=== PATIENT | male | born 1945 | race Caucasian/White ===

== ENCOUNTER 2017-01-15 20:36 | Inpatient (IN) | payer MEDICARE ==
[~2017-01-15] VITALS: Ht 177.8 cm; Wt 126.8 kg
--- NOTE | 2017-01-15 21:11 | PHYS DOC ---
Past Medical History Past Medical History: CAD, Diabetes-Type II, High Cholesterol, Heart Disease Additional Past Medical Histor: Crohns; sleep apnea Past Surgical History: Angioplasty, Appendectomy, Cholecystectomy Additional Past Surgical Histo: bowel resection Smoking: Chew Adult General Chief Complaint Chief Complaint: SYNCOPE HPI HPI Patient is a 71 year old male who presents with syncopal episode. He was at home sitting in his chair when he got up. He felt dizzy, sat back down again and then Got up and "passed out" per his . He fell completely forward. When EMS arrived his oxygen was 79-80% on room air; GCS 3 but pulse present. Rhythm strip was unremarkable. BP 124/70 and Dstick 116. They bagged him initially and then he responded. He has amnesia of the event. Earlier today he felt fine. He is under treatment for "pneumonia" and was started on Levaquin 01/08/17. He was seen today in follow up and the Levaquin was renewed for another 7 days. He is on an aspirin; no anticoagulants. He denies any chest pain prior, no SOA, no abdominal or back pain or headache. Since the syncopal event with fall he now has back pain. Mid to lower back. No injury to arms or legs. No recent travel. He has Crohns which he states has been well controlled. No blood in stool or urine. His PCP is Dr Artis. Review of Systems Review of Systems Constitutional: Denies fever or chills Eyes: Denies change in visual acuity, redness, or eye pain HENT: Denies nasal congestion or sore throat Respiratory: POS cough (under treatment) but no increase in shortness of breath Cardiovascular: No chest pain GI: Denies abdominal pain, nausea, vomiting, bloody stools; chronic diarrhea with no change from baseline (secondary to Crohns') : Denies dysuria or hematuria Musculoskeletal: Denies back pain or joint pain Integument: Denies rash or skin lesions Neurologic: Denies headache, focal weakness or sensory changes; POS syncope Current Medications Current Medications Current Medications Medications (Trade) Dose Ordered Sig/Jose Start Time Stop Time Status Last Admin Dose Admin Fentanyl Citrate (Fentanyl 2ml Vial) 50 mcg 1X ONCE 01/15/17 22:00 01/15/17 22:01 DC 01/15/17 21:52 50 MCG Heparin Sodium (Porcine) (Heparin Sodium) 1,750 unit PRN Q6HRS PRN 01/15/17 23:15 Heparin Sodium/ Dextrose 500 ml @ 0 mls/hr CONT PRN 01/15/17 23:15 Info (Anti-Coagulation Monitoring By Pharmacy) 1 each PRN DAILY PRN 01/15/17 23:30 Piperacillin Sod/ Tazobactam Sod 3.375 gm/Dextrose 50 ml @ 100 mls/hr 1X ONCE 01/15/17 23:30 01/15/17 23:59 Sodium Chloride 1,000 ml @ 150 mls/hr 1X ONCE 01/15/17 22:00 01/16/17 04:39 01/15/17 22:31 150 MLS/HR Warfarin Sodium (Coumadin Per Pharmacy) 1 each PRN DAILY PRN 01/15/17 23:15 Allergies Allergies Allergies Coded Allergies Type Severity Reaction Last Updated Verified azathioprine Allergy Intermediate n/v 01/15/17 Yes furosemide Allergy Intermediate "i dont know" 01/15/17 Yes infliximab Allergy Intermediate rash 01/15/17 Yes Physical Exam Physical Exam Constitutional: Well developed, well nourished, no acute distress, non-toxic appearance. HENT: Normocephalic, faint abrasion to left forehead, bilateral external ears normal, oropharynx moist, no oral exudates, nose normal. Hard of hearing. Eyes: PERRLA, EOMI, conjunctiva normal, no discharge. Neck: Normal range of motion, no tenderness, supple, no stridor. Cardiovascular:Heart rate regular rhythm, no murmur Lungs & Thorax: Bilateral breath sounds clear to auscultation Abdomen: Bowel sounds normal, soft, no tenderness, no masses, no pulsatile masses. Skin: Warm, dry, no erythema, no rash. Back: POS tenderness to lower thoracic and lumbar area, no CVA tenderness. Extremities: No tenderness, no cyanosis, no clubbing, ROM intact, no edema. Neurologic: Alert and oriented X 3, normal motor function, normal sensory function, no focal deficits noted. Current Patient Data Vital Signs Vital Signs Date Time Temp Pulse Resp B/P (MAP) Pulse Ox O2 Delivery O2 Flow Rate FiO2 01/15/17 21:52 16 95 Room Air 01/15/17 20:38 97.7 55 112/57 (75) 2.0 97.7 Lab Values Laboratory Tests Test 01/15/17 20:40 01/15/17 21:50 White Blood Count 13.7 x10^3/uL (4.0-11.0) H Red Blood Count 3.32 x10^6/uL (4.30-5.70) L Hemoglobin 10.7 g/dL (13.0-17.5) L Hematocrit 33.6 % (39.0-53.0) L Mean Corpuscular Volume 101 fL (79-100) H Mean Corpuscular Hemoglobin 32 pg (25-35) Mean Corpuscular Hemoglobin Concent 32 g/dL (31-37) Red Cell Distribution Width 15.7 % (11.5-14.5) H Platelet Count 237 x10^3/uL (140-400) Neutrophils (%) (Auto) 69 % (31-73) Lymphocytes (%) (Auto) 16 % (24-48) L Monocytes (%) (Auto) 11 % (0-9) H Eosinophils (%) (Auto) 3 % (0-3) Basophils (%) (Auto) 1 % (0-3) Neutrophils # (Auto) 9.4 x10^3uL (1.8-7.7) H Lymphocytes # (Auto) 2.2 x10^3/uL (1.0-4.8) Monocytes # (Auto) 1.5 x10^3/uL (0.0-1.1) H Eosinophils # (Auto) 0.4 x10^3/uL (0.0-0.7) Basophils # (Auto) 0.1 x10^3/uL (0.0-0.2) Prothrombin Time 14.9 SEC (11.7-14.0) H Prothrombin Time INR 1.2 (0.8-1.1) H D-Dimer (Lorena) 8.64 ug/mlFEU (0.00-0.50) H Sodium Level 139 mmol/L (136-145) Potassium Level 3.9 mmol/L (3.5-5.1) Chloride Level 103 mmol/L (98-107) Carbon Dioxide Level 20 mmol/L (21-32) L Anion Gap 16 (6-14) H Blood Urea Nitrogen 23 mg/dL (8-26) Creatinine 2.4 mg/dL (0.7-1.3) H Estimated GFR (Cockcroft-Gault) 26.8 BUN/Creatinine Ratio 10 (6-20) Glucose Level 109 mg/dL (70-99) H Calcium Level 8.5 mg/dL (8.5-10.1) Magnesium Level 1.5 mg/dL (1.8-2.4) L Total Bilirubin 0.5 mg/dL (0.2-1.0) Aspartate Amino Transferase (AST) 26 U/L (15-37) Alanine Aminotransferase (ALT) 33 U/L (16-63) Alkaline Phosphatase 81 U/L (46-116) Creatine Kinase 145 U/L (39-308) Creatine Kinase MB (Mass) 2.8 ng/mL (0.0-3.6) Creatine Kinase MB Relative Index 1.9 % (0-4) Troponin I Quantitative < 0.017 ng/mL (0.000-0.055) KJ-Ikv-D-Type Natriuretic Peptide 4474 pg/mL (0-124) H Total Protein 7.1 g/dL (6.4-8.2) Albumin 3.1 g/dL (3.4-5.0) L Albumin/Globulin Ratio 0.8 (1.0-1.7) L Lipase 60 U/L (73-393) L Ethyl Alcohol Level 134 mg/dL (0-10) H Lactic Acid Level 7.0 mmol/L (0.4-2.0) *H Laboratory Tests 01/15/17 20:40 Laboratory Tests 01/15/17 20:40 EKG EKG EKG interpreted by myself at 1 PM shows irregular rhythm, no definitive p waves noted, nonspecific ST changes. No ST elevation. no prior EKG to compare to. Radiology/Procedures Radiology/Procedures CXR interpreted by myself at 2135 PM with enlarged cardiac silhouette, elevated right hemidiaphragm, atelectasis bibasilar. Increased markings Right upper lobe and nodule noted (large) left lower lobe. NO prior CXR available here. [facility] [address] [place] [address] IMAGING REPORT Signed PATIENT: JESSE MCGEE ACCOUNT: [id number] : 1945 LOCATION: ER AGE: 71 SEX: M EXAM STATUS: REG ER ORD. PHYSICIAN: GURMEET BRODY MD REASON: syncope w fall PROCEDURE: CT HEAD AND CERVICAL SPINE WO CT HEAD AND CERVICAL SPINE WO, CT THORACIC SPINE WO CONTRAST, CT LUMBAR SPINE WO CONTRAST Clinical indications: SYNCOPE, FALL, history of HTN, neck pain and back pain. NONCONTRAST HEAD CT Technique: Noncontrast axial cross sectional scanning of the head was performed. PQRS compliance Statement One or more of the following individualized dose reduction techniques were utilized for these studies: 1. Automated exposure control 2. Adjustment of the mA and/or kV according to patient size 3. Use of iterative reconstruction technique Findings: No acute intracranial hemorrhage or midline shift or mass-effect or hydrocephalus or extra-axial fluid collection is seen. No focal hypodense area or sulci effacement is seen to indicate an acute infarct or edema radiographically. No skull fracture or pneumocephalus is seen. No opacification of the mastoid sinuses or the paranasal sinuses is seen. The maxillary sinuses are not completely seen in this study. Impression: No acute intracranial abnormality is seen. CERVICAL SPINE CT WITHOUT CONTRAST TECHNIQUE: Noncontrast helical CT scanning of the cervical spine was performed. Multiplanar 2-D reconstructions were generated. FINDINGS: No acute fracture or discitis or osteolytic process or anterolisthesis is seen. There are osteosclerotic lesions involving C4 and C5 and T1. Osseous metastatic disease is a possibility. IMPRESSION: No acute fracture. Osteosclerotic lesions which may represent osteosclerotic metastatic disease. Prostate cancer is a possibility. THORACIC SPINE CT WITHOUT CONTRAST TECHNIQUE: Noncontrast helical CT scanning of the thoracic spine was performed. Multiplanar 2-D reconstructions were generated. FINDINGS: There is a mild wedge compression fracture of T9. There is mild compression deformity of the superior endplate of T11 and T12. Hemangioma of T8 is seen. Degenerative cystic changes are evident. No osteolytic process or discitis is seen. IMPRESSION: Mild compression deformities of T9 and T11 and T12 of indeterminate age. LUMBAR SPINE CT WITHOUT CONTRAST TECHNIQUE: Noncontrast helical CT scanning of the lumbar spine was performed. Multiplanar 2-D reconstructions were generated. FINDINGS: There is diffuse osteolytic infiltrative process of the L3 vertebrae including the vertebral body and pedicles and the lamina on both sides. There is soft tissue extension extending into the spinal canal with severe narrowing of the spinal canal. This is consistent with osseous metastatic disease. No vertical compression deformity is seen here however. Multiple radiolucencies of the lumbar spine are seen. This could be due to osteolytic metastatic disease or diffuse osteoporosis. IMPRESSION: Diffuse infiltrative process of the L3 vertebrae consistent with osteolytic metastatic disease. There is circumferential involvement of the spinal canal at this level with severe spinal canal stenosis from tumor infiltration of the spinal canal. No loss of vertical height of this vertebral body is seen however. Multiple radiolucencies of the lumbar spine are seen which could be due to smaller osteolytic metastatic lesions or generalized osteoporosis. Electronically signed by: Bill Gutierrez MD (01/15/2017 10:45 PM) [facility] [id number] DICTATED and SIGNED BY: BILL GUTIERREZ MD DATE: 01/15/172229 CC: GURMEET BRODY MD; JINNY ARTIS MD ~ Course & Med Decision Making Course & Med Decision Making Met patient upon arrival by EMS to room 4. Discussed the initial findings by EMS. Patient presently is alert in no respiratory distress. Considerations for differential include cardiac event,pulmonary etiology including pulmonary emboli , neurologic event including subarachnoid hemorrhage and intracerebral bleed. His back pain appears to occurred after the syncope and fall. He's had prior compression fractures and will CT to make sure he has not cause further damage or injury. He has no neurologic findings at this time however. Fentanyl IV for back pain. At 5 PM: WBC elevated; Lactic acid and blood cultures added. NS at 150 cc/hr pending cardiac status evaluation. At [address]; pending results. D dimer is very elevated; due to elevated Cr will require VQ imaging in am. Will lovenox pending CT clearance on head and spine. At 2300 PM: CT results back. Metastatic disease of L3; UNKNOWN PRIMARY. Will admit for further work up and evaluation. CT head without contrast negative. Updated patient and family. Spoke w Dr Velasquez; prefers heparinization as CR is elevated. VQ in am. PSA added as etiology may be prostate. Lung primary highly likely due to smoking history. At 2315 PM: Lab called with Lactic acid 7.0. Blood cultures pending. He has been getting IV fluids. Zosyn IV added as he has been on Levaquin for one week outpatient. Lactic acidosis may be multifactorial. He also drinks ethanol and level elevated here which can cause a lactic acidosis. I have spoken with the patient and/or caregivers. I have explained the patient' s condition, diagnosis and treatment plan based on the information available to me at this time. I have answered the patient's and/or caregiver's questions and addressed any concerns. The patient and/or caregivers have as good an understanding of the patient's diagnosis, condition and treatment plan as can be expected at this point. The patient has been stabilized within the capability of the emergency department. The patient will be transported for further care and management or will be moved to an observation or inpatient service. I have communicated with the staff or medical practitioner taking over this patient's care. I have assessed this patient clinically and believe that their condition requires admission to the hospital. After consulting the admitting physician about this case, they have asked that I admit this patient to their service as an inpatient based on the clinical presentation and my impression. PERC Criteria Assessment: Age > 50: YES HR > 100: No 02 < 95%: YES (initially) H/o DVT/PE: No Recent trauma/surgery: No Hemoptysis No Exogenous Estrogen: No Unilateral Leg swelling: No Pretest probability > 15%: YES PERC rule not satisfied RAFA score for NSTEMI: Age 65: No=0; Yes=1 3 CAD risk factors: Family history of CAD, hypertension, hypercholesterolemia, diabetes, family history of CAD, or current smoker: No=0; Yes=1 Known CAD (stenosis 50%: No=0; Yes=1 ASA use in past 7 days: No=0; Yes=1 Severe angina ( 2 episodes in 24 hrs): No=0; Yes=[address] changes 0.5m: No=0; Yes=1 Positive cardiac marker: No=0; Yes=1 Score: 4 I spent approximately 30 minutes working and engaged directly in the patient care providing critical care evaluation this includes but not limited to time spent engaged in work directly related to the individual patients care. I spent time at the bedside, reviewing test results, discussing the case with staff, documenting the medical record and time spent with EMS discussing specific treatment issues when the patient presented and during his evaluation. This includes any discussion and updates with family members and/or patient. Roro Disclaimer Dragon Disclaimer This electronic medical record was generated, in whole or in part, using a voice recognition dictation system. Departure Departure Impression: Primary Impression: Syncope Additional Impressions: Hypoxia Elevated d-dimer Lactic acidosis Osteolytic lesion due to metastasis with unknown primary site Elevated serum creatinine Disposition: ADMITTED INPATIENT Admitting Physician: Meghan Velasquez Condition: GUARDED Referrals: JINNY ARTIS MD (PCP) Problem Qualifiers Primary Impression: Syncope Syncope type: unspecified Qualified Codes: R55 - Syncope and collapse GURMEET BRODY MD Jan 15, 2017 21:11
[2017-01-15] MEDS ORDERED: ATOR40TA59 PO (21:19)
[2017-01-15] MEDS ORDERED: METF-620 PO (21:19)
[2017-01-15] MEDS ORDERED: METO-247 PO (21:19)
[2017-01-15] MEDS ORDERED: GABA600T2 PO (21:20)
[2017-01-15] MEDS ORDERED: CLON0.1T PO (21:20)
[2017-01-15] MEDS ORDERED: FOLI1TAB16 PO (21:20)
[2017-01-15] MEDS ORDERED: CHOL4POW2 PO (21:21)
[2017-01-15] MEDS ORDERED: OMEP40CA5 PO (21:22)
[2017-01-15] MEDS ORDERED: ADAL40PE SQ (21:22)
[2017-01-15] MEDS ORDERED: B12/1TAB3 PO (21:22)
[2017-01-15] MEDS ORDERED: ASPI325T8 PO (21:24)
[2017-01-15] MEDS ORDERED: CHOL10003 PO (21:24)
[2017-01-15] MEDS ORDERED: HYDR1TAB14 PO (21:24)
[2017-01-15] MEDS ORDERED: LOPE2CAP88 PO (21:25)
[2017-01-15 21:27] LABS: BASO # 0.1 x10^3/uL (0.0-0.2); BASO % 1 % (0-3); EOS % 3 % (0-3); HEMATOCRIT 33.6 % (39.0-53.0); HEMOGLOBIN 10.7 g/dL (13.0-17.5); LYMPH # 2.2 x10^3/uL (1.0-4.8); LYMPH % 16 % (24-48); MEAN CORPUSCULAR HEMOGLOBIN 32 pg (25-35); MEAN CORPUSCULAR HGB CONC 32 g/dL (31-37); MEAN CORPUSCULAR VOLUME 101 fL (79-100); MONO % 11 % (0-9); NEUT % 69 % (31-73); PLATELET COUNT 237 x10^3/uL (140-400); RED BLOOD COUNT 3.32 x10^6/uL (4.30-5.70); RED CELL DISTRIBUTION WIDTH 15.7 % (11.5-14.5); WHITE BLOOD COUNT 13.7 x10^3/uL (4.0-11.0)
[2017-01-15 21:39] LABS: INR 1.2 (0.8-1.1); PROTHROMBIN TIME PATIENT 14.9 SEC (11.7-14.0)
[2017-01-15 21:43] LABS: CALCIUM 8.5 mg/dL (8.5-10.1); CREATININE 2.4 mg/dL (0.7-1.3); GFR 26.8; POTASSIUM 3.9 mmol/L (3.5-5.1)
[2017-01-15 21:48] LABS: ALBUMIN 3.1 g/dL (3.4-5.0); ALBUMIN/GLOBULIN RATIO 0.8 (1.0-1.7); MAGNESIUM 1.5 mg/dL (1.8-2.4); TOTAL BILIRUBIN 0.5 mg/dL (0.2-1.0); TOTAL PROTEIN 7.1 g/dL (6.4-8.2)
[2017-01-15 21:59] LABS: CKMB MASS 2.8 ng/mL (0.0-3.6)
[2017-01-15] MEDS ORDERED: fentaNYL PF VIAL 100 MCG/2 ML VIAL IV ONE (22:00)
[2017-01-15] MEDS ORDERED: IV NORMAL SALINE 1000ML BAG 1,000 ML IV ONE ×2 (22:00→23:45)
--- NOTE | 2017-01-15 22:49 | RAD ---
CT HEAD AND CERVICAL SPINE WO, CT THORACIC SPINE WO CONTRAST, CT LUMBAR SPINE WO CONTRAST Clinical indications: SYNCOPE, FALL, history of HTN, neck pain and back pain. NONCONTRAST HEAD CT Technique: Noncontrast axial cross sectional scanning of the head was performed. PQRS compliance Statement One or more of the following individualized dose reduction techniques were utilized for these studies: 1. Automated exposure control 2. Adjustment of the mA and/or kV according to patient size 3. Use of iterative reconstruction technique Findings: No acute intracranial hemorrhage or midline shift or mass-effect or hydrocephalus or extra-axial fluid collection is seen. No focal hypodense area or sulci effacement is seen to indicate an acute infarct or edema radiographically. No skull fracture or pneumocephalus is seen. No opacification of the mastoid sinuses or the paranasal sinuses is seen. The maxillary sinuses are not completely seen in this study. Impression: No acute intracranial abnormality is seen. CERVICAL SPINE CT WITHOUT CONTRAST TECHNIQUE: Noncontrast helical CT scanning of the cervical spine was performed. Multiplanar 2-D reconstructions were generated. FINDINGS: No acute fracture or discitis or osteolytic process or anterolisthesis is seen. There are osteosclerotic lesions involving C4 and C5 and T1. Osseous metastatic disease is a possibility. IMPRESSION: No acute fracture. Osteosclerotic lesions which may represent osteosclerotic metastatic disease. Prostate cancer is a possibility. THORACIC SPINE CT WITHOUT CONTRAST TECHNIQUE: Noncontrast helical CT scanning of the thoracic spine was performed. Multiplanar 2-D reconstructions were generated. FINDINGS: There is a mild wedge compression fracture of T9. There is mild compression deformity of the superior endplate of T11 and T12. Hemangioma of T8 is seen. Degenerative cystic changes are evident. No osteolytic process or discitis is seen. IMPRESSION: Mild compression deformities of T9 and T11 and T12 of indeterminate age. LUMBAR SPINE CT WITHOUT CONTRAST TECHNIQUE: Noncontrast helical CT scanning of the lumbar spine was performed. Multiplanar 2-D reconstructions were generated. FINDINGS: There is diffuse osteolytic infiltrative process of the L3 vertebrae including the vertebral body and pedicles and the lamina on both sides. There is soft tissue extension extending into the spinal canal with severe narrowing of the spinal canal. This is consistent with osseous metastatic disease. No vertical compression deformity is seen here however. Multiple radiolucencies of the lumbar spine are seen. This could be due to osteolytic metastatic disease or diffuse osteoporosis. IMPRESSION: Diffuse infiltrative process of the L3 vertebrae consistent with osteolytic metastatic disease. There is circumferential involvement of the spinal canal at this level with severe spinal canal stenosis from tumor infiltration of the spinal canal. No loss of vertical height of this vertebral body is seen however. Multiple radiolucencies of the lumbar spine are seen which could be due to smaller osteolytic metastatic lesions or generalized osteoporosis. Electronically signed by: Keegan Gutierrez MD (01/15/2017 10:45 PM) [facility]
[2017-01-15] MEDS ORDERED: fentaNYL PF VIAL 100 MCG/2 ML VIAL IV PRN (23:15)
[2017-01-15] MEDS ORDERED: HEPARIN for IV BOLUS 10,000 UNIT/10 ML VIAL. IV PRN ×2 (23:15)
[2017-01-15] MEDS ORDERED: PIP/TAZO PER PHARMACY MC PRN (23:15)
[2017-01-15] MEDS ORDERED: ONDANSETRON PF 4 MG/2 ML VIAL. IV PRN (23:15)
[2017-01-15] MEDS ORDERED: HEPARIN for IV BOLUS 10,000 UNIT/10 ML VIAL. IV ONE (23:30)
[2017-01-15] MEDS ORDERED: PIPERACILLIN/TAZOBACTAM 3.375 GM in IV DEXTROSE 5% 50 ML IV ONE (23:30)
[2017-01-15] MEDS ORDERED: ALBUTEROL SULFATE 2.5 MG/3 ML NEBU. NEB PRN (23:30)
[2017-01-16] MEDS ORDERED: MORPHINE SULFATE 2 MG/ML DISP.SYRIN. IV ONE
[2017-01-16] MEDS: HEPARIN 25,000UTS/500ML PREMIX 500 ML IV PRN ×3 (00:05→16:26)
[2017-01-16 01:05] VITALS: BP 151/68
[2017-01-16] MEDS ORDERED: PIP/TAZO PER PHARMACY MC PRN (02:45)
[2017-01-16 03:00] VITALS: BP 141/65
[2017-01-16] MEDS: ANTI-COAG MONITOR BY PHARMACY. MC PRN ×2 (03:30→10:17)
[2017-01-16] MEDS: fentaNYL PF VIAL 100 MCG/2 ML VIAL IV PRN ×6 (03:31→13:56)
[2017-01-16] MEDS: PIPERACILLIN/TAZO IV Push 2.25 GM VIAL. IVP SCH ×4 (05:17→23:09)
[2017-01-16 06:26] LABS: INR 1.3 (0.8-1.1); PROTHROMBIN TIME PATIENT 15.6 SEC (11.7-14.0)
[2017-01-16 07:00] VITALS: BP 126/60
--- NOTE | 2017-01-16 07:34 | EKG ---
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
--- NOTE | 2017-01-16 07:39 | RAD ---
Indication syncopal episode. Dizziness. Protocol study. Hypertension. A single view of the chest was obtained. No prior imaging of the chest is available. There is mild cardiomegaly. There is no gross congestive heart failure. A focal infiltrate is not seen. Significant pleural fluid is not present and there is no pneumothorax. Visualized bony structures appear grossly intact. IMPRESSION: Mild cardiomegaly. No acute or focal process seen in the chest
[2017-01-16] MEDS ORDERED: ANTI-COAG MONITOR BY PHARMACY. MC PRN (09:45)
[2017-01-16 10:44] VITALS: BP 139/63
--- NOTE | 2017-01-16 11:26 | PDOC2 ---
ADRIANNA RICE ABRASIVE SAWYER 01/16/17 1126: CARDIAC CONSULT DATE OF CONSULT Date of Consult DATE: 01/16/17 TIME: 11:05 REASON FOR CONSULT Reason for Consult: CHF REFERRING PHYSICIAN Referring Physician: Ron SOURCE Source: Chart review, Patient HISTORY OF PRESENT ILLNESS HISTORY OF PRESENT ILLNESS This is a 71 yo male admitted for complains of passing out and fall. Reports that his BG yesterday morning was 112, he took his metformin, had breakfast, took 2 shots of scotch as he does it everyday and took it at around 11AM, did not lunch, he fell asleep, did not have dinner and was about to watch the [employer] game, stood up and got dizzy and fell. He also did not drink much that day and he took his BP meds as well. Denies any seizure symptoms, and the only thing he remembered was dizziness. No incontinence, significant confusion, palpitations, nausea, vomiting or CP. He did feel SOA and per EMS he was noted with hypoxia. His back currently hurts and was noted with vertebral compression fractures. He is significant for CAD and follow with [facility] cardiology. Denies any prior VTE, past syncopal spells. He was recently started on antibiotics for suspicion of pneumonia about a week ago. Presently he remains wheezy with nonproductive cough and no fever or chills. He has ALESIA and uses CPAP but denies tobacco/COPD but exposed [facility] to second hand smoke via his . He also has hx of AFIB but this was noted after his exploratory laparotomy few years back and was noted with no recurrence hence no OAC/NOAC placed. PAST MEDICAL HISTORY Cardiovascular: CAD, HTN, Hyperlipidemia Pulmonary: Other (ALESIA) CENTRAL NERVOUS SYSTEM: Other (No pertinent history) GI: Inflam bowel disease (chrons) Heme/Onc: Other (chronic immunosuppression (Humira)) Psych: No pertinent hx Musculoskeletal: Osteoarthritis Rheumatologic: No pertinent hx Infectious disease: No pertinent hx ENT: No pertinent hx Renal/: Benign prostatic enlarg. (?) Endocrine: Diabetes (2) Dermatology: No pertinent hx PAST SURGICAL HISTORY Past Surgical History: Appendectomy, Cholecystectomy, Colon Resection, Other ( small bowel resection from past exploratory laparotomy) FAMILY HISTORY Family History: Coronary Artery Disease (mother and father) SOCIAL HISTORY Smoke: No ALCOHOL: heavy Drugs: None Lives: with Family () CURRENT MEDICATIONS CURRENT MEDICATIONS Current Medications Medications (Trade) Dose Ordered Sig/Jose Route PRN Reason Start Time Stop Time Status Last Admin Dose Admin Fentanyl Citrate (Fentanyl 2ml Vial) 50 mcg 1X ONCE IV 01/15/17 22:00 01/15/17 22:01 DC 01/15/17 21:52 Sodium Chloride 1,000 ml @ 150 mls/hr 1X ONCE IV 01/15/17 22:00 01/16/17 04:39 DC 01/15/17 22:31 Piperacillin Sod/ Tazobactam Sod 3.375 gm/Dextrose 50 ml @ 100 mls/hr 1X ONCE IV 01/15/17 23:30 01/15/17 23:59 DC 01/15/17 23:22 Heparin Sodium (Porcine) (Heparin Sodium) 9,450 unit 1X ONCE IV 01/15/17 23:30 01/15/17 23:31 DC 01/15/17 23:30 Heparin Sodium/ Dextrose 500 ml @ 0 mls/hr CONT PRN IV SEE I/O RECORD 01/15/17 23:15 01/16/17 08:17 Warfarin Sodium (Coumadin Per Pharmacy) 1 each PRN DAILY PRN MC PER PROTOCOL 01/15/17 23:15 01/16/17 10:20 Info (Anti-Coagulation Monitoring By Pharmacy) 1 each PRN DAILY PRN MC SEE COMMENTS 01/15/17 23:30 01/16/17 10:17 Fentanyl Citrate (Fentanyl 2ml Vial) 50 mcg PRN Q2HR PRN IV SEVERE PAIN 01/15/17 23:15 01/16/17 02:47 DC 01/16/17 01:33 Sodium Chloride 1,000 ml @ 150 mls/hr 1X ONCE IV 01/15/17 23:45 01/16/17 06:24 DC 01/16/17 01:34 Morphine Sulfate 2 mg 1X ONCE IV 01/16/17 00:00 01/16/17 00:01 DC 01/15/17 23:47 Fentanyl Citrate (Fentanyl 2ml Vial) 75 mcg PRN Q2HR PRN IV SEVERE PAIN 01/16/17 02:45 01/16/17 10:06 Piperacillin Sod/ Tazobactam Sod (Zosyn) 2.25 gm Q6HRS IVP 01/16/17 06:00 01/16/17 05:17 ALLERGIES ALLERGIES: Coded Allergies: azathioprine (Verified Allergy, Intermediate, n/v, 01/15/17) furosemide (Verified Allergy, Intermediate, "i dont know" , 01/15/17) infliximab (Verified Allergy, Intermediate, rash, 01/15/17) ROS Review of System 14 point ROS evaluated with pertinent positives noted per HPI PHYSICAL EXAM General: Alert, Oriented X3, Cooperative, mild distress HEENT: Atraumatic, Mucous membr. moist/pink Lungs: Other (diffuse wheeze) Heart: Other (AFIB) Abdomen: Soft, No tenderness, Other (obese) Extremities: No cyanosis, Other (1+ bilateral LE pitting edema) Skin: No breakdown, No significant lesion Neuro: Normal speech, Sensation intact Psych/Mental Status: Mental status NL, Mood NL MUSCULOSKELETAL: Osteoarthritic changes both hands VITALS VITALS Vital Signs Date Time Temp Pulse Resp B/P (MAP) Pulse Ox O2 Delivery O2 Flow Rate FiO2 01/16/17 10:44 98.3 62 18 139/63 (88) 96 Nasal Cannula 2.0 98.3 LABS Lab: Laboratory Tests Test 01/15/17 20:40 01/15/17 21:50 01/16/17 00:54 01/16/17 05:30 White Blood Count 13.7 x10^3/uL (4.0-11.0) Red Blood Count 3.32 x10^6/uL (4.30-5.70) Hemoglobin 10.7 g/dL (13.0-17.5) Hematocrit 33.6 % (39.0-53.0) Mean Corpuscular Volume 101 fL (79-100) Mean Corpuscular Hemoglobin 32 pg (25-35) Mean Corpuscular Hemoglobin Concent 32 g/dL (31-37) Red Cell Distribution Width 15.7 % (11.5-14.5) Platelet Count 237 x10^3/uL (140-400) Neutrophils (%) (Auto) 69 % (31-73) Lymphocytes (%) (Auto) 16 % (24-48) Monocytes (%) (Auto) 11 % (0-9) Eosinophils (%) (Auto) 3 % (0-3) Basophils (%) (Auto) 1 % (0-3) Neutrophils # (Auto) 9.4 x10^3uL (1.8-7.7) Lymphocytes # (Auto) 2.2 x10^3/uL (1.0-4.8) Monocytes # (Auto) 1.5 x10^3/uL (0.0-1.1) Eosinophils # (Auto) 0.4 x10^3/uL (0.0-0.7) Basophils # (Auto) 0.1 x10^3/uL (0.0-0.2) Prothrombin Time 14.9 SEC (11.7-14.0) 15.6 SEC (11.7-14.0) Prothromb Time International Ratio 1.2 (0.8-1.1) 1.3 (0.8-1.1) D-Dimer (Lorena) 8.64 ug/mlFEU (0.00-0.50) Sodium Level 139 mmol/L (136-145) Potassium Level 3.9 mmol/L (3.5-5.1) Chloride Level 103 mmol/L (98-107) Carbon Dioxide Level 20 mmol/L (21-32) Anion Gap 16 (6-14) Blood Urea Nitrogen 23 mg/dL (8-26) Creatinine 2.4 mg/dL (0.7-1.3) Estimated GFR (Cockcroft-Gault) 26.8 BUN/Creatinine Ratio 10 (6-20) Glucose Level 109 mg/dL (70-99) Calcium Level 8.5 mg/dL (8.5-10.1) Magnesium Level 1.5 mg/dL (1.8-2.4) Total Bilirubin 0.5 mg/dL (0.2-1.0) Aspartate Amino Transf (AST/SGOT) 26 U/L (15-37) Alanine Aminotransferase (ALT/SGPT) 33 U/L (16-63) Alkaline Phosphatase 81 U/L (46-116) Creatine Kinase 145 U/L (39-308) Creatine Kinase MB (Mass) 2.8 ng/mL (0.0-3.6) Creatine Kinase MB Relative Index 1.9 % (0-4) Troponin I Quantitative < 0.017 ng/mL (0.000-0.055) 0.042 ng/mL (0.000-0.055) CY-Ifk-N-Type Natriuretic Peptide 4474 pg/mL (0-124) Total Protein 7.1 g/dL (6.4-8.2) Albumin 3.1 g/dL (3.4-5.0) Albumin/Globulin Ratio 0.8 (1.0-1.7) Lipase 60 U/L (73-393) Ethyl Alcohol Level 134 mg/dL (0-10) Lactic Acid Level 7.0 mmol/L (0.4-2.0) 6.3 mmol/L (0.4-2.0) Heparin Anti-Xa Act, Unfractionated 1.10 IU/mL (0.30-0.70) Prostate Specific Antigen 2.36 ng/mL (0.00-4.00) ASSESSMENT/PLAN ASSESSMENT/PLAN 1. Syncope with traumatic fall: multifactorial as noted below 2. Possible PE: high probability per criteria 3. Acute respiratory failure: Aspiration? per PCP 4. Possible hypoglycemic reaction with dehydration 5. PAFIB: presently AFIB rate controlled. No home OAC/NOAC. 6. Acute diastolic CHF: mainly due to pulmonary issue. No vascular congestion. Diffuse wheeze. 7. Lactic acidosis: with use of metformin and ETOH and ANDREINA 8. Alcoholism: 2 shots of scotch daily 9. Chronic immunosuppression: on Humira for Chron's 10. ANDREINA: Cr 2.5 11. CAD: total x7 stents with last PCI 2002. Last MPI 2 yrs ago. 12. Possible CA with mets: suspicious with spine imaging with multiple vertebral compression fractures. NEW 13. ALESIA: CPAP compliant no COPD 14. Suspected recently with pneumonia: treated with levaquin. Per ID 15. HTN: controlled 16. HLP 17. DM2 18. Possible COPD via [facility] second hand smoking. Defer to PCP Recommendations 1. TTE today. Replace Mg. ID and Renal consult pending 2. Obtain cardiac records. Venous doppler 3. Albuterol x1. No vascular congestion, Maintain IV hydration, replace Mg 4. DC metformin. Hold ACEi. Heparin ongoing, V/Q scan this afternoon. 5. Continue with secondary prevention, supportive care. Critical care time 50 minutes Problems: JUNE RODRIGUES MD 01/17/17 1442: CARDIAC CONSULT ALLERGIES ALLERGIES: Coded Allergies: azathioprine (Verified Allergy, Intermediate, n/v, 01/15/17) furosemide (Verified Allergy, Intermediate, "i dont know" , 01/15/17) infliximab (Verified Allergy, Intermediate, rash, 01/15/17) ASSESSMENT/PLAN ASSESSMENT/PLAN Patient seen and examined 01/16/17 (late entry). Agree with MANAGER STERILE PROCESSING's assessment and plan. Atrial fibrillation rate controlled. Check 2-D echocardiogram to assess LV systolic function. CAD status clinically stable. Acute respiratory failure probably secondary to aspiration. No definite clinical evidence for congestive heart failure. Continue current workup to rule out PE. Plan for event monitor as an outpatient. Thank you for your consultation. Problems: ADRIANNA RICE APRN Jan 16, 2017 11:26 JUNE RODRIGUES MD Jan 17, 2017 14:42
[2017-01-16] MEDS ORDERED: MAGNESIUM SULFATE 2GM 50 ML IV ONE (11:30)
[2017-01-16] MEDS ORDERED: IOHEXOL 240 MG/ML 50ML VIAL. PO ONE (12:00)
[2017-01-16] MEDS ORDERED: CONTRAST GIVEN MC PRN (12:00)
[2017-01-16] MEDS ORDERED: MAGNESIUM SULFATE 2GM 50 ML IV PRN (13:15)
--- NOTE | 2017-01-16 13:32 | PDOC2 ---
CONSULT Date of Consult Date of Consult DATE: 01/16/17 TIME: 13:06 Reason for Consult Reason for Consult: ANDREINA Referring Physician Referring Physician: Dr woodruff Identification/Chief Complaint Chief Complaint Fall at home; weakness Problems: Source Source: Chart review, Patient History of Present Illness Reason for Visit: as dictated Current Problem List Problem List Problems Medical Problems: (1) Elevated d-dimer Status: Acute (2) Elevated serum creatinine Status: Acute (3) Hypoxia Status: Acute (4) Lactic acidosis Status: Acute (5) Osteolytic lesion due to metastasis with unknown primary site Status: Acute (6) Syncope Status: Acute Current Medications Current Medications Current Medications Fentanyl Citrate (Fentanyl 2ml Vial) 50 mcg 1X ONCE IV Last administered on 21:52; Start 01/15/17 at 22:00; Stop 01/15/17 at 22:01; Status DC Sodium Chloride 1,000 ml @ 150 mls/hr 1X ONCE IV Last administered on 22:31; Start 01/15/17 at 22:00; Stop 01/16/17 at 04:39; Status DC Piperacillin Sod/ Tazobactam Sod 3.375 gm/Dextrose 50 ml @ 100 mls/hr 1X ONCE IV Last administered on 01/15/17 23:22; Start 01/15/17 at 23:30; Stop 01/15 at 23:59; Status DC Heparin Sodium (Porcine) (Heparin Sodium) 9,450 unit 1X ONCE IV Last administered on 01/15/17 23:30; Start 01/15/17 at 23:30; Stop 01/15/17 at 23 :31; Status DC Heparin Sodium/ Dextrose 500 ml @ 0 mls/hr CONT PRN IV SEE I/O RECORD Last administered on 01/16/17 08:17; Start 01/15/17 at 23:15 Heparin Sodium (Porcine) (Heparin Sodium) 3,550 unit PRN Q6HRS PRN IV FOR UFH LEVEL LESS THAN 0.2; Start 01/15/17 at 23:15 Heparin Sodium (Porcine) (Heparin Sodium) 1,750 unit PRN Q6HRS PRN IV FOR UFH LEVEL 0.2 - 0.29; Start 01/15/17 at 23:15 Warfarin Sodium (Coumadin Per Pharmacy) 1 each PRN DAILY PRN MC PER PROTOCOL Last administered on 01/16/17 10:20; Start 01/15/17 at 23:15 Info (Anti-Coagulation Monitoring By Pharmacy) 1 each PRN DAILY PRN MC SEE COMMENTS Last administered on 01/16/17 10:17; Start 01/15/17 at 23:30 Ondansetron HCl (Zofran) 4 mg PRN Q8HRS PRN IV NAUSEA/VOMITING; Start at 23:15; Stop 01/16/17 at 23:14 Fentanyl Citrate (Fentanyl 2ml Vial) 50 mcg PRN Q2HR PRN IV SEVERE PAIN Last administered on 01/16/17 01:33; Start 01/15/17 at 23:15; Stop 01/16/17 at 02 :47; Status DC Piperacillin Sod/ Tazobactam Sod (Zosyn Per Pharmacy) 1 each PRN DAILY PRN MC SEE COMMENTS; Start 01/15/17 at 23:15; Stop 01/16/17 at 02:54; Status DC Sodium Chloride 1,000 ml @ 150 mls/hr 1X ONCE IV Last administered on 01:34; Start 01/15/17 at 23:45; Stop 01/16/17 at 06:24; Status DC Albuterol Sulfate (Ventolin Neb Soln) 2.5 mg PRN Q3HRS PRN NEB WHEEZING Last administered on 01/16/17 11:24; Start 01/15/17 at 23:30 Morphine Sulfate 2 mg 1X ONCE IV Last administered on 01/15/17 23:47; Start 01/16/17 at 00:00; Stop 01/16/17 at 00:01; Status DC Fentanyl Citrate (Fentanyl 2ml Vial) 75 mcg PRN Q2HR PRN IV SEVERE PAIN Last administered on 01/16/17 12:12; Start 01/16/17 at 02:45 Piperacillin Sod/ Tazobactam Sod (Zosyn Per Pharmacy) 1 each PRN DAILY PRN MC SEE COMMENTS; Start 01/16/17 at 02:45 Piperacillin Sod/ Tazobactam Sod (Zosyn) 2.25 gm Q6HRS IVP Last administered on 01/16/17 12:46; Start 01/16/17 at 06:00 Info (Anti-Coagulation Monitoring By Pharmacy) 1 each PRN DAILY PRN MC SEE COMMENTS; Start 01/16/17 at 09:45; Status Cancel Warfarin Sodium (Coumadin) 5 mg 1X WARF ONCE PO ; Start 01/16/17 at 16:00; Stop 01/16/17 at 16:01 Lactobacillus Rhamnosus (Culturelle) 1 cap BID PO ; Start 01/16/17 at 21:00 Magnesium Sulfate/ Dextrose 50 ml @ 25 mls/hr 1X ONCE IV Last administered on 01/16/17 12:45; Start 01/16/17 at 11:30; Stop 01/16/17 at 13:29 Linezolid 300 ml @ 300 mls/hr Q12HR IV Last administered on 01/16/17t 12:46; Start 01/16/17 at 12:00 Iohexol (Omnipaque 240 Mg/ml) 30 ml 1X ONCE PO ; Start 01/16/17 at 12:00; Stop 01/16/17 at 12:01; Status DC Info (Do NOT chart on this entry -- for MONITORING) 1 each PRN DAILY PRN MC SEE COMMENTS; Start 01/16/17 at 12:00; Stop 01/18/17 at 11:59 Active Scripts Active Reported Imodium A-D (Loperamide HCl) 2 Mg Capsule 2 Mg PO Aspirin 325 Mg Tablet 1 Tab PO DAILY Vitamin D3 (Cholecalciferol (Vitamin D3)) 1,000 Unit Tablet 2,000 Unit PO Vicodin Es 7.5-300 Mg Tablet (Hydrocodone Bit/Acetaminophen) 1 Each Tablet 1 Each PO Q6H PRN Humira (Adalimumab) 40 Mg/0.8 Ml Pen.ij.kit 1 Syr SQ Q2WKS Folbic Rf Tablet (B12/Levomefolate Calcium/B-6) 1 Each Tablet 1 Each PO Omeprazole 40 Mg Capsule. 1 Cap PO DAILY Cholestyramine Packet (Cholestyramine (With Sugar)) 4 Gm Powd.pack 4 Gm PO Gabapentin 600 Mg Tablet 600 Mg PO TID Folic Acid 1 Mg Tablet 1 Tab PO DAILY Clonidine Hcl 0.1 Mg Tablet 0.1 Mg PO BID Metformin Hcl 1,000 Mg Tablet 1,000 Mg PO BIDWMEALS Atorvastatin Calcium 40 Mg Tablet 1 Tab PO DAILY Metoprolol Succinate ( Xl ) (Metoprolol Succinate) 100 Mg Tab.er.24h 100 Mg PO BID Allergies Allergies: Coded Allergies: azathioprine (Verified Allergy, Intermediate, n/v, 01/15/17) furosemide (Verified Allergy, Intermediate, "i dont know" , 01/15/17) infliximab (Verified Allergy, Intermediate, rash, 01/15/17) ROS Review of System GEN: no Fevers no Chills EYES: no new Visual Complaints ENT: no EN Drainage no Hearing deficiets CVS: no Orthopnea no CP RESP: no SOB no GORE GI: no Nausea no Vomiting : no Dysuria no Urgency HEME: no easy bruising no Palp Ly Nodes NEURO + Focal Weakness (lower ext) no Sz PSYCH: no Suicidal Ideation ? Depression(after he was told about possible cancer) SKIN: no new Rashes ENDO: no Polyuria or Polydipsia no Hot/Cold Intolerance MU SK: ch Arthraigia (worse now in back) no Myalgia Physical Exam Physical Exam General Appearance: Awake Alert Oriented x 3 In no Distress Eyes: VIsion Unchanged Conjunctiva Normal EN: No EN Drainage Mucous Memb. moist Neck: no JVD no JVP Supple no Thyromegaly thick neck, double chin CVS: S1 S2 + Murmur No Gallop No Rub no Edema Resp: no Rales no Rhonchi no Acc. Muscle use GI: BAS +ve NO Bruit Non Tender Non Distended - obese : no CVA tenderness; no Suprapubic Tenderness SKIN: no Rashes Breast Exam deferred Mu.Sk: Limited ROM aniyah in lower ext (mostly due to pain) no Muscle Atrophy TTP in TL spine area Heme: Unable to palpate Obvious LAD no palp Splenomegaly NEURO: Good Strength and Tone Cranial Nerves II - XII grossly intact Psych: ? soemwaht Depressed no Active hallucination Vital Signs Vital Signs Date Time Temp Pulse Resp B/P (MAP) Pulse Ox O2 Delivery O2 Flow Rate FiO2 01/16/17 12:46 96 Nasal Cannula 2.0 01/16/17 10:44 98.3 62 18 139/63 (88) 98.3 Assessment & Plan ANDREINA - await Abd CT for further eval to R/o hydronephrosis - Metastatic dz is suspected. check LDH for TLS. Ct IVF for now. Current FLuid and E-lyte status does not necessitate emergent need for Dialysis. Will re-evaluate for Dialysis in am . hold off of IVC if possible Sev lactic Acidosis - reval levels, IVF as needed Ch. Anemia: Pt claims its due to Crohns. Check [place] - colonoscopy not due for another year ? SIRS/ Sepsis +/- Shock (^ed lactate) - unclear source - no fevers - on ABx - reval lactate Sev Back Pain - Pain mx discussed with son and Dr Perez Mild Met Acidosis - IVF with Bicarb HTN: Current BP meds reviewed. See orders for changes. Discussed Plan of Care and prognosis etc. at length with family (son) and Dr Perez Labs Labs Laboratory Tests Test 01/15/17 20:40 01/15/17 21:50 01/16/17 00:54 01/16/17 05:30 White Blood Count 13.7 x10^3/uL (4.0-11.0) Red Blood Count 3.32 x10^6/uL (4.30-5.70) Hemoglobin 10.7 g/dL (13.0-17.5) Hematocrit 33.6 % (39.0-53.0) Mean Corpuscular Volume 101 fL (79-100) Mean Corpuscular Hemoglobin 32 pg (25-35) Mean Corpuscular Hemoglobin Concent 32 g/dL (31-37) Red Cell Distribution Width 15.7 % (11.5-14.5) Platelet Count 237 x10^3/uL (140-400) Neutrophils (%) (Auto) 69 % (31-73) Lymphocytes (%) (Auto) 16 % (24-48) Monocytes (%) (Auto) 11 % (0-9) Eosinophils (%) (Auto) 3 % (0-3) Basophils (%) (Auto) 1 % (0-3) Neutrophils # (Auto) 9.4 x10^3uL (1.8-7.7) Lymphocytes # (Auto) 2.2 x10^3/uL (1.0-4.8) Monocytes # (Auto) 1.5 x10^3/uL (0.0-1.1) Eosinophils # (Auto) 0.4 x10^3/uL (0.0-0.7) Basophils # (Auto) 0.1 x10^3/uL (0.0-0.2) Prothrombin Time 14.9 SEC (11.7-14.0) 15.6 SEC (11.7-14.0) Prothromb Time International Ratio 1.2 (0.8-1.1) 1.3 (0.8-1.1) D-Dimer (Lorena) 8.64 ug/mlFEU (0.00-0.50) Sodium Level 139 mmol/L (136-145) Potassium Level 3.9 mmol/L (3.5-5.1) Chloride Level 103 mmol/L (98-107) Carbon Dioxide Level 20 mmol/L (21-32) Anion Gap 16 (6-14) Blood Urea Nitrogen 23 mg/dL (8-26) Creatinine 2.4 mg/dL (0.7-1.3) Estimated GFR (Cockcroft-Gault) 26.8 BUN/Creatinine Ratio 10 (6-20) Glucose Level 109 mg/dL (70-99) Calcium Level 8.5 mg/dL (8.5-10.1) Magnesium Level 1.5 mg/dL (1.8-2.4) Total Bilirubin 0.5 mg/dL (0.2-1.0) Aspartate Amino Transf (AST/SGOT) 26 U/L (15-37) Alanine Aminotransferase (ALT/SGPT) 33 U/L (16-63) Alkaline Phosphatase 81 U/L (46-116) Creatine Kinase 145 U/L (39-308) Creatine Kinase MB (Mass) 2.8 ng/mL (0.0-3.6) Creatine Kinase MB Relative Index 1.9 % (0-4) Troponin I Quantitative < 0.017 ng/mL (0.000-0.055) 0.042 ng/mL (0.000-0.055) NL-Byb-B-Type Natriuretic Peptide 4474 pg/mL (0-124) Total Protein 7.1 g/dL (6.4-8.2) Albumin 3.1 g/dL (3.4-5.0) Albumin/Globulin Ratio 0.8 (1.0-1.7) Lipase 60 U/L (73-393) Ethyl Alcohol Level 134 mg/dL (0-10) Lactic Acid Level 7.0 mmol/L (0.4-2.0) 6.3 mmol/L (0.4-2.0) Heparin Anti-Xa Act, Unfractionated 1.10 IU/mL (0.30-0.70) Prostate Specific Antigen 2.36 ng/mL (0.00-4.00) Test 01/16/17 10:55 Troponin I Quantitative 0.033 ng/mL (0.000-0.055) Laboratory Tests Test 01/15/17 20:40 01/15/17 21:50 01/16/17 00:54 01/16/17 05:30 White Blood Count 13.7 x10^3/uL (4.0-11.0) Red Blood Count 3.32 x10^6/uL (4.30-5.70) Hemoglobin 10.7 g/dL (13.0-17.5) Hematocrit 33.6 % (39.0-53.0) Mean Corpuscular Volume 101 fL (79-100) Mean Corpuscular Hemoglobin 32 pg (25-35) Mean Corpuscular Hemoglobin Concent 32 g/dL (31-37) Red Cell Distribution Width 15.7 % (11.5-14.5) Platelet Count 237 x10^3/uL (140-400) Neutrophils (%) (Auto) 69 % (31-73) Lymphocytes (%) (Auto) 16 % (24-48) Monocytes (%) (Auto) 11 % (0-9) Eosinophils (%) (Auto) 3 % (0-3) Basophils (%) (Auto) 1 % (0-3) Neutrophils # (Auto) 9.4 x10^3uL (1.8-7.7) Lymphocytes # (Auto) 2.2 x10^3/uL (1.0-4.8) Monocytes # (Auto) 1.5 x10^3/uL (0.0-1.1) Eosinophils # (Auto) 0.4 x10^3/uL (0.0-0.7) Basophils # (Auto) 0.1 x10^3/uL (0.0-0.2) Prothrombin Time 14.9 SEC (11.7-14.0) 15.6 SEC (11.7-14.0) Prothromb Time International Ratio 1.2 (0.8-1.1) 1.3 (0.8-1.1) D-Dimer (Lorena) 8.64 ug/mlFEU (0.00-0.50) Sodium Level 139 mmol/L (136-145) Potassium Level 3.9 mmol/L (3.5-5.1) Chloride Level 103 mmol/L (98-107) Carbon Dioxide Level 20 mmol/L (21-32) Anion Gap 16 (6-14) Blood Urea Nitrogen 23 mg/dL (8-26) Creatinine 2.4 mg/dL (0.7-1.3) Estimated GFR (Cockcroft-Gault) 26.8 BUN/Creatinine Ratio 10 (6-20) Glucose Level 109 mg/dL (70-99) Calcium Level 8.5 mg/dL (8.5-10.1) Magnesium Level 1.5 mg/dL (1.8-2.4) Total Bilirubin 0.5 mg/dL (0.2-1.0) Aspartate Amino Transf (AST/SGOT) 26 U/L (15-37) Alanine Aminotransferase (ALT/SGPT) 33 U/L (16-63) Alkaline Phosphatase 81 U/L (46-116) Creatine Kinase 145 U/L (39-308) Creatine Kinase MB (Mass) 2.8 ng/mL (0.0-3.6) Creatine Kinase MB Relative Index 1.9 % (0-4) Troponin I Quantitative < 0.017 ng/mL (0.000-0.055) 0.042 ng/mL (0.000-0.055) VN-Hzl-A-Type Natriuretic Peptide 4474 pg/mL (0-124) Total Protein 7.1 g/dL (6.4-8.2) Albumin 3.1 g/dL (3.4-5.0) Albumin/Globulin Ratio 0.8 (1.0-1.7) Lipase 60 U/L (73-393) Ethyl Alcohol Level 134 mg/dL (0-10) Lactic Acid Level 7.0 mmol/L (0.4-2.0) 6.3 mmol/L (0.4-2.0) Heparin Anti-Xa Act, Unfractionated 1.10 IU/mL (0.30-0.70) Prostate Specific Antigen 2.36 ng/mL (0.00-4.00) Test 01/16/17 10:55 Troponin I Quantitative 0.033 ng/mL (0.000-0.055) Images Images FINDINGS: There is diffuse osteolytic infiltrative process of the L3 vertebrae including the vertebral body and pedicles and the lamina on both sides. There is soft tissue extension extending into the spinal canal with severe narrowing of the spinal canal. This is consistent with osseous metastatic disease. No vertical compression deformity is seen here however. Multiple radiolucencies of the lumbar spine are seen. This could be due to osteolytic metastatic disease or diffuse osteoporosis. IMPRESSION: Diffuse infiltrative process of the L3 vertebrae consistent with osteolytic metastatic disease. There is circumferential involvement of the spinal canal at this level with severe spinal canal stenosis from tumor infiltration of the spinal canal. No loss of vertical height of this vertebral body is seen however. SERVANDO HARTMANN MD Jan 16, 2017 13:32
--- NOTE | 2017-01-16 13:44 | RAD ---
APPROVED REPORT Bilateral Lower Extremity Venous Study for DVT Patient Location: IN-PATIENT Indications Risk Factors Bed Rest Doppler Evaluation (Right) CFV (R): Spontaneous POP (R):Spontaneous Doppler Evaluation (Left) CFV (L):Spontaneous POP (L):Spontaneous Findings Carr scale images of the right and left common femoral vein, profunda heidi, SFA and popliteal vessels reveal compressibility. No thrombus is identified on grayscale and color doppler. Below knee veins not well visualized but demonstrate spontaenous flow. Critical Notification Critical Value: No <Conclusion> negative for DVT in the bilateral lower extremities.
--- NOTE | 2017-01-16 13:45 | RAD ---
Indication wheezing. A single view of the chest was obtained and is compared to a study one day earlier. There is mild cardiomegaly. There has not been a significant change in the appearance of the chest compared to the previous exam. A acute parenchymal process is not seen. The main pulmonary artery appears slightly prominent similar to the previous exam. Pulmonary hypertension not excluded. If hilar or mediastinal pathology is suspect CT could be performed. IMPRESSION: No acute finding in the chest. No significant change when compared to yesterday's exam
[2017-01-16 14:19] LABS: CHOLESTEROL/HDL RATIO 1.9
[2017-01-16 14:19] LABS: BASO % 0 % (0-3); EOS % 0 % (0-3); HEMOGLOBIN 8.7 g/dL (13.0-17.5); LYMPH # 0.7 x10^3/uL (1.0-4.8); LYMPH % 11 % (24-48); MEAN CORPUSCULAR HEMOGLOBIN 32 pg (25-35); MEAN CORPUSCULAR HGB CONC 32 g/dL (31-37); MEAN CORPUSCULAR VOLUME 99 fL (79-100); MONO % 13 % (0-9); NEUT % 76 % (31-73); PLATELET COUNT 162 x10^3/uL (140-400); RED BLOOD COUNT 2.73 x10^6/uL (4.30-5.70); RED CELL DISTRIBUTION WIDTH 15.3 % (11.5-14.5); WHITE BLOOD COUNT 6.6 x10^3/uL (4.0-11.0)
[2017-01-16 14:35] LABS: URIC ACID 5.6 mg/dL (3.5-7.2)
[2017-01-16 14:58] LABS: BACTERIA,URINE 0 /HPF (0-FEW); BILIRUBIN,URINE NEGATIVE (NEG); GLUCOSE,URINE NEGATIVE (NEG); NITRITE,URINE NEGATIVE (NEG); PH,URINE 5.5; PROTEIN,URINE NEGATIVE (NEG-TRACE); RBC,URINE 0 /HPF (0-2); SQUAMOUS EPITHELIAL CELL,UR MOD /LPF; UROBILINOGEN,URINE 0.2 mg/dL (0.2 mg/dL); WBC,URINE 0 /HPF (0-4)
--- NOTE | 2017-01-16 15:06 | RAD ---
Indication shortness of air. The mass. Non-IV contrast images through the chest, abdomen and pelvis were obtained. Some oral contrast is on board but there is only opacification of the most distal small bowel and the right and proximal transverse colon. Note is made of CT examinations of the head, cervical, thoracic and lumbar spine 01/15/2017. The examination of the lumbar spine demonstrated lytic pathology at L3. CT chest: Findings. There are occasional sclerotic foci seen at the cervical thoracic junction. These findings are compatible with those referenced on the recent CT. There are fractures of several mid left ribs which appear recent or acute. There is extensive coronary artery calcification. The thoracic aorta is unremarkable. Definite pathologic hilar or mediastinal adenopathy is not seen. A few mediastinal lymph nodes are noted which are likely incidental. There is some minimal volume loss at the lung bases likely reflecting atelectasis. There is a trace amount of pleural fluid bilaterally. CT abdomen and pelvis: Findings. Known pathology at L3 is reproduced. The liver and spleen appear unremarkable. Clips are noted in the gallbladder fossa. There is mild peripancreatic adenopathy. The largest node in this area measures approximately 2.6 cm. The clinical significance or etiology is not certain. No discrete pancreatic mass is seen. The adrenal glands appear normal. There is a well-defined mass adjacent to the left kidney measuring approximately 4.5 cm in greatest dimension. It is not definitely attached to the kidney but could represent an exophytic cyst. Mesenteric cyst is not excluded. The etiology ultimately is not clear. Ultrasound likely would be useful for additional evaluation and characterization. There is some stranding in the lower abdominal mesentery which may reflect old disease. A definite acute finding or worrisome mass in the pelvis is not seen. IMPRESSION: Known bony pathology in the cervical and lumbar spine, referenced on examination 01/15/2017 is reproduced. In addition there are several left rib fractures which appear recent or acute. Moderate peripancreatic adenopathy. The clinical significance or etiology is not certain. Stranding and irregularity involving the mesentery probably reflecting old disease. 4.5 cm low-density mass adjacent to the left kidney. The etiology is not clear. Ultrasound likely would be useful for additional evaluation and characterization PQRS Compliance Statement: One or more of the following individualized dose reduction techniques were utilized for this examination: 1. Automated exposure control 2. Adjustment of the mA and/or kV according to patient size 3. Use of iterative reconstruction technique
[2017-01-16 15:15] LABS: GFR 35.1
[2017-01-16 15:21] LABS: TOTAL BILIRUBIN 1.4 mg/dL (0.2-1.0)
[2017-01-16 15:39] LABS: CREATININE 1.9 mg/dL (0.7-1.3); POTASSIUM 4.2 mmol/L (3.5-5.1)
[2017-01-16 15:47] LABS: ALBUMIN 2.8 g/dL (3.4-5.0); ALBUMIN/GLOBULIN RATIO 0.7 (1.0-1.7); TOTAL PROTEIN 6.6 g/dL (6.4-8.2)
--- NOTE | 2017-01-16 15:55 | RAD ---
Indication elevated d-dimer. Shortness of breath Ventilation perfusion lung scan was performed. In order to evaluate ventilation 20 mCi of xenon was administered. In order to evaluate perfusion 6 mCi of technetium labeled MAA was administered. Note is made of a plain film of the chest earlier in the day. There is some minimal air trapping at the lung bases. No significant profusion anomaly is seen. A definite V/Q mismatch is not seen and the study is considered low probability for pulmonary embolus. IMPRESSION: Low probability VQ scan for pulmonary embolus
[2017-01-16] MEDS ORDERED: WARFARIN 5 MG TABLET. PO ONE (16:00)
[2017-01-16] MEDS: IV NORMAL SALINE 1000ML BAG 1,000 ML IV SCH (16:20)
--- NOTE | 2017-01-16 16:29 | CONS ---
DATE OF CONSULTATION: 01/16/2017 DATE OF SERVICE: 01/16/2017 REQUESTING PHYSICIAN: Dr. Velasquez. REASON FOR CONSULTATION: Lactic acidosis, and shortness of breath. HISTORY OF PRESENT ILLNESS: This is a 71-year-old gentleman with multiple medical problems who had recently had a diagnosis of pneumonia with 2 visits to the primary care and antibiotics. Evidently, he had a couple of drinks and did not eat, took his medication and he passed out. Hence, he was brought in. The patient's oxygen saturation was into 79%-80% on room air, blood pressure normal, glucose 116. The patient was found to have leukocytosis. The patient was also found to have a compression fracture as well as infiltrative process in the L3 vertebral body consistent with osteolytic metastatic disease. A compression fracture was at T9, T11, T12 level, which appears to be old. The patient has been admitted. The patient had lactic acidosis up to 7. The patient is short of breath. He is not comfortable with the back pain. He is receiving Zosyn and a consult has been requested. The patient denies any nausea, vomiting, diarrhea. Denies any fever, denies any chills. The patient is on Humira for his Crohn disease. PAST MEDICAL HISTORY: Positive for Crohn disease on Humira, coronary artery disease, diabetes, hyperlipidemia, obesity, sleep apnea, has had angioplasty, appendicectomy, cholecystectomy and bowel resection. SOCIAL HISTORY: Negative for smoking. Does drink 2 large drinks a day he says. ALLERGIES: ALLERGIC TO AZATHIOPRINE, FUROSEMIDE, INFLIXIMAB. REVIEW OF SYSTEMS: As per HPI. All systems are negative. CURRENT MEDICATIONS: Reviewed. PHYSICAL EXAMINATION: GENERAL: Alert and oriented gentleman in mild respiratory distress. VITAL SIGNS: Temperature normal, rest of the vital signs stable. HEENT: NAD. NECK: Supple, no JVP. No lymphadenopathy. LUNGS: Clear. CARDIOVASCULAR: S1, S2 regular. ABDOMEN: Benign. EXTREMITIES: No edema, cyanosis. SKIN: Unremarkable. The patient is uncomfortable. NEUROLOGIC: Intact. LABORATORY DATA: White count is 13,000, BUN and creatinine 23 and 2.4. His lactic acid recent one is 6.3. Alcohol level was 134. CT of the spine reviewed, also had chest x-ray unremarkable. IMPRESSION: 1. Lactic acidosis. The patient could have been septic or could have been secondary to tumor burden and having a liver problem with alcohol use. 2. Recent pneumonia, which was treated with antibiotics. 3. Renal insufficiency. 4. 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 We will continue Zosyn, add Zyvox. We will check cultures, need to have a CT chest, abdomen and pelvis, which I will get, supportive care and we will continue to follow. Thank you very much Dr. Velasquez for giving me the opportunity to participate in this patient's care. DMITRY HARTMANN MD DR: JACY/meagan JOB#: [id number] / [id number]
[2017-01-16] MEDS ORDERED: DEXAMETHASONE SOD PHOS 4 MG/ML VIAL IV ONE (16:45)
[2017-01-16] MEDS ORDERED: DEXTROSE 50% 25 GM / 50ML DISP.SYRIN. IV PRN (16:45)
[2017-01-16] MEDS ORDERED: LOPERAMIDE 2 MG CAPSULE PO PRN (16:45)
[2017-01-16] MEDS: MORPHINE SULFATE 2 MG/ML DISP.SYRIN. IV PRN ×2 (16:51→20:58)
[2017-01-16] MEDS: INSULIN ASPART 300 UNITS/3 ML INSULN.PEN SQ SCH (17:00)
[2017-01-16] MEDS: oxyCODONE/APAP 10/325 1 TAB TABLET PO PRN ×2 (18:12→23:00)
[2017-01-16 18:50] LABS: % SAT IRON 46 % (15-34); IRON,SERUM 103 ug/dL (65-175)
[2017-01-16 19:30] VITALS: BP 148/68
[2017-01-16] MEDS: LACTOBACILLUS RHAMNOSUS GG 1 CAPSULE. PO SCH (20:58)
[2017-01-16] MEDS: GABAPENTIN 300 MG CAPSULE. PO SCH (20:58)
[2017-01-16] MEDS: METOPROLOL SUCC 24HR ER 50 MG TAB.ER.24H. PO SCH (20:59)
[2017-01-16] MEDS: cloNIDine HCL 0.1 MG TABLET PO SCH (20:59)
[2017-01-16] MEDS ORDERED: METOPROLOL SUCC 24HR ER 100 MG TAB.ER.24H. PO SCH (21:00)
[2017-01-16] MEDS: ATORVASTATIN CALCIUM 40 MG TABLET. PO SCH (21:06)
[2017-01-16] MEDS: HEPARIN PF for SUB-Q USE 5,000 UNIT/0.5 ML VIAL. SQ SCH (21:10)
[2017-01-16] MEDS: diazePAM 5 MG TABLET PO PRN (22:59)
[2017-01-16 23:00] VITALS: BP 158/65
[2017-01-16] MEDS: DEXAMETHASONE SOD PHOS 4 MG/ML VIAL IV SCH (23:08)
[2017-01-17] VITALS (24 sets, daily range): BP systolic 100–163; BP diastolic 53–87
[2017-01-17] MEDS: IV NORMAL SALINE 1000ML BAG 1,000 ML IV SCH ×3 (02:24→23:26)
--- NOTE | 2017-01-17 03:07 | CONS ---
DATE OF CONSULTATION: 01/16/2017 REFERRING PHYSICIAN: Meghan Velasquez MD DIAGNOSIS: Expansile lytic lesion of L3, likely due to underlying malignancy associated with back pain. Patient is now scheduled for L3 biopsy on 01/17/2017. We were asked to see him regarding the role of palliative radiation therapy in his care. HISTORY OF PRESENT ILLNESS: On 01/15/2017, the patient was home with his , stood up, got dizzy and passed out, loss of consciousness. EMT was called and he was noted to be hypoxic. He gained consciousness, at which time he noted increased back pain from his chronic baseline with no change in his extremity strengths. He had chronic lower extremity numbness from peripheral neuropathy, which was unchanged. He had a recent course of antibiotics for suspicious findings for pneumonia. Currently, he is alert, cooperative. He has no headache, nausea or vomiting, no confusion at this time. No significant cough or shortness of breath or chest pain. PAST MEDICAL HISTORY: Remarkable for Crohn's disease, atrial fibrillation, traumatic fall in 2002 resulting in compression fractures, coronary artery disease, status post stent placement in the past. He has had no prior NH or stroke. He has diabetes mellitus, small bowel resection in the past for Crohn's disease, peripheral neuropathy from diabetes, hyperlipidemia, and hypertension. ALLERGIES: AZATHIOPRINE, FUROSEMIDE, INFLIXIMAB. MEDICATIONS: See hospital chart. SOCIAL HISTORY: for 50 years, 2 sons, 1 living here and 1 in [place], [place]. No cigarette use in the past, heavy alcohol use in the past. 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 No significant hobbies. PHYSICAL EXAMINATION: GENERAL: Revealed a pleasant, cooperative gentleman in no acute distress. HEENT EXAMINATION: Unremarkable. LYMPH NODES: He had no palpable cervical or supraclavicular adenopathy. LUNGS: Clear. HEART: Regular at this time. ABDOMINAL EXAMINATION: Revealed obesity without hepatomegaly, mass or tenderness. EXTREMITIES: Revealed no clubbing, cyanosis or edema. NEUROLOGIC: He moves his lower extremities spontaneously. He had cleared decreased sensation in the distal lower extremities to light touch and pinprick. DIAGNOSTIC STUDIES: CT scan of the chest, abdomen and pelvis was reviewed. There was left rib fractures likely from recent fall, sclerotic foci in the inferior cervical and upper thoracic spine region. No evidence for infiltrate or pneumonia. Abdomen revealed a 2.4 cm lymph node immediately posterior to the head of the pancreas with no other adenopathy. There was an exophytic cyst in the left kidney with bilateral renal atrophy. Spinal CT scan revealed sclerotic foci at C4, C5, T1, canal wall preserved, expansile osteolytic mass at L3. No compression fracture of L3. Spinal canal was essentially obliterated at that level by circumferential extension of soft tissue. Findings worrisome for malignancy at L3. CBC from 01/16/2017, hemoglobin 8.7, white count 6600, platelet count 162,000. Chemistry panel was within normal limits. Creatinine on admission was 2.4 with rehydration improved to 1.9, calcium 8.0. PSA 2.36 ASSESSMENT AND PLAN: In summary, my impression is that of L3 osteolytic mass with soft tissue extension, worrisome for malignancy at that level. He has also sclerotic small lesions at C4, C5 and T1, possibly from the same underlying etiology. He has anemia worsened from rehydration of uncertain significance at this time. He currently is neurologically intact with his baseline level of diabetic neuropathy. Steroid treatment has been initiated which is appropriate. At this time given the findings thus far, his presentation is most consistent with possible multiple myeloma or lymphoma. I recommend diagnostic biopsy of L3 to ascertain its etiology. Dr. Servin will also reevaluate his anemia. His peripancreatic lymph node may be from underlying Crohn's disease and may be unrelated. A baseline bone scan would be of value for full skeletal assessment. In the event malignancy is confirmed at L3 and may be need neurosurgical evaluation as well. As a baseline, we would likely recommend palliative radiation at that site to stabilize L3 and preserve neurologic function. I discussed this in detail with the son. I discussed this in general with the patient as well. I anticipate L3 biopsy to occur on 01/17/2017 and we will continue to follow the patient with you. Thank you for allowing us to participate in his evaluation. CHERRY CINTRON MD DR: BRET/meagan JOB#: [id number] / [id number] PINEDA Chavira MD
--- NOTE | 2017-01-17 04:45 | CONS ---
DATE OF CONSULTATION: 01/16/2017 CONSULTATION REQUESTED BY: Dr. Meghan Velasquez. REASON FOR CONSULTATION: L3 vertebral bone lesion concerning for malignancy. HISTORY OF PRESENT ILLNESS: The patient is a 71-year-old gentleman who had an episode of passing out and he fell. He was brought into the Emergency Room and admitted to [facility] on 01/15/2017. He did not have any seizures. No incontinence. No confusion or headaches. He did feel short of breath and he was noted to have hypoxia per EMS. He reports having had back pain which was getting worse and he does have history of vertebral compression fracture. He also has been on antibiotics recently for pneumonia. He denies any significant loss of weight or loss of appetite. No fevers, chills or night sweats. No hematemesis, melena, hematochezia, no hemoptysis or hematuria. No nose bleeds or gum bleeding. He underwent further workup with a lumbar spine CT on 01/15/2017 which revealed diffuse infiltrative process in the L3 vertebrae consistent with osteolytic metastatic disease. There is circumferential involvement of the spinal canal at this level and severe spinal stenosis from T1 infiltration of the spinal canal. Multiple radiolucencies of the lumbar spine are also seen, which could be from metastatic lesions or osteoporosis. Compression deformities of T9, T11, T12 were also noted. Osteosclerotic lesions were also noted in the cervical spine CT. He underwent CT scan of the chest, abdomen and pelvis on 01/16/2017 that revealed pathology in the spine as described above. There was moderate peripancreatic lymphadenopathy and the significance is uncertain. Stranding and irregularity was noted involving the mesentery probably reflecting old disease. A 4.5 cm left kidney density is noted which is of unclear etiology, an ultrasound was recommended. He also had a PSA performed on 01/16/2017 and it was normal at 2.36. I was asked to see the patient for concern of malignancy. PAST MEDICAL HISTORY: Coronary artery disease, hypertension, hyperlipidemia, obstructive sleep apnea, inflammatory bowel disease/Crohn's disease, osteoarthritis, benign prostatic enlargement, and diabetes mellitus. PAST SURGICAL HISTORY: Appendectomy, cholecystectomy, colon resection, small bowel resection from exploratory laparotomy. FAMILY HISTORY: Positive for coronary artery disease. SOCIAL HISTORY: He has a history of alcohol use. He does not smoke cigarettes. REVIEW OF SYSTEMS: A 12-point review of system was performed. Pertinent positives are mentioned in the history of present illness. Rest of the system review is negative. PHYSICAL EXAMINATION: GENERAL APPEARANCE: The patient is a 71-year-old gentleman who is well built and nourished, and in no acute cardiorespiratory distress. VITAL SIGNS: Blood pressure 139/63, temperature 98.3. HEENT: Head is atraumatic, normocephalic. Eyes: No icterus. NECK: Supple. CHEST: Bilaterally symmetrical. HEART: S1, S2 normal. ABDOMEN: Soft, nontender. CENTRAL NERVOUS SYSTEM: No focal deficits. LYMPHATICS: No lymphadenopathy. SKIN: No rashes. PSYCHOLOGIC: Mood and affect are appropriate. MUSCULOSKELETAL: No joint effusions. LABORATORY DATA: WBC 6.6, hemoglobin 8.7, platelet count 162, reticulocyte count is 0.7, sodium 139, potassium 3.9, creatinine 2.4, total bilirubin 0.5, calcium 8.5, AST 26, ALT 33, alkaline phosphatase 81, PSA 2.36. IMPRESSION AND PLAN: 1. Osteolytic bone lesions. This is clinically concerning for metastatic focus. He also has multiple other lesions in the spine. I discussed in detail with the patient and family. Since the CT chest, abdomen and pelvis did not reveal a clear primary focus I would pursue with a biopsy of the L3 vertebral lesion. This would be essential for to make a diagnosis. I reviewed the risks and benefits and he understands and agrees to proceed with it. I also discussed with Dr. Billingsley and the patient has already been started on Decadron 4 mg q. 6 hours. I will also consult Radiation Oncology because of encroachment upon the spinal canal. He does not have any symptoms of spinal cord compression. 2. Left renal lesion, plan ultrasound of the kidney. 3. Bone lesions, plan for a bone scan. 4. Anemia. This is likely secondary to malignancy. I will continue to monitor. I discussed with registered nurse. I discussed that Dr. Billingsley. I discussed with the patient's son and his nephew. PINEDA FIELDS MD DR: ADAIR/meagan JOB#: [id number] / [id number] JENNY
--- NOTE | 2017-01-17 05:17 | CONS ---
DATE OF CONSULTATION: PRIMARY PHYSICIAN: Dr. Perez HISTORY OF PRESENT ILLNESS: The patient is a 71-year-old gentleman who was recently treated for possible pneumonia. He is known to have long-standing Crohn's and anemia. He is also known to be a type 2 diabetic. He claims he had a recent weight loss and then has been gaining weight of late. He apparently was at home sitting in his chair. When he got up, he felt dizzy, set back down and apparently passed out. He does not recollect what happened when he stood up. He has not had orthostasis that he is aware of. Per the ER, he was noted to have fallen forward. He was noted to be hemodynamically stable with adequate fingersticks. His creatinine here is noted to be 2.4 at presentation. He is not aware of known renal insufficiency. Denies excessive NSAID use per se. We are asked to see him for his elevated creatinine. He did get a CT scan of his back and spine and findings were reviewed. PAST MEDICAL AND SURGICAL HISTORY: Cataract extractions; coronary artery disease, status post stenting x 7; known heart murmur; chronic low back pain; neck pain; numerous spine surgeries in the past; Crohn disease; hiatal hernia; previous bowel surgery; cholecystectomy; long-standing diabetes; previous alcoholism; depression; previous history of tobaccoism; exogenous obesity; hyperlipidemia. FAMILY HISTORY: Positive for heart disease and skin cancer. SOCIAL HISTORY: , lives with his . Also, includes occasional alcohol use and cigarette smoking a few years ago. For rest of details, see electronic records. SERVANDO HARTMANN MD DR: RENETTA/meagan JOB#: [id number] / [id number]
[2017-01-17] MEDS: DEXAMETHASONE SOD PHOS 4 MG/ML VIAL IV SCH ×4 (05:29→23:44)
[2017-01-17] MEDS: MORPHINE SULFATE 2 MG/ML DISP.SYRIN. IV PRN ×2 (05:29→20:17)
[2017-01-17] MEDS: PIPERACILLIN/TAZO IV Push 2.25 GM VIAL. IVP SCH ×2 (05:30→12:01)
[2017-01-17] MEDS: HEPARIN PF for SUB-Q USE 5,000 UNIT/0.5 ML VIAL. SQ SCH ×3 (05:30→23:25)
[2017-01-17 06:12] LABS: HEMATOCRIT 23.9 % (39.0-53.0); HEMOGLOBIN 7.8 g/dL (13.0-17.5); RED BLOOD COUNT 2.42 x10^6/uL (4.30-5.70); RED CELL DISTRIBUTION WIDTH 15.2 % (11.5-14.5); WHITE BLOOD COUNT 5.7 x10^3/uL (4.0-11.0)
[2017-01-17 06:34] LABS: ALBUMIN 2.9 g/dL (3.4-5.0); CALCIUM 8.1 mg/dL (8.5-10.1); CREATININE 1.5 mg/dL (0.7-1.3); GFR 46.1; PHOSPHORUS 3.5 mg/dL (2.6-4.7); POTASSIUM 4.7 mmol/L (3.5-5.1)
--- NOTE | 2017-01-17 07:27 | HP ---
ADMIT DATE: 01/16/2017 CHIEF COMPLAINT: Syncope. HISTORY OF PRESENT ILLNESS: The patient is a 71-year-old gentleman with past medical history of CAD, diabetes as well as Crohn's, who presented after a syncopal episode at home. He relates that he was sitting in a chair, got up, felt dizzy and fell back into his chair. When he tried to get up again, he "passed out." He apparently fell forward. By the time EMS arrived, his pulse ox was noted to be about 80 with GCS 3. Pulses and rhythm strip unremarkable with good blood pressure and blood sugars. He was brought into the Emergency Room and further evaluated. He was found with elevated D-dimer and therefore admitted for suspicion of PE. PAST MEDICAL HISTORY: CAD, hypertension, hyperlipidemia, diabetes mellitus, BPH, history of multiple compression fractures in the 80s after a fall. PAST SURGICAL HISTORY: He is status post colon resection for Crohn's, appendectomy and cholecystectomy. FAMILY HISTORY: Positive for CAD in both parents. SOCIAL HISTORY: Lives with his . Never smoked. Continues to drink alcohol fairly heavily. ALLERGIES: AZATHIOPRINE, FUROSEMIDE, INFLIXIMAB. HOME MEDICATIONS: MAR reconciled with home medications. REVIEW OF SYSTEMS: His main complaint is severe lower back pain, which is responding to the fentanyl; however, medication does not last longer than 45 minutes for him. He requests a different pain med. Denies any other issues in rest of organ system review. PHYSICAL EXAMINATION: VITAL SIGNS: From today show a blood pressure of 139/63, heart rate of 62, respiratory rate at 18. He is afebrile. GENERAL: This is a morbidly obese 71-year-old gentleman, alert and oriented, in mild distress secondary to back pain. HEENT: Shows no scleral icterus. NECK: Supple, without any lymphadenopathy. LUNGS: Clear anteriorly. HEART: Regular rate and rhythm. ABDOMEN: Has very active bowel sounds, soft, nontender. EXTREMITIES: Show no edema. LABORATORY DATA: CBC with a WBC of 6.6, hemoglobin 8.7, MCV of 99, platelets of 162. Chemistries with a BUN and creatinine of 23 and 1.9, which is improved from his creatinine at admit of 2.4. Electrolytes with a sodium of 133, decreased from 139 at admission. Other electrolytes within normal limits. Total bilirubin 1.4. Initial lactic acid 6.3, repeat 2.5. IMAGING: V/Q scan shows low probability for PE. A spine screen with back pain shows a diffuse infiltrative process at the L3 vertebra consistent with osteolytic metastatic disease. Circumferential involvement of the spinal canal at this level with severe spinal canal stenosis from tumor infiltration of the spinal cord. No loss of vertical height on this vertebral body is seen; however, multiple radiolucencies in the lumbar spine are seen, which could be due to smaller osteolytic metastatic lesions with generalized osteoporosis. Thoracic spine shows mild compression deformities at T9, T11 and T12 of indeterminate age. Cervical spine without acute fracture, osteosclerotic lesions, possibly metastatic disease. A CT of the chest, abdomen and pelvis without contrast shows bony abnormality known from spine screen as well as several left rib fractures, which appear recent or acute. There is moderate peripancreatic adenopathy, stranding and irregularity involving the mesentery, probably reflecting old disease (Crohn's) is a 4.5 cm low density mass adjacent to the left kidney, etiology is unclear. Chest findings are otherwise unremarkable. ASSESSMENT AND PLAN: The patient is a 71-year-old gentleman presenting after a syncopal event and with abnormal findings on his CT spine. 1. Syncope is of unknown etiology. Although D-dimer was suspicious, no evidence of PE can be found on V/Q scan. We will therefore stop the IV heparin. Place him on subcutaneous heparin for prophylaxis. Cardiology has been consulted. Echocardiogram is pending. We will await further workup. 2. Abnormal findings, especially in his lumbar spine. There is mention of a fairly large replacing lytic lesion at L3. Highly suspicious for malignancy. Hence, consult to Oncology for further evaluation. CT of the chest, abdomen and pelvis unfortunately was performed without any contrast and is therefore less than informative. Abnormalities there such as mesenteric lymphadenopathy, may be attributable to Crohn's. Await Heme/Onc consult. In the meantime, we will treat him with IV morphine and Percocet and fentanyl is suboptimal for him. We will also get him started on Decadron IV for now. The patient's other chronic issues including diabetes will be addressed with continuation of home medication, say for metformin in the acute setting. We will replace with insulin sliding scale. Blood pressure medications will be continued. He does have chronic renal insufficiency, although baseline is not known at this time. We will monitor closely with IV fluids and other medications. NELL FERNÁNDEZ MD DR: CAMRYN/nts JOB#: [id number] / [id number] JINNY Henderson MD MTDD
[2017-01-17] MEDS: INSULIN ASPART 300 UNITS/3 ML INSULN.PEN SQ SCH ×3 (08:00→17:37)
--- NOTE | 2017-01-17 08:13 | PDOC ---
Infectious Disease Note Subjective Subjective pt feeling ok, going for spine biopsy today ROS ROS GEN: Denies fevers, chills, sweats HEENT: Denies blurred vision, sore throat CV: Denies chest pain RESP: Denies shortness of air, cough GI: Denies n/v/d NEURO: Denies confusion, dizziness MSK: Denies weakness, joint pain/swelling Vital Sign Vital Signs Vital Signs Date Time Temp Pulse Resp B/P (MAP) Pulse Ox O2 Delivery O2 Flow Rate FiO2 01/17/17 05:59 16 100 Nasal Cannula 2.0 01/17/17 03:05 98.8 67 108/71 (83) 98.8 Physical Exam PHYSICAL EXAM GENERAL: NAD, Alert HEENT: PERRL, OC/OP NECK: Supple, no JVD, no LN LUNGS: Clear HEART: S1S2, no gallop, no murmur ABD: Soft, NT, no organomegaly, no rebound EXT: No edema, no cyanosis CHILD CARE AIDE: Alert, oriented x 3, no focal neurologic deficit SKIN: No rash IV: ok Labs Lab Laboratory Tests Test 01/16/17 10:55 01/16/17 13:50 01/16/17 14:00 01/16/17 17:38 Troponin I Quantitative 0.033 ng/mL (0.000-0.055) White Blood Count 6.6 x10^3/uL (4.0-11.0) Red Blood Count 2.73 x10^6/uL (4.30-5.70) Hemoglobin 8.7 g/dL (13.0-17.5) Hematocrit 27.0 % (39.0-53.0) Mean Corpuscular Volume 99 fL (79-100) Mean Corpuscular Hemoglobin 32 pg (25-35) Mean Corpuscular Hemoglobin Concent 32 g/dL (31-37) Red Cell Distribution Width 15.3 % (11.5-14.5) Platelet Count 162 x10^3/uL (140-400) Neutrophils (%) (Auto) 76 % (31-73) Lymphocytes (%) (Auto) 11 % (24-48) Monocytes (%) (Auto) 13 % (0-9) Eosinophils (%) (Auto) 0 % (0-3) Basophils (%) (Auto) 0 % (0-3) Neutrophils # (Auto) 5.0 x10^3uL (1.8-7.7) Lymphocytes # (Auto) 0.7 x10^3/uL (1.0-4.8) Monocytes # (Auto) 0.8 x10^3/uL (0.0-1.1) Eosinophils # (Auto) 0.0 x10^3/uL (0.0-0.7) Basophils # (Auto) 0.0 x10^3/uL (0.0-0.2) Reticulocyte Count (auto) 0.7 % (0.5-2.5) Heparin Anti-Xa Act, Unfractionated 0.45 IU/mL (0.30-0.70) Sodium Level 133 mmol/L (136-145) Potassium Level 4.2 mmol/L (3.5-5.1) Chloride Level 101 mmol/L (98-107) Carbon Dioxide Level 23 mmol/L (21-32) Anion Gap 9 (6-14) Blood Urea Nitrogen 23 mg/dL (8-26) Creatinine 1.9 mg/dL (0.7-1.3) Estimated GFR (Cockcroft-Gault) 35.1 BUN/Creatinine Ratio 12 (6-20) Glucose Level 156 mg/dL (70-99) Lactic Acid Level 2.5 mmol/L (0.4-2.0) Uric Acid 5.6 mg/dL (3.5-7.2) Calcium Level 8.0 mg/dL (8.5-10.1) Iron Level 103 ug/dL (65-175) Total Iron Binding Capacity 222 ug/dL (250-450) Iron Saturation 46 % (15-34) Ferritin 166 ng/mL (26-388) Total Bilirubin 1.4 mg/dL (0.2-1.0) Aspartate Amino Transf (AST/SGOT) 39 U/L (15-37) Alanine Aminotransferase (ALT/SGPT) 35 U/L (16-63) Alkaline Phosphatase 76 U/L (46-116) Lactate Dehydrogenase 168 U/L (85-227) Creatine Kinase 422 U/L (39-308) Total Protein 6.6 g/dL (6.4-8.2) Albumin 2.8 g/dL (3.4-5.0) Albumin/Globulin Ratio 0.7 (1.0-1.7) Urine Collection Type Unknown Urine Color Yellow Urine Clarity Clear Urine pH 5.5 Urine Specific [place] >=1.030 Urine Protein Negative mg/dL (NEG-TRACE) Urine Glucose (UA) Negative mg/dL (NEG) Urine Ketones (Stick) Negative mg/dL (NEG) Urine Blood Negative (NEG) Urine Nitrite Negative (NEG) Urine Bilirubin Negative (NEG) Urine Urobilinogen Dipstick 0.2 mg/dL (0.2 mg/dL) Urine Leukocyte Esterase Negative (NEG) Urine RBC 0 /HPF (0-2) Urine WBC 0 /HPF (0-4) Urine Squamous Epithelial Cells Mod /LPF Urine Amorphous Sediment Present /HPF Urine Bacteria 0 /HPF (0-FEW) Urine Mucus Mod /LPF Glucose (Fingerstick) 134 mg/dL (70-99) Test 01/16/17 20:49 01/17/17 06:00 01/17/17 07:10 Glucose (Fingerstick) 139 mg/dL (70-99) 166 mg/dL (70-99) White Blood Count 5.7 x10^3/uL (4.0-11.0) Red Blood Count 2.42 x10^6/uL (4.30-5.70) Hemoglobin 7.8 g/dL (13.0-17.5) Hematocrit 23.9 % (39.0-53.0) Mean Corpuscular Volume 99 fL (79-100) Mean Corpuscular Hemoglobin 32 pg (25-35) Mean Corpuscular Hemoglobin Concent 33 g/dL (31-37) Red Cell Distribution Width 15.2 % (11.5-14.5) Platelet Count 120 x10^3/uL (140-400) Sodium Level 136 mmol/L (136-145) Potassium Level 4.7 mmol/L (3.5-5.1) Chloride Level 102 mmol/L (98-107) Carbon Dioxide Level 26 mmol/L (21-32) Anion Gap 8 (6-14) Blood Urea Nitrogen 20 mg/dL (8-26) Creatinine 1.5 mg/dL (0.7-1.3) Estimated GFR (Cockcroft-Gault) 46.1 Glucose Level 177 mg/dL (70-99) Lactic Acid Level 1.8 mmol/L (0.4-2.0) Calcium Level 8.1 mg/dL (8.5-10.1) Phosphorus Level 3.5 mg/dL (2.6-4.7) Magnesium Level 1.8 mg/dL (1.8-2.4) Albumin 2.9 g/dL (3.4-5.0) Micro BC neg Objective Assessment Lactic acidosis Recent pneumonia Renal insufficiency Lumbar spine ? mets SOB Plan Plan of Care d/c zosyn , zyvox ct chest, abd and pelvis noted culture neg so far DMITRY HARTMANN MD Jan 17, 2017 08:13
[2017-01-17] MEDS: PANTOPRAZOLE 40 MG TABLET.DR. PO SCH (08:54)
[2017-01-17] MEDS: GABAPENTIN 300 MG CAPSULE. PO SCH ×3 (08:54→20:06)
[2017-01-17] MEDS: LACTOBACILLUS RHAMNOSUS GG 1 CAPSULE. PO SCH ×2 (08:54→20:05)
[2017-01-17] MEDS: cloNIDine HCL 0.1 MG TABLET PO SCH ×2 (08:54→20:06)
[2017-01-17] MEDS: diazePAM 5 MG TABLET PO PRN ×2 (08:55→20:05)
[2017-01-17] MEDS: oxyCODONE/APAP 10/325 1 TAB TABLET PO PRN ×4 (08:55→23:22)
--- NOTE | 2017-01-17 09:39 | RAD ---
Renal ultrasound, 01/16/2017: History: Acute and chronic renal failure The right kidney measures 9.1 cm in length while the left kidney measures 9.3 cm. There is a 4.7 cm exophytic cyst arising from the lateral aspect of the left kidney. There is bilateral renal cortical scarring. The renal parenchymal echogenicity is otherwise within normal limits. There is no evidence of hydronephrosis. Limited views of the urinary bladder demonstrate echogenic debris within the urine. The bladder is otherwise unremarkable. IMPRESSION: 1. Small left renal cyst. 2. Bilateral renal cortical scarring. 3. No evidence of renal obstruction. 4. Echogenic debris within the urinary bladder.
[2017-01-17] MEDS ORDERED: MIDAZOLAM HCL/PF 2 MG/2 ML VIAL. ONE (10:08)
[2017-01-17] MEDS ORDERED: fentaNYL PF VIAL 100 MCG/2 ML VIAL ONE (10:08)
[2017-01-17] MEDS ORDERED: LIDOCAINE 1% / SOD BICARB 8.4% 20 ML VIAL. IJ ONE ×2 (10:14→10:15)
[2017-01-17] MEDS ORDERED: fentaNYL PF VIAL 100 MCG/2 ML VIAL IV ONE (10:15)
[2017-01-17] MEDS ORDERED: MIDAZOLAM HCL/PF 2 MG/2 ML VIAL. IV ONE (10:15)
--- NOTE | 2017-01-17 11:32 | PDOC ---
SUBJECTIVE ROS ANDREINA Doing a little better overall - Pain is better controlled overall CVS: no Orthopnea, no CP RESP: no SOB, no GORE GI: no Nausea, no Vomiting : no Dysuria, no Urgency OBJECTIVE Vital Signs Vital Signs Date Time Temp Pulse Resp B/P (MAP) Pulse Ox O2 Delivery O2 Flow Rate FiO2 01/17/17 11:10 68 20 100/53 (69) 97 Nasal Cannula 3.0 01/17/17 07:00 97.6 97.6 I & 0 Intake and Output 01/18/17 07:00 Output Total 350 ml Balance -350 ml Output Urine Total 350 ml PHYSICAL EXAM Physical Exam General Appearance: Awake Alert Oriented x 3 In no Distress Eyes: VIsion Unchanged Conjunctiva Normal EN: No EN Drainage Mucous Memb. moist Neck: no JVD no JVP Supple no Thyromegaly thick neck, double chin CVS: S1 S2 + Murmur No Gallop No Rub no Edema Resp: no Rales no Rhonchi no Acc. Muscle use GI: BAS +ve NO Bruit Non Tender Non Distended - obese : no CVA tenderness; no Suprapubic Tenderness Assessment & Plan ANDREINA - Creat is littl better ? CKD given Cortical Thinning as noted on US - This may be his baseline Sev lactic Acidosis - reval levels as much better; resolved with IVF as ordered - watch off of Same. Suspect due to tissue Hypoperfusion after "Passing out" episode Ch. Anemia: Pt claims its due to Crohns. [place] is OK - colonoscopy not due for another year - defer hereafter to Dr Servin Sev Back Pain - better with current Pain mx regimen Mild Met Acidosis - better after IVF and resolution of Lactic Acidemia HTN: Current BP meds reviewed. See orders for changes. Discussed Plan of Care and prognosis etc. at length with pt at bedside COMMENT/RELEVANT DATA Meds Current Medications Medications (Trade) Dose Ordered Sig/Jose Start Time Stop Time Status Last Admin Dose Admin Albuterol Sulfate (Ventolin Neb Soln) 2.5 mg PRN Q3HRS PRN 01/15/17 23:30 01/16/17 11:24 2.5 MG Aspirin (Charmaine Aspirin) 325 mg [id number] 01/17/17 08:00 Atorvastatin Calcium (Lipitor) 40 mg QHS 01/16/17 21:00 01/16/17 21:06 40 MG Clonidine HCl (Catapres) 0.1 mg BID 01/16/17 21:00 01/17/17 08:54 0.1 MG Dexamethasone Sodium Phosphate (Decadron) 4 mg Q6HRS 01/17/17 00:00 01/17/17 05:29 4 MG Dextrose (Dextrose 50%-Water Syringe) 12.5 gm PRN Q15MIN PRN 01/16/17 16:45 Diazepam (Valium) 5 mg PRN Q6HRS PRN 01/16/17 18:45 01/17/17 08:55 5 MG Fentanyl Citrate (Fentanyl 2ml Vial) 100 mcg 1X ONCE 01/17/17 10:15 01/17/17 10:16 DC 01/17/17 10:52 100 MCG Folic Acid (Folic Acid) 1 mg DAILY 01/17/17 09:00 Gabapentin (Neurontin) 600 mg TID 01/16/17 21:00 01/17/17 08:54 600 MG Heparin Sodium (Porcine) (Heparin Sodium) 1,750 unit PRN Q6HRS PRN 01/15/17 23:15 01/16/17 16:41 DC Heparin Sodium (Porcine) (Heparin Sq) 5,000 unit Q8HRS 01/16/17 22:00 01/16/17 21:10 5,000 UNIT Heparin Sodium/ Dextrose 500 ml @ 0 mls/hr CONT PRN 01/15/17 23:15 01/16/17 16:41 DC 01/16/17 16:26 30.4 MLS/HR Info (Anti-Coagulation Monitoring By Pharmacy) 1 each PRN DAILY PRN 01/16/17 09:45 Cancel Info (Do NOT chart on this entry -- for MONITORING) 1 each PRN DAILY PRN 01/16/17 12:00 01/18/17 11:59 Insulin Aspart (NovoLOG) 0-9 UNITS TIDWMEALS 01/16/17 17:00 Iohexol (Omnipaque 240 Mg/ml) 30 ml 1X ONCE 01/16/17 12:00 01/16/17 12:01 DC Lactobacillus Rhamnosus (Culturelle) 1 cap BID 01/16/17 21:00 01/17/17 08:54 1 CAP Lidocaine/Sodium Bicarbonate (Buffered Lidocaine 1%) 20 ml STK-MED ONCE 01/17/17 10:14 01/17/17 10:15 DC Linezolid 300 ml @ 300 mls/hr Q12HR 01/16/17 12:00 01/17/17 08:14 DC 01/16/17 20:58 300 MLS/HR Loperamide HCl (Imodium) 2 mg Q2H PRN 01/16/17 16:45 Magnesium Sulfate/ Dextrose 50 ml @ 25 mls/hr PRN DAILY PRN 01/16/17 13:15 Metoprolol Succinate (Toprol Xl) 100 mg BID 01/16/17 21:00 UNV Midazolam HCl (Versed) 2 mg 1X ONCE 01/17/17 10:15 01/17/17 10:16 DC 01/17/17 10:52 1 MG Morphine Sulfate 2 mg PRN Q2HR PRN 01/16/17 16:45 01/17/17 05:29 2 MG Ondansetron HCl (Zofran) 4 mg PRN Q8HRS PRN 01/15/17 23:15 01/16/17 23:14 DC Oxycodone/ Acetaminophen (Percocet 10) 1 tab PRN Q4HRS PRN 01/16/17 16:45 01/17/17 08:55 1 TAB Pantoprazole Sodium (Protonix) 40 mg DAILYAC 01/17/17 07:30 01/17/17 08:54 40 MG Piperacillin Sod/ Tazobactam Sod (Zosyn Per Pharmacy) 1 each PRN DAILY PRN 01/16/17 02:45 Piperacillin Sod/ Tazobactam Sod (Zosyn) 2.25 gm Q6HRS 01/16/17 06:00 01/17/17 05:30 2.25 GM Piperacillin Sod/ Tazobactam Sod 3.375 gm/Dextrose 50 ml @ 100 mls/hr 1X ONCE 01/15/17 23:30 01/15/17 23:59 DC 01/15/17 23:22 100 MLS/HR Sodium Chloride 1,000 ml @ 100 mls/hr Q10H 01/16/17 13:45 01/17/17 02:24 100 MLS/HR Vitamin D (Vitamin D3) 2,000 unit DAILY 01/17/17 09:00 Warfarin Sodium (Coumadin Per Pharmacy) 1 each PRN DAILY PRN 01/15/17 23:15 01/16/17 16:39 DC 01/16/17 10:20 1 EACH Warfarin Sodium (Coumadin) 5 mg 1X WARF ONCE 01/16/17 16:00 01/16/17 16:39 DC Lab Laboratory Tests Test 01/16/17 13:50 01/16/17 14:00 01/16/17 17:38 01/16/17 20:49 White Blood Count 6.6 x10^3/uL (4.0-11.0) Red Blood Count 2.73 x10^6/uL (4.30-5.70) Hemoglobin 8.7 g/dL (13.0-17.5) Hematocrit 27.0 % (39.0-53.0) Mean Corpuscular Volume 99 fL (79-100) Mean Corpuscular Hemoglobin 32 pg (25-35) Mean Corpuscular Hemoglobin Concent 32 g/dL (31-37) Red Cell Distribution Width 15.3 % (11.5-14.5) Platelet Count 162 x10^3/uL (140-400) Neutrophils (%) (Auto) 76 % (31-73) Lymphocytes (%) (Auto) 11 % (24-48) Monocytes (%) (Auto) 13 % (0-9) Eosinophils (%) (Auto) 0 % (0-3) Basophils (%) (Auto) 0 % (0-3) Neutrophils # (Auto) 5.0 x10^3uL (1.8-7.7) Lymphocytes # (Auto) 0.7 x10^3/uL (1.0-4.8) Monocytes # (Auto) 0.8 x10^3/uL (0.0-1.1) Eosinophils # (Auto) 0.0 x10^3/uL (0.0-0.7) Basophils # (Auto) 0.0 x10^3/uL (0.0-0.2) Reticulocyte Count (auto) 0.7 % (0.5-2.5) Heparin Anti-Xa Act, Unfractionated 0.45 IU/mL (0.30-0.70) Sodium Level 133 mmol/L (136-145) Potassium Level 4.2 mmol/L (3.5-5.1) Chloride Level 101 mmol/L (98-107) Carbon Dioxide Level 23 mmol/L (21-32) Anion Gap 9 (6-14) Blood Urea Nitrogen 23 mg/dL (8-26) Creatinine 1.9 mg/dL (0.7-1.3) Estimated GFR (Cockcroft-Gault) 35.1 BUN/Creatinine Ratio 12 (6-20) Glucose Level 156 mg/dL (70-99) Lactic Acid Level 2.5 mmol/L (0.4-2.0) Uric Acid 5.6 mg/dL (3.5-7.2) Calcium Level 8.0 mg/dL (8.5-10.1) Iron Level 103 ug/dL (65-175) Total Iron Binding Capacity 222 ug/dL (250-450) Iron Saturation 46 % (15-34) Ferritin 166 ng/mL (26-388) Total Bilirubin 1.4 mg/dL (0.2-1.0) Aspartate Amino Transf (AST/SGOT) 39 U/L (15-37) Alanine Aminotransferase (ALT/SGPT) 35 U/L (16-63) Alkaline Phosphatase 76 U/L (46-116) Lactate Dehydrogenase 168 U/L (85-227) Creatine Kinase 422 U/L (39-308) Total Protein 6.6 g/dL (6.4-8.2) Albumin 2.8 g/dL (3.4-5.0) Albumin/Globulin Ratio 0.7 (1.0-1.7) Urine Collection Type Unknown Urine Color Yellow Urine Clarity Clear Urine pH 5.5 Urine Specific [place] >=1.030 Urine Protein Negative mg/dL (NEG-TRACE) Urine Glucose (UA) Negative mg/dL (NEG) Urine Ketones (Stick) Negative mg/dL (NEG) Urine Blood Negative (NEG) Urine Nitrite Negative (NEG) Urine Bilirubin Negative (NEG) Urine Urobilinogen Dipstick 0.2 mg/dL (0.2 mg/dL) Urine Leukocyte Esterase Negative (NEG) Urine RBC 0 /HPF (0-2) Urine WBC 0 /HPF (0-4) Urine Squamous Epithelial Cells Mod /LPF Urine Amorphous Sediment Present /HPF Urine Bacteria 0 /HPF (0-FEW) Urine Mucus Mod /LPF Glucose (Fingerstick) 134 mg/dL (70-99) 139 mg/dL (70-99) Test 01/17/17 06:00 01/17/17 07:10 White Blood Count 5.7 x10^3/uL (4.0-11.0) Red Blood Count 2.42 x10^6/uL (4.30-5.70) Hemoglobin 7.8 g/dL (13.0-17.5) Hematocrit 23.9 % (39.0-53.0) Mean Corpuscular Volume 99 fL (79-100) Mean Corpuscular Hemoglobin 32 pg (25-35) Mean Corpuscular Hemoglobin Concent 33 g/dL (31-37) Red Cell Distribution Width 15.2 % (11.5-14.5) Platelet Count 120 x10^3/uL (140-400) Sodium Level 136 mmol/L (136-145) Potassium Level 4.7 mmol/L (3.5-5.1) Chloride Level 102 mmol/L (98-107) Carbon Dioxide Level 26 mmol/L (21-32) Anion Gap 8 (6-14) Blood Urea Nitrogen 20 mg/dL (8-26) Creatinine 1.5 mg/dL (0.7-1.3) Estimated GFR (Cockcroft-Gault) 46.1 Glucose Level 177 mg/dL (70-99) Lactic Acid Level 1.8 mmol/L (0.4-2.0) Calcium Level 8.1 mg/dL (8.5-10.1) Phosphorus Level 3.5 mg/dL (2.6-4.7) Magnesium Level 1.8 mg/dL (1.8-2.4) Albumin 2.9 g/dL (3.4-5.0) Glucose (Fingerstick) 166 mg/dL (70-99) Other The right kidney measures 9.1 cm in length while the left kidney measures 9.3 cm. There is a 4.7 cm exophytic cyst arising from the lateral aspect of the left kidney. There is bilateral renal cortical scarring. The renal parenchymal echogenicity is otherwise within normal limits. There is no evidence of hydronephrosis. Limited views of the urinary bladder demonstrate echogenic debris within the urine. The bladder is otherwise unremarkable. IMPRESSION: 1. Small left renal cyst. 2. Bilateral renal cortical scarring. 3. No evidence of renal obstruction. 4. Echogenic debris within the urinary bladder. CT scan IMPRESSION: Known bony pathology in the cervical and lumbar spine, referenced on examination 01/15/2017 is reproduced. In addition there are several left rib fractures which appear recent or acute. Moderate peripancreatic adenopathy. The clinical significance or etiology is not certain. Stranding and irregularity involving the mesentery probably reflecting old disease. 4.5 cm low-density mass adjacent to the left kidney. The etiology is not clear. Ultrasound likely would be useful for additional evaluation and characterization SERVANDO HARTMANN MD Jan 17, 2017 11:32
[2017-01-17] MEDS: ASPIRIN 325 MG TABLET PO SCH (12:01)
[2017-01-17] MEDS: METOPROLOL SUCC 24HR ER 50 MG TAB.ER.24H. PO SCH ×2 (12:01→20:06)
[2017-01-17] MEDS: CHOLECALCIFEROL (VITAMIN D3) 1,000 UNIT TABLET PO SCH (12:01)
[2017-01-17] MEDS: FOLIC ACID 1 MG TABLET. PO SCH (12:02)
--- NOTE | 2017-01-17 12:45 | CARD ---
APPROVED REPORT EXAM: Two-dimensional and M-mode echocardiogram with Doppler and color Doppler. Other Information Quality : Good INDICATION Atrial Fibrillation Syncope 2D DIMENSIONS Left Atrium(2D)5.2 (1.6-4.0cm)IVSd1.4 (0.7-1.1cm) Aortic Root(2D)3.1 (2.0-3.7cm)LVDd4.1 (3.9-5.9cm) LVOT Diameter2.1 (1.8-2.4cm)PWd1.3 (0.7-1.1cm) LVDs2.8 (2.5-4.0cm)FS (%) 30.5 % SV42.9 mlLVEF(%)58.5 (>50%) Aortic Valve AoV Peak Latrell.296.4cm/sAoV VTI61.4cm AO Peak GR.35.1mmHgLVOT Peak Latrell.118.1cm/s AO Mean GR.18mmHgAVA (VMAX)1.33cm2 PAO (VTI)1.40cm2 Mitral Valve MV E Qmmfrzix367.9cm/sMV DECEL [id number] MV A Velocity0.2cm/sE/A Xckjf144.5 Tricuspid Valve TR P. [id number]/sRAP [id number] TR Peak Gr.[id number] LEFT VENTRICLE The left ventricle is normal size. There is mild to moderate concentric left ventricular hypertrophy. Left ventricle systolic function is normal. The Ejection Fraction is 50-55%. Septal motion suggestiv e of conduction defect and possible prior CABG, otherwise, there is normal LV segmental wall motion. Tissue Doppler imaging reveals moderate left ventricular diastolic dysfunction. No left ventricle thr ombus noted on this study. RIGHT VENTRICLE The right ventricle is normal size. The right ventricular systolic function is normal. ATRIA The left atrium is moderately dilated. The right atrium is moderately dilated. The interatrial septum is intact with no evidence for an atrial septal defect or patent foramen ovale as noted on 2-D or Do ppler imaging. AORTIC VALVE The aortic valve is mild to moderately calcified. Doppler and Color Flow revealed no significant aort ic regurgitation. There is mild to moderate valvular aortic stenosis maximum pressure gradient of 35 mmHg and mean pressure gradient of 18 mmHg. AV VTI index suggestive of moderate aortic stenosis. PAO not able to be calculated due to suboptimal LVOT measurement. MITRAL VALVE The mitral valve is calcified but opens well. There is no evidence of mitral valve prolapse. There is no mitral valve stenosis. Doppler and Color Flow revealed no mitral valve regurgitation noted. TRICUSPID VALVE The tricuspid valve leaflets are thickened or calcified, but open well. Doppler and Color Flow reveal ed mild tricuspid regurgitation. The PA pressure was estimated at 34 mmHg. There is no tricuspid valv e stenosis. PULMONIC VALVE Doppler and Color Flow revealed no pulmonic valvular regurgitation. There is no pulmonic valvular juan nosis. GREAT VESSELS The aortic root is normal in size. The ascending aorta is normal in size. The IVC is normal in size a nd collapses >50% with inspiration. PERICARDIAL EFFUSION There is no pleural effusion. There is no evidence of significant pericardial effusion. Critical Notification Critical Value: No <Conclusion> There is mild to moderate concentric left ventricular hypertrophy. Left ventricle systolic function is normal. The Ejection Fraction is 50-55%. Septal motion suggestive of conduction defect and possible prior CABG, otherwise, there is normal LV segmental wall motion. The left atrium is moderately dilated. There is mild to moderate valvular aortic stenosis maximum pressure gradient of 35 mmHg and mean pres sure gradient of 18 mmHg. AV VTI index suggestive of moderate aortic stenosis. PAO not able to be ernie culated due to suboptimal LVOT measurement. Doppler and Color Flow revealed mild tricuspid regurgitation. The PA pressure was estimated at 34 mmH g.
--- NOTE | 2017-01-17 13:04 | PDOC ---
PROGRESS NOTES Subjective Subjective HPI - Osteolytic bone lesions. ROS - back pain better Objective Objective Vital Signs Date Time Temp Pulse Resp B/P (MAP) Pulse Ox O2 Delivery O2 Flow Rate FiO2 01/17/17 12:01 71 115/56 01/17/17 11:10 20 97 Nasal Cannula 3.0 01/17/17 07:00 97.6 97.6 Intake and Output 01/18/17 06:59 Intake Total 150 ml Output Total 350 ml Balance -200 ml Intake Oral 150 ml Output Urine Total 350 ml Physical Exam Heart: Normal S1, Normal S2 General: Alert, Oriented X3 Lungs: Clear to auscultation Neuro: Normal speech Psych/Mental Status: Mental status NL Assessment Assessment Problems Medical Problems: (1) Elevated d-dimer Status: Acute (2) Elevated serum creatinine Status: Acute (3) Hypoxia Status: Acute (4) Lactic acidosis Status: Acute (5) 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 Osteolytic bone lesions. This is clinically concerning for metastatic focus. He also has multiple other lesions in the spine. I discussed in detail with the patient and family. Since the CT chest, abdomen and pelvis did not reveal a clear primary focus I would pursue with a biopsy of the L3 vertebral lesion - done 01/17/17. PSA normal. The patient has already been started on Decadron 4 mg q. 6 hours. I will also consult Radiation Oncology because of encroachment upon the spinal canal. 2. Left renal lesion, u/s ultrasound of the kidney does not reveal malignancy. 3. Bone lesions, plan for a bone scan. 4. Anemia. This is likely secondary to malignancy. I will continue to monitor. Comment Review of Relevant I have reviewed the following items bernadine (where applicable) has been applied. Labs Laboratory Tests Test 01/15/17 20:40 01/15/17 21:50 01/16/17 00:54 01/16/17 05:30 White Blood Count 13.7 x10^3/uL (4.0-11.0) Red Blood Count 3.32 x10^6/uL (4.30-5.70) Hemoglobin 10.7 g/dL (13.0-17.5) Hematocrit 33.6 % (39.0-53.0) Mean Corpuscular Volume 101 fL (79-100) Mean Corpuscular Hemoglobin 32 pg (25-35) Mean Corpuscular Hemoglobin Concent 32 g/dL (31-37) Red Cell Distribution Width 15.7 % (11.5-14.5) Platelet Count 237 x10^3/uL (140-400) Neutrophils (%) (Auto) 69 % (31-73) Lymphocytes (%) (Auto) 16 % (24-48) Monocytes (%) (Auto) 11 % (0-9) Eosinophils (%) (Auto) 3 % (0-3) Basophils (%) (Auto) 1 % (0-3) Neutrophils # (Auto) 9.4 x10^3uL (1.8-7.7) Lymphocytes # (Auto) 2.2 x10^3/uL (1.0-4.8) Monocytes # (Auto) 1.5 x10^3/uL (0.0-1.1) Eosinophils # (Auto) 0.4 x10^3/uL (0.0-0.7) Basophils # (Auto) 0.1 x10^3/uL (0.0-0.2) Prothrombin Time 14.9 SEC (11.7-14.0) 15.6 SEC (11.7-14.0) Prothromb Time International Ratio 1.2 (0.8-1.1) 1.3 (0.8-1.1) D-Dimer ([place]) 8.64 ug/mlFEU (0.00-0.50) Sodium Level 139 mmol/L (136-145) Potassium Level 3.9 mmol/L (3.5-5.1) Chloride Level 103 mmol/L (98-107) Carbon Dioxide Level 20 mmol/L (21-32) Anion Gap 16 (6-14) Blood Urea Nitrogen 23 mg/dL (8-26) Creatinine 2.4 mg/dL (0.7-1.3) Estimated GFR (Cockcroft-Gault) 26.8 BUN/Creatinine Ratio 10 (6-20) Glucose Level 109 mg/dL (70-99) Calcium Level 8.5 mg/dL (8.5-10.1) Magnesium Level 1.5 mg/dL (1.8-2.4) Total Bilirubin 0.5 mg/dL (0.2-1.0) Aspartate Amino Transf (AST/SGOT) 26 U/L (15-37) Alanine Aminotransferase (ALT/SGPT) 33 U/L (16-63) Alkaline Phosphatase 81 U/L (46-116) Creatine Kinase 145 U/L (39-308) Creatine Kinase MB (Mass) 2.8 ng/mL (0.0-3.6) Creatine Kinase MB Relative Index 1.9 % (0-4) Troponin I Quantitative < 0.017 ng/mL (0.000-0.055) 0.042 ng/mL (0.000-0.055) RX-Tow-R-Type Natriuretic Peptide 4474 pg/mL (0-124) Total Protein 7.1 g/dL (6.4-8.2) Albumin 3.1 g/dL (3.4-5.0) Albumin/Globulin Ratio 0.8 (1.0-1.7) Lipase 60 U/L (73-393) Ethyl Alcohol Level 134 mg/dL (0-10) Lactic Acid Level 7.0 mmol/L (0.4-2.0) 6.3 mmol/L (0.4-2.0) Heparin Anti-Xa Act, Unfractionated 1.10 IU/mL (0.30-0.70) Triglycerides Level 56 mg/dL (0-150) Cholesterol Level 126 mg/dL (0-200) LDL Cholesterol, Calculated 50 mg/dL (0-100) VLDL Cholesterol, Calculated 11 mg/dL (0-40) Non-HDL Cholesterol Calculated 61 mg/dL (0-129) HDL Cholesterol 65 mg/dL (40-60) Cholesterol/HDL Ratio 1.9 Prostate Specific Antigen 2.36 ng/mL (0.00-4.00) Test 01/16/17 10:55 01/16/17 13:50 01/16/17 14:00 01/16/17 17:38 Troponin I Quantitative 0.033 ng/mL (0.000-0.055) White Blood Count 6.6 x10^3/uL (4.0-11.0) Red Blood Count 2.73 x10^6/uL (4.30-5.70) Hemoglobin 8.7 g/dL (13.0-17.5) Hematocrit 27.0 % (39.0-53.0) Mean Corpuscular Volume 99 fL (79-100) Mean Corpuscular Hemoglobin 32 pg (25-35) Mean Corpuscular Hemoglobin Concent 32 g/dL (31-37) Red Cell Distribution Width 15.3 % (11.5-14.5) Platelet Count 162 x10^3/uL (140-400) Neutrophils (%) (Auto) 76 % (31-73) Lymphocytes (%) (Auto) 11 % (24-48) Monocytes (%) (Auto) 13 % (0-9) Eosinophils (%) (Auto) 0 % (0-3) Basophils (%) (Auto) 0 % (0-3) Neutrophils # (Auto) 5.0 x10^3uL (1.8-7.7) Lymphocytes # (Auto) 0.7 x10^3/uL (1.0-4.8) Monocytes # (Auto) 0.8 x10^3/uL (0.0-1.1) Eosinophils # (Auto) 0.0 x10^3/uL (0.0-0.7) Basophils # (Auto) 0.0 x10^3/uL (0.0-0.2) Reticulocyte Count (auto) 0.7 % (0.5-2.5) Heparin Anti-Xa Act, Unfractionated 0.45 IU/mL (0.30-0.70) Sodium Level 133 mmol/L (136-145) Potassium Level 4.2 mmol/L (3.5-5.1) Chloride Level 101 mmol/L (98-107) Carbon Dioxide Level 23 mmol/L (21-32) Anion Gap 9 (6-14) Blood Urea Nitrogen 23 mg/dL (8-26) Creatinine 1.9 mg/dL (0.7-1.3) Estimated GFR (Cockcroft-Gault) 35.1 BUN/Creatinine Ratio 12 (6-20) Glucose Level 156 mg/dL (70-99) Lactic Acid Level 2.5 mmol/L (0.4-2.0) Uric Acid 5.6 mg/dL (3.5-7.2) Calcium Level 8.0 mg/dL (8.5-10.1) Iron Level 103 ug/dL (65-175) Total Iron Binding Capacity 222 ug/dL (250-450) Iron Saturation 46 % (15-34) Ferritin 166 ng/mL (26-388) Total Bilirubin 1.4 mg/dL (0.2-1.0) Aspartate Amino Transf (AST/SGOT) 39 U/L (15-37) Alanine Aminotransferase (ALT/SGPT) 35 U/L (16-63) Alkaline Phosphatase 76 U/L (46-116) Lactate Dehydrogenase 168 U/L (85-227) Creatine Kinase 422 U/L (39-308) Total Protein 6.6 g/dL (6.4-8.2) Albumin 2.8 g/dL (3.4-5.0) Albumin/Globulin Ratio 0.7 (1.0-1.7) Urine Collection Type Unknown Urine Color Yellow Urine Clarity Clear Urine pH 5.5 Urine Specific [place] >=1.030 Urine Protein Negative mg/dL (NEG-TRACE) Urine Glucose (UA) Negative mg/dL (NEG) Urine Ketones (Stick) Negative mg/dL (NEG) Urine Blood Negative (NEG) Urine Nitrite Negative (NEG) Urine Bilirubin Negative (NEG) Urine Urobilinogen Dipstick 0.2 mg/dL (0.2 mg/dL) Urine Leukocyte Esterase Negative (NEG) Urine RBC 0 /HPF (0-2) Urine WBC 0 /HPF (0-4) Urine Squamous Epithelial Cells Mod /LPF Urine Amorphous Sediment Present /HPF Urine Bacteria 0 /HPF (0-FEW) Urine Mucus Mod /LPF Glucose (Fingerstick) 134 mg/dL (70-99) Test 01/16/17 20:49 01/17/17 06:00 01/17/17 07:10 01/17/17 11:41 Glucose (Fingerstick) 139 mg/dL (70-99) 166 mg/dL (70-99) 164 mg/dL (70-99) White Blood Count 5.7 x10^3/uL (4.0-11.0) Red Blood Count 2.42 x10^6/uL (4.30-5.70) Hemoglobin 7.8 g/dL (13.0-17.5) Hematocrit 23.9 % (39.0-53.0) Mean Corpuscular Volume 99 fL (79-100) Mean Corpuscular Hemoglobin 32 pg (25-35) Mean Corpuscular Hemoglobin Concent 33 g/dL (31-37) Red Cell Distribution Width 15.2 % (11.5-14.5) Platelet Count 120 x10^3/uL (140-400) Sodium Level 136 mmol/L (136-145) Potassium Level 4.7 mmol/L (3.5-5.1) Chloride Level 102 mmol/L (98-107) Carbon Dioxide Level 26 mmol/L (21-32) Anion Gap 8 (6-14) Blood Urea Nitrogen 20 mg/dL (8-26) Creatinine 1.5 mg/dL (0.7-1.3) Estimated GFR (Cockcroft-Gault) 46.1 Glucose Level 177 mg/dL (70-99) Lactic Acid Level 1.8 mmol/L (0.4-2.0) Calcium Level 8.1 mg/dL (8.5-10.1) Phosphorus Level 3.5 mg/dL (2.6-4.7) Magnesium Level 1.8 mg/dL (1.8-2.4) Albumin 2.9 g/dL (3.4-5.0) Laboratory Tests Test 01/16/17 13:50 01/16/17 14:00 01/16/17 17:38 01/16/17 20:49 White Blood Count 6.6 x10^3/uL (4.0-11.0) Red Blood Count 2.73 x10^6/uL (4.30-5.70) Hemoglobin 8.7 g/dL (13.0-17.5) Hematocrit 27.0 % (39.0-53.0) Mean Corpuscular Volume 99 fL (79-100) Mean Corpuscular Hemoglobin 32 pg (25-35) Mean Corpuscular Hemoglobin Concent 32 g/dL (31-37) Red Cell Distribution Width 15.3 % (11.5-14.5) Platelet Count 162 x10^3/uL (140-400) Neutrophils (%) (Auto) 76 % (31-73) Lymphocytes (%) (Auto) 11 % (24-48) Monocytes (%) (Auto) 13 % (0-9) Eosinophils (%) (Auto) 0 % (0-3) Basophils (%) (Auto) 0 % (0-3) Neutrophils # (Auto) 5.0 x10^3uL (1.8-7.7) Lymphocytes # (Auto) 0.7 x10^3/uL (1.0-4.8) Monocytes # (Auto) 0.8 x10^3/uL (0.0-1.1) Eosinophils # (Auto) 0.0 x10^3/uL (0.0-0.7) Basophils # (Auto) 0.0 x10^3/uL (0.0-0.2) Reticulocyte Count (auto) 0.7 % (0.5-2.5) Heparin Anti-Xa Act, Unfractionated 0.45 IU/mL (0.30-0.70) Sodium Level 133 mmol/L (136-145) Potassium Level 4.2 mmol/L (3.5-5.1) Chloride Level 101 mmol/L (98-107) Carbon Dioxide Level 23 mmol/L (21-32) Anion Gap 9 (6-14) Blood Urea Nitrogen 23 mg/dL (8-26) Creatinine 1.9 mg/dL (0.7-1.3) Estimated GFR (Cockcroft-Gault) 35.1 BUN/Creatinine Ratio 12 (6-20) Glucose Level 156 mg/dL (70-99) Lactic Acid Level 2.5 mmol/L (0.4-2.0) Uric Acid 5.6 mg/dL (3.5-7.2) Calcium Level 8.0 mg/dL (8.5-10.1) Iron Level 103 ug/dL (65-175) Total Iron Binding Capacity 222 ug/dL (250-450) Iron Saturation 46 % (15-34) Ferritin 166 ng/mL (26-388) Total Bilirubin 1.4 mg/dL (0.2-1.0) Aspartate Amino Transf (AST/SGOT) 39 U/L (15-37) Alanine Aminotransferase (ALT/SGPT) 35 U/L (16-63) Alkaline Phosphatase 76 U/L (46-116) Lactate Dehydrogenase 168 U/L (85-227) Creatine Kinase 422 U/L (39-308) Total Protein 6.6 g/dL (6.4-8.2) Albumin 2.8 g/dL (3.4-5.0) Albumin/Globulin Ratio 0.7 (1.0-1.7) Urine Collection Type Unknown Urine Color Yellow Urine Clarity Clear Urine pH 5.5 Urine Specific [place] >=1.030 Urine Protein Negative mg/dL (NEG-TRACE) Urine Glucose (UA) Negative mg/dL (NEG) Urine Ketones (Stick) Negative mg/dL (NEG) Urine Blood Negative (NEG) Urine Nitrite Negative (NEG) Urine Bilirubin Negative (NEG) Urine Urobilinogen Dipstick 0.2 mg/dL (0.2 mg/dL) Urine Leukocyte Esterase Negative (NEG) Urine RBC 0 /HPF (0-2) Urine WBC 0 /HPF (0-4) Urine Squamous Epithelial Cells Mod /LPF Urine Amorphous Sediment Present /HPF Urine Bacteria 0 /HPF (0-FEW) Urine Mucus Mod /LPF Glucose (Fingerstick) 134 mg/dL (70-99) 139 mg/dL (70-99) Test 01/17/17 06:00 01/17/17 07:10 01/17/17 11:41 White Blood Count 5.7 x10^3/uL (4.0-11.0) Red Blood Count 2.42 x10^6/uL (4.30-5.70) Hemoglobin 7.8 g/dL (13.0-17.5) Hematocrit 23.9 % (39.0-53.0) Mean Corpuscular Volume 99 fL (79-100) Mean Corpuscular Hemoglobin 32 pg (25-35) Mean Corpuscular Hemoglobin Concent 33 g/dL (31-37) Red Cell Distribution Width 15.2 % (11.5-14.5) Platelet Count 120 x10^3/uL (140-400) Sodium Level 136 mmol/L (136-145) Potassium Level 4.7 mmol/L (3.5-5.1) Chloride Level 102 mmol/L (98-107) Carbon Dioxide Level 26 mmol/L (21-32) Anion Gap 8 (6-14) Blood Urea Nitrogen 20 mg/dL (8-26) Creatinine 1.5 mg/dL (0.7-1.3) Estimated GFR (Cockcroft-Gault) 46.1 Glucose Level 177 mg/dL (70-99) Lactic Acid Level 1.8 mmol/L (0.4-2.0) Calcium Level 8.1 mg/dL (8.5-10.1) Phosphorus Level 3.5 mg/dL (2.6-4.7) Magnesium Level 1.8 mg/dL (1.8-2.4) Albumin 2.9 g/dL (3.4-5.0) Glucose (Fingerstick) 166 mg/dL (70-99) 164 mg/dL (70-99) Microbiology 01/15/17 Blood Culture - Preliminary, Resulted NO GROWTH AFTER 1 DAY Medications Current Medications Fentanyl Citrate (Fentanyl 2ml Vial) 50 mcg 1X ONCE IV Last administered on 21:52; Start 01/15/17 at 22:00; Stop 01/15/17 at 22:01; Status DC Sodium Chloride 1,000 ml @ 150 mls/hr 1X ONCE IV Last administered on 22:31; Start 01/15/17 at 22:00; Stop 01/16/17 at 04:39; Status DC Piperacillin Sod/ Tazobactam Sod 3.375 gm/Dextrose 50 ml @ 100 mls/hr 1X ONCE IV Last administered on 01/15/17 23:22; Start 01/15/17 at 23:30; Stop 01/15 at 23:59; Status DC Heparin Sodium (Porcine) (Heparin Sodium) 9,450 unit 1X ONCE IV Last administered on 01/15/17 23:30; Start 01/15/17 at 23:30; Stop 01/16/17 at 16 :41; Status DC Heparin Sodium/ Dextrose 500 ml @ 0 mls/hr CONT PRN IV SEE I/O RECORD Last administered on 01/16/17 16:26; Start 01/15/17 at 23:15; Stop 01/16/17 at 16 :41; Status DC Heparin Sodium (Porcine) (Heparin Sodium) 3,550 unit PRN Q6HRS PRN IV FOR UFH LEVEL LESS THAN 0.2; Start 01/15/17 at 23:15; Stop 01/16/17 at 16:41; Status DC Heparin Sodium (Porcine) (Heparin Sodium) 1,750 unit PRN Q6HRS PRN IV FOR UFH LEVEL 0.2 - 0.29; Start 01/15/17 at 23:15; Stop 01/16/17 at 16:41; Status DC Warfarin Sodium (Coumadin Per Pharmacy) 1 each PRN DAILY PRN MC PER PROTOCOL Last administered on 01/16/17 10:20; Start 01/15/17 at 23:15; Stop 01/16/17 at 16:39; Status DC Info (Anti-Coagulation Monitoring By Pharmacy) 1 each PRN DAILY PRN MC SEE COMMENTS Last administered on 01/16/17 10:17; Start 01/15/17 at 23:30 Ondansetron HCl (Zofran) 4 mg PRN Q8HRS PRN IV NAUSEA/VOMITING; Start at 23:15; Stop 01/16/17 at 23:14; Status DC Fentanyl Citrate (Fentanyl 2ml Vial) 50 mcg PRN Q2HR PRN IV SEVERE PAIN Last administered on 01/16/17 01:33; Start 01/15/17 at 23:15; Stop 01/16/17 at 02 :47; Status DC Piperacillin Sod/ Tazobactam Sod (Zosyn Per Pharmacy) 1 each PRN DAILY PRN MC SEE COMMENTS; Start 01/15/17 at 23:15; Stop 01/16/17 at 02:54; Status DC Sodium Chloride 1,000 ml @ 150 mls/hr 1X ONCE IV Last administered on 01:34; Start 01/15/17 at 23:45; Stop 01/16/17 at 06:24; Status DC Albuterol Sulfate (Ventolin Neb Soln) 2.5 mg PRN Q3HRS PRN NEB WHEEZING Last administered on 01/16/17 11:24; Start 01/15/17 at 23:30 Morphine Sulfate 2 mg 1X ONCE IV Last administered on 01/15/17 23:47; Start 01/16/17 at 00:00; Stop 01/16/17 at 00:01; Status DC Fentanyl Citrate (Fentanyl 2ml Vial) 75 mcg PRN Q2HR PRN IV SEVERE PAIN Last administered on 01/16/17 13:56; Start 01/16/17 at 02:45; Stop 01/16/17 at 16 :41; Status DC Piperacillin Sod/ Tazobactam Sod (Zosyn Per Pharmacy) 1 each PRN DAILY PRN MC SEE COMMENTS; Start 01/16/17 at 02:45 Piperacillin Sod/ Tazobactam Sod (Zosyn) 2.25 gm Q6HRS IVP Last administered on 01/17/17 12:01; Start 01/16/17 at 06:00 Info (Anti-Coagulation Monitoring By Pharmacy) 1 each PRN DAILY PRN MC SEE COMMENTS; Start 01/16/17 at 09:45; Status Cancel Warfarin Sodium (Coumadin) 5 mg 1X WARF ONCE PO ; Start 01/16/17 at 16:00; Stop 01/16/17 at 16:39; Status DC Lactobacillus Rhamnosus (Culturelle) 1 cap BID PO Last administered on 08:54; Start 01/16/17 at 21:00 Magnesium Sulfate/ Dextrose 50 ml @ 25 mls/hr 1X ONCE IV Last administered on 01/16/17 12:45; Start 01/16/17 at 11:30; Stop 01/16/17 at 13:29; Status DC Linezolid 300 ml @ 300 mls/hr Q12HR IV Last administered on 01/16/17 20:58; Start 01/16/17 at 12:00; Stop 01/17/17 at 08:14; Status DC Iohexol (Omnipaque 240 Mg/ml) 30 ml 1X ONCE PO ; Start 01/16/17 at 12:00; Stop 01/16/17 at 12:01; Status DC Info (Do NOT chart on this entry -- for MONITORING) 1 each PRN DAILY PRN MC SEE COMMENTS; Start 01/16/17 at 12:00; Stop 01/18/17 at 11:59 Magnesium Sulfate/ Dextrose 50 ml @ 25 mls/hr PRN DAILY PRN IV for Mag < 1.7 on am labs; Start 01/16/17 at 13:15 Metoprolol Succinate (Toprol Xl) 50 mg BID PO Last administered on 01/17/17 12 :01; Start 01/16/17 at 21:00 Sodium Chloride 1,000 ml @ 100 mls/hr Q10H IV Last administered on 01/17/17 02:24; Start 01/16/17 at 13:45 Aspirin (Charmaine Aspirin) 325 mg DAILYWBKFT PO Last administered on 01/17/17 12: 01; Start 01/17/17 at 08:00 Atorvastatin Calcium (Lipitor) 40 mg QHS PO Last administered on 01/16/17 21: 06; Start 01/16/17 at 21:00 Vitamin D (Vitamin D3) 2,000 unit DAILY PO Last administered on 01/17/17 12:01 ; Start 01/17/17 at 09:00 Clonidine HCl (Catapres) 0.1 mg BID PO Last administered on 01/17/17 08:54; Start 01/16/17 at 21:00 Folic Acid (Folic Acid) 1 mg DAILY PO Last administered on 01/17/17 12:02; Start 01/17/17 at 09:00 Loperamide HCl (Imodium) 2 mg Q2H PRN PO diarrhea; Start 01/16/17 at 16:45 Metoprolol Succinate (Toprol Xl) 100 mg BID PO ; Start 01/16/17 at 21:00; Status UNV Gabapentin (Neurontin) 600 mg TID PO Last administered on 01/17/17 08:54; Start 01/16/17 at 21:00 Pantoprazole Sodium (Protonix) 40 mg DAILYAC PO Last administered on 01/17/17 08:54; Start 01/17/17 at 07:30 Insulin Aspart (NovoLOG) 0-9 UNITS TIDWMEALS SQ Last administered on 01/17/17 12:18; Start 01/16/17 at 17:00 Dextrose (Dextrose 50%-Water Syringe) 12.5 gm PRN Q15MIN PRN IV SEE COMMENTS; Start 01/16/17 at 16:45 Dexamethasone Sodium Phosphate (Decadron) 10 mg 1X ONCE IV Last administered on 01/16/17 17:05; Start 01/16/17 at 16:45; Stop 01/16/17 at 16:46; Status DC Dexamethasone Sodium Phosphate (Decadron) 4 mg Q6HRS IV Last administered on 12:02; Start 01/17/17 at 00:00 Morphine Sulfate 2 mg PRN Q2HR PRN IV PAIN Last administered on 01/17/17 05:29 ; Start 01/16/17 at 16:45 Oxycodone/ Acetaminophen (Percocet 10/325) 1 tab PRN Q4HRS PRN PO pain Last administered on 01/17/17 08:55; Start 01/16/17 at 16:45 Heparin Sodium (Porcine) (Heparin Sq) 5,000 unit Q8HRS SQ Last administered on 01/16/17 21:10; Start 01/16/17 at 22:00 Diazepam (Valium) 5 mg PRN Q6HRS PRN IV SEIZURES; Start 01/16/17 at 18:30; Status Cancel Diazepam (Valium) 5 mg PRN Q6HRS PRN PO TREMORS Last administered on 01/17/17 08:55; Start 01/16/17 at 18:45 Fentanyl Citrate (Fentanyl 2ml Vial) 100 mcg STK-MED ONCE .ROUTE ; Start at 10:08; Stop 01/17/17 at 10:09; Status DC Midazolam HCl (Versed) 2 mg STK-MED ONCE .ROUTE ; Start 01/17/17 at 10:08; Stop 01/17/17 at 10:09; Status DC Lidocaine/Sodium Bicarbonate (Buffered Lidocaine 1%) 20 ml 1X ONCE IJ Last administered on 01/17/17 10:51; Start 01/17/17 at 10:15; Stop 01/17/17 at 10:16 ; Status DC Midazolam HCl (Versed) 2 mg 1X ONCE IV Last administered on 01/17/17 10:52; Start 01/17/17 at 10:15; Stop 01/17/17 at 10:16; Status DC Fentanyl Citrate (Fentanyl 2ml Vial) 100 mcg 1X ONCE IV Last administered on 01/17/17 10:52; Start 01/17/17 at 10:15; Stop 01/17/17 at 10:16; Status DC Lidocaine/Sodium Bicarbonate (Buffered Lidocaine 1%) 20 ml STK-MED ONCE IJ ; Start 01/17/17 at 10:14; Stop 01/17/17 at 10:15; Status DC Active Scripts Active Reported Imodium A-D (Loperamide HCl) 2 Mg Capsule 2 Mg PO Aspirin 325 Mg Tablet 1 Tab PO DAILY Vitamin D3 (Cholecalciferol (Vitamin D3)) 1,000 Unit Tablet 2,000 Unit PO Vicodin Es 7.5-300 Mg Tablet (Hydrocodone Bit/Acetaminophen) 1 Each Tablet 1 Each PO Q6H PRN Humira (Adalimumab) 40 Mg/0.8 Ml Pen.ij.kit 1 Syr SQ Q2WKS Folbic Rf Tablet (B12/Levomefolate Calcium/B-6) 1 Each Tablet 1 Each PO Omeprazole 40 Mg Capsule.dr 1 Cap PO DAILY Cholestyramine Packet (Cholestyramine (With Sugar)) 4 Gm Powd.pack 4 Gm PO Gabapentin 600 Mg Tablet 600 Mg PO TID Folic Acid 1 Mg Tablet 1 Tab PO DAILY Clonidine Hcl 0.1 Mg Tablet 0.1 Mg PO BID Metformin Hcl 1,000 Mg Tablet 1,000 Mg PO BIDWMEALS Atorvastatin Calcium 40 Mg Tablet 1 Tab PO DAILY Metoprolol Succinate ( Xl ) (Metoprolol Succinate) 100 Mg Tab.er.24h 100 Mg PO BID Vitals/I & O Vital Sign - Last 24 Hours 01/16/17 01/16/17 01/16/17 01/16/17 13:56 16:51 18:12 19:30 Pulse Ox 99 99 99 O2 Delivery Nasal Cannula Nasal Cannula Nasal Cannula Nasal Cannula O2 Flow Rate 2.0 2.0 2.0 3.0 01/16/17 01/16/17 01/16/17 01/16/17 19:30 20:58 20:59 20:59 Temp 98.4 98.4 Pulse 58 68 68 Resp 18 18 B/P (MAP) 148/68 (94) 148/68 148/68 Pulse Ox 98 95 O2 Delivery Nasal Cannula Nasal Cannula O2 Flow Rate 3.0 01/16/17 01/16/17 01/17/17 01/17/17 23:00 23:00 00:20 03:05 Temp 97.7 98.8 97.7 98.8 Pulse 83 67 Resp 18 18 18 19 B/P (MAP) 158/65 (96) 108/71 (83) Pulse Ox 96 97 98 98 O2 Delivery Nasal Cannula Nasal Cannula Nasal Cannula O2 Flow Rate 3.0 3.0 2.0 01/17/17 01/17/17 01/17/17 01/17/17 05:29 05:59 07:00 08:00 Temp 97.6 97.6 Pulse 66 Resp 18 16 18 B/P (MAP) 157/68 (97) Pulse Ox 95 100 99 O2 Delivery Nasal Cannula Nasal Cannula Nasal Cannula Nasal Cannula O2 Flow Rate 2.0 2.0 2.0 01/17/17 01/17/17 01/17/17 01/17/17 08:54 08:55 10:00 10:22 Pulse 75 62 Resp 28 B/P (MAP) 157/68 Pulse Ox 100 O2 Delivery Nasal Cannula Nasal Cannula Nasal Cannula O2 Flow Rate 2.0 2.0 2.0 01/17/17 01/17/17 01/17/17 01/17/17 10:27 10:32 10:37 10:42 Pulse 86 75 87 74 Resp 16 16 12 15 Pulse Ox 100 99 95 94 O2 Delivery Nasal Cannula Nasal Cannula Nasal Cannula Nasal Cannula O2 Flow Rate 2.0 2.0 2.0 2.0 01/17/17 01/17/17 01/17/17 01/17/17 10:47 10:50 10:52 10:53 Pulse 73 73 76 Resp 15 15 16 16 Pulse Ox 95 95 95 95 O2 Delivery Nasal Cannula Nasal Cannula Nasal Cannula Nasal Cannula O2 Flow Rate 2.0 2.0 2.0 2.0 01/17/17 01/17/17 11:10 12:01 Pulse 68 71 Resp 20 B/P (MAP) 100/53 (69) 115/56 Pulse Ox 97 O2 Delivery Nasal Cannula O2 Flow Rate 3.0 Intake and Output 01/17/17 01/17/17 01/18/17 14:59 22:59 06:59 Intake Total 150 ml Output Total 350 ml Balance -200 ml PINEDA FIELDS MD Jan 17, 2017 13:04
--- NOTE | 2017-01-17 13:28 | RAD ---
CT-guided biopsy of lytic/destructive mass within the L3 vertebrae 01/17/2017 Discussion: The risks and benefits of the procedure discussed the patient and his . Informed consent was obtained. A timeout procedure was performed. The patient was placed in the prone position on the CT scanner. A timeout procedure was performed. CT imaging redemonstrates a lytic lesion involving the majority of the L3 vertebra. Lesion extends through the left-sided pedicle and posterior elements. A left-sided transpedicular approach was chosen. The posterior back was prepped and draped using maximum sterile barrier technique. 1% lidocaine was administered for local anesthesia. A 17-gauge guiding needle was advanced to the periphery of the lesion. Multiple 18-gauge core biopsy samples were obtained. The needle was removed and manual pressure held. Repeat imaging was performed demonstrating no immediate complications. The patient tolerated the procedure well. The procedure was performed under conscious sedation including continuous cardiopulmonary monitoring via dedicated sedation nurse. Sedation time: 30 minutes. Impression: CT-guided biopsy of lytic lesion involving the L3 vertebra.
--- NOTE | 2017-01-17 14:11 | PDOC ---
PROGRESS NOTES Chief Complaint Chief Complaint Syncope and collapse ASSESSMENT AND PLAN: 1. Syncope: ruled out for ACS; cardiology following, echo pending. suspect due to dehydration/vasovagal rxn 2. Back pain: partly trauma, partly new-found mass at L3. treat symptomatically. titrate oxy to comfort with activity 3. L3 spinal mass: highly suspicious for malignancy. no soft tissue lesions seen on non-con CT, but mult other bone lesions, both lytic and sclerotic. bone scan pending. Bx done this AM, labs pending. may need PET on O/P basis. Dr Servin following 4. Renal mass vs complex cyst: renal US pending 5. ANDREINA on CKD: creat improved to ?baseline; now stable ~1.5. monitor 7. DM2: hold metformin for now. in ISS with good control. 8. 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 iron/ferritin WNL, B12 pending 9. Dyspnea: V/Q scan low probability for PE. does have ALESIA (using CPAP), also suspected hypoventilation syndrome, no COPD dx. 10. PAF: currently in NSR. will need OAC when bx complete 11. CAD: hx mult stents; no acute issues. cont 2ary prevention meds 12. Crohn's: in immunosuppressive meds (Humira q2 weeks) 13. Alcoholism: daily clyde and scotch. no apparent W/D sx History of Present Illness History of Present Illness remains upbeat with the new suspected dx. pain keeps him from moving much. no other c/o Vitals Vitals Vital Signs Date Time Temp Pulse Resp B/P (MAP) Pulse Ox O2 Delivery O2 Flow Rate FiO2 01/17/17 12:01 71 115/56 01/17/17 11:10 20 97 Nasal Cannula 3.0 01/17/17 07:00 97.6 97.6 Physical Exam General: Alert, Oriented X3, Cooperative, No acute distress Heart: Normal S1, Normal S2 Abdomen: Normal bowel sounds, Soft, No tenderness, Other (obese) Extremities: No clubbing, Other (1+ bilateral LE pitting edema) Skin: No breakdown, No significant lesion Labs LABS Laboratory Tests Test 01/16/17 13:50 01/16/17 14:00 01/16/17 17:38 01/16/17 20:49 White Blood Count 6.6 x10^3/uL (4.0-11.0) Red Blood Count 2.73 x10^6/uL (4.30-5.70) Hemoglobin 8.7 g/dL (13.0-17.5) Hematocrit 27.0 % (39.0-53.0) Mean Corpuscular Volume 99 fL (79-100) Mean Corpuscular Hemoglobin 32 pg (25-35) Mean Corpuscular Hemoglobin Concent 32 g/dL (31-37) Red Cell Distribution Width 15.3 % (11.5-14.5) Platelet Count 162 x10^3/uL (140-400) Neutrophils (%) (Auto) 76 % (31-73) Lymphocytes (%) (Auto) 11 % (24-48) Monocytes (%) (Auto) 13 % (0-9) Eosinophils (%) (Auto) 0 % (0-3) Basophils (%) (Auto) 0 % (0-3) Neutrophils # (Auto) 5.0 x10^3uL (1.8-7.7) Lymphocytes # (Auto) 0.7 x10^3/uL (1.0-4.8) Monocytes # (Auto) 0.8 x10^3/uL (0.0-1.1) Eosinophils # (Auto) 0.0 x10^3/uL (0.0-0.7) Basophils # (Auto) 0.0 x10^3/uL (0.0-0.2) Reticulocyte Count (auto) 0.7 % (0.5-2.5) Heparin Anti-Xa Act, Unfractionated 0.45 IU/mL (0.30-0.70) Sodium Level 133 mmol/L (136-145) Potassium Level 4.2 mmol/L (3.5-5.1) Chloride Level 101 mmol/L (98-107) Carbon Dioxide Level 23 mmol/L (21-32) Anion Gap 9 (6-14) Blood Urea Nitrogen 23 mg/dL (8-26) Creatinine 1.9 mg/dL (0.7-1.3) Estimated GFR (Cockcroft-Gault) 35.1 BUN/Creatinine Ratio 12 (6-20) Glucose Level 156 mg/dL (70-99) Lactic Acid Level 2.5 mmol/L (0.4-2.0) Uric Acid 5.6 mg/dL (3.5-7.2) Calcium Level 8.0 mg/dL (8.5-10.1) Iron Level 103 ug/dL (65-175) Total Iron Binding Capacity 222 ug/dL (250-450) Iron Saturation 46 % (15-34) Ferritin 166 ng/mL (26-388) Total Bilirubin 1.4 mg/dL (0.2-1.0) Aspartate Amino Transf (AST/SGOT) 39 U/L (15-37) Alanine Aminotransferase (ALT/SGPT) 35 U/L (16-63) Alkaline Phosphatase 76 U/L (46-116) Lactate Dehydrogenase 168 U/L (85-227) Creatine Kinase 422 U/L (39-308) Total Protein 6.6 g/dL (6.4-8.2) Albumin 2.8 g/dL (3.4-5.0) Albumin/Globulin Ratio 0.7 (1.0-1.7) Urine Collection Type Unknown Urine Color Yellow Urine Clarity Clear Urine pH 5.5 Urine Specific [place] >=1.030 Urine Protein Negative mg/dL (NEG-TRACE) Urine Glucose (UA) Negative mg/dL (NEG) Urine Ketones (Stick) Negative mg/dL (NEG) Urine Blood Negative (NEG) Urine Nitrite Negative (NEG) Urine Bilirubin Negative (NEG) Urine Urobilinogen Dipstick 0.2 mg/dL (0.2 mg/dL) Urine Leukocyte Esterase Negative (NEG) Urine RBC 0 /HPF (0-2) Urine WBC 0 /HPF (0-4) Urine Squamous Epithelial Cells Mod /LPF Urine Amorphous Sediment Present /HPF Urine Bacteria 0 /HPF (0-FEW) Urine Mucus Mod /LPF Glucose (Fingerstick) 134 mg/dL (70-99) 139 mg/dL (70-99) Test 01/17/17 06:00 01/17/17 07:10 01/17/17 11:41 White Blood Count 5.7 x10^3/uL (4.0-11.0) Red Blood Count 2.42 x10^6/uL (4.30-5.70) Hemoglobin 7.8 g/dL (13.0-17.5) Hematocrit 23.9 % (39.0-53.0) Mean Corpuscular Volume 99 fL (79-100) Mean Corpuscular Hemoglobin 32 pg (25-35) Mean Corpuscular Hemoglobin Concent 33 g/dL (31-37) Red Cell Distribution Width 15.2 % (11.5-14.5) Platelet Count 120 x10^3/uL (140-400) Sodium Level 136 mmol/L (136-145) Potassium Level 4.7 mmol/L (3.5-5.1) Chloride Level 102 mmol/L (98-107) Carbon Dioxide Level 26 mmol/L (21-32) Anion Gap 8 (6-14) Blood Urea Nitrogen 20 mg/dL (8-26) Creatinine 1.5 mg/dL (0.7-1.3) Estimated GFR (Cockcroft-Gault) 46.1 Glucose Level 177 mg/dL (70-99) Lactic Acid Level 1.8 mmol/L (0.4-2.0) Calcium Level 8.1 mg/dL (8.5-10.1) Phosphorus Level 3.5 mg/dL (2.6-4.7) Magnesium Level 1.8 mg/dL (1.8-2.4) Albumin 2.9 g/dL (3.4-5.0) Glucose (Fingerstick) 166 mg/dL (70-99) 164 mg/dL (70-99) NELL FERNÁNDEZ MD Jan 17, 2017 14:10
[2017-01-17 14:39] LABS: VITAMIN-B12 479 pg/mL (247-911)
[2017-01-17 15:14] LABS: FOLATE > 24.00 ng/ml (3.2-20.0)
--- NOTE | 2017-01-17 16:44 | PDOC ---
CARDIO Progress Notes Date and Time Date of Service 01/17/2017 Time of Evaluation 1630 Subjective Subjective: No Chest Pain, No shortness of breath, No Palpitations, Other ( feels better today, appetite fair) Vitals Vitals Vital Signs Date Time Temp Pulse Resp B/P (MAP) Pulse Ox O2 Delivery O2 Flow Rate FiO2 01/17/17 15:02 98.2 63 19 136/69 (91) 98 Nasal Cannula 3.0 98.2 Weight Weight [ ] Input and Output Intake and Output Intake and Output 01/18/17 07:00 Intake Total 150 ml Output Total 350 ml Balance -200 ml Intake Oral 150 ml Output Urine Total 350 ml Laboratory Labs Laboratory Tests Test 01/16/17 17:38 01/16/17 20:49 01/17/17 06:00 01/17/17 07:10 Glucose (Fingerstick) 134 mg/dL (70-99) 139 mg/dL (70-99) 166 mg/dL (70-99) White Blood Count 5.7 x10^3/uL (4.0-11.0) Red Blood Count 2.42 x10^6/uL (4.30-5.70) Hemoglobin 7.8 g/dL (13.0-17.5) Hematocrit 23.9 % (39.0-53.0) Mean Corpuscular Volume 99 fL (79-100) Mean Corpuscular Hemoglobin 32 pg (25-35) Mean Corpuscular Hemoglobin Concent 33 g/dL (31-37) Red Cell Distribution Width 15.2 % (11.5-14.5) Platelet Count 120 x10^3/uL (140-400) Sodium Level 136 mmol/L (136-145) Potassium Level 4.7 mmol/L (3.5-5.1) Chloride Level 102 mmol/L (98-107) Carbon Dioxide Level 26 mmol/L (21-32) Anion Gap 8 (6-14) Blood Urea Nitrogen 20 mg/dL (8-26) Creatinine 1.5 mg/dL (0.7-1.3) Estimated GFR (Cockcroft-Gault) 46.1 Glucose Level 177 mg/dL (70-99) Lactic Acid Level 1.8 mmol/L (0.4-2.0) Calcium Level 8.1 mg/dL (8.5-10.1) Phosphorus Level 3.5 mg/dL (2.6-4.7) Magnesium Level 1.8 mg/dL (1.8-2.4) Albumin 2.9 g/dL (3.4-5.0) Vitamin B12 Level 479 pg/mL (247-911) Serum Folate > 24.00 ng/ml (3.2-20.0) Test 01/17/17 11:41 Glucose (Fingerstick) 164 mg/dL (70-99) Microbiology Micro Microbiology 01/15/17 Blood Culture - Preliminary, Resulted NO GROWTH AFTER 1 DAY Physical Exam HEENT: Neck Supple W Full Motion Chest: Symmetric LUNGS: Other (faint wheeze) Heart: S1S2, irregularly irregular (AFIB rate controlled) Abdomen: Soft N/T (truncal obesity) Extremities: No Calf Tenderness, Other (trace LE edema) Neurology: alert, oriented, follow commands Assessment Assessment 1. Syncope with traumatic fall: multifactorial including hypoxia with recent pneumonia with possible aspiration, ETOH dehydration and possible hypoglycemia. NO VTE 2. PAFIB: remains on AFIB rate controlled. No home OAC/NOAC. 3. Chronic diastolic CHF: acute mainly due to pulmonary issue and now compensated. EF 55% with normal LV systolic function 4. Lactic acidosis: with noted ANDREINA, metformin, ETOH use. much better. ID following 5. Alcoholism: 2 shots of scotch daily 6. Chronic immunosuppression: on Humira for Chron's 7. Anemia: Hgb 7.8 8. CAD: total x7 stents with last PCI 2002. Last MPI 2 yrs ago. 9. Possible CA with mets: suspicious with spine imaging with multiple vertebral compression fractures. Hemonc following 10. ALESIA: CPAP compliant with possible COPD from second hand smoking 11. HTN: controlled 12. HLP 13. DM2 Recommendations 1. Await hemonc workup 2. ASA for stroke prevention. Not a candidate at this time for NOAC due to significant drop in Hgb. When its clear with others and no other invasvie procedure then would recommend Eliquis 3. Continue with secondary prevention, supportive care. Continue toprol. 4. Limited records with [facility] in 2004 with diffuse disease and patent stents to OM. ADRIANNA RICE CRAB BACKER Jan 17, 2017 16:44
[2017-01-17] MEDS: PIPERACILLIN/TAZO IV Push 3.375 GM VIAL. IVP SCH ×2 (17:26→23:45)
--- NOTE | 2017-01-17 17:35 | PDOC ---
Provider Note Provider Note 71 yo man with lytic mass in L3 with low back pain. Doing well following CT guided biopsy of L3. Low back pain unchanged. Peripheral neuropathy also unchanged. Felling better overall. Tolerating steroid treatment well thus far. Impression: Lytic mass with soft tissue extension involving L3. Lytic lesions seen in C and T spine. All suggestive thus far for myeloma or lymphoma. Await bx result and bone scan. discussed with son and patient. CHERRY CINTRON MD Jan 17, 2017 17:35
[2017-01-17] MEDS: ATORVASTATIN CALCIUM 40 MG TABLET. PO SCH (20:06)
[2017-01-18] VITALS (7 sets, daily range): BP systolic 116–190; BP diastolic 52–84
[2017-01-18] MEDS: MORPHINE SULFATE 2 MG/ML DISP.SYRIN. IV PRN ×3 (01:27→19:30)
[2017-01-18 05:35] LABS: ALBUMIN 2.8 g/dL (3.4-5.0); CALCIUM 7.9 mg/dL (8.5-10.1); CREATININE 1.5 mg/dL (0.7-1.3); GFR 46.1; PHOSPHORUS 2.7 mg/dL (2.6-4.7); POTASSIUM 4.5 mmol/L (3.5-5.1)
[2017-01-18] MEDS: IV NORMAL SALINE 1000ML BAG 1,000 ML IV SCH (05:45)
[2017-01-18] MEDS: DEXAMETHASONE SOD PHOS 4 MG/ML VIAL IV SCH ×3 (05:58→20:17)
[2017-01-18] MEDS: oxyCODONE/APAP 10/325 1 TAB TABLET PO PRN ×2 (05:58→20:16)
[2017-01-18] MEDS: PIPERACILLIN/TAZO IV Push 3.375 GM VIAL. IVP SCH (06:00)
[2017-01-18] MEDS: HEPARIN PF for SUB-Q USE 5,000 UNIT/0.5 ML VIAL. SQ SCH ×3 (06:00→20:24)
[2017-01-18] MEDS: INSULIN ASPART 300 UNITS/3 ML INSULN.PEN SQ SCH ×3 (08:00→16:39)
[2017-01-18] MEDS: FOLIC ACID 1 MG TABLET. PO SCH (08:44)
[2017-01-18] MEDS: LACTOBACILLUS RHAMNOSUS GG 1 CAPSULE. PO SCH ×2 (08:44→20:16)
[2017-01-18] MEDS: GABAPENTIN 300 MG CAPSULE. PO SCH ×3 (08:45→20:17)
[2017-01-18] MEDS: CHOLECALCIFEROL (VITAMIN D3) 1,000 UNIT TABLET PO SCH (08:45)
[2017-01-18] MEDS: METOPROLOL SUCC 24HR ER 50 MG TAB.ER.24H. PO SCH ×2 (08:46→20:17)
[2017-01-18] MEDS: ASPIRIN 325 MG TABLET PO SCH (08:46)
[2017-01-18] MEDS: cloNIDine HCL 0.1 MG TABLET PO SCH ×2 (08:46→20:16)
[2017-01-18] MEDS: PANTOPRAZOLE 40 MG TABLET.DR. PO SCH (08:46)
--- NOTE | 2017-01-18 09:06 | PDOC ---
Infectious Disease Note Subjective Subjective pt feeling ok, significant back pain ROS ROS GEN: Denies fevers, chills, sweats HEENT: Denies blurred vision, sore throat CV: Denies chest pain RESP: Denies shortness of air, cough GI: Denies n/v/d NEURO: Denies confusion, dizziness MSK: Denies weakness, joint pain/swelling Vital Sign Vital Signs Vital Signs Date Time Temp Pulse Resp B/P (MAP) Pulse Ox O2 Delivery O2 Flow Rate FiO2 01/18/17 08:46 70 145/67 01/18/17 08:03 Nasal Cannula 2.0 01/18/17 07:00 98.3 19 93 98.3 Physical Exam PHYSICAL EXAM GENERAL: NAD, Alert HEENT: PERRL, OC/OP NECK: Supple, no JVD, no LN LUNGS: Clear HEART: S1S2, no gallop, no murmur ABD: Soft, NT, no organomegaly, no rebound EXT: No edema, no cyanosis [employer]: Alert, oriented x 3, no focal neurologic deficit SKIN: No rash IV: ok Labs Lab Laboratory Tests Test 01/17/17 11:41 01/17/17 16:45 01/17/17 20:43 01/18/17 04:40 Glucose (Fingerstick) 164 mg/dL (70-99) 155 mg/dL (70-99) 165 mg/dL (70-99) Sodium Level 138 mmol/L (136-145) Potassium Level 4.5 mmol/L (3.5-5.1) Chloride Level 104 mmol/L (98-107) Carbon Dioxide Level 25 mmol/L (21-32) Anion Gap 9 (6-14) Blood Urea Nitrogen 25 mg/dL (8-26) Creatinine 1.5 mg/dL (0.7-1.3) Estimated GFR (Cockcroft-Gault) 46.1 Glucose Level 153 mg/dL (70-99) Calcium Level 7.9 mg/dL (8.5-10.1) Phosphorus Level 2.7 mg/dL (2.6-4.7) Magnesium Level 1.9 mg/dL (1.8-2.4) Albumin 2.8 g/dL (3.4-5.0) Test 01/18/17 08:29 Glucose (Fingerstick) 147 mg/dL (70-99) Micro BC neg Objective Assessment Lactic acidosis Recent pneumonia Renal insufficiency Lumbar spine ? mets SOB Plan Plan of Care off antibiotics, will s/o, call if questions culture neg so far DMITRY HARTMANN MD Jan 18, 2017 09:05
--- NOTE | 2017-01-18 11:43 | PDOC ---
SUBJECTIVE ROS F/up CKD Doing OK OBJECTIVE Vital Signs Vital Signs Date Time Temp Pulse Resp B/P (MAP) Pulse Ox O2 Delivery O2 Flow Rate FiO2 01/18/17 11:20 100 Nasal Cannula 2.0 01/18/17 10:18 98.5 81 22 146/71 (96) 98.5 PHYSICAL EXAM Physical Exam General Appearance: Obese Awake: Alert Oriented x 2-3 Neck: No JVD or JVP Chest: CTA Elia Heart: S1 S2 Abdomen - Soft NTND Extremities - No Edema DIAGNOSIS/ASSESSMENT Assessment & Plan Assessment & Plan CKD III - given Cortical Thinning as noted on US - This may be his baseline - watch trend off of IVF Problems: COMMENT/RELEVANT DATA Meds Current Medications Medications (Trade) Dose Ordered Sig/Jose Start Time Stop Time Status Last Admin Dose Admin Albuterol Sulfate (Ventolin Neb Soln) 2.5 mg PRN Q3HRS PRN 01/15/17 23:30 01/16/17 11:24 2.5 MG Aspirin (Charmaine Aspirin) 325 mg [id number] 01/17/17 08:00 01/18/17 08:46 325 MG Atorvastatin Calcium (Lipitor) 40 mg QHS 01/16/17 21:00 01/17/17 20:06 40 MG Clonidine HCl (Catapres) 0.1 mg BID 01/16/17 21:00 01/18/17 08:46 0.1 MG Dexamethasone Sodium Phosphate (Decadron) 4 mg Q6HRS 01/17/17 00:00 01/18/17 05:58 4 MG Dextrose (Dextrose 50%-Water Syringe) 12.5 gm PRN Q15MIN PRN 01/16/17 16:45 Diazepam (Valium) 5 mg PRN Q6HRS PRN 01/16/17 18:45 01/17/17 20:05 5 MG Fentanyl Citrate (Fentanyl 2ml Vial) 100 mcg 1X ONCE 01/17/17 10:15 01/17/17 10:16 DC 01/17/17 10:52 100 MCG Folic Acid (Folic Acid) 1 mg DAILY 01/17/17 09:00 01/18/17 08:44 1 MG Gabapentin (Neurontin) 600 mg TID 01/16/17 21:00 01/18/17 08:45 600 MG Heparin Sodium (Porcine) (Heparin Sodium) 1,750 unit PRN Q6HRS PRN 01/15/17 23:15 01/16/17 16:41 DC Heparin Sodium (Porcine) (Heparin Sq) 5,000 unit Q8HRS 01/16/17 22:00 01/18/17 06:00 5,000 UNIT Heparin Sodium/ Dextrose 500 ml @ 0 mls/hr CONT PRN 01/15/17 23:15 01/16/17 16:41 DC 01/16/17 16:26 30.4 MLS/HR Info (Anti-Coagulation Monitoring By Pharmacy) 1 each PRN DAILY PRN 01/16/17 09:45 Cancel Info (Do NOT chart on this entry -- for MONITORING) 1 each PRN DAILY PRN 01/16/17 12:00 01/18/17 11:59 Insulin Aspart (NovoLOG) 0-9 UNITS TIDWMEALS 01/16/17 17:00 01/17/17 17:37 4 UNITS Iohexol (Omnipaque 240 Mg/ml) 30 ml 1X ONCE 01/16/17 12:00 01/16/17 12:01 DC Lactobacillus Rhamnosus (Culturelle) 1 cap BID 01/16/17 21:00 01/18/17 08:44 1 CAP Lidocaine/Sodium Bicarbonate (Buffered Lidocaine 1%) 20 ml STK-MED ONCE 01/17/17 10:14 01/17/17 10:15 DC Linezolid 300 ml @ 300 mls/hr Q12HR 01/16/17 12:00 01/17/17 08:14 DC 01/16/17 20:58 300 MLS/HR Loperamide HCl (Imodium) 2 mg Q2H PRN 01/16/17 16:45 Magnesium Sulfate/ Dextrose 50 ml @ 25 mls/hr PRN DAILY PRN 01/16/17 13:15 Metoprolol Succinate (Toprol Xl) 100 mg BID 01/16/17 21:00 UNV Midazolam HCl (Versed) 2 mg 1X ONCE 01/17/17 10:15 01/17/17 10:16 DC 01/17/17 10:52 1 MG Morphine Sulfate 2 mg PRN Q2HR PRN 01/16/17 16:45 01/18/17 10:51 2 MG Ondansetron HCl (Zofran) 4 mg PRN Q8HRS PRN 01/15/17 23:15 01/16/17 23:14 DC Oxycodone/ Acetaminophen (Percocet ) 1 tab PRN Q4HRS PRN 01/16/17 16:45 01/18/17 05:58 1 TAB Pantoprazole Sodium (Protonix) 40 mg DAILYAC 01/17/17 07:30 01/18/17 08:46 40 MG Piperacillin Sod/ Tazobactam Sod (Zosyn Per Pharmacy) 1 each PRN DAILY PRN 01/16/17 02:45 01/17/17 16:01 DC Piperacillin Sod/ Tazobactam Sod (Zosyn) 3.375 gm Q6HRS 01/17/17 18:00 01/18/17 10:42 DC 01/18/17 06:00 3.375 GM Piperacillin Sod/ Tazobactam Sod 3.375 gm/Dextrose 50 ml @ 100 mls/hr 1X ONCE 01/15/17 23:30 01/15/17 23:59 DC 01/15/17 23:22 100 MLS/HR Sodium Chloride 1,000 ml @ 100 mls/hr Q10H 01/16/17 13:45 01/18/17 05:45 100 MLS/HR Vitamin D (Vitamin D3) 2,000 unit DAILY 01/17/17 09:00 01/18/17 08:45 2,000 UNIT Warfarin Sodium (Coumadin Per Pharmacy) 1 each PRN DAILY PRN 01/15/17 23:15 01/16/17 16:39 DC 01/16/17 10:20 1 EACH Warfarin Sodium (Coumadin) 5 mg 1X WARF ONCE 01/16/17 16:00 01/16/17 16:39 DC Lab Laboratory Tests Test 01/17/17 16:45 01/17/17 20:43 01/18/17 04:40 01/18/17 08:29 Glucose (Fingerstick) 155 mg/dL (70-99) 165 mg/dL (70-99) 147 mg/dL (70-99) Sodium Level 138 mmol/L (136-145) Potassium Level 4.5 mmol/L (3.5-5.1) Chloride Level 104 mmol/L (98-107) Carbon Dioxide Level 25 mmol/L (21-32) Anion Gap 9 (6-14) Blood Urea Nitrogen 25 mg/dL (8-26) Creatinine 1.5 mg/dL (0.7-1.3) Estimated GFR (Cockcroft-Gault) 46.1 Glucose Level 153 mg/dL (70-99) Calcium Level 7.9 mg/dL (8.5-10.1) Phosphorus Level 2.7 mg/dL (2.6-4.7) Magnesium Level 1.9 mg/dL (1.8-2.4) Albumin 2.8 g/dL (3.4-5.0) Test 01/18/17 11:14 Glucose (Fingerstick) 152 mg/dL (70-99) SERVANDO HARTMANN MD Jan 18, 2017 11:43
--- NOTE | 2017-01-18 13:23 | RAD ---
Whole body bone scan Indications: Osteolytic lesions on CT. Left-sided rib pain after fall 3 days ago. Low back pain. Comparison: No previous bone scan available. CT study of the chest and abdomen and pelvis dated January 16, 2017. CT study of the cervical and thoracic and lumbar spine dated January 15, 2017. Technique: After IV infusion of 24.9 mCi of technetium 99m MDP, delayed anterior and posterior planar images of the whole body were performed. Findings: There is a photopenic area involving the L3 through body which corresponds to the CT abnormality of the diffuse infiltrative lesion. Otherwise no increased or tracer uptake is seen here. There is a focus of increased radiotracer uptake involving the anterior left rib cage in the region of the seventh rib. However, additional lateral fractures of the left fourth and fifth and seventh ribs ribs were evident on the chest CT. The lack of radiotracer uptake in these acute appearing fractures may be secondary to a marrow infiltrative process therefore. No uptake is seen involving the cervical spine to correspond to the osseous sclerotic lesions seen on the cervical spine CT dated January 15, 2017. Renal uptake is present bilaterally. IMPRESSION: There is a photopenic area involving L3 corresponding to the infiltrative lesion seen on CT. No significant radiotracer uptake is seen here otherwise. This finding may be seen with multiple myeloma since multiple myeloma including diffuse multiple myeloma may not be hot on a bone scan. MRI imaging of the spine may be beneficial to evaluate for marrow infiltrative process at other levels. In addition, there is no significant uptake involving the left fourth and fifth rib fracture seen previously. These fractures appear acute on the chest CT. Therefore, this could be secondary to a marrow infiltrative process involving these ribs. No significant uptake is seen involving the cervical spine to correspond to the osseous sclerotic lesions seen on CT. Therefore, this could represent bone islands rather than osseous metastatic disease but correlation with a PSA is still recommended.
--- NOTE | 2017-01-18 13:25 | PATHOLOGY ---
PATHOLOGY REPORT * * * * * * * * FINAL DIAGNOSIS: L3 bone biopsy: - Recent hemorrhage. See comment. (JPM:pit; 01/18/2017) COMMENT: Sections of the L3 bone biopsy reveal cores of red blood cells, fibrin and inflammatory cells consistent with recent hemorrhage. There are no bony spicules. There are focal admixed hematopoietic elements. There is no evidence of malignancy. The results are discussed with Dr. Norris on 01/18/17. (JPM:pit; 01/18/2017) REPORT ELECTRONICALLY SIGNED BY: Jesse Gonzalez M.D. DATE/TIME: 01/18/2017 13:25 * * * * * * * * GROSS PATHOLOGY: Received in formalin labeled "Jesse Lee, L3 bone BX," are 5 distinct needle cores of hanye soft tissue ranging from 0.1 to 0.8 cm in length, which are submitted entirely in cassette A1 through A3. (TSD; 01/17/2017) INITIAL CPT CODE(S): A; 46163, 76883 Professional services performed by [facility] [place] [address] Technical services performed by [facility] at [address] [place] [address] [address], [place] [address]. SPECIMEN(S) RECEIVED: A.L3 bone biopsy CLINICAL HISTORY: L3 lytic lesion, possible mets with unknown primary PATIENT: JESSE LEE /AGE: 9 1945 (Age: 71) PATIENT #: [id number] ALT CASE #: SPECIMEN COLLECTION DATE: 01/17/2017 SPECIMEN RECEIVED DATE: 01/17/2017 [facility] - [address] [place] [address] - PHONE: [phone] * * * END OF REPORT * * *
--- NOTE | 2017-01-18 13:38 | PDOC ---
PROGRESS NOTES Subjective Subjective HPI- Osteolytic bone lesions ROS - has back pain Objective Objective Vital Signs Date Time Temp Pulse Resp B/P (MAP) Pulse Ox O2 Delivery O2 Flow Rate FiO2 01/18/17 11:20 100 Nasal Cannula 2.0 01/18/17 10:18 98.5 81 22 146/71 (96) 98.5 Physical Exam Heart: Normal S1, Normal S2 General: Alert, Oriented X3 Lungs: Clear to auscultation Neuro: Normal speech Psych/Mental Status: Mental status NL Assessment Assessment Problems Medical Problems: (1) Elevated d-dimer Status: Acute (2) Elevated serum creatinine Status: Acute (3) Hypoxia Status: Acute (4) Lactic acidosis Status: Acute (5) 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 Osteolytic bone lesions. This is clinically concerning for metastatic focus. He also has multiple other lesions in the spine. I discussed in detail with the patient and family. Since the CT chest, abdomen and pelvis did not reveal a clear primary focus I would pursue with a biopsy of the L3 vertebral lesion - done 01/17/17. PSA normal. The patient has already been started on Decadron 4 mg q. 6 hours. Appreciate consult Radiation Oncology. Bone scan does not reveal uptake and hence multiple myeloma is suspected. Plan skeletal survey and BM bx. 2. Left renal lesion, u/s ultrasound of the kidney does not reveal malignancy. 3. Bone lesions. 4. Anemia. This is likely secondary to malignancy. I will continue to monitor. Comment Review of Relevant I have reviewed the following items bernadine (where applicable) has been applied. Labs Laboratory Tests Test 01/16/17 13:50 01/16/17 14:00 01/16/17 17:38 01/16/17 20:49 White Blood Count 6.6 x10^3/uL (4.0-11.0) Red Blood Count 2.73 x10^6/uL (4.30-5.70) Hemoglobin 8.7 g/dL (13.0-17.5) Hematocrit 27.0 % (39.0-53.0) Mean Corpuscular Volume 99 fL (79-100) Mean Corpuscular Hemoglobin 32 pg (25-35) Mean Corpuscular Hemoglobin Concent 32 g/dL (31-37) Red Cell Distribution Width 15.3 % (11.5-14.5) Platelet Count 162 x10^3/uL (140-400) Neutrophils (%) (Auto) 76 % (31-73) Lymphocytes (%) (Auto) 11 % (24-48) Monocytes (%) (Auto) 13 % (0-9) Eosinophils (%) (Auto) 0 % (0-3) Basophils (%) (Auto) 0 % (0-3) Neutrophils # (Auto) 5.0 x10^3uL (1.8-7.7) Lymphocytes # (Auto) 0.7 x10^3/uL (1.0-4.8) Monocytes # (Auto) 0.8 x10^3/uL (0.0-1.1) Eosinophils # (Auto) 0.0 x10^3/uL (0.0-0.7) Basophils # (Auto) 0.0 x10^3/uL (0.0-0.2) Reticulocyte Count (auto) 0.7 % (0.5-2.5) Heparin Anti-Xa Act, Unfractionated 0.45 IU/mL (0.30-0.70) Sodium Level 133 mmol/L (136-145) Potassium Level 4.2 mmol/L (3.5-5.1) Chloride Level 101 mmol/L (98-107) Carbon Dioxide Level 23 mmol/L (21-32) Anion Gap 9 (6-14) Blood Urea Nitrogen 23 mg/dL (8-26) Creatinine 1.9 mg/dL (0.7-1.3) Estimated GFR (Cockcroft-Gault) 35.1 BUN/Creatinine Ratio 12 (6-20) Glucose Level 156 mg/dL (70-99) Lactic Acid Level 2.5 mmol/L (0.4-2.0) Uric Acid 5.6 mg/dL (3.5-7.2) Calcium Level 8.0 mg/dL (8.5-10.1) Iron Level 103 ug/dL (65-175) Total Iron Binding Capacity 222 ug/dL (250-450) Iron Saturation 46 % (15-34) Ferritin 166 ng/mL (26-388) Total Bilirubin 1.4 mg/dL (0.2-1.0) Aspartate Amino Transf (AST/SGOT) 39 U/L (15-37) Alanine Aminotransferase (ALT/SGPT) 35 U/L (16-63) Alkaline Phosphatase 76 U/L (46-116) Lactate Dehydrogenase 168 U/L (85-227) Creatine Kinase 422 U/L (39-308) Total Protein 6.6 g/dL (6.4-8.2) Albumin 2.8 g/dL (3.4-5.0) Albumin/Globulin Ratio 0.7 (1.0-1.7) Urine Collection Type Unknown Urine Color Yellow Urine Clarity Clear Urine pH 5.5 Urine Specific [place] >=1.030 Urine Protein Negative mg/dL (NEG-TRACE) Urine Glucose (UA) Negative mg/dL (NEG) Urine Ketones (Stick) Negative mg/dL (NEG) Urine Blood Negative (NEG) Urine Nitrite Negative (NEG) Urine Bilirubin Negative (NEG) Urine Urobilinogen Dipstick 0.2 mg/dL (0.2 mg/dL) Urine Leukocyte Esterase Negative (NEG) Urine RBC 0 /HPF (0-2) Urine WBC 0 /HPF (0-4) Urine Squamous Epithelial Cells Mod /LPF Urine Amorphous Sediment Present /HPF Urine Bacteria 0 /HPF (0-FEW) Urine Mucus Mod /LPF Urine Random Sodium 63 mmol/L (Not Estab.) Glucose (Fingerstick) 134 mg/dL (70-99) 139 mg/dL (70-99) Test 01/17/17 06:00 01/17/17 07:10 01/17/17 11:41 01/17/17 16:45 White Blood Count 5.7 x10^3/uL (4.0-11.0) Red Blood Count 2.42 x10^6/uL (4.30-5.70) Hemoglobin 7.8 g/dL (13.0-17.5) Hematocrit 23.9 % (39.0-53.0) Mean Corpuscular Volume 99 fL (79-100) Mean Corpuscular Hemoglobin 32 pg (25-35) Mean Corpuscular Hemoglobin Concent 33 g/dL (31-37) Red Cell Distribution Width 15.2 % (11.5-14.5) Platelet Count 120 x10^3/uL (140-400) Sodium Level 136 mmol/L (136-145) Potassium Level 4.7 mmol/L (3.5-5.1) Chloride Level 102 mmol/L (98-107) Carbon Dioxide Level 26 mmol/L (21-32) Anion Gap 8 (6-14) Blood Urea Nitrogen 20 mg/dL (8-26) Creatinine 1.5 mg/dL (0.7-1.3) Estimated GFR (Cockcroft-Gault) 46.1 Glucose Level 177 mg/dL (70-99) Lactic Acid Level 1.8 mmol/L (0.4-2.0) Calcium Level 8.1 mg/dL (8.5-10.1) Phosphorus Level 3.5 mg/dL (2.6-4.7) Magnesium Level 1.8 mg/dL (1.8-2.4) Albumin 2.9 g/dL (3.4-5.0) Vitamin B12 Level 479 pg/mL (247-911) Serum Folate > 24.00 ng/ml (3.2-20.0) Glucose (Fingerstick) 166 mg/dL (70-99) 164 mg/dL (70-99) 155 mg/dL (70-99) Test 01/17/17 20:43 01/18/17 04:40 01/18/17 08:29 01/18/17 11:14 Glucose (Fingerstick) 165 mg/dL (70-99) 147 mg/dL (70-99) 152 mg/dL (70-99) Sodium Level 138 mmol/L (136-145) Potassium Level 4.5 mmol/L (3.5-5.1) Chloride Level 104 mmol/L (98-107) Carbon Dioxide Level 25 mmol/L (21-32) Anion Gap 9 (6-14) Blood Urea Nitrogen 25 mg/dL (8-26) Creatinine 1.5 mg/dL (0.7-1.3) Estimated GFR (Cockcroft-Gault) 46.1 Glucose Level 153 mg/dL (70-99) Calcium Level 7.9 mg/dL (8.5-10.1) Phosphorus Level 2.7 mg/dL (2.6-4.7) Magnesium Level 1.9 mg/dL (1.8-2.4) Albumin 2.8 g/dL (3.4-5.0) Laboratory Tests Test 01/17/17 16:45 01/17/17 20:43 01/18/17 04:40 01/18/17 08:29 Glucose (Fingerstick) 155 mg/dL (70-99) 165 mg/dL (70-99) 147 mg/dL (70-99) Sodium Level 138 mmol/L (136-145) Potassium Level 4.5 mmol/L (3.5-5.1) Chloride Level 104 mmol/L (98-107) Carbon Dioxide Level 25 mmol/L (21-32) Anion Gap 9 (6-14) Blood Urea Nitrogen 25 mg/dL (8-26) Creatinine 1.5 mg/dL (0.7-1.3) Estimated GFR (Cockcroft-Gault) 46.1 Glucose Level 153 mg/dL (70-99) Calcium Level 7.9 mg/dL (8.5-10.1) Phosphorus Level 2.7 mg/dL (2.6-4.7) Magnesium Level 1.9 mg/dL (1.8-2.4) Albumin 2.8 g/dL (3.4-5.0) Test 01/18/17 11:14 Glucose (Fingerstick) 152 mg/dL (70-99) Microbiology 01/15/17 Blood Culture - Preliminary, Resulted NO GROWTH AFTER 2 DAYS Medications Current Medications Fentanyl Citrate (Fentanyl 2ml Vial) 50 mcg 1X ONCE IV Last administered on 21:52; Start 01/15/17 at 22:00; Stop 01/15/17 at 22:01; Status DC Sodium Chloride 1,000 ml @ 150 mls/hr 1X ONCE IV Last administered on 22:31; Start 01/15/17 at 22:00; Stop 01/16/17 at 04:39; Status DC Piperacillin Sod/ Tazobactam Sod 3.375 gm/Dextrose 50 ml @ 100 mls/hr 1X ONCE IV Last administered on 01/15/17 23:22; Start 01/15/17 at 23:30; Stop 01/15 at 23:59; Status DC Heparin Sodium (Porcine) (Heparin Sodium) 9,450 unit 1X ONCE IV Last administered on 01/15/17 23:30; Start 01/15/17 at 23:30; Stop 01/16/17 at 16 :41; Status DC Heparin Sodium/ Dextrose 500 ml @ 0 mls/hr CONT PRN IV SEE I/O RECORD Last administered on 01/16/17 16:26; Start 01/15/17 at 23:15; Stop 01/16/17 at 16 :41; Status DC Heparin Sodium (Porcine) (Heparin Sodium) 3,550 unit PRN Q6HRS PRN IV FOR UFH LEVEL LESS THAN 0.2; Start 01/15/17 at 23:15; Stop 01/16/17 at 16:41; Status DC Heparin Sodium (Porcine) (Heparin Sodium) 1,750 unit PRN Q6HRS PRN IV FOR UFH LEVEL 0.2 - 0.29; Start 01/15/17 at 23:15; Stop 01/16/17 at 16:41; Status DC Warfarin Sodium (Coumadin Per Pharmacy) 1 each PRN DAILY PRN MC PER PROTOCOL Last administered on 01/16/17 10:20; Start 01/15/17 at 23:15; Stop 01/16/17 at 16:39; Status DC Info (Anti-Coagulation Monitoring By Pharmacy) 1 each PRN DAILY PRN MC SEE COMMENTS Last administered on 01/16/17 10:17; Start 01/15/17 at 23:30 Ondansetron HCl (Zofran) 4 mg PRN Q8HRS PRN IV NAUSEA/VOMITING; Start at 23:15; Stop 01/16/17 at 23:14; Status DC Fentanyl Citrate (Fentanyl 2ml Vial) 50 mcg PRN Q2HR PRN IV SEVERE PAIN Last administered on 01/16/17 01:33; Start 01/15/17 at 23:15; Stop 01/16/17 at 02 :47; Status DC Piperacillin Sod/ Tazobactam Sod (Zosyn Per Pharmacy) 1 each PRN DAILY PRN MC SEE COMMENTS; Start 01/15/17 at 23:15; Stop 01/16/17 at 02:54; Status DC Sodium Chloride 1,000 ml @ 150 mls/hr 1X ONCE IV Last administered on 01:34; Start 01/15/17 at 23:45; Stop 01/16/17 at 06:24; Status DC Albuterol Sulfate (Ventolin Neb Soln) 2.5 mg PRN Q3HRS PRN NEB WHEEZING Last administered on 01/16/17 11:24; Start 01/15/17 at 23:30 Morphine Sulfate 2 mg 1X ONCE IV Last administered on 01/15/17 23:47; Start 01/16/17 at 00:00; Stop 01/16/17 at 00:01; Status DC Fentanyl Citrate (Fentanyl 2ml Vial) 75 mcg PRN Q2HR PRN IV SEVERE PAIN Last administered on 01/16/17 13:56; Start 01/16/17 at 02:45; Stop 01/16/17 at 16 :41; Status DC Piperacillin Sod/ Tazobactam Sod (Zosyn Per Pharmacy) 1 each PRN DAILY PRN MC SEE COMMENTS; Start 01/16/17 at 02:45; Stop 01/17/17 at 16:01; Status DC Piperacillin Sod/ Tazobactam Sod (Zosyn) 2.25 gm Q6HRS IVP Last administered on 01/17/17 12:01; Start 01/16/17 at 06:00; Stop 01/17/17 at 16:01; Status DC Info (Anti-Coagulation Monitoring By Pharmacy) 1 each PRN DAILY PRN MC SEE COMMENTS; Start 01/16/17 at 09:45; Status Cancel Warfarin Sodium (Coumadin) 5 mg 1X WARF ONCE PO ; Start 01/16/17 at 16:00; Stop 01/16/17 at 16:39; Status DC Lactobacillus Rhamnosus (Culturelle) 1 cap BID PO Last administered on 08:44; Start 01/16/17 at 21:00 Magnesium Sulfate/ Dextrose 50 ml @ 25 mls/hr 1X ONCE IV Last administered on 01/16/17 12:45; Start 01/16/17 at 11:30; Stop 01/16/17 at 13:29; Status DC Linezolid 300 ml @ 300 mls/hr Q12HR IV Last administered on 01/16/17 20:58; Start 01/16/17 at 12:00; Stop 01/17/17 at 08:14; Status DC Iohexol (Omnipaque 240 Mg/ml) 30 ml 1X ONCE PO ; Start 01/16/17 at 12:00; Stop 01/16/17 at 12:01; Status DC Info (Do NOT chart on this entry -- for MONITORING) 1 each PRN DAILY PRN MC SEE COMMENTS; Start 01/16/17 at 12:00; Stop 01/18/17 at 11:59; Status DC Magnesium Sulfate/ Dextrose 50 ml @ 25 mls/hr PRN DAILY PRN IV for Mag < 1.7 on am labs; Start 01/16/17 at 13:15 Metoprolol Succinate (Toprol Xl) 50 mg BID PO Last administered on 01/17/17 20 :06; Start 01/16/17 at 21:00 Sodium Chloride 1,000 ml @ 100 mls/hr Q10H IV Last administered on 01/18/17 05:45; Start 01/16/17 at 13:45; Stop 01/18/17 at 11:44; Status DC Aspirin (PaySimple Aspirin) 325 mg DAILYWBKFT PO Last administered on 01/18/17 08: 46; Start 01/17/17 at 08:00 Atorvastatin Calcium (Lipitor) 40 mg QHS PO Last administered on 01/17/17 20: 06; Start 01/16/17 at 21:00 Vitamin D (Vitamin D3) 2,000 unit DAILY PO Last administered on 01/18/17 08:45 ; Start 01/17/17 at 09:00 Clonidine HCl (Catapres) 0.1 mg BID PO Last administered on 01/18/17 08:46; Start 01/16/17 at 21:00 Folic Acid (Folic Acid) 1 mg DAILY PO Last administered on 01/18/17 08:44; Start 01/17/17 at 09:00 Loperamide HCl (Imodium) 2 mg Q2H PRN PO diarrhea; Start 01/16/17 at 16:45 Metoprolol Succinate (Toprol Xl) 100 mg BID PO ; Start 01/16/17 at 21:00; Status UNV Gabapentin (Neurontin) 600 mg TID PO Last administered on 01/18/17 08:45; Start 01/16/17 at 21:00 Pantoprazole Sodium (Protonix) 40 mg DAILYAC PO Last administered on 01/18/17 08:46; Start 01/17/17 at 07:30 Insulin Aspart (NovoLOG) 0-9 UNITS TIDWMEALS SQ Last administered on 01/17/17 17:37; Start 01/16/17 at 17:00 Dextrose (Dextrose 50%-Water Syringe) 12.5 gm PRN Q15MIN PRN IV SEE COMMENTS; Start 01/16/17 at 16:45 Dexamethasone Sodium Phosphate (Decadron) 10 mg 1X ONCE IV Last administered on 01/16/17 17:05; Start 01/16/17 at 16:45; Stop 01/16/17 at 16:46; Status DC Dexamethasone Sodium Phosphate (Decadron) 4 mg Q6HRS IV Last administered on 05:58; Start 01/17/17 at 00:00 Morphine Sulfate 2 mg PRN Q2HR PRN IV PAIN Last administered on 01/18/17 10:51 ; Start 01/16/17 at 16:45 Oxycodone/ Acetaminophen (Percocet 10/325) 1 tab PRN Q4HRS PRN PO pain Last administered on 01/18/17 05:58; Start 01/16/17 at 16:45 Heparin Sodium (Porcine) (Heparin Sq) 5,000 unit Q8HRS SQ Last administered on 01/18/17 06:00; Start 01/16/17 at 22:00 Diazepam (Valium) 5 mg PRN Q6HRS PRN IV SEIZURES; Start 01/16/17 at 18:30; Status Cancel Diazepam (Valium) 5 mg PRN Q6HRS PRN PO TREMORS Last administered on 01/17/17 20:05; Start 01/16/17 at 18:45 Fentanyl Citrate (Fentanyl 2ml Vial) 100 mcg STK-MED ONCE .ROUTE ; Start at 10:08; Stop 01/17/17 at 10:09; Status DC Midazolam HCl (Versed) 2 mg STK-MED ONCE .ROUTE ; Start 01/17/17 at 10:08; Stop 01/17/17 at 10:09; Status DC Lidocaine/Sodium Bicarbonate (Buffered Lidocaine 1%) 20 ml 1X ONCE IJ Last administered on 01/17/17 10:51; Start 01/17/17 at 10:15; Stop 01/17/17 at 10:16 ; Status DC Midazolam HCl (Versed) 2 mg 1X ONCE IV Last administered on 01/17/17 10:52; Start 01/17/17 at 10:15; Stop 01/17/17 at 10:16; Status DC Fentanyl Citrate (Fentanyl 2ml Vial) 100 mcg 1X ONCE IV Last administered on 01/17/17 10:52; Start 01/17/17 at 10:15; Stop 01/17/17 at 10:16; Status DC Lidocaine/Sodium Bicarbonate (Buffered Lidocaine 1%) 20 ml STK-MED ONCE IJ ; Start 01/17/17 at 10:14; Stop 01/17/17 at 10:15; Status DC Piperacillin Sod/ Tazobactam Sod (Zosyn) 3.375 gm Q6HRS IVP Last administered on 01/18/17 06:00; Start 01/17/17 at 18:00; Stop 01/18/17 at 10:42; Status DC Active Scripts Active Reported Imodium A-D (Loperamide HCl) 2 Mg Capsule 2 Mg PO Aspirin 325 Mg Tablet 1 Tab PO DAILY Vitamin D3 (Cholecalciferol (Vitamin D3)) 1,000 Unit Tablet 2,000 Unit PO Vicodin Es 7.5-300 Mg Tablet (Hydrocodone Bit/Acetaminophen) 1 Each Tablet 1 Each PO Q6H PRN Humira (Adalimumab) 40 Mg/0.8 Ml Pen.ij.kit 1 Syr SQ Q2WKS Folbic Rf Tablet (B12/Levomefolate Calcium/B-6) 1 Each Tablet 1 Each PO Omeprazole 40 Mg Capsule.dr 1 Cap PO DAILY Cholestyramine Packet (Cholestyramine (With Sugar)) 4 Gm Powd.pack 4 Gm PO Gabapentin 600 Mg Tablet 600 Mg PO TID Folic Acid 1 Mg Tablet 1 Tab PO DAILY Clonidine Hcl 0.1 Mg Tablet 0.1 Mg PO BID Metformin Hcl 1,000 Mg Tablet 1,000 Mg PO BIDWMEALS Atorvastatin Calcium 40 Mg Tablet 1 Tab PO DAILY Metoprolol Succinate ( Xl ) (Metoprolol Succinate) 100 Mg Tab.er.24h 100 Mg PO BID Vitals/I & O Vital Sign - Last 24 Hours 01/17/17 01/17/17 01/17/17 01/17/17 14:15 14:35 15:02 15:15 Temp 98.2 98.2 Pulse 62 63 98 Resp 19 B/P (MAP) 136/69 (91) 136/69 (91) 153/66 (95) Pulse Ox 98 98 98 97 O2 Delivery Nasal Cannula Nasal Cannula Nasal Cannula Nasal Cannula O2 Flow Rate 2.0 2.0 3.0 2.0 01/17/17 01/17/17 01/17/17 01/17/17 15:30 16:15 19:00 19:20 Temp 98.5 98.5 Pulse 70 72 Resp 18 B/P (MAP) 120/65 (83) 159/74 (102) Pulse Ox 98 98 97 O2 Delivery Nasal Cannula Nasal Cannula Nasal Cannula O2 Flow Rate 2.0 3.0 2.0 01/17/17 01/17/17 01/17/17 01/17/17 20:06 20:06 20:06 20:17 Pulse 72 72 Resp 22 22 B/P (MAP) 159/74 159/74 O2 Delivery Nasal Cannula Nasal Cannula O2 Flow Rate 2.0 2.0 01/17/17 01/17/17 01/18/17 01/18/17 23:00 23:22 00:22 01:27 Temp 98.0 98.0 Pulse 68 Resp 19 20 20 20 B/P (MAP) 130/64 (86) Pulse Ox 94 97 O2 Delivery Nasal Cannula Nasal Cannula Nasal Cannula O2 Flow Rate 3.0 2.0 2.0 01/18/17 01/18/17 01/18/17 01/18/17 01:57 03:00 05:58 07:00 Temp 98.2 98.3 98.2 98.3 Pulse 64 61 Resp 20 18 20 19 B/P (MAP) 116/52 (73) 145/67 (93) Pulse Ox 99 93 O2 Delivery Nasal Cannula Nasal Cannula Nasal Cannula O2 Flow Rate 3.0 2.0 3.0 01/18/17 01/18/17 01/18/17 01/18/17 08:00 08:03 08:46 10:18 Temp 98.5 98.5 Pulse 70 81 Resp 22 B/P (MAP) 145/67 146/71 (96) Pulse Ox 100 O2 Delivery Nasal Cannula Nasal Cannula Nasal Cannula O2 Flow Rate 2.0 2.0 2.0 01/18/17 01/18/17 10:51 11:20 Pulse Ox 100 100 O2 Delivery Nasal Cannula Nasal Cannula O2 Flow Rate 2.0 2.0 PINEDA FIELDS MD Jan 18, 2017 13:38
--- NOTE | 2017-01-18 14:37 | PDOC ---
PROGRESS NOTES Chief Complaint Chief Complaint Syncope and collapse ASSESSMENT AND PLAN: 1. Syncope: ruled out for ACS; cardiology following, echo essential normal, PAp 34. suspect due to dehydration/vasovagal rxn 2. Back pain: partly trauma, partly new-found mass at L3. treat symptomatically. titrate oxy to comfort with activity 3. L3 spinal mass: highly suspicious for malignancy. no soft tissue lesions seen on non-con CT, but mult other bone lesions, both lytic and sclerotic. bone scan "cold" at L3 as well as at acute rib fx - ?pathologic. VIR bx on nondiagnostic (blood). D/W Dr.s Norris and Darius: needs rpt bx, but on review of CT, area appears unstable. neuro-surg. consult requested. labs for MM pending 4. Renal mass vs complex cyst: renal US with cyst, small 5. ANDREINA on CKD: creat improved to ?baseline; now stable ~1.5. monitor 7. DM2: hold metformin for now. in ISS with good control. 8. 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 iron/ferritin, B12/folate WNL 9. Dyspnea: V/Q scan low probability for PE. does have ALESIA (using CPAP), also suspected hypoventilation syndrome, no COPD dx. 10. PAF: currently in NSR. will need OAC when bx complete 11. CAD: hx mult stents; no acute issues. cont 2ary prevention meds 12. Crohn's: in immunosuppressive meds (Humira q2 weeks) 13. Alcoholism: daily beer and scotch. no apparent W/D sx History of Present Illness History of Present Illness pain with movement, incl for radiographic studies Vitals Vitals Vital Signs Date Time Temp Pulse Resp B/P (MAP) Pulse Ox O2 Delivery O2 Flow Rate FiO2 01/18/17 11:20 100 Nasal Cannula 2.0 01/18/17 10:18 98.5 81 22 146/71 (96) 98.5 Physical Exam General: Alert, Oriented X3 Heart: Normal S1, Normal S2 Abdomen: Normal bowel sounds, Soft, No tenderness Extremities: No clubbing, No edema Skin: No rashes Labs LABS Laboratory Tests Test 01/17/17 16:45 01/17/17 20:43 01/18/17 04:40 01/18/17 08:29 Glucose (Fingerstick) 155 mg/dL (70-99) 165 mg/dL (70-99) 147 mg/dL (70-99) Sodium Level 138 mmol/L (136-145) Potassium Level 4.5 mmol/L (3.5-5.1) Chloride Level 104 mmol/L (98-107) Carbon Dioxide Level 25 mmol/L (21-32) Anion Gap 9 (6-14) Blood Urea Nitrogen 25 mg/dL (8-26) Creatinine 1.5 mg/dL (0.7-1.3) Estimated GFR (Cockcroft-Gault) 46.1 Glucose Level 153 mg/dL (70-99) Calcium Level 7.9 mg/dL (8.5-10.1) Phosphorus Level 2.7 mg/dL (2.6-4.7) Magnesium Level 1.9 mg/dL (1.8-2.4) Albumin 2.8 g/dL (3.4-5.0) Test 01/18/17 11:14 Glucose (Fingerstick) 152 mg/dL (70-99) NELL FERNÁNDEZ MD Jan 18, 2017 14:37
--- NOTE | 2017-01-18 15:10 | RAD ---
Metastatic skeletal survey, 01/18/2017: History: Lytic bone lesion Multiple views of the bony skeleton were obtained and the following findings delineated: 1. An AP view of the chest reveals bony demineralization. No destructive rib lesion is seen. There is deformity of the left fifth rib laterally compatible with an old healed fracture. A coronary artery stent is evident. 2. AP view of the pelvis reveals no destructive bone lesion. 3. AP and lateral views of the spine reveal generalized bony demineralization. There are moderate scattered spurs. There is bony bridging at multiple levels. There is a sclerotic focus involving the right side of the C4 vertebrae as noted on the previous CT study. The lower cervical spine is less clearly visualized due to the high position of the patient's shoulders. The lower thoracic spine was also suboptimally visualized. There is a horizontal fracture of the L3 vertebral body with distraction of the fracture fragments, better demonstrated on the previous CT images. 4. AP views of both femurs and lower legs reveal no destructive bony lesion. 5. AP views of both humeri and forearms show no destructive bony lesion. There are mild degenerative changes at the right elbow. 6. A lateral view of the skull demonstrates patchy bony demineralization. No discrete destructive lesion is delineated. IMPRESSION: 1. Generalized bony demineralization. 2. Multilevel degenerative change in the spine. 3. Sclerotic foci in the cervical spine. These are likely benign in view of the lack of abnormal uptake on the current bone scan. 4. Distracted Chance type fracture of the L3 vertebral body, better demonstrated on previous CT images.
[2017-01-18] MEDS: ATORVASTATIN CALCIUM 40 MG TABLET. PO SCH (20:16)
[2017-01-19] VITALS (9 sets, daily range): BP systolic 118–176; BP diastolic 57–82
[2017-01-19] MEDS: oxyCODONE/APAP 10/325 1 TAB TABLET PO PRN ×3 (03:56→15:57)
[2017-01-19 05:44] LABS: BASO % 0 % (0-3); EOS % 0 % (0-3); LYMPH # 0.2 x10^3/uL (1.0-4.8); MEAN CORPUSCULAR HEMOGLOBIN 33 pg (25-35); MEAN CORPUSCULAR HGB CONC 33 g/dL (31-37); MEAN CORPUSCULAR VOLUME 100 fL (79-100); PLATELET COUNT 111 x10^3/uL (140-400); RED BLOOD COUNT 2.07 x10^6/uL (4.30-5.70); RED CELL DISTRIBUTION WIDTH 15.6 % (11.5-14.5); WHITE BLOOD COUNT 6.5 x10^3/uL (4.0-11.0)
[2017-01-19 05:48] LABS: HEMATOCRIT 20.8 % (39.0-53.0); HEMOGLOBIN 6.9 g/dL (13.0-17.5)
[2017-01-19 06:00] LABS: ALBUMIN 2.8 g/dL (3.4-5.0); CALCIUM 7.7 mg/dL (8.5-10.1); CREATININE 1.5 mg/dL (0.7-1.3); GFR 46.1; PHOSPHORUS 2.9 mg/dL (2.6-4.7); POTASSIUM 4.3 mmol/L (3.5-5.1)
[2017-01-19] MEDS: HEPARIN PF for SUB-Q USE 5,000 UNIT/0.5 ML VIAL. SQ SCH ×3 (06:21→21:06)
[2017-01-19] MEDS: INSULIN ASPART 300 UNITS/3 ML INSULN.PEN SQ SCH ×3 (08:00→17:00)
[2017-01-19] MEDS: ASPIRIN 325 MG TABLET PO SCH (08:35)
[2017-01-19] MEDS: cloNIDine HCL 0.1 MG TABLET PO SCH (08:35)
[2017-01-19] MEDS: PANTOPRAZOLE 40 MG TABLET.DR. PO SCH (08:35)
[2017-01-19] MEDS: LACTOBACILLUS RHAMNOSUS GG 1 CAPSULE. PO SCH ×2 (08:36→20:59)
[2017-01-19] MEDS: CHOLECALCIFEROL (VITAMIN D3) 1,000 UNIT TABLET PO SCH (08:36)
[2017-01-19] MEDS: GABAPENTIN 300 MG CAPSULE. PO SCH ×3 (08:36→20:58)
[2017-01-19] MEDS: METOPROLOL SUCC 24HR ER 50 MG TAB.ER.24H. PO SCH ×2 (08:36→21:00)
[2017-01-19] MEDS: FOLIC ACID 1 MG TABLET. PO SCH (08:36)
[2017-01-19] MEDS: DEXAMETHASONE SOD PHOS 4 MG/ML VIAL IV SCH ×2 (08:43→20:59)
--- NOTE | 2017-01-19 08:48 | PDOC ---
PROGRESS NOTES Subjective Subjective HPI -Osteolytic bone lesions. This is clinically concerning for metastatic focus. He also has multiple other lesions in the spine ROS - has back pain Objective Objective Vital Signs Date Time Temp Pulse Resp B/P (MAP) Pulse Ox O2 Delivery O2 Flow Rate FiO2 01/19/17 08:00 Nasal Cannula 2.0 01/19/17 07:38 98.6 70 20 176/82 (113) 97 98.6 Physical Exam Heart: Normal S1, Normal S2 General: Alert, Oriented X3, No acute distress Lungs: Clear to auscultation Neuro: Normal speech Psych/Mental Status: Mental status NL Assessment Assessment Problems Medical Problems: (1) Elevated d-dimer Status: Acute (2) Elevated serum creatinine Status: Acute (3) Hypoxia Status: Acute (4) Lactic acidosis Status: Acute (5) 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 Osteolytic bone lesions. This is clinically concerning for metastatic focus. He also has multiple other lesions in the spine. I discussed in detail with the patient and family. Since the CT chest, abdomen and pelvis did not reveal a clear primary focus I would pursue with a biopsy of the L3 vertebral lesion - done 01/17/17, non-diagnostic. I d/w IR, he feels that this may just be an acute fracture. MRI and neurosurg consult recommended. PSA normal. The patient has already been started on Decadron 4 mg q. 6 hours. Appreciate consult Radiation Oncology. Bone scan does not reveal uptake and hence multiple myeloma is suspected. Plan skeletal survey and BM bx. 2. Left renal lesion, u/s ultrasound of the kidney does not reveal malignancy. 3. Bone lesions. 4. Anemia. This is likely secondary to malignancy. I will continue to monitor. Comment Review of Relevant I have reviewed the following items bernadine (where applicable) has been applied. Labs Laboratory Tests Test 01/17/17 11:41 01/17/17 16:45 01/17/17 20:43 01/18/17 04:40 Glucose (Fingerstick) 164 mg/dL (70-99) 155 mg/dL (70-99) 165 mg/dL (70-99) Sodium Level 138 mmol/L (136-145) Potassium Level 4.5 mmol/L (3.5-5.1) Chloride Level 104 mmol/L (98-107) Carbon Dioxide Level 25 mmol/L (21-32) Anion Gap 9 (6-14) Blood Urea Nitrogen 25 mg/dL (8-26) Creatinine 1.5 mg/dL (0.7-1.3) Estimated GFR (Cockcroft-Gault) 46.1 Glucose Level 153 mg/dL (70-99) Calcium Level 7.9 mg/dL (8.5-10.1) Phosphorus Level 2.7 mg/dL (2.6-4.7) Magnesium Level 1.9 mg/dL (1.8-2.4) Albumin 2.8 g/dL (3.4-5.0) Test 01/18/17 08:29 01/18/17 11:14 01/18/17 16:27 01/18/17 21:13 Glucose (Fingerstick) 147 mg/dL (70-99) 152 mg/dL (70-99) 135 mg/dL (70-99) 130 mg/dL (70-99) Test 01/19/17 05:13 White Blood Count 6.5 x10^3/uL (4.0-11.0) Red Blood Count 2.07 x10^6/uL (4.30-5.70) Hemoglobin 6.9 g/dL (13.0-17.5) Hematocrit 20.8 % (39.0-53.0) Mean Corpuscular Volume 100 fL (79-100) Mean Corpuscular Hemoglobin 33 pg (25-35) Mean Corpuscular Hemoglobin Concent 33 g/dL (31-37) Red Cell Distribution Width 15.6 % (11.5-14.5) Platelet Count 111 x10^3/uL (140-400) Neutrophils (%) (Auto) 27 % (31-73) Lymphocytes (%) (Auto) 2 % (24-48) Monocytes (%) (Auto) 71 % (0-9) Eosinophils (%) (Auto) 0 % (0-3) Basophils (%) (Auto) 0 % (0-3) Neutrophils # (Auto) 1.8 x10^3uL (1.8-7.7) Lymphocytes # (Auto) 0.2 x10^3/uL (1.0-4.8) Monocytes # (Auto) 4.6 x10^3/uL (0.0-1.1) Eosinophils # (Auto) 0.0 x10^3/uL (0.0-0.7) Basophils # (Auto) 0.0 x10^3/uL (0.0-0.2) Sodium Level 139 mmol/L (136-145) Potassium Level 4.3 mmol/L (3.5-5.1) Chloride Level 106 mmol/L (98-107) Carbon Dioxide Level 26 mmol/L (21-32) Anion Gap 7 (6-14) Blood Urea Nitrogen 29 mg/dL (8-26) Creatinine 1.5 mg/dL (0.7-1.3) Estimated GFR (Cockcroft-Gault) 46.1 Glucose Level 137 mg/dL (70-99) Calcium Level 7.7 mg/dL (8.5-10.1) Phosphorus Level 2.9 mg/dL (2.6-4.7) Magnesium Level 2.1 mg/dL (1.8-2.4) Albumin 2.8 g/dL (3.4-5.0) Laboratory Tests Test 01/18/17 11:14 01/18/17 16:27 01/18/17 21:13 01/19/17 05:13 Glucose (Fingerstick) 152 mg/dL (70-99) 135 mg/dL (70-99) 130 mg/dL (70-99) White Blood Count 6.5 x10^3/uL (4.0-11.0) Red Blood Count 2.07 x10^6/uL (4.30-5.70) Hemoglobin 6.9 g/dL (13.0-17.5) Hematocrit 20.8 % (39.0-53.0) Mean Corpuscular Volume 100 fL (79-100) Mean Corpuscular Hemoglobin 33 pg (25-35) Mean Corpuscular Hemoglobin Concent 33 g/dL (31-37) Red Cell Distribution Width 15.6 % (11.5-14.5) Platelet Count 111 x10^3/uL (140-400) Neutrophils (%) (Auto) 27 % (31-73) Lymphocytes (%) (Auto) 2 % (24-48) Monocytes (%) (Auto) 71 % (0-9) Eosinophils (%) (Auto) 0 % (0-3) Basophils (%) (Auto) 0 % (0-3) Neutrophils # (Auto) 1.8 x10^3uL (1.8-7.7) Lymphocytes # (Auto) 0.2 x10^3/uL (1.0-4.8) Monocytes # (Auto) 4.6 x10^3/uL (0.0-1.1) Eosinophils # (Auto) 0.0 x10^3/uL (0.0-0.7) Basophils # (Auto) 0.0 x10^3/uL (0.0-0.2) Sodium Level 139 mmol/L (136-145) Potassium Level 4.3 mmol/L (3.5-5.1) Chloride Level 106 mmol/L (98-107) Carbon Dioxide Level 26 mmol/L (21-32) Anion Gap 7 (6-14) Blood Urea Nitrogen 29 mg/dL (8-26) Creatinine 1.5 mg/dL (0.7-1.3) Estimated GFR (Cockcroft-Gault) 46.1 Glucose Level 137 mg/dL (70-99) Calcium Level 7.7 mg/dL (8.5-10.1) Phosphorus Level 2.9 mg/dL (2.6-4.7) Magnesium Level 2.1 mg/dL (1.8-2.4) Albumin 2.8 g/dL (3.4-5.0) Microbiology 01/15/17 Blood Culture - Preliminary, Resulted NO GROWTH AFTER 3 DAYS Medications Current Medications Fentanyl Citrate (Fentanyl 2ml Vial) 50 mcg 1X ONCE IV Last administered on 21:52; Start 01/15/17 at 22:00; Stop 01/15/17 at 22:01; Status DC Sodium Chloride 1,000 ml @ 150 mls/hr 1X ONCE IV Last administered on 22:31; Start 01/15/17 at 22:00; Stop 01/16/17 at 04:39; Status DC Piperacillin Sod/ Tazobactam Sod 3.375 gm/Dextrose 50 ml @ 100 mls/hr 1X ONCE IV Last administered on 01/15/17 23:22; Start 01/15/17 at 23:30; Stop 01/15 at 23:59; Status DC Heparin Sodium (Porcine) (Heparin Sodium) 9,450 unit 1X ONCE IV Last administered on 01/15/17 23:30; Start 01/15/17 at 23:30; Stop 01/16/17 at 16 :41; Status DC Heparin Sodium/ Dextrose 500 ml @ 0 mls/hr CONT PRN IV SEE I/O RECORD Last administered on 01/16/17 16:26; Start 01/15/17 at 23:15; Stop 01/16/17 at 16 :41; Status DC Heparin Sodium (Porcine) (Heparin Sodium) 3,550 unit PRN Q6HRS PRN IV FOR UFH LEVEL LESS THAN 0.2; Start 01/15/17 at 23:15; Stop 01/16/17 at 16:41; Status DC Heparin Sodium (Porcine) (Heparin Sodium) 1,750 unit PRN Q6HRS PRN IV FOR UFH LEVEL 0.2 - 0.29; Start 01/15/17 at 23:15; Stop 01/16/17 at 16:41; Status DC Warfarin Sodium (Coumadin Per Pharmacy) 1 each PRN DAILY PRN MC PER PROTOCOL Last administered on 01/16/17 10:20; Start 01/15/17 at 23:15; Stop 01/16/17 at 16:39; Status DC Info (Anti-Coagulation Monitoring By Pharmacy) 1 each PRN DAILY PRN MC SEE COMMENTS Last administered on 01/16/17 10:17; Start 01/15/17 at 23:30; Stop 01/18/17 at 14:31; Status DC Ondansetron HCl (Zofran) 4 mg PRN Q8HRS PRN IV NAUSEA/VOMITING; Start at 23:15; Stop 01/16/17 at 23:14; Status DC Fentanyl Citrate (Fentanyl 2ml Vial) 50 mcg PRN Q2HR PRN IV SEVERE PAIN Last administered on 01/16/17 01:33; Start 01/15/17 at 23:15; Stop 01/16/17 at 02 :47; Status DC Piperacillin Sod/ Tazobactam Sod (Zosyn Per Pharmacy) 1 each PRN DAILY PRN MC SEE COMMENTS; Start 01/15/17 at 23:15; Stop 01/16/17 at 02:54; Status DC Sodium Chloride 1,000 ml @ 150 mls/hr 1X ONCE IV Last administered on 01:34; Start 01/15/17 at 23:45; Stop 01/16/17 at 06:24; Status DC Albuterol Sulfate (Ventolin Neb Soln) 2.5 mg PRN Q3HRS PRN NEB WHEEZING Last administered on 01/16/17 11:24; Start 01/15/17 at 23:30 Morphine Sulfate 2 mg 1X ONCE IV Last administered on 01/15/17 23:47; Start 01/16/17 at 00:00; Stop 01/16/17 at 00:01; Status DC Fentanyl Citrate (Fentanyl 2ml Vial) 75 mcg PRN Q2HR PRN IV SEVERE PAIN Last administered on 01/16/17 13:56; Start 01/16/17 at 02:45; Stop 01/16/17 at 16 :41; Status DC Piperacillin Sod/ Tazobactam Sod (Zosyn Per Pharmacy) 1 each PRN DAILY PRN MC SEE COMMENTS; Start 01/16/17 at 02:45; Stop 01/17/17 at 16:01; Status DC Piperacillin Sod/ Tazobactam Sod (Zosyn) 2.25 gm Q6HRS IVP Last administered on 01/17/17 12:01; Start 01/16/17 at 06:00; Stop 01/17/17 at 16:01; Status DC Info (Anti-Coagulation Monitoring By Pharmacy) 1 each PRN DAILY PRN MC SEE COMMENTS; Start 01/16/17 at 09:45; Status Cancel Warfarin Sodium (Coumadin) 5 mg 1X WARF ONCE PO ; Start 01/16/17 at 16:00; Stop 01/16/17 at 16:39; Status DC Lactobacillus Rhamnosus (Culturelle) 1 cap BID PO Last administered on 20:16; Start 01/16/17 at 21:00 Magnesium Sulfate/ Dextrose 50 ml @ 25 mls/hr 1X ONCE IV Last administered on 01/16/17 12:45; Start 01/16/17 at 11:30; Stop 01/16/17 at 13:29; Status DC Linezolid 300 ml @ 300 mls/hr Q12HR IV Last administered on 01/16/17 20:58; Start 01/16/17 at 12:00; Stop 01/17/17 at 08:14; Status DC Iohexol (Omnipaque 240 Mg/ml) 30 ml 1X ONCE PO ; Start 01/16/17 at 12:00; Stop 01/16/17 at 12:01; Status DC Info (Do NOT chart on this entry -- for MONITORING) 1 each PRN DAILY PRN MC SEE COMMENTS; Start 01/16/17 at 12:00; Stop 01/18/17 at 11:59; Status DC Magnesium Sulfate/ Dextrose 50 ml @ 25 mls/hr PRN DAILY PRN IV for Mag < 1.7 on am labs; Start 01/16/17 at 13:15 Metoprolol Succinate (Toprol Xl) 50 mg BID PO Last administered on 01/18/17 20 :17; Start 01/16/17 at 21:00 Sodium Chloride 1,000 ml @ 100 mls/hr Q10H IV Last administered on 01/18/17 05:45; Start 01/16/17 at 13:45; Stop 01/18/17 at 11:44; Status DC Aspirin (Charmaine Aspirin) 325 mg DAILYWBKFT PO Last administered on 01/18/17 08: 46; Start 01/17/17 at 08:00 Atorvastatin Calcium (Lipitor) 40 mg QHS PO Last administered on 01/18/17 20: 16; Start 01/16/17 at 21:00 Vitamin D (Vitamin D3) 2,000 unit DAILY PO Last administered on 01/18/17 08:45 ; Start 01/17/17 at 09:00 Clonidine HCl (Catapres) 0.1 mg BID PO Last administered on 01/18/17 20:16; Start 01/16/17 at 21:00 Folic Acid (Folic Acid) 1 mg DAILY PO Last administered on 01/18/17 08:44; Start 01/17/17 at 09:00 Loperamide HCl (Imodium) 2 mg Q2H PRN PO diarrhea; Start 01/16/17 at 16:45 Metoprolol Succinate (Toprol Xl) 100 mg BID PO ; Start 01/16/17 at 21:00; Status UNV Gabapentin (Neurontin) 600 mg TID PO Last administered on 01/18/17 20:17; Start 01/16/17 at 21:00 Pantoprazole Sodium (Protonix) 40 mg DAILYAC PO Last administered on 01/18/17 08:46; Start 01/17/17 at 07:30 Insulin Aspart (NovoLOG) 0-9 UNITS TIDWMEALS SQ Last administered on 01/17/17 17:37; Start 01/16/17 at 17:00 Dextrose (Dextrose 50%-Water Syringe) 12.5 gm PRN Q15MIN PRN IV SEE COMMENTS; Start 01/16/17 at 16:45 Dexamethasone Sodium Phosphate (Decadron) 10 mg 1X ONCE IV Last administered on 01/16/17 17:05; Start 01/16/17 at 16:45; Stop 01/16/17 at 16:46; Status DC Dexamethasone Sodium Phosphate (Decadron) 4 mg Q6HRS IV Last administered on 05:58; Start 01/17/17 at 00:00; Stop 01/18/17 at 15:31; Status DC Morphine Sulfate 2 mg PRN Q2HR PRN IV PAIN Last administered on 01/18/17 19:30 ; Start 01/16/17 at 16:45 Oxycodone/ Acetaminophen (Percocet 10/325) 1 tab PRN Q4HRS PRN PO pain Last administered on 01/19/17 03:56; Start 01/16/17 at 16:45 Heparin Sodium (Porcine) (Heparin Sq) 5,000 unit Q8HRS SQ Last administered on 01/19/17 06:21; Start 01/16/17 at 22:00 Diazepam (Valium) 5 mg PRN Q6HRS PRN IV SEIZURES; Start 01/16/17 at 18:30; Status Cancel Diazepam (Valium) 5 mg PRN Q6HRS PRN PO TREMORS Last administered on 01/17/17 20:05; Start 01/16/17 at 18:45 Fentanyl Citrate (Fentanyl 2ml Vial) 100 mcg STK-MED ONCE .ROUTE ; Start at 10:08; Stop 01/17/17 at 10:09; Status DC Midazolam HCl (Versed) 2 mg STK-MED ONCE .ROUTE ; Start 01/17/17 at 10:08; Stop 01/17/17 at 10:09; Status DC Lidocaine/Sodium Bicarbonate (Buffered Lidocaine 1%) 20 ml 1X ONCE IJ Last administered on 01/17/17 10:51; Start 01/17/17 at 10:15; Stop 01/17/17 at 10:16 ; Status DC Midazolam HCl (Versed) 2 mg 1X ONCE IV Last administered on 01/17/17 10:52; Start 01/17/17 at 10:15; Stop 01/17/17 at 10:16; Status DC Fentanyl Citrate (Fentanyl 2ml Vial) 100 mcg 1X ONCE IV Last administered on 01/17/17 10:52; Start 01/17/17 at 10:15; Stop 01/17/17 at 10:16; Status DC Lidocaine/Sodium Bicarbonate (Buffered Lidocaine 1%) 20 ml STK-MED ONCE IJ ; Start 01/17/17 at 10:14; Stop 01/17/17 at 10:15; Status DC Piperacillin Sod/ Tazobactam Sod (Zosyn) 3.375 gm Q6HRS IVP Last administered on 01/18/17 06:00; Start 01/17/17 at 18:00; Stop 01/18/17 at 10:42; Status DC Dexamethasone Sodium Phosphate (Decadron) 4 mg Q12HR IV Last administered on 20:17; Start 01/18/17 at 21:00 Active Scripts Active Reported Imodium A-D (Loperamide HCl) 2 Mg Capsule 2 Mg PO Aspirin 325 Mg Tablet 1 Tab PO DAILY Vitamin D3 (Cholecalciferol (Vitamin D3)) 1,000 Unit Tablet 2,000 Unit PO Vicodin Es 7.5-300 Mg Tablet (Hydrocodone Bit/Acetaminophen) 1 Each Tablet 1 Each PO Q6H PRN Humira (Adalimumab) 40 Mg/0.8 Ml Pen.ij.kit 1 Syr SQ Q2WKS Folbic Rf Tablet (B12/Levomefolate Calcium/B-6) 1 Each Tablet 1 Each PO Omeprazole 40 Mg Capsule.dr 1 Cap PO DAILY Cholestyramine Packet (Cholestyramine (With Sugar)) 4 Gm Powd.pack 4 Gm PO Gabapentin 600 Mg Tablet 600 Mg PO TID Folic Acid 1 Mg Tablet 1 Tab PO DAILY Clonidine Hcl 0.1 Mg Tablet 0.1 Mg PO BID Metformin Hcl 1,000 Mg Tablet 1,000 Mg PO BIDWMEALS Atorvastatin Calcium 40 Mg Tablet 1 Tab PO DAILY Metoprolol Succinate ( Xl ) (Metoprolol Succinate) 100 Mg Tab.er.24h 100 Mg PO BID Vitals/I & O Vital Sign - Last 24 Hours 01/18/17 01/18/17 01/18/17 01/18/17 08:46 10:18 10:51 11:20 Temp 98.5 98.5 Pulse 70 81 Resp 22 B/P (MAP) 145/67 146/71 (96) Pulse Ox 100 100 100 O2 Delivery Nasal Cannula Nasal Cannula O2 Flow Rate 2.0 2.0 2.0 01/18/17 01/18/17 01/18/17 01/18/17 14:58 15:45 19:17 19:30 Temp 97.9 98.0 97.9 98.0 Pulse 69 68 78 Resp 23 22 22 B/P (MAP) 190/84 (119) 166/80 (108) 157/74 (101) Pulse Ox 100 99 100 O2 Delivery Nasal Cannula Nasal Cannula Nasal Cannula Nasal Cannula O2 Flow Rate 2.0 2.0 2.0 01/18/17 01/18/17 01/18/17 01/18/17 19:45 20:15 20:16 20:16 Pulse 78 B/P (MAP) 157/74 O2 Delivery Nasal Cannula Nasal Cannula Room Air O2 Flow Rate 2.0 01/18/17 01/18/17 01/19/17 01/19/17 20:17 23:00 03:02 03:56 Temp 98.1 98.1 Pulse 78 63 66 Resp 18 18 B/P (MAP) 157/74 161/73 (102) 165/77 (106) Pulse Ox 100 97 O2 Delivery Nasal Cannula Nasal Cannula Nasal Cannula O2 Flow Rate 2.0 2.0 01/19/17 01/19/17 07:38 08:00 Temp 98.6 98.6 Pulse 70 Resp 20 B/P (MAP) 176/82 (113) Pulse Ox 97 O2 Delivery Nasal Cannula Nasal Cannula O2 Flow Rate 2.0 2.0 PINEDA FIELDS MD Jan 19, 2017 08:48
--- NOTE | 2017-01-19 09:52 | PDOC ---
CARDIO Progress Notes Date and Time Date of Service 01/19/2017 Time of Evaluation 0920 Subjective Subjective: No Chest Pain, No shortness of breath, No Palpitations Vitals Vitals Vital Signs Date Time Temp Pulse Resp B/P (MAP) Pulse Ox O2 Delivery O2 Flow Rate FiO2 01/19/17 08:43 Nasal Cannula 2.0 01/19/17 08:36 70 176/82 01/19/17 07:38 98.6 20 97 98.6 Weight Weight [ ] Laboratory Labs Laboratory Tests Test 01/18/17 11:14 01/18/17 16:27 01/18/17 21:13 01/19/17 05:13 Glucose (Fingerstick) 152 mg/dL (70-99) 135 mg/dL (70-99) 130 mg/dL (70-99) White Blood Count 6.5 x10^3/uL (4.0-11.0) Red Blood Count 2.07 x10^6/uL (4.30-5.70) Hemoglobin 6.9 g/dL (13.0-17.5) Hematocrit 20.8 % (39.0-53.0) Mean Corpuscular Volume 100 fL (79-100) Mean Corpuscular Hemoglobin 33 pg (25-35) Mean Corpuscular Hemoglobin Concent 33 g/dL (31-37) Red Cell Distribution Width 15.6 % (11.5-14.5) Platelet Count 111 x10^3/uL (140-400) Neutrophils (%) (Auto) 27 % (31-73) Lymphocytes (%) (Auto) 2 % (24-48) Monocytes (%) (Auto) 71 % (0-9) Eosinophils (%) (Auto) 0 % (0-3) Basophils (%) (Auto) 0 % (0-3) Neutrophils # (Auto) 1.8 x10^3uL (1.8-7.7) Lymphocytes # (Auto) 0.2 x10^3/uL (1.0-4.8) Monocytes # (Auto) 4.6 x10^3/uL (0.0-1.1) Eosinophils # (Auto) 0.0 x10^3/uL (0.0-0.7) Basophils # (Auto) 0.0 x10^3/uL (0.0-0.2) Sodium Level 139 mmol/L (136-145) Potassium Level 4.3 mmol/L (3.5-5.1) Chloride Level 106 mmol/L (98-107) Carbon Dioxide Level 26 mmol/L (21-32) Anion Gap 7 (6-14) Blood Urea Nitrogen 29 mg/dL (8-26) Creatinine 1.5 mg/dL (0.7-1.3) Estimated GFR (Cockcroft-Gault) 46.1 Glucose Level 137 mg/dL (70-99) Calcium Level 7.7 mg/dL (8.5-10.1) Phosphorus Level 2.9 mg/dL (2.6-4.7) Magnesium Level 2.1 mg/dL (1.8-2.4) Albumin 2.8 g/dL (3.4-5.0) Test 01/19/17 07:42 Glucose (Fingerstick) 132 mg/dL (70-99) Microbiology Micro Microbiology 01/15/17 Blood Culture - Preliminary, Resulted NO GROWTH AFTER 3 DAYS Physical Exam HEENT: Neck Supple W Full Motion Chest: Symmetric LUNGS: Other (diminished) Heart: S1S2, irregularly irregular (AFIB rate controlled) Abdomen: Soft N/T (truncal obesity) Extremities: No Calf Tenderness, Other (trace LE edema) Neurology: alert, oriented, follow commands Assessment Assessment 1. Syncope with traumatic fall: multifactorial including hypoxia with recent pneumonia with possible aspiration, ETOH dehydration and possible hypoglycemia. NO VTE 2. PAFIB: rate controlled with episodes of bradycardia in the 40s mainly vagal when asleep. 3. Chronic diastolic CHF: compensated 4. Lactic acidosis: with noted ANDREINA, metformin, ETOH use. Now resolved 5. Alcoholism: 2 shots of scotch daily 6. Chronic immunosuppression: on Humira for Chron's 7. Anemia: Hgb 6.9 8. CAD: total x7 stents with last PCI 2002. Last MPI 2 yrs ago. 9. Possible Metastatic CA: suspicious with spine imaging with multiple vertebral compression fractures. Hemonc and neurosurgery following 10. ALESIA: CPAP compliant with possible COPD from second hand smoking 11. HTN: periods of lability 12. HLP 13. DM2 Recommendations 1. Await hemonc workup 2. Continue on ASA for stroke prevention. Not a candidate at this time for NOAC due to significant drop in Hgb. When its clear with others and no other invasvie procedure then would recommend Eliquis 3. Continue with secondary prevention, supportive care. Continue toprol. DC clonidine and start on norvasc. 4. Blood transfusion pending per PCP ADRIANNA RICE [employer] Jan 19, 2017 09:52
[2017-01-19] MEDS: amLODIPine BESYLATE 10 MG TABLET PO SCH (10:00)
[2017-01-19] MEDS: oxyCODONE ER 15 MG TAB.ER.12H PO SCH ×2 (11:45→21:00)
[2017-01-19] MEDS: SENNOSIDES/DOCUSATE 8.6/50MG TABLET. PO SCH (12:00)
--- NOTE | 2017-01-19 12:03 | PDOC ---
PROGRESS NOTES Chief Complaint Chief Complaint Syncope and collapse ASSESSMENT AND PLAN: 1. L3 spinal mass: highly suspicious for malignancy. no soft tissue lesions seen on non-con CT, but mult other bone lesions, both lytic and sclerotic. bone scan "cold" at L3 as well as at acute rib fx - ?pathologic. VIR bx on nondiagnostic (blood). D/W Dr.s Norris and Darius: needs rpt bx, but on review of CT, area appears unstable. neuro-surg. consult requested. labs for MM pending 2. Back pain: partly trauma, partly new-found mass at L3. treat symptomatically. on IV decadron bid. start oxyER in addition to oxy IR. 3. Syncope: ruled out for ACS; cardiology following, echo essential normal, PAp 34. suspect due to dehydration/vasovagal rxn 4. Renal mass vs complex cyst: renal US with cyst, small 5. ANDREINA on CKD: creat improved to ?baseline; now stable ~1.5. monitor 7. DM2: hold metformin for now. in ISS with good control. 8. 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 iron/ferritin, B12/folate WNL. transfuse for Hgb <7 9. Dyspnea: V/Q scan low probability for PE. does have ALESIA (using CPAP, will bring his machine), also suspected hypoventilation syndrome, no COPD dx. 10. PAF: currently in NSR. will need OAC when bx complete 11. CAD: hx mult stents; no acute issues. cont 2ary prevention meds 12. Crohn's: in immunosuppressive meds (Humira q2 weeks) 13. Alcoholism: daily beer and scotch. no apparent W/D sx History of Present Illness History of Present Illness pain with movement, incl for radiographic studies Vitals Vitals Vital Signs Date Time Temp Pulse Resp B/P (MAP) Pulse Ox O2 Delivery O2 Flow Rate FiO2 01/19/17 11:17 97.4 62 21 146/60 (88) 96 Nasal Cannula 2.0 97.4 Physical Exam General: Alert, Oriented X3, No acute distress Heart: Normal S1, Normal S2 Abdomen: Normal bowel sounds, Soft, No tenderness Extremities: No clubbing, No edema Skin: No rashes Labs LABS Laboratory Tests Test 01/18/17 16:27 01/18/17 21:13 01/19/17 05:13 01/19/17 07:42 Glucose (Fingerstick) 135 mg/dL (70-99) 130 mg/dL (70-99) 132 mg/dL (70-99) White Blood Count 6.5 x10^3/uL (4.0-11.0) Red Blood Count 2.07 x10^6/uL (4.30-5.70) Hemoglobin 6.9 g/dL (13.0-17.5) Hematocrit 20.8 % (39.0-53.0) Mean Corpuscular Volume 100 fL (79-100) Mean Corpuscular Hemoglobin 33 pg (25-35) Mean Corpuscular Hemoglobin Concent 33 g/dL (31-37) Red Cell Distribution Width 15.6 % (11.5-14.5) Platelet Count 111 x10^3/uL (140-400) Neutrophils (%) (Auto) 27 % (31-73) Lymphocytes (%) (Auto) 2 % (24-48) Monocytes (%) (Auto) 71 % (0-9) Eosinophils (%) (Auto) 0 % (0-3) Basophils (%) (Auto) 0 % (0-3) Neutrophils # (Auto) 1.8 x10^3uL (1.8-7.7) Lymphocytes # (Auto) 0.2 x10^3/uL (1.0-4.8) Monocytes # (Auto) 4.6 x10^3/uL (0.0-1.1) Eosinophils # (Auto) 0.0 x10^3/uL (0.0-0.7) Basophils # (Auto) 0.0 x10^3/uL (0.0-0.2) Sodium Level 139 mmol/L (136-145) Potassium Level 4.3 mmol/L (3.5-5.1) Chloride Level 106 mmol/L (98-107) Carbon Dioxide Level 26 mmol/L (21-32) Anion Gap 7 (6-14) Blood Urea Nitrogen 29 mg/dL (8-26) Creatinine 1.5 mg/dL (0.7-1.3) Estimated GFR (Cockcroft-Gault) 46.1 Glucose Level 137 mg/dL (70-99) Calcium Level 7.7 mg/dL (8.5-10.1) Phosphorus Level 2.9 mg/dL (2.6-4.7) Magnesium Level 2.1 mg/dL (1.8-2.4) Albumin 2.8 g/dL (3.4-5.0) NELL FERNÁNDEZ MD Jan 19, 2017 12:03
[2017-01-19 12:49] LABS: LYMPH % 8 % (24-48); MONO % 8 % (0-9); NEUT % 84 % (31-73)
--- NOTE | 2017-01-19 12:52 | PDOC ---
SUBJECTIVE ROS CKD III DOing OK overall OBJECTIVE Vital Signs Vital Signs Date Time Temp Pulse Resp B/P (MAP) Pulse Ox O2 Delivery O2 Flow Rate FiO2 01/19/17 11: 97.4 62 21 146/60 (88) 96 Nasal Cannula 2.0 97.4 PHYSICAL EXAM Physical Exam General Appearance: Obese Awake: Alert Oriented x 2-3 Neck: No JVD or JVP Chest: CTA Elia Heart: S1 S2 Abdomen - Soft NTND Extremities - No Edema DIAGNOSIS/ASSESSMENT Assessment & Plan CKD III - given Cortical Thinning as noted on US - This may be his baseline - watch trend off of IVF COMMENT/RELEVANT DATA Meds Current Medications Medications (Trade) Dose Ordered Sig/Jose Start Time Stop Time Status Last Admin Dose Admin Albuterol Sulfate (Ventolin Neb Soln) 2.5 mg PRN Q3HRS PRN 01/15/17 23:30 01/16/17 11:24 2.5 MG Amlodipine Besylate (Norvasc) 10 mg DAILY 01/19/17 10:00 Aspirin (Charmaine Aspirin) 325 mg DAILYWBKFT 01/17/17 08:00 01/19/17 09:49 DC 01/19/17 08:35 325 MG Aspirin (Ecotrin) 81 mg DAILYWBKFT 01/20/17 08:00 Atorvastatin Calcium (Lipitor) 40 mg QHS 01/16/17 21:00 01/18/17 20:16 40 MG Clonidine HCl (Catapres) 0.1 mg BID 01/16/17 21:00 01/19/17 09:52 DC 01/19/17 08:35 0.1 MG Dexamethasone Sodium Phosphate (Decadron) 4 mg Q12HR 01/18/17 21:00 01/19/17 08:43 4 MG Dextrose (Dextrose 50%-Water Syringe) 12.5 gm PRN Q15MIN PRN 01/16/17 16:45 Diazepam (Valium) 5 mg PRN Q6HRS PRN 01/16/17 18:45 01/17/17 20:05 5 MG Fentanyl Citrate (Fentanyl 2ml Vial) 100 mcg 1X ONCE 01/17/17 10:15 01/17/17 10:16 DC 01/17/17 10:52 100 MCG Folic Acid (Folic Acid) 1 mg DAILY 01/17/17 09:00 01/19/17 08:36 1 MG Gabapentin (Neurontin) 600 mg TID 01/16/17 21:00 01/19/17 08:36 600 MG Heparin Sodium (Porcine) (Heparin Sodium) 1,750 unit PRN Q6HRS PRN 01/15/17 23:15 01/16/17 16:41 DC Heparin Sodium (Porcine) (Heparin Sq) 5,000 unit Q8HRS 01/16/17 22:00 01/19/17 06:21 5,000 UNIT Heparin Sodium/ Dextrose 500 ml @ 0 mls/hr CONT PRN 01/15/17 23:15 01/16/17 16:41 DC 01/16/17 16:26 30.4 MLS/HR Info (Anti-Coagulation Monitoring By Pharmacy) 1 each PRN DAILY PRN 01/16/17 09:45 Cancel Info (Do NOT chart on this entry -- for MONITORING) 1 each PRN DAILY PRN 01/16/17 12:00 01/18/17 11:59 DC Insulin Aspart (NovoLOG) 0-9 UNITS TIDWMEALS 01/16/17 17:00 01/17/17 17:37 4 UNITS Iohexol (Omnipaque 240 Mg/ml) 30 ml 1X ONCE 01/16/17 12:00 01/16/17 12:01 DC Lactobacillus Rhamnosus (Culturelle) 1 cap BID 01/16/17 21:00 01/19/17 08:36 1 CAP Lidocaine/Sodium Bicarbonate (Buffered Lidocaine 1%) 20 ml STK-MED ONCE 01/17/17 10:14 01/17/17 10:15 DC Linezolid 300 ml @ 300 mls/hr Q12HR 01/16/17 12:00 01/17/17 08:14 DC 01/16/17 20:58 300 MLS/HR Loperamide HCl (Imodium) 2 mg Q2H PRN 01/16/17 16:45 Magnesium Sulfate/ Dextrose 50 ml @ 25 mls/hr PRN DAILY PRN 01/16/17 13:15 Metoprolol Succinate (Toprol Xl) 100 mg BID 01/16/17 21:00 UNV Midazolam HCl (Versed) 2 mg 1X ONCE 01/17/17 10:15 01/17/17 10:16 DC 01/17/17 10:52 1 MG Morphine Sulfate 2 mg PRN Q2HR PRN 01/16/17 16:45 01/18/17 19:30 2 MG Ondansetron HCl (Zofran) 4 mg PRN Q8HRS PRN 01/15/17 23:15 01/16/17 23:14 DC Oxycodone HCl (OxyCONTIN) 30 mg Q12HR 01/19/17 11:45 Oxycodone/ Acetaminophen (Percocet 10/325) 1 tab PRN Q4HRS PRN 01/16/17 16:45 01/19/17 08:43 1 TAB Pantoprazole Sodium (Protonix) 40 mg DAILYAC 01/17/17 07:30 01/19/17 08:35 40 MG Piperacillin Sod/ Tazobactam Sod (Zosyn Per Pharmacy) 1 each PRN DAILY PRN 01/16/17 02:45 01/17/17 16:01 DC Piperacillin Sod/ Tazobactam Sod (Zosyn) 3.375 gm Q6HRS 01/17/17 18:00 01/18/17 10:42 DC 01/18/17 06:00 3.375 GM Piperacillin Sod/ Tazobactam Sod 3.375 gm/Dextrose 50 ml @ 100 mls/hr 1X ONCE 01/15/17 23:30 01/15/17 23:59 DC 01/15/17 23:22 100 MLS/HR Senna/Docusate Sodium (Senna Plus) 2 tab DAILY 01/19/17 12:00 Sodium Chloride 1,000 ml @ 100 mls/hr Q10H 01/16/17 13:45 01/18/17 11:44 DC 01/18/17 05:45 100 MLS/HR Vitamin D (Vitamin D3) 2,000 unit DAILY 01/17/17 09:00 01/19/17 08:36 2,000 UNIT Warfarin Sodium (Coumadin Per Pharmacy) 1 each PRN DAILY PRN 01/15/17 23:15 01/16/17 16:39 DC 01/16/17 10:20 1 EACH Warfarin Sodium (Coumadin) 5 mg 1X WARF ONCE 01/16/17 16:00 01/16/17 16:39 DC Lab Laboratory Tests Test 01/18/17 16:27 01/18/17 21:13 01/19/17 05:13 01/19/17 07:42 Glucose (Fingerstick) 135 mg/dL (70-99) 130 mg/dL (70-99) 132 mg/dL (70-99) White Blood Count 6.5 x10^3/uL (4.0-11.0) Red Blood Count 2.07 x10^6/uL (4.30-5.70) Hemoglobin 6.9 g/dL (13.0-17.5) Hematocrit 20.8 % (39.0-53.0) Mean Corpuscular Volume 100 fL (79-100) Mean Corpuscular Hemoglobin 33 pg (25-35) Mean Corpuscular Hemoglobin Concent 33 g/dL (31-37) Red Cell Distribution Width 15.6 % (11.5-14.5) Platelet Count 111 x10^3/uL (140-400) Neutrophils (%) (Auto) 84 % (31-73) Lymphocytes (%) (Auto) 8 % (24-48) Monocytes (%) (Auto) 8 % (0-9) Eosinophils (%) (Auto) 0 % (0-3) Basophils (%) (Auto) 0 % (0-3) Neutrophils # (Auto) 1.8 x10^3uL (1.8-7.7) Lymphocytes # (Auto) 0.2 x10^3/uL (1.0-4.8) Monocytes # (Auto) 4.6 x10^3/uL (0.0-1.1) Eosinophils # (Auto) 0.0 x10^3/uL (0.0-0.7) Basophils # (Auto) 0.0 x10^3/uL (0.0-0.2) Sodium Level 139 mmol/L (136-145) Potassium Level 4.3 mmol/L (3.5-5.1) Chloride Level 106 mmol/L (98-107) Carbon Dioxide Level 26 mmol/L (21-32) Anion Gap 7 (6-14) Blood Urea Nitrogen 29 mg/dL (8-26) Creatinine 1.5 mg/dL (0.7-1.3) Estimated GFR (Cockcroft-Gault) 46.1 Glucose Level 137 mg/dL (70-99) Calcium Level 7.7 mg/dL (8.5-10.1) Phosphorus Level 2.9 mg/dL (2.6-4.7) Magnesium Level 2.1 mg/dL (1.8-2.4) Albumin 2.8 g/dL (3.4-5.0) Test 01/19/17 11:21 Glucose (Fingerstick) 120 mg/dL (70-99) SERVANDO HARTMANN MD Jan 19, 2017 12:52
--- NOTE | 2017-01-19 13:52 | RAD ---
Portable chest, 01/19/2017: History: Check PICC placement Comparison is made to yesterday's exam. A right PICC has been inserted extending into the superior vena cava. The heart is at the upper limits of normal in size. Widening of the superior mediastinum is due to abundant mediastinal fat accentuated by the AP positioning. The pulmonary vascularity is normal. No pulmonary infiltrates are seen. There is no evidence of pleural fluid. IMPRESSION: 1. Interval insertion of a right PICC in satisfactory position. 2. No acute cardiopulmonary abnormality is detected.
--- NOTE | 2017-01-19 14:04 | PDOC ---
PROGRESS NOTES Subjective Subjective patient seen and examined L3 infiltrative mass with apparent fracture, appears unstable normal strength in BLE need lumbar MRI D/W family and Dr. 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 Labs Laboratory Tests Test 01/17/17 16:45 01/17/17 20:43 01/18/17 04:40 01/18/17 08:29 Glucose (Fingerstick) 155 mg/dL (70-99) 165 mg/dL (70-99) 147 mg/dL (70-99) Sodium Level 138 mmol/L (136-145) Potassium Level 4.5 mmol/L (3.5-5.1) Chloride Level 104 mmol/L (98-107) Carbon Dioxide Level 25 mmol/L (21-32) Anion Gap 9 (6-14) Blood Urea Nitrogen 25 mg/dL (8-26) Creatinine 1.5 mg/dL (0.7-1.3) Estimated GFR (Cockcroft-Gault) 46.1 Glucose Level 153 mg/dL (70-99) Calcium Level 7.9 mg/dL (8.5-10.1) Phosphorus Level 2.7 mg/dL (2.6-4.7) Magnesium Level 1.9 mg/dL (1.8-2.4) Albumin 2.8 g/dL (3.4-5.0) Test 01/18/17 11:14 01/18/17 16:27 01/18/17 21:13 01/19/17 05:13 Glucose (Fingerstick) 152 mg/dL (70-99) 135 mg/dL (70-99) 130 mg/dL (70-99) White Blood Count 6.5 x10^3/uL (4.0-11.0) Red Blood Count 2.07 x10^6/uL (4.30-5.70) Hemoglobin 6.9 g/dL (13.0-17.5) Hematocrit 20.8 % (39.0-53.0) Mean Corpuscular Volume 100 fL (79-100) Mean Corpuscular Hemoglobin 33 pg (25-35) Mean Corpuscular Hemoglobin Concent 33 g/dL (31-37) Red Cell Distribution Width 15.6 % (11.5-14.5) Platelet Count 111 x10^3/uL (140-400) Neutrophils (%) (Auto) 84 % (31-73) Lymphocytes (%) (Auto) 8 % (24-48) Monocytes (%) (Auto) 8 % (0-9) Eosinophils (%) (Auto) 0 % (0-3) Basophils (%) (Auto) 0 % (0-3) Neutrophils # (Auto) 1.8 x10^3uL (1.8-7.7) Lymphocytes # (Auto) 0.2 x10^3/uL (1.0-4.8) Monocytes # (Auto) 4.6 x10^3/uL (0.0-1.1) Eosinophils # (Auto) 0.0 x10^3/uL (0.0-0.7) Basophils # (Auto) 0.0 x10^3/uL (0.0-0.2) Sodium Level 139 mmol/L (136-145) Potassium Level 4.3 mmol/L (3.5-5.1) Chloride Level 106 mmol/L (98-107) Carbon Dioxide Level 26 mmol/L (21-32) Anion Gap 7 (6-14) Blood Urea Nitrogen 29 mg/dL (8-26) Creatinine 1.5 mg/dL (0.7-1.3) Estimated GFR (Cockcroft-Gault) 46.1 Glucose Level 137 mg/dL (70-99) Calcium Level 7.7 mg/dL (8.5-10.1) Phosphorus Level 2.9 mg/dL (2.6-4.7) Magnesium Level 2.1 mg/dL (1.8-2.4) Albumin 2.8 g/dL (3.4-5.0) Test 01/19/17 07:42 01/19/17 11:21 Glucose (Fingerstick) 132 mg/dL (70-99) 120 mg/dL (70-99) Laboratory Tests Test 01/18/17 16:27 01/18/17 21:13 01/19/17 05:13 01/19/17 07:42 Glucose (Fingerstick) 135 mg/dL (70-99) 130 mg/dL (70-99) 132 mg/dL (70-99) White Blood Count 6.5 x10^3/uL (4.0-11.0) Red Blood Count 2.07 x10^6/uL (4.30-5.70) Hemoglobin 6.9 g/dL (13.0-17.5) Hematocrit 20.8 % (39.0-53.0) Mean Corpuscular Volume 100 fL (79-100) Mean Corpuscular Hemoglobin 33 pg (25-35) Mean Corpuscular Hemoglobin Concent 33 g/dL (31-37) Red Cell Distribution Width 15.6 % (11.5-14.5) Platelet Count 111 x10^3/uL (140-400) Neutrophils (%) (Auto) 84 % (31-73) Lymphocytes (%) (Auto) 8 % (24-48) Monocytes (%) (Auto) 8 % (0-9) Eosinophils (%) (Auto) 0 % (0-3) Basophils (%) (Auto) 0 % (0-3) Neutrophils # (Auto) 1.8 x10^3uL (1.8-7.7) Lymphocytes # (Auto) 0.2 x10^3/uL (1.0-4.8) Monocytes # (Auto) 4.6 x10^3/uL (0.0-1.1) Eosinophils # (Auto) 0.0 x10^3/uL (0.0-0.7) Basophils # (Auto) 0.0 x10^3/uL (0.0-0.2) Sodium Level 139 mmol/L (136-145) Potassium Level 4.3 mmol/L (3.5-5.1) Chloride Level 106 mmol/L (98-107) Carbon Dioxide Level 26 mmol/L (21-32) Anion Gap 7 (6-14) Blood Urea Nitrogen 29 mg/dL (8-26) Creatinine 1.5 mg/dL (0.7-1.3) Estimated GFR (Cockcroft-Gault) 46.1 Glucose Level 137 mg/dL (70-99) Calcium Level 7.7 mg/dL (8.5-10.1) Phosphorus Level 2.9 mg/dL (2.6-4.7) Magnesium Level 2.1 mg/dL (1.8-2.4) Albumin 2.8 g/dL (3.4-5.0) Test 01/19/17 11:21 Glucose (Fingerstick) 120 mg/dL (70-99) Microbiology 01/15/17 Blood Culture - Preliminary, Resulted NO GROWTH AFTER 3 DAYS Medications Current Medications Fentanyl Citrate (Fentanyl 2ml Vial) 50 mcg 1X ONCE IV Last administered on 21:52; Start 01/15/17 at 22:00; Stop 01/15/17 at 22:01; Status DC Sodium Chloride 1,000 ml @ 150 mls/hr 1X ONCE IV Last administered on 22:31; Start 01/15/17 at 22:00; Stop 01/16/17 at 04:39; Status DC Piperacillin Sod/ Tazobactam Sod 3.375 gm/Dextrose 50 ml @ 100 mls/hr 1X ONCE IV Last administered on 01/15/17 23:22; Start 01/15/17 at 23:30; Stop 01/15 at 23:59; Status DC Heparin Sodium (Porcine) (Heparin Sodium) 9,450 unit 1X ONCE IV Last administered on 01/15/17 23:30; Start 01/15/17 at 23:30; Stop 01/16/17 at 16 :41; Status DC Heparin Sodium/ Dextrose 500 ml @ 0 mls/hr CONT PRN IV SEE I/O RECORD Last administered on 01/16/17 16:26; Start 01/15/17 at 23:15; Stop 01/16/17 at 16 :41; Status DC Heparin Sodium (Porcine) (Heparin Sodium) 3,550 unit PRN Q6HRS PRN IV FOR UFH LEVEL LESS THAN 0.2; Start 01/15/17 at 23:15; Stop 01/16/17 at 16:41; Status DC Heparin Sodium (Porcine) (Heparin Sodium) 1,750 unit PRN Q6HRS PRN IV FOR UFH LEVEL 0.2 - 0.29; Start 01/15/17 at 23:15; Stop 01/16/17 at 16:41; Status DC Warfarin Sodium (Coumadin Per Pharmacy) 1 each PRN DAILY PRN MC PER PROTOCOL Last administered on 01/16/17 10:20; Start 01/15/17 at 23:15; Stop 01/16/17 at 16:39; Status DC Info (Anti-Coagulation Monitoring By Pharmacy) 1 each PRN DAILY PRN MC SEE COMMENTS Last administered on 01/16/17 10:17; Start 01/15/17 at 23:30; Stop 01/18/17 at 14:31; Status DC Ondansetron HCl (Zofran) 4 mg PRN Q8HRS PRN IV NAUSEA/VOMITING; Start at 23:15; Stop 01/16/17 at 23:14; Status DC Fentanyl Citrate (Fentanyl 2ml Vial) 50 mcg PRN Q2HR PRN IV SEVERE PAIN Last administered on 01/16/17 01:33; Start 01/15/17 at 23:15; Stop 01/16/17 at 02 :47; Status DC Piperacillin Sod/ Tazobactam Sod (Zosyn Per Pharmacy) 1 each PRN DAILY PRN MC SEE COMMENTS; Start 01/15/17 at 23:15; Stop 01/16/17 at 02:54; Status DC Sodium Chloride 1,000 ml @ 150 mls/hr 1X ONCE IV Last administered on 01:34; Start 01/15/17 at 23:45; Stop 01/16/17 at 06:24; Status DC Albuterol Sulfate (Ventolin Neb Soln) 2.5 mg PRN Q3HRS PRN NEB WHEEZING Last administered on 01/16/17 11:24; Start 01/15/17 at 23:30 Morphine Sulfate 2 mg 1X ONCE IV Last administered on 01/15/17 23:47; Start 01/16/17 at 00:00; Stop 01/16/17 at 00:01; Status DC Fentanyl Citrate (Fentanyl 2ml Vial) 75 mcg PRN Q2HR PRN IV SEVERE PAIN Last administered on 01/16/17 13:56; Start 01/16/17 at 02:45; Stop 01/16/17 at 16 :41; Status DC Piperacillin Sod/ Tazobactam Sod (Zosyn Per Pharmacy) 1 each PRN DAILY PRN MC SEE COMMENTS; Start 01/16/17 at 02:45; Stop 01/17/17 at 16:01; Status DC Piperacillin Sod/ Tazobactam Sod (Zosyn) 2.25 gm Q6HRS IVP Last administered on 01/17/17 12:01; Start 01/16/17 at 06:00; Stop 01/17/17 at 16:01; Status DC Info (Anti-Coagulation Monitoring By Pharmacy) 1 each PRN DAILY PRN MC SEE COMMENTS; Start 01/16/17 at 09:45; Status Cancel Warfarin Sodium (Coumadin) 5 mg 1X WARF ONCE PO ; Start 01/16/17 at 16:00; Stop 01/16/17 at 16:39; Status DC Lactobacillus Rhamnosus (Culturelle) 1 cap BID PO Last administered on 08:36; Start 01/16/17 at 21:00 Magnesium Sulfate/ Dextrose 50 ml @ 25 mls/hr 1X ONCE IV Last administered on 01/16/17 12:45; Start 01/16/17 at 11:30; Stop 01/16/17 at 13:29; Status DC Linezolid 300 ml @ 300 mls/hr Q12HR IV Last administered on 01/16/17 20:58; Start 01/16/17 at 12:00; Stop 01/17/17 at 08:14; Status DC Iohexol (Omnipaque 240 Mg/ml) 30 ml 1X ONCE PO ; Start 01/16/17 at 12:00; Stop 01/16/17 at 12:01; Status DC Info (Do NOT chart on this entry -- for MONITORING) 1 each PRN DAILY PRN MC SEE COMMENTS; Start 01/16/17 at 12:00; Stop 01/18/17 at 11:59; Status DC Magnesium Sulfate/ Dextrose 50 ml @ 25 mls/hr PRN DAILY PRN IV for Mag < 1.7 on am labs; Start 01/16/17 at 13:15 Metoprolol Succinate (Toprol Xl) 50 mg BID PO Last administered on 01/19/17 08 :36; Start 01/16/17 at 21:00 Sodium Chloride 1,000 ml @ 100 mls/hr Q10H IV Last administered on 01/18/17 05:45; Start 01/16/17 at 13:45; Stop 01/18/17 at 11:44; Status DC Aspirin (Charmaine Aspirin) 325 mg DAILYWBKFT PO Last administered on 01/19/17 08: 35; Start 01/17/17 at 08:00; Stop 01/19/17 at 09:49; Status DC Atorvastatin Calcium (Lipitor) 40 mg QHS PO Last administered on 01/18/17 20: 16; Start 01/16/17 at 21:00 Vitamin D (Vitamin D3) 2,000 unit DAILY PO Last administered on 01/19/17 08:36 ; Start 01/17/17 at 09:00 Clonidine HCl (Catapres) 0.1 mg BID PO Last administered on 01/19/17 08:35; Start 01/16/17 at 21:00; Stop 01/19/17 at 09:52; Status DC Folic Acid (Folic Acid) 1 mg DAILY PO Last administered on 01/19/17 08:36; Start 01/17/17 at 09:00 Loperamide HCl (Imodium) 2 mg Q2H PRN PO diarrhea; Start 01/16/17 at 16:45 Metoprolol Succinate (Toprol Xl) 100 mg BID PO ; Start 01/16/17 at 21:00; Status UNV Gabapentin (Neurontin) 600 mg TID PO Last administered on 01/19/17 08:36; Start 01/16/17 at 21:00 Pantoprazole Sodium (Protonix) 40 mg DAILYAC PO Last administered on 01/19/17 08:35; Start 01/17/17 at 07:30 Insulin Aspart (NovoLOG) 0-9 UNITS TIDWMEALS SQ Last administered on 01/17/17 17:37; Start 01/16/17 at 17:00 Dextrose (Dextrose 50%-Water Syringe) 12.5 gm PRN Q15MIN PRN IV SEE COMMENTS; Start 01/16/17 at 16:45 Dexamethasone Sodium Phosphate (Decadron) 10 mg 1X ONCE IV Last administered on 01/16/17 17:05; Start 01/16/17 at 16:45; Stop 01/16/17 at 16:46; Status DC Dexamethasone Sodium Phosphate (Decadron) 4 mg Q6HRS IV Last administered on 05:58; Start 01/17/17 at 00:00; Stop 01/18/17 at 15:31; Status DC Morphine Sulfate 2 mg PRN Q2HR PRN IV PAIN Last administered on 01/18/17 19:30 ; Start 01/16/17 at 16:45 Oxycodone/ Acetaminophen (Percocet 10/325) 1 tab PRN Q4HRS PRN PO pain Last administered on 01/19/17 08:43; Start 01/16/17 at 16:45 Heparin Sodium (Porcine) (Heparin Sq) 5,000 unit Q8HRS SQ Last administered on 01/19/17 06:21; Start 01/16/17 at 22:00 Diazepam (Valium) 5 mg PRN Q6HRS PRN IV SEIZURES; Start 01/16/17 at 18:30; Status Cancel Diazepam (Valium) 5 mg PRN Q6HRS PRN PO TREMORS Last administered on 01/17/17 20:05; Start 01/16/17 at 18:45 Fentanyl Citrate (Fentanyl 2ml Vial) 100 mcg STK-MED ONCE .ROUTE ; Start at 10:08; Stop 01/17/17 at 10:09; Status DC Midazolam HCl (Versed) 2 mg STK-MED ONCE .ROUTE ; Start 01/17/17 at 10:08; Stop 01/17/17 at 10:09; Status DC Lidocaine/Sodium Bicarbonate (Buffered Lidocaine 1%) 20 ml 1X ONCE IJ Last administered on 01/17/17 10:51; Start 01/17/17 at 10:15; Stop 01/17/17 at 10:16 ; Status DC Midazolam HCl (Versed) 2 mg 1X ONCE IV Last administered on 01/17/17 10:52; Start 01/17/17 at 10:15; Stop 01/17/17 at 10:16; Status DC Fentanyl Citrate (Fentanyl 2ml Vial) 100 mcg 1X ONCE IV Last administered on 01/17/17 10:52; Start 01/17/17 at 10:15; Stop 01/17/17 at 10:16; Status DC Lidocaine/Sodium Bicarbonate (Buffered Lidocaine 1%) 20 ml STK-MED ONCE IJ ; Start 01/17/17 at 10:14; Stop 01/17/17 at 10:15; Status DC Piperacillin Sod/ Tazobactam Sod (Zosyn) 3.375 gm Q6HRS IVP Last administered on 01/18/17 06:00; Start 01/17/17 at 18:00; Stop 01/18/17 at 10:42; Status DC Dexamethasone Sodium Phosphate (Decadron) 4 mg Q12HR IV Last administered on 08:43; Start 01/18/17 at 21:00 Aspirin (Ecotrin) 81 mg DAILYWBKFT PO ; Start 01/20/17 at 08:00 Amlodipine Besylate (Norvasc) 10 mg DAILY PO ; Start 01/19/17 at 10:00 Oxycodone HCl (OxyCONTIN) 30 mg Q12HR PO ; Start 01/19/17 at 11:45 Senna/Docusate Sodium (Senna Plus) 2 tab DAILY PO ; Start 01/19/17 at 12:00 Active Scripts Active Reported Imodium A-D (Loperamide HCl) 2 Mg Capsule 2 Mg PO Aspirin 325 Mg Tablet 1 Tab PO DAILY Vitamin D3 (Cholecalciferol (Vitamin D3)) 1,000 Unit Tablet 2,000 Unit PO Vicodin Es 7.5-300 Mg Tablet (Hydrocodone Bit/Acetaminophen) 1 Each Tablet 1 Each PO Q6H PRN Humira (Adalimumab) 40 Mg/0.8 Ml Pen.ij.kit 1 Syr SQ Q2WKS Folbic Rf Tablet (B12/Levomefolate Calcium/B-6) 1 Each Tablet 1 Each PO Omeprazole 40 Mg Capsule.dr 1 Cap PO DAILY Cholestyramine Packet (Cholestyramine (With Sugar)) 4 Gm Powd.pack 4 Gm PO Gabapentin 600 Mg Tablet 600 Mg PO TID Folic Acid 1 Mg Tablet 1 Tab PO DAILY Clonidine Hcl 0.1 Mg Tablet 0.1 Mg PO BID Metformin Hcl 1,000 Mg Tablet 1,000 Mg PO BIDWMEALS Atorvastatin Calcium 40 Mg Tablet 1 Tab PO DAILY Metoprolol Succinate ( Xl ) (Metoprolol Succinate) 100 Mg Tab.er.24h 100 Mg PO BID Vitals/I & O Vital Sign - Last 24 Hours 11/2/17 01/18/17 01/18/17 01/18/17 14:58 15:45 19:17 19:30 Temp 97.9 98.0 97.9 98.0 Pulse 69 68 78 Resp 23 22 22 B/P (MAP) 190/84 (119) 166/80 (108) 157/74 (101) Pulse Ox 100 99 100 O2 Delivery Nasal Cannula Nasal Cannula Nasal Cannula Nasal Cannula O2 Flow Rate 2.0 2.0 2.0 01/18/17 01/18/17 01/18/17 01/18/17 19:45 20:15 20:16 20:16 Pulse 78 B/P (MAP) 157/74 O2 Delivery Nasal Cannula Nasal Cannula Room Air O2 Flow Rate 2.0 01/18/17 01/18/17 01/19/17 01/19/17 20:17 23:00 03:02 03:56 Temp 98.1 98.1 Pulse 78 63 66 Resp 18 18 B/P (MAP) 157/74 161/73 (102) 165/77 (106) Pulse Ox 100 97 O2 Delivery Nasal Cannula Nasal Cannula Nasal Cannula O2 Flow Rate 2.0 2.0 01/19/17 01/19/17 01/19/17 01/19/17 07:38 08:00 08:35 08:36 Temp 98.6 98.6 Pulse 70 70 70 Resp 20 B/P (MAP) 176/82 (113) 176/82 176/82 Pulse Ox 97 O2 Delivery Nasal Cannula Nasal Cannula O2 Flow Rate 2.0 2.0 01/19/17 01/19/17 01/19/17 08:43 10:27 11:17 Temp 97.4 97.4 Pulse 62 Resp 21 B/P (MAP) 146/60 (88) Pulse Ox 96 O2 Delivery Nasal Cannula Nasal Cannula Nasal Cannula O2 Flow Rate 2.0 2.0 2.0 Intake and Output 01/19/17 01/19/17 01/20/17 15:00 23:00 07:00 Intake Total 240 ml Balance 240 ml NADINE ARCE MD Jan 19, 2017 14:04
--- NOTE | 2017-01-19 14:06 | PDOC ---
Provider Note Provider Note 71 yo man with back pain and destructive lesion at L3 concerning for metastatic disease. Pain minimal at bed rest, much worse when sitting or standing. No neuro changes. noted. CT guided bx of L3 revealed on hemorrhage no cells of any kind seen. Bone scan osteopenia at L3 otherwise negative. Met bone survey demineralization, benign sclerotic changes in spine, Chance fracture at L3 SPEP in progress. Impression: Probable benign fracture after fall when hypoglycemic. No evidence for malignancy thus far. Await SPEP outcome. Repeat MRI L spine requested by NS. Await NS evaluation and recommendations after repeat L spine MRI Discussed with patient. CHERRY CINTRON MD Jan 19, 2017 14:06
[2017-01-19 14:27] LABS: KAPPA LAMBDA RATIO 1.17 (0.26-1.65)
[2017-01-19] MEDS ORDERED: GADOBUTROL 10 MMOL/10 ML VIAL IV ONE (15:45)
--- NOTE | 2017-01-19 16:43 | RAD ---
EXAMINATION: Magnetic resonance imaging (MRI) of the lumbar spine without and with contrast 01/19/2017 HISTORY: Chronic, but worsening low back pain. Bilateral leg weakness. Bone lesion. TECHNIQUE: Multiplanar multi-weighted MRI of the lumbar spine was performed without and with intravenous contrast using the standard lumbar spine protocol. Contrast information: 9 mL Gadolinium based contrast COMPARISON: CT lumbar spine January 15, 2017 FINDINGS: There is straightening of the normal lumbar lordosis. There is autofusion of T11-T12, L1-L2, and L3-L5. There is a superior endplate compression deformity involving T11 with approximately 25 percent loss of height which appears chronic. There is approximately 10-15 percent loss of height involving T12. There is low signal intensity replacing the L3 vertebral body without suspicious enhancement. Central heterogeneity is compatible with blood products from hematoma. There is an epidural hematoma extending along the ventral epidural space from L4 to L1. There is a posterior epidural hematoma centered at L4. There is severe spinal canal stenosis at the L3-L4 level secondary to posterior and anterior epidural hematoma. There is separation of the superior and inferior vertebral body of L3 with extension of fracture through the posterior elements. There is disruption of the posterior longitudinal ligament, ligamentum flavum and interspinous ligaments at L2-L3. Interspinous ligamentous edema and supraspinous ligament edema is present. There is destruction of the anterior longitudinal ligament. There is epidural lipomatosis at L2-L3, L3-L4 and L4-L5 exacerbating degrees of spinal stenosis there is severe spinal canal stenosis from L2-L3 to L4-L5 with clumping of the nerve roots. Distal spinal cord terminates at L1-L2. Distal spinal cord signal intensity is normal on all sequences. No suspicious osseous lesions are identified. No suspicious enhancement is present. IMPRESSION: There is autofusion of L1-L2 and L3-L5 with a distracted fracture extending through the anterior, middle and posterior columns of the L3 vertebrae as well as the posterior elements at the L3 vertebral level compatible with a Chance fracture. There is disruption of the anterior and posterior longitudinal ligaments as well as the posterior ligamentous complex. There is an epidural hematoma resulting in severe spinal canal stenosis and likely cauda equina syndrome. Critical results were discussed with Shaneka, the patient's nurse at 4:30 PM on 01/19/2017. Electronically signed by: Rosaline Finley MD (01/19/2017 4:40 PM) [facility]
[2017-01-19] MEDS: MORPHINE SULFATE 2 MG/ML DISP.SYRIN. IV PRN (19:55)
[2017-01-19] MEDS: diazePAM 5 MG TABLET PO PRN (20:58)
[2017-01-19] MEDS: ATORVASTATIN CALCIUM 40 MG TABLET. PO SCH (20:59)
[2017-01-20] MEDS: MORPHINE SULFATE 2 MG/ML DISP.SYRIN. IV PRN ×2 (00:47→07:31)
[2017-01-20] MEDS: oxyCODONE/APAP 10/325 1 TAB TABLET PO PRN ×4 (00:47→17:41)
[2017-01-20 03:20] VITALS: BP 140/70
[2017-01-20] MEDS: HEPARIN PF for SUB-Q USE 5,000 UNIT/0.5 ML VIAL. SQ SCH ×3 (05:27→21:19)
[2017-01-20 06:44] LABS: ALBUMIN 2.9 g/dL (3.4-5.0); CALCIUM 7.9 mg/dL (8.5-10.1); CREATININE 1.4 mg/dL (0.7-1.3); PHOSPHORUS 2.9 mg/dL (2.6-4.7); POTASSIUM 4.2 mmol/L (3.5-5.1)
[2017-01-20 07:13] LABS: BASO % 0 % (0-3); EOS % 0 % (0-3); HEMATOCRIT 23.5 % (39.0-53.0); LYMPH # 0.6 x10^3/uL (1.0-4.8); LYMPH % 9 % (24-48); MEAN CORPUSCULAR HEMOGLOBIN 33 pg (25-35); MEAN CORPUSCULAR HGB CONC 34 g/dL (31-37); MEAN CORPUSCULAR VOLUME 97 fL (79-100); MONO % 9 % (0-9); NEUT % 82 % (31-73); PLATELET COUNT 125 x10^3/uL (140-400); RED BLOOD COUNT 2.42 x10^6/uL (4.30-5.70); RED CELL DISTRIBUTION WIDTH 18.8 % (11.5-14.5); WHITE BLOOD COUNT 7.1 x10^3/uL (4.0-11.0)
[2017-01-20 07:15] VITALS: BP 152/65
[2017-01-20] MEDS: GABAPENTIN 300 MG CAPSULE. PO SCH ×3 (07:32→21:07)
[2017-01-20] MEDS: diazePAM 5 MG TABLET PO PRN (07:32)
[2017-01-20] MEDS: DEXAMETHASONE SOD PHOS 4 MG/ML VIAL IV SCH ×2 (07:32→21:14)
[2017-01-20] MEDS: oxyCODONE ER 15 MG TAB.ER.12H PO SCH ×2 (07:38→21:11)
[2017-01-20] MEDS: ASPIRIN ENTERIC COATED 81 MG TABLET.DR. PO SCH (08:42)
[2017-01-20] MEDS: PANTOPRAZOLE 40 MG TABLET.DR. PO SCH (08:42)
[2017-01-20] MEDS: amLODIPine BESYLATE 10 MG TABLET PO SCH (08:42)
[2017-01-20] MEDS: CHOLECALCIFEROL (VITAMIN D3) 1,000 UNIT TABLET PO SCH (08:42)
[2017-01-20] MEDS: LACTOBACILLUS RHAMNOSUS GG 1 CAPSULE. PO SCH ×2 (08:43→21:07)
[2017-01-20] MEDS: SENNOSIDES/DOCUSATE 8.6/50MG TABLET. PO SCH (08:43)
[2017-01-20] MEDS: FOLIC ACID 1 MG TABLET. PO SCH (08:43)
[2017-01-20] MEDS: METOPROLOL SUCC 24HR ER 50 MG TAB.ER.24H. PO SCH ×2 (08:43→21:00)
[2017-01-20] MEDS: INSULIN ASPART 300 UNITS/3 ML INSULN.PEN SQ SCH ×3 (08:50→17:00)
[2017-01-20 10:40] VITALS: BP 155/74
--- NOTE | 2017-01-20 11:08 | PDOC ---
Renal-Progress Notes Subjective Notes Notes NONE History of Present Illness Hx of present illness NO CHANGE Vitals Vitals Vital Signs Date Time Temp Pulse Resp B/P (MAP) Pulse Ox O2 Delivery O2 Flow Rate FiO2 01/20/17 10:40 97.8 86 22 155/74 (101) 94 Nasal Cannula 2.0 97.8 Weight Weight [ ] Labs Labs Laboratory Tests Test 01/19/17 11:21 01/19/17 16:24 01/19/17 20:24 01/20/17 06:15 Glucose (Fingerstick) 120 mg/dL (70-99) 124 mg/dL (70-99) 126 mg/dL (70-99) White Blood Count 7.1 x10^3/uL (4.0-11.0) Red Blood Count 2.42 x10^6/uL (4.30-5.70) Hemoglobin 8.0 g/dL (13.0-17.5) Hematocrit 23.5 % (39.0-53.0) Mean Corpuscular Volume 97 fL (79-100) Mean Corpuscular Hemoglobin 33 pg (25-35) Mean Corpuscular Hemoglobin Concent 34 g/dL (31-37) Red Cell Distribution Width 18.8 % (11.5-14.5) Platelet Count 125 x10^3/uL (140-400) Neutrophils (%) (Auto) 82 % (31-73) Lymphocytes (%) (Auto) 9 % (24-48) Monocytes (%) (Auto) 9 % (0-9) Eosinophils (%) (Auto) 0 % (0-3) Basophils (%) (Auto) 0 % (0-3) Neutrophils # (Auto) 5.8 x10^3uL (1.8-7.7) Lymphocytes # (Auto) 0.6 x10^3/uL (1.0-4.8) Monocytes # (Auto) 0.6 x10^3/uL (0.0-1.1) Eosinophils # (Auto) 0.0 x10^3/uL (0.0-0.7) Basophils # (Auto) 0.0 x10^3/uL (0.0-0.2) Sodium Level 140 mmol/L (136-145) Potassium Level 4.2 mmol/L (3.5-5.1) Chloride Level 106 mmol/L (98-107) Carbon Dioxide Level 28 mmol/L (21-32) Anion Gap 6 (6-14) Blood Urea Nitrogen 31 mg/dL (8-26) Creatinine 1.4 mg/dL (0.7-1.3) Estimated GFR (Cockcroft-Gault) 50.0 Glucose Level 138 mg/dL (70-99) Calcium Level 7.9 mg/dL (8.5-10.1) Phosphorus Level 2.9 mg/dL (2.6-4.7) Magnesium Level 2.2 mg/dL (1.8-2.4) Albumin 2.9 g/dL (3.4-5.0) Test 01/20/17 07:20 Glucose (Fingerstick) 255 mg/dL (70-99) Micro Micro Microbiology 01/15/17 Blood Culture - Preliminary, Resulted NO GROWTH AFTER 4 DAYS Review of Systems Constitutional: yes: weakness, alert Ears/Nose/Throat: Yes: no symptom reported Eyes: Yes: no symptom reported Pulmonary: Yes no symptom reported Cardiovascular: Yes no symptom reported Gastrointestional: Yes: no symptom reported Skin: Yes no symptom reported Psychiatric/Neurological: Yes: no symptom reported Endocrine: Yes: no symptom reported Hematologic/Lymphatic: Yes: no symptom reported Physical Exam General Appearance: no apparent distress Skin: warm Respiratory: bilateral CTA Heart: S1S2, RRR Abdomen: soft Neurology: alert, oriented, follow commands Musculoskeletal: Osteoarthritis Assessment Assessment IMP ANDREINA-IMPROVED CR 2.4 TO 1.4 DEHYDRATION ANEMIA HX CROHN'S LUMBAR LESION PLAN IVF'S LABS IN AM MET WORK UP ROME FERNANDEZ MD Jan 20, 2017 11:08
[2017-01-20] MEDS: IV NORMAL SALINE 1000ML BAG 1,000 ML IV SCH (12:30)
[2017-01-20 15:05] VITALS: BP 140/67
--- NOTE | 2017-01-20 16:46 | PDOC ---
PROGRESS NOTES Chief Complaint Chief Complaint Syncope and collapse 1. L3 spinal mass: highly suspicious for malignancy. 2. Back pain: partly trauma, partly new-found mass at L3. treat symptomatically. 3. Syncope: ruled out for ACS; cardiology following, echo essential normal, 4. Renal mass vs complex cyst: renal US with cyst, small 5. ANDREINA on CKD: creat improved 7. DM2: hold metformin for now. in ISS with good control. 8. 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 iron/ferritin, B12/folate WNL. 9. Dyspnea: V/Q scan low probability for PE. does have ALESIA (using CPAP, will bring his machine), also suspected hypoventilation syndrome, no COPD dx. 10. PAF: currently in NSR. will need OAC when bx complete 11. CAD: hx mult stents; no acute issues. cont 2ary prevention meds 12. Crohn's: in immunosuppressive meds (Humira q2 weeks) 13. Alcoholism: daily beer and scotch. no apparent W/D sx History of Present Illness History of Present Illness pain with movement, incl for radiographic studies Vitals Vitals Vital Signs Date Time Temp Pulse Resp B/P (MAP) Pulse Ox O2 Delivery O2 Flow Rate FiO2 01/20/17 15:05 97.4 53 18 140/67 (91) 100 Nasal Cannula 2.0 97.4 Physical Exam General: Alert, Oriented X3, No acute distress Heart: Normal S1, Normal S2 Abdomen: Normal bowel sounds, Soft, No tenderness Extremities: No clubbing, No edema Skin: No rashes Labs LABS Laboratory Tests Test 01/19/17 20:24 01/20/17 06:15 01/20/17 07:20 01/20/17 11:35 Glucose (Fingerstick) 126 mg/dL (70-99) 255 mg/dL (70-99) 121 mg/dL (70-99) White Blood Count 7.1 x10^3/uL (4.0-11.0) Red Blood Count 2.42 x10^6/uL (4.30-5.70) Hemoglobin 8.0 g/dL (13.0-17.5) Hematocrit 23.5 % (39.0-53.0) Mean Corpuscular Volume 97 fL (79-100) Mean Corpuscular Hemoglobin 33 pg (25-35) Mean Corpuscular Hemoglobin Concent 34 g/dL (31-37) Red Cell Distribution Width 18.8 % (11.5-14.5) Platelet Count 125 x10^3/uL (140-400) Neutrophils (%) (Auto) 82 % (31-73) Lymphocytes (%) (Auto) 9 % (24-48) Monocytes (%) (Auto) 9 % (0-9) Eosinophils (%) (Auto) 0 % (0-3) Basophils (%) (Auto) 0 % (0-3) Neutrophils # (Auto) 5.8 x10^3uL (1.8-7.7) Lymphocytes # (Auto) 0.6 x10^3/uL (1.0-4.8) Monocytes # (Auto) 0.6 x10^3/uL (0.0-1.1) Eosinophils # (Auto) 0.0 x10^3/uL (0.0-0.7) Basophils # (Auto) 0.0 x10^3/uL (0.0-0.2) Sodium Level 140 mmol/L (136-145) Potassium Level 4.2 mmol/L (3.5-5.1) Chloride Level 106 mmol/L (98-107) Carbon Dioxide Level 28 mmol/L (21-32) Anion Gap 6 (6-14) Blood Urea Nitrogen 31 mg/dL (8-26) Creatinine 1.4 mg/dL (0.7-1.3) Estimated GFR (Cockcroft-Gault) 50.0 Glucose Level 138 mg/dL (70-99) Calcium Level 7.9 mg/dL (8.5-10.1) Phosphorus Level 2.9 mg/dL (2.6-4.7) Magnesium Level 2.2 mg/dL (1.8-2.4) Albumin 2.9 g/dL (3.4-5.0) Assessment and Plan Assessmemt and Plan Problems Medical Problems: (1) Elevated d-dimer Status: Acute (2) Elevated serum creatinine Status: Acute (3) Hypoxia Status: Acute (4) Lactic acidosis Status: Acute (5) 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 Labs Laboratory Tests Test 01/18/17 21:13 01/19/17 05:13 01/19/17 07:42 01/19/17 11:21 Glucose (Fingerstick) 130 mg/dL (70-99) 132 mg/dL (70-99) 120 mg/dL (70-99) White Blood Count 6.5 x10^3/uL (4.0-11.0) Red Blood Count 2.07 x10^6/uL (4.30-5.70) Hemoglobin 6.9 g/dL (13.0-17.5) Hematocrit 20.8 % (39.0-53.0) Mean Corpuscular Volume 100 fL (79-100) Mean Corpuscular Hemoglobin 33 pg (25-35) Mean Corpuscular Hemoglobin Concent 33 g/dL (31-37) Red Cell Distribution Width 15.6 % (11.5-14.5) Platelet Count 111 x10^3/uL (140-400) Neutrophils (%) (Auto) 84 % (31-73) Lymphocytes (%) (Auto) 8 % (24-48) Monocytes (%) (Auto) 8 % (0-9) Eosinophils (%) (Auto) 0 % (0-3) Basophils (%) (Auto) 0 % (0-3) Neutrophils # (Auto) 1.8 x10^3uL (1.8-7.7) Lymphocytes # (Auto) 0.2 x10^3/uL (1.0-4.8) Monocytes # (Auto) 4.6 x10^3/uL (0.0-1.1) Eosinophils # (Auto) 0.0 x10^3/uL (0.0-0.7) Basophils # (Auto) 0.0 x10^3/uL (0.0-0.2) Sodium Level 139 mmol/L (136-145) Potassium Level 4.3 mmol/L (3.5-5.1) Chloride Level 106 mmol/L (98-107) Carbon Dioxide Level 26 mmol/L (21-32) Anion Gap 7 (6-14) Blood Urea Nitrogen 29 mg/dL (8-26) Creatinine 1.5 mg/dL (0.7-1.3) Estimated GFR (Cockcroft-Gault) 46.1 Glucose Level 137 mg/dL (70-99) Calcium Level 7.7 mg/dL (8.5-10.1) Phosphorus Level 2.9 mg/dL (2.6-4.7) Magnesium Level 2.1 mg/dL (1.8-2.4) Albumin 2.8 g/dL (3.4-5.0) Test 01/19/17 16:24 01/19/17 20:24 01/20/17 06:15 01/20/17 07:20 Glucose (Fingerstick) 124 mg/dL (70-99) 126 mg/dL (70-99) 255 mg/dL (70-99) White Blood Count 7.1 x10^3/uL (4.0-11.0) Red Blood Count 2.42 x10^6/uL (4.30-5.70) Hemoglobin 8.0 g/dL (13.0-17.5) Hematocrit 23.5 % (39.0-53.0) Mean Corpuscular Volume 97 fL (79-100) Mean Corpuscular Hemoglobin 33 pg (25-35) Mean Corpuscular Hemoglobin Concent 34 g/dL (31-37) Red Cell Distribution Width 18.8 % (11.5-14.5) Platelet Count 125 x10^3/uL (140-400) Neutrophils (%) (Auto) 82 % (31-73) Lymphocytes (%) (Auto) 9 % (24-48) Monocytes (%) (Auto) 9 % (0-9) Eosinophils (%) (Auto) 0 % (0-3) Basophils (%) (Auto) 0 % (0-3) Neutrophils # (Auto) 5.8 x10^3uL (1.8-7.7) Lymphocytes # (Auto) 0.6 x10^3/uL (1.0-4.8) Monocytes # (Auto) 0.6 x10^3/uL (0.0-1.1) Eosinophils # (Auto) 0.0 x10^3/uL (0.0-0.7) Basophils # (Auto) 0.0 x10^3/uL (0.0-0.2) Sodium Level 140 mmol/L (136-145) Potassium Level 4.2 mmol/L (3.5-5.1) Chloride Level 106 mmol/L (98-107) Carbon Dioxide Level 28 mmol/L (21-32) Anion Gap 6 (6-14) Blood Urea Nitrogen 31 mg/dL (8-26) Creatinine 1.4 mg/dL (0.7-1.3) Estimated GFR (Cockcroft-Gault) 50.0 Glucose Level 138 mg/dL (70-99) Calcium Level 7.9 mg/dL (8.5-10.1) Phosphorus Level 2.9 mg/dL (2.6-4.7) Magnesium Level 2.2 mg/dL (1.8-2.4) Albumin 2.9 g/dL (3.4-5.0) Test 01/20/17 11:35 Glucose (Fingerstick) 121 mg/dL (70-99) Laboratory Tests Test 01/19/17 20:24 01/20/17 06:15 01/20/17 07:20 01/20/17 11:35 Glucose (Fingerstick) 126 mg/dL (70-99) 255 mg/dL (70-99) 121 mg/dL (70-99) White Blood Count 7.1 x10^3/uL (4.0-11.0) Red Blood Count 2.42 x10^6/uL (4.30-5.70) Hemoglobin 8.0 g/dL (13.0-17.5) Hematocrit 23.5 % (39.0-53.0) Mean Corpuscular Volume 97 fL (79-100) Mean Corpuscular Hemoglobin 33 pg (25-35) Mean Corpuscular Hemoglobin Concent 34 g/dL (31-37) Red Cell Distribution Width 18.8 % (11.5-14.5) Platelet Count 125 x10^3/uL (140-400) Neutrophils (%) (Auto) 82 % (31-73) Lymphocytes (%) (Auto) 9 % (24-48) Monocytes (%) (Auto) 9 % (0-9) Eosinophils (%) (Auto) 0 % (0-3) Basophils (%) (Auto) 0 % (0-3) Neutrophils # (Auto) 5.8 x10^3uL (1.8-7.7) Lymphocytes # (Auto) 0.6 x10^3/uL (1.0-4.8) Monocytes # (Auto) 0.6 x10^3/uL (0.0-1.1) Eosinophils # (Auto) 0.0 x10^3/uL (0.0-0.7) Basophils # (Auto) 0.0 x10^3/uL (0.0-0.2) Sodium Level 140 mmol/L (136-145) Potassium Level 4.2 mmol/L (3.5-5.1) Chloride Level 106 mmol/L (98-107) Carbon Dioxide Level 28 mmol/L (21-32) Anion Gap 6 (6-14) Blood Urea Nitrogen 31 mg/dL (8-26) Creatinine 1.4 mg/dL (0.7-1.3) Estimated GFR (Cockcroft-Gault) 50.0 Glucose Level 138 mg/dL (70-99) Calcium Level 7.9 mg/dL (8.5-10.1) Phosphorus Level 2.9 mg/dL (2.6-4.7) Magnesium Level 2.2 mg/dL (1.8-2.4) Albumin 2.9 g/dL (3.4-5.0) Microbiology 01/15/17 Blood Culture - Preliminary, Resulted NO GROWTH AFTER 4 DAYS Medications Current Medications Fentanyl Citrate (Fentanyl 2ml Vial) 50 mcg 1X ONCE IV Last administered on 21:52; Start 01/15/17 at 22:00; Stop 01/15/17 at 22:01; Status DC Sodium Chloride 1,000 ml @ 150 mls/hr 1X ONCE IV Last administered on 22:31; Start 01/15/17 at 22:00; Stop 01/16/17 at 04:39; Status DC Piperacillin Sod/ Tazobactam Sod 3.375 gm/Dextrose 50 ml @ 100 mls/hr 1X ONCE IV Last administered on 01/15/17 23:22; Start 01/15/17 at 23:30; Stop 01/15 at 23:59; Status DC Heparin Sodium (Porcine) (Heparin Sodium) 9,450 unit 1X ONCE IV Last administered on 01/15/17 23:30; Start 01/15/17 at 23:30; Stop 01/16/17 at 16 :41; Status DC Heparin Sodium/ Dextrose 500 ml @ 0 mls/hr CONT PRN IV SEE I/O RECORD Last administered on 01/16/17 16:26; Start 01/15/17 at 23:15; Stop 01/16/17 at 16 :41; Status DC Heparin Sodium (Porcine) (Heparin Sodium) 3,550 unit PRN Q6HRS PRN IV FOR UFH LEVEL LESS THAN 0.2; Start 01/15/17 at 23:15; Stop 01/16/17 at 16:41; Status DC Heparin Sodium (Porcine) (Heparin Sodium) 1,750 unit PRN Q6HRS PRN IV FOR UFH LEVEL 0.2 - 0.29; Start 01/15/17 at 23:15; Stop 01/16/17 at 16:41; Status DC Warfarin Sodium (Coumadin Per Pharmacy) 1 each PRN DAILY PRN MC PER PROTOCOL Last administered on 01/16/17 10:20; Start 01/15/17 at 23:15; Stop 01/16/17 at 16:39; Status DC Info (Anti-Coagulation Monitoring By Pharmacy) 1 each PRN DAILY PRN MC SEE COMMENTS Last administered on 01/16/17 10:17; Start 01/15/17 at 23:30; Stop 01/18/17 at 14:31; Status DC Ondansetron HCl (Zofran) 4 mg PRN Q8HRS PRN IV NAUSEA/VOMITING; Start at 23:15; Stop 01/16/17 at 23:14; Status DC Fentanyl Citrate (Fentanyl 2ml Vial) 50 mcg PRN Q2HR PRN IV SEVERE PAIN Last administered on 01/16/17 01:33; Start 01/15/17 at 23:15; Stop 01/16/17 at 02 :47; Status DC Piperacillin Sod/ Tazobactam Sod (Zosyn Per Pharmacy) 1 each PRN DAILY PRN MC SEE COMMENTS; Start 01/15/17 at 23:15; Stop 01/16/17 at 02:54; Status DC Sodium Chloride 1,000 ml @ 150 mls/hr 1X ONCE IV Last administered on 01:34; Start 01/15/17 at 23:45; Stop 01/16/17 at 06:24; Status DC Albuterol Sulfate (Ventolin Neb Soln) 2.5 mg PRN Q3HRS PRN NEB WHEEZING Last administered on 01/16/17 11:24; Start 01/15/17 at 23:30 Morphine Sulfate 2 mg 1X ONCE IV Last administered on 01/15/17 23:47; Start 01/16/17 at 00:00; Stop 01/16/17 at 00:01; Status DC Fentanyl Citrate (Fentanyl 2ml Vial) 75 mcg PRN Q2HR PRN IV SEVERE PAIN Last administered on 01/16/17 13:56; Start 01/16/17 at 02:45; Stop 01/16/17 at 16 :41; Status DC Piperacillin Sod/ Tazobactam Sod (Zosyn Per Pharmacy) 1 each PRN DAILY PRN MC SEE COMMENTS; Start 01/16/17 at 02:45; Stop 01/17/17 at 16:01; Status DC Piperacillin Sod/ Tazobactam Sod (Zosyn) 2.25 gm Q6HRS IVP Last administered on 01/17/17 12:01; Start 01/16/17 at 06:00; Stop 01/17/17 at 16:01; Status DC Info (Anti-Coagulation Monitoring By Pharmacy) 1 each PRN DAILY PRN MC SEE COMMENTS; Start 01/16/17 at 09:45; Status Cancel Warfarin Sodium (Coumadin) 5 mg 1X WARF ONCE PO ; Start 01/16/17 at 16:00; Stop 01/16/17 at 16:39; Status DC Lactobacillus Rhamnosus (Culturelle) 1 cap BID PO Last administered on 08:43; Start 01/16/17 at 21:00 Magnesium Sulfate/ Dextrose 50 ml @ 25 mls/hr 1X ONCE IV Last administered on 01/16/17 12:45; Start 01/16/17 at 11:30; Stop 01/16/17 at 13:29; Status DC Linezolid 300 ml @ 300 mls/hr Q12HR IV Last administered on 01/16/17 20:58; Start 01/16/17 at 12:00; Stop 01/17/17 at 08:14; Status DC Iohexol (Omnipaque 240 Mg/ml) 30 ml 1X ONCE PO ; Start 01/16/17 at 12:00; Stop 01/16/17 at 12:01; Status DC Info (Do NOT chart on this entry -- for MONITORING) 1 each PRN DAILY PRN MC SEE COMMENTS; Start 01/16/17 at 12:00; Stop 01/18/17 at 11:59; Status DC Magnesium Sulfate/ Dextrose 50 ml @ 25 mls/hr PRN DAILY PRN IV for Mag < 1.7 on am labs; Start 01/16/17 at 13:15 Metoprolol Succinate (Toprol Xl) 50 mg BID PO Last administered on 01/20/17 08 :43; Start 01/16/17 at 21:00 Sodium Chloride 1,000 ml @ 100 mls/hr Q10H IV Last administered on 01/18/17 05:45; Start 01/16/17 at 13:45; Stop 01/18/17 at 11:44; Status DC Aspirin (Charmaine Aspirin) 325 mg DAILYWBKFT PO Last administered on 01/19/17 08: 35; Start 01/17/17 at 08:00; Stop 01/19/17 at 09:49; Status DC Atorvastatin Calcium (Lipitor) 40 mg QHS PO Last administered on 01/19/17 20: 59; Start 01/16/17 at 21:00 Vitamin D (Vitamin D3) 2,000 unit DAILY PO Last administered on 01/20/17 08:42 ; Start 01/17/17 at 09:00 Clonidine HCl (Catapres) 0.1 mg BID PO Last administered on 01/19/17 08:35; Start 01/16/17 at 21:00; Stop 01/19/17 at 09:52; Status DC Folic Acid (Folic Acid) 1 mg DAILY PO Last administered on 01/20/17 08:43; Start 01/17/17 at 09:00 Loperamide HCl (Imodium) 2 mg Q2H PRN PO diarrhea; Start 01/16/17 at 16:45 Metoprolol Succinate (Toprol Xl) 100 mg BID PO ; Start 01/16/17 at 21:00; Status UNV Gabapentin (Neurontin) 600 mg TID PO Last administered on 01/20/17 13:47; Start 01/16/17 at 21:00 Pantoprazole Sodium (Protonix) 40 mg DAILYAC PO Last administered on 01/20/17 08:42; Start 01/17/17 at 07:30 Insulin Aspart (NovoLOG) 0-9 UNITS TIDWMEALS SQ Last administered on 01/20/17 08:50; Start 01/16/17 at 17:00 Dextrose (Dextrose 50%-Water Syringe) 12.5 gm PRN Q15MIN PRN IV SEE COMMENTS; Start 01/16/17 at 16:45 Dexamethasone Sodium Phosphate (Decadron) 10 mg 1X ONCE IV Last administered on 01/16/17 17:05; Start 01/16/17 at 16:45; Stop 01/16/17 at 16:46; Status DC Dexamethasone Sodium Phosphate (Decadron) 4 mg Q6HRS IV Last administered on 05:58; Start 01/17/17 at 00:00; Stop 01/18/17 at 15:31; Status DC Morphine Sulfate 2 mg PRN Q2HR PRN IV PAIN Last administered on 01/20/17 07:31 ; Start 01/16/17 at 16:45 Oxycodone/ Acetaminophen (Percocet 10/325) 1 tab PRN Q4HRS PRN PO pain Last administered on 01/20/17 13:52; Start 01/16/17 at 16:45 Heparin Sodium (Porcine) (Heparin Sq) 5,000 unit Q8HRS SQ Last administered on 01/20/17 13:52; Start 01/16/17 at 22:00 Diazepam (Valium) 5 mg PRN Q6HRS PRN IV SEIZURES; Start 01/16/17 at 18:30; Status Cancel Diazepam (Valium) 5 mg PRN Q6HRS PRN PO TREMORS Last administered on 01/20/17 07:32; Start 01/16/17 at 18:45 Fentanyl Citrate (Fentanyl 2ml Vial) 100 mcg STK-MED ONCE .ROUTE ; Start at 10:08; Stop 01/17/17 at 10:09; Status DC Midazolam HCl (Versed) 2 mg STK-MED ONCE .ROUTE ; Start 01/17/17 at 10:08; Stop 01/17/17 at 10:09; Status DC Lidocaine/Sodium Bicarbonate (Buffered Lidocaine 1%) 20 ml 1X ONCE IJ Last administered on 01/17/17 10:51; Start 01/17/17 at 10:15; Stop 01/17/17 at 10:16 ; Status DC Midazolam HCl (Versed) 2 mg 1X ONCE IV Last administered on 01/17/17 10:52; Start 01/17/17 at 10:15; Stop 01/17/17 at 10:16; Status DC Fentanyl Citrate (Fentanyl 2ml Vial) 100 mcg 1X ONCE IV Last administered on 01/17/17 10:52; Start 01/17/17 at 10:15; Stop 01/17/17 at 10:16; Status DC Lidocaine/Sodium Bicarbonate (Buffered Lidocaine 1%) 20 ml STK-MED ONCE IJ ; Start 01/17/17 at 10:14; Stop 01/17/17 at 10:15; Status DC Piperacillin Sod/ Tazobactam Sod (Zosyn) 3.375 gm Q6HRS IVP Last administered on 01/18/17 06:00; Start 01/17/17 at 18:00; Stop 01/18/17 at 10:42; Status DC Dexamethasone Sodium Phosphate (Decadron) 4 mg Q12HR IV Last administered on 07:32; Start 01/18/17 at 21:00 Aspirin (Ecotrin) 81 mg DAILYWBKFT PO Last administered on 01/20/17 08:42; Start 01/20/17 at 08:00 Amlodipine Besylate (Norvasc) 10 mg DAILY PO Last administered on 01/20/17 08: 42; Start 01/19/17 at 10:00 Oxycodone HCl (OxyCONTIN) 30 mg Q12HR PO Last administered on 01/20/17 07:38; Start 01/19/17 at 11:45 Senna/Docusate Sodium (Senna Plus) 2 tab DAILY PO Last administered on 08:43; Start 01/19/17 at 12:00 Gadobutrol (Gadavist) 10 mmol 1X ONCE IV ; Start 01/19/17 at 15:45; Stop at 15:46; Status DC Sodium Chloride 1,000 ml @ 75 mls/hr [id number] IV Last administered on 12:30; Start 01/20/17 at 11:15 Polyethylene Glycol (miraLAX PACKET) 17 gm DAILY PO ; Start 01/20/17 at 15:00 Active Scripts Active Reported Imodium A-D (Loperamide HCl) 2 Mg Capsule 2 Mg PO Aspirin 325 Mg Tablet 1 Tab PO DAILY Vitamin D3 (Cholecalciferol (Vitamin D3)) 1,000 Unit Tablet 2,000 Unit PO Vicodin Es 7.5-300 Mg Tablet (Hydrocodone Bit/Acetaminophen) 1 Each Tablet 1 Each PO Q6H PRN Humira (Adalimumab) 40 Mg/0.8 Ml Pen.ij.kit 1 Syr SQ Q2WKS Folbic Rf Tablet (B12/Levomefolate Calcium/B-6) 1 Each Tablet 1 Each PO Omeprazole 40 Mg Capsule.dr 1 Cap PO DAILY Cholestyramine Packet (Cholestyramine (With Sugar)) 4 Gm Powd.pack 4 Gm PO Gabapentin 600 Mg Tablet 600 Mg PO TID Folic Acid 1 Mg Tablet 1 Tab PO DAILY Clonidine Hcl 0.1 Mg Tablet 0.1 Mg PO BID Metformin Hcl 1,000 Mg Tablet 1,000 Mg PO BIDWMEALS Atorvastatin Calcium 40 Mg Tablet 1 Tab PO DAILY Metoprolol Succinate ( Xl ) (Metoprolol Succinate) 100 Mg Tab.er.24h 100 Mg PO BID Vitals/I & O Vital Sign - Last 24 Hours 01/19/17 01/19/17 01/19/17 01/19/17 17:00 17:00 18:15 19:20 Temp 97.8 98.0 97.8 98.0 Pulse 75 93 Resp 18 18 B/P (MAP) 135/61 167/65 Pulse Ox 98 O2 Delivery Nasal Cannula O2 Flow Rate 2.0 2.0 01/19/17 01/19/17 01/19/17 01/19/17 19:36 19:55 20:25 21:00 Temp 98.1 98.1 Pulse 70 70 Resp 16 20 B/P (MAP) 118/57 (77) 118/54 Pulse Ox 98 O2 Delivery Nasal Cannula Nasal Cannula O2 Flow Rate 2.0 2.0 2.0 01/19/17 01/19/17 01/20/17 01/20/17 21:00 22:37 00:47 00:47 Temp 98.1 98.1 Pulse 57 Resp 20 16 20 20 B/P (MAP) 130/67 (88) Pulse Ox 97 O2 Delivery Nasal Cannula BiPAP/CPAP BiPAP/CPAP BiPAP/CPAP O2 Flow Rate 2.0 2.0 01/20/17 01/20/17 01/20/17/4/17 01:00 01:17 01:47 03:20 Temp 98.1 98.1 Pulse 72 Resp 20 20 20 16 B/P (MAP) 140/70 (93) Pulse Ox 94 O2 Delivery BiPAP/CPAP BiPAP/CPAP BiPAP/CPAP Nasal Cannula O2 Flow Rate 2.0 01/20/17 01/20/17 01/20/17 01/20/17 06:09 07:15 07:31 07:38 Temp 97.8 97.8 Pulse 68 Resp 20 20 22 B/P (MAP) 152/65 (94) Pulse Ox 92 94 94 O2 Delivery Room Air Nasal Cannula Nasal Cannula Nasal Cannula O2 Flow Rate 2.0 2.0 01/20/17 01/20/17 01/20/17 01/20/17 08:00 08:42 08:43 09:02 Pulse 70 60 Pulse Ox 98 O2 Delivery Nasal Cannula Nasal Cannula O2 Flow Rate 2.0 2.0 01/20/17 01/20/17 10:40 15:05 Temp 97.8 97.4 97.8 97.4 Pulse 86 53 Resp 22 18 B/P (MAP) 155/74 (101) 140/67 (91) Pulse Ox 94 100 O2 Delivery Nasal Cannula Nasal Cannula O2 Flow Rate 2.0 2.0 Intake and Output 01/20/17 01/20/17 01/21/17 15:00 23:00 07:00 Output Total 200 ml Balance -200 ml JOY ANDERSON MD Jan 20, 2017 16:46
[2017-01-20] MEDS: POLYETHYLENE GLYCOL 3350 17 GM PACKET. PO SCH (17:32)
[2017-01-20 19:20] VITALS: BP 118/58
--- NOTE | 2017-01-20 20:25 | PDOC ---
PROGRESS NOTES Subjective Subjective seen at 1345 back pain able to void Objective Objective Vital Signs Date Time Temp Pulse Resp B/P (MAP) Pulse Ox O2 Delivery O2 Flow Rate FiO2 01/20/17 19:20 98.1 60 16 118/58 (78) 97 Room Air 2.0 98.1 Intake and Output 01/21/17 07:00 Intake Total 850 ml Output Total 800 ml Balance 50 ml Intake Oral 850 ml Output Urine Total 800 ml Physical Exam General: Oriented X3, Cooperative Neuro: Other (strength 5/5 in BLE) Assessment Assessment Problems Medical Problems: (1) Elevated d-dimer Status: Acute (2) Elevated serum creatinine Status: Acute (3) Hypoxia Status: Acute (4) Lactic acidosis Status: Acute (5) 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 Labs Laboratory Tests Test 01/18/17 21:13 01/19/17 05:13 01/19/17 07:42 01/19/17 11:21 Glucose (Fingerstick) 130 mg/dL (70-99) 132 mg/dL (70-99) 120 mg/dL (70-99) White Blood Count 6.5 x10^3/uL (4.0-11.0) Red Blood Count 2.07 x10^6/uL (4.30-5.70) Hemoglobin 6.9 g/dL (13.0-17.5) Hematocrit 20.8 % (39.0-53.0) Mean Corpuscular Volume 100 fL (79-100) Mean Corpuscular Hemoglobin 33 pg (25-35) Mean Corpuscular Hemoglobin Concent 33 g/dL (31-37) Red Cell Distribution Width 15.6 % (11.5-14.5) Platelet Count 111 x10^3/uL (140-400) Neutrophils (%) (Auto) 84 % (31-73) Lymphocytes (%) (Auto) 8 % (24-48) Monocytes (%) (Auto) 8 % (0-9) Eosinophils (%) (Auto) 0 % (0-3) Basophils (%) (Auto) 0 % (0-3) Neutrophils # (Auto) 1.8 x10^3uL (1.8-7.7) Lymphocytes # (Auto) 0.2 x10^3/uL (1.0-4.8) Monocytes # (Auto) 4.6 x10^3/uL (0.0-1.1) Eosinophils # (Auto) 0.0 x10^3/uL (0.0-0.7) Basophils # (Auto) 0.0 x10^3/uL (0.0-0.2) Sodium Level 139 mmol/L (136-145) Potassium Level 4.3 mmol/L (3.5-5.1) Chloride Level 106 mmol/L (98-107) Carbon Dioxide Level 26 mmol/L (21-32) Anion Gap 7 (6-14) Blood Urea Nitrogen 29 mg/dL (8-26) Creatinine 1.5 mg/dL (0.7-1.3) Estimated GFR (Cockcroft-Gault) 46.1 Glucose Level 137 mg/dL (70-99) Calcium Level 7.7 mg/dL (8.5-10.1) Phosphorus Level 2.9 mg/dL (2.6-4.7) Magnesium Level 2.1 mg/dL (1.8-2.4) Albumin 2.8 g/dL (3.4-5.0) Test 01/19/17 16:24 01/19/17 20:24 01/20/17 06:15 01/20/17 07:20 Glucose (Fingerstick) 124 mg/dL (70-99) 126 mg/dL (70-99) 255 mg/dL (70-99) White Blood Count 7.1 x10^3/uL (4.0-11.0) Red Blood Count 2.42 x10^6/uL (4.30-5.70) Hemoglobin 8.0 g/dL (13.0-17.5) Hematocrit 23.5 % (39.0-53.0) Mean Corpuscular Volume 97 fL (79-100) Mean Corpuscular Hemoglobin 33 pg (25-35) Mean Corpuscular Hemoglobin Concent 34 g/dL (31-37) Red Cell Distribution Width 18.8 % (11.5-14.5) Platelet Count 125 x10^3/uL (140-400) Neutrophils (%) (Auto) 82 % (31-73) Lymphocytes (%) (Auto) 9 % (24-48) Monocytes (%) (Auto) 9 % (0-9) Eosinophils (%) (Auto) 0 % (0-3) Basophils (%) (Auto) 0 % (0-3) Neutrophils # (Auto) 5.8 x10^3uL (1.8-7.7) Lymphocytes # (Auto) 0.6 x10^3/uL (1.0-4.8) Monocytes # (Auto) 0.6 x10^3/uL (0.0-1.1) Eosinophils # (Auto) 0.0 x10^3/uL (0.0-0.7) Basophils # (Auto) 0.0 x10^3/uL (0.0-0.2) Sodium Level 140 mmol/L (136-145) Potassium Level 4.2 mmol/L (3.5-5.1) Chloride Level 106 mmol/L (98-107) Carbon Dioxide Level 28 mmol/L (21-32) Anion Gap 6 (6-14) Blood Urea Nitrogen 31 mg/dL (8-26) Creatinine 1.4 mg/dL (0.7-1.3) Estimated GFR (Cockcroft-Gault) 50.0 Glucose Level 138 mg/dL (70-99) Calcium Level 7.9 mg/dL (8.5-10.1) Phosphorus Level 2.9 mg/dL (2.6-4.7) Magnesium Level 2.2 mg/dL (1.8-2.4) Albumin 2.9 g/dL (3.4-5.0) Test 01/20/17 11:35 01/20/17 16:40 Glucose (Fingerstick) 121 mg/dL (70-99) 125 mg/dL (70-99) Laboratory Tests Test 01/19/17 20:24 01/20/17 06:15 01/20/17 07:20 01/20/17 11:35 Glucose (Fingerstick) 126 mg/dL (70-99) 255 mg/dL (70-99) 121 mg/dL (70-99) White Blood Count 7.1 x10^3/uL (4.0-11.0) Red Blood Count 2.42 x10^6/uL (4.30-5.70) Hemoglobin 8.0 g/dL (13.0-17.5) Hematocrit 23.5 % (39.0-53.0) Mean Corpuscular Volume 97 fL (79-100) Mean Corpuscular Hemoglobin 33 pg (25-35) Mean Corpuscular Hemoglobin Concent 34 g/dL (31-37) Red Cell Distribution Width 18.8 % (11.5-14.5) Platelet Count 125 x10^3/uL (140-400) Neutrophils (%) (Auto) 82 % (31-73) Lymphocytes (%) (Auto) 9 % (24-48) Monocytes (%) (Auto) 9 % (0-9) Eosinophils (%) (Auto) 0 % (0-3) Basophils (%) (Auto) 0 % (0-3) Neutrophils # (Auto) 5.8 x10^3uL (1.8-7.7) Lymphocytes # (Auto) 0.6 x10^3/uL (1.0-4.8) Monocytes # (Auto) 0.6 x10^3/uL (0.0-1.1) Eosinophils # (Auto) 0.0 x10^3/uL (0.0-0.7) Basophils # (Auto) 0.0 x10^3/uL (0.0-0.2) Sodium Level 140 mmol/L (136-145) Potassium Level 4.2 mmol/L (3.5-5.1) Chloride Level 106 mmol/L (98-107) Carbon Dioxide Level 28 mmol/L (21-32) Anion Gap 6 (6-14) Blood Urea Nitrogen 31 mg/dL (8-26) Creatinine 1.4 mg/dL (0.7-1.3) Estimated GFR (Cockcroft-Gault) 50.0 Glucose Level 138 mg/dL (70-99) Calcium Level 7.9 mg/dL (8.5-10.1) Phosphorus Level 2.9 mg/dL (2.6-4.7) Magnesium Level 2.2 mg/dL (1.8-2.4) Albumin 2.9 g/dL (3.4-5.0) Test 01/20/17 16:40 Glucose (Fingerstick) 125 mg/dL (70-99) Microbiology 01/15/17 Blood Culture - Preliminary, Resulted NO GROWTH AFTER 4 DAYS Medications Current Medications Fentanyl Citrate (Fentanyl 2ml Vial) 50 mcg 1X ONCE IV Last administered on 21:52; Start 01/15/17 at 22:00; Stop 01/15/17 at 22:01; Status DC Sodium Chloride 1,000 ml @ 150 mls/hr 1X ONCE IV Last administered on 22:31; Start 01/15/17 at 22:00; Stop 01/16/17 at 04:39; Status DC Piperacillin Sod/ Tazobactam Sod 3.375 gm/Dextrose 50 ml @ 100 mls/hr 1X ONCE IV Last administered on 01/15/17 23:22; Start 01/15/17 at 23:30; Stop 01/15 at 23:59; Status DC Heparin Sodium (Porcine) (Heparin Sodium) 9,450 unit 1X ONCE IV Last administered on 01/15/17 23:30; Start 01/15/17 at 23:30; Stop 01/16/17 at 16 :41; Status DC Heparin Sodium/ Dextrose 500 ml @ 0 mls/hr CONT PRN IV SEE I/O RECORD Last administered on 01/16/17 16:26; Start 01/15/17 at 23:15; Stop 01/16/17 at 16 :41; Status DC Heparin Sodium (Porcine) (Heparin Sodium) 3,550 unit PRN Q6HRS PRN IV FOR UFH LEVEL LESS THAN 0.2; Start 01/15/17 at 23:15; Stop 01/16/17 at 16:41; Status DC Heparin Sodium (Porcine) (Heparin Sodium) 1,750 unit PRN Q6HRS PRN IV FOR UFH LEVEL 0.2 - 0.29; Start 01/15/17 at 23:15; Stop 01/16/17 at 16:41; Status DC Warfarin Sodium (Coumadin Per Pharmacy) 1 each PRN DAILY PRN MC PER PROTOCOL Last administered on 01/16/17 10:20; Start 01/15/17 at 23:15; Stop 01/16/17 at 16:39; Status DC Info (Anti-Coagulation Monitoring By Pharmacy) 1 each PRN DAILY PRN MC SEE COMMENTS Last administered on 01/16/17 10:17; Start 01/15/17 at 23:30; Stop 01/18/17 at 14:31; Status DC Ondansetron HCl (Zofran) 4 mg PRN Q8HRS PRN IV NAUSEA/VOMITING; Start at 23:15; Stop 01/16/17 at 23:14; Status DC Fentanyl Citrate (Fentanyl 2ml Vial) 50 mcg PRN Q2HR PRN IV SEVERE PAIN Last administered on 01/16/17 01:33; Start 01/15/17 at 23:15; Stop 01/16/17 at 02 :47; Status DC Piperacillin Sod/ Tazobactam Sod (Zosyn Per Pharmacy) 1 each PRN DAILY PRN MC SEE COMMENTS; Start 01/15/17 at 23:15; Stop 01/16/17 at 02:54; Status DC Sodium Chloride 1,000 ml @ 150 mls/hr 1X ONCE IV Last administered on 01:34; Start 01/15/17 at 23:45; Stop 01/16/17 at 06:24; Status DC Albuterol Sulfate (Ventolin Neb Soln) 2.5 mg PRN Q3HRS PRN NEB WHEEZING Last administered on 01/16/17 11:24; Start 01/15/17 at 23:30 Morphine Sulfate 2 mg 1X ONCE IV Last administered on 01/15/17 23:47; Start 01/16/17 at 00:00; Stop 01/16/17 at 00:01; Status DC Fentanyl Citrate (Fentanyl 2ml Vial) 75 mcg PRN Q2HR PRN IV SEVERE PAIN Last administered on 01/16/17 13:56; Start 01/16/17 at 02:45; Stop 01/16/17 at 16 :41; Status DC Piperacillin Sod/ Tazobactam Sod (Zosyn Per Pharmacy) 1 each PRN DAILY PRN MC SEE COMMENTS; Start 01/16/17 at 02:45; Stop 01/17/17 at 16:01; Status DC Piperacillin Sod/ Tazobactam Sod (Zosyn) 2.25 gm Q6HRS IVP Last administered on 01/17/17 12:01; Start 01/16/17 at 06:00; Stop 01/17/17 at 16:01; Status DC Info (Anti-Coagulation Monitoring By Pharmacy) 1 each PRN DAILY PRN MC SEE COMMENTS; Start 01/16/17 at 09:45; Status Cancel Warfarin Sodium (Coumadin) 5 mg 1X WARF ONCE PO ; Start 01/16/17 at 16:00; Stop 01/16/17 at 16:39; Status DC Lactobacillus Rhamnosus (Culturelle) 1 cap BID PO Last administered on 08:43; Start 01/16/17 at 21:00 Magnesium Sulfate/ Dextrose 50 ml @ 25 mls/hr 1X ONCE IV Last administered on 01/16/17 12:45; Start 01/16/17 at 11:30; Stop 01/16/17 at 13:29; Status DC Linezolid 300 ml @ 300 mls/hr Q12HR IV Last administered on 01/16/17 20:58; Start 01/16/17 at 12:00; Stop 01/17/17 at 08:14; Status DC Iohexol (Omnipaque 240 Mg/ml) 30 ml 1X ONCE PO ; Start 01/16/17 at 12:00; Stop 01/16/17 at 12:01; Status DC Info (Do NOT chart on this entry -- for MONITORING) 1 each PRN DAILY PRN MC SEE COMMENTS; Start 01/16/17 at 12:00; Stop 01/18/17 at 11:59; Status DC Magnesium Sulfate/ Dextrose 50 ml @ 25 mls/hr PRN DAILY PRN IV for Mag < 1.7 on am labs; Start 01/16/17 at 13:15 Metoprolol Succinate (Toprol Xl) 50 mg BID PO Last administered on 01/20/17 08 :43; Start 01/16/17 at 21:00 Sodium Chloride 1,000 ml @ 100 mls/hr Q10H IV Last administered on 01/18/17 05:45; Start 01/16/17 at 13:45; Stop 01/18/17 at 11:44; Status DC Aspirin (Charmaine Aspirin) 325 mg DAILYWBKFT PO Last administered on 01/19/17 08: 35; Start 01/17/17 at 08:00; Stop 01/19/17 at 09:49; Status DC Atorvastatin Calcium (Lipitor) 40 mg QHS PO Last administered on 01/19/17 20: 59; Start 01/16/17 at 21:00 Vitamin D (Vitamin D3) 2,000 unit DAILY PO Last administered on 01/20/17 08:42 ; Start 01/17/17 at 09:00 Clonidine HCl (Catapres) 0.1 mg BID PO Last administered on 01/19/17 08:35; Start 01/16/17 at 21:00; Stop 01/19/17 at 09:52; Status DC Folic Acid (Folic Acid) 1 mg DAILY PO Last administered on 01/20/17 08:43; Start 01/17/17 at 09:00 Loperamide HCl (Imodium) 2 mg Q2H PRN PO diarrhea; Start 01/16/17 at 16:45 Metoprolol Succinate (Toprol Xl) 100 mg BID PO ; Start 01/16/17 at 21:00; Status UNV Gabapentin (Neurontin) 600 mg TID PO Last administered on 01/20/17 13:47; Start 01/16/17 at 21:00 Pantoprazole Sodium (Protonix) 40 mg DAILYAC PO Last administered on 01/20/17 08:42; Start 01/17/17 at 07:30 Insulin Aspart (NovoLOG) 0-9 UNITS TIDWMEALS SQ Last administered on 01/20/17 08:50; Start 01/16/17 at 17:00 Dextrose (Dextrose 50%-Water Syringe) 12.5 gm PRN Q15MIN PRN IV SEE COMMENTS; Start 01/16/17 at 16:45 Dexamethasone Sodium Phosphate (Decadron) 10 mg 1X ONCE IV Last administered on 01/16/17 17:05; Start 01/16/17 at 16:45; Stop 01/16/17 at 16:46; Status DC Dexamethasone Sodium Phosphate (Decadron) 4 mg Q6HRS IV Last administered on 05:58; Start 01/17/17 at 00:00; Stop 01/18/17 at 15:31; Status DC Morphine Sulfate 2 mg PRN Q2HR PRN IV PAIN Last administered on 01/20/17 07:31 ; Start 01/16/17 at 16:45 Oxycodone/ Acetaminophen (Percocet 10/325) 1 tab PRN Q4HRS PRN PO pain Last administered on 01/20/17 17:41; Start 01/16/17 at 16:45 Heparin Sodium (Porcine) (Heparin Sq) 5,000 unit Q8HRS SQ Last administered on 01/20/17 13:52; Start 01/16/17 at 22:00 Diazepam (Valium) 5 mg PRN Q6HRS PRN IV SEIZURES; Start 01/16/17 at 18:30; Status Cancel Diazepam (Valium) 5 mg PRN Q6HRS PRN PO TREMORS Last administered on 01/20/17 07:32; Start 01/16/17 at 18:45 Fentanyl Citrate (Fentanyl 2ml Vial) 100 mcg STK-MED ONCE .ROUTE ; Start at 10:08; Stop 01/17/17 at 10:09; Status DC Midazolam HCl (Versed) 2 mg STK-MED ONCE .ROUTE ; Start 01/17/17 at 10:08; Stop 01/17/17 at 10:09; Status DC Lidocaine/Sodium Bicarbonate (Buffered Lidocaine 1%) 20 ml 1X ONCE IJ Last administered on 01/17/17 10:51; Start 01/17/17 at 10:15; Stop 01/17/17 at 10:16 ; Status DC Midazolam HCl (Versed) 2 mg 1X ONCE IV Last administered on 01/17/17 10:52; Start 01/17/17 at 10:15; Stop 01/17/17 at 10:16; Status DC Fentanyl Citrate (Fentanyl 2ml Vial) 100 mcg 1X ONCE IV Last administered on 01/17/17 10:52; Start 01/17/17 at 10:15; Stop 01/17/17 at 10:16; Status DC Lidocaine/Sodium Bicarbonate (Buffered Lidocaine 1%) 20 ml STK-MED ONCE IJ ; Start 01/17/17 at 10:14; Stop 01/17/17 at 10:15; Status DC Piperacillin Sod/ Tazobactam Sod (Zosyn) 3.375 gm Q6HRS IVP Last administered on 01/18/17 06:00; Start 01/17/17 at 18:00; Stop 01/18/17 at 10:42; Status DC Dexamethasone Sodium Phosphate (Decadron) 4 mg Q12HR IV Last administered on 07:32; Start 01/18/17 at 21:00 Aspirin (Ecotrin) 81 mg DAILYWBKFT PO Last administered on 01/20/17 08:42; Start 01/20/17 at 08:00 Amlodipine Besylate (Norvasc) 10 mg DAILY PO Last administered on 01/20/17 08: 42; Start 01/19/17 at 10:00 Oxycodone HCl (OxyCONTIN) 30 mg Q12HR PO Last administered on 01/20/17 07:38; Start 01/19/17 at 11:45 Senna/Docusate Sodium (Senna Plus) 2 tab DAILY PO Last administered on 08:43; Start 01/19/17 at 12:00 Gadobutrol (Gadavist) 10 mmol 1X ONCE IV ; Start 01/19/17 at 15:45; Stop at 15:46; Status DC Sodium Chloride 1,000 ml @ 75 mls/hr [id number] IV Last administered on 12:30; Start 01/20/17 at 11:15 Polyethylene Glycol (miraLAX PACKET) 17 gm DAILY PO Last administered on 17:32; Start 01/20/17 at 15:00 Active Scripts Active Reported Imodium A-D (Loperamide HCl) 2 Mg Capsule 2 Mg PO Aspirin 325 Mg Tablet 1 Tab PO DAILY Vitamin D3 (Cholecalciferol (Vitamin D3)) 1,000 Unit Tablet 2,000 Unit PO Vicodin Es 7.5-300 Mg Tablet (Hydrocodone Bit/Acetaminophen) 1 Each Tablet 1 Each PO Q6H PRN Humira (Adalimumab) 40 Mg/0.8 Ml Pen.ij.kit 1 Syr SQ Q2WKS Folbic Rf Tablet (B12/Levomefolate Calcium/B-6) 1 Each Tablet 1 Each PO Omeprazole 40 Mg Capsule.dr 1 Cap PO DAILY Cholestyramine Packet (Cholestyramine (With Sugar)) 4 Gm Powd.pack 4 Gm PO Gabapentin 600 Mg Tablet 600 Mg PO TID Folic Acid 1 Mg Tablet 1 Tab PO DAILY Clonidine Hcl 0.1 Mg Tablet 0.1 Mg PO BID Metformin Hcl 1,000 Mg Tablet 1,000 Mg PO BIDWMEALS Atorvastatin Calcium 40 Mg Tablet 1 Tab PO DAILY Metoprolol Succinate ( Xl ) (Metoprolol Succinate) 100 Mg Tab.er.24h 100 Mg PO BID Vitals/I & O Vital Sign - Last 24 Hours 01/19/17 01/19/17 01/19/17 01/19/17 20:25 21:00 21:00 22:37 Temp 98.1 98.1 Pulse 70 57 Resp 20 16 B/P (MAP) 118/54 130/67 (88) Pulse Ox 97 O2 Delivery Nasal Cannula BiPAP/CPAP O2 Flow Rate 2.0 2.0 2.0 01/20/17 01/20/17 01/20/17 01/20/17 00:47 00:47 01:00 01:17 Resp 20 20 20 20 O2 Delivery BiPAP/CPAP BiPAP/CPAP BiPAP/CPAP BiPAP/CPAP 01/20/17 01/20/17 01/20/17 01/20/17 01:47 03:20 06:09 07:15 Temp 98.1 97.8 98.1 97.8 Pulse 72 68 Resp 20 16 20 20 B/P (MAP) 140/70 (93) 152/65 (94) Pulse Ox 94 92 O2 Delivery BiPAP/CPAP Nasal Cannula Room Air Nasal Cannula O2 Flow Rate 2.0 2.0 01/20/17 01/20/17 01/20/17 01/20/17 07:31 07:38 08:00 08:42 Pulse 70 Resp 22 Pulse Ox 94 94 O2 Delivery Nasal Cannula Nasal Cannula Nasal Cannula O2 Flow Rate 2.0 2.0 01/20/17 01/20/17 01/20/17 01/20/17 08:43 09:02 10:40 15:05 Temp 97.8 97.4 97.8 97.4 Pulse 60 86 53 Resp 22 18 B/P (MAP) 155/74 (101) 140/67 (91) Pulse Ox 98 94 100 O2 Delivery Nasal Cannula Nasal Cannula Nasal Cannula O2 Flow Rate 2.0 2.0 2.0 01/20/17 19:20 Temp 98.1 98.1 Pulse 60 Resp 16 B/P (MAP) 118/58 (78) Pulse Ox 97 O2 Delivery Room Air O2 Flow Rate 2.0 Intake and Output 01/20/17 01/20/17 01/21/17 15:00 23:00 07:00 Intake Total 850 ml Output Total 200 ml 600 ml Balance -200 ml 250 ml NADINE ARCE MD Jan 20, 2017 20:25
[2017-01-20] MEDS: ATORVASTATIN CALCIUM 40 MG TABLET. PO SCH (21:07)
[2017-01-20 23:00] VITALS: BP 122/54
[2017-01-21 02:12] VITALS: BP 142/62
[2017-01-21] MEDS: IV NORMAL SALINE 1000ML BAG 1,000 ML IV SCH ×2 (02:12→13:55)
[2017-01-21] MEDS: oxyCODONE/APAP 10/325 1 TAB TABLET PO PRN ×3 (02:13→15:08)
[2017-01-21] MEDS: diazePAM 5 MG TABLET PO PRN (02:13)
[2017-01-21] MEDS: HEPARIN PF for SUB-Q USE 5,000 UNIT/0.5 ML VIAL. SQ SCH ×3 (06:26→21:01)
[2017-01-21 06:55] LABS: BASO % 0 % (0-3); EOS % 0 % (0-3); HEMATOCRIT 23.5 % (39.0-53.0); HEMOGLOBIN 7.9 g/dL (13.0-17.5); LYMPH # 0.8 x10^3/uL (1.0-4.8); LYMPH % 9 % (24-48); MEAN CORPUSCULAR HEMOGLOBIN 33 pg (25-35); MEAN CORPUSCULAR HGB CONC 33 g/dL (31-37); MEAN CORPUSCULAR VOLUME 97 fL (79-100); MONO % 12 % (0-9); NEUT % 79 % (31-73); PLATELET COUNT 126 x10^3/uL (140-400); RED BLOOD COUNT 2.42 x10^6/uL (4.30-5.70); WHITE BLOOD COUNT 8.3 x10^3/uL (4.0-11.0)
[2017-01-21 07:07] LABS: ALBUMIN 2.8 g/dL (3.4-5.0); CALCIUM 8.4 mg/dL (8.5-10.1); CREATININE 1.4 mg/dL (0.7-1.3); PHOSPHORUS 3.3 mg/dL (2.6-4.7); POTASSIUM 4.3 mmol/L (3.5-5.1)
[2017-01-21 07:40] VITALS: BP 147/59
[2017-01-21] MEDS: INSULIN ASPART 300 UNITS/3 ML INSULN.PEN SQ SCH ×3 (08:00→17:00)
[2017-01-21] MEDS: PANTOPRAZOLE 40 MG TABLET.DR. PO SCH (08:05)
[2017-01-21] MEDS: GABAPENTIN 300 MG CAPSULE. PO SCH ×3 (08:05→20:49)
[2017-01-21] MEDS: oxyCODONE ER 15 MG TAB.ER.12H PO SCH ×2 (08:05→20:50)
[2017-01-21] MEDS: LACTOBACILLUS RHAMNOSUS GG 1 CAPSULE. PO SCH ×2 (08:06→20:49)
[2017-01-21] MEDS: amLODIPine BESYLATE 10 MG TABLET PO SCH (08:06)
[2017-01-21] MEDS: POLYETHYLENE GLYCOL 3350 17 GM PACKET. PO SCH (08:06)
[2017-01-21] MEDS: CHOLECALCIFEROL (VITAMIN D3) 1,000 UNIT TABLET PO SCH (08:06)
[2017-01-21] MEDS: SENNOSIDES/DOCUSATE 8.6/50MG TABLET. PO SCH (08:06)
[2017-01-21] MEDS: FOLIC ACID 1 MG TABLET. PO SCH (08:07)
[2017-01-21] MEDS: ASPIRIN ENTERIC COATED 81 MG TABLET.DR. PO SCH (08:07)
[2017-01-21] MEDS: DEXAMETHASONE SOD PHOS 4 MG/ML VIAL IV SCH ×2 (08:07→20:50)
[2017-01-21] MEDS: METOPROLOL SUCC 24HR ER 50 MG TAB.ER.24H. PO SCH ×2 (08:11→09:00)
--- NOTE | 2017-01-21 08:48 | PDOC ---
CARDIOLOGY PROGRESS NOTE SUBJECTIVE: No new events. Denies any chest pain. Baseline stable dyspnea. Limited by back pain. OBJECTIVE: Vital SIgns: Vital Signs Date Time Temp Pulse Resp B/P (MAP) Pulse Ox O2 Delivery O2 Flow Rate FiO2 01/21/17 08:11 65 01/21/17 07:40 98.1 20 147/59 (88) 100 Nasal Cannula 2.0 98.1 Objective: Mild dyspnea. Decreased breath sounds lung bases Irr irr heart rhythm no murmur no le edema. CURRENT MEDICATIONS: Current Medications Medications (Trade) Dose Ordered Sig/Jose Start Time Stop Time Status Last Admin Dose Admin Albuterol Sulfate (Ventolin Neb Soln) 2.5 mg PRN Q3HRS PRN 01/15/17 23:30 01/16/17 11:24 2.5 MG Amlodipine Besylate (Norvasc) 10 mg DAILY 01/19/17 10:00 01/21/17 08:06 10 MG Aspirin (Charmaine Aspirin) 325 mg DAILYWBKFT 01/17/17 08:00 01/19/17 09:49 DC 01/19/17 08:35 325 MG Aspirin (Ecotrin) 81 mg DAILYWBKFT 01/20/17 08:00 01/21/17 08:07 81 MG Atorvastatin Calcium (Lipitor) 40 mg QHS 01/16/17 21:00 01/20/17 21:07 40 MG Clonidine HCl (Catapres) 0.1 mg BID 01/16/17 21:00 01/19/17 09:52 DC 01/19/17 08:35 0.1 MG Dexamethasone Sodium Phosphate (Decadron) 4 mg Q12HR 01/18/17 21:00 01/21/17 08:07 4 MG Dextrose (Dextrose 50%-Water Syringe) 12.5 gm PRN Q15MIN PRN 01/16/17 16:45 Diazepam (Valium) 5 mg PRN Q6HRS PRN 01/16/17 18:45 01/21/17 02:13 5 MG Fentanyl Citrate (Fentanyl 2ml Vial) 100 mcg 1X ONCE 01/17/17 10:15 01/17/17 10:16 DC 01/17/17 10:52 100 MCG Folic Acid (Folic Acid) 1 mg DAILY 01/17/17 09:00 01/21/17 08:07 1 MG Gabapentin (Neurontin) 600 mg TID 01/16/17 21:00 01/21/17 08:05 600 MG Gadobutrol (Gadavist) 10 mmol 1X ONCE 01/19/17 15:45 01/19/17 15:46 DC Heparin Sodium (Porcine) (Heparin Sodium) 1,750 unit PRN Q6HRS PRN 01/15/17 23:15 01/16/17 16:41 DC Heparin Sodium (Porcine) (Heparin Sq) 5,000 unit Q8HRS 01/16/17 22:00 01/21/17 06:26 5,000 UNIT Heparin Sodium/ Dextrose 500 ml @ 0 mls/hr CONT PRN 01/15/17 23:15 01/16/17 16:41 DC 01/16/17 16:26 30.4 MLS/HR Info (Anti-Coagulation Monitoring By Pharmacy) 1 each PRN DAILY PRN 01/16/17 09:45 Cancel Info (Do NOT chart on this entry -- for MONITORING) 1 each PRN DAILY PRN 01/16/17 12:00 01/18/17 11:59 DC Insulin Aspart (NovoLOG) 0-9 UNITS TIDWMEALS 01/16/17 17:00 01/20/17 08:50 7 UNITS Iohexol (Omnipaque 240 Mg/ml) 30 ml 1X ONCE 01/16/17 12:00 01/16/17 12:01 DC Lactobacillus Rhamnosus (Culturelle) 1 cap BID 01/16/17 21:00 01/21/17 08:06 1 CAP Lidocaine/Sodium Bicarbonate (Buffered Lidocaine 1%) 20 ml STK-MED ONCE 01/17/17 10:14 01/17/17 10:15 DC Linezolid 300 ml @ 300 mls/hr Q12HR 01/16/17 12:00 01/17/17 08:14 DC 01/16/17 20:58 300 MLS/HR Loperamide HCl (Imodium) 2 mg Q2H PRN 01/16/17 16:45 Magnesium Sulfate/ Dextrose 50 ml @ 25 mls/hr PRN DAILY PRN 01/16/17 13:15 Metoprolol Succinate (Toprol Xl) 100 mg BID 01/16/17 21:00 UNV Midazolam HCl (Versed) 2 mg 1X ONCE 01/17/17 10:15 01/17/17 10:16 DC 01/17/17 10:52 1 MG Morphine Sulfate 2 mg PRN Q2HR PRN 01/16/17 16:45 01/20/17 07:31 2 MG Ondansetron HCl (Zofran) 4 mg PRN Q8HRS PRN 01/15/17 23:15 01/16/17 23:14 DC Oxycodone HCl (OxyCONTIN) 30 mg Q12HR 01/19/17 11:45 01/21/17 08:05 30 MG Oxycodone/ Acetaminophen (Percocet 10) 1 tab PRN Q4HRS PRN 01/16/17 16:45 01/21/17 06:37 1 TAB Pantoprazole Sodium (Protonix) 40 mg DAILYAC 01/17/17 07:30 01/21/17 08:05 40 MG Piperacillin Sod/ Tazobactam Sod (Zosyn Per Pharmacy) 1 each PRN DAILY PRN 01/16/17 02:45 01/17/17 16:01 DC Piperacillin Sod/ Tazobactam Sod (Zosyn) 3.375 gm Q6HRS 01/17/17 18:00 01/18/17 10:42 DC 01/18/17 06:00 3.375 GM Piperacillin Sod/ Tazobactam Sod 3.375 gm/Dextrose 50 ml @ 100 mls/hr 1X ONCE 01/15/17 23:30 01/15/17 23:59 DC 01/15/17 23:22 100 MLS/HR Polyethylene Glycol (miraLAX PACKET) 17 gm DAILY 01/20/17 15:00 01/21/17 08:06 17 GM Senna/Docusate Sodium (Senna Plus) 2 tab DAILY 01/19/17 12:00 01/21/17 08:06 2 TAB Sodium Chloride 1,000 ml @ 75 mls/hr [id number] 01/20/17 11:15 01/21/17 02:12 75 MLS/HR Vitamin D (Vitamin D3) 2,000 unit DAILY 01/17/17 09:00 01/21/17 08:06 2,000 UNIT Warfarin Sodium (Coumadin Per Pharmacy) 1 each PRN DAILY PRN 01/15/17 23:15 01/16/17 16:39 DC 01/16/17 10:20 1 EACH Warfarin Sodium (Coumadin) 5 mg 1X WARF ONCE 01/16/17 16:00 01/16/17 16:39 DC ASSESSMENT: 1. New onset atrial fibrillation 2. CAD - no angina 3. HTN 4. Acute on chronic diastolic HF - Compensated at this time 5. ANDRENIA - improving. 6. Anemia - improved 7. Dyslipidemia 8. Obesity 9. ALESIA 10. Presumed COPD - home O2 dependent. Problems: PLAN: 1. Decrease Toprol to 50mg Xl daily 2. Stop IVF as Cr improved and patient appears mildly dyspneic 3. Would be deemed moderate risk for surgical intervention from CV perspective. 4. Echo with normal LVEF. 5. Depending on rhythm after surgery, can consider fdc anticoagulation when cleared by neurosurgery, otherwise, f/u on an outpt basis to note afib burden. Supportive care. Will follow along. CARLINE EARL MD Jan 21, 2017 08:48
[2017-01-21 10:45] VITALS: BP 143/74
--- NOTE | 2017-01-21 11:52 | PDOC ---
Renal-Progress Notes Subjective Notes Notes NONE History of Present Illness Hx of present illness STABLE Vitals Vitals Vital Signs Date Time Temp Pulse Resp B/P (MAP) Pulse Ox O2 Delivery O2 Flow Rate FiO2 01/21/17 10:45 98.0 66 20 143/74 (97) 98 Nasal Cannula 2.0 98.0 Weight Weight [ ] Labs Labs Laboratory Tests Test 01/20/17 16:40 01/20/17 20:48 01/21/17 06:15 01/21/17 07:42 Glucose (Fingerstick) 125 mg/dL (70-99) 112 mg/dL (70-99) 115 mg/dL (70-99) White Blood Count 8.3 x10^3/uL (4.0-11.0) Red Blood Count 2.42 x10^6/uL (4.30-5.70) Hemoglobin 7.9 g/dL (13.0-17.5) Hematocrit 23.5 % (39.0-53.0) Mean Corpuscular Volume 97 fL (79-100) Mean Corpuscular Hemoglobin 33 pg (25-35) Mean Corpuscular Hemoglobin Concent 33 g/dL (31-37) Red Cell Distribution Width 18.0 % (11.5-14.5) Platelet Count 126 x10^3/uL (140-400) Neutrophils (%) (Auto) 79 % (31-73) Lymphocytes (%) (Auto) 9 % (24-48) Monocytes (%) (Auto) 12 % (0-9) Eosinophils (%) (Auto) 0 % (0-3) Basophils (%) (Auto) 0 % (0-3) Neutrophils # (Auto) 6.5 x10^3uL (1.8-7.7) Lymphocytes # (Auto) 0.8 x10^3/uL (1.0-4.8) Monocytes # (Auto) 1.0 x10^3/uL (0.0-1.1) Eosinophils # (Auto) 0.0 x10^3/uL (0.0-0.7) Basophils # (Auto) 0.0 x10^3/uL (0.0-0.2) Sodium Level 140 mmol/L (136-145) Potassium Level 4.3 mmol/L (3.5-5.1) Chloride Level 105 mmol/L (98-107) Carbon Dioxide Level 26 mmol/L (21-32) Anion Gap 9 (6-14) Blood Urea Nitrogen 29 mg/dL (8-26) Creatinine 1.4 mg/dL (0.7-1.3) Estimated GFR (Cockcroft-Gault) 50.0 Glucose Level 126 mg/dL (70-99) Calcium Level 8.4 mg/dL (8.5-10.1) Phosphorus Level 3.3 mg/dL (2.6-4.7) Magnesium Level 1.9 mg/dL (1.8-2.4) Albumin 2.8 g/dL (3.4-5.0) Test 01/21/17 11:31 Glucose (Fingerstick) 122 mg/dL (70-99) Micro Micro Microbiology 01/15/17 Blood Culture - Final, Complete NO GROWTH AFTER 5 DAYS Review of Systems Constitutional: yes: weakness, alert Ears/Nose/Throat: Yes: no symptom reported Eyes: Yes: no symptom reported Pulmonary: Yes no symptom reported Cardiovascular: Yes no symptom reported Gastrointestional: Yes: no symptom reported Skin: Yes no symptom reported Psychiatric/Neurological: Yes: no symptom reported Endocrine: Yes: no symptom reported Hematologic/Lymphatic: Yes: no symptom reported Physical Exam General Appearance: no apparent distress Skin: warm Respiratory: bilateral CTA Heart: S1S2, RRR Abdomen: soft Neurology: alert, oriented, follow commands Musculoskeletal: Osteoarthritis Assessment Assessment IMP ANDREINA-IMPROVED CR 2.4 TO 1.4 DEHYDRATION ANEMIA HX CROHN'S LUMBAR LESION PLAN STOP IVF'S OR TOMORROW LABS IN AM MET WORK UP ROME FERNANDEZ MD Jan 21, 2017 11:52
--- NOTE | 2017-01-21 14:46 | PDOC ---
PROGRESS NOTES Chief Complaint Chief Complaint Syncope and collapse 1. L3 spinal mass: highly suspicious for malignancy. 2. Back pain: partly trauma, partly new-found mass at L3. treat symptomatically. 3. Syncope: ruled out for ACS; cardiology following, echo essential normal, 4. Renal mass vs complex cyst: renal US with cyst, small 5. ANDREINA on CKD: creat improved 7. DM2: hold metformin for now. in ISS with good control. 8. 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 iron/ferritin, B12/folate WNL. 9. Dyspnea: V/Q scan low probability for PE. does have ALESIA (using CPAP, will bring his machine), also suspected hypoventilation syndrome, no COPD dx. 10. PAF: currently in NSR. will need OAC when bx complete 11. CAD: hx mult stents; no acute issues. cont 2ary prevention meds 12. Crohn's: in immunosuppressive meds (Humira q2 weeks) 13. Alcoholism: daily beer and scotch. no apparent W/D sx History of Present Illness History of Present Illness pain with movement, incl for radiographic studies Vitals Vitals Vital Signs Date Time Temp Pulse Resp B/P (MAP) Pulse Ox O2 Delivery O2 Flow Rate FiO2 01/21/17 10:45 98.0 66 20 143/74 (97) 98 Nasal Cannula 2.0 98.0 Physical Exam General: Oriented X3, Cooperative Heart: Normal S1, Normal S2 Lungs: Clear Abdomen: Normal bowel sounds, Soft, No tenderness Extremities: No clubbing, No edema Skin: No rashes Labs LABS Laboratory Tests Test 01/20/17 16:40 01/20/17 20:48 01/21/17 06:15 01/21/17 07:42 Glucose (Fingerstick) 125 mg/dL (70-99) 112 mg/dL (70-99) 115 mg/dL (70-99) White Blood Count 8.3 x10^3/uL (4.0-11.0) Red Blood Count 2.42 x10^6/uL (4.30-5.70) Hemoglobin 7.9 g/dL (13.0-17.5) Hematocrit 23.5 % (39.0-53.0) Mean Corpuscular Volume 97 fL (79-100) Mean Corpuscular Hemoglobin 33 pg (25-35) Mean Corpuscular Hemoglobin Concent 33 g/dL (31-37) Red Cell Distribution Width 18.0 % (11.5-14.5) Platelet Count 126 x10^3/uL (140-400) Neutrophils (%) (Auto) 79 % (31-73) Lymphocytes (%) (Auto) 9 % (24-48) Monocytes (%) (Auto) 12 % (0-9) Eosinophils (%) (Auto) 0 % (0-3) Basophils (%) (Auto) 0 % (0-3) Neutrophils # (Auto) 6.5 x10^3uL (1.8-7.7) Lymphocytes # (Auto) 0.8 x10^3/uL (1.0-4.8) Monocytes # (Auto) 1.0 x10^3/uL (0.0-1.1) Eosinophils # (Auto) 0.0 x10^3/uL (0.0-0.7) Basophils # (Auto) 0.0 x10^3/uL (0.0-0.2) Sodium Level 140 mmol/L (136-145) Potassium Level 4.3 mmol/L (3.5-5.1) Chloride Level 105 mmol/L (98-107) Carbon Dioxide Level 26 mmol/L (21-32) Anion Gap 9 (6-14) Blood Urea Nitrogen 29 mg/dL (8-26) Creatinine 1.4 mg/dL (0.7-1.3) Estimated GFR (Cockcroft-Gault) 50.0 Glucose Level 126 mg/dL (70-99) Calcium Level 8.4 mg/dL (8.5-10.1) Phosphorus Level 3.3 mg/dL (2.6-4.7) Magnesium Level 1.9 mg/dL (1.8-2.4) Albumin 2.8 g/dL (3.4-5.0) Test 01/21/17 11:31 Glucose (Fingerstick) 122 mg/dL (70-99) Review of Systems Review of Systems no n,v,d Assessment and Plan Assessmemt and Plan Problems Medical Problems: (1) Elevated d-dimer Status: Acute (2) Elevated serum creatinine Status: Acute (3) Hypoxia Status: Acute (4) Lactic acidosis Status: Acute (5) 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 Labs Laboratory Tests Test 01/19/17 16:24 01/19/17 20:24 01/20/17 06:15 01/20/17 07:20 Glucose (Fingerstick) 124 mg/dL (70-99) 126 mg/dL (70-99) 255 mg/dL (70-99) White Blood Count 7.1 x10^3/uL (4.0-11.0) Red Blood Count 2.42 x10^6/uL (4.30-5.70) Hemoglobin 8.0 g/dL (13.0-17.5) Hematocrit 23.5 % (39.0-53.0) Mean Corpuscular Volume 97 fL (79-100) Mean Corpuscular Hemoglobin 33 pg (25-35) Mean Corpuscular Hemoglobin Concent 34 g/dL (31-37) Red Cell Distribution Width 18.8 % (11.5-14.5) Platelet Count 125 x10^3/uL (140-400) Neutrophils (%) (Auto) 82 % (31-73) Lymphocytes (%) (Auto) 9 % (24-48) Monocytes (%) (Auto) 9 % (0-9) Eosinophils (%) (Auto) 0 % (0-3) Basophils (%) (Auto) 0 % (0-3) Neutrophils # (Auto) 5.8 x10^3uL (1.8-7.7) Lymphocytes # (Auto) 0.6 x10^3/uL (1.0-4.8) Monocytes # (Auto) 0.6 x10^3/uL (0.0-1.1) Eosinophils # (Auto) 0.0 x10^3/uL (0.0-0.7) Basophils # (Auto) 0.0 x10^3/uL (0.0-0.2) Sodium Level 140 mmol/L (136-145) Potassium Level 4.2 mmol/L (3.5-5.1) Chloride Level 106 mmol/L (98-107) Carbon Dioxide Level 28 mmol/L (21-32) Anion Gap 6 (6-14) Blood Urea Nitrogen 31 mg/dL (8-26) Creatinine 1.4 mg/dL (0.7-1.3) Estimated GFR (Cockcroft-Gault) 50.0 Glucose Level 138 mg/dL (70-99) Calcium Level 7.9 mg/dL (8.5-10.1) Phosphorus Level 2.9 mg/dL (2.6-4.7) Magnesium Level 2.2 mg/dL (1.8-2.4) Albumin 2.9 g/dL (3.4-5.0) Test 01/20/17 11:35 01/20/17 16:40 01/20/17 20:48 01/21/17 06:15 Glucose (Fingerstick) 121 mg/dL (70-99) 125 mg/dL (70-99) 112 mg/dL (70-99) White Blood Count 8.3 x10^3/uL (4.0-11.0) Red Blood Count 2.42 x10^6/uL (4.30-5.70) Hemoglobin 7.9 g/dL (13.0-17.5) Hematocrit 23.5 % (39.0-53.0) Mean Corpuscular Volume 97 fL (79-100) Mean Corpuscular Hemoglobin 33 pg (25-35) Mean Corpuscular Hemoglobin Concent 33 g/dL (31-37) Red Cell Distribution Width 18.0 % (11.5-14.5) Platelet Count 126 x10^3/uL (140-400) Neutrophils (%) (Auto) 79 % (31-73) Lymphocytes (%) (Auto) 9 % (24-48) Monocytes (%) (Auto) 12 % (0-9) Eosinophils (%) (Auto) 0 % (0-3) Basophils (%) (Auto) 0 % (0-3) Neutrophils # (Auto) 6.5 x10^3uL (1.8-7.7) Lymphocytes # (Auto) 0.8 x10^3/uL (1.0-4.8) Monocytes # (Auto) 1.0 x10^3/uL (0.0-1.1) Eosinophils # (Auto) 0.0 x10^3/uL (0.0-0.7) Basophils # (Auto) 0.0 x10^3/uL (0.0-0.2) Sodium Level 140 mmol/L (136-145) Potassium Level 4.3 mmol/L (3.5-5.1) Chloride Level 105 mmol/L (98-107) Carbon Dioxide Level 26 mmol/L (21-32) Anion Gap 9 (6-14) Blood Urea Nitrogen 29 mg/dL (8-26) Creatinine 1.4 mg/dL (0.7-1.3) Estimated GFR (Cockcroft-Gault) 50.0 Glucose Level 126 mg/dL (70-99) Calcium Level 8.4 mg/dL (8.5-10.1) Phosphorus Level 3.3 mg/dL (2.6-4.7) Magnesium Level 1.9 mg/dL (1.8-2.4) Albumin 2.8 g/dL (3.4-5.0) Test 01/21/17 07:42 01/21/17 11:31 Glucose (Fingerstick) 115 mg/dL (70-99) 122 mg/dL (70-99) Laboratory Tests Test 01/20/17 16:40 01/20/17 20:48 01/21/17 06:15 01/21/17 07:42 Glucose (Fingerstick) 125 mg/dL (70-99) 112 mg/dL (70-99) 115 mg/dL (70-99) White Blood Count 8.3 x10^3/uL (4.0-11.0) Red Blood Count 2.42 x10^6/uL (4.30-5.70) Hemoglobin 7.9 g/dL (13.0-17.5) Hematocrit 23.5 % (39.0-53.0) Mean Corpuscular Volume 97 fL (79-100) Mean Corpuscular Hemoglobin 33 pg (25-35) Mean Corpuscular Hemoglobin Concent 33 g/dL (31-37) Red Cell Distribution Width 18.0 % (11.5-14.5) Platelet Count 126 x10^3/uL (140-400) Neutrophils (%) (Auto) 79 % (31-73) Lymphocytes (%) (Auto) 9 % (24-48) Monocytes (%) (Auto) 12 % (0-9) Eosinophils (%) (Auto) 0 % (0-3) Basophils (%) (Auto) 0 % (0-3) Neutrophils # (Auto) 6.5 x10^3uL (1.8-7.7) Lymphocytes # (Auto) 0.8 x10^3/uL (1.0-4.8) Monocytes # (Auto) 1.0 x10^3/uL (0.0-1.1) Eosinophils # (Auto) 0.0 x10^3/uL (0.0-0.7) Basophils # (Auto) 0.0 x10^3/uL (0.0-0.2) Sodium Level 140 mmol/L (136-145) Potassium Level 4.3 mmol/L (3.5-5.1) Chloride Level 105 mmol/L (98-107) Carbon Dioxide Level 26 mmol/L (21-32) Anion Gap 9 (6-14) Blood Urea Nitrogen 29 mg/dL (8-26) Creatinine 1.4 mg/dL (0.7-1.3) Estimated GFR (Cockcroft-Gault) 50.0 Glucose Level 126 mg/dL (70-99) Calcium Level 8.4 mg/dL (8.5-10.1) Phosphorus Level 3.3 mg/dL (2.6-4.7) Magnesium Level 1.9 mg/dL (1.8-2.4) Albumin 2.8 g/dL (3.4-5.0) Test 01/21/17 11:31 Glucose (Fingerstick) 122 mg/dL (70-99) Microbiology 01/15/17 Blood Culture - Final, Complete NO GROWTH AFTER 5 DAYS Medications Current Medications Fentanyl Citrate (Fentanyl 2ml Vial) 50 mcg 1X ONCE IV Last administered on 21:52; Start 01/15/17 at 22:00; Stop 01/15/17 at 22:01; Status DC Sodium Chloride 1,000 ml @ 150 mls/hr 1X ONCE IV Last administered on 22:31; Start 01/15/17 at 22:00; Stop 01/16/17 at 04:39; Status DC Piperacillin Sod/ Tazobactam Sod 3.375 gm/Dextrose 50 ml @ 100 mls/hr 1X ONCE IV Last administered on 01/15/17 23:22; Start 01/15/17 at 23:30; Stop 01/15 at 23:59; Status DC Heparin Sodium (Porcine) (Heparin Sodium) 9,450 unit 1X ONCE IV Last administered on 01/15/17 23:30; Start 01/15/17 at 23:30; Stop 01/16/17 at 16 :41; Status DC Heparin Sodium/ Dextrose 500 ml @ 0 mls/hr CONT PRN IV SEE I/O RECORD Last administered on 01/16/17 16:26; Start 01/15/17 at 23:15; Stop 01/16/17 at 16 :41; Status DC Heparin Sodium (Porcine) (Heparin Sodium) 3,550 unit PRN Q6HRS PRN IV FOR UFH LEVEL LESS THAN 0.2; Start 01/15/17 at 23:15; Stop 01/16/17 at 16:41; Status DC Heparin Sodium (Porcine) (Heparin Sodium) 1,750 unit PRN Q6HRS PRN IV FOR UFH LEVEL 0.2 - 0.29; Start 01/15/17 at 23:15; Stop 01/16/17 at 16:41; Status DC Warfarin Sodium (Coumadin Per Pharmacy) 1 each PRN DAILY PRN MC PER PROTOCOL Last administered on 01/16/17 10:20; Start 01/15/17 at 23:15; Stop 01/16/17 at 16:39; Status DC Info (Anti-Coagulation Monitoring By Pharmacy) 1 each PRN DAILY PRN MC SEE COMMENTS Last administered on 01/16/17 10:17; Start 01/15/17 at 23:30; Stop 01/18/17 at 14:31; Status DC Ondansetron HCl (Zofran) 4 mg PRN Q8HRS PRN IV NAUSEA/VOMITING; Start at 23:15; Stop 01/16/17 at 23:14; Status DC Fentanyl Citrate (Fentanyl 2ml Vial) 50 mcg PRN Q2HR PRN IV SEVERE PAIN Last administered on 01/16/17 01:33; Start 01/15/17 at 23:15; Stop 01/16/17 at 02 :47; Status DC Piperacillin Sod/ Tazobactam Sod (Zosyn Per Pharmacy) 1 each PRN DAILY PRN MC SEE COMMENTS; Start 01/15/17 at 23:15; Stop 01/16/17 at 02:54; Status DC Sodium Chloride 1,000 ml @ 150 mls/hr 1X ONCE IV Last administered on 01:34; Start 01/15/17 at 23:45; Stop 01/16/17 at 06:24; Status DC Albuterol Sulfate (Ventolin Neb Soln) 2.5 mg PRN Q3HRS PRN NEB WHEEZING Last administered on 01/16/17 11:24; Start 01/15/17 at 23:30 Morphine Sulfate 2 mg 1X ONCE IV Last administered on 01/15/17 23:47; Start 01/16/17 at 00:00; Stop 01/16/17 at 00:01; Status DC Fentanyl Citrate (Fentanyl 2ml Vial) 75 mcg PRN Q2HR PRN IV SEVERE PAIN Last administered on 01/16/17 13:56; Start 01/16/17 at 02:45; Stop 01/16/17 at 16 :41; Status DC Piperacillin Sod/ Tazobactam Sod (Zosyn Per Pharmacy) 1 each PRN DAILY PRN MC SEE COMMENTS; Start 01/16/17 at 02:45; Stop 01/17/17 at 16:01; Status DC Piperacillin Sod/ Tazobactam Sod (Zosyn) 2.25 gm Q6HRS IVP Last administered on 01/17/17 12:01; Start 01/16/17 at 06:00; Stop 01/17/17 at 16:01; Status DC Info (Anti-Coagulation Monitoring By Pharmacy) 1 each PRN DAILY PRN MC SEE COMMENTS; Start 01/16/17 at 09:45; Status Cancel Warfarin Sodium (Coumadin) 5 mg 1X WARF ONCE PO ; Start 01/16/17 at 16:00; Stop 01/16/17 at 16:39; Status DC Lactobacillus Rhamnosus (Culturelle) 1 cap BID PO Last administered on 08:06; Start 01/16/17 at 21:00 Magnesium Sulfate/ Dextrose 50 ml @ 25 mls/hr 1X ONCE IV Last administered on 01/16/17 12:45; Start 01/16/17 at 11:30; Stop 01/16/17 at 13:29; Status DC Linezolid 300 ml @ 300 mls/hr Q12HR IV Last administered on 01/16/17 20:58; Start 01/16/17 at 12:00; Stop 01/17/17 at 08:14; Status DC Iohexol (Omnipaque 240 Mg/ml) 30 ml 1X ONCE PO ; Start 01/16/17 at 12:00; Stop 01/16/17 at 12:01; Status DC Info (Do NOT chart on this entry -- for MONITORING) 1 each PRN DAILY PRN MC SEE COMMENTS; Start 01/16/17 at 12:00; Stop 01/18/17 at 11:59; Status DC Magnesium Sulfate/ Dextrose 50 ml @ 25 mls/hr PRN DAILY PRN IV for Mag < 1.7 on am labs; Start 01/16/17 at 13:15 Metoprolol Succinate (Toprol Xl) 50 mg BID PO Last administered on 01/21/17 08 :11; Start 01/16/17 at 21:00; Stop 01/21/17 at 08:33; Status DC Sodium Chloride 1,000 ml @ 100 mls/hr Q10H IV Last administered on 01/18/17 05:45; Start 01/16/17 at 13:45; Stop 01/18/17 at 11:44; Status DC Aspirin (Charmaine Aspirin) 325 mg DAILYWBKFT PO Last administered on 01/19/17 08: 35; Start 01/17/17 at 08:00; Stop 01/19/17 at 09:49; Status DC Atorvastatin Calcium (Lipitor) 40 mg QHS PO Last administered on 01/20/17 21: 07; Start 01/16/17 at 21:00 Vitamin D (Vitamin D3) 2,000 unit DAILY PO Last administered on 01/21/17 08:06 ; Start 01/17/17 at 09:00 Clonidine HCl (Catapres) 0.1 mg BID PO Last administered on 01/19/17 08:35; Start 01/16/17 at 21:00; Stop 01/19/17 at 09:52; Status DC Folic Acid (Folic Acid) 1 mg DAILY PO Last administered on 01/21/17 08:07; Start 01/17/17 at 09:00 Loperamide HCl (Imodium) 2 mg Q2H PRN PO diarrhea; Start 01/16/17 at 16:45 Metoprolol Succinate (Toprol Xl) 100 mg BID PO ; Start 01/16/17 at 21:00; Status UNV Gabapentin (Neurontin) 600 mg TID PO Last administered on 01/21/17 08:05; Start 01/16/17 at 21:00 Pantoprazole Sodium (Protonix) 40 mg DAILYAC PO Last administered on 01/21/17 08:05; Start 01/17/17 at 07:30 Insulin Aspart (NovoLOG) 0-9 UNITS TIDWMEALS SQ Last administered on 01/20/17 08:50; Start 01/16/17 at 17:00 Dextrose (Dextrose 50%-Water Syringe) 12.5 gm PRN Q15MIN PRN IV SEE COMMENTS; Start 01/16/17 at 16:45 Dexamethasone Sodium Phosphate (Decadron) 10 mg 1X ONCE IV Last administered on 01/16/17 17:05; Start 01/16/17 at 16:45; Stop 01/16/17 at 16:46; Status DC Dexamethasone Sodium Phosphate (Decadron) 4 mg Q6HRS IV Last administered on 05:58; Start 01/17/17 at 00:00; Stop 01/18/17 at 15:31; Status DC Morphine Sulfate 2 mg PRN Q2HR PRN IV PAIN Last administered on 01/20/17 07:31 ; Start 01/16/17 at 16:45 Oxycodone/ Acetaminophen (Percocet 10/325) 1 tab PRN Q4HRS PRN PO pain Last administered on 01/21/17 06:37; Start 01/16/17 at 16:45 Heparin Sodium (Porcine) (Heparin Sq) 5,000 unit Q8HRS SQ Last administered on 01/21/17 06:26; Start 01/16/17 at 22:00 Diazepam (Valium) 5 mg PRN Q6HRS PRN IV SEIZURES; Start 01/16/17 at 18:30; Status Cancel Diazepam (Valium) 5 mg PRN Q6HRS PRN PO TREMORS Last administered on 01/21/17 02:13; Start 01/16/17 at 18:45 Fentanyl Citrate (Fentanyl 2ml Vial) 100 mcg STK-MED ONCE .ROUTE ; Start at 10:08; Stop 01/17/17 at 10:09; Status DC Midazolam HCl (Versed) 2 mg STK-MED ONCE .ROUTE ; Start 01/17/17 at 10:08; Stop 01/17/17 at 10:09; Status DC Lidocaine/Sodium Bicarbonate (Buffered Lidocaine 1%) 20 ml 1X ONCE IJ Last administered on 01/17/17 10:51; Start 01/17/17 at 10:15; Stop 01/17/17 at 10:16 ; Status DC Midazolam HCl (Versed) 2 mg 1X ONCE IV Last administered on 01/17/17 10:52; Start 01/17/17 at 10:15; Stop 01/17/17 at 10:16; Status DC Fentanyl Citrate (Fentanyl 2ml Vial) 100 mcg 1X ONCE IV Last administered on 01/17/17 10:52; Start 01/17/17 at 10:15; Stop 01/17/17 at 10:16; Status DC Lidocaine/Sodium Bicarbonate (Buffered Lidocaine 1%) 20 ml STK-MED ONCE IJ ; Start 01/17/17 at 10:14; Stop 01/17/17 at 10:15; Status DC Piperacillin Sod/ Tazobactam Sod (Zosyn) 3.375 gm Q6HRS IVP Last administered on 01/18/17 06:00; Start 01/17/17 at 18:00; Stop 01/18/17 at 10:42; Status DC Dexamethasone Sodium Phosphate (Decadron) 4 mg Q12HR IV Last administered on 08:07; Start 01/18/17 at 21:00 Aspirin (Ecotrin) 81 mg DAILYWBKFT PO Last administered on 01/21/17 08:07; Start 01/20/17 at 08:00 Amlodipine Besylate (Norvasc) 10 mg DAILY PO Last administered on 01/21/17 08: 06; Start 01/19/17 at 10:00 Oxycodone HCl (OxyCONTIN) 30 mg Q12HR PO Last administered on 01/21/17 08:05; Start 01/19/17 at 11:45 Senna/Docusate Sodium (Senna Plus) 2 tab DAILY PO Last administered on 08:06; Start 01/19/17 at 12:00 Gadobutrol (Gadavist) 10 mmol 1X ONCE IV ; Start 01/19/17 at 15:45; Stop at 15:46; Status DC Sodium Chloride 1,000 ml @ 75 mls/hr [id number] IV Last administered on 02:12; Start 01/20/17 at 11:15 Polyethylene Glycol (miraLAX PACKET) 17 gm DAILY PO Last administered on 08:06; Start 01/20/17 at 15:00 Metoprolol Succinate (Toprol Xl) 50 mg DAILY PO ; Start 01/21/17 at 09:00 Active Scripts Active Reported Imodium A-D (Loperamide HCl) 2 Mg Capsule 2 Mg PO Aspirin 325 Mg Tablet 1 Tab PO DAILY Vitamin D3 (Cholecalciferol (Vitamin D3)) 1,000 Unit Tablet 2,000 Unit PO Vicodin Es 7.5-300 Mg Tablet (Hydrocodone Bit/Acetaminophen) 1 Each Tablet 1 Each PO Q6H PRN Humira (Adalimumab) 40 Mg/0.8 Ml Pen.ij.kit 1 Syr SQ Q2WKS Folbic Rf Tablet (B12/Levomefolate Calcium/B-6) 1 Each Tablet 1 Each PO Omeprazole 40 Mg Capsule.dr 1 Cap PO DAILY Cholestyramine Packet (Cholestyramine (With Sugar)) 4 Gm Powd.pack 4 Gm PO Gabapentin 600 Mg Tablet 600 Mg PO TID Folic Acid 1 Mg Tablet 1 Tab PO DAILY Clonidine Hcl 0.1 Mg Tablet 0.1 Mg PO BID Metformin Hcl 1,000 Mg Tablet 1,000 Mg PO BIDWMEALS Atorvastatin Calcium 40 Mg Tablet 1 Tab PO DAILY Metoprolol Succinate ( Xl ) (Metoprolol Succinate) 100 Mg Tab.er.24h 100 Mg PO BID Vitals/I & O Vital Sign - Last 24 Hours 01/20/17 01/20/17 01/20/17 01/20/17 15:05 19:20 20:20 21:00 Temp 97.4 98.1 97.4 98.1 Pulse 53 60 46 Resp 18 16 B/P (MAP) 140/67 (91) 118/58 (78) 118/58 Pulse Ox 100 97 O2 Delivery Nasal Cannula Room Air Nasal Cannula O2 Flow Rate 2.0 2.0 2.0 01/20/17 01/20/17 01/21/17 01/21/17 21:11 23:00 01:11 02:12 Temp 98.2 98.0 98.2 98.0 Pulse 65 76 Resp 18 18 16 18 B/P (MAP) 122/54 (76) 142/62 (88) Pulse Ox 97 97 97 97 O2 Delivery Nasal Cannula Nasal Cannula Nasal Cannula Nasal Cannula O2 Flow Rate 2.0 2.0 2.0 2.0 01/21/17 01/21/17 01/21/17 01/21/17 02:13 03:13 06:37 07:30 Resp 20 18 18 Pulse Ox 97 97 97 O2 Delivery Nasal Cannula Nasal Cannula Nasal Cannula Nasal Cannula O2 Flow Rate 2.0 2.0 2.0 2.0 01/21/17 01/21/17 01/21/17 01/21/17 07:40 08:06 08:11 10:45 Temp 98.1 98.0 98.1 98.0 Pulse 75 65 65 66 Resp 20 20 B/P (MAP) 147/59 (88) 143/74 (97) Pulse Ox 100 98 O2 Delivery Nasal Cannula Nasal Cannula O2 Flow Rate 2.0 2.0 JOY ANDERSON MD Jan 21, 2017 14:46
[2017-01-21 14:48] VITALS: BP 171/74
[2017-01-21 19:25] VITALS: BP 126/75
[2017-01-21] MEDS: ATORVASTATIN CALCIUM 40 MG TABLET. PO SCH (20:49)
[2017-01-21 23:33] VITALS: BP 157/75
[2017-01-22 03:42] VITALS: BP 162/75
[2017-01-22] MEDS: oxyCODONE/APAP 10/325 1 TAB TABLET PO PRN ×2 (03:58→15:47)
[2017-01-22] MEDS: diazePAM 5 MG TABLET PO PRN (03:59)
[2017-01-22 05:03] LABS: BASO % 0 % (0-3); EOS % 0 % (0-3); HEMATOCRIT 24.6 % (39.0-53.0); HEMOGLOBIN 8.1 g/dL (13.0-17.5); LYMPH # 0.7 x10^3/uL (1.0-4.8); LYMPH % 8 % (24-48); MEAN CORPUSCULAR HEMOGLOBIN 33 pg (25-35); MEAN CORPUSCULAR HGB CONC 33 g/dL (31-37); MEAN CORPUSCULAR VOLUME 98 fL (79-100); MONO % 12 % (0-9); NEUT % 80 % (31-73); PLATELET COUNT 133 x10^3/uL (140-400); RED CELL DISTRIBUTION WIDTH 18.3 % (11.5-14.5); WHITE BLOOD COUNT 8.4 x10^3/uL (4.0-11.0)
[2017-01-22 05:07] LABS: ALBUMIN 2.8 g/dL (3.4-5.0); CALCIUM 8.8 mg/dL (8.5-10.1); CREATININE 1.3 mg/dL (0.7-1.3); GFR 54.4; PHOSPHORUS 3.6 mg/dL (2.6-4.7); POTASSIUM 4.3 mmol/L (3.5-5.1)
[2017-01-22] MEDS: HEPARIN PF for SUB-Q USE 5,000 UNIT/0.5 ML VIAL. SQ SCH ×3 (06:18→21:00)
[2017-01-22 07:40] VITALS: BP 153/67
[2017-01-22] MEDS: INSULIN ASPART 300 UNITS/3 ML INSULN.PEN SQ SCH ×3 (08:00→17:00)
[2017-01-22] MEDS: PANTOPRAZOLE 40 MG TABLET.DR. PO SCH (09:15)
[2017-01-22] MEDS: FOLIC ACID 1 MG TABLET. PO SCH (09:16)
[2017-01-22] MEDS: LACTOBACILLUS RHAMNOSUS GG 1 CAPSULE. PO SCH ×2 (09:16→20:59)
[2017-01-22] MEDS: GABAPENTIN 300 MG CAPSULE. PO SCH ×3 (09:16→20:59)
[2017-01-22] MEDS: SENNOSIDES/DOCUSATE 8.6/50MG TABLET. PO SCH (09:16)
[2017-01-22] MEDS: CHOLECALCIFEROL (VITAMIN D3) 1,000 UNIT TABLET PO SCH (09:16)
[2017-01-22] MEDS: ASPIRIN ENTERIC COATED 81 MG TABLET.DR. PO SCH (09:16)
[2017-01-22] MEDS: oxyCODONE ER 15 MG TAB.ER.12H PO SCH ×2 (09:16→21:02)
[2017-01-22] MEDS: METOPROLOL SUCC 24HR ER 50 MG TAB.ER.24H. PO SCH (09:21)
[2017-01-22 10:15] VITALS: BP 143/65
[2017-01-22] MEDS: DEXAMETHASONE SOD PHOS 4 MG/ML VIAL IV SCH ×2 (10:21→20:59)
[2017-01-22] MEDS: amLODIPine BESYLATE 10 MG TABLET PO SCH (10:21)
[2017-01-22] MEDS: POLYETHYLENE GLYCOL 3350 17 GM PACKET. PO SCH (10:21)
[2017-01-22] MEDS: MORPHINE SULFATE 2 MG/ML DISP.SYRIN. IV PRN (10:30)
--- NOTE | 2017-01-22 12:06 | PDOC ---
SUBJECTIVE ROS ANDREINA To OR soon OBJECTIVE Vital Signs Vital Signs Date Time Temp Pulse Resp B/P (MAP) Pulse Ox O2 Delivery O2 Flow Rate FiO2 01/22/17 10:30 18 95 Room Air 01/22/17 10:21 81 143/65 01/22/17 10:15 98.0 98.0 01/22/17 09:16 2.0 PHYSICAL EXAM Physical Exam General Appearance: Awake: Alert Oriented x 2-3 Neck: No JVD or JVP Chest: CTA Elia Heart: S1 S2 Abdomen - Soft NTND Extremities - No Edema DIAGNOSIS/ASSESSMENT Assessment & Plan ANDREINA - Resolved ? CKD III - cannot be ruled out. Will be avail prn Problems: COMMENT/RELEVANT DATA Meds Current Medications Medications (Trade) Dose Ordered Sig/Jose Start Time Stop Time Status Last Admin Dose Admin Albuterol Sulfate (Ventolin Neb Soln) 2.5 mg PRN Q3HRS PRN 01/15/17 23:30 01/16/17 11:24 2.5 MG Amlodipine Besylate (Norvasc) 10 mg DAILY 01/19/17 10:00 01/22/17 10:21 10 MG Aspirin (Charmaine Aspirin) 325 mg DAILYWBKFT 01/17/17 08:00 01/19/17 09:49 DC 01/19/17 08:35 325 MG Aspirin (Ecotrin) 81 mg DAILYWBKFT 01/20/17 08:00 01/22/17 09:16 81 MG Atorvastatin Calcium (Lipitor) 40 mg QHS 01/16/17 21:00 01/21/17 20:49 40 MG Clonidine HCl (Catapres) 0.1 mg BID 01/16/17 21:00 01/19/17 09:52 DC 01/19/17 08:35 0.1 MG Dexamethasone Sodium Phosphate (Decadron) 4 mg Q12HR 01/18/17 21:00 01/22/17 10:21 4 MG Dextrose (Dextrose 50%-Water Syringe) 12.5 gm PRN Q15MIN PRN 01/16/17 16:45 Diazepam (Valium) 5 mg PRN Q6HRS PRN 01/16/17 18:45 01/22/17 03:59 5 MG Fentanyl Citrate (Fentanyl 2ml Vial) 100 mcg 1X ONCE 01/17/17 10:15 01/17/17 10:16 DC 01/17/17 10:52 100 MCG Folic Acid (Folic Acid) 1 mg DAILY 01/17/17 09:00 01/22/17 09:16 1 MG Gabapentin (Neurontin) 600 mg TID 01/16/17 21:00 01/22/17 09:16 600 MG Gadobutrol (Gadavist) 10 mmol 1X ONCE 01/19/17 15:45 01/19/17 15:46 DC Heparin Sodium (Porcine) (Heparin Sodium) 1,750 unit PRN Q6HRS PRN 01/15/17 23:15 01/16/17 16:41 DC Heparin Sodium (Porcine) (Heparin Sq) 5,000 unit Q8HRS 01/16/17 22:00 01/22/17 06:18 5,000 UNIT Heparin Sodium/ Dextrose 500 ml @ 0 mls/hr CONT PRN 01/15/17 23:15 01/16/17 16:41 DC 01/16/17 16:26 30.4 MLS/HR Info (Anti-Coagulation Monitoring By Pharmacy) 1 each PRN DAILY PRN 01/16/17 09:45 Cancel Info (Do NOT chart on this entry -- for MONITORING) 1 each PRN DAILY PRN 01/16/17 12:00 01/18/17 11:59 DC Insulin Aspart (NovoLOG) 0-9 UNITS TIDWMEALS 01/16/17 17:00 01/20/17 08:50 7 UNITS Iohexol (Omnipaque 240 Mg/ml) 30 ml 1X ONCE 01/16/17 12:00 01/16/17 12:01 DC Lactobacillus Rhamnosus (Culturelle) 1 cap BID 01/16/17 21:00 01/22/17 09:16 1 CAP Lidocaine/Sodium Bicarbonate (Buffered Lidocaine 1%) 20 ml STK-MED ONCE 01/17/17 10:14 01/17/17 10:15 DC Linezolid 300 ml @ 300 mls/hr Q12HR 01/16/17 12:00 01/17/17 08:14 DC 01/16/17 20:58 300 MLS/HR Loperamide HCl (Imodium) 2 mg Q2H PRN 01/16/17 16:45 Magnesium Sulfate/ Dextrose 50 ml @ 25 mls/hr PRN DAILY PRN 01/16/17 13:15 Metoprolol Succinate (Toprol Xl) 50 mg DAILY 01/21/17 09:00 01/22/17 09:21 50 MG Midazolam HCl (Versed) 2 mg 1X ONCE 01/17/17 10:15 01/17/17 10:16 DC 01/17/17 10:52 1 MG Morphine Sulfate 2 mg PRN Q2HR PRN 01/16/17 16:45 01/22/17 10:30 2 MG Ondansetron HCl (Zofran) 4 mg PRN Q8HRS PRN 01/15/17 23:15 01/16/17 23:14 DC Oxycodone HCl (OxyCONTIN) 30 mg Q12HR 01/19/17 11:45 01/22/17 09:16 30 MG Oxycodone/ Acetaminophen (Percocet 10) 1 tab PRN Q4HRS PRN 01/16/17 16:45 01/22/17 03:58 1 TAB Pantoprazole Sodium (Protonix) 40 mg DAILYAC 01/17/17 07:30 01/22/17 09:15 40 MG Piperacillin Sod/ Tazobactam Sod (Zosyn Per Pharmacy) 1 each PRN DAILY PRN 01/16/17 02:45 01/17/17 16:01 DC Piperacillin Sod/ Tazobactam Sod (Zosyn) 3.375 gm Q6HRS 01/17/17 18:00 01/18/17 10:42 DC 01/18/17 06:00 3.375 GM Piperacillin Sod/ Tazobactam Sod 3.375 gm/Dextrose 50 ml @ 100 mls/hr 1X ONCE 01/15/17 23:30 01/15/17 23:59 DC 01/15/17 23:22 100 MLS/HR Polyethylene Glycol (miraLAX PACKET) 17 gm DAILY 01/20/17 15:00 01/22/17 10:21 17 GM Senna/Docusate Sodium (Senna Plus) 2 tab DAILY 01/19/17 12:00 01/22/17 09:16 2 TAB Sodium Chloride 1,000 ml @ 75 mls/hr [id number] 01/20/17 11:15 01/21/17 18:06 DC 01/21/17 02:12 75 MLS/HR Vitamin D (Vitamin D3) 2,000 unit DAILY 01/17/17 09:00 01/22/17 09:16 2,000 UNIT Warfarin Sodium (Coumadin Per Pharmacy) 1 each PRN DAILY PRN 01/15/17 23:15 01/16/17 16:39 DC 01/16/17 10:20 1 EACH Warfarin Sodium (Coumadin) 5 mg 1X WARF ONCE 01/16/17 16:00 01/16/17 16:39 DC Lab Laboratory Tests Test 01/21/17 17:15 01/21/17 20:34 01/22/17 04:35 01/22/17 07:41 Glucose (Fingerstick) 128 mg/dL (70-99) 142 mg/dL (70-99) 126 mg/dL (70-99) White Blood Count 8.4 x10^3/uL (4.0-11.0) Red Blood Count 2.50 x10^6/uL (4.30-5.70) Hemoglobin 8.1 g/dL (13.0-17.5) Hematocrit 24.6 % (39.0-53.0) Mean Corpuscular Volume 98 fL (79-100) Mean Corpuscular Hemoglobin 33 pg (25-35) Mean Corpuscular Hemoglobin Concent 33 g/dL (31-37) Red Cell Distribution Width 18.3 % (11.5-14.5) Platelet Count 133 x10^3/uL (140-400) Neutrophils (%) (Auto) 80 % (31-73) Lymphocytes (%) (Auto) 8 % (24-48) Monocytes (%) (Auto) 12 % (0-9) Eosinophils (%) (Auto) 0 % (0-3) Basophils (%) (Auto) 0 % (0-3) Neutrophils # (Auto) 6.7 x10^3uL (1.8-7.7) Lymphocytes # (Auto) 0.7 x10^3/uL (1.0-4.8) Monocytes # (Auto) 1.0 x10^3/uL (0.0-1.1) Eosinophils # (Auto) 0.0 x10^3/uL (0.0-0.7) Basophils # (Auto) 0.0 x10^3/uL (0.0-0.2) Sodium Level 139 mmol/L (136-145) Potassium Level 4.3 mmol/L (3.5-5.1) Chloride Level 104 mmol/L (98-107) Carbon Dioxide Level 28 mmol/L (21-32) Anion Gap 7 (6-14) Blood Urea Nitrogen 28 mg/dL (8-26) Creatinine 1.3 mg/dL (0.7-1.3) Estimated GFR (Cockcroft-Gault) 54.4 Glucose Level 140 mg/dL (70-99) Calcium Level 8.8 mg/dL (8.5-10.1) Phosphorus Level 3.6 mg/dL (2.6-4.7) Albumin 2.8 g/dL (3.4-5.0) Test 01/22/17 11:49 Glucose (Fingerstick) 119 mg/dL (70-99) SERVANDO HARTMANN MD Jan 22, 2017 12:06
--- NOTE | 2017-01-22 13:20 | PDOC ---
PROGRESS NOTES Chief Complaint Chief Complaint L3 spinal mass: highly suspicious for malignancy. Back pain Syncope Renal mass vs complex cyst ANDREINA on CKD DM2 Anemia Dyspnea PAF CAD: hx mult stents Crohn's Alcoholism History of Present Illness History of Present Illness This is a pleasant 71 yr old gentleman who was admitted to the hospital with a cc of syncope, hypoxia and elevated D-dimer. Today he was examined at bedside. He is alert, oriented and no in a cute distress. Family member was present in the room. Pt. complains of constipation and states the magnesium citrate did not help. If the constipation does not improve, will consult GI. The pt. is currently being followed by Nepho re: renal insufficiency, ID re: positive lactic acid, Cardio re: CHF, Heme and Onc re: spinal cancer, Radiation Onc re: Spinal cancer, Neurosurg re:L3 malignant lesion. Pt. will have surgery with instrumental fusion tomorrow. For now, continue to monitor. Vitals Vitals Vital Signs Date Time Temp Pulse Resp B/P (MAP) Pulse Ox O2 Delivery O2 Flow Rate FiO2 01/22/17 11:00 24 95 Room Air 01/22/17 10:21 81 143/65 01/22/17 10:15 98.0 98.0 01/22/17 09:16 2.0 Physical Exam General: Alert, Oriented X3, Cooperative, No acute distress Heart: Normal S1, Normal S2 Lungs: Clear Abdomen: Normal bowel sounds, Soft, No tenderness Extremities: No clubbing, No edema Skin: No rashes Labs LABS Laboratory Tests Test 01/21/17 17:15 01/21/17 20:34 01/22/17 04:35 01/22/17 07:41 Glucose (Fingerstick) 128 mg/dL (70-99) 142 mg/dL (70-99) 126 mg/dL (70-99) White Blood Count 8.4 x10^3/uL (4.0-11.0) Red Blood Count 2.50 x10^6/uL (4.30-5.70) Hemoglobin 8.1 g/dL (13.0-17.5) Hematocrit 24.6 % (39.0-53.0) Mean Corpuscular Volume 98 fL (79-100) Mean Corpuscular Hemoglobin 33 pg (25-35) Mean Corpuscular Hemoglobin Concent 33 g/dL (31-37) Red Cell Distribution Width 18.3 % (11.5-14.5) Platelet Count 133 x10^3/uL (140-400) Neutrophils (%) (Auto) 80 % (31-73) Lymphocytes (%) (Auto) 8 % (24-48) Monocytes (%) (Auto) 12 % (0-9) Eosinophils (%) (Auto) 0 % (0-3) Basophils (%) (Auto) 0 % (0-3) Neutrophils # (Auto) 6.7 x10^3uL (1.8-7.7) Lymphocytes # (Auto) 0.7 x10^3/uL (1.0-4.8) Monocytes # (Auto) 1.0 x10^3/uL (0.0-1.1) Eosinophils # (Auto) 0.0 x10^3/uL (0.0-0.7) Basophils # (Auto) 0.0 x10^3/uL (0.0-0.2) Sodium Level 139 mmol/L (136-145) Potassium Level 4.3 mmol/L (3.5-5.1) Chloride Level 104 mmol/L (98-107) Carbon Dioxide Level 28 mmol/L (21-32) Anion Gap 7 (6-14) Blood Urea Nitrogen 28 mg/dL (8-26) Creatinine 1.3 mg/dL (0.7-1.3) Estimated GFR (Cockcroft-Gault) 54.4 Glucose Level 140 mg/dL (70-99) Calcium Level 8.8 mg/dL (8.5-10.1) Phosphorus Level 3.6 mg/dL (2.6-4.7) Albumin 2.8 g/dL (3.4-5.0) Test 01/22/17 11:49 Glucose (Fingerstick) 119 mg/dL (70-99) Review of Systems Review of Systems fatigue and weakness Assessment and Plan Assessmemt and Plan Problems Medical Problems: (1) Elevated d-dimer Status: Acute (2) Elevated serum creatinine Status: Acute (3) Hypoxia Status: Acute (4) Lactic acidosis Status: Acute (5) 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 Back pain Syncope Renal mass vs complex cyst ANDREINA on CKD DM2 Anemia Dyspnea PAF CAD: hx mult stents Crohn's Alcoholism Plan: Surgery tomorrow Continue current medications PT/OT Recheck labs Monitor Hgb Appreciate specialists input Problems: Comment Review of Relevant I have reviewed the following items bernadine (where applicable) has been applied. Labs Laboratory Tests Test 01/20/17 16:40 01/20/17 20:48 01/21/17 06:15 01/21/17 07:42 Glucose (Fingerstick) 125 mg/dL (70-99) 112 mg/dL (70-99) 115 mg/dL (70-99) White Blood Count 8.3 x10^3/uL (4.0-11.0) Red Blood Count 2.42 x10^6/uL (4.30-5.70) Hemoglobin 7.9 g/dL (13.0-17.5) Hematocrit 23.5 % (39.0-53.0) Mean Corpuscular Volume 97 fL (79-100) Mean Corpuscular Hemoglobin 33 pg (25-35) Mean Corpuscular Hemoglobin Concent 33 g/dL (31-37) Red Cell Distribution Width 18.0 % (11.5-14.5) Platelet Count 126 x10^3/uL (140-400) Neutrophils (%) (Auto) 79 % (31-73) Lymphocytes (%) (Auto) 9 % (24-48) Monocytes (%) (Auto) 12 % (0-9) Eosinophils (%) (Auto) 0 % (0-3) Basophils (%) (Auto) 0 % (0-3) Neutrophils # (Auto) 6.5 x10^3uL (1.8-7.7) Lymphocytes # (Auto) 0.8 x10^3/uL (1.0-4.8) Monocytes # (Auto) 1.0 x10^3/uL (0.0-1.1) Eosinophils # (Auto) 0.0 x10^3/uL (0.0-0.7) Basophils # (Auto) 0.0 x10^3/uL (0.0-0.2) Sodium Level 140 mmol/L (136-145) Potassium Level 4.3 mmol/L (3.5-5.1) Chloride Level 105 mmol/L (98-107) Carbon Dioxide Level 26 mmol/L (21-32) Anion Gap 9 (6-14) Blood Urea Nitrogen 29 mg/dL (8-26) Creatinine 1.4 mg/dL (0.7-1.3) Estimated GFR (Cockcroft-Gault) 50.0 Glucose Level 126 mg/dL (70-99) Calcium Level 8.4 mg/dL (8.5-10.1) Phosphorus Level 3.3 mg/dL (2.6-4.7) Magnesium Level 1.9 mg/dL (1.8-2.4) Albumin 2.8 g/dL (3.4-5.0) Test 01/21/17 11:31 01/21/17 17:15 01/21/17 20:34 01/22/17 04:35 Glucose (Fingerstick) 122 mg/dL (70-99) 128 mg/dL (70-99) 142 mg/dL (70-99) White Blood Count 8.4 x10^3/uL (4.0-11.0) Red Blood Count 2.50 x10^6/uL (4.30-5.70) Hemoglobin 8.1 g/dL (13.0-17.5) Hematocrit 24.6 % (39.0-53.0) Mean Corpuscular Volume 98 fL (79-100) Mean Corpuscular Hemoglobin 33 pg (25-35) Mean Corpuscular Hemoglobin Concent 33 g/dL (31-37) Red Cell Distribution Width 18.3 % (11.5-14.5) Platelet Count 133 x10^3/uL (140-400) Neutrophils (%) (Auto) 80 % (31-73) Lymphocytes (%) (Auto) 8 % (24-48) Monocytes (%) (Auto) 12 % (0-9) Eosinophils (%) (Auto) 0 % (0-3) Basophils (%) (Auto) 0 % (0-3) Neutrophils # (Auto) 6.7 x10^3uL (1.8-7.7) Lymphocytes # (Auto) 0.7 x10^3/uL (1.0-4.8) Monocytes # (Auto) 1.0 x10^3/uL (0.0-1.1) Eosinophils # (Auto) 0.0 x10^3/uL (0.0-0.7) Basophils # (Auto) 0.0 x10^3/uL (0.0-0.2) Sodium Level 139 mmol/L (136-145) Potassium Level 4.3 mmol/L (3.5-5.1) Chloride Level 104 mmol/L (98-107) Carbon Dioxide Level 28 mmol/L (21-32) Anion Gap 7 (6-14) Blood Urea Nitrogen 28 mg/dL (8-26) Creatinine 1.3 mg/dL (0.7-1.3) Estimated GFR (Cockcroft-Gault) 54.4 Glucose Level 140 mg/dL (70-99) Calcium Level 8.8 mg/dL (8.5-10.1) Phosphorus Level 3.6 mg/dL (2.6-4.7) Albumin 2.8 g/dL (3.4-5.0) Test 01/22/17 07:41 01/22/17 11:49 Glucose (Fingerstick) 126 mg/dL (70-99) 119 mg/dL (70-99) Laboratory Tests Test 01/21/17 17:15 01/21/17 20:34 01/22/17 04:35 01/22/17 07:41 Glucose (Fingerstick) 128 mg/dL (70-99) 142 mg/dL (70-99) 126 mg/dL (70-99) White Blood Count 8.4 x10^3/uL (4.0-11.0) Red Blood Count 2.50 x10^6/uL (4.30-5.70) Hemoglobin 8.1 g/dL (13.0-17.5) Hematocrit 24.6 % (39.0-53.0) Mean Corpuscular Volume 98 fL (79-100) Mean Corpuscular Hemoglobin 33 pg (25-35) Mean Corpuscular Hemoglobin Concent 33 g/dL (31-37) Red Cell Distribution Width 18.3 % (11.5-14.5) Platelet Count 133 x10^3/uL (140-400) Neutrophils (%) (Auto) 80 % (31-73) Lymphocytes (%) (Auto) 8 % (24-48) Monocytes (%) (Auto) 12 % (0-9) Eosinophils (%) (Auto) 0 % (0-3) Basophils (%) (Auto) 0 % (0-3) Neutrophils # (Auto) 6.7 x10^3uL (1.8-7.7) Lymphocytes # (Auto) 0.7 x10^3/uL (1.0-4.8) Monocytes # (Auto) 1.0 x10^3/uL (0.0-1.1) Eosinophils # (Auto) 0.0 x10^3/uL (0.0-0.7) Basophils # (Auto) 0.0 x10^3/uL (0.0-0.2) Sodium Level 139 mmol/L (136-145) Potassium Level 4.3 mmol/L (3.5-5.1) Chloride Level 104 mmol/L (98-107) Carbon Dioxide Level 28 mmol/L (21-32) Anion Gap 7 (6-14) Blood Urea Nitrogen 28 mg/dL (8-26) Creatinine 1.3 mg/dL (0.7-1.3) Estimated GFR (Cockcroft-Gault) 54.4 Glucose Level 140 mg/dL (70-99) Calcium Level 8.8 mg/dL (8.5-10.1) Phosphorus Level 3.6 mg/dL (2.6-4.7) Albumin 2.8 g/dL (3.4-5.0) Test 01/22/17 11:49 Glucose (Fingerstick) 119 mg/dL (70-99) Microbiology 01/15/17 Blood Culture - Final, Complete NO GROWTH AFTER 5 DAYS Medications Current Medications Fentanyl Citrate (Fentanyl 2ml Vial) 50 mcg 1X ONCE IV Last administered on 21:52; Start 01/15/17 at 22:00; Stop 01/15/17 at 22:01; Status DC Sodium Chloride 1,000 ml @ 150 mls/hr 1X ONCE IV Last administered on 22:31; Start 01/15/17 at 22:00; Stop 01/16/17 at 04:39; Status DC Piperacillin Sod/ Tazobactam Sod 3.375 gm/Dextrose 50 ml @ 100 mls/hr 1X ONCE IV Last administered on 01/15/17 23:22; Start 01/15/17 at 23:30; Stop 01/15 at 23:59; Status DC Heparin Sodium (Porcine) (Heparin Sodium) 9,450 unit 1X ONCE IV Last administered on 01/15/17 23:30; Start 01/15/17 at 23:30; Stop 01/16/17 at 16 :41; Status DC Heparin Sodium/ Dextrose 500 ml @ 0 mls/hr CONT PRN IV SEE I/O RECORD Last administered on 01/16/17 16:26; Start 01/15/17 at 23:15; Stop 01/16/17 at 16 :41; Status DC Heparin Sodium (Porcine) (Heparin Sodium) 3,550 unit PRN Q6HRS PRN IV FOR UFH LEVEL LESS THAN 0.2; Start 01/15/17 at 23:15; Stop 01/16/17 at 16:41; Status DC Heparin Sodium (Porcine) (Heparin Sodium) 1,750 unit PRN Q6HRS PRN IV FOR UFH LEVEL 0.2 - 0.29; Start 01/15/17 at 23:15; Stop 01/16/17 at 16:41; Status DC Warfarin Sodium (Coumadin Per Pharmacy) 1 each PRN DAILY PRN MC PER PROTOCOL Last administered on 01/16/17 10:20; Start 01/15/17 at 23:15; Stop 01/16/17 at 16:39; Status DC Info (Anti-Coagulation Monitoring By Pharmacy) 1 each PRN DAILY PRN MC SEE COMMENTS Last administered on 01/16/17 10:17; Start 01/15/17 at 23:30; Stop 01/18/17 at 14:31; Status DC Ondansetron HCl (Zofran) 4 mg PRN Q8HRS PRN IV NAUSEA/VOMITING; Start at 23:15; Stop 01/16/17 at 23:14; Status DC Fentanyl Citrate (Fentanyl 2ml Vial) 50 mcg PRN Q2HR PRN IV SEVERE PAIN Last administered on 01/16/17 01:33; Start 01/15/17 at 23:15; Stop 01/16/17 at 02 :47; Status DC Piperacillin Sod/ Tazobactam Sod (Zosyn Per Pharmacy) 1 each PRN DAILY PRN MC SEE COMMENTS; Start 01/15/17 at 23:15; Stop 01/16/17 at 02:54; Status DC Sodium Chloride 1,000 ml @ 150 mls/hr 1X ONCE IV Last administered on 01:34; Start 01/15/17 at 23:45; Stop 01/16/17 at 06:24; Status DC Albuterol Sulfate (Ventolin Neb Soln) 2.5 mg PRN Q3HRS PRN NEB WHEEZING Last administered on 01/16/17 11:24; Start 01/15/17 at 23:30 Morphine Sulfate 2 mg 1X ONCE IV Last administered on 01/15/17 23:47; Start 01/16/17 at 00:00; Stop 01/16/17 at 00:01; Status DC Fentanyl Citrate (Fentanyl 2ml Vial) 75 mcg PRN Q2HR PRN IV SEVERE PAIN Last administered on 01/16/17 13:56; Start 01/16/17 at 02:45; Stop 01/16/17 at 16 :41; Status DC Piperacillin Sod/ Tazobactam Sod (Zosyn Per Pharmacy) 1 each PRN DAILY PRN MC SEE COMMENTS; Start 01/16/17 at 02:45; Stop 01/17/17 at 16:01; Status DC Piperacillin Sod/ Tazobactam Sod (Zosyn) 2.25 gm Q6HRS IVP Last administered on 01/17/17 12:01; Start 01/16/17 at 06:00; Stop 01/17/17 at 16:01; Status DC Info (Anti-Coagulation Monitoring By Pharmacy) 1 each PRN DAILY PRN MC SEE COMMENTS; Start 01/16/17 at 09:45; Status Cancel Warfarin Sodium (Coumadin) 5 mg 1X WARF ONCE PO ; Start 01/16/17 at 16:00; Stop 01/16/17 at 16:39; Status DC Lactobacillus Rhamnosus (Culturelle) 1 cap BID PO Last administered on 09:16; Start 01/16/17 at 21:00 Magnesium Sulfate/ Dextrose 50 ml @ 25 mls/hr 1X ONCE IV Last administered on 01/16/17 12:45; Start 01/16/17 at 11:30; Stop 01/16/17 at 13:29; Status DC Linezolid 300 ml @ 300 mls/hr Q12HR IV Last administered on 01/16/17 20:58; Start 01/16/17 at 12:00; Stop 01/17/17 at 08:14; Status DC Iohexol (Omnipaque 240 Mg/ml) 30 ml 1X ONCE PO ; Start 01/16/17 at 12:00; Stop 01/16/17 at 12:01; Status DC Info (Do NOT chart on this entry -- for MONITORING) 1 each PRN DAILY PRN MC SEE COMMENTS; Start 01/16/17 at 12:00; Stop 01/18/17 at 11:59; Status DC Magnesium Sulfate/ Dextrose 50 ml @ 25 mls/hr PRN DAILY PRN IV for Mag < 1.7 on am labs; Start 01/16/17 at 13:15 Metoprolol Succinate (Toprol Xl) 50 mg BID PO Last administered on 01/21/17 08 :11; Start 01/16/17 at 21:00; Stop 01/21/17 at 08:33; Status DC Sodium Chloride 1,000 ml @ 100 mls/hr Q10H IV Last administered on 01/18/17 05:45; Start 01/16/17 at 13:45; Stop 01/18/17 at 11:44; Status DC Aspirin (Charmaine Aspirin) 325 mg DAILYWBKFT PO Last administered on 01/19/17 08: 35; Start 01/17/17 at 08:00; Stop 01/19/17 at 09:49; Status DC Atorvastatin Calcium (Lipitor) 40 mg QHS PO Last administered on 01/21/17 20: 49; Start 01/16/17 at 21:00 Vitamin D (Vitamin D3) 2,000 unit DAILY PO Last administered on 01/22/17 09:16 ; Start 01/17/17 at 09:00 Clonidine HCl (Catapres) 0.1 mg BID PO Last administered on 01/19/17 08:35; Start 01/16/17 at 21:00; Stop 01/19/17 at 09:52; Status DC Folic Acid (Folic Acid) 1 mg DAILY PO Last administered on 01/22/17 09:16; Start 01/17/17 at 09:00 Loperamide HCl (Imodium) 2 mg Q2H PRN PO diarrhea; Start 01/16/17 at 16:45 Metoprolol Succinate (Toprol Xl) 100 mg BID PO ; Start 01/16/17 at 21:00; Status UNV Gabapentin (Neurontin) 600 mg TID PO Last administered on 01/22/17 09:16; Start 01/16/17 at 21:00 Pantoprazole Sodium (Protonix) 40 mg DAILYAC PO Last administered on 01/22/17 09:15; Start 01/17/17 at 07:30 Insulin Aspart (NovoLOG) 0-9 UNITS TIDWMEALS SQ Last administered on 01/20/17 08:50; Start 01/16/17 at 17:00 Dextrose (Dextrose 50%-Water Syringe) 12.5 gm PRN Q15MIN PRN IV SEE COMMENTS; Start 01/16/17 at 16:45 Dexamethasone Sodium Phosphate (Decadron) 10 mg 1X ONCE IV Last administered on 01/16/17 17:05; Start 01/16/17 at 16:45; Stop 01/16/17 at 16:46; Status DC Dexamethasone Sodium Phosphate (Decadron) 4 mg Q6HRS IV Last administered on 05:58; Start 01/17/17 at 00:00; Stop 01/18/17 at 15:31; Status DC Morphine Sulfate 2 mg PRN Q2HR PRN IV PAIN Last administered on 01/22/17 10:30 ; Start 01/16/17 at 16:45 Oxycodone/ Acetaminophen (Percocet 10/325) 1 tab PRN Q4HRS PRN PO pain Last administered on 01/22/17 03:58; Start 01/16/17 at 16:45 Heparin Sodium (Porcine) (Heparin Sq) 5,000 unit Q8HRS SQ Last administered on 01/22/17 06:18; Start 01/16/17 at 22:00 Diazepam (Valium) 5 mg PRN Q6HRS PRN IV SEIZURES; Start 01/16/17 at 18:30; Status Cancel Diazepam (Valium) 5 mg PRN Q6HRS PRN PO TREMORS Last administered on 01/22/17 03:59; Start 01/16/17 at 18:45 Fentanyl Citrate (Fentanyl 2ml Vial) 100 mcg STK-MED ONCE .ROUTE ; Start at 10:08; Stop 01/17/17 at 10:09; Status DC Midazolam HCl (Versed) 2 mg STK-MED ONCE .ROUTE ; Start 01/17/17 at 10:08; Stop 01/17/17 at 10:09; Status DC Lidocaine/Sodium Bicarbonate (Buffered Lidocaine 1%) 20 ml 1X ONCE IJ Last administered on 01/17/17 10:51; Start 01/17/17 at 10:15; Stop 01/17/17 at 10:16 ; Status DC Midazolam HCl (Versed) 2 mg 1X ONCE IV Last administered on 01/17/17 10:52; Start 01/17/17 at 10:15; Stop 01/17/17 at 10:16; Status DC Fentanyl Citrate (Fentanyl 2ml Vial) 100 mcg 1X ONCE IV Last administered on 01/17/17 10:52; Start 01/17/17 at 10:15; Stop 01/17/17 at 10:16; Status DC Lidocaine/Sodium Bicarbonate (Buffered Lidocaine 1%) 20 ml STK-MED ONCE IJ ; Start 01/17/17 at 10:14; Stop 01/17/17 at 10:15; Status DC Piperacillin Sod/ Tazobactam Sod (Zosyn) 3.375 gm Q6HRS IVP Last administered on 01/18/17 06:00; Start 01/17/17 at 18:00; Stop 01/18/17 at 10:42; Status DC Dexamethasone Sodium Phosphate (Decadron) 4 mg Q12HR IV Last administered on 10:21; Start 01/18/17 at 21:00 Aspirin (Ecotrin) 81 mg DAILYWBKFT PO Last administered on 01/22/17 09:16; Start 01/20/17 at 08:00 Amlodipine Besylate (Norvasc) 10 mg DAILY PO Last administered on 01/22/17 10: 21; Start 01/19/17 at 10:00 Oxycodone HCl (OxyCONTIN) 30 mg Q12HR PO Last administered on 01/22/17 09:16; Start 01/19/17 at 11:45 Senna/Docusate Sodium (Senna Plus) 2 tab DAILY PO Last administered on 09:16; Start 01/19/17 at 12:00 Gadobutrol (Gadavist) 10 mmol 1X ONCE IV ; Start 01/19/17 at 15:45; Stop at 15:46; Status DC Sodium Chloride 1,000 ml @ 75 mls/hr [id number] IV Last administered on 02:12; Start 01/20/17 at 11:15; Stop 01/21/17 at 18:06; Status DC Polyethylene Glycol (miraLAX PACKET) 17 gm DAILY PO Last administered on 10:21; Start 01/20/17 at 15:00 Metoprolol Succinate (Toprol Xl) 50 mg DAILY PO Last administered on 01/22/17 09:21; Start 01/21/17 at 09:00 Active Scripts Active Reported Imodium A-D (Loperamide HCl) 2 Mg Capsule 2 Mg PO Aspirin 325 Mg Tablet 1 Tab PO DAILY Vitamin D3 (Cholecalciferol (Vitamin D3)) 1,000 Unit Tablet 2,000 Unit PO Vicodin Es 7.5-300 Mg Tablet (Hydrocodone Bit/Acetaminophen) 1 Each Tablet 1 Each PO Q6H PRN Humira (Adalimumab) 40 Mg/0.8 Ml Pen.ij.kit 1 Syr SQ Q2WKS Folbic Rf Tablet (B12/Levomefolate Calcium/B-6) 1 Each Tablet 1 Each PO Omeprazole 40 Mg Capsule.dr 1 Cap PO DAILY Cholestyramine Packet (Cholestyramine (With Sugar)) 4 Gm Powd.pack 4 Gm PO Gabapentin 600 Mg Tablet 600 Mg PO TID Folic Acid 1 Mg Tablet 1 Tab PO DAILY Clonidine Hcl 0.1 Mg Tablet 0.1 Mg PO BID Metformin Hcl 1,000 Mg Tablet 1,000 Mg PO BIDWMEALS Atorvastatin Calcium 40 Mg Tablet 1 Tab PO DAILY Metoprolol Succinate ( Xl ) (Metoprolol Succinate) 100 Mg Tab.er.24h 100 Mg PO BID Vitals/I & O Vital Sign - Last 24 Hours 01/21/17 01/21/17 01/21/17 01/21/17 14:48 19:25 20:15 20:50 Temp 98.2 98.5 98.2 98.5 Pulse 74 65 Resp 20 14 18 B/P (MAP) 171/74 (106) 126/75 (92) Pulse Ox 98 98 98 O2 Delivery Nasal Cannula Nasal Cannula Nasal Cannula Nasal Cannula O2 Flow Rate 2.0 2.0 2.0 2.0 01/21/17 01/22/17 01/22/17/6/17 23:33 00:50 03:42 03:58 Temp 98.3 97.7 98.3 97.7 Pulse 64 71 Resp 16 18 16 20 B/P (MAP) 157/75 (102) 162/75 (104) Pulse Ox 97 97 95 95 O2 Delivery BiPAP/CPAP BiPAP/CPAP Room Air Nasal Cannula O2 Flow Rate 2.0 2.0 2.0 01/22/17 01/22/17 01/22/17 01/22/17 05:00 07:40 09:16 09:21 Temp 97.6 97.6 Pulse 72 72 Resp 18 18 22 B/P (MAP) 153/67 (95) 153/67 Pulse Ox 95 96 96 O2 Delivery Nasal Cannula Room Air Nasal Cannula O2 Flow Rate 2.0 2.0 01/22/17 01/22/17 01/22/17 01/22/17 10:15 10:21 10:30 11:00 Temp 98.0 98.0 Pulse 81 81 Resp 21 18 24 B/P (MAP) 143/65 (91) 143/65 Pulse Ox 95 95 95 O2 Delivery Room Air Room Air Room Air JESSICA RAMIREZ III DO Jan 22, 2017 13:20
[2017-01-22 14:16] VITALS: BP 108/59
--- NOTE | 2017-01-22 14:48 | PDOC ---
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 Labs Laboratory Tests Test 01/20/17 16:40 01/20/17 20:48 01/21/17 06:15 01/21/17 07:42 Glucose (Fingerstick) 125 mg/dL (70-99) 112 mg/dL (70-99) 115 mg/dL (70-99) White Blood Count 8.3 x10^3/uL (4.0-11.0) Red Blood Count 2.42 x10^6/uL (4.30-5.70) Hemoglobin 7.9 g/dL (13.0-17.5) Hematocrit 23.5 % (39.0-53.0) Mean Corpuscular Volume 97 fL (79-100) Mean Corpuscular Hemoglobin 33 pg (25-35) Mean Corpuscular Hemoglobin Concent 33 g/dL (31-37) Red Cell Distribution Width 18.0 % (11.5-14.5) Platelet Count 126 x10^3/uL (140-400) Neutrophils (%) (Auto) 79 % (31-73) Lymphocytes (%) (Auto) 9 % (24-48) Monocytes (%) (Auto) 12 % (0-9) Eosinophils (%) (Auto) 0 % (0-3) Basophils (%) (Auto) 0 % (0-3) Neutrophils # (Auto) 6.5 x10^3uL (1.8-7.7) Lymphocytes # (Auto) 0.8 x10^3/uL (1.0-4.8) Monocytes # (Auto) 1.0 x10^3/uL (0.0-1.1) Eosinophils # (Auto) 0.0 x10^3/uL (0.0-0.7) Basophils # (Auto) 0.0 x10^3/uL (0.0-0.2) Sodium Level 140 mmol/L (136-145) Potassium Level 4.3 mmol/L (3.5-5.1) Chloride Level 105 mmol/L (98-107) Carbon Dioxide Level 26 mmol/L (21-32) Anion Gap 9 (6-14) Blood Urea Nitrogen 29 mg/dL (8-26) Creatinine 1.4 mg/dL (0.7-1.3) Estimated GFR (Cockcroft-Gault) 50.0 Glucose Level 126 mg/dL (70-99) Calcium Level 8.4 mg/dL (8.5-10.1) Phosphorus Level 3.3 mg/dL (2.6-4.7) Magnesium Level 1.9 mg/dL (1.8-2.4) Albumin 2.8 g/dL (3.4-5.0) Test 01/21/17 11:31 01/21/17 17:15 01/21/17 20:34 01/22/17 04:35 Glucose (Fingerstick) 122 mg/dL (70-99) 128 mg/dL (70-99) 142 mg/dL (70-99) White Blood Count 8.4 x10^3/uL (4.0-11.0) Red Blood Count 2.50 x10^6/uL (4.30-5.70) Hemoglobin 8.1 g/dL (13.0-17.5) Hematocrit 24.6 % (39.0-53.0) Mean Corpuscular Volume 98 fL (79-100) Mean Corpuscular Hemoglobin 33 pg (25-35) Mean Corpuscular Hemoglobin Concent 33 g/dL (31-37) Red Cell Distribution Width 18.3 % (11.5-14.5) Platelet Count 133 x10^3/uL (140-400) Neutrophils (%) (Auto) 80 % (31-73) Lymphocytes (%) (Auto) 8 % (24-48) Monocytes (%) (Auto) 12 % (0-9) Eosinophils (%) (Auto) 0 % (0-3) Basophils (%) (Auto) 0 % (0-3) Neutrophils # (Auto) 6.7 x10^3uL (1.8-7.7) Lymphocytes # (Auto) 0.7 x10^3/uL (1.0-4.8) Monocytes # (Auto) 1.0 x10^3/uL (0.0-1.1) Eosinophils # (Auto) 0.0 x10^3/uL (0.0-0.7) Basophils # (Auto) 0.0 x10^3/uL (0.0-0.2) Sodium Level 139 mmol/L (136-145) Potassium Level 4.3 mmol/L (3.5-5.1) Chloride Level 104 mmol/L (98-107) Carbon Dioxide Level 28 mmol/L (21-32) Anion Gap 7 (6-14) Blood Urea Nitrogen 28 mg/dL (8-26) Creatinine 1.3 mg/dL (0.7-1.3) Estimated GFR (Cockcroft-Gault) 54.4 Glucose Level 140 mg/dL (70-99) Calcium Level 8.8 mg/dL (8.5-10.1) Phosphorus Level 3.6 mg/dL (2.6-4.7) Albumin 2.8 g/dL (3.4-5.0) Test 01/22/17 07:41 01/22/17 11:49 Glucose (Fingerstick) 126 mg/dL (70-99) 119 mg/dL (70-99) Laboratory Tests Test 01/21/17 17:15 01/21/17 20:34 01/22/17 04:35 01/22/17 07:41 Glucose (Fingerstick) 128 mg/dL (70-99) 142 mg/dL (70-99) 126 mg/dL (70-99) White Blood Count 8.4 x10^3/uL (4.0-11.0) Red Blood Count 2.50 x10^6/uL (4.30-5.70) Hemoglobin 8.1 g/dL (13.0-17.5) Hematocrit 24.6 % (39.0-53.0) Mean Corpuscular Volume 98 fL (79-100) Mean Corpuscular Hemoglobin 33 pg (25-35) Mean Corpuscular Hemoglobin Concent 33 g/dL (31-37) Red Cell Distribution Width 18.3 % (11.5-14.5) Platelet Count 133 x10^3/uL (140-400) Neutrophils (%) (Auto) 80 % (31-73) Lymphocytes (%) (Auto) 8 % (24-48) Monocytes (%) (Auto) 12 % (0-9) Eosinophils (%) (Auto) 0 % (0-3) Basophils (%) (Auto) 0 % (0-3) Neutrophils # (Auto) 6.7 x10^3uL (1.8-7.7) Lymphocytes # (Auto) 0.7 x10^3/uL (1.0-4.8) Monocytes # (Auto) 1.0 x10^3/uL (0.0-1.1) Eosinophils # (Auto) 0.0 x10^3/uL (0.0-0.7) Basophils # (Auto) 0.0 x10^3/uL (0.0-0.2) Sodium Level 139 mmol/L (136-145) Potassium Level 4.3 mmol/L (3.5-5.1) Chloride Level 104 mmol/L (98-107) Carbon Dioxide Level 28 mmol/L (21-32) Anion Gap 7 (6-14) Blood Urea Nitrogen 28 mg/dL (8-26) Creatinine 1.3 mg/dL (0.7-1.3) Estimated GFR (Cockcroft-Gault) 54.4 Glucose Level 140 mg/dL (70-99) Calcium Level 8.8 mg/dL (8.5-10.1) Phosphorus Level 3.6 mg/dL (2.6-4.7) Albumin 2.8 g/dL (3.4-5.0) Test 01/22/17 11:49 Glucose (Fingerstick) 119 mg/dL (70-99) Microbiology 01/15/17 Blood Culture - Final, Complete NO GROWTH AFTER 5 DAYS Medications Current Medications Fentanyl Citrate (Fentanyl 2ml Vial) 50 mcg 1X ONCE IV Last administered on 21:52; Start 01/15/17 at 22:00; Stop 01/15/17 at 22:01; Status DC Sodium Chloride 1,000 ml @ 150 mls/hr 1X ONCE IV Last administered on 22:31; Start 01/15/17 at 22:00; Stop 01/16/17 at 04:39; Status DC Piperacillin Sod/ Tazobactam Sod 3.375 gm/Dextrose 50 ml @ 100 mls/hr 1X ONCE IV Last administered on 01/15/17 23:22; Start 01/15/17 at 23:30; Stop 01/15 at 23:59; Status DC Heparin Sodium (Porcine) (Heparin Sodium) 9,450 unit 1X ONCE IV Last administered on 01/15/17 23:30; Start 01/15/17 at 23:30; Stop 01/16/17 at 16 :41; Status DC Heparin Sodium/ Dextrose 500 ml @ 0 mls/hr CONT PRN IV SEE I/O RECORD Last administered on 01/16/17 16:26; Start 01/15/17 at 23:15; Stop 01/16/17 at 16 :41; Status DC Heparin Sodium (Porcine) (Heparin Sodium) 3,550 unit PRN Q6HRS PRN IV FOR UFH LEVEL LESS THAN 0.2; Start 01/15/17 at 23:15; Stop 01/16/17 at 16:41; Status DC Heparin Sodium (Porcine) (Heparin Sodium) 1,750 unit PRN Q6HRS PRN IV FOR UFH LEVEL 0.2 - 0.29; Start 01/15/17 at 23:15; Stop 01/16/17 at 16:41; Status DC Warfarin Sodium (Coumadin Per Pharmacy) 1 each PRN DAILY PRN MC PER PROTOCOL Last administered on 01/16/17 10:20; Start 01/15/17 at 23:15; Stop 01/16/17 at 16:39; Status DC Info (Anti-Coagulation Monitoring By Pharmacy) 1 each PRN DAILY PRN MC SEE COMMENTS Last administered on 01/16/17 10:17; Start 01/15/17 at 23:30; Stop 01/18/17 at 14:31; Status DC Ondansetron HCl (Zofran) 4 mg PRN Q8HRS PRN IV NAUSEA/VOMITING; Start at 23:15; Stop 01/16/17 at 23:14; Status DC Fentanyl Citrate (Fentanyl 2ml Vial) 50 mcg PRN Q2HR PRN IV SEVERE PAIN Last administered on 01/16/17 01:33; Start 01/15/17 at 23:15; Stop 01/16/17 at 02 :47; Status DC Piperacillin Sod/ Tazobactam Sod (Zosyn Per Pharmacy) 1 each PRN DAILY PRN MC SEE COMMENTS; Start 01/15/17 at 23:15; Stop 01/16/17 at 02:54; Status DC Sodium Chloride 1,000 ml @ 150 mls/hr 1X ONCE IV Last administered on 01:34; Start 01/15/17 at 23:45; Stop 01/16/17 at 06:24; Status DC Albuterol Sulfate (Ventolin Neb Soln) 2.5 mg PRN Q3HRS PRN NEB WHEEZING Last administered on 01/16/17 11:24; Start 01/15/17 at 23:30 Morphine Sulfate 2 mg 1X ONCE IV Last administered on 01/15/17 23:47; Start 01/16/17 at 00:00; Stop 01/16/17 at 00:01; Status DC Fentanyl Citrate (Fentanyl 2ml Vial) 75 mcg PRN Q2HR PRN IV SEVERE PAIN Last administered on 01/16/17 13:56; Start 01/16/17 at 02:45; Stop 01/16/17 at 16 :41; Status DC Piperacillin Sod/ Tazobactam Sod (Zosyn Per Pharmacy) 1 each PRN DAILY PRN MC SEE COMMENTS; Start 01/16/17 at 02:45; Stop 01/17/17 at 16:01; Status DC Piperacillin Sod/ Tazobactam Sod (Zosyn) 2.25 gm Q6HRS IVP Last administered on 01/17/17 12:01; Start 01/16/17 at 06:00; Stop 01/17/17 at 16:01; Status DC Info (Anti-Coagulation Monitoring By Pharmacy) 1 each PRN DAILY PRN MC SEE COMMENTS; Start 01/16/17 at 09:45; Status Cancel Warfarin Sodium (Coumadin) 5 mg 1X WARF ONCE PO ; Start 01/16/17 at 16:00; Stop 01/16/17 at 16:39; Status DC Lactobacillus Rhamnosus (Culturelle) 1 cap BID PO Last administered on 09:16; Start 01/16/17 at 21:00 Magnesium Sulfate/ Dextrose 50 ml @ 25 mls/hr 1X ONCE IV Last administered on 01/16/17 12:45; Start 01/16/17 at 11:30; Stop 01/16/17 at 13:29; Status DC Linezolid 300 ml @ 300 mls/hr Q12HR IV Last administered on 01/16/17 20:58; Start 01/16/17 at 12:00; Stop 01/17/17 at 08:14; Status DC Iohexol (Omnipaque 240 Mg/ml) 30 ml 1X ONCE PO ; Start 01/16/17 at 12:00; Stop 01/16/17 at 12:01; Status DC Info (Do NOT chart on this entry -- for MONITORING) 1 each PRN DAILY PRN MC SEE COMMENTS; Start 01/16/17 at 12:00; Stop 01/18/17 at 11:59; Status DC Magnesium Sulfate/ Dextrose 50 ml @ 25 mls/hr PRN DAILY PRN IV for Mag < 1.7 on am labs; Start 01/16/17 at 13:15 Metoprolol Succinate (Toprol Xl) 50 mg BID PO Last administered on 01/21/17 08 :11; Start 01/16/17 at 21:00; Stop 01/21/17 at 08:33; Status DC Sodium Chloride 1,000 ml @ 100 mls/hr Q10H IV Last administered on 01/18/17 05:45; Start 01/16/17 at 13:45; Stop 01/18/17 at 11:44; Status DC Aspirin (Charmaine Aspirin) 325 mg DAILYWBKFT PO Last administered on 01/19/17 08: 35; Start 01/17/17 at 08:00; Stop 01/19/17 at 09:49; Status DC Atorvastatin Calcium (Lipitor) 40 mg QHS PO Last administered on 01/21/17 20: 49; Start 01/16/17 at 21:00 Vitamin D (Vitamin D3) 2,000 unit DAILY PO Last administered on 01/22/17 09:16 ; Start 01/17/17 at 09:00 Clonidine HCl (Catapres) 0.1 mg BID PO Last administered on 01/19/17 08:35; Start 01/16/17 at 21:00; Stop 01/19/17 at 09:52; Status DC Folic Acid (Folic Acid) 1 mg DAILY PO Last administered on 01/22/17 09:16; Start 01/17/17 at 09:00 Loperamide HCl (Imodium) 2 mg Q2H PRN PO diarrhea; Start 01/16/17 at 16:45 Metoprolol Succinate (Toprol Xl) 100 mg BID PO ; Start 01/16/17 at 21:00; Status UNV Gabapentin (Neurontin) 600 mg TID PO Last administered on 01/22/17 09:16; Start 01/16/17 at 21:00 Pantoprazole Sodium (Protonix) 40 mg DAILYAC PO Last administered on 01/22/17 09:15; Start 01/17/17 at 07:30 Insulin Aspart (NovoLOG) 0-9 UNITS TIDWMEALS SQ Last administered on 01/20/17 08:50; Start 01/16/17 at 17:00 Dextrose (Dextrose 50%-Water Syringe) 12.5 gm PRN Q15MIN PRN IV SEE COMMENTS; Start 01/16/17 at 16:45 Dexamethasone Sodium Phosphate (Decadron) 10 mg 1X ONCE IV Last administered on 01/16/17 17:05; Start 01/16/17 at 16:45; Stop 01/16/17 at 16:46; Status DC Dexamethasone Sodium Phosphate (Decadron) 4 mg Q6HRS IV Last administered on 05:58; Start 01/17/17 at 00:00; Stop 01/18/17 at 15:31; Status DC Morphine Sulfate 2 mg PRN Q2HR PRN IV PAIN Last administered on 01/22/17 10:30 ; Start 01/16/17 at 16:45 Oxycodone/ Acetaminophen (Percocet 10/325) 1 tab PRN Q4HRS PRN PO pain Last administered on 01/22/17 03:58; Start 01/16/17 at 16:45 Heparin Sodium (Porcine) (Heparin Sq) 5,000 unit Q8HRS SQ Last administered on 01/22/17 06:18; Start 01/16/17 at 22:00 Diazepam (Valium) 5 mg PRN Q6HRS PRN IV SEIZURES; Start 01/16/17 at 18:30; Status Cancel Diazepam (Valium) 5 mg PRN Q6HRS PRN PO TREMORS Last administered on 01/22/17 03:59; Start 01/16/17 at 18:45 Fentanyl Citrate (Fentanyl 2ml Vial) 100 mcg STK-MED ONCE .ROUTE ; Start at 10:08; Stop 01/17/17 at 10:09; Status DC Midazolam HCl (Versed) 2 mg STK-MED ONCE .ROUTE ; Start 01/17/17 at 10:08; Stop 01/17/17 at 10:09; Status DC Lidocaine/Sodium Bicarbonate (Buffered Lidocaine 1%) 20 ml 1X ONCE IJ Last administered on 01/17/17 10:51; Start 01/17/17 at 10:15; Stop 01/17/17 at 10:16 ; Status DC Midazolam HCl (Versed) 2 mg 1X ONCE IV Last administered on 01/17/17 10:52; Start 01/17/17 at 10:15; Stop 01/17/17 at 10:16; Status DC Fentanyl Citrate (Fentanyl 2ml Vial) 100 mcg 1X ONCE IV Last administered on 01/17/17 10:52; Start 01/17/17 at 10:15; Stop 01/17/17 at 10:16; Status DC Lidocaine/Sodium Bicarbonate (Buffered Lidocaine 1%) 20 ml STK-MED ONCE IJ ; Start 01/17/17 at 10:14; Stop 01/17/17 at 10:15; Status DC Piperacillin Sod/ Tazobactam Sod (Zosyn) 3.375 gm Q6HRS IVP Last administered on 01/18/17 06:00; Start 01/17/17 at 18:00; Stop 01/18/17 at 10:42; Status DC Dexamethasone Sodium Phosphate (Decadron) 4 mg Q12HR IV Last administered on 10:21; Start 01/18/17 at 21:00 Aspirin (Ecotrin) 81 mg DAILYWBKFT PO Last administered on 01/22/17 09:16; Start 01/20/17 at 08:00 Amlodipine Besylate (Norvasc) 10 mg DAILY PO Last administered on 01/22/17 10: 21; Start 01/19/17 at 10:00 Oxycodone HCl (OxyCONTIN) 30 mg Q12HR PO Last administered on 01/22/17 09:16; Start 01/19/17 at 11:45 Senna/Docusate Sodium (Senna Plus) 2 tab DAILY PO Last administered on 09:16; Start 01/19/17 at 12:00 Gadobutrol (Gadavist) 10 mmol 1X ONCE IV ; Start 01/19/17 at 15:45; Stop at 15:46; Status DC Sodium Chloride 1,000 ml @ 75 mls/hr [id number] IV Last administered on 02:12; Start 01/20/17 at 11:15; Stop 01/21/17 at 18:06; Status DC Polyethylene Glycol (miraLAX PACKET) 17 gm DAILY PO Last administered on 10:21; Start 01/20/17 at 15:00 Metoprolol Succinate (Toprol Xl) 50 mg DAILY PO Last administered on 01/22/17 09:21; Start 01/21/17 at 09:00 Active Scripts Active Reported Imodium A-D (Loperamide HCl) 2 Mg Capsule 2 Mg PO Aspirin 325 Mg Tablet 1 Tab PO DAILY Vitamin D3 (Cholecalciferol (Vitamin D3)) 1,000 Unit Tablet 2,000 Unit PO Vicodin Es 7.5-300 Mg Tablet (Hydrocodone Bit/Acetaminophen) 1 Each Tablet 1 Each PO Q6H PRN Humira (Adalimumab) 40 Mg/0.8 Ml Pen.ij.kit 1 Syr SQ Q2WKS Folbic Rf Tablet (B12/Levomefolate Calcium/B-6) 1 Each Tablet 1 Each PO Omeprazole 40 Mg Capsule.dr 1 Cap PO DAILY Cholestyramine Packet (Cholestyramine (With Sugar)) 4 Gm Powd.pack 4 Gm PO Gabapentin 600 Mg Tablet 600 Mg PO TID Folic Acid 1 Mg Tablet 1 Tab PO DAILY Clonidine Hcl 0.1 Mg Tablet 0.1 Mg PO BID Metformin Hcl 1,000 Mg Tablet 1,000 Mg PO BIDWMEALS Atorvastatin Calcium 40 Mg Tablet 1 Tab PO DAILY Metoprolol Succinate ( Xl ) (Metoprolol Succinate) 100 Mg Tab.er.24h 100 Mg PO BID Vitals/I & O Vital Sign - Last 24 Hours 01/21/17 01/21/17 01/21/17 01/21/17 14:48 19:25 20:15 20:50 Temp 98.2 98.5 98.2 98.5 Pulse 74 65 Resp 20 14 18 B/P (MAP) 171/74 (106) 126/75 (92) Pulse Ox 98 98 98 O2 Delivery Nasal Cannula Nasal Cannula Nasal Cannula Nasal Cannula O2 Flow Rate 2.0 2.0 2.0 2.0 01/21/17 01/22/17 01/22/17 01/22/17 23:33 03:42 03:58 05:00 Temp 98.3 97.7 98.3 97.7 Pulse 64 71 Resp 16 16 20 18 B/P (MAP) 157/75 (102) 162/75 (104) Pulse Ox 97 95 95 95 O2 Delivery BiPAP/CPAP Room Air Nasal Cannula Nasal Cannula O2 Flow Rate 2.0 2.0 2.0 01/22/17 01/22/17 01/22/17 01/22/17 07:40 08:00 09:16 09:21 Temp 97.6 97.6 Pulse 72 72 Resp 18 22 B/P (MAP) 153/67 (95) 153/67 Pulse Ox 96 96 O2 Delivery Room Air Nasal Cannula Nasal Cannula O2 Flow Rate 2.0 2.0 01/22/17 01/22/17 01/22/17 01/22/17 10:15 10:21 10:30 11:00 Temp 98.0 98.0 Pulse 81 81 Resp 21 18 24 B/P (MAP) 143/65 (91) 143/65 Pulse Ox 95 95 95 O2 Delivery Room Air Room Air Room Air 01/22/17 01/22/17 13:16 14:16 Temp 98.3 98.3 Pulse 68 Resp 17 20 B/P (MAP) 108/59 (75) Pulse Ox 95 99 O2 Delivery Nasal Cannula Room Air O2 Flow Rate 3.0 SOULEYMANE PAULSON APRN Jan 22, 2017 14:48
--- NOTE | 2017-01-22 16:49 | PDOC ---
PROGRESS NOTES Subjective Subjective HPI - Osteolytic bone lesions ROS - has back pain Objective Objective Vital Signs Date Time Temp Pulse Resp B/P (MAP) Pulse Ox O2 Delivery O2 Flow Rate FiO2 01/22/17 15:47 18 96 Room Air 01/22/17 14:16 98.3 68 108/59 (75) 98.3 01/22/17 13:16 3.0 Physical Exam Heart: Normal S1, Normal S2 General: Alert, Oriented X3 Lungs: Clear to auscultation Neuro: Normal speech Psych/Mental Status: Mental status NL Assessment Assessment Problems Medical Problems: (1) Elevated d-dimer Status: Acute (2) Elevated serum creatinine Status: Acute (3) Hypoxia Status: Acute (4) Lactic acidosis Status: Acute (5) 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 Osteolytic bone lesions. This is clinically concerning for metastatic focus. He also has multiple other lesions in the spine. Since the CT chest, abdomen and pelvis did not reveal a clear primary focus, he had biopsy of the L3 vertebral lesion - done 01/17/17, non-diagnostic. I d/w IR, he feels that this may just be an acute fracture. MRI reviewed. Surgery planned 01/23/17. PSA normal. The patient has already been started on Decadron 4 mg q. 6 hours. Appreciate consult Radiation Oncology. Bone scan does not reveal uptake and hence multiple myeloma is suspected. Plan skeletal survey and BM bx. 2. Left renal lesion, u/s ultrasound of the kidney does not reveal malignancy. 3. Bone lesions. 4. Anemia. This is likely secondary to malignancy. I will continue to monitor. Comment Review of Relevant I have reviewed the following items bernadine (where applicable) has been applied. Labs Laboratory Tests Test 01/20/17 20:48 01/21/17 06:15 01/21/17 07:42 01/21/17 11:31 Glucose (Fingerstick) 112 mg/dL (70-99) 115 mg/dL (70-99) 122 mg/dL (70-99) White Blood Count 8.3 x10^3/uL (4.0-11.0) Red Blood Count 2.42 x10^6/uL (4.30-5.70) Hemoglobin 7.9 g/dL (13.0-17.5) Hematocrit 23.5 % (39.0-53.0) Mean Corpuscular Volume 97 fL (79-100) Mean Corpuscular Hemoglobin 33 pg (25-35) Mean Corpuscular Hemoglobin Concent 33 g/dL (31-37) Red Cell Distribution Width 18.0 % (11.5-14.5) Platelet Count 126 x10^3/uL (140-400) Neutrophils (%) (Auto) 79 % (31-73) Lymphocytes (%) (Auto) 9 % (24-48) Monocytes (%) (Auto) 12 % (0-9) Eosinophils (%) (Auto) 0 % (0-3) Basophils (%) (Auto) 0 % (0-3) Neutrophils # (Auto) 6.5 x10^3uL (1.8-7.7) Lymphocytes # (Auto) 0.8 x10^3/uL (1.0-4.8) Monocytes # (Auto) 1.0 x10^3/uL (0.0-1.1) Eosinophils # (Auto) 0.0 x10^3/uL (0.0-0.7) Basophils # (Auto) 0.0 x10^3/uL (0.0-0.2) Sodium Level 140 mmol/L (136-145) Potassium Level 4.3 mmol/L (3.5-5.1) Chloride Level 105 mmol/L (98-107) Carbon Dioxide Level 26 mmol/L (21-32) Anion Gap 9 (6-14) Blood Urea Nitrogen 29 mg/dL (8-26) Creatinine 1.4 mg/dL (0.7-1.3) Estimated GFR (Cockcroft-Gault) 50.0 Glucose Level 126 mg/dL (70-99) Calcium Level 8.4 mg/dL (8.5-10.1) Phosphorus Level 3.3 mg/dL (2.6-4.7) Magnesium Level 1.9 mg/dL (1.8-2.4) Albumin 2.8 g/dL (3.4-5.0) Test 01/21/17 17:15 01/21/17 20:34 01/22/17 04:35 01/22/17 07:41 Glucose (Fingerstick) 128 mg/dL (70-99) 142 mg/dL (70-99) 126 mg/dL (70-99) White Blood Count 8.4 x10^3/uL (4.0-11.0) Red Blood Count 2.50 x10^6/uL (4.30-5.70) Hemoglobin 8.1 g/dL (13.0-17.5) Hematocrit 24.6 % (39.0-53.0) Mean Corpuscular Volume 98 fL (79-100) Mean Corpuscular Hemoglobin 33 pg (25-35) Mean Corpuscular Hemoglobin Concent 33 g/dL (31-37) Red Cell Distribution Width 18.3 % (11.5-14.5) Platelet Count 133 x10^3/uL (140-400) Neutrophils (%) (Auto) 80 % (31-73) Lymphocytes (%) (Auto) 8 % (24-48) Monocytes (%) (Auto) 12 % (0-9) Eosinophils (%) (Auto) 0 % (0-3) Basophils (%) (Auto) 0 % (0-3) Neutrophils # (Auto) 6.7 x10^3uL (1.8-7.7) Lymphocytes # (Auto) 0.7 x10^3/uL (1.0-4.8) Monocytes # (Auto) 1.0 x10^3/uL (0.0-1.1) Eosinophils # (Auto) 0.0 x10^3/uL (0.0-0.7) Basophils # (Auto) 0.0 x10^3/uL (0.0-0.2) Sodium Level 139 mmol/L (136-145) Potassium Level 4.3 mmol/L (3.5-5.1) Chloride Level 104 mmol/L (98-107) Carbon Dioxide Level 28 mmol/L (21-32) Anion Gap 7 (6-14) Blood Urea Nitrogen 28 mg/dL (8-26) Creatinine 1.3 mg/dL (0.7-1.3) Estimated GFR (Cockcroft-Gault) 54.4 Glucose Level 140 mg/dL (70-99) Calcium Level 8.8 mg/dL (8.5-10.1) Phosphorus Level 3.6 mg/dL (2.6-4.7) Albumin 2.8 g/dL (3.4-5.0) Test 01/22/17 11:49 Glucose (Fingerstick) 119 mg/dL (70-99) Laboratory Tests Test 01/21/17 17:15 01/21/17 20:34 01/22/17 04:35 01/22/17 07:41 Glucose (Fingerstick) 128 mg/dL (70-99) 142 mg/dL (70-99) 126 mg/dL (70-99) White Blood Count 8.4 x10^3/uL (4.0-11.0) Red Blood Count 2.50 x10^6/uL (4.30-5.70) Hemoglobin 8.1 g/dL (13.0-17.5) Hematocrit 24.6 % (39.0-53.0) Mean Corpuscular Volume 98 fL (79-100) Mean Corpuscular Hemoglobin 33 pg (25-35) Mean Corpuscular Hemoglobin Concent 33 g/dL (31-37) Red Cell Distribution Width 18.3 % (11.5-14.5) Platelet Count 133 x10^3/uL (140-400) Neutrophils (%) (Auto) 80 % (31-73) Lymphocytes (%) (Auto) 8 % (24-48) Monocytes (%) (Auto) 12 % (0-9) Eosinophils (%) (Auto) 0 % (0-3) Basophils (%) (Auto) 0 % (0-3) Neutrophils # (Auto) 6.7 x10^3uL (1.8-7.7) Lymphocytes # (Auto) 0.7 x10^3/uL (1.0-4.8) Monocytes # (Auto) 1.0 x10^3/uL (0.0-1.1) Eosinophils # (Auto) 0.0 x10^3/uL (0.0-0.7) Basophils # (Auto) 0.0 x10^3/uL (0.0-0.2) Sodium Level 139 mmol/L (136-145) Potassium Level 4.3 mmol/L (3.5-5.1) Chloride Level 104 mmol/L (98-107) Carbon Dioxide Level 28 mmol/L (21-32) Anion Gap 7 (6-14) Blood Urea Nitrogen 28 mg/dL (8-26) Creatinine 1.3 mg/dL (0.7-1.3) Estimated GFR (Cockcroft-Gault) 54.4 Glucose Level 140 mg/dL (70-99) Calcium Level 8.8 mg/dL (8.5-10.1) Phosphorus Level 3.6 mg/dL (2.6-4.7) Albumin 2.8 g/dL (3.4-5.0) Test 01/22/17 11:49 Glucose (Fingerstick) 119 mg/dL (70-99) Microbiology 01/15/17 Blood Culture - Final, Complete NO GROWTH AFTER 5 DAYS Medications Current Medications Fentanyl Citrate (Fentanyl 2ml Vial) 50 mcg 1X ONCE IV Last administered on 21:52; Start 01/15/17 at 22:00; Stop 01/15/17 at 22:01; Status DC Sodium Chloride 1,000 ml @ 150 mls/hr 1X ONCE IV Last administered on 22:31; Start 01/15/17 at 22:00; Stop 01/16/17 at 04:39; Status DC Piperacillin Sod/ Tazobactam Sod 3.375 gm/Dextrose 50 ml @ 100 mls/hr 1X ONCE IV Last administered on 01/15/17 23:22; Start 01/15/17 at 23:30; Stop 01/15 at 23:59; Status DC Heparin Sodium (Porcine) (Heparin Sodium) 9,450 unit 1X ONCE IV Last administered on 01/15/17 23:30; Start 01/15/17 at 23:30; Stop 01/16/17 at 16 :41; Status DC Heparin Sodium/ Dextrose 500 ml @ 0 mls/hr CONT PRN IV SEE I/O RECORD Last administered on 01/16/17 16:26; Start 01/15/17 at 23:15; Stop 01/16/17 at 16 :41; Status DC Heparin Sodium (Porcine) (Heparin Sodium) 3,550 unit PRN Q6HRS PRN IV FOR UFH LEVEL LESS THAN 0.2; Start 01/15/17 at 23:15; Stop 01/16/17 at 16:41; Status DC Heparin Sodium (Porcine) (Heparin Sodium) 1,750 unit PRN Q6HRS PRN IV FOR UFH LEVEL 0.2 - 0.29; Start 01/15/17 at 23:15; Stop 01/16/17 at 16:41; Status DC Warfarin Sodium (Coumadin Per Pharmacy) 1 each PRN DAILY PRN MC PER PROTOCOL Last administered on 01/16/17 10:20; Start 01/15/17 at 23:15; Stop 01/16/17 at 16:39; Status DC Info (Anti-Coagulation Monitoring By Pharmacy) 1 each PRN DAILY PRN MC SEE COMMENTS Last administered on 01/16/17 10:17; Start 01/15/17 at 23:30; Stop 01/18/17 at 14:31; Status DC Ondansetron HCl (Zofran) 4 mg PRN Q8HRS PRN IV NAUSEA/VOMITING; Start at 23:15; Stop 01/16/17 at 23:14; Status DC Fentanyl Citrate (Fentanyl 2ml Vial) 50 mcg PRN Q2HR PRN IV SEVERE PAIN Last administered on 01/16/17 01:33; Start 01/15/17 at 23:15; Stop 01/16/17 at 02 :47; Status DC Piperacillin Sod/ Tazobactam Sod (Zosyn Per Pharmacy) 1 each PRN DAILY PRN MC SEE COMMENTS; Start 01/15/17 at 23:15; Stop 01/16/17 at 02:54; Status DC Sodium Chloride 1,000 ml @ 150 mls/hr 1X ONCE IV Last administered on 01:34; Start 01/15/17 at 23:45; Stop 01/16/17 at 06:24; Status DC Albuterol Sulfate (Ventolin Neb Soln) 2.5 mg PRN Q3HRS PRN NEB WHEEZING Last administered on 01/16/17 11:24; Start 01/15/17 at 23:30 Morphine Sulfate 2 mg 1X ONCE IV Last administered on 01/15/17 23:47; Start 01/16/17 at 00:00; Stop 01/16/17 at 00:01; Status DC Fentanyl Citrate (Fentanyl 2ml Vial) 75 mcg PRN Q2HR PRN IV SEVERE PAIN Last administered on 01/16/17 13:56; Start 01/16/17 at 02:45; Stop 01/16/17 at 16 :41; Status DC Piperacillin Sod/ Tazobactam Sod (Zosyn Per Pharmacy) 1 each PRN DAILY PRN MC SEE COMMENTS; Start 01/16/17 at 02:45; Stop 01/17/17 at 16:01; Status DC Piperacillin Sod/ Tazobactam Sod (Zosyn) 2.25 gm Q6HRS IVP Last administered on 01/17/17 12:01; Start 01/16/17 at 06:00; Stop 01/17/17 at 16:01; Status DC Info (Anti-Coagulation Monitoring By Pharmacy) 1 each PRN DAILY PRN MC SEE COMMENTS; Start 01/16/17 at 09:45; Status Cancel Warfarin Sodium (Coumadin) 5 mg 1X WARF ONCE PO ; Start 01/16/17 at 16:00; Stop 01/16/17 at 16:39; Status DC Lactobacillus Rhamnosus (Culturelle) 1 cap BID PO Last administered on 09:16; Start 01/16/17 at 21:00 Magnesium Sulfate/ Dextrose 50 ml @ 25 mls/hr 1X ONCE IV Last administered on 01/16/17 12:45; Start 01/16/17 at 11:30; Stop 01/16/17 at 13:29; Status DC Linezolid 300 ml @ 300 mls/hr Q12HR IV Last administered on 01/16/17 20:58; Start 01/16/17 at 12:00; Stop 01/17/17 at 08:14; Status DC Iohexol (Omnipaque 240 Mg/ml) 30 ml 1X ONCE PO ; Start 01/16/17 at 12:00; Stop 01/16/17 at 12:01; Status DC Info (Do NOT chart on this entry -- for MONITORING) 1 each PRN DAILY PRN MC SEE COMMENTS; Start 01/16/17 at 12:00; Stop 01/18/17 at 11:59; Status DC Magnesium Sulfate/ Dextrose 50 ml @ 25 mls/hr PRN DAILY PRN IV for Mag < 1.7 on am labs; Start 01/16/17 at 13:15 Metoprolol Succinate (Toprol Xl) 50 mg BID PO Last administered on 01/21/17 08 :11; Start 01/16/17 at 21:00; Stop 01/21/17 at 08:33; Status DC Sodium Chloride 1,000 ml @ 100 mls/hr Q10H IV Last administered on 01/18/17 05:45; Start 01/16/17 at 13:45; Stop 01/18/17 at 11:44; Status DC Aspirin (Charmaine Aspirin) 325 mg DAILYWBKFT PO Last administered on 01/19/17 08: 35; Start 01/17/17 at 08:00; Stop 01/19/17 at 09:49; Status DC Atorvastatin Calcium (Lipitor) 40 mg QHS PO Last administered on 01/21/17 20: 49; Start 01/16/17 at 21:00 Vitamin D (Vitamin D3) 2,000 unit DAILY PO Last administered on 01/22/17 09:16 ; Start 01/17/17 at 09:00 Clonidine HCl (Catapres) 0.1 mg BID PO Last administered on 01/19/17 08:35; Start 01/16/17 at 21:00; Stop 01/19/17 at 09:52; Status DC Folic Acid (Folic Acid) 1 mg DAILY PO Last administered on 01/22/17 09:16; Start 01/17/17 at 09:00 Loperamide HCl (Imodium) 2 mg Q2H PRN PO diarrhea; Start 01/16/17 at 16:45 Metoprolol Succinate (Toprol Xl) 100 mg BID PO ; Start 01/16/17 at 21:00; Status UNV Gabapentin (Neurontin) 600 mg TID PO Last administered on 01/22/17 15:47; Start 01/16/17 at 21:00 Pantoprazole Sodium (Protonix) 40 mg DAILYAC PO Last administered on 01/22/17 09:15; Start 01/17/17 at 07:30 Insulin Aspart (NovoLOG) 0-9 UNITS TIDWMEALS SQ Last administered on 01/20/17 08:50; Start 01/16/17 at 17:00 Dextrose (Dextrose 50%-Water Syringe) 12.5 gm PRN Q15MIN PRN IV SEE COMMENTS; Start 01/16/17 at 16:45 Dexamethasone Sodium Phosphate (Decadron) 10 mg 1X ONCE IV Last administered on 01/16/17 17:05; Start 01/16/17 at 16:45; Stop 01/16/17 at 16:46; Status DC Dexamethasone Sodium Phosphate (Decadron) 4 mg Q6HRS IV Last administered on 05:58; Start 01/17/17 at 00:00; Stop 01/18/17 at 15:31; Status DC Morphine Sulfate 2 mg PRN Q2HR PRN IV PAIN Last administered on 01/22/17 10:30 ; Start 01/16/17 at 16:45 Oxycodone/ Acetaminophen (Percocet 10/325) 1 tab PRN Q4HRS PRN PO pain Last administered on 01/22/17 15:47; Start 01/16/17 at 16:45 Heparin Sodium (Porcine) (Heparin Sq) 5,000 unit Q8HRS SQ Last administered on 01/22/17 15:51; Start 01/16/17 at 22:00 Diazepam (Valium) 5 mg PRN Q6HRS PRN IV SEIZURES; Start 01/16/17 at 18:30; Status Cancel Diazepam (Valium) 5 mg PRN Q6HRS PRN PO TREMORS Last administered on 01/22/17 03:59; Start 01/16/17 at 18:45 Fentanyl Citrate (Fentanyl 2ml Vial) 100 mcg STK-MED ONCE .ROUTE ; Start at 10:08; Stop 01/17/17 at 10:09; Status DC Midazolam HCl (Versed) 2 mg STK-MED ONCE .ROUTE ; Start 01/17/17 at 10:08; Stop 01/17/17 at 10:09; Status DC Lidocaine/Sodium Bicarbonate (Buffered Lidocaine 1%) 20 ml 1X ONCE IJ Last administered on 01/17/17 10:51; Start 01/17/17 at 10:15; Stop 01/17/17 at 10:16 ; Status DC Midazolam HCl (Versed) 2 mg 1X ONCE IV Last administered on 01/17/17 10:52; Start 01/17/17 at 10:15; Stop 01/17/17 at 10:16; Status DC Fentanyl Citrate (Fentanyl 2ml Vial) 100 mcg 1X ONCE IV Last administered on 01/17/17 10:52; Start 01/17/17 at 10:15; Stop 01/17/17 at 10:16; Status DC Lidocaine/Sodium Bicarbonate (Buffered Lidocaine 1%) 20 ml STK-MED ONCE IJ ; Start 01/17/17 at 10:14; Stop 01/17/17 at 10:15; Status DC Piperacillin Sod/ Tazobactam Sod (Zosyn) 3.375 gm Q6HRS IVP Last administered on 01/18/17 06:00; Start 01/17/17 at 18:00; Stop 01/18/17 at 10:42; Status DC Dexamethasone Sodium Phosphate (Decadron) 4 mg Q12HR IV Last administered on 10:21; Start 01/18/17 at 21:00 Aspirin (Ecotrin) 81 mg DAILYWBKFT PO Last administered on 01/22/17 09:16; Start 01/20/17 at 08:00 Amlodipine Besylate (Norvasc) 10 mg DAILY PO Last administered on 01/22/17 10: 21; Start 01/19/17 at 10:00 Oxycodone HCl (OxyCONTIN) 30 mg Q12HR PO Last administered on 01/22/17 09:16; Start 01/19/17 at 11:45 Senna/Docusate Sodium (Senna Plus) 2 tab DAILY PO Last administered on 09:16; Start 01/19/17 at 12:00 Gadobutrol (Gadavist) 10 mmol 1X ONCE IV ; Start 01/19/17 at 15:45; Stop at 15:46; Status DC Sodium Chloride 1,000 ml @ 75 mls/hr [id number] IV Last administered on 02:12; Start 01/20/17 at 11:15; Stop 01/21/17 at 18:06; Status DC Polyethylene Glycol (miraLAX PACKET) 17 gm DAILY PO Last administered on 10:21; Start 01/20/17 at 15:00 Metoprolol Succinate (Toprol Xl) 50 mg DAILY PO Last administered on 01/22/17 09:21; Start 01/21/17 at 09:00 Active Scripts Active Reported Imodium A-D (Loperamide HCl) 2 Mg Capsule 2 Mg PO Aspirin 325 Mg Tablet 1 Tab PO DAILY Vitamin D3 (Cholecalciferol (Vitamin D3)) 1,000 Unit Tablet 2,000 Unit PO Vicodin Es 7.5-300 Mg Tablet (Hydrocodone Bit/Acetaminophen) 1 Each Tablet 1 Each PO Q6H PRN Humira (Adalimumab) 40 Mg/0.8 Ml Pen.ij.kit 1 Syr SQ Q2WKS Folbic Rf Tablet (B12/Levomefolate Calcium/B-6) 1 Each Tablet 1 Each PO Omeprazole 40 Mg Capsule. 1 Cap PO DAILY Cholestyramine Packet (Cholestyramine (With Sugar)) 4 Gm Powd.pack 4 Gm PO Gabapentin 600 Mg Tablet 600 Mg PO TID Folic Acid 1 Mg Tablet 1 Tab PO DAILY Clonidine Hcl 0.1 Mg Tablet 0.1 Mg PO BID Metformin Hcl 1,000 Mg Tablet 1,000 Mg PO BIDWMEALS Atorvastatin Calcium 40 Mg Tablet 1 Tab PO DAILY Metoprolol Succinate ( Xl ) (Metoprolol Succinate) 100 Mg Tab.er.24h 100 Mg PO BID Vitals/I & O Vital Sign - Last 24 Hours 01/21/17 01/21/17 01/21/17 01/21/17 19:25 20:15 20:50 23:33 Temp 98.5 98.3 98.5 98.3 Pulse 65 64 Resp 14 18 16 B/P (MAP) 126/75 (92) 157/75 (102) Pulse Ox 98 98 97 O2 Delivery Nasal Cannula Nasal Cannula Nasal Cannula BiPAP/CPAP O2 Flow Rate 2.0 2.0 2.0 2.0 01/22/17 01/22/17 01/22/17 01/22/17 03:42 03:58 05:00 07:40 Temp 97.7 97.6 97.7 97.6 Pulse 71 72 Resp 16 20 18 18 B/P (MAP) 162/75 (104) 153/67 (95) Pulse Ox 95 95 95 96 O2 Delivery Room Air Nasal Cannula Nasal Cannula Room Air O2 Flow Rate 2.0 2.0 01/22/17 01/22/17 01/22/17 01/22/17 08:00 09:16 09:21 10:15 Temp 98.0 98.0 Pulse 72 81 Resp 22 21 B/P (MAP) 153/67 143/65 (91) Pulse Ox 96 95 O2 Delivery Nasal Cannula Nasal Cannula Room Air O2 Flow Rate 2.0 2.0 01/22/17 01/22/17 01/22/17 01/22/17 10:21 10:30 11:00 13:16 Pulse 81 Resp 18 24 17 B/P (MAP) 143/65 Pulse Ox 95 95 95 O2 Delivery Room Air Room Air Nasal Cannula O2 Flow Rate 3.0 01/22/17 01/22/17 14:16 15:47 Temp 98.3 98.3 Pulse 68 Resp 20 18 B/P (MAP) 108/59 (75) Pulse Ox 99 96 O2 Delivery Room Air Room Air PINEDA FIELDS MD Jan 22, 2017 16:49
[2017-01-22 19:05] VITALS: BP 137/62
[2017-01-22] MEDS: ATORVASTATIN CALCIUM 40 MG TABLET. PO SCH (20:59)
[2017-01-22 23:05] VITALS: BP 122/57
[2017-01-23] MEDS: oxyCODONE/APAP 10/325 1 TAB TABLET PO PRN ×3 (00:59→16:28)
[2017-01-23] MEDS: MORPHINE SULFATE 2 MG/ML DISP.SYRIN. IV PRN ×2 (01:02→13:49)
[2017-01-23 03:05] VITALS: BP 108/55
[2017-01-23] MEDS: HEPARIN PF for SUB-Q USE 5,000 UNIT/0.5 ML VIAL. SQ SCH (06:00)
[2017-01-23 06:10] LABS: BASO % 0 % (0-3); EOS % 0 % (0-3); HEMATOCRIT 24.8 % (39.0-53.0); HEMOGLOBIN 8.3 g/dL (13.0-17.5); LYMPH # 0.6 x10^3/uL (1.0-4.8); LYMPH % 7 % (24-48); MEAN CORPUSCULAR HEMOGLOBIN 32 pg (25-35); MEAN CORPUSCULAR HGB CONC 33 g/dL (31-37); MEAN CORPUSCULAR VOLUME 97 fL (79-100); MONO % 12 % (0-9); NEUT % 81 % (31-73); PLATELET COUNT 154 x10^3/uL (140-400); RED BLOOD COUNT 2.56 x10^6/uL (4.30-5.70); RED CELL DISTRIBUTION WIDTH 18.3 % (11.5-14.5); WHITE BLOOD COUNT 9.4 x10^3/uL (4.0-11.0)
[2017-01-23 06:37] LABS: ALBUMIN 2.6 g/dL (3.4-5.0); CALCIUM 8.8 mg/dL (8.5-10.1); CREATININE 1.3 mg/dL (0.7-1.3); GFR 54.4; PHOSPHORUS 4.7 mg/dL (2.6-4.7); POTASSIUM 4.3 mmol/L (3.5-5.1)
[2017-01-23 07:29] VITALS: BP 179/79
[2017-01-23] MEDS: INSULIN ASPART 300 UNITS/3 ML INSULN.PEN SQ SCH ×3 (08:00→17:00)
[2017-01-23] MEDS: FOLIC ACID 1 MG TABLET. PO SCH (08:53)
[2017-01-23] MEDS: SENNOSIDES/DOCUSATE 8.6/50MG TABLET. PO SCH (08:53)
[2017-01-23] MEDS: GABAPENTIN 300 MG CAPSULE. PO SCH ×3 (08:53→21:06)
[2017-01-23] MEDS: CHOLECALCIFEROL (VITAMIN D3) 1,000 UNIT TABLET PO SCH (08:53)
[2017-01-23] MEDS: oxyCODONE ER 15 MG TAB.ER.12H PO SCH ×2 (08:54→21:06)
[2017-01-23] MEDS: ASPIRIN ENTERIC COATED 81 MG TABLET.DR. PO SCH (08:54)
[2017-01-23] MEDS: LACTOBACILLUS RHAMNOSUS GG 1 CAPSULE. PO SCH ×2 (08:54→21:06)
[2017-01-23] MEDS: PANTOPRAZOLE 40 MG TABLET.DR. PO SCH (08:55)
[2017-01-23] MEDS: amLODIPine BESYLATE 10 MG TABLET PO SCH (08:57)
[2017-01-23] MEDS: METOPROLOL SUCC 24HR ER 50 MG TAB.ER.24H. PO SCH (08:58)
[2017-01-23] MEDS: DEXAMETHASONE SOD PHOS 4 MG/ML VIAL IV SCH ×2 (08:58→21:06)
[2017-01-23] MEDS: POLYETHYLENE GLYCOL 3350 17 GM PACKET. PO SCH (09:00)
[2017-01-23 10:51] VITALS: BP 159/72
[2017-01-23 11:29] LABS: ALPHA 1 0.3 g/dL (0.0-0.4); ALPHA 2 0.7 g/dL (0.4-1.0); BETA 0.7 g/dL (0.7-1.3); M-SPIKE Not Observed g/dL (Not Observed); PROTEIN TOTAL 5.9 g/dL (6.0-8.5)
--- NOTE | 2017-01-23 11:41 | PDOC ---
PROGRESS NOTES Subjective Subjective HPI - Bone lesions. He also has multiple other lesions in the spine. 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 Bone lesions. He also has multiple other lesions in the spine. Benign vs mets. Bone scan does not reveal uptake and hence multiple myeloma is suspected. Myeloma labs pending. Bone survey 01/18/17: Sclerotic foci in the cervical spine. These are likely benign in view of the lack of abnormal uptake on the current bone scan. Distracted Chance type fracture of the L3 vertebral body, better demonstrated on previous CT images. Since the CT chest, abdomen and pelvis did not reveal a clear primary focus, he had biopsy of the L3 vertebral lesion - done 01/17/17, non-diagnostic. I d/w IR, he feels that this may just be an acute fracture. MRI reviewed. There is autofusion of L1-L2 and L3-L5 with a distracted fracture extending through the anterior, middle and posterior columns of the L3 vertebrae as well as the posterior elements at the L3 vertebral level compatible with a Chance fracture. There is disruption of the anterior and posterior longitudinal ligaments as well as the posterior ligamentous complex. There is an epidural hematoma resulting in severe spinal canal stenosis and likely cauda equina syndrome. Surgery planned 01/24/17. PSA normal. 2. Left renal lesion, u/s ultrasound of the kidney does not reveal malignancy. 3. Anemia. This is likely secondary to malignancy. I will continue to monitor. Comment Review of Relevant I have reviewed the following items bernadine (where applicable) has been applied. Labs Laboratory Tests Test 01/21/17 17:15 01/21/17 20:34 01/22/17 04:35 01/22/17 07:41 Glucose (Fingerstick) 128 mg/dL (70-99) 142 mg/dL (70-99) 126 mg/dL (70-99) White Blood Count 8.4 x10^3/uL (4.0-11.0) Red Blood Count 2.50 x10^6/uL (4.30-5.70) Hemoglobin 8.1 g/dL (13.0-17.5) Hematocrit 24.6 % (39.0-53.0) Mean Corpuscular Volume 98 fL (79-100) Mean Corpuscular Hemoglobin 33 pg (25-35) Mean Corpuscular Hemoglobin Concent 33 g/dL (31-37) Red Cell Distribution Width 18.3 % (11.5-14.5) Platelet Count 133 x10^3/uL (140-400) Neutrophils (%) (Auto) 80 % (31-73) Lymphocytes (%) (Auto) 8 % (24-48) Monocytes (%) (Auto) 12 % (0-9) Eosinophils (%) (Auto) 0 % (0-3) Basophils (%) (Auto) 0 % (0-3) Neutrophils # (Auto) 6.7 x10^3uL (1.8-7.7) Lymphocytes # (Auto) 0.7 x10^3/uL (1.0-4.8) Monocytes # (Auto) 1.0 x10^3/uL (0.0-1.1) Eosinophils # (Auto) 0.0 x10^3/uL (0.0-0.7) Basophils # (Auto) 0.0 x10^3/uL (0.0-0.2) Sodium Level 139 mmol/L (136-145) Potassium Level 4.3 mmol/L (3.5-5.1) Chloride Level 104 mmol/L (98-107) Carbon Dioxide Level 28 mmol/L (21-32) Anion Gap 7 (6-14) Blood Urea Nitrogen 28 mg/dL (8-26) Creatinine 1.3 mg/dL (0.7-1.3) Estimated GFR (Cockcroft-Gault) 54.4 Glucose Level 140 mg/dL (70-99) Calcium Level 8.8 mg/dL (8.5-10.1) Phosphorus Level 3.6 mg/dL (2.6-4.7) Albumin 2.8 g/dL (3.4-5.0) Test 01/22/17 11:49 01/22/17 16:43 01/22/17 20:54 01/23/17 05:50 Glucose (Fingerstick) 119 mg/dL (70-99) 167 mg/dL (70-99) 118 mg/dL (70-99) White Blood Count 9.4 x10^3/uL (4.0-11.0) Red Blood Count 2.56 x10^6/uL (4.30-5.70) Hemoglobin 8.3 g/dL (13.0-17.5) Hematocrit 24.8 % (39.0-53.0) Mean Corpuscular Volume 97 fL (79-100) Mean Corpuscular Hemoglobin 32 pg (25-35) Mean Corpuscular Hemoglobin Concent 33 g/dL (31-37) Red Cell Distribution Width 18.3 % (11.5-14.5) Platelet Count 154 x10^3/uL (140-400) Neutrophils (%) (Auto) 81 % (31-73) Lymphocytes (%) (Auto) 7 % (24-48) Monocytes (%) (Auto) 12 % (0-9) Eosinophils (%) (Auto) 0 % (0-3) Basophils (%) (Auto) 0 % (0-3) Neutrophils # (Auto) 7.6 x10^3uL (1.8-7.7) Lymphocytes # (Auto) 0.6 x10^3/uL (1.0-4.8) Monocytes # (Auto) 1.1 x10^3/uL (0.0-1.1) Eosinophils # (Auto) 0.0 x10^3/uL (0.0-0.7) Basophils # (Auto) 0.0 x10^3/uL (0.0-0.2) Sodium Level 139 mmol/L (136-145) Potassium Level 4.3 mmol/L (3.5-5.1) Chloride Level 103 mmol/L (98-107) Carbon Dioxide Level 29 mmol/L (21-32) Anion Gap 7 (6-14) Blood Urea Nitrogen 31 mg/dL (8-26) Creatinine 1.3 mg/dL (0.7-1.3) Estimated GFR (Cockcroft-Gault) 54.4 Glucose Level 144 mg/dL (70-99) Calcium Level 8.8 mg/dL (8.5-10.1) Phosphorus Level 4.7 mg/dL (2.6-4.7) Albumin 2.6 g/dL (3.4-5.0) Test 01/23/17 07:42 Glucose (Fingerstick) 129 mg/dL (70-99) Laboratory Tests Test 01/22/17 11:49 01/22/17 16:43 01/22/17 20:54 01/23/17 05:50 Glucose (Fingerstick) 119 mg/dL (70-99) 167 mg/dL (70-99) 118 mg/dL (70-99) White Blood Count 9.4 x10^3/uL (4.0-11.0) Red Blood Count 2.56 x10^6/uL (4.30-5.70) Hemoglobin 8.3 g/dL (13.0-17.5) Hematocrit 24.8 % (39.0-53.0) Mean Corpuscular Volume 97 fL (79-100) Mean Corpuscular Hemoglobin 32 pg (25-35) Mean Corpuscular Hemoglobin Concent 33 g/dL (31-37) Red Cell Distribution Width 18.3 % (11.5-14.5) Platelet Count 154 x10^3/uL (140-400) Neutrophils (%) (Auto) 81 % (31-73) Lymphocytes (%) (Auto) 7 % (24-48) Monocytes (%) (Auto) 12 % (0-9) Eosinophils (%) (Auto) 0 % (0-3) Basophils (%) (Auto) 0 % (0-3) Neutrophils # (Auto) 7.6 x10^3uL (1.8-7.7) Lymphocytes # (Auto) 0.6 x10^3/uL (1.0-4.8) Monocytes # (Auto) 1.1 x10^3/uL (0.0-1.1) Eosinophils # (Auto) 0.0 x10^3/uL (0.0-0.7) Basophils # (Auto) 0.0 x10^3/uL (0.0-0.2) Sodium Level 139 mmol/L (136-145) Potassium Level 4.3 mmol/L (3.5-5.1) Chloride Level 103 mmol/L (98-107) Carbon Dioxide Level 29 mmol/L (21-32) Anion Gap 7 (6-14) Blood Urea Nitrogen 31 mg/dL (8-26) Creatinine 1.3 mg/dL (0.7-1.3) Estimated GFR (Cockcroft-Gault) 54.4 Glucose Level 144 mg/dL (70-99) Calcium Level 8.8 mg/dL (8.5-10.1) Phosphorus Level 4.7 mg/dL (2.6-4.7) Albumin 2.6 g/dL (3.4-5.0) Test 01/23/17 07:42 Glucose (Fingerstick) 129 mg/dL (70-99) Microbiology 01/15/17 Blood Culture - Final, Complete NO GROWTH AFTER 5 DAYS Medications Current Medications Fentanyl Citrate (Fentanyl 2ml Vial) 50 mcg 1X ONCE IV Last administered on 21:52; Start 01/15/17 at 22:00; Stop 01/15/17 at 22:01; Status DC Sodium Chloride 1,000 ml @ 150 mls/hr 1X ONCE IV Last administered on 22:31; Start 01/15/17 at 22:00; Stop 01/16/17 at 04:39; Status DC Piperacillin Sod/ Tazobactam Sod 3.375 gm/Dextrose 50 ml @ 100 mls/hr 1X ONCE IV Last administered on 01/15/17 23:22; Start 01/15/17 at 23:30; Stop 01/15 at 23:59; Status DC Heparin Sodium (Porcine) (Heparin Sodium) 9,450 unit 1X ONCE IV Last administered on 01/15/17 23:30; Start 01/15/17 at 23:30; Stop 01/16/17 at 16 :41; Status DC Heparin Sodium/ Dextrose 500 ml @ 0 mls/hr CONT PRN IV SEE I/O RECORD Last administered on 01/16/17 16:26; Start 01/15/17 at 23:15; Stop 01/16/17 at 16 :41; Status DC Heparin Sodium (Porcine) (Heparin Sodium) 3,550 unit PRN Q6HRS PRN IV FOR UFH LEVEL LESS THAN 0.2; Start 01/15/17 at 23:15; Stop 01/16/17 at 16:41; Status DC Heparin Sodium (Porcine) (Heparin Sodium) 1,750 unit PRN Q6HRS PRN IV FOR UFH LEVEL 0.2 - 0.29; Start 01/15/17 at 23:15; Stop 01/16/17 at 16:41; Status DC Warfarin Sodium (Coumadin Per Pharmacy) 1 each PRN DAILY PRN MC PER PROTOCOL Last administered on 01/16/17 10:20; Start 01/15/17 at 23:15; Stop 01/16/17 at 16:39; Status DC Info (Anti-Coagulation Monitoring By Pharmacy) 1 each PRN DAILY PRN MC SEE COMMENTS Last administered on 01/16/17 10:17; Start 01/15/17 at 23:30; Stop 01/18/17 at 14:31; Status DC Ondansetron HCl (Zofran) 4 mg PRN Q8HRS PRN IV NAUSEA/VOMITING; Start at 23:15; Stop 01/16/17 at 23:14; Status DC Fentanyl Citrate (Fentanyl 2ml Vial) 50 mcg PRN Q2HR PRN IV SEVERE PAIN Last administered on 01/16/17 01:33; Start 01/15/17 at 23:15; Stop 01/16/17 at 02 :47; Status DC Piperacillin Sod/ Tazobactam Sod (Zosyn Per Pharmacy) 1 each PRN DAILY PRN MC SEE COMMENTS; Start 01/15/17 at 23:15; Stop 01/16/17 at 02:54; Status DC Sodium Chloride 1,000 ml @ 150 mls/hr 1X ONCE IV Last administered on 01:34; Start 01/15/17 at 23:45; Stop 01/16/17 at 06:24; Status DC Albuterol Sulfate (Ventolin Neb Soln) 2.5 mg PRN Q3HRS PRN NEB WHEEZING Last administered on 01/16/17 11:24; Start 01/15/17 at 23:30 Morphine Sulfate 2 mg 1X ONCE IV Last administered on 01/15/17 23:47; Start 01/16/17 at 00:00; Stop 01/16/17 at 00:01; Status DC Fentanyl Citrate (Fentanyl 2ml Vial) 75 mcg PRN Q2HR PRN IV SEVERE PAIN Last administered on 01/16/17 13:56; Start 01/16/17 at 02:45; Stop 01/16/17 at 16 :41; Status DC Piperacillin Sod/ Tazobactam Sod (Zosyn Per Pharmacy) 1 each PRN DAILY PRN MC SEE COMMENTS; Start 01/16/17 at 02:45; Stop 01/17/17 at 16:01; Status DC Piperacillin Sod/ Tazobactam Sod (Zosyn) 2.25 gm Q6HRS IVP Last administered on 01/17/17 12:01; Start 01/16/17 at 06:00; Stop 01/17/17 at 16:01; Status DC Info (Anti-Coagulation Monitoring By Pharmacy) 1 each PRN DAILY PRN MC SEE COMMENTS; Start 01/16/17 at 09:45; Status Cancel Warfarin Sodium (Coumadin) 5 mg 1X WARF ONCE PO ; Start 01/16/17 at 16:00; Stop 01/16/17 at 16:39; Status DC Lactobacillus Rhamnosus (Culturelle) 1 cap BID PO Last administered on 08:54; Start 01/16/17 at 21:00 Magnesium Sulfate/ Dextrose 50 ml @ 25 mls/hr 1X ONCE IV Last administered on 01/16/17 12:45; Start 01/16/17 at 11:30; Stop 01/16/17 at 13:29; Status DC Linezolid 300 ml @ 300 mls/hr Q12HR IV Last administered on 01/16/17 20:58; Start 01/16/17 at 12:00; Stop 01/17/17 at 08:14; Status DC Iohexol (Omnipaque 240 Mg/ml) 30 ml 1X ONCE PO ; Start 01/16/17 at 12:00; Stop 01/16/17 at 12:01; Status DC Info (Do NOT chart on this entry -- for MONITORING) 1 each PRN DAILY PRN MC SEE COMMENTS; Start 01/16/17 at 12:00; Stop 01/18/17 at 11:59; Status DC Magnesium Sulfate/ Dextrose 50 ml @ 25 mls/hr PRN DAILY PRN IV for Mag < 1.7 on am labs; Start 01/16/17 at 13:15 Metoprolol Succinate (Toprol Xl) 50 mg BID PO Last administered on 01/21/17 08 :11; Start 01/16/17 at 21:00; Stop 01/21/17 at 08:33; Status DC Sodium Chloride 1,000 ml @ 100 mls/hr Q10H IV Last administered on 01/18/17 05:45; Start 01/16/17 at 13:45; Stop 01/18/17 at 11:44; Status DC Aspirin (Charmaine Aspirin) 325 mg DAILYWBKFT PO Last administered on 01/19/17 08: 35; Start 01/17/17 at 08:00; Stop 01/19/17 at 09:49; Status DC Atorvastatin Calcium (Lipitor) 40 mg QHS PO Last administered on 01/22/17 20: 59; Start 01/16/17 at 21:00 Vitamin D (Vitamin D3) 2,000 unit DAILY PO Last administered on 01/23/17 08:53 ; Start 01/17/17 at 09:00 Clonidine HCl (Catapres) 0.1 mg BID PO Last administered on 01/19/17 08:35; Start 01/16/17 at 21:00; Stop 01/19/17 at 09:52; Status DC Folic Acid (Folic Acid) 1 mg DAILY PO Last administered on 01/23/17 08:53; Start 01/17/17 at 09:00 Loperamide HCl (Imodium) 2 mg Q2H PRN PO diarrhea; Start 01/16/17 at 16:45 Metoprolol Succinate (Toprol Xl) 100 mg BID PO ; Start 01/16/17 at 21:00; Status UNV Gabapentin (Neurontin) 600 mg TID PO Last administered on 01/23/17 08:53; Start 01/16/17 at 21:00 Pantoprazole Sodium (Protonix) 40 mg DAILYAC PO Last administered on 01/23/17 08:55; Start 01/17/17 at 07:30 Insulin Aspart (NovoLOG) 0-9 UNITS TIDWMEALS SQ Last administered on 01/22/17 17:00; Start 01/16/17 at 17:00 Dextrose (Dextrose 50%-Water Syringe) 12.5 gm PRN Q15MIN PRN IV SEE COMMENTS; Start 01/16/17 at 16:45 Dexamethasone Sodium Phosphate (Decadron) 10 mg 1X ONCE IV Last administered on 01/16/17 17:05; Start 01/16/17 at 16:45; Stop 01/16/17 at 16:46; Status DC Dexamethasone Sodium Phosphate (Decadron) 4 mg Q6HRS IV Last administered on 05:58; Start 01/17/17 at 00:00; Stop 01/18/17 at 15:31; Status DC Morphine Sulfate 2 mg PRN Q2HR PRN IV PAIN Last administered on 01/23/17 01:02 ; Start 01/16/17 at 16:45 Oxycodone/ Acetaminophen (Percocet 10/325) 1 tab PRN Q4HRS PRN PO pain Last administered on 01/23/17 06:01; Start 01/16/17 at 16:45 Heparin Sodium (Porcine) (Heparin Sq) 5,000 unit Q8HRS SQ Last administered on 01/23/17 06:00; Start 01/16/17 at 22:00 Diazepam (Valium) 5 mg PRN Q6HRS PRN IV SEIZURES; Start 01/16/17 at 18:30; Status Cancel Diazepam (Valium) 5 mg PRN Q6HRS PRN PO TREMORS Last administered on 01/22/17 03:59; Start 01/16/17 at 18:45 Fentanyl Citrate (Fentanyl 2ml Vial) 100 mcg STK-MED ONCE .ROUTE ; Start at 10:08; Stop 01/17/17 at 10:09; Status DC Midazolam HCl (Versed) 2 mg STK-MED ONCE .ROUTE ; Start 01/17/17 at 10:08; Stop 01/17/17 at 10:09; Status DC Lidocaine/Sodium Bicarbonate (Buffered Lidocaine 1%) 20 ml 1X ONCE IJ Last administered on 01/17/17 10:51; Start 01/17/17 at 10:15; Stop 01/17/17 at 10:16 ; Status DC Midazolam HCl (Versed) 2 mg 1X ONCE IV Last administered on 01/17/17 10:52; Start 01/17/17 at 10:15; Stop 01/17/17 at 10:16; Status DC Fentanyl Citrate (Fentanyl 2ml Vial) 100 mcg 1X ONCE IV Last administered on 01/17/17 10:52; Start 01/17/17 at 10:15; Stop 01/17/17 at 10:16; Status DC Lidocaine/Sodium Bicarbonate (Buffered Lidocaine 1%) 20 ml STK-MED ONCE IJ ; Start 01/17/17 at 10:14; Stop 01/17/17 at 10:15; Status DC Piperacillin Sod/ Tazobactam Sod (Zosyn) 3.375 gm Q6HRS IVP Last administered on 01/18/17 06:00; Start 01/17/17 at 18:00; Stop 01/18/17 at 10:42; Status DC Dexamethasone Sodium Phosphate (Decadron) 4 mg Q12HR IV Last administered on 08:58; Start 01/18/17 at 21:00 Aspirin (Ecotrin) 81 mg DAILYWBKFT PO Last administered on 01/23/17 08:54; Start 01/20/17 at 08:00 Amlodipine Besylate (Norvasc) 10 mg DAILY PO Last administered on 01/23/17 08: 57; Start 01/19/17 at 10:00 Oxycodone HCl (OxyCONTIN) 30 mg Q12HR PO Last administered on 01/23/17 08:54; Start 01/19/17 at 11:45 Senna/Docusate Sodium (Senna Plus) 2 tab DAILY PO Last administered on 08:53; Start 01/19/17 at 12:00 Gadobutrol (Gadavist) 10 mmol 1X ONCE IV ; Start 01/19/17 at 15:45; Stop at 15:46; Status DC Sodium Chloride 1,000 ml @ 75 mls/hr [id number] IV Last administered on 02:12; Start 01/20/17 at 11:15; Stop 01/21/17 at 18:06; Status DC Polyethylene Glycol (miraLAX PACKET) 17 gm DAILY PO Last administered on 10:21; Start 01/20/17 at 15:00 Metoprolol Succinate (Toprol Xl) 50 mg DAILY PO Last administered on 11/7/17at 08:58; Start 01/21/17 at 09:00 Bacitracin 88433 unit/Sodium Chloride 1,000 ml @ 1,000 mls/hr 1X PERIOP ONCE IRR ; Start 01/24/17 at 06:00; Stop 01/24/17 at 06:59 Ondansetron HCl (Zofran) 4 mg PRN Q6HRS PRN IV NAUSEA/VOMITING; Start 01/24/17 at 07:00; Stop 01/25/17 at 06:59 Fentanyl Citrate (Fentanyl 2ml Vial) 25 mcg PRN Q5MIN PRN IV MILD PAIN; Start 01/24/17 at 07:00; Stop 01/25/17 at 06:59 Fentanyl Citrate (Fentanyl 2ml Vial) 50 mcg PRN Q5MIN PRN IV MODERATE PAIN; Start 01/24/17 at 07:00; Stop 01/25/17 at 06:59 Morphine Sulfate 1 mg PRN Q10MIN PRN IV SEVERE PAIN; Start 01/24/17 at 07:00; Stop 01/25/17 at 06:59 Ringer's Solution 1,000 ml @ 30 mls/hr Q24H IV ; Start 01/24/17 at 07:00; Stop 01/24/17 at 18:59 Lidocaine HCl (Xylocaine-Mpf 1% Vial) 2 ml PRN 1X PRN ID IV START; Start at 07:00; Stop 01/25/17 at 06:59 Hydromorphone HCl (Dilaudid) 0.5 mg PRN Q10MIN PRN IV SEV PAIN, Second choice; Start 01/24/17 at 07:00; Stop 01/25/17 at 06:59 Prochlorperazine Edisylate (Compazine) 5 mg PACU PRN PRN IV NAUSEA, MRX1; Start 01/24/17 at 07:00; Stop 01/25/17 at 06:59 Active Scripts Active Reported Imodium A-D (Loperamide HCl) 2 Mg Capsule 2 Mg PO Aspirin 325 Mg Tablet 1 Tab PO DAILY Vitamin D3 (Cholecalciferol (Vitamin D3)) 1,000 Unit Tablet 2,000 Unit PO Vicodin Es 7.5-300 Mg Tablet (Hydrocodone Bit/Acetaminophen) 1 Each Tablet 1 Each PO Q6H PRN Humira (Adalimumab) 40 Mg/0.8 Ml Pen.ij.kit 1 Syr SQ Q2WKS Folbic Rf Tablet (B12/Levomefolate Calcium/B-6) 1 Each Tablet 1 Each PO Omeprazole 40 Mg Capsule.dr 1 Cap PO DAILY Cholestyramine Packet (Cholestyramine (With Sugar)) 4 Gm Powd.pack 4 Gm PO Gabapentin 600 Mg Tablet 600 Mg PO TID Folic Acid 1 Mg Tablet 1 Tab PO DAILY Clonidine Hcl 0.1 Mg Tablet 0.1 Mg PO BID Metformin Hcl 1,000 Mg Tablet 1,000 Mg PO BIDWMEALS Atorvastatin Calcium 40 Mg Tablet 1 Tab PO DAILY Metoprolol Succinate ( Xl ) (Metoprolol Succinate) 100 Mg Tab.er.24h 100 Mg PO BID Vitals/I & O Vital Sign - Last 24 Hours 01/22/17 01/22/17 01/22/17 01/22/17 13:16 14:16 15:47 16:47 Temp 98.3 98.3 Pulse 68 Resp 17 20 18 18 B/P (MAP) 108/59 (75) Pulse Ox 99 96 O2 Delivery Room Air Room Air 01/22/17 01/22/17 01/22/17 01/22/17 19:05 20:00 21:02 23:05 Temp 97.3 97.9 97.3 97.9 Pulse 68 60 Resp 18 17 B/P (MAP) 137/62 (87) 122/57 (78) Pulse Ox 96 96 99 O2 Delivery Nasal Cannula Room Air Room Air BiPAP/CPAP O2 Flow Rate 2.0 2.0 01/23/17 01/23/17 01/23/17 01/23/17 00:59 01:02 01:02 01:32 Pulse Ox 99 99 99 99 O2 Delivery BiPAP/CPAP Nasal Cannula Nasal Cannula Room Air O2 Flow Rate 2.0 2.0 2.0 01/23/17 01/23/17 01/23/17 01/23/17 03:05 06:01 07:01 07:29 Temp 98.2 98.0 98.2 98.0 Pulse 58 75 Resp 16 21 B/P (MAP) 108/55 (72) 179/79 (112) Pulse Ox 97 97 97 99 O2 Delivery Nasal Cannula Nasal Cannula Room Air Nasal Cannula O2 Flow Rate 2.0 2.0 2.0 2.0 01/23/17 01/23/17 01/23/177/17 08:54 08:57 08:58 10:51 Temp 97.6 97.6 Pulse 61 67 69 Resp 22 B/P (MAP) 162/71 162/71 159/72 (101) Pulse Ox 99 O2 Delivery Room Air Nasal Cannula O2 Flow Rate 2.0 2.0 PINEDA FIELDS MD Jan 23, 2017 11:41
--- NOTE | 2017-01-23 12:02 | PDOC ---
PROGRESS NOTES Chief Complaint Chief Complaint L3 spinal mass: highly suspicious for malignancy. Back pain Syncope Renal mass vs complex cyst ANDREINA on CKD DM2 Anemia Dyspnea PAF CAD: hx mult stents Crohn's Alcoholism Azotemia History of Present Illness History of Present Illness This is a pleasant 71 yr old gentleman who was admitted to the hospital with a cc of syncope, hypoxia and elevated D-dimer. Today he was examined at bedside. He is alert, oriented and no in a cute distress. Pt has a nasal cannula in place. Slight hematuria, probably due to de la paz trauma. Family member was present in the room. Today's labs show azotemia- nephrology is following. The pt. is currently being followed by Nepho re: renal insufficiency, ID re: positive lactic acid, Cardio re: CHF, Heme and Onc re: spinal cancer, Radiation Onc re: Spinal cancer, Neurosurg re:L3 malignant lesion. Pt. will have surgery with instrumental fusion tomorrow in am, per family. For now, continue to monitor. Vitals Vitals Vital Signs Date Time Temp Pulse Resp B/P (MAP) Pulse Ox O2 Delivery O2 Flow Rate FiO2 01/23/17 10:51 97.6 69 22 159/72 (101) 99 Nasal Cannula 2.0 97.6 Physical Exam General: Alert, Oriented X3 Heart: Normal S1, Normal S2 Lungs: Clear Abdomen: Normal bowel sounds, Soft, No tenderness Extremities: No clubbing, No edema Skin: No rashes Labs LABS Laboratory Tests Test 01/22/17 16:43 01/22/17 20:54 01/23/17 05:50 01/23/17 07:42 Glucose (Fingerstick) 167 mg/dL (70-99) 118 mg/dL (70-99) 129 mg/dL (70-99) White Blood Count 9.4 x10^3/uL (4.0-11.0) Red Blood Count 2.56 x10^6/uL (4.30-5.70) Hemoglobin 8.3 g/dL (13.0-17.5) Hematocrit 24.8 % (39.0-53.0) Mean Corpuscular Volume 97 fL (79-100) Mean Corpuscular Hemoglobin 32 pg (25-35) Mean Corpuscular Hemoglobin Concent 33 g/dL (31-37) Red Cell Distribution Width 18.3 % (11.5-14.5) Platelet Count 154 x10^3/uL (140-400) Neutrophils (%) (Auto) 81 % (31-73) Lymphocytes (%) (Auto) 7 % (24-48) Monocytes (%) (Auto) 12 % (0-9) Eosinophils (%) (Auto) 0 % (0-3) Basophils (%) (Auto) 0 % (0-3) Neutrophils # (Auto) 7.6 x10^3uL (1.8-7.7) Lymphocytes # (Auto) 0.6 x10^3/uL (1.0-4.8) Monocytes # (Auto) 1.1 x10^3/uL (0.0-1.1) Eosinophils # (Auto) 0.0 x10^3/uL (0.0-0.7) Basophils # (Auto) 0.0 x10^3/uL (0.0-0.2) Sodium Level 139 mmol/L (136-145) Potassium Level 4.3 mmol/L (3.5-5.1) Chloride Level 103 mmol/L (98-107) Carbon Dioxide Level 29 mmol/L (21-32) Anion Gap 7 (6-14) Blood Urea Nitrogen 31 mg/dL (8-26) Creatinine 1.3 mg/dL (0.7-1.3) Estimated GFR (Cockcroft-Gault) 54.4 Glucose Level 144 mg/dL (70-99) Calcium Level 8.8 mg/dL (8.5-10.1) Phosphorus Level 4.7 mg/dL (2.6-4.7) Albumin 2.6 g/dL (3.4-5.0) Review of Systems Review of Systems fatigue and weakness Assessment and Plan Assessmemt and Plan Problems Medical Problems: (1) Elevated d-dimer Status: Acute (2) Elevated serum creatinine Status: Acute (3) Hypoxia Status: Acute (4) Lactic acidosis Status: Acute (5) 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 Back pain Syncope Renal mass vs complex cyst ANDREINA on CKD DM2 Anemia Dyspnea PAF CAD: hx mult stents Crohn's Alcoholism Azotemia Plan: Awaiting surgery tomorrow PT/OT Recheck labs Continue meds Awaiting specialists input Problems: Comment Review of Relevant I have reviewed the following items bernadine (where applicable) has been applied. Labs Laboratory Tests Test 01/21/17 17:15 01/21/17 20:34 01/22/17 04:35 01/22/17 07:41 Glucose (Fingerstick) 128 mg/dL (70-99) 142 mg/dL (70-99) 126 mg/dL (70-99) White Blood Count 8.4 x10^3/uL (4.0-11.0) Red Blood Count 2.50 x10^6/uL (4.30-5.70) Hemoglobin 8.1 g/dL (13.0-17.5) Hematocrit 24.6 % (39.0-53.0) Mean Corpuscular Volume 98 fL (79-100) Mean Corpuscular Hemoglobin 33 pg (25-35) Mean Corpuscular Hemoglobin Concent 33 g/dL (31-37) Red Cell Distribution Width 18.3 % (11.5-14.5) Platelet Count 133 x10^3/uL (140-400) Neutrophils (%) (Auto) 80 % (31-73) Lymphocytes (%) (Auto) 8 % (24-48) Monocytes (%) (Auto) 12 % (0-9) Eosinophils (%) (Auto) 0 % (0-3) Basophils (%) (Auto) 0 % (0-3) Neutrophils # (Auto) 6.7 x10^3uL (1.8-7.7) Lymphocytes # (Auto) 0.7 x10^3/uL (1.0-4.8) Monocytes # (Auto) 1.0 x10^3/uL (0.0-1.1) Eosinophils # (Auto) 0.0 x10^3/uL (0.0-0.7) Basophils # (Auto) 0.0 x10^3/uL (0.0-0.2) Sodium Level 139 mmol/L (136-145) Potassium Level 4.3 mmol/L (3.5-5.1) Chloride Level 104 mmol/L (98-107) Carbon Dioxide Level 28 mmol/L (21-32) Anion Gap 7 (6-14) Blood Urea Nitrogen 28 mg/dL (8-26) Creatinine 1.3 mg/dL (0.7-1.3) Estimated GFR (Cockcroft-Gault) 54.4 Glucose Level 140 mg/dL (70-99) Calcium Level 8.8 mg/dL (8.5-10.1) Phosphorus Level 3.6 mg/dL (2.6-4.7) Albumin 2.8 g/dL (3.4-5.0) Test 01/22/17 11:49 01/22/17 16:43 01/22/17 20:54 01/23/17 05:50 Glucose (Fingerstick) 119 mg/dL (70-99) 167 mg/dL (70-99) 118 mg/dL (70-99) White Blood Count 9.4 x10^3/uL (4.0-11.0) Red Blood Count 2.56 x10^6/uL (4.30-5.70) Hemoglobin 8.3 g/dL (13.0-17.5) Hematocrit 24.8 % (39.0-53.0) Mean Corpuscular Volume 97 fL (79-100) Mean Corpuscular Hemoglobin 32 pg (25-35) Mean Corpuscular Hemoglobin Concent 33 g/dL (31-37) Red Cell Distribution Width 18.3 % (11.5-14.5) Platelet Count 154 x10^3/uL (140-400) Neutrophils (%) (Auto) 81 % (31-73) Lymphocytes (%) (Auto) 7 % (24-48) Monocytes (%) (Auto) 12 % (0-9) Eosinophils (%) (Auto) 0 % (0-3) Basophils (%) (Auto) 0 % (0-3) Neutrophils # (Auto) 7.6 x10^3uL (1.8-7.7) Lymphocytes # (Auto) 0.6 x10^3/uL (1.0-4.8) Monocytes # (Auto) 1.1 x10^3/uL (0.0-1.1) Eosinophils # (Auto) 0.0 x10^3/uL (0.0-0.7) Basophils # (Auto) 0.0 x10^3/uL (0.0-0.2) Sodium Level 139 mmol/L (136-145) Potassium Level 4.3 mmol/L (3.5-5.1) Chloride Level 103 mmol/L (98-107) Carbon Dioxide Level 29 mmol/L (21-32) Anion Gap 7 (6-14) Blood Urea Nitrogen 31 mg/dL (8-26) Creatinine 1.3 mg/dL (0.7-1.3) Estimated GFR (Cockcroft-Gault) 54.4 Glucose Level 144 mg/dL (70-99) Calcium Level 8.8 mg/dL (8.5-10.1) Phosphorus Level 4.7 mg/dL (2.6-4.7) Albumin 2.6 g/dL (3.4-5.0) Test 01/23/17 07:42 Glucose (Fingerstick) 129 mg/dL (70-99) Laboratory Tests Test 01/22/17 16:43 01/22/17 20:54 01/23/17 05:50 01/23/17 07:42 Glucose (Fingerstick) 167 mg/dL (70-99) 118 mg/dL (70-99) 129 mg/dL (70-99) White Blood Count 9.4 x10^3/uL (4.0-11.0) Red Blood Count 2.56 x10^6/uL (4.30-5.70) Hemoglobin 8.3 g/dL (13.0-17.5) Hematocrit 24.8 % (39.0-53.0) Mean Corpuscular Volume 97 fL (79-100) Mean Corpuscular Hemoglobin 32 pg (25-35) Mean Corpuscular Hemoglobin Concent 33 g/dL (31-37) Red Cell Distribution Width 18.3 % (11.5-14.5) Platelet Count 154 x10^3/uL (140-400) Neutrophils (%) (Auto) 81 % (31-73) Lymphocytes (%) (Auto) 7 % (24-48) Monocytes (%) (Auto) 12 % (0-9) Eosinophils (%) (Auto) 0 % (0-3) Basophils (%) (Auto) 0 % (0-3) Neutrophils # (Auto) 7.6 x10^3uL (1.8-7.7) Lymphocytes # (Auto) 0.6 x10^3/uL (1.0-4.8) Monocytes # (Auto) 1.1 x10^3/uL (0.0-1.1) Eosinophils # (Auto) 0.0 x10^3/uL (0.0-0.7) Basophils # (Auto) 0.0 x10^3/uL (0.0-0.2) Sodium Level 139 mmol/L (136-145) Potassium Level 4.3 mmol/L (3.5-5.1) Chloride Level 103 mmol/L (98-107) Carbon Dioxide Level 29 mmol/L (21-32) Anion Gap 7 (6-14) Blood Urea Nitrogen 31 mg/dL (8-26) Creatinine 1.3 mg/dL (0.7-1.3) Estimated GFR (Cockcroft-Gault) 54.4 Glucose Level 144 mg/dL (70-99) Calcium Level 8.8 mg/dL (8.5-10.1) Phosphorus Level 4.7 mg/dL (2.6-4.7) Albumin 2.6 g/dL (3.4-5.0) Microbiology 01/15/17 Blood Culture - Final, Complete NO GROWTH AFTER 5 DAYS Medications Current Medications Fentanyl Citrate (Fentanyl 2ml Vial) 50 mcg 1X ONCE IV Last administered on 21:52; Start 01/15/17 at 22:00; Stop 01/15/17 at 22:01; Status DC Sodium Chloride 1,000 ml @ 150 mls/hr 1X ONCE IV Last administered on 22:31; Start 01/15/17 at 22:00; Stop 01/16/17 at 04:39; Status DC Piperacillin Sod/ Tazobactam Sod 3.375 gm/Dextrose 50 ml @ 100 mls/hr 1X ONCE IV Last administered on 01/15/17 23:22; Start 01/15/17 at 23:30; Stop 01/15 at 23:59; Status DC Heparin Sodium (Porcine) (Heparin Sodium) 9,450 unit 1X ONCE IV Last administered on 01/15/17 23:30; Start 01/15/17 at 23:30; Stop 01/16/17 at 16 :41; Status DC Heparin Sodium/ Dextrose 500 ml @ 0 mls/hr CONT PRN IV SEE I/O RECORD Last administered on 01/16/17 16:26; Start 01/15/17 at 23:15; Stop 01/16/17 at 16 :41; Status DC Heparin Sodium (Porcine) (Heparin Sodium) 3,550 unit PRN Q6HRS PRN IV FOR UFH LEVEL LESS THAN 0.2; Start 01/15/17 at 23:15; Stop 01/16/17 at 16:41; Status DC Heparin Sodium (Porcine) (Heparin Sodium) 1,750 unit PRN Q6HRS PRN IV FOR UFH LEVEL 0.2 - 0.29; Start 01/15/17 at 23:15; Stop 01/16/17 at 16:41; Status DC Warfarin Sodium (Coumadin Per Pharmacy) 1 each PRN DAILY PRN MC PER PROTOCOL Last administered on 01/16/17 10:20; Start 01/15/17 at 23:15; Stop 01/16/17 at 16:39; Status DC Info (Anti-Coagulation Monitoring By Pharmacy) 1 each PRN DAILY PRN MC SEE COMMENTS Last administered on 01/16/17 10:17; Start 01/15/17 at 23:30; Stop 01/18/17 at 14:31; Status DC Ondansetron HCl (Zofran) 4 mg PRN Q8HRS PRN IV NAUSEA/VOMITING; Start at 23:15; Stop 01/16/17 at 23:14; Status DC Fentanyl Citrate (Fentanyl 2ml Vial) 50 mcg PRN Q2HR PRN IV SEVERE PAIN Last administered on 01/16/17 01:33; Start 01/15/17 at 23:15; Stop 01/16/17 at 02 :47; Status DC Piperacillin Sod/ Tazobactam Sod (Zosyn Per Pharmacy) 1 each PRN DAILY PRN MC SEE COMMENTS; Start 01/15/17 at 23:15; Stop 01/16/17 at 02:54; Status DC Sodium Chloride 1,000 ml @ 150 mls/hr 1X ONCE IV Last administered on 01:34; Start 01/15/17 at 23:45; Stop 01/16/17 at 06:24; Status DC Albuterol Sulfate (Ventolin Neb Soln) 2.5 mg PRN Q3HRS PRN NEB WHEEZING Last administered on 01/16/17 11:24; Start 01/15/17 at 23:30 Morphine Sulfate 2 mg 1X ONCE IV Last administered on 01/15/17 23:47; Start 01/16/17 at 00:00; Stop 01/16/17 at 00:01; Status DC Fentanyl Citrate (Fentanyl 2ml Vial) 75 mcg PRN Q2HR PRN IV SEVERE PAIN Last administered on 01/16/17 13:56; Start 01/16/17 at 02:45; Stop 01/16/17 at 16 :41; Status DC Piperacillin Sod/ Tazobactam Sod (Zosyn Per Pharmacy) 1 each PRN DAILY PRN MC SEE COMMENTS; Start 01/16/17 at 02:45; Stop 01/17/17 at 16:01; Status DC Piperacillin Sod/ Tazobactam Sod (Zosyn) 2.25 gm Q6HRS IVP Last administered on 01/17/17 12:01; Start 01/16/17 at 06:00; Stop 01/17/17 at 16:01; Status DC Info (Anti-Coagulation Monitoring By Pharmacy) 1 each PRN DAILY PRN MC SEE COMMENTS; Start 01/16/17 at 09:45; Status Cancel Warfarin Sodium (Coumadin) 5 mg 1X WARF ONCE PO ; Start 01/16/17 at 16:00; Stop 01/16/17 at 16:39; Status DC Lactobacillus Rhamnosus (Culturelle) 1 cap BID PO Last administered on 08:54; Start 01/16/17 at 21:00 Magnesium Sulfate/ Dextrose 50 ml @ 25 mls/hr 1X ONCE IV Last administered on 01/16/17 12:45; Start 01/16/17 at 11:30; Stop 01/16/17 at 13:29; Status DC Linezolid 300 ml @ 300 mls/hr Q12HR IV Last administered on 01/16/17 20:58; Start 01/16/17 at 12:00; Stop 01/17/17 at 08:14; Status DC Iohexol (Omnipaque 240 Mg/ml) 30 ml 1X ONCE PO ; Start 01/16/17 at 12:00; Stop 01/16/17 at 12:01; Status DC Info (Do NOT chart on this entry -- for MONITORING) 1 each PRN DAILY PRN MC SEE COMMENTS; Start 01/16/17 at 12:00; Stop 01/18/17 at 11:59; Status DC Magnesium Sulfate/ Dextrose 50 ml @ 25 mls/hr PRN DAILY PRN IV for Mag < 1.7 on am labs; Start 01/16/17 at 13:15 Metoprolol Succinate (Toprol Xl) 50 mg BID PO Last administered on 01/21/17 08 :11; Start 01/16/17 at 21:00; Stop 01/21/17 at 08:33; Status DC Sodium Chloride 1,000 ml @ 100 mls/hr Q10H IV Last administered on 01/18/17 05:45; Start 01/16/17 at 13:45; Stop 01/18/17 at 11:44; Status DC Aspirin (Charmaine Aspirin) 325 mg DAILYWBKFT PO Last administered on 01/19/17 08: 35; Start 01/17/17 at 08:00; Stop 01/19/17 at 09:49; Status DC Atorvastatin Calcium (Lipitor) 40 mg QHS PO Last administered on 01/22/17 20: 59; Start 01/16/17 at 21:00 Vitamin D (Vitamin D3) 2,000 unit DAILY PO Last administered on 01/23/17 08:53 ; Start 01/17/17 at 09:00 Clonidine HCl (Catapres) 0.1 mg BID PO Last administered on 01/19/17 08:35; Start 01/16/17 at 21:00; Stop 01/19/17 at 09:52; Status DC Folic Acid (Folic Acid) 1 mg DAILY PO Last administered on 01/23/17 08:53; Start 01/17/17 at 09:00 Loperamide HCl (Imodium) 2 mg Q2H PRN PO diarrhea; Start 01/16/17 at 16:45 Metoprolol Succinate (Toprol Xl) 100 mg BID PO ; Start 01/16/17 at 21:00; Status UNV Gabapentin (Neurontin) 600 mg TID PO Last administered on 01/23/17 08:53; Start 01/16/17 at 21:00 Pantoprazole Sodium (Protonix) 40 mg DAILYAC PO Last administered on 01/23/17 08:55; Start 01/17/17 at 07:30 Insulin Aspart (NovoLOG) 0-9 UNITS TIDWMEALS SQ Last administered on 01/22/17 17:00; Start 01/16/17 at 17:00 Dextrose (Dextrose 50%-Water Syringe) 12.5 gm PRN Q15MIN PRN IV SEE COMMENTS; Start 01/16/17 at 16:45 Dexamethasone Sodium Phosphate (Decadron) 10 mg 1X ONCE IV Last administered on 01/16/17 17:05; Start 01/16/17 at 16:45; Stop 01/16/17 at 16:46; Status DC Dexamethasone Sodium Phosphate (Decadron) 4 mg Q6HRS IV Last administered on 05:58; Start 01/17/17 at 00:00; Stop 01/18/17 at 15:31; Status DC Morphine Sulfate 2 mg PRN Q2HR PRN IV PAIN Last administered on 01/23/17 01:02 ; Start 01/16/17 at 16:45 Oxycodone/ Acetaminophen (Percocet 10/325) 1 tab PRN Q4HRS PRN PO pain Last administered on 01/23/17 06:01; Start 01/16/17 at 16:45 Heparin Sodium (Porcine) (Heparin Sq) 5,000 unit Q8HRS SQ Last administered on 01/23/17 06:00; Start 01/16/17 at 22:00 Diazepam (Valium) 5 mg PRN Q6HRS PRN IV SEIZURES; Start 01/16/17 at 18:30; Status Cancel Diazepam (Valium) 5 mg PRN Q6HRS PRN PO TREMORS Last administered on 01/22/17 03:59; Start 01/16/17 at 18:45 Fentanyl Citrate (Fentanyl 2ml Vial) 100 mcg STK-MED ONCE .ROUTE ; Start at 10:08; Stop 01/17/17 at 10:09; Status DC Midazolam HCl (Versed) 2 mg STK-MED ONCE .ROUTE ; Start 01/17/17 at 10:08; Stop 01/17/17 at 10:09; Status DC Lidocaine/Sodium Bicarbonate (Buffered Lidocaine 1%) 20 ml 1X ONCE IJ Last administered on 01/17/17 10:51; Start 01/17/17 at 10:15; Stop 01/17/17 at 10:16 ; Status DC Midazolam HCl (Versed) 2 mg 1X ONCE IV Last administered on 01/17/17 10:52; Start 01/17/17 at 10:15; Stop 01/17/17 at 10:16; Status DC Fentanyl Citrate (Fentanyl 2ml Vial) 100 mcg 1X ONCE IV Last administered on 01/17/17 10:52; Start 01/17/17 at 10:15; Stop 01/17/17 at 10:16; Status DC Lidocaine/Sodium Bicarbonate (Buffered Lidocaine 1%) 20 ml STK-MED ONCE IJ ; Start 01/17/17 at 10:14; Stop 01/17/17 at 10:15; Status DC Piperacillin Sod/ Tazobactam Sod (Zosyn) 3.375 gm Q6HRS IVP Last administered on 01/18/17 06:00; Start 01/17/17 at 18:00; Stop 01/18/17 at 10:42; Status DC Dexamethasone Sodium Phosphate (Decadron) 4 mg Q12HR IV Last administered on 08:58; Start 01/18/17 at 21:00 Aspirin (Ecotrin) 81 mg DAILYWBKFT PO Last administered on 01/23/17 08:54; Start 01/20/17 at 08:00 Amlodipine Besylate (Norvasc) 10 mg DAILY PO Last administered on 01/23/17 08: 57; Start 01/19/17 at 10:00 Oxycodone HCl (OxyCONTIN) 30 mg Q12HR PO Last administered on 01/23/17 08:54; Start 01/19/17 at 11:45 Senna/Docusate Sodium (Senna Plus) 2 tab DAILY PO Last administered on 08:53; Start 01/19/17 at 12:00 Gadobutrol (Gadavist) 10 mmol 1X ONCE IV ; Start 01/19/17 at 15:45; Stop at 15:46; Status DC Sodium Chloride 1,000 ml @ 75 mls/hr [id number] IV Last administered on 02:12; Start 01/20/17 at 11:15; Stop 01/21/17 at 18:06; Status DC Polyethylene Glycol (miraLAX PACKET) 17 gm DAILY PO Last administered on 11/6/ 17at 10:21; Start 01/20/17 at 15:00 Metoprolol Succinate (Toprol Xl) 50 mg DAILY PO Last administered on 01/23/17t 08:58; Start 01/21/17 at 09:00 Bacitracin 74863 unit/Sodium Chloride 1,000 ml @ 1,000 mls/hr 1X PERIOP ONCE IRR ; Start 01/24/17 at 06:00; Stop 01/24/17 at 06:59 Ondansetron HCl (Zofran) 4 mg PRN Q6HRS PRN IV NAUSEA/VOMITING; Start 01/24/17 at 07:00; Stop 01/25/17 at 06:59 Fentanyl Citrate (Fentanyl 2ml Vial) 25 mcg PRN Q5MIN PRN IV MILD PAIN; Start 01/24/17 at 07:00; Stop 01/25/17 at 06:59 Fentanyl Citrate (Fentanyl 2ml Vial) 50 mcg PRN Q5MIN PRN IV MODERATE PAIN; Start 01/24/17 at 07:00; Stop 01/25/17 at 06:59 Morphine Sulfate 1 mg PRN Q10MIN PRN IV SEVERE PAIN; Start 01/24/17 at 07:00; Stop 01/25/17 at 06:59 Ringer's Solution 1,000 ml @ 30 mls/hr Q24H IV ; Start 01/24/17 at 07:00; Stop 01/24/17 at 18:59 Lidocaine HCl (Xylocaine-Mpf 1% Vial) 2 ml PRN 1X PRN ID IV START; Start at 07:00; Stop 01/25/17 at 06:59 Hydromorphone HCl (Dilaudid) 0.5 mg PRN Q10MIN PRN IV SEV PAIN, Second choice; Start 01/24/17 at 07:00; Stop 01/25/17 at 06:59 Prochlorperazine Edisylate (Compazine) 5 mg PACU PRN PRN IV NAUSEA, MRX1; Start 01/24/17 at 07:00; Stop 01/25/17 at 06:59 Active Scripts Active Reported Imodium A-D (Loperamide HCl) 2 Mg Capsule 2 Mg PO Aspirin 325 Mg Tablet 1 Tab PO DAILY Vitamin D3 (Cholecalciferol (Vitamin D3)) 1,000 Unit Tablet 2,000 Unit PO Vicodin Es 7.5-300 Mg Tablet (Hydrocodone Bit/Acetaminophen) 1 Each Tablet 1 Each PO Q6H PRN Humira (Adalimumab) 40 Mg/0.8 Ml Pen.ij.kit 1 Syr SQ Q2WKS Folbic Rf Tablet (B12/Levomefolate Calcium/B-6) 1 Each Tablet 1 Each PO Omeprazole 40 Mg Capsule. 1 Cap PO DAILY Cholestyramine Packet (Cholestyramine (With Sugar)) 4 Gm Powd.pack 4 Gm PO Gabapentin 600 Mg Tablet 600 Mg PO TID Folic Acid 1 Mg Tablet 1 Tab PO DAILY Clonidine Hcl 0.1 Mg Tablet 0.1 Mg PO BID Metformin Hcl 1,000 Mg Tablet 1,000 Mg PO BIDWMEALS Atorvastatin Calcium 40 Mg Tablet 1 Tab PO DAILY Metoprolol Succinate ( Xl ) (Metoprolol Succinate) 100 Mg Tab.er.24h 100 Mg PO BID Vitals/I & O Vital Sign - Last 24 Hours 01/22/17 01/22/17 01/22/17 01/22/17 13:16 14:16 15:47 16:47 Temp 98.3 98.3 Pulse 68 Resp 17 20 18 18 B/P (MAP) 108/59 (75) Pulse Ox 99 96 O2 Delivery Room Air Room Air 01/22/17 01/22/17 01/22/17 01/22/17 19:05 20:00 21:02 23:05 Temp 97.3 97.9 97.3 97.9 Pulse 68 60 Resp 18 17 B/P (MAP) 137/62 (87) 122/57 (78) Pulse Ox 96 96 99 O2 Delivery Nasal Cannula Room Air Room Air BiPAP/CPAP O2 Flow Rate 2.0 2.0 01/23/17 01/23/17 01/23/17 01/23/17 00:59 01:02 01:02 01:32 Pulse Ox 99 99 99 99 O2 Delivery BiPAP/CPAP Nasal Cannula Nasal Cannula Room Air O2 Flow Rate 2.0 2.0 2.0 01/23/17 01/23/17 01/23/17 01/23/17 03:05 06:01 07:01 07:29 Temp 98.2 98.0 98.2 98.0 Pulse 58 75 Resp 16 21 B/P (MAP) 108/55 (72) 179/79 (112) Pulse Ox 97 97 97 99 O2 Delivery Nasal Cannula Nasal Cannula Room Air Nasal Cannula O2 Flow Rate 2.0 2.0 2.0 2.0 01/23/17 01/23/17 01/23/17 01/23/17 08:54 08:57 08:58 10:51 Temp 97.6 97.6 Pulse 61 67 69 Resp 22 B/P (MAP) 162/71 162/71 159/72 (101) Pulse Ox 99 O2 Delivery Room Air Nasal Cannula O2 Flow Rate 2.0 2.0 JESSICA RAMIREZ III DO Jan 23, 2017 12:02
[2017-01-23 12:16] LABS: IMMUNOGLOBULIN A 188 mg/dL (61-437); IMMUNOGLOBULIN G 857 mg/dL (700-1600); IMMUNOGLOBULIN M 247 mg/dL (15-143)
[2017-01-23] MEDS: diazePAM 5 MG TABLET PO PRN (13:49)
--- NOTE | 2017-01-23 14:29 | PDOC ---
Provider Note Provider Note 73 yo man with fall at home likely due to hypoglycemic or hypotensive event. Traumatic fx at L3 initially felt to be osteolytic path fx with soft tissue extension on initial CT imaging worrisome for malignancy. CT guided bx hemorrhage only no evidence for malignancy. F/U MRI also consistent Chance fracture with hemorrhage. Now scheduled for NS operative evaluation with instrumented stabilization tomorrow 01/24/2017. Pain persists and worse with any movement. Some sensation of legs going to sleep. PE LE movement preserved but any significant strength assessment increases back pain. Sensation diminished to light touch. Impression: Likely benign L3 Chance fracture of L3. No evidence for malignancy as yet. Await pathology from surgery tomorrow and SPEP which is still in process. Discussed with patient and . CHERRY CINTRON MD Jan 23, 2017 14:29
[2017-01-23 14:51] VITALS: BP 142/67
[2017-01-23 19:05] VITALS: BP 154/67
[2017-01-23] MEDS: ATORVASTATIN CALCIUM 40 MG TABLET. PO SCH (21:06)
[2017-01-23 23:05] VITALS: BP 154/70
[2017-01-24] VITALS (10 sets, daily range): BP systolic 117–155; BP diastolic 61–72
[2017-01-24] MEDS: oxyCODONE/APAP 10/325 1 TAB TABLET PO PRN ×2 (00:05→20:10)
[2017-01-24] MEDS ORDERED: BACITRACIN 50,000 UNIT in IV NORMAL SALINE 1000ML BAG 1,000 ML IRR ONE (06:00)
[2017-01-24] MEDS: MORPHINE SULFATE 2 MG/ML DISP.SYRIN. IV PRN ×2 (06:10→19:52)
[2017-01-24 06:57] LABS: BASO % 0 % (0-3); EOS % 0 % (0-3); HEMATOCRIT 26.3 % (39.0-53.0); HEMOGLOBIN 8.7 g/dL (13.0-17.5); LYMPH # 0.6 x10^3/uL (1.0-4.8); LYMPH % 7 % (24-48); MEAN CORPUSCULAR HEMOGLOBIN 32 pg (25-35); MEAN CORPUSCULAR HGB CONC 33 g/dL (31-37); MEAN CORPUSCULAR VOLUME 98 fL (79-100); MONO % 12 % (0-9); NEUT % 81 % (31-73); PLATELET COUNT 168 x10^3/uL (140-400); RED BLOOD COUNT 2.68 x10^6/uL (4.30-5.70); RED CELL DISTRIBUTION WIDTH 18.3 % (11.5-14.5); WHITE BLOOD COUNT 8.8 x10^3/uL (4.0-11.0)
[2017-01-24] MEDS ORDERED: fentaNYL PF VIAL 100 MCG/2 ML VIAL IV PRN (07:00)
[2017-01-24] MEDS ORDERED: HYDROmorphone 2 MG/ML VIAL IV PRN (07:00)
[2017-01-24] MEDS ORDERED: ONDANSETRON PF 4 MG/2 ML VIAL. IV PRN (07:00)
[2017-01-24] MEDS ORDERED: IV RINGERS,LACTATED 1000ML 1,000 ML IV SCH (07:00)
[2017-01-24] MEDS ORDERED: PROCHLORPERAZINE 10 MG/2 ML VIAL. IV PRN (07:00)
[2017-01-24] MEDS ORDERED: LIDOCAINE 1% PF 2 ML VIAL. ID PRN (07:00)
[2017-01-24] MEDS ORDERED: MORPHINE SULFATE 2 MG/ML DISP.SYRIN. IV PRN (07:00)
[2017-01-24] MEDS ORDERED: GELATIN SPONGE SIZE 100. ONE (07:30)
[2017-01-24] MEDS: PANTOPRAZOLE 40 MG TABLET.DR. PO SCH (07:30)
[2017-01-24] MEDS ORDERED: THROMBIN TOPICAL 20,000 UNIT SPRAY.SYRN KIT TP ONE (07:31)
[2017-01-24] MEDS ORDERED: BUPIVAC MPF-EPI 0.5%-1:200000 30 ML VIAL. ONE (07:31)
[2017-01-24] MEDS ORDERED: KETOROLAC 60 MG/2 ML INJ FOR OR. ONE (07:31)
[2017-01-24 07:33] LABS: CALCIUM 8.6 mg/dL (8.5-10.1); CREATININE 1.3 mg/dL (0.7-1.3); GFR 54.4; POTASSIUM 4.4 mmol/L (3.5-5.1)
[2017-01-24] MEDS: INSULIN ASPART 300 UNITS/3 ML INSULN.PEN SQ SCH ×3 (08:00→17:00)
[2017-01-24] MEDS: ASPIRIN ENTERIC COATED 81 MG TABLET.DR. PO SCH (08:00)
[2017-01-24] MEDS: SENNOSIDES/DOCUSATE 8.6/50MG TABLET. PO SCH (09:00)
[2017-01-24] MEDS: LACTOBACILLUS RHAMNOSUS GG 1 CAPSULE. PO SCH ×2 (09:00→21:22)
[2017-01-24] MEDS: POLYETHYLENE GLYCOL 3350 17 GM PACKET. PO SCH (09:00)
[2017-01-24] MEDS: FOLIC ACID 1 MG TABLET. PO SCH (09:00)
[2017-01-24] MEDS: CHOLECALCIFEROL (VITAMIN D3) 1,000 UNIT TABLET PO SCH (09:00)
[2017-01-24] MEDS: amLODIPine BESYLATE 10 MG TABLET PO SCH (09:35)
[2017-01-24] MEDS: GABAPENTIN 300 MG CAPSULE. PO SCH ×3 (09:35→21:22)
[2017-01-24] MEDS: oxyCODONE ER 15 MG TAB.ER.12H PO SCH ×3 (09:35→21:23)
[2017-01-24] MEDS: METOPROLOL SUCC 24HR ER 50 MG TAB.ER.24H. PO SCH (09:35)
[2017-01-24] MEDS: DEXAMETHASONE SOD PHOS 4 MG/ML VIAL IV SCH ×2 (09:42→21:22)
[2017-01-24] MEDS ORDERED: ROCURONIUM 50 MG/5 ML VIAL. ONE (11:05)
[2017-01-24] MEDS ORDERED: REMIFENTANIL 2 MG VIAL. IV ONE ×3 (11:05→17:10)
[2017-01-24] MEDS ORDERED: fentaNYL PF VIAL 250 MCG/5 ML VIAL ONE (11:05)
[2017-01-24] MEDS ORDERED: MIDAZOLAM HCL/PF 2 MG/2 ML VIAL. ONE (11:05)
[2017-01-24] MEDS ORDERED: MINERAL OIL/PETROLATUM,WHITE OPHTH OINT 3.5GM TUBE. ONE (11:09)
[2017-01-24] MEDS ORDERED: PROPOFOL 50 ML IV ONE ×5 (11:09→17:30)
[2017-01-24] MEDS ORDERED: PROPOFOL 0 ML IV ONE (11:10)
[2017-01-24] MEDS ORDERED: ONDANSETRON PF 4 MG/2 ML VIAL. ONE (11:10)
[2017-01-24] MEDS ORDERED: DESFLURANE > 120 MINUTES IH ONE (11:10)
[2017-01-24] MEDS ORDERED: LIDOCAINE 2% PF Vial for OR 5 ML VIAL. ONE (11:10)
[2017-01-24] MEDS ORDERED: DEXAMETHASONE SOD PHOS 20 MG/5 ML VIAL. ONE (11:10)
[2017-01-24] MEDS ORDERED: 0.9 % SODIUM CHLORIDE 50 ML VIAL. IJ ONE (11:11)
--- NOTE | 2017-01-24 11:28 | RAD ---
CT study of the lumbar spine without contrast Clinical indications: Low back pain. Lytic lesion versus fracture of L3. Follow-up study. Comparison: CT study lumbar spine dated December 19, 2016 and lumbar spine MRI study dated January 19, 2017. Technique: Noncontrast helical CT scanning of the lumbar spine was performed. Multiplanar 2-D reconstructions were generated. PQRS Compliance Statement: One or more of the following individualized dose reduction techniques were utilized for this examination: 1. Automated exposure control 2. Adjustment of the mA and/or kV according to patient size 3. Use of iterative reconstruction technique Findings: Based on the lumbar spine MRI study, the finding at L3 is consistent with a Chance fracture extending extending through the vertebral body and pedicles and pars interarticularis on both sides and the anterior portion of the spinous process. The alignment is unchanged. There is about 4-5 mm of anterior displacement of the superior fracture segment relative to the inferior fracture segment of the vertebral body. The compression fractures of T11 and T12 and L2 are unchanged and appear old based on the lumbar spine MRI study. Generalized osteopenia is seen. No marrow infiltrative process is seen within the lumbar spine or lower thoracic spine on the MRI study. Autofusion is seen at multiple levels. No new fracture is seen. Again seen is circumferential narrowing of the lumbar spinal canal at the L3 level which is secondary to epidural hematoma based on the lumbar spine MRI study. IMPRESSION: Chance fracture of L3 vertebrae with 4 to 5 mm of anterior displacement of the superior fracture segment relative to the inferior fracture segment of the vertebral body. Circumferential narrowing of the lumbar spinal canal at L3 level is again seen and is unchanged and secondary to epidural hematoma based on the MRI study.
[2017-01-24] MEDS ORDERED: PHENYLEPHRINE in 0.9% NACL PF 1 MG/10 ML DISP.SYRIN. IV ONE ×2 (12:02→16:54)
[2017-01-24] MEDS ORDERED: NEOSTIGMINE METHYLSULFATE 5 MG/5 ML SYRINGE. ONE (12:28)
[2017-01-24] MEDS ORDERED: GLYCOPYRROLATE 1 MG/5 ML VIAL. ONE (12:28)
--- NOTE | 2017-01-24 13:26 | PDOC ---
PROGRESS NOTES Chief Complaint Chief Complaint L3 spinal mass: highly suspicious for malignancy or L3 Chance fracture?. Back pain Syncope Renal mass vs complex cyst ANDREINA on CKD DM2 Anemia Dyspnea PAF CAD: hx mult stents Crohn's Alcoholism Azotemia History of Present Illness History of Present Illness This is a pleasant 71 yr old gentleman who was admitted to the hospital with a cc of syncope, hypoxia and elevated D-dimer. Today he was examined at bedside right before his surgery. He is alert, oriented and not in a cute distress. Family members were present in the room. Pt was cleared for surgery. The pt. is currently being followed by Nepho re: renal insufficiency, ID re: positive lactic acid, Cardio re: CHF, Heme and Onc re: spinal cancer, Radiation Onc re: Spinal cancer, Neurosurg re: L3 malignant lesion. For now, continue to monitor. Vitals Vitals Vital Signs Date Time Temp Pulse Resp B/P (MAP) Pulse Ox O2 Delivery O2 Flow Rate FiO2 01/24/17 11:22 97.8 64 20 164/68 96 Nasal Cannula 97.8 01/24/17 07:00 2.0 Physical Exam General: Alert, Oriented X3 Heart: Normal S1, Normal S2 Lungs: Clear Abdomen: Normal bowel sounds, Soft, No tenderness Extremities: No clubbing, No edema Skin: No rashes Labs LABS Laboratory Tests Test 01/23/17 17:02 01/23/17 21:00 01/24/17 06:00 01/24/17 07:20 Glucose (Fingerstick) 125 mg/dL (70-99) 122 mg/dL (70-99) 134 mg/dL (70-99) White Blood Count 8.8 x10^3/uL (4.0-11.0) Red Blood Count 2.68 x10^6/uL (4.30-5.70) Hemoglobin 8.7 g/dL (13.0-17.5) Hematocrit 26.3 % (39.0-53.0) Mean Corpuscular Volume 98 fL (79-100) Mean Corpuscular Hemoglobin 32 pg (25-35) Mean Corpuscular Hemoglobin Concent 33 g/dL (31-37) Red Cell Distribution Width 18.3 % (11.5-14.5) Platelet Count 168 x10^3/uL (140-400) Neutrophils (%) (Auto) 81 % (31-73) Lymphocytes (%) (Auto) 7 % (24-48) Monocytes (%) (Auto) 12 % (0-9) Eosinophils (%) (Auto) 0 % (0-3) Basophils (%) (Auto) 0 % (0-3) Neutrophils # (Auto) 7.1 x10^3uL (1.8-7.7) Lymphocytes # (Auto) 0.6 x10^3/uL (1.0-4.8) Monocytes # (Auto) 1.1 x10^3/uL (0.0-1.1) Eosinophils # (Auto) 0.0 x10^3/uL (0.0-0.7) Basophils # (Auto) 0.0 x10^3/uL (0.0-0.2) Sodium Level 137 mmol/L (136-145) Potassium Level 4.4 mmol/L (3.5-5.1) Chloride Level 100 mmol/L (98-107) Carbon Dioxide Level 30 mmol/L (21-32) Anion Gap 7 (6-14) Blood Urea Nitrogen 32 mg/dL (8-26) Creatinine 1.3 mg/dL (0.7-1.3) Estimated GFR (Cockcroft-Gault) 54.4 Glucose Level 133 mg/dL (70-99) Calcium Level 8.6 mg/dL (8.5-10.1) Review of Systems Review of Systems fatigue and weakness Assessment and Plan Assessmemt and Plan Problems Medical Problems: (1) Elevated d-dimer Status: Acute (2) Elevated serum creatinine Status: Acute (3) Hypoxia Status: Acute (4) Lactic acidosis Status: Acute (5) 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 Back pain Syncope Renal mass vs complex cyst ANDREINA on CKD DM2 Anemia Dyspnea PAF CAD: hx mult stents Crohn's Alcoholism Azotemia Plan: Pt. on his way to surgery Recheck labs PT/OT Wound care Continue current medication Problems: Comment Review of Relevant I have reviewed the following items bernadine (where applicable) has been applied. Labs Laboratory Tests Test 01/22/17 16:43 01/22/17 20:54 01/23/17 05:50 01/23/17 07:42 Glucose (Fingerstick) 167 mg/dL (70-99) 118 mg/dL (70-99) 129 mg/dL (70-99) White Blood Count 9.4 x10^3/uL (4.0-11.0) Red Blood Count 2.56 x10^6/uL (4.30-5.70) Hemoglobin 8.3 g/dL (13.0-17.5) Hematocrit 24.8 % (39.0-53.0) Mean Corpuscular Volume 97 fL (79-100) Mean Corpuscular Hemoglobin 32 pg (25-35) Mean Corpuscular Hemoglobin Concent 33 g/dL (31-37) Red Cell Distribution Width 18.3 % (11.5-14.5) Platelet Count 154 x10^3/uL (140-400) Neutrophils (%) (Auto) 81 % (31-73) Lymphocytes (%) (Auto) 7 % (24-48) Monocytes (%) (Auto) 12 % (0-9) Eosinophils (%) (Auto) 0 % (0-3) Basophils (%) (Auto) 0 % (0-3) Neutrophils # (Auto) 7.6 x10^3uL (1.8-7.7) Lymphocytes # (Auto) 0.6 x10^3/uL (1.0-4.8) Monocytes # (Auto) 1.1 x10^3/uL (0.0-1.1) Eosinophils # (Auto) 0.0 x10^3/uL (0.0-0.7) Basophils # (Auto) 0.0 x10^3/uL (0.0-0.2) Sodium Level 139 mmol/L (136-145) Potassium Level 4.3 mmol/L (3.5-5.1) Chloride Level 103 mmol/L (98-107) Carbon Dioxide Level 29 mmol/L (21-32) Anion Gap 7 (6-14) Blood Urea Nitrogen 31 mg/dL (8-26) Creatinine 1.3 mg/dL (0.7-1.3) Estimated GFR (Cockcroft-Gault) 54.4 Glucose Level 144 mg/dL (70-99) Calcium Level 8.8 mg/dL (8.5-10.1) Phosphorus Level 4.7 mg/dL (2.6-4.7) Albumin 2.6 g/dL (3.4-5.0) Test 01/23/17 11:51 01/23/17 17:02 01/23/17 21:00 01/24/17 06:00 Glucose (Fingerstick) 134 mg/dL (70-99) 125 mg/dL (70-99) 122 mg/dL (70-99) White Blood Count 8.8 x10^3/uL (4.0-11.0) Red Blood Count 2.68 x10^6/uL (4.30-5.70) Hemoglobin 8.7 g/dL (13.0-17.5) Hematocrit 26.3 % (39.0-53.0) Mean Corpuscular Volume 98 fL (79-100) Mean Corpuscular Hemoglobin 32 pg (25-35) Mean Corpuscular Hemoglobin Concent 33 g/dL (31-37) Red Cell Distribution Width 18.3 % (11.5-14.5) Platelet Count 168 x10^3/uL (140-400) Neutrophils (%) (Auto) 81 % (31-73) Lymphocytes (%) (Auto) 7 % (24-48) Monocytes (%) (Auto) 12 % (0-9) Eosinophils (%) (Auto) 0 % (0-3) Basophils (%) (Auto) 0 % (0-3) Neutrophils # (Auto) 7.1 x10^3uL (1.8-7.7) Lymphocytes # (Auto) 0.6 x10^3/uL (1.0-4.8) Monocytes # (Auto) 1.1 x10^3/uL (0.0-1.1) Eosinophils # (Auto) 0.0 x10^3/uL (0.0-0.7) Basophils # (Auto) 0.0 x10^3/uL (0.0-0.2) Sodium Level 137 mmol/L (136-145) Potassium Level 4.4 mmol/L (3.5-5.1) Chloride Level 100 mmol/L (98-107) Carbon Dioxide Level 30 mmol/L (21-32) Anion Gap 7 (6-14) Blood Urea Nitrogen 32 mg/dL (8-26) Creatinine 1.3 mg/dL (0.7-1.3) Estimated GFR (Cockcroft-Gault) 54.4 Glucose Level 133 mg/dL (70-99) Calcium Level 8.6 mg/dL (8.5-10.1) Test 01/24/17 07:20 Glucose (Fingerstick) 134 mg/dL (70-99) Laboratory Tests Test 01/23/17 17:02 01/23/17 21:00 01/24/17 06:00 01/24/17 07:20 Glucose (Fingerstick) 125 mg/dL (70-99) 122 mg/dL (70-99) 134 mg/dL (70-99) White Blood Count 8.8 x10^3/uL (4.0-11.0) Red Blood Count 2.68 x10^6/uL (4.30-5.70) Hemoglobin 8.7 g/dL (13.0-17.5) Hematocrit 26.3 % (39.0-53.0) Mean Corpuscular Volume 98 fL (79-100) Mean Corpuscular Hemoglobin 32 pg (25-35) Mean Corpuscular Hemoglobin Concent 33 g/dL (31-37) Red Cell Distribution Width 18.3 % (11.5-14.5) Platelet Count 168 x10^3/uL (140-400) Neutrophils (%) (Auto) 81 % (31-73) Lymphocytes (%) (Auto) 7 % (24-48) Monocytes (%) (Auto) 12 % (0-9) Eosinophils (%) (Auto) 0 % (0-3) Basophils (%) (Auto) 0 % (0-3) Neutrophils # (Auto) 7.1 x10^3uL (1.8-7.7) Lymphocytes # (Auto) 0.6 x10^3/uL (1.0-4.8) Monocytes # (Auto) 1.1 x10^3/uL (0.0-1.1) Eosinophils # (Auto) 0.0 x10^3/uL (0.0-0.7) Basophils # (Auto) 0.0 x10^3/uL (0.0-0.2) Sodium Level 137 mmol/L (136-145) Potassium Level 4.4 mmol/L (3.5-5.1) Chloride Level 100 mmol/L (98-107) Carbon Dioxide Level 30 mmol/L (21-32) Anion Gap 7 (6-14) Blood Urea Nitrogen 32 mg/dL (8-26) Creatinine 1.3 mg/dL (0.7-1.3) Estimated GFR (Cockcroft-Gault) 54.4 Glucose Level 133 mg/dL (70-99) Calcium Level 8.6 mg/dL (8.5-10.1) Microbiology 01/15/17 Blood Culture - Final, Complete NO GROWTH AFTER 5 DAYS Medications Current Medications Fentanyl Citrate (Fentanyl 2ml Vial) 50 mcg 1X ONCE IV Last administered on 21:52; Start 01/15/17 at 22:00; Stop 01/15/17 at 22:01; Status DC Sodium Chloride 1,000 ml @ 150 mls/hr 1X ONCE IV Last administered on 22:31; Start 01/15/17 at 22:00; Stop 01/16/17 at 04:39; Status DC Piperacillin Sod/ Tazobactam Sod 3.375 gm/Dextrose 50 ml @ 100 mls/hr 1X ONCE IV Last administered on 01/15/17 23:22; Start 01/15/17 at 23:30; Stop 01/15 at 23:59; Status DC Heparin Sodium (Porcine) (Heparin Sodium) 9,450 unit 1X ONCE IV Last administered on 01/15/17 23:30; Start 01/15/17 at 23:30; Stop 01/16/17 at 16 :41; Status DC Heparin Sodium/ Dextrose 500 ml @ 0 mls/hr CONT PRN IV SEE I/O RECORD Last administered on 01/16/17 16:26; Start 01/15/17 at 23:15; Stop 01/16/17 at 16 :41; Status DC Heparin Sodium (Porcine) (Heparin Sodium) 3,550 unit PRN Q6HRS PRN IV FOR UFH LEVEL LESS THAN 0.2; Start 01/15/17 at 23:15; Stop 01/16/17 at 16:41; Status DC Heparin Sodium (Porcine) (Heparin Sodium) 1,750 unit PRN Q6HRS PRN IV FOR UFH LEVEL 0.2 - 0.29; Start 01/15/17 at 23:15; Stop 01/16/17 at 16:41; Status DC Warfarin Sodium (Coumadin Per Pharmacy) 1 each PRN DAILY PRN MC PER PROTOCOL Last administered on 01/16/17 10:20; Start 01/15/17 at 23:15; Stop 01/16/17 at 16:39; Status DC Info (Anti-Coagulation Monitoring By Pharmacy) 1 each PRN DAILY PRN MC SEE COMMENTS Last administered on 01/16/17 10:17; Start 01/15/17 at 23:30; Stop 01/18/17 at 14:31; Status DC Ondansetron HCl (Zofran) 4 mg PRN Q8HRS PRN IV NAUSEA/VOMITING; Start at 23:15; Stop 01/16/17 at 23:14; Status DC Fentanyl Citrate (Fentanyl 2ml Vial) 50 mcg PRN Q2HR PRN IV SEVERE PAIN Last administered on 01/16/17 01:33; Start 01/15/17 at 23:15; Stop 01/16/17 at 02 :47; Status DC Piperacillin Sod/ Tazobactam Sod (Zosyn Per Pharmacy) 1 each PRN DAILY PRN MC SEE COMMENTS; Start 01/15/17 at 23:15; Stop 01/16/17 at 02:54; Status DC Sodium Chloride 1,000 ml @ 150 mls/hr 1X ONCE IV Last administered on 01:34; Start 01/15/17 at 23:45; Stop 01/16/17 at 06:24; Status DC Albuterol Sulfate (Ventolin Neb Soln) 2.5 mg PRN Q3HRS PRN NEB WHEEZING Last administered on 01/16/17 11:24; Start 01/15/17 at 23:30 Morphine Sulfate 2 mg 1X ONCE IV Last administered on 01/15/17 23:47; Start 01/16/17 at 00:00; Stop 01/16/17 at 00:01; Status DC Fentanyl Citrate (Fentanyl 2ml Vial) 75 mcg PRN Q2HR PRN IV SEVERE PAIN Last administered on 01/16/17 13:56; Start 01/16/17 at 02:45; Stop 01/16/17 at 16 :41; Status DC Piperacillin Sod/ Tazobactam Sod (Zosyn Per Pharmacy) 1 each PRN DAILY PRN MC SEE COMMENTS; Start 01/16/17 at 02:45; Stop 01/17/17 at 16:01; Status DC Piperacillin Sod/ Tazobactam Sod (Zosyn) 2.25 gm Q6HRS IVP Last administered on 01/17/17 12:01; Start 01/16/17 at 06:00; Stop 01/17/17 at 16:01; Status DC Info (Anti-Coagulation Monitoring By Pharmacy) 1 each PRN DAILY PRN MC SEE COMMENTS; Start 01/16/17 at 09:45; Status Cancel Warfarin Sodium (Coumadin) 5 mg 1X WARF ONCE PO ; Start 01/16/17 at 16:00; Stop 01/16/17 at 16:39; Status DC Lactobacillus Rhamnosus (Culturelle) 1 cap BID PO Last administered on 21:06; Start 01/16/17 at 21:00 Magnesium Sulfate/ Dextrose 50 ml @ 25 mls/hr 1X ONCE IV Last administered on 01/16/17 12:45; Start 01/16/17 at 11:30; Stop 01/16/17 at 13:29; Status DC Linezolid 300 ml @ 300 mls/hr Q12HR IV Last administered on 01/16/17 20:58; Start 01/16/17 at 12:00; Stop 01/17/17 at 08:14; Status DC Iohexol (Omnipaque 240 Mg/ml) 30 ml 1X ONCE PO ; Start 01/16/17 at 12:00; Stop 01/16/17 at 12:01; Status DC Info (Do NOT chart on this entry -- for MONITORING) 1 each PRN DAILY PRN MC SEE COMMENTS; Start 01/16/17 at 12:00; Stop 01/18/17 at 11:59; Status DC Magnesium Sulfate/ Dextrose 50 ml @ 25 mls/hr PRN DAILY PRN IV for Mag < 1.7 on am labs; Start 01/16/17 at 13:15 Metoprolol Succinate (Toprol Xl) 50 mg BID PO Last administered on 01/21/17 08 :11; Start 01/16/17 at 21:00; Stop 01/21/17 at 08:33; Status DC Sodium Chloride 1,000 ml @ 100 mls/hr Q10H IV Last administered on 01/18/17 05:45; Start 01/16/17 at 13:45; Stop 01/18/17 at 11:44; Status DC Aspirin (Charmaine Aspirin) 325 mg DAILYWBKFT PO Last administered on 01/19/17 08: 35; Start 01/17/17 at 08:00; Stop 01/19/17 at 09:49; Status DC Atorvastatin Calcium (Lipitor) 40 mg QHS PO Last administered on 01/23/17 21: 06; Start 01/16/17 at 21:00 Vitamin D (Vitamin D3) 2,000 unit DAILY PO Last administered on 01/23/17 08:53 ; Start 01/17/17 at 09:00 Clonidine HCl (Catapres) 0.1 mg BID PO Last administered on 01/19/17 08:35; Start 01/16/17 at 21:00; Stop 01/19/17 at 09:52; Status DC Folic Acid (Folic Acid) 1 mg DAILY PO Last administered on 01/23/17 08:53; Start 01/17/17 at 09:00 Loperamide HCl (Imodium) 2 mg Q2H PRN PO diarrhea; Start 01/16/17 at 16:45 Metoprolol Succinate (Toprol Xl) 100 mg BID PO ; Start 01/16/17 at 21:00; Status UNV Gabapentin (Neurontin) 600 mg TID PO Last administered on 01/24/17 09:35; Start 01/16/17 at 21:00 Pantoprazole Sodium (Protonix) 40 mg DAILYAC PO Last administered on 01/23/17 08:55; Start 01/17/17 at 07:30 Insulin Aspart (NovoLOG) 0-9 UNITS TIDWMEALS SQ Last administered on 01/22/17 17:00; Start 01/16/17 at 17:00 Dextrose (Dextrose 50%-Water Syringe) 12.5 gm PRN Q15MIN PRN IV SEE COMMENTS; Start 01/16/17 at 16:45 Dexamethasone Sodium Phosphate (Decadron) 10 mg 1X ONCE IV Last administered on 01/16/17 17:05; Start 01/16/17 at 16:45; Stop 01/16/17 at 16:46; Status DC Dexamethasone Sodium Phosphate (Decadron) 4 mg Q6HRS IV Last administered on 05:58; Start 01/17/17 at 00:00; Stop 01/18/17 at 15:31; Status DC Morphine Sulfate 2 mg PRN Q2HR PRN IV PAIN Last administered on 01/24/17 06:10 ; Start 01/16/17 at 16:45 Oxycodone/ Acetaminophen (Percocet 10/325) 1 tab PRN Q4HRS PRN PO pain Last administered on 01/24/17 00:05; Start 01/16/17 at 16:45 Heparin Sodium (Porcine) (Heparin Sq) 5,000 unit Q8HRS SQ Last administered on 01/23/17 06:00; Start 01/16/17 at 22:00; Stop 01/23/17 at 13:16; Status DC Diazepam (Valium) 5 mg PRN Q6HRS PRN IV SEIZURES; Start 01/16/17 at 18:30; Status Cancel Diazepam (Valium) 5 mg PRN Q6HRS PRN PO TREMORS Last administered on 01/23/17 13:49; Start 01/16/17 at 18:45 Fentanyl Citrate (Fentanyl 2ml Vial) 100 mcg STK-MED ONCE .ROUTE ; Start at 10:08; Stop 01/17/17 at 10:09; Status DC Midazolam HCl (Versed) 2 mg STK-MED ONCE .ROUTE ; Start 01/17/17 at 10:08; Stop 01/17/17 at 10:09; Status DC Lidocaine/Sodium Bicarbonate (Buffered Lidocaine 1%) 20 ml 1X ONCE IJ Last administered on 01/17/17 10:51; Start 01/17/17 at 10:15; Stop 01/17/17 at 10:16 ; Status DC Midazolam HCl (Versed) 2 mg 1X ONCE IV Last administered on 01/17/17 10:52; Start 01/17/17 at 10:15; Stop 01/17/17 at 10:16; Status DC Fentanyl Citrate (Fentanyl 2ml Vial) 100 mcg 1X ONCE IV Last administered on 01/17/17 10:52; Start 01/17/17 at 10:15; Stop 01/17/17 at 10:16; Status DC Lidocaine/Sodium Bicarbonate (Buffered Lidocaine 1%) 20 ml STK-MED ONCE IJ ; Start 01/17/17 at 10:14; Stop 01/17/17 at 10:15; Status DC Piperacillin Sod/ Tazobactam Sod (Zosyn) 3.375 gm Q6HRS IVP Last administered on 01/18/17 06:00; Start 01/17/17 at 18:00; Stop 01/18/17 at 10:42; Status DC Dexamethasone Sodium Phosphate (Decadron) 4 mg Q12HR IV Last administered on 09:42; Start 01/18/17 at 21:00 Aspirin (Ecotrin) 81 mg DAILYWBKFT PO Last administered on 01/23/17 08:54; Start 01/20/17 at 08:00 Amlodipine Besylate (Norvasc) 10 mg DAILY PO Last administered on 01/24/17 09: 35; Start 01/19/17 at 10:00 Oxycodone HCl (OxyCONTIN) 30 mg Q12HR PO Last administered on 01/24/17 09:35; Start 01/19/17 at 11:45 Senna/Docusate Sodium (Senna Plus) 2 tab DAILY PO Last administered on 08:53; Start 01/19/17 at 12:00 Gadobutrol (Gadavist) 10 mmol 1X ONCE IV ; Start 01/19/17 at 15:45; Stop at 15:46; Status DC Sodium Chloride 1,000 ml @ 75 mls/hr [id number] IV Last administered on 02:12; Start 01/20/17 at 11:15; Stop 01/21/17 at 18:06; Status DC Polyethylene Glycol (miraLAX PACKET) 17 gm DAILY PO Last administered on 10:21; Start 01/20/17 at 15:00 Metoprolol Succinate (Toprol Xl) 50 mg DAILY PO Last administered on 01/24/17 09:35; Start 01/21/17 at 09:00 Bacitracin 93602 unit/Sodium Chloride 1,000 ml @ 1,000 mls/hr 1X PERIOP ONCE IRR ; Start 01/24/17 at 06:00; Stop 01/24/17 at 06:59; Status DC Ondansetron HCl (Zofran) 4 mg PRN Q6HRS PRN IV NAUSEA/VOMITING; Start 01/24/17 at 07:00; Stop 01/25/17 at 06:59 Fentanyl Citrate (Fentanyl 2ml Vial) 25 mcg PRN Q5MIN PRN IV MILD PAIN; Start 01/24/17 at 07:00; Stop 01/25/17 at 06:59 Fentanyl Citrate (Fentanyl 2ml Vial) 50 mcg PRN Q5MIN PRN IV MODERATE PAIN; Start 01/24/17 at 07:00; Stop 01/25/17 at 06:59 Morphine Sulfate 1 mg PRN Q10MIN PRN IV SEVERE PAIN; Start 01/24/17 at 07:00; Stop 01/25/17 at 06:59 Ringer's Solution 1,000 ml @ 30 mls/hr Q24H IV Last administered on 01/24/17t 11:40; Start 01/24/17 at 07:00; Stop 01/24/17 at 18:59 Lidocaine HCl (Xylocaine-Mpf 1% Vial) 2 ml PRN 1X PRN ID IV START; Start at 07:00; Stop 01/25/17 at 06:59 Hydromorphone HCl (Dilaudid) 0.5 mg PRN Q10MIN PRN IV SEV PAIN, Second choice; Start 01/24/17 at 07:00; Stop 01/25/17 at 06:59 Prochlorperazine Edisylate (Compazine) 5 mg PACU PRN PRN IV NAUSEA, MRX1; Start 01/24/17 at 07:00; Stop 01/25/17 at 06:59 Cefazolin Sodium/ Dextrose 50 ml @ 100 mls/hr 1X PREOP PRN IV PRE-OP Last administered on 01/24/17t 12:25; Start 01/23/17 at 13:15; Stop 01/24/17 at 18:00 Gelatin (Gelfoam Size 100) 1 each STK-MED ONCE .ROUTE ; Start 01/24/17 at 07:30 ; Stop 01/24/17 at 07:31; Status DC Bupivacaine HCl/ Epinephrine Bitart (Sensorcain-Mpf Epi 0.5%-1:[id number]) 30 ml STK -MED ONCE .ROUTE ; Start 01/24/17 at 07:31; Stop 01/24/17 at 07:32; Status DC Ketorolac Tromethamine (Toradol For Or Only) 60 mg STK-MED ONCE .ROUTE ; Start 01/24/17 at 07:31; Stop 01/24/17 at 07:32; Status DC Thrombin 20,000 unit STK-MED ONCE TP ; Start 01/24/17 at 07:31; Stop 01/24/17 at 07:32; Status DC Midazolam HCl (Versed) 2 mg STK-MED ONCE .ROUTE ; Start 01/24/17 at 11:05; Stop 01/24/17 at 11:06; Status DC Fentanyl Citrate (Fentanyl 5ml Vial) 250 mcg STK-MED ONCE .ROUTE ; Start at 11:05; Stop 01/24/17 at 11:06; Status DC Rocuronium [place] (Zemuron) 50 mg STK-MED ONCE .ROUTE ; Start 01/24/17 at 11:05 ; Stop 01/24/17 at 11:06; Status DC Remifentanil HCl (Ultiva) 2 mg STK-MED ONCE IV ; Start 01/24/17 at 11:05; Stop 01/24/17 at 11:06; Status DC Propofol 50 ml @ As Directed STK-MED ONCE IV ; Start 01/24/17 at 11:09; Stop at 11:10; Status DC Multi-Ingred Cream/Lotion/Oil/ Oint (Artificial Tears Eye Oint) 7 jose a STK-MED ONCE .ROUTE ; Start 01/24/17 at 11:09; Stop 01/24/17 at 11:10; Status DC Propofol 20 ml @ As Directed STK-MED ONCE IV ; Start 01/24/17 at 11:10; Stop at 11:11; Status DC Lidocaine HCl (Lidocaine Pf 2% Vial) 5 ml STK-MED ONCE .ROUTE ; Start 01/24/17 at 11:10; Stop 01/24/17 at 11:11; Status DC Dexamethasone Sodium Phosphate (Decadron) 20 mg STK-MED ONCE .ROUTE ; Start 01/24/17 at 11:10; Stop 01/24/17 at 11:11; Status DC Ondansetron HCl (Zofran) 4 mg STK-MED ONCE .ROUTE ; Start 01/24/17 at 11:10; Stop 01/24/17 at 11:11; Status DC Desflurane (Suprane) 90 ml STK-MED ONCE IH ; Start 01/24/17 at 11:10; Stop 01/24 at 11:11; Status DC Sodium Chloride (Sodium Chloride) 50 ml STK-MED ONCE IJ ; Start 01/24/17 at 11: 11; Stop 01/24/17 at 11:12; Status DC Phenylephrine HCl 1 mg STK-MED ONCE IV ; Start 01/24/17 at 12:02; Stop 01/24/17 at 12:03; Status DC Glycopyrrolate (Robinul) 1 mg STK-MED ONCE .ROUTE ; Start 01/24/17 at 12:28; Stop 01/24/17 at 12:29; Status DC Neostigmine Methylsulfate 5 mg STK-MED ONCE .ROUTE ; Start 01/24/17 at 12:28; Stop 01/24/17 at 12:29; Status DC Active Scripts Active Reported Imodium A-D (Loperamide HCl) 2 Mg Capsule 2 Mg PO Aspirin 325 Mg Tablet 1 Tab PO DAILY Vitamin D3 (Cholecalciferol (Vitamin D3)) 1,000 Unit Tablet 2,000 Unit PO Vicodin Es 7.5-300 Mg Tablet (Hydrocodone Bit/Acetaminophen) 1 Each Tablet 1 Each PO Q6H PRN Humira (Adalimumab) 40 Mg/0.8 Ml Pen.ij.kit 1 Syr SQ Q2WKS Folbic Rf Tablet (B12/Levomefolate Calcium/B-6) 1 Each Tablet 1 Each PO Omeprazole 40 Mg Capsule.dr 1 Cap PO DAILY Cholestyramine Packet (Cholestyramine (With Sugar)) 4 Gm Powd.pack 4 Gm PO Gabapentin 600 Mg Tablet 600 Mg PO TID Folic Acid 1 Mg Tablet 1 Tab PO DAILY Clonidine Hcl 0.1 Mg Tablet 0.1 Mg PO BID Metformin Hcl 1,000 Mg Tablet 1,000 Mg PO BIDWMEALS Atorvastatin Calcium 40 Mg Tablet 1 Tab PO DAILY Metoprolol Succinate ( Xl ) (Metoprolol Succinate) 100 Mg Tab.er.24h 100 Mg PO BID Vitals/I & O Vital Sign - Last 24 Hours 01/23/17 01/23/17 01/23/17 01/23/17 13:49 14:51 16:28 19:05 Temp 98.2 98.4 98.2 98.4 Pulse 71 54 Resp 21 18 B/P (MAP) 142/67 (92) 154/67 (96) Pulse Ox 99 99 O2 Delivery Nasal Cannula Nasal Cannula Room Air Nasal Cannula O2 Flow Rate 2.0 2.0 2.0 2.0 01/23/17 01/23/17 01/23/17 01/24/17 20:00 21:06 23:05 00:05 Temp 98.1 98.1 Pulse 72 Resp 19 B/P (MAP) 154/70 (98) Pulse Ox 99 96 99 O2 Delivery Nasal Cannula Nasal Cannula Nasal Cannula BiPAP/CPAP O2 Flow Rate 2.0 2.0 2.0 01/24/17 01/24/17 01/24/17 01/24/17 01:06 01:06 03:05 06:10 Temp 98.4 98.4 Pulse 61 Resp 18 B/P (MAP) 155/68 (97) Pulse Ox 99 99 100 O2 Delivery Nasal Cannula Nasal Cannula Nasal Cannula Nasal Cannula O2 Flow Rate 2.0 2.0 2.0 2.0 01/24/17 01/24/17 01/24/17 01/24/17 06:30 07:00 08:10 09:35 Temp 97.8 97.8 Pulse 64 73 Resp 18 B/P (MAP) 140/65 (90) 140/65 Pulse Ox 99 O2 Delivery Nasal Cannula Nasal Cannula Room Air O2 Flow Rate 2.0 2.0 01/24/17 01/24/17 01/24/17 09:35 09:35 11:22 Temp 97.8 97.8 Pulse 73 64 Resp 20 B/P (MAP) 140/65 164/68 Pulse Ox 96 O2 Delivery Room Air Nasal Cannula JESSICA RAMIREZ III DO Jan 24, 2017 13:26
[2017-01-24] MEDS ORDERED: ALBUMIN HUMAN 5% 500 ML IV ONE (14:07)
[2017-01-24] MEDS ORDERED: PROPOFOL 20 ML IV ONE ×2 (14:57→15:09)
[2017-01-24 16:46] LABS: HEMATOCRIT 25.3 % (39.0-53.0); HEMOGLOBIN 8.5 g/dL (13.0-17.5)
[2017-01-24 16:50] LABS: WHITE BLOOD COUNT 6.3 x10^3/uL (4.0-11.0)
[2017-01-24 16:55] LABS: INR 1.3 (0.8-1.1); PROTHROMBIN TIME PATIENT 15.3 SEC (11.7-14.0)
[2017-01-24] MEDS ORDERED: HYDROmorphone 2 MG/ML VIAL ONE (18:07)
[2017-01-24] MEDS ORDERED: fentaNYL PF VIAL 100 MCG/2 ML VIAL ONE (18:07)
[2017-01-24] MEDS: fentaNYL PF VIAL 100 MCG/2 ML VIAL IV PRN ×2 (18:51→19:01)
[2017-01-24 19:38] LABS: HEMATOCRIT 26.6 % (39.0-53.0); HEMOGLOBIN 8.9 g/dL (13.0-17.5); RED BLOOD COUNT 2.86 x10^6/uL (4.30-5.70); RED CELL DISTRIBUTION WIDTH 17.2 % (11.5-14.5); WHITE BLOOD COUNT 14.7 x10^3/uL (4.0-11.0)
[2017-01-24 20:07] LABS: INR 1.3 (0.8-1.1)
[2017-01-24] MEDS: ATORVASTATIN CALCIUM 40 MG TABLET. PO SCH (21:22)
[2017-01-24] MEDS: diazePAM 5 MG TABLET PO PRN (21:22)
[2017-01-24] MEDS: MORPHINE SULFATE 4 MG/ML DISP.SYRIN. IV PRN (22:54)
[2017-01-25] VITALS (23 sets, daily range): BP systolic 96–153; BP diastolic 55–86
[2017-01-25] MEDS: MORPHINE SULFATE 4 MG/ML DISP.SYRIN. IV PRN ×2 (01:25→03:38)
[2017-01-25] MEDS: oxyCODONE/APAP 10/325 1 TAB TABLET PO PRN ×2 (03:39→14:54)
[2017-01-25 05:53] LABS: BASO # 0.1 x10^3/uL (0.0-0.2); BASO % 0 % (0-3); EOS % 0 % (0-3); HEMATOCRIT 23.4 % (39.0-53.0); HEMOGLOBIN 7.9 g/dL (13.0-17.5); LYMPH # 0.7 x10^3/uL (1.0-4.8); LYMPH % 4 % (24-48); MEAN CORPUSCULAR HEMOGLOBIN 31 pg (25-35); MEAN CORPUSCULAR HGB CONC 34 g/dL (31-37); MEAN CORPUSCULAR VOLUME 92 fL (79-100); MONO % 16 % (0-9); NEUT % 79 % (31-73); PLATELET COUNT 156 x10^3/uL (140-400); RED BLOOD COUNT 2.53 x10^6/uL (4.30-5.70); RED CELL DISTRIBUTION WIDTH 17.6 % (11.5-14.5); WHITE BLOOD COUNT 16.3 x10^3/uL (4.0-11.0)
[2017-01-25 06:22] LABS: CALCIUM 7.9 mg/dL (8.5-10.1); CREATININE 1.4 mg/dL (0.7-1.3); POTASSIUM 4.4 mmol/L (3.5-5.1)
[2017-01-25] MEDS: ASPIRIN ENTERIC COATED 81 MG TABLET.DR. PO SCH (08:12)
[2017-01-25] MEDS: PANTOPRAZOLE 40 MG TABLET.DR. PO SCH (08:12)
[2017-01-25] MEDS: LACTOBACILLUS RHAMNOSUS GG 1 CAPSULE. PO SCH ×2 (08:12→20:52)
[2017-01-25] MEDS: SENNOSIDES/DOCUSATE 8.6/50MG TABLET. PO SCH (08:13)
[2017-01-25] MEDS: oxyCODONE ER 15 MG TAB.ER.12H PO SCH ×2 (08:13→20:53)
[2017-01-25] MEDS: CHOLECALCIFEROL (VITAMIN D3) 1,000 UNIT TABLET PO SCH (08:13)
[2017-01-25] MEDS: FOLIC ACID 1 MG TABLET. PO SCH (08:14)
[2017-01-25] MEDS: POLYETHYLENE GLYCOL 3350 17 GM PACKET. PO SCH (08:14)
[2017-01-25] MEDS: GABAPENTIN 300 MG CAPSULE. PO SCH ×3 (08:14→20:52)
[2017-01-25] MEDS: INSULIN ASPART 300 UNITS/3 ML INSULN.PEN SQ SCH ×3 (08:20→17:05)
[2017-01-25] MEDS: amLODIPine BESYLATE 10 MG TABLET PO SCH (09:00)
--- NOTE | 2017-01-25 09:39 | PDOC ---
PROGRESS NOTES Subjective Subjective pod #1 in bed back pain/ incisional pain Objective Objective Vital Signs Date Time Temp Pulse Resp B/P (MAP) Pulse Ox O2 Delivery O2 Flow Rate FiO2 01/25/17 08:32 97.7 89 14 119/61 (80) 98 Nasal Cannula 2.0 97.7 Physical Exam General: Alert, Cooperative MUSCULOSKELETAL: Other (SUN) Neuro: Normal speech, Other (strength 5/5 in BLE) Skin: Other (Dressing dry, flat and intact, drain in place) Assessment Assessment Problems Medical Problems: (1) Elevated d-dimer Status: Acute (2) Elevated serum creatinine Status: Acute (3) Hypoxia Status: Acute (4) Lactic acidosis Status: Acute (5) 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 Labs Laboratory Tests Test 01/23/17 11:51 01/23/17 17:02 01/23/17 21:00 01/24/17 06:00 Glucose (Fingerstick) 134 mg/dL (70-99) 125 mg/dL (70-99) 122 mg/dL (70-99) White Blood Count 8.8 x10^3/uL (4.0-11.0) Red Blood Count 2.68 x10^6/uL (4.30-5.70) Hemoglobin 8.7 g/dL (13.0-17.5) Hematocrit 26.3 % (39.0-53.0) Mean Corpuscular Volume 98 fL (79-100) Mean Corpuscular Hemoglobin 32 pg (25-35) Mean Corpuscular Hemoglobin Concent 33 g/dL (31-37) Red Cell Distribution Width 18.3 % (11.5-14.5) Platelet Count 168 x10^3/uL (140-400) Neutrophils (%) (Auto) 81 % (31-73) Lymphocytes (%) (Auto) 7 % (24-48) Monocytes (%) (Auto) 12 % (0-9) Eosinophils (%) (Auto) 0 % (0-3) Basophils (%) (Auto) 0 % (0-3) Neutrophils # (Auto) 7.1 x10^3uL (1.8-7.7) Lymphocytes # (Auto) 0.6 x10^3/uL (1.0-4.8) Monocytes # (Auto) 1.1 x10^3/uL (0.0-1.1) Eosinophils # (Auto) 0.0 x10^3/uL (0.0-0.7) Basophils # (Auto) 0.0 x10^3/uL (0.0-0.2) Sodium Level 137 mmol/L (136-145) Potassium Level 4.4 mmol/L (3.5-5.1) Chloride Level 100 mmol/L (98-107) Carbon Dioxide Level 30 mmol/L (21-32) Anion Gap 7 (6-14) Blood Urea Nitrogen 32 mg/dL (8-26) Creatinine 1.3 mg/dL (0.7-1.3) Estimated GFR (Cockcroft-Gault) 54.4 Glucose Level 133 mg/dL (70-99) Calcium Level 8.6 mg/dL (8.5-10.1) Test 01/24/17 07:20 01/24/17 16:35 01/24/17 19:30 01/24/17 22:50 Glucose (Fingerstick) 134 mg/dL (70-99) 140 mg/dL (70-99) White Blood Count 6.3 x10^3/uL (4.0-11.0) 14.7 x10^3/uL (4.0-11.0) Hemoglobin 8.5 g/dL (13.0-17.5) 8.9 g/dL (13.0-17.5) Hematocrit 25.3 % (39.0-53.0) 26.6 % (39.0-53.0) Platelet Count 146 x10^3/uL (140-400) 177 x10^3/uL (140-400) Prothrombin Time 15.3 SEC (11.7-14.0) 15.0 SEC (11.7-14.0) Prothromb Time International Ratio 1.3 (0.8-1.1) 1.3 (0.8-1.1) Activated Partial Thromboplast Time 35 SEC (24-38) 33 SEC (24-38) Fibrinogen 281 mg/dL (200-440) Red Blood Count 2.86 x10^6/uL (4.30-5.70) Mean Corpuscular Volume 93 fL (79-100) Mean Corpuscular Hemoglobin 31 pg (25-35) Mean Corpuscular Hemoglobin Concent 34 g/dL (31-37) Red Cell Distribution Width 17.2 % (11.5-14.5) Test 01/25/17 05:40 01/25/17 08:20 White Blood Count 16.3 x10^3/uL (4.0-11.0) Red Blood Count 2.53 x10^6/uL (4.30-5.70) Hemoglobin 7.9 g/dL (13.0-17.5) Hematocrit 23.4 % (39.0-53.0) Mean Corpuscular Volume 92 fL (79-100) Mean Corpuscular Hemoglobin 31 pg (25-35) Mean Corpuscular Hemoglobin Concent 34 g/dL (31-37) Red Cell Distribution Width 17.6 % (11.5-14.5) Platelet Count 156 x10^3/uL (140-400) Neutrophils (%) (Auto) 79 % (31-73) Lymphocytes (%) (Auto) 4 % (24-48) Monocytes (%) (Auto) 16 % (0-9) Eosinophils (%) (Auto) 0 % (0-3) Basophils (%) (Auto) 0 % (0-3) Neutrophils # (Auto) 12.9 x10^3uL (1.8-7.7) Lymphocytes # (Auto) 0.7 x10^3/uL (1.0-4.8) Monocytes # (Auto) 2.6 x10^3/uL (0.0-1.1) Eosinophils # (Auto) 0.0 x10^3/uL (0.0-0.7) Basophils # (Auto) 0.1 x10^3/uL (0.0-0.2) Sodium Level 139 mmol/L (136-145) Potassium Level 4.4 mmol/L (3.5-5.1) Chloride Level 103 mmol/L (98-107) Carbon Dioxide Level 27 mmol/L (21-32) Anion Gap 9 (6-14) Blood Urea Nitrogen 38 mg/dL (8-26) Creatinine 1.4 mg/dL (0.7-1.3) Estimated GFR (Cockcroft-Gault) 50.0 Glucose Level 150 mg/dL (70-99) Calcium Level 7.9 mg/dL (8.5-10.1) Glucose (Fingerstick) 130 mg/dL (70-99) Laboratory Tests Test 01/24/17 16:35 01/24/17 19:30 01/24/17 22:50 01/25/17 05:40 White Blood Count 6.3 x10^3/uL (4.0-11.0) 14.7 x10^3/uL (4.0-11.0) 16.3 x10^3/uL (4.0-11.0) Hemoglobin 8.5 g/dL (13.0-17.5) 8.9 g/dL (13.0-17.5) 7.9 g/dL (13.0-17.5) Hematocrit 25.3 % (39.0-53.0) 26.6 % (39.0-53.0) 23.4 % (39.0-53.0) Platelet Count 146 x10^3/uL (140-400) 177 x10^3/uL (140-400) 156 x10^3/uL (140-400) Prothrombin Time 15.3 SEC (11.7-14.0) 15.0 SEC (11.7-14.0) Prothromb Time International Ratio 1.3 (0.8-1.1) 1.3 (0.8-1.1) Activated Partial Thromboplast Time 35 SEC (24-38) 33 SEC (24-38) Fibrinogen 281 mg/dL (200-440) Red Blood Count 2.86 x10^6/uL (4.30-5.70) 2.53 x10^6/uL (4.30-5.70) Mean Corpuscular Volume 93 fL (79-100) 92 fL (79-100) Mean Corpuscular Hemoglobin 31 pg (25-35) 31 pg (25-35) Mean Corpuscular Hemoglobin Concent 34 g/dL (31-37) 34 g/dL (31-37) Red Cell Distribution Width 17.2 % (11.5-14.5) 17.6 % (11.5-14.5) Glucose (Fingerstick) 140 mg/dL (70-99) Neutrophils (%) (Auto) 79 % (31-73) Lymphocytes (%) (Auto) 4 % (24-48) Monocytes (%) (Auto) 16 % (0-9) Eosinophils (%) (Auto) 0 % (0-3) Basophils (%) (Auto) 0 % (0-3) Neutrophils # (Auto) 12.9 x10^3uL (1.8-7.7) Lymphocytes # (Auto) 0.7 x10^3/uL (1.0-4.8) Monocytes # (Auto) 2.6 x10^3/uL (0.0-1.1) Eosinophils # (Auto) 0.0 x10^3/uL (0.0-0.7) Basophils # (Auto) 0.1 x10^3/uL (0.0-0.2) Sodium Level 139 mmol/L (136-145) Potassium Level 4.4 mmol/L (3.5-5.1) Chloride Level 103 mmol/L (98-107) Carbon Dioxide Level 27 mmol/L (21-32) Anion Gap 9 (6-14) Blood Urea Nitrogen 38 mg/dL (8-26) Creatinine 1.4 mg/dL (0.7-1.3) Estimated GFR (Cockcroft-Gault) 50.0 Glucose Level 150 mg/dL (70-99) Calcium Level 7.9 mg/dL (8.5-10.1) Test 01/25/17 08:20 Glucose (Fingerstick) 130 mg/dL (70-99) Microbiology 01/15/17 Blood Culture - Final, Complete NO GROWTH AFTER 5 DAYS Medications Current Medications Fentanyl Citrate (Fentanyl 2ml Vial) 50 mcg 1X ONCE IV Last administered on 21:52; Start 01/15/17 at 22:00; Stop 01/15/17 at 22:01; Status DC Sodium Chloride 1,000 ml @ 150 mls/hr 1X ONCE IV Last administered on 22:31; Start 01/15/17 at 22:00; Stop 01/16/17 at 04:39; Status DC Piperacillin Sod/ Tazobactam Sod 3.375 gm/Dextrose 50 ml @ 100 mls/hr 1X ONCE IV Last administered on 01/15/17 23:22; Start 01/15/17 at 23:30; Stop 01/15 at 23:59; Status DC Heparin Sodium (Porcine) (Heparin Sodium) 9,450 unit 1X ONCE IV Last administered on 01/15/17 23:30; Start 01/15/17 at 23:30; Stop 01/16/17 at 16 :41; Status DC Heparin Sodium/ Dextrose 500 ml @ 0 mls/hr CONT PRN IV SEE I/O RECORD Last administered on 01/16/17 16:26; Start 01/15/17 at 23:15; Stop 01/16/17 at 16 :41; Status DC Heparin Sodium (Porcine) (Heparin Sodium) 3,550 unit PRN Q6HRS PRN IV FOR UFH LEVEL LESS THAN 0.2; Start 01/15/17 at 23:15; Stop 01/16/17 at 16:41; Status DC Heparin Sodium (Porcine) (Heparin Sodium) 1,750 unit PRN Q6HRS PRN IV FOR UFH LEVEL 0.2 - 0.29; Start 01/15/17 at 23:15; Stop 01/16/17 at 16:41; Status DC Warfarin Sodium (Coumadin Per Pharmacy) 1 each PRN DAILY PRN MC PER PROTOCOL Last administered on 01/16/17 10:20; Start 01/15/17 at 23:15; Stop 01/16/17 at 16:39; Status DC Info (Anti-Coagulation Monitoring By Pharmacy) 1 each PRN DAILY PRN MC SEE COMMENTS Last administered on 01/16/17 10:17; Start 01/15/17 at 23:30; Stop 01/18/17 at 14:31; Status DC Ondansetron HCl (Zofran) 4 mg PRN Q8HRS PRN IV NAUSEA/VOMITING; Start at 23:15; Stop 01/16/17 at 23:14; Status DC Fentanyl Citrate (Fentanyl 2ml Vial) 50 mcg PRN Q2HR PRN IV SEVERE PAIN Last administered on 01/16/17 01:33; Start 01/15/17 at 23:15; Stop 01/16/17 at 02 :47; Status DC Piperacillin Sod/ Tazobactam Sod (Zosyn Per Pharmacy) 1 each PRN DAILY PRN MC SEE COMMENTS; Start 01/15/17 at 23:15; Stop 01/16/17 at 02:54; Status DC Sodium Chloride 1,000 ml @ 150 mls/hr 1X ONCE IV Last administered on 01:34; Start 01/15/17 at 23:45; Stop 01/16/17 at 06:24; Status DC Albuterol Sulfate (Ventolin Neb Soln) 2.5 mg PRN Q3HRS PRN NEB WHEEZING Last administered on 01/16/17 11:24; Start 01/15/17 at 23:30 Morphine Sulfate 2 mg 1X ONCE IV Last administered on 01/15/17 23:47; Start 01/16/17 at 00:00; Stop 01/16/17 at 00:01; Status DC Fentanyl Citrate (Fentanyl 2ml Vial) 75 mcg PRN Q2HR PRN IV SEVERE PAIN Last administered on 01/16/17 13:56; Start 01/16/17 at 02:45; Stop 01/16/17 at 16 :41; Status DC Piperacillin Sod/ Tazobactam Sod (Zosyn Per Pharmacy) 1 each PRN DAILY PRN MC SEE COMMENTS; Start 01/16/17 at 02:45; Stop 01/17/17 at 16:01; Status DC Piperacillin Sod/ Tazobactam Sod (Zosyn) 2.25 gm Q6HRS IVP Last administered on 01/17/17 12:01; Start 01/16/17 at 06:00; Stop 01/17/17 at 16:01; Status DC Info (Anti-Coagulation Monitoring By Pharmacy) 1 each PRN DAILY PRN MC SEE COMMENTS; Start 01/16/17 at 09:45; Status Cancel Warfarin Sodium (Coumadin) 5 mg 1X WARF ONCE PO ; Start 01/16/17 at 16:00; Stop 01/16/17 at 16:39; Status DC Lactobacillus Rhamnosus (Culturelle) 1 cap BID PO Last administered on 08:12; Start 01/16/17 at 21:00 Magnesium Sulfate/ Dextrose 50 ml @ 25 mls/hr 1X ONCE IV Last administered on 01/16/17 12:45; Start 01/16/17 at 11:30; Stop 01/16/17 at 13:29; Status DC Linezolid 300 ml @ 300 mls/hr Q12HR IV Last administered on 01/16/17 20:58; Start 01/16/17 at 12:00; Stop 01/17/17 at 08:14; Status DC Iohexol (Omnipaque 240 Mg/ml) 30 ml 1X ONCE PO ; Start 01/16/17 at 12:00; Stop 01/16/17 at 12:01; Status DC Info (Do NOT chart on this entry -- for MONITORING) 1 each PRN DAILY PRN MC SEE COMMENTS; Start 01/16/17 at 12:00; Stop 01/18/17 at 11:59; Status DC Magnesium Sulfate/ Dextrose 50 ml @ 25 mls/hr PRN DAILY PRN IV for Mag < 1.7 on am labs; Start 01/16/17 at 13:15 Metoprolol Succinate (Toprol Xl) 50 mg BID PO Last administered on 01/21/17 08 :11; Start 01/16/17 at 21:00; Stop 01/21/17 at 08:33; Status DC Sodium Chloride 1,000 ml @ 100 mls/hr Q10H IV Last administered on 01/18/17 05:45; Start 01/16/17 at 13:45; Stop 01/18/17 at 11:44; Status DC Aspirin (Charmaine Aspirin) 325 mg DAILYWBKFT PO Last administered on 01/19/17 08: 35; Start 01/17/17 at 08:00; Stop 01/19/17 at 09:49; Status DC Atorvastatin Calcium (Lipitor) 40 mg QHS PO Last administered on 01/24/17 21: 22; Start 01/16/17 at 21:00 Vitamin D (Vitamin D3) 2,000 unit DAILY PO Last administered on 01/25/17 08:13 ; Start 01/17/17 at 09:00 Clonidine HCl (Catapres) 0.1 mg BID PO Last administered on 01/19/17 08:35; Start 01/16/17 at 21:00; Stop 01/19/17 at 09:52; Status DC Folic Acid (Folic Acid) 1 mg DAILY PO Last administered on 01/25/17 08:14; Start 01/17/17 at 09:00 Loperamide HCl (Imodium) 2 mg Q2H PRN PO diarrhea; Start 01/16/17 at 16:45 Metoprolol Succinate (Toprol Xl) 100 mg BID PO ; Start 01/16/17 at 21:00; Status UNV Gabapentin (Neurontin) 600 mg TID PO Last administered on 01/25/17 08:14; Start 01/16/17 at 21:00 Pantoprazole Sodium (Protonix) 40 mg DAILYAC PO Last administered on 01/25/17 08:12; Start 01/17/17 at 07:30 Insulin Aspart (NovoLOG) 0-9 UNITS TIDWMEALS SQ Last administered on 01/22/17 17:00; Start 01/16/17 at 17:00 Dextrose (Dextrose 50%-Water Syringe) 12.5 gm PRN Q15MIN PRN IV SEE COMMENTS; Start 01/16/17 at 16:45 Dexamethasone Sodium Phosphate (Decadron) 10 mg 1X ONCE IV Last administered on 01/16/17 17:05; Start 01/16/17 at 16:45; Stop 01/16/17 at 16:46; Status DC Dexamethasone Sodium Phosphate (Decadron) 4 mg Q6HRS IV Last administered on 05:58; Start 01/17/17 at 00:00; Stop 01/18/17 at 15:31; Status DC Morphine Sulfate 2 mg PRN Q2HR PRN IV PAIN Last administered on 01/24/17 19:52 ; Start 01/16/17 at 16:45; Stop 01/24/17 at 22:39; Status DC Oxycodone/ Acetaminophen (Percocet 10/325) 1 tab PRN Q4HRS PRN PO pain Last administered on 01/25/17 03:39; Start 01/16/17 at 16:45 Heparin Sodium (Porcine) (Heparin Sq) 5,000 unit Q8HRS SQ Last administered on 01/23/17 06:00; Start 01/16/17 at 22:00; Stop 01/23/17 at 13:16; Status DC Diazepam (Valium) 5 mg PRN Q6HRS PRN IV SEIZURES; Start 01/16/17 at 18:30; Status Cancel Diazepam (Valium) 5 mg PRN Q6HRS PRN PO TREMORS Last administered on 01/24/17 21:22; Start 01/16/17 at 18:45 Fentanyl Citrate (Fentanyl 2ml Vial) 100 mcg STK-MED ONCE .ROUTE ; Start at 10:08; Stop 01/17/17 at 10:09; Status DC Midazolam HCl (Versed) 2 mg STK-MED ONCE .ROUTE ; Start 01/17/17 at 10:08; Stop 01/17/17 at 10:09; Status DC Lidocaine/Sodium Bicarbonate (Buffered Lidocaine 1%) 20 ml 1X ONCE IJ Last administered on 01/17/17 10:51; Start 01/17/17 at 10:15; Stop 01/17/17 at 10:16 ; Status DC Midazolam HCl (Versed) 2 mg 1X ONCE IV Last administered on 01/17/17 10:52; Start 01/17/17 at 10:15; Stop 01/17/17 at 10:16; Status DC Fentanyl Citrate (Fentanyl 2ml Vial) 100 mcg 1X ONCE IV Last administered on 01/17/17 10:52; Start 01/17/17 at 10:15; Stop 01/17/17 at 10:16; Status DC Lidocaine/Sodium Bicarbonate (Buffered Lidocaine 1%) 20 ml STK-MED ONCE IJ ; Start 01/17/17 at 10:14; Stop 01/17/17 at 10:15; Status DC Piperacillin Sod/ Tazobactam Sod (Zosyn) 3.375 gm Q6HRS IVP Last administered on 01/18/17 06:00; Start 01/17/17 at 18:00; Stop 01/18/17 at 10:42; Status DC Dexamethasone Sodium Phosphate (Decadron) 4 mg Q12HR IV Last administered on 21:22; Start 01/18/17 at 21:00 Aspirin (Ecotrin) 81 mg DAILYWBKFT PO Last administered on 01/25/17 08:12; Start 01/20/17 at 08:00 Amlodipine Besylate (Norvasc) 10 mg DAILY PO Last administered on 01/24/17 09: 35; Start 01/19/17 at 10:00 Oxycodone HCl (OxyCONTIN) 30 mg Q12HR PO Last administered on 01/25/17 08:13; Start 01/19/17 at 11:45 Senna/Docusate Sodium (Senna Plus) 2 tab DAILY PO Last administered on 08:13; Start 01/19/17 at 12:00 Gadobutrol (Gadavist) 10 mmol 1X ONCE IV ; Start 01/19/17 at 15:45; Stop at 15:46; Status DC Sodium Chloride 1,000 ml @ 75 mls/hr [id number] IV Last administered on 02:12; Start 01/20/17 at 11:15; Stop 01/21/17 at 18:06; Status DC Polyethylene Glycol (miraLAX PACKET) 17 gm DAILY PO Last administered on 08:14; Start 01/20/17 at 15:00 Metoprolol Succinate (Toprol Xl) 50 mg DAILY PO Last administered on 01/24/17 09:35; Start 01/21/17 at 09:00 Bacitracin 66226 unit/Sodium Chloride 1,000 ml @ 1,000 mls/hr 1X PERIOP ONCE IRR Last administered on 01/24/17 12:59; Start 01/24/17 at 06:00; Stop at 06:59; Status DC Ondansetron HCl (Zofran) 4 mg PRN Q6HRS PRN IV NAUSEA/VOMITING; Start 01/24/17 at 07:00; Stop 01/25/17 at 06:59; Status DC Fentanyl Citrate (Fentanyl 2ml Vial) 25 mcg PRN Q5MIN PRN IV MILD PAIN; Start 01/24/17 at 07:00; Stop 01/24/17 at 22:48; Status DC Fentanyl Citrate (Fentanyl 2ml Vial) 50 mcg PRN Q5MIN PRN IV MODERATE PAIN Last administered on 01/24/17 19:01; Start 01/24/17 at 07:00; Stop 01/24/17 at 22:48; Status DC Morphine Sulfate 1 mg PRN Q10MIN PRN IV SEVERE PAIN; Start 01/24/17 at 07:00; Stop 01/24/17 at 22:48; Status DC Ringer's Solution 1,000 ml @ 30 mls/hr Q24H IV Last administered on 01/24/17 11:40; Start 01/24/17 at 07:00; Stop 01/24/17 at 18:59; Status DC Lidocaine HCl (Xylocaine-Mpf 1% Vial) 2 ml PRN 1X PRN ID IV START; Start at 07:00; Stop 01/25/17 at 06:59; Status DC Hydromorphone HCl (Dilaudid) 0.5 mg PRN Q10MIN PRN IV SEV PAIN, Second choice; Start 01/24/17 at 07:00; Stop 01/24/17 at 22:48; Status DC Prochlorperazine Edisylate (Compazine) 5 mg PACU PRN PRN IV NAUSEA, MRX1; Start 01/24/17 at 07:00; Stop 01/24/17 at 22:48; Status DC Cefazolin Sodium/ Dextrose 50 ml @ 100 mls/hr 1X PREOP PRN IV PRE-OP Last administered on 01/24/17 12:25; Start 01/23/17 at 13:15; Stop 01/24/17 at 18:00 ; Status DC Gelatin (Gelfoam Size 100) 1 each STK-MED ONCE .ROUTE Last administered on 12:59; Start 01/24/17 at 07:30; Stop 01/24/17 at 07:31; Status DC Bupivacaine HCl/ Epinephrine Bitart (Sensorcain-Mpf Epi 0.5%-1:[id number]) 30 ml STK -MED ONCE .ROUTE Last administered on 01/24/17 12:59; Start 01/24/17 at 07:31 ; Stop 01/24/17 at 07:32; Status DC Ketorolac Tromethamine (Toradol For Or Only) 60 mg STK-MED ONCE .ROUTE Last administered on 01/24/17 12:59; Start 01/24/17 at 07:31; Stop 01/24/17 at 07:32 ; Status DC Thrombin 20,000 unit STK-MED ONCE TP Last administered on 01/24/17 12:59; Start 01/24/17 at 07:31; Stop 01/24/17 at 07:32; Status DC Midazolam HCl (Versed) 2 mg STK-MED ONCE .ROUTE ; Start 01/24/17 at 11:05; Stop 01/24/17 at 11:06; Status DC Fentanyl Citrate (Fentanyl 5ml Vial) 250 mcg STK-MED ONCE .ROUTE ; Start at 11:05; Stop 01/24/17 at 11:06; Status DC Rocuronium [place] (Zemuron) 50 mg STK-MED ONCE .ROUTE ; Start 01/24/17 at 11:05 ; Stop 01/24/17 at 11:06; Status DC Remifentanil HCl (Ultiva) 2 mg STK-MED ONCE IV ; Start 01/24/17 at 11:05; Stop 01/24/17 at 11:06; Status DC Propofol 50 ml @ As Directed STK-MED ONCE IV ; Start 01/24/17 at 11:09; Stop at 11:10; Status DC Multi-Ingred Cream/Lotion/Oil/ Oint (Artificial Tears Eye Oint) 7 jose a STK-MED ONCE .ROUTE ; Start 01/24/17 at 11:09; Stop 01/24/17 at 11:10; Status DC Propofol 0 ml @ As Directed STK-MED ONCE IV ; Start 01/24/17 at 11:10; Stop 01/24/17 at 11:11; Status DC Lidocaine HCl (Lidocaine Pf 2% Vial) 5 ml STK-MED ONCE .ROUTE ; Start 01/24/17 at 11:10; Stop 01/24/17 at 11:11; Status DC Dexamethasone Sodium Phosphate (Decadron) 20 mg STK-MED ONCE .ROUTE ; Start 01/24/17 at 11:10; Stop 01/24/17 at 11:11; Status DC Ondansetron HCl (Zofran) 4 mg STK-MED ONCE .ROUTE ; Start 01/24/17 at 11:10; Stop 01/24/17 at 11:11; Status DC Desflurane (Suprane) 90 ml STK-MED ONCE IH ; Start 01/24/17 at 11:10; Stop 01/24 at 11:11; Status DC Sodium Chloride (Sodium Chloride) 50 ml STK-MED ONCE IJ ; Start 01/24/17 at 11: 11; Stop 01/24/17 at 11:12; Status DC Phenylephrine HCl 1 mg STK-MED ONCE IV ; Start 01/24/17 at 12:02; Stop 01/24/17 at 12:03; Status DC Glycopyrrolate (Robinul) 1 mg STK-MED ONCE .ROUTE ; Start 01/24/17 at 12:28; Stop 01/24/17 at 12:29; Status DC Neostigmine Methylsulfate 5 mg STK-MED ONCE .ROUTE ; Start 01/24/17 at 12:28; Stop 01/24/17 at 12:29; Status DC Ephedrine Sulfate (Akovaz) 50 mg STK-MED ONCE .ROUTE ; Start 01/24/17 at 14:05; Stop 01/24/17 at 14:06; Status DC Albumin Human 500 ml @ As Directed STK-MED ONCE IV ; Start 01/24/17 at 14:07; Stop 01/24/17 at 14:08; Status DC Remifentanil HCl (Ultiva) 2 mg STK-MED ONCE IV ; Start 01/24/17 at 14:55; Stop 01/24/17 at 14:56; Status DC Propofol 50 ml @ As Directed STK-MED ONCE IV ; Start 01/24/17 at 14:57; Stop at 14:58; Status DC Propofol 20 ml @ As Directed STK-MED ONCE IV ; Start 01/24/17 at 14:57; Stop at 14:58; Status DC Propofol 20 ml @ As Directed STK-MED ONCE IV ; Start 01/24/17 at 15:09; Stop at 15:10; Status DC Propofol 50 ml @ As Directed STK-MED ONCE IV ; Start 01/24/17 at 15:50; Stop at 15:51; Status DC Cefazolin Sodium/ Dextrose 50 ml @ As Directed STK-MED ONCE IV ; Start 01/24/17 at 16:20; Stop 01/24/17 at 16:21; Status DC Phenylephrine HCl 1 mg STK-MED ONCE IV ; Start 01/24/17 at 16:54; Stop 01/24/17 at 16:55; Status DC Propofol 50 ml @ As Directed STK-MED ONCE IV ; Start 01/24/17 at 17:10; Stop at 17:11; Status DC Remifentanil HCl (Ultiva) 2 mg STK-MED ONCE IV ; Start 01/24/17 at 17:10; Stop 01/24/17 at 17:11; Status DC Propofol 50 ml @ As Directed STK-MED ONCE IV ; Start 01/24/17 at 17:30; Stop at 17:31; Status DC Hydromorphone HCl (Dilaudid) 2 mg STK-MED ONCE .ROUTE ; Start 01/24/17 at 18:07 ; Stop 01/24/17 at 18:08; Status DC Fentanyl Citrate (Fentanyl 2ml Vial) 100 mcg STK-MED ONCE .ROUTE ; Start at 18:07; Stop 01/24/17 at 18:08; Status DC Morphine Sulfate 2 mg PRN Q2HR PRN IV SEVERE PAIN Last administered on t 03:38; Start 01/24/17 at 22:45 Active Scripts Active Reported Imodium A-D (Loperamide HCl) 2 Mg Capsule 2 Mg PO Aspirin 325 Mg Tablet 1 Tab PO DAILY Vitamin D3 (Cholecalciferol (Vitamin D3)) 1,000 Unit Tablet 2,000 Unit PO Vicodin Es 7.5-300 Mg Tablet (Hydrocodone Bit/Acetaminophen) 1 Each Tablet 1 Each PO Q6H PRN Humira (Adalimumab) 40 Mg/0.8 Ml Pen.ij.kit 1 Syr SQ Q2WKS Folbic Rf Tablet (B12/Levomefolate Calcium/B-6) 1 Each Tablet 1 Each PO Omeprazole 40 Mg Capsule.dr 1 Cap PO DAILY Cholestyramine Packet (Cholestyramine (With Sugar)) 4 Gm Powd.pack 4 Gm PO Gabapentin 600 Mg Tablet 600 Mg PO TID Folic Acid 1 Mg Tablet 1 Tab PO DAILY Clonidine Hcl 0.1 Mg Tablet 0.1 Mg PO BID Metformin Hcl 1,000 Mg Tablet 1,000 Mg PO BIDWMEALS Atorvastatin Calcium 40 Mg Tablet 1 Tab PO DAILY Metoprolol Succinate ( Xl ) (Metoprolol Succinate) 100 Mg Tab.er.24h 100 Mg PO BID Vitals/I & O Vital Sign - Last 24 Hours 01/24/17 01/24/17 01/24/17 01/24/17 11:22 18:39 18:45 18:51 Temp 97.8 97.7 97.7 97.8 97.7 97.7 Pulse 64 66 72 Resp 20 18 16 B/P (MAP) 164/68 136/66 136/66 (89) Pulse Ox 96 100 100 100 O2 Delivery Nasal Cannula Simple Mask Simple Mask Simple Mask O2 Flow Rate 10 10.0 10.0 01/24/17 01/24/17 01/24/17 01/24/17 18:54 19:00 19:01 19:09 Temp 98.8 98.8 Pulse 73 68 68 Resp 18 15 18 16 B/P (MAP) 124/69 124/69 (87) 148/61 Pulse Ox 100 100 100 100 O2 Delivery Simple Mask Simple Mask Simple Mask Room Air O2 Flow Rate 10 10.0 10.0 01/24/17 01/24/17 01/24/17 01/24/17 19:15 19:21 19:30 19:30 Pulse 70 78 Resp 16 15 16 B/P (MAP) 148/61 (90) 153/68 (96) Pulse Ox 94 94 94 O2 Delivery Room Air Room Air Mask Room Air O2 Flow Rate 10.0 01/24/17 01/24/17 01/24/17 01/24/17 19:52 20:00 20:10 20:22 Pulse 85 Resp 20 21 20 18 B/P (MAP) 117/65 (82) Pulse Ox 99 96 98 97 O2 Delivery Room Air Room Air Room Air Room Air 01/24/17 01/24/17 01/24/17 01/24/17 21:00 21:23 22:00 22:54 Pulse 101 93 Resp 14 15 16 16 B/P (MAP) 140/68 (92) 138/64 (88) Pulse Ox 95 96 94 96 O2 Delivery BiPAP/CPAP BiPAP/CPAP BiPAP/CPAP BiPAP/CPAP 01/24/17 01/25/17 01/25/17 01/25/17 23:00 00:00 00:00 00:00 Temp 98.5 98.5 Pulse 88 86 Resp 10 16 B/P (MAP) 139/72 (94) 150/71 (97) Pulse Ox 93 99 O2 Delivery Room Air Room Air Room Air 01/25/17 01/25/17 01/25/17 01/25/17 01:00 01:23 01:25 02:00 Pulse 77 72 Resp 11 16 16 9 B/P (MAP) 138/57 (84) 109/60 (76) Pulse Ox 99 100 100 100 O2 Delivery Nasal Cannula Nasal Cannula Nasal Cannula Nasal Cannula O2 Flow Rate 2.0 2.0 2.0 2.0 01/25/17 01/25/17 01/25/17 01/25/17 03:00 03:38 03:39 04:00 Temp 98.6 98.6 Pulse 74 71 Resp 8 27 27 8 B/P (MAP) 97/55 (69) 110/57 (74) Pulse Ox 100 100 100 100 O2 Delivery Nasal Cannula Nasal Cannula Nasal Cannula Nasal Cannula O2 Flow Rate 2.0 2.0 2.0 2.0 01/25/17 01/25/17 01/25/17 01/25/17 04:00 04:08 04:39 05:00 Pulse 93 Resp 16 16 30 B/P (MAP) 105/59 (74) Pulse Ox 100 96 100 O2 Delivery Nasal Cannula Nasal Cannula Nasal Cannula Nasal Cannula O2 Flow Rate 2.0 2.0 2.0 2.0 01/25/17 01/25/17 01/25/17 01/25/17 06:00 07:00 08:00 08:13 Temp 98.6 98.6 98.6 98.6 Pulse 81 81 81 Resp 8 B/P (MAP) 99/67 (78) 107/55 (72) 107/55 (72) Pulse Ox 98 99 99 98 O2 Delivery Nasal Cannula Nasal Cannula Nasal Cannula Nasal Cannula O2 Flow Rate 2.0 3.0 2.0 2.0 01/25/17 08:32 Temp 97.7 97.7 Pulse 89 Resp 14 B/P (MAP) 119/61 (80) Pulse Ox 98 O2 Delivery Nasal Cannula O2 Flow Rate 2.0 NADINE ARCE MD Jan 25, 2017 09:39
--- NOTE | 2017-01-25 10:36 | PDOC ---
PROGRESS NOTES Subjective Subjective c/c - f/u of bone lesions ROS - confused Objective Objective Vital Signs Date Time Temp Pulse Resp B/P (MAP) Pulse Ox O2 Delivery O2 Flow Rate FiO2 01/25/17 09:55 97.9 92 16 113/64 (80) 99 1.0 97.9 01/25/17 08:32 Nasal Cannula Intake and Output 01/26/17 07:00 Intake Total 240 ml Output Total 150 ml Balance 90 ml Intake Oral 240 ml Output Urine Total 150 ml Physical Exam General: No acute distress Neck: No JVD Assessment Assessment Problems Medical Problems: (1) Elevated d-dimer Status: Acute (2) Elevated serum creatinine Status: Acute (3) Hypoxia Status: Acute (4) Lactic acidosis Status: Acute (5) 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 Bone lesions. He also has multiple other lesions in the spine. Thought to be benign. Bone scan does not reveal uptake and hence multiple myeloma is suspected. Myeloma labs normal. Bone survey 01/18/17: Sclerotic foci in the cervical spine. These are likely benign in view of the lack of abnormal uptake on the current bone scan. Distracted Chance type fracture of the L3 vertebral body, better demonstrated on previous CT images. Since the CT chest, abdomen and pelvis did not reveal a clear primary focus, he had biopsy of the L3 vertebral lesion - done 01/17/17, non-diagnostic. I d/w IR, he feels that this may just be an acute fracture. MRI reviewed. There is autofusion of L1-L2 and L3-L5 with a distracted fracture extending through the anterior, middle and posterior columns of the L3 vertebrae as well as the posterior elements at the L3 vertebral level compatible with a Chance fracture. There is disruption of the anterior and posterior longitudinal ligaments as well as the posterior ligamentous complex. There is an epidural hematoma resulting in severe spinal canal stenosis and likely cauda equina syndrome. s/p Surgery 01/24/17. Hematoma noted. PSA normal. 2. Left renal lesion, u/s ultrasound of the kidney does not reveal malignancy. 3. Anemia. This is likely secondary to malignancy. I will continue to monitor. Comment Review of Relevant I have reviewed the following items bernadine (where applicable) has been applied. Labs Laboratory Tests Test 01/23/17 11:51 01/23/17 17:02 01/23/17 21:00 01/24/17 06:00 Glucose (Fingerstick) 134 mg/dL (70-99) 125 mg/dL (70-99) 122 mg/dL (70-99) White Blood Count 8.8 x10^3/uL (4.0-11.0) Red Blood Count 2.68 x10^6/uL (4.30-5.70) Hemoglobin 8.7 g/dL (13.0-17.5) Hematocrit 26.3 % (39.0-53.0) Mean Corpuscular Volume 98 fL (79-100) Mean Corpuscular Hemoglobin 32 pg (25-35) Mean Corpuscular Hemoglobin Concent 33 g/dL (31-37) Red Cell Distribution Width 18.3 % (11.5-14.5) Platelet Count 168 x10^3/uL (140-400) Neutrophils (%) (Auto) 81 % (31-73) Lymphocytes (%) (Auto) 7 % (24-48) Monocytes (%) (Auto) 12 % (0-9) Eosinophils (%) (Auto) 0 % (0-3) Basophils (%) (Auto) 0 % (0-3) Neutrophils # (Auto) 7.1 x10^3uL (1.8-7.7) Lymphocytes # (Auto) 0.6 x10^3/uL (1.0-4.8) Monocytes # (Auto) 1.1 x10^3/uL (0.0-1.1) Eosinophils # (Auto) 0.0 x10^3/uL (0.0-0.7) Basophils # (Auto) 0.0 x10^3/uL (0.0-0.2) Sodium Level 137 mmol/L (136-145) Potassium Level 4.4 mmol/L (3.5-5.1) Chloride Level 100 mmol/L (98-107) Carbon Dioxide Level 30 mmol/L (21-32) Anion Gap 7 (6-14) Blood Urea Nitrogen 32 mg/dL (8-26) Creatinine 1.3 mg/dL (0.7-1.3) Estimated GFR (Cockcroft-Gault) 54.4 Glucose Level 133 mg/dL (70-99) Calcium Level 8.6 mg/dL (8.5-10.1) Test 01/24/17 07:20 01/24/17 16:35 01/24/17 19:30 01/24/17 22:50 Glucose (Fingerstick) 134 mg/dL (70-99) 140 mg/dL (70-99) White Blood Count 6.3 x10^3/uL (4.0-11.0) 14.7 x10^3/uL (4.0-11.0) Hemoglobin 8.5 g/dL (13.0-17.5) 8.9 g/dL (13.0-17.5) Hematocrit 25.3 % (39.0-53.0) 26.6 % (39.0-53.0) Platelet Count 146 x10^3/uL (140-400) 177 x10^3/uL (140-400) Prothrombin Time 15.3 SEC (11.7-14.0) 15.0 SEC (11.7-14.0) Prothromb Time International Ratio 1.3 (0.8-1.1) 1.3 (0.8-1.1) Activated Partial Thromboplast Time 35 SEC (24-38) 33 SEC (24-38) Fibrinogen 281 mg/dL (200-440) Red Blood Count 2.86 x10^6/uL (4.30-5.70) Mean Corpuscular Volume 93 fL (79-100) Mean Corpuscular Hemoglobin 31 pg (25-35) Mean Corpuscular Hemoglobin Concent 34 g/dL (31-37) Red Cell Distribution Width 17.2 % (11.5-14.5) Test 01/25/17 05:40 01/25/17 08:20 White Blood Count 16.3 x10^3/uL (4.0-11.0) Red Blood Count 2.53 x10^6/uL (4.30-5.70) Hemoglobin 7.9 g/dL (13.0-17.5) Hematocrit 23.4 % (39.0-53.0) Mean Corpuscular Volume 92 fL (79-100) Mean Corpuscular Hemoglobin 31 pg (25-35) Mean Corpuscular Hemoglobin Concent 34 g/dL (31-37) Red Cell Distribution Width 17.6 % (11.5-14.5) Platelet Count 156 x10^3/uL (140-400) Neutrophils (%) (Auto) 79 % (31-73) Lymphocytes (%) (Auto) 4 % (24-48) Monocytes (%) (Auto) 16 % (0-9) Eosinophils (%) (Auto) 0 % (0-3) Basophils (%) (Auto) 0 % (0-3) Neutrophils # (Auto) 12.9 x10^3uL (1.8-7.7) Lymphocytes # (Auto) 0.7 x10^3/uL (1.0-4.8) Monocytes # (Auto) 2.6 x10^3/uL (0.0-1.1) Eosinophils # (Auto) 0.0 x10^3/uL (0.0-0.7) Basophils # (Auto) 0.1 x10^3/uL (0.0-0.2) Sodium Level 139 mmol/L (136-145) Potassium Level 4.4 mmol/L (3.5-5.1) Chloride Level 103 mmol/L (98-107) Carbon Dioxide Level 27 mmol/L (21-32) Anion Gap 9 (6-14) Blood Urea Nitrogen 38 mg/dL (8-26) Creatinine 1.4 mg/dL (0.7-1.3) Estimated GFR (Cockcroft-Gault) 50.0 Glucose Level 150 mg/dL (70-99) Calcium Level 7.9 mg/dL (8.5-10.1) Glucose (Fingerstick) 130 mg/dL (70-99) Laboratory Tests Test 01/24/17 16:35 01/24/17 19:30 01/24/17 22:50 01/25/17 05:40 White Blood Count 6.3 x10^3/uL (4.0-11.0) 14.7 x10^3/uL (4.0-11.0) 16.3 x10^3/uL (4.0-11.0) Hemoglobin 8.5 g/dL (13.0-17.5) 8.9 g/dL (13.0-17.5) 7.9 g/dL (13.0-17.5) Hematocrit 25.3 % (39.0-53.0) 26.6 % (39.0-53.0) 23.4 % (39.0-53.0) Platelet Count 146 x10^3/uL (140-400) 177 x10^3/uL (140-400) 156 x10^3/uL (140-400) Prothrombin Time 15.3 SEC (11.7-14.0) 15.0 SEC (11.7-14.0) Prothromb Time International Ratio 1.3 (0.8-1.1) 1.3 (0.8-1.1) Activated Partial Thromboplast Time 35 SEC (24-38) 33 SEC (24-38) Fibrinogen 281 mg/dL (200-440) Red Blood Count 2.86 x10^6/uL (4.30-5.70) 2.53 x10^6/uL (4.30-5.70) Mean Corpuscular Volume 93 fL (79-100) 92 fL (79-100) Mean Corpuscular Hemoglobin 31 pg (25-35) 31 pg (25-35) Mean Corpuscular Hemoglobin Concent 34 g/dL (31-37) 34 g/dL (31-37) Red Cell Distribution Width 17.2 % (11.5-14.5) 17.6 % (11.5-14.5) Glucose (Fingerstick) 140 mg/dL (70-99) Neutrophils (%) (Auto) 79 % (31-73) Lymphocytes (%) (Auto) 4 % (24-48) Monocytes (%) (Auto) 16 % (0-9) Eosinophils (%) (Auto) 0 % (0-3) Basophils (%) (Auto) 0 % (0-3) Neutrophils # (Auto) 12.9 x10^3uL (1.8-7.7) Lymphocytes # (Auto) 0.7 x10^3/uL (1.0-4.8) Monocytes # (Auto) 2.6 x10^3/uL (0.0-1.1) Eosinophils # (Auto) 0.0 x10^3/uL (0.0-0.7) Basophils # (Auto) 0.1 x10^3/uL (0.0-0.2) Sodium Level 139 mmol/L (136-145) Potassium Level 4.4 mmol/L (3.5-5.1) Chloride Level 103 mmol/L (98-107) Carbon Dioxide Level 27 mmol/L (21-32) Anion Gap 9 (6-14) Blood Urea Nitrogen 38 mg/dL (8-26) Creatinine 1.4 mg/dL (0.7-1.3) Estimated GFR (Cockcroft-Gault) 50.0 Glucose Level 150 mg/dL (70-99) Calcium Level 7.9 mg/dL (8.5-10.1) Test 01/25/17 08:20 Glucose (Fingerstick) 130 mg/dL (70-99) Microbiology 01/15/17 Blood Culture - Final, Complete NO GROWTH AFTER 5 DAYS Medications Current Medications Fentanyl Citrate (Fentanyl 2ml Vial) 50 mcg 1X ONCE IV Last administered on 21:52; Start 01/15/17 at 22:00; Stop 01/15/17 at 22:01; Status DC Sodium Chloride 1,000 ml @ 150 mls/hr 1X ONCE IV Last administered on 22:31; Start 01/15/17 at 22:00; Stop 01/16/17 at 04:39; Status DC Piperacillin Sod/ Tazobactam Sod 3.375 gm/Dextrose 50 ml @ 100 mls/hr 1X ONCE IV Last administered on 01/15/17 23:22; Start 01/15/17 at 23:30; Stop 01/15 at 23:59; Status DC Heparin Sodium (Porcine) (Heparin Sodium) 9,450 unit 1X ONCE IV Last administered on 01/15/17 23:30; Start 01/15/17 at 23:30; Stop 01/16/17 at 16 :41; Status DC Heparin Sodium/ Dextrose 500 ml @ 0 mls/hr CONT PRN IV SEE I/O RECORD Last administered on 01/16/17 16:26; Start 01/15/17 at 23:15; Stop 01/16/17 at 16 :41; Status DC Heparin Sodium (Porcine) (Heparin Sodium) 3,550 unit PRN Q6HRS PRN IV FOR UFH LEVEL LESS THAN 0.2; Start 01/15/17 at 23:15; Stop 01/16/17 at 16:41; Status DC Heparin Sodium (Porcine) (Heparin Sodium) 1,750 unit PRN Q6HRS PRN IV FOR UFH LEVEL 0.2 - 0.29; Start 01/15/17 at 23:15; Stop 01/16/17 at 16:41; Status DC Warfarin Sodium (Coumadin Per Pharmacy) 1 each PRN DAILY PRN MC PER PROTOCOL Last administered on 01/16/17 10:20; Start 01/15/17 at 23:15; Stop 01/16/17 at 16:39; Status DC Info (Anti-Coagulation Monitoring By Pharmacy) 1 each PRN DAILY PRN MC SEE COMMENTS Last administered on 01/16/17 10:17; Start 01/15/17 at 23:30; Stop 01/18/17 at 14:31; Status DC Ondansetron HCl (Zofran) 4 mg PRN Q8HRS PRN IV NAUSEA/VOMITING; Start at 23:15; Stop 01/16/17 at 23:14; Status DC Fentanyl Citrate (Fentanyl 2ml Vial) 50 mcg PRN Q2HR PRN IV SEVERE PAIN Last administered on 01/16/17 01:33; Start 01/15/17 at 23:15; Stop 01/16/17 at 02 :47; Status DC Piperacillin Sod/ Tazobactam Sod (Zosyn Per Pharmacy) 1 each PRN DAILY PRN MC SEE COMMENTS; Start 01/15/17 at 23:15; Stop 01/16/17 at 02:54; Status DC Sodium Chloride 1,000 ml @ 150 mls/hr 1X ONCE IV Last administered on 01:34; Start 01/15/17 at 23:45; Stop 01/16/17 at 06:24; Status DC Albuterol Sulfate (Ventolin Neb Soln) 2.5 mg PRN Q3HRS PRN NEB WHEEZING Last administered on 01/16/17 11:24; Start 01/15/17 at 23:30 Morphine Sulfate 2 mg 1X ONCE IV Last administered on 01/15/17 23:47; Start 01/16/17 at 00:00; Stop 01/16/17 at 00:01; Status DC Fentanyl Citrate (Fentanyl 2ml Vial) 75 mcg PRN Q2HR PRN IV SEVERE PAIN Last administered on 01/16/17 13:56; Start 01/16/17 at 02:45; Stop 01/16/17 at 16 :41; Status DC Piperacillin Sod/ Tazobactam Sod (Zosyn Per Pharmacy) 1 each PRN DAILY PRN MC SEE COMMENTS; Start 01/16/17 at 02:45; Stop 01/17/17 at 16:01; Status DC Piperacillin Sod/ Tazobactam Sod (Zosyn) 2.25 gm Q6HRS IVP Last administered on 01/17/17 12:01; Start 01/16/17 at 06:00; Stop 01/17/17 at 16:01; Status DC Info (Anti-Coagulation Monitoring By Pharmacy) 1 each PRN DAILY PRN MC SEE COMMENTS; Start 01/16/17 at 09:45; Status Cancel Warfarin Sodium (Coumadin) 5 mg 1X WARF ONCE PO ; Start 01/16/17 at 16:00; Stop 01/16/17 at 16:39; Status DC Lactobacillus Rhamnosus (Culturelle) 1 cap BID PO Last administered on 08:12; Start 01/16/17 at 21:00 Magnesium Sulfate/ Dextrose 50 ml @ 25 mls/hr 1X ONCE IV Last administered on 01/16/17 12:45; Start 01/16/17 at 11:30; Stop 01/16/17 at 13:29; Status DC Linezolid 300 ml @ 300 mls/hr Q12HR IV Last administered on 01/16/17 20:58; Start 01/16/17 at 12:00; Stop 01/17/17 at 08:14; Status DC Iohexol (Omnipaque 240 Mg/ml) 30 ml 1X ONCE PO ; Start 01/16/17 at 12:00; Stop 01/16/17 at 12:01; Status DC Info (Do NOT chart on this entry -- for MONITORING) 1 each PRN DAILY PRN MC SEE COMMENTS; Start 01/16/17 at 12:00; Stop 01/18/17 at 11:59; Status DC Magnesium Sulfate/ Dextrose 50 ml @ 25 mls/hr PRN DAILY PRN IV for Mag < 1.7 on am labs; Start 01/16/17 at 13:15 Metoprolol Succinate (Toprol Xl) 50 mg BID PO Last administered on 01/21/17 08 :11; Start 01/16/17 at 21:00; Stop 01/21/17 at 08:33; Status DC Sodium Chloride 1,000 ml @ 100 mls/hr Q10H IV Last administered on 01/18/17 05:45; Start 01/16/17 at 13:45; Stop 01/18/17 at 11:44; Status DC Aspirin (Charmaine Aspirin) 325 mg DAILYWBKFT PO Last administered on 01/19/17 08: 35; Start 01/17/17 at 08:00; Stop 01/19/17 at 09:49; Status DC Atorvastatin Calcium (Lipitor) 40 mg QHS PO Last administered on 01/24/17 21: 22; Start 01/16/17 at 21:00 Vitamin D (Vitamin D3) 2,000 unit DAILY PO Last administered on 01/25/17 08:13 ; Start 01/17/17 at 09:00 Clonidine HCl (Catapres) 0.1 mg BID PO Last administered on 01/19/17 08:35; Start 01/16/17 at 21:00; Stop 01/19/17 at 09:52; Status DC Folic Acid (Folic Acid) 1 mg DAILY PO Last administered on 01/25/17 08:14; Start 01/17/17 at 09:00 Loperamide HCl (Imodium) 2 mg Q2H PRN PO diarrhea; Start 01/16/17 at 16:45 Metoprolol Succinate (Toprol Xl) 100 mg BID PO ; Start 01/16/17 at 21:00; Status UNV Gabapentin (Neurontin) 600 mg TID PO Last administered on 01/25/17 08:14; Start 01/16/17 at 21:00 Pantoprazole Sodium (Protonix) 40 mg DAILYAC PO Last administered on 01/25/17 08:12; Start 01/17/17 at 07:30 Insulin Aspart (NovoLOG) 0-9 UNITS TIDWMEALS SQ Last administered on 01/22/17 17:00; Start 01/16/17 at 17:00 Dextrose (Dextrose 50%-Water Syringe) 12.5 gm PRN Q15MIN PRN IV SEE COMMENTS; Start 01/16/17 at 16:45 Dexamethasone Sodium Phosphate (Decadron) 10 mg 1X ONCE IV Last administered on 01/16/17 17:05; Start 01/16/17 at 16:45; Stop 01/16/17 at 16:46; Status DC Dexamethasone Sodium Phosphate (Decadron) 4 mg Q6HRS IV Last administered on 05:58; Start 01/17/17 at 00:00; Stop 01/18/17 at 15:31; Status DC Morphine Sulfate 2 mg PRN Q2HR PRN IV PAIN Last administered on 01/24/17 19:52 ; Start 01/16/17 at 16:45; Stop 01/24/17 at 22:39; Status DC Oxycodone/ Acetaminophen (Percocet 10/325) 1 tab PRN Q4HRS PRN PO pain Last administered on 01/25/17 03:39; Start 01/16/17 at 16:45 Heparin Sodium (Porcine) (Heparin Sq) 5,000 unit Q8HRS SQ Last administered on 01/23/17 06:00; Start 01/16/17 at 22:00; Stop 01/23/17 at 13:16; Status DC Diazepam (Valium) 5 mg PRN Q6HRS PRN IV SEIZURES; Start 01/16/17 at 18:30; Status Cancel Diazepam (Valium) 5 mg PRN Q6HRS PRN PO TREMORS Last administered on 01/24/17 21:22; Start 01/16/17 at 18:45 Fentanyl Citrate (Fentanyl 2ml Vial) 100 mcg STK-MED ONCE .ROUTE ; Start at 10:08; Stop 01/17/17 at 10:09; Status DC Midazolam HCl (Versed) 2 mg STK-MED ONCE .ROUTE ; Start 01/17/17 at 10:08; Stop 01/17/17 at 10:09; Status DC Lidocaine/Sodium Bicarbonate (Buffered Lidocaine 1%) 20 ml 1X ONCE IJ Last administered on 01/17/17 10:51; Start 01/17/17 at 10:15; Stop 01/17/17 at 10:16 ; Status DC Midazolam HCl (Versed) 2 mg 1X ONCE IV Last administered on 01/17/17 10:52; Start 01/17/17 at 10:15; Stop 01/17/17 at 10:16; Status DC Fentanyl Citrate (Fentanyl 2ml Vial) 100 mcg 1X ONCE IV Last administered on 01/17/17 10:52; Start 01/17/17 at 10:15; Stop 01/17/17 at 10:16; Status DC Lidocaine/Sodium Bicarbonate (Buffered Lidocaine 1%) 20 ml STK-MED ONCE IJ ; Start 01/17/17 at 10:14; Stop 01/17/17 at 10:15; Status DC Piperacillin Sod/ Tazobactam Sod (Zosyn) 3.375 gm Q6HRS IVP Last administered on 01/18/17 06:00; Start 01/17/17 at 18:00; Stop 01/18/17 at 10:42; Status DC Dexamethasone Sodium Phosphate (Decadron) 4 mg Q12HR IV Last administered on 21:22; Start 01/18/17 at 21:00 Aspirin (Ecotrin) 81 mg DAILYWBKFT PO Last administered on 01/25/17 08:12; Start 01/20/17 at 08:00 Amlodipine Besylate (Norvasc) 10 mg DAILY PO Last administered on 01/24/17 09: 35; Start 01/19/17 at 10:00 Oxycodone HCl (OxyCONTIN) 30 mg Q12HR PO Last administered on 01/25/17 08:13; Start 01/19/17 at 11:45 Senna/Docusate Sodium (Senna Plus) 2 tab DAILY PO Last administered on 08:13; Start 01/19/17 at 12:00 Gadobutrol (Gadavist) 10 mmol 1X ONCE IV ; Start 01/19/17 at 15:45; Stop at 15:46; Status DC Sodium Chloride 1,000 ml @ 75 mls/hr [id number] IV Last administered on 02:12; Start 01/20/17 at 11:15; Stop 01/21/17 at 18:06; Status DC Polyethylene Glycol (miraLAX PACKET) 17 gm DAILY PO Last administered on 08:14; Start 01/20/17 at 15:00 Metoprolol Succinate (Toprol Xl) 50 mg DAILY PO Last administered on 01/24/17 09:35; Start 01/21/17 at 09:00 Bacitracin 73366 unit/Sodium Chloride 1,000 ml @ 1,000 mls/hr 1X PERIOP ONCE IRR Last administered on 01/24/17 12:59; Start 01/24/17 at 06:00; Stop at 06:59; Status DC Ondansetron HCl (Zofran) 4 mg PRN Q6HRS PRN IV NAUSEA/VOMITING; Start 01/24/17 at 07:00; Stop 01/25/17 at 06:59; Status DC Fentanyl Citrate (Fentanyl 2ml Vial) 25 mcg PRN Q5MIN PRN IV MILD PAIN; Start 01/24/17 at 07:00; Stop 01/24/17 at 22:48; Status DC Fentanyl Citrate (Fentanyl 2ml Vial) 50 mcg PRN Q5MIN PRN IV MODERATE PAIN Last administered on 01/24/17 19:01; Start 01/24/17 at 07:00; Stop 01/24/17 at 22:48; Status DC Morphine Sulfate 1 mg PRN Q10MIN PRN IV SEVERE PAIN; Start 01/24/17 at 07:00; Stop 01/24/17 at 22:48; Status DC Ringer's Solution 1,000 ml @ 30 mls/hr Q24H IV Last administered on 01/24/17 11:40; Start 01/24/17 at 07:00; Stop 01/24/17 at 18:59; Status DC Lidocaine HCl (Xylocaine-Mpf 1% Vial) 2 ml PRN 1X PRN ID IV START; Start at 07:00; Stop 01/25/17 at 06:59; Status DC Hydromorphone HCl (Dilaudid) 0.5 mg PRN Q10MIN PRN IV SEV PAIN, Second choice; Start 01/24/17 at 07:00; Stop 01/24/17 at 22:48; Status DC Prochlorperazine Edisylate (Compazine) 5 mg PACU PRN PRN IV NAUSEA, MRX1; Start 01/24/17 at 07:00; Stop 01/24/17 at 22:48; Status DC Cefazolin Sodium/ Dextrose 50 ml @ 100 mls/hr 1X PREOP PRN IV PRE-OP Last administered on 01/24/17 12:25; Start 01/23/17 at 13:15; Stop 01/24/17 at 18:00 ; Status DC Gelatin (Gelfoam Size 100) 1 each STK-MED ONCE .ROUTE Last administered on 12:59; Start 01/24/17 at 07:30; Stop 01/24/17 at 07:31; Status DC Bupivacaine HCl/ Epinephrine Bitart (Sensorcain-Mpf Epi 0.5%-1:[id number]) 30 ml STK -MED ONCE .ROUTE Last administered on 01/24/17 12:59; Start 01/24/17 at 07:31 ; Stop 01/24/17 at 07:32; Status DC Ketorolac Tromethamine (Toradol For Or Only) 60 mg STK-MED ONCE .ROUTE Last administered on 01/24/17 12:59; Start 01/24/17 at 07:31; Stop 01/24/17 at 07:32 ; Status DC Thrombin 20,000 unit STK-MED ONCE TP Last administered on 01/24/17 12:59; Start 01/24/17 at 07:31; Stop 01/24/17 at 07:32; Status DC Midazolam HCl (Versed) 2 mg STK-MED ONCE .ROUTE ; Start 01/24/17 at 11:05; Stop 01/24/17 at 11:06; Status DC Fentanyl Citrate (Fentanyl 5ml Vial) 250 mcg STK-MED ONCE .ROUTE ; Start at 11:05; Stop 01/24/17 at 11:06; Status DC Rocuronium Creola (Zemuron) 50 mg STK-MED ONCE .ROUTE ; Start 01/24/17 at 11:05 ; Stop 01/24/17 at 11:06; Status DC Remifentanil HCl (Ultiva) 2 mg STK-MED ONCE IV ; Start 01/24/17 at 11:05; Stop 01/24/17 at 11:06; Status DC Propofol 50 ml @ As Directed STK-MED ONCE IV ; Start 01/24/17 at 11:09; Stop at 11:10; Status DC Multi-Ingred Cream/Lotion/Oil/ Oint (Artificial Tears Eye Oint) 7 jose a STK-MED ONCE .ROUTE ; Start 01/24/17 at 11:09; Stop 01/24/17 at 11:10; Status DC Propofol 0 ml @ As Directed STK-MED ONCE IV ; Start 01/24/17 at 11:10; Stop 01/24/17 at 11:11; Status DC Lidocaine HCl (Lidocaine Pf 2% Vial) 5 ml STK-MED ONCE .ROUTE ; Start 01/24/17 at 11:10; Stop 01/24/17 at 11:11; Status DC Dexamethasone Sodium Phosphate (Decadron) 20 mg STK-MED ONCE .ROUTE ; Start 01/24/17 at 11:10; Stop 01/24/17 at 11:11; Status DC Ondansetron HCl (Zofran) 4 mg STK-MED ONCE .ROUTE ; Start 01/24/17 at 11:10; Stop 01/24/17 at 11:11; Status DC Desflurane (Suprane) 90 ml STK-MED ONCE IH ; Start 01/24/17 at 11:10; Stop 01/24 at 11:11; Status DC Sodium Chloride (Sodium Chloride) 50 ml STK-MED ONCE IJ ; Start 01/24/17 at 11: 11; Stop 01/24/17 at 11:12; Status DC Phenylephrine HCl 1 mg STK-MED ONCE IV ; Start 01/24/17 at 12:02; Stop 01/24/17 at 12:03; Status DC Glycopyrrolate (Robinul) 1 mg STK-MED ONCE .ROUTE ; Start 01/24/17 at 12:28; Stop 01/24/17 at 12:29; Status DC Neostigmine Methylsulfate 5 mg STK-MED ONCE .ROUTE ; Start 01/24/17 at 12:28; Stop 01/24/17 at 12:29; Status DC Ephedrine Sulfate (Akovaz) 50 mg STK-MED ONCE .ROUTE ; Start 01/24/17 at 14:05; Stop 01/24/17 at 14:06; Status DC Albumin Human 500 ml @ As Directed STK-MED ONCE IV ; Start 01/24/17 at 14:07; Stop 01/24/17 at 14:08; Status DC Remifentanil HCl (Ultiva) 2 mg STK-MED ONCE IV ; Start 01/24/17 at 14:55; Stop 01/24/17 at 14:56; Status DC Propofol 50 ml @ As Directed STK-MED ONCE IV ; Start 01/24/17 at 14:57; Stop at 14:58; Status DC Propofol 20 ml @ As Directed STK-MED ONCE IV ; Start 01/24/17 at 14:57; Stop at 14:58; Status DC Propofol 20 ml @ As Directed STK-MED ONCE IV ; Start 01/24/17 at 15:09; Stop at 15:10; Status DC Propofol 50 ml @ As Directed STK-MED ONCE IV ; Start 01/24/17 at 15:50; Stop at 15:51; Status DC Cefazolin Sodium/ Dextrose 50 ml @ As Directed STK-MED ONCE IV ; Start 01/24/17 at 16:20; Stop 01/24/17 at 16:21; Status DC Phenylephrine HCl 1 mg STK-MED ONCE IV ; Start 01/24/17 at 16:54; Stop 01/24/17 at 16:55; Status DC Propofol 50 ml @ As Directed STK-MED ONCE IV ; Start 01/24/17 at 17:10; Stop at 17:11; Status DC Remifentanil HCl (Ultiva) 2 mg STK-MED ONCE IV ; Start 01/24/17 at 17:10; Stop 01/24/17 at 17:11; Status DC Propofol 50 ml @ As Directed STK-MED ONCE IV ; Start 01/24/17 at 17:30; Stop at 17:31; Status DC Hydromorphone HCl (Dilaudid) 2 mg STK-MED ONCE .ROUTE ; Start 01/24/17 at 18:07 ; Stop 01/24/17 at 18:08; Status DC Fentanyl Citrate (Fentanyl 2ml Vial) 100 mcg STK-MED ONCE .ROUTE ; Start at 18:07; Stop 01/24/17 at 18:08; Status DC Morphine Sulfate 2 mg PRN Q2HR PRN IV SEVERE PAIN Last administered on t 03:38; Start 01/24/17 at 22:45 Active Scripts Active Reported Imodium A-D (Loperamide HCl) 2 Mg Capsule 2 Mg PO Aspirin 325 Mg Tablet 1 Tab PO DAILY Vitamin D3 (Cholecalciferol (Vitamin D3)) 1,000 Unit Tablet 2,000 Unit PO Vicodin Es 7.5-300 Mg Tablet (Hydrocodone Bit/Acetaminophen) 1 Each Tablet 1 Each PO Q6H PRN Humira (Adalimumab) 40 Mg/0.8 Ml Pen.ij.kit 1 Syr SQ Q2WKS Folbic Rf Tablet (B12/Levomefolate Calcium/B-6) 1 Each Tablet 1 Each PO Omeprazole 40 Mg Capsule.dr 1 Cap PO DAILY Cholestyramine Packet (Cholestyramine (With Sugar)) 4 Gm Powd.pack 4 Gm PO Gabapentin 600 Mg Tablet 600 Mg PO TID Folic Acid 1 Mg Tablet 1 Tab PO DAILY Clonidine Hcl 0.1 Mg Tablet 0.1 Mg PO BID Metformin Hcl 1,000 Mg Tablet 1,000 Mg PO BIDWMEALS Atorvastatin Calcium 40 Mg Tablet 1 Tab PO DAILY Metoprolol Succinate ( Xl ) (Metoprolol Succinate) 100 Mg Tab.er.24h 100 Mg PO BID Vitals/I & O Vital Sign - Last 24 Hours 01/24/17 01/24/17 01/24/17 01/24/17 11:22 18:39 18:45 18:51 Temp 97.8 97.7 97.7 97.8 97.7 97.7 Pulse 64 66 72 Resp 20 18 16 B/P (MAP) 164/68 136/66 136/66 (89) Pulse Ox 96 100 100 100 O2 Delivery Nasal Cannula Simple Mask Simple Mask Simple Mask O2 Flow Rate 10 10.0 10.0 01/24/17 01/24/17 01/24/17 01/24/17 18:54 19:00 19:01 19:09 Temp 98.8 98.8 Pulse 73 68 68 Resp 18 15 18 16 B/P (MAP) 124/69 124/69 (87) 148/61 Pulse Ox 100 100 100 100 O2 Delivery Simple Mask Simple Mask Simple Mask Room Air O2 Flow Rate 10 10.0 10.0 01/24/17 01/24/17 01/24/17 01/24/17 19:15 19:21 19:30 19:30 Pulse 70 78 Resp 16 15 16 B/P (MAP) 148/61 (90) 153/68 (96) Pulse Ox 94 94 94 O2 Delivery Room Air Room Air Mask Room Air O2 Flow Rate 10.0 01/24/17 01/24/17 01/24/17 01/24/17 19:52 20:00 20:10 20:22 Pulse 85 Resp 20 21 20 18 B/P (MAP) 117/65 (82) Pulse Ox 99 96 98 97 O2 Delivery Room Air Room Air Room Air Room Air 01/24/17 01/24/17 01/24/17 01/24/17 21:00 21:23 22:00 22:54 Pulse 101 93 Resp 14 15 16 16 B/P (MAP) 140/68 (92) 138/64 (88) Pulse Ox 95 96 94 96 O2 Delivery BiPAP/CPAP BiPAP/CPAP BiPAP/CPAP BiPAP/CPAP 01/24/17 01/25/17 01/25/17 01/25/17 23:00 00:00 00:00 00:00 Temp 98.5 98.5 Pulse 88 86 Resp 10 16 B/P (MAP) 139/72 (94) 150/71 (97) Pulse Ox 93 99 O2 Delivery Room Air Room Air Room Air 01/25/17 01/25/17 01/25/17 01/25/17 01:00 01:23 01:25 02:00 Pulse 77 72 Resp 11 16 16 9 B/P (MAP) 138/57 (84) 109/60 (76) Pulse Ox 99 100 100 100 O2 Delivery Nasal Cannula Nasal Cannula Nasal Cannula Nasal Cannula O2 Flow Rate 2.0 2.0 2.0 2.0 01/25/17 01/25/17 01/25/17 01/25/17 03:00 03:38 03:39 04:00 Temp 98.6 98.6 Pulse 74 71 Resp 8 27 27 8 B/P (MAP) 97/55 (69) 110/57 (74) Pulse Ox 100 100 100 100 O2 Delivery Nasal Cannula Nasal Cannula Nasal Cannula Nasal Cannula O2 Flow Rate 2.0 2.0 2.0 2.0 01/25/17 01/25/17 01/25/17 01/25/17 04:00 04:08 04:39 05:00 Pulse 93 Resp 16 16 30 B/P (MAP) 105/59 (74) Pulse Ox 100 96 100 O2 Delivery Nasal Cannula Nasal Cannula Nasal Cannula Nasal Cannula O2 Flow Rate 2.0 2.0 2.0 2.0 01/25/17 01/25/17 01/25/17 01/25/17 06:00 07:00 08:00 08:00 Temp 98.6 98.6 98.6 98.6 Pulse 81 81 81 Resp 8 B/P (MAP) 99/67 (78) 107/55 (72) 107/55 (72) Pulse Ox 98 99 99 O2 Delivery Nasal Cannula Nasal Cannula Nasal Cannula Nasal Cannula O2 Flow Rate 2.0 3.0 1.0 2.0 01/25/17 01/25/17 01/25/17 08:13 08:32 09:55 Temp 97.7 97.9 97.7 97.9 Pulse 89 92 Resp 14 16 B/P (MAP) 119/61 (80) 113/64 (80) Pulse Ox 98 98 99 O2 Delivery Nasal Cannula Nasal Cannula O2 Flow Rate 2.0 2.0 1.0 Intake and Output 01/25/17 01/25/17 01/26/17 15:00 23:00 07:00 Intake Total 240 ml Output Total 150 ml Balance 90 ml PINEDA FIELDS MD Jan 25, 2017 10:36
[2017-01-25] MEDS: DEXAMETHASONE SOD PHOS 4 MG/ML VIAL IV SCH ×2 (12:16→20:52)
--- NOTE | 2017-01-25 12:29 | PDOC ---
PROGRESS NOTES Chief Complaint Chief Complaint L3 spinal mass: highly suspicious for malignancy or L3 Chance fracture?. Back pain Syncope Renal mass vs complex cyst ANDREINA on CKD DM2 Anemia Dyspnea PAF CAD: hx mult stents Crohn's Alcoholism Azotemia History of Present Illness History of Present Illness Pt seen at bedside in ICU with family present. He is AOCx3 although a little groggy secondary to pain medication administration. He is s/p L1-L5 vertebral fusion and hematoma evacuation, which he underwent yesterday. Initial worry for malignant lesion of vertebra appears to be negative based on intraoperative findings. Pt has no c/o ongoing pain during our conversation. Per hillary RN, pt pulled his picc line out this morning. Pt is being followed by Nepho re: renal insufficiency, ID re: positive lactic acid, Cardio re: CHF, Heme and Onc re: spinal cancer, Radiation Onc re: Spinal cancer, Neurosurg re: L3 malignant lesion. For now, continue to monitor in ICU. Vitals Vitals Vital Signs Date Time Temp Pulse Resp B/P (MAP) Pulse Ox O2 Delivery O2 Flow Rate FiO2 01/25/17 12:16 98 Room Air 1.0 01/25/17 12:04 98.9 77 20 121/70 (87) 98.9 Physical Exam General: Alert, Oriented X3, Cooperative, No acute distress Heart: Normal S1, Normal S2 Lungs: Clear Abdomen: Normal bowel sounds, Soft, No tenderness Extremities: No clubbing, No edema Skin: Other (Dressing dry, flat and intact, drain in place) Labs LABS Laboratory Tests Test 01/24/17 16:35 01/24/17 19:30 01/24/17 22:50 01/25/17 05:40 White Blood Count 6.3 x10^3/uL (4.0-11.0) 14.7 x10^3/uL (4.0-11.0) 16.3 x10^3/uL (4.0-11.0) Hemoglobin 8.5 g/dL (13.0-17.5) 8.9 g/dL (13.0-17.5) 7.9 g/dL (13.0-17.5) Hematocrit 25.3 % (39.0-53.0) 26.6 % (39.0-53.0) 23.4 % (39.0-53.0) Platelet Count 146 x10^3/uL (140-400) 177 x10^3/uL (140-400) 156 x10^3/uL (140-400) Prothrombin Time 15.3 SEC (11.7-14.0) 15.0 SEC (11.7-14.0) Prothromb Time International Ratio 1.3 (0.8-1.1) 1.3 (0.8-1.1) Activated Partial Thromboplast Time 35 SEC (24-38) 33 SEC (24-38) Fibrinogen 281 mg/dL (200-440) Red Blood Count 2.86 x10^6/uL (4.30-5.70) 2.53 x10^6/uL (4.30-5.70) Mean Corpuscular Volume 93 fL (79-100) 92 fL (79-100) Mean Corpuscular Hemoglobin 31 pg (25-35) 31 pg (25-35) Mean Corpuscular Hemoglobin Concent 34 g/dL (31-37) 34 g/dL (31-37) Red Cell Distribution Width 17.2 % (11.5-14.5) 17.6 % (11.5-14.5) Glucose (Fingerstick) 140 mg/dL (70-99) Neutrophils (%) (Auto) 79 % (31-73) Lymphocytes (%) (Auto) 4 % (24-48) Monocytes (%) (Auto) 16 % (0-9) Eosinophils (%) (Auto) 0 % (0-3) Basophils (%) (Auto) 0 % (0-3) Neutrophils # (Auto) 12.9 x10^3uL (1.8-7.7) Lymphocytes # (Auto) 0.7 x10^3/uL (1.0-4.8) Monocytes # (Auto) 2.6 x10^3/uL (0.0-1.1) Eosinophils # (Auto) 0.0 x10^3/uL (0.0-0.7) Basophils # (Auto) 0.1 x10^3/uL (0.0-0.2) Sodium Level 139 mmol/L (136-145) Potassium Level 4.4 mmol/L (3.5-5.1) Chloride Level 103 mmol/L (98-107) Carbon Dioxide Level 27 mmol/L (21-32) Anion Gap 9 (6-14) Blood Urea Nitrogen 38 mg/dL (8-26) Creatinine 1.4 mg/dL (0.7-1.3) Estimated GFR (Cockcroft-Gault) 50.0 Glucose Level 150 mg/dL (70-99) Calcium Level 7.9 mg/dL (8.5-10.1) Test 01/25/17 08:20 01/25/17 11:44 Glucose (Fingerstick) 130 mg/dL (70-99) 120 mg/dL (70-99) Review of Systems Review of Systems AOCx3, in NAD. Lungs clear b/l. HEart RRR no M. 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 Back pain Syncope Renal mass vs complex cyst ANDREINA on CKD DM2 Anemia Dyspnea PAF CAD: hx mult stents Crohn's Alcoholism Azotemia PLAN: Continue ICU monitoring Continue pain mgmt Continue subspecialists consults Recheck labs PT/OT Problems: Comment Review of Relevant I have reviewed the following items bernadine (where applicable) has been applied. Labs Laboratory Tests Test 01/23/17 17:02 01/23/17 21:00 01/24/17 06:00 01/24/17 07:20 Glucose (Fingerstick) 125 mg/dL (70-99) 122 mg/dL (70-99) 134 mg/dL (70-99) White Blood Count 8.8 x10^3/uL (4.0-11.0) Red Blood Count 2.68 x10^6/uL (4.30-5.70) Hemoglobin 8.7 g/dL (13.0-17.5) Hematocrit 26.3 % (39.0-53.0) Mean Corpuscular Volume 98 fL (79-100) Mean Corpuscular Hemoglobin 32 pg (25-35) Mean Corpuscular Hemoglobin Concent 33 g/dL (31-37) Red Cell Distribution Width 18.3 % (11.5-14.5) Platelet Count 168 x10^3/uL (140-400) Neutrophils (%) (Auto) 81 % (31-73) Lymphocytes (%) (Auto) 7 % (24-48) Monocytes (%) (Auto) 12 % (0-9) Eosinophils (%) (Auto) 0 % (0-3) Basophils (%) (Auto) 0 % (0-3) Neutrophils # (Auto) 7.1 x10^3uL (1.8-7.7) Lymphocytes # (Auto) 0.6 x10^3/uL (1.0-4.8) Monocytes # (Auto) 1.1 x10^3/uL (0.0-1.1) Eosinophils # (Auto) 0.0 x10^3/uL (0.0-0.7) Basophils # (Auto) 0.0 x10^3/uL (0.0-0.2) Sodium Level 137 mmol/L (136-145) Potassium Level 4.4 mmol/L (3.5-5.1) Chloride Level 100 mmol/L (98-107) Carbon Dioxide Level 30 mmol/L (21-32) Anion Gap 7 (6-14) Blood Urea Nitrogen 32 mg/dL (8-26) Creatinine 1.3 mg/dL (0.7-1.3) Estimated GFR (Cockcroft-Gault) 54.4 Glucose Level 133 mg/dL (70-99) Calcium Level 8.6 mg/dL (8.5-10.1) Test 01/24/17 16:35 01/24/17 19:30 01/24/17 22:50 01/25/17 05:40 White Blood Count 6.3 x10^3/uL (4.0-11.0) 14.7 x10^3/uL (4.0-11.0) 16.3 x10^3/uL (4.0-11.0) Hemoglobin 8.5 g/dL (13.0-17.5) 8.9 g/dL (13.0-17.5) 7.9 g/dL (13.0-17.5) Hematocrit 25.3 % (39.0-53.0) 26.6 % (39.0-53.0) 23.4 % (39.0-53.0) Platelet Count 146 x10^3/uL (140-400) 177 x10^3/uL (140-400) 156 x10^3/uL (140-400) Prothrombin Time 15.3 SEC (11.7-14.0) 15.0 SEC (11.7-14.0) Prothromb Time International Ratio 1.3 (0.8-1.1) 1.3 (0.8-1.1) Activated Partial Thromboplast Time 35 SEC (24-38) 33 SEC (24-38) Fibrinogen 281 mg/dL (200-440) Red Blood Count 2.86 x10^6/uL (4.30-5.70) 2.53 x10^6/uL (4.30-5.70) Mean Corpuscular Volume 93 fL (79-100) 92 fL (79-100) Mean Corpuscular Hemoglobin 31 pg (25-35) 31 pg (25-35) Mean Corpuscular Hemoglobin Concent 34 g/dL (31-37) 34 g/dL (31-37) Red Cell Distribution Width 17.2 % (11.5-14.5) 17.6 % (11.5-14.5) Glucose (Fingerstick) 140 mg/dL (70-99) Neutrophils (%) (Auto) 79 % (31-73) Lymphocytes (%) (Auto) 4 % (24-48) Monocytes (%) (Auto) 16 % (0-9) Eosinophils (%) (Auto) 0 % (0-3) Basophils (%) (Auto) 0 % (0-3) Neutrophils # (Auto) 12.9 x10^3uL (1.8-7.7) Lymphocytes # (Auto) 0.7 x10^3/uL (1.0-4.8) Monocytes # (Auto) 2.6 x10^3/uL (0.0-1.1) Eosinophils # (Auto) 0.0 x10^3/uL (0.0-0.7) Basophils # (Auto) 0.1 x10^3/uL (0.0-0.2) Sodium Level 139 mmol/L (136-145) Potassium Level 4.4 mmol/L (3.5-5.1) Chloride Level 103 mmol/L (98-107) Carbon Dioxide Level 27 mmol/L (21-32) Anion Gap 9 (6-14) Blood Urea Nitrogen 38 mg/dL (8-26) Creatinine 1.4 mg/dL (0.7-1.3) Estimated GFR (Cockcroft-Gault) 50.0 Glucose Level 150 mg/dL (70-99) Calcium Level 7.9 mg/dL (8.5-10.1) Test 01/25/17 08:20 01/25/17 11:44 Glucose (Fingerstick) 130 mg/dL (70-99) 120 mg/dL (70-99) Laboratory Tests Test 01/24/17 16:35 01/24/17 19:30 01/24/17 22:50 01/25/17 05:40 White Blood Count 6.3 x10^3/uL (4.0-11.0) 14.7 x10^3/uL (4.0-11.0) 16.3 x10^3/uL (4.0-11.0) Hemoglobin 8.5 g/dL (13.0-17.5) 8.9 g/dL (13.0-17.5) 7.9 g/dL (13.0-17.5) Hematocrit 25.3 % (39.0-53.0) 26.6 % (39.0-53.0) 23.4 % (39.0-53.0) Platelet Count 146 x10^3/uL (140-400) 177 x10^3/uL (140-400) 156 x10^3/uL (140-400) Prothrombin Time 15.3 SEC (11.7-14.0) 15.0 SEC (11.7-14.0) Prothromb Time International Ratio 1.3 (0.8-1.1) 1.3 (0.8-1.1) Activated Partial Thromboplast Time 35 SEC (24-38) 33 SEC (24-38) Fibrinogen 281 mg/dL (200-440) Red Blood Count 2.86 x10^6/uL (4.30-5.70) 2.53 x10^6/uL (4.30-5.70) Mean Corpuscular Volume 93 fL (79-100) 92 fL (79-100) Mean Corpuscular Hemoglobin 31 pg (25-35) 31 pg (25-35) Mean Corpuscular Hemoglobin Concent 34 g/dL (31-37) 34 g/dL (31-37) Red Cell Distribution Width 17.2 % (11.5-14.5) 17.6 % (11.5-14.5) Glucose (Fingerstick) 140 mg/dL (70-99) Neutrophils (%) (Auto) 79 % (31-73) Lymphocytes (%) (Auto) 4 % (24-48) Monocytes (%) (Auto) 16 % (0-9) Eosinophils (%) (Auto) 0 % (0-3) Basophils (%) (Auto) 0 % (0-3) Neutrophils # (Auto) 12.9 x10^3uL (1.8-7.7) Lymphocytes # (Auto) 0.7 x10^3/uL (1.0-4.8) Monocytes # (Auto) 2.6 x10^3/uL (0.0-1.1) Eosinophils # (Auto) 0.0 x10^3/uL (0.0-0.7) Basophils # (Auto) 0.1 x10^3/uL (0.0-0.2) Sodium Level 139 mmol/L (136-145) Potassium Level 4.4 mmol/L (3.5-5.1) Chloride Level 103 mmol/L (98-107) Carbon Dioxide Level 27 mmol/L (21-32) Anion Gap 9 (6-14) Blood Urea Nitrogen 38 mg/dL (8-26) Creatinine 1.4 mg/dL (0.7-1.3) Estimated GFR (Cockcroft-Gault) 50.0 Glucose Level 150 mg/dL (70-99) Calcium Level 7.9 mg/dL (8.5-10.1) Test 01/25/17 08:20 01/25/17 11:44 Glucose (Fingerstick) 130 mg/dL (70-99) 120 mg/dL (70-99) Microbiology 01/15/17 Blood Culture - Final, Complete NO GROWTH AFTER 5 DAYS Medications Current Medications Fentanyl Citrate (Fentanyl 2ml Vial) 50 mcg 1X ONCE IV Last administered on t 21:52; Start 01/15/17 at 22:00; Stop 01/15/17 at 22:01; Status DC Sodium Chloride 1,000 ml @ 150 mls/hr 1X ONCE IV Last administered on 22:31; Start 01/15/17 at 22:00; Stop 01/16/17 at 04:39; Status DC Piperacillin Sod/ Tazobactam Sod 3.375 gm/Dextrose 50 ml @ 100 mls/hr 1X ONCE IV Last administered on 01/15/17 23:22; Start 01/15/17 at 23:30; Stop 01/15 at 23:59; Status DC Heparin Sodium (Porcine) (Heparin Sodium) 9,450 unit 1X ONCE IV Last administered on 01/15/17 23:30; Start 01/15/17 at 23:30; Stop 01/16/17 at 16 :41; Status DC Heparin Sodium/ Dextrose 500 ml @ 0 mls/hr CONT PRN IV SEE I/O RECORD Last administered on 01/16/17 16:26; Start 01/15/17 at 23:15; Stop 01/16/17 at 16 :41; Status DC Heparin Sodium (Porcine) (Heparin Sodium) 3,550 unit PRN Q6HRS PRN IV FOR UFH LEVEL LESS THAN 0.2; Start 01/15/17 at 23:15; Stop 01/16/17 at 16:41; Status DC Heparin Sodium (Porcine) (Heparin Sodium) 1,750 unit PRN Q6HRS PRN IV FOR UFH LEVEL 0.2 - 0.29; Start 01/15/17 at 23:15; Stop 01/16/17 at 16:41; Status DC Warfarin Sodium (Coumadin Per Pharmacy) 1 each PRN DAILY PRN MC PER PROTOCOL Last administered on 01/16/17 10:20; Start 01/15/17 at 23:15; Stop 01/16/17 at 16:39; Status DC Info (Anti-Coagulation Monitoring By Pharmacy) 1 each PRN DAILY PRN MC SEE COMMENTS Last administered on 01/16/17 10:17; Start 01/15/17 at 23:30; Stop 01/18/17 at 14:31; Status DC Ondansetron HCl (Zofran) 4 mg PRN Q8HRS PRN IV NAUSEA/VOMITING; Start at 23:15; Stop 01/16/17 at 23:14; Status DC Fentanyl Citrate (Fentanyl 2ml Vial) 50 mcg PRN Q2HR PRN IV SEVERE PAIN Last administered on 01/16/17 01:33; Start 01/15/17 at 23:15; Stop 01/16/17 at 02 :47; Status DC Piperacillin Sod/ Tazobactam Sod (Zosyn Per Pharmacy) 1 each PRN DAILY PRN MC SEE COMMENTS; Start 01/15/17 at 23:15; Stop 01/16/17 at 02:54; Status DC Sodium Chloride 1,000 ml @ 150 mls/hr 1X ONCE IV Last administered on 01:34; Start 01/15/17 at 23:45; Stop 01/16/17 at 06:24; Status DC Albuterol Sulfate (Ventolin Neb Soln) 2.5 mg PRN Q3HRS PRN NEB WHEEZING Last administered on 01/16/17 11:24; Start 01/15/17 at 23:30 Morphine Sulfate 2 mg 1X ONCE IV Last administered on 01/15/17 23:47; Start 01/16/17 at 00:00; Stop 01/16/17 at 00:01; Status DC Fentanyl Citrate (Fentanyl 2ml Vial) 75 mcg PRN Q2HR PRN IV SEVERE PAIN Last administered on 01/16/17 13:56; Start 01/16/17 at 02:45; Stop 01/16/17 at 16 :41; Status DC Piperacillin Sod/ Tazobactam Sod (Zosyn Per Pharmacy) 1 each PRN DAILY PRN MC SEE COMMENTS; Start 01/16/17 at 02:45; Stop 01/17/17 at 16:01; Status DC Piperacillin Sod/ Tazobactam Sod (Zosyn) 2.25 gm Q6HRS IVP Last administered on 01/17/17 12:01; Start 01/16/17 at 06:00; Stop 01/17/17 at 16:01; Status DC Info (Anti-Coagulation Monitoring By Pharmacy) 1 each PRN DAILY PRN MC SEE COMMENTS; Start 01/16/17 at 09:45; Status Cancel Warfarin Sodium (Coumadin) 5 mg 1X WARF ONCE PO ; Start 01/16/17 at 16:00; Stop 01/16/17 at 16:39; Status DC Lactobacillus Rhamnosus (Culturelle) 1 cap BID PO Last administered on 08:12; Start 01/16/17 at 21:00 Magnesium Sulfate/ Dextrose 50 ml @ 25 mls/hr 1X ONCE IV Last administered on 01/16/17 12:45; Start 01/16/17 at 11:30; Stop 01/16/17 at 13:29; Status DC Linezolid 300 ml @ 300 mls/hr Q12HR IV Last administered on 01/16/17 20:58; Start 01/16/17 at 12:00; Stop 01/17/17 at 08:14; Status DC Iohexol (Omnipaque 240 Mg/ml) 30 ml 1X ONCE PO ; Start 01/16/17 at 12:00; Stop 01/16/17 at 12:01; Status DC Info (Do NOT chart on this entry -- for MONITORING) 1 each PRN DAILY PRN MC SEE COMMENTS; Start 01/16/17 at 12:00; Stop 01/18/17 at 11:59; Status DC Magnesium Sulfate/ Dextrose 50 ml @ 25 mls/hr PRN DAILY PRN IV for Mag < 1.7 on am labs; Start 01/16/17 at 13:15 Metoprolol Succinate (Toprol Xl) 50 mg BID PO Last administered on 01/21/17 08 :11; Start 01/16/17 at 21:00; Stop 01/21/17 at 08:33; Status DC Sodium Chloride 1,000 ml @ 100 mls/hr Q10H IV Last administered on 01/18/17 05:45; Start 01/16/17 at 13:45; Stop 01/18/17 at 11:44; Status DC Aspirin (Charmaine Aspirin) 325 mg DAILYWBKFT PO Last administered on 01/19/17 08: 35; Start 01/17/17 at 08:00; Stop 01/19/17 at 09:49; Status DC Atorvastatin Calcium (Lipitor) 40 mg QHS PO Last administered on 01/24/17 21: 22; Start 01/16/17 at 21:00 Vitamin D (Vitamin D3) 2,000 unit DAILY PO Last administered on 01/25/17 08:13 ; Start 01/17/17 at 09:00 Clonidine HCl (Catapres) 0.1 mg BID PO Last administered on 01/19/17 08:35; Start 01/16/17 at 21:00; Stop 01/19/17 at 09:52; Status DC Folic Acid (Folic Acid) 1 mg DAILY PO Last administered on 01/25/17 08:14; Start 01/17/17 at 09:00 Loperamide HCl (Imodium) 2 mg Q2H PRN PO diarrhea; Start 01/16/17 at 16:45 Metoprolol Succinate (Toprol Xl) 100 mg BID PO ; Start 01/16/17 at 21:00; Status UNV Gabapentin (Neurontin) 600 mg TID PO Last administered on 01/25/17 08:14; Start 01/16/17 at 21:00 Pantoprazole Sodium (Protonix) 40 mg DAILYAC PO Last administered on 01/25/17 08:12; Start 01/17/17 at 07:30 Insulin Aspart (NovoLOG) 0-9 UNITS TIDWMEALS SQ Last administered on 01/22/17 17:00; Start 01/16/17 at 17:00 Dextrose (Dextrose 50%-Water Syringe) 12.5 gm PRN Q15MIN PRN IV SEE COMMENTS; Start 01/16/17 at 16:45 Dexamethasone Sodium Phosphate (Decadron) 10 mg 1X ONCE IV Last administered on 01/16/17 17:05; Start 01/16/17 at 16:45; Stop 01/16/17 at 16:46; Status DC Dexamethasone Sodium Phosphate (Decadron) 4 mg Q6HRS IV Last administered on 05:58; Start 01/17/17 at 00:00; Stop 01/18/17 at 15:31; Status DC Morphine Sulfate 2 mg PRN Q2HR PRN IV PAIN Last administered on 01/24/17 19:52 ; Start 01/16/17 at 16:45; Stop 01/24/17 at 22:39; Status DC Oxycodone/ Acetaminophen (Percocet 10/325) 1 tab PRN Q4HRS PRN PO pain Last administered on 01/25/17 03:39; Start 01/16/17 at 16:45 Heparin Sodium (Porcine) (Heparin Sq) 5,000 unit Q8HRS SQ Last administered on 01/23/17 06:00; Start 01/16/17 at 22:00; Stop 01/23/17 at 13:16; Status DC Diazepam (Valium) 5 mg PRN Q6HRS PRN IV SEIZURES; Start 01/16/17 at 18:30; Status Cancel Diazepam (Valium) 5 mg PRN Q6HRS PRN PO TREMORS Last administered on 01/24/17 21:22; Start 01/16/17 at 18:45 Fentanyl Citrate (Fentanyl 2ml Vial) 100 mcg STK-MED ONCE .ROUTE ; Start at 10:08; Stop 01/17/17 at 10:09; Status DC Midazolam HCl (Versed) 2 mg STK-MED ONCE .ROUTE ; Start 01/17/17 at 10:08; Stop 01/17/17 at 10:09; Status DC Lidocaine/Sodium Bicarbonate (Buffered Lidocaine 1%) 20 ml 1X ONCE IJ Last administered on 01/17/17 10:51; Start 01/17/17 at 10:15; Stop 01/17/17 at 10:16 ; Status DC Midazolam HCl (Versed) 2 mg 1X ONCE IV Last administered on 01/17/17 10:52; Start 01/17/17 at 10:15; Stop 01/17/17 at 10:16; Status DC Fentanyl Citrate (Fentanyl 2ml Vial) 100 mcg 1X ONCE IV Last administered on 01/17/17 10:52; Start 01/17/17 at 10:15; Stop 01/17/17 at 10:16; Status DC Lidocaine/Sodium Bicarbonate (Buffered Lidocaine 1%) 20 ml STK-MED ONCE IJ ; Start 01/17/17 at 10:14; Stop 01/17/17 at 10:15; Status DC Piperacillin Sod/ Tazobactam Sod (Zosyn) 3.375 gm Q6HRS IVP Last administered on 01/18/17 06:00; Start 01/17/17 at 18:00; Stop 01/18/17 at 10:42; Status DC Dexamethasone Sodium Phosphate (Decadron) 4 mg Q12HR IV Last administered on 12:16; Start 01/18/17 at 21:00 Aspirin (Ecotrin) 81 mg DAILYWBKFT PO Last administered on 01/25/17 08:12; Start 01/20/17 at 08:00 Amlodipine Besylate (Norvasc) 10 mg DAILY PO Last administered on 01/24/17 09: 35; Start 01/19/17 at 10:00 Oxycodone HCl (OxyCONTIN) 30 mg Q12HR PO Last administered on 01/25/17 08:13; Start 01/19/17 at 11:45 Senna/Docusate Sodium (Senna Plus) 2 tab DAILY PO Last administered on 08:13; Start 01/19/17 at 12:00 Gadobutrol (Gadavist) 10 mmol 1X ONCE IV ; Start 01/19/17 at 15:45; Stop at 15:46; Status DC Sodium Chloride 1,000 ml @ 75 mls/hr [id number] IV Last administered on 02:12; Start 01/20/17 at 11:15; Stop 01/21/17 at 18:06; Status DC Polyethylene Glycol (miraLAX PACKET) 17 gm DAILY PO Last administered on 08:14; Start 01/20/17 at 15:00 Metoprolol Succinate (Toprol Xl) 50 mg DAILY PO Last administered on 01/24/17 09:35; Start 01/21/17 at 09:00 Bacitracin 50889 unit/Sodium Chloride 1,000 ml @ 1,000 mls/hr 1X PERIOP ONCE IRR Last administered on 01/24/17 12:59; Start 01/24/17 at 06:00; Stop at 06:59; Status DC Ondansetron HCl (Zofran) 4 mg PRN Q6HRS PRN IV NAUSEA/VOMITING; Start 01/24/17 at 07:00; Stop 01/25/17 at 06:59; Status DC Fentanyl Citrate (Fentanyl 2ml Vial) 25 mcg PRN Q5MIN PRN IV MILD PAIN; Start 01/24/17 at 07:00; Stop 01/24/17 at 22:48; Status DC Fentanyl Citrate (Fentanyl 2ml Vial) 50 mcg PRN Q5MIN PRN IV MODERATE PAIN Last administered on 01/24/17 19:01; Start 01/24/17 at 07:00; Stop 01/24/17 at 22:48; Status DC Morphine Sulfate 1 mg PRN Q10MIN PRN IV SEVERE PAIN; Start 01/24/17 at 07:00; Stop 01/24/17 at 22:48; Status DC Ringer's Solution 1,000 ml @ 30 mls/hr Q24H IV Last administered on 01/24/17 11:40; Start 01/24/17 at 07:00; Stop 01/24/17 at 18:59; Status DC Lidocaine HCl (Xylocaine-Mpf 1% Vial) 2 ml PRN 1X PRN ID IV START; Start at 07:00; Stop 01/25/17 at 06:59; Status DC Hydromorphone HCl (Dilaudid) 0.5 mg PRN Q10MIN PRN IV SEV PAIN, Second choice; Start 01/24/17 at 07:00; Stop 01/24/17 at 22:48; Status DC Prochlorperazine Edisylate (Compazine) 5 mg PACU PRN PRN IV NAUSEA, MRX1; Start 01/24/17 at 07:00; Stop 01/24/17 at 22:48; Status DC Cefazolin Sodium/ Dextrose 50 ml @ 100 mls/hr 1X PREOP PRN IV PRE-OP Last administered on 01/24/17 12:25; Start 01/23/17 at 13:15; Stop 01/24/17 at 18:00 ; Status DC Gelatin (Gelfoam Size 100) 1 each STK-MED ONCE .ROUTE Last administered on 12:59; Start 01/24/17 at 07:30; Stop 01/24/17 at 07:31; Status DC Bupivacaine HCl/ Epinephrine Bitart (Sensorcain-Mpf Epi 0.5%-[id number]) 30 ml STK -MED ONCE .ROUTE Last administered on 01/24/17 12:59; Start 01/24/17 at 07:31 ; Stop 01/24/17 at 07:32; Status DC Ketorolac Tromethamine (Toradol For Or Only) 60 mg STK-MED ONCE .ROUTE Last administered on 01/24/17 12:59; Start 01/24/17 at 07:31; Stop 01/24/17 at 07:32 ; Status DC Thrombin 20,000 unit STK-MED ONCE TP Last administered on 01/24/17t 12:59; Start 01/24/17 at 07:31; Stop 01/24/17 at 07:32; Status DC Midazolam HCl (Versed) 2 mg STK-MED ONCE .ROUTE ; Start 01/24/17 at 11:05; Stop 01/24/17 at 11:06; Status DC Fentanyl Citrate (Fentanyl 5ml Vial) 250 mcg STK-MED ONCE .ROUTE ; Start at 11:05; Stop 01/24/17 at 11:06; Status DC Rocuronium Jackson (Zemuron) 50 mg STK-MED ONCE .ROUTE ; Start 01/24/17 at 11:05 ; Stop 01/24/17 at 11:06; Status DC Remifentanil HCl (Ultiva) 2 mg STK-MED ONCE IV ; Start 01/24/17 at 11:05; Stop 01/24/17 at 11:06; Status DC Propofol 50 ml @ As Directed STK-MED ONCE IV ; Start 01/24/17 at 11:09; Stop at 11:10; Status DC Multi-Ingred Cream/Lotion/Oil/ Oint (Artificial Tears Eye Oint) 7 jose a STK-MED ONCE .ROUTE ; Start 01/24/17 at 11:09; Stop 01/24/17 at 11:10; Status DC Propofol 0 ml @ As Directed STK-MED ONCE IV ; Start 01/24/17 at 11:10; Stop 01/24/17 at 11:11; Status DC Lidocaine HCl (Lidocaine Pf 2% Vial) 5 ml STK-MED ONCE .ROUTE ; Start 01/24/17 at 11:10; Stop 01/24/17 at 11:11; Status DC Dexamethasone Sodium Phosphate (Decadron) 20 mg STK-MED ONCE .ROUTE ; Start 01/24/17 at 11:10; Stop 01/24/17 at 11:11; Status DC Ondansetron HCl (Zofran) 4 mg STK-MED ONCE .ROUTE ; Start 01/24/17 at 11:10; Stop 01/24/17 at 11:11; Status DC Desflurane (Suprane) 90 ml STK-MED ONCE IH ; Start 01/24/17 at 11:10; Stop 01/24 at 11:11; Status DC Sodium Chloride (Sodium Chloride) 50 ml STK-MED ONCE IJ ; Start 01/24/17 at 11: 11; Stop 01/24/17 at 11:12; Status DC Phenylephrine HCl 1 mg STK-MED ONCE IV ; Start 01/24/17 at 12:02; Stop 01/24/17 at 12:03; Status DC Glycopyrrolate (Robinul) 1 mg STK-MED ONCE .ROUTE ; Start 01/24/17 at 12:28; Stop 01/24/17 at 12:29; Status DC Neostigmine Methylsulfate 5 mg STK-MED ONCE .ROUTE ; Start 01/24/17 at 12:28; Stop 01/24/17 at 12:29; Status DC Ephedrine Sulfate (Akovaz) 50 mg STK-MED ONCE .ROUTE ; Start 01/24/17 at 14:05; Stop 01/24/17 at 14:06; Status DC Albumin Human 500 ml @ As Directed STK-MED ONCE IV ; Start 01/24/17 at 14:07; Stop 01/24/17 at 14:08; Status DC Remifentanil HCl (Ultiva) 2 mg STK-MED ONCE IV ; Start 01/24/17 at 14:55; Stop 01/24/17 at 14:56; Status DC Propofol 50 ml @ As Directed STK-MED ONCE IV ; Start 01/24/17 at 14:57; Stop at 14:58; Status DC Propofol 20 ml @ As Directed STK-MED ONCE IV ; Start 01/24/17 at 14:57; Stop at 14:58; Status DC Propofol 20 ml @ As Directed STK-MED ONCE IV ; Start 01/24/17 at 15:09; Stop at 15:10; Status DC Propofol 50 ml @ As Directed STK-MED ONCE IV ; Start 01/24/17 at 15:50; Stop at 15:51; Status DC Cefazolin Sodium/ Dextrose 50 ml @ As Directed STK-MED ONCE IV ; Start 01/24/17 at 16:20; Stop 01/24/17 at 16:21; Status DC Phenylephrine HCl 1 mg STK-MED ONCE IV ; Start 01/24/17 at 16:54; Stop 01/24/17 at 16:55; Status DC Propofol 50 ml @ As Directed STK-MED ONCE IV ; Start 01/24/17 at 17:10; Stop at 17:11; Status DC Remifentanil HCl (Ultiva) 2 mg STK-MED ONCE IV ; Start 01/24/17 at 17:10; Stop 01/24/17 at 17:11; Status DC Propofol 50 ml @ As Directed STK-MED ONCE IV ; Start 01/24/17 at 17:30; Stop at 17:31; Status DC Hydromorphone HCl (Dilaudid) 2 mg STK-MED ONCE .ROUTE ; Start 01/24/17 at 18:07 ; Stop 01/24/17 at 18:08; Status DC Fentanyl Citrate (Fentanyl 2ml Vial) 100 mcg STK-MED ONCE .ROUTE ; Start at 18:07; Stop 01/24/17 at 18:08; Status DC Morphine Sulfate 2 mg PRN Q2HR PRN IV SEVERE PAIN Last administered on t 03:38; Start 01/24/17 at 22:45 Active Scripts Active Reported Imodium A-D (Loperamide HCl) 2 Mg Capsule 2 Mg PO Aspirin 325 Mg Tablet 1 Tab PO DAILY Vitamin D3 (Cholecalciferol (Vitamin D3)) 1,000 Unit Tablet 2,000 Unit PO Vicodin Es 7.5-300 Mg Tablet (Hydrocodone Bit/Acetaminophen) 1 Each Tablet 1 Each PO Q6H PRN Humira (Adalimumab) 40 Mg/0.8 Ml Pen.ij.kit 1 Syr SQ Q2WKS Folbic Rf Tablet (B12/Levomefolate Calcium/B-6) 1 Each Tablet 1 Each PO Omeprazole 40 Mg Capsule. 1 Cap PO DAILY Cholestyramine Packet (Cholestyramine (With Sugar)) 4 Gm Powd.pack 4 Gm PO Gabapentin 600 Mg Tablet 600 Mg PO TID Folic Acid 1 Mg Tablet 1 Tab PO DAILY Clonidine Hcl 0.1 Mg Tablet 0.1 Mg PO BID Metformin Hcl 1,000 Mg Tablet 1,000 Mg PO BIDWMEALS Atorvastatin Calcium 40 Mg Tablet 1 Tab PO DAILY Metoprolol Succinate ( Xl ) (Metoprolol Succinate) 100 Mg Tab.er.24h 100 Mg PO BID Vitals/I & O Vital Sign - Last 24 Hours 01/24/17 01/24/17 01/24/17 01/24/17 18:39 18:45 18:51 18:54 Temp 97.7 97.7 97.7 97.7 Pulse 66 72 73 Resp 18 16 18 B/P (MAP) 136/66 136/66 (89) 124/69 Pulse Ox 100 100 100 100 O2 Delivery Simple Mask Simple Mask Simple Mask Simple Mask O2 Flow Rate 10 10.0 10.0 10 01/24/17 01/24/17 01/24/17 01/24/17 19:00 19:01 19:09 19:15 Temp 98.8 98.8 Pulse 68 68 70 Resp 15 18 16 16 B/P (MAP) 124/69 (87) 148/61 148/61 (90) Pulse Ox 100 100 100 94 O2 Delivery Simple Mask Simple Mask Room Air Room Air O2 Flow Rate 10.0 10.0 01/24/17 01/24/17 01/24/17 01/24/17 19:21 19:30 19:30 19:52 Pulse 78 Resp 15 16 20 B/P (MAP) 153/68 (96) Pulse Ox 94 94 99 O2 Delivery Room Air Mask Room Air Room Air O2 Flow Rate 10.0 01/24/17 01/24/17 01/24/17 01/24/17 20:00 20:10 20:22 21:00 Pulse 85 101 Resp 21 20 18 14 B/P (MAP) 117/65 (82) 140/68 (92) Pulse Ox 96 98 97 95 O2 Delivery Room Air Room Air Room Air BiPAP/CPAP 01/24/17 01/24/17 01/24/17 01/24/17 21:23 22:00 22:54 23:00 Pulse 93 88 Resp 15 16 16 10 B/P (MAP) 138/64 (88) 139/72 (94) Pulse Ox 96 94 96 93 O2 Delivery BiPAP/CPAP BiPAP/CPAP BiPAP/CPAP Room Air 01/25/17 01/25/17 01/25/17 01/25/17 00:00 00:00 00:00 01:00 Temp 98.5 98.5 Pulse 86 77 Resp 16 11 B/P (MAP) 150/71 (97) 138/57 (84) Pulse Ox 99 99 O2 Delivery Room Air Room Air Nasal Cannula O2 Flow Rate 2.0 01/25/17 01/25/17 01/25/17 01/25/17 01:23 01:25 02:00 03:00 Pulse 72 74 Resp 16 16 9 8 B/P (MAP) 109/60 (76) 97/55 (69) Pulse Ox 100 100 100 O2 Delivery Nasal Cannula Nasal Cannula Nasal Cannula O2 Flow Rate 2.0 2.0 2.0 01/25/17 01/25/17 01/25/17 01/25/17 03:38 03:39 04:00 04:00 Temp 98.6 98.6 Pulse 71 Resp 27 27 8 B/P (MAP) 110/57 (74) Pulse Ox 100 100 100 O2 Delivery Nasal Cannula Nasal Cannula Nasal Cannula Nasal Cannula O2 Flow Rate 2.0 2.0 2.0 2.0 01/25/17 01/25/17 01/25/17 01/25/17 04:08 04:39 05:00 06:00 Pulse 93 81 Resp 16 16 30 8 B/P (MAP) 105/59 (74) 99/67 (78) Pulse Ox 100 96 100 98 O2 Delivery Nasal Cannula Nasal Cannula Nasal Cannula Nasal Cannula O2 Flow Rate 2.0 2.0 2.0 2.0 01/25/17 01/25/17 01/25/17 01/25/17 07:00 08:00 08:00 08:13 Temp 98.6 98.6 98.6 98.6 Pulse 81 81 B/P (MAP) 107/55 (72) 107/55 (72) Pulse Ox 99 99 98 O2 Delivery Nasal Cannula Nasal Cannula Nasal Cannula Nasal Cannula O2 Flow Rate 3.0 1.0 2.0 2.0 01/25/17 01/25/17 01/25/17 01/25/17 08:32 09:55 11:10 12:04 Temp 97.7 97.9 97.7 98.9 97.7 97.9 97.7 98.9 Pulse 89 92 76 77 Resp 14 16 20 20 B/P (MAP) 119/61 (80) 113/64 (80) 96/64 (75) 121/70 (87) Pulse Ox 98 99 100 98 O2 Delivery Nasal Cannula Nasal Cannula Room Air O2 Flow Rate 2.0 1.0 1.0 11/9/17 11/9/17 12:04 12:16 Pulse Ox 98 O2 Delivery Room Air Room Air O2 Flow Rate 1.0 Intake and Output 01/25/17 01/25/17 01/26/17 15:00 23:00 07:00 Intake Total 480 ml Output Total 250 ml Balance 230 ml JESSICA RAMIREZ III DO Jan 25, 2017 12:29
[2017-01-25] MEDS: METOPROLOL SUCC 24HR ER 50 MG TAB.ER.24H. PO SCH (12:32)
[2017-01-25] MEDS ORDERED: IV NORMAL SALINE 1000ML BAG 1,000 ML IV ONE (12:45)
--- NOTE | 2017-01-25 12:45 | PDOC ---
CARDIO Progress Notes Date and Time Date of Service 01/25/2017 Time of Evaluation 1230 Subjective Subjective: No Chest Pain, No shortness of breath, No Palpitations, Other ( back pain controlled) Vitals Vitals Vital Signs Date Time Temp Pulse Resp B/P (MAP) Pulse Ox O2 Delivery O2 Flow Rate FiO2 01/25/17 12:32 77 121/70 01/25/17 12:16 98 Room Air 1.0 01/25/17 12:04 98.9 20 98.9 Weight Weight [ ] Input and Output Intake and Output Intake and Output 01/26/17 07:00 Intake Total 480 ml Output Total 250 ml Balance 230 ml Intake Oral 480 ml Output Urine Total 250 ml Laboratory Labs Laboratory Tests Test 01/24/17 16:35 01/24/17 19:30 01/24/17 22:50 01/25/17 05:40 White Blood Count 6.3 x10^3/uL (4.0-11.0) 14.7 x10^3/uL (4.0-11.0) 16.3 x10^3/uL (4.0-11.0) Hemoglobin 8.5 g/dL (13.0-17.5) 8.9 g/dL (13.0-17.5) 7.9 g/dL (13.0-17.5) Hematocrit 25.3 % (39.0-53.0) 26.6 % (39.0-53.0) 23.4 % (39.0-53.0) Platelet Count 146 x10^3/uL (140-400) 177 x10^3/uL (140-400) 156 x10^3/uL (140-400) Prothrombin Time 15.3 SEC (11.7-14.0) 15.0 SEC (11.7-14.0) Prothromb Time International Ratio 1.3 (0.8-1.1) 1.3 (0.8-1.1) Activated Partial Thromboplast Time 35 SEC (24-38) 33 SEC (24-38) Fibrinogen 281 mg/dL (200-440) Red Blood Count 2.86 x10^6/uL (4.30-5.70) 2.53 x10^6/uL (4.30-5.70) Mean Corpuscular Volume 93 fL (79-100) 92 fL (79-100) Mean Corpuscular Hemoglobin 31 pg (25-35) 31 pg (25-35) Mean Corpuscular Hemoglobin Concent 34 g/dL (31-37) 34 g/dL (31-37) Red Cell Distribution Width 17.2 % (11.5-14.5) 17.6 % (11.5-14.5) Glucose (Fingerstick) 140 mg/dL (70-99) Neutrophils (%) (Auto) 79 % (31-73) Lymphocytes (%) (Auto) 4 % (24-48) Monocytes (%) (Auto) 16 % (0-9) Eosinophils (%) (Auto) 0 % (0-3) Basophils (%) (Auto) 0 % (0-3) Neutrophils # (Auto) 12.9 x10^3uL (1.8-7.7) Lymphocytes # (Auto) 0.7 x10^3/uL (1.0-4.8) Monocytes # (Auto) 2.6 x10^3/uL (0.0-1.1) Eosinophils # (Auto) 0.0 x10^3/uL (0.0-0.7) Basophils # (Auto) 0.1 x10^3/uL (0.0-0.2) Sodium Level 139 mmol/L (136-145) Potassium Level 4.4 mmol/L (3.5-5.1) Chloride Level 103 mmol/L (98-107) Carbon Dioxide Level 27 mmol/L (21-32) Anion Gap 9 (6-14) Blood Urea Nitrogen 38 mg/dL (8-26) Creatinine 1.4 mg/dL (0.7-1.3) Estimated GFR (Cockcroft-Gault) 50.0 Glucose Level 150 mg/dL (70-99) Calcium Level 7.9 mg/dL (8.5-10.1) Test 01/25/17 08:20 01/25/17 11:44 Glucose (Fingerstick) 130 mg/dL (70-99) 120 mg/dL (70-99) Microbiology Micro Microbiology 01/15/17 Blood Culture - Final, Complete NO GROWTH AFTER 5 DAYS Review of Systems Constitutional: yes: weakness, alert Ears/Nose/Throat: Yes: no symptom reported Eyes: Yes: no symptom reported Pulmonary: Yes no symptom reported Cardiovascular: Yes no symptom reported Gastrointestional: Yes: no symptom reported Skin: Yes no symptom reported Psychiatric/Neurological: Yes: no symptom reported Endocrine: Yes: no symptom reported Hematologic/Lymphatic: Yes: no symptom reported Physical Exam HEENT: Neck Supple W Full Motion Chest: Symmetric LUNGS: Clear to Auscultation Heart: S1S2, irregularly irregular (AFIB rate controlled) Abdomen: Soft N/T (truncal obesity) Extremities: No Calf Tenderness, Other (trace LE edema) Neurology: alert, oriented, follow commands Other Exams JIL with serosanguinous drain to lubar region Assessment Assessment 1. Recent syncope with traumatic fall: associated ETOH, hypoxia. 2. PAFIB: remains rate controlled 3. Vertebral compression fracture with noted epidural hematoma: S/P lumbar decompression and vertebroplasty POD#1 4. Chronic diastolic CHF: compensated 6. Chronic immunosuppression: on Humira for Chron's 7. Anemia: Hgb 7.9 8. CAD: total x7 stents with last PCI 2002. No cardiac symptoms 9. Possible multiple myeloma: vertebral osteolytic lesions. Hemonc following 10. ALESIA: CPAP 11. HTN: Low but controlled 12. DM2/HLP 13. ANDREINA: likely from volume depletion. S/P multiple blood products. Recommendations 1. Continue AFIB regimen. Not a candidate for anticoagulation at this time. Continue with ASA for stroke prevention 2. IVF x1. Decrease norvasc. Continue with statin. 3. Will follow peripherally. 4. Follow up as an outpt. [facility] Jan 25, 2017 12:45
--- NOTE | 2017-01-25 13:43 | PDOC ---
Provider Note Provider Note 71 yo man with Chance fracture of L3. Now s/p L1 to L4 fusion laminectomy L4, Bx L3 and removal of L4 hematoma on01/24/2017. Doing well post op. Pain much better. Elated that dx is benign. Impression: Surgically stabilized fx of L3. Likely all benign. Await final pathology. CHERRY CINTRON MD Jan 25, 2017 13:43
[2017-01-25] MEDS: ATORVASTATIN CALCIUM 40 MG TABLET. PO SCH (20:52)
[2017-01-26] VITALS (19 sets, daily range): BP systolic 99–143; BP diastolic 56–79
--- NOTE | 2017-01-26 00:48 | CONS ---
DATE OF CONSULTATION: 01/25/2017 ATTENDING PHYSICIAN: Dr. Velasquez. The patient was seen at the request of Dr. Velasquez and Dr. Ledezma for rehab evaluation. HISTORY OF PRESENT ILLNESS: This is a 71-year-old right-handed male with history of coronary artery disease, diabetes mellitus and Crohn disease after he presented with syncopal episode at home. Sitting in the chair, he got up and felt dizzy and fell back in the chair. When he tried to get up again, he passed out, apparently fell forwards. Emergency Medical Services personnel, when they arrived, noted his pulse ox about 80%, GCS 3. The patient was admitted through the Emergency Room, was found with elevated D-dimer, with suspicion of pulmonary emboli. Since admission, he had radiological studies. Chest x-ray revealed mild cardiomegaly. Lumbar spine CT scan revealed no acute fracture or osteosclerotic lesions, which may represent osteosclerotic metastatic disease. Prostate cancer is a possibility. Thoracic spine CT scan revealed mild compression deformities of T9, T11 and T12 of indeterminate age. CT scan of the brain failed to reveal any acute abnormality. Bone biopsy CT-guided of L3 lesion was done on 01/17/2017. Pulmonary perfusion imaging was negative for pulmonary emboli. Lower extremity ultrasound was negative for deep venous thrombosis. Repeat chest x-ray failed to reveal any acute abnormalities. CT of the chest and abdomen revealed known bony pathology in the cervical and lumbar spine; several left rib fractures which appeared recent or acute; moderate peripancreatic adenopathy; stranding and irregularity involving the mesentery, probably representing old disease and 4.5 cm low-density mass adjacent to the left kidney of unknown etiology. Renal ultrasound revealed a small left renal cyst, bilateral renal cortical scarring, no evidence of obstruction and echogenic debris in the urinary bladder. Bone scan done on 01/18/2017 revealed photopenic area involving L3, corresponding to the infiltrative lesion seen on CT scan. No significant radiotracer uptake, may be from multiple myeloma. Also, no significant uptake involving left fourth and fifth ribs seen previously. This fracture appears acute on the chest CT; however, this could be secondary to a marrow infiltrative process involving these ribs. No significant uptake was seen in the cervical spine. This could represent bone island rather than osseous metastatic disease. Metastatic series done on 01/18/2017 revealed generalized bony demineralization; multilevel degenerative changes in the spine; sclerotic foci in the cervical spine, likely benign; distracted Chance-type fracture of L3 vertebral body that demonstrated on previous CT images. Lumbar spine MRI scan done on 01/19/2017 revealed auto-fusion of L1, L2, L3 and L4, with distracted fracture extending through the anterior, middle and posterior columns of L3 vertebrae as well as posterior elements of L3 vertebral level, compatible with a Chance fracture. There is disruption of the anterior and posterior longitudinal ligaments as well as posterior ligamentous complex. There is an epidural hematoma resulting in severe spinal canal stenosis and likely cauda equina syndrome. CT of the lumbar spine done on 01/24/2017 revealed Chance fracture of L3 vertebra with 4-5 mm anterior displacement of superior fracture segment, related to the inferior fracture segment of the vertebral body; circumferential narrowing of the lumbar spine canal at L3 level, unchanged and secondary to epidural hematoma based on the MRI scan study. The patient underwent lumbar decompression laminectomy and fusion from L1-L4, done on 01/24/2017. He admits some pain in his back. He admits some numbness in his hands and feet from diabetic neuropathy. The patient with known coronary artery disease, hypertension, hyperlipidemia, diabetes mellitus, benign prostatic hypertrophy, multiple compression fractures in the 80s after a fall, status post colon resection for Crohn disease, appendectomy and cholecystectomy. FAMILY HISTORY: Positive for coronary artery disease in both parents. He lives with his , had stairs to manage. He never smoked, continued to drink alcohol fairly and heavily. ALLERGIES: HE IS KNOWN ALLERGIC TO AZATHIOPRINE, LASIX AND INFLIXIMAB. PHYSICAL EXAMINATION: Today revealed an elderly male. He is alert and oriented to time, place, person and circumstance. Follows commands appropriately. He is somewhat obese. He had 4+/5 grade muscle strength overall, with relatively increased weakness around hip flexors and also significant weakness of dorsiflexor muscles of both feet. Deep tendon reflexes are decreased overall, with absent knee and ankle jerks; and he had equal perception of touch and pinprick sensation bilaterally. He had mild crepitus on range of motion of both knee joints, without any obvious knee joint effusion. He requires help with bed mobility. He had an indwelling Carlos catheter in place and he is receiving oxygen by nasal mask. He had dressing to his lumbar spine area. Straight leg raising test is negative bilaterally. ASSESSMENT: Mobility and self-care limitation in a patient status post Chance fracture of L3 vertebral body, status post decompression laminectomy for treatment of lumbar spinal stenosis secondary to hematoma epidural in that area. 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 RECOMMENDATIONS: To get him up as tolerated using back support brace. He may need bilateral ankle foot braces to help with his footdrop. To consider transfer to rehab or [facility] care unit or to long-term acute care unit when he is medically stable, depending upon his participation in therapy in the next few days. Dr. Velasquez and Dr. Ledezma, I appreciate asking me to participate in the care of this interesting patient. I will be glad to follow him with you as needed for his rehabilitation. FARHAT MOLINA MD DR: HAWK/meagan JOB#: [id number] / [id number]
[2017-01-26 06:47] LABS: CREATININE 1.4 mg/dL (0.7-1.3); POTASSIUM 4.3 mmol/L (3.5-5.1)
[2017-01-26 06:58] LABS: BASO % 0 % (0-3); EOS % 0 % (0-3); LYMPH # 0.6 x10^3/uL (1.0-4.8); LYMPH % 6 % (24-48); MEAN CORPUSCULAR HEMOGLOBIN 32 pg (25-35); MEAN CORPUSCULAR HGB CONC 34 g/dL (31-37); MEAN CORPUSCULAR VOLUME 94 fL (79-100); MONO % 15 % (0-9); NEUT % 79 % (31-73); PLATELET COUNT 115 x10^3/uL (140-400); RED BLOOD COUNT 2.03 x10^6/uL (4.30-5.70); RED CELL DISTRIBUTION WIDTH 17.1 % (11.5-14.5); WHITE BLOOD COUNT 9.8 x10^3/uL (4.0-11.0)
[2017-01-26 07:00] LABS: HEMATOCRIT 19.2 % (39.0-53.0); HEMOGLOBIN 6.6 g/dL (13.0-17.5)
[2017-01-26] MEDS: INSULIN ASPART 300 UNITS/3 ML INSULN.PEN SQ SCH ×3 (08:00→17:28)
[2017-01-26] MEDS: PANTOPRAZOLE 40 MG TABLET.DR. PO SCH (08:22)
[2017-01-26] MEDS: SENNOSIDES/DOCUSATE 8.6/50MG TABLET. PO SCH (08:23)
[2017-01-26] MEDS: GABAPENTIN 300 MG CAPSULE. PO SCH ×3 (08:23→20:44)
[2017-01-26] MEDS: LACTOBACILLUS RHAMNOSUS GG 1 CAPSULE. PO SCH ×2 (08:23→20:44)
[2017-01-26] MEDS: POLYETHYLENE GLYCOL 3350 17 GM PACKET. PO SCH (08:23)
[2017-01-26] MEDS: FOLIC ACID 1 MG TABLET. PO SCH (08:23)
[2017-01-26] MEDS: CHOLECALCIFEROL (VITAMIN D3) 1,000 UNIT TABLET PO SCH (08:24)
[2017-01-26] MEDS: oxyCODONE ER 15 MG TAB.ER.12H PO SCH ×2 (08:24→20:45)
[2017-01-26] MEDS: ASPIRIN ENTERIC COATED 81 MG TABLET.DR. PO SCH (08:24)
[2017-01-26] MEDS: amLODIPine BESYLATE 5 MG TABLET PO SCH (08:24)
[2017-01-26] MEDS: METOPROLOL SUCC 24HR ER 50 MG TAB.ER.24H. PO SCH (08:25)
[2017-01-26] MEDS: DEXAMETHASONE SOD PHOS 4 MG/ML VIAL IV SCH ×2 (08:25→20:46)
--- NOTE | 2017-01-26 08:53 | PDOC ---
PROGRESS NOTES Subjective Subjective HPI - Bone lesion due to fracture. He also has multiple other lesions in the spine. Thought to be benign. Now s/p L1 to L4 fusion laminectomy L4, Bx L3 and removal of L4 hematoma 10/2016. ROS - back pain stable Objective Objective Vital Signs Date Time Temp Pulse Resp B/P (MAP) Pulse Ox O2 Delivery O2 Flow Rate FiO2 01/26/17 08:32 98.2 66 19 128/70 98.2 01/26/17 08:24 100 Nasal Cannula 2.0 Intake and Output 01/27/17 07:00 Intake Total 250 ml Balance 250 ml Blood Product IV Normal Saline Flush 250 ml Physical Exam Heart: Normal S1, Normal S2 General: Alert, Oriented X3 Lungs: Clear to auscultation Neuro: Normal speech Psych/Mental Status: Mental status NL Assessment Assessment Problems Medical Problems: (1) Elevated d-dimer Status: Acute (2) Elevated serum creatinine Status: Acute (3) Hypoxia Status: Acute (4) Lactic acidosis Status: Acute (5) 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 Bone lesion due to fracture. He also has multiple other lesions in the spine. Thought to be benign. Now s/p L1 to L4 fusion laminectomy L4, Bx L3 and removal of L4 hematoma 10/2016. Bone scan does not reveal uptake and hence multiple myeloma is suspected. Myeloma labs normal. Bone survey 01/18/17: Sclerotic foci in the cervical spine. These are likely benign in view of the lack of abnormal uptake on the current bone scan. Distracted Chance type fracture of the L3 vertebral body, better demonstrated on previous CT images. Since the CT chest, abdomen and pelvis did not reveal a clear primary focus, he had biopsy of the L3 vertebral lesion - done 01/17/17, non-diagnostic. I d/w IR, he feels that this may just be an acute fracture. MRI reviewed. There is autofusion of L1-L2 and L3-L5 with a distracted fracture extending through the anterior, middle and posterior columns of the L3 vertebrae as well as the posterior elements at the L3 vertebral level compatible with a Chance fracture. There is disruption of the anterior and posterior longitudinal ligaments as well as the posterior ligamentous complex. There is an epidural hematoma resulting in severe spinal canal stenosis and likely cauda equina syndrome. s/p Surgery 01/24/17. Hematoma noted. PSA normal. 2. Left renal lesion, u/s ultrasound of the kidney does not reveal malignancy. 3. Anemia. This is likely secondary to malignancy. I will continue to monitor. Comment Review of Relevant I have reviewed the following items bernadine (where applicable) has been applied. Labs Laboratory Tests Test 01/24/17 16:35 01/24/17 19:30 01/24/17 19:50 01/24/17 22:50 White Blood Count 6.3 x10^3/uL (4.0-11.0) 14.7 x10^3/uL (4.0-11.0) Hemoglobin 8.5 g/dL (13.0-17.5) 8.9 g/dL (13.0-17.5) Hematocrit 25.3 % (39.0-53.0) 26.6 % (39.0-53.0) Platelet Count 146 x10^3/uL (140-400) 177 x10^3/uL (140-400) Prothrombin Time 15.3 SEC (11.7-14.0) 15.0 SEC (11.7-14.0) Prothromb Time International Ratio 1.3 (0.8-1.1) 1.3 (0.8-1.1) Activated Partial Thromboplast Time 35 SEC (24-38) 33 SEC (24-38) Fibrinogen 281 mg/dL (200-440) Red Blood Count 2.86 x10^6/uL (4.30-5.70) Mean Corpuscular Volume 93 fL (79-100) Mean Corpuscular Hemoglobin 31 pg (25-35) Mean Corpuscular Hemoglobin Concent 34 g/dL (31-37) Red Cell Distribution Width 17.2 % (11.5-14.5) Nasal Screen MRSA (PCR) Negative (Negative) Glucose (Fingerstick) 140 mg/dL (70-99) Test 01/25/17 05:40 01/25/17 08:20 01/25/17 11:44 01/25/17 16:56 White Blood Count 16.3 x10^3/uL (4.0-11.0) Red Blood Count 2.53 x10^6/uL (4.30-5.70) Hemoglobin 7.9 g/dL (13.0-17.5) Hematocrit 23.4 % (39.0-53.0) Mean Corpuscular Volume 92 fL (79-100) Mean Corpuscular Hemoglobin 31 pg (25-35) Mean Corpuscular Hemoglobin Concent 34 g/dL (31-37) Red Cell Distribution Width 17.6 % (11.5-14.5) Platelet Count 156 x10^3/uL (140-400) Neutrophils (%) (Auto) 79 % (31-73) Lymphocytes (%) (Auto) 4 % (24-48) Monocytes (%) (Auto) 16 % (0-9) Eosinophils (%) (Auto) 0 % (0-3) Basophils (%) (Auto) 0 % (0-3) Neutrophils # (Auto) 12.9 x10^3uL (1.8-7.7) Lymphocytes # (Auto) 0.7 x10^3/uL (1.0-4.8) Monocytes # (Auto) 2.6 x10^3/uL (0.0-1.1) Eosinophils # (Auto) 0.0 x10^3/uL (0.0-0.7) Basophils # (Auto) 0.1 x10^3/uL (0.0-0.2) Sodium Level 139 mmol/L (136-145) Potassium Level 4.4 mmol/L (3.5-5.1) Chloride Level 103 mmol/L (98-107) Carbon Dioxide Level 27 mmol/L (21-32) Anion Gap 9 (6-14) Blood Urea Nitrogen 38 mg/dL (8-26) Creatinine 1.4 mg/dL (0.7-1.3) Estimated GFR (Cockcroft-Gault) 50.0 Glucose Level 150 mg/dL (70-99) Calcium Level 7.9 mg/dL (8.5-10.1) Glucose (Fingerstick) 130 mg/dL (70-99) 120 mg/dL (70-99) 120 mg/dL (70-99) Test 01/25/17 20:58 01/26/17 05:15 01/26/17 07:44 Glucose (Fingerstick) 149 mg/dL (70-99) 118 mg/dL (70-99) White Blood Count 9.8 x10^3/uL (4.0-11.0) Red Blood Count 2.03 x10^6/uL (4.30-5.70) Hemoglobin 6.6 g/dL (13.0-17.5) Hematocrit 19.2 % (39.0-53.0) Mean Corpuscular Volume 94 fL (79-100) Mean Corpuscular Hemoglobin 32 pg (25-35) Mean Corpuscular Hemoglobin Concent 34 g/dL (31-37) Red Cell Distribution Width 17.1 % (11.5-14.5) Platelet Count 115 x10^3/uL (140-400) Neutrophils (%) (Auto) 79 % (31-73) Lymphocytes (%) (Auto) 6 % (24-48) Monocytes (%) (Auto) 15 % (0-9) Eosinophils (%) (Auto) 0 % (0-3) Basophils (%) (Auto) 0 % (0-3) Neutrophils # (Auto) 7.7 x10^3uL (1.8-7.7) Lymphocytes # (Auto) 0.6 x10^3/uL (1.0-4.8) Monocytes # (Auto) 1.5 x10^3/uL (0.0-1.1) Eosinophils # (Auto) 0.0 x10^3/uL (0.0-0.7) Basophils # (Auto) 0.0 x10^3/uL (0.0-0.2) Sodium Level 137 mmol/L (136-145) Potassium Level 4.3 mmol/L (3.5-5.1) Chloride Level 103 mmol/L (98-107) Carbon Dioxide Level 29 mmol/L (21-32) Anion Gap 5 (6-14) Blood Urea Nitrogen 41 mg/dL (8-26) Creatinine 1.4 mg/dL (0.7-1.3) Estimated GFR (Cockcroft-Gault) 50.0 Glucose Level 127 mg/dL (70-99) Calcium Level 8.0 mg/dL (8.5-10.1) Laboratory Tests Test 01/25/17 11:44 01/25/17 16:56 01/25/17 20:58 01/26/17 05:15 Glucose (Fingerstick) 120 mg/dL (70-99) 120 mg/dL (70-99) 149 mg/dL (70-99) White Blood Count 9.8 x10^3/uL (4.0-11.0) Red Blood Count 2.03 x10^6/uL (4.30-5.70) Hemoglobin 6.6 g/dL (13.0-17.5) Hematocrit 19.2 % (39.0-53.0) Mean Corpuscular Volume 94 fL (79-100) Mean Corpuscular Hemoglobin 32 pg (25-35) Mean Corpuscular Hemoglobin Concent 34 g/dL (31-37) Red Cell Distribution Width 17.1 % (11.5-14.5) Platelet Count 115 x10^3/uL (140-400) Neutrophils (%) (Auto) 79 % (31-73) Lymphocytes (%) (Auto) 6 % (24-48) Monocytes (%) (Auto) 15 % (0-9) Eosinophils (%) (Auto) 0 % (0-3) Basophils (%) (Auto) 0 % (0-3) Neutrophils # (Auto) 7.7 x10^3uL (1.8-7.7) Lymphocytes # (Auto) 0.6 x10^3/uL (1.0-4.8) Monocytes # (Auto) 1.5 x10^3/uL (0.0-1.1) Eosinophils # (Auto) 0.0 x10^3/uL (0.0-0.7) Basophils # (Auto) 0.0 x10^3/uL (0.0-0.2) Sodium Level 137 mmol/L (136-145) Potassium Level 4.3 mmol/L (3.5-5.1) Chloride Level 103 mmol/L (98-107) Carbon Dioxide Level 29 mmol/L (21-32) Anion Gap 5 (6-14) Blood Urea Nitrogen 41 mg/dL (8-26) Creatinine 1.4 mg/dL (0.7-1.3) Estimated GFR (Cockcroft-Gault) 50.0 Glucose Level 127 mg/dL (70-99) Calcium Level 8.0 mg/dL (8.5-10.1) Test 01/26/17 07:44 Glucose (Fingerstick) 118 mg/dL (70-99) Microbiology 01/15/17 Blood Culture - Final, Complete NO GROWTH AFTER 5 DAYS Medications Current Medications Fentanyl Citrate (Fentanyl 2ml Vial) 50 mcg 1X ONCE IV Last administered on 21:52; Start 01/15/17 at 22:00; Stop 01/15/17 at 22:01; Status DC Sodium Chloride 1,000 ml @ 150 mls/hr 1X ONCE IV Last administered on 22:31; Start 01/15/17 at 22:00; Stop 01/16/17 at 04:39; Status DC Piperacillin Sod/ Tazobactam Sod 3.375 gm/Dextrose 50 ml @ 100 mls/hr 1X ONCE IV Last administered on 01/15/17 23:22; Start 01/15/17 at 23:30; Stop 01/15 at 23:59; Status DC Heparin Sodium (Porcine) (Heparin Sodium) 9,450 unit 1X ONCE IV Last administered on 01/15/17 23:30; Start 01/15/17 at 23:30; Stop 01/16/17 at 16 :41; Status DC Heparin Sodium/ Dextrose 500 ml @ 0 mls/hr CONT PRN IV SEE I/O RECORD Last administered on 01/16/17 16:26; Start 01/15/17 at 23:15; Stop 01/16/17 at 16 :41; Status DC Heparin Sodium (Porcine) (Heparin Sodium) 3,550 unit PRN Q6HRS PRN IV FOR UFH LEVEL LESS THAN 0.2; Start 01/15/17 at 23:15; Stop 01/16/17 at 16:41; Status DC Heparin Sodium (Porcine) (Heparin Sodium) 1,750 unit PRN Q6HRS PRN IV FOR UFH LEVEL 0.2 - 0.29; Start 01/15/17 at 23:15; Stop 01/16/17 at 16:41; Status DC Warfarin Sodium (Coumadin Per Pharmacy) 1 each PRN DAILY PRN MC PER PROTOCOL Last administered on 01/16/17 10:20; Start 01/15/17 at 23:15; Stop 01/16/17 at 16:39; Status DC Info (Anti-Coagulation Monitoring By Pharmacy) 1 each PRN DAILY PRN MC SEE COMMENTS Last administered on 01/16/17 10:17; Start 01/15/17 at 23:30; Stop 01/18/17 at 14:31; Status DC Ondansetron HCl (Zofran) 4 mg PRN Q8HRS PRN IV NAUSEA/VOMITING; Start at 23:15; Stop 01/16/17 at 23:14; Status DC Fentanyl Citrate (Fentanyl 2ml Vial) 50 mcg PRN Q2HR PRN IV SEVERE PAIN Last administered on 01/16/17 01:33; Start 01/15/17 at 23:15; Stop 01/16/17 at 02 :47; Status DC Piperacillin Sod/ Tazobactam Sod (Zosyn Per Pharmacy) 1 each PRN DAILY PRN MC SEE COMMENTS; Start 01/15/17 at 23:15; Stop 01/16/17 at 02:54; Status DC Sodium Chloride 1,000 ml @ 150 mls/hr 1X ONCE IV Last administered on 01:34; Start 01/15/17 at 23:45; Stop 01/16/17 at 06:24; Status DC Albuterol Sulfate (Ventolin Neb Soln) 2.5 mg PRN Q3HRS PRN NEB WHEEZING Last administered on 01/16/17 11:24; Start 01/15/17 at 23:30 Morphine Sulfate 2 mg 1X ONCE IV Last administered on 01/15/17 23:47; Start 01/16/17 at 00:00; Stop 01/16/17 at 00:01; Status DC Fentanyl Citrate (Fentanyl 2ml Vial) 75 mcg PRN Q2HR PRN IV SEVERE PAIN Last administered on 01/16/17 13:56; Start 01/16/17 at 02:45; Stop 01/16/17 at 16 :41; Status DC Piperacillin Sod/ Tazobactam Sod (Zosyn Per Pharmacy) 1 each PRN DAILY PRN MC SEE COMMENTS; Start 01/16/17 at 02:45; Stop 01/17/17 at 16:01; Status DC Piperacillin Sod/ Tazobactam Sod (Zosyn) 2.25 gm Q6HRS IVP Last administered on 01/17/17 12:01; Start 01/16/17 at 06:00; Stop 01/17/17 at 16:01; Status DC Info (Anti-Coagulation Monitoring By Pharmacy) 1 each PRN DAILY PRN MC SEE COMMENTS; Start 01/16/17 at 09:45; Status Cancel Warfarin Sodium (Coumadin) 5 mg 1X WARF ONCE PO ; Start 01/16/17 at 16:00; Stop 01/16/17 at 16:39; Status DC Lactobacillus Rhamnosus (Culturelle) 1 cap BID PO Last administered on 08:23; Start 01/16/17 at 21:00 Magnesium Sulfate/ Dextrose 50 ml @ 25 mls/hr 1X ONCE IV Last administered on 01/16/17 12:45; Start 01/16/17 at 11:30; Stop 01/16/17 at 13:29; Status DC Linezolid 300 ml @ 300 mls/hr Q12HR IV Last administered on 01/16/17 20:58; Start 01/16/17 at 12:00; Stop 01/17/17 at 08:14; Status DC Iohexol (Omnipaque 240 Mg/ml) 30 ml 1X ONCE PO ; Start 01/16/17 at 12:00; Stop 01/16/17 at 12:01; Status DC Info (Do NOT chart on this entry -- for MONITORING) 1 each PRN DAILY PRN MC SEE COMMENTS; Start 01/16/17 at 12:00; Stop 01/18/17 at 11:59; Status DC Magnesium Sulfate/ Dextrose 50 ml @ 25 mls/hr PRN DAILY PRN IV for Mag < 1.7 on am labs; Start 01/16/17 at 13:15 Metoprolol Succinate (Toprol Xl) 50 mg BID PO Last administered on 01/21/17 08 :11; Start 01/16/17 at 21:00; Stop 01/21/17 at 08:33; Status DC Sodium Chloride 1,000 ml @ 100 mls/hr Q10H IV Last administered on 01/18/17 05:45; Start 01/16/17 at 13:45; Stop 01/18/17 at 11:44; Status DC Aspirin (Charmaine Aspirin) 325 mg DAILYWBKFT PO Last administered on 01/19/17 08: 35; Start 01/17/17 at 08:00; Stop 01/19/17 at 09:49; Status DC Atorvastatin Calcium (Lipitor) 40 mg QHS PO Last administered on 01/25/17 20: 52; Start 01/16/17 at 21:00 Vitamin D (Vitamin D3) 2,000 unit DAILY PO Last administered on 01/26/17 08: 24; Start 01/17/17 at 09:00 Clonidine HCl (Catapres) 0.1 mg BID PO Last administered on 01/19/17 08:35; Start 01/16/17 at 21:00; Stop 01/19/17 at 09:52; Status DC Folic Acid (Folic Acid) 1 mg DAILY PO Last administered on 01/26/17 08:23; Start 01/17/17 at 09:00 Loperamide HCl (Imodium) 2 mg Q2H PRN PO diarrhea; Start 01/16/17 at 16:45 Metoprolol Succinate (Toprol Xl) 100 mg BID PO ; Start 01/16/17 at 21:00; Status UNV Gabapentin (Neurontin) 600 mg TID PO Last administered on 01/26/17 08:23; Start 01/16/17 at 21:00 Pantoprazole Sodium (Protonix) 40 mg DAILYAC PO Last administered on 08:22; Start 01/17/17 at 07:30 Insulin Aspart (NovoLOG) 0-9 UNITS TIDWMEALS SQ Last administered on 01/22/17 17:00; Start 01/16/17 at 17:00 Dextrose (Dextrose 50%-Water Syringe) 12.5 gm PRN Q15MIN PRN IV SEE COMMENTS; Start 01/16/17 at 16:45 Dexamethasone Sodium Phosphate (Decadron) 10 mg 1X ONCE IV Last administered on 01/16/17 17:05; Start 01/16/17 at 16:45; Stop 01/16/17 at 16:46; Status DC Dexamethasone Sodium Phosphate (Decadron) 4 mg Q6HRS IV Last administered on 05:58; Start 01/17/17 at 00:00; Stop 01/18/17 at 15:31; Status DC Morphine Sulfate 2 mg PRN Q2HR PRN IV PAIN Last administered on 01/24/17 19:52 ; Start 01/16/17 at 16:45; Stop 01/24/17 at 22:39; Status DC Oxycodone/ Acetaminophen (Percocet 10/325) 1 tab PRN Q4HRS PRN PO pain Last administered on 01/25/17 14:54; Start 01/16/17 at 16:45 Heparin Sodium (Porcine) (Heparin Sq) 5,000 unit Q8HRS SQ Last administered on 01/23/17 06:00; Start 01/16/17 at 22:00; Stop 01/23/17 at 13:16; Status DC Diazepam (Valium) 5 mg PRN Q6HRS PRN IV SEIZURES; Start 01/16/17 at 18:30; Status Cancel Diazepam (Valium) 5 mg PRN Q6HRS PRN PO TREMORS Last administered on 01/24/17 21:22; Start 01/16/17 at 18:45 Fentanyl Citrate (Fentanyl 2ml Vial) 100 mcg STK-MED ONCE .ROUTE ; Start at 10:08; Stop 01/17/17 at 10:09; Status DC Midazolam HCl (Versed) 2 mg STK-MED ONCE .ROUTE ; Start 01/17/17 at 10:08; Stop 01/17/17 at 10:09; Status DC Lidocaine/Sodium Bicarbonate (Buffered Lidocaine 1%) 20 ml 1X ONCE IJ Last administered on 01/17/17 10:51; Start 01/17/17 at 10:15; Stop 01/17/17 at 10:16 ; Status DC Midazolam HCl (Versed) 2 mg 1X ONCE IV Last administered on 01/17/17 10:52; Start 01/17/17 at 10:15; Stop 01/17/17 at 10:16; Status DC Fentanyl Citrate (Fentanyl 2ml Vial) 100 mcg 1X ONCE IV Last administered on 01/17/17 10:52; Start 01/17/17 at 10:15; Stop 01/17/17 at 10:16; Status DC Lidocaine/Sodium Bicarbonate (Buffered Lidocaine 1%) 20 ml STK-MED ONCE IJ ; Start 01/17/17 at 10:14; Stop 01/17/17 at 10:15; Status DC Piperacillin Sod/ Tazobactam Sod (Zosyn) 3.375 gm Q6HRS IVP Last administered on 01/18/17 06:00; Start 01/17/17 at 18:00; Stop 01/18/17 at 10:42; Status DC Dexamethasone Sodium Phosphate (Decadron) 4 mg Q12HR IV Last administered on 08:25; Start 01/18/17 at 21:00 Aspirin (Ecotrin) 81 mg DAILYWBKFT PO Last administered on 01/26/17 08:24; Start 01/20/17 at 08:00 Amlodipine Besylate (Norvasc) 10 mg DAILY PO Last administered on 01/24/17 09: 35; Start 01/19/17 at 10:00; Stop 01/25/17 at 12:44; Status DC Oxycodone HCl (OxyCONTIN) 30 mg Q12HR PO Last administered on 01/26/17 08:24 ; Start 01/19/17 at 11:45 Senna/Docusate Sodium (Senna Plus) 2 tab DAILY PO Last administered on 08:23; Start 01/19/17 at 12:00 Gadobutrol (Gadavist) 10 mmol 1X ONCE IV ; Start 01/19/17 at 15:45; Stop at 15:46; Status DC Sodium Chloride 1,000 ml @ 75 mls/hr [id number] IV Last administered on 02:12; Start 01/20/17 at 11:15; Stop 01/21/17 at 18:06; Status DC Polyethylene Glycol (miraLAX PACKET) 17 gm DAILY PO Last administered on 08:23; Start 01/20/17 at 15:00 Metoprolol Succinate (Toprol Xl) 50 mg DAILY PO Last administered on 08:25; Start 01/21/17 at 09:00 Bacitracin 09944 unit/Sodium Chloride 1,000 ml @ 1,000 mls/hr 1X PERIOP ONCE IRR Last administered on 01/24/17 12:59; Start 01/24/17 at 06:00; Stop at 06:59; Status DC Ondansetron HCl (Zofran) 4 mg PRN Q6HRS PRN IV NAUSEA/VOMITING; Start 01/24/17 at 07:00; Stop 01/25/17 at 06:59; Status DC Fentanyl Citrate (Fentanyl 2ml Vial) 25 mcg PRN Q5MIN PRN IV MILD PAIN; Start 01/24/17 at 07:00; Stop 01/24/17 at 22:48; Status DC Fentanyl Citrate (Fentanyl 2ml Vial) 50 mcg PRN Q5MIN PRN IV MODERATE PAIN Last administered on 01/24/17 19:01; Start 01/24/17 at 07:00; Stop 01/24/17 at 22:48; Status DC Morphine Sulfate 1 mg PRN Q10MIN PRN IV SEVERE PAIN; Start 01/24/17 at 07:00; Stop 01/24/17 at 22:48; Status DC Ringer's Solution 1,000 ml @ 30 mls/hr Q24H IV Last administered on 01/24/17 11:40; Start 01/24/17 at 07:00; Stop 01/24/17 at 18:59; Status DC Lidocaine HCl (Xylocaine-Mpf 1% Vial) 2 ml PRN 1X PRN ID IV START; Start at 07:00; Stop 01/25/17 at 06:59; Status DC Hydromorphone HCl (Dilaudid) 0.5 mg PRN Q10MIN PRN IV SEV PAIN, Second choice; Start 01/24/17 at 07:00; Stop 01/24/17 at 22:48; Status DC Prochlorperazine Edisylate (Compazine) 5 mg PACU PRN PRN IV NAUSEA, MRX1; Start 01/24/17 at 07:00; Stop 01/24/17 at 22:48; Status DC Cefazolin Sodium/ Dextrose 50 ml @ 100 mls/hr 1X PREOP PRN IV PRE-OP Last administered on 01/24/17 12:25; Start 01/23/17 at 13:15; Stop 01/24/17 at 18:00 ; Status DC Gelatin (Gelfoam Size 100) 1 each STK-MED ONCE .ROUTE Last administered on 12:59; Start 01/24/17 at 07:30; Stop 01/24/17 at 07:31; Status DC Bupivacaine HCl/ Epinephrine Bitart (Sensorcain-Mpf Epi 0.5%-[id number]) 30 ml STK -MED ONCE .ROUTE Last administered on 01/24/17 12:59; Start 01/24/17 at 07:31 ; Stop 01/24/17 at 07:32; Status DC Ketorolac Tromethamine (Toradol For Or Only) 60 mg STK-MED ONCE .ROUTE Last administered on 01/24/17t 12:59; Start 01/24/17 at 07:31; Stop 01/24/17 at 07:32 ; Status DC Thrombin 20,000 unit STK-MED ONCE TP Last administered on 01/24/17t 12:59; Start 01/24/17 at 07:31; Stop 01/24/17 at 07:32; Status DC Midazolam HCl (Versed) 2 mg STK-MED ONCE .ROUTE ; Start 01/24/17 at 11:05; Stop 01/24/17 at 11:06; Status DC Fentanyl Citrate (Fentanyl 5ml Vial) 250 mcg STK-MED ONCE .ROUTE ; Start at 11:05; Stop 01/24/17 at 11:06; Status DC Rocuronium [place] (Zemuron) 50 mg STK-MED ONCE .ROUTE ; Start 01/24/17 at 11:05 ; Stop 01/24/17 at 11:06; Status DC Remifentanil HCl (Ultiva) 2 mg STK-MED ONCE IV ; Start 01/24/17 at 11:05; Stop 01/24/17 at 11:06; Status DC Propofol 50 ml @ As Directed STK-MED ONCE IV ; Start 01/24/17 at 11:09; Stop at 11:10; Status DC Multi-Ingred Cream/Lotion/Oil/ Oint (Artificial Tears Eye Oint) 7 jose a STK-MED ONCE .ROUTE ; Start 01/24/17 at 11:09; Stop 01/24/17 at 11:10; Status DC Propofol 0 ml @ As Directed STK-MED ONCE IV ; Start 01/24/17 at 11:10; Stop 01/24/17 at 11:11; Status DC Lidocaine HCl (Lidocaine Pf 2% Vial) 5 ml STK-MED ONCE .ROUTE ; Start 01/24/17 at 11:10; Stop 01/24/17 at 11:11; Status DC Dexamethasone Sodium Phosphate (Decadron) 20 mg STK-MED ONCE .ROUTE ; Start 01/24/17 at 11:10; Stop 01/24/17 at 11:11; Status DC Ondansetron HCl (Zofran) 4 mg STK-MED ONCE .ROUTE ; Start 01/24/17 at 11:10; Stop 01/24/17 at 11:11; Status DC Desflurane (Suprane) 90 ml STK-MED ONCE IH ; Start 01/24/17 at 11:10; Stop 01/24 at 11:11; Status DC Sodium Chloride (Sodium Chloride) 50 ml STK-MED ONCE IJ ; Start 01/24/17 at 11: 11; Stop 01/24/17 at 11:12; Status DC Phenylephrine HCl 1 mg STK-MED ONCE IV ; Start 01/24/17 at 12:02; Stop 01/24/17 at 12:03; Status DC Glycopyrrolate (Robinul) 1 mg STK-MED ONCE .ROUTE ; Start 01/24/17 at 12:28; Stop 01/24/17 at 12:29; Status DC Neostigmine Methylsulfate 5 mg STK-MED ONCE .ROUTE ; Start 01/24/17 at 12:28; Stop 01/24/17 at 12:29; Status DC Ephedrine Sulfate (Akovaz) 50 mg STK-MED ONCE .ROUTE ; Start 01/24/17 at 14:05; Stop 01/24/17 at 14:06; Status DC Albumin Human 500 ml @ As Directed STK-MED ONCE IV ; Start 01/24/17 at 14:07; Stop 01/24/17 at 14:08; Status DC Remifentanil HCl (Ultiva) 2 mg STK-MED ONCE IV ; Start 01/24/17 at 14:55; Stop 01/24/17 at 14:56; Status DC Propofol 50 ml @ As Directed STK-MED ONCE IV ; Start 01/24/17 at 14:57; Stop at 14:58; Status DC Propofol 20 ml @ As Directed STK-MED ONCE IV ; Start 01/24/17 at 14:57; Stop at 14:58; Status DC Propofol 20 ml @ As Directed STK-MED ONCE IV ; Start 01/24/17 at 15:09; Stop at 15:10; Status DC Propofol 50 ml @ As Directed STK-MED ONCE IV ; Start 01/24/17 at 15:50; Stop at 15:51; Status DC Cefazolin Sodium/ Dextrose 50 ml @ As Directed STK-MED ONCE IV ; Start 01/24/17 at 16:20; Stop 01/24/17 at 16:21; Status DC Phenylephrine HCl 1 mg STK-MED ONCE IV ; Start 01/24/17 at 16:54; Stop 01/24/17 at 16:55; Status DC Propofol 50 ml @ As Directed STK-MED ONCE IV ; Start 01/24/17 at 17:10; Stop at 17:11; Status DC Remifentanil HCl (Ultiva) 2 mg STK-MED ONCE IV ; Start 01/24/17 at 17:10; Stop 01/24/17 at 17:11; Status DC Propofol 50 ml @ As Directed STK-MED ONCE IV ; Start 01/24/17 at 17:30; Stop at 17:31; Status DC Hydromorphone HCl (Dilaudid) 2 mg STK-MED ONCE .ROUTE ; Start 01/24/17 at 18:07 ; Stop 01/24/17 at 18:08; Status DC Fentanyl Citrate (Fentanyl 2ml Vial) 100 mcg STK-MED ONCE .ROUTE ; Start at 18:07; Stop 01/24/17 at 18:08; Status DC Morphine Sulfate 2 mg PRN Q2HR PRN IV SEVERE PAIN Last administered on 03:38; Start 01/24/17 at 22:45 Amlodipine Besylate (Norvasc) 5 mg DAILY PO Last administered on 01/26/17 08: 24; Start 01/26/17 at 09:00 Sodium Chloride 1,000 ml @ 75 mls/hr 1X ONCE IV Last administered on 13:25; Start 01/25/17 at 12:45; Stop 01/26/17 at 02:04; Status DC Active Scripts Active Reported Imodium A-D (Loperamide HCl) 2 Mg Capsule 2 Mg PO Aspirin 325 Mg Tablet 1 Tab PO DAILY Vitamin D3 (Cholecalciferol (Vitamin D3)) 1,000 Unit Tablet 2,000 Unit PO Vicodin Es 7.5-300 Mg Tablet (Hydrocodone Bit/Acetaminophen) 1 Each Tablet 1 Each PO Q6H PRN Humira (Adalimumab) 40 Mg/0.8 Ml Pen.ij.kit 1 Syr SQ Q2WKS Folbic Rf Tablet (B12/Levomefolate Calcium/B-6) 1 Each Tablet 1 Each PO Omeprazole 40 Mg Capsule. 1 Cap PO DAILY Cholestyramine Packet (Cholestyramine (With Sugar)) 4 Gm Powd.pack 4 Gm PO Gabapentin 600 Mg Tablet 600 Mg PO TID Folic Acid 1 Mg Tablet 1 Tab PO DAILY Clonidine Hcl 0.1 Mg Tablet 0.1 Mg PO BID Metformin Hcl 1,000 Mg Tablet 1,000 Mg PO BIDWMEALS Atorvastatin Calcium 40 Mg Tablet 1 Tab PO DAILY Metoprolol Succinate ( Xl ) (Metoprolol Succinate) 100 Mg Tab.er.24h 100 Mg PO BID Vitals/I & O Vital Sign - Last 24 Hours 01/25/17 01/25/17 01/25/17 01/25/17 09:00 09:55 11:10 12:04 Temp 97.9 97.7 98.9 97.9 97.7 98.9 Pulse 77 92 76 77 Resp 16 20 20 B/P (MAP) 107/70 113/64 (80) 96/64 (75) 121/70 (87) Pulse Ox 99 100 98 O2 Delivery Nasal Cannula Room Air O2 Flow Rate 1.0 1.0 01/25/17 01/25/17 01/25/17 01/25/17 12:04 12:32 13:00 14:09 Temp 98.3 98.3 98.3 98.3 Pulse 77 76 72 Resp 14 B/P (MAP) 121/70 139/86 (103) 110/60 (77) Pulse Ox 96 100 O2 Delivery Room Air Nasal Cannula Room Air O2 Flow Rate 2.0 2.0 01/25/17 01/25/17 01/25/17 01/25/17 14:54 14:56 16:08 16:08 Temp 98.3 98.3 98.3 98.3 Pulse 79 72 Resp 16 16 B/P (MAP) 110/60 (77) 153/63 (93) Pulse Ox 100 100 100 O2 Delivery Room Air Nasal Cannula Nasal Cannula Nasal Cannula O2 Flow Rate 2.0 2.0 2.0 2.0 01/25/17 01/25/17 01/25/17 01/25/17 16:39 17:00 17:55 19:00 Temp 97.9 97.9 97.9 97.9 Pulse 78 82 76 Resp 16 23 8 B/P (MAP) 153/68 (96) 147/69 (95) Pulse Ox 100 100 100 99 O2 Delivery Nasal Cannula Nasal Cannula Nasal Cannula Nasal Cannula O2 Flow Rate 2.0 2.0 2.0 2.0 01/25/17 01/25/17 01/25/17 01/25/17 19:30 20:00 20:53 21:00 Temp 97.7 97.7 Pulse 72 72 Resp 16 12 8 B/P (MAP) 143/61 (88) 137/64 (88) Pulse Ox 100 100 100 O2 Delivery Nasal Cannula Nasal Cannula Nasal Cannula Nasal Cannula O2 Flow Rate 2.0 2.0 2.0 2.0 01/25/17 01/25/17 01/25/17 01/26/17 22:00 23:00 23:59 00:00 Temp 98.1 98.1 Pulse 57 66 70 Resp 8 7 7 B/P (MAP) 103/58 (73) 112/56 (74) 114/56 (75) Pulse Ox 99 100 99 O2 Delivery Nasal Cannula Nasal Cannula Nasal Cannula Nasal Cannula O2 Flow Rate 2.0 2.0 2.0 2.0 01/26/17 01/26/17 01/26/17 01/26/17 01:00 01:00 02:00 03:00 Pulse 70 67 71 Resp 7 7 20 10 B/P (MAP) 105/57 (73) 134/58 (83) 120/61 (80) Pulse Ox 99 99 98 100 O2 Delivery Nasal Cannula Nasal Cannula Nasal Cannula Nasal Cannula O2 Flow Rate 2.0 2.0 2.0 2.0 01/26/17 01/26/17 01/26/17 01/26/17 04:00 04:00 05:00 06:00 Temp 98.3 98.3 Pulse 67 69 55 Resp 12 11 11 B/P (MAP) 124/56 (78) 99/70 (80) 121/65 (83) Pulse Ox 99 96 100 O2 Delivery Nasal Cannula Nasal Cannula Nasal Cannula Nasal Cannula O2 Flow Rate 2.0 2.0 2.0 2.0 01/26/17 01/26/17 01/26/17 01/26/17 07:00 08:17 08:24 08:24 Temp 98.3 98.3 98.3 98.3 Pulse 67 66 57 Resp 15 15 12 B/P (MAP) 119/60 (79) 134/65 134/65 Pulse Ox 100 100 O2 Delivery Nasal Cannula Nasal Cannula O2 Flow Rate 2.0 2.0 01/26/17 01/26/17 08:25 08:32 Temp 98.2 98.2 Pulse 66 66 Resp 19 B/P (MAP) 134/65 128/70 Intake and Output 01/26/17 01/26/17 01/27/17 15:00 23:00 07:00 Intake Total 250 ml Balance 250 ml PINEDA FIELDS MD Jan 26, 2017 08:53
--- NOTE | 2017-01-26 12:05 | PDOC ---
PROGRESS NOTES Subjective Subjective resting in bed back pain improved receiving PRBCs Objective Objective Vital Signs Date Time Temp Pulse Resp B/P (MAP) Pulse Ox O2 Delivery O2 Flow Rate FiO2 01/26/17 11:00 65 12 111/59 (76) 100 Nasal Cannula 2.0 01/26/17 10:13 98.3 98.3 Intake and Output 01/27/17 07:00 Intake Total 1220 ml Output Total 300 ml Balance 920 ml Intake Oral 720 ml Blood Product IV Normal Saline Flush 500 ml Output Urine Total 300 ml Physical Exam General: Alert, Cooperative MUSCULOSKELETAL: Other (SUN) Neuro: Other (strength 5/5 in BLE) Skin: Other (Dressing changed, ricky intact, drain d/c'd) Assessment Assessment Problems Medical Problems: (1) Elevated d-dimer Status: Acute (2) Elevated serum creatinine Status: Acute (3) Hypoxia Status: Acute (4) Lactic acidosis Status: Acute (5) 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 Labs Laboratory Tests Test 01/24/17 16:35 01/24/17 19:30 01/24/17 19:50 01/24/17 22:50 White Blood Count 6.3 x10^3/uL (4.0-11.0) 14.7 x10^3/uL (4.0-11.0) Hemoglobin 8.5 g/dL (13.0-17.5) 8.9 g/dL (13.0-17.5) Hematocrit 25.3 % (39.0-53.0) 26.6 % (39.0-53.0) Platelet Count 146 x10^3/uL (140-400) 177 x10^3/uL (140-400) Prothrombin Time 15.3 SEC (11.7-14.0) 15.0 SEC (11.7-14.0) Prothromb Time International Ratio 1.3 (0.8-1.1) 1.3 (0.8-1.1) Activated Partial Thromboplast Time 35 SEC (24-38) 33 SEC (24-38) Fibrinogen 281 mg/dL (200-440) Red Blood Count 2.86 x10^6/uL (4.30-5.70) Mean Corpuscular Volume 93 fL (79-100) Mean Corpuscular Hemoglobin 31 pg (25-35) Mean Corpuscular Hemoglobin Concent 34 g/dL (31-37) Red Cell Distribution Width 17.2 % (11.5-14.5) Nasal Screen MRSA (PCR) Negative (Negative) Glucose (Fingerstick) 140 mg/dL (70-99) Test 01/25/17 05:40 01/25/17 08:20 01/25/17 11:44 01/25/17 16:56 White Blood Count 16.3 x10^3/uL (4.0-11.0) Red Blood Count 2.53 x10^6/uL (4.30-5.70) Hemoglobin 7.9 g/dL (13.0-17.5) Hematocrit 23.4 % (39.0-53.0) Mean Corpuscular Volume 92 fL (79-100) Mean Corpuscular Hemoglobin 31 pg (25-35) Mean Corpuscular Hemoglobin Concent 34 g/dL (31-37) Red Cell Distribution Width 17.6 % (11.5-14.5) Platelet Count 156 x10^3/uL (140-400) Neutrophils (%) (Auto) 79 % (31-73) Lymphocytes (%) (Auto) 4 % (24-48) Monocytes (%) (Auto) 16 % (0-9) Eosinophils (%) (Auto) 0 % (0-3) Basophils (%) (Auto) 0 % (0-3) Neutrophils # (Auto) 12.9 x10^3uL (1.8-7.7) Lymphocytes # (Auto) 0.7 x10^3/uL (1.0-4.8) Monocytes # (Auto) 2.6 x10^3/uL (0.0-1.1) Eosinophils # (Auto) 0.0 x10^3/uL (0.0-0.7) Basophils # (Auto) 0.1 x10^3/uL (0.0-0.2) Sodium Level 139 mmol/L (136-145) Potassium Level 4.4 mmol/L (3.5-5.1) Chloride Level 103 mmol/L (98-107) Carbon Dioxide Level 27 mmol/L (21-32) Anion Gap 9 (6-14) Blood Urea Nitrogen 38 mg/dL (8-26) Creatinine 1.4 mg/dL (0.7-1.3) Estimated GFR (Cockcroft-Gault) 50.0 Glucose Level 150 mg/dL (70-99) Calcium Level 7.9 mg/dL (8.5-10.1) Glucose (Fingerstick) 130 mg/dL (70-99) 120 mg/dL (70-99) 120 mg/dL (70-99) Test 01/25/17 20:58 01/26/17 05:15 01/26/17 07:44 Glucose (Fingerstick) 149 mg/dL (70-99) 118 mg/dL (70-99) White Blood Count 9.8 x10^3/uL (4.0-11.0) Red Blood Count 2.03 x10^6/uL (4.30-5.70) Hemoglobin 6.6 g/dL (13.0-17.5) Hematocrit 19.2 % (39.0-53.0) Mean Corpuscular Volume 94 fL (79-100) Mean Corpuscular Hemoglobin 32 pg (25-35) Mean Corpuscular Hemoglobin Concent 34 g/dL (31-37) Red Cell Distribution Width 17.1 % (11.5-14.5) Platelet Count 115 x10^3/uL (140-400) Neutrophils (%) (Auto) 79 % (31-73) Lymphocytes (%) (Auto) 6 % (24-48) Monocytes (%) (Auto) 15 % (0-9) Eosinophils (%) (Auto) 0 % (0-3) Basophils (%) (Auto) 0 % (0-3) Neutrophils # (Auto) 7.7 x10^3uL (1.8-7.7) Lymphocytes # (Auto) 0.6 x10^3/uL (1.0-4.8) Monocytes # (Auto) 1.5 x10^3/uL (0.0-1.1) Eosinophils # (Auto) 0.0 x10^3/uL (0.0-0.7) Basophils # (Auto) 0.0 x10^3/uL (0.0-0.2) Sodium Level 137 mmol/L (136-145) Potassium Level 4.3 mmol/L (3.5-5.1) Chloride Level 103 mmol/L (98-107) Carbon Dioxide Level 29 mmol/L (21-32) Anion Gap 5 (6-14) Blood Urea Nitrogen 41 mg/dL (8-26) Creatinine 1.4 mg/dL (0.7-1.3) Estimated GFR (Cockcroft-Gault) 50.0 Glucose Level 127 mg/dL (70-99) Calcium Level 8.0 mg/dL (8.5-10.1) Laboratory Tests Test 01/25/17 16:56 01/25/17 20:58 01/26/17 05:15 01/26/17 07:44 Glucose (Fingerstick) 120 mg/dL (70-99) 149 mg/dL (70-99) 118 mg/dL (70-99) White Blood Count 9.8 x10^3/uL (4.0-11.0) Red Blood Count 2.03 x10^6/uL (4.30-5.70) Hemoglobin 6.6 g/dL (13.0-17.5) Hematocrit 19.2 % (39.0-53.0) Mean Corpuscular Volume 94 fL (79-100) Mean Corpuscular Hemoglobin 32 pg (25-35) Mean Corpuscular Hemoglobin Concent 34 g/dL (31-37) Red Cell Distribution Width 17.1 % (11.5-14.5) Platelet Count 115 x10^3/uL (140-400) Neutrophils (%) (Auto) 79 % (31-73) Lymphocytes (%) (Auto) 6 % (24-48) Monocytes (%) (Auto) 15 % (0-9) Eosinophils (%) (Auto) 0 % (0-3) Basophils (%) (Auto) 0 % (0-3) Neutrophils # (Auto) 7.7 x10^3uL (1.8-7.7) Lymphocytes # (Auto) 0.6 x10^3/uL (1.0-4.8) Monocytes # (Auto) 1.5 x10^3/uL (0.0-1.1) Eosinophils # (Auto) 0.0 x10^3/uL (0.0-0.7) Basophils # (Auto) 0.0 x10^3/uL (0.0-0.2) Sodium Level 137 mmol/L (136-145) Potassium Level 4.3 mmol/L (3.5-5.1) Chloride Level 103 mmol/L (98-107) Carbon Dioxide Level 29 mmol/L (21-32) Anion Gap 5 (6-14) Blood Urea Nitrogen 41 mg/dL (8-26) Creatinine 1.4 mg/dL (0.7-1.3) Estimated GFR (Cockcroft-Gault) 50.0 Glucose Level 127 mg/dL (70-99) Calcium Level 8.0 mg/dL (8.5-10.1) Microbiology 01/15/17 Blood Culture - Final, Complete NO GROWTH AFTER 5 DAYS Medications Current Medications Fentanyl Citrate (Fentanyl 2ml Vial) 50 mcg 1X ONCE IV Last administered on 21:52; Start 01/15/17 at 22:00; Stop 01/15/17 at 22:01; Status DC Sodium Chloride 1,000 ml @ 150 mls/hr 1X ONCE IV Last administered on 22:31; Start 01/15/17 at 22:00; Stop 01/16/17 at 04:39; Status DC Piperacillin Sod/ Tazobactam Sod 3.375 gm/Dextrose 50 ml @ 100 mls/hr 1X ONCE IV Last administered on 01/15/17 23:22; Start 01/15/17 at 23:30; Stop 01/15 at 23:59; Status DC Heparin Sodium (Porcine) (Heparin Sodium) 9,450 unit 1X ONCE IV Last administered on 01/15/17 23:30; Start 01/15/17 at 23:30; Stop 01/16/17 at 16 :41; Status DC Heparin Sodium/ Dextrose 500 ml @ 0 mls/hr CONT PRN IV SEE I/O RECORD Last administered on 01/16/17 16:26; Start 01/15/17 at 23:15; Stop 01/16/17 at 16 :41; Status DC Heparin Sodium (Porcine) (Heparin Sodium) 3,550 unit PRN Q6HRS PRN IV FOR UFH LEVEL LESS THAN 0.2; Start 01/15/17 at 23:15; Stop 01/16/17 at 16:41; Status DC Heparin Sodium (Porcine) (Heparin Sodium) 1,750 unit PRN Q6HRS PRN IV FOR UFH LEVEL 0.2 - 0.29; Start 01/15/17 at 23:15; Stop 01/16/17 at 16:41; Status DC Warfarin Sodium (Coumadin Per Pharmacy) 1 each PRN DAILY PRN MC PER PROTOCOL Last administered on 01/16/17 10:20; Start 01/15/17 at 23:15; Stop 01/16/17 at 16:39; Status DC Info (Anti-Coagulation Monitoring By Pharmacy) 1 each PRN DAILY PRN MC SEE COMMENTS Last administered on 01/16/17 10:17; Start 01/15/17 at 23:30; Stop 01/18/17 at 14:31; Status DC Ondansetron HCl (Zofran) 4 mg PRN Q8HRS PRN IV NAUSEA/VOMITING; Start at 23:15; Stop 01/16/17 at 23:14; Status DC Fentanyl Citrate (Fentanyl 2ml Vial) 50 mcg PRN Q2HR PRN IV SEVERE PAIN Last administered on 01/16/17 01:33; Start 01/15/17 at 23:15; Stop 01/16/17 at 02 :47; Status DC Piperacillin Sod/ Tazobactam Sod (Zosyn Per Pharmacy) 1 each PRN DAILY PRN MC SEE COMMENTS; Start 01/15/17 at 23:15; Stop 01/16/17 at 02:54; Status DC Sodium Chloride 1,000 ml @ 150 mls/hr 1X ONCE IV Last administered on 01:34; Start 01/15/17 at 23:45; Stop 01/16/17 at 06:24; Status DC Albuterol Sulfate (Ventolin Neb Soln) 2.5 mg PRN Q3HRS PRN NEB WHEEZING Last administered on 01/16/17 11:24; Start 01/15/17 at 23:30 Morphine Sulfate 2 mg 1X ONCE IV Last administered on 01/15/17 23:47; Start 01/16/17 at 00:00; Stop 01/16/17 at 00:01; Status DC Fentanyl Citrate (Fentanyl 2ml Vial) 75 mcg PRN Q2HR PRN IV SEVERE PAIN Last administered on 01/16/17 13:56; Start 01/16/17 at 02:45; Stop 01/16/17 at 16 :41; Status DC Piperacillin Sod/ Tazobactam Sod (Zosyn Per Pharmacy) 1 each PRN DAILY PRN MC SEE COMMENTS; Start 01/16/17 at 02:45; Stop 01/17/17 at 16:01; Status DC Piperacillin Sod/ Tazobactam Sod (Zosyn) 2.25 gm Q6HRS IVP Last administered on 01/17/17 12:01; Start 01/16/17 at 06:00; Stop 01/17/17 at 16:01; Status DC Info (Anti-Coagulation Monitoring By Pharmacy) 1 each PRN DAILY PRN MC SEE COMMENTS; Start 01/16/17 at 09:45; Status Cancel Warfarin Sodium (Coumadin) 5 mg 1X WARF ONCE PO ; Start 01/16/17 at 16:00; Stop 01/16/17 at 16:39; Status DC Lactobacillus Rhamnosus (Culturelle) 1 cap BID PO Last administered on 08:23; Start 01/16/17 at 21:00 Magnesium Sulfate/ Dextrose 50 ml @ 25 mls/hr 1X ONCE IV Last administered on 01/16/17 12:45; Start 01/16/17 at 11:30; Stop 01/16/17 at 13:29; Status DC Linezolid 300 ml @ 300 mls/hr Q12HR IV Last administered on 01/16/17 20:58; Start 01/16/17 at 12:00; Stop 01/17/17 at 08:14; Status DC Iohexol (Omnipaque 240 Mg/ml) 30 ml 1X ONCE PO ; Start 01/16/17 at 12:00; Stop 01/16/17 at 12:01; Status DC Info (Do NOT chart on this entry -- for MONITORING) 1 each PRN DAILY PRN MC SEE COMMENTS; Start 01/16/17 at 12:00; Stop 01/18/17 at 11:59; Status DC Magnesium Sulfate/ Dextrose 50 ml @ 25 mls/hr PRN DAILY PRN IV for Mag < 1.7 on am labs; Start 01/16/17 at 13:15 Metoprolol Succinate (Toprol Xl) 50 mg BID PO Last administered on 01/21/17 08 :11; Start 01/16/17 at 21:00; Stop 01/21/17 at 08:33; Status DC Sodium Chloride 1,000 ml @ 100 mls/hr Q10H IV Last administered on 01/18/17 05:45; Start 01/16/17 at 13:45; Stop 01/18/17 at 11:44; Status DC Aspirin (Charmaine Aspirin) 325 mg DAILYWBKFT PO Last administered on 01/19/17 08: 35; Start 01/17/17 at 08:00; Stop 01/19/17 at 09:49; Status DC Atorvastatin Calcium (Lipitor) 40 mg QHS PO Last administered on 01/25/17 20: 52; Start 01/16/17 at 21:00 Vitamin D (Vitamin D3) 2,000 unit DAILY PO Last administered on 01/26/17 08: 24; Start 01/17/17 at 09:00 Clonidine HCl (Catapres) 0.1 mg BID PO Last administered on 01/19/17 08:35; Start 01/16/17 at 21:00; Stop 01/19/17 at 09:52; Status DC Folic Acid (Folic Acid) 1 mg DAILY PO Last administered on 01/26/17 08:23; Start 01/17/17 at 09:00 Loperamide HCl (Imodium) 2 mg Q2H PRN PO diarrhea; Start 01/16/17 at 16:45 Metoprolol Succinate (Toprol Xl) 100 mg BID PO ; Start 01/16/17 at 21:00; Status UNV Gabapentin (Neurontin) 600 mg TID PO Last administered on 01/26/17 08:23; Start 01/16/17 at 21:00 Pantoprazole Sodium (Protonix) 40 mg DAILYAC PO Last administered on 08:22; Start 01/17/17 at 07:30 Insulin Aspart (NovoLOG) 0-9 UNITS TIDWMEALS SQ Last administered on 01/22/17 17:00; Start 01/16/17 at 17:00 Dextrose (Dextrose 50%-Water Syringe) 12.5 gm PRN Q15MIN PRN IV SEE COMMENTS; Start 01/16/17 at 16:45 Dexamethasone Sodium Phosphate (Decadron) 10 mg 1X ONCE IV Last administered on 01/16/17 17:05; Start 01/16/17 at 16:45; Stop 01/16/17 at 16:46; Status DC Dexamethasone Sodium Phosphate (Decadron) 4 mg Q6HRS IV Last administered on 05:58; Start 01/17/17 at 00:00; Stop 01/18/17 at 15:31; Status DC Morphine Sulfate 2 mg PRN Q2HR PRN IV PAIN Last administered on 01/24/17 19:52 ; Start 01/16/17 at 16:45; Stop 01/24/17 at 22:39; Status DC Oxycodone/ Acetaminophen (Percocet 10/325) 1 tab PRN Q4HRS PRN PO pain Last administered on 01/25/17 14:54; Start 01/16/17 at 16:45 Heparin Sodium (Porcine) (Heparin Sq) 5,000 unit Q8HRS SQ Last administered on 01/23/17 06:00; Start 01/16/17 at 22:00; Stop 01/23/17 at 13:16; Status DC Diazepam (Valium) 5 mg PRN Q6HRS PRN IV SEIZURES; Start 01/16/17 at 18:30; Status Cancel Diazepam (Valium) 5 mg PRN Q6HRS PRN PO TREMORS Last administered on 01/24/17 21:22; Start 01/16/17 at 18:45 Fentanyl Citrate (Fentanyl 2ml Vial) 100 mcg STK-MED ONCE .ROUTE ; Start at 10:08; Stop 01/17/17 at 10:09; Status DC Midazolam HCl (Versed) 2 mg STK-MED ONCE .ROUTE ; Start 01/17/17 at 10:08; Stop 01/17/17 at 10:09; Status DC Lidocaine/Sodium Bicarbonate (Buffered Lidocaine 1%) 20 ml 1X ONCE IJ Last administered on 01/17/17 10:51; Start 01/17/17 at 10:15; Stop 01/17/17 at 10:16 ; Status DC Midazolam HCl (Versed) 2 mg 1X ONCE IV Last administered on 01/17/17 10:52; Start 01/17/17 at 10:15; Stop 01/17/17 at 10:16; Status DC Fentanyl Citrate (Fentanyl 2ml Vial) 100 mcg 1X ONCE IV Last administered on 01/17/17 10:52; Start 01/17/17 at 10:15; Stop 01/17/17 at 10:16; Status DC Lidocaine/Sodium Bicarbonate (Buffered Lidocaine 1%) 20 ml STK-MED ONCE IJ ; Start 01/17/17 at 10:14; Stop 01/17/17 at 10:15; Status DC Piperacillin Sod/ Tazobactam Sod (Zosyn) 3.375 gm Q6HRS IVP Last administered on 01/18/17 06:00; Start 01/17/17 at 18:00; Stop 01/18/17 at 10:42; Status DC Dexamethasone Sodium Phosphate (Decadron) 4 mg Q12HR IV Last administered on 08:25; Start 01/18/17 at 21:00 Aspirin (Ecotrin) 81 mg DAILYWBKFT PO Last administered on 01/26/17 08:24; Start 01/20/17 at 08:00 Amlodipine Besylate (Norvasc) 10 mg DAILY PO Last administered on 01/24/17 09: 35; Start 01/19/17 at 10:00; Stop 01/25/17 at 12:44; Status DC Oxycodone HCl (OxyCONTIN) 30 mg Q12HR PO Last administered on 01/26/17 08:24 ; Start 01/19/17 at 11:45 Senna/Docusate Sodium (Senna Plus) 2 tab DAILY PO Last administered on 08:23; Start 01/19/17 at 12:00 Gadobutrol (Gadavist) 10 mmol 1X ONCE IV ; Start 01/19/17 at 15:45; Stop at 15:46; Status DC Sodium Chloride 1,000 ml @ 75 mls/hr [id number] IV Last administered on 02:12; Start 01/20/17 at 11:15; Stop 01/21/17 at 18:06; Status DC Polyethylene Glycol (miraLAX PACKET) 17 gm DAILY PO Last administered on 08:23; Start 01/20/17 at 15:00 Metoprolol Succinate (Toprol Xl) 50 mg DAILY PO Last administered on 08:25; Start 01/21/17 at 09:00; Stop 01/26/17 at 09:48; Status DC Bacitracin 01862 unit/Sodium Chloride 1,000 ml @ 1,000 mls/hr 1X PERIOP ONCE IRR Last administered on 01/24/17 12:59; Start 01/24/17 at 06:00; Stop at 06:59; Status DC Ondansetron HCl (Zofran) 4 mg PRN Q6HRS PRN IV NAUSEA/VOMITING; Start 01/24/17 at 07:00; Stop 01/25/17 at 06:59; Status DC Fentanyl Citrate (Fentanyl 2ml Vial) 25 mcg PRN Q5MIN PRN IV MILD PAIN; Start 01/24/17 at 07:00; Stop 01/24/17 at 22:48; Status DC Fentanyl Citrate (Fentanyl 2ml Vial) 50 mcg PRN Q5MIN PRN IV MODERATE PAIN Last administered on 01/24/17 19:01; Start 01/24/17 at 07:00; Stop 01/24/17 at 22:48; Status DC Morphine Sulfate 1 mg PRN Q10MIN PRN IV SEVERE PAIN; Start 01/24/17 at 07:00; Stop 01/24/17 at 22:48; Status DC Ringer's Solution 1,000 ml @ 30 mls/hr Q24H IV Last administered on 01/24/17 11:40; Start 01/24/17 at 07:00; Stop 01/24/17 at 18:59; Status DC Lidocaine HCl (Xylocaine-Mpf 1% Vial) 2 ml PRN 1X PRN ID IV START; Start at 07:00; Stop 01/25/17 at 06:59; Status DC Hydromorphone HCl (Dilaudid) 0.5 mg PRN Q10MIN PRN IV SEV PAIN, Second choice; Start 01/24/17 at 07:00; Stop 01/24/17 at 22:48; Status DC Prochlorperazine Edisylate (Compazine) 5 mg PACU PRN PRN IV NAUSEA, MRX1; Start 01/24/17 at 07:00; Stop 01/24/17 at 22:48; Status DC Cefazolin Sodium/ Dextrose 50 ml @ 100 mls/hr 1X PREOP PRN IV PRE-OP Last administered on 01/24/17 12:25; Start 01/23/17 at 13:15; Stop 01/24/17 at 18:00 ; Status DC Gelatin (Gelfoam Size 100) 1 each STK-MED ONCE .ROUTE Last administered on 12:59; Start 01/24/17 at 07:30; Stop 01/24/17 at 07:31; Status DC Bupivacaine HCl/ Epinephrine Bitart (Sensorcain-Mpf Epi 0.5%-[id number]) 30 ml STK -MED ONCE .ROUTE Last administered on 01/24/17 12:59; Start 01/24/17 at 07:31 ; Stop 01/24/17 at 07:32; Status DC Ketorolac Tromethamine (Toradol For Or Only) 60 mg STK-MED ONCE .ROUTE Last administered on 01/24/17 12:59; Start 01/24/17 at 07:31; Stop 01/24/17 at 07:32 ; Status DC Thrombin 20,000 unit STK-MED ONCE TP Last administered on 01/24/17 12:59; Start 01/24/17 at 07:31; Stop 01/24/17 at 07:32; Status DC Midazolam HCl (Versed) 2 mg STK-MED ONCE .ROUTE ; Start 01/24/17 at 11:05; Stop 01/24/17 at 11:06; Status DC Fentanyl Citrate (Fentanyl 5ml Vial) 250 mcg STK-MED ONCE .ROUTE ; Start at 11:05; Stop 01/24/17 at 11:06; Status DC Rocuronium [place] (Zemuron) 50 mg STK-MED ONCE .ROUTE ; Start 01/24/17 at 11:05 ; Stop 01/24/17 at 11:06; Status DC Remifentanil HCl (Ultiva) 2 mg STK-MED ONCE IV ; Start 01/24/17 at 11:05; Stop 01/24/17 at 11:06; Status DC Propofol 50 ml @ As Directed STK-MED ONCE IV ; Start 01/24/17 at 11:09; Stop at 11:10; Status DC Multi-Ingred Cream/Lotion/Oil/ Oint (Artificial Tears Eye Oint) 7 jose a STK-MED ONCE .ROUTE ; Start 01/24/17 at 11:09; Stop 01/24/17 at 11:10; Status DC Propofol 0 ml @ As Directed STK-MED ONCE IV ; Start 01/24/17 at 11:10; Stop 01/24/17 at 11:11; Status DC Lidocaine HCl (Lidocaine Pf 2% Vial) 5 ml STK-MED ONCE .ROUTE ; Start 01/24/17 at 11:10; Stop 01/24/17 at 11:11; Status DC Dexamethasone Sodium Phosphate (Decadron) 20 mg STK-MED ONCE .ROUTE ; Start 01/24/17 at 11:10; Stop 01/24/17 at 11:11; Status DC Ondansetron HCl (Zofran) 4 mg STK-MED ONCE .ROUTE ; Start 01/24/17 at 11:10; Stop 01/24/17 at 11:11; Status DC Desflurane (Suprane) 90 ml STK-MED ONCE IH ; Start 01/24/17 at 11:10; Stop 01/24 at 11:11; Status DC Sodium Chloride (Sodium Chloride) 50 ml STK-MED ONCE IJ ; Start 01/24/17 at 11: 11; Stop 01/24/17 at 11:12; Status DC Phenylephrine HCl 1 mg STK-MED ONCE IV ; Start 01/24/17 at 12:02; Stop 01/24/17 at 12:03; Status DC Glycopyrrolate (Robinul) 1 mg STK-MED ONCE .ROUTE ; Start 01/24/17 at 12:28; Stop 01/24/17 at 12:29; Status DC Neostigmine Methylsulfate 5 mg STK-MED ONCE .ROUTE ; Start 01/24/17 at 12:28; Stop 01/24/17 at 12:29; Status DC Ephedrine Sulfate (Akovaz) 50 mg STK-MED ONCE .ROUTE ; Start 01/24/17 at 14:05; Stop 01/24/17 at 14:06; Status DC Albumin Human 500 ml @ As Directed STK-MED ONCE IV ; Start 01/24/17 at 14:07; Stop 01/24/17 at 14:08; Status DC Remifentanil HCl (Ultiva) 2 mg STK-MED ONCE IV ; Start 01/24/17 at 14:55; Stop 01/24/17 at 14:56; Status DC Propofol 50 ml @ As Directed STK-MED ONCE IV ; Start 01/24/17 at 14:57; Stop at 14:58; Status DC Propofol 20 ml @ As Directed STK-MED ONCE IV ; Start 01/24/17 at 14:57; Stop at 14:58; Status DC Propofol 20 ml @ As Directed STK-MED ONCE IV ; Start 01/24/17 at 15:09; Stop at 15:10; Status DC Propofol 50 ml @ As Directed STK-MED ONCE IV ; Start 01/24/17 at 15:50; Stop at 15:51; Status DC Cefazolin Sodium/ Dextrose 50 ml @ As Directed STK-MED ONCE IV ; Start 01/24/17 at 16:20; Stop 01/24/17 at 16:21; Status DC Phenylephrine HCl 1 mg STK-MED ONCE IV ; Start 01/24/17 at 16:54; Stop 01/24/17 at 16:55; Status DC Propofol 50 ml @ As Directed STK-MED ONCE IV ; Start 01/24/17 at 17:10; Stop at 17:11; Status DC Remifentanil HCl (Ultiva) 2 mg STK-MED ONCE IV ; Start 01/24/17 at 17:10; Stop 01/24/17 at 17:11; Status DC Propofol 50 ml @ As Directed STK-MED ONCE IV ; Start 01/24/17 at 17:30; Stop at 17:31; Status DC Hydromorphone HCl (Dilaudid) 2 mg STK-MED ONCE .ROUTE ; Start 01/24/17 at 18:07 ; Stop 01/24/17 at 18:08; Status DC Fentanyl Citrate (Fentanyl 2ml Vial) 100 mcg STK-MED ONCE .ROUTE ; Start at 18:07; Stop 01/24/17 at 18:08; Status DC Morphine Sulfate 2 mg PRN Q2HR PRN IV SEVERE PAIN Last administered on t 03:38; Start 01/24/17 at 22:45 Amlodipine Besylate (Norvasc) 5 mg DAILY PO Last administered on 01/26/17 08: 24; Start 01/26/17 at 09:00 Sodium Chloride 1,000 ml @ 75 mls/hr 1X ONCE IV Last administered on 13:25; Start 01/25/17 at 12:45; Stop 01/26/17 at 02:04; Status DC Metoprolol Succinate (Toprol Xl) 25 mg BID PO ; Start 01/26/17 at 21:00 Active Scripts Active Reported Imodium A-D (Loperamide HCl) 2 Mg Capsule 2 Mg PO Aspirin 325 Mg Tablet 1 Tab PO DAILY Vitamin D3 (Cholecalciferol (Vitamin D3)) 1,000 Unit Tablet 2,000 Unit PO Vicodin Es 7.5-300 Mg Tablet (Hydrocodone Bit/Acetaminophen) 1 Each Tablet 1 Each PO Q6H PRN Humira (Adalimumab) 40 Mg/0.8 Ml Pen.ij.kit 1 Syr SQ Q2WKS Folbic Rf Tablet (B12/Levomefolate Calcium/B-6) 1 Each Tablet 1 Each PO Omeprazole 40 Mg Capsule.dr 1 Cap PO DAILY Cholestyramine Packet (Cholestyramine (With Sugar)) 4 Gm Powd.pack 4 Gm PO Gabapentin 600 Mg Tablet 600 Mg PO TID Folic Acid 1 Mg Tablet 1 Tab PO DAILY Clonidine Hcl 0.1 Mg Tablet 0.1 Mg PO BID Metformin Hcl 1,000 Mg Tablet 1,000 Mg PO BIDWMEALS Atorvastatin Calcium 40 Mg Tablet 1 Tab PO DAILY Metoprolol Succinate ( Xl ) (Metoprolol Succinate) 100 Mg Tab.er.24h 100 Mg PO BID Vitals/I & O Vital Sign - Last 24 Hours 01/25/17 01/25/17 01/25/17 01/25/17 12:04 12:04 12:32 13:00 Temp 98.9 98.3 98.9 98.3 Pulse 77 77 76 Resp 20 14 B/P (MAP) 121/70 (87) 121/70 139/86 (103) Pulse Ox 98 96 O2 Delivery Room Air Room Air Nasal Cannula O2 Flow Rate 2.0 01/25/17 01/25/17 01/25/17 01/25/17 14:09 14:54 14:56 16:08 Temp 98.3 98.3 98.3 98.3 98.3 98.3 Pulse 72 79 72 Resp 16 16 B/P (MAP) 110/60 (77) 110/60 (77) 153/63 (93) Pulse Ox 100 100 100 100 O2 Delivery Room Air Room Air Nasal Cannula Nasal Cannula O2 Flow Rate 2.0 2.0 2.0 2.0 01/25/17 01/25/17 01/25/17 01/25/17 16:08 16:39 17:00 17:55 Temp 97.9 97.9 97.9 97.9 Pulse 78 82 Resp 16 23 B/P (MAP) 153/68 (96) 147/69 (95) Pulse Ox 100 100 100 O2 Delivery Nasal Cannula Nasal Cannula Nasal Cannula Nasal Cannula O2 Flow Rate 2.0 2.0 2.0 2.0 01/25/17 01/25/17 01/25/17 01/25/17 19:00 19:30 20:00 20:53 Temp 97.7 97.7 Pulse 76 72 Resp 8 16 12 B/P (MAP) 143/61 (88) Pulse Ox 99 100 100 O2 Delivery Nasal Cannula Nasal Cannula Nasal Cannula Nasal Cannula O2 Flow Rate 2.0 2.0 2.0 2.0 01/25/17 01/25/17 01/25/17 01/25/17 21:00 22:00 23:00 23:59 Pulse 72 57 66 Resp 8 8 7 B/P (MAP) 137/64 (88) 103/58 (73) 112/56 (74) Pulse Ox 100 99 100 O2 Delivery Nasal Cannula Nasal Cannula Nasal Cannula Nasal Cannula O2 Flow Rate 2.0 2.0 2.0 2.0 01/26/17 01/26/17 01/26/17 01/26/17 00:00 01:00 01:00 02:00 Temp 98.1 98.1 Pulse 70 70 67 Resp 7 7 7 20 B/P (MAP) 114/56 (75) 105/57 (73) 134/58 (83) Pulse Ox 99 99 99 98 O2 Delivery Nasal Cannula Nasal Cannula Nasal Cannula Nasal Cannula O2 Flow Rate 2.0 2.0 2.0 2.0 01/26/17 01/26/17 01/26/17 01/26/17 03:00 04:00 04:00 05:00 Temp 98.3 98.3 Pulse 71 67 69 Resp 10 12 11 B/P (MAP) 120/61 (80) 124/56 (78) 99/70 (80) Pulse Ox 100 99 96 O2 Delivery Nasal Cannula Nasal Cannula Nasal Cannula Nasal Cannula O2 Flow Rate 2.0 2.0 2.0 2.0 01/26/17 01/26/17 01/26/17 01/26/17 06:00 07:00 08:00 08:00 Temp 98.3 98.3 Pulse 55 67 60 Resp 11 15 10 B/P (MAP) 121/65 (83) 119/60 (79) 128/70 (89) Pulse Ox 100 100 100 O2 Delivery Nasal Cannula Nasal Cannula Nasal Cannula Nasal Cannula O2 Flow Rate 2.0 2.0 2.0 2.0 01/26/17 01/26/17 01/26/17 01/26/17 08:17 08:24 08:24 08:25 Temp 98.3 98.3 Pulse 66 57 66 Resp 15 12 B/P (MAP) 134/65 134/65 134/65 Pulse Ox 100 O2 Delivery Nasal Cannula O2 Flow Rate 2.0 01/26/17 01/26/17 01/26/17 01/26/17 08:32 09:00 09:15 10:00 Temp 98.2 98.2 98.4 98.2 98.2 98.4 Pulse 66 62 55 53 Resp 19 20 13 12 B/P (MAP) 128/70 127/59 (81) 127/59 113/59 (77) Pulse Ox 100 100 O2 Delivery Nasal Cannula Nasal Cannula O2 Flow Rate 2.0 2.0 01/26/17 01/26/17 10:13 11:00 Temp 98.3 98.3 Pulse 55 65 Resp 14 12 B/P (MAP) 113/59 111/59 (76) Pulse Ox 100 O2 Delivery Nasal Cannula O2 Flow Rate 2.0 Intake and Output 01/26/17 01/26/17 01/27/17 15:00 23:00 07:00 Intake Total 1220 ml Output Total 300 ml Balance 920 ml NADINE ARCE MD Jan 26, 2017 12:05
--- NOTE | 2017-01-26 12:11 | PDOC ---
PROGRESS NOTES Chief Complaint Chief Complaint L3 spinal mass: highly suspicious for malignancy or L3 Chance fracture?. Back pain Syncope Renal mass vs complex cyst ANDREINA on CKD DM2 Anemia Dyspnea PAF CAD: hx mult stents Crohn's Alcoholism Azotemia History of Present Illness History of Present Illness Pt seen at bedside in ICU. He is AOCx3 although a little groggy secondary to pain medication administration. He had an L1-L5 vertebral fusion and hematoma evacuation. Initial worry for malignant lesion of vertebra appears to be negative based on intraoperative findings. Pt has no c/o ongoing pain during our conversation. Pt is being followed by Nepho re: renal insufficiency, ID re: positive lactic acid, Cardio re: CHF, Heme and Onc re: spinal cancer, Radiation Onc re: Spinal cancer, Neurosurg re: L3 malignant lesion. Ordered transfusion for Hgb level of 6.6. For now, continue to monitor in ICU. Vitals Vitals Vital Signs Date Time Temp Pulse Resp B/P (MAP) Pulse Ox O2 Delivery O2 Flow Rate FiO2 01/26/17 11:00 65 12 111/59 (76) 100 Nasal Cannula 2.0 01/26/17 10:13 98.3 98.3 Physical Exam General: Alert, Cooperative Heart: Normal S1, Normal S2 Lungs: Clear Abdomen: Normal bowel sounds, Soft, No tenderness Extremities: No clubbing, No edema Skin: Other (Dressing changed, ricky intact, drain d/c'd) Labs LABS Laboratory Tests Test 01/25/17 16:56 01/25/17 20:58 01/26/17 05:15 01/26/17 07:44 Glucose (Fingerstick) 120 mg/dL (70-99) 149 mg/dL (70-99) 118 mg/dL (70-99) White Blood Count 9.8 x10^3/uL (4.0-11.0) Red Blood Count 2.03 x10^6/uL (4.30-5.70) Hemoglobin 6.6 g/dL (13.0-17.5) Hematocrit 19.2 % (39.0-53.0) Mean Corpuscular Volume 94 fL (79-100) Mean Corpuscular Hemoglobin 32 pg (25-35) Mean Corpuscular Hemoglobin Concent 34 g/dL (31-37) Red Cell Distribution Width 17.1 % (11.5-14.5) Platelet Count 115 x10^3/uL (140-400) Neutrophils (%) (Auto) 79 % (31-73) Lymphocytes (%) (Auto) 6 % (24-48) Monocytes (%) (Auto) 15 % (0-9) Eosinophils (%) (Auto) 0 % (0-3) Basophils (%) (Auto) 0 % (0-3) Neutrophils # (Auto) 7.7 x10^3uL (1.8-7.7) Lymphocytes # (Auto) 0.6 x10^3/uL (1.0-4.8) Monocytes # (Auto) 1.5 x10^3/uL (0.0-1.1) Eosinophils # (Auto) 0.0 x10^3/uL (0.0-0.7) Basophils # (Auto) 0.0 x10^3/uL (0.0-0.2) Sodium Level 137 mmol/L (136-145) Potassium Level 4.3 mmol/L (3.5-5.1) Chloride Level 103 mmol/L (98-107) Carbon Dioxide Level 29 mmol/L (21-32) Anion Gap 5 (6-14) Blood Urea Nitrogen 41 mg/dL (8-26) Creatinine 1.4 mg/dL (0.7-1.3) Estimated GFR (Cockcroft-Gault) 50.0 Glucose Level 127 mg/dL (70-99) Calcium Level 8.0 mg/dL (8.5-10.1) Review of Systems Review of Systems AOCx3, in NAD. Lungs clear b/l. Heart RRR no M. 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 Back pain Syncope Renal mass vs complex cyst ANDREINA on CKD DM2 Anemia Dyspnea PAF CAD: hx mult stents Crohn's Alcoholism Azotemia PLAN: Continue pain mgmt Ordered transfusion for Hgb of 6.6 Appreciate subspecialty input Recheck labs PT/OT Continue ICU monitoring Problems: Comment Review of Relevant I have reviewed the following items bernadine (where applicable) has been applied. Labs Laboratory Tests Test 01/24/17 16:35 01/24/17 19:30 01/24/17 19:50 01/24/17 22:50 White Blood Count 6.3 x10^3/uL (4.0-11.0) 14.7 x10^3/uL (4.0-11.0) Hemoglobin 8.5 g/dL (13.0-17.5) 8.9 g/dL (13.0-17.5) Hematocrit 25.3 % (39.0-53.0) 26.6 % (39.0-53.0) Platelet Count 146 x10^3/uL (140-400) 177 x10^3/uL (140-400) Prothrombin Time 15.3 SEC (11.7-14.0) 15.0 SEC (11.7-14.0) Prothromb Time International Ratio 1.3 (0.8-1.1) 1.3 (0.8-1.1) Activated Partial Thromboplast Time 35 SEC (24-38) 33 SEC (24-38) Fibrinogen 281 mg/dL (200-440) Red Blood Count 2.86 x10^6/uL (4.30-5.70) Mean Corpuscular Volume 93 fL (79-100) Mean Corpuscular Hemoglobin 31 pg (25-35) Mean Corpuscular Hemoglobin Concent 34 g/dL (31-37) Red Cell Distribution Width 17.2 % (11.5-14.5) Nasal Screen MRSA (PCR) Negative (Negative) Glucose (Fingerstick) 140 mg/dL (70-99) Test 01/25/17 05:40 01/25/17 08:20 01/25/17 11:44 01/25/17 16:56 White Blood Count 16.3 x10^3/uL (4.0-11.0) Red Blood Count 2.53 x10^6/uL (4.30-5.70) Hemoglobin 7.9 g/dL (13.0-17.5) Hematocrit 23.4 % (39.0-53.0) Mean Corpuscular Volume 92 fL (79-100) Mean Corpuscular Hemoglobin 31 pg (25-35) Mean Corpuscular Hemoglobin Concent 34 g/dL (31-37) Red Cell Distribution Width 17.6 % (11.5-14.5) Platelet Count 156 x10^3/uL (140-400) Neutrophils (%) (Auto) 79 % (31-73) Lymphocytes (%) (Auto) 4 % (24-48) Monocytes (%) (Auto) 16 % (0-9) Eosinophils (%) (Auto) 0 % (0-3) Basophils (%) (Auto) 0 % (0-3) Neutrophils # (Auto) 12.9 x10^3uL (1.8-7.7) Lymphocytes # (Auto) 0.7 x10^3/uL (1.0-4.8) Monocytes # (Auto) 2.6 x10^3/uL (0.0-1.1) Eosinophils # (Auto) 0.0 x10^3/uL (0.0-0.7) Basophils # (Auto) 0.1 x10^3/uL (0.0-0.2) Sodium Level 139 mmol/L (136-145) Potassium Level 4.4 mmol/L (3.5-5.1) Chloride Level 103 mmol/L (98-107) Carbon Dioxide Level 27 mmol/L (21-32) Anion Gap 9 (6-14) Blood Urea Nitrogen 38 mg/dL (8-26) Creatinine 1.4 mg/dL (0.7-1.3) Estimated GFR (Cockcroft-Gault) 50.0 Glucose Level 150 mg/dL (70-99) Calcium Level 7.9 mg/dL (8.5-10.1) Glucose (Fingerstick) 130 mg/dL (70-99) 120 mg/dL (70-99) 120 mg/dL (70-99) Test 01/25/17 20:58 01/26/17 05:15 01/26/17 07:44 Glucose (Fingerstick) 149 mg/dL (70-99) 118 mg/dL (70-99) White Blood Count 9.8 x10^3/uL (4.0-11.0) Red Blood Count 2.03 x10^6/uL (4.30-5.70) Hemoglobin 6.6 g/dL (13.0-17.5) Hematocrit 19.2 % (39.0-53.0) Mean Corpuscular Volume 94 fL (79-100) Mean Corpuscular Hemoglobin 32 pg (25-35) Mean Corpuscular Hemoglobin Concent 34 g/dL (31-37) Red Cell Distribution Width 17.1 % (11.5-14.5) Platelet Count 115 x10^3/uL (140-400) Neutrophils (%) (Auto) 79 % (31-73) Lymphocytes (%) (Auto) 6 % (24-48) Monocytes (%) (Auto) 15 % (0-9) Eosinophils (%) (Auto) 0 % (0-3) Basophils (%) (Auto) 0 % (0-3) Neutrophils # (Auto) 7.7 x10^3uL (1.8-7.7) Lymphocytes # (Auto) 0.6 x10^3/uL (1.0-4.8) Monocytes # (Auto) 1.5 x10^3/uL (0.0-1.1) Eosinophils # (Auto) 0.0 x10^3/uL (0.0-0.7) Basophils # (Auto) 0.0 x10^3/uL (0.0-0.2) Sodium Level 137 mmol/L (136-145) Potassium Level 4.3 mmol/L (3.5-5.1) Chloride Level 103 mmol/L (98-107) Carbon Dioxide Level 29 mmol/L (21-32) Anion Gap 5 (6-14) Blood Urea Nitrogen 41 mg/dL (8-26) Creatinine 1.4 mg/dL (0.7-1.3) Estimated GFR (Cockcroft-Gault) 50.0 Glucose Level 127 mg/dL (70-99) Calcium Level 8.0 mg/dL (8.5-10.1) Laboratory Tests Test 01/25/17 16:56 01/25/17 20:58 01/26/17 05:15 01/26/17 07:44 Glucose (Fingerstick) 120 mg/dL (70-99) 149 mg/dL (70-99) 118 mg/dL (70-99) White Blood Count 9.8 x10^3/uL (4.0-11.0) Red Blood Count 2.03 x10^6/uL (4.30-5.70) Hemoglobin 6.6 g/dL (13.0-17.5) Hematocrit 19.2 % (39.0-53.0) Mean Corpuscular Volume 94 fL (79-100) Mean Corpuscular Hemoglobin 32 pg (25-35) Mean Corpuscular Hemoglobin Concent 34 g/dL (31-37) Red Cell Distribution Width 17.1 % (11.5-14.5) Platelet Count 115 x10^3/uL (140-400) Neutrophils (%) (Auto) 79 % (31-73) Lymphocytes (%) (Auto) 6 % (24-48) Monocytes (%) (Auto) 15 % (0-9) Eosinophils (%) (Auto) 0 % (0-3) Basophils (%) (Auto) 0 % (0-3) Neutrophils # (Auto) 7.7 x10^3uL (1.8-7.7) Lymphocytes # (Auto) 0.6 x10^3/uL (1.0-4.8) Monocytes # (Auto) 1.5 x10^3/uL (0.0-1.1) Eosinophils # (Auto) 0.0 x10^3/uL (0.0-0.7) Basophils # (Auto) 0.0 x10^3/uL (0.0-0.2) Sodium Level 137 mmol/L (136-145) Potassium Level 4.3 mmol/L (3.5-5.1) Chloride Level 103 mmol/L (98-107) Carbon Dioxide Level 29 mmol/L (21-32) Anion Gap 5 (6-14) Blood Urea Nitrogen 41 mg/dL (8-26) Creatinine 1.4 mg/dL (0.7-1.3) Estimated GFR (Cockcroft-Gault) 50.0 Glucose Level 127 mg/dL (70-99) Calcium Level 8.0 mg/dL (8.5-10.1) Microbiology 01/15/17 Blood Culture - Final, Complete NO GROWTH AFTER 5 DAYS Medications Current Medications Fentanyl Citrate (Fentanyl 2ml Vial) 50 mcg 1X ONCE IV Last administered on t 21:52; Start 01/15/17 at 22:00; Stop 01/15/17 at 22:01; Status DC Sodium Chloride 1,000 ml @ 150 mls/hr 1X ONCE IV Last administered on 22:31; Start 01/15/17 at 22:00; Stop 01/16/17 at 04:39; Status DC Piperacillin Sod/ Tazobactam Sod 3.375 gm/Dextrose 50 ml @ 100 mls/hr 1X ONCE IV Last administered on 01/15/17 23:22; Start 01/15/17 at 23:30; Stop 01/15 at 23:59; Status DC Heparin Sodium (Porcine) (Heparin Sodium) 9,450 unit 1X ONCE IV Last administered on 01/15/17 23:30; Start 01/15/17 at 23:30; Stop 01/16/17 at 16 :41; Status DC Heparin Sodium/ Dextrose 500 ml @ 0 mls/hr CONT PRN IV SEE I/O RECORD Last administered on 01/16/17 16:26; Start 01/15/17 at 23:15; Stop 01/16/17 at 16 :41; Status DC Heparin Sodium (Porcine) (Heparin Sodium) 3,550 unit PRN Q6HRS PRN IV FOR UFH LEVEL LESS THAN 0.2; Start 01/15/17 at 23:15; Stop 01/16/17 at 16:41; Status DC Heparin Sodium (Porcine) (Heparin Sodium) 1,750 unit PRN Q6HRS PRN IV FOR UFH LEVEL 0.2 - 0.29; Start 01/15/17 at 23:15; Stop 01/16/17 at 16:41; Status DC Warfarin Sodium (Coumadin Per Pharmacy) 1 each PRN DAILY PRN MC PER PROTOCOL Last administered on 01/16/17 10:20; Start 01/15/17 at 23:15; Stop 01/16/17 at 16:39; Status DC Info (Anti-Coagulation Monitoring By Pharmacy) 1 each PRN DAILY PRN MC SEE COMMENTS Last administered on 01/16/17 10:17; Start 01/15/17 at 23:30; Stop 01/18/17 at 14:31; Status DC Ondansetron HCl (Zofran) 4 mg PRN Q8HRS PRN IV NAUSEA/VOMITING; Start at 23:15; Stop 01/16/17 at 23:14; Status DC Fentanyl Citrate (Fentanyl 2ml Vial) 50 mcg PRN Q2HR PRN IV SEVERE PAIN Last administered on 01/16/17 01:33; Start 01/15/17 at 23:15; Stop 01/16/17 at 02 :47; Status DC Piperacillin Sod/ Tazobactam Sod (Zosyn Per Pharmacy) 1 each PRN DAILY PRN MC SEE COMMENTS; Start 01/15/17 at 23:15; Stop 01/16/17 at 02:54; Status DC Sodium Chloride 1,000 ml @ 150 mls/hr 1X ONCE IV Last administered on 01:34; Start 01/15/17 at 23:45; Stop 01/16/17 at 06:24; Status DC Albuterol Sulfate (Ventolin Neb Soln) 2.5 mg PRN Q3HRS PRN NEB WHEEZING Last administered on 01/16/17 11:24; Start 01/15/17 at 23:30 Morphine Sulfate 2 mg 1X ONCE IV Last administered on 01/15/17 23:47; Start 01/16/17 at 00:00; Stop 01/16/17 at 00:01; Status DC Fentanyl Citrate (Fentanyl 2ml Vial) 75 mcg PRN Q2HR PRN IV SEVERE PAIN Last administered on 01/16/17 13:56; Start 01/16/17 at 02:45; Stop 01/16/17 at 16 :41; Status DC Piperacillin Sod/ Tazobactam Sod (Zosyn Per Pharmacy) 1 each PRN DAILY PRN MC SEE COMMENTS; Start 01/16/17 at 02:45; Stop 01/17/17 at 16:01; Status DC Piperacillin Sod/ Tazobactam Sod (Zosyn) 2.25 gm Q6HRS IVP Last administered on 01/17/17 12:01; Start 01/16/17 at 06:00; Stop 01/17/17 at 16:01; Status DC Info (Anti-Coagulation Monitoring By Pharmacy) 1 each PRN DAILY PRN MC SEE COMMENTS; Start 01/16/17 at 09:45; Status Cancel Warfarin Sodium (Coumadin) 5 mg 1X WARF ONCE PO ; Start 01/16/17 at 16:00; Stop 01/16/17 at 16:39; Status DC Lactobacillus Rhamnosus (Culturelle) 1 cap BID PO Last administered on 08:23; Start 01/16/17 at 21:00 Magnesium Sulfate/ Dextrose 50 ml @ 25 mls/hr 1X ONCE IV Last administered on 01/16/17 12:45; Start 01/16/17 at 11:30; Stop 01/16/17 at 13:29; Status DC Linezolid 300 ml @ 300 mls/hr Q12HR IV Last administered on 01/16/17 20:58; Start 01/16/17 at 12:00; Stop 01/17/17 at 08:14; Status DC Iohexol (Omnipaque 240 Mg/ml) 30 ml 1X ONCE PO ; Start 01/16/17 at 12:00; Stop 01/16/17 at 12:01; Status DC Info (Do NOT chart on this entry -- for MONITORING) 1 each PRN DAILY PRN MC SEE COMMENTS; Start 01/16/17 at 12:00; Stop 01/18/17 at 11:59; Status DC Magnesium Sulfate/ Dextrose 50 ml @ 25 mls/hr PRN DAILY PRN IV for Mag < 1.7 on am labs; Start 01/16/17 at 13:15 Metoprolol Succinate (Toprol Xl) 50 mg BID PO Last administered on 01/21/17 08 :11; Start 01/16/17 at 21:00; Stop 01/21/17 at 08:33; Status DC Sodium Chloride 1,000 ml @ 100 mls/hr Q10H IV Last administered on 01/18/17 05:45; Start 01/16/17 at 13:45; Stop 01/18/17 at 11:44; Status DC Aspirin (Charmaine Aspirin) 325 mg DAILYWBKFT PO Last administered on 01/19/17 08: 35; Start 01/17/17 at 08:00; Stop 01/19/17 at 09:49; Status DC Atorvastatin Calcium (Lipitor) 40 mg QHS PO Last administered on 01/25/17 20: 52; Start 01/16/17 at 21:00 Vitamin D (Vitamin D3) 2,000 unit DAILY PO Last administered on 01/26/17 08: 24; Start 01/17/17 at 09:00 Clonidine HCl (Catapres) 0.1 mg BID PO Last administered on 01/19/17 08:35; Start 01/16/17 at 21:00; Stop 01/19/17 at 09:52; Status DC Folic Acid (Folic Acid) 1 mg DAILY PO Last administered on 01/26/17 08:23; Start 01/17/17 at 09:00 Loperamide HCl (Imodium) 2 mg Q2H PRN PO diarrhea; Start 01/16/17 at 16:45 Metoprolol Succinate (Toprol Xl) 100 mg BID PO ; Start 01/16/17 at 21:00; Status UNV Gabapentin (Neurontin) 600 mg TID PO Last administered on 01/26/17 08:23; Start 01/16/17 at 21:00 Pantoprazole Sodium (Protonix) 40 mg DAILYAC PO Last administered on 08:22; Start 01/17/17 at 07:30 Insulin Aspart (NovoLOG) 0-9 UNITS TIDWMEALS SQ Last administered on 01/22/17 17:00; Start 01/16/17 at 17:00 Dextrose (Dextrose 50%-Water Syringe) 12.5 gm PRN Q15MIN PRN IV SEE COMMENTS; Start 01/16/17 at 16:45 Dexamethasone Sodium Phosphate (Decadron) 10 mg 1X ONCE IV Last administered on 01/16/17 17:05; Start 01/16/17 at 16:45; Stop 01/16/17 at 16:46; Status DC Dexamethasone Sodium Phosphate (Decadron) 4 mg Q6HRS IV Last administered on 05:58; Start 01/17/17 at 00:00; Stop 01/18/17 at 15:31; Status DC Morphine Sulfate 2 mg PRN Q2HR PRN IV PAIN Last administered on 01/24/17 19:52 ; Start 01/16/17 at 16:45; Stop 01/24/17 at 22:39; Status DC Oxycodone/ Acetaminophen (Percocet 10/325) 1 tab PRN Q4HRS PRN PO pain Last administered on 01/25/17 14:54; Start 01/16/17 at 16:45 Heparin Sodium (Porcine) (Heparin Sq) 5,000 unit Q8HRS SQ Last administered on 01/23/17 06:00; Start 01/16/17 at 22:00; Stop 01/23/17 at 13:16; Status DC Diazepam (Valium) 5 mg PRN Q6HRS PRN IV SEIZURES; Start 01/16/17 at 18:30; Status Cancel Diazepam (Valium) 5 mg PRN Q6HRS PRN PO TREMORS Last administered on 01/24/17 21:22; Start 01/16/17 at 18:45 Fentanyl Citrate (Fentanyl 2ml Vial) 100 mcg STK-MED ONCE .ROUTE ; Start at 10:08; Stop 01/17/17 at 10:09; Status DC Midazolam HCl (Versed) 2 mg STK-MED ONCE .ROUTE ; Start 01/17/17 at 10:08; Stop 01/17/17 at 10:09; Status DC Lidocaine/Sodium Bicarbonate (Buffered Lidocaine 1%) 20 ml 1X ONCE IJ Last administered on 01/17/17 10:51; Start 01/17/17 at 10:15; Stop 01/17/17 at 10:16 ; Status DC Midazolam HCl (Versed) 2 mg 1X ONCE IV Last administered on 01/17/17 10:52; Start 01/17/17 at 10:15; Stop 01/17/17 at 10:16; Status DC Fentanyl Citrate (Fentanyl 2ml Vial) 100 mcg 1X ONCE IV Last administered on 01/17/17 10:52; Start 01/17/17 at 10:15; Stop 01/17/17 at 10:16; Status DC Lidocaine/Sodium Bicarbonate (Buffered Lidocaine 1%) 20 ml STK-MED ONCE IJ ; Start 01/17/17 at 10:14; Stop 01/17/17 at 10:15; Status DC Piperacillin Sod/ Tazobactam Sod (Zosyn) 3.375 gm Q6HRS IVP Last administered on 01/18/17 06:00; Start 01/17/17 at 18:00; Stop 01/18/17 at 10:42; Status DC Dexamethasone Sodium Phosphate (Decadron) 4 mg Q12HR IV Last administered on 08:25; Start 01/18/17 at 21:00 Aspirin (Ecotrin) 81 mg DAILYWBKFT PO Last administered on 01/26/17 08:24; Start 01/20/17 at 08:00 Amlodipine Besylate (Norvasc) 10 mg DAILY PO Last administered on 01/24/17 09: 35; Start 01/19/17 at 10:00; Stop 01/25/17 at 12:44; Status DC Oxycodone HCl (OxyCONTIN) 30 mg Q12HR PO Last administered on 01/26/17 08:24 ; Start 01/19/17 at 11:45 Senna/Docusate Sodium (Senna Plus) 2 tab DAILY PO Last administered on 08:23; Start 01/19/17 at 12:00 Gadobutrol (Gadavist) 10 mmol 1X ONCE IV ; Start 01/19/17 at 15:45; Stop at 15:46; Status DC Sodium Chloride 1,000 ml @ 75 mls/hr [id number] IV Last administered on 02:12; Start 01/20/17 at 11:15; Stop 01/21/17 at 18:06; Status DC Polyethylene Glycol (miraLAX PACKET) 17 gm DAILY PO Last administered on 08:23; Start 01/20/17 at 15:00 Metoprolol Succinate (Toprol Xl) 50 mg DAILY PO Last administered on 08:25; Start 01/21/17 at 09:00; Stop 01/26/17 at 09:48; Status DC Bacitracin 40843 unit/Sodium Chloride 1,000 ml @ 1,000 mls/hr 1X PERIOP ONCE IRR Last administered on 01/24/17 12:59; Start 01/24/17 at 06:00; Stop at 06:59; Status DC Ondansetron HCl (Zofran) 4 mg PRN Q6HRS PRN IV NAUSEA/VOMITING; Start 01/24/17 at 07:00; Stop 01/25/17 at 06:59; Status DC Fentanyl Citrate (Fentanyl 2ml Vial) 25 mcg PRN Q5MIN PRN IV MILD PAIN; Start 01/24/17 at 07:00; Stop 01/24/17 at 22:48; Status DC Fentanyl Citrate (Fentanyl 2ml Vial) 50 mcg PRN Q5MIN PRN IV MODERATE PAIN Last administered on 01/24/17 19:01; Start 01/24/17 at 07:00; Stop 01/24/17 at 22:48; Status DC Morphine Sulfate 1 mg PRN Q10MIN PRN IV SEVERE PAIN; Start 01/24/17 at 07:00; Stop 01/24/17 at 22:48; Status DC Ringer's Solution 1,000 ml @ 30 mls/hr Q24H IV Last administered on 01/24/17 11:40; Start 01/24/17 at 07:00; Stop 01/24/17 at 18:59; Status DC Lidocaine HCl (Xylocaine-Mpf 1% Vial) 2 ml PRN 1X PRN ID IV START; Start at 07:00; Stop 01/25/17 at 06:59; Status DC Hydromorphone HCl (Dilaudid) 0.5 mg PRN Q10MIN PRN IV SEV PAIN, Second choice; Start 01/24/17 at 07:00; Stop 01/24/17 at 22:48; Status DC Prochlorperazine Edisylate (Compazine) 5 mg PACU PRN PRN IV NAUSEA, MRX1; Start 01/24/17 at 07:00; Stop 01/24/17 at 22:48; Status DC Cefazolin Sodium/ Dextrose 50 ml @ 100 mls/hr 1X PREOP PRN IV PRE-OP Last administered on 01/24/17 12:25; Start 01/23/17 at 13:15; Stop 01/24/17 at 18:00 ; Status DC Gelatin (Gelfoam Size 100) 1 each STK-MED ONCE .ROUTE Last administered on 12:59; Start 01/24/17 at 07:30; Stop 01/24/17 at 07:31; Status DC Bupivacaine HCl/ Epinephrine Bitart (Sensorcain-Mpf Epi 0.5%-[id number]) 30 ml STK -MED ONCE .ROUTE Last administered on 01/24/17 12:59; Start 01/24/17 at 07:31 ; Stop 01/24/17 at 07:32; Status DC Ketorolac Tromethamine (Toradol For Or Only) 60 mg STK-MED ONCE .ROUTE Last administered on 01/24/17 12:59; Start 01/24/17 at 07:31; Stop 01/24/17 at 07:32 ; Status DC Thrombin 20,000 unit STK-MED ONCE TP Last administered on 01/24/17t 12:59; Start 01/24/17 at 07:31; Stop 01/24/17 at 07:32; Status DC Midazolam HCl (Versed) 2 mg STK-MED ONCE .ROUTE ; Start 01/24/17 at 11:05; Stop 01/24/17 at 11:06; Status DC Fentanyl Citrate (Fentanyl 5ml Vial) 250 mcg STK-MED ONCE .ROUTE ; Start at 11:05; Stop 01/24/17 at 11:06; Status DC Rocuronium [place] (Zemuron) 50 mg STK-MED ONCE .ROUTE ; Start 01/24/17 at 11:05 ; Stop 01/24/17 at 11:06; Status DC Remifentanil HCl (Ultiva) 2 mg STK-MED ONCE IV ; Start 01/24/17 at 11:05; Stop 01/24/17 at 11:06; Status DC Propofol 50 ml @ As Directed STK-MED ONCE IV ; Start 01/24/17 at 11:09; Stop at 11:10; Status DC Multi-Ingred Cream/Lotion/Oil/ Oint (Artificial Tears Eye Oint) 7 jose a STK-MED ONCE .ROUTE ; Start 01/24/17 at 11:09; Stop 01/24/17 at 11:10; Status DC Propofol 0 ml @ As Directed STK-MED ONCE IV ; Start 01/24/17 at 11:10; Stop 01/24/17 at 11:11; Status DC Lidocaine HCl (Lidocaine Pf 2% Vial) 5 ml STK-MED ONCE .ROUTE ; Start 01/24/17 at 11:10; Stop 01/24/17 at 11:11; Status DC Dexamethasone Sodium Phosphate (Decadron) 20 mg STK-MED ONCE .ROUTE ; Start 01/24/17 at 11:10; Stop 01/24/17 at 11:11; Status DC Ondansetron HCl (Zofran) 4 mg STK-MED ONCE .ROUTE ; Start 01/24/17 at 11:10; Stop 01/24/17 at 11:11; Status DC Desflurane (Suprane) 90 ml STK-MED ONCE IH ; Start 01/24/17 at 11:10; Stop 01/24 at 11:11; Status DC Sodium Chloride (Sodium Chloride) 50 ml STK-MED ONCE IJ ; Start 01/24/17 at 11: 11; Stop 01/24/17 at 11:12; Status DC Phenylephrine HCl 1 mg STK-MED ONCE IV ; Start 01/24/17 at 12:02; Stop 01/24/17 at 12:03; Status DC Glycopyrrolate (Robinul) 1 mg STK-MED ONCE .ROUTE ; Start 01/24/17 at 12:28; Stop 01/24/17 at 12:29; Status DC Neostigmine Methylsulfate 5 mg STK-MED ONCE .ROUTE ; Start 01/24/17 at 12:28; Stop 01/24/17 at 12:29; Status DC Ephedrine Sulfate (Akovaz) 50 mg STK-MED ONCE .ROUTE ; Start 01/24/17 at 14:05; Stop 01/24/17 at 14:06; Status DC Albumin Human 500 ml @ As Directed STK-MED ONCE IV ; Start 01/24/17 at 14:07; Stop 01/24/17 at 14:08; Status DC Remifentanil HCl (Ultiva) 2 mg STK-MED ONCE IV ; Start 01/24/17 at 14:55; Stop 01/24/17 at 14:56; Status DC Propofol 50 ml @ As Directed STK-MED ONCE IV ; Start 01/24/17 at 14:57; Stop at 14:58; Status DC Propofol 20 ml @ As Directed STK-MED ONCE IV ; Start 01/24/17 at 14:57; Stop at 14:58; Status DC Propofol 20 ml @ As Directed STK-MED ONCE IV ; Start 01/24/17 at 15:09; Stop at 15:10; Status DC Propofol 50 ml @ As Directed STK-MED ONCE IV ; Start 01/24/17 at 15:50; Stop at 15:51; Status DC Cefazolin Sodium/ Dextrose 50 ml @ As Directed STK-MED ONCE IV ; Start 01/24/17 at 16:20; Stop 01/24/17 at 16:21; Status DC Phenylephrine HCl 1 mg STK-MED ONCE IV ; Start 01/24/17 at 16:54; Stop 01/24/17 at 16:55; Status DC Propofol 50 ml @ As Directed STK-MED ONCE IV ; Start 01/24/17 at 17:10; Stop at 17:11; Status DC Remifentanil HCl (Ultiva) 2 mg STK-MED ONCE IV ; Start 01/24/17 at 17:10; Stop 01/24/17 at 17:11; Status DC Propofol 50 ml @ As Directed STK-MED ONCE IV ; Start 01/24/17 at 17:30; Stop at 17:31; Status DC Hydromorphone HCl (Dilaudid) 2 mg STK-MED ONCE .ROUTE ; Start 01/24/17 at 18:07 ; Stop 01/24/17 at 18:08; Status DC Fentanyl Citrate (Fentanyl 2ml Vial) 100 mcg STK-MED ONCE .ROUTE ; Start at 18:07; Stop 01/24/17 at 18:08; Status DC Morphine Sulfate 2 mg PRN Q2HR PRN IV SEVERE PAIN Last administered on 03:38; Start 01/24/17 at 22:45 Amlodipine Besylate (Norvasc) 5 mg DAILY PO Last administered on 01/26/17 08: 24; Start 01/26/17 at 09:00 Sodium Chloride 1,000 ml @ 75 mls/hr 1X ONCE IV Last administered on 13:25; Start 01/25/17 at 12:45; Stop 01/26/17 at 02:04; Status DC Metoprolol Succinate (Toprol Xl) 25 mg BID PO ; Start 01/26/17 at 21:00 Active Scripts Active Reported Imodium A-D (Loperamide HCl) 2 Mg Capsule 2 Mg PO Aspirin 325 Mg Tablet 1 Tab PO DAILY Vitamin D3 (Cholecalciferol (Vitamin D3)) 1,000 Unit Tablet 2,000 Unit PO Vicodin Es 7.5-300 Mg Tablet (Hydrocodone Bit/Acetaminophen) 1 Each Tablet 1 Each PO Q6H PRN Humira (Adalimumab) 40 Mg/0.8 Ml Pen.ij.kit 1 Syr SQ Q2WKS Folbic Rf Tablet (B12/Levomefolate Calcium/B-6) 1 Each Tablet 1 Each PO Omeprazole 40 Mg Capsule.dr 1 Cap PO DAILY Cholestyramine Packet (Cholestyramine (With Sugar)) 4 Gm Powd.pack 4 Gm PO Gabapentin 600 Mg Tablet 600 Mg PO TID Folic Acid 1 Mg Tablet 1 Tab PO DAILY Clonidine Hcl 0.1 Mg Tablet 0.1 Mg PO BID Metformin Hcl 1,000 Mg Tablet 1,000 Mg PO BIDWMEALS Atorvastatin Calcium 40 Mg Tablet 1 Tab PO DAILY Metoprolol Succinate ( Xl ) (Metoprolol Succinate) 100 Mg Tab.er.24h 100 Mg PO BID Vitals/I & O Vital Sign - Last 24 Hours 01/25/17 01/25/17 01/25/17 01/25/17 12:32 13:00 14:09 14:54 Temp 98.3 98.3 98.3 98.3 Pulse 77 76 72 Resp 14 B/P (MAP) 121/70 139/86 (103) 110/60 (77) Pulse Ox 96 100 100 O2 Delivery Nasal Cannula Room Air Room Air O2 Flow Rate 2.0 2.0 2.0 01/25/17 01/25/17 01/25/17 01/25/17 14:56 16:08 16:08 16:39 Temp 98.3 98.3 98.3 98.3 Pulse 79 72 Resp 16 16 B/P (MAP) 110/60 (77) 153/63 (93) Pulse Ox 100 100 100 O2 Delivery Nasal Cannula Nasal Cannula Nasal Cannula Nasal Cannula O2 Flow Rate 2.0 2.0 2.0 2.0 01/25/17 01/25/17 01/25/17 01/25/17 17:00 17:55 19:00 19:30 Temp 97.9 97.9 97.9 97.9 Pulse 78 82 76 Resp 16 23 8 B/P (MAP) 153/68 (96) 147/69 (95) Pulse Ox 100 100 99 O2 Delivery Nasal Cannula Nasal Cannula Nasal Cannula Nasal Cannula O2 Flow Rate 2.0 2.0 2.0 2.0 01/25/17 01/25/17 01/25/17 01/25/17 20:00 20:53 21:00 22:00 Temp 97.7 97.7 Pulse 72 72 57 Resp 16 12 8 8 B/P (MAP) 143/61 (88) 137/64 (88) 103/58 (73) Pulse Ox 100 100 100 99 O2 Delivery Nasal Cannula Nasal Cannula Nasal Cannula Nasal Cannula O2 Flow Rate 2.0 2.0 2.0 2.0 01/25/17 01/25/17 01/26/17 01/26/17 23:00 23:59 00:00 01:00 Temp 98.1 98.1 Pulse 66 70 Resp 7 7 7 B/P (MAP) 112/56 (74) 114/56 (75) Pulse Ox 100 99 99 O2 Delivery Nasal Cannula Nasal Cannula Nasal Cannula Nasal Cannula O2 Flow Rate 2.0 2.0 2.0 2.0 01/26/17 01/26/17 01/26/17 01/26/17 01:00 02:00 03:00 04:00 Pulse 70 67 71 Resp 7 20 10 B/P (MAP) 105/57 (73) 134/58 (83) 120/61 (80) Pulse Ox 99 98 100 O2 Delivery Nasal Cannula Nasal Cannula Nasal Cannula Nasal Cannula O2 Flow Rate 2.0 2.0 2.0 2.0 01/26/17 01/26/17 01/26/17 01/26/17 04:00 05:00 06:00 07:00 Temp 98.3 98.3 98.3 98.3 Pulse 67 69 55 67 Resp 12 11 11 15 B/P (MAP) 124/56 (78) 99/70 (80) 121/65 (83) 119/60 (79) Pulse Ox 99 96 100 100 O2 Delivery Nasal Cannula Nasal Cannula Nasal Cannula Nasal Cannula O2 Flow Rate 2.0 2.0 2.0 2.0 01/26/17 01/26/17 01/26/17 01/26/17 08:00 08:00 08:17 08:24 Temp 98.3 98.3 Pulse 60 66 Resp 10 15 12 B/P (MAP) 128/70 (89) 134/65 Pulse Ox 100 100 O2 Delivery Nasal Cannula Nasal Cannula Nasal Cannula O2 Flow Rate 2.0 2.0 2.0 01/26/17 01/26/17 01/26/17 01/26/17 08:24 08:25 08:32 09:00 Temp 98.2 98.2 98.2 98.2 Pulse 57 66 66 62 Resp 19 20 B/P (MAP) 134/65 134/65 128/70 127/59 (81) Pulse Ox 100 O2 Delivery Nasal Cannula O2 Flow Rate 2.0 01/26/17 01/26/17 01/26/17 01/26/17 09:15 10:00 10:13 11:00 Temp 98.4 98.3 98.4 98.3 Pulse 55 53 55 65 Resp 13 12 14 12 B/P (MAP) 127/59 113/59 (77) 113/59 111/59 (76) Pulse Ox 100 100 O2 Delivery Nasal Cannula Nasal Cannula O2 Flow Rate 2.0 2.0 Intake and Output 01/26/17 01/26/17 01/27/17 14:59 22:59 06:59 Intake Total 1460 ml Output Total 425 ml Balance 1035 ml JESSICA RAMIREZ III DO Jan 26, 2017 12:11
[2017-01-26 13:07] LABS: HEMATOCRIT 23.1 % (39.0-53.0); HEMOGLOBIN 7.6 g/dL (13.0-17.5); RED BLOOD COUNT 2.44 x10^6/uL (4.30-5.70); RED CELL DISTRIBUTION WIDTH 17.2 % (11.5-14.5)
[2017-01-26] MEDS: oxyCODONE/APAP 10/325 1 TAB TABLET PO PRN ×2 (14:32→18:13)
--- NOTE | 2017-01-26 17:56 | OP ---
DATE OF SURGERY: 01/24/2017 PREOPERATIVE DIAGNOSES: 1. Unstable Chance fracture, L3. 2. Epidural hematoma with stenosis, L3-L4. POSTOPERATIVE DIAGNOSIS: 1. Unstable Chance fracture, L3. 2. Epidural hematoma with stenosis, L3-L4. OPERATIONS PERFORMED: 1. Posterior instrumentation L1 through L5. 2. Posterolateral fusion L2, L3, L4 with allograft and autograft bone. 3. L3 right transpedicular biopsy for tumor. 4. Laminectomy, partial L3, L4 for epidural hematoma. The operation was done with bone marrow aspiration, BrainLAB guidance. SURGEON: Garret Arce M.D. BINDER STRIPPER MACHINE: Gentry Esquivel M.D. OPERATIVE INDICATIONS: The patient is a very pleasant 71-year-old man who suffered a fall and developed a significant fracture of L3 described as a Chance fracture. There was some malalignment of the bone. There was a great deal of hemorrhage within the vertebral body of L3. He had other abnormalities on his imaging studies suggesting tumors such as myeloma. Because of the unstable nature of the fracture, the patient was kept at bed rest. He did have normal neurological examination and did have control of his bladder throughout his early hospitalization. Because of the severe nature of the fracture, I recommended a long posterior instrumentation and fusion to stabilize his lumbar spine and combined this with the biopsy of L3 to attempt to make a diagnosis of possible malignancy. He understood the rationale for surgery, the technique of the operation and wished to go ahead. DESCRIPTION OF PROCEDURE: Following general endotracheal anesthesia, the patient was positioned prone on the Fan table. His lumbar region was prepped and draped in standard fashion. BLOSSOM hose and AV impulse boots were applied for DVT prophylaxis. A microscope was draped. Fluoroscopy was draped and brought into field. Monitoring was established. Ancef 2 g was given less than 1 hour prior to initiation of the surgery. Using fluoroscopic guidance, a midline posterior incision was made to the skin and subcutaneous tissue. Self-retaining retractors were placed. We opened the lumbodorsal fashion and worked down and exposed L1, L2, L3, L4 and L5. The BrainLAB clamp was attached to the inferior aspect of the spinous process of L5 and the BrainLAB system was initialized. We then began the process of placing pedicle screws first on the left side and then on the right side. This was done by first drilling into the posterior aspect of the pedicle passing the black ball followed by tap followed by screw placement. This was done with stimulated EMG monitoring throughout and there were no problems with breach of the pedicle. I did place a Jamshidi needle into the iliac crest on the left and aspirated 20 mL of bone marrow. This was mixed with allograft bone. At this point we placed the vonda on the left side and placed nuts and tightened securing the spine. We then brought in the microscope and using microscopic technique, I drilled and removed the lamina of the inferior portion of L3 and then L4 removing the epidural hematoma and visualizing the dura. The hemorrhage was primarily in the dorsal aspect of the dura and we had an excellent decompression from this laminectomy. This bone was used and morcellized and placed in the lateral gutter performing at L2, L3, L4 fusion on the left side and then this was placed on the right side after excoriation of the lateral facet and the transverse processes. Once the vonda was placed on the right side, we did use a NuVasive system throughout, 6.5 screws were used except for L1 in which 5.5 screws were used. Prior to placing the vonda on the right side, I did drill into the posterior aspect of the pedicle and enlarged this from the right side allowing access for pituitary into the vertebral body of L3. There was blood, which came back on some of the biopsies, but also some tissue was removed and this was sent for permanent section. The opening into the vertebral body was sealed with Gelfoam as well as small amount of bone wax. The vonda was placed and the nuts were applied and I was certain the entire construct was torqued sequentially. At this point, then we had pedicle screw fixation from L1 through L5 with screw and vonda construct with posterolateral fusion placed above and below the area of the fracture. The epidural hematoma had been well decompressed at L3-L4 and biopsy had been obtained in the vertebral body. We irrigated the entire region copiously. We worked diligently throughout the case to maintain hemostasis, but the patient tended to ooze virtually continuously and areas, which we coagulated would later to start bleed again, thus hemostasis during the operation was a difficult problem. The patient remained stable throughout the procedure, however. He was given blood. Coags were checked and were slightly abnormal, but not significantly. FFP was given, however, in further attempt to improve our hemostasis. A drain was overlaid over the laminectomy side and brought out through a separate stab incision. The wound was closed in layers and once closure had began, the hemostasis improved virtually immediately. The subcutaneous tissue was closed in layers with absorbable suture and the skin was closed with skin ricky. The operation went well and the patient awakened uneventfully. I was quite pleased with the surgery. GARRET ARCE MD DR: ROSY/meagan JOB#: [id number] / [id number] JENNY
--- NOTE | 2017-01-26 19:25 | PDOC ---
PROGRESS NOTES Subjective Subjective He is comfortable now. Objective Objective Vital Signs Date Time Temp Pulse Resp B/P (MAP) Pulse Ox O2 Delivery O2 Flow Rate FiO2 01/26/17 18:13 Room Air 01/26/17 13:38 98 2.0 01/26/17 12:24 16 01/26/17 11:00 65 111/59 (76) 01/26/17 10:13 98.3 98.3 Intake and Output 01/27/17 07:00 Intake Total 1220 ml Output Total 300 ml Balance 920 ml Intake Oral 720 ml Blood Product IV Normal Saline Flush 500 ml Output Urine Total 300 ml Physical Exam Physical Exam He received his back brace late in the day,and because of it he did not get up today,. He moves all 4 extremities voluntarily. 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 Comment Review of Relevant I have reviewed the following items bernadine (where applicable) has been applied. Labs Laboratory Tests Test 01/24/17 19:30 01/24/17 19:50 01/24/17 22:50 01/25/17 05:40 White Blood Count 14.7 x10^3/uL (4.0-11.0) 16.3 x10^3/uL (4.0-11.0) Red Blood Count 2.86 x10^6/uL (4.30-5.70) 2.53 x10^6/uL (4.30-5.70) Hemoglobin 8.9 g/dL (13.0-17.5) 7.9 g/dL (13.0-17.5) Hematocrit 26.6 % (39.0-53.0) 23.4 % (39.0-53.0) Mean Corpuscular Volume 93 fL (79-100) 92 fL (79-100) Mean Corpuscular Hemoglobin 31 pg (25-35) 31 pg (25-35) Mean Corpuscular Hemoglobin Concent 34 g/dL (31-37) 34 g/dL (31-37) Red Cell Distribution Width 17.2 % (11.5-14.5) 17.6 % (11.5-14.5) Platelet Count 177 x10^3/uL (140-400) 156 x10^3/uL (140-400) Prothrombin Time 15.0 SEC (11.7-14.0) Prothromb Time International Ratio 1.3 (0.8-1.1) Activated Partial Thromboplast Time 33 SEC (24-38) Nasal Screen MRSA (PCR) Negative (Negative) Glucose (Fingerstick) 140 mg/dL (70-99) Neutrophils (%) (Auto) 79 % (31-73) Lymphocytes (%) (Auto) 4 % (24-48) Monocytes (%) (Auto) 16 % (0-9) Eosinophils (%) (Auto) 0 % (0-3) Basophils (%) (Auto) 0 % (0-3) Neutrophils # (Auto) 12.9 x10^3uL (1.8-7.7) Lymphocytes # (Auto) 0.7 x10^3/uL (1.0-4.8) Monocytes # (Auto) 2.6 x10^3/uL (0.0-1.1) Eosinophils # (Auto) 0.0 x10^3/uL (0.0-0.7) Basophils # (Auto) 0.1 x10^3/uL (0.0-0.2) Sodium Level 139 mmol/L (136-145) Potassium Level 4.4 mmol/L (3.5-5.1) Chloride Level 103 mmol/L (98-107) Carbon Dioxide Level 27 mmol/L (21-32) Anion Gap 9 (6-14) Blood Urea Nitrogen 38 mg/dL (8-26) Creatinine 1.4 mg/dL (0.7-1.3) Estimated GFR (Cockcroft-Gault) 50.0 Glucose Level 150 mg/dL (70-99) Calcium Level 7.9 mg/dL (8.5-10.1) Test 01/25/17 08:20 01/25/17 11:44 01/25/17 16:56 01/25/17 20:58 Glucose (Fingerstick) 130 mg/dL (70-99) 120 mg/dL (70-99) 120 mg/dL (70-99) 149 mg/dL (70-99) Test 01/26/17 05:15 01/26/17 07:44 01/26/17 12:02 01/26/17 12:56 White Blood Count 9.8 x10^3/uL (4.0-11.0) 11.0 x10^3/uL (4.0-11.0) Red Blood Count 2.03 x10^6/uL (4.30-5.70) 2.44 x10^6/uL (4.30-5.70) Hemoglobin 6.6 g/dL (13.0-17.5) 7.6 g/dL (13.0-17.5) Hematocrit 19.2 % (39.0-53.0) 23.1 % (39.0-53.0) Mean Corpuscular Volume 94 fL (79-100) 95 fL (79-100) Mean Corpuscular Hemoglobin 32 pg (25-35) 31 pg (25-35) Mean Corpuscular Hemoglobin Concent 34 g/dL (31-37) 33 g/dL (31-37) Red Cell Distribution Width 17.1 % (11.5-14.5) 17.2 % (11.5-14.5) Platelet Count 115 x10^3/uL (140-400) 132 x10^3/uL (140-400) Neutrophils (%) (Auto) 79 % (31-73) Lymphocytes (%) (Auto) 6 % (24-48) Monocytes (%) (Auto) 15 % (0-9) Eosinophils (%) (Auto) 0 % (0-3) Basophils (%) (Auto) 0 % (0-3) Neutrophils # (Auto) 7.7 x10^3uL (1.8-7.7) Lymphocytes # (Auto) 0.6 x10^3/uL (1.0-4.8) Monocytes # (Auto) 1.5 x10^3/uL (0.0-1.1) Eosinophils # (Auto) 0.0 x10^3/uL (0.0-0.7) Basophils # (Auto) 0.0 x10^3/uL (0.0-0.2) Sodium Level 137 mmol/L (136-145) Potassium Level 4.3 mmol/L (3.5-5.1) Chloride Level 103 mmol/L (98-107) Carbon Dioxide Level 29 mmol/L (21-32) Anion Gap 5 (6-14) Blood Urea Nitrogen 41 mg/dL (8-26) Creatinine 1.4 mg/dL (0.7-1.3) Estimated GFR (Cockcroft-Gault) 50.0 Glucose Level 127 mg/dL (70-99) Calcium Level 8.0 mg/dL (8.5-10.1) Glucose (Fingerstick) 118 mg/dL (70-99) 108 mg/dL (70-99) Test 01/26/17 17:16 Glucose (Fingerstick) 148 mg/dL (70-99) Laboratory Tests Test 01/25/17 20:58 01/26/17 05:15 01/26/17 07:44 01/26/17 12:02 Glucose (Fingerstick) 149 mg/dL (70-99) 118 mg/dL (70-99) 108 mg/dL (70-99) White Blood Count 9.8 x10^3/uL (4.0-11.0) Red Blood Count 2.03 x10^6/uL (4.30-5.70) Hemoglobin 6.6 g/dL (13.0-17.5) Hematocrit 19.2 % (39.0-53.0) Mean Corpuscular Volume 94 fL (79-100) Mean Corpuscular Hemoglobin 32 pg (25-35) Mean Corpuscular Hemoglobin Concent 34 g/dL (31-37) Red Cell Distribution Width 17.1 % (11.5-14.5) Platelet Count 115 x10^3/uL (140-400) Neutrophils (%) (Auto) 79 % (31-73) Lymphocytes (%) (Auto) 6 % (24-48) Monocytes (%) (Auto) 15 % (0-9) Eosinophils (%) (Auto) 0 % (0-3) Basophils (%) (Auto) 0 % (0-3) Neutrophils # (Auto) 7.7 x10^3uL (1.8-7.7) Lymphocytes # (Auto) 0.6 x10^3/uL (1.0-4.8) Monocytes # (Auto) 1.5 x10^3/uL (0.0-1.1) Eosinophils # (Auto) 0.0 x10^3/uL (0.0-0.7) Basophils # (Auto) 0.0 x10^3/uL (0.0-0.2) Sodium Level 137 mmol/L (136-145) Potassium Level 4.3 mmol/L (3.5-5.1) Chloride Level 103 mmol/L (98-107) Carbon Dioxide Level 29 mmol/L (21-32) Anion Gap 5 (6-14) Blood Urea Nitrogen 41 mg/dL (8-26) Creatinine 1.4 mg/dL (0.7-1.3) Estimated GFR (Cockcroft-Gault) 50.0 Glucose Level 127 mg/dL (70-99) Calcium Level 8.0 mg/dL (8.5-10.1) Test 01/26/17 12:56 01/26/17 17:16 White Blood Count 11.0 x10^3/uL (4.0-11.0) Red Blood Count 2.44 x10^6/uL (4.30-5.70) Hemoglobin 7.6 g/dL (13.0-17.5) Hematocrit 23.1 % (39.0-53.0) Mean Corpuscular Volume 95 fL (79-100) Mean Corpuscular Hemoglobin 31 pg (25-35) Mean Corpuscular Hemoglobin Concent 33 g/dL (31-37) Red Cell Distribution Width 17.2 % (11.5-14.5) Platelet Count 132 x10^3/uL (140-400) Glucose (Fingerstick) 148 mg/dL (70-99) Microbiology 01/15/17 Blood Culture - Final, Complete NO GROWTH AFTER 5 DAYS Medications Current Medications Fentanyl Citrate (Fentanyl 2ml Vial) 50 mcg 1X ONCE IV Last administered on 21:52; Start 01/15/17 at 22:00; Stop 01/15/17 at 22:01; Status DC Sodium Chloride 1,000 ml @ 150 mls/hr 1X ONCE IV Last administered on 22:31; Start 01/15/17 at 22:00; Stop 01/16/17 at 04:39; Status DC Piperacillin Sod/ Tazobactam Sod 3.375 gm/Dextrose 50 ml @ 100 mls/hr 1X ONCE IV Last administered on 01/15/17 23:22; Start 01/15/17 at 23:30; Stop 01/15 at 23:59; Status DC Heparin Sodium (Porcine) (Heparin Sodium) 9,450 unit 1X ONCE IV Last administered on 01/15/17 23:30; Start 01/15/17 at 23:30; Stop 01/16/17 at 16 :41; Status DC Heparin Sodium/ Dextrose 500 ml @ 0 mls/hr CONT PRN IV SEE I/O RECORD Last administered on 01/16/17 16:26; Start 01/15/17 at 23:15; Stop 01/16/17 at 16 :41; Status DC Heparin Sodium (Porcine) (Heparin Sodium) 3,550 unit PRN Q6HRS PRN IV FOR UFH LEVEL LESS THAN 0.2; Start 01/15/17 at 23:15; Stop 01/16/17 at 16:41; Status DC Heparin Sodium (Porcine) (Heparin Sodium) 1,750 unit PRN Q6HRS PRN IV FOR UFH LEVEL 0.2 - 0.29; Start 01/15/17 at 23:15; Stop 01/16/17 at 16:41; Status DC Warfarin Sodium (Coumadin Per Pharmacy) 1 each PRN DAILY PRN MC PER PROTOCOL Last administered on 01/16/17 10:20; Start 01/15/17 at 23:15; Stop 01/16/17 at 16:39; Status DC Info (Anti-Coagulation Monitoring By Pharmacy) 1 each PRN DAILY PRN MC SEE COMMENTS Last administered on 01/16/17 10:17; Start 01/15/17 at 23:30; Stop 01/18/17 at 14:31; Status DC Ondansetron HCl (Zofran) 4 mg PRN Q8HRS PRN IV NAUSEA/VOMITING; Start at 23:15; Stop 01/16/17 at 23:14; Status DC Fentanyl Citrate (Fentanyl 2ml Vial) 50 mcg PRN Q2HR PRN IV SEVERE PAIN Last administered on 01/16/17 01:33; Start 01/15/17 at 23:15; Stop 01/16/17 at 02 :47; Status DC Piperacillin Sod/ Tazobactam Sod (Zosyn Per Pharmacy) 1 each PRN DAILY PRN MC SEE COMMENTS; Start 01/15/17 at 23:15; Stop 01/16/17 at 02:54; Status DC Sodium Chloride 1,000 ml @ 150 mls/hr 1X ONCE IV Last administered on 01:34; Start 01/15/17 at 23:45; Stop 01/16/17 at 06:24; Status DC Albuterol Sulfate (Ventolin Neb Soln) 2.5 mg PRN Q3HRS PRN NEB WHEEZING Last administered on 01/16/17 11:24; Start 01/15/17 at 23:30 Morphine Sulfate 2 mg 1X ONCE IV Last administered on 01/15/17 23:47; Start 01/16/17 at 00:00; Stop 01/16/17 at 00:01; Status DC Fentanyl Citrate (Fentanyl 2ml Vial) 75 mcg PRN Q2HR PRN IV SEVERE PAIN Last administered on 01/16/17 13:56; Start 01/16/17 at 02:45; Stop 01/16/17 at 16 :41; Status DC Piperacillin Sod/ Tazobactam Sod (Zosyn Per Pharmacy) 1 each PRN DAILY PRN MC SEE COMMENTS; Start 01/16/17 at 02:45; Stop 01/17/17 at 16:01; Status DC Piperacillin Sod/ Tazobactam Sod (Zosyn) 2.25 gm Q6HRS IVP Last administered on 01/17/17 12:01; Start 01/16/17 at 06:00; Stop 01/17/17 at 16:01; Status DC Info (Anti-Coagulation Monitoring By Pharmacy) 1 each PRN DAILY PRN MC SEE COMMENTS; Start 01/16/17 at 09:45; Status Cancel Warfarin Sodium (Coumadin) 5 mg 1X WARF ONCE PO ; Start 01/16/17 at 16:00; Stop 01/16/17 at 16:39; Status DC Lactobacillus Rhamnosus (Culturelle) 1 cap BID PO Last administered on 08:23; Start 01/16/17 at 21:00 Magnesium Sulfate/ Dextrose 50 ml @ 25 mls/hr 1X ONCE IV Last administered on 01/16/17 12:45; Start 01/16/17 at 11:30; Stop 01/16/17 at 13:29; Status DC Linezolid 300 ml @ 300 mls/hr Q12HR IV Last administered on 01/16/17 20:58; Start 01/16/17 at 12:00; Stop 01/17/17 at 08:14; Status DC Iohexol (Omnipaque 240 Mg/ml) 30 ml 1X ONCE PO ; Start 01/16/17 at 12:00; Stop 01/16/17 at 12:01; Status DC Info (Do NOT chart on this entry -- for MONITORING) 1 each PRN DAILY PRN MC SEE COMMENTS; Start 01/16/17 at 12:00; Stop 01/18/17 at 11:59; Status DC Magnesium Sulfate/ Dextrose 50 ml @ 25 mls/hr PRN DAILY PRN IV for Mag < 1.7 on am labs; Start 01/16/17 at 13:15 Metoprolol Succinate (Toprol Xl) 50 mg BID PO Last administered on 01/21/17 08 :11; Start 01/16/17 at 21:00; Stop 01/21/17 at 08:33; Status DC Sodium Chloride 1,000 ml @ 100 mls/hr Q10H IV Last administered on 01/18/17 05:45; Start 01/16/17 at 13:45; Stop 01/18/17 at 11:44; Status DC Aspirin (Charmaine Aspirin) 325 mg DAILYWBKFT PO Last administered on 01/19/17 08: 35; Start 01/17/17 at 08:00; Stop 01/19/17 at 09:49; Status DC Atorvastatin Calcium (Lipitor) 40 mg QHS PO Last administered on 01/25/17 20: 52; Start 01/16/17 at 21:00 Vitamin D (Vitamin D3) 2,000 unit DAILY PO Last administered on 01/26/17 08: 24; Start 01/17/17 at 09:00 Clonidine HCl (Catapres) 0.1 mg BID PO Last administered on 01/19/17 08:35; Start 01/16/17 at 21:00; Stop 01/19/17 at 09:52; Status DC Folic Acid (Folic Acid) 1 mg DAILY PO Last administered on 01/26/17 08:23; Start 01/17/17 at 09:00 Loperamide HCl (Imodium) 2 mg Q2H PRN PO diarrhea; Start 01/16/17 at 16:45 Metoprolol Succinate (Toprol Xl) 100 mg BID PO ; Start 01/16/17 at 21:00; Status UNV Gabapentin (Neurontin) 600 mg TID PO Last administered on 01/26/17 14:32; Start 01/16/17 at 21:00 Pantoprazole Sodium (Protonix) 40 mg DAILYAC PO Last administered on 08:22; Start 01/17/17 at 07:30 Insulin Aspart (NovoLOG) 0-9 UNITS TIDWMEALS SQ Last administered on 01/22/17 17:00; Start 01/16/17 at 17:00 Dextrose (Dextrose 50%-Water Syringe) 12.5 gm PRN Q15MIN PRN IV SEE COMMENTS; Start 01/16/17 at 16:45 Dexamethasone Sodium Phosphate (Decadron) 10 mg 1X ONCE IV Last administered on 01/16/17 17:05; Start 01/16/17 at 16:45; Stop 01/16/17 at 16:46; Status DC Dexamethasone Sodium Phosphate (Decadron) 4 mg Q6HRS IV Last administered on 05:58; Start 01/17/17 at 00:00; Stop 01/18/17 at 15:31; Status DC Morphine Sulfate 2 mg PRN Q2HR PRN IV PAIN Last administered on 01/24/17 19:52 ; Start 01/16/17 at 16:45; Stop 01/24/17 at 22:39; Status DC Oxycodone/ Acetaminophen (Percocet 10/325) 1 tab PRN Q4HRS PRN PO pain Last administered on 01/26/17 18:13; Start 01/16/17 at 16:45 Heparin Sodium (Porcine) (Heparin Sq) 5,000 unit Q8HRS SQ Last administered on 01/23/17 06:00; Start 01/16/17 at 22:00; Stop 01/23/17 at 13:16; Status DC Diazepam (Valium) 5 mg PRN Q6HRS PRN IV SEIZURES; Start 01/16/17 at 18:30; Status Cancel Diazepam (Valium) 5 mg PRN Q6HRS PRN PO TREMORS Last administered on 01/24/17 21:22; Start 01/16/17 at 18:45 Fentanyl Citrate (Fentanyl 2ml Vial) 100 mcg STK-MED ONCE .ROUTE ; Start at 10:08; Stop 01/17/17 at 10:09; Status DC Midazolam HCl (Versed) 2 mg STK-MED ONCE .ROUTE ; Start 01/17/17 at 10:08; Stop 01/17/17 at 10:09; Status DC Lidocaine/Sodium Bicarbonate (Buffered Lidocaine 1%) 20 ml 1X ONCE IJ Last administered on 01/17/17 10:51; Start 01/17/17 at 10:15; Stop 01/17/17 at 10:16 ; Status DC Midazolam HCl (Versed) 2 mg 1X ONCE IV Last administered on 01/17/17 10:52; Start 01/17/17 at 10:15; Stop 01/17/17 at 10:16; Status DC Fentanyl Citrate (Fentanyl 2ml Vial) 100 mcg 1X ONCE IV Last administered on 01/17/17 10:52; Start 01/17/17 at 10:15; Stop 01/17/17 at 10:16; Status DC Lidocaine/Sodium Bicarbonate (Buffered Lidocaine 1%) 20 ml STK-MED ONCE IJ ; Start 01/17/17 at 10:14; Stop 01/17/17 at 10:15; Status DC Piperacillin Sod/ Tazobactam Sod (Zosyn) 3.375 gm Q6HRS IVP Last administered on 01/18/17 06:00; Start 01/17/17 at 18:00; Stop 01/18/17 at 10:42; Status DC Dexamethasone Sodium Phosphate (Decadron) 4 mg Q12HR IV Last administered on 08:25; Start 01/18/17 at 21:00 Aspirin (Ecotrin) 81 mg DAILYWBKFT PO Last administered on 01/26/17 08:24; Start 01/20/17 at 08:00 Amlodipine Besylate (Norvasc) 10 mg DAILY PO Last administered on 01/24/17 09: 35; Start 01/19/17 at 10:00; Stop 01/25/17 at 12:44; Status DC Oxycodone HCl (OxyCONTIN) 30 mg Q12HR PO Last administered on 01/26/17 08:24 ; Start 01/19/17 at 11:45 Senna/Docusate Sodium (Senna Plus) 2 tab DAILY PO Last administered on 08:23; Start 01/19/17 at 12:00 Gadobutrol (Gadavist) 10 mmol 1X ONCE IV ; Start 01/19/17 at 15:45; Stop at 15:46; Status DC Sodium Chloride 1,000 ml @ 75 mls/hr [id number] IV Last administered on 02:12; Start 01/20/17 at 11:15; Stop 01/21/17 at 18:06; Status DC Polyethylene Glycol (miraLAX PACKET) 17 gm DAILY PO Last administered on 08:23; Start 01/20/17 at 15:00 Metoprolol Succinate (Toprol Xl) 50 mg DAILY PO Last administered on 08:25; Start 01/21/17 at 09:00; Stop 01/26/17 at 09:48; Status DC Bacitracin 90643 unit/Sodium Chloride 1,000 ml @ 1,000 mls/hr 1X PERIOP ONCE IRR Last administered on 01/24/17 12:59; Start 01/24/17 at 06:00; Stop at 06:59; Status DC Ondansetron HCl (Zofran) 4 mg PRN Q6HRS PRN IV NAUSEA/VOMITING; Start 01/24/17 at 07:00; Stop 01/25/17 at 06:59; Status DC Fentanyl Citrate (Fentanyl 2ml Vial) 25 mcg PRN Q5MIN PRN IV MILD PAIN; Start 01/24/17 at 07:00; Stop 01/24/17 at 22:48; Status DC Fentanyl Citrate (Fentanyl 2ml Vial) 50 mcg PRN Q5MIN PRN IV MODERATE PAIN Last administered on 01/24/17 19:01; Start 01/24/17 at 07:00; Stop 01/24/17 at 22:48; Status DC Morphine Sulfate 1 mg PRN Q10MIN PRN IV SEVERE PAIN; Start 01/24/17 at 07:00; Stop 01/24/17 at 22:48; Status DC Ringer's Solution 1,000 ml @ 30 mls/hr Q24H IV Last administered on 01/24/17 11:40; Start 01/24/17 at 07:00; Stop 01/24/17 at 18:59; Status DC Lidocaine HCl (Xylocaine-Mpf 1% Vial) 2 ml PRN 1X PRN ID IV START; Start at 07:00; Stop 01/25/17 at 06:59; Status DC Hydromorphone HCl (Dilaudid) 0.5 mg PRN Q10MIN PRN IV SEV PAIN, Second choice; Start 01/24/17 at 07:00; Stop 01/24/17 at 22:48; Status DC Prochlorperazine Edisylate (Compazine) 5 mg PACU PRN PRN IV NAUSEA, MRX1; Start 01/24/17 at 07:00; Stop 01/24/17 at 22:48; Status DC Cefazolin Sodium/ Dextrose 50 ml @ 100 mls/hr 1X PREOP PRN IV PRE-OP Last administered on 01/24/17 12:25; Start 01/23/17 at 13:15; Stop 01/24/17 at 18:00 ; Status DC Gelatin (Gelfoam Size 100) 1 each STK-MED ONCE .ROUTE Last administered on 12:59; Start 01/24/17 at 07:30; Stop 01/24/17 at 07:31; Status DC Bupivacaine HCl/ Epinephrine Bitart (Sensorcain-Mpf Epi 0.5%-[id number]) 30 ml STK -MED ONCE .ROUTE Last administered on 01/24/17 12:59; Start 01/24/17 at 07:31 ; Stop 01/24/17 at 07:32; Status DC Ketorolac Tromethamine (Toradol For Or Only) 60 mg STK-MED ONCE .ROUTE Last administered on 01/24/17 12:59; Start 01/24/17 at 07:31; Stop 01/24/17 at 07:32 ; Status DC Thrombin 20,000 unit STK-MED ONCE TP Last administered on 01/24/17 12:59; Start 01/24/17 at 07:31; Stop 01/24/17 at 07:32; Status DC Midazolam HCl (Versed) 2 mg STK-MED ONCE .ROUTE ; Start 01/24/17 at 11:05; Stop 01/24/17 at 11:06; Status DC Fentanyl Citrate (Fentanyl 5ml Vial) 250 mcg STK-MED ONCE .ROUTE ; Start at 11:05; Stop 01/24/17 at 11:06; Status DC Rocuronium [place] (Zemuron) 50 mg STK-MED ONCE .ROUTE ; Start 01/24/17 at 11:05 ; Stop 01/24/17 at 11:06; Status DC Remifentanil HCl (Ultiva) 2 mg STK-MED ONCE IV ; Start 01/24/17 at 11:05; Stop 01/24/17 at 11:06; Status DC Propofol 50 ml @ As Directed STK-MED ONCE IV ; Start 01/24/17 at 11:09; Stop at 11:10; Status DC Multi-Ingred Cream/Lotion/Oil/ Oint (Artificial Tears Eye Oint) 7 jose a STK-MED ONCE .ROUTE ; Start 01/24/17 at 11:09; Stop 01/24/17 at 11:10; Status DC Propofol 0 ml @ As Directed STK-MED ONCE IV ; Start 01/24/17 at 11:10; Stop 01/24/17 at 11:11; Status DC Lidocaine HCl (Lidocaine Pf 2% Vial) 5 ml STK-MED ONCE .ROUTE ; Start 01/24/17 at 11:10; Stop 01/24/17 at 11:11; Status DC Dexamethasone Sodium Phosphate (Decadron) 20 mg STK-MED ONCE .ROUTE ; Start 01/24/17 at 11:10; Stop 01/24/17 at 11:11; Status DC Ondansetron HCl (Zofran) 4 mg STK-MED ONCE .ROUTE ; Start 01/24/17 at 11:10; Stop 01/24/17 at 11:11; Status DC Desflurane (Suprane) 90 ml STK-MED ONCE IH ; Start 01/24/17 at 11:10; Stop 01/24 at 11:11; Status DC Sodium Chloride (Sodium Chloride) 50 ml STK-MED ONCE IJ ; Start 01/24/17 at 11: 11; Stop 01/24/17 at 11:12; Status DC Phenylephrine HCl 1 mg STK-MED ONCE IV ; Start 01/24/17 at 12:02; Stop 01/24/17 at 12:03; Status DC Glycopyrrolate (Robinul) 1 mg STK-MED ONCE .ROUTE ; Start 01/24/17 at 12:28; Stop 01/24/17 at 12:29; Status DC Neostigmine Methylsulfate 5 mg STK-MED ONCE .ROUTE ; Start 01/24/17 at 12:28; Stop 01/24/17 at 12:29; Status DC Ephedrine Sulfate (Akovaz) 50 mg STK-MED ONCE .ROUTE ; Start 01/24/17 at 14:05; Stop 01/24/17 at 14:06; Status DC Albumin Human 500 ml @ As Directed STK-MED ONCE IV ; Start 01/24/17 at 14:07; Stop 01/24/17 at 14:08; Status DC Remifentanil HCl (Ultiva) 2 mg STK-MED ONCE IV ; Start 01/24/17 at 14:55; Stop 01/24/17 at 14:56; Status DC Propofol 50 ml @ As Directed STK-MED ONCE IV ; Start 01/24/17 at 14:57; Stop at 14:58; Status DC Propofol 20 ml @ As Directed STK-MED ONCE IV ; Start 01/24/17 at 14:57; Stop at 14:58; Status DC Propofol 20 ml @ As Directed STK-MED ONCE IV ; Start 01/24/17 at 15:09; Stop at 15:10; Status DC Propofol 50 ml @ As Directed STK-MED ONCE IV ; Start 01/24/17 at 15:50; Stop at 15:51; Status DC Cefazolin Sodium/ Dextrose 50 ml @ As Directed STK-MED ONCE IV ; Start 01/24/17 at 16:20; Stop 01/24/17 at 16:21; Status DC Phenylephrine HCl 1 mg STK-MED ONCE IV ; Start 01/24/17 at 16:54; Stop 01/24/17 at 16:55; Status DC Propofol 50 ml @ As Directed STK-MED ONCE IV ; Start 01/24/17 at 17:10; Stop at 17:11; Status DC Remifentanil HCl (Ultiva) 2 mg STK-MED ONCE IV ; Start 01/24/17 at 17:10; Stop 01/24/17 at 17:11; Status DC Propofol 50 ml @ As Directed STK-MED ONCE IV ; Start 01/24/17 at 17:30; Stop at 17:31; Status DC Hydromorphone HCl (Dilaudid) 2 mg STK-MED ONCE .ROUTE ; Start 01/24/17 at 18:07 ; Stop 01/24/17 at 18:08; Status DC Fentanyl Citrate (Fentanyl 2ml Vial) 100 mcg STK-MED ONCE .ROUTE ; Start at 18:07; Stop 01/24/17 at 18:08; Status DC Morphine Sulfate 2 mg PRN Q2HR PRN IV SEVERE PAIN Last administered on 03:38; Start 01/24/17 at 22:45 Amlodipine Besylate (Norvasc) 5 mg DAILY PO Last administered on 01/26/17 08: 24; Start 01/26/17 at 09:00 Sodium Chloride 1,000 ml @ 75 mls/hr 1X ONCE IV Last administered on 13:25; Start 01/25/17 at 12:45; Stop 01/26/17 at 02:04; Status DC Metoprolol Succinate (Toprol Xl) 25 mg BID PO ; Start 01/26/17 at 21:00 Active Scripts Active Reported Imodium A-D (Loperamide HCl) 2 Mg Capsule 2 Mg PO Aspirin 325 Mg Tablet 1 Tab PO DAILY Vitamin D3 (Cholecalciferol (Vitamin D3)) 1,000 Unit Tablet 2,000 Unit PO Vicodin Es 7.5-300 Mg Tablet (Hydrocodone Bit/Acetaminophen) 1 Each Tablet 1 Each PO Q6H PRN Humira (Adalimumab) 40 Mg/0.8 Ml Pen.ij.kit 1 Syr SQ Q2WKS Folbic Rf Tablet (B12/Levomefolate Calcium/B-6) 1 Each Tablet 1 Each PO Omeprazole 40 Mg Capsule.dr 1 Cap PO DAILY Cholestyramine Packet (Cholestyramine (With Sugar)) 4 Gm Powd.pack 4 Gm PO Gabapentin 600 Mg Tablet 600 Mg PO TID Folic Acid 1 Mg Tablet 1 Tab PO DAILY Clonidine Hcl 0.1 Mg Tablet 0.1 Mg PO BID Metformin Hcl 1,000 Mg Tablet 1,000 Mg PO BIDWMEALS Atorvastatin Calcium 40 Mg Tablet 1 Tab PO DAILY Metoprolol Succinate ( Xl ) (Metoprolol Succinate) 100 Mg Tab.er.24h 100 Mg PO BID Vitals/I & O Vital Sign - Last 24 Hours 01/25/17 01/25/17 01/25/17 01/25/17 19:30 20:00 20:53 21:00 Temp 97.7 97.7 Pulse 72 72 Resp 16 12 8 B/P (MAP) 143/61 (88) 137/64 (88) Pulse Ox 100 100 100 O2 Delivery Nasal Cannula Nasal Cannula Nasal Cannula Nasal Cannula O2 Flow Rate 2.0 2.0 2.0 2.0 01/25/17 01/25/17 01/25/17 01/26/17 22:00 23:00 23:59 00:00 Temp 98.1 98.1 Pulse 57 66 70 Resp 8 7 7 B/P (MAP) 103/58 (73) 112/56 (74) 114/56 (75) Pulse Ox 99 100 99 O2 Delivery Nasal Cannula Nasal Cannula Nasal Cannula Nasal Cannula O2 Flow Rate 2.0 2.0 2.0 2.0 01/26/17 01/26/17 01/26/17 01/26/17 01:00 02:00 03:00 04:00 Pulse 70 67 71 Resp 7 20 10 B/P (MAP) 105/57 (73) 134/58 (83) 120/61 (80) Pulse Ox 99 98 100 O2 Delivery Nasal Cannula Nasal Cannula Nasal Cannula Nasal Cannula O2 Flow Rate 2.0 2.0 2.0 2.0 01/26/17 01/26/17 01/26/17 01/26/17 04:00 05:00 06:00 07:00 Temp 98.3 98.3 98.3 98.3 Pulse 67 69 55 67 Resp 12 11 11 15 B/P (MAP) 124/56 (78) 99/70 (80) 121/65 (83) 119/60 (79) Pulse Ox 99 96 100 100 O2 Delivery Nasal Cannula Nasal Cannula Nasal Cannula Nasal Cannula O2 Flow Rate 2.0 2.0 2.0 2.0 01/26/17 01/26/17 01/26/17 01/26/17 08:00 08:00 08:17 08:24 Temp 98.3 98.3 Pulse 60 66 Resp 10 15 12 B/P (MAP) 128/70 (89) 134/65 Pulse Ox 100 100 O2 Delivery Nasal Cannula Nasal Cannula Nasal Cannula O2 Flow Rate 2.0 2.0 2.0 01/26/17 01/26/17 01/26/17 01/26/17 08:24 08:25 08:32 09:00 Temp 98.2 98.2 98.2 98.2 Pulse 57 66 66 62 Resp 19 20 B/P (MAP) 134/65 134/65 128/70 127/59 (81) Pulse Ox 100 O2 Delivery Nasal Cannula O2 Flow Rate 2.0 01/26/17 01/26/17 01/26/17 01/26/17 09:15 10:00 10:13 11:00 Temp 98.4 98.3 98.4 98.3 Pulse 55 53 55 65 Resp 13 12 14 12 B/P (MAP) 127/59 113/59 (77) 113/59 111/59 (76) Pulse Ox 100 100 O2 Delivery Nasal Cannula Nasal Cannula O2 Flow Rate 2.0 2.0 01/26/17 01/26/17 01/26/17 01/26/17 12:24 13:38 14:32 16:00 Resp 16 Pulse Ox 100 98 O2 Delivery Nasal Cannula Nasal Cannula Nasal Cannula Nasal Cannula O2 Flow Rate 2.0 2.0 01/26/17 18:13 O2 Delivery Room Air Intake and Output 01/26/17 01/26/17 01/27/17 15:00 23:00 07:00 Intake Total 1220 ml Output Total 300 ml Balance 920 ml FARHAT MOLINA MD Jan 26, 2017 19:25
[2017-01-26] MEDS: ATORVASTATIN CALCIUM 40 MG TABLET. PO SCH (20:45)
[2017-01-26] MEDS: METOPROLOL SUCC 24HR ER 25 MG TAB.ER.24H. PO SCH (20:46)
[2017-01-27 03:00] VITALS: BP 123/55
[2017-01-27 04:40] LABS: CALCIUM 8.3 mg/dL (8.5-10.1); CREATININE 1.3 mg/dL (0.7-1.3); GFR 54.4; POTASSIUM 5.2 mmol/L (3.5-5.1)
[2017-01-27 04:42] LABS: BASO % 0 % (0-3); EOS % 0 % (0-3); HEMATOCRIT 23.4 % (39.0-53.0); HEMOGLOBIN 7.7 g/dL (13.0-17.5); LYMPH # 0.6 x10^3/uL (1.0-4.8); LYMPH % 6 % (24-48); MEAN CORPUSCULAR HEMOGLOBIN 31 pg (25-35); MEAN CORPUSCULAR HGB CONC 33 g/dL (31-37); MEAN CORPUSCULAR VOLUME 94 fL (79-100); MONO % 11 % (0-9); NEUT % 83 % (31-73); PLATELET COUNT 128 x10^3/uL (140-400); RED BLOOD COUNT 2.49 x10^6/uL (4.30-5.70); WHITE BLOOD COUNT 10.5 x10^3/uL (4.0-11.0)
[2017-01-27] MEDS: PANTOPRAZOLE 40 MG TABLET.DR. PO SCH (06:26)
[2017-01-27 07:00] VITALS: BP 129/61
[2017-01-27] MEDS: INSULIN ASPART 300 UNITS/3 ML INSULN.PEN SQ SCH ×3 (08:00→17:00)
[2017-01-27] MEDS: LACTOBACILLUS RHAMNOSUS GG 1 CAPSULE. PO SCH ×2 (09:31→21:50)
[2017-01-27] MEDS: DEXAMETHASONE SOD PHOS 4 MG/ML VIAL IV SCH ×2 (09:32→21:50)
[2017-01-27] MEDS: SENNOSIDES/DOCUSATE 8.6/50MG TABLET. PO SCH (09:32)
[2017-01-27] MEDS: CHOLECALCIFEROL (VITAMIN D3) 1,000 UNIT TABLET PO SCH (09:33)
[2017-01-27] MEDS: METOPROLOL SUCC 24HR ER 25 MG TAB.ER.24H. PO SCH ×2 (09:33→21:51)
[2017-01-27] MEDS: FOLIC ACID 1 MG TABLET. PO SCH (09:33)
[2017-01-27] MEDS: GABAPENTIN 300 MG CAPSULE. PO SCH ×3 (09:34→21:51)
[2017-01-27] MEDS: ASPIRIN ENTERIC COATED 81 MG TABLET.DR. PO SCH (09:35)
[2017-01-27] MEDS: oxyCODONE ER 15 MG TAB.ER.12H PO SCH ×2 (09:35→21:51)
[2017-01-27] MEDS: amLODIPine BESYLATE 5 MG TABLET PO SCH (09:36)
[2017-01-27] MEDS: POLYETHYLENE GLYCOL 3350 17 GM PACKET. PO SCH (09:36)
--- NOTE | 2017-01-27 10:07 | PDOC ---
PROGRESS NOTES Subjective Subjective No new complaints. Objective Objective Vital Signs Date Time Temp Pulse Resp B/P (MAP) Pulse Ox O2 Delivery O2 Flow Rate FiO2 01/27/17 09:36 68 129/61 01/27/17 09:35 20 Nasal Cannula 2.0 01/27/17 07:00 97.7 100 97.7 Physical Exam Physical Exam He is alert,supine in bed and in no distress.He continues with weakness of dorsiflexor muscles of both feet from neuropathy. 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 Comment Review of Relevant I have reviewed the following items bernadine (where applicable) has been applied. Labs Laboratory Tests Test 01/25/17 11:44 01/25/17 16:56 01/25/17 20:58 01/26/17 05:15 Glucose (Fingerstick) 120 mg/dL (70-99) 120 mg/dL (70-99) 149 mg/dL (70-99) White Blood Count 9.8 x10^3/uL (4.0-11.0) Red Blood Count 2.03 x10^6/uL (4.30-5.70) Hemoglobin 6.6 g/dL (13.0-17.5) Hematocrit 19.2 % (39.0-53.0) Mean Corpuscular Volume 94 fL (79-100) Mean Corpuscular Hemoglobin 32 pg (25-35) Mean Corpuscular Hemoglobin Concent 34 g/dL (31-37) Red Cell Distribution Width 17.1 % (11.5-14.5) Platelet Count 115 x10^3/uL (140-400) Neutrophils (%) (Auto) 79 % (31-73) Lymphocytes (%) (Auto) 6 % (24-48) Monocytes (%) (Auto) 15 % (0-9) Eosinophils (%) (Auto) 0 % (0-3) Basophils (%) (Auto) 0 % (0-3) Neutrophils # (Auto) 7.7 x10^3uL (1.8-7.7) Lymphocytes # (Auto) 0.6 x10^3/uL (1.0-4.8) Monocytes # (Auto) 1.5 x10^3/uL (0.0-1.1) Eosinophils # (Auto) 0.0 x10^3/uL (0.0-0.7) Basophils # (Auto) 0.0 x10^3/uL (0.0-0.2) Sodium Level 137 mmol/L (136-145) Potassium Level 4.3 mmol/L (3.5-5.1) Chloride Level 103 mmol/L (98-107) Carbon Dioxide Level 29 mmol/L (21-32) Anion Gap 5 (6-14) Blood Urea Nitrogen 41 mg/dL (8-26) Creatinine 1.4 mg/dL (0.7-1.3) Estimated GFR (Cockcroft-Gault) 50.0 Glucose Level 127 mg/dL (70-99) Calcium Level 8.0 mg/dL (8.5-10.1) Test 01/26/17 07:44 01/26/17 12:02 01/26/17 12:56 01/26/17 17:16 Glucose (Fingerstick) 118 mg/dL (70-99) 108 mg/dL (70-99) 148 mg/dL (70-99) White Blood Count 11.0 x10^3/uL (4.0-11.0) Red Blood Count 2.44 x10^6/uL (4.30-5.70) Hemoglobin 7.6 g/dL (13.0-17.5) Hematocrit 23.1 % (39.0-53.0) Mean Corpuscular Volume 95 fL (79-100) Mean Corpuscular Hemoglobin 31 pg (25-35) Mean Corpuscular Hemoglobin Concent 33 g/dL (31-37) Red Cell Distribution Width 17.2 % (11.5-14.5) Platelet Count 132 x10^3/uL (140-400) Test 01/26/17 21:35 01/27/17 03:40 01/27/17 07:45 Glucose (Fingerstick) 148 mg/dL (70-99) 105 mg/dL (70-99) White Blood Count 10.5 x10^3/uL (4.0-11.0) Red Blood Count 2.49 x10^6/uL (4.30-5.70) Hemoglobin 7.7 g/dL (13.0-17.5) Hematocrit 23.4 % (39.0-53.0) Mean Corpuscular Volume 94 fL (79-100) Mean Corpuscular Hemoglobin 31 pg (25-35) Mean Corpuscular Hemoglobin Concent 33 g/dL (31-37) Red Cell Distribution Width 17.0 % (11.5-14.5) Platelet Count 128 x10^3/uL (140-400) Neutrophils (%) (Auto) 83 % (31-73) Lymphocytes (%) (Auto) 6 % (24-48) Monocytes (%) (Auto) 11 % (0-9) Eosinophils (%) (Auto) 0 % (0-3) Basophils (%) (Auto) 0 % (0-3) Neutrophils # (Auto) 8.8 x10^3uL (1.8-7.7) Lymphocytes # (Auto) 0.6 x10^3/uL (1.0-4.8) Monocytes # (Auto) 1.1 x10^3/uL (0.0-1.1) Eosinophils # (Auto) 0.0 x10^3/uL (0.0-0.7) Basophils # (Auto) 0.0 x10^3/uL (0.0-0.2) Sodium Level 140 mmol/L (136-145) Potassium Level 5.2 mmol/L (3.5-5.1) Chloride Level 104 mmol/L (98-107) Carbon Dioxide Level 29 mmol/L (21-32) Anion Gap 7 (6-14) Blood Urea Nitrogen 40 mg/dL (8-26) Creatinine 1.3 mg/dL (0.7-1.3) Estimated GFR (Cockcroft-Gault) 54.4 Glucose Level 146 mg/dL (70-99) Calcium Level 8.3 mg/dL (8.5-10.1) Laboratory Tests Test 01/26/17 12:02 01/26/17 12:56 01/26/17 17:16 01/26/17 21:35 Glucose (Fingerstick) 108 mg/dL (70-99) 148 mg/dL (70-99) 148 mg/dL (70-99) White Blood Count 11.0 x10^3/uL (4.0-11.0) Red Blood Count 2.44 x10^6/uL (4.30-5.70) Hemoglobin 7.6 g/dL (13.0-17.5) Hematocrit 23.1 % (39.0-53.0) Mean Corpuscular Volume 95 fL (79-100) Mean Corpuscular Hemoglobin 31 pg (25-35) Mean Corpuscular Hemoglobin Concent 33 g/dL (31-37) Red Cell Distribution Width 17.2 % (11.5-14.5) Platelet Count 132 x10^3/uL (140-400) Test 01/27/17 03:40 01/27/17 07:45 White Blood Count 10.5 x10^3/uL (4.0-11.0) Red Blood Count 2.49 x10^6/uL (4.30-5.70) Hemoglobin 7.7 g/dL (13.0-17.5) Hematocrit 23.4 % (39.0-53.0) Mean Corpuscular Volume 94 fL (79-100) Mean Corpuscular Hemoglobin 31 pg (25-35) Mean Corpuscular Hemoglobin Concent 33 g/dL (31-37) Red Cell Distribution Width 17.0 % (11.5-14.5) Platelet Count 128 x10^3/uL (140-400) Neutrophils (%) (Auto) 83 % (31-73) Lymphocytes (%) (Auto) 6 % (24-48) Monocytes (%) (Auto) 11 % (0-9) Eosinophils (%) (Auto) 0 % (0-3) Basophils (%) (Auto) 0 % (0-3) Neutrophils # (Auto) 8.8 x10^3uL (1.8-7.7) Lymphocytes # (Auto) 0.6 x10^3/uL (1.0-4.8) Monocytes # (Auto) 1.1 x10^3/uL (0.0-1.1) Eosinophils # (Auto) 0.0 x10^3/uL (0.0-0.7) Basophils # (Auto) 0.0 x10^3/uL (0.0-0.2) Sodium Level 140 mmol/L (136-145) Potassium Level 5.2 mmol/L (3.5-5.1) Chloride Level 104 mmol/L (98-107) Carbon Dioxide Level 29 mmol/L (21-32) Anion Gap 7 (6-14) Blood Urea Nitrogen 40 mg/dL (8-26) Creatinine 1.3 mg/dL (0.7-1.3) Estimated GFR (Cockcroft-Gault) 54.4 Glucose Level 146 mg/dL (70-99) Calcium Level 8.3 mg/dL (8.5-10.1) Glucose (Fingerstick) 105 mg/dL (70-99) Microbiology 01/15/17 Blood Culture - Final, Complete NO GROWTH AFTER 5 DAYS Medications Current Medications Fentanyl Citrate (Fentanyl 2ml Vial) 50 mcg 1X ONCE IV Last administered on 21:52; Start 01/15/17 at 22:00; Stop 01/15/17 at 22:01; Status DC Sodium Chloride 1,000 ml @ 150 mls/hr 1X ONCE IV Last administered on 22:31; Start 01/15/17 at 22:00; Stop 01/16/17 at 04:39; Status DC Piperacillin Sod/ Tazobactam Sod 3.375 gm/Dextrose 50 ml @ 100 mls/hr 1X ONCE IV Last administered on 01/15/17 23:22; Start 01/15/17 at 23:30; Stop 01/15 at 23:59; Status DC Heparin Sodium (Porcine) (Heparin Sodium) 9,450 unit 1X ONCE IV Last administered on 01/15/17 23:30; Start 01/15/17 at 23:30; Stop 01/16/17 at 16 :41; Status DC Heparin Sodium/ Dextrose 500 ml @ 0 mls/hr CONT PRN IV SEE I/O RECORD Last administered on 01/16/17 16:26; Start 01/15/17 at 23:15; Stop 01/16/17 at 16 :41; Status DC Heparin Sodium (Porcine) (Heparin Sodium) 3,550 unit PRN Q6HRS PRN IV FOR UFH LEVEL LESS THAN 0.2; Start 01/15/17 at 23:15; Stop 01/16/17 at 16:41; Status DC Heparin Sodium (Porcine) (Heparin Sodium) 1,750 unit PRN Q6HRS PRN IV FOR UFH LEVEL 0.2 - 0.29; Start 01/15/17 at 23:15; Stop 01/16/17 at 16:41; Status DC Warfarin Sodium (Coumadin Per Pharmacy) 1 each PRN DAILY PRN MC PER PROTOCOL Last administered on 01/16/17 10:20; Start 01/15/17 at 23:15; Stop 01/16/17 at 16:39; Status DC Info (Anti-Coagulation Monitoring By Pharmacy) 1 each PRN DAILY PRN MC SEE COMMENTS Last administered on 01/16/17 10:17; Start 01/15/17 at 23:30; Stop 01/18/17 at 14:31; Status DC Ondansetron HCl (Zofran) 4 mg PRN Q8HRS PRN IV NAUSEA/VOMITING; Start at 23:15; Stop 01/16/17 at 23:14; Status DC Fentanyl Citrate (Fentanyl 2ml Vial) 50 mcg PRN Q2HR PRN IV SEVERE PAIN Last administered on 01/16/17 01:33; Start 01/15/17 at 23:15; Stop 01/16/17 at 02 :47; Status DC Piperacillin Sod/ Tazobactam Sod (Zosyn Per Pharmacy) 1 each PRN DAILY PRN MC SEE COMMENTS; Start 01/15/17 at 23:15; Stop 01/16/17 at 02:54; Status DC Sodium Chloride 1,000 ml @ 150 mls/hr 1X ONCE IV Last administered on 01:34; Start 01/15/17 at 23:45; Stop 01/16/17 at 06:24; Status DC Albuterol Sulfate (Ventolin Neb Soln) 2.5 mg PRN Q3HRS PRN NEB WHEEZING Last administered on 01/16/17 11:24; Start 01/15/17 at 23:30 Morphine Sulfate 2 mg 1X ONCE IV Last administered on 01/15/17 23:47; Start 01/16/17 at 00:00; Stop 01/16/17 at 00:01; Status DC Fentanyl Citrate (Fentanyl 2ml Vial) 75 mcg PRN Q2HR PRN IV SEVERE PAIN Last administered on 01/16/17 13:56; Start 01/16/17 at 02:45; Stop 01/16/17 at 16 :41; Status DC Piperacillin Sod/ Tazobactam Sod (Zosyn Per Pharmacy) 1 each PRN DAILY PRN MC SEE COMMENTS; Start 01/16/17 at 02:45; Stop 01/17/17 at 16:01; Status DC Piperacillin Sod/ Tazobactam Sod (Zosyn) 2.25 gm Q6HRS IVP Last administered on 01/17/17 12:01; Start 01/16/17 at 06:00; Stop 01/17/17 at 16:01; Status DC Info (Anti-Coagulation Monitoring By Pharmacy) 1 each PRN DAILY PRN MC SEE COMMENTS; Start 01/16/17 at 09:45; Status Cancel Warfarin Sodium (Coumadin) 5 mg 1X WARF ONCE PO ; Start 01/16/17 at 16:00; Stop 01/16/17 at 16:39; Status DC Lactobacillus Rhamnosus (Culturelle) 1 cap BID PO Last administered on 09:31; Start 01/16/17 at 21:00 Magnesium Sulfate/ Dextrose 50 ml @ 25 mls/hr 1X ONCE IV Last administered on 01/16/17 12:45; Start 01/16/17 at 11:30; Stop 01/16/17 at 13:29; Status DC Linezolid 300 ml @ 300 mls/hr Q12HR IV Last administered on 01/16/17 20:58; Start 01/16/17 at 12:00; Stop 01/17/17 at 08:14; Status DC Iohexol (Omnipaque 240 Mg/ml) 30 ml 1X ONCE PO ; Start 01/16/17 at 12:00; Stop 01/16/17 at 12:01; Status DC Info (Do NOT chart on this entry -- for MONITORING) 1 each PRN DAILY PRN MC SEE COMMENTS; Start 01/16/17 at 12:00; Stop 01/18/17 at 11:59; Status DC Magnesium Sulfate/ Dextrose 50 ml @ 25 mls/hr PRN DAILY PRN IV for Mag < 1.7 on am labs; Start 01/16/17 at 13:15 Metoprolol Succinate (Toprol Xl) 50 mg BID PO Last administered on 01/21/17 08 :11; Start 01/16/17 at 21:00; Stop 01/21/17 at 08:33; Status DC Sodium Chloride 1,000 ml @ 100 mls/hr Q10H IV Last administered on 01/18/17 05:45; Start 01/16/17 at 13:45; Stop 01/18/17 at 11:44; Status DC Aspirin (Charmaine Aspirin) 325 mg DAILYWBKFT PO Last administered on 01/19/17 08: 35; Start 01/17/17 at 08:00; Stop 01/19/17 at 09:49; Status DC Atorvastatin Calcium (Lipitor) 40 mg QHS PO Last administered on 01/26/17 20: 45; Start 01/16/17 at 21:00 Vitamin D (Vitamin D3) 2,000 unit DAILY PO Last administered on 01/27/17 09: 33; Start 01/17/17 at 09:00 Clonidine HCl (Catapres) 0.1 mg BID PO Last administered on 01/19/17 08:35; Start 01/16/17 at 21:00; Stop 01/19/17 at 09:52; Status DC Folic Acid (Folic Acid) 1 mg DAILY PO Last administered on 01/27/17 09:33; Start 01/17/17 at 09:00 Loperamide HCl (Imodium) 2 mg Q2H PRN PO diarrhea; Start 01/16/17 at 16:45 Metoprolol Succinate (Toprol Xl) 100 mg BID PO ; Start 01/16/17 at 21:00; Status UNV Gabapentin (Neurontin) 600 mg TID PO Last administered on 01/27/17 09:34; Start 01/16/17 at 21:00 Pantoprazole Sodium (Protonix) 40 mg DAILYAC PO Last administered on 06:26; Start 01/17/17 at 07:30 Insulin Aspart (NovoLOG) 0-9 UNITS TIDWMEALS SQ Last administered on 01/22/17 17:00; Start 01/16/17 at 17:00 Dextrose (Dextrose 50%-Water Syringe) 12.5 gm PRN Q15MIN PRN IV SEE COMMENTS; Start 01/16/17 at 16:45 Dexamethasone Sodium Phosphate (Decadron) 10 mg 1X ONCE IV Last administered on 01/16/17 17:05; Start 01/16/17 at 16:45; Stop 01/16/17 at 16:46; Status DC Dexamethasone Sodium Phosphate (Decadron) 4 mg Q6HRS IV Last administered on 05:58; Start 01/17/17 at 00:00; Stop 01/18/17 at 15:31; Status DC Morphine Sulfate 2 mg PRN Q2HR PRN IV PAIN Last administered on 01/24/17 19:52 ; Start 01/16/17 at 16:45; Stop 01/24/17 at 22:39; Status DC Oxycodone/ Acetaminophen (Percocet 10/325) 1 tab PRN Q4HRS PRN PO pain Last administered on 01/26/17 18:13; Start 01/16/17 at 16:45 Heparin Sodium (Porcine) (Heparin Sq) 5,000 unit Q8HRS SQ Last administered on 01/23/17 06:00; Start 01/16/17 at 22:00; Stop 01/23/17 at 13:16; Status DC Diazepam (Valium) 5 mg PRN Q6HRS PRN IV SEIZURES; Start 01/16/17 at 18:30; Status Cancel Diazepam (Valium) 5 mg PRN Q6HRS PRN PO TREMORS Last administered on 01/24/17 21:22; Start 01/16/17 at 18:45 Fentanyl Citrate (Fentanyl 2ml Vial) 100 mcg STK-MED ONCE .ROUTE ; Start at 10:08; Stop 01/17/17 at 10:09; Status DC Midazolam HCl (Versed) 2 mg STK-MED ONCE .ROUTE ; Start 01/17/17 at 10:08; Stop 01/17/17 at 10:09; Status DC Lidocaine/Sodium Bicarbonate (Buffered Lidocaine 1%) 20 ml 1X ONCE IJ Last administered on 01/17/17 10:51; Start 01/17/17 at 10:15; Stop 01/17/17 at 10:16 ; Status DC Midazolam HCl (Versed) 2 mg 1X ONCE IV Last administered on 01/17/17 10:52; Start 01/17/17 at 10:15; Stop 01/17/17 at 10:16; Status DC Fentanyl Citrate (Fentanyl 2ml Vial) 100 mcg 1X ONCE IV Last administered on 01/17/17 10:52; Start 01/17/17 at 10:15; Stop 01/17/17 at 10:16; Status DC Lidocaine/Sodium Bicarbonate (Buffered Lidocaine 1%) 20 ml STK-MED ONCE IJ ; Start 01/17/17 at 10:14; Stop 01/17/17 at 10:15; Status DC Piperacillin Sod/ Tazobactam Sod (Zosyn) 3.375 gm Q6HRS IVP Last administered on 01/18/17 06:00; Start 01/17/17 at 18:00; Stop 01/18/17 at 10:42; Status DC Dexamethasone Sodium Phosphate (Decadron) 4 mg Q12HR IV Last administered on 09:32; Start 01/18/17 at 21:00 Aspirin (Ecotrin) 81 mg DAILYWBKFT PO Last administered on 01/27/17 09:35; Start 01/20/17 at 08:00 Amlodipine Besylate (Norvasc) 10 mg DAILY PO Last administered on 01/24/17 09: 35; Start 01/19/17 at 10:00; Stop 01/25/17 at 12:44; Status DC Oxycodone HCl (OxyCONTIN) 30 mg Q12HR PO Last administered on 01/27/17 09:35 ; Start 01/19/17 at 11:45 Senna/Docusate Sodium (Senna Plus) 2 tab DAILY PO Last administered on 09:32; Start 01/19/17 at 12:00 Gadobutrol (Gadavist) 10 mmol 1X ONCE IV ; Start 01/19/17 at 15:45; Stop at 15:46; Status DC Sodium Chloride 1,000 ml @ 75 mls/hr [id number] IV Last administered on 02:12; Start 01/20/17 at 11:15; Stop 01/21/17 at 18:06; Status DC Polyethylene Glycol (miraLAX PACKET) 17 gm DAILY PO Last administered on 09:36; Start 01/20/17 at 15:00 Metoprolol Succinate (Toprol Xl) 50 mg DAILY PO Last administered on 08:25; Start 01/21/17 at 09:00; Stop 01/26/17 at 09:48; Status DC Bacitracin 20609 unit/Sodium Chloride 1,000 ml @ 1,000 mls/hr 1X PERIOP ONCE IRR Last administered on 01/24/17 12:59; Start 01/24/17 at 06:00; Stop at 06:59; Status DC Ondansetron HCl (Zofran) 4 mg PRN Q6HRS PRN IV NAUSEA/VOMITING; Start 01/24/17 at 07:00; Stop 01/25/17 at 06:59; Status DC Fentanyl Citrate (Fentanyl 2ml Vial) 25 mcg PRN Q5MIN PRN IV MILD PAIN; Start 01/24/17 at 07:00; Stop 01/24/17 at 22:48; Status DC Fentanyl Citrate (Fentanyl 2ml Vial) 50 mcg PRN Q5MIN PRN IV MODERATE PAIN Last administered on 01/24/17 19:01; Start 01/24/17 at 07:00; Stop 01/24/17 at 22:48; Status DC Morphine Sulfate 1 mg PRN Q10MIN PRN IV SEVERE PAIN; Start 01/24/17 at 07:00; Stop 01/24/17 at 22:48; Status DC Ringer's Solution 1,000 ml @ 30 mls/hr Q24H IV Last administered on 01/24/17 11:40; Start 01/24/17 at 07:00; Stop 01/24/17 at 18:59; Status DC Lidocaine HCl (Xylocaine-Mpf 1% Vial) 2 ml PRN 1X PRN ID IV START; Start at 07:00; Stop 01/25/17 at 06:59; Status DC Hydromorphone HCl (Dilaudid) 0.5 mg PRN Q10MIN PRN IV SEV PAIN, Second choice; Start 01/24/17 at 07:00; Stop 01/24/17 at 22:48; Status DC Prochlorperazine Edisylate (Compazine) 5 mg PACU PRN PRN IV NAUSEA, MRX1; Start 01/24/17 at 07:00; Stop 01/24/17 at 22:48; Status DC Cefazolin Sodium/ Dextrose 50 ml @ 100 mls/hr 1X PREOP PRN IV PRE-OP Last administered on 01/24/17 12:25; Start 01/23/17 at 13:15; Stop 01/24/17 at 18:00 ; Status DC Gelatin (Gelfoam Size 100) 1 each STK-MED ONCE .ROUTE Last administered on 12:59; Start 01/24/17 at 07:30; Stop 01/24/17 at 07:31; Status DC Bupivacaine HCl/ Epinephrine Bitart (Sensorcain-Mpf Epi 0.5%-[id number]) 30 ml STK -MED ONCE .ROUTE Last administered on 01/24/17 12:59; Start 01/24/17 at 07:31 ; Stop 01/24/17 at 07:32; Status DC Ketorolac Tromethamine (Toradol For Or Only) 60 mg STK-MED ONCE .ROUTE Last administered on 01/24/17 12:59; Start 01/24/17 at 07:31; Stop 01/24/17 at 07:32 ; Status DC Thrombin 20,000 unit STK-MED ONCE TP Last administered on 01/24/17 12:59; Start 01/24/17 at 07:31; Stop 01/24/17 at 07:32; Status DC Midazolam HCl (Versed) 2 mg STK-MED ONCE .ROUTE ; Start 01/24/17 at 11:05; Stop 01/24/17 at 11:06; Status DC Fentanyl Citrate (Fentanyl 5ml Vial) 250 mcg STK-MED ONCE .ROUTE ; Start at 11:05; Stop 01/24/17 at 11:06; Status DC Rocuronium [place] (Zemuron) 50 mg STK-MED ONCE .ROUTE ; Start 01/24/17 at 11:05 ; Stop 01/24/17 at 11:06; Status DC Remifentanil HCl (Ultiva) 2 mg STK-MED ONCE IV ; Start 01/24/17 at 11:05; Stop 01/24/17 at 11:06; Status DC Propofol 50 ml @ As Directed STK-MED ONCE IV ; Start 01/24/17 at 11:09; Stop at 11:10; Status DC Multi-Ingred Cream/Lotion/Oil/ Oint (Artificial Tears Eye Oint) 7 jose a STK-MED ONCE .ROUTE ; Start 01/24/17 at 11:09; Stop 01/24/17 at 11:10; Status DC Propofol 0 ml @ As Directed STK-MED ONCE IV ; Start 01/24/17 at 11:10; Stop 01/24/17 at 11:11; Status DC Lidocaine HCl (Lidocaine Pf 2% Vial) 5 ml STK-MED ONCE .ROUTE ; Start 01/24/17 at 11:10; Stop 01/24/17 at 11:11; Status DC Dexamethasone Sodium Phosphate (Decadron) 20 mg STK-MED ONCE .ROUTE ; Start 01/24/17 at 11:10; Stop 01/24/17 at 11:11; Status DC Ondansetron HCl (Zofran) 4 mg STK-MED ONCE .ROUTE ; Start 01/24/17 at 11:10; Stop 01/24/17 at 11:11; Status DC Desflurane (Suprane) 90 ml STK-MED ONCE IH ; Start 01/24/17 at 11:10; Stop 01/24 at 11:11; Status DC Sodium Chloride (Sodium Chloride) 50 ml STK-MED ONCE IJ ; Start 01/24/17 at 11: 11; Stop 01/24/17 at 11:12; Status DC Phenylephrine HCl 1 mg STK-MED ONCE IV ; Start 01/24/17 at 12:02; Stop 01/24/17 at 12:03; Status DC Glycopyrrolate (Robinul) 1 mg STK-MED ONCE .ROUTE ; Start 01/24/17 at 12:28; Stop 01/24/17 at 12:29; Status DC Neostigmine Methylsulfate 5 mg STK-MED ONCE .ROUTE ; Start 01/24/17 at 12:28; Stop 01/24/17 at 12:29; Status DC Ephedrine Sulfate (Akovaz) 50 mg STK-MED ONCE .ROUTE ; Start 01/24/17 at 14:05; Stop 01/24/17 at 14:06; Status DC Albumin Human 500 ml @ As Directed STK-MED ONCE IV ; Start 01/24/17 at 14:07; Stop 01/24/17 at 14:08; Status DC Remifentanil HCl (Ultiva) 2 mg STK-MED ONCE IV ; Start 01/24/17 at 14:55; Stop 01/24/17 at 14:56; Status DC Propofol 50 ml @ As Directed STK-MED ONCE IV ; Start 01/24/17 at 14:57; Stop at 14:58; Status DC Propofol 20 ml @ As Directed STK-MED ONCE IV ; Start 01/24/17 at 14:57; Stop at 14:58; Status DC Propofol 20 ml @ As Directed STK-MED ONCE IV ; Start 01/24/17 at 15:09; Stop at 15:10; Status DC Propofol 50 ml @ As Directed STK-MED ONCE IV ; Start 01/24/17 at 15:50; Stop at 15:51; Status DC Cefazolin Sodium/ Dextrose 50 ml @ As Directed STK-MED ONCE IV ; Start 01/24/17 at 16:20; Stop 01/24/17 at 16:21; Status DC Phenylephrine HCl 1 mg STK-MED ONCE IV ; Start 01/24/17 at 16:54; Stop 01/24/17 at 16:55; Status DC Propofol 50 ml @ As Directed STK-MED ONCE IV ; Start 01/24/17 at 17:10; Stop at 17:11; Status DC Remifentanil HCl (Ultiva) 2 mg STK-MED ONCE IV ; Start 01/24/17 at 17:10; Stop 01/24/17 at 17:11; Status DC Propofol 50 ml @ As Directed STK-MED ONCE IV ; Start 01/24/17 at 17:30; Stop at 17:31; Status DC Hydromorphone HCl (Dilaudid) 2 mg STK-MED ONCE .ROUTE ; Start 01/24/17 at 18:07 ; Stop 01/24/17 at 18:08; Status DC Fentanyl Citrate (Fentanyl 2ml Vial) 100 mcg STK-MED ONCE .ROUTE ; Start at 18:07; Stop 01/24/17 at 18:08; Status DC Morphine Sulfate 2 mg PRN Q2HR PRN IV SEVERE PAIN Last administered on t 03:38; Start 01/24/17 at 22:45 Amlodipine Besylate (Norvasc) 5 mg DAILY PO Last administered on 01/27/17 09: 36; Start 01/26/17 at 09:00 Sodium Chloride 1,000 ml @ 75 mls/hr 1X ONCE IV Last administered on 13:25; Start 01/25/17 at 12:45; Stop 01/26/17 at 02:04; Status DC Metoprolol Succinate (Toprol Xl) 25 mg BID PO Last administered on 01/27/17 09:33; Start 01/26/17 at 21:00 Active Scripts Active Reported Imodium A-D (Loperamide HCl) 2 Mg Capsule 2 Mg PO Aspirin 325 Mg Tablet 1 Tab PO DAILY Vitamin D3 (Cholecalciferol (Vitamin D3)) 1,000 Unit Tablet 2,000 Unit PO Vicodin Es 7.5-300 Mg Tablet (Hydrocodone Bit/Acetaminophen) 1 Each Tablet 1 Each PO Q6H PRN Humira (Adalimumab) 40 Mg/0.8 Ml Pen.ij.kit 1 Syr SQ Q2WKS Folbic Rf Tablet (B12/Levomefolate Calcium/B-6) 1 Each Tablet 1 Each PO Omeprazole 40 Mg Capsule.dr 1 Cap PO DAILY Cholestyramine Packet (Cholestyramine (With Sugar)) 4 Gm Powd.pack 4 Gm PO Gabapentin 600 Mg Tablet 600 Mg PO TID Folic Acid 1 Mg Tablet 1 Tab PO DAILY Clonidine Hcl 0.1 Mg Tablet 0.1 Mg PO BID Metformin Hcl 1,000 Mg Tablet 1,000 Mg PO BIDWMEALS Atorvastatin Calcium 40 Mg Tablet 1 Tab PO DAILY Metoprolol Succinate ( Xl ) (Metoprolol Succinate) 100 Mg Tab.er.24h 100 Mg PO BID Vitals/I & O Vital Sign - Last 24 Hours 01/26/17 01/26/17 01/26/17 01/26/17 10:13 11:00 13:38 14:32 Temp 98.3 98.3 Pulse 55 65 Resp 14 12 B/P (MAP) 113/59 111/59 (76) Pulse Ox 100 98 O2 Delivery Nasal Cannula Nasal Cannula Nasal Cannula O2 Flow Rate 2.0 2.0 01/26/17 01/26/17 01/26/17 01/26/17 15:00 18:13 19:00 19:30 Temp 98.1 98.4 98.1 98.4 Pulse 62 58 Resp 18 16 16 B/P (MAP) 143/79 (100) 124/58 (80) Pulse Ox 98 99 98 O2 Delivery Nasal Cannula Room Air Nasal Cannula O2 Flow Rate 2.0 2.0 01/26/17 01/26/17 01/26/17 01/26/17 20:00 20:45 20:46 23:00 Temp 97.7 97.7 Pulse 67 70 Resp 18 16 B/P (MAP) 118/67 133/65 (87) Pulse Ox 98 97 O2 Delivery Nasal Cannula Nasal Cannula O2 Flow Rate 2.0 2.0 01/27/17 01/27/17 01/27/17 01/27/17 00:45 03:00 07:00 09:33 Temp 97.7 97.7 97.7 97.7 Pulse 65 68 68 Resp 16 18 16 B/P (MAP) 123/55 (77) 129/61 (83) 129/61 Pulse Ox 98 99 100 O2 Delivery Nasal Cannula Nasal Cannula O2 Flow Rate 2.0 2.0 01/27/17 01/27/17 09:35 09:36 Pulse 68 Resp 20 B/P (MAP) 129/61 O2 Delivery Nasal Cannula O2 Flow Rate 2.0 FARHAT MOLINA MD Jan 27, 2017 10:07
[2017-01-27 11:00] VITALS: BP 131/50
--- NOTE | 2017-01-27 12:20 | PDOC ---
PROGRESS NOTES Chief Complaint Chief Complaint L3 spinal mass: highly suspicious for malignancy or L3 Chance fracture?. Back pain Syncope Renal mass vs complex cyst ANDREINA on CKD DM2 Anemia Dyspnea PAF CAD: hx mult stents Crohn's Alcoholism Azotemia History of Present Illness History of Present Illness Pt seen at bedside on the medical floor. He is AOCx3. He had an L1-L5 vertebral fusion and hematoma evacuation. Initial worry for malignant lesion of vertebra appears to be negative based on intraoperative findings. Pt has no c /o ongoing pain during our conversation. Pt is being followed by Nepho re: renal insufficiency, ID re: positive lactic acid, Cardio re: CHF, Heme and Onc re: spinal cancer, Radiation Onc re: Spinal cancer, Neurosurg re: L3 malignant lesion. Pt is getting up today for the first time with PT. Continue wound care. Will continue to monitor. Vitals Vitals Vital Signs Date Time Temp Pulse Resp B/P (MAP) Pulse Ox O2 Delivery O2 Flow Rate FiO2 01/27/17 11:00 97.9 50 18 131/50 (77) 100 97.9 01/27/17 09:35 Nasal Cannula 2.0 Physical Exam General: Alert, Oriented X3, Cooperative, No acute distress Heart: Regular rate, Normal S1, Normal S2, Other (Systolic ejection murmur 3/6) Lungs: Clear Abdomen: Normal bowel sounds, Soft, No tenderness Extremities: No clubbing, No edema Skin: No rashes, No breakdown, Other (Dressing changed, ricky intact, drain d /c'd) Labs LABS Laboratory Tests Test 01/26/17 12:56 01/26/17 17:16 01/26/17 21:35 01/27/17 03:40 White Blood Count 11.0 x10^3/uL (4.0-11.0) 10.5 x10^3/uL (4.0-11.0) Red Blood Count 2.44 x10^6/uL (4.30-5.70) 2.49 x10^6/uL (4.30-5.70) Hemoglobin 7.6 g/dL (13.0-17.5) 7.7 g/dL (13.0-17.5) Hematocrit 23.1 % (39.0-53.0) 23.4 % (39.0-53.0) Mean Corpuscular Volume 95 fL (79-100) 94 fL (79-100) Mean Corpuscular Hemoglobin 31 pg (25-35) 31 pg (25-35) Mean Corpuscular Hemoglobin Concent 33 g/dL (31-37) 33 g/dL (31-37) Red Cell Distribution Width 17.2 % (11.5-14.5) 17.0 % (11.5-14.5) Platelet Count 132 x10^3/uL (140-400) 128 x10^3/uL (140-400) Glucose (Fingerstick) 148 mg/dL (70-99) 148 mg/dL (70-99) Neutrophils (%) (Auto) 83 % (31-73) Lymphocytes (%) (Auto) 6 % (24-48) Monocytes (%) (Auto) 11 % (0-9) Eosinophils (%) (Auto) 0 % (0-3) Basophils (%) (Auto) 0 % (0-3) Neutrophils # (Auto) 8.8 x10^3uL (1.8-7.7) Lymphocytes # (Auto) 0.6 x10^3/uL (1.0-4.8) Monocytes # (Auto) 1.1 x10^3/uL (0.0-1.1) Eosinophils # (Auto) 0.0 x10^3/uL (0.0-0.7) Basophils # (Auto) 0.0 x10^3/uL (0.0-0.2) Sodium Level 140 mmol/L (136-145) Potassium Level 5.2 mmol/L (3.5-5.1) Chloride Level 104 mmol/L (98-107) Carbon Dioxide Level 29 mmol/L (21-32) Anion Gap 7 (6-14) Blood Urea Nitrogen 40 mg/dL (8-26) Creatinine 1.3 mg/dL (0.7-1.3) Estimated GFR (Cockcroft-Gault) 54.4 Glucose Level 146 mg/dL (70-99) Calcium Level 8.3 mg/dL (8.5-10.1) Test 01/27/17 07:45 01/27/17 11:19 Glucose (Fingerstick) 105 mg/dL (70-99) 135 mg/dL (70-99) Review of Systems Review of Systems Pt complains of minor pain and fatigue Assessment and Plan Assessmemt and Plan Problems Medical Problems: (1) Elevated d-dimer Status: Acute (2) Elevated serum creatinine Status: Acute (3) Hypoxia Status: Acute (4) Lactic acidosis Status: Acute (5) 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 Back pain Syncope Renal mass vs complex cyst ANDREINA on CKD DM2 Anemia Dyspnea PAF CAD: hx mult stents Crohn's Alcoholism Azotemia Plan: Continue home meds PT/OT Recheck labs Appreciate subspecialty input Continue wound care Problems: Comment Review of Relevant I have reviewed the following items bernadine (where applicable) has been applied. Labs Laboratory Tests Test 01/25/17 16:56 01/25/17 20:58 01/26/17 05:15 01/26/17 07:44 Glucose (Fingerstick) 120 mg/dL (70-99) 149 mg/dL (70-99) 118 mg/dL (70-99) White Blood Count 9.8 x10^3/uL (4.0-11.0) Red Blood Count 2.03 x10^6/uL (4.30-5.70) Hemoglobin 6.6 g/dL (13.0-17.5) Hematocrit 19.2 % (39.0-53.0) Mean Corpuscular Volume 94 fL (79-100) Mean Corpuscular Hemoglobin 32 pg (25-35) Mean Corpuscular Hemoglobin Concent 34 g/dL (31-37) Red Cell Distribution Width 17.1 % (11.5-14.5) Platelet Count 115 x10^3/uL (140-400) Neutrophils (%) (Auto) 79 % (31-73) Lymphocytes (%) (Auto) 6 % (24-48) Monocytes (%) (Auto) 15 % (0-9) Eosinophils (%) (Auto) 0 % (0-3) Basophils (%) (Auto) 0 % (0-3) Neutrophils # (Auto) 7.7 x10^3uL (1.8-7.7) Lymphocytes # (Auto) 0.6 x10^3/uL (1.0-4.8) Monocytes # (Auto) 1.5 x10^3/uL (0.0-1.1) Eosinophils # (Auto) 0.0 x10^3/uL (0.0-0.7) Basophils # (Auto) 0.0 x10^3/uL (0.0-0.2) Sodium Level 137 mmol/L (136-145) Potassium Level 4.3 mmol/L (3.5-5.1) Chloride Level 103 mmol/L (98-107) Carbon Dioxide Level 29 mmol/L (21-32) Anion Gap 5 (6-14) Blood Urea Nitrogen 41 mg/dL (8-26) Creatinine 1.4 mg/dL (0.7-1.3) Estimated GFR (Cockcroft-Gault) 50.0 Glucose Level 127 mg/dL (70-99) Calcium Level 8.0 mg/dL (8.5-10.1) Test 01/26/17 12:02 01/26/17 12:56 01/26/17 17:16 01/26/17 21:35 Glucose (Fingerstick) 108 mg/dL (70-99) 148 mg/dL (70-99) 148 mg/dL (70-99) White Blood Count 11.0 x10^3/uL (4.0-11.0) Red Blood Count 2.44 x10^6/uL (4.30-5.70) Hemoglobin 7.6 g/dL (13.0-17.5) Hematocrit 23.1 % (39.0-53.0) Mean Corpuscular Volume 95 fL (79-100) Mean Corpuscular Hemoglobin 31 pg (25-35) Mean Corpuscular Hemoglobin Concent 33 g/dL (31-37) Red Cell Distribution Width 17.2 % (11.5-14.5) Platelet Count 132 x10^3/uL (140-400) Test 01/27/17 03:40 01/27/17 07:45 01/27/17 11:19 White Blood Count 10.5 x10^3/uL (4.0-11.0) Red Blood Count 2.49 x10^6/uL (4.30-5.70) Hemoglobin 7.7 g/dL (13.0-17.5) Hematocrit 23.4 % (39.0-53.0) Mean Corpuscular Volume 94 fL (79-100) Mean Corpuscular Hemoglobin 31 pg (25-35) Mean Corpuscular Hemoglobin Concent 33 g/dL (31-37) Red Cell Distribution Width 17.0 % (11.5-14.5) Platelet Count 128 x10^3/uL (140-400) Neutrophils (%) (Auto) 83 % (31-73) Lymphocytes (%) (Auto) 6 % (24-48) Monocytes (%) (Auto) 11 % (0-9) Eosinophils (%) (Auto) 0 % (0-3) Basophils (%) (Auto) 0 % (0-3) Neutrophils # (Auto) 8.8 x10^3uL (1.8-7.7) Lymphocytes # (Auto) 0.6 x10^3/uL (1.0-4.8) Monocytes # (Auto) 1.1 x10^3/uL (0.0-1.1) Eosinophils # (Auto) 0.0 x10^3/uL (0.0-0.7) Basophils # (Auto) 0.0 x10^3/uL (0.0-0.2) Sodium Level 140 mmol/L (136-145) Potassium Level 5.2 mmol/L (3.5-5.1) Chloride Level 104 mmol/L (98-107) Carbon Dioxide Level 29 mmol/L (21-32) Anion Gap 7 (6-14) Blood Urea Nitrogen 40 mg/dL (8-26) Creatinine 1.3 mg/dL (0.7-1.3) Estimated GFR (Cockcroft-Gault) 54.4 Glucose Level 146 mg/dL (70-99) Calcium Level 8.3 mg/dL (8.5-10.1) Glucose (Fingerstick) 105 mg/dL (70-99) 135 mg/dL (70-99) Laboratory Tests Test 01/26/17 12:56 01/26/17 17:16 01/26/17 21:35 01/27/17 03:40 White Blood Count 11.0 x10^3/uL (4.0-11.0) 10.5 x10^3/uL (4.0-11.0) Red Blood Count 2.44 x10^6/uL (4.30-5.70) 2.49 x10^6/uL (4.30-5.70) Hemoglobin 7.6 g/dL (13.0-17.5) 7.7 g/dL (13.0-17.5) Hematocrit 23.1 % (39.0-53.0) 23.4 % (39.0-53.0) Mean Corpuscular Volume 95 fL (79-100) 94 fL (79-100) Mean Corpuscular Hemoglobin 31 pg (25-35) 31 pg (25-35) Mean Corpuscular Hemoglobin Concent 33 g/dL (31-37) 33 g/dL (31-37) Red Cell Distribution Width 17.2 % (11.5-14.5) 17.0 % (11.5-14.5) Platelet Count 132 x10^3/uL (140-400) 128 x10^3/uL (140-400) Glucose (Fingerstick) 148 mg/dL (70-99) 148 mg/dL (70-99) Neutrophils (%) (Auto) 83 % (31-73) Lymphocytes (%) (Auto) 6 % (24-48) Monocytes (%) (Auto) 11 % (0-9) Eosinophils (%) (Auto) 0 % (0-3) Basophils (%) (Auto) 0 % (0-3) Neutrophils # (Auto) 8.8 x10^3uL (1.8-7.7) Lymphocytes # (Auto) 0.6 x10^3/uL (1.0-4.8) Monocytes # (Auto) 1.1 x10^3/uL (0.0-1.1) Eosinophils # (Auto) 0.0 x10^3/uL (0.0-0.7) Basophils # (Auto) 0.0 x10^3/uL (0.0-0.2) Sodium Level 140 mmol/L (136-145) Potassium Level 5.2 mmol/L (3.5-5.1) Chloride Level 104 mmol/L (98-107) Carbon Dioxide Level 29 mmol/L (21-32) Anion Gap 7 (6-14) Blood Urea Nitrogen 40 mg/dL (8-26) Creatinine 1.3 mg/dL (0.7-1.3) Estimated GFR (Cockcroft-Gault) 54.4 Glucose Level 146 mg/dL (70-99) Calcium Level 8.3 mg/dL (8.5-10.1) Test 01/27/17 07:45 01/27/17 11:19 Glucose (Fingerstick) 105 mg/dL (70-99) 135 mg/dL (70-99) Microbiology 01/15/17 Blood Culture - Final, Complete NO GROWTH AFTER 5 DAYS Medications Current Medications Fentanyl Citrate (Fentanyl 2ml Vial) 50 mcg 1X ONCE IV Last administered on 21:52; Start 01/15/17 at 22:00; Stop 01/15/17 at 22:01; Status DC Sodium Chloride 1,000 ml @ 150 mls/hr 1X ONCE IV Last administered on 22:31; Start 01/15/17 at 22:00; Stop 01/16/17 at 04:39; Status DC Piperacillin Sod/ Tazobactam Sod 3.375 gm/Dextrose 50 ml @ 100 mls/hr 1X ONCE IV Last administered on 01/15/17 23:22; Start 01/15/17 at 23:30; Stop 01/15 at 23:59; Status DC Heparin Sodium (Porcine) (Heparin Sodium) 9,450 unit 1X ONCE IV Last administered on 01/15/17 23:30; Start 01/15/17 at 23:30; Stop 01/16/17 at 16 :41; Status DC Heparin Sodium/ Dextrose 500 ml @ 0 mls/hr CONT PRN IV SEE I/O RECORD Last administered on 01/16/17 16:26; Start 01/15/17 at 23:15; Stop 01/16/17 at 16 :41; Status DC Heparin Sodium (Porcine) (Heparin Sodium) 3,550 unit PRN Q6HRS PRN IV FOR UFH LEVEL LESS THAN 0.2; Start 01/15/17 at 23:15; Stop 01/16/17 at 16:41; Status DC Heparin Sodium (Porcine) (Heparin Sodium) 1,750 unit PRN Q6HRS PRN IV FOR UFH LEVEL 0.2 - 0.29; Start 01/15/17 at 23:15; Stop 01/16/17 at 16:41; Status DC Warfarin Sodium (Coumadin Per Pharmacy) 1 each PRN DAILY PRN MC PER PROTOCOL Last administered on 01/16/17 10:20; Start 01/15/17 at 23:15; Stop 01/16/17 at 16:39; Status DC Info (Anti-Coagulation Monitoring By Pharmacy) 1 each PRN DAILY PRN MC SEE COMMENTS Last administered on 01/16/17 10:17; Start 01/15/17 at 23:30; Stop 01/18/17 at 14:31; Status DC Ondansetron HCl (Zofran) 4 mg PRN Q8HRS PRN IV NAUSEA/VOMITING; Start at 23:15; Stop 01/16/17 at 23:14; Status DC Fentanyl Citrate (Fentanyl 2ml Vial) 50 mcg PRN Q2HR PRN IV SEVERE PAIN Last administered on 01/16/17 01:33; Start 01/15/17 at 23:15; Stop 01/16/17 at 02 :47; Status DC Piperacillin Sod/ Tazobactam Sod (Zosyn Per Pharmacy) 1 each PRN DAILY PRN MC SEE COMMENTS; Start 01/15/17 at 23:15; Stop 01/16/17 at 02:54; Status DC Sodium Chloride 1,000 ml @ 150 mls/hr 1X ONCE IV Last administered on 01:34; Start 01/15/17 at 23:45; Stop 01/16/17 at 06:24; Status DC Albuterol Sulfate (Ventolin Neb Soln) 2.5 mg PRN Q3HRS PRN NEB WHEEZING Last administered on 01/16/17 11:24; Start 01/15/17 at 23:30 Morphine Sulfate 2 mg 1X ONCE IV Last administered on 01/15/17 23:47; Start 01/16/17 at 00:00; Stop 01/16/17 at 00:01; Status DC Fentanyl Citrate (Fentanyl 2ml Vial) 75 mcg PRN Q2HR PRN IV SEVERE PAIN Last administered on 01/16/17 13:56; Start 01/16/17 at 02:45; Stop 01/16/17 at 16 :41; Status DC Piperacillin Sod/ Tazobactam Sod (Zosyn Per Pharmacy) 1 each PRN DAILY PRN MC SEE COMMENTS; Start 01/16/17 at 02:45; Stop 01/17/17 at 16:01; Status DC Piperacillin Sod/ Tazobactam Sod (Zosyn) 2.25 gm Q6HRS IVP Last administered on 01/17/17 12:01; Start 01/16/17 at 06:00; Stop 01/17/17 at 16:01; Status DC Info (Anti-Coagulation Monitoring By Pharmacy) 1 each PRN DAILY PRN MC SEE COMMENTS; Start 01/16/17 at 09:45; Status Cancel Warfarin Sodium (Coumadin) 5 mg 1X WARF ONCE PO ; Start 01/16/17 at 16:00; Stop 01/16/17 at 16:39; Status DC Lactobacillus Rhamnosus (Culturelle) 1 cap BID PO Last administered on 09:31; Start 01/16/17 at 21:00 Magnesium Sulfate/ Dextrose 50 ml @ 25 mls/hr 1X ONCE IV Last administered on 01/16/17 12:45; Start 01/16/17 at 11:30; Stop 01/16/17 at 13:29; Status DC Linezolid 300 ml @ 300 mls/hr Q12HR IV Last administered on 01/16/17 20:58; Start 01/16/17 at 12:00; Stop 01/17/17 at 08:14; Status DC Iohexol (Omnipaque 240 Mg/ml) 30 ml 1X ONCE PO ; Start 01/16/17 at 12:00; Stop 01/16/17 at 12:01; Status DC Info (Do NOT chart on this entry -- for MONITORING) 1 each PRN DAILY PRN MC SEE COMMENTS; Start 01/16/17 at 12:00; Stop 01/18/17 at 11:59; Status DC Magnesium Sulfate/ Dextrose 50 ml @ 25 mls/hr PRN DAILY PRN IV for Mag < 1.7 on am labs; Start 01/16/17 at 13:15 Metoprolol Succinate (Toprol Xl) 50 mg BID PO Last administered on 01/21/17 08 :11; Start 01/16/17 at 21:00; Stop 01/21/17 at 08:33; Status DC Sodium Chloride 1,000 ml @ 100 mls/hr Q10H IV Last administered on 01/18/17 05:45; Start 01/16/17 at 13:45; Stop 01/18/17 at 11:44; Status DC Aspirin (Charmaine Aspirin) 325 mg DAILYWBKFT PO Last administered on 01/19/17 08: 35; Start 01/17/17 at 08:00; Stop 01/19/17 at 09:49; Status DC Atorvastatin Calcium (Lipitor) 40 mg QHS PO Last administered on 01/26/17 20: 45; Start 01/16/17 at 21:00 Vitamin D (Vitamin D3) 2,000 unit DAILY PO Last administered on 01/27/17 09: 33; Start 01/17/17 at 09:00 Clonidine HCl (Catapres) 0.1 mg BID PO Last administered on 01/19/17 08:35; Start 01/16/17 at 21:00; Stop 01/19/17 at 09:52; Status DC Folic Acid (Folic Acid) 1 mg DAILY PO Last administered on 01/27/17 09:33; Start 01/17/17 at 09:00 Loperamide HCl (Imodium) 2 mg Q2H PRN PO diarrhea; Start 01/16/17 at 16:45 Metoprolol Succinate (Toprol Xl) 100 mg BID PO ; Start 01/16/17 at 21:00; Status UNV Gabapentin (Neurontin) 600 mg TID PO Last administered on 01/27/17 09:34; Start 01/16/17 at 21:00 Pantoprazole Sodium (Protonix) 40 mg DAILYAC PO Last administered on 06:26; Start 01/17/17 at 07:30 Insulin Aspart (NovoLOG) 0-9 UNITS TIDWMEALS SQ Last administered on 01/22/17 17:00; Start 01/16/17 at 17:00 Dextrose (Dextrose 50%-Water Syringe) 12.5 gm PRN Q15MIN PRN IV SEE COMMENTS; Start 01/16/17 at 16:45 Dexamethasone Sodium Phosphate (Decadron) 10 mg 1X ONCE IV Last administered on 01/16/17 17:05; Start 01/16/17 at 16:45; Stop 01/16/17 at 16:46; Status DC Dexamethasone Sodium Phosphate (Decadron) 4 mg Q6HRS IV Last administered on 05:58; Start 01/17/17 at 00:00; Stop 01/18/17 at 15:31; Status DC Morphine Sulfate 2 mg PRN Q2HR PRN IV PAIN Last administered on 01/24/17 19:52 ; Start 01/16/17 at 16:45; Stop 01/24/17 at 22:39; Status DC Oxycodone/ Acetaminophen (Percocet 10/325) 1 tab PRN Q4HRS PRN PO pain Last administered on 01/26/17 18:13; Start 01/16/17 at 16:45 Heparin Sodium (Porcine) (Heparin Sq) 5,000 unit Q8HRS SQ Last administered on 01/23/17 06:00; Start 01/16/17 at 22:00; Stop 01/23/17 at 13:16; Status DC Diazepam (Valium) 5 mg PRN Q6HRS PRN IV SEIZURES; Start 01/16/17 at 18:30; Status Cancel Diazepam (Valium) 5 mg PRN Q6HRS PRN PO TREMORS Last administered on 01/24/17 21:22; Start 01/16/17 at 18:45 Fentanyl Citrate (Fentanyl 2ml Vial) 100 mcg STK-MED ONCE .ROUTE ; Start at 10:08; Stop 01/17/17 at 10:09; Status DC Midazolam HCl (Versed) 2 mg STK-MED ONCE .ROUTE ; Start 01/17/17 at 10:08; Stop 01/17/17 at 10:09; Status DC Lidocaine/Sodium Bicarbonate (Buffered Lidocaine 1%) 20 ml 1X ONCE IJ Last administered on 01/17/17 10:51; Start 01/17/17 at 10:15; Stop 01/17/17 at 10:16 ; Status DC Midazolam HCl (Versed) 2 mg 1X ONCE IV Last administered on 01/17/17 10:52; Start 01/17/17 at 10:15; Stop 01/17/17 at 10:16; Status DC Fentanyl Citrate (Fentanyl 2ml Vial) 100 mcg 1X ONCE IV Last administered on 01/17/17 10:52; Start 01/17/17 at 10:15; Stop 01/17/17 at 10:16; Status DC Lidocaine/Sodium Bicarbonate (Buffered Lidocaine 1%) 20 ml STK-MED ONCE IJ ; Start 01/17/17 at 10:14; Stop 01/17/17 at 10:15; Status DC Piperacillin Sod/ Tazobactam Sod (Zosyn) 3.375 gm Q6HRS IVP Last administered on 01/18/17 06:00; Start 01/17/17 at 18:00; Stop 01/18/17 at 10:42; Status DC Dexamethasone Sodium Phosphate (Decadron) 4 mg Q12HR IV Last administered on 09:32; Start 01/18/17 at 21:00 Aspirin (Ecotrin) 81 mg DAILYWBKFT PO Last administered on 01/27/17 09:35; Start 01/20/17 at 08:00 Amlodipine Besylate (Norvasc) 10 mg DAILY PO Last administered on 01/24/17 09: 35; Start 01/19/17 at 10:00; Stop 01/25/17 at 12:44; Status DC Oxycodone HCl (OxyCONTIN) 30 mg Q12HR PO Last administered on 01/27/17 09:35 ; Start 01/19/17 at 11:45 Senna/Docusate Sodium (Senna Plus) 2 tab DAILY PO Last administered on 09:32; Start 01/19/17 at 12:00 Gadobutrol (Gadavist) 10 mmol 1X ONCE IV ; Start 01/19/17 at 15:45; Stop at 15:46; Status DC Sodium Chloride 1,000 ml @ 75 mls/hr [id number] IV Last administered on 02:12; Start 01/20/17 at 11:15; Stop 01/21/17 at 18:06; Status DC Polyethylene Glycol (miraLAX PACKET) 17 gm DAILY PO Last administered on 09:36; Start 01/20/17 at 15:00 Metoprolol Succinate (Toprol Xl) 50 mg DAILY PO Last administered on 08:25; Start 01/21/17 at 09:00; Stop 01/26/17 at 09:48; Status DC Bacitracin 05424 unit/Sodium Chloride 1,000 ml @ 1,000 mls/hr 1X PERIOP ONCE IRR Last administered on 01/24/17 12:59; Start 01/24/17 at 06:00; Stop at 06:59; Status DC Ondansetron HCl (Zofran) 4 mg PRN Q6HRS PRN IV NAUSEA/VOMITING; Start 01/24/17 at 07:00; Stop 01/25/17 at 06:59; Status DC Fentanyl Citrate (Fentanyl 2ml Vial) 25 mcg PRN Q5MIN PRN IV MILD PAIN; Start 01/24/17 at 07:00; Stop 01/24/17 at 22:48; Status DC Fentanyl Citrate (Fentanyl 2ml Vial) 50 mcg PRN Q5MIN PRN IV MODERATE PAIN Last administered on 01/24/17 19:01; Start 01/24/17 at 07:00; Stop 01/24/17 at 22:48; Status DC Morphine Sulfate 1 mg PRN Q10MIN PRN IV SEVERE PAIN; Start 01/24/17 at 07:00; Stop 01/24/17 at 22:48; Status DC Ringer's Solution 1,000 ml @ 30 mls/hr Q24H IV Last administered on 01/24/17 11:40; Start 01/24/17 at 07:00; Stop 01/24/17 at 18:59; Status DC Lidocaine HCl (Xylocaine-Mpf 1% Vial) 2 ml PRN 1X PRN ID IV START; Start at 07:00; Stop 01/25/17 at 06:59; Status DC Hydromorphone HCl (Dilaudid) 0.5 mg PRN Q10MIN PRN IV SEV PAIN, Second choice; Start 01/24/17 at 07:00; Stop 01/24/17 at 22:48; Status DC Prochlorperazine Edisylate (Compazine) 5 mg PACU PRN PRN IV NAUSEA, MRX1; Start 01/24/17 at 07:00; Stop 01/24/17 at 22:48; Status DC Cefazolin Sodium/ Dextrose 50 ml @ 100 mls/hr 1X PREOP PRN IV PRE-OP Last administered on 01/24/17 12:25; Start 01/23/17 at 13:15; Stop 01/24/17 at 18:00 ; Status DC Gelatin (Gelfoam Size 100) 1 each STK-MED ONCE .ROUTE Last administered on 12:59; Start 01/24/17 at 07:30; Stop 01/24/17 at 07:31; Status DC Bupivacaine HCl/ Epinephrine Bitart (Sensorcain-Mpf Epi 0.5%-[id number]) 30 ml STK -MED ONCE .ROUTE Last administered on 01/24/17 12:59; Start 01/24/17 at 07:31 ; Stop 01/24/17 at 07:32; Status DC Ketorolac Tromethamine (Toradol For Or Only) 60 mg STK-MED ONCE .ROUTE Last administered on 01/24/17 12:59; Start 01/24/17 at 07:31; Stop 01/24/17 at 07:32 ; Status DC Thrombin 20,000 unit STK-MED ONCE TP Last administered on 01/24/17 12:59; Start 01/24/17 at 07:31; Stop 01/24/17 at 07:32; Status DC Midazolam HCl (Versed) 2 mg STK-MED ONCE .ROUTE ; Start 01/24/17 at 11:05; Stop 01/24/17 at 11:06; Status DC Fentanyl Citrate (Fentanyl 5ml Vial) 250 mcg STK-MED ONCE .ROUTE ; Start at 11:05; Stop 01/24/17 at 11:06; Status DC Rocuronium [place] (Zemuron) 50 mg STK-MED ONCE .ROUTE ; Start 01/24/17 at 11:05 ; Stop 01/24/17 at 11:06; Status DC Remifentanil HCl (Ultiva) 2 mg STK-MED ONCE IV ; Start 01/24/17 at 11:05; Stop 01/24/17 at 11:06; Status DC Propofol 50 ml @ As Directed STK-MED ONCE IV ; Start 01/24/17 at 11:09; Stop at 11:10; Status DC Multi-Ingred Cream/Lotion/Oil/ Oint (Artificial Tears Eye Oint) 7 jose a STK-MED ONCE .ROUTE ; Start 01/24/17 at 11:09; Stop 01/24/17 at 11:10; Status DC Propofol 0 ml @ As Directed STK-MED ONCE IV ; Start 01/24/17 at 11:10; Stop 01/24/17 at 11:11; Status DC Lidocaine HCl (Lidocaine Pf 2% Vial) 5 ml STK-MED ONCE .ROUTE ; Start 01/24/17 at 11:10; Stop 01/24/17 at 11:11; Status DC Dexamethasone Sodium Phosphate (Decadron) 20 mg STK-MED ONCE .ROUTE ; Start 01/24/17 at 11:10; Stop 01/24/17 at 11:11; Status DC Ondansetron HCl (Zofran) 4 mg STK-MED ONCE .ROUTE ; Start 01/24/17 at 11:10; Stop 01/24/17 at 11:11; Status DC Desflurane (Suprane) 90 ml STK-MED ONCE IH ; Start 01/24/17 at 11:10; Stop 01/24 at 11:11; Status DC Sodium Chloride (Sodium Chloride) 50 ml STK-MED ONCE IJ ; Start 01/24/17 at 11: 11; Stop 01/24/17 at 11:12; Status DC Phenylephrine HCl 1 mg STK-MED ONCE IV ; Start 01/24/17 at 12:02; Stop 01/24/17 at 12:03; Status DC Glycopyrrolate (Robinul) 1 mg STK-MED ONCE .ROUTE ; Start 01/24/17 at 12:28; Stop 01/24/17 at 12:29; Status DC Neostigmine Methylsulfate 5 mg STK-MED ONCE .ROUTE ; Start 01/24/17 at 12:28; Stop 01/24/17 at 12:29; Status DC Ephedrine Sulfate (Akovaz) 50 mg STK-MED ONCE .ROUTE ; Start 01/24/17 at 14:05; Stop 01/24/17 at 14:06; Status DC Albumin Human 500 ml @ As Directed STK-MED ONCE IV ; Start 01/24/17 at 14:07; Stop 01/24/17 at 14:08; Status DC Remifentanil HCl (Ultiva) 2 mg STK-MED ONCE IV ; Start 01/24/17 at 14:55; Stop 01/24/17 at 14:56; Status DC Propofol 50 ml @ As Directed STK-MED ONCE IV ; Start 01/24/17 at 14:57; Stop at 14:58; Status DC Propofol 20 ml @ As Directed STK-MED ONCE IV ; Start 01/24/17 at 14:57; Stop at 14:58; Status DC Propofol 20 ml @ As Directed STK-MED ONCE IV ; Start 01/24/17 at 15:09; Stop at 15:10; Status DC Propofol 50 ml @ As Directed STK-MED ONCE IV ; Start 01/24/17 at 15:50; Stop at 15:51; Status DC Cefazolin Sodium/ Dextrose 50 ml @ As Directed STK-MED ONCE IV ; Start 01/24/17 at 16:20; Stop 01/24/17 at 16:21; Status DC Phenylephrine HCl 1 mg STK-MED ONCE IV ; Start 01/24/17 at 16:54; Stop 01/24/17 at 16:55; Status DC Propofol 50 ml @ As Directed STK-MED ONCE IV ; Start 01/24/17 at 17:10; Stop at 17:11; Status DC Remifentanil HCl (Ultiva) 2 mg STK-MED ONCE IV ; Start 01/24/17 at 17:10; Stop 01/24/17 at 17:11; Status DC Propofol 50 ml @ As Directed STK-MED ONCE IV ; Start 01/24/17 at 17:30; Stop at 17:31; Status DC Hydromorphone HCl (Dilaudid) 2 mg STK-MED ONCE .ROUTE ; Start 01/24/17 at 18:07 ; Stop 01/24/17 at 18:08; Status DC Fentanyl Citrate (Fentanyl 2ml Vial) 100 mcg STK-MED ONCE .ROUTE ; Start at 18:07; Stop 01/24/17 at 18:08; Status DC Morphine Sulfate 2 mg PRN Q2HR PRN IV SEVERE PAIN Last administered on 03:38; Start 01/24/17 at 22:45 Amlodipine Besylate (Norvasc) 5 mg DAILY PO Last administered on 01/27/17 09: 36; Start 01/26/17 at 09:00 Sodium Chloride 1,000 ml @ 75 mls/hr 1X ONCE IV Last administered on 13:25; Start 01/25/17 at 12:45; Stop 01/26/17 at 02:04; Status DC Metoprolol Succinate (Toprol Xl) 25 mg BID PO Last administered on 01/27/17t 09:33; Start 01/26/17 at 21:00 Heparin Sodium (Porcine) (Heparin Sq) 5,000 unit Q8HRS SQ ; Start 01/27/17 at 14:00 Active Scripts Active Reported Imodium A-D (Loperamide HCl) 2 Mg Capsule 2 Mg PO Aspirin 325 Mg Tablet 1 Tab PO DAILY Vitamin D3 (Cholecalciferol (Vitamin D3)) 1,000 Unit Tablet 2,000 Unit PO Vicodin Es 7.5-300 Mg Tablet (Hydrocodone Bit/Acetaminophen) 1 Each Tablet 1 Each PO Q6H PRN Humira (Adalimumab) 40 Mg/0.8 Ml Pen.ij.kit 1 Syr SQ Q2WKS Folbic Rf Tablet (B12/Levomefolate Calcium/B-6) 1 Each Tablet 1 Each PO Omeprazole 40 Mg Capsule.dr 1 Cap PO DAILY Cholestyramine Packet (Cholestyramine (With Sugar)) 4 Gm Powd.pack 4 Gm PO Gabapentin 600 Mg Tablet 600 Mg PO TID Folic Acid 1 Mg Tablet 1 Tab PO DAILY Clonidine Hcl 0.1 Mg Tablet 0.1 Mg PO BID Metformin Hcl 1,000 Mg Tablet 1,000 Mg PO BIDWMEALS Atorvastatin Calcium 40 Mg Tablet 1 Tab PO DAILY Metoprolol Succinate ( Xl ) (Metoprolol Succinate) 100 Mg Tab.er.24h 100 Mg PO BID Vitals/I & O Vital Sign - Last 24 Hours 01/26/17 01/26/17 01/26/17 01/26/17 13:38 14:32 15:00 18:13 Temp 98.1 98.1 Pulse 62 Resp 18 B/P (MAP) 143/79 (100) Pulse Ox 98 98 O2 Delivery Nasal Cannula Nasal Cannula Nasal Cannula Room Air O2 Flow Rate 2.0 2.0 01/26/17 01/26/17 01/26/17 01/26/17 19:00 19:30 20:00 20:45 Temp 98.4 98.4 Pulse 58 Resp 16 16 18 B/P (MAP) 124/58 (80) Pulse Ox 99 98 98 O2 Delivery Nasal Cannula Nasal Cannula Nasal Cannula O2 Flow Rate 2.0 2.0 2.0 01/26/17 01/26/17 01/27/17 01/27/17 20:46 23:00 00:45 03:00 Temp 97.7 97.7 97.7 97.7 Pulse 67 70 65 Resp 16 16 18 B/P (MAP) 118/67 133/65 (87) 123/55 (77) Pulse Ox 97 98 99 O2 Delivery Nasal Cannula O2 Flow Rate 2.0 01/27/17 01/27/17 01/27/17 01/27/17 07:00 08:00 09:33 09:35 Temp 97.7 97.7 Pulse 68 68 Resp 16 20 B/P (MAP) 129/61 (83) 129/61 Pulse Ox 100 O2 Delivery Nasal Cannula Nasal Cannula Nasal Cannula O2 Flow Rate 2.0 2.0 2.0 01/27/17 01/27/17 09:36 11:00 Temp 97.9 97.9 Pulse 68 50 Resp 18 B/P (MAP) 129/61 131/50 (77) Pulse Ox 100 JESSICA RAMIREZ III, DO Jan 27, 2017 12:20
[2017-01-27] MEDS: diazePAM 5 MG TABLET PO PRN (14:04)
[2017-01-27] MEDS: oxyCODONE/APAP 10/325 1 TAB TABLET PO PRN ×2 (14:04→21:51)
[2017-01-27] MEDS: MORPHINE SULFATE 4 MG/ML DISP.SYRIN. IV PRN ×2 (14:22→16:09)
[2017-01-27] MEDS: HEPARIN PF for SUB-Q USE 5,000 UNIT/0.5 ML VIAL. SQ SCH ×2 (14:29→22:00)
[2017-01-27 15:00] VITALS: BP_SYST 150; BP_SYST 165; BP_DIAS 58; BP_DIAS 69
[2017-01-27 19:00] VITALS: BP 129/56
[2017-01-27] MEDS: ATORVASTATIN CALCIUM 40 MG TABLET. PO SCH (21:50)
[2017-01-27 23:00] VITALS: BP 132/65
[2017-01-28] MEDS: oxyCODONE/APAP 10/325 1 TAB TABLET PO PRN ×4 (01:31→22:14)
[2017-01-28 03:00] VITALS: BP 136/64
[2017-01-28 05:04] LABS: BASO % 0 % (0-3); EOS % 0 % (0-3); HEMATOCRIT 22.5 % (39.0-53.0); HEMOGLOBIN 7.5 g/dL (13.0-17.5); LYMPH # 0.6 x10^3/uL (1.0-4.8); LYMPH % 6 % (24-48); MEAN CORPUSCULAR HEMOGLOBIN 32 pg (25-35); MEAN CORPUSCULAR HGB CONC 33 g/dL (31-37); MEAN CORPUSCULAR VOLUME 96 fL (79-100); MONO % 7 % (0-9); NEUT % 87 % (31-73); PLATELET COUNT 147 x10^3/uL (140-400); RED BLOOD COUNT 2.35 x10^6/uL (4.30-5.70); WHITE BLOOD COUNT 10.6 x10^3/uL (4.0-11.0)
[2017-01-28 05:40] LABS: CALCIUM 8.2 mg/dL (8.5-10.1); CREATININE 1.3 mg/dL (0.7-1.3); GFR 54.4; POTASSIUM 4.9 mmol/L (3.5-5.1)
[2017-01-28] MEDS: PANTOPRAZOLE 40 MG TABLET.DR. PO SCH (06:03)
[2017-01-28] MEDS: HEPARIN PF for SUB-Q USE 5,000 UNIT/0.5 ML VIAL. SQ SCH ×3 (06:04→22:28)
[2017-01-28 07:00] VITALS: BP 125/54
[2017-01-28] MEDS: MORPHINE SULFATE 4 MG/ML DISP.SYRIN. IV PRN (07:21)
[2017-01-28] MEDS: INSULIN ASPART 300 UNITS/3 ML INSULN.PEN SQ SCH ×3 (08:00→17:00)
--- NOTE | 2017-01-28 08:24 | RAD ---
EXAM: Lumbar spine, 2 views. HISTORY: L3 fracture. Lumbar fusion. COMPARISON: 01/18/2017. FINDINGS: Frontal and lateral views of the lumbar spine are obtained. There is instrumented posterior spinal fusion at L1-L5. Instrumentation consists of paired transpedicular screws at L1, L2, L4 and L5. These are bridged by vertical rods. These traverse a chance fracture of L3 with anterior displacement of the superior fracture segment relative to the anterior fracture segment. There is degenerative endplate remodeling with disc space narrowing and osteophytosis at all levels. There is mild anterior wedging of the lower thoracic vertebral levels. IMPRESSION: 1. Instrumented posterior spinal fusion from L1 to L5, traversing a displaced L3 Chance fracture. This is better characterized on the CT dated 01/24/2017. 2. Multilevel degenerative change throughout the spine, described above. 3. Chronic anterior wedge deformities of the lower thoracic vertebral bodies.
[2017-01-28] MEDS: SENNOSIDES/DOCUSATE 8.6/50MG TABLET. PO SCH (09:28)
[2017-01-28] MEDS: POLYETHYLENE GLYCOL 3350 17 GM PACKET. PO SCH (09:28)
[2017-01-28] MEDS: CHOLECALCIFEROL (VITAMIN D3) 1,000 UNIT TABLET PO SCH (09:28)
[2017-01-28] MEDS: oxyCODONE ER 15 MG TAB.ER.12H PO SCH ×2 (09:29→22:15)
[2017-01-28] MEDS: GABAPENTIN 300 MG CAPSULE. PO SCH ×3 (09:30→22:14)
[2017-01-28] MEDS: ASPIRIN ENTERIC COATED 81 MG TABLET.DR. PO SCH (09:30)
[2017-01-28] MEDS: DEXAMETHASONE SOD PHOS 4 MG/ML VIAL IV SCH ×2 (09:30→22:13)
[2017-01-28] MEDS: FOLIC ACID 1 MG TABLET. PO SCH (09:30)
[2017-01-28] MEDS: amLODIPine BESYLATE 5 MG TABLET PO SCH (09:31)
[2017-01-28 10:44] LABS: ANISOCYTOSIS PRESENT; PLT ESTIMATE ADEQUATE (ADEQUATE); POLYCHROMASIA PRESENT
[2017-01-28 11:00] VITALS: BP 131/58
[2017-01-28] MEDS: LACTOBACILLUS RHAMNOSUS GG 1 CAPSULE. PO SCH ×2 (12:37→22:14)
[2017-01-28] MEDS: METOPROLOL SUCC 24HR ER 25 MG TAB.ER.24H. PO SCH ×2 (12:37→22:14)
--- NOTE | 2017-01-28 14:40 | PDOC ---
PROGRESS NOTES Chief Complaint Chief Complaint L3 spinal mass: highly suspicious for malignancy or L3 Chance fracture?. Back pain Syncope Renal mass vs complex cyst ANDREINA on CKD DM2 Anemia Dyspnea PAF CAD: hx mult stents Crohn's Alcoholism Azotemia History of Present Illness History of Present Illness Pt seen at bedside on the medical floor. He is AOCx3. He had an L1-L5 vertebral fusion and hematoma evacuation. Initial worry for malignant lesion of vertebra appears to be negative based on intraoperative findings. Pt has no c /o ongoing pain during our conversation. Pt is being followed by Nepho re: renal insufficiency, ID re: positive lactic acid, Cardio re: CHF, Heme and Onc re: spinal cancer, Radiation Onc re: Spinal cancer, Neurosurg re: L3 malignant lesion. Pt has anemia, will continue to monitor Hgb lever- heme onc following. LTAC evaluation in progress. Continue wound care. Possible discharge tomorrow. Will continue to monitor. Vitals Vitals Vital Signs Date Time Temp Pulse Resp B/P (MAP) Pulse Ox O2 Delivery O2 Flow Rate FiO2 01/28/17 12:37 50 136/64 01/28/17 10:11 100 Room Air 01/28/17 09:29 20 01/28/17 07:00 97.6 97.6 Physical Exam General: Alert, Oriented X3, Cooperative, No acute distress Heart: Regular rate, Normal S1, Normal S2, Other (Systolic ejection murmur 3/6) Lungs: Clear Abdomen: Normal bowel sounds, Soft, No tenderness Extremities: No clubbing, No edema Skin: No rashes, No breakdown, Other (Dressing changed, ricky intact, drain d /c'd) Labs LABS Laboratory Tests Test 01/27/17 16:40 01/27/17 20:36 01/28/17 04:20 01/28/17 08:17 Glucose (Fingerstick) 154 mg/dL (70-99) 133 mg/dL (70-99) 120 mg/dL (70-99) White Blood Count 10.6 x10^3/uL (4.0-11.0) Red Blood Count 2.35 x10^6/uL (4.30-5.70) Hemoglobin 7.5 g/dL (13.0-17.5) Hematocrit 22.5 % (39.0-53.0) Mean Corpuscular Volume 96 fL (79-100) Mean Corpuscular Hemoglobin 32 pg (25-35) Mean Corpuscular Hemoglobin Concent 33 g/dL (31-37) Red Cell Distribution Width 17.0 % (11.5-14.5) Platelet Count 147 x10^3/uL (140-400) Neutrophils (%) (Auto) 87 % (31-73) Lymphocytes (%) (Auto) 6 % (24-48) Monocytes (%) (Auto) 7 % (0-9) Eosinophils (%) (Auto) 0 % (0-3) Basophils (%) (Auto) 0 % (0-3) Neutrophils # (Auto) 9.3 x10^3uL (1.8-7.7) Lymphocytes # (Auto) 0.6 x10^3/uL (1.0-4.8) Monocytes # (Auto) 0.7 x10^3/uL (0.0-1.1) Eosinophils # (Auto) 0.0 x10^3/uL (0.0-0.7) Basophils # (Auto) 0.0 x10^3/uL (0.0-0.2) Segmented Neutrophils % 93 % (35-66) Band Neutrophils % 1 % (0-9) Lymphocytes % 3 % (24-48) Monocytes % 3 % (0-10) Platelet Estimate Adequate (ADEQUATE) Polychromasia Present Anisocytosis Present Sodium Level 136 mmol/L (136-145) Potassium Level 4.9 mmol/L (3.5-5.1) Chloride Level 102 mmol/L (98-107) Carbon Dioxide Level 30 mmol/L (21-32) Anion Gap 4 (6-14) Blood Urea Nitrogen 39 mg/dL (8-26) Creatinine 1.3 mg/dL (0.7-1.3) Estimated GFR (Cockcroft-Gault) 54.4 Glucose Level 135 mg/dL (70-99) Calcium Level 8.2 mg/dL (8.5-10.1) Test 01/28/17 12:32 Glucose (Fingerstick) 131 mg/dL (70-99) Review of Systems Review of Systems Pt complains of fatigue and weakness Assessment and Plan Assessmemt and Plan Problems Medical Problems: (1) Elevated d-dimer Status: Acute (2) Elevated serum creatinine Status: Acute (3) Hypoxia Status: Acute (4) Lactic acidosis Status: Acute (5) 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 Back pain Syncope Renal mass vs complex cyst ANDREINA on CKD DM2 Anemia Dyspnea PAF CAD: hx mult stents Crohn's Alcoholism Azotemia Plan: Monitor Hgb levels re: anemia LTAC evaluation Continue home meds PT/OT Recheck labs Appreciate subspecialist input Possible discharge tomorrow Problems: Comment Review of Relevant I have reviewed the following items bernadine (where applicable) has been applied. Labs Laboratory Tests Test 01/26/17 17:16 01/26/17 21:35 01/27/17 03:40 01/27/17 07:45 Glucose (Fingerstick) 148 mg/dL (70-99) 148 mg/dL (70-99) 105 mg/dL (70-99) White Blood Count 10.5 x10^3/uL (4.0-11.0) Red Blood Count 2.49 x10^6/uL (4.30-5.70) Hemoglobin 7.7 g/dL (13.0-17.5) Hematocrit 23.4 % (39.0-53.0) Mean Corpuscular Volume 94 fL (79-100) Mean Corpuscular Hemoglobin 31 pg (25-35) Mean Corpuscular Hemoglobin Concent 33 g/dL (31-37) Red Cell Distribution Width 17.0 % (11.5-14.5) Platelet Count 128 x10^3/uL (140-400) Neutrophils (%) (Auto) 83 % (31-73) Lymphocytes (%) (Auto) 6 % (24-48) Monocytes (%) (Auto) 11 % (0-9) Eosinophils (%) (Auto) 0 % (0-3) Basophils (%) (Auto) 0 % (0-3) Neutrophils # (Auto) 8.8 x10^3uL (1.8-7.7) Lymphocytes # (Auto) 0.6 x10^3/uL (1.0-4.8) Monocytes # (Auto) 1.1 x10^3/uL (0.0-1.1) Eosinophils # (Auto) 0.0 x10^3/uL (0.0-0.7) Basophils # (Auto) 0.0 x10^3/uL (0.0-0.2) Sodium Level 140 mmol/L (136-145) Potassium Level 5.2 mmol/L (3.5-5.1) Chloride Level 104 mmol/L (98-107) Carbon Dioxide Level 29 mmol/L (21-32) Anion Gap 7 (6-14) Blood Urea Nitrogen 40 mg/dL (8-26) Creatinine 1.3 mg/dL (0.7-1.3) Estimated GFR (Cockcroft-Gault) 54.4 Glucose Level 146 mg/dL (70-99) Calcium Level 8.3 mg/dL (8.5-10.1) Test 01/27/17 11:19 01/27/17 16:40 01/27/17 20:36 01/28/17 04:20 Glucose (Fingerstick) 135 mg/dL (70-99) 154 mg/dL (70-99) 133 mg/dL (70-99) White Blood Count 10.6 x10^3/uL (4.0-11.0) Red Blood Count 2.35 x10^6/uL (4.30-5.70) Hemoglobin 7.5 g/dL (13.0-17.5) Hematocrit 22.5 % (39.0-53.0) Mean Corpuscular Volume 96 fL (79-100) Mean Corpuscular Hemoglobin 32 pg (25-35) Mean Corpuscular Hemoglobin Concent 33 g/dL (31-37) Red Cell Distribution Width 17.0 % (11.5-14.5) Platelet Count 147 x10^3/uL (140-400) Neutrophils (%) (Auto) 87 % (31-73) Lymphocytes (%) (Auto) 6 % (24-48) Monocytes (%) (Auto) 7 % (0-9) Eosinophils (%) (Auto) 0 % (0-3) Basophils (%) (Auto) 0 % (0-3) Neutrophils # (Auto) 9.3 x10^3uL (1.8-7.7) Lymphocytes # (Auto) 0.6 x10^3/uL (1.0-4.8) Monocytes # (Auto) 0.7 x10^3/uL (0.0-1.1) Eosinophils # (Auto) 0.0 x10^3/uL (0.0-0.7) Basophils # (Auto) 0.0 x10^3/uL (0.0-0.2) Segmented Neutrophils % 93 % (35-66) Band Neutrophils % 1 % (0-9) Lymphocytes % 3 % (24-48) Monocytes % 3 % (0-10) Platelet Estimate Adequate (ADEQUATE) Polychromasia Present Anisocytosis Present Sodium Level 136 mmol/L (136-145) Potassium Level 4.9 mmol/L (3.5-5.1) Chloride Level 102 mmol/L (98-107) Carbon Dioxide Level 30 mmol/L (21-32) Anion Gap 4 (6-14) Blood Urea Nitrogen 39 mg/dL (8-26) Creatinine 1.3 mg/dL (0.7-1.3) Estimated GFR (Cockcroft-Gault) 54.4 Glucose Level 135 mg/dL (70-99) Calcium Level 8.2 mg/dL (8.5-10.1) Test 01/28/17 08:17 01/28/17 12:32 Glucose (Fingerstick) 120 mg/dL (70-99) 131 mg/dL (70-99) Laboratory Tests Test 01/27/17 16:40 01/27/17 20:36 01/28/17 04:20 01/28/17 08:17 Glucose (Fingerstick) 154 mg/dL (70-99) 133 mg/dL (70-99) 120 mg/dL (70-99) White Blood Count 10.6 x10^3/uL (4.0-11.0) Red Blood Count 2.35 x10^6/uL (4.30-5.70) Hemoglobin 7.5 g/dL (13.0-17.5) Hematocrit 22.5 % (39.0-53.0) Mean Corpuscular Volume 96 fL (79-100) Mean Corpuscular Hemoglobin 32 pg (25-35) Mean Corpuscular Hemoglobin Concent 33 g/dL (31-37) Red Cell Distribution Width 17.0 % (11.5-14.5) Platelet Count 147 x10^3/uL (140-400) Neutrophils (%) (Auto) 87 % (31-73) Lymphocytes (%) (Auto) 6 % (24-48) Monocytes (%) (Auto) 7 % (0-9) Eosinophils (%) (Auto) 0 % (0-3) Basophils (%) (Auto) 0 % (0-3) Neutrophils # (Auto) 9.3 x10^3uL (1.8-7.7) Lymphocytes # (Auto) 0.6 x10^3/uL (1.0-4.8) Monocytes # (Auto) 0.7 x10^3/uL (0.0-1.1) Eosinophils # (Auto) 0.0 x10^3/uL (0.0-0.7) Basophils # (Auto) 0.0 x10^3/uL (0.0-0.2) Segmented Neutrophils % 93 % (35-66) Band Neutrophils % 1 % (0-9) Lymphocytes % 3 % (24-48) Monocytes % 3 % (0-10) Platelet Estimate Adequate (ADEQUATE) Polychromasia Present Anisocytosis Present Sodium Level 136 mmol/L (136-145) Potassium Level 4.9 mmol/L (3.5-5.1) Chloride Level 102 mmol/L (98-107) Carbon Dioxide Level 30 mmol/L (21-32) Anion Gap 4 (6-14) Blood Urea Nitrogen 39 mg/dL (8-26) Creatinine 1.3 mg/dL (0.7-1.3) Estimated GFR (Cockcroft-Gault) 54.4 Glucose Level 135 mg/dL (70-99) Calcium Level 8.2 mg/dL (8.5-10.1) Test 01/28/17 12:32 Glucose (Fingerstick) 131 mg/dL (70-99) Microbiology 01/15/17 Blood Culture - Final, Complete NO GROWTH AFTER 5 DAYS Medications Current Medications Fentanyl Citrate (Fentanyl 2ml Vial) 50 mcg 1X ONCE IV Last administered on 21:52; Start 01/15/17 at 22:00; Stop 01/15/17 at 22:01; Status DC Sodium Chloride 1,000 ml @ 150 mls/hr 1X ONCE IV Last administered on 22:31; Start 01/15/17 at 22:00; Stop 01/16/17 at 04:39; Status DC Piperacillin Sod/ Tazobactam Sod 3.375 gm/Dextrose 50 ml @ 100 mls/hr 1X ONCE IV Last administered on 01/15/17 23:22; Start 01/15/17 at 23:30; Stop 01/15 at 23:59; Status DC Heparin Sodium (Porcine) (Heparin Sodium) 9,450 unit 1X ONCE IV Last administered on 01/15/17 23:30; Start 01/15/17 at 23:30; Stop 01/16/17 at 16 :41; Status DC Heparin Sodium/ Dextrose 500 ml @ 0 mls/hr CONT PRN IV SEE I/O RECORD Last administered on 01/16/17 16:26; Start 01/15/17 at 23:15; Stop 01/16/17 at 16 :41; Status DC Heparin Sodium (Porcine) (Heparin Sodium) 3,550 unit PRN Q6HRS PRN IV FOR UFH LEVEL LESS THAN 0.2; Start 01/15/17 at 23:15; Stop 01/16/17 at 16:41; Status DC Heparin Sodium (Porcine) (Heparin Sodium) 1,750 unit PRN Q6HRS PRN IV FOR UFH LEVEL 0.2 - 0.29; Start 01/15/17 at 23:15; Stop 01/16/17 at 16:41; Status DC Warfarin Sodium (Coumadin Per Pharmacy) 1 each PRN DAILY PRN MC PER PROTOCOL Last administered on 01/16/17 10:20; Start 01/15/17 at 23:15; Stop 01/16/17 at 16:39; Status DC Info (Anti-Coagulation Monitoring By Pharmacy) 1 each PRN DAILY PRN MC SEE COMMENTS Last administered on 01/16/17 10:17; Start 01/15/17 at 23:30; Stop 01/18/17 at 14:31; Status DC Ondansetron HCl (Zofran) 4 mg PRN Q8HRS PRN IV NAUSEA/VOMITING; Start at 23:15; Stop 01/16/17 at 23:14; Status DC Fentanyl Citrate (Fentanyl 2ml Vial) 50 mcg PRN Q2HR PRN IV SEVERE PAIN Last administered on 01/16/17 01:33; Start 01/15/17 at 23:15; Stop 01/16/17 at 02 :47; Status DC Piperacillin Sod/ Tazobactam Sod (Zosyn Per Pharmacy) 1 each PRN DAILY PRN MC SEE COMMENTS; Start 01/15/17 at 23:15; Stop 01/16/17 at 02:54; Status DC Sodium Chloride 1,000 ml @ 150 mls/hr 1X ONCE IV Last administered on 01:34; Start 01/15/17 at 23:45; Stop 01/16/17 at 06:24; Status DC Albuterol Sulfate (Ventolin Neb Soln) 2.5 mg PRN Q3HRS PRN NEB WHEEZING Last administered on 01/16/17 11:24; Start 01/15/17 at 23:30 Morphine Sulfate 2 mg 1X ONCE IV Last administered on 01/15/17 23:47; Start 01/16/17 at 00:00; Stop 01/16/17 at 00:01; Status DC Fentanyl Citrate (Fentanyl 2ml Vial) 75 mcg PRN Q2HR PRN IV SEVERE PAIN Last administered on 01/16/17 13:56; Start 01/16/17 at 02:45; Stop 01/16/17 at 16 :41; Status DC Piperacillin Sod/ Tazobactam Sod (Zosyn Per Pharmacy) 1 each PRN DAILY PRN MC SEE COMMENTS; Start 01/16/17 at 02:45; Stop 01/17/17 at 16:01; Status DC Piperacillin Sod/ Tazobactam Sod (Zosyn) 2.25 gm Q6HRS IVP Last administered on 01/17/17 12:01; Start 01/16/17 at 06:00; Stop 01/17/17 at 16:01; Status DC Info (Anti-Coagulation Monitoring By Pharmacy) 1 each PRN DAILY PRN MC SEE COMMENTS; Start 01/16/17 at 09:45; Status Cancel Warfarin Sodium (Coumadin) 5 mg 1X WARF ONCE PO ; Start 01/16/17 at 16:00; Stop 01/16/17 at 16:39; Status DC Lactobacillus Rhamnosus (Culturelle) 1 cap BID PO Last administered on 12:37; Start 01/16/17 at 21:00 Magnesium Sulfate/ Dextrose 50 ml @ 25 mls/hr 1X ONCE IV Last administered on 01/16/17 12:45; Start 01/16/17 at 11:30; Stop 01/16/17 at 13:29; Status DC Linezolid 300 ml @ 300 mls/hr Q12HR IV Last administered on 01/16/17 20:58; Start 01/16/17 at 12:00; Stop 01/17/17 at 08:14; Status DC Iohexol (Omnipaque 240 Mg/ml) 30 ml 1X ONCE PO ; Start 01/16/17 at 12:00; Stop 01/16/17 at 12:01; Status DC Info (Do NOT chart on this entry -- for MONITORING) 1 each PRN DAILY PRN MC SEE COMMENTS; Start 01/16/17 at 12:00; Stop 01/18/17 at 11:59; Status DC Magnesium Sulfate/ Dextrose 50 ml @ 25 mls/hr PRN DAILY PRN IV for Mag < 1.7 on am labs; Start 01/16/17 at 13:15 Metoprolol Succinate (Toprol Xl) 50 mg BID PO Last administered on 01/21/17 08 :11; Start 01/16/17 at 21:00; Stop 01/21/17 at 08:33; Status DC Sodium Chloride 1,000 ml @ 100 mls/hr Q10H IV Last administered on 01/18/17 05:45; Start 01/16/17 at 13:45; Stop 01/18/17 at 11:44; Status DC Aspirin (Charmaine Aspirin) 325 mg DAILYWBKFT PO Last administered on 01/19/17 08: 35; Start 01/17/17 at 08:00; Stop 01/19/17 at 09:49; Status DC Atorvastatin Calcium (Lipitor) 40 mg QHS PO Last administered on 01/27/17 21: 50; Start 01/16/17 at 21:00 Vitamin D (Vitamin D3) 2,000 unit DAILY PO Last administered on 01/28/17 09: 28; Start 01/17/17 at 09:00 Clonidine HCl (Catapres) 0.1 mg BID PO Last administered on 01/19/17 08:35; Start 01/16/17 at 21:00; Stop 01/19/17 at 09:52; Status DC Folic Acid (Folic Acid) 1 mg DAILY PO Last administered on 01/28/17 09:30; Start 01/17/17 at 09:00 Loperamide HCl (Imodium) 2 mg Q2H PRN PO diarrhea; Start 01/16/17 at 16:45 Metoprolol Succinate (Toprol Xl) 100 mg BID PO ; Start 01/16/17 at 21:00; Status UNV Gabapentin (Neurontin) 600 mg TID PO Last administered on 01/28/17 09:30; Start 01/16/17 at 21:00 Pantoprazole Sodium (Protonix) 40 mg DAILYAC PO Last administered on 06:03; Start 01/17/17 at 07:30 Insulin Aspart (NovoLOG) 0-9 UNITS TIDWMEALS SQ Last administered on 01/22/17 17:00; Start 01/16/17 at 17:00 Dextrose (Dextrose 50%-Water Syringe) 12.5 gm PRN Q15MIN PRN IV SEE COMMENTS; Start 01/16/17 at 16:45 Dexamethasone Sodium Phosphate (Decadron) 10 mg 1X ONCE IV Last administered on 01/16/17 17:05; Start 01/16/17 at 16:45; Stop 01/16/17 at 16:46; Status DC Dexamethasone Sodium Phosphate (Decadron) 4 mg Q6HRS IV Last administered on 05:58; Start 01/17/17 at 00:00; Stop 01/18/17 at 15:31; Status DC Morphine Sulfate 2 mg PRN Q2HR PRN IV PAIN Last administered on 01/24/17 19:52 ; Start 01/16/17 at 16:45; Stop 01/24/17 at 22:39; Status DC Oxycodone/ Acetaminophen (Percocet 10/325) 1 tab PRN Q4HRS PRN PO pain Last administered on 01/28/17 06:03; Start 01/16/17 at 16:45 Heparin Sodium (Porcine) (Heparin Sq) 5,000 unit Q8HRS SQ Last administered on 01/23/17 06:00; Start 01/16/17 at 22:00; Stop 01/23/17 at 13:16; Status DC Diazepam (Valium) 5 mg PRN Q6HRS PRN IV SEIZURES; Start 01/16/17 at 18:30; Status Cancel Diazepam (Valium) 5 mg PRN Q6HRS PRN PO TREMORS Last administered on 14:04; Start 01/16/17 at 18:45 Fentanyl Citrate (Fentanyl 2ml Vial) 100 mcg STK-MED ONCE .ROUTE ; Start at 10:08; Stop 01/17/17 at 10:09; Status DC Midazolam HCl (Versed) 2 mg STK-MED ONCE .ROUTE ; Start 01/17/17 at 10:08; Stop 01/17/17 at 10:09; Status DC Lidocaine/Sodium Bicarbonate (Buffered Lidocaine 1%) 20 ml 1X ONCE IJ Last administered on 01/17/17 10:51; Start 01/17/17 at 10:15; Stop 01/17/17 at 10:16 ; Status DC Midazolam HCl (Versed) 2 mg 1X ONCE IV Last administered on 01/17/17 10:52; Start 01/17/17 at 10:15; Stop 01/17/17 at 10:16; Status DC Fentanyl Citrate (Fentanyl 2ml Vial) 100 mcg 1X ONCE IV Last administered on 01/17/17 10:52; Start 01/17/17 at 10:15; Stop 01/17/17 at 10:16; Status DC Lidocaine/Sodium Bicarbonate (Buffered Lidocaine 1%) 20 ml STK-MED ONCE IJ ; Start 01/17/17 at 10:14; Stop 01/17/17 at 10:15; Status DC Piperacillin Sod/ Tazobactam Sod (Zosyn) 3.375 gm Q6HRS IVP Last administered on 01/18/17 06:00; Start 01/17/17 at 18:00; Stop 01/18/17 at 10:42; Status DC Dexamethasone Sodium Phosphate (Decadron) 4 mg Q12HR IV Last administered on 09:30; Start 01/18/17 at 21:00 Aspirin (Ecotrin) 81 mg DAILYWBKFT PO Last administered on 01/28/17 09:30; Start 01/20/17 at 08:00 Amlodipine Besylate (Norvasc) 10 mg DAILY PO Last administered on 01/24/17 09: 35; Start 01/19/17 at 10:00; Stop 01/25/17 at 12:44; Status DC Oxycodone HCl (OxyCONTIN) 30 mg Q12HR PO Last administered on 01/28/17 09:29 ; Start 01/19/17 at 11:45 Senna/Docusate Sodium (Senna Plus) 2 tab DAILY PO Last administered on 09:28; Start 01/19/17 at 12:00 Gadobutrol (Gadavist) 10 mmol 1X ONCE IV ; Start 01/19/17 at 15:45; Stop at 15:46; Status DC Sodium Chloride 1,000 ml @ 75 mls/hr [id number] IV Last administered on 02:12; Start 01/20/17 at 11:15; Stop 01/21/17 at 18:06; Status DC Polyethylene Glycol (miraLAX PACKET) 17 gm DAILY PO Last administered on 09:28; Start 01/20/17 at 15:00 Metoprolol Succinate (Toprol Xl) 50 mg DAILY PO Last administered on 08:25; Start 01/21/17 at 09:00; Stop 01/26/17 at 09:48; Status DC Bacitracin 92563 unit/Sodium Chloride 1,000 ml @ 1,000 mls/hr 1X PERIOP ONCE IRR Last administered on 01/24/17 12:59; Start 01/24/17 at 06:00; Stop at 06:59; Status DC Ondansetron HCl (Zofran) 4 mg PRN Q6HRS PRN IV NAUSEA/VOMITING; Start 01/24/17 at 07:00; Stop 01/25/17 at 06:59; Status DC Fentanyl Citrate (Fentanyl 2ml Vial) 25 mcg PRN Q5MIN PRN IV MILD PAIN; Start 01/24/17 at 07:00; Stop 01/24/17 at 22:48; Status DC Fentanyl Citrate (Fentanyl 2ml Vial) 50 mcg PRN Q5MIN PRN IV MODERATE PAIN Last administered on 01/24/17 19:01; Start 01/24/17 at 07:00; Stop 01/24/17 at 22:48; Status DC Morphine Sulfate 1 mg PRN Q10MIN PRN IV SEVERE PAIN; Start 01/24/17 at 07:00; Stop 01/24/17 at 22:48; Status DC Ringer's Solution 1,000 ml @ 30 mls/hr Q24H IV Last administered on 01/24/17 11:40; Start 01/24/17 at 07:00; Stop 01/24/17 at 18:59; Status DC Lidocaine HCl (Xylocaine-Mpf 1% Vial) 2 ml PRN 1X PRN ID IV START; Start at 07:00; Stop 01/25/17 at 06:59; Status DC Hydromorphone HCl (Dilaudid) 0.5 mg PRN Q10MIN PRN IV SEV PAIN, Second choice; Start 01/24/17 at 07:00; Stop 01/24/17 at 22:48; Status DC Prochlorperazine Edisylate (Compazine) 5 mg PACU PRN PRN IV NAUSEA, MRX1; Start 01/24/17 at 07:00; Stop 01/24/17 at 22:48; Status DC Cefazolin Sodium/ Dextrose 50 ml @ 100 mls/hr 1X PREOP PRN IV PRE-OP Last administered on 01/24/17 12:25; Start 01/23/17 at 13:15; Stop 01/24/17 at 18:00 ; Status DC Gelatin (Gelfoam Size 100) 1 each STK-MED ONCE .ROUTE Last administered on 12:59; Start 01/24/17 at 07:30; Stop 01/24/17 at 07:31; Status DC Bupivacaine HCl/ Epinephrine Bitart (Sensorcain-Mpf Epi 0.5%-1:[id number]) 30 ml STK -MED ONCE .ROUTE Last administered on 01/24/17 12:59; Start 01/24/17 at 07:31 ; Stop 01/24/17 at 07:32; Status DC Ketorolac Tromethamine (Toradol For Or Only) 60 mg STK-MED ONCE .ROUTE Last administered on 01/24/17 12:59; Start 01/24/17 at 07:31; Stop 01/24/17 at 07:32 ; Status DC Thrombin 20,000 unit STK-MED ONCE TP Last administered on 01/24/17 12:59; Start 01/24/17 at 07:31; Stop 01/24/17 at 07:32; Status DC Midazolam HCl (Versed) 2 mg STK-MED ONCE .ROUTE ; Start 01/24/17 at 11:05; Stop 01/24/17 at 11:06; Status DC Fentanyl Citrate (Fentanyl 5ml Vial) 250 mcg STK-MED ONCE .ROUTE ; Start at 11:05; Stop 01/24/17 at 11:06; Status DC Rocuronium Tanner (Zemuron) 50 mg STK-MED ONCE .ROUTE ; Start 01/24/17 at 11:05 ; Stop 01/24/17 at 11:06; Status DC Remifentanil HCl (Ultiva) 2 mg STK-MED ONCE IV ; Start 01/24/17 at 11:05; Stop 01/24/17 at 11:06; Status DC Propofol 50 ml @ As Directed STK-MED ONCE IV ; Start 01/24/17 at 11:09; Stop at 11:10; Status DC Multi-Ingred Cream/Lotion/Oil/ Oint (Artificial Tears Eye Oint) 7 jose a STK-MED ONCE .ROUTE ; Start 01/24/17 at 11:09; Stop 01/24/17 at 11:10; Status DC Propofol 0 ml @ As Directed STK-MED ONCE IV ; Start 01/24/17 at 11:10; Stop 01/24/17 at 11:11; Status DC Lidocaine HCl (Lidocaine Pf 2% Vial) 5 ml STK-MED ONCE .ROUTE ; Start 01/24/17 at 11:10; Stop 01/24/17 at 11:11; Status DC Dexamethasone Sodium Phosphate (Decadron) 20 mg STK-MED ONCE .ROUTE ; Start 01/24/17 at 11:10; Stop 01/24/17 at 11:11; Status DC Ondansetron HCl (Zofran) 4 mg STK-MED ONCE .ROUTE ; Start 01/24/17 at 11:10; Stop 01/24/17 at 11:11; Status DC Desflurane (Suprane) 90 ml STK-MED ONCE IH ; Start 01/24/17 at 11:10; Stop 01/24 at 11:11; Status DC Sodium Chloride (Sodium Chloride) 50 ml STK-MED ONCE IJ ; Start 01/24/17 at 11: 11; Stop 01/24/17 at 11:12; Status DC Phenylephrine HCl 1 mg STK-MED ONCE IV ; Start 01/24/17 at 12:02; Stop 01/24/17 at 12:03; Status DC Glycopyrrolate (Robinul) 1 mg STK-MED ONCE .ROUTE ; Start 01/24/17 at 12:28; Stop 01/24/17 at 12:29; Status DC Neostigmine Methylsulfate 5 mg STK-MED ONCE .ROUTE ; Start 01/24/17 at 12:28; Stop 01/24/17 at 12:29; Status DC Ephedrine Sulfate (Akovaz) 50 mg STK-MED ONCE .ROUTE ; Start 01/24/17 at 14:05; Stop 01/24/17 at 14:06; Status DC Albumin Human 500 ml @ As Directed STK-MED ONCE IV ; Start 01/24/17 at 14:07; Stop 01/24/17 at 14:08; Status DC Remifentanil HCl (Ultiva) 2 mg STK-MED ONCE IV ; Start 01/24/17 at 14:55; Stop 01/24/17 at 14:56; Status DC Propofol 50 ml @ As Directed STK-MED ONCE IV ; Start 01/24/17 at 14:57; Stop at 14:58; Status DC Propofol 20 ml @ As Directed STK-MED ONCE IV ; Start 01/24/17 at 14:57; Stop at 14:58; Status DC Propofol 20 ml @ As Directed STK-MED ONCE IV ; Start 01/24/17 at 15:09; Stop at 15:10; Status DC Propofol 50 ml @ As Directed STK-MED ONCE IV ; Start 01/24/17 at 15:50; Stop at 15:51; Status DC Cefazolin Sodium/ Dextrose 50 ml @ As Directed STK-MED ONCE IV ; Start 01/24/17 at 16:20; Stop 01/24/17 at 16:21; Status DC Phenylephrine HCl 1 mg STK-MED ONCE IV ; Start 01/24/17 at 16:54; Stop 01/24/17 at 16:55; Status DC Propofol 50 ml @ As Directed STK-MED ONCE IV ; Start 01/24/17 at 17:10; Stop at 17:11; Status DC Remifentanil HCl (Ultiva) 2 mg STK-MED ONCE IV ; Start 01/24/17 at 17:10; Stop 01/24/17 at 17:11; Status DC Propofol 50 ml @ As Directed STK-MED ONCE IV ; Start 01/24/17 at 17:30; Stop at 17:31; Status DC Hydromorphone HCl (Dilaudid) 2 mg STK-MED ONCE .ROUTE ; Start 01/24/17 at 18:07 ; Stop 01/24/17 at 18:08; Status DC Fentanyl Citrate (Fentanyl 2ml Vial) 100 mcg STK-MED ONCE .ROUTE ; Start at 18:07; Stop 01/24/17 at 18:08; Status DC Morphine Sulfate 2 mg PRN Q2HR PRN IV SEVERE PAIN Last administered on 07:21; Start 01/24/17 at 22:45 Amlodipine Besylate (Norvasc) 5 mg DAILY PO Last administered on 01/28/17 09: 31; Start 01/26/17 at 09:00 Sodium Chloride 1,000 ml @ 75 mls/hr 1X ONCE IV Last administered on 13:25; Start 01/25/17 at 12:45; Stop 01/26/17 at 02:04; Status DC Metoprolol Succinate (Toprol Xl) 25 mg BID PO Last administered on 01/28/17 12:37; Start 01/26/17 at 21:00 Heparin Sodium (Porcine) (Heparin Sq) 5,000 unit Q8HRS SQ Last administered on 01/28/17 06:04; Start 01/27/17 at 14:00 Active Scripts Active Reported Imodium A-D (Loperamide HCl) 2 Mg Capsule 2 Mg PO Aspirin 325 Mg Tablet 1 Tab PO DAILY Vitamin D3 (Cholecalciferol (Vitamin D3)) 1,000 Unit Tablet 2,000 Unit PO Vicodin Es 7.5-300 Mg Tablet (Hydrocodone Bit/Acetaminophen) 1 Each Tablet 1 Each PO Q6H PRN Humira (Adalimumab) 40 Mg/0.8 Ml Pen.ij.kit 1 Syr SQ Q2WKS Folbic Rf Tablet (B12/Levomefolate Calcium/B-6) 1 Each Tablet 1 Each PO Omeprazole 40 Mg Capsule.dr 1 Cap PO DAILY Cholestyramine Packet (Cholestyramine (With Sugar)) 4 Gm Powd.pack 4 Gm PO Gabapentin 600 Mg Tablet 600 Mg PO TID Folic Acid 1 Mg Tablet 1 Tab PO DAILY Clonidine Hcl 0.1 Mg Tablet 0.1 Mg PO BID Metformin Hcl 1,000 Mg Tablet 1,000 Mg PO BIDWMEALS Atorvastatin Calcium 40 Mg Tablet 1 Tab PO DAILY Metoprolol Succinate ( Xl ) (Metoprolol Succinate) 100 Mg Tab.er.24h 100 Mg PO BID Vitals/I & O Vital Sign - Last 24 Hours 01/27/17 01/27/17 01/27/17 01/27/17 15:00 16:09 16:39 19:00 Temp 97.7 97.9 97.7 97.9 Pulse 65 60 Resp 20 20 19 B/P (MAP) 150/58 (88) 129/56 (80) Pulse Ox 100 96 O2 Delivery Room Air Nasal Cannula Room Air O2 Flow Rate 20.0 2.0 01/27/17 01/27/17 01/27/17 01/27/17 20:00 21:51 21:51 21:51 Pulse 60 Resp 20 20 B/P (MAP) 129/56 Pulse Ox 96 96 O2 Delivery Nasal Cannula Nasal Cannula Nasal Cannula O2 Flow Rate 2.0 2.0 2.0 01/27/17 01/28/17 01/28/17 01/28/17 23:00 01:31 01:51 03:00 Temp 98.2 96.8 98.2 96.8 Pulse 56 50 Resp 18 20 20 18 B/P (MAP) 132/65 (87) 136/64 (88) Pulse Ox 95 95 95 98 O2 Delivery Room Air Nasal Cannula Nasal Cannula Room Air O2 Flow Rate 2.0 2.0 01/28/17 01/28/17 01/28/17 01/28/17 06:03 07:00 07:03 07:21 Temp 97.6 97.6 Pulse 65 Resp 20 18 20 20 B/P (MAP) 125/54 (77) Pulse Ox 98 96 98 O2 Delivery Nasal Cannula Nasal Cannula Nasal Cannula Nasal Cannula O2 Flow Rate 2.0 2.0 2.0 2.0 01/28/17 01/28/17 01/28/17 01/28/17 07:51 08:00 09:29 09:31 Pulse 50 Resp 20 20 B/P (MAP) 136/64 Pulse Ox 2 O2 Delivery Nasal Cannula Nasal Cannula Nasal Cannula O2 Flow Rate 2.0 2.0 01/28/17 01/28/17 10:11 12:37 Pulse 50 B/P (MAP) 136/64 Pulse Ox 100 O2 Delivery Room Air O2 Flow Rate JESSICA RAMIREZ III, DO Jan 28, 2017 14:40
[2017-01-28 15:00] VITALS: BP 126/64
[2017-01-28 19:00] VITALS: BP 121/68
[2017-01-28] MEDS: ATORVASTATIN CALCIUM 40 MG TABLET. PO SCH (22:14)
[2017-01-28 23:00] VITALS: BP 115/85
[2017-01-29 03:00] VITALS: BP 127/58
[2017-01-29 04:53] LABS: BASO % 0 % (0-3); EOS % 0 % (0-3); HEMATOCRIT 23.7 % (39.0-53.0); HEMOGLOBIN 7.7 g/dL (13.0-17.5); LYMPH # 0.6 x10^3/uL (1.0-4.8); LYMPH % 5 % (24-48); MEAN CORPUSCULAR HEMOGLOBIN 31 pg (25-35); MEAN CORPUSCULAR HGB CONC 33 g/dL (31-37); MEAN CORPUSCULAR VOLUME 96 fL (79-100); MONO % 6 % (0-9); NEUT % 89 % (31-73); PLATELET COUNT 182 x10^3/uL (140-400); RED BLOOD COUNT 2.47 x10^6/uL (4.30-5.70); RED CELL DISTRIBUTION WIDTH 17.3 % (11.5-14.5); WHITE BLOOD COUNT 12.5 x10^3/uL (4.0-11.0)
[2017-01-29] MEDS: PANTOPRAZOLE 40 MG TABLET.DR. PO SCH (05:59)
[2017-01-29] MEDS: HEPARIN PF for SUB-Q USE 5,000 UNIT/0.5 ML VIAL. SQ SCH ×3 (06:00→21:48)
[2017-01-29 06:04] LABS: CALCIUM 8.4 mg/dL (8.5-10.1); CREATININE 1.3 mg/dL (0.7-1.3); GFR 54.4; POTASSIUM 4.6 mmol/L (3.5-5.1)
[2017-01-29 07:00] VITALS: BP 128/63
[2017-01-29] MEDS: INSULIN ASPART 300 UNITS/3 ML INSULN.PEN SQ SCH ×3 (08:00→17:00)
[2017-01-29] MEDS: SENNOSIDES/DOCUSATE 8.6/50MG TABLET. PO SCH (09:00)
[2017-01-29] MEDS: POLYETHYLENE GLYCOL 3350 17 GM PACKET. PO SCH (09:00)
[2017-01-29] MEDS: oxyCODONE ER 15 MG TAB.ER.12H PO SCH ×2 (09:23→21:43)
[2017-01-29] MEDS: LACTOBACILLUS RHAMNOSUS GG 1 CAPSULE. PO SCH ×2 (09:24→21:41)
[2017-01-29] MEDS: GABAPENTIN 300 MG CAPSULE. PO SCH ×3 (09:24→21:00)
[2017-01-29] MEDS: CHOLECALCIFEROL (VITAMIN D3) 1,000 UNIT TABLET PO SCH (09:25)
[2017-01-29] MEDS: METOPROLOL SUCC 24HR ER 25 MG TAB.ER.24H. PO SCH ×2 (09:25→21:41)
[2017-01-29] MEDS: amLODIPine BESYLATE 5 MG TABLET PO SCH (09:26)
[2017-01-29] MEDS: FOLIC ACID 1 MG TABLET. PO SCH (09:26)
[2017-01-29] MEDS: DEXAMETHASONE SOD PHOS 4 MG/ML VIAL IV SCH (09:27)
[2017-01-29] MEDS: ASPIRIN ENTERIC COATED 81 MG TABLET.DR. PO SCH (09:29)
--- NOTE | 2017-01-29 10:21 | PDOC ---
PROGRESS NOTES Subjective Subjective He admits severe low back pain after end end of bed is elevated. Objective Objective Vital Signs Date Time Temp Pulse Resp B/P (MAP) Pulse Ox O2 Delivery O2 Flow Rate FiO2 01/29/17 09:26 61 128/63 01/29/17 09:23 12 93 Room Air 01/29/17 07:00 98.4 98.4 01/28/17 22:15 2.0 Physical Exam Physical Exam He continues with painfully limited lumbar spine ROM and no change noted with his neurological examination. He did not get up yet. 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 Comment Review of Relevant I have reviewed the following items bernadine (where applicable) has been applied. Labs Laboratory Tests Test 01/27/17 11:19 01/27/17 16:40 01/27/17 20:36 01/28/17 04:20 Glucose (Fingerstick) 135 mg/dL (70-99) 154 mg/dL (70-99) 133 mg/dL (70-99) White Blood Count 10.6 x10^3/uL (4.0-11.0) Red Blood Count 2.35 x10^6/uL (4.30-5.70) Hemoglobin 7.5 g/dL (13.0-17.5) Hematocrit 22.5 % (39.0-53.0) Mean Corpuscular Volume 96 fL (79-100) Mean Corpuscular Hemoglobin 32 pg (25-35) Mean Corpuscular Hemoglobin Concent 33 g/dL (31-37) Red Cell Distribution Width 17.0 % (11.5-14.5) Platelet Count 147 x10^3/uL (140-400) Neutrophils (%) (Auto) 87 % (31-73) Lymphocytes (%) (Auto) 6 % (24-48) Monocytes (%) (Auto) 7 % (0-9) Eosinophils (%) (Auto) 0 % (0-3) Basophils (%) (Auto) 0 % (0-3) Neutrophils # (Auto) 9.3 x10^3uL (1.8-7.7) Lymphocytes # (Auto) 0.6 x10^3/uL (1.0-4.8) Monocytes # (Auto) 0.7 x10^3/uL (0.0-1.1) Eosinophils # (Auto) 0.0 x10^3/uL (0.0-0.7) Basophils # (Auto) 0.0 x10^3/uL (0.0-0.2) Segmented Neutrophils % 93 % (35-66) Band Neutrophils % 1 % (0-9) Lymphocytes % 3 % (24-48) Monocytes % 3 % (0-10) Platelet Estimate Adequate (ADEQUATE) Polychromasia Present Anisocytosis Present Sodium Level 136 mmol/L (136-145) Potassium Level 4.9 mmol/L (3.5-5.1) Chloride Level 102 mmol/L (98-107) Carbon Dioxide Level 30 mmol/L (21-32) Anion Gap 4 (6-14) Blood Urea Nitrogen 39 mg/dL (8-26) Creatinine 1.3 mg/dL (0.7-1.3) Estimated GFR (Cockcroft-Gault) 54.4 Glucose Level 135 mg/dL (70-99) Calcium Level 8.2 mg/dL (8.5-10.1) Test 01/28/17 08:17 01/28/17 12:32 01/28/17 17:01 01/28/17 21:10 Glucose (Fingerstick) 120 mg/dL (70-99) 131 mg/dL (70-99) 121 mg/dL (70-99) 142 mg/dL (70-99) Test 01/29/17 03:52 01/29/17 07:39 White Blood Count 12.5 x10^3/uL (4.0-11.0) Red Blood Count 2.47 x10^6/uL (4.30-5.70) Hemoglobin 7.7 g/dL (13.0-17.5) Hematocrit 23.7 % (39.0-53.0) Mean Corpuscular Volume 96 fL (79-100) Mean Corpuscular Hemoglobin 31 pg (25-35) Mean Corpuscular Hemoglobin Concent 33 g/dL (31-37) Red Cell Distribution Width 17.3 % (11.5-14.5) Platelet Count 182 x10^3/uL (140-400) Neutrophils (%) (Auto) 89 % (31-73) Lymphocytes (%) (Auto) 5 % (24-48) Monocytes (%) (Auto) 6 % (0-9) Eosinophils (%) (Auto) 0 % (0-3) Basophils (%) (Auto) 0 % (0-3) Neutrophils # (Auto) 11.1 x10^3uL (1.8-7.7) Lymphocytes # (Auto) 0.6 x10^3/uL (1.0-4.8) Monocytes # (Auto) 0.8 x10^3/uL (0.0-1.1) Eosinophils # (Auto) 0.0 x10^3/uL (0.0-0.7) Basophils # (Auto) 0.0 x10^3/uL (0.0-0.2) Sodium Level 137 mmol/L (136-145) Potassium Level 4.6 mmol/L (3.5-5.1) Chloride Level 103 mmol/L (98-107) Carbon Dioxide Level 30 mmol/L (21-32) Anion Gap 4 (6-14) Blood Urea Nitrogen 38 mg/dL (8-26) Creatinine 1.3 mg/dL (0.7-1.3) Estimated GFR (Cockcroft-Gault) 54.4 Glucose Level 129 mg/dL (70-99) Calcium Level 8.4 mg/dL (8.5-10.1) Glucose (Fingerstick) 117 mg/dL (70-99) Laboratory Tests Test 01/28/17 12:32 01/28/17 17:01 01/28/17 21:10 01/29/17 03:52 Glucose (Fingerstick) 131 mg/dL (70-99) 121 mg/dL (70-99) 142 mg/dL (70-99) White Blood Count 12.5 x10^3/uL (4.0-11.0) Red Blood Count 2.47 x10^6/uL (4.30-5.70) Hemoglobin 7.7 g/dL (13.0-17.5) Hematocrit 23.7 % (39.0-53.0) Mean Corpuscular Volume 96 fL (79-100) Mean Corpuscular Hemoglobin 31 pg (25-35) Mean Corpuscular Hemoglobin Concent 33 g/dL (31-37) Red Cell Distribution Width 17.3 % (11.5-14.5) Platelet Count 182 x10^3/uL (140-400) Neutrophils (%) (Auto) 89 % (31-73) Lymphocytes (%) (Auto) 5 % (24-48) Monocytes (%) (Auto) 6 % (0-9) Eosinophils (%) (Auto) 0 % (0-3) Basophils (%) (Auto) 0 % (0-3) Neutrophils # (Auto) 11.1 x10^3uL (1.8-7.7) Lymphocytes # (Auto) 0.6 x10^3/uL (1.0-4.8) Monocytes # (Auto) 0.8 x10^3/uL (0.0-1.1) Eosinophils # (Auto) 0.0 x10^3/uL (0.0-0.7) Basophils # (Auto) 0.0 x10^3/uL (0.0-0.2) Sodium Level 137 mmol/L (136-145) Potassium Level 4.6 mmol/L (3.5-5.1) Chloride Level 103 mmol/L (98-107) Carbon Dioxide Level 30 mmol/L (21-32) Anion Gap 4 (6-14) Blood Urea Nitrogen 38 mg/dL (8-26) Creatinine 1.3 mg/dL (0.7-1.3) Estimated GFR (Cockcroft-Gault) 54.4 Glucose Level 129 mg/dL (70-99) Calcium Level 8.4 mg/dL (8.5-10.1) Test 01/29/17 07:39 Glucose (Fingerstick) 117 mg/dL (70-99) Microbiology 01/15/17 Blood Culture - Final, Complete NO GROWTH AFTER 5 DAYS Medications Current Medications Fentanyl Citrate (Fentanyl 2ml Vial) 50 mcg 1X ONCE IV Last administered on 21:52; Start 01/15/17 at 22:00; Stop 01/15/17 at 22:01; Status DC Sodium Chloride 1,000 ml @ 150 mls/hr 1X ONCE IV Last administered on 22:31; Start 01/15/17 at 22:00; Stop 01/16/17 at 04:39; Status DC Piperacillin Sod/ Tazobactam Sod 3.375 gm/Dextrose 50 ml @ 100 mls/hr 1X ONCE IV Last administered on 01/15/17 23:22; Start 01/15/17 at 23:30; Stop 01/15 at 23:59; Status DC Heparin Sodium (Porcine) (Heparin Sodium) 9,450 unit 1X ONCE IV Last administered on 01/15/17 23:30; Start 01/15/17 at 23:30; Stop 01/16/17 at 16 :41; Status DC Heparin Sodium/ Dextrose 500 ml @ 0 mls/hr CONT PRN IV SEE I/O RECORD Last administered on 01/16/17 16:26; Start 01/15/17 at 23:15; Stop 01/16/17 at 16 :41; Status DC Heparin Sodium (Porcine) (Heparin Sodium) 3,550 unit PRN Q6HRS PRN IV FOR UFH LEVEL LESS THAN 0.2; Start 01/15/17 at 23:15; Stop 01/16/17 at 16:41; Status DC Heparin Sodium (Porcine) (Heparin Sodium) 1,750 unit PRN Q6HRS PRN IV FOR UFH LEVEL 0.2 - 0.29; Start 01/15/17 at 23:15; Stop 01/16/17 at 16:41; Status DC Warfarin Sodium (Coumadin Per Pharmacy) 1 each PRN DAILY PRN MC PER PROTOCOL Last administered on 01/16/17 10:20; Start 01/15/17 at 23:15; Stop 01/16/17 at 16:39; Status DC Info (Anti-Coagulation Monitoring By Pharmacy) 1 each PRN DAILY PRN MC SEE COMMENTS Last administered on 01/16/17 10:17; Start 01/15/17 at 23:30; Stop 01/18/17 at 14:31; Status DC Ondansetron HCl (Zofran) 4 mg PRN Q8HRS PRN IV NAUSEA/VOMITING; Start at 23:15; Stop 01/16/17 at 23:14; Status DC Fentanyl Citrate (Fentanyl 2ml Vial) 50 mcg PRN Q2HR PRN IV SEVERE PAIN Last administered on 01/16/17 01:33; Start 01/15/17 at 23:15; Stop 01/16/17 at 02 :47; Status DC Piperacillin Sod/ Tazobactam Sod (Zosyn Per Pharmacy) 1 each PRN DAILY PRN MC SEE COMMENTS; Start 01/15/17 at 23:15; Stop 01/16/17 at 02:54; Status DC Sodium Chloride 1,000 ml @ 150 mls/hr 1X ONCE IV Last administered on 01:34; Start 01/15/17 at 23:45; Stop 01/16/17 at 06:24; Status DC Albuterol Sulfate (Ventolin Neb Soln) 2.5 mg PRN Q3HRS PRN NEB WHEEZING Last administered on 01/16/17 11:24; Start 01/15/17 at 23:30 Morphine Sulfate 2 mg 1X ONCE IV Last administered on 01/15/17 23:47; Start 01/16/17 at 00:00; Stop 01/16/17 at 00:01; Status DC Fentanyl Citrate (Fentanyl 2ml Vial) 75 mcg PRN Q2HR PRN IV SEVERE PAIN Last administered on 01/16/17 13:56; Start 01/16/17 at 02:45; Stop 01/16/17 at 16 :41; Status DC Piperacillin Sod/ Tazobactam Sod (Zosyn Per Pharmacy) 1 each PRN DAILY PRN MC SEE COMMENTS; Start 01/16/17 at 02:45; Stop 01/17/17 at 16:01; Status DC Piperacillin Sod/ Tazobactam Sod (Zosyn) 2.25 gm Q6HRS IVP Last administered on 01/17/17 12:01; Start 01/16/17 at 06:00; Stop 01/17/17 at 16:01; Status DC Info (Anti-Coagulation Monitoring By Pharmacy) 1 each PRN DAILY PRN MC SEE COMMENTS; Start 01/16/17 at 09:45; Status Cancel Warfarin Sodium (Coumadin) 5 mg 1X WARF ONCE PO ; Start 01/16/17 at 16:00; Stop 01/16/17 at 16:39; Status DC Lactobacillus Rhamnosus (Culturelle) 1 cap BID PO Last administered on 09:24; Start 01/16/17 at 21:00 Magnesium Sulfate/ Dextrose 50 ml @ 25 mls/hr 1X ONCE IV Last administered on 01/16/17 12:45; Start 01/16/17 at 11:30; Stop 01/16/17 at 13:29; Status DC Linezolid 300 ml @ 300 mls/hr Q12HR IV Last administered on 01/16/17 20:58; Start 01/16/17 at 12:00; Stop 01/17/17 at 08:14; Status DC Iohexol (Omnipaque 240 Mg/ml) 30 ml 1X ONCE PO ; Start 01/16/17 at 12:00; Stop 01/16/17 at 12:01; Status DC Info (Do NOT chart on this entry -- for MONITORING) 1 each PRN DAILY PRN MC SEE COMMENTS; Start 01/16/17 at 12:00; Stop 01/18/17 at 11:59; Status DC Magnesium Sulfate/ Dextrose 50 ml @ 25 mls/hr PRN DAILY PRN IV for Mag < 1.7 on am labs; Start 01/16/17 at 13:15 Metoprolol Succinate (Toprol Xl) 50 mg BID PO Last administered on 01/21/17 08 :11; Start 01/16/17 at 21:00; Stop 01/21/17 at 08:33; Status DC Sodium Chloride 1,000 ml @ 100 mls/hr Q10H IV Last administered on 01/18/17 05:45; Start 01/16/17 at 13:45; Stop 01/18/17 at 11:44; Status DC Aspirin (Charmaine Aspirin) 325 mg DAILYWBKFT PO Last administered on 01/19/17 08: 35; Start 01/17/17 at 08:00; Stop 01/19/17 at 09:49; Status DC Atorvastatin Calcium (Lipitor) 40 mg QHS PO Last administered on 01/28/17 22: 14; Start 01/16/17 at 21:00 Vitamin D (Vitamin D3) 2,000 unit DAILY PO Last administered on 01/29/17 09: 25; Start 01/17/17 at 09:00 Clonidine HCl (Catapres) 0.1 mg BID PO Last administered on 01/19/17 08:35; Start 01/16/17 at 21:00; Stop 01/19/17 at 09:52; Status DC Folic Acid (Folic Acid) 1 mg DAILY PO Last administered on 01/29/17 09:26; Start 01/17/17 at 09:00 Loperamide HCl (Imodium) 2 mg Q2H PRN PO diarrhea; Start 01/16/17 at 16:45 Metoprolol Succinate (Toprol Xl) 100 mg BID PO ; Start 01/16/17 at 21:00; Status UNV Gabapentin (Neurontin) 600 mg TID PO Last administered on 01/29/17 09:24; Start 01/16/17 at 21:00 Pantoprazole Sodium (Protonix) 40 mg DAILYAC PO Last administered on 05:59; Start 01/17/17 at 07:30 Insulin Aspart (NovoLOG) 0-9 UNITS TIDWMEALS SQ Last administered on 01/22/17 17:00; Start 01/16/17 at 17:00 Dextrose (Dextrose 50%-Water Syringe) 12.5 gm PRN Q15MIN PRN IV SEE COMMENTS; Start 01/16/17 at 16:45 Dexamethasone Sodium Phosphate (Decadron) 10 mg 1X ONCE IV Last administered on 01/16/17 17:05; Start 01/16/17 at 16:45; Stop 01/16/17 at 16:46; Status DC Dexamethasone Sodium Phosphate (Decadron) 4 mg Q6HRS IV Last administered on 05:58; Start 01/17/17 at 00:00; Stop 01/18/17 at 15:31; Status DC Morphine Sulfate 2 mg PRN Q2HR PRN IV PAIN Last administered on 01/24/17 19:52 ; Start 01/16/17 at 16:45; Stop 01/24/17 at 22:39; Status DC Oxycodone/ Acetaminophen (Percocet 10/325) 1 tab PRN Q4HRS PRN PO pain Last administered on 01/28/17 22:14; Start 01/16/17 at 16:45 Heparin Sodium (Porcine) (Heparin Sq) 5,000 unit Q8HRS SQ Last administered on 01/23/17 06:00; Start 01/16/17 at 22:00; Stop 01/23/17 at 13:16; Status DC Diazepam (Valium) 5 mg PRN Q6HRS PRN IV SEIZURES; Start 01/16/17 at 18:30; Status Cancel Diazepam (Valium) 5 mg PRN Q6HRS PRN PO TREMORS Last administered on 14:04; Start 01/16/17 at 18:45 Fentanyl Citrate (Fentanyl 2ml Vial) 100 mcg STK-MED ONCE .ROUTE ; Start at 10:08; Stop 01/17/17 at 10:09; Status DC Midazolam HCl (Versed) 2 mg STK-MED ONCE .ROUTE ; Start 01/17/17 at 10:08; Stop 01/17/17 at 10:09; Status DC Lidocaine/Sodium Bicarbonate (Buffered Lidocaine 1%) 20 ml 1X ONCE IJ Last administered on 01/17/17 10:51; Start 01/17/17 at 10:15; Stop 01/17/17 at 10:16 ; Status DC Midazolam HCl (Versed) 2 mg 1X ONCE IV Last administered on 01/17/17 10:52; Start 01/17/17 at 10:15; Stop 01/17/17 at 10:16; Status DC Fentanyl Citrate (Fentanyl 2ml Vial) 100 mcg 1X ONCE IV Last administered on 01/17/17 10:52; Start 01/17/17 at 10:15; Stop 01/17/17 at 10:16; Status DC Lidocaine/Sodium Bicarbonate (Buffered Lidocaine 1%) 20 ml STK-MED ONCE IJ ; Start 01/17/17 at 10:14; Stop 01/17/17 at 10:15; Status DC Piperacillin Sod/ Tazobactam Sod (Zosyn) 3.375 gm Q6HRS IVP Last administered on 01/18/17 06:00; Start 01/17/17 at 18:00; Stop 01/18/17 at 10:42; Status DC Dexamethasone Sodium Phosphate (Decadron) 4 mg Q12HR IV Last administered on 09:27; Start 01/18/17 at 21:00 Aspirin (Ecotrin) 81 mg DAILYWBKFT PO Last administered on 01/29/17 09:29; Start 01/20/17 at 08:00 Amlodipine Besylate (Norvasc) 10 mg DAILY PO Last administered on 01/24/17 09: 35; Start 01/19/17 at 10:00; Stop 01/25/17 at 12:44; Status DC Oxycodone HCl (OxyCONTIN) 30 mg Q12HR PO Last administered on 01/29/17 09:23 ; Start 01/19/17 at 11:45 Senna/Docusate Sodium (Senna Plus) 2 tab DAILY PO Last administered on 09:28; Start 01/19/17 at 12:00 Gadobutrol (Gadavist) 10 mmol 1X ONCE IV ; Start 01/19/17 at 15:45; Stop at 15:46; Status DC Sodium Chloride 1,000 ml @ 75 mls/hr [id number] IV Last administered on 02:12; Start 01/20/17 at 11:15; Stop 01/21/17 at 18:06; Status DC Polyethylene Glycol (miraLAX PACKET) 17 gm DAILY PO Last administered on 09:28; Start 01/20/17 at 15:00 Metoprolol Succinate (Toprol Xl) 50 mg DAILY PO Last administered on 08:25; Start 01/21/17 at 09:00; Stop 01/26/17 at 09:48; Status DC Bacitracin 85664 unit/Sodium Chloride 1,000 ml @ 1,000 mls/hr 1X PERIOP ONCE IRR Last administered on 01/24/17 12:59; Start 01/24/17 at 06:00; Stop at 06:59; Status DC Ondansetron HCl (Zofran) 4 mg PRN Q6HRS PRN IV NAUSEA/VOMITING; Start 01/24/17 at 07:00; Stop 01/25/17 at 06:59; Status DC Fentanyl Citrate (Fentanyl 2ml Vial) 25 mcg PRN Q5MIN PRN IV MILD PAIN; Start 01/24/17 at 07:00; Stop 01/24/17 at 22:48; Status DC Fentanyl Citrate (Fentanyl 2ml Vial) 50 mcg PRN Q5MIN PRN IV MODERATE PAIN Last administered on 01/24/17 19:01; Start 01/24/17 at 07:00; Stop 01/24/17 at 22:48; Status DC Morphine Sulfate 1 mg PRN Q10MIN PRN IV SEVERE PAIN; Start 01/24/17 at 07:00; Stop 01/24/17 at 22:48; Status DC Ringer's Solution 1,000 ml @ 30 mls/hr Q24H IV Last administered on 01/24/17 11:40; Start 01/24/17 at 07:00; Stop 01/24/17 at 18:59; Status DC Lidocaine HCl (Xylocaine-Mpf 1% Vial) 2 ml PRN 1X PRN ID IV START; Start at 07:00; Stop 01/25/17 at 06:59; Status DC Hydromorphone HCl (Dilaudid) 0.5 mg PRN Q10MIN PRN IV SEV PAIN, Second choice; Start 01/24/17 at 07:00; Stop 01/24/17 at 22:48; Status DC Prochlorperazine Edisylate (Compazine) 5 mg PACU PRN PRN IV NAUSEA, MRX1; Start 01/24/17 at 07:00; Stop 01/24/17 at 22:48; Status DC Cefazolin Sodium/ Dextrose 50 ml @ 100 mls/hr 1X PREOP PRN IV PRE-OP Last administered on 01/24/17 12:25; Start 01/23/17 at 13:15; Stop 01/24/17 at 18:00 ; Status DC Gelatin (Gelfoam Size 100) 1 each STK-MED ONCE .ROUTE Last administered on 12:59; Start 01/24/17 at 07:30; Stop 01/24/17 at 07:31; Status DC Bupivacaine HCl/ Epinephrine Bitart (Sensorcain-Mpf Epi 0.5%-1:[id number]) 30 ml STK -MED ONCE .ROUTE Last administered on 01/24/17 12:59; Start 01/24/17 at 07:31 ; Stop 01/24/17 at 07:32; Status DC Ketorolac Tromethamine (Toradol For Or Only) 60 mg STK-MED ONCE .ROUTE Last administered on 01/24/17 12:59; Start 01/24/17 at 07:31; Stop 01/24/17 at 07:32 ; Status DC Thrombin 20,000 unit STK-MED ONCE TP Last administered on 11/8/17at 12:59; Start 01/24/17 at 07:31; Stop 01/24/17 at 07:32; Status DC Midazolam HCl (Versed) 2 mg STK-MED ONCE .ROUTE ; Start 01/24/17 at 11:05; Stop 01/24/17 at 11:06; Status DC Fentanyl Citrate (Fentanyl 5ml Vial) 250 mcg STK-MED ONCE .ROUTE ; Start at 11:05; Stop 01/24/17 at 11:06; Status DC Rocuronium [place] (Zemuron) 50 mg STK-MED ONCE .ROUTE ; Start 01/24/17 at 11:05 ; Stop 01/24/17 at 11:06; Status DC Remifentanil HCl (Ultiva) 2 mg STK-MED ONCE IV ; Start 01/24/17 at 11:05; Stop 01/24/17 at 11:06; Status DC Propofol 50 ml @ As Directed STK-MED ONCE IV ; Start 01/24/17 at 11:09; Stop at 11:10; Status DC Multi-Ingred Cream/Lotion/Oil/ Oint (Artificial Tears Eye Oint) 7 jose a STK-MED ONCE .ROUTE ; Start 01/24/17 at 11:09; Stop 01/24/17 at 11:10; Status DC Propofol 0 ml @ As Directed STK-MED ONCE IV ; Start 01/24/17 at 11:10; Stop 01/24/17 at 11:11; Status DC Lidocaine HCl (Lidocaine Pf 2% Vial) 5 ml STK-MED ONCE .ROUTE ; Start 01/24/17 at 11:10; Stop 01/24/17 at 11:11; Status DC Dexamethasone Sodium Phosphate (Decadron) 20 mg STK-MED ONCE .ROUTE ; Start 01/24/17 at 11:10; Stop 01/24/17 at 11:11; Status DC Ondansetron HCl (Zofran) 4 mg STK-MED ONCE .ROUTE ; Start 01/24/17 at 11:10; Stop 01/24/17 at 11:11; Status DC Desflurane (Suprane) 90 ml STK-MED ONCE IH ; Start 01/24/17 at 11:10; Stop 01/24 at 11:11; Status DC Sodium Chloride (Sodium Chloride) 50 ml STK-MED ONCE IJ ; Start 01/24/17 at 11: 11; Stop 01/24/17 at 11:12; Status DC Phenylephrine HCl 1 mg STK-MED ONCE IV ; Start 01/24/17 at 12:02; Stop 01/24/17 at 12:03; Status DC Glycopyrrolate (Robinul) 1 mg STK-MED ONCE .ROUTE ; Start 01/24/17 at 12:28; Stop 01/24/17 at 12:29; Status DC Neostigmine Methylsulfate 5 mg STK-MED ONCE .ROUTE ; Start 01/24/17 at 12:28; Stop 01/24/17 at 12:29; Status DC Ephedrine Sulfate (Akovaz) 50 mg STK-MED ONCE .ROUTE ; Start 01/24/17 at 14:05; Stop 01/24/17 at 14:06; Status DC Albumin Human 500 ml @ As Directed STK-MED ONCE IV ; Start 01/24/17 at 14:07; Stop 01/24/17 at 14:08; Status DC Remifentanil HCl (Ultiva) 2 mg STK-MED ONCE IV ; Start 01/24/17 at 14:55; Stop 01/24/17 at 14:56; Status DC Propofol 50 ml @ As Directed STK-MED ONCE IV ; Start 01/24/17 at 14:57; Stop at 14:58; Status DC Propofol 20 ml @ As Directed STK-MED ONCE IV ; Start 01/24/17 at 14:57; Stop at 14:58; Status DC Propofol 20 ml @ As Directed STK-MED ONCE IV ; Start 01/24/17 at 15:09; Stop at 15:10; Status DC Propofol 50 ml @ As Directed STK-MED ONCE IV ; Start 01/24/17 at 15:50; Stop at 15:51; Status DC Cefazolin Sodium/ Dextrose 50 ml @ As Directed STK-MED ONCE IV ; Start 01/24/17 at 16:20; Stop 01/24/17 at 16:21; Status DC Phenylephrine HCl 1 mg STK-MED ONCE IV ; Start 01/24/17 at 16:54; Stop 01/24/17 at 16:55; Status DC Propofol 50 ml @ As Directed STK-MED ONCE IV ; Start 01/24/17 at 17:10; Stop at 17:11; Status DC Remifentanil HCl (Ultiva) 2 mg STK-MED ONCE IV ; Start 01/24/17 at 17:10; Stop 01/24/17 at 17:11; Status DC Propofol 50 ml @ As Directed STK-MED ONCE IV ; Start 01/24/17 at 17:30; Stop at 17:31; Status DC Hydromorphone HCl (Dilaudid) 2 mg STK-MED ONCE .ROUTE ; Start 01/24/17 at 18:07 ; Stop 01/24/17 at 18:08; Status DC Fentanyl Citrate (Fentanyl 2ml Vial) 100 mcg STK-MED ONCE .ROUTE ; Start at 18:07; Stop 01/24/17 at 18:08; Status DC Morphine Sulfate 2 mg PRN Q2HR PRN IV SEVERE PAIN Last administered on 07:21; Start 01/24/17 at 22:45 Amlodipine Besylate (Norvasc) 5 mg DAILY PO Last administered on 01/29/17 09: 26; Start 01/26/17 at 09:00 Sodium Chloride 1,000 ml @ 75 mls/hr 1X ONCE IV Last administered on 13:25; Start 01/25/17 at 12:45; Stop 01/26/17 at 02:04; Status DC Metoprolol Succinate (Toprol Xl) 25 mg BID PO Last administered on 01/29/17 09:25; Start 01/26/17 at 21:00 Heparin Sodium (Porcine) (Heparin Sq) 5,000 unit Q8HRS SQ Last administered on 01/29/17 06:00; Start 01/27/17 at 14:00 Active Scripts Active Reported Imodium A-D (Loperamide HCl) 2 Mg Capsule 2 Mg PO Aspirin 325 Mg Tablet 1 Tab PO DAILY Vitamin D3 (Cholecalciferol (Vitamin D3)) 1,000 Unit Tablet 2,000 Unit PO Vicodin Es 7.5-300 Mg Tablet (Hydrocodone Bit/Acetaminophen) 1 Each Tablet 1 Each PO Q6H PRN Humira (Adalimumab) 40 Mg/0.8 Ml Pen.ij.kit 1 Syr SQ Q2WKS Folbic Rf Tablet (B12/Levomefolate Calcium/B-6) 1 Each Tablet 1 Each PO Omeprazole 40 Mg Capsule. 1 Cap PO DAILY Cholestyramine Packet (Cholestyramine (With Sugar)) 4 Gm Powd.pack 4 Gm PO Gabapentin 600 Mg Tablet 600 Mg PO TID Folic Acid 1 Mg Tablet 1 Tab PO DAILY Clonidine Hcl 0.1 Mg Tablet 0.1 Mg PO BID Metformin Hcl 1,000 Mg Tablet 1,000 Mg PO BIDWMEALS Atorvastatin Calcium 40 Mg Tablet 1 Tab PO DAILY Metoprolol Succinate ( Xl ) (Metoprolol Succinate) 100 Mg Tab.er.24h 100 Mg PO BID Vitals/I & O Vital Sign - Last 24 Hours 01/28/17 01/28/17 01/28/17 01/28/17 11:00 12:37 15:00 15:16 Temp 98.2 98.0 98.2 98.0 Pulse 75 50 71 Resp 18 18 20 B/P (MAP) 131/58 (82) 136/64 126/64 (84) Pulse Ox 96 96 O2 Delivery Room Air Room Air Room Air 01/28/17 01/28/17 01/28/17 01/28/17 19:00 20:00 22:14 22:14 Temp 96.6 96.6 Pulse 54 54 Resp 16 20 B/P (MAP) 121/68 (85) 121/68 Pulse Ox 99 99 O2 Delivery Room Air Nasal Cannula Nasal Cannula O2 Flow Rate 2.0 2.0 01/28/17 01/28/17 01/28/17 01/29/17 22:15 23:00 23:14 02:15 Temp 97.5 97.5 Pulse 72 Resp 20 13 20 20 B/P (MAP) 115/85 (95) Pulse Ox 99 94 96 96 O2 Delivery Nasal Cannula BiPAP/CPAP BiPAP/CPAP BiPAP/CPAP O2 Flow Rate 2.0 01/29/17 01/29/17 01/29/17 01/29/17 03:00 07:00 09:23 09:25 Temp 97.5 98.4 97.5 98.4 Pulse 53 61 61 Resp 16 18 12 B/P (MAP) 127/58 (81) 128/63 (84) 128/63 Pulse Ox 96 100 93 O2 Delivery Room Air Room Air Room Air 01/29/17 09:26 Pulse 61 B/P (MAP) 128/63 FARHAT MOLINA MD Jan 29, 2017 10:21
[2017-01-29 11:00] VITALS: BP 123/51
[2017-01-29] MEDS: HYDROcodone/APAP 10/325 1 TAB TABLET PO PRN ×2 (12:34→21:45)
--- NOTE | 2017-01-29 12:39 | PDOC ---
PROGRESS NOTES Subjective Subjective HPI - Bone lesion due to fracture. He also has multiple other lesions in the spine. Thought to be benign. Now s/p L1 to L4 fusion laminectomy L4, Bx L3 and removal of L4 hematoma on10/2016. ROS - has back pain Objective Objective Vital Signs Date Time Temp Pulse Resp B/P (MAP) Pulse Ox O2 Delivery O2 Flow Rate FiO2 01/29/17 12:34 12 95 Room Air 01/29/17 09:26 61 128/63 01/29/17 07:00 98.4 98.4 01/28/17 22:15 2.0 Intake and Output 01/29/17 07:00 Intake Total 850 ml Output Total 1300 ml Balance -450 ml Intake Oral 850 ml Output Urine Total 1300 ml Physical Exam Heart: Normal S1, Normal S2 General: Alert, Oriented X3 Lungs: Clear to auscultation Neuro: Normal speech Psych/Mental Status: Mental status NL Assessment Assessment Problems Medical Problems: (1) Elevated d-dimer Status: Acute (2) Elevated serum creatinine Status: Acute (3) Hypoxia Status: Acute (4) Lactic acidosis Status: Acute (5) 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 Bone lesion due to fracture. He also has multiple other lesions in the spine. Thought to be benign. Now s/p L1 to L4 fusion laminectomy L4, Bx L3 and removal of L4 hematoma on10/2016. Path pending. Bone scan does not reveal uptake and hence multiple myeloma is suspected. Myeloma labs normal. Bone survey 01/18/17: Sclerotic foci in the cervical spine. These are likely benign in view of the lack of abnormal uptake on the current bone scan. Distracted Chance type fracture of the L3 vertebral body, better demonstrated on previous CT images. Since the CT chest, abdomen and pelvis did not reveal a clear primary focus, he had biopsy of the L3 vertebral lesion - done 01/17/17, non-diagnostic. I d/w IR, he feels that this may just be an acute fracture. MRI reviewed. There is autofusion of L1-L2 and L3-L5 with a distracted fracture extending through the anterior, middle and posterior columns of the L3 vertebrae as well as the posterior elements at the L3 vertebral level compatible with a Chance fracture. There is disruption of the anterior and posterior longitudinal ligaments as well as the posterior ligamentous complex. There is an epidural hematoma resulting in severe spinal canal stenosis and likely cauda equina syndrome. s/p Surgery 01/24/17. Hematoma noted. PSA normal. 2. Left renal lesion, u/s ultrasound of the kidney does not reveal malignancy. 3. Anemia. This is likely secondary to malignancy. I will continue to monitor. Hb 7.7 Comment Review of Relevant I have reviewed the following items bernadine (where applicable) has been applied. Labs Laboratory Tests Test 01/27/17 16:40 01/27/17 20:36 01/28/17 04:20 01/28/17 08:17 Glucose (Fingerstick) 154 mg/dL (70-99) 133 mg/dL (70-99) 120 mg/dL (70-99) White Blood Count 10.6 x10^3/uL (4.0-11.0) Red Blood Count 2.35 x10^6/uL (4.30-5.70) Hemoglobin 7.5 g/dL (13.0-17.5) Hematocrit 22.5 % (39.0-53.0) Mean Corpuscular Volume 96 fL (79-100) Mean Corpuscular Hemoglobin 32 pg (25-35) Mean Corpuscular Hemoglobin Concent 33 g/dL (31-37) Red Cell Distribution Width 17.0 % (11.5-14.5) Platelet Count 147 x10^3/uL (140-400) Neutrophils (%) (Auto) 87 % (31-73) Lymphocytes (%) (Auto) 6 % (24-48) Monocytes (%) (Auto) 7 % (0-9) Eosinophils (%) (Auto) 0 % (0-3) Basophils (%) (Auto) 0 % (0-3) Neutrophils # (Auto) 9.3 x10^3uL (1.8-7.7) Lymphocytes # (Auto) 0.6 x10^3/uL (1.0-4.8) Monocytes # (Auto) 0.7 x10^3/uL (0.0-1.1) Eosinophils # (Auto) 0.0 x10^3/uL (0.0-0.7) Basophils # (Auto) 0.0 x10^3/uL (0.0-0.2) Segmented Neutrophils % 93 % (35-66) Band Neutrophils % 1 % (0-9) Lymphocytes % 3 % (24-48) Monocytes % 3 % (0-10) Platelet Estimate Adequate (ADEQUATE) Polychromasia Present Anisocytosis Present Sodium Level 136 mmol/L (136-145) Potassium Level 4.9 mmol/L (3.5-5.1) Chloride Level 102 mmol/L (98-107) Carbon Dioxide Level 30 mmol/L (21-32) Anion Gap 4 (6-14) Blood Urea Nitrogen 39 mg/dL (8-26) Creatinine 1.3 mg/dL (0.7-1.3) Estimated GFR (Cockcroft-Gault) 54.4 Glucose Level 135 mg/dL (70-99) Calcium Level 8.2 mg/dL (8.5-10.1) Test 01/28/17 12:32 01/28/17 17:01 01/28/17 21:10 01/29/17 03:52 Glucose (Fingerstick) 131 mg/dL (70-99) 121 mg/dL (70-99) 142 mg/dL (70-99) White Blood Count 12.5 x10^3/uL (4.0-11.0) Red Blood Count 2.47 x10^6/uL (4.30-5.70) Hemoglobin 7.7 g/dL (13.0-17.5) Hematocrit 23.7 % (39.0-53.0) Mean Corpuscular Volume 96 fL (79-100) Mean Corpuscular Hemoglobin 31 pg (25-35) Mean Corpuscular Hemoglobin Concent 33 g/dL (31-37) Red Cell Distribution Width 17.3 % (11.5-14.5) Platelet Count 182 x10^3/uL (140-400) Neutrophils (%) (Auto) 89 % (31-73) Lymphocytes (%) (Auto) 5 % (24-48) Monocytes (%) (Auto) 6 % (0-9) Eosinophils (%) (Auto) 0 % (0-3) Basophils (%) (Auto) 0 % (0-3) Neutrophils # (Auto) 11.1 x10^3uL (1.8-7.7) Lymphocytes # (Auto) 0.6 x10^3/uL (1.0-4.8) Monocytes # (Auto) 0.8 x10^3/uL (0.0-1.1) Eosinophils # (Auto) 0.0 x10^3/uL (0.0-0.7) Basophils # (Auto) 0.0 x10^3/uL (0.0-0.2) Sodium Level 137 mmol/L (136-145) Potassium Level 4.6 mmol/L (3.5-5.1) Chloride Level 103 mmol/L (98-107) Carbon Dioxide Level 30 mmol/L (21-32) Anion Gap 4 (6-14) Blood Urea Nitrogen 38 mg/dL (8-26) Creatinine 1.3 mg/dL (0.7-1.3) Estimated GFR (Cockcroft-Gault) 54.4 Glucose Level 129 mg/dL (70-99) Calcium Level 8.4 mg/dL (8.5-10.1) Test 01/29/17 07:39 01/29/17 12:25 Glucose (Fingerstick) 117 mg/dL (70-99) 111 mg/dL (70-99) Laboratory Tests Test 01/28/17 17:01 01/28/17 21:10 01/29/17 03:52 01/29/17 07:39 Glucose (Fingerstick) 121 mg/dL (70-99) 142 mg/dL (70-99) 117 mg/dL (70-99) White Blood Count 12.5 x10^3/uL (4.0-11.0) Red Blood Count 2.47 x10^6/uL (4.30-5.70) Hemoglobin 7.7 g/dL (13.0-17.5) Hematocrit 23.7 % (39.0-53.0) Mean Corpuscular Volume 96 fL (79-100) Mean Corpuscular Hemoglobin 31 pg (25-35) Mean Corpuscular Hemoglobin Concent 33 g/dL (31-37) Red Cell Distribution Width 17.3 % (11.5-14.5) Platelet Count 182 x10^3/uL (140-400) Neutrophils (%) (Auto) 89 % (31-73) Lymphocytes (%) (Auto) 5 % (24-48) Monocytes (%) (Auto) 6 % (0-9) Eosinophils (%) (Auto) 0 % (0-3) Basophils (%) (Auto) 0 % (0-3) Neutrophils # (Auto) 11.1 x10^3uL (1.8-7.7) Lymphocytes # (Auto) 0.6 x10^3/uL (1.0-4.8) Monocytes # (Auto) 0.8 x10^3/uL (0.0-1.1) Eosinophils # (Auto) 0.0 x10^3/uL (0.0-0.7) Basophils # (Auto) 0.0 x10^3/uL (0.0-0.2) Sodium Level 137 mmol/L (136-145) Potassium Level 4.6 mmol/L (3.5-5.1) Chloride Level 103 mmol/L (98-107) Carbon Dioxide Level 30 mmol/L (21-32) Anion Gap 4 (6-14) Blood Urea Nitrogen 38 mg/dL (8-26) Creatinine 1.3 mg/dL (0.7-1.3) Estimated GFR (Cockcroft-Gault) 54.4 Glucose Level 129 mg/dL (70-99) Calcium Level 8.4 mg/dL (8.5-10.1) Test 01/29/17 12:25 Glucose (Fingerstick) 111 mg/dL (70-99) Microbiology 01/15/17 Blood Culture - Final, Complete NO GROWTH AFTER 5 DAYS Medications Current Medications Fentanyl Citrate (Fentanyl 2ml Vial) 50 mcg 1X ONCE IV Last administered on 21:52; Start 01/15/17 at 22:00; Stop 01/15/17 at 22:01; Status DC Sodium Chloride 1,000 ml @ 150 mls/hr 1X ONCE IV Last administered on 22:31; Start 01/15/17 at 22:00; Stop 01/16/17 at 04:39; Status DC Piperacillin Sod/ Tazobactam Sod 3.375 gm/Dextrose 50 ml @ 100 mls/hr 1X ONCE IV Last administered on 01/15/17 23:22; Start 01/15/17 at 23:30; Stop 01/15 at 23:59; Status DC Heparin Sodium (Porcine) (Heparin Sodium) 9,450 unit 1X ONCE IV Last administered on 01/15/17 23:30; Start 01/15/17 at 23:30; Stop 01/16/17 at 16 :41; Status DC Heparin Sodium/ Dextrose 500 ml @ 0 mls/hr CONT PRN IV SEE I/O RECORD Last administered on 01/16/17 16:26; Start 01/15/17 at 23:15; Stop 01/16/17 at 16 :41; Status DC Heparin Sodium (Porcine) (Heparin Sodium) 3,550 unit PRN Q6HRS PRN IV FOR UFH LEVEL LESS THAN 0.2; Start 01/15/17 at 23:15; Stop 01/16/17 at 16:41; Status DC Heparin Sodium (Porcine) (Heparin Sodium) 1,750 unit PRN Q6HRS PRN IV FOR UFH LEVEL 0.2 - 0.29; Start 01/15/17 at 23:15; Stop 01/16/17 at 16:41; Status DC Warfarin Sodium (Coumadin Per Pharmacy) 1 each PRN DAILY PRN MC PER PROTOCOL Last administered on 01/16/17 10:20; Start 01/15/17 at 23:15; Stop 01/16/17 at 16:39; Status DC Info (Anti-Coagulation Monitoring By Pharmacy) 1 each PRN DAILY PRN MC SEE COMMENTS Last administered on 01/16/17 10:17; Start 01/15/17 at 23:30; Stop 01/18/17 at 14:31; Status DC Ondansetron HCl (Zofran) 4 mg PRN Q8HRS PRN IV NAUSEA/VOMITING; Start at 23:15; Stop 01/16/17 at 23:14; Status DC Fentanyl Citrate (Fentanyl 2ml Vial) 50 mcg PRN Q2HR PRN IV SEVERE PAIN Last administered on 01/16/17 01:33; Start 01/15/17 at 23:15; Stop 01/16/17 at 02 :47; Status DC Piperacillin Sod/ Tazobactam Sod (Zosyn Per Pharmacy) 1 each PRN DAILY PRN MC SEE COMMENTS; Start 01/15/17 at 23:15; Stop 01/16/17 at 02:54; Status DC Sodium Chloride 1,000 ml @ 150 mls/hr 1X ONCE IV Last administered on 01:34; Start 01/15/17 at 23:45; Stop 01/16/17 at 06:24; Status DC Albuterol Sulfate (Ventolin Neb Soln) 2.5 mg PRN Q3HRS PRN NEB WHEEZING Last administered on 01/16/17 11:24; Start 01/15/17 at 23:30 Morphine Sulfate 2 mg 1X ONCE IV Last administered on 01/15/17 23:47; Start 01/16/17 at 00:00; Stop 01/16/17 at 00:01; Status DC Fentanyl Citrate (Fentanyl 2ml Vial) 75 mcg PRN Q2HR PRN IV SEVERE PAIN Last administered on 01/16/17 13:56; Start 01/16/17 at 02:45; Stop 01/16/17 at 16 :41; Status DC Piperacillin Sod/ Tazobactam Sod (Zosyn Per Pharmacy) 1 each PRN DAILY PRN MC SEE COMMENTS; Start 01/16/17 at 02:45; Stop 01/17/17 at 16:01; Status DC Piperacillin Sod/ Tazobactam Sod (Zosyn) 2.25 gm Q6HRS IVP Last administered on 01/17/17 12:01; Start 01/16/17 at 06:00; Stop 01/17/17 at 16:01; Status DC Info (Anti-Coagulation Monitoring By Pharmacy) 1 each PRN DAILY PRN MC SEE COMMENTS; Start 01/16/17 at 09:45; Status Cancel Warfarin Sodium (Coumadin) 5 mg 1X WARF ONCE PO ; Start 01/16/17 at 16:00; Stop 01/16/17 at 16:39; Status DC Lactobacillus Rhamnosus (Culturelle) 1 cap BID PO Last administered on 09:24; Start 01/16/17 at 21:00 Magnesium Sulfate/ Dextrose 50 ml @ 25 mls/hr 1X ONCE IV Last administered on 01/16/17 12:45; Start 01/16/17 at 11:30; Stop 01/16/17 at 13:29; Status DC Linezolid 300 ml @ 300 mls/hr Q12HR IV Last administered on 01/16/17 20:58; Start 01/16/17 at 12:00; Stop 01/17/17 at 08:14; Status DC Iohexol (Omnipaque 240 Mg/ml) 30 ml 1X ONCE PO ; Start 01/16/17 at 12:00; Stop 01/16/17 at 12:01; Status DC Info (Do NOT chart on this entry -- for MONITORING) 1 each PRN DAILY PRN MC SEE COMMENTS; Start 01/16/17 at 12:00; Stop 01/18/17 at 11:59; Status DC Magnesium Sulfate/ Dextrose 50 ml @ 25 mls/hr PRN DAILY PRN IV for Mag < 1.7 on am labs; Start 01/16/17 at 13:15 Metoprolol Succinate (Toprol Xl) 50 mg BID PO Last administered on 01/21/17 08 :11; Start 01/16/17 at 21:00; Stop 01/21/17 at 08:33; Status DC Sodium Chloride 1,000 ml @ 100 mls/hr Q10H IV Last administered on 01/18/17 05:45; Start 01/16/17 at 13:45; Stop 01/18/17 at 11:44; Status DC Aspirin (Charmaine Aspirin) 325 mg DAILYWBKFT PO Last administered on 01/19/17 08: 35; Start 01/17/17 at 08:00; Stop 01/19/17 at 09:49; Status DC Atorvastatin Calcium (Lipitor) 40 mg QHS PO Last administered on 01/28/17 22: 14; Start 01/16/17 at 21:00 Vitamin D (Vitamin D3) 2,000 unit DAILY PO Last administered on 01/29/17 09: 25; Start 01/17/17 at 09:00 Clonidine HCl (Catapres) 0.1 mg BID PO Last administered on 01/19/17 08:35; Start 01/16/17 at 21:00; Stop 01/19/17 at 09:52; Status DC Folic Acid (Folic Acid) 1 mg DAILY PO Last administered on 01/29/17 09:26; Start 01/17/17 at 09:00 Loperamide HCl (Imodium) 2 mg Q2H PRN PO diarrhea; Start 01/16/17 at 16:45 Metoprolol Succinate (Toprol Xl) 100 mg BID PO ; Start 01/16/17 at 21:00; Status UNV Gabapentin (Neurontin) 600 mg TID PO Last administered on 01/29/17 09:24; Start 01/16/17 at 21:00 Pantoprazole Sodium (Protonix) 40 mg DAILYAC PO Last administered on 05:59; Start 01/17/17 at 07:30 Insulin Aspart (NovoLOG) 0-9 UNITS TIDWMEALS SQ Last administered on 01/22/17 17:00; Start 01/16/17 at 17:00 Dextrose (Dextrose 50%-Water Syringe) 12.5 gm PRN Q15MIN PRN IV SEE COMMENTS; Start 01/16/17 at 16:45 Dexamethasone Sodium Phosphate (Decadron) 10 mg 1X ONCE IV Last administered on 01/16/17 17:05; Start 01/16/17 at 16:45; Stop 01/16/17 at 16:46; Status DC Dexamethasone Sodium Phosphate (Decadron) 4 mg Q6HRS IV Last administered on 05:58; Start 01/17/17 at 00:00; Stop 01/18/17 at 15:31; Status DC Morphine Sulfate 2 mg PRN Q2HR PRN IV PAIN Last administered on 01/24/17 19:52 ; Start 01/16/17 at 16:45; Stop 01/24/17 at 22:39; Status DC Oxycodone/ Acetaminophen (Percocet 10/325) 1 tab PRN Q4HRS PRN PO SEVERE PAIN Last administered on 01/28/17 22:14; Start 01/16/17 at 16:45 Heparin Sodium (Porcine) (Heparin Sq) 5,000 unit Q8HRS SQ Last administered on 01/23/17 06:00; Start 01/16/17 at 22:00; Stop 01/23/17 at 13:16; Status DC Diazepam (Valium) 5 mg PRN Q6HRS PRN IV SEIZURES; Start 01/16/17 at 18:30; Status Cancel Diazepam (Valium) 5 mg PRN Q6HRS PRN PO TREMORS Last administered on 14:04; Start 01/16/17 at 18:45 Fentanyl Citrate (Fentanyl 2ml Vial) 100 mcg STK-MED ONCE .ROUTE ; Start at 10:08; Stop 01/17/17 at 10:09; Status DC Midazolam HCl (Versed) 2 mg STK-MED ONCE .ROUTE ; Start 01/17/17 at 10:08; Stop 01/17/17 at 10:09; Status DC Lidocaine/Sodium Bicarbonate (Buffered Lidocaine 1%) 20 ml 1X ONCE IJ Last administered on 01/17/17 10:51; Start 01/17/17 at 10:15; Stop 01/17/17 at 10:16 ; Status DC Midazolam HCl (Versed) 2 mg 1X ONCE IV Last administered on 01/17/17 10:52; Start 01/17/17 at 10:15; Stop 01/17/17 at 10:16; Status DC Fentanyl Citrate (Fentanyl 2ml Vial) 100 mcg 1X ONCE IV Last administered on 01/17/17 10:52; Start 01/17/17 at 10:15; Stop 01/17/17 at 10:16; Status DC Lidocaine/Sodium Bicarbonate (Buffered Lidocaine 1%) 20 ml STK-MED ONCE IJ ; Start 01/17/17 at 10:14; Stop 01/17/17 at 10:15; Status DC Piperacillin Sod/ Tazobactam Sod (Zosyn) 3.375 gm Q6HRS IVP Last administered on 01/18/17 06:00; Start 01/17/17 at 18:00; Stop 01/18/17 at 10:42; Status DC Dexamethasone Sodium Phosphate (Decadron) 4 mg Q12HR IV Last administered on 09:27; Start 01/18/17 at 21:00 Aspirin (Ecotrin) 81 mg DAILYWBKFT PO Last administered on 01/29/17 09:29; Start 01/20/17 at 08:00 Amlodipine Besylate (Norvasc) 10 mg DAILY PO Last administered on 01/24/17 09: 35; Start 01/19/17 at 10:00; Stop 01/25/17 at 12:44; Status DC Oxycodone HCl (OxyCONTIN) 30 mg Q12HR PO Last administered on 01/29/17 09:23 ; Start 01/19/17 at 11:45 Senna/Docusate Sodium (Senna Plus) 2 tab DAILY PO Last administered on 09:28; Start 01/19/17 at 12:00 Gadobutrol (Gadavist) 10 mmol 1X ONCE IV ; Start 01/19/17 at 15:45; Stop at 15:46; Status DC Sodium Chloride 1,000 ml @ 75 mls/hr [id number] IV Last administered on 02:12; Start 01/20/17 at 11:15; Stop 01/21/17 at 18:06; Status DC Polyethylene Glycol (miraLAX PACKET) 17 gm DAILY PO Last administered on 09:28; Start 01/20/17 at 15:00 Metoprolol Succinate (Toprol Xl) 50 mg DAILY PO Last administered on 08:25; Start 01/21/17 at 09:00; Stop 01/26/17 at 09:48; Status DC Bacitracin 28856 unit/Sodium Chloride 1,000 ml @ 1,000 mls/hr 1X PERIOP ONCE IRR Last administered on 01/24/17 12:59; Start 01/24/17 at 06:00; Stop at 06:59; Status DC Ondansetron HCl (Zofran) 4 mg PRN Q6HRS PRN IV NAUSEA/VOMITING; Start 01/24/17 at 07:00; Stop 01/25/17 at 06:59; Status DC Fentanyl Citrate (Fentanyl 2ml Vial) 25 mcg PRN Q5MIN PRN IV MILD PAIN; Start 01/24/17 at 07:00; Stop 01/24/17 at 22:48; Status DC Fentanyl Citrate (Fentanyl 2ml Vial) 50 mcg PRN Q5MIN PRN IV MODERATE PAIN Last administered on 01/24/17 19:01; Start 01/24/17 at 07:00; Stop 01/24/17 at 22:48; Status DC Morphine Sulfate 1 mg PRN Q10MIN PRN IV SEVERE PAIN; Start 01/24/17 at 07:00; Stop 01/24/17 at 22:48; Status DC Ringer's Solution 1,000 ml @ 30 mls/hr Q24H IV Last administered on 01/24/17 11:40; Start 01/24/17 at 07:00; Stop 01/24/17 at 18:59; Status DC Lidocaine HCl (Xylocaine-Mpf 1% Vial) 2 ml PRN 1X PRN ID IV START; Start at 07:00; Stop 01/25/17 at 06:59; Status DC Hydromorphone HCl (Dilaudid) 0.5 mg PRN Q10MIN PRN IV SEV PAIN, Second choice; Start 01/24/17 at 07:00; Stop 01/24/17 at 22:48; Status DC Prochlorperazine Edisylate (Compazine) 5 mg PACU PRN PRN IV NAUSEA, MRX1; Start 01/24/17 at 07:00; Stop 01/24/17 at 22:48; Status DC Cefazolin Sodium/ Dextrose 50 ml @ 100 mls/hr 1X PREOP PRN IV PRE-OP Last administered on 01/24/17 12:25; Start 01/23/17 at 13:15; Stop 01/24/17 at 18:00 ; Status DC Gelatin (Gelfoam Size 100) 1 each STK-MED ONCE .ROUTE Last administered on 12:59; Start 01/24/17 at 07:30; Stop 01/24/17 at 07:31; Status DC Bupivacaine HCl/ Epinephrine Bitart (Sensorcain-Mpf Epi 0.5%-[id number]) 30 ml STK -MED ONCE .ROUTE Last administered on 01/24/17 12:59; Start 01/24/17 at 07:31 ; Stop 01/24/17 at 07:32; Status DC Ketorolac Tromethamine (Toradol For Or Only) 60 mg STK-MED ONCE .ROUTE Last administered on 01/24/17 12:59; Start 01/24/17 at 07:31; Stop 01/24/17 at 07:32 ; Status DC Thrombin 20,000 unit STK-MED ONCE TP Last administered on 01/24/17 12:59; Start 01/24/17 at 07:31; Stop 01/24/17 at 07:32; Status DC Midazolam HCl (Versed) 2 mg STK-MED ONCE .ROUTE ; Start 01/24/17 at 11:05; Stop 01/24/17 at 11:06; Status DC Fentanyl Citrate (Fentanyl 5ml Vial) 250 mcg STK-MED ONCE .ROUTE ; Start at 11:05; Stop 11/8/17 at 11:06; Status DC Rocuronium Herrick (Zemuron) 50 mg STK-MED ONCE .ROUTE ; Start 01/24/17 at 11:05 ; Stop 01/24/17 at 11:06; Status DC Remifentanil HCl (Ultiva) 2 mg STK-MED ONCE IV ; Start 01/24/17 at 11:05; Stop 01/24/17 at 11:06; Status DC Propofol 50 ml @ As Directed STK-MED ONCE IV ; Start 01/24/17 at 11:09; Stop at 11:10; Status DC Multi-Ingred Cream/Lotion/Oil/ Oint (Artificial Tears Eye Oint) 7 jose a STK-MED ONCE .ROUTE ; Start 01/24/17 at 11:09; Stop 01/24/17 at 11:10; Status DC Propofol 0 ml @ As Directed STK-MED ONCE IV ; Start 01/24/17 at 11:10; Stop 01/24/17 at 11:11; Status DC Lidocaine HCl (Lidocaine Pf 2% Vial) 5 ml STK-MED ONCE .ROUTE ; Start 01/24/17 at 11:10; Stop 01/24/17 at 11:11; Status DC Dexamethasone Sodium Phosphate (Decadron) 20 mg STK-MED ONCE .ROUTE ; Start 01/24/17 at 11:10; Stop 01/24/17 at 11:11; Status DC Ondansetron HCl (Zofran) 4 mg STK-MED ONCE .ROUTE ; Start 01/24/17 at 11:10; Stop 01/24/17 at 11:11; Status DC Desflurane (Suprane) 90 ml STK-MED ONCE IH ; Start 01/24/17 at 11:10; Stop 01/24 at 11:11; Status DC Sodium Chloride (Sodium Chloride) 50 ml STK-MED ONCE IJ ; Start 01/24/17 at 11: 11; Stop 01/24/17 at 11:12; Status DC Phenylephrine HCl 1 mg STK-MED ONCE IV ; Start 01/24/17 at 12:02; Stop 01/24/17 at 12:03; Status DC Glycopyrrolate (Robinul) 1 mg STK-MED ONCE .ROUTE ; Start 01/24/17 at 12:28; Stop 01/24/17 at 12:29; Status DC Neostigmine Methylsulfate 5 mg STK-MED ONCE .ROUTE ; Start 01/24/17 at 12:28; Stop 01/24/17 at 12:29; Status DC Ephedrine Sulfate (Akovaz) 50 mg STK-MED ONCE .ROUTE ; Start 01/24/17 at 14:05; Stop 01/24/17 at 14:06; Status DC Albumin Human 500 ml @ As Directed STK-MED ONCE IV ; Start 01/24/17 at 14:07; Stop 01/24/17 at 14:08; Status DC Remifentanil HCl (Ultiva) 2 mg STK-MED ONCE IV ; Start 01/24/17 at 14:55; Stop 01/24/17 at 14:56; Status DC Propofol 50 ml @ As Directed STK-MED ONCE IV ; Start 01/24/17 at 14:57; Stop at 14:58; Status DC Propofol 20 ml @ As Directed STK-MED ONCE IV ; Start 01/24/17 at 14:57; Stop at 14:58; Status DC Propofol 20 ml @ As Directed STK-MED ONCE IV ; Start 01/24/17 at 15:09; Stop at 15:10; Status DC Propofol 50 ml @ As Directed STK-MED ONCE IV ; Start 01/24/17 at 15:50; Stop at 15:51; Status DC Cefazolin Sodium/ Dextrose 50 ml @ As Directed STK-MED ONCE IV ; Start 01/24/17 at 16:20; Stop 01/24/17 at 16:21; Status DC Phenylephrine HCl 1 mg STK-MED ONCE IV ; Start 01/24/17 at 16:54; Stop 01/24/17 at 16:55; Status DC Propofol 50 ml @ As Directed STK-MED ONCE IV ; Start 01/24/17 at 17:10; Stop at 17:11; Status DC Remifentanil HCl (Ultiva) 2 mg STK-MED ONCE IV ; Start 01/24/17 at 17:10; Stop 01/24/17 at 17:11; Status DC Propofol 50 ml @ As Directed STK-MED ONCE IV ; Start 01/24/17 at 17:30; Stop at 17:31; Status DC Hydromorphone HCl (Dilaudid) 2 mg STK-MED ONCE .ROUTE ; Start 01/24/17 at 18:07 ; Stop 01/24/17 at 18:08; Status DC Fentanyl Citrate (Fentanyl 2ml Vial) 100 mcg STK-MED ONCE .ROUTE ; Start at 18:07; Stop 01/24/17 at 18:08; Status DC Morphine Sulfate 2 mg PRN Q2HR PRN IV SEVERE PAIN Last administered on 07:21; Start 01/24/17 at 22:45 Amlodipine Besylate (Norvasc) 5 mg DAILY PO Last administered on 01/29/17 09: 26; Start 01/26/17 at 09:00 Sodium Chloride 1,000 ml @ 75 mls/hr 1X ONCE IV Last administered on 13:25; Start 01/25/17 at 12:45; Stop 01/26/17 at 02:04; Status DC Metoprolol Succinate (Toprol Xl) 25 mg BID PO Last administered on 01/29/17 09:25; Start 01/26/17 at 21:00 Heparin Sodium (Porcine) (Heparin Sq) 5,000 unit Q8HRS SQ Last administered on 01/29/17 06:00; Start 01/27/17 at 14:00 Acetaminophen/ Hydrocodone Bitart (Lortab 10/325) 1 tab PRN Q6HRS PRN PO MODERATE PAIN Last administered on 01/29/17 12:34; Start 01/29/17 at 10:30 Active Scripts Active Reported Imodium A-D (Loperamide HCl) 2 Mg Capsule 2 Mg PO Aspirin 325 Mg Tablet 1 Tab PO DAILY Vitamin D3 (Cholecalciferol (Vitamin D3)) 1,000 Unit Tablet 2,000 Unit PO Vicodin Es 7.5-300 Mg Tablet (Hydrocodone Bit/Acetaminophen) 1 Each Tablet 1 Each PO Q6H PRN Humira (Adalimumab) 40 Mg/0.8 Ml Pen.ij.kit 1 Syr SQ Q2WKS Folbic Rf Tablet (B12/Levomefolate Calcium/B-6) 1 Each Tablet 1 Each PO Omeprazole 40 Mg Capsule.dr 1 Cap PO DAILY Cholestyramine Packet (Cholestyramine (With Sugar)) 4 Gm Powd.pack 4 Gm PO Gabapentin 600 Mg Tablet 600 Mg PO TID Folic Acid 1 Mg Tablet 1 Tab PO DAILY Clonidine Hcl 0.1 Mg Tablet 0.1 Mg PO BID Metformin Hcl 1,000 Mg Tablet 1,000 Mg PO BIDWMEALS Atorvastatin Calcium 40 Mg Tablet 1 Tab PO DAILY Metoprolol Succinate ( Xl ) (Metoprolol Succinate) 100 Mg Tab.er.24h 100 Mg PO BID Vitals/I & O Vital Sign - Last 24 Hours 01/28/17 01/28/17 01/28/17 01/28/17 15:00 15:16 19:00 20:00 Temp 98.0 96.6 98.0 96.6 Pulse 71 54 Resp 18 20 16 B/P (MAP) 126/64 (84) 121/68 (85) Pulse Ox 96 99 O2 Delivery Room Air Room Air Room Air Nasal Cannula O2 Flow Rate 2.0 01/28/17 01/28/17 01/28/17 01/28/17 22:14 22:14 22:15 23:00 Temp 97.5 97.5 Pulse 54 72 Resp 20 20 13 B/P (MAP) 121/68 115/85 (95) Pulse Ox 99 99 94 O2 Delivery Nasal Cannula Nasal Cannula BiPAP/CPAP O2 Flow Rate 2.0 2.0 01/28/17 01/29/17 01/29/17 01/29/17 23:14 02:15 03:00 07:00 Temp 97.5 98.4 97.5 98.4 Pulse 53 61 Resp 20 20 16 18 B/P (MAP) 127/58 (81) 128/63 (84) Pulse Ox 96 96 96 100 O2 Delivery BiPAP/CPAP BiPAP/CPAP Room Air Room Air 01/29/17 01/29/17 01/29/17 01/29/17 09:23 09:25 09:26 12:34 Pulse 61 61 Resp 12 12 B/P (MAP) 128/63 128/63 Pulse Ox 93 95 O2 Delivery Room Air Room Air Intake and Output 01/28/17 01/28/17 01/29/17 15:00 23:00 07:00 Intake Total 850 ml Output Total 1300 ml Balance 850 ml -1300 ml PINEDA FIELDS MD Jan 29, 2017 12:38
--- NOTE | 2017-01-29 13:58 | PDOC ---
PROGRESS NOTES Chief Complaint Chief Complaint L3 spinal mass: highly suspicious for malignancy or L3 Chance fracture?. s/p l1-4 fusion laminnectomy L4 for fx, bx L3, remove L4 hematoma 01/24, path pending Back pain Syncope left renal small cyst ANDREINA on CKD, vasomotor DM2 Anemia Dyspnea PAF CAD: hx mult stents Crohn's Alcoholism Azotemia h/o crhons dz plan: fu with onco, dr. Bud dumont pending add decadron qid for now pain control with both oxycontin and oxycodone SW for rehab pending cont stool softner History of Present Illness History of Present Illness Pt seen at bedside on the medical floor. He is AOCx3. He had an L1-L5 vertebral fusion and hematoma evacuation. Initial worry for malignant lesion of vertebra appears to be negative based on intraoperative findings. Pt has no c /o ongoing pain during our conversation. Pt is being followed by Nepho re: renal insufficiency, ID re: positive lactic acid, Cardio re: CHF, Heme and Onc re: spinal cancer, Radiation Onc re: Spinal cancer, Neurosurg re: L3 malignant lesion. Pt has anemia, will continue to monitor Hgb lever- heme onc following. LTAC evaluation in progress. Continue wound care. Possible discharge tomorrow. Will continue to monitor. ROS: no fever, chills, sob or chest pain cont having severe lower back pain, post op 01/24, path still pending, i called path back brace helps no constipation with stool softner on both oxycontin and oxycodone Vitals Vitals Vital Signs Date Time Temp Pulse Resp B/P (MAP) Pulse Ox O2 Delivery O2 Flow Rate FiO2 01/29/17 12:34 12 95 Room Air 01/29/17 11:00 98.5 58 123/51 (75) 98.5 01/28/17 22:15 2.0 Physical Exam General: Alert, Oriented X3 Heart: Normal S1, Normal S2 Lungs: Clear Abdomen: Normal bowel sounds, Soft, No tenderness Extremities: No clubbing, No edema Skin: No rashes, No breakdown, Other (Dressing changed, ricky intact, drain d /c'd) Labs LABS Laboratory Tests Test 01/28/17 17:01 01/28/17 21:10 01/29/17 03:52 01/29/17 07:39 Glucose (Fingerstick) 121 mg/dL (70-99) 142 mg/dL (70-99) 117 mg/dL (70-99) White Blood Count 12.5 x10^3/uL (4.0-11.0) Red Blood Count 2.47 x10^6/uL (4.30-5.70) Hemoglobin 7.7 g/dL (13.0-17.5) Hematocrit 23.7 % (39.0-53.0) Mean Corpuscular Volume 96 fL (79-100) Mean Corpuscular Hemoglobin 31 pg (25-35) Mean Corpuscular Hemoglobin Concent 33 g/dL (31-37) Red Cell Distribution Width 17.3 % (11.5-14.5) Platelet Count 182 x10^3/uL (140-400) Neutrophils (%) (Auto) 89 % (31-73) Lymphocytes (%) (Auto) 5 % (24-48) Monocytes (%) (Auto) 6 % (0-9) Eosinophils (%) (Auto) 0 % (0-3) Basophils (%) (Auto) 0 % (0-3) Neutrophils # (Auto) 11.1 x10^3uL (1.8-7.7) Lymphocytes # (Auto) 0.6 x10^3/uL (1.0-4.8) Monocytes # (Auto) 0.8 x10^3/uL (0.0-1.1) Eosinophils # (Auto) 0.0 x10^3/uL (0.0-0.7) Basophils # (Auto) 0.0 x10^3/uL (0.0-0.2) Sodium Level 137 mmol/L (136-145) Potassium Level 4.6 mmol/L (3.5-5.1) Chloride Level 103 mmol/L (98-107) Carbon Dioxide Level 30 mmol/L (21-32) Anion Gap 4 (6-14) Blood Urea Nitrogen 38 mg/dL (8-26) Creatinine 1.3 mg/dL (0.7-1.3) Estimated GFR (Cockcroft-Gault) 54.4 Glucose Level 129 mg/dL (70-99) Calcium Level 8.4 mg/dL (8.5-10.1) Test 01/29/17 12:25 Glucose (Fingerstick) 111 mg/dL (70-99) Assessment and Plan Assessmemt and Plan Problems Medical Problems: (1) Elevated d-dimer Status: Acute (2) Elevated serum creatinine Status: Acute (3) Hypoxia Status: Acute (4) Lactic acidosis Status: Acute (5) 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 Labs Laboratory Tests Test 01/27/17 16:40 01/27/17 20:36 01/28/17 04:20 01/28/17 08:17 Glucose (Fingerstick) 154 mg/dL (70-99) 133 mg/dL (70-99) 120 mg/dL (70-99) White Blood Count 10.6 x10^3/uL (4.0-11.0) Red Blood Count 2.35 x10^6/uL (4.30-5.70) Hemoglobin 7.5 g/dL (13.0-17.5) Hematocrit 22.5 % (39.0-53.0) Mean Corpuscular Volume 96 fL (79-100) Mean Corpuscular Hemoglobin 32 pg (25-35) Mean Corpuscular Hemoglobin Concent 33 g/dL (31-37) Red Cell Distribution Width 17.0 % (11.5-14.5) Platelet Count 147 x10^3/uL (140-400) Neutrophils (%) (Auto) 87 % (31-73) Lymphocytes (%) (Auto) 6 % (24-48) Monocytes (%) (Auto) 7 % (0-9) Eosinophils (%) (Auto) 0 % (0-3) Basophils (%) (Auto) 0 % (0-3) Neutrophils # (Auto) 9.3 x10^3uL (1.8-7.7) Lymphocytes # (Auto) 0.6 x10^3/uL (1.0-4.8) Monocytes # (Auto) 0.7 x10^3/uL (0.0-1.1) Eosinophils # (Auto) 0.0 x10^3/uL (0.0-0.7) Basophils # (Auto) 0.0 x10^3/uL (0.0-0.2) Segmented Neutrophils % 93 % (35-66) Band Neutrophils % 1 % (0-9) Lymphocytes % 3 % (24-48) Monocytes % 3 % (0-10) Platelet Estimate Adequate (ADEQUATE) Polychromasia Present Anisocytosis Present Sodium Level 136 mmol/L (136-145) Potassium Level 4.9 mmol/L (3.5-5.1) Chloride Level 102 mmol/L (98-107) Carbon Dioxide Level 30 mmol/L (21-32) Anion Gap 4 (6-14) Blood Urea Nitrogen 39 mg/dL (8-26) Creatinine 1.3 mg/dL (0.7-1.3) Estimated GFR (Cockcroft-Gault) 54.4 Glucose Level 135 mg/dL (70-99) Calcium Level 8.2 mg/dL (8.5-10.1) Test 01/28/17 12:32 01/28/17 17:01 01/28/17 21:10 01/29/17 03:52 Glucose (Fingerstick) 131 mg/dL (70-99) 121 mg/dL (70-99) 142 mg/dL (70-99) White Blood Count 12.5 x10^3/uL (4.0-11.0) Red Blood Count 2.47 x10^6/uL (4.30-5.70) Hemoglobin 7.7 g/dL (13.0-17.5) Hematocrit 23.7 % (39.0-53.0) Mean Corpuscular Volume 96 fL (79-100) Mean Corpuscular Hemoglobin 31 pg (25-35) Mean Corpuscular Hemoglobin Concent 33 g/dL (31-37) Red Cell Distribution Width 17.3 % (11.5-14.5) Platelet Count 182 x10^3/uL (140-400) Neutrophils (%) (Auto) 89 % (31-73) Lymphocytes (%) (Auto) 5 % (24-48) Monocytes (%) (Auto) 6 % (0-9) Eosinophils (%) (Auto) 0 % (0-3) Basophils (%) (Auto) 0 % (0-3) Neutrophils # (Auto) 11.1 x10^3uL (1.8-7.7) Lymphocytes # (Auto) 0.6 x10^3/uL (1.0-4.8) Monocytes # (Auto) 0.8 x10^3/uL (0.0-1.1) Eosinophils # (Auto) 0.0 x10^3/uL (0.0-0.7) Basophils # (Auto) 0.0 x10^3/uL (0.0-0.2) Sodium Level 137 mmol/L (136-145) Potassium Level 4.6 mmol/L (3.5-5.1) Chloride Level 103 mmol/L (98-107) Carbon Dioxide Level 30 mmol/L (21-32) Anion Gap 4 (6-14) Blood Urea Nitrogen 38 mg/dL (8-26) Creatinine 1.3 mg/dL (0.7-1.3) Estimated GFR (Cockcroft-Gault) 54.4 Glucose Level 129 mg/dL (70-99) Calcium Level 8.4 mg/dL (8.5-10.1) Test 01/29/17 07:39 01/29/17 12:25 Glucose (Fingerstick) 117 mg/dL (70-99) 111 mg/dL (70-99) Laboratory Tests Test 01/28/17 17:01 01/28/17 21:10 01/29/17 03:52 01/29/17 07:39 Glucose (Fingerstick) 121 mg/dL (70-99) 142 mg/dL (70-99) 117 mg/dL (70-99) White Blood Count 12.5 x10^3/uL (4.0-11.0) Red Blood Count 2.47 x10^6/uL (4.30-5.70) Hemoglobin 7.7 g/dL (13.0-17.5) Hematocrit 23.7 % (39.0-53.0) Mean Corpuscular Volume 96 fL (79-100) Mean Corpuscular Hemoglobin 31 pg (25-35) Mean Corpuscular Hemoglobin Concent 33 g/dL (31-37) Red Cell Distribution Width 17.3 % (11.5-14.5) Platelet Count 182 x10^3/uL (140-400) Neutrophils (%) (Auto) 89 % (31-73) Lymphocytes (%) (Auto) 5 % (24-48) Monocytes (%) (Auto) 6 % (0-9) Eosinophils (%) (Auto) 0 % (0-3) Basophils (%) (Auto) 0 % (0-3) Neutrophils # (Auto) 11.1 x10^3uL (1.8-7.7) Lymphocytes # (Auto) 0.6 x10^3/uL (1.0-4.8) Monocytes # (Auto) 0.8 x10^3/uL (0.0-1.1) Eosinophils # (Auto) 0.0 x10^3/uL (0.0-0.7) Basophils # (Auto) 0.0 x10^3/uL (0.0-0.2) Sodium Level 137 mmol/L (136-145) Potassium Level 4.6 mmol/L (3.5-5.1) Chloride Level 103 mmol/L (98-107) Carbon Dioxide Level 30 mmol/L (21-32) Anion Gap 4 (6-14) Blood Urea Nitrogen 38 mg/dL (8-26) Creatinine 1.3 mg/dL (0.7-1.3) Estimated GFR (Cockcroft-Gault) 54.4 Glucose Level 129 mg/dL (70-99) Calcium Level 8.4 mg/dL (8.5-10.1) Test 01/29/17 12:25 Glucose (Fingerstick) 111 mg/dL (70-99) Microbiology 01/15/17 Blood Culture - Final, Complete NO GROWTH AFTER 5 DAYS Medications Current Medications Fentanyl Citrate (Fentanyl 2ml Vial) 50 mcg 1X ONCE IV Last administered on 21:52; Start 01/15/17 at 22:00; Stop 01/15/17 at 22:01; Status DC Sodium Chloride 1,000 ml @ 150 mls/hr 1X ONCE IV Last administered on 22:31; Start 01/15/17 at 22:00; Stop 01/16/17 at 04:39; Status DC Piperacillin Sod/ Tazobactam Sod 3.375 gm/Dextrose 50 ml @ 100 mls/hr 1X ONCE IV Last administered on 01/15/17 23:22; Start 01/15/17 at 23:30; Stop 01/15 at 23:59; Status DC Heparin Sodium (Porcine) (Heparin Sodium) 9,450 unit 1X ONCE IV Last administered on 01/15/17 23:30; Start 01/15/17 at 23:30; Stop 01/16/17 at 16 :41; Status DC Heparin Sodium/ Dextrose 500 ml @ 0 mls/hr CONT PRN IV SEE I/O RECORD Last administered on 01/16/17 16:26; Start 01/15/17 at 23:15; Stop 01/16/17 at 16 :41; Status DC Heparin Sodium (Porcine) (Heparin Sodium) 3,550 unit PRN Q6HRS PRN IV FOR UFH LEVEL LESS THAN 0.2; Start 01/15/17 at 23:15; Stop 01/16/17 at 16:41; Status DC Heparin Sodium (Porcine) (Heparin Sodium) 1,750 unit PRN Q6HRS PRN IV FOR UFH LEVEL 0.2 - 0.29; Start 01/15/17 at 23:15; Stop 01/16/17 at 16:41; Status DC Warfarin Sodium (Coumadin Per Pharmacy) 1 each PRN DAILY PRN MC PER PROTOCOL Last administered on 01/16/17 10:20; Start 01/15/17 at 23:15; Stop 01/16/17 at 16:39; Status DC Info (Anti-Coagulation Monitoring By Pharmacy) 1 each PRN DAILY PRN MC SEE COMMENTS Last administered on 01/16/17 10:17; Start 01/15/17 at 23:30; Stop 01/18/17 at 14:31; Status DC Ondansetron HCl (Zofran) 4 mg PRN Q8HRS PRN IV NAUSEA/VOMITING; Start at 23:15; Stop 01/16/17 at 23:14; Status DC Fentanyl Citrate (Fentanyl 2ml Vial) 50 mcg PRN Q2HR PRN IV SEVERE PAIN Last administered on 01/16/17 01:33; Start 01/15/17 at 23:15; Stop 01/16/17 at 02 :47; Status DC Piperacillin Sod/ Tazobactam Sod (Zosyn Per Pharmacy) 1 each PRN DAILY PRN MC SEE COMMENTS; Start 01/15/17 at 23:15; Stop 01/16/17 at 02:54; Status DC Sodium Chloride 1,000 ml @ 150 mls/hr 1X ONCE IV Last administered on 01:34; Start 01/15/17 at 23:45; Stop 01/16/17 at 06:24; Status DC Albuterol Sulfate (Ventolin Neb Soln) 2.5 mg PRN Q3HRS PRN NEB WHEEZING Last administered on 01/16/17 11:24; Start 01/15/17 at 23:30 Morphine Sulfate 2 mg 1X ONCE IV Last administered on 01/15/17 23:47; Start 01/16/17 at 00:00; Stop 01/16/17 at 00:01; Status DC Fentanyl Citrate (Fentanyl 2ml Vial) 75 mcg PRN Q2HR PRN IV SEVERE PAIN Last administered on 01/16/17 13:56; Start 01/16/17 at 02:45; Stop 01/16/17 at 16 :41; Status DC Piperacillin Sod/ Tazobactam Sod (Zosyn Per Pharmacy) 1 each PRN DAILY PRN MC SEE COMMENTS; Start 01/16/17 at 02:45; Stop 01/17/17 at 16:01; Status DC Piperacillin Sod/ Tazobactam Sod (Zosyn) 2.25 gm Q6HRS IVP Last administered on 01/17/17 12:01; Start 01/16/17 at 06:00; Stop 01/17/17 at 16:01; Status DC Info (Anti-Coagulation Monitoring By Pharmacy) 1 each PRN DAILY PRN MC SEE COMMENTS; Start 01/16/17 at 09:45; Status Cancel Warfarin Sodium (Coumadin) 5 mg 1X WARF ONCE PO ; Start 01/16/17 at 16:00; Stop 01/16/17 at 16:39; Status DC Lactobacillus Rhamnosus (Culturelle) 1 cap BID PO Last administered on 09:24; Start 01/16/17 at 21:00 Magnesium Sulfate/ Dextrose 50 ml @ 25 mls/hr 1X ONCE IV Last administered on 01/16/17 12:45; Start 01/16/17 at 11:30; Stop 01/16/17 at 13:29; Status DC Linezolid 300 ml @ 300 mls/hr Q12HR IV Last administered on 01/16/17 20:58; Start 01/16/17 at 12:00; Stop 01/17/17 at 08:14; Status DC Iohexol (Omnipaque 240 Mg/ml) 30 ml 1X ONCE PO ; Start 01/16/17 at 12:00; Stop 01/16/17 at 12:01; Status DC Info (Do NOT chart on this entry -- for MONITORING) 1 each PRN DAILY PRN MC SEE COMMENTS; Start 01/16/17 at 12:00; Stop 01/18/17 at 11:59; Status DC Magnesium Sulfate/ Dextrose 50 ml @ 25 mls/hr PRN DAILY PRN IV for Mag < 1.7 on am labs; Start 01/16/17 at 13:15 Metoprolol Succinate (Toprol Xl) 50 mg BID PO Last administered on 01/21/17 08 :11; Start 01/16/17 at 21:00; Stop 01/21/17 at 08:33; Status DC Sodium Chloride 1,000 ml @ 100 mls/hr Q10H IV Last administered on 01/18/17 05:45; Start 01/16/17 at 13:45; Stop 01/18/17 at 11:44; Status DC Aspirin (Charmaine Aspirin) 325 mg DAILYWBKFT PO Last administered on 01/19/17 08: 35; Start 01/17/17 at 08:00; Stop 01/19/17 at 09:49; Status DC Atorvastatin Calcium (Lipitor) 40 mg QHS PO Last administered on 01/28/17 22: 14; Start 01/16/17 at 21:00 Vitamin D (Vitamin D3) 2,000 unit DAILY PO Last administered on 01/29/17 09: 25; Start 01/17/17 at 09:00 Clonidine HCl (Catapres) 0.1 mg BID PO Last administered on 01/19/17 08:35; Start 01/16/17 at 21:00; Stop 01/19/17 at 09:52; Status DC Folic Acid (Folic Acid) 1 mg DAILY PO Last administered on 01/29/17 09:26; Start 01/17/17 at 09:00 Loperamide HCl (Imodium) 2 mg Q2H PRN PO diarrhea; Start 01/16/17 at 16:45 Metoprolol Succinate (Toprol Xl) 100 mg BID PO ; Start 01/16/17 at 21:00; Status UNV Gabapentin (Neurontin) 600 mg TID PO Last administered on 01/29/17 09:24; Start 01/16/17 at 21:00 Pantoprazole Sodium (Protonix) 40 mg DAILYAC PO Last administered on 05:59; Start 01/17/17 at 07:30 Insulin Aspart (NovoLOG) 0-9 UNITS TIDWMEALS SQ Last administered on 01/22/17 17:00; Start 01/16/17 at 17:00 Dextrose (Dextrose 50%-Water Syringe) 12.5 gm PRN Q15MIN PRN IV SEE COMMENTS; Start 01/16/17 at 16:45 Dexamethasone Sodium Phosphate (Decadron) 10 mg 1X ONCE IV Last administered on 01/16/17 17:05; Start 01/16/17 at 16:45; Stop 01/16/17 at 16:46; Status DC Dexamethasone Sodium Phosphate (Decadron) 4 mg Q6HRS IV Last administered on 05:58; Start 01/17/17 at 00:00; Stop 01/18/17 at 15:31; Status DC Morphine Sulfate 2 mg PRN Q2HR PRN IV PAIN Last administered on 01/24/17 19:52 ; Start 01/16/17 at 16:45; Stop 01/24/17 at 22:39; Status DC Oxycodone/ Acetaminophen (Percocet 10/325) 1 tab PRN Q4HRS PRN PO SEVERE PAIN Last administered on 01/28/17 22:14; Start 01/16/17 at 16:45 Heparin Sodium (Porcine) (Heparin Sq) 5,000 unit Q8HRS SQ Last administered on 01/23/17 06:00; Start 01/16/17 at 22:00; Stop 01/23/17 at 13:16; Status DC Diazepam (Valium) 5 mg PRN Q6HRS PRN IV SEIZURES; Start 01/16/17 at 18:30; Status Cancel Diazepam (Valium) 5 mg PRN Q6HRS PRN PO TREMORS Last administered on 14:04; Start 01/16/17 at 18:45 Fentanyl Citrate (Fentanyl 2ml Vial) 100 mcg STK-MED ONCE .ROUTE ; Start at 10:08; Stop 01/17/17 at 10:09; Status DC Midazolam HCl (Versed) 2 mg STK-MED ONCE .ROUTE ; Start 01/17/17 at 10:08; Stop 01/17/17 at 10:09; Status DC Lidocaine/Sodium Bicarbonate (Buffered Lidocaine 1%) 20 ml 1X ONCE IJ Last administered on 01/17/17 10:51; Start 01/17/17 at 10:15; Stop 01/17/17 at 10:16 ; Status DC Midazolam HCl (Versed) 2 mg 1X ONCE IV Last administered on 01/17/17 10:52; Start 01/17/17 at 10:15; Stop 01/17/17 at 10:16; Status DC Fentanyl Citrate (Fentanyl 2ml Vial) 100 mcg 1X ONCE IV Last administered on 01/17/17 10:52; Start 01/17/17 at 10:15; Stop 01/17/17 at 10:16; Status DC Lidocaine/Sodium Bicarbonate (Buffered Lidocaine 1%) 20 ml STK-MED ONCE IJ ; Start 01/17/17 at 10:14; Stop 01/17/17 at 10:15; Status DC Piperacillin Sod/ Tazobactam Sod (Zosyn) 3.375 gm Q6HRS IVP Last administered on 01/18/17 06:00; Start 01/17/17 at 18:00; Stop 01/18/17 at 10:42; Status DC Dexamethasone Sodium Phosphate (Decadron) 4 mg Q12HR IV Last administered on 09:27; Start 01/18/17 at 21:00 Aspirin (Ecotrin) 81 mg DAILYWBKFT PO Last administered on 01/29/17 09:29; Start 01/20/17 at 08:00 Amlodipine Besylate (Norvasc) 10 mg DAILY PO Last administered on 01/24/17 09: 35; Start 01/19/17 at 10:00; Stop 01/25/17 at 12:44; Status DC Oxycodone HCl (OxyCONTIN) 30 mg Q12HR PO Last administered on 01/29/17 09:23 ; Start 01/19/17 at 11:45 Senna/Docusate Sodium (Senna Plus) 2 tab DAILY PO Last administered on 09:28; Start 01/19/17 at 12:00 Gadobutrol (Gadavist) 10 mmol 1X ONCE IV ; Start 01/19/17 at 15:45; Stop at 15:46; Status DC Sodium Chloride 1,000 ml @ 75 mls/hr [id number] IV Last administered on 02:12; Start 01/20/17 at 11:15; Stop 01/21/17 at 18:06; Status DC Polyethylene Glycol (miraLAX PACKET) 17 gm DAILY PO Last administered on 09:28; Start 01/20/17 at 15:00 Metoprolol Succinate (Toprol Xl) 50 mg DAILY PO Last administered on 08:25; Start 01/21/17 at 09:00; Stop 01/26/17 at 09:48; Status DC Bacitracin 08109 unit/Sodium Chloride 1,000 ml @ 1,000 mls/hr 1X PERIOP ONCE IRR Last administered on 01/24/17 12:59; Start 01/24/17 at 06:00; Stop at 06:59; Status DC Ondansetron HCl (Zofran) 4 mg PRN Q6HRS PRN IV NAUSEA/VOMITING; Start 01/24/17 at 07:00; Stop 01/25/17 at 06:59; Status DC Fentanyl Citrate (Fentanyl 2ml Vial) 25 mcg PRN Q5MIN PRN IV MILD PAIN; Start 01/24/17 at 07:00; Stop 01/24/17 at 22:48; Status DC Fentanyl Citrate (Fentanyl 2ml Vial) 50 mcg PRN Q5MIN PRN IV MODERATE PAIN Last administered on 01/24/17 19:01; Start 01/24/17 at 07:00; Stop 01/24/17 at 22:48; Status DC Morphine Sulfate 1 mg PRN Q10MIN PRN IV SEVERE PAIN; Start 01/24/17 at 07:00; Stop 01/24/17 at 22:48; Status DC Ringer's Solution 1,000 ml @ 30 mls/hr Q24H IV Last administered on 01/24/17 11:40; Start 01/24/17 at 07:00; Stop 01/24/17 at 18:59; Status DC Lidocaine HCl (Xylocaine-Mpf 1% Vial) 2 ml PRN 1X PRN ID IV START; Start at 07:00; Stop 01/25/17 at 06:59; Status DC Hydromorphone HCl (Dilaudid) 0.5 mg PRN Q10MIN PRN IV SEV PAIN, Second choice; Start 01/24/17 at 07:00; Stop 01/24/17 at 22:48; Status DC Prochlorperazine Edisylate (Compazine) 5 mg PACU PRN PRN IV NAUSEA, MRX1; Start 01/24/17 at 07:00; Stop 01/24/17 at 22:48; Status DC Cefazolin Sodium/ Dextrose 50 ml @ 100 mls/hr 1X PREOP PRN IV PRE-OP Last administered on 01/24/17 12:25; Start 01/23/17 at 13:15; Stop 01/24/17 at 18:00 ; Status DC Gelatin (Gelfoam Size 100) 1 each STK-MED ONCE .ROUTE Last administered on 12:59; Start 01/24/17 at 07:30; Stop 01/24/17 at 07:31; Status DC Bupivacaine HCl/ Epinephrine Bitart (Sensorcain-Mpf Epi 0.5%-[id number]) 30 ml STK -MED ONCE .ROUTE Last administered on 01/24/17 12:59; Start 01/24/17 at 07:31 ; Stop 01/24/17 at 07:32; Status DC Ketorolac Tromethamine (Toradol For Or Only) 60 mg STK-MED ONCE .ROUTE Last administered on 01/24/17 12:59; Start 01/24/17 at 07:31; Stop 01/24/17 at 07:32 ; Status DC Thrombin 20,000 unit STK-MED ONCE TP Last administered on 01/24/17 12:59; Start 01/24/17 at 07:31; Stop 01/24/17 at 07:32; Status DC Midazolam HCl (Versed) 2 mg STK-MED ONCE .ROUTE ; Start 01/24/17 at 11:05; Stop 01/24/17 at 11:06; Status DC Fentanyl Citrate (Fentanyl 5ml Vial) 250 mcg STK-MED ONCE .ROUTE ; Start at 11:05; Stop 11/8/17 at 11:06; Status DC Rocuronium [place] (Zemuron) 50 mg STK-MED ONCE .ROUTE ; Start 01/24/17 at 11:05 ; Stop 01/24/17 at 11:06; Status DC Remifentanil HCl (Ultiva) 2 mg STK-MED ONCE IV ; Start 01/24/17 at 11:05; Stop 01/24/17 at 11:06; Status DC Propofol 50 ml @ As Directed STK-MED ONCE IV ; Start 01/24/17 at 11:09; Stop at 11:10; Status DC Multi-Ingred Cream/Lotion/Oil/ Oint (Artificial Tears Eye Oint) 7 jose a STK-MED ONCE .ROUTE ; Start 01/24/17 at 11:09; Stop 01/24/17 at 11:10; Status DC Propofol 0 ml @ As Directed STK-MED ONCE IV ; Start 01/24/17 at 11:10; Stop 01/24/17 at 11:11; Status DC Lidocaine HCl (Lidocaine Pf 2% Vial) 5 ml STK-MED ONCE .ROUTE ; Start 01/24/17 at 11:10; Stop 01/24/17 at 11:11; Status DC Dexamethasone Sodium Phosphate (Decadron) 20 mg STK-MED ONCE .ROUTE ; Start 01/24/17 at 11:10; Stop 01/24/17 at 11:11; Status DC Ondansetron HCl (Zofran) 4 mg STK-MED ONCE .ROUTE ; Start 01/24/17 at 11:10; Stop 01/24/17 at 11:11; Status DC Desflurane (Suprane) 90 ml STK-MED ONCE IH ; Start 01/24/17 at 11:10; Stop 01/24 at 11:11; Status DC Sodium Chloride (Sodium Chloride) 50 ml STK-MED ONCE IJ ; Start 01/24/17 at 11: 11; Stop 01/24/17 at 11:12; Status DC Phenylephrine HCl 1 mg STK-MED ONCE IV ; Start 01/24/17 at 12:02; Stop 01/24/17 at 12:03; Status DC Glycopyrrolate (Robinul) 1 mg STK-MED ONCE .ROUTE ; Start 01/24/17 at 12:28; Stop 01/24/17 at 12:29; Status DC Neostigmine Methylsulfate 5 mg STK-MED ONCE .ROUTE ; Start 01/24/17 at 12:28; Stop 01/24/17 at 12:29; Status DC Ephedrine Sulfate (Akovaz) 50 mg STK-MED ONCE .ROUTE ; Start 01/24/17 at 14:05; Stop 01/24/17 at 14:06; Status DC Albumin Human 500 ml @ As Directed STK-MED ONCE IV ; Start 01/24/17 at 14:07; Stop 01/24/17 at 14:08; Status DC Remifentanil HCl (Ultiva) 2 mg STK-MED ONCE IV ; Start 01/24/17 at 14:55; Stop 01/24/17 at 14:56; Status DC Propofol 50 ml @ As Directed STK-MED ONCE IV ; Start 01/24/17 at 14:57; Stop at 14:58; Status DC Propofol 20 ml @ As Directed STK-MED ONCE IV ; Start 01/24/17 at 14:57; Stop at 14:58; Status DC Propofol 20 ml @ As Directed STK-MED ONCE IV ; Start 01/24/17 at 15:09; Stop at 15:10; Status DC Propofol 50 ml @ As Directed STK-MED ONCE IV ; Start 01/24/17 at 15:50; Stop at 15:51; Status DC Cefazolin Sodium/ Dextrose 50 ml @ As Directed STK-MED ONCE IV ; Start 01/24/17 at 16:20; Stop 01/24/17 at 16:21; Status DC Phenylephrine HCl 1 mg STK-MED ONCE IV ; Start 01/24/17 at 16:54; Stop 01/24/17 at 16:55; Status DC Propofol 50 ml @ As Directed STK-MED ONCE IV ; Start 01/24/17 at 17:10; Stop at 17:11; Status DC Remifentanil HCl (Ultiva) 2 mg STK-MED ONCE IV ; Start 01/24/17 at 17:10; Stop 01/24/17 at 17:11; Status DC Propofol 50 ml @ As Directed STK-MED ONCE IV ; Start 01/24/17 at 17:30; Stop at 17:31; Status DC Hydromorphone HCl (Dilaudid) 2 mg STK-MED ONCE .ROUTE ; Start 01/24/17 at 18:07 ; Stop 01/24/17 at 18:08; Status DC Fentanyl Citrate (Fentanyl 2ml Vial) 100 mcg STK-MED ONCE .ROUTE ; Start at 18:07; Stop 01/24/17 at 18:08; Status DC Morphine Sulfate 2 mg PRN Q2HR PRN IV SEVERE PAIN Last administered on 07:21; Start 01/24/17 at 22:45 Amlodipine Besylate (Norvasc) 5 mg DAILY PO Last administered on 01/29/17 09: 26; Start 01/26/17 at 09:00 Sodium Chloride 1,000 ml @ 75 mls/hr 1X ONCE IV Last administered on 13:25; Start 01/25/17 at 12:45; Stop 01/26/17 at 02:04; Status DC Metoprolol Succinate (Toprol Xl) 25 mg BID PO Last administered on 01/29/17 09:25; Start 01/26/17 at 21:00 Heparin Sodium (Porcine) (Heparin Sq) 5,000 unit Q8HRS SQ Last administered on 01/29/17 06:00; Start 01/27/17 at 14:00 Acetaminophen/ Hydrocodone Bitart (Lortab 10/325) 1 tab PRN Q6HRS PRN PO MODERATE PAIN Last administered on 01/29/17 12:34; Start 01/29/17 at 10:30 Active Scripts Active Reported Imodium A-D (Loperamide HCl) 2 Mg Capsule 2 Mg PO Aspirin 325 Mg Tablet 1 Tab PO DAILY Vitamin D3 (Cholecalciferol (Vitamin D3)) 1,000 Unit Tablet 2,000 Unit PO Vicodin Es 7.5-300 Mg Tablet (Hydrocodone Bit/Acetaminophen) 1 Each Tablet 1 Each PO Q6H PRN Humira (Adalimumab) 40 Mg/0.8 Ml Pen.ij.kit 1 Syr SQ Q2WKS Folbic Rf Tablet (B12/Levomefolate Calcium/B-6) 1 Each Tablet 1 Each PO Omeprazole 40 Mg Capsule.dr 1 Cap PO DAILY Cholestyramine Packet (Cholestyramine (With Sugar)) 4 Gm Powd.pack 4 Gm PO Gabapentin 600 Mg Tablet 600 Mg PO TID Folic Acid 1 Mg Tablet 1 Tab PO DAILY Clonidine Hcl 0.1 Mg Tablet 0.1 Mg PO BID Metformin Hcl 1,000 Mg Tablet 1,000 Mg PO BIDWMEALS Atorvastatin Calcium 40 Mg Tablet 1 Tab PO DAILY Metoprolol Succinate ( Xl ) (Metoprolol Succinate) 100 Mg Tab.er.24h 100 Mg PO BID Vitals/I & O Vital Sign - Last 24 Hours 01/28/17 01/28/17 01/28/17 01/28/17 15:00 15:16 19:00 20:00 Temp 98.0 96.6 98.0 96.6 Pulse 71 54 Resp 18 20 16 B/P (MAP) 126/64 (84) 121/68 (85) Pulse Ox 96 99 O2 Delivery Room Air Room Air Room Air Nasal Cannula O2 Flow Rate 2.0 01/28/17 01/28/17 01/28/17 01/28/17 22:14 22:14 22:15 23:00 Temp 97.5 97.5 Pulse 54 72 Resp 20 20 13 B/P (MAP) 121/68 115/85 (95) Pulse Ox 99 99 94 O2 Delivery Nasal Cannula Nasal Cannula BiPAP/CPAP O2 Flow Rate 2.0 2.0 01/28/17 01/29/17 01/29/17 01/29/17 23:14 02:15 03:00 07:00 Temp 97.5 98.4 97.5 98.4 Pulse 53 61 Resp 20 20 16 18 B/P (MAP) 127/58 (81) 128/63 (84) Pulse Ox 96 96 96 100 O2 Delivery BiPAP/CPAP BiPAP/CPAP Room Air Room Air 01/29/17 01/29/17 01/29/17 01/29/17 08:02 09:23 09:25 09:26 Pulse 61 61 Resp 12 B/P (MAP) 128/63 128/63 Pulse Ox 93 O2 Delivery Nasal Cannula Room Air 01/29/17 01/29/17 11:00 12:34 Temp 98.5 98.5 Pulse 58 Resp 18 12 B/P (MAP) 123/51 (75) Pulse Ox 99 95 O2 Delivery Room Air Room Air Intake and Output 01/28/17 01/28/17 01/29/17 15:00 23:00 07:00 Intake Total 850 ml Output Total 1300 ml Balance 850 ml -1300 ml THIAGO CALDWELL MD Jan 29, 2017 13:58
--- NOTE | 2017-01-29 14:17 | PATHOLOGY ---
PATHOLOGY REPORT * * * * * * * * FINAL DIAGNOSIS: A. L3 biopsy: - Fragments of bone with associated hemorrhage, consistent with fracture. B. Segments of dense fibroconnective, fibroadipose, and skeletal muscle tissue and bone, decompression: - Focal recent hemorrhage of soft tissues. COMMENT: There is no evidence of malignancy. (JPM:mml; 01/29/2017) REPORT ELECTRONICALLY SIGNED BY: Jesse Gonzalez M.D. DATE/TIME: 01/29/2017 14:17 * * * * * * * * GROSS PATHOLOGY: A. Received in formalin labeled "Jesse Lee, L3 biopsy," are several fragments of dark reddish purple tissue, measuring 0.8 x 0.6 x 0.4 cm in aggregate dimensions. The specimen is submitted entirely in cassette A1. B. Received in formalin labeled "Jesse Lee, decompression" are multiple segments of haney, rubbery, and gritty tissue admixed with bone. The specimen measures 6.8 x 6.5 x 1.8 cm in aggregate dimensions. The tissue is generously sampled in cassettes B1 through B4, following decalcification. (JPM; 01/25/17) INITIAL CPT CODE(S): A; 63493 B; 48209, 68638 Professional services performed by [facility] [place] [address] Technical services performed by [facility] at [address] [place] [address], [address] [address]. SPECIMEN(S) RECEIVED: A.L3 biopsy B.Decompression CLINICAL HISTORY: L3 fracture, L4 hematoma PATIENT: JESSE LEE Rickie /AGE: 9 1945 (Age: 71) PATIENT #: [id number] ALT CASE #: SPECIMEN COLLECTION DATE: 01/24/2017 SPECIMEN RECEIVED DATE: 01/25/2017 [facility] - [id number] [place] [address] - PHONE: [phone] * * * END OF REPORT * * *
[2017-01-29] MEDS: oxyCODONE/APAP 10/325 1 TAB TABLET PO PRN (14:54)
[2017-01-29 15:00] VITALS: BP 134/61
--- NOTE | 2017-01-29 15:11 | PDOC ---
PROGRESS NOTES Subjective Subjective late entry- patient seen at 1300 resting in bed back pain reports that he ambulated to with walker and brace Objective Objective Vital Signs Date Time Temp Pulse Resp B/P (MAP) Pulse Ox O2 Delivery O2 Flow Rate FiO2 01/29/17 14:54 12 94 Room Air 01/29/17 11:00 98.5 58 123/51 (75) 98.5 01/28/17 22:15 2.0 Intake and Output 01/29/17 07:00 Intake Total 850 ml Output Total 1300 ml Balance -450 ml Intake Oral 850 ml Output Urine Total 1300 ml Physical Exam General: Alert, Oriented X3, Cooperative, No acute distress MUSCULOSKELETAL: Other (SUN) Neuro: Other (no change) Skin: Other (dressing changed, ricky intact, dry) Assessment Assessment Problems Medical Problems: (1) Elevated d-dimer Status: Acute (2) Elevated serum creatinine Status: Acute (3) Hypoxia Status: Acute (4) Lactic acidosis Status: Acute (5) 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 Labs Laboratory Tests Test 01/27/17 16:40 01/27/17 20:36 01/28/17 04:20 01/28/17 08:17 Glucose (Fingerstick) 154 mg/dL (70-99) 133 mg/dL (70-99) 120 mg/dL (70-99) White Blood Count 10.6 x10^3/uL (4.0-11.0) Red Blood Count 2.35 x10^6/uL (4.30-5.70) Hemoglobin 7.5 g/dL (13.0-17.5) Hematocrit 22.5 % (39.0-53.0) Mean Corpuscular Volume 96 fL (79-100) Mean Corpuscular Hemoglobin 32 pg (25-35) Mean Corpuscular Hemoglobin Concent 33 g/dL (31-37) Red Cell Distribution Width 17.0 % (11.5-14.5) Platelet Count 147 x10^3/uL (140-400) Neutrophils (%) (Auto) 87 % (31-73) Lymphocytes (%) (Auto) 6 % (24-48) Monocytes (%) (Auto) 7 % (0-9) Eosinophils (%) (Auto) 0 % (0-3) Basophils (%) (Auto) 0 % (0-3) Neutrophils # (Auto) 9.3 x10^3uL (1.8-7.7) Lymphocytes # (Auto) 0.6 x10^3/uL (1.0-4.8) Monocytes # (Auto) 0.7 x10^3/uL (0.0-1.1) Eosinophils # (Auto) 0.0 x10^3/uL (0.0-0.7) Basophils # (Auto) 0.0 x10^3/uL (0.0-0.2) Segmented Neutrophils % 93 % (35-66) Band Neutrophils % 1 % (0-9) Lymphocytes % 3 % (24-48) Monocytes % 3 % (0-10) Platelet Estimate Adequate (ADEQUATE) Polychromasia Present Anisocytosis Present Sodium Level 136 mmol/L (136-145) Potassium Level 4.9 mmol/L (3.5-5.1) Chloride Level 102 mmol/L (98-107) Carbon Dioxide Level 30 mmol/L (21-32) Anion Gap 4 (6-14) Blood Urea Nitrogen 39 mg/dL (8-26) Creatinine 1.3 mg/dL (0.7-1.3) Estimated GFR (Cockcroft-Gault) 54.4 Glucose Level 135 mg/dL (70-99) Calcium Level 8.2 mg/dL (8.5-10.1) Test 01/28/17 12:32 01/28/17 17:01 01/28/17 21:10 01/29/17 03:52 Glucose (Fingerstick) 131 mg/dL (70-99) 121 mg/dL (70-99) 142 mg/dL (70-99) White Blood Count 12.5 x10^3/uL (4.0-11.0) Red Blood Count 2.47 x10^6/uL (4.30-5.70) Hemoglobin 7.7 g/dL (13.0-17.5) Hematocrit 23.7 % (39.0-53.0) Mean Corpuscular Volume 96 fL (79-100) Mean Corpuscular Hemoglobin 31 pg (25-35) Mean Corpuscular Hemoglobin Concent 33 g/dL (31-37) Red Cell Distribution Width 17.3 % (11.5-14.5) Platelet Count 182 x10^3/uL (140-400) Neutrophils (%) (Auto) 89 % (31-73) Lymphocytes (%) (Auto) 5 % (24-48) Monocytes (%) (Auto) 6 % (0-9) Eosinophils (%) (Auto) 0 % (0-3) Basophils (%) (Auto) 0 % (0-3) Neutrophils # (Auto) 11.1 x10^3uL (1.8-7.7) Lymphocytes # (Auto) 0.6 x10^3/uL (1.0-4.8) Monocytes # (Auto) 0.8 x10^3/uL (0.0-1.1) Eosinophils # (Auto) 0.0 x10^3/uL (0.0-0.7) Basophils # (Auto) 0.0 x10^3/uL (0.0-0.2) Sodium Level 137 mmol/L (136-145) Potassium Level 4.6 mmol/L (3.5-5.1) Chloride Level 103 mmol/L (98-107) Carbon Dioxide Level 30 mmol/L (21-32) Anion Gap 4 (6-14) Blood Urea Nitrogen 38 mg/dL (8-26) Creatinine 1.3 mg/dL (0.7-1.3) Estimated GFR (Cockcroft-Gault) 54.4 Glucose Level 129 mg/dL (70-99) Calcium Level 8.4 mg/dL (8.5-10.1) Test 01/29/17 07:39 01/29/17 12:25 Glucose (Fingerstick) 117 mg/dL (70-99) 111 mg/dL (70-99) Laboratory Tests Test 01/28/17 17:01 01/28/17 21:10 01/29/17 03:52 01/29/17 07:39 Glucose (Fingerstick) 121 mg/dL (70-99) 142 mg/dL (70-99) 117 mg/dL (70-99) White Blood Count 12.5 x10^3/uL (4.0-11.0) Red Blood Count 2.47 x10^6/uL (4.30-5.70) Hemoglobin 7.7 g/dL (13.0-17.5) Hematocrit 23.7 % (39.0-53.0) Mean Corpuscular Volume 96 fL (79-100) Mean Corpuscular Hemoglobin 31 pg (25-35) Mean Corpuscular Hemoglobin Concent 33 g/dL (31-37) Red Cell Distribution Width 17.3 % (11.5-14.5) Platelet Count 182 x10^3/uL (140-400) Neutrophils (%) (Auto) 89 % (31-73) Lymphocytes (%) (Auto) 5 % (24-48) Monocytes (%) (Auto) 6 % (0-9) Eosinophils (%) (Auto) 0 % (0-3) Basophils (%) (Auto) 0 % (0-3) Neutrophils # (Auto) 11.1 x10^3uL (1.8-7.7) Lymphocytes # (Auto) 0.6 x10^3/uL (1.0-4.8) Monocytes # (Auto) 0.8 x10^3/uL (0.0-1.1) Eosinophils # (Auto) 0.0 x10^3/uL (0.0-0.7) Basophils # (Auto) 0.0 x10^3/uL (0.0-0.2) Sodium Level 137 mmol/L (136-145) Potassium Level 4.6 mmol/L (3.5-5.1) Chloride Level 103 mmol/L (98-107) Carbon Dioxide Level 30 mmol/L (21-32) Anion Gap 4 (6-14) Blood Urea Nitrogen 38 mg/dL (8-26) Creatinine 1.3 mg/dL (0.7-1.3) Estimated GFR (Cockcroft-Gault) 54.4 Glucose Level 129 mg/dL (70-99) Calcium Level 8.4 mg/dL (8.5-10.1) Test 01/29/17 12:25 Glucose (Fingerstick) 111 mg/dL (70-99) Microbiology 01/15/17 Blood Culture - Final, Complete NO GROWTH AFTER 5 DAYS Medications Current Medications Fentanyl Citrate (Fentanyl 2ml Vial) 50 mcg 1X ONCE IV Last administered on 21:52; Start 01/15/17 at 22:00; Stop 01/15/17 at 22:01; Status DC Sodium Chloride 1,000 ml @ 150 mls/hr 1X ONCE IV Last administered on 22:31; Start 01/15/17 at 22:00; Stop 01/16/17 at 04:39; Status DC Piperacillin Sod/ Tazobactam Sod 3.375 gm/Dextrose 50 ml @ 100 mls/hr 1X ONCE IV Last administered on 01/15/17 23:22; Start 01/15/17 at 23:30; Stop 01/15 at 23:59; Status DC Heparin Sodium (Porcine) (Heparin Sodium) 9,450 unit 1X ONCE IV Last administered on 01/15/17 23:30; Start 01/15/17 at 23:30; Stop 01/16/17 at 16 :41; Status DC Heparin Sodium/ Dextrose 500 ml @ 0 mls/hr CONT PRN IV SEE I/O RECORD Last administered on 01/16/17 16:26; Start 01/15/17 at 23:15; Stop 01/16/17 at 16 :41; Status DC Heparin Sodium (Porcine) (Heparin Sodium) 3,550 unit PRN Q6HRS PRN IV FOR UFH LEVEL LESS THAN 0.2; Start 01/15/17 at 23:15; Stop 01/16/17 at 16:41; Status DC Heparin Sodium (Porcine) (Heparin Sodium) 1,750 unit PRN Q6HRS PRN IV FOR UFH LEVEL 0.2 - 0.29; Start 01/15/17 at 23:15; Stop 01/16/17 at 16:41; Status DC Warfarin Sodium (Coumadin Per Pharmacy) 1 each PRN DAILY PRN MC PER PROTOCOL Last administered on 01/16/17 10:20; Start 01/15/17 at 23:15; Stop 01/16/17 at 16:39; Status DC Info (Anti-Coagulation Monitoring By Pharmacy) 1 each PRN DAILY PRN MC SEE COMMENTS Last administered on 01/16/17 10:17; Start 01/15/17 at 23:30; Stop 01/18/17 at 14:31; Status DC Ondansetron HCl (Zofran) 4 mg PRN Q8HRS PRN IV NAUSEA/VOMITING; Start at 23:15; Stop 01/16/17 at 23:14; Status DC Fentanyl Citrate (Fentanyl 2ml Vial) 50 mcg PRN Q2HR PRN IV SEVERE PAIN Last administered on 01/16/17 01:33; Start 01/15/17 at 23:15; Stop 01/16/17 at 02 :47; Status DC Piperacillin Sod/ Tazobactam Sod (Zosyn Per Pharmacy) 1 each PRN DAILY PRN MC SEE COMMENTS; Start 01/15/17 at 23:15; Stop 01/16/17 at 02:54; Status DC Sodium Chloride 1,000 ml @ 150 mls/hr 1X ONCE IV Last administered on 01:34; Start 01/15/17 at 23:45; Stop 01/16/17 at 06:24; Status DC Albuterol Sulfate (Ventolin Neb Soln) 2.5 mg PRN Q3HRS PRN NEB WHEEZING Last administered on 01/16/17 11:24; Start 01/15/17 at 23:30 Morphine Sulfate 2 mg 1X ONCE IV Last administered on 01/15/17 23:47; Start 01/16/17 at 00:00; Stop 01/16/17 at 00:01; Status DC Fentanyl Citrate (Fentanyl 2ml Vial) 75 mcg PRN Q2HR PRN IV SEVERE PAIN Last administered on 01/16/17 13:56; Start 01/16/17 at 02:45; Stop 01/16/17 at 16 :41; Status DC Piperacillin Sod/ Tazobactam Sod (Zosyn Per Pharmacy) 1 each PRN DAILY PRN MC SEE COMMENTS; Start 01/16/17 at 02:45; Stop 01/17/17 at 16:01; Status DC Piperacillin Sod/ Tazobactam Sod (Zosyn) 2.25 gm Q6HRS IVP Last administered on 01/17/17 12:01; Start 01/16/17 at 06:00; Stop 01/17/17 at 16:01; Status DC Info (Anti-Coagulation Monitoring By Pharmacy) 1 each PRN DAILY PRN MC SEE COMMENTS; Start 01/16/17 at 09:45; Status Cancel Warfarin Sodium (Coumadin) 5 mg 1X WARF ONCE PO ; Start 01/16/17 at 16:00; Stop 01/16/17 at 16:39; Status DC Lactobacillus Rhamnosus (Culturelle) 1 cap BID PO Last administered on 09:24; Start 01/16/17 at 21:00 Magnesium Sulfate/ Dextrose 50 ml @ 25 mls/hr 1X ONCE IV Last administered on 01/16/17 12:45; Start 01/16/17 at 11:30; Stop 01/16/17 at 13:29; Status DC Linezolid 300 ml @ 300 mls/hr Q12HR IV Last administered on 01/16/17 20:58; Start 01/16/17 at 12:00; Stop 01/17/17 at 08:14; Status DC Iohexol (Omnipaque 240 Mg/ml) 30 ml 1X ONCE PO ; Start 01/16/17 at 12:00; Stop 01/16/17 at 12:01; Status DC Info (Do NOT chart on this entry -- for MONITORING) 1 each PRN DAILY PRN MC SEE COMMENTS; Start 01/16/17 at 12:00; Stop 01/18/17 at 11:59; Status DC Magnesium Sulfate/ Dextrose 50 ml @ 25 mls/hr PRN DAILY PRN IV for Mag < 1.7 on am labs; Start 01/16/17 at 13:15 Metoprolol Succinate (Toprol Xl) 50 mg BID PO Last administered on 01/21/17 08 :11; Start 01/16/17 at 21:00; Stop 01/21/17 at 08:33; Status DC Sodium Chloride 1,000 ml @ 100 mls/hr Q10H IV Last administered on 01/18/17 05:45; Start 01/16/17 at 13:45; Stop 01/18/17 at 11:44; Status DC Aspirin (Charmaine Aspirin) 325 mg DAILYWBKFT PO Last administered on 01/19/17 08: 35; Start 01/17/17 at 08:00; Stop 01/19/17 at 09:49; Status DC Atorvastatin Calcium (Lipitor) 40 mg QHS PO Last administered on 01/28/17 22: 14; Start 01/16/17 at 21:00 Vitamin D (Vitamin D3) 2,000 unit DAILY PO Last administered on 01/29/17 09: 25; Start 01/17/17 at 09:00 Clonidine HCl (Catapres) 0.1 mg BID PO Last administered on 01/19/17 08:35; Start 01/16/17 at 21:00; Stop 01/19/17 at 09:52; Status DC Folic Acid (Folic Acid) 1 mg DAILY PO Last administered on 01/29/17 09:26; Start 01/17/17 at 09:00 Loperamide HCl (Imodium) 2 mg Q2H PRN PO diarrhea; Start 01/16/17 at 16:45 Metoprolol Succinate (Toprol Xl) 100 mg BID PO ; Start 01/16/17 at 21:00; Status UNV Gabapentin (Neurontin) 600 mg TID PO Last administered on 01/29/17 14:45; Start 01/16/17 at 21:00 Pantoprazole Sodium (Protonix) 40 mg DAILYAC PO Last administered on 05:59; Start 01/17/17 at 07:30 Insulin Aspart (NovoLOG) 0-9 UNITS TIDWMEALS SQ Last administered on 01/22/17 17:00; Start 01/16/17 at 17:00 Dextrose (Dextrose 50%-Water Syringe) 12.5 gm PRN Q15MIN PRN IV SEE COMMENTS; Start 01/16/17 at 16:45 Dexamethasone Sodium Phosphate (Decadron) 10 mg 1X ONCE IV Last administered on 01/16/17 17:05; Start 01/16/17 at 16:45; Stop 01/16/17 at 16:46; Status DC Dexamethasone Sodium Phosphate (Decadron) 4 mg Q6HRS IV Last administered on 05:58; Start 01/17/17 at 00:00; Stop 01/18/17 at 15:31; Status DC Morphine Sulfate 2 mg PRN Q2HR PRN IV PAIN Last administered on 01/24/17 19:52 ; Start 01/16/17 at 16:45; Stop 01/24/17 at 22:39; Status DC Oxycodone/ Acetaminophen (Percocet 10/325) 1 tab PRN Q4HRS PRN PO SEVERE PAIN Last administered on 01/29/17 14:54; Start 01/16/17 at 16:45 Heparin Sodium (Porcine) (Heparin Sq) 5,000 unit Q8HRS SQ Last administered on 01/23/17 06:00; Start 01/16/17 at 22:00; Stop 01/23/17 at 13:16; Status DC Diazepam (Valium) 5 mg PRN Q6HRS PRN IV SEIZURES; Start 01/16/17 at 18:30; Status Cancel Diazepam (Valium) 5 mg PRN Q6HRS PRN PO TREMORS Last administered on 14:04; Start 01/16/17 at 18:45 Fentanyl Citrate (Fentanyl 2ml Vial) 100 mcg STK-MED ONCE .ROUTE ; Start at 10:08; Stop 01/17/17 at 10:09; Status DC Midazolam HCl (Versed) 2 mg STK-MED ONCE .ROUTE ; Start 01/17/17 at 10:08; Stop 01/17/17 at 10:09; Status DC Lidocaine/Sodium Bicarbonate (Buffered Lidocaine 1%) 20 ml 1X ONCE IJ Last administered on 01/17/17 10:51; Start 01/17/17 at 10:15; Stop 01/17/17 at 10:16 ; Status DC Midazolam HCl (Versed) 2 mg 1X ONCE IV Last administered on 01/17/17 10:52; Start 01/17/17 at 10:15; Stop 01/17/17 at 10:16; Status DC Fentanyl Citrate (Fentanyl 2ml Vial) 100 mcg 1X ONCE IV Last administered on 01/17/17 10:52; Start 01/17/17 at 10:15; Stop 01/17/17 at 10:16; Status DC Lidocaine/Sodium Bicarbonate (Buffered Lidocaine 1%) 20 ml STK-MED ONCE IJ ; Start 01/17/17 at 10:14; Stop 01/17/17 at 10:15; Status DC Piperacillin Sod/ Tazobactam Sod (Zosyn) 3.375 gm Q6HRS IVP Last administered on 01/18/17 06:00; Start 01/17/17 at 18:00; Stop 01/18/17 at 10:42; Status DC Dexamethasone Sodium Phosphate (Decadron) 4 mg Q12HR IV Last administered on 09:27; Start 01/18/17 at 21:00; Stop 01/29/17 at 13:47; Status DC Aspirin (Ecotrin) 81 mg DAILYWBKFT PO Last administered on 01/29/17 09:29; Start 01/20/17 at 08:00 Amlodipine Besylate (Norvasc) 10 mg DAILY PO Last administered on 01/24/17 09: 35; Start 01/19/17 at 10:00; Stop 01/25/17 at 12:44; Status DC Oxycodone HCl (OxyCONTIN) 30 mg Q12HR PO Last administered on 01/29/17 09:23 ; Start 01/19/17 at 11:45 Senna/Docusate Sodium (Senna Plus) 2 tab DAILY PO Last administered on 09:28; Start 01/19/17 at 12:00 Gadobutrol (Gadavist) 10 mmol 1X ONCE IV ; Start 01/19/17 at 15:45; Stop at 15:46; Status DC Sodium Chloride 1,000 ml @ 75 mls/hr [id number] IV Last administered on 02:12; Start 01/20/17 at 11:15; Stop 01/21/17 at 18:06; Status DC Polyethylene Glycol (miraLAX PACKET) 17 gm DAILY PO Last administered on 09:28; Start 01/20/17 at 15:00 Metoprolol Succinate (Toprol Xl) 50 mg DAILY PO Last administered on 08:25; Start 01/21/17 at 09:00; Stop 01/26/17 at 09:48; Status DC Bacitracin 72822 unit/Sodium Chloride 1,000 ml @ 1,000 mls/hr 1X PERIOP ONCE IRR Last administered on 01/24/17 12:59; Start 01/24/17 at 06:00; Stop at 06:59; Status DC Ondansetron HCl (Zofran) 4 mg PRN Q6HRS PRN IV NAUSEA/VOMITING; Start 01/24/17 at 07:00; Stop 01/25/17 at 06:59; Status DC Fentanyl Citrate (Fentanyl 2ml Vial) 25 mcg PRN Q5MIN PRN IV MILD PAIN; Start 01/24/17 at 07:00; Stop 01/24/17 at 22:48; Status DC Fentanyl Citrate (Fentanyl 2ml Vial) 50 mcg PRN Q5MIN PRN IV MODERATE PAIN Last administered on 01/24/17 19:01; Start 01/24/17 at 07:00; Stop 01/24/17 at 22:48; Status DC Morphine Sulfate 1 mg PRN Q10MIN PRN IV SEVERE PAIN; Start 01/24/17 at 07:00; Stop 01/24/17 at 22:48; Status DC Ringer's Solution 1,000 ml @ 30 mls/hr Q24H IV Last administered on 01/24/17 11:40; Start 01/24/17 at 07:00; Stop 01/24/17 at 18:59; Status DC Lidocaine HCl (Xylocaine-Mpf 1% Vial) 2 ml PRN 1X PRN ID IV START; Start at 07:00; Stop 01/25/17 at 06:59; Status DC Hydromorphone HCl (Dilaudid) 0.5 mg PRN Q10MIN PRN IV SEV PAIN, Second choice; Start 01/24/17 at 07:00; Stop 01/24/17 at 22:48; Status DC Prochlorperazine Edisylate (Compazine) 5 mg PACU PRN PRN IV NAUSEA, MRX1; Start 01/24/17 at 07:00; Stop 01/24/17 at 22:48; Status DC Cefazolin Sodium/ Dextrose 50 ml @ 100 mls/hr 1X PREOP PRN IV PRE-OP Last administered on 01/24/17 12:25; Start 01/23/17 at 13:15; Stop 01/24/17 at 18:00 ; Status DC Gelatin (Gelfoam Size 100) 1 each STK-MED ONCE .ROUTE Last administered on 12:59; Start 01/24/17 at 07:30; Stop 01/24/17 at 07:31; Status DC Bupivacaine HCl/ Epinephrine Bitart (Sensorcain-Mpf Epi 0.5%-1:[id number]) 30 ml STK -MED ONCE .ROUTE Last administered on 01/24/17 12:59; Start 01/24/17 at 07:31 ; Stop 01/24/17 at 07:32; Status DC Ketorolac Tromethamine (Toradol For Or Only) 60 mg STK-MED ONCE .ROUTE Last administered on 01/24/17t 12:59; Start 01/24/17 at 07:31; Stop 01/24/17 at 07:32 ; Status DC Thrombin 20,000 unit STK-MED ONCE TP Last administered on 01/24/17t 12:59; Start 01/24/17 at 07:31; Stop 01/24/17 at 07:32; Status DC Midazolam HCl (Versed) 2 mg STK-MED ONCE .ROUTE ; Start 01/24/17 at 11:05; Stop 01/24/17 at 11:06; Status DC Fentanyl Citrate (Fentanyl 5ml Vial) 250 mcg STK-MED ONCE .ROUTE ; Start at 11:05; Stop 01/24/17 at 11:06; Status DC Rocuronium [place] (Zemuron) 50 mg STK-MED ONCE .ROUTE ; Start 01/24/17 at 11:05 ; Stop 01/24/17 at 11:06; Status DC Remifentanil HCl (Ultiva) 2 mg STK-MED ONCE IV ; Start 01/24/17 at 11:05; Stop 01/24/17 at 11:06; Status DC Propofol 50 ml @ As Directed STK-MED ONCE IV ; Start 01/24/17 at 11:09; Stop at 11:10; Status DC Multi-Ingred Cream/Lotion/Oil/ Oint (Artificial Tears Eye Oint) 7 jose a STK-MED ONCE .ROUTE ; Start 01/24/17 at 11:09; Stop 01/24/17 at 11:10; Status DC Propofol 0 ml @ As Directed STK-MED ONCE IV ; Start 01/24/17 at 11:10; Stop 01/24/17 at 11:11; Status DC Lidocaine HCl (Lidocaine Pf 2% Vial) 5 ml STK-MED ONCE .ROUTE ; Start 01/24/17 at 11:10; Stop 01/24/17 at 11:11; Status DC Dexamethasone Sodium Phosphate (Decadron) 20 mg STK-MED ONCE .ROUTE ; Start 01/24/17 at 11:10; Stop 01/24/17 at 11:11; Status DC Ondansetron HCl (Zofran) 4 mg STK-MED ONCE .ROUTE ; Start 01/24/17 at 11:10; Stop 01/24/17 at 11:11; Status DC Desflurane (Suprane) 90 ml STK-MED ONCE IH ; Start 01/24/17 at 11:10; Stop 01/24 at 11:11; Status DC Sodium Chloride (Sodium Chloride) 50 ml STK-MED ONCE IJ ; Start 01/24/17 at 11: 11; Stop 01/24/17 at 11:12; Status DC Phenylephrine HCl 1 mg STK-MED ONCE IV ; Start 01/24/17 at 12:02; Stop 01/24/17 at 12:03; Status DC Glycopyrrolate (Robinul) 1 mg STK-MED ONCE .ROUTE ; Start 01/24/17 at 12:28; Stop 01/24/17 at 12:29; Status DC Neostigmine Methylsulfate 5 mg STK-MED ONCE .ROUTE ; Start 01/24/17 at 12:28; Stop 01/24/17 at 12:29; Status DC Ephedrine Sulfate (Akovaz) 50 mg STK-MED ONCE .ROUTE ; Start 01/24/17 at 14:05; Stop 01/24/17 at 14:06; Status DC Albumin Human 500 ml @ As Directed STK-MED ONCE IV ; Start 01/24/17 at 14:07; Stop 01/24/17 at 14:08; Status DC Remifentanil HCl (Ultiva) 2 mg STK-MED ONCE IV ; Start 01/24/17 at 14:55; Stop 01/24/17 at 14:56; Status DC Propofol 50 ml @ As Directed STK-MED ONCE IV ; Start 01/24/17 at 14:57; Stop at 14:58; Status DC Propofol 20 ml @ As Directed STK-MED ONCE IV ; Start 01/24/17 at 14:57; Stop at 14:58; Status DC Propofol 20 ml @ As Directed STK-MED ONCE IV ; Start 01/24/17 at 15:09; Stop at 15:10; Status DC Propofol 50 ml @ As Directed STK-MED ONCE IV ; Start 01/24/17 at 15:50; Stop at 15:51; Status DC Cefazolin Sodium/ Dextrose 50 ml @ As Directed STK-MED ONCE IV ; Start 01/24/17 at 16:20; Stop 01/24/17 at 16:21; Status DC Phenylephrine HCl 1 mg STK-MED ONCE IV ; Start 01/24/17 at 16:54; Stop 01/24/17 at 16:55; Status DC Propofol 50 ml @ As Directed STK-MED ONCE IV ; Start 01/24/17 at 17:10; Stop at 17:11; Status DC Remifentanil HCl (Ultiva) 2 mg STK-MED ONCE IV ; Start 01/24/17 at 17:10; Stop 01/24/17 at 17:11; Status DC Propofol 50 ml @ As Directed STK-MED ONCE IV ; Start 01/24/17 at 17:30; Stop at 17:31; Status DC Hydromorphone HCl (Dilaudid) 2 mg STK-MED ONCE .ROUTE ; Start 01/24/17 at 18:07 ; Stop 01/24/17 at 18:08; Status DC Fentanyl Citrate (Fentanyl 2ml Vial) 100 mcg STK-MED ONCE .ROUTE ; Start at 18:07; Stop 01/24/17 at 18:08; Status DC Morphine Sulfate 2 mg PRN Q2HR PRN IV SEVERE PAIN Last administered on 07:21; Start 01/24/17 at 22:45 Amlodipine Besylate (Norvasc) 5 mg DAILY PO Last administered on 01/29/17 09: 26; Start 01/26/17 at 09:00 Sodium Chloride 1,000 ml @ 75 mls/hr 1X ONCE IV Last administered on 13:25; Start 01/25/17 at 12:45; Stop 01/26/17 at 02:04; Status DC Metoprolol Succinate (Toprol Xl) 25 mg BID PO Last administered on 01/29/17 09:25; Start 01/26/17 at 21:00 Heparin Sodium (Porcine) (Heparin Sq) 5,000 unit Q8HRS SQ Last administered on 01/29/17 14:50; Start 01/27/17 at 14:00 Acetaminophen/ Hydrocodone Bitart (Lortab 10325) 1 tab PRN Q6HRS PRN PO MODERATE PAIN Last administered on 01/29/17t 12:34; Start 01/29/17 at 10:30 Dexamethasone (Decadron) 4 mg QID PO ; Start 01/29/17 at 17:00 Active Scripts Active Reported Imodium A-D (Loperamide HCl) 2 Mg Capsule 2 Mg PO Aspirin 325 Mg Tablet 1 Tab PO DAILY Vitamin D3 (Cholecalciferol (Vitamin D3)) 1,000 Unit Tablet 2,000 Unit PO Vicodin Es 7.5-300 Mg Tablet (Hydrocodone Bit/Acetaminophen) 1 Each Tablet 1 Each PO Q6H PRN Humira (Adalimumab) 40 Mg/0.8 Ml Pen.ij.kit 1 Syr SQ Q2WKS Folbic Rf Tablet (B12/Levomefolate Calcium/B-6) 1 Each Tablet 1 Each PO Omeprazole 40 Mg Capsule.dr 1 Cap PO DAILY Cholestyramine Packet (Cholestyramine (With Sugar)) 4 Gm Powd.pack 4 Gm PO Gabapentin 600 Mg Tablet 600 Mg PO TID Folic Acid 1 Mg Tablet 1 Tab PO DAILY Clonidine Hcl 0.1 Mg Tablet 0.1 Mg PO BID Metformin Hcl 1,000 Mg Tablet 1,000 Mg PO BIDWMEALS Atorvastatin Calcium 40 Mg Tablet 1 Tab PO DAILY Metoprolol Succinate ( Xl ) (Metoprolol Succinate) 100 Mg Tab.er.24h 100 Mg PO BID Vitals/I & O Vital Sign - Last 24 Hours 01/28/17 01/28/17 01/28/17 01/28/17 15:16 19:00 20:00 22:14 Temp 96.6 96.6 Pulse 54 Resp 20 16 20 B/P (MAP) 121/68 (85) Pulse Ox 99 99 O2 Delivery Room Air Room Air Nasal Cannula Nasal Cannula O2 Flow Rate 2.0 2.0 01/28/17 01/28/17 01/28/17 01/28/17 22:14 22:15 23:00 23:14 Temp 97.5 97.5 Pulse 54 72 Resp 20 13 20 B/P (MAP) 121/68 115/85 (95) Pulse Ox 99 94 96 O2 Delivery Nasal Cannula BiPAP/CPAP BiPAP/CPAP O2 Flow Rate 2.0 01/29/17 01/29/17 01/29/17 01/29/17 03:00 07:00 08:02 09:23 Temp 97.5 98.4 97.5 98.4 Pulse 53 61 Resp 16 18 12 B/P (MAP) 127/58 (81) 128/63 (84) Pulse Ox 96 100 93 O2 Delivery Room Air Room Air Nasal Cannula Room Air 01/29/17 01/29/17 01/29/17 01/29/17 09:25 09:26 11:00 12:34 Temp 98.5 98.5 Pulse 61 61 58 Resp 18 12 B/P (MAP) 128/63 128/63 123/51 (75) Pulse Ox 99 95 O2 Delivery Room Air Room Air 01/29/17 01/29/17 01/29/17 13:23 13:23 14:54 Resp 12 12 12 Pulse Ox 95 95 94 O2 Delivery Room Air Room Air Room Air Intake and Output 01/28/17 01/28/17 01/29/17 15:00 23:00 07:00 Intake Total 850 ml Output Total 1300 ml Balance 850 ml -1300 ml SOULEYMANE PAULSON APRN Jan 29, 2017 15:11
[2017-01-29] MEDS: DEXAMETHASONE 4 MG TABLET PO SCH ×2 (17:35→21:42)
[2017-01-29 19:15] VITALS: BP 116/53
[2017-01-29] MEDS: ATORVASTATIN CALCIUM 40 MG TABLET. PO SCH (21:41)
[2017-01-29 23:21] VITALS: BP 130/66
[2017-01-30 02:42] VITALS: BP 138/68
[2017-01-30 05:03] LABS: BASO % 0 % (0-3); EOS % 0 % (0-3); HEMATOCRIT 24.2 % (39.0-53.0); HEMOGLOBIN 7.8 g/dL (13.0-17.5); LYMPH # 0.5 x10^3/uL (1.0-4.8); LYMPH % 5 % (24-48); MEAN CORPUSCULAR HEMOGLOBIN 31 pg (25-35); MEAN CORPUSCULAR HGB CONC 32 g/dL (31-37); MEAN CORPUSCULAR VOLUME 97 fL (79-100); MONO % 4 % (0-9); NEUT % 91 % (31-73); PLATELET COUNT 193 x10^3/uL (140-400); RED BLOOD COUNT 2.49 x10^6/uL (4.30-5.70); RED CELL DISTRIBUTION WIDTH 17.9 % (11.5-14.5); WHITE BLOOD COUNT 11.3 x10^3/uL (4.0-11.0)
[2017-01-30] MEDS: HYDROcodone/APAP 10/325 1 TAB TABLET PO PRN ×2 (05:47→10:26)
[2017-01-30] MEDS: HEPARIN PF for SUB-Q USE 5,000 UNIT/0.5 ML VIAL. SQ SCH ×2 (05:51→13:29)
[2017-01-30 07:00] VITALS: BP 129/61
[2017-01-30] MEDS: INSULIN ASPART 300 UNITS/3 ML INSULN.PEN SQ SCH ×2 (08:00→11:33)
[2017-01-30] MEDS: SENNOSIDES/DOCUSATE 8.6/50MG TABLET. PO SCH (09:00)
[2017-01-30] MEDS: POLYETHYLENE GLYCOL 3350 17 GM PACKET. PO SCH (09:00)
--- NOTE | 2017-01-30 09:33 | PDOC ---
PROGRESS NOTES Subjective Subjective No new complaints. Objective Objective Vital Signs Date Time Temp Pulse Resp B/P (MAP) Pulse Ox O2 Delivery O2 Flow Rate FiO2 01/30/17 07:00 97.5 56 18 129/61 (83) 96 Room Air 97.5 01/28/17 22:15 2.0 Intake and Output 01/30/17 07:00 Intake Total 700 ml Output Total 2100 ml Balance -1400 ml Intake Oral 700 ml Output Urine Total 2100 ml # Bowel Movements 2 Physical Exam Physical Exam He is comfortable supine in bed and he was sitting up in bedside chair with back brace on for 3 hours yesterday. He still had indwelling Carlos catheter in place and he required two person assistance for transfer yesterday as he is anxious. 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 Comment Review of Relevant I have reviewed the following items bernadine (where applicable) has been applied. Labs Laboratory Tests Test 01/28/17 12:32 01/28/17 17:01 01/28/17 21:10 01/29/17 03:52 Glucose (Fingerstick) 131 mg/dL (70-99) 121 mg/dL (70-99) 142 mg/dL (70-99) White Blood Count 12.5 x10^3/uL (4.0-11.0) Red Blood Count 2.47 x10^6/uL (4.30-5.70) Hemoglobin 7.7 g/dL (13.0-17.5) Hematocrit 23.7 % (39.0-53.0) Mean Corpuscular Volume 96 fL (79-100) Mean Corpuscular Hemoglobin 31 pg (25-35) Mean Corpuscular Hemoglobin Concent 33 g/dL (31-37) Red Cell Distribution Width 17.3 % (11.5-14.5) Platelet Count 182 x10^3/uL (140-400) Neutrophils (%) (Auto) 89 % (31-73) Lymphocytes (%) (Auto) 5 % (24-48) Monocytes (%) (Auto) 6 % (0-9) Eosinophils (%) (Auto) 0 % (0-3) Basophils (%) (Auto) 0 % (0-3) Neutrophils # (Auto) 11.1 x10^3uL (1.8-7.7) Lymphocytes # (Auto) 0.6 x10^3/uL (1.0-4.8) Monocytes # (Auto) 0.8 x10^3/uL (0.0-1.1) Eosinophils # (Auto) 0.0 x10^3/uL (0.0-0.7) Basophils # (Auto) 0.0 x10^3/uL (0.0-0.2) Sodium Level 137 mmol/L (136-145) Potassium Level 4.6 mmol/L (3.5-5.1) Chloride Level 103 mmol/L (98-107) Carbon Dioxide Level 30 mmol/L (21-32) Anion Gap 4 (6-14) Blood Urea Nitrogen 38 mg/dL (8-26) Creatinine 1.3 mg/dL (0.7-1.3) Estimated GFR (Cockcroft-Gault) 54.4 Glucose Level 129 mg/dL (70-99) Calcium Level 8.4 mg/dL (8.5-10.1) Test 01/29/17 07:39 01/29/17 12:25 01/29/17 16:56 01/29/17 20:37 Glucose (Fingerstick) 117 mg/dL (70-99) 111 mg/dL (70-99) 124 mg/dL (70-99) 159 mg/dL (70-99) Test 01/30/17 03:20 01/30/17 07:08 White Blood Count 11.3 x10^3/uL (4.0-11.0) Red Blood Count 2.49 x10^6/uL (4.30-5.70) Hemoglobin 7.8 g/dL (13.0-17.5) Hematocrit 24.2 % (39.0-53.0) Mean Corpuscular Volume 97 fL (79-100) Mean Corpuscular Hemoglobin 31 pg (25-35) Mean Corpuscular Hemoglobin Concent 32 g/dL (31-37) Red Cell Distribution Width 17.9 % (11.5-14.5) Platelet Count 193 x10^3/uL (140-400) Neutrophils (%) (Auto) 91 % (31-73) Lymphocytes (%) (Auto) 5 % (24-48) Monocytes (%) (Auto) 4 % (0-9) Eosinophils (%) (Auto) 0 % (0-3) Basophils (%) (Auto) 0 % (0-3) Neutrophils # (Auto) 10.3 x10^3uL (1.8-7.7) Lymphocytes # (Auto) 0.5 x10^3/uL (1.0-4.8) Monocytes # (Auto) 0.5 x10^3/uL (0.0-1.1) Eosinophils # (Auto) 0.0 x10^3/uL (0.0-0.7) Basophils # (Auto) 0.0 x10^3/uL (0.0-0.2) Glucose (Fingerstick) 136 mg/dL (70-99) Laboratory Tests Test 01/29/17 12:25 01/29/17 16:56 01/29/17 20:37 01/30/17 03:20 Glucose (Fingerstick) 111 mg/dL (70-99) 124 mg/dL (70-99) 159 mg/dL (70-99) White Blood Count 11.3 x10^3/uL (4.0-11.0) Red Blood Count 2.49 x10^6/uL (4.30-5.70) Hemoglobin 7.8 g/dL (13.0-17.5) Hematocrit 24.2 % (39.0-53.0) Mean Corpuscular Volume 97 fL (79-100) Mean Corpuscular Hemoglobin 31 pg (25-35) Mean Corpuscular Hemoglobin Concent 32 g/dL (31-37) Red Cell Distribution Width 17.9 % (11.5-14.5) Platelet Count 193 x10^3/uL (140-400) Neutrophils (%) (Auto) 91 % (31-73) Lymphocytes (%) (Auto) 5 % (24-48) Monocytes (%) (Auto) 4 % (0-9) Eosinophils (%) (Auto) 0 % (0-3) Basophils (%) (Auto) 0 % (0-3) Neutrophils # (Auto) 10.3 x10^3uL (1.8-7.7) Lymphocytes # (Auto) 0.5 x10^3/uL (1.0-4.8) Monocytes # (Auto) 0.5 x10^3/uL (0.0-1.1) Eosinophils # (Auto) 0.0 x10^3/uL (0.0-0.7) Basophils # (Auto) 0.0 x10^3/uL (0.0-0.2) Test 01/30/17 07:08 Glucose (Fingerstick) 136 mg/dL (70-99) Microbiology 01/15/17 Blood Culture - Final, Complete NO GROWTH AFTER 5 DAYS Medications Current Medications Fentanyl Citrate (Fentanyl 2ml Vial) 50 mcg 1X ONCE IV Last administered on 21:52; Start 01/15/17 at 22:00; Stop 01/15/17 at 22:01; Status DC Sodium Chloride 1,000 ml @ 150 mls/hr 1X ONCE IV Last administered on 22:31; Start 01/15/17 at 22:00; Stop 01/16/17 at 04:39; Status DC Piperacillin Sod/ Tazobactam Sod 3.375 gm/Dextrose 50 ml @ 100 mls/hr 1X ONCE IV Last administered on 01/15/17 23:22; Start 01/15/17 at 23:30; Stop 01/15 at 23:59; Status DC Heparin Sodium (Porcine) (Heparin Sodium) 9,450 unit 1X ONCE IV Last administered on 01/15/17 23:30; Start 01/15/17 at 23:30; Stop 01/16/17 at 16 :41; Status DC Heparin Sodium/ Dextrose 500 ml @ 0 mls/hr CONT PRN IV SEE I/O RECORD Last administered on 01/16/17 16:26; Start 01/15/17 at 23:15; Stop 01/16/17 at 16 :41; Status DC Heparin Sodium (Porcine) (Heparin Sodium) 3,550 unit PRN Q6HRS PRN IV FOR UFH LEVEL LESS THAN 0.2; Start 01/15/17 at 23:15; Stop 01/16/17 at 16:41; Status DC Heparin Sodium (Porcine) (Heparin Sodium) 1,750 unit PRN Q6HRS PRN IV FOR UFH LEVEL 0.2 - 0.29; Start 01/15/17 at 23:15; Stop 01/16/17 at 16:41; Status DC Warfarin Sodium (Coumadin Per Pharmacy) 1 each PRN DAILY PRN MC PER PROTOCOL Last administered on 01/16/17 10:20; Start 01/15/17 at 23:15; Stop 01/16/17 at 16:39; Status DC Info (Anti-Coagulation Monitoring By Pharmacy) 1 each PRN DAILY PRN MC SEE COMMENTS Last administered on 01/16/17 10:17; Start 01/15/17 at 23:30; Stop 01/18/17 at 14:31; Status DC Ondansetron HCl (Zofran) 4 mg PRN Q8HRS PRN IV NAUSEA/VOMITING; Start at 23:15; Stop 01/16/17 at 23:14; Status DC Fentanyl Citrate (Fentanyl 2ml Vial) 50 mcg PRN Q2HR PRN IV SEVERE PAIN Last administered on 01/16/17 01:33; Start 01/15/17 at 23:15; Stop 01/16/17 at 02 :47; Status DC Piperacillin Sod/ Tazobactam Sod (Zosyn Per Pharmacy) 1 each PRN DAILY PRN MC SEE COMMENTS; Start 01/15/17 at 23:15; Stop 01/16/17 at 02:54; Status DC Sodium Chloride 1,000 ml @ 150 mls/hr 1X ONCE IV Last administered on 01:34; Start 01/15/17 at 23:45; Stop 01/16/17 at 06:24; Status DC Albuterol Sulfate (Ventolin Neb Soln) 2.5 mg PRN Q3HRS PRN NEB WHEEZING Last administered on 01/16/17 11:24; Start 01/15/17 at 23:30 Morphine Sulfate 2 mg 1X ONCE IV Last administered on 01/15/17 23:47; Start 01/16/17 at 00:00; Stop 01/16/17 at 00:01; Status DC Fentanyl Citrate (Fentanyl 2ml Vial) 75 mcg PRN Q2HR PRN IV SEVERE PAIN Last administered on 01/16/17 13:56; Start 01/16/17 at 02:45; Stop 01/16/17 at 16 :41; Status DC Piperacillin Sod/ Tazobactam Sod (Zosyn Per Pharmacy) 1 each PRN DAILY PRN MC SEE COMMENTS; Start 01/16/17 at 02:45; Stop 01/17/17 at 16:01; Status DC Piperacillin Sod/ Tazobactam Sod (Zosyn) 2.25 gm Q6HRS IVP Last administered on 01/17/17 12:01; Start 01/16/17 at 06:00; Stop 01/17/17 at 16:01; Status DC Info (Anti-Coagulation Monitoring By Pharmacy) 1 each PRN DAILY PRN MC SEE COMMENTS; Start 01/16/17 at 09:45; Status Cancel Warfarin Sodium (Coumadin) 5 mg 1X WARF ONCE PO ; Start 01/16/17 at 16:00; Stop 01/16/17 at 16:39; Status DC Lactobacillus Rhamnosus (Culturelle) 1 cap BID PO Last administered on 21:41; Start 01/16/17 at 21:00 Magnesium Sulfate/ Dextrose 50 ml @ 25 mls/hr 1X ONCE IV Last administered on 01/16/17 12:45; Start 01/16/17 at 11:30; Stop 01/16/17 at 13:29; Status DC Linezolid 300 ml @ 300 mls/hr Q12HR IV Last administered on 01/16/17 20:58; Start 01/16/17 at 12:00; Stop 01/17/17 at 08:14; Status DC Iohexol (Omnipaque 240 Mg/ml) 30 ml 1X ONCE PO ; Start 01/16/17 at 12:00; Stop 01/16/17 at 12:01; Status DC Info (Do NOT chart on this entry -- for MONITORING) 1 each PRN DAILY PRN MC SEE COMMENTS; Start 01/16/17 at 12:00; Stop 01/18/17 at 11:59; Status DC Magnesium Sulfate/ Dextrose 50 ml @ 25 mls/hr PRN DAILY PRN IV for Mag < 1.7 on am labs; Start 01/16/17 at 13:15 Metoprolol Succinate (Toprol Xl) 50 mg BID PO Last administered on 01/21/17 08 :11; Start 01/16/17 at 21:00; Stop 01/21/17 at 08:33; Status DC Sodium Chloride 1,000 ml @ 100 mls/hr Q10H IV Last administered on 01/18/17 05:45; Start 01/16/17 at 13:45; Stop 01/18/17 at 11:44; Status DC Aspirin (Charmaine Aspirin) 325 mg DAILYWBKFT PO Last administered on 01/19/17 08: 35; Start 01/17/17 at 08:00; Stop 01/19/17 at 09:49; Status DC Atorvastatin Calcium (Lipitor) 40 mg QHS PO Last administered on 01/29/17 21: 41; Start 01/16/17 at 21:00 Vitamin D (Vitamin D3) 2,000 unit DAILY PO Last administered on 01/29/17 09: 25; Start 01/17/17 at 09:00 Clonidine HCl (Catapres) 0.1 mg BID PO Last administered on 01/19/17 08:35; Start 01/16/17 at 21:00; Stop 01/19/17 at 09:52; Status DC Folic Acid (Folic Acid) 1 mg DAILY PO Last administered on 01/29/17 09:26; Start 01/17/17 at 09:00 Loperamide HCl (Imodium) 2 mg Q2H PRN PO diarrhea; Start 01/16/17 at 16:45 Metoprolol Succinate (Toprol Xl) 100 mg BID PO ; Start 01/16/17 at 21:00; Status UNV Gabapentin (Neurontin) 600 mg TID PO Last administered on 01/29/17 21:00; Start 01/16/17 at 21:00 Pantoprazole Sodium (Protonix) 40 mg DAILYAC PO Last administered on 05:59; Start 01/17/17 at 07:30 Insulin Aspart (NovoLOG) 0-9 UNITS TIDWMEALS SQ Last administered on 01/22/17 17:00; Start 01/16/17 at 17:00 Dextrose (Dextrose 50%-Water Syringe) 12.5 gm PRN Q15MIN PRN IV SEE COMMENTS; Start 01/16/17 at 16:45 Dexamethasone Sodium Phosphate (Decadron) 10 mg 1X ONCE IV Last administered on 01/16/17 17:05; Start 01/16/17 at 16:45; Stop 01/16/17 at 16:46; Status DC Dexamethasone Sodium Phosphate (Decadron) 4 mg Q6HRS IV Last administered on 05:58; Start 01/17/17 at 00:00; Stop 01/18/17 at 15:31; Status DC Morphine Sulfate 2 mg PRN Q2HR PRN IV PAIN Last administered on 01/24/17 19:52 ; Start 01/16/17 at 16:45; Stop 01/24/17 at 22:39; Status DC Oxycodone/ Acetaminophen (Percocet 10/325) 1 tab PRN Q4HRS PRN PO SEVERE PAIN Last administered on 01/29/17 14:54; Start 01/16/17 at 16:45 Heparin Sodium (Porcine) (Heparin Sq) 5,000 unit Q8HRS SQ Last administered on 01/23/17 06:00; Start 01/16/17 at 22:00; Stop 01/23/17 at 13:16; Status DC Diazepam (Valium) 5 mg PRN Q6HRS PRN IV SEIZURES; Start 01/16/17 at 18:30; Status Cancel Diazepam (Valium) 5 mg PRN Q6HRS PRN PO TREMORS Last administered on 14:04; Start 01/16/17 at 18:45 Fentanyl Citrate (Fentanyl 2ml Vial) 100 mcg STK-MED ONCE .ROUTE ; Start at 10:08; Stop 01/17/17 at 10:09; Status DC Midazolam HCl (Versed) 2 mg STK-MED ONCE .ROUTE ; Start 01/17/17 at 10:08; Stop 01/17/17 at 10:09; Status DC Lidocaine/Sodium Bicarbonate (Buffered Lidocaine 1%) 20 ml 1X ONCE IJ Last administered on 01/17/17 10:51; Start 01/17/17 at 10:15; Stop 01/17/17 at 10:16 ; Status DC Midazolam HCl (Versed) 2 mg 1X ONCE IV Last administered on 01/17/17 10:52; Start 01/17/17 at 10:15; Stop 01/17/17 at 10:16; Status DC Fentanyl Citrate (Fentanyl 2ml Vial) 100 mcg 1X ONCE IV Last administered on 01/17/17 10:52; Start 01/17/17 at 10:15; Stop 01/17/17 at 10:16; Status DC Lidocaine/Sodium Bicarbonate (Buffered Lidocaine 1%) 20 ml STK-MED ONCE IJ ; Start 01/17/17 at 10:14; Stop 01/17/17 at 10:15; Status DC Piperacillin Sod/ Tazobactam Sod (Zosyn) 3.375 gm Q6HRS IVP Last administered on 01/18/17 06:00; Start 01/17/17 at 18:00; Stop 01/18/17 at 10:42; Status DC Dexamethasone Sodium Phosphate (Decadron) 4 mg Q12HR IV Last administered on 09:27; Start 01/18/17 at 21:00; Stop 01/29/17 at 13:47; Status DC Aspirin (Ecotrin) 81 mg DAILYWBKFT PO Last administered on 01/29/17 09:29; Start 01/20/17 at 08:00 Amlodipine Besylate (Norvasc) 10 mg DAILY PO Last administered on 01/24/17 09: 35; Start 01/19/17 at 10:00; Stop 01/25/17 at 12:44; Status DC Oxycodone HCl (OxyCONTIN) 30 mg Q12HR PO Last administered on 01/29/17 21:43 ; Start 01/19/17 at 11:45 Senna/Docusate Sodium (Senna Plus) 2 tab DAILY PO Last administered on 09:28; Start 01/19/17 at 12:00 Gadobutrol (Gadavist) 10 mmol 1X ONCE IV ; Start 01/19/17 at 15:45; Stop at 15:46; Status DC Sodium Chloride 1,000 ml @ 75 mls/hr [id number] IV Last administered on 02:12; Start 01/20/17 at 11:15; Stop 01/21/17 at 18:06; Status DC Polyethylene Glycol (miraLAX PACKET) 17 gm DAILY PO Last administered on 09:28; Start 01/20/17 at 15:00 Metoprolol Succinate (Toprol Xl) 50 mg DAILY PO Last administered on 08:25; Start 01/21/17 at 09:00; Stop 01/26/17 at 09:48; Status DC Bacitracin 30304 unit/Sodium Chloride 1,000 ml @ 1,000 mls/hr 1X PERIOP ONCE IRR Last administered on 01/24/17 12:59; Start 01/24/17 at 06:00; Stop at 06:59; Status DC Ondansetron HCl (Zofran) 4 mg PRN Q6HRS PRN IV NAUSEA/VOMITING; Start 01/24/17 at 07:00; Stop 01/25/17 at 06:59; Status DC Fentanyl Citrate (Fentanyl 2ml Vial) 25 mcg PRN Q5MIN PRN IV MILD PAIN; Start 01/24/17 at 07:00; Stop 01/24/17 at 22:48; Status DC Fentanyl Citrate (Fentanyl 2ml Vial) 50 mcg PRN Q5MIN PRN IV MODERATE PAIN Last administered on 01/24/17 19:01; Start 01/24/17 at 07:00; Stop 01/24/17 at 22:48; Status DC Morphine Sulfate 1 mg PRN Q10MIN PRN IV SEVERE PAIN; Start 01/24/17 at 07:00; Stop 01/24/17 at 22:48; Status DC Ringer's Solution 1,000 ml @ 30 mls/hr Q24H IV Last administered on 01/24/17 11:40; Start 01/24/17 at 07:00; Stop 01/24/17 at 18:59; Status DC Lidocaine HCl (Xylocaine-Mpf 1% Vial) 2 ml PRN 1X PRN ID IV START; Start at 07:00; Stop 01/25/17 at 06:59; Status DC Hydromorphone HCl (Dilaudid) 0.5 mg PRN Q10MIN PRN IV SEV PAIN, Second choice; Start 01/24/17 at 07:00; Stop 01/24/17 at 22:48; Status DC Prochlorperazine Edisylate (Compazine) 5 mg PACU PRN PRN IV NAUSEA, MRX1; Start 01/24/17 at 07:00; Stop 01/24/17 at 22:48; Status DC Cefazolin Sodium/ Dextrose 50 ml @ 100 mls/hr 1X PREOP PRN IV PRE-OP Last administered on 01/24/17 12:25; Start 01/23/17 at 13:15; Stop 01/24/17 at 18:00 ; Status DC Gelatin (Gelfoam Size 100) 1 each STK-MED ONCE .ROUTE Last administered on 12:59; Start 01/24/17 at 07:30; Stop 01/24/17 at 07:31; Status DC Bupivacaine HCl/ Epinephrine Bitart (Sensorcain-Mpf Epi 0.5%-1:519853) 30 ml STK -MED ONCE .ROUTE Last administered on 01/24/17 12:59; Start 01/24/17 at 07:31 ; Stop 01/24/17 at 07:32; Status DC Ketorolac Tromethamine (Toradol For Or Only) 60 mg STK-MED ONCE .ROUTE Last administered on 01/24/17 12:59; Start 01/24/17 at 07:31; Stop 01/24/17 at 07:32 ; Status DC Thrombin 20,000 unit STK-MED ONCE TP Last administered on 01/24/17 12:59; Start 01/24/17 at 07:31; Stop 01/24/17 at 07:32; Status DC Midazolam HCl (Versed) 2 mg STK-MED ONCE .ROUTE ; Start 01/24/17 at 11:05; Stop 01/24/17 at 11:06; Status DC Fentanyl Citrate (Fentanyl 5ml Vial) 250 mcg STK-MED ONCE .ROUTE ; Start at 11:05; Stop 01/24/17 at 11:06; Status DC Rocuronium [place] (Zemuron) 50 mg STK-MED ONCE .ROUTE ; Start 01/24/17 at 11:05 ; Stop 01/24/17 at 11:06; Status DC Remifentanil HCl (Ultiva) 2 mg STK-MED ONCE IV ; Start 01/24/17 at 11:05; Stop 01/24/17 at 11:06; Status DC Propofol 50 ml @ As Directed STK-MED ONCE IV ; Start 01/24/17 at 11:09; Stop at 11:10; Status DC Multi-Ingred Cream/Lotion/Oil/ Oint (Artificial Tears Eye Oint) 7 jose a STK-MED ONCE .ROUTE ; Start 01/24/17 at 11:09; Stop 01/24/17 at 11:10; Status DC Propofol 0 ml @ As Directed STK-MED ONCE IV ; Start 01/24/17 at 11:10; Stop 01/24/17 at 11:11; Status DC Lidocaine HCl (Lidocaine Pf 2% Vial) 5 ml STK-MED ONCE .ROUTE ; Start 01/24/17 at 11:10; Stop 01/24/17 at 11:11; Status DC Dexamethasone Sodium Phosphate (Decadron) 20 mg STK-MED ONCE .ROUTE ; Start 01/24/17 at 11:10; Stop 01/24/17 at 11:11; Status DC Ondansetron HCl (Zofran) 4 mg STK-MED ONCE .ROUTE ; Start 01/24/17 at 11:10; Stop 01/24/17 at 11:11; Status DC Desflurane (Suprane) 90 ml STK-MED ONCE IH ; Start 01/24/17 at 11:10; Stop 01/24 at 11:11; Status DC Sodium Chloride (Sodium Chloride) 50 ml STK-MED ONCE IJ ; Start 01/24/17 at 11: 11; Stop 01/24/17 at 11:12; Status DC Phenylephrine HCl 1 mg STK-MED ONCE IV ; Start 01/24/17 at 12:02; Stop 01/24/17 at 12:03; Status DC Glycopyrrolate (Robinul) 1 mg STK-MED ONCE .ROUTE ; Start 01/24/17 at 12:28; Stop 01/24/17 at 12:29; Status DC Neostigmine Methylsulfate 5 mg STK-MED ONCE .ROUTE ; Start 01/24/17 at 12:28; Stop 01/24/17 at 12:29; Status DC Ephedrine Sulfate (Akovaz) 50 mg STK-MED ONCE .ROUTE ; Start 01/24/17 at 14:05; Stop 01/24/17 at 14:06; Status DC Albumin Human 500 ml @ As Directed STK-MED ONCE IV ; Start 01/24/17 at 14:07; Stop 01/24/17 at 14:08; Status DC Remifentanil HCl (Ultiva) 2 mg STK-MED ONCE IV ; Start 01/24/17 at 14:55; Stop 01/24/17 at 14:56; Status DC Propofol 50 ml @ As Directed STK-MED ONCE IV ; Start 01/24/17 at 14:57; Stop at 14:58; Status DC Propofol 20 ml @ As Directed STK-MED ONCE IV ; Start 01/24/17 at 14:57; Stop at 14:58; Status DC Propofol 20 ml @ As Directed STK-MED ONCE IV ; Start 01/24/17 at 15:09; Stop at 15:10; Status DC Propofol 50 ml @ As Directed STK-MED ONCE IV ; Start 01/24/17 at 15:50; Stop at 15:51; Status DC Cefazolin Sodium/ Dextrose 50 ml @ As Directed STK-MED ONCE IV ; Start 01/24/17 at 16:20; Stop 01/24/17 at 16:21; Status DC Phenylephrine HCl 1 mg STK-MED ONCE IV ; Start 01/24/17 at 16:54; Stop 01/24/17 at 16:55; Status DC Propofol 50 ml @ As Directed STK-MED ONCE IV ; Start 01/24/17 at 17:10; Stop at 17:11; Status DC Remifentanil HCl (Ultiva) 2 mg STK-MED ONCE IV ; Start 01/24/17 at 17:10; Stop 01/24/17 at 17:11; Status DC Propofol 50 ml @ As Directed STK-MED ONCE IV ; Start 01/24/17 at 17:30; Stop at 17:31; Status DC Hydromorphone HCl (Dilaudid) 2 mg STK-MED ONCE .ROUTE ; Start 01/24/17 at 18:07 ; Stop 01/24/17 at 18:08; Status DC Fentanyl Citrate (Fentanyl 2ml Vial) 100 mcg STK-MED ONCE .ROUTE ; Start at 18:07; Stop 01/24/17 at 18:08; Status DC Morphine Sulfate 2 mg PRN Q2HR PRN IV SEVERE PAIN Last administered on t 07:21; Start 01/24/17 at 22:45 Amlodipine Besylate (Norvasc) 5 mg DAILY PO Last administered on 01/29/17 09: 26; Start 01/26/17 at 09:00 Sodium Chloride 1,000 ml @ 75 mls/hr 1X ONCE IV Last administered on 13:25; Start 01/25/17 at 12:45; Stop 01/26/17 at 02:04; Status DC Metoprolol Succinate (Toprol Xl) 25 mg BID PO Last administered on 01/29/17 21:41; Start 01/26/17 at 21:00 Heparin Sodium (Porcine) (Heparin Sq) 5,000 unit Q8HRS SQ Last administered on 01/30/17 05:51; Start 01/27/17 at 14:00 Acetaminophen/ Hydrocodone Bitart (Lortab 10/325) 1 tab PRN Q6HRS PRN PO MODERATE PAIN Last administered on 01/30/17 05:47; Start 01/29/17 at 10:30 Dexamethasone (Decadron) 4 mg QID PO Last administered on 01/29/17 21:42; Start 01/29/17 at 17:00 Active Scripts Active Reported Imodium A-D (Loperamide HCl) 2 Mg Capsule 2 Mg PO Aspirin 325 Mg Tablet 1 Tab PO DAILY Vitamin D3 (Cholecalciferol (Vitamin D3)) 1,000 Unit Tablet 2,000 Unit PO Vicodin Es 7.5-300 Mg Tablet (Hydrocodone Bit/Acetaminophen) 1 Each Tablet 1 Each PO Q6H PRN Humira (Adalimumab) 40 Mg/0.8 Ml Pen.ij.kit 1 Syr SQ Q2WKS Folbic Rf Tablet (B12/Levomefolate Calcium/B-6) 1 Each Tablet 1 Each PO Omeprazole 40 Mg Capsule.dr 1 Cap PO DAILY Cholestyramine Packet (Cholestyramine (With Sugar)) 4 Gm Powd.pack 4 Gm PO Gabapentin 600 Mg Tablet 600 Mg PO TID Folic Acid 1 Mg Tablet 1 Tab PO DAILY Clonidine Hcl 0.1 Mg Tablet 0.1 Mg PO BID Metformin Hcl 1,000 Mg Tablet 1,000 Mg PO BIDWMEALS Atorvastatin Calcium 40 Mg Tablet 1 Tab PO DAILY Metoprolol Succinate ( Xl ) (Metoprolol Succinate) 100 Mg Tab.er.24h 100 Mg PO BID Vitals/I & O Vital Sign - Last 24 Hours 01/29/17 01/29/17 01/29/17 01/29/17 11:00 12:34 13:23 13:23 Temp 98.5 98.5 Pulse 58 Resp 18 12 B/P (MAP) 123/51 (75) Pulse Ox 99 95 95 95 O2 Delivery Room Air Room Air 01/29/17 01/29/17 01/29/17 01/29/17 14:54 15:00 15:54 19:15 Temp 97.6 97.6 97.6 97.6 Pulse 67 58 Resp 12 18 12 16 B/P (MAP) 134/61 (85) 116/53 (74) Pulse Ox 94 98 93 95 O2 Delivery Room Air Room Air Room Air Room Air 01/29/17 01/29/17 01/29/17 01/29/17 20:20 21:41 21:43 21:45 Pulse 58 Resp 18 18 B/P (MAP) 116/53 O2 Delivery Room Air Room Air Room Air 01/29/17 01/29/17 01/30/17 01/30/17 22:45 23:21 01:43 02:42 Temp 97.5 98.0 97.5 98.0 Pulse 52 57 Resp 18 18 18 16 B/P (MAP) 130/66 (87) 138/68 (91) Pulse Ox 95 97 O2 Delivery BiPAP/CPAP BiPAP/CPAP Room Air Room Air 01/30/17 01/30/17 05:47 07:00 Temp 97.5 97.5 Pulse 56 Resp 18 18 B/P (MAP) 129/61 (83) Pulse Ox 96 O2 Delivery Room Air Room Air Intake and Output 01/29/17 01/29/17 01/30/17 15:00 23:00 07:00 Intake Total 600 ml 100 ml Output Total 1300 ml 800 ml Balance -700 ml -700 ml FARHAT MOLINA MD Jan 30, 2017 09:33
[2017-01-30] MEDS: PANTOPRAZOLE 40 MG TABLET.DR. PO SCH (09:49)
[2017-01-30] MEDS: amLODIPine BESYLATE 5 MG TABLET PO SCH (09:50)
[2017-01-30] MEDS: DEXAMETHASONE 4 MG TABLET PO SCH (09:50)
[2017-01-30] MEDS: CHOLECALCIFEROL (VITAMIN D3) 1,000 UNIT TABLET PO SCH (09:50)
[2017-01-30] MEDS: FOLIC ACID 1 MG TABLET. PO SCH (09:51)
[2017-01-30] MEDS: METOPROLOL SUCC 24HR ER 25 MG TAB.ER.24H. PO SCH (09:51)
[2017-01-30] MEDS: ASPIRIN ENTERIC COATED 81 MG TABLET.DR. PO SCH (09:51)
[2017-01-30] MEDS: oxyCODONE ER 15 MG TAB.ER.12H PO SCH (09:52)
[2017-01-30] MEDS: LACTOBACILLUS RHAMNOSUS GG 1 CAPSULE. PO SCH (09:52)
[2017-01-30] MEDS: GABAPENTIN 300 MG CAPSULE. PO SCH ×2 (09:53→12:18)
[2017-01-30] MEDS ORDERED: METO-239 PO (10:26)
[2017-01-30] MEDS ORDERED: OXYC15TA60 PO (10:26)
[2017-01-30] MEDS ORDERED: AMLO5TAB2 PO (10:26)
[2017-01-30] MEDS ORDERED: SENN-22 PO (10:26)
[2017-01-30] MEDS ORDERED: ASPI-612 PO (10:26)
[2017-01-30] MEDS: diazePAM 5 MG TABLET PO PRN (10:26)
[2017-01-30] MEDS ORDERED: HYDR-2766 PO (10:26)
[2017-01-30 10:46] VITALS: BP 124/60
[2017-01-30] MEDS: oxyCODONE/APAP 10/325 1 TAB TABLET PO PRN (12:18)
--- NOTE | 2017-01-30 14:40 | PDOC3 ---
Discharge Summary [facility] Date of Admission: Jan 15, 2017 Discharge Date: Jan 30, 2017 Admitting Diagnosis L3 spinal mass: highly suspicious for malignancy or L3 Chance fracture?. s/p l1-4 fusion laminnectomy L4 for fx, bx L3, remove L4 hematoma 01/24, path neg for mag x2 times Back pain Syncope, not clear etiology left renal small cyst ANDREINA on CKD, vasomotor DM2 Anemia Dyspnea PAF CAD: hx mult stents Crohn's Alcoholism Azotemia h/o crhons dz Problems: Final Diagnosis CONSULTS dr. Brisa FIELDS Brief Hospital Course Mr. Lee is a 71 old M, came for syncope. and was found a L3 spinal mass , got bx neg for malignancy. Then underwent L1-4 fusion laminnectomy L4 for fx, bx L3, remove L4 hematoma , path neg for malignancy. pt cont having back pain, back brace helped. dc to rehab with oxycontin and lortab prn. dc time 35min. back wound heals ok, with ricky on, fu with neurosx in2 weeks. General: Alert, Oriented X3 Heart: Normal S1, Normal S2 Lungs: Clear Abdomen: Normal bowel sounds, Soft, No tenderness Extremities: No clubbing, No edema Skin: No rashes, No breakdown, Other (Dressing changed, ricky intact, drain d /c'd) Patient History: FH: skin cancer FHx: heart disease Problems: Disposition REHAB CONDITION AT DISCHARGE: Improved Diet regular Scheduled Adalimumab (Humira), 1 SYR SQ Q2WKS, (Reported) Amlodipine Besylate (Amlodipine Besylate), 5 MG PO DAILY Aspirin (Aspirin), 1 TAB PO DAILY, (Reported) Aspirin (Aspirin Ec), 81 MG PO DAILYWBKFT Atorvastatin Calcium (Atorvastatin Calcium), 1 TAB PO DAILY, (Reported) Clonidine Hcl (Clonidine Hcl), 0.1 MG PO BID, (Reported) Folic Acid (Folic Acid), 1 TAB PO DAILY, (Reported) Gabapentin (Gabapentin), 600 MG PO TID, (Reported) Metformin Hcl (Metformin Hcl), 1,000 MG PO BIDWMEALS, (Reported) Metoprolol Succinate (Metoprolol Succinate ( Xl )), 25 MG PO BID Omeprazole (Omeprazole), 1 CAP PO DAILY, (Reported) Oxycodone Hcl (Oxycontin), 30 MG PO Q12HR Sennosides/Docusate Sodium (Senna-Time S Tablet), 2 TAB PO DAILY Scheduled PRN Hydrocodone Bit/Acetaminophen (Hydrocodone-Apap 10-325 ), 1 TAB PO PRN Q6HRS PRN for MODERATE PAIN Miscellaneous Medications B12/Levomefolate Calcium/B-6 (Folbic Rf Tablet), 1 EACH PO, (Reported) Cholecalciferol (Vitamin D3) (Vitamin D3), 2,000 UNIT PO, (Reported) Cholestyramine (With Sugar) (Cholestyramine Packet), 4 GM PO, (Reported) Discontinued Medications Hydrocodone Bit/Acetaminophen (Vicodin Es 7.5-300 Mg Tablet), 1 EACH PO Q6H PRN for PAIN, (Reported) Loperamide HCl (Imodium A-D), 2 MG PO, (Reported) Metoprolol Succinate (Metoprolol Succinate ( Xl )), 100 MG PO BID, (Reported) Follow Up fu with neuro sx in 2 weeks THIAGO CALDWELL MD Jan 30, 2017 14:40
--- NOTE | 2017-01-30 16:31 | PDOC ---
PROGRESS NOTES Subjective Subjective Pt seen at 8.30 am 01/30/17 HPI - Bone lesion due to fracture. He also has multiple other lesions in the spine. Thought to be benign. Now s/p L1 to L4 fusion laminectomy L4, Bx L3 and removal of L4 hematoma on10/2016. Path reveals no malignancy ROS - has back pain Objective Objective Vital Signs Date Time Temp Pulse Resp B/P (MAP) Pulse Ox O2 Delivery O2 Flow Rate FiO2 01/30/17 13:52 12 95 Room Air 01/30/17 10:46 98.0 68 124/60 (81) 98.0 01/28/17 22:15 2.0 Intake and Output 01/30/17 07:00 Intake Total 700 ml Output Total 2100 ml Balance -1400 ml Intake Oral 700 ml Output Urine Total 2100 ml # Bowel Movements 2 Physical Exam Heart: Normal S1, Normal S2 General: Alert, Oriented X3, No acute distress Lungs: Clear to auscultation Neuro: Normal speech Psych/Mental Status: Mental status NL Assessment Assessment Problems Medical Problems: (1) Elevated d-dimer Status: Acute (2) Elevated serum creatinine Status: Acute (3) Hypoxia Status: Acute (4) Lactic acidosis Status: Acute (5) 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 Bone lesion due to fracture. He also has multiple other lesions in the spine. Thought to be benign. Now s/p L1 to L4 fusion laminectomy L4, Bx L3 and removal of L4 hematoma on10/2016. Path reveals no malignancy Bone scan does not reveal uptake and hence multiple myeloma is suspected. Myeloma labs normal. Bone survey 01/18/17: Sclerotic foci in the cervical spine. These are likely benign in view of the lack of abnormal uptake on the current bone scan. Distracted Chance type fracture of the L3 vertebral body, better demonstrated on previous CT images. Since the CT chest, abdomen and pelvis did not reveal a clear primary focus, he had biopsy of the L3 vertebral lesion - done 01/17/17, non-diagnostic. I d/w IR, he feels that this may just be an acute fracture. MRI reviewed. There is autofusion of L1-L2 and L3-L5 with a distracted fracture extending through the anterior, middle and posterior columns of the L3 vertebrae as well as the posterior elements at the L3 vertebral level compatible with a Chance fracture. There is disruption of the anterior and posterior longitudinal ligaments as well as the posterior ligamentous complex. There is an epidural hematoma resulting in severe spinal canal stenosis and likely cauda equina syndrome. s/p Surgery 01/24/17. Hematoma noted. PSA normal. 2. Left renal lesion, u/s ultrasound of the kidney does not reveal malignancy. 3. Anemia. This is likely secondary to malignancy. I will continue to monitor. Hb 7.8 Comment Review of Relevant I have reviewed the following items bernadine (where applicable) has been applied. Labs Laboratory Tests Test 01/28/17 17:01 01/28/17 21:10 01/29/17 03:52 01/29/17 07:39 Glucose (Fingerstick) 121 mg/dL (70-99) 142 mg/dL (70-99) 117 mg/dL (70-99) White Blood Count 12.5 x10^3/uL (4.0-11.0) Red Blood Count 2.47 x10^6/uL (4.30-5.70) Hemoglobin 7.7 g/dL (13.0-17.5) Hematocrit 23.7 % (39.0-53.0) Mean Corpuscular Volume 96 fL (79-100) Mean Corpuscular Hemoglobin 31 pg (25-35) Mean Corpuscular Hemoglobin Concent 33 g/dL (31-37) Red Cell Distribution Width 17.3 % (11.5-14.5) Platelet Count 182 x10^3/uL (140-400) Neutrophils (%) (Auto) 89 % (31-73) Lymphocytes (%) (Auto) 5 % (24-48) Monocytes (%) (Auto) 6 % (0-9) Eosinophils (%) (Auto) 0 % (0-3) Basophils (%) (Auto) 0 % (0-3) Neutrophils # (Auto) 11.1 x10^3uL (1.8-7.7) Lymphocytes # (Auto) 0.6 x10^3/uL (1.0-4.8) Monocytes # (Auto) 0.8 x10^3/uL (0.0-1.1) Eosinophils # (Auto) 0.0 x10^3/uL (0.0-0.7) Basophils # (Auto) 0.0 x10^3/uL (0.0-0.2) Sodium Level 137 mmol/L (136-145) Potassium Level 4.6 mmol/L (3.5-5.1) Chloride Level 103 mmol/L (98-107) Carbon Dioxide Level 30 mmol/L (21-32) Anion Gap 4 (6-14) Blood Urea Nitrogen 38 mg/dL (8-26) Creatinine 1.3 mg/dL (0.7-1.3) Estimated GFR (Cockcroft-Gault) 54.4 Glucose Level 129 mg/dL (70-99) Calcium Level 8.4 mg/dL (8.5-10.1) Test 01/29/17 12:25 01/29/17 16:56 01/29/17 20:37 01/30/17 03:20 Glucose (Fingerstick) 111 mg/dL (70-99) 124 mg/dL (70-99) 159 mg/dL (70-99) White Blood Count 11.3 x10^3/uL (4.0-11.0) Red Blood Count 2.49 x10^6/uL (4.30-5.70) Hemoglobin 7.8 g/dL (13.0-17.5) Hematocrit 24.2 % (39.0-53.0) Mean Corpuscular Volume 97 fL (79-100) Mean Corpuscular Hemoglobin 31 pg (25-35) Mean Corpuscular Hemoglobin Concent 32 g/dL (31-37) Red Cell Distribution Width 17.9 % (11.5-14.5) Platelet Count 193 x10^3/uL (140-400) Neutrophils (%) (Auto) 91 % (31-73) Lymphocytes (%) (Auto) 5 % (24-48) Monocytes (%) (Auto) 4 % (0-9) Eosinophils (%) (Auto) 0 % (0-3) Basophils (%) (Auto) 0 % (0-3) Neutrophils # (Auto) 10.3 x10^3uL (1.8-7.7) Lymphocytes # (Auto) 0.5 x10^3/uL (1.0-4.8) Monocytes # (Auto) 0.5 x10^3/uL (0.0-1.1) Eosinophils # (Auto) 0.0 x10^3/uL (0.0-0.7) Basophils # (Auto) 0.0 x10^3/uL (0.0-0.2) Test 01/30/17 07:08 01/30/17 11:14 Glucose (Fingerstick) 136 mg/dL (70-99) 115 mg/dL (70-99) Laboratory Tests Test 01/29/17 16:56 01/29/17 20:37 01/30/17 03:20 01/30/17 07:08 Glucose (Fingerstick) 124 mg/dL (70-99) 159 mg/dL (70-99) 136 mg/dL (70-99) White Blood Count 11.3 x10^3/uL (4.0-11.0) Red Blood Count 2.49 x10^6/uL (4.30-5.70) Hemoglobin 7.8 g/dL (13.0-17.5) Hematocrit 24.2 % (39.0-53.0) Mean Corpuscular Volume 97 fL (79-100) Mean Corpuscular Hemoglobin 31 pg (25-35) Mean Corpuscular Hemoglobin Concent 32 g/dL (31-37) Red Cell Distribution Width 17.9 % (11.5-14.5) Platelet Count 193 x10^3/uL (140-400) Neutrophils (%) (Auto) 91 % (31-73) Lymphocytes (%) (Auto) 5 % (24-48) Monocytes (%) (Auto) 4 % (0-9) Eosinophils (%) (Auto) 0 % (0-3) Basophils (%) (Auto) 0 % (0-3) Neutrophils # (Auto) 10.3 x10^3uL (1.8-7.7) Lymphocytes # (Auto) 0.5 x10^3/uL (1.0-4.8) Monocytes # (Auto) 0.5 x10^3/uL (0.0-1.1) Eosinophils # (Auto) 0.0 x10^3/uL (0.0-0.7) Basophils # (Auto) 0.0 x10^3/uL (0.0-0.2) Test 01/30/17 11:14 Glucose (Fingerstick) 115 mg/dL (70-99) Microbiology 01/15/17 Blood Culture - Final, Complete NO GROWTH AFTER 5 DAYS Medications Current Medications Fentanyl Citrate (Fentanyl 2ml Vial) 50 mcg 1X ONCE IV Last administered on 21:52; Start 01/15/17 at 22:00; Stop 01/15/17 at 22:01; Status DC Sodium Chloride 1,000 ml @ 150 mls/hr 1X ONCE IV Last administered on 22:31; Start 01/15/17 at 22:00; Stop 01/16/17 at 04:39; Status DC Piperacillin Sod/ Tazobactam Sod 3.375 gm/Dextrose 50 ml @ 100 mls/hr 1X ONCE IV Last administered on 01/15/17 23:22; Start 01/15/17 at 23:30; Stop 01/15 at 23:59; Status DC Heparin Sodium (Porcine) (Heparin Sodium) 9,450 unit 1X ONCE IV Last administered on 01/15/17 23:30; Start 01/15/17 at 23:30; Stop 01/16/17 at 16 :41; Status DC Heparin Sodium/ Dextrose 500 ml @ 0 mls/hr CONT PRN IV SEE I/O RECORD Last administered on 01/16/17 16:26; Start 01/15/17 at 23:15; Stop 01/16/17 at 16 :41; Status DC Heparin Sodium (Porcine) (Heparin Sodium) 3,550 unit PRN Q6HRS PRN IV FOR UFH LEVEL LESS THAN 0.2; Start 01/15/17 at 23:15; Stop 01/16/17 at 16:41; Status DC Heparin Sodium (Porcine) (Heparin Sodium) 1,750 unit PRN Q6HRS PRN IV FOR UFH LEVEL 0.2 - 0.29; Start 01/15/17 at 23:15; Stop 01/16/17 at 16:41; Status DC Warfarin Sodium (Coumadin Per Pharmacy) 1 each PRN DAILY PRN MC PER PROTOCOL Last administered on 01/16/17 10:20; Start 01/15/17 at 23:15; Stop 01/16/17 at 16:39; Status DC Info (Anti-Coagulation Monitoring By Pharmacy) 1 each PRN DAILY PRN MC SEE COMMENTS Last administered on 01/16/17 10:17; Start 01/15/17 at 23:30; Stop 01/18/17 at 14:31; Status DC Ondansetron HCl (Zofran) 4 mg PRN Q8HRS PRN IV NAUSEA/VOMITING; Start at 23:15; Stop 01/16/17 at 23:14; Status DC Fentanyl Citrate (Fentanyl 2ml Vial) 50 mcg PRN Q2HR PRN IV SEVERE PAIN Last administered on 01/16/17 01:33; Start 01/15/17 at 23:15; Stop 01/16/17 at 02 :47; Status DC Piperacillin Sod/ Tazobactam Sod (Zosyn Per Pharmacy) 1 each PRN DAILY PRN MC SEE COMMENTS; Start 01/15/17 at 23:15; Stop 01/16/17 at 02:54; Status DC Sodium Chloride 1,000 ml @ 150 mls/hr 1X ONCE IV Last administered on 01:34; Start 01/15/17 at 23:45; Stop 01/16/17 at 06:24; Status DC Albuterol Sulfate (Ventolin Neb Soln) 2.5 mg PRN Q3HRS PRN NEB WHEEZING Last administered on 01/16/17 11:24; Start 01/15/17 at 23:30; Stop 01/30/17 at 15 :32; Status DC Morphine Sulfate 2 mg 1X ONCE IV Last administered on 01/15/17 23:47; Start 01/16/17 at 00:00; Stop 01/16/17 at 00:01; Status DC Fentanyl Citrate (Fentanyl 2ml Vial) 75 mcg PRN Q2HR PRN IV SEVERE PAIN Last administered on 01/16/17 13:56; Start 01/16/17 at 02:45; Stop 01/16/17 at 16 :41; Status DC Piperacillin Sod/ Tazobactam Sod (Zosyn Per Pharmacy) 1 each PRN DAILY PRN MC SEE COMMENTS; Start 01/16/17 at 02:45; Stop 01/17/17 at 16:01; Status DC Piperacillin Sod/ Tazobactam Sod (Zosyn) 2.25 gm Q6HRS IVP Last administered on 01/17/17 12:01; Start 01/16/17 at 06:00; Stop 01/17/17 at 16:01; Status DC Info (Anti-Coagulation Monitoring By Pharmacy) 1 each PRN DAILY PRN MC SEE COMMENTS; Start 01/16/17 at 09:45; Status Cancel Warfarin Sodium (Coumadin) 5 mg 1X WARF ONCE PO ; Start 01/16/17 at 16:00; Stop 01/16/17 at 16:39; Status DC Lactobacillus Rhamnosus (Culturelle) 1 cap BID PO Last administered on 09:52; Start 01/16/17 at 21:00; Stop 01/30/17 at 15:32; Status DC Magnesium Sulfate/ Dextrose 50 ml @ 25 mls/hr 1X ONCE IV Last administered on 01/16/17 12:45; Start 01/16/17 at 11:30; Stop 01/16/17 at 13:29; Status DC Linezolid 300 ml @ 300 mls/hr Q12HR IV Last administered on 01/16/17 20:58; Start 01/16/17 at 12:00; Stop 01/17/17 at 08:14; Status DC Iohexol (Omnipaque 240 Mg/ml) 30 ml 1X ONCE PO ; Start 01/16/17 at 12:00; Stop 01/16/17 at 12:01; Status DC Info (Do NOT chart on this entry -- for MONITORING) 1 each PRN DAILY PRN MC SEE COMMENTS; Start 01/16/17 at 12:00; Stop 01/18/17 at 11:59; Status DC Magnesium Sulfate/ Dextrose 50 ml @ 25 mls/hr PRN DAILY PRN IV for Mag < 1.7 on am labs; Start 01/16/17 at 13:15; Stop 01/30/17 at 15:32; Status DC Metoprolol Succinate (Toprol Xl) 50 mg BID PO Last administered on 01/21/17 08 :11; Start 01/16/17 at 21:00; Stop 01/21/17 at 08:33; Status DC Sodium Chloride 1,000 ml @ 100 mls/hr Q10H IV Last administered on 01/18/17 05:45; Start 01/16/17 at 13:45; Stop 01/18/17 at 11:44; Status DC Aspirin (Charmaine Aspirin) 325 mg DAILYWBKFT PO Last administered on 01/19/17 08: 35; Start 01/17/17 at 08:00; Stop 01/19/17 at 09:49; Status DC Atorvastatin Calcium (Lipitor) 40 mg QHS PO Last administered on 01/29/17 21: 41; Start 01/16/17 at 21:00; Stop 01/30/17 at 15:32; Status DC Vitamin D (Vitamin D3) 2,000 unit DAILY PO Last administered on 01/30/17 09: 50; Start 01/17/17 at 09:00; Stop 01/30/17 at 15:32; Status DC Clonidine HCl (Catapres) 0.1 mg BID PO Last administered on 01/19/17 08:35; Start 01/16/17 at 21:00; Stop 01/19/17 at 09:52; Status DC Folic Acid (Folic Acid) 1 mg DAILY PO Last administered on 01/30/17 09:51; Start 01/17/17 at 09:00; Stop 01/30/17 at 15:32; Status DC Loperamide HCl (Imodium) 2 mg Q2H PRN PO diarrhea; Start 01/16/17 at 16:45; Stop 01/30/17 at 15:32; Status DC Metoprolol Succinate (Toprol Xl) 100 mg BID PO ; Start 01/16/17 at 21:00; Status UNV Gabapentin (Neurontin) 600 mg TID PO Last administered on 01/30/17 12:18; Start 01/16/17 at 21:00; Stop 01/30/17 at 15:32; Status DC Pantoprazole Sodium (Protonix) 40 mg DAILYAC PO Last administered on 09:49; Start 01/17/17 at 07:30; Stop 01/30/17 at 15:32; Status DC Insulin Aspart (NovoLOG) 0-9 UNITS TIDWMEALS SQ Last administered on 01/22/17 17:00; Start 01/16/17 at 17:00; Stop 01/30/17 at 15:32; Status DC Dextrose (Dextrose 50%-Water Syringe) 12.5 gm PRN Q15MIN PRN IV SEE COMMENTS; Start 01/16/17 at 16:45; Stop 01/30/17 at 15:32; Status DC Dexamethasone Sodium Phosphate (Decadron) 10 mg 1X ONCE IV Last administered on 01/16/17 17:05; Start 01/16/17 at 16:45; Stop 01/16/17 at 16:46; Status DC Dexamethasone Sodium Phosphate (Decadron) 4 mg Q6HRS IV Last administered on 05:58; Start 01/17/17 at 00:00; Stop 01/18/17 at 15:31; Status DC Morphine Sulfate 2 mg PRN Q2HR PRN IV PAIN Last administered on 01/24/17 19:52 ; Start 01/16/17 at 16:45; Stop 01/24/17 at 22:39; Status DC Oxycodone/ Acetaminophen (Percocet 10/325) 1 tab PRN Q4HRS PRN PO SEVERE PAIN Last administered on 01/30/17 12:18; Start 01/16/17 at 16:45; Stop 01/30/17 at 15:32; Status DC Heparin Sodium (Porcine) (Heparin Sq) 5,000 unit Q8HRS SQ Last administered on 01/23/17 06:00; Start 01/16/17 at 22:00; Stop 01/23/17 at 13:16; Status DC Diazepam (Valium) 5 mg PRN Q6HRS PRN IV SEIZURES; Start 01/16/17 at 18:30; Status Cancel Diazepam (Valium) 5 mg PRN Q6HRS PRN PO TREMORS Last administered on 10:26; Start 01/16/17 at 18:45; Stop 01/30/17 at 15:32; Status DC Fentanyl Citrate (Fentanyl 2ml Vial) 100 mcg STK-MED ONCE .ROUTE ; Start at 10:08; Stop 01/17/17 at 10:09; Status DC Midazolam HCl (Versed) 2 mg STK-MED ONCE .ROUTE ; Start 01/17/17 at 10:08; Stop 01/17/17 at 10:09; Status DC Lidocaine/Sodium Bicarbonate (Buffered Lidocaine 1%) 20 ml 1X ONCE IJ Last administered on 01/17/17 10:51; Start 01/17/17 at 10:15; Stop 01/17/17 at 10:16 ; Status DC Midazolam HCl (Versed) 2 mg 1X ONCE IV Last administered on 01/17/17 10:52; Start 01/17/17 at 10:15; Stop 01/17/17 at 10:16; Status DC Fentanyl Citrate (Fentanyl 2ml Vial) 100 mcg 1X ONCE IV Last administered on 01/17/17 10:52; Start 01/17/17 at 10:15; Stop 01/17/17 at 10:16; Status DC Lidocaine/Sodium Bicarbonate (Buffered Lidocaine 1%) 20 ml STK-MED ONCE IJ ; Start 01/17/17 at 10:14; Stop 01/17/17 at 10:15; Status DC Piperacillin Sod/ Tazobactam Sod (Zosyn) 3.375 gm Q6HRS IVP Last administered on 01/18/17 06:00; Start 01/17/17 at 18:00; Stop 01/18/17 at 10:42; Status DC Dexamethasone Sodium Phosphate (Decadron) 4 mg Q12HR IV Last administered on 09:27; Start 01/18/17 at 21:00; Stop 01/29/17 at 13:47; Status DC Aspirin (Ecotrin) 81 mg DAILYWBKFT PO Last administered on 01/30/17 09:51; Start 01/20/17 at 08:00; Stop 01/30/17 at 15:32; Status DC Amlodipine Besylate (Norvasc) 10 mg DAILY PO Last administered on 01/24/17 09: 35; Start 01/19/17 at 10:00; Stop 01/25/17 at 12:44; Status DC Oxycodone HCl (OxyCONTIN) 30 mg Q12HR PO Last administered on 01/30/17 09:52 ; Start 01/19/17 at 11:45; Stop 01/30/17 at 15:33; Status DC Senna/Docusate Sodium (Senna Plus) 2 tab DAILY PO Last administered on 09:28; Start 01/19/17 at 12:00; Stop 01/30/17 at 15:33; Status DC Gadobutrol (Gadavist) 10 mmol 1X ONCE IV ; Start 01/19/17 at 15:45; Stop at 15:46; Status DC Sodium Chloride 1,000 ml @ 75 mls/hr [id number] IV Last administered on 02:12; Start 01/20/17 at 11:15; Stop 01/21/17 at 18:06; Status DC Polyethylene Glycol (miraLAX PACKET) 17 gm DAILY PO Last administered on 09:28; Start 01/20/17 at 15:00; Stop 01/30/17 at 15:33; Status DC Metoprolol Succinate (Toprol Xl) 50 mg DAILY PO Last administered on 08:25; Start 01/21/17 at 09:00; Stop 01/26/17 at 09:48; Status DC Bacitracin 40782 unit/Sodium Chloride 1,000 ml @ 1,000 mls/hr 1X PERIOP ONCE IRR Last administered on 01/24/17 12:59; Start 01/24/17 at 06:00; Stop at 06:59; Status DC Ondansetron HCl (Zofran) 4 mg PRN Q6HRS PRN IV NAUSEA/VOMITING; Start 01/24/17 at 07:00; Stop 01/25/17 at 06:59; Status DC Fentanyl Citrate (Fentanyl 2ml Vial) 25 mcg PRN Q5MIN PRN IV MILD PAIN; Start 01/24/17 at 07:00; Stop 01/24/17 at 22:48; Status DC Fentanyl Citrate (Fentanyl 2ml Vial) 50 mcg PRN Q5MIN PRN IV MODERATE PAIN Last administered on 01/24/17 19:01; Start 01/24/17 at 07:00; Stop 01/24/17 at 22:48; Status DC Morphine Sulfate 1 mg PRN Q10MIN PRN IV SEVERE PAIN; Start 01/24/17 at 07:00; Stop 01/24/17 at 22:48; Status DC Ringer's Solution 1,000 ml @ 30 mls/hr Q24H IV Last administered on 01/24/17 11:40; Start 01/24/17 at 07:00; Stop 01/24/17 at 18:59; Status DC Lidocaine HCl (Xylocaine-Mpf 1% Vial) 2 ml PRN 1X PRN ID IV START; Start at 07:00; Stop 01/25/17 at 06:59; Status DC Hydromorphone HCl (Dilaudid) 0.5 mg PRN Q10MIN PRN IV SEV PAIN, Second choice; Start 01/24/17 at 07:00; Stop 01/24/17 at 22:48; Status DC Prochlorperazine Edisylate (Compazine) 5 mg PACU PRN PRN IV NAUSEA, MRX1; Start 01/24/17 at 07:00; Stop 01/24/17 at 22:48; Status DC Cefazolin Sodium/ Dextrose 50 ml @ 100 mls/hr 1X PREOP PRN IV PRE-OP Last administered on 01/24/17 12:25; Start 01/23/17 at 13:15; Stop 01/24/17 at 18:00 ; Status DC Gelatin (Gelfoam Size 100) 1 each STK-MED ONCE .ROUTE Last administered on 12:59; Start 01/24/17 at 07:30; Stop 01/24/17 at 07:31; Status DC Bupivacaine HCl/ Epinephrine Bitart (Sensorcain-Mpf Epi 0.5%-[id number]) 30 ml STK -MED ONCE .ROUTE Last administered on 01/24/17 12:59; Start 01/24/17 at 07:31 ; Stop 01/24/17 at 07:32; Status DC Ketorolac Tromethamine (Toradol For Or Only) 60 mg STK-MED ONCE .ROUTE Last administered on 01/24/17 12:59; Start 01/24/17 at 07:31; Stop 01/24/17 at 07:32 ; Status DC Thrombin 20,000 unit STK-MED ONCE TP Last administered on 01/24/17 12:59; Start 01/24/17 at 07:31; Stop 01/24/17 at 07:32; Status DC Midazolam HCl (Versed) 2 mg STK-MED ONCE .ROUTE ; Start 01/24/17 at 11:05; Stop 01/24/17 at 11:06; Status DC Fentanyl Citrate (Fentanyl 5ml Vial) 250 mcg STK-MED ONCE .ROUTE ; Start at 11:05; Stop 01/24/17 at 11:06; Status DC Rocuronium [place] (Zemuron) 50 mg STK-MED ONCE .ROUTE ; Start 01/24/17 at 11:05 ; Stop 01/24/17 at 11:06; Status DC Remifentanil HCl (Ultiva) 2 mg STK-MED ONCE IV ; Start 01/24/17 at 11:05; Stop 01/24/17 at 11:06; Status DC Propofol 50 ml @ As Directed STK-MED ONCE IV ; Start 01/24/17 at 11:09; Stop at 11:10; Status DC Multi-Ingred Cream/Lotion/Oil/ Oint (Artificial Tears Eye Oint) 7 jose a STK-MED ONCE .ROUTE ; Start 01/24/17 at 11:09; Stop 01/24/17 at 11:10; Status DC Propofol 0 ml @ As Directed STK-MED ONCE IV ; Start 01/24/17 at 11:10; Stop 01/24/17 at 11:11; Status DC Lidocaine HCl (Lidocaine Pf 2% Vial) 5 ml STK-MED ONCE .ROUTE ; Start 01/24/17 at 11:10; Stop 01/24/17 at 11:11; Status DC Dexamethasone Sodium Phosphate (Decadron) 20 mg STK-MED ONCE .ROUTE ; Start 01/24/17 at 11:10; Stop 01/24/17 at 11:11; Status DC Ondansetron HCl (Zofran) 4 mg STK-MED ONCE .ROUTE ; Start 01/24/17 at 11:10; Stop 01/24/17 at 11:11; Status DC Desflurane (Suprane) 90 ml STK-MED ONCE IH ; Start 01/24/17 at 11:10; Stop 01/24 at 11:11; Status DC Sodium Chloride (Sodium Chloride) 50 ml STK-MED ONCE IJ ; Start 01/24/17 at 11: 11; Stop 01/24/17 at 11:12; Status DC Phenylephrine HCl 1 mg STK-MED ONCE IV ; Start 01/24/17 at 12:02; Stop 01/24/17 at 12:03; Status DC Glycopyrrolate (Robinul) 1 mg STK-MED ONCE .ROUTE ; Start 01/24/17 at 12:28; Stop 01/24/17 at 12:29; Status DC Neostigmine Methylsulfate 5 mg STK-MED ONCE .ROUTE ; Start 01/24/17 at 12:28; Stop 01/24/17 at 12:29; Status DC Ephedrine Sulfate (Akovaz) 50 mg STK-MED ONCE .ROUTE ; Start 01/24/17 at 14:05; Stop 01/24/17 at 14:06; Status DC Albumin Human 500 ml @ As Directed STK-MED ONCE IV ; Start 01/24/17 at 14:07; Stop 01/24/17 at 14:08; Status DC Remifentanil HCl (Ultiva) 2 mg STK-MED ONCE IV ; Start 01/24/17 at 14:55; Stop 01/24/17 at 14:56; Status DC Propofol 50 ml @ As Directed STK-MED ONCE IV ; Start 01/24/17 at 14:57; Stop at 14:58; Status DC Propofol 20 ml @ As Directed STK-MED ONCE IV ; Start 01/24/17 at 14:57; Stop at 14:58; Status DC Propofol 20 ml @ As Directed STK-MED ONCE IV ; Start 01/24/17 at 15:09; Stop at 15:10; Status DC Propofol 50 ml @ As Directed STK-MED ONCE IV ; Start 01/24/17 at 15:50; Stop at 15:51; Status DC Cefazolin Sodium/ Dextrose 50 ml @ As Directed STK-MED ONCE IV ; Start 01/24/17 at 16:20; Stop 01/24/17 at 16:21; Status DC Phenylephrine HCl 1 mg STK-MED ONCE IV ; Start 01/24/17 at 16:54; Stop 01/24/17 at 16:55; Status DC Propofol 50 ml @ As Directed STK-MED ONCE IV ; Start 01/24/17 at 17:10; Stop at 17:11; Status DC Remifentanil HCl (Ultiva) 2 mg STK-MED ONCE IV ; Start 01/24/17 at 17:10; Stop 01/24/17 at 17:11; Status DC Propofol 50 ml @ As Directed STK-MED ONCE IV ; Start 01/24/17 at 17:30; Stop at 17:31; Status DC Hydromorphone HCl (Dilaudid) 2 mg STK-MED ONCE .ROUTE ; Start 01/24/17 at 18:07 ; Stop 01/24/17 at 18:08; Status DC Fentanyl Citrate (Fentanyl 2ml Vial) 100 mcg STK-MED ONCE .ROUTE ; Start at 18:07; Stop 01/24/17 at 18:08; Status DC Morphine Sulfate 2 mg PRN Q2HR PRN IV SEVERE PAIN Last administered on 07:21; Start 01/24/17 at 22:45; Stop 01/30/17 at 15:33; Status DC Amlodipine Besylate (Norvasc) 5 mg DAILY PO Last administered on 01/30/17 09: 50; Start 01/26/17 at 09:00; Stop 01/30/17 at 15:33; Status DC Sodium Chloride 1,000 ml @ 75 mls/hr 1X ONCE IV Last administered on 13:25; Start 01/25/17 at 12:45; Stop 01/26/17 at 02:04; Status DC Metoprolol Succinate (Toprol Xl) 25 mg BID PO Last administered on 01/30/17 09:51; Start 01/26/17 at 21:00; Stop 01/30/17 at 15:33; Status DC Heparin Sodium (Porcine) (Heparin Sq) 5,000 unit Q8HRS SQ Last administered on 01/30/17 13:29; Start 01/27/17 at 14:00; Stop 01/30/17 at 15:33; Status DC Acetaminophen/ Hydrocodone Bitart (Lortab 10/325) 1 tab PRN Q6HRS PRN PO MODERATE PAIN Last administered on 01/30/17 10:26; Start 01/29/17 at 10:30; Stop 01/30/17 at 15:33; Status DC Dexamethasone (Decadron) 4 mg QID PO Last administered on 01/30/17 09:50; Start 01/29/17 at 17:00; Stop 01/30/17 at 10:02; Status DC Active Scripts Active Metoprolol Succinate ( Xl ) (Metoprolol Succinate) 25 Mg Tab.er.24h 25 Mg PO BID 30 Days Hydrocodone-Apap 10-325 (Hydrocodone Bit/Acetaminophen) 1 Each Tablet 1 Tab PO PRN Q6HRS PRN Senna-Time S Tablet (Sennosides/Docusate Sodium) 1 Each Tablet 2 Tab PO DAILY 10 Days Oxycontin (Oxycodone HCl) 15 Mg Tab.er.12h 30 Mg PO Q12HR Aspirin Ec (Aspirin) 81 Mg Tablet. 81 Mg PO DAILYWBKFT 30 Days Amlodipine Besylate 5 Mg Tablet 5 Mg PO DAILY 30 Days Reported Aspirin 325 Mg Tablet 1 Tab PO DAILY Vitamin D3 (Cholecalciferol (Vitamin D3)) 1,000 Unit Tablet 2,000 Unit PO Humira (Adalimumab) 40 Mg/0.8 Ml Pen.ij.kit 1 Syr SQ Q2WKS Folbic Rf Tablet (B12/Levomefolate Calcium/B-6) 1 Each Tablet 1 Each PO Omeprazole 40 Mg Capsule. 1 Cap PO DAILY Cholestyramine Packet (Cholestyramine (With Sugar)) 4 Gm Powd.pack 4 Gm PO Gabapentin 600 Mg Tablet 600 Mg PO TID Folic Acid 1 Mg Tablet 1 Tab PO DAILY Clonidine Hcl 0.1 Mg Tablet 0.1 Mg PO BID Metformin Hcl 1,000 Mg Tablet 1,000 Mg PO BIDWMEALS Atorvastatin Calcium 40 Mg Tablet 1 Tab PO DAILY Vitals/I & O Vital Sign - Last 24 Hours 01/29/17 01/29/17 01/29/17 01/29/17 19:15 20:20 21:41 21:43 Temp 97.6 97.6 Pulse 58 58 Resp 16 18 B/P (MAP) 116/53 (74) 116/53 Pulse Ox 95 O2 Delivery Room Air Room Air Room Air 01/29/17 01/29/17 01/30/17 01/30/17 21:45 23:21 02:42 05:47 Temp 97.5 98.0 97.5 98.0 Pulse 52 57 Resp 18 18 16 18 B/P (MAP) 130/66 (87) 138/68 (91) Pulse Ox 95 97 O2 Delivery Room Air BiPAP/CPAP Room Air Room Air 01/30/17 01/30/17 01/30/17 01/30/17 07:00 08:00 09:50 09:51 Temp 97.5 97.5 Pulse 56 56 56 Resp 18 B/P (MAP) 129/61 (83) 129/61 129/61 Pulse Ox 96 O2 Delivery Room Air Room Air 01/30/17 01/30/17 01/30/17 01/30/17 09:52 10:26 10:46 11:26 Temp 98.0 98.0 Pulse 68 Resp 12 12 16 12 B/P (MAP) 124/60 (81) Pulse Ox 95 95 100 94 O2 Delivery Room Air Room Air Room Air Room Air 01/30/17 01/30/17 01/30/17 12:18 13:18 13:52 Resp 12 12 12 Pulse Ox 95 94 95 O2 Delivery Room Air Room Air Room Air Intake and Output 01/29/17 01/29/17 01/30/17 15:00 23:00 07:00 Intake Total 600 ml 100 ml Output Total 1300 ml 800 ml Balance -700 ml -700 ml PINEDA FIELDS MD Jan 30, 2017 16:31
== END 2017-01-30 12:55 | DRG 459 ==
LOC: ER 20:36 → 2 SOUTH 23:05 → 4 NORTH 01-24 11:30 → 1 WEST ICU 01-24 18:00 → 4 NORTH 01-26 13:00
PROVIDERS: ADMIT Internal Medicine; ATTEND Internal Medicine
PROC: 02HV33Z Insertion of Infusion Device into Superior Vena Cava, Percutaneous Approach (ICD-10-PCS; 2017-01-19)
PROC: 0QB00ZX Excision of Lumbar Vertebra, Open Approach, Diagnostic (ICD-10-PCS; 2017-01-24)
PROC: 0SG1071 Fusion of 2 or more Lumbar Vertebral Joints with Autologous Tissue Substitute, Posterior Approach, Posterior Column, Open Approach (ICD-10-PCS; 2017-01-24)
PROC: 4A11X4G Monitoring of Peripheral Nervous Electrical Activity, Intraoperative, External Approach (ICD-10-PCS; 2017-01-24)
PROC: 07DR3ZZ Extraction of Iliac Bone Marrow, Percutaneous Approach (ICD-10-PCS; 2017-01-24)
PROC: 0ST20ZZ Resection of Lumbar Vertebral Disc, Open Approach (ICD-10-PCS; principal; 2017-01-24 12:00)
DX: M48.061 Spinal stenosis, lumbar region without neurogenic claudication (principal); J96.01 Acute respiratory failure with hypoxia; I62.1 Nontraumatic extradural hemorrhage; I50.31 Acute diastolic (congestive) heart failure; J18.9 Pneumonia, unspecified organism; N17.9 Acute kidney failure, unspecified; M48.04 Spinal stenosis, thoracic region; E11.22 Type 2 diabetes mellitus with diabetic chronic kidney disease; I13.0 Hypertensive heart and chronic kidney disease with heart failure and stage 1 through stage 4 chronic kidney disease, or unspecified chronic kidney disease; E11.42 Type 2 diabetes mellitus with diabetic polyneuropathy; N28.1 Cyst of kidney, acquired; I50.33 Acute on chronic diastolic (congestive) heart failure; S32.039A Unspecified fracture of third lumbar vertebra, initial encounter for closed fracture; E87.2 Acidosis; J44.0 Chronic obstructive pulmonary disease with (acute) lower respiratory infection; G83.4 Cauda equina syndrome; Z68.41 Body mass index [BMI] 40.0-44.9, adult; W19.XXXA Unspecified fall, initial encounter; E11.649 Type 2 diabetes mellitus with hypoglycemia without coma; R79.1 Abnormal coagulation profile; M19.90 Unspecified osteoarthritis, unspecified site; I25.10 Atherosclerotic heart disease of native coronary artery without angina pectoris; G47.33 Obstructive sleep apnea (adult) (pediatric); F10.20 Alcohol dependence, uncomplicated; E86.0 Dehydration; E78.5 Hyperlipidemia, unspecified; E78.00 Pure hypercholesterolemia, unspecified; E66.9 Obesity, unspecified; D64.9 Anemia, unspecified; N18.3 Chronic kidney disease, stage 3 (moderate); C80.1 Malignant (primary) neoplasm, unspecified; I48.0 Paroxysmal atrial fibrillation; M89.58 Osteolysis, other site; Z99.81 Dependence on supplemental oxygen; Z98.1 Arthrodesis status; Z95.5 Presence of coronary angioplasty implant and graft; Z87.891 Personal history of nicotine dependence; Z87.01 Personal history of pneumonia (recurrent); Z82.49 Family history of ischemic heart disease and other diseases of the circulatory system; Z80.8 Family history of malignant neoplasm of other organs or systems; Z90.49 Acquired absence of other specified parts of digestive tract; Y93.89 Activity, other specified; Y99.8 Other external cause status; Z85.46 Personal history of malignant neoplasm of prostate; Y92.009 Unspecified place in unspecified non-institutional (private) residence as the place of occurrence of the external cause; Z88.1 Allergy status to other antibiotic agents; Z88.8 Allergy status to other drugs, medicaments and biological substances
CPT/HCPCS: 20225; 36415; 36569; 70450; 71010; 71250; 72100; 72125; 72128; 72131; 72158; 74176; 76000; 76770; 77012; 77075; 78306; 78582; 80048; 80053; 80061; 80069; 81001; 82550; 82553; 82607; 82728; 82746; 82784; 82962; 83520; 83540; 83550; 83605; 83615; 83690; 83735; 83880; 84165; 84300; 84484; 84550; 85007; 85025; 85027; 85045; 85379; 85384; 85520; 85610; 85730; 86334; 86850; 86900; 86901; 86920; 86927; 87040; 87641; 88304; 88307; 88311; 93005; 93306; 93970; 94250; 94640; 94760; 96361; 96374; 96375; 99152; 99153; A9503; A9540; A9558; C1713; G0103; G0480; J0690; J1100; J1644; J1815; J1885; J2020; J2250; J2270; J2370; J2405; J2543; J2704; J2710; J3010; J3490; J7030; J7060; J7120; J7613; J8540; P9016; P9017; P9045; 97530; 99291-25; J2001

== ENCOUNTER 2017-02-04 12:27 | Inpatient (IN) | payer MEDICARE ==
[~2017-02-04] VITALS: Ht 175.3 cm; Wt 113.4 kg
[~2017-02-04 12:27] MED LIST: ADAL40PE SQ; AMLO5TAB2 PO; ASPI-612 PO; ASPI325T8 PO; ATOR40TA59 PO; B12/1TAB3 PO; CHOL10003 PO; CHOL4POW2 PO; CLON0.1T PO; FOLI1TAB16 PO; GABA600T2 PO; HYDR-2766 PO; HYDR1TAB14 PO; LOPE2CAP88 PO; METF-620 PO; METO-239 PO; METO-247 PO; OMEP40CA5 PO; OXYC15TA60 PO; SENN-22 PO
--- NOTE | 2017-02-04 13:12 | PHYS DOC ---
Past Medical History Past Medical History: CAD, Diabetes-Type II, High Cholesterol, Heart Disease Additional Past Medical Histor: Crohns; sleep apnea Past Surgical History: Angioplasty, Appendectomy, Cholecystectomy Additional Past Surgical Histo: bowel resection, LAMINECTOMY Alcohol Use: Rarely Drug Use: None Adult General Chief Complaint Chief Complaint: POST-OP PROBLEM HPI HPI Patient is a 71 year old male who presents with decreasing hemoglobin and jaundice. He was recently discharged after he had an L3 spinal mass resected and fusion of L1-L4. He had this procedure on January 25 and was discharged on January 30. According to EMS report he's been having decreasing hemoglobin and hematocrit over the last several days and his eyes becoming more jaundiced. He has been complaining of right hip pain whenever he tries to get up or moves his right hip. He also is having some pain in his back. He states is because he is laying or has had his surgery. He denies any nausea vomiting he denies any fevers or chills. He has been having some more stools than normal but he states that's because he has a history of Crohn's disease and has not been receiving any of his Crohn's medicine. He denies chest pain, shortness of breath and abdominal pain. States he's had his gallbladder removed and his appendix in the past. According to his family he has been having swelling of his lower extremities, in addition to he's had previous transfusions turn his last hospital visit. Review of Systems Review of Systems Constitutional: Denies fever or chills [] Eyes: Denies change in visual acuity, redness, or eye pain [] HENT: Denies nasal congestion or sore throat [] Respiratory: Denies cough or shortness of breath [] Cardiovascular: No additional information not addressed in HPI [] GI: Denies abdominal pain, nausea, vomiting, bloody stools or diarrhea [] : Denies dysuria or hematuria [] Musculoskeletal: Denies back pain, positive for right hip pain with movement Integument: Denies rash or skin lesions [] Neurologic: Denies headache, focal weakness or sensory changes [] Endocrine: Denies polyuria or polydipsia [] All other systems were reviewed and found to be within normal limits, except as documented in this note. Current Medications Current Medications Current Medications Medications (Trade) Dose Ordered Sig/Jose Start Time Stop Time Status Last Admin Dose Admin Morphine Sulfate 2 mg PRN Q15MIN PRN 02/04/17 13:15 02/04/17 15:05 DC 02/04/17 13:44 2 MG Ondansetron HCl (Zofran) 4 mg 1X ONCE 02/04/17 13:15 02/04/17 13:16 DC 02/04/17 13:26 4 MG Allergies Allergies Allergies Coded Allergies Type Severity Reaction Last Updated Verified azathioprine Allergy Intermediate n/v 01/24/17 Yes furosemide Allergy Intermediate "i dont know" 01/15/17 Yes infliximab Allergy Intermediate rash 01/15/17 Yes Physical Exam Physical Exam Constitutional: Well developed, well nourished, no acute distress, non-toxic appearance. [] HENT: Normocephalic, atraumatic, bilateral external ears normal, oropharynx moist, no oral exudates, nose normal. [] Eyes: PERRLA, EOMI, conjunctiva normal, no discharge. [] Neck: Normal range of motion, no tenderness, supple, no stridor. [] Cardiovascular:Heart rate regular rhythm, no murmur [] Lungs & Thorax: Bilateral breath sounds clear to auscultation [] Abdomen: Bowel sounds normal, soft, no tenderness, no masses, no pulsatile masses. [] Skin: Warm, dry, no erythema, no rash. [] Back: Midline lumbar incision with ricky in place, no erythema or drainage noted, Extremities: Tender with movement of the right hip, no crepitus notedness, no cyanosis, no clubbing, ROM intact, 2+ bilateral lower extremity edema. [] Neurologic: Alert and oriented X 3, normal motor function, normal sensory function, no focal deficits noted. [] Psychologic: Affect normal, judgement normal, mood normal. [] Current Patient Data Vital Signs Vital Signs Date Time Temp Pulse Resp B/P (MAP) Pulse Ox O2 Delivery O2 Flow Rate FiO2 02/04/17 13:45 60 18 123/49 (73) 99 Room Air 02/04/17 12:27 98.6 98.6 Lab Values Laboratory Tests Test 02/04/17 12:45 White Blood Count 8.8 x10^3/uL (4.0-11.0) Red Blood Count 2.82 x10^6/uL (4.30-5.70) L Hemoglobin 8.9 g/dL (13.0-17.5) L Hematocrit 28.0 % (39.0-53.0) L Mean Corpuscular Volume 99 fL (79-100) Mean Corpuscular Hemoglobin 32 pg (25-35) Mean Corpuscular Hemoglobin Concent 32 g/dL (31-37) Red Cell Distribution Width 19.2 % (11.5-14.5) H Platelet Count 284 x10^3/uL (140-400) Neutrophils (%) (Auto) 81 % (31-73) H Lymphocytes (%) (Auto) 8 % (24-48) L Monocytes (%) (Auto) 6 % (0-9) Eosinophils (%) (Auto) 4 % (0-3) H Basophils (%) (Auto) 1 % (0-3) Neutrophils # (Auto) 7.2 x10^3uL (1.8-7.7) Lymphocytes # (Auto) 0.7 x10^3/uL (1.0-4.8) L Monocytes # (Auto) 0.5 x10^3/uL (0.0-1.1) Eosinophils # (Auto) 0.4 x10^3/uL (0.0-0.7) Basophils # (Auto) 0.0 x10^3/uL (0.0-0.2) Reticulocyte Count (auto) 3.4 % (0.5-2.5) H Prothrombin Time 13.4 SEC (11.7-14.0) Prothrombin Time INR 1.1 (0.8-1.1) Sodium Level 137 mmol/L (136-145) Potassium Level 4.1 mmol/L (3.5-5.1) Chloride Level 99 mmol/L (98-107) Carbon Dioxide Level 22 mmol/L (21-32) Anion Gap 16 (6-14) H Blood Urea Nitrogen 25 mg/dL (8-26) Creatinine 1.7 mg/dL (0.7-1.3) H Estimated GFR (Cockcroft-Gault) 39.9 Glucose Level 109 mg/dL (70-99) H Calcium Level 8.6 mg/dL (8.5-10.1) Magnesium Level 1.8 mg/dL (1.8-2.4) Iron Level 46 ug/dL (65-175) L Total Iron Binding Capacity 349 ug/dL (250-450) Iron Saturation 13 % (15-34) L Ferritin 238 ng/mL (26-388) Total Bilirubin 2.5 mg/dL (0.2-1.0) H Direct Bilirubin 0.5 mg/dL (0.0-0.2) H Aspartate Amino Transferase (AST) 24 U/L (15-37) Alanine Aminotransferase (ALT) 21 U/L (16-63) Alkaline Phosphatase 131 U/L (46-116) H Lactate Dehydrogenase 290 U/L (85-227) H Creatine Kinase 62 U/L (39-308) Creatine Kinase MB (Mass) 0.8 ng/mL (0.0-3.6) Creatine Kinase MB Relative Index % (0-4) Troponin I Quantitative < 0.017 ng/mL (0.000-0.055) SL-Fco-H-Type Natriuretic Peptide 3157 pg/mL (0-124) H Total Protein 6.3 g/dL (6.4-8.2) L Albumin 2.6 g/dL (3.4-5.0) L Lipase 57 U/L (73-393) L Laboratory Tests 02/04/17 12:45 Laboratory Tests 02/04/17 12:45 EKG EKG EKG shows irregular rhythm with a rate of [address] elevations or concerning T-wave inversions, right axis deviation noted, QTC 439 ms, as interpreted by me. Radiology/Procedures Radiology/Procedures [facility] [address] [place], [place] [id number] IMAGING REPORT Signed PATIENT: JESSE MCGEE ACCOUNT: [id number] : 1945 LOCATION: ER AGE: 71 SEX: M EXAM STATUS: REG ER ORD. PHYSICIAN: KENYATTA GILMAN MD REASON: pain PROCEDURE: HIP RIGHT 2V WITH PELVIS HIP RIGHT 2V WITH PELVIS Clinical Indication: pain to right hip x2 weeks. Recent back surgery. Comparison: Skeletal survey 01/18/17 Findings: No acute fracture or dislocation of the right hip. The joint space is maintained. The mineralization is normal. On AP pelvis, there is lumbar spine fusion hardware, partially seen. There are right-sided skin ricky projecting adjacent to the hardware. IMPRESSION: No acute fracture or dislocation of the right hip. DICTATED and SIGNED BY: CHARLOTTE FRY MD DATE: 02/04/17 1415 CC: KENYATTA GILMAN MD; JINNY ARTIS MD ~ Impressions: Hyperbilirubinemia Postop L1 L 4 fusion Acute on chronic kidney disease Course & Med Decision Making Course & Med Decision Making Pertinent Labs and Imaging studies reviewed. (See chart for details) Hemoglobin is stable. His creatinine is slightly elevated. He does have an elevated bilirubin. He is being admitted to hospitalists in stable condition at this time. Dragon Disclaimer Dragon Disclaimer This electronic medical record was generated, in whole or in part, using a voice recognition dictation system. Departure Departure Impression: Primary Impression: Hyperbilirubinemia Disposition: ADMITTED INPATIENT Admitting Physician: Other Condition: STABLE Referrals: JINNY ARTIS MD (PCP) KENYATTA GILMAN MD Feb 04, 2017 13:12
[2017-02-04 13:15] LABS: BASO % 1 % (0-3); EOS % 4 % (0-3); HEMOGLOBIN 8.9 g/dL (13.0-17.5); LYMPH # 0.7 x10^3/uL (1.0-4.8); LYMPH % 8 % (24-48); MEAN CORPUSCULAR HEMOGLOBIN 32 pg (25-35); MEAN CORPUSCULAR HGB CONC 32 g/dL (31-37); MEAN CORPUSCULAR VOLUME 99 fL (79-100); MONO % 6 % (0-9); NEUT % 81 % (31-73); PLATELET COUNT 284 x10^3/uL (140-400); RED BLOOD COUNT 2.82 x10^6/uL (4.30-5.70); RED CELL DISTRIBUTION WIDTH 19.2 % (11.5-14.5); WHITE BLOOD COUNT 8.8 x10^3/uL (4.0-11.0)
[2017-02-04] MEDS ORDERED: ONDANSETRON PF 4 MG/2 ML VIAL. IV ONE (13:15)
[2017-02-04] MEDS: MORPHINE SULFATE 2 MG/ML DISP.SYRIN. IV/SQ PRN ×2 (13:27→13:44)
[2017-02-04 13:30] LABS: INR 1.1 (0.8-1.1); PROTHROMBIN TIME PATIENT 13.4 SEC (11.7-14.0)
[2017-02-04 13:32] LABS: CALCIUM 8.6 mg/dL (8.5-10.1); CREATININE 1.7 mg/dL (0.7-1.3); GFR 39.9; POTASSIUM 4.1 mmol/L (3.5-5.1)
[2017-02-04 13:43] LABS: CKMB MASS 0.8 ng/mL (0.0-3.6); CREATINE KINASE 62 U/L (39-308)
[2017-02-04 13:45] LABS: ALBUMIN 2.6 g/dL (3.4-5.0); DIRECT BILIRUBIN 0.5 mg/dL (0.0-0.2); MAGNESIUM 1.8 mg/dL (1.8-2.4); TOTAL BILIRUBIN 2.5 mg/dL (0.2-1.0); TOTAL PROTEIN 6.3 g/dL (6.4-8.2)
--- NOTE | 2017-02-04 14:24 | RAD ---
HIP RIGHT 2V WITH PELVIS Clinical Indication: pain to right hip x2 weeks. Recent back surgery. Comparison: Skeletal survey 01/18/17 Findings: No acute fracture or dislocation of the right hip. The joint space is maintained. The mineralization is normal. On AP pelvis, there is lumbar spine fusion hardware, partially seen. There are right-sided skin ricky projecting adjacent to the hardware. IMPRESSION: No acute fracture or dislocation of the right hip.
[2017-02-04 14:35] LABS: BILIRUBIN,URINE SMALL (NEG); GLUCOSE,URINE NEGATIVE (NEG); NITRITE,URINE NEGATIVE (NEG); PH,URINE 5.5; PROTEIN,URINE 30 mg/dL (NEG-TRACE)
[2017-02-04 14:44] LABS: % SAT IRON 13 % (15-34); IRON,SERUM 46 ug/dL (65-175)
[2017-02-04 14:58] LABS: FERRITIN 238 ng/mL (26-388); LACTATE DEHYDROGENASE 290 U/L (85-227)
[2017-02-04 14:58] LABS: BACTERIA,URINE 0 /HPF (0-FEW); RBC,URINE RARE /HPF (0-2); SQUAMOUS EPITHELIAL CELL,UR FEW /LPF; WBC,URINE 0 /HPF (0-4)
[2017-02-04] MEDS ORDERED: MORPHINE SULFATE 4 MG/ML DISP.SYRIN. IV PRN (15:00)
[2017-02-04] MEDS ORDERED: ONDANSETRON PF 4 MG/2 ML VIAL. IV PRN (15:00)
[2017-02-04 16:00] VITALS: BP 111/47
[2017-02-04] MEDS ORDERED: LOPE2CAP PO (16:54)
[2017-02-04] MEDS ORDERED: LIDO700A39 TP (16:54)
[2017-02-04] MEDS ORDERED: DICL100G18 TP (16:54)
[2017-02-04 19:00] VITALS: BP 123/44
[2017-02-04] MEDS ORDERED: LOPERAMIDE 2 MG CAPSULE PO PRN ×2 (19:30→21:15)
[2017-02-04] MEDS ORDERED: CHOLESTYRAMINE/ASPARTAME 4 GM PACKET PO SCH (21:15)
[2017-02-04] MEDS: oxyCODONE ER 15 MG TAB.ER.12H PO SCH (21:26)
[2017-02-04] MEDS: ATORVASTATIN CALCIUM 40 MG TABLET. PO SCH (21:26)
[2017-02-04] MEDS: DICLOFENAC SODIUM 1% TOPICAL GEL 100GM TUBE. TP SCH (21:28)
[2017-02-04] MEDS: cloNIDine HCL 0.1 MG TABLET PO SCH (21:28)
[2017-02-04] MEDS: METOPROLOL SUCC 24HR ER 25 MG TAB.ER.24H. PO SCH (21:29)
[2017-02-04] MEDS: GABAPENTIN 300 MG CAPSULE. PO SCH (21:29)
[2017-02-04 23:00] VITALS: BP 102/39
--- NOTE | 2017-02-04 23:31 | HP ---
ADMIT DATE: 02/04/2017 CHIEF COMPLAINT: Hyperbilirubinemia. HISTORY OF PRESENT ILLNESS: The patient is a 71-year-old gentleman who was transferred from a rehab where he had been since the after hospitalization for an L3 spinal mass requiring fusion of L1 to L4. According to the rehab facility, he had become more jaundiced and anemic and was therefore transferred back to the Emergency Room. Hemoglobin there are actually was significantly increased since discharge. His bilirubin, however, had been more elevated at 2.5. He still has pain, especially in his right hip whenever he tries to move as well as some pain in his back. On further questioning, he relates that he has increased bowel movements as the medications to control his Crohn's diarrhea have not been restarted yet. He is taken cholestyramine twice a day as well as Imodium. Otherwise; however, he feels perfectly fine, did not complain of weakness other than his back related issues and any fevers, chills or other problems. PAST MEDICAL HISTORY: Status post recent L3 stabilization with rods. High suspicion for malignancy, but pathology report not back yet. Also hypertension, hyperlipidemia, diabetes mellitus, BPH, history of multiple compression fractures in the 80s after a fall. Crohn's disease status post partial colon resection, appendectomy and cholecystectomy. FAMILY HISTORY: Positive for CAD. SOCIAL HISTORY: Currently lives with his . Never smoked, was drinking alcohol fairly heavily. ALLERGIES: AZATHIOPRINE, FUROSEMIDE and INFLIXIMAB. HOME MEDICATIONS: MAR reconciled with home meds. REVIEW OF SYSTEMS: Positive as per HPI. Rest of organ system review is negative. PHYSICAL EXAMINATION: VITAL SIGNS: From today show a blood pressure of 111/47, heart rate of 68, respiratory rate at 18 and he is afebrile. GENERAL: This is a well-nourished 71-year-old gentleman, alert and oriented, in no acute distress. HEENT: Shows no scleral icterus. To my examination, oral mucosa is pink and moist. NECK: Supple. LUNGS: Clear. HEART: Regular rate and rhythm. ABDOMEN: Has positive bowel sounds. Soft and nontender. EXTREMITIES: Show no edema. Wound per ER is intact. I did not roll him again. LABORATORY DATA: CBC with a WBC of 8.8 and hemoglobin 8.9 compared to discharge labs of 7.8 and platelets at 284. Chemistries with a BUN and creatinine of 25 and 1.7, slightly elevated over his discharge labs of 1.3. Electrolytes within normal limits. Total bilirubin at 2.5 and direct bilirubin at 0.5. LFTs within normal. Albumin at 2.3. Pro-BNP 3157. Troponin is negative. Iron at 46, TIBC 349 and ferritin at 238. RADIOLOGICAL DATA: Hip and pelvis x-ray, no acute fracture or dislocation of right hip. ASSESSMENT AND PLAN: The patient is a 71-year-old gentleman with a recent back surgery for a lytic lesion. Pathology report is not returned yet but suspicion for malignancy including multiple myeloma was given. Anemia was preexisting and is actually slightly improved, although I am not sure if there is a component of hemoconcentration in current labs. Iron studies are actually within normal limits as he actually had received iron at previous admission. Retic is slightly elevated but appropriate for the level of anemia. Only abnormal labs actually total bilirubin, which is increased from previous admission. Direct bilirubin, however, is within normal limits. Suspect this may be related to his alcoholic liver disease. We will monitor. At current levels, he does not require any transfusions. We will see if in the morning the pathology report from the surgery from 01/20/2017 can be found. We will continue all his home medications. We will restart his bowel regimen with Questran b.i.d. as well as Imodium. NELL FERNÁNDEZ MD DR: CAMRYN/nts JOB#: [id number] / [id number] JINNY Henderson MD MTDInderjit
[2017-02-05 03:00] VITALS: BP 112/49
[2017-02-05 05:18] LABS: BASO # 0.1 x10^3/uL (0.0-0.2); BASO % 1 % (0-3); EOS % 6 % (0-3); HEMATOCRIT 24.2 % (39.0-53.0); HEMOGLOBIN 7.8 g/dL (13.0-17.5); LYMPH # 1.2 x10^3/uL (1.0-4.8); LYMPH % 17 % (24-48); MEAN CORPUSCULAR HEMOGLOBIN 32 pg (25-35); MEAN CORPUSCULAR HGB CONC 32 g/dL (31-37); MEAN CORPUSCULAR VOLUME 100 fL (79-100); MONO % 9 % (0-9); NEUT % 68 % (31-73); PLATELET COUNT 225 x10^3/uL (140-400); RED BLOOD COUNT 2.43 x10^6/uL (4.30-5.70); RED CELL DISTRIBUTION WIDTH 18.7 % (11.5-14.5); WHITE BLOOD COUNT 6.9 x10^3/uL (4.0-11.0)
[2017-02-05] MEDS: CHOLESTYRAMINE/ASPARTAME 4 GM PACKET PO SCH ×2 (05:23→17:35)
[2017-02-05 05:26] LABS: CALCIUM 8.3 mg/dL (8.5-10.1); CREATININE 1.4 mg/dL (0.7-1.3); POTASSIUM 3.9 mmol/L (3.5-5.1)
[2017-02-05] MEDS: HYDROcodone/APAP 10/325 1 TAB TABLET PO PRN ×2 (05:29→14:09)
--- NOTE | 2017-02-05 06:15 | EKG ---
[facility] [address] [place] [address] Test Date: 2017-02-04 Test Time: 13:21:50 Pat Name: JESSE MCGEE Department: Room: [facility] Gender: M Radio Technician: : 1945 Requested By: KENYATTA GILMAN Order Number: [id number] Reading MD: Prem Leon MD Measurements Intervals Kimberly Rate: 63 P: IA: QRS: 172 QRSD: 90 T: 68 QT: 426 QTc: 439 Interpretive Statements SUSPECT ATRIAL FIBRILLATION LIMB LEAD MISPLACEMENT NON-SPECIFIC ST/T CHANGES Electronically Signed On 02-06-2017 12:29:12 DIRECTOR DENTAL SERVICES by Prem Leon MD
[2017-02-05 07:00] VITALS: BP 131/67
[2017-02-05] MEDS: ASPIRIN ENTERIC COATED 81 MG TABLET.DR. PO SCH (08:31)
[2017-02-05] MEDS: amLODIPine BESYLATE 5 MG TABLET PO SCH (08:32)
[2017-02-05] MEDS: METOPROLOL SUCC 24HR ER 25 MG TAB.ER.24H. PO SCH ×2 (08:32→23:00)
[2017-02-05] MEDS: CHOLECALCIFEROL (VITAMIN D3) 1,000 UNIT TABLET PO SCH (08:32)
[2017-02-05] MEDS: FOLIC ACID 1 MG TABLET. PO SCH (08:32)
[2017-02-05] MEDS: GABAPENTIN 300 MG CAPSULE. PO SCH ×3 (08:32→20:37)
[2017-02-05] MEDS: SENNOSIDES/DOCUSATE 8.6/50MG TABLET. PO SCH (08:33)
[2017-02-05] MEDS: oxyCODONE ER 15 MG TAB.ER.12H PO SCH ×2 (08:33→20:36)
[2017-02-05] MEDS: cloNIDine HCL 0.1 MG TABLET PO SCH ×2 (08:33→20:36)
[2017-02-05] MEDS: LIDOCAINE (700MG/PATCH) PATCH. TP SCH (08:34)
[2017-02-05] MEDS: DICLOFENAC SODIUM 1% TOPICAL GEL 100GM TUBE. TP SCH ×4 (08:35→20:37)
[2017-02-05 11:00] VITALS: BP 105/60
--- NOTE | 2017-02-05 12:48 | PDOC ---
PROGRESS NOTES Chief Complaint Chief Complaint (1) Hyperbilirubinemia Status: Acute History of Present Illness History of Present Illness Pt feeling well no jaundice Back pain with radiation to Rt hip HH continue to decline with current labs 7.8 Hgb 24.2 Hct.. Discussed the need to consult hem/onc for Anemia Vitals Vitals Vital Signs Date Time Temp Pulse Resp B/P (MAP) Pulse Ox O2 Delivery O2 Flow Rate FiO2 02/05/17 11:00 98.5 54 18 105/60 (75) 96 Room Air 98.5 Physical Exam General: Alert, Cooperative, No acute distress Heart: Regular rate, No murmurs, Gallops Lungs: Clear, Other (No wheezes or rales) Skin: No rashes, No significant lesion Labs LABS Laboratory Tests Test 02/04/17 12:45 02/04/17 14:25 02/04/17 15:56 02/04/17 20:40 White Blood Count 8.8 x10^3/uL (4.0-11.0) Red Blood Count 2.82 x10^6/uL (4.30-5.70) Hemoglobin 8.9 g/dL (13.0-17.5) Hematocrit 28.0 % (39.0-53.0) Mean Corpuscular Volume 99 fL (79-100) Mean Corpuscular Hemoglobin 32 pg (25-35) Mean Corpuscular Hemoglobin Concent 32 g/dL (31-37) Red Cell Distribution Width 19.2 % (11.5-14.5) Platelet Count 284 x10^3/uL (140-400) Neutrophils (%) (Auto) 81 % (31-73) Lymphocytes (%) (Auto) 8 % (24-48) Monocytes (%) (Auto) 6 % (0-9) Eosinophils (%) (Auto) 4 % (0-3) Basophils (%) (Auto) 1 % (0-3) Neutrophils # (Auto) 7.2 x10^3uL (1.8-7.7) Lymphocytes # (Auto) 0.7 x10^3/uL (1.0-4.8) Monocytes # (Auto) 0.5 x10^3/uL (0.0-1.1) Eosinophils # (Auto) 0.4 x10^3/uL (0.0-0.7) Basophils # (Auto) 0.0 x10^3/uL (0.0-0.2) Reticulocyte Count (auto) 3.4 % (0.5-2.5) Prothrombin Time 13.4 SEC (11.7-14.0) Prothromb Time International Ratio 1.1 (0.8-1.1) Sodium Level 137 mmol/L (136-145) Potassium Level 4.1 mmol/L (3.5-5.1) Chloride Level 99 mmol/L (98-107) Carbon Dioxide Level 22 mmol/L (21-32) Anion Gap 16 (6-14) Blood Urea Nitrogen 25 mg/dL (8-26) Creatinine 1.7 mg/dL (0.7-1.3) Estimated GFR (Cockcroft-Gault) 39.9 Glucose Level 109 mg/dL (70-99) Calcium Level 8.6 mg/dL (8.5-10.1) Magnesium Level 1.8 mg/dL (1.8-2.4) Iron Level 46 ug/dL (65-175) Total Iron Binding Capacity 349 ug/dL (250-450) Iron Saturation 13 % (15-34) Ferritin 238 ng/mL (26-388) Total Bilirubin 2.5 mg/dL (0.2-1.0) Direct Bilirubin 0.5 mg/dL (0.0-0.2) Aspartate Amino Transf (AST/SGOT) 24 U/L (15-37) Alanine Aminotransferase (ALT/SGPT) 21 U/L (16-63) Alkaline Phosphatase 131 U/L (46-116) Lactate Dehydrogenase 290 U/L (85-227) Creatine Kinase 62 U/L (39-308) Creatine Kinase MB (Mass) 0.8 ng/mL (0.0-3.6) Creatine Kinase MB Relative Index % (0-4) Troponin I Quantitative < 0.017 ng/mL (0.000-0.055) < 0.017 ng/mL (0.000-0.055) DN-Zuv-G-Type Natriuretic Peptide 3157 pg/mL (0-124) Total Protein 6.3 g/dL (6.4-8.2) Albumin 2.6 g/dL (3.4-5.0) Lipase 57 U/L (73-393) Urine Collection Type Unknown Urine Color Dk yellow Urine Clarity Hazy Urine pH 5.5 Urine Specific [place] >=1.030 Urine Protein 30 mg/dL (NEG-TRACE) Urine Glucose (UA) Negative mg/dL (NEG) Urine Ketones (Stick) Trace mg/dL (NEG) Urine Blood Negative (NEG) Urine Nitrite Negative (NEG) Urine Bilirubin Small (NEG) Urine Urobilinogen Dipstick 1.0 mg/dL (0.2 mg/dL) Urine Leukocyte Esterase Negative (NEG) Urine RBC Rare /HPF (0-2) Urine WBC 0 /HPF (0-4) Urine Squamous Epithelial Cells Few /LPF Urine Bacteria 0 /HPF (0-FEW) Urine Hyaline Casts Occasional /HPF Urine Mucus Marked /LPF Glucose (Fingerstick) 108 mg/dL (70-99) Test 02/05/17 03:30 02/05/17 07:44 02/05/17 11:40 White Blood Count 6.9 x10^3/uL (4.0-11.0) Red Blood Count 2.43 x10^6/uL (4.30-5.70) Hemoglobin 7.8 g/dL (13.0-17.5) Hematocrit 24.2 % (39.0-53.0) Mean Corpuscular Volume 100 fL (79-100) Mean Corpuscular Hemoglobin 32 pg (25-35) Mean Corpuscular Hemoglobin Concent 32 g/dL (31-37) Red Cell Distribution Width 18.7 % (11.5-14.5) Platelet Count 225 x10^3/uL (140-400) Neutrophils (%) (Auto) 68 % (31-73) Lymphocytes (%) (Auto) 17 % (24-48) Monocytes (%) (Auto) 9 % (0-9) Eosinophils (%) (Auto) 6 % (0-3) Basophils (%) (Auto) 1 % (0-3) Neutrophils # (Auto) 4.7 x10^3uL (1.8-7.7) Lymphocytes # (Auto) 1.2 x10^3/uL (1.0-4.8) Monocytes # (Auto) 0.6 x10^3/uL (0.0-1.1) Eosinophils # (Auto) 0.4 x10^3/uL (0.0-0.7) Basophils # (Auto) 0.1 x10^3/uL (0.0-0.2) Sodium Level 140 mmol/L (136-145) Potassium Level 3.9 mmol/L (3.5-5.1) Chloride Level 106 mmol/L (98-107) Carbon Dioxide Level 27 mmol/L (21-32) Anion Gap 7 (6-14) Blood Urea Nitrogen 27 mg/dL (8-26) Creatinine 1.4 mg/dL (0.7-1.3) Estimated GFR (Cockcroft-Gault) 50.0 Glucose Level 95 mg/dL (70-99) Calcium Level 8.3 mg/dL (8.5-10.1) Troponin I Quantitative < 0.017 ng/mL (0.000-0.055) Glucose (Fingerstick) 105 mg/dL (70-99) 103 mg/dL (70-99) Review of Systems Review of Systems General: No fevers, chills, night sweats Cardio:No chest pain, palpitations, Lungs: No SOB, dyspnea GI: No nausea, vomting, constipation Assessment and Plan Assessmemt and Plan Problems Medical Problems: (1) Hyperbilirubinemia Status: Acute Anemia Status post recent L3 stabilization with rods. High suspicion for malignancy, but pathology report not back yet. Hypertension, Hyperlipidemia, Diabetes mellitus, BPH, History of multiple compression fractures in the 80s after a fall. Crohn's disease status post partial colon resection, Appendectomy Cholecystectomy Plan: Recheck Labs in the Morning Consult PT/OT Consult Dr. Servin Heme/Onc (Anemia) Probable Discharge Tomorrow if OK with Heme/Onc Continue Home Meds Problems: Comment Review of Relevant I have reviewed the following items bernadine (where applicable) has been applied. Labs Laboratory Tests Test 02/04/17 12:45 02/04/17 14:25 02/04/17 15:56 02/04/17 20:40 White Blood Count 8.8 x10^3/uL (4.0-11.0) Red Blood Count 2.82 x10^6/uL (4.30-5.70) Hemoglobin 8.9 g/dL (13.0-17.5) Hematocrit 28.0 % (39.0-53.0) Mean Corpuscular Volume 99 fL (79-100) Mean Corpuscular Hemoglobin 32 pg (25-35) Mean Corpuscular Hemoglobin Concent 32 g/dL (31-37) Red Cell Distribution Width 19.2 % (11.5-14.5) Platelet Count 284 x10^3/uL (140-400) Neutrophils (%) (Auto) 81 % (31-73) Lymphocytes (%) (Auto) 8 % (24-48) Monocytes (%) (Auto) 6 % (0-9) Eosinophils (%) (Auto) 4 % (0-3) Basophils (%) (Auto) 1 % (0-3) Neutrophils # (Auto) 7.2 x10^3uL (1.8-7.7) Lymphocytes # (Auto) 0.7 x10^3/uL (1.0-4.8) Monocytes # (Auto) 0.5 x10^3/uL (0.0-1.1) Eosinophils # (Auto) 0.4 x10^3/uL (0.0-0.7) Basophils # (Auto) 0.0 x10^3/uL (0.0-0.2) Reticulocyte Count (auto) 3.4 % (0.5-2.5) Prothrombin Time 13.4 SEC (11.7-14.0) Prothromb Time International Ratio 1.1 (0.8-1.1) Sodium Level 137 mmol/L (136-145) Potassium Level 4.1 mmol/L (3.5-5.1) Chloride Level 99 mmol/L (98-107) Carbon Dioxide Level 22 mmol/L (21-32) Anion Gap 16 (6-14) Blood Urea Nitrogen 25 mg/dL (8-26) Creatinine 1.7 mg/dL (0.7-1.3) Estimated GFR (Cockcroft-Gault) 39.9 Glucose Level 109 mg/dL (70-99) Calcium Level 8.6 mg/dL (8.5-10.1) Magnesium Level 1.8 mg/dL (1.8-2.4) Iron Level 46 ug/dL (65-175) Total Iron Binding Capacity 349 ug/dL (250-450) Iron Saturation 13 % (15-34) Ferritin 238 ng/mL (26-388) Total Bilirubin 2.5 mg/dL (0.2-1.0) Direct Bilirubin 0.5 mg/dL (0.0-0.2) Aspartate Amino Transf (AST/SGOT) 24 U/L (15-37) Alanine Aminotransferase (ALT/SGPT) 21 U/L (16-63) Alkaline Phosphatase 131 U/L (46-116) Lactate Dehydrogenase 290 U/L (85-227) Creatine Kinase 62 U/L (39-308) Creatine Kinase MB (Mass) 0.8 ng/mL (0.0-3.6) Creatine Kinase MB Relative Index % (0-4) Troponin I Quantitative < 0.017 ng/mL (0.000-0.055) < 0.017 ng/mL (0.000-0.055) OE-Rnf-P-Type Natriuretic Peptide 3157 pg/mL (0-124) Total Protein 6.3 g/dL (6.4-8.2) Albumin 2.6 g/dL (3.4-5.0) Lipase 57 U/L (73-393) Urine Collection Type Unknown Urine Color Dk yellow Urine Clarity Hazy Urine pH 5.5 Urine Specific [place] >=1.030 Urine Protein 30 mg/dL (NEG-TRACE) Urine Glucose (UA) Negative mg/dL (NEG) Urine Ketones (Stick) Trace mg/dL (NEG) Urine Blood Negative (NEG) Urine Nitrite Negative (NEG) Urine Bilirubin Small (NEG) Urine Urobilinogen Dipstick 1.0 mg/dL (0.2 mg/dL) Urine Leukocyte Esterase Negative (NEG) Urine RBC Rare /HPF (0-2) Urine WBC 0 /HPF (0-4) Urine Squamous Epithelial Cells Few /LPF Urine Bacteria 0 /HPF (0-FEW) Urine Hyaline Casts Occasional /HPF Urine Mucus Marked /LPF Glucose (Fingerstick) 108 mg/dL (70-99) Test 02/05/17 03:30 02/05/17 07:44 02/05/17 11:40 White Blood Count 6.9 x10^3/uL (4.0-11.0) Red Blood Count 2.43 x10^6/uL (4.30-5.70) Hemoglobin 7.8 g/dL (13.0-17.5) Hematocrit 24.2 % (39.0-53.0) Mean Corpuscular Volume 100 fL (79-100) Mean Corpuscular Hemoglobin 32 pg (25-35) Mean Corpuscular Hemoglobin Concent 32 g/dL (31-37) Red Cell Distribution Width 18.7 % (11.5-14.5) Platelet Count 225 x10^3/uL (140-400) Neutrophils (%) (Auto) 68 % (31-73) Lymphocytes (%) (Auto) 17 % (24-48) Monocytes (%) (Auto) 9 % (0-9) Eosinophils (%) (Auto) 6 % (0-3) Basophils (%) (Auto) 1 % (0-3) Neutrophils # (Auto) 4.7 x10^3uL (1.8-7.7) Lymphocytes # (Auto) 1.2 x10^3/uL (1.0-4.8) Monocytes # (Auto) 0.6 x10^3/uL (0.0-1.1) Eosinophils # (Auto) 0.4 x10^3/uL (0.0-0.7) Basophils # (Auto) 0.1 x10^3/uL (0.0-0.2) Sodium Level 140 mmol/L (136-145) Potassium Level 3.9 mmol/L (3.5-5.1) Chloride Level 106 mmol/L (98-107) Carbon Dioxide Level 27 mmol/L (21-32) Anion Gap 7 (6-14) Blood Urea Nitrogen 27 mg/dL (8-26) Creatinine 1.4 mg/dL (0.7-1.3) Estimated GFR (Cockcroft-Gault) 50.0 Glucose Level 95 mg/dL (70-99) Calcium Level 8.3 mg/dL (8.5-10.1) Troponin I Quantitative < 0.017 ng/mL (0.000-0.055) Glucose (Fingerstick) 105 mg/dL (70-99) 103 mg/dL (70-99) Laboratory Tests Test 02/04/17 12:45 02/04/17 14:25 02/04/17 15:56 02/04/17 20:40 White Blood Count 8.8 x10^3/uL (4.0-11.0) Red Blood Count 2.82 x10^6/uL (4.30-5.70) Hemoglobin 8.9 g/dL (13.0-17.5) Hematocrit 28.0 % (39.0-53.0) Mean Corpuscular Volume 99 fL (79-100) Mean Corpuscular Hemoglobin 32 pg (25-35) Mean Corpuscular Hemoglobin Concent 32 g/dL (31-37) Red Cell Distribution Width 19.2 % (11.5-14.5) Platelet Count 284 x10^3/uL (140-400) Neutrophils (%) (Auto) 81 % (31-73) Lymphocytes (%) (Auto) 8 % (24-48) Monocytes (%) (Auto) 6 % (0-9) Eosinophils (%) (Auto) 4 % (0-3) Basophils (%) (Auto) 1 % (0-3) Neutrophils # (Auto) 7.2 x10^3uL (1.8-7.7) Lymphocytes # (Auto) 0.7 x10^3/uL (1.0-4.8) Monocytes # (Auto) 0.5 x10^3/uL (0.0-1.1) Eosinophils # (Auto) 0.4 x10^3/uL (0.0-0.7) Basophils # (Auto) 0.0 x10^3/uL (0.0-0.2) Reticulocyte Count (auto) 3.4 % (0.5-2.5) Prothrombin Time 13.4 SEC (11.7-14.0) Prothromb Time International Ratio 1.1 (0.8-1.1) Sodium Level 137 mmol/L (136-145) Potassium Level 4.1 mmol/L (3.5-5.1) Chloride Level 99 mmol/L (98-107) Carbon Dioxide Level 22 mmol/L (21-32) Anion Gap 16 (6-14) Blood Urea Nitrogen 25 mg/dL (8-26) Creatinine 1.7 mg/dL (0.7-1.3) Estimated GFR (Cockcroft-Gault) 39.9 Glucose Level 109 mg/dL (70-99) Calcium Level 8.6 mg/dL (8.5-10.1) Magnesium Level 1.8 mg/dL (1.8-2.4) Iron Level 46 ug/dL (65-175) Total Iron Binding Capacity 349 ug/dL (250-450) Iron Saturation 13 % (15-34) Ferritin 238 ng/mL (26-388) Total Bilirubin 2.5 mg/dL (0.2-1.0) Direct Bilirubin 0.5 mg/dL (0.0-0.2) Aspartate Amino Transf (AST/SGOT) 24 U/L (15-37) Alanine Aminotransferase (ALT/SGPT) 21 U/L (16-63) Alkaline Phosphatase 131 U/L (46-116) Lactate Dehydrogenase 290 U/L (85-227) Creatine Kinase 62 U/L (39-308) Creatine Kinase MB (Mass) 0.8 ng/mL (0.0-3.6) Creatine Kinase MB Relative Index % (0-4) Troponin I Quantitative < 0.017 ng/mL (0.000-0.055) < 0.017 ng/mL (0.000-0.055) QZ-Prm-J-Type Natriuretic Peptide 3157 pg/mL (0-124) Total Protein 6.3 g/dL (6.4-8.2) Albumin 2.6 g/dL (3.4-5.0) Lipase 57 U/L (73-393) Urine Collection Type Unknown Urine Color Dk yellow Urine Clarity Hazy Urine pH 5.5 Urine Specific [place] >=1.030 Urine Protein 30 mg/dL (NEG-TRACE) Urine Glucose (UA) Negative mg/dL (NEG) Urine Ketones (Stick) Trace mg/dL (NEG) Urine Blood Negative (NEG) Urine Nitrite Negative (NEG) Urine Bilirubin Small (NEG) Urine Urobilinogen Dipstick 1.0 mg/dL (0.2 mg/dL) Urine Leukocyte Esterase Negative (NEG) Urine RBC Rare /HPF (0-2) Urine WBC 0 /HPF (0-4) Urine Squamous Epithelial Cells Few /LPF Urine Bacteria 0 /HPF (0-FEW) Urine Hyaline Casts Occasional /HPF Urine Mucus Marked /LPF Glucose (Fingerstick) 108 mg/dL (70-99) Test 02/05/17 03:30 02/05/17 07:44 02/05/17 11:40 White Blood Count 6.9 x10^3/uL (4.0-11.0) Red Blood Count 2.43 x10^6/uL (4.30-5.70) Hemoglobin 7.8 g/dL (13.0-17.5) Hematocrit 24.2 % (39.0-53.0) Mean Corpuscular Volume 100 fL (79-100) Mean Corpuscular Hemoglobin 32 pg (25-35) Mean Corpuscular Hemoglobin Concent 32 g/dL (31-37) Red Cell Distribution Width 18.7 % (11.5-14.5) Platelet Count 225 x10^3/uL (140-400) Neutrophils (%) (Auto) 68 % (31-73) Lymphocytes (%) (Auto) 17 % (24-48) Monocytes (%) (Auto) 9 % (0-9) Eosinophils (%) (Auto) 6 % (0-3) Basophils (%) (Auto) 1 % (0-3) Neutrophils # (Auto) 4.7 x10^3uL (1.8-7.7) Lymphocytes # (Auto) 1.2 x10^3/uL (1.0-4.8) Monocytes # (Auto) 0.6 x10^3/uL (0.0-1.1) Eosinophils # (Auto) 0.4 x10^3/uL (0.0-0.7) Basophils # (Auto) 0.1 x10^3/uL (0.0-0.2) Sodium Level 140 mmol/L (136-145) Potassium Level 3.9 mmol/L (3.5-5.1) Chloride Level 106 mmol/L (98-107) Carbon Dioxide Level 27 mmol/L (21-32) Anion Gap 7 (6-14) Blood Urea Nitrogen 27 mg/dL (8-26) Creatinine 1.4 mg/dL (0.7-1.3) Estimated GFR (Cockcroft-Gault) 50.0 Glucose Level 95 mg/dL (70-99) Calcium Level 8.3 mg/dL (8.5-10.1) Troponin I Quantitative < 0.017 ng/mL (0.000-0.055) Glucose (Fingerstick) 105 mg/dL (70-99) 103 mg/dL (70-99) Medications Current Medications Morphine Sulfate 2 mg PRN Q15MIN PRN IV/SQ PAIN GREATER THAN 3/10 Last administered on 02/04/17t 13:44; Start 02/04/17 at 13:15; Stop 02/04/17 at 15 :05; Status DC Ondansetron HCl (Zofran) 4 mg 1X ONCE IV Last administered on 02/04/17 13:26 ; Start 02/04/17 at 13:15; Stop 02/04/17 at 13:16; Status DC Ondansetron HCl (Zofran) 4 mg PRN Q8HRS PRN IV NAUSEA/VOMITING; Start at 15:00; Stop 02/05/17 at 14:59 Morphine Sulfate 2 mg PRN Q2HR PRN IV PAIN Last administered on 02/04/17 17: 49; Start 02/04/17 at 15:00; Stop 02/05/17 at 14:59 Amlodipine Besylate (Norvasc) 5 mg DAILY PO Last administered on 02/05/17 08: 32; Start 02/05/17 at 09:00 Aspirin (Ecotrin) 81 mg DAILYWBKFT PO Last administered on 02/05/17 08:31; Start 02/05/17 at 08:00 Atorvastatin Calcium (Lipitor) 40 mg QHS PO Last administered on 02/04/17 21: 26; Start 02/04/17 at 21:00 Vitamin D (Vitamin D3) 2,000 unit DAILY PO Last administered on 02/05/17 08: 32; Start 02/05/17 at 09:00 Clonidine HCl (Catapres) 0.1 mg BID PO Last administered on 02/05/17 08:33; Start 02/04/17 at 21:00 Diclofenac Sodium (Voltaren) 1 jose a QID TP Last administered on 02/05/17 08:35 ; Start 02/04/17 at 21:00 Folic Acid (Folic Acid) 1 mg DAILY PO Last administered on 02/05/17 08:32; Start 02/05/17 at 09:00 Acetaminophen/ Hydrocodone Bitart (Lortab 10/325) 1 tab PRN Q6HRS PRN PO MODERATE PAIN Last administered on 02/05/17 05:29; Start 02/04/17 at 19:30 Lidocaine (Lidoderm) 1 patch DAILY TP Last administered on 02/05/17 08:34; Start 02/05/17 at 09:00 Loperamide HCl (Imodium) 2 mg PRN QID PRN PO DIARRHEA; Start 02/04/17 at 19:30 Metformin HCl (Glucophage) 1,000 mg BIDWMEALS PO Last administered on 08:31; Start 02/05/17 at 08:00 Metoprolol Succinate (Toprol Xl) 25 mg BID PO Last administered on 02/05/17 08:32; Start 02/04/17 at 21:00 Oxycodone HCl (OxyCONTIN) 30 mg Q12HR PO Last administered on 02/05/17 08:33 ; Start 02/04/17 at 21:00 Senna/Docusate Sodium (Senna Plus) 2 tab DAILY PO ; Start 02/05/17 at 09:00 Gabapentin (Neurontin) 600 mg TID PO Last administered on 02/05/17 08:32; Start 02/04/17 at 21:00 Cholestyramine Resin (Questran Light) 4 gm BID PO ; Start 02/04/17 at 21:15; Stop 02/05/17 at 01:39; Status DC Loperamide HCl (Imodium) 4 mg PRN Q15MIN PRN PO DIARRHEA; Start 02/04/17 at 21 :15 Cholestyramine Resin (Questran Light) 4 gm [id number] PO Last administered on 05:23; Start 02/05/17 at 06:00 Active Scripts Active Metoprolol Succinate ( Xl ) (Metoprolol Succinate) 25 Mg Tab.er.24h 25 Mg PO BID 30 Days Hydrocodone-Apap 10-325 (Hydrocodone Bit/Acetaminophen) 1 Each Tablet 1 Tab PO PRN Q6HRS PRN Senna-Time S Tablet (Sennosides/Docusate Sodium) 1 Each Tablet 2 Tab PO DAILY 10 Days Oxycontin (Oxycodone HCl) 15 Mg Tab.er.12h 30 Mg PO Q12HR Aspirin Ec (Aspirin) 81 Mg Tablet.dr 81 Mg PO DAILYWBKFT 30 Days Amlodipine Besylate 5 Mg Tablet 5 Mg PO DAILY 30 Days Reported Loperamide (Loperamide Hcl) 2 Mg Capsule 2 Mg PO PRN QID PRN Voltaren (Diclofenac Sodium) 100 Gm Gel..gram. 1 Gm TP QID Lidocaine 1 Each Adh..patch 1 Each TP DAILY Vitamin D3 (Cholecalciferol (Vitamin D3)) 1,000 Unit Tablet 2,000 Unit PO Humira (Adalimumab) 40 Mg/0.8 Ml Pen.ij.kit 1 Syr SQ Q2WKS Folbic Rf Tablet (B12/Levomefolate Calcium/B-6) 1 Each Tablet 1 Each PO Omeprazole 40 Mg Capsule.dr 1 Cap PO DAILY Cholestyramine Packet (Cholestyramine (With Sugar)) 4 Gm Powd.pack 4 Gm PO Gabapentin 600 Mg Tablet 600 Mg PO TID Folic Acid 1 Mg Tablet 1 Tab PO DAILY Clonidine Hcl 0.1 Mg Tablet 0.1 Mg PO BID Metformin Hcl 1,000 Mg Tablet 1,000 Mg PO BIDWMEALS Atorvastatin Calcium 40 Mg Tablet 1 Tab PO DAILY Vitals/I & O Vital Sign - Last 24 Hours 02/04/17 02/04/17 02/04/17 02/04/17 12:27 13:45 14:45 15:15 Temp 98.6 98.6 Pulse 71 60 64 62 Resp 18 18 18 18 B/P (MAP) 128/57 (80) 123/49 (73) 122/58 (79) 134/60 (84) Pulse Ox 97 99 99 99 O2 Delivery Room Air Room Air Room Air Room Air 02/04/17 02/04/17 02/04/17 02/04/17 16:00 16:00 16:48 17:49 Temp 97.9 97.9 97.9 97.9 Pulse 68 68 Resp 18 18 20 B/P (MAP) 111/47 (68) 111/47 (68) Pulse Ox 94 94 O2 Delivery Room Air Room Air Room Air Room Air 02/04/17 02/04/17 02/04/17 02/04/17 18:20 19:00 19:30 21:26 Temp 97.5 97.5 Pulse 70 Resp 16 18 16 B/P (MAP) 123/44 (70) Pulse Ox 95 O2 Delivery Room Air Room Air Room Air Room Air 02/04/17 02/04/17 02/04/17 02/05/17 21:28 21:29 23:00 01:30 Temp 97.9 97.9 Pulse 70 70 58 Resp 18 B/P (MAP) 123/44 123/44 102/39 (60) Pulse Ox 93 O2 Delivery Room Air Room Air 02/05/17 02/05/17 02/05/1702/05/17 03:00 05:29 07:00 07:35 Temp 97.9 97.7 97.9 97.7 Pulse 60 80 Resp 18 16 18 B/P (MAP) 112/49 (70) 131/67 (88) Pulse Ox 93 98 O2 Delivery Room Air Room Air Room Air Room Air 02/05/17 02/05/17 02/05/17 02/05/17 07:35 08:32 08:32 08:33 Pulse 80 80 80 B/P (MAP) 131/67 131/67 131/67 O2 Delivery Room Air 02/05/17 02/05/17 08:33 11:00 Temp 98.5 98.5 Pulse 54 Resp 18 B/P (MAP) 105/60 (75) Pulse Ox 96 O2 Delivery Room Air Room Air Intake and Output 02/04/17 02/04/17 02/05/17 15:00 23:00 07:00 Intake Total 800 ml 730 ml Output Total 150 ml Balance 800 ml 580 ml JESSICA RAMIREZ III DO Feb 05, 2017 12:48
[2017-02-05 13:18] LABS: HAPTOGLOBIN <10 mg/dL (34-200); TRANSFERRIN 217 mg/dL (200-370)
[2017-02-05 15:00] VITALS: BP 104/62
--- NOTE | 2017-02-05 17:35 | PDOC2 ---
CONSULT Date of Consult Date of Consult DATE: 02/05/17 TIME: 17:24 Past Medical History Cardiovascular: CAD, HTN, Hyperlipidemia Pulmonary: Other CENTRAL NERVOUS SYSTEM: Other GI: Inflam bowel disease Heme/Onc: Other Psych: No pertinent hx Musculoskeletal: Osteoarthritis Rheumatologic: No pertinent hx Infectious disease: No pertinent hx Renal/: Benign prostatic enlarg. Endocrine: Diabetes Past Surgical History Past Surgical History: Appendectomy, Cholecystectomy, Colon Resection, Other Family History Family History: Coronary Artery Disease Social History ALCOHOL: heavy Drugs: None Lives: with Family Current Problem List Problem List Problems Medical Problems: (1) Hyperbilirubinemia Status: Acute Current Medications Current Medications Current Medications Morphine Sulfate 2 mg PRN Q15MIN PRN IV/SQ PAIN GREATER THAN 3/10 Last administered on 02/04/17 13:44; Start 02/04/17 at 13:15; Stop 02/04/17 at 15 :05; Status DC Ondansetron HCl (Zofran) 4 mg 1X ONCE IV Last administered on 02/04/17 13:26 ; Start 02/04/17 at 13:15; Stop 02/04/17 at 13:16; Status DC Ondansetron HCl (Zofran) 4 mg PRN Q8HRS PRN IV NAUSEA/VOMITING; Start at 15:00; Stop 02/05/17 at 14:59; Status DC Morphine Sulfate 2 mg PRN Q2HR PRN IV PAIN Last administered on 02/04/17 17: 49; Start 02/04/17 at 15:00; Stop 02/05/17 at 14:59; Status DC Amlodipine Besylate (Norvasc) 5 mg DAILY PO Last administered on 02/05/17 08: 32; Start 02/05/17 at 09:00 Aspirin (Ecotrin) 81 mg DAILYWBKFT PO Last administered on 02/05/17 08:31; Start 02/05/17 at 08:00 Atorvastatin Calcium (Lipitor) 40 mg QHS PO Last administered on 02/04/17 21: 26; Start 02/04/17 at 21:00 Vitamin D (Vitamin D3) 2,000 unit DAILY PO Last administered on 02/05/17 08: 32; Start 02/05/17 at 09:00 Clonidine HCl (Catapres) 0.1 mg BID PO Last administered on 02/05/17 08:33; Start 02/04/17 at 21:00 Diclofenac Sodium (Voltaren) 1 jose a QID TP Last administered on 02/05/17 14:10 ; Start 02/04/17 at 21:00 Folic Acid (Folic Acid) 1 mg DAILY PO Last administered on 02/05/17 08:32; Start 02/05/17 at 09:00 Acetaminophen/ Hydrocodone Bitart (Lortab 10/325) 1 tab PRN Q6HRS PRN PO MODERATE PAIN Last administered on 02/05/17 14:09; Start 02/04/17 at 19:30 Lidocaine (Lidoderm) 1 patch DAILY TP Last administered on 02/05/17 08:34; Start 02/05/17 at 09:00 Loperamide HCl (Imodium) 2 mg PRN QID PRN PO DIARRHEA; Start 02/04/17 at 19:30 ; Stop 02/05/17 at 13:29; Status DC Metformin HCl (Glucophage) 1,000 mg BIDWMEALS PO Last administered on 08:31; Start 02/05/17 at 08:00 Metoprolol Succinate (Toprol Xl) 25 mg BID PO Last administered on 02/05/17 08:32; Start 02/04/17 at 21:00 Oxycodone HCl (OxyCONTIN) 30 mg Q12HR PO Last administered on 02/05/17 08:33 ; Start 02/04/17 at 21:00 Senna/Docusate Sodium (Senna Plus) 2 tab DAILY PO ; Start 02/05/17 at 09:00 Gabapentin (Neurontin) 600 mg TID PO Last administered on 02/05/17 14:09; Start 02/04/17 at 21:00 Cholestyramine Resin (Questran Light) 4 gm BID PO ; Start 02/04/17 at 21:15; Stop 02/05/17 at 01:39; Status DC Loperamide HCl (Imodium) 4 mg PRN Q15MIN PRN PO DIARRHEA; Start 02/04/17 at 21 :15 Cholestyramine Resin (Questran Light) 4 gm [id number] PO Last administered on 05:23; Start 02/05/17 at 06:00 Active Scripts Active Metoprolol Succinate ( Xl ) (Metoprolol Succinate) 25 Mg Tab.er.24h 25 Mg PO BID 30 Days Hydrocodone-Apap 10-325 (Hydrocodone Bit/Acetaminophen) 1 Each Tablet 1 Tab PO PRN Q6HRS PRN Senna-Time S Tablet (Sennosides/Docusate Sodium) 1 Each Tablet 2 Tab PO DAILY 10 Days Oxycontin (Oxycodone HCl) 15 Mg Tab.er.12h 30 Mg PO Q12HR Aspirin Ec (Aspirin) 81 Mg Tablet. 81 Mg PO DAILYWBKFT 30 Days Amlodipine Besylate 5 Mg Tablet 5 Mg PO DAILY 30 Days Reported Loperamide (Loperamide Hcl) 2 Mg Capsule 2 Mg PO PRN QID PRN Voltaren (Diclofenac Sodium) 100 Gm Gel..gram. 1 Gm TP QID Lidocaine 1 Each Adh..patch 1 Each TP DAILY Vitamin D3 (Cholecalciferol (Vitamin D3)) 1,000 Unit Tablet 2,000 Unit PO Humira (Adalimumab) 40 Mg/0.8 Ml Pen.ij.kit 1 Syr SQ Q2WKS Folbic Rf Tablet (B12/Levomefolate Calcium/B-6) 1 Each Tablet 1 Each PO Omeprazole 40 Mg Capsule. 1 Cap PO DAILY Cholestyramine Packet (Cholestyramine (With Sugar)) 4 Gm Powd.pack 4 Gm PO Gabapentin 600 Mg Tablet 600 Mg PO TID Folic Acid 1 Mg Tablet 1 Tab PO DAILY Clonidine Hcl 0.1 Mg Tablet 0.1 Mg PO BID Metformin Hcl 1,000 Mg Tablet 1,000 Mg PO BIDWMEALS Atorvastatin Calcium 40 Mg Tablet 1 Tab PO DAILY Allergies Allergies: Coded Allergies: azathioprine (Verified Allergy, Intermediate, n/v, 01/24/17) furosemide (Verified Allergy, Intermediate, "i dont know" , 01/15/17) infliximab (Verified Allergy, Intermediate, rash, 01/15/17) Vitals VITALS Vital Signs Date Time Temp Pulse Resp B/P (MAP) Pulse Ox O2 Delivery O2 Flow Rate FiO2 02/05/17 14:09 Room Air 02/05/17 11:00 98.5 54 18 105/60 (75) 96 98.5 Labs Labs Laboratory Tests Test 02/04/17 12:45 02/04/17 14:25 02/04/17 15:56 02/04/17 16:30 White Blood Count 8.8 x10^3/uL (4.0-11.0) Red Blood Count 2.82 x10^6/uL (4.30-5.70) Hemoglobin 8.9 g/dL (13.0-17.5) Hematocrit 28.0 % (39.0-53.0) Mean Corpuscular Volume 99 fL (79-100) Mean Corpuscular Hemoglobin 32 pg (25-35) Mean Corpuscular Hemoglobin Concent 32 g/dL (31-37) Red Cell Distribution Width 19.2 % (11.5-14.5) Platelet Count 284 x10^3/uL (140-400) Neutrophils (%) (Auto) 81 % (31-73) Lymphocytes (%) (Auto) 8 % (24-48) Monocytes (%) (Auto) 6 % (0-9) Eosinophils (%) (Auto) 4 % (0-3) Basophils (%) (Auto) 1 % (0-3) Neutrophils # (Auto) 7.2 x10^3uL (1.8-7.7) Lymphocytes # (Auto) 0.7 x10^3/uL (1.0-4.8) Monocytes # (Auto) 0.5 x10^3/uL (0.0-1.1) Eosinophils # (Auto) 0.4 x10^3/uL (0.0-0.7) Basophils # (Auto) 0.0 x10^3/uL (0.0-0.2) Reticulocyte Count (auto) 3.4 % (0.5-2.5) Haptoglobin <10 mg/dL (34-200) Prothrombin Time 13.4 SEC (11.7-14.0) Prothromb Time International Ratio 1.1 (0.8-1.1) Sodium Level 137 mmol/L (136-145) Potassium Level 4.1 mmol/L (3.5-5.1) Chloride Level 99 mmol/L (98-107) Carbon Dioxide Level 22 mmol/L (21-32) Anion Gap 16 (6-14) Blood Urea Nitrogen 25 mg/dL (8-26) Creatinine 1.7 mg/dL (0.7-1.3) Estimated GFR (Cockcroft-Gault) 39.9 Glucose Level 109 mg/dL (70-99) Calcium Level 8.6 mg/dL (8.5-10.1) Magnesium Level 1.8 mg/dL (1.8-2.4) Iron Level 46 ug/dL (65-175) Total Iron Binding Capacity 349 ug/dL (250-450) Iron Saturation 13 % (15-34) Transferrin 217 mg/dL (200-370) Ferritin 238 ng/mL (26-388) Total Bilirubin 2.5 mg/dL (0.2-1.0) Direct Bilirubin 0.5 mg/dL (0.0-0.2) Aspartate Amino Transf (AST/SGOT) 24 U/L (15-37) Alanine Aminotransferase (ALT/SGPT) 21 U/L (16-63) Alkaline Phosphatase 131 U/L (46-116) Lactate Dehydrogenase 290 U/L (85-227) Creatine Kinase 62 U/L (39-308) Creatine Kinase MB (Mass) 0.8 ng/mL (0.0-3.6) Creatine Kinase MB Relative Index % (0-4) Troponin I Quantitative < 0.017 ng/mL (0.000-0.055) DB-Qpd-I-Type Natriuretic Peptide 3157 pg/mL (0-124) Total Protein 6.3 g/dL (6.4-8.2) Albumin 2.6 g/dL (3.4-5.0) Lipase 57 U/L (73-393) Urine Collection Type Unknown Urine Color Dk yellow Urine Clarity Hazy Urine pH 5.5 Urine Specific [place] >=1.030 Urine Protein 30 mg/dL (NEG-TRACE) Urine Glucose (UA) Negative mg/dL (NEG) Urine Ketones (Stick) Trace mg/dL (NEG) Urine Blood Negative (NEG) Urine Nitrite Negative (NEG) Urine Bilirubin Small (NEG) Urine Urobilinogen Dipstick 1.0 mg/dL (0.2 mg/dL) Urine Leukocyte Esterase Negative (NEG) Urine RBC Rare /HPF (0-2) Urine WBC 0 /HPF (0-4) Urine Squamous Epithelial Cells Few /LPF Urine Bacteria 0 /HPF (0-FEW) Urine Hyaline Casts Occasional /HPF Urine Mucus Marked /LPF Glucose (Fingerstick) 108 mg/dL (70-99) Nasal Screen MRSA (PCR) Negative (Negative) Test 02/04/17 20:40 02/05/17 03:30 02/05/17 07:44 02/05/17 11:40 Troponin I Quantitative < 0.017 ng/mL (0.000-0.055) < 0.017 ng/mL (0.000-0.055) White Blood Count 6.9 x10^3/uL (4.0-11.0) Red Blood Count 2.43 x10^6/uL (4.30-5.70) Hemoglobin 7.8 g/dL (13.0-17.5) Hematocrit 24.2 % (39.0-53.0) Mean Corpuscular Volume 100 fL (79-100) Mean Corpuscular Hemoglobin 32 pg (25-35) Mean Corpuscular Hemoglobin Concent 32 g/dL (31-37) Red Cell Distribution Width 18.7 % (11.5-14.5) Platelet Count 225 x10^3/uL (140-400) Neutrophils (%) (Auto) 68 % (31-73) Lymphocytes (%) (Auto) 17 % (24-48) Monocytes (%) (Auto) 9 % (0-9) Eosinophils (%) (Auto) 6 % (0-3) Basophils (%) (Auto) 1 % (0-3) Neutrophils # (Auto) 4.7 x10^3uL (1.8-7.7) Lymphocytes # (Auto) 1.2 x10^3/uL (1.0-4.8) Monocytes # (Auto) 0.6 x10^3/uL (0.0-1.1) Eosinophils # (Auto) 0.4 x10^3/uL (0.0-0.7) Basophils # (Auto) 0.1 x10^3/uL (0.0-0.2) Sodium Level 140 mmol/L (136-145) Potassium Level 3.9 mmol/L (3.5-5.1) Chloride Level 106 mmol/L (98-107) Carbon Dioxide Level 27 mmol/L (21-32) Anion Gap 7 (6-14) Blood Urea Nitrogen 27 mg/dL (8-26) Creatinine 1.4 mg/dL (0.7-1.3) Estimated GFR (Cockcroft-Gault) 50.0 Glucose Level 95 mg/dL (70-99) Calcium Level 8.3 mg/dL (8.5-10.1) Glucose (Fingerstick) 105 mg/dL (70-99) 103 mg/dL (70-99) Test 02/05/17 16:46 Glucose (Fingerstick) 113 mg/dL (70-99) Laboratory Tests Test 02/04/17 20:40 02/05/17 03:30 02/05/17 07:44 02/05/17 11:40 Troponin I Quantitative < 0.017 ng/mL (0.000-0.055) < 0.017 ng/mL (0.000-0.055) White Blood Count 6.9 x10^3/uL (4.0-11.0) Red Blood Count 2.43 x10^6/uL (4.30-5.70) Hemoglobin 7.8 g/dL (13.0-17.5) Hematocrit 24.2 % (39.0-53.0) Mean Corpuscular Volume 100 fL (79-100) Mean Corpuscular Hemoglobin 32 pg (25-35) Mean Corpuscular Hemoglobin Concent 32 g/dL (31-37) Red Cell Distribution Width 18.7 % (11.5-14.5) Platelet Count 225 x10^3/uL (140-400) Neutrophils (%) (Auto) 68 % (31-73) Lymphocytes (%) (Auto) 17 % (24-48) Monocytes (%) (Auto) 9 % (0-9) Eosinophils (%) (Auto) 6 % (0-3) Basophils (%) (Auto) 1 % (0-3) Neutrophils # (Auto) 4.7 x10^3uL (1.8-7.7) Lymphocytes # (Auto) 1.2 x10^3/uL (1.0-4.8) Monocytes # (Auto) 0.6 x10^3/uL (0.0-1.1) Eosinophils # (Auto) 0.4 x10^3/uL (0.0-0.7) Basophils # (Auto) 0.1 x10^3/uL (0.0-0.2) Sodium Level 140 mmol/L (136-145) Potassium Level 3.9 mmol/L (3.5-5.1) Chloride Level 106 mmol/L (98-107) Carbon Dioxide Level 27 mmol/L (21-32) Anion Gap 7 (6-14) Blood Urea Nitrogen 27 mg/dL (8-26) Creatinine 1.4 mg/dL (0.7-1.3) Estimated GFR (Cockcroft-Gault) 50.0 Glucose Level 95 mg/dL (70-99) Calcium Level 8.3 mg/dL (8.5-10.1) Glucose (Fingerstick) 105 mg/dL (70-99) 103 mg/dL (70-99) Test 02/05/17 16:46 Glucose (Fingerstick) 113 mg/dL (70-99) Assessment/Plan Assessment/Plan DATE OF CONSULTATION: 02/05/2017 CONSULTATION REQUESTED BY: Dr. Perez. REASON FOR CONSULTATION: Anemia with elevated bilirubin. HISTORY OF PRESENT ILLNESS: The patient is a 71-year-old gentleman who had an episode of passing out and he fell. He was brought into the Emergency Room and admitted to [facility] on 01/15/2017. He did not have any seizures. No incontinence. No confusion or headaches. He did feel short of breath and he was noted to have hypoxia per EMS. He reports having had back pain which was getting worse and he does have history of vertebral compression fracture. He also has been on antibiotics recently for pneumonia. He denies any significant loss of weight or loss of appetite. No fevers, chills or night sweats. No hematemesis, melena, hematochezia, no hemoptysis or hematuria. No nose bleeds or gum bleeding. He underwent further workup with a lumbar spine CT on 01/15/2017 which revealed diffuse infiltrative process in the L3 vertebrae consistent with osteolytic metastatic disease. There is circumferential involvement of the spinal canal at this level and severe spinal stenosis from T1 infiltration of the spinal canal. Multiple radiolucencies of the lumbar spine are also seen, which could be from metastatic lesions or osteoporosis. Compression deformities of T9, T11, T12 were also noted. Osteosclerotic lesions were also noted in the cervical spine CT. He underwent CT scan of the chest, abdomen and pelvis on 01/16/2017 that revealed pathology in the spine as described above. There was moderate peripancreatic lymphadenopathy and the significance is uncertain. Stranding and irregularity was noted involving the mesentery probably reflecting old disease. A 4.5 cm left kidney density is noted which is of unclear etiology, an ultrasound was recommended. He also had a PSA performed on 01/16/2017 and it was normal at 2.36. Bone lesion due to fracture. He also has multiple other lesions in the spine. Thought to be benign. Now s/p L1 to L4 fusion laminectomy L4, Bx L3 and removal of L4 hematoma on 01/24/2017. Path negative for malignancy. He was admitted 02/04/17 for weakness, anemia and elevated bili. PAST MEDICAL HISTORY: Coronary artery disease, hypertension, hyperlipidemia, obstructive sleep apnea, inflammatory bowel disease/Crohn's disease, osteoarthritis, benign prostatic enlargement, and diabetes mellitus. PAST SURGICAL HISTORY: Appendectomy, cholecystectomy, colon resection, small bowel resection from exploratory laparotomy. FAMILY HISTORY: Positive for coronary artery disease. SOCIAL HISTORY: He has a history of alcohol use. He does not smoke cigarettes. REVIEW OF SYSTEMS: A 12-point review of system was performed. Pertinent positives are mentioned in the history of present illness. Rest of the system review is negative. PHYSICAL EXAMINATION: GENERAL APPEARANCE: The patient is a 71-year-old gentleman who is well built and nourished, and in no acute cardiorespiratory distress. VITAL SIGNS: reviewed HEENT: Head is atraumatic, normocephalic. Eyes: No icterus. NECK: Supple. CHEST: Bilaterally symmetrical. HEART: S1, S2 normal. ABDOMEN: Soft, nontender. CENTRAL NERVOUS SYSTEM: No focal deficits. LYMPHATICS: No lymphadenopathy. SKIN: No rashes. PSYCHOLOGIC: Mood and affect are appropriate. MUSCULOSKELETAL: No joint effusions. LABORATORY DATA: WBC 6.6, hemoglobin 8.7, platelet count 162, reticulocyte count is 0.7, sodium 139, potassium 3.9, creatinine 2.4, total bilirubin 0.5, calcium 8.5, AST 26, ALT 33, alkaline phosphatase 81, PSA 2.36. IMPRESSION AND PLAN: 1. Anemia with mild elevation in retic, LDH, bili and decreased haptoglobin is suggestive of a mild hemolytic process. Mayte test is negative. I will continue to monitor Hb. Hb now at 7.8. Plan to initiate prednisone if Hb continues to get worse. Considering the chronicity of anemia, I will plan BM bx to r/o primary bone marrow disorders. 2. Bone lesion due to fracture. He also has multiple other lesions in the spine. Thought to be benign. Now s/p L1 to L4 fusion laminectomy L4, Bx L3 and removal of L4 hematoma on 01/24/2017. Path negative for malignancy. Bone scan does not reveal uptake. Myeloma labs normal. Bone survey 01/18/17: Sclerotic foci in the cervical spine. These are likely benign in view of the lack of abnormal uptake on the current bone scan. Distracted Chance type fracture of the L3 vertebral body, better demonstrated on previous CT images. CT chest, abdomen and pelvis did not reveal a malignancy. I d/w IR, he feels that this may just be an acute fracture. MRI reviewed. There is autofusion of L1-L2 and L3-L5 with a distracted fracture extending through the anterior, middle and posterior columns of the L3 vertebrae as well as the posterior elements at the L3 vertebral level compatible with a Chance fracture. There is disruption of the anterior and posterior longitudinal ligaments as well as the posterior ligamentous complex. There is an epidural hematoma resulting in severe spinal canal stenosis and likely cauda equina syndrome. PSA normal. 3. Left renal lesion, u/s ultrasound of the kidney does not reveal malignancy. I discussed that Dr. Perez and PINEDA Coombs MD Feb 05, 2017 17:34
[2017-02-05 19:00] VITALS: BP 124/38
[2017-02-05] MEDS: ATORVASTATIN CALCIUM 40 MG TABLET. PO SCH (20:35)
[2017-02-05 23:00] VITALS: BP 112/44
[2017-02-06] VITALS (11 sets, daily range): BP systolic 107–150; BP diastolic 38–78
[2017-02-06] MEDS: HYDROcodone/APAP 10/325 1 TAB TABLET PO PRN ×3 (01:14→21:35)
[2017-02-06 05:14] LABS: BASO # 0.1 x10^3/uL (0.0-0.2); BASO % 1 % (0-3); EOS % 6 % (0-3); HEMATOCRIT 23.5 % (39.0-53.0); HEMOGLOBIN 7.6 g/dL (13.0-17.5); LYMPH # 1.1 x10^3/uL (1.0-4.8); LYMPH % 15 % (24-48); MEAN CORPUSCULAR HEMOGLOBIN 32 pg (25-35); MEAN CORPUSCULAR HGB CONC 32 g/dL (31-37); MEAN CORPUSCULAR VOLUME 99 fL (79-100); MONO % 8 % (0-9); NEUT % 70 % (31-73); PLATELET COUNT 222 x10^3/uL (140-400); RED BLOOD COUNT 2.36 x10^6/uL (4.30-5.70); WHITE BLOOD COUNT 7.4 x10^3/uL (4.0-11.0)
[2017-02-06] MEDS: CHOLESTYRAMINE/ASPARTAME 4 GM PACKET PO SCH ×2 (05:53→17:51)
[2017-02-06] MEDS: ASPIRIN ENTERIC COATED 81 MG TABLET.DR. PO SCH (08:00)
[2017-02-06 08:44] LABS: ALBUMIN 2.3 g/dL (3.4-5.0); ALBUMIN/GLOBULIN RATIO 0.7 (1.0-1.7); CALCIUM 8.3 mg/dL (8.5-10.1); CREATININE 1.5 mg/dL (0.7-1.3); GFR 46.1; POTASSIUM 3.7 mmol/L (3.5-5.1); TOTAL BILIRUBIN 1.5 mg/dL (0.2-1.0); TOTAL PROTEIN 5.5 g/dL (6.4-8.2)
[2017-02-06] MEDS: SENNOSIDES/DOCUSATE 8.6/50MG TABLET. PO SCH (09:00)
[2017-02-06] MEDS: FOLIC ACID 1 MG TABLET. PO SCH (09:00)
[2017-02-06] MEDS: cloNIDine HCL 0.1 MG TABLET PO SCH ×2 (09:00→21:37)
[2017-02-06] MEDS: METOPROLOL SUCC 24HR ER 25 MG TAB.ER.24H. PO SCH ×2 (09:00→21:36)
[2017-02-06] MEDS: GABAPENTIN 300 MG CAPSULE. PO SCH ×3 (09:00→21:36)
[2017-02-06] MEDS: CHOLECALCIFEROL (VITAMIN D3) 1,000 UNIT TABLET PO SCH (09:00)
[2017-02-06] MEDS: DICLOFENAC SODIUM 1% TOPICAL GEL 100GM TUBE. TP SCH ×4 (09:00→21:38)
[2017-02-06] MEDS: oxyCODONE ER 15 MG TAB.ER.12H PO SCH ×2 (09:00→21:35)
[2017-02-06] MEDS: amLODIPine BESYLATE 5 MG TABLET PO SCH (09:00)
--- NOTE | 2017-02-06 09:12 | PDOC ---
PROGRESS NOTES Subjective Subjective HPI - f/u of Anemia ROS - mild back pain Objective Objective Vital Signs Date Time Temp Pulse Resp B/P (MAP) Pulse Ox O2 Delivery O2 Flow Rate FiO2 02/06/17 07:00 98.2 60 18 119/61 (80) 98 Room Air 98.2 Intake and Output 02/06/17 07:00 Intake Total 800 ml Output Total 250 ml Balance 550 ml Intake Oral 800 ml Output Urine Total 250 ml # Voids 4 Physical Exam Heart: Normal S1, Normal S2 General: Alert, Oriented X3 Lungs: Clear to auscultation Neuro: Normal speech Psych/Mental Status: Mental status NL Assessment Assessment Problems Medical Problems: (1) Hyperbilirubinemia Status: Acute IMPRESSION AND PLAN: 1. Anemia with mild elevation in retic, LDH, bili and decreased haptoglobin is suggestive of a mild hemolytic process. Mayte test is negative. I will continue to monitor Hb. Hb now at 7.8. Plan to initiate prednisone if Hb continues to get worse. Considering the chronicity of anemia, I will plan BM bx to r/o primary bone marrow disorders. Retic normal at 1.4 on 02/06/17 and improved bili 1.5. 2. Bone lesion due to fracture. He also has multiple other lesions in the spine. Thought to be benign. Now s/p L1 to L4 fusion laminectomy L4, Bx L3 and removal of L4 hematoma on 01/24/2017. Path negative for malignancy. Bone scan does not reveal uptake. Myeloma labs normal. Bone survey 01/18/17: Sclerotic foci in the cervical spine. These are likely benign in view of the lack of abnormal uptake on the current bone scan. Distracted Chance type fracture of the L3 vertebral body, better demonstrated on previous CT images. CT chest, abdomen and pelvis did not reveal a malignancy. I d/w IR, he feels that this may just be an acute fracture. MRI reviewed. There is autofusion of L1-L2 and L3-L5 with a distracted fracture extending through the anterior, middle and posterior columns of the L3 vertebrae as well as the posterior elements at the L3 vertebral level compatible with a Chance fracture. There is disruption of the anterior and posterior longitudinal ligaments as well as the posterior ligamentous complex. There is an epidural hematoma resulting in severe spinal canal stenosis and likely cauda equina syndrome. PSA normal. 3. Left renal lesion, u/s ultrasound of the kidney does not reveal malignancy. Comment Review of Relevant I have reviewed the following items bernadine (where applicable) has been applied. Labs Laboratory Tests Test 02/04/17 12:45 02/04/17 14:25 02/04/17 15:56 02/04/17 16:30 White Blood Count 8.8 x10^3/uL (4.0-11.0) Red Blood Count 2.82 x10^6/uL (4.30-5.70) Hemoglobin 8.9 g/dL (13.0-17.5) Hematocrit 28.0 % (39.0-53.0) Mean Corpuscular Volume 99 fL (79-100) Mean Corpuscular Hemoglobin 32 pg (25-35) Mean Corpuscular Hemoglobin Concent 32 g/dL (31-37) Red Cell Distribution Width 19.2 % (11.5-14.5) Platelet Count 284 x10^3/uL (140-400) Neutrophils (%) (Auto) 81 % (31-73) Lymphocytes (%) (Auto) 8 % (24-48) Monocytes (%) (Auto) 6 % (0-9) Eosinophils (%) (Auto) 4 % (0-3) Basophils (%) (Auto) 1 % (0-3) Neutrophils # (Auto) 7.2 x10^3uL (1.8-7.7) Lymphocytes # (Auto) 0.7 x10^3/uL (1.0-4.8) Monocytes # (Auto) 0.5 x10^3/uL (0.0-1.1) Eosinophils # (Auto) 0.4 x10^3/uL (0.0-0.7) Basophils # (Auto) 0.0 x10^3/uL (0.0-0.2) Reticulocyte Count (auto) 3.4 % (0.5-2.5) Haptoglobin <10 mg/dL (34-200) Prothrombin Time 13.4 SEC (11.7-14.0) Prothromb Time International Ratio 1.1 (0.8-1.1) Sodium Level 137 mmol/L (136-145) Potassium Level 4.1 mmol/L (3.5-5.1) Chloride Level 99 mmol/L (98-107) Carbon Dioxide Level 22 mmol/L (21-32) Anion Gap 16 (6-14) Blood Urea Nitrogen 25 mg/dL (8-26) Creatinine 1.7 mg/dL (0.7-1.3) Estimated GFR (Cockcroft-Gault) 39.9 Glucose Level 109 mg/dL (70-99) Calcium Level 8.6 mg/dL (8.5-10.1) Magnesium Level 1.8 mg/dL (1.8-2.4) Iron Level 46 ug/dL (65-175) Total Iron Binding Capacity 349 ug/dL (250-450) Iron Saturation 13 % (15-34) Transferrin 217 mg/dL (200-370) Ferritin 238 ng/mL (26-388) Total Bilirubin 2.5 mg/dL (0.2-1.0) Direct Bilirubin 0.5 mg/dL (0.0-0.2) Aspartate Amino Transf (AST/SGOT) 24 U/L (15-37) Alanine Aminotransferase (ALT/SGPT) 21 U/L (16-63) Alkaline Phosphatase 131 U/L (46-116) Lactate Dehydrogenase 290 U/L (85-227) Creatine Kinase 62 U/L (39-308) Creatine Kinase MB (Mass) 0.8 ng/mL (0.0-3.6) Creatine Kinase MB Relative Index % (0-4) Troponin I Quantitative < 0.017 ng/mL (0.000-0.055) BG-Hpr-I-Type Natriuretic Peptide 3157 pg/mL (0-124) Total Protein 6.3 g/dL (6.4-8.2) Albumin 2.6 g/dL (3.4-5.0) Lipase 57 U/L (73-393) Urine Collection Type Unknown Urine Color Dk yellow Urine Clarity Hazy Urine pH 5.5 Urine Specific [place] >=1.030 Urine Protein 30 mg/dL (NEG-TRACE) Urine Glucose (UA) Negative mg/dL (NEG) Urine Ketones (Stick) Trace mg/dL (NEG) Urine Blood Negative (NEG) Urine Nitrite Negative (NEG) Urine Bilirubin Small (NEG) Urine Urobilinogen Dipstick 1.0 mg/dL (0.2 mg/dL) Urine Leukocyte Esterase Negative (NEG) Urine RBC Rare /HPF (0-2) Urine WBC 0 /HPF (0-4) Urine Squamous Epithelial Cells Few /LPF Urine Bacteria 0 /HPF (0-FEW) Urine Hyaline Casts Occasional /HPF Urine Mucus Marked /LPF Glucose (Fingerstick) 108 mg/dL (70-99) Nasal Screen MRSA (PCR) Negative (Negative) Test 02/04/17 20:40 02/05/17 03:30 02/05/17 07:44 02/05/17 11:40 Troponin I Quantitative < 0.017 ng/mL (0.000-0.055) < 0.017 ng/mL (0.000-0.055) White Blood Count 6.9 x10^3/uL (4.0-11.0) Red Blood Count 2.43 x10^6/uL (4.30-5.70) Hemoglobin 7.8 g/dL (13.0-17.5) Hematocrit 24.2 % (39.0-53.0) Mean Corpuscular Volume 100 fL (79-100) Mean Corpuscular Hemoglobin 32 pg (25-35) Mean Corpuscular Hemoglobin Concent 32 g/dL (31-37) Red Cell Distribution Width 18.7 % (11.5-14.5) Platelet Count 225 x10^3/uL (140-400) Neutrophils (%) (Auto) 68 % (31-73) Lymphocytes (%) (Auto) 17 % (24-48) Monocytes (%) (Auto) 9 % (0-9) Eosinophils (%) (Auto) 6 % (0-3) Basophils (%) (Auto) 1 % (0-3) Neutrophils # (Auto) 4.7 x10^3uL (1.8-7.7) Lymphocytes # (Auto) 1.2 x10^3/uL (1.0-4.8) Monocytes # (Auto) 0.6 x10^3/uL (0.0-1.1) Eosinophils # (Auto) 0.4 x10^3/uL (0.0-0.7) Basophils # (Auto) 0.1 x10^3/uL (0.0-0.2) Sodium Level 140 mmol/L (136-145) Potassium Level 3.9 mmol/L (3.5-5.1) Chloride Level 106 mmol/L (98-107) Carbon Dioxide Level 27 mmol/L (21-32) Anion Gap 7 (6-14) Blood Urea Nitrogen 27 mg/dL (8-26) Creatinine 1.4 mg/dL (0.7-1.3) Estimated GFR (Cockcroft-Gault) 50.0 Glucose Level 95 mg/dL (70-99) Calcium Level 8.3 mg/dL (8.5-10.1) Glucose (Fingerstick) 105 mg/dL (70-99) 103 mg/dL (70-99) Test 02/05/17 16:46 02/05/17 21:36 02/06/17 04:00 02/06/17 07:32 Glucose (Fingerstick) 113 mg/dL (70-99) 109 mg/dL (70-99) 105 mg/dL (70-99) White Blood Count 7.4 x10^3/uL (4.0-11.0) Red Blood Count 2.36 x10^6/uL (4.30-5.70) Hemoglobin 7.6 g/dL (13.0-17.5) Hematocrit 23.5 % (39.0-53.0) Mean Corpuscular Volume 99 fL (79-100) Mean Corpuscular Hemoglobin 32 pg (25-35) Mean Corpuscular Hemoglobin Concent 32 g/dL (31-37) Red Cell Distribution Width 19.0 % (11.5-14.5) Platelet Count 222 x10^3/uL (140-400) Neutrophils (%) (Auto) 70 % (31-73) Lymphocytes (%) (Auto) 15 % (24-48) Monocytes (%) (Auto) 8 % (0-9) Eosinophils (%) (Auto) 6 % (0-3) Basophils (%) (Auto) 1 % (0-3) Neutrophils # (Auto) 5.2 x10^3uL (1.8-7.7) Lymphocytes # (Auto) 1.1 x10^3/uL (1.0-4.8) Monocytes # (Auto) 0.6 x10^3/uL (0.0-1.1) Eosinophils # (Auto) 0.4 x10^3/uL (0.0-0.7) Basophils # (Auto) 0.1 x10^3/uL (0.0-0.2) Reticulocyte Count (auto) 1.4 % (0.5-2.5) Sodium Level 138 mmol/L (136-145) Potassium Level 3.7 mmol/L (3.5-5.1) Chloride Level 106 mmol/L (98-107) Carbon Dioxide Level 24 mmol/L (21-32) Anion Gap 8 (6-14) Blood Urea Nitrogen 29 mg/dL (8-26) Creatinine 1.5 mg/dL (0.7-1.3) Estimated GFR (Cockcroft-Gault) 46.1 BUN/Creatinine Ratio 19 (6-20) Glucose Level 95 mg/dL (70-99) Calcium Level 8.3 mg/dL (8.5-10.1) Total Bilirubin 1.5 mg/dL (0.2-1.0) Aspartate Amino Transf (AST/SGOT) 21 U/L (15-37) Alanine Aminotransferase (ALT/SGPT) 17 U/L (16-63) Alkaline Phosphatase 115 U/L (46-116) Lactate Dehydrogenase 262 U/L (85-227) Total Protein 5.5 g/dL (6.4-8.2) Albumin 2.3 g/dL (3.4-5.0) Albumin/Globulin Ratio 0.7 (1.0-1.7) Laboratory Tests Test 02/05/17 11:40 02/05/17 16:46 02/05/17 21:36 02/06/17 04:00 Glucose (Fingerstick) 103 mg/dL (70-99) 113 mg/dL (70-99) 109 mg/dL (70-99) White Blood Count 7.4 x10^3/uL (4.0-11.0) Red Blood Count 2.36 x10^6/uL (4.30-5.70) Hemoglobin 7.6 g/dL (13.0-17.5) Hematocrit 23.5 % (39.0-53.0) Mean Corpuscular Volume 99 fL (79-100) Mean Corpuscular Hemoglobin 32 pg (25-35) Mean Corpuscular Hemoglobin Concent 32 g/dL (31-37) Red Cell Distribution Width 19.0 % (11.5-14.5) Platelet Count 222 x10^3/uL (140-400) Neutrophils (%) (Auto) 70 % (31-73) Lymphocytes (%) (Auto) 15 % (24-48) Monocytes (%) (Auto) 8 % (0-9) Eosinophils (%) (Auto) 6 % (0-3) Basophils (%) (Auto) 1 % (0-3) Neutrophils # (Auto) 5.2 x10^3uL (1.8-7.7) Lymphocytes # (Auto) 1.1 x10^3/uL (1.0-4.8) Monocytes # (Auto) 0.6 x10^3/uL (0.0-1.1) Eosinophils # (Auto) 0.4 x10^3/uL (0.0-0.7) Basophils # (Auto) 0.1 x10^3/uL (0.0-0.2) Reticulocyte Count (auto) 1.4 % (0.5-2.5) Sodium Level 138 mmol/L (136-145) Potassium Level 3.7 mmol/L (3.5-5.1) Chloride Level 106 mmol/L (98-107) Carbon Dioxide Level 24 mmol/L (21-32) Anion Gap 8 (6-14) Blood Urea Nitrogen 29 mg/dL (8-26) Creatinine 1.5 mg/dL (0.7-1.3) Estimated GFR (Cockcroft-Gault) 46.1 BUN/Creatinine Ratio 19 (6-20) Glucose Level 95 mg/dL (70-99) Calcium Level 8.3 mg/dL (8.5-10.1) Total Bilirubin 1.5 mg/dL (0.2-1.0) Aspartate Amino Transf (AST/SGOT) 21 U/L (15-37) Alanine Aminotransferase (ALT/SGPT) 17 U/L (16-63) Alkaline Phosphatase 115 U/L (46-116) Lactate Dehydrogenase 262 U/L (85-227) Total Protein 5.5 g/dL (6.4-8.2) Albumin 2.3 g/dL (3.4-5.0) Albumin/Globulin Ratio 0.7 (1.0-1.7) Test 02/06/17 07:32 Glucose (Fingerstick) 105 mg/dL (70-99) Medications Current Medications Morphine Sulfate 2 mg PRN Q15MIN PRN IV/SQ PAIN GREATER THAN 3/10 Last administered on 02/04/17 13:44; Start 02/04/17 at 13:15; Stop 02/04/17 at 15 :05; Status DC Ondansetron HCl (Zofran) 4 mg 1X ONCE IV Last administered on 02/04/17 13:26 ; Start 02/04/17 at 13:15; Stop 02/04/17 at 13:16; Status DC Ondansetron HCl (Zofran) 4 mg PRN Q8HRS PRN IV NAUSEA/VOMITING; Start at 15:00; Stop 02/05/17 at 14:59; Status DC Morphine Sulfate 2 mg PRN Q2HR PRN IV PAIN Last administered on 02/04/17 17: 49; Start 02/04/17 at 15:00; Stop 02/05/17 at 14:59; Status DC Amlodipine Besylate (Norvasc) 5 mg DAILY PO Last administered on 02/05/17 08: 32; Start 02/05/17 at 09:00 Aspirin (Ecotrin) 81 mg [id number] PO Last administered on 02/05/17 08:31; Start 02/05/17 at 08:00 Atorvastatin Calcium (Lipitor) 40 mg QHS PO Last administered on 02/05/17 20: 35; Start 02/04/17 at 21:00 Vitamin D (Vitamin D3) 2,000 unit DAILY PO Last administered on 02/05/17 08: 32; Start 02/05/17 at 09:00 Clonidine HCl (Catapres) 0.1 mg BID PO Last administered on 02/05/17 20:36; Start 02/04/17 at 21:00 Diclofenac Sodium (Voltaren) 1 jose a QID TP Last administered on 02/05/17 20:37 ; Start 02/04/17 at 21:00 Folic Acid (Folic Acid) 1 mg DAILY PO Last administered on 02/05/17 08:32; Start 02/05/17 at 09:00 Acetaminophen/ Hydrocodone Bitart (Lortab 10/325) 1 tab PRN Q6HRS PRN PO MODERATE PAIN Last administered on 02/06/17 01:14; Start 02/04/17 at 19:30 Lidocaine (Lidoderm) 1 patch DAILY TP Last administered on 02/05/17 08:34; Start 02/05/17 at 09:00 Loperamide HCl (Imodium) 2 mg PRN QID PRN PO DIARRHEA; Start 02/04/17 at 19:30 ; Stop 02/05/17 at 13:29; Status DC Metformin HCl (Glucophage) 1,000 mg BIDWMEALS PO Last administered on 17:35; Start 02/05/17 at 08:00 Metoprolol Succinate (Toprol Xl) 25 mg BID PO Last administered on 02/05/17 08:32; Start 02/04/17 at 21:00 Oxycodone HCl (OxyCONTIN) 30 mg Q12HR PO Last administered on 02/05/17 20:36 ; Start 02/04/17 at 21:00 Senna/Docusate Sodium (Senna Plus) 2 tab DAILY PO ; Start 02/05/17 at 09:00 Gabapentin (Neurontin) 600 mg TID PO Last administered on 02/05/17 20:37; Start 02/04/17 at 21:00 Cholestyramine Resin (Questran Light) 4 gm BID PO ; Start 02/04/17 at 21:15; Stop 02/05/17 at 01:39; Status DC Loperamide HCl (Imodium) 4 mg PRN Q15MIN PRN PO DIARRHEA; Start 02/04/17 at 21 :15 Cholestyramine Resin (Questran Light) 4 gm [id number] PO Last administered on 05:53; Start 02/05/17 at 06:00 Active Scripts Active Metoprolol Succinate ( Xl ) (Metoprolol Succinate) 25 Mg Tab.er.24h 25 Mg PO BID 30 Days Hydrocodone-Apap 10-325 (Hydrocodone Bit/Acetaminophen) 1 Each Tablet 1 Tab PO PRN Q6HRS PRN Senna-Time S Tablet (Sennosides/Docusate Sodium) 1 Each Tablet 2 Tab PO DAILY 10 Days Oxycontin (Oxycodone HCl) 15 Mg Tab.er.12h 30 Mg PO Q12HR Aspirin Ec (Aspirin) 81 Mg Tablet.dr 81 Mg PO DAILYWBKFT 30 Days Amlodipine Besylate 5 Mg Tablet 5 Mg PO DAILY 30 Days Reported Loperamide (Loperamide Hcl) 2 Mg Capsule 2 Mg PO PRN QID PRN Voltaren (Diclofenac Sodium) 100 Gm Gel..gram. 1 Gm TP QID Lidocaine 1 Each Adh..patch 1 Each TP DAILY Vitamin D3 (Cholecalciferol (Vitamin D3)) 1,000 Unit Tablet 2,000 Unit PO Humira (Adalimumab) 40 Mg/0.8 Ml Pen.ij.kit 1 Syr SQ Q2WKS Folbic Rf Tablet (B12/Levomefolate Calcium/B-6) 1 Each Tablet 1 Each PO Omeprazole 40 Mg Capsule.dr 1 Cap PO DAILY Cholestyramine Packet (Cholestyramine (With Sugar)) 4 Gm Powd.pack 4 Gm PO Gabapentin 600 Mg Tablet 600 Mg PO TID Folic Acid 1 Mg Tablet 1 Tab PO DAILY Clonidine Hcl 0.1 Mg Tablet 0.1 Mg PO BID Metformin Hcl 1,000 Mg Tablet 1,000 Mg PO BIDWMEALS Atorvastatin Calcium 40 Mg Tablet 1 Tab PO DAILY Vitals/I & O Vital Sign - Last 24 Hours 02/05/17 02/05/17 02/05/17 02/05/17 11:00 14:09 15:00 19:00 Temp 98.5 98.8 99.9 98.5 98.8 99.9 Pulse 54 67 53 Resp 18 18 18 B/P (MAP) 105/60 (75) 104/62 (76) 124/38 (66) Pulse Ox 96 97 91 O2 Delivery Room Air Room Air Room Air Room Air 02/05/17 02/05/17 02/05/17 02/05/17 19:40 20:36 20:36 23:00 Pulse 53 53 Resp 16 B/P (MAP) 124/38 124/38 O2 Delivery Room Air Room Air 02/05/17 02/06/17 02/06/17 02/06/17 23:00 00:35 01:14 02:15 Temp 98.1 98.1 Pulse 52 Resp 18 16 16 16 B/P (MAP) 112/44 (66) Pulse Ox 98 O2 Delivery Room Air Room Air Room Air Room Air 02/06/17 02/06/17 03:00 07:00 Temp 96.6 98.2 96.6 98.2 Pulse 69 60 Resp 18 18 B/P (MAP) 107/38 (61) 119/61 (80) Pulse Ox 97 98 O2 Delivery Room Air Room Air Intake and Output 02/05/17 02/05/17 02/06/17 15:00 23:00 07:00 Intake Total 100 ml 700 ml Output Total 100 ml 150 ml Balance 0 ml 550 ml PINEDA FIELDS MD Feb 06, 2017 09:12
[2017-02-06] MEDS ORDERED: LIDOCAINE 1% / SOD BICARB 8.4% 20 ML VIAL. IJ ONE ×2 (11:06→11:15)
[2017-02-06] MEDS ORDERED: fentaNYL PF VIAL 100 MCG/2 ML VIAL ONE (11:10)
[2017-02-06] MEDS ORDERED: MIDAZOLAM HCL/PF 2 MG/2 ML VIAL. ONE (11:10)
[2017-02-06] MEDS ORDERED: fentaNYL PF VIAL 100 MCG/2 ML VIAL IV ONE (11:15)
[2017-02-06] MEDS ORDERED: MIDAZOLAM HCL/PF 2 MG/2 ML VIAL. IV ONE (11:15)
--- NOTE | 2017-02-06 12:28 | RAD ---
CT-guided bone marrow biopsy. 02/06/2017 12:24 PM Indication: chronic anemia - eval for MDS Discussion: The risks and benefits of the procedure, including but not limited to, bleeding and infection were discussed patient. Informed consent was obtained. The patient was brought to the CT scanner and placed in the prone position. A timeout procedure was performed. Banking Consultant CT imaging of the pelvis demonstrated left ilium amenable to bone marrow biopsy. The overlying soft tissues were prepped and draped using maximum sterile barrier technique. 1% lidocaine without epinephrine was administered for local anesthesia. Under intermittent CT guidance, an OncControl needle was advanced into the bone marrow of the left iliac crest. 2 Aspirates and 1 core biopsy samples were obtained. Samples were delivered to pathology was present at the time of procedure. The needle was removed and manual pressure held to achieve hemostasis. No immediate complications were identified. The procedure was performed under conscious sedation including continuous cardiopulmonary monitoring via dedicated sedation nurse. Sedation time: 20 minutes Impression: Successful CT-guided bone marrow biopsy of the left iliac crest . PQRS Compliance Statement: One or more of the following individualized dose reduction techniques were utilized for this examination: 1. Automated exposure control 2. Adjustment of the mA and/or kV according to patient size 3. Use of iterative reconstruction technique
--- NOTE | 2017-02-06 13:53 | PDOC ---
PROGRESS NOTES Chief Complaint Chief Complaint (1) Hyperbilirubinemia Status: Acute History of Present Illness History of Present Illness Pt feeling well no jaundice Pt and inquired about HH levels Followed by Dr. Servin Heme/Oncology Pt undergoing BM Bx today, awaiting results HH continue to decline with current labs Hgb 7.6 Hct 24.2 23.5 Vitals Vitals Vital Signs Date Time Temp Pulse Resp B/P (MAP) Pulse Ox O2 Delivery O2 Flow Rate FiO2 02/06/17 11:41 74 18 99 Nasal Cannula 2.0 02/06/17 11:00 98.0 113/51 (71) 98.0 Physical Exam General: Alert, Oriented X3, No acute distress Heart: Normal S1, Normal S2 Lungs: Clear, Other (No wheezes or rales) Extremities: No clubbing, No cyanosis, No edema Skin: No rashes, No significant lesion Labs LABS Laboratory Tests Test 02/05/17 16:46 02/05/17 21:36 02/06/17 04:00 02/06/17 07:32 Glucose (Fingerstick) 113 mg/dL (70-99) 109 mg/dL (70-99) 105 mg/dL (70-99) White Blood Count 7.4 x10^3/uL (4.0-11.0) Red Blood Count 2.36 x10^6/uL (4.30-5.70) Hemoglobin 7.6 g/dL (13.0-17.5) Hematocrit 23.5 % (39.0-53.0) Mean Corpuscular Volume 99 fL (79-100) Mean Corpuscular Hemoglobin 32 pg (25-35) Mean Corpuscular Hemoglobin Concent 32 g/dL (31-37) Red Cell Distribution Width 19.0 % (11.5-14.5) Platelet Count 222 x10^3/uL (140-400) Neutrophils (%) (Auto) 70 % (31-73) Lymphocytes (%) (Auto) 15 % (24-48) Monocytes (%) (Auto) 8 % (0-9) Eosinophils (%) (Auto) 6 % (0-3) Basophils (%) (Auto) 1 % (0-3) Neutrophils # (Auto) 5.2 x10^3uL (1.8-7.7) Lymphocytes # (Auto) 1.1 x10^3/uL (1.0-4.8) Monocytes # (Auto) 0.6 x10^3/uL (0.0-1.1) Eosinophils # (Auto) 0.4 x10^3/uL (0.0-0.7) Basophils # (Auto) 0.1 x10^3/uL (0.0-0.2) Reticulocyte Count (auto) 1.4 % (0.5-2.5) Sodium Level 138 mmol/L (136-145) Potassium Level 3.7 mmol/L (3.5-5.1) Chloride Level 106 mmol/L (98-107) Carbon Dioxide Level 24 mmol/L (21-32) Anion Gap 8 (6-14) Blood Urea Nitrogen 29 mg/dL (8-26) Creatinine 1.5 mg/dL (0.7-1.3) Estimated GFR (Cockcroft-Gault) 46.1 BUN/Creatinine Ratio 19 (6-20) Glucose Level 95 mg/dL (70-99) Calcium Level 8.3 mg/dL (8.5-10.1) Total Bilirubin 1.5 mg/dL (0.2-1.0) Aspartate Amino Transf (AST/SGOT) 21 U/L (15-37) Alanine Aminotransferase (ALT/SGPT) 17 U/L (16-63) Alkaline Phosphatase 115 U/L (46-116) Lactate Dehydrogenase 262 U/L (85-227) Total Protein 5.5 g/dL (6.4-8.2) Albumin 2.3 g/dL (3.4-5.0) Albumin/Globulin Ratio 0.7 (1.0-1.7) Test 02/06/17 12:34 Glucose (Fingerstick) 104 mg/dL (70-99) Review of Systems Review of Systems General: No Fatigue, Hunger CV: No Chest Pain, Palpitations Assessment and Plan Assessmemt and Plan Problems Medical Problems: (1) Hyperbilirubinemia Status: Acute Plan: Await results of BM Bx Continue Home Meds Pt/OT Recheck Labs Problems: Comment Review of Relevant I have reviewed the following items bernadine (where applicable) has been applied. Labs Laboratory Tests Test 02/04/17 14:25 02/04/17 15:56 02/04/17 16:30 02/04/17 20:40 Urine Collection Type Unknown Urine Color Dk yellow Urine Clarity Hazy Urine pH 5.5 Urine Specific [place] >=1.030 Urine Protein 30 mg/dL (NEG-TRACE) Urine Glucose (UA) Negative mg/dL (NEG) Urine Ketones (Stick) Trace mg/dL (NEG) Urine Blood Negative (NEG) Urine Nitrite Negative (NEG) Urine Bilirubin Small (NEG) Urine Urobilinogen Dipstick 1.0 mg/dL (0.2 mg/dL) Urine Leukocyte Esterase Negative (NEG) Urine RBC Rare /HPF (0-2) Urine WBC 0 /HPF (0-4) Urine Squamous Epithelial Cells Few /LPF Urine Bacteria 0 /HPF (0-FEW) Urine Hyaline Casts Occasional /HPF Urine Mucus Marked /LPF Glucose (Fingerstick) 108 mg/dL (70-99) Nasal Screen MRSA (PCR) Negative (Negative) Troponin I Quantitative < 0.017 ng/mL (0.000-0.055) Test 02/05/17 03:30 02/05/17 07:44 02/05/17 11:40 02/05/17 16:46 White Blood Count 6.9 x10^3/uL (4.0-11.0) Red Blood Count 2.43 x10^6/uL (4.30-5.70) Hemoglobin 7.8 g/dL (13.0-17.5) Hematocrit 24.2 % (39.0-53.0) Mean Corpuscular Volume 100 fL (79-100) Mean Corpuscular Hemoglobin 32 pg (25-35) Mean Corpuscular Hemoglobin Concent 32 g/dL (31-37) Red Cell Distribution Width 18.7 % (11.5-14.5) Platelet Count 225 x10^3/uL (140-400) Neutrophils (%) (Auto) 68 % (31-73) Lymphocytes (%) (Auto) 17 % (24-48) Monocytes (%) (Auto) 9 % (0-9) Eosinophils (%) (Auto) 6 % (0-3) Basophils (%) (Auto) 1 % (0-3) Neutrophils # (Auto) 4.7 x10^3uL (1.8-7.7) Lymphocytes # (Auto) 1.2 x10^3/uL (1.0-4.8) Monocytes # (Auto) 0.6 x10^3/uL (0.0-1.1) Eosinophils # (Auto) 0.4 x10^3/uL (0.0-0.7) Basophils # (Auto) 0.1 x10^3/uL (0.0-0.2) Sodium Level 140 mmol/L (136-145) Potassium Level 3.9 mmol/L (3.5-5.1) Chloride Level 106 mmol/L (98-107) Carbon Dioxide Level 27 mmol/L (21-32) Anion Gap 7 (6-14) Blood Urea Nitrogen 27 mg/dL (8-26) Creatinine 1.4 mg/dL (0.7-1.3) Estimated GFR (Cockcroft-Gault) 50.0 Glucose Level 95 mg/dL (70-99) Calcium Level 8.3 mg/dL (8.5-10.1) Troponin I Quantitative < 0.017 ng/mL (0.000-0.055) Glucose (Fingerstick) 105 mg/dL (70-99) 103 mg/dL (70-99) 113 mg/dL (70-99) Test 02/05/17 21:36 02/06/17 04:00 02/06/17 07:32 02/06/17 12:34 Glucose (Fingerstick) 109 mg/dL (70-99) 105 mg/dL (70-99) 104 mg/dL (70-99) White Blood Count 7.4 x10^3/uL (4.0-11.0) Red Blood Count 2.36 x10^6/uL (4.30-5.70) Hemoglobin 7.6 g/dL (13.0-17.5) Hematocrit 23.5 % (39.0-53.0) Mean Corpuscular Volume 99 fL (79-100) Mean Corpuscular Hemoglobin 32 pg (25-35) Mean Corpuscular Hemoglobin Concent 32 g/dL (31-37) Red Cell Distribution Width 19.0 % (11.5-14.5) Platelet Count 222 x10^3/uL (140-400) Neutrophils (%) (Auto) 70 % (31-73) Lymphocytes (%) (Auto) 15 % (24-48) Monocytes (%) (Auto) 8 % (0-9) Eosinophils (%) (Auto) 6 % (0-3) Basophils (%) (Auto) 1 % (0-3) Neutrophils # (Auto) 5.2 x10^3uL (1.8-7.7) Lymphocytes # (Auto) 1.1 x10^3/uL (1.0-4.8) Monocytes # (Auto) 0.6 x10^3/uL (0.0-1.1) Eosinophils # (Auto) 0.4 x10^3/uL (0.0-0.7) Basophils # (Auto) 0.1 x10^3/uL (0.0-0.2) Reticulocyte Count (auto) 1.4 % (0.5-2.5) Sodium Level 138 mmol/L (136-145) Potassium Level 3.7 mmol/L (3.5-5.1) Chloride Level 106 mmol/L (98-107) Carbon Dioxide Level 24 mmol/L (21-32) Anion Gap 8 (6-14) Blood Urea Nitrogen 29 mg/dL (8-26) Creatinine 1.5 mg/dL (0.7-1.3) Estimated GFR (Cockcroft-Gault) 46.1 BUN/Creatinine Ratio 19 (6-20) Glucose Level 95 mg/dL (70-99) Calcium Level 8.3 mg/dL (8.5-10.1) Total Bilirubin 1.5 mg/dL (0.2-1.0) Aspartate Amino Transf (AST/SGOT) 21 U/L (15-37) Alanine Aminotransferase (ALT/SGPT) 17 U/L (16-63) Alkaline Phosphatase 115 U/L (46-116) Lactate Dehydrogenase 262 U/L (85-227) Total Protein 5.5 g/dL (6.4-8.2) Albumin 2.3 g/dL (3.4-5.0) Albumin/Globulin Ratio 0.7 (1.0-1.7) Laboratory Tests Test 02/05/17 16:46 02/05/17 21:36 02/06/17 04:00 02/06/17 07:32 Glucose (Fingerstick) 113 mg/dL (70-99) 109 mg/dL (70-99) 105 mg/dL (70-99) White Blood Count 7.4 x10^3/uL (4.0-11.0) Red Blood Count 2.36 x10^6/uL (4.30-5.70) Hemoglobin 7.6 g/dL (13.0-17.5) Hematocrit 23.5 % (39.0-53.0) Mean Corpuscular Volume 99 fL (79-100) Mean Corpuscular Hemoglobin 32 pg (25-35) Mean Corpuscular Hemoglobin Concent 32 g/dL (31-37) Red Cell Distribution Width 19.0 % (11.5-14.5) Platelet Count 222 x10^3/uL (140-400) Neutrophils (%) (Auto) 70 % (31-73) Lymphocytes (%) (Auto) 15 % (24-48) Monocytes (%) (Auto) 8 % (0-9) Eosinophils (%) (Auto) 6 % (0-3) Basophils (%) (Auto) 1 % (0-3) Neutrophils # (Auto) 5.2 x10^3uL (1.8-7.7) Lymphocytes # (Auto) 1.1 x10^3/uL (1.0-4.8) Monocytes # (Auto) 0.6 x10^3/uL (0.0-1.1) Eosinophils # (Auto) 0.4 x10^3/uL (0.0-0.7) Basophils # (Auto) 0.1 x10^3/uL (0.0-0.2) Reticulocyte Count (auto) 1.4 % (0.5-2.5) Sodium Level 138 mmol/L (136-145) Potassium Level 3.7 mmol/L (3.5-5.1) Chloride Level 106 mmol/L (98-107) Carbon Dioxide Level 24 mmol/L (21-32) Anion Gap 8 (6-14) Blood Urea Nitrogen 29 mg/dL (8-26) Creatinine 1.5 mg/dL (0.7-1.3) Estimated GFR (Cockcroft-Gault) 46.1 BUN/Creatinine Ratio 19 (6-20) Glucose Level 95 mg/dL (70-99) Calcium Level 8.3 mg/dL (8.5-10.1) Total Bilirubin 1.5 mg/dL (0.2-1.0) Aspartate Amino Transf (AST/SGOT) 21 U/L (15-37) Alanine Aminotransferase (ALT/SGPT) 17 U/L (16-63) Alkaline Phosphatase 115 U/L (46-116) Lactate Dehydrogenase 262 U/L (85-227) Total Protein 5.5 g/dL (6.4-8.2) Albumin 2.3 g/dL (3.4-5.0) Albumin/Globulin Ratio 0.7 (1.0-1.7) Test 02/06/17 12:34 Glucose (Fingerstick) 104 mg/dL (70-99) Medications Current Medications Morphine Sulfate 2 mg PRN Q15MIN PRN IV/SQ PAIN GREATER THAN 3/10 Last administered on 02/04/17 13:44; Start 02/04/17 at 13:15; Stop 02/04/17 at 15 :05; Status DC Ondansetron HCl (Zofran) 4 mg 1X ONCE IV Last administered on 02/04/17 13:26 ; Start 02/04/17 at 13:15; Stop 02/04/17 at 13:16; Status DC Ondansetron HCl (Zofran) 4 mg PRN Q8HRS PRN IV NAUSEA/VOMITING; Start at 15:00; Stop 02/05/17 at 14:59; Status DC Morphine Sulfate 2 mg PRN Q2HR PRN IV PAIN Last administered on 02/04/17 17: 49; Start 02/04/17 at 15:00; Stop 02/05/17 at 14:59; Status DC Amlodipine Besylate (Norvasc) 5 mg DAILY PO Last administered on 02/05/17 08: 32; Start 02/05/17 at 09:00 Aspirin (Ecotrin) 81 mg DAILYWBKFT PO Last administered on 02/05/17 08:31; Start 02/05/17 at 08:00 Atorvastatin Calcium (Lipitor) 40 mg QHS PO Last administered on 02/05/17 20: 35; Start 02/04/17 at 21:00 Vitamin D (Vitamin D3) 2,000 unit DAILY PO Last administered on 02/05/17 08: 32; Start 02/05/17 at 09:00 Clonidine HCl (Catapres) 0.1 mg BID PO Last administered on 02/05/17 20:36; Start 02/04/17 at 21:00 Diclofenac Sodium (Voltaren) 1 jose a QID TP Last administered on 02/05/17 20:37 ; Start 02/04/17 at 21:00 Folic Acid (Folic Acid) 1 mg DAILY PO Last administered on 02/05/17 08:32; Start 02/05/17 at 09:00 Acetaminophen/ Hydrocodone Bitart (Lortab 10/325) 1 tab PRN Q6HRS PRN PO MODERATE PAIN Last administered on 02/06/17 01:14; Start 02/04/17 at 19:30 Lidocaine (Lidoderm) 1 patch DAILY TP Last administered on 02/05/17 08:34; Start 02/05/17 at 09:00 Loperamide HCl (Imodium) 2 mg PRN QID PRN PO DIARRHEA; Start 02/04/17 at 19:30 ; Stop 02/05/17 at 13:29; Status DC Metformin HCl (Glucophage) 1,000 mg BIDWMEALS PO Last administered on 17:35; Start 02/05/17 at 08:00 Metoprolol Succinate (Toprol Xl) 25 mg BID PO Last administered on 02/05/17 08:32; Start 02/04/17 at 21:00 Oxycodone HCl (OxyCONTIN) 30 mg Q12HR PO Last administered on 02/05/17 20:36 ; Start 02/04/17 at 21:00 Senna/Docusate Sodium (Senna Plus) 2 tab DAILY PO ; Start 02/05/17 at 09:00 Gabapentin (Neurontin) 600 mg TID PO Last administered on 02/05/17 20:37; Start 02/04/17 at 21:00 Cholestyramine Resin (Questran Light) 4 gm BID PO ; Start 02/04/17 at 21:15; Stop 02/05/17 at 01:39; Status DC Loperamide HCl (Imodium) 4 mg PRN Q15MIN PRN PO DIARRHEA; Start 02/04/17 at 21 :15 Cholestyramine Resin (Questran Light) 4 gm [id number] PO Last administered on 05:53; Start 02/05/17 at 06:00 Lidocaine/Sodium Bicarbonate (Buffered Lidocaine 1%) 20 ml 1X ONCE IJ Last administered on 02/06/17 11:39; Start 02/06/17 at 11:15; Stop 02/06/17 at 11 :18; Status DC Midazolam HCl (Versed) 2 mg 1X ONCE IV Last administered on 02/06/17 11:40; Start 02/06/17 at 11:15; Stop 02/06/17 at 11:18; Status DC Fentanyl Citrate (Fentanyl 2ml Vial) 100 mcg 1X ONCE IV Last administered on 02/06/17 11:41; Start 02/06/17 at 11:15; Stop 02/06/17 at 11:18; Status DC Active Scripts Active Metoprolol Succinate ( Xl ) (Metoprolol Succinate) 25 Mg Tab.er.24h 25 Mg PO BID 30 Days Hydrocodone-Apap 10-325 (Hydrocodone Bit/Acetaminophen) 1 Each Tablet 1 Tab PO PRN Q6HRS PRN Senna-Time S Tablet (Sennosides/Docusate Sodium) 1 Each Tablet 2 Tab PO DAILY 10 Days Oxycontin (Oxycodone HCl) 15 Mg Tab.er.12h 30 Mg PO Q12HR Aspirin Ec (Aspirin) 81 Mg Tablet. 81 Mg PO DAILYWBKFT 30 Days Amlodipine Besylate 5 Mg Tablet 5 Mg PO DAILY 30 Days Reported Loperamide (Loperamide Hcl) 2 Mg Capsule 2 Mg PO PRN QID PRN Voltaren (Diclofenac Sodium) 100 Gm Gel..gram. 1 Gm TP QID Lidocaine 1 Each Adh..patch 1 Each TP DAILY Vitamin D3 (Cholecalciferol (Vitamin D3)) 1,000 Unit Tablet 2,000 Unit PO Humira (Adalimumab) 40 Mg/0.8 Ml Pen.ij.kit 1 Syr SQ Q2WKS Folbic Rf Tablet (B12/Levomefolate Calcium/B-6) 1 Each Tablet 1 Each PO Omeprazole 40 Mg Capsule. 1 Cap PO DAILY Cholestyramine Packet (Cholestyramine (With Sugar)) 4 Gm Powd.pack 4 Gm PO Gabapentin 600 Mg Tablet 600 Mg PO TID Folic Acid 1 Mg Tablet 1 Tab PO DAILY Clonidine Hcl 0.1 Mg Tablet 0.1 Mg PO BID Metformin Hcl 1,000 Mg Tablet 1,000 Mg PO BIDWMEALS Atorvastatin Calcium 40 Mg Tablet 1 Tab PO DAILY Vitals/I & O Vital Sign - Last 24 Hours 02/05/17 02/05/17 02/05/17 02/05/17 14:09 15:00 19:00 19:40 Temp 98.8 99.9 98.8 99.9 Pulse 67 53 Resp 18 18 B/P (MAP) 104/62 (76) 124/38 (66) Pulse Ox 97 91 O2 Delivery Room Air Room Air Room Air Room Air 02/05/17 02/05/17 02/05/17 02/05/17 20:36 20:36 23:00 23:00 Temp 98.1 98.1 Pulse 53 53 52 Resp 16 18 B/P (MAP) 124/38 124/38 112/44 (66) Pulse Ox 98 O2 Delivery Room Air Room Air 02/06/17 02/06/17 02/06/17 02/06/17 00:35 01:14 02:15 03:00 Temp 96.6 96.6 Pulse 69 Resp 16 16 16 18 B/P (MAP) 107/38 (61) Pulse Ox 97 O2 Delivery Room Air Room Air Room Air Room Air 02/06/17 02/06/17 02/06/17 02/06/17 07:00 07:25 11:00 11:20 Temp 98.2 98.0 98.2 98.0 Pulse 60 64 73 Resp 18 18 24 B/P (MAP) 119/61 (80) 113/51 (71) Pulse Ox 98 99 100 O2 Delivery Room Air Room Air Room Air Nasal Cannula O2 Flow Rate 2.0 02/06/17 02/06/17 02/06/17 02/06/17 11:25 11:30 11:35 11:41 Pulse 74 76 69 Resp 16 16 16 12 Pulse Ox 95 99 99 99 O2 Delivery Nasal Cannula Nasal Cannula Nasal Cannula Nasal Cannula O2 Flow Rate 2.0 2.0 2.0 2.0 02/06/17 11:41 Pulse 74 Resp 18 Pulse Ox 99 O2 Delivery Nasal Cannula O2 Flow Rate 2.0 Intake and Output 02/05/17 02/05/17 02/06/17 15:00 23:00 07:00 Intake Total 100 ml 700 ml Output Total 100 ml 150 ml Balance 0 ml 550 ml JESSICA RAMIREZ III DO Feb 06, 2017 13:53
[2017-02-06] MEDS: LIDOCAINE (700MG/PATCH) PATCH. TP SCH (14:53)
[2017-02-06] MEDS: ATORVASTATIN CALCIUM 40 MG TABLET. PO SCH (21:36)
[2017-02-07 03:00] VITALS: BP 114/48
[2017-02-07 05:19] LABS: BASO # 0.1 x10^3/uL (0.0-0.2); BASO % 2 % (0-3); EOS % 8 % (0-3); HEMATOCRIT 24.4 % (39.0-53.0); HEMOGLOBIN 7.8 g/dL (13.0-17.5); LYMPH # 1.2 x10^3/uL (1.0-4.8); LYMPH % 21 % (24-48); MEAN CORPUSCULAR HEMOGLOBIN 32 pg (25-35); MEAN CORPUSCULAR HGB CONC 32 g/dL (31-37); MEAN CORPUSCULAR VOLUME 100 fL (79-100); MONO % 8 % (0-9); NEUT % 62 % (31-73); PLATELET COUNT 221 x10^3/uL (140-400); RED BLOOD COUNT 2.44 x10^6/uL (4.30-5.70); RED CELL DISTRIBUTION WIDTH 18.9 % (11.5-14.5); WHITE BLOOD COUNT 5.7 x10^3/uL (4.0-11.0)
[2017-02-07 05:39] LABS: RETIC COUNT 1.3 % (0.5-2.5)
[2017-02-07 05:52] LABS: ALBUMIN 2.2 g/dL (3.4-5.0); ALBUMIN/GLOBULIN RATIO 0.6 (1.0-1.7); CALCIUM 8.5 mg/dL (8.5-10.1); CREATININE 1.4 mg/dL (0.7-1.3); POTASSIUM 4.8 mmol/L (3.5-5.1); TOTAL BILIRUBIN 1.4 mg/dL (0.2-1.0); TOTAL PROTEIN 5.7 g/dL (6.4-8.2)
[2017-02-07] MEDS: CHOLESTYRAMINE/ASPARTAME 4 GM PACKET PO SCH ×2 (06:43→18:07)
[2017-02-07 07:00] VITALS: BP 137/70
[2017-02-07] MEDS: ASPIRIN ENTERIC COATED 81 MG TABLET.DR. PO SCH (09:11)
[2017-02-07] MEDS: GABAPENTIN 300 MG CAPSULE. PO SCH ×3 (09:12→20:57)
[2017-02-07] MEDS: FOLIC ACID 1 MG TABLET. PO SCH (09:12)
[2017-02-07] MEDS: CHOLECALCIFEROL (VITAMIN D3) 1,000 UNIT TABLET PO SCH (09:12)
[2017-02-07] MEDS: oxyCODONE ER 15 MG TAB.ER.12H PO SCH ×2 (09:13→20:57)
[2017-02-07] MEDS: SENNOSIDES/DOCUSATE 8.6/50MG TABLET. PO SCH (09:13)
[2017-02-07] MEDS: HYDROcodone/APAP 10/325 1 TAB TABLET PO PRN ×2 (09:13→18:08)
[2017-02-07] MEDS: LIDOCAINE (700MG/PATCH) PATCH. TP SCH (09:14)
[2017-02-07] MEDS: amLODIPine BESYLATE 10 MG TABLET PO SCH (09:26)
[2017-02-07] MEDS: DICLOFENAC SODIUM 1% TOPICAL GEL 100GM TUBE. TP SCH ×4 (09:31→20:59)
--- NOTE | 2017-02-07 10:41 | EKG ---
[facility] [address] [place] [address] Test Date: 2017-02-07 Test Time: 10:37:18 Pat Name: JESSE MCGEE Department: Room: [facility] Gender: M E Commerce Architect: SUDHEER : 1945 Requested By: ADRIANNA RICE Order Number: [id number] Reading MD: Mohinder Fink Measurements Intervals [place] Rate: 62 P: OR: QRS: 1 QRSD: 94 T: 124 QT: 426 QTc: 435 Interpretive Statements ATRIAL FIBRILLATION T ABNORMALITY IN HIGH LATERAL LEADS ABNORMAL ECG Electronically Signed On 02-19-2017 14:01:53 PRINCIPLE SOFTWARE ENGINEER by Mohinder Fink
[2017-02-07] MEDS ORDERED: hydrALAZINE 20 MG/ML VIAL. IVP PRN (11:15)
[2017-02-07 11:20] VITALS: BP 134/68
--- NOTE | 2017-02-07 11:24 | PDOC2 ---
ADRIANNA RICE ENTERPRISE BUSINESS ARCHITECT 02/07/17 1124: CARDIAC CONSULT DATE OF CONSULT Date of Consult DATE: 02/07/17 TIME: 11:04 REASON FOR CONSULT Reason for Consult: AFIB hx and possible VT REFERRING PHYSICIAN Referring Physician: Myah SOURCE Source: Chart review HISTORY OF PRESENT ILLNESS HISTORY OF PRESENT ILLNESS This is a pleasant 71 yo male admitted for complains of leg swelling and also was noted with anemia and being jaundice per staff at [facility]. Further discussion with pt revealed no CP, SOA and acutally laying flat on his back without difficulty. Denies any palpitations, no dizziness when sitting up. His mobility is limited due to significant back surgery from lytic lesions, multiple vertebral fractures. He is known and recently evaluated by me. He is known for CAD which is currently stable and also heavy alcoholism, vertebral fractures, anemia, and likely malignancy in which workup is ongoing. He is known for AFIB and apparently he is on metoprolol and clonidine and was noted with possible VT which was noted with 2 episodes of triplets otherwise persistent AFIB with slow rate at times and 2-3 sec pauses without symptoms. Presently pt denies any discomfort and his BP is stable. PAST MEDICAL HISTORY Past Medical History Cardiovascular: CAD, HTN, Hyperlipidemia, AFIB, syncope Pulmonary: Other (ALESIA) CENTRAL NERVOUS SYSTEM: Other (No pertinent history) GI: Inflam bowel disease (chrons) Heme/Onc: Other (chronic immunosuppression (Humira), lumbar spinal mass, path report pending, anemia Psych: No pertinent hx Musculoskeletal: Osteoarthritis, multiple vertebral compression fracture, prior heavy alcoholism Rheumatologic: No pertinent hx Infectious disease: No pertinent hx ENT: No pertinent hx Renal/: Benign prostatic enlarg. (?) Endocrine: Diabetes (2) Dermatology: No pertinent hx Heme/Onc: Cancer PAST SURGICAL HISTORY Past Surgical History Appendectomy, Cholecystectomy, Colon Resection, Other (small bowel resection from past exploratory laparotomy), lumbar fusion FAMILY HISTORY Family History Coronary Artery Disease (mother and father) SOCIAL HISTORY Social History Smoke: No ALCOHOL: prior heavy Drugs: None Lives: rehab facility CURRENT MEDICATIONS CURRENT MEDICATIONS Current Medications Medications (Trade) Dose Ordered Sig/Jose Route PRN Reason Start Time Stop Time Status Last Admin Dose Admin Lidocaine/Sodium Bicarbonate (Buffered Lidocaine 1%) 20 ml 1X ONCE IJ 02/06/17 11:15 02/06/17 11:18 DC 02/06/17 11:39 Midazolam HCl (Versed) 2 mg 1X ONCE IV 02/06/17 11:15 02/06/17 11:18 DC 02/06/17 11:40 Fentanyl Citrate (Fentanyl 2ml Vial) 100 mcg 1X ONCE IV 02/06/17 11:15 02/06/17 11:18 DC 02/06/17 11:41 Amlodipine Besylate (Norvasc) 10 mg DAILY PO 02/07/17 10:00 02/07/17 09:26 ALLERGIES ALLERGIES: Coded Allergies: azathioprine (Verified Allergy, Intermediate, n/v, 01/24/17) furosemide (Verified Allergy, Intermediate, "i dont know" , 01/15/17) infliximab (Verified Allergy, Intermediate, rash, 01/15/17) ROS Review of System 14 point ROS evaluated with pertinent positives noted per HPI PHYSICAL EXAM General: Alert, Oriented X3, Cooperative, No acute distress HEENT: Atraumatic, Mucous membr. moist/pink Lungs: Other (diminished bases) Heart: Other (AFIB rate controlled; 2/6 systolic murmur to LLS border) Extremities: No cyanosis, Other (2+ bilateral LE pitting edema) Skin: No breakdown, No significant lesion Neuro: Normal speech, Sensation intact Psych/Mental Status: Mood NL MUSCULOSKELETAL: Osteoarthritic changes both hands VITALS VITALS Vital Signs Date Time Temp Pulse Resp B/P (MAP) Pulse Ox O2 Delivery O2 Flow Rate FiO2 02/07/17 10:24 99 Room Air 02/07/17 09:26 63 137/70 02/07/17 09:13 2.0 02/07/17 07:00 98.5 18 98.5 LABS Lab: Laboratory Tests Test 02/06/17 12:34 02/06/17 16:33 02/06/17 20:41 02/07/17 04:25 Glucose (Fingerstick) 104 mg/dL (70-99) 110 mg/dL (70-99) 92 mg/dL (70-99) White Blood Count 5.7 x10^3/uL (4.0-11.0) Red Blood Count 2.44 x10^6/uL (4.30-5.70) Hemoglobin 7.8 g/dL (13.0-17.5) Hematocrit 24.4 % (39.0-53.0) Mean Corpuscular Volume 100 fL (79-100) Mean Corpuscular Hemoglobin 32 pg (25-35) Mean Corpuscular Hemoglobin Concent 32 g/dL (31-37) Red Cell Distribution Width 18.9 % (11.5-14.5) Platelet Count 221 x10^3/uL (140-400) Neutrophils (%) (Auto) 62 % (31-73) Lymphocytes (%) (Auto) 21 % (24-48) Monocytes (%) (Auto) 8 % (0-9) Eosinophils (%) (Auto) 8 % (0-3) Basophils (%) (Auto) 2 % (0-3) Neutrophils # (Auto) 3.5 x10^3uL (1.8-7.7) Lymphocytes # (Auto) 1.2 x10^3/uL (1.0-4.8) Monocytes # (Auto) 0.5 x10^3/uL (0.0-1.1) Eosinophils # (Auto) 0.4 x10^3/uL (0.0-0.7) Basophils # (Auto) 0.1 x10^3/uL (0.0-0.2) Reticulocyte Count (auto) 1.3 % (0.5-2.5) Sodium Level 142 mmol/L (136-145) Potassium Level 4.8 mmol/L (3.5-5.1) Chloride Level 109 mmol/L (98-107) Carbon Dioxide Level 27 mmol/L (21-32) Anion Gap 6 (6-14) Blood Urea Nitrogen 25 mg/dL (8-26) Creatinine 1.4 mg/dL (0.7-1.3) Estimated GFR (Cockcroft-Gault) 50.0 BUN/Creatinine Ratio 18 (6-20) Glucose Level 101 mg/dL (70-99) Calcium Level 8.5 mg/dL (8.5-10.1) Magnesium Level 1.7 mg/dL (1.8-2.4) Total Bilirubin 1.4 mg/dL (0.2-1.0) Aspartate Amino Transf (AST/SGOT) 19 U/L (15-37) Alanine Aminotransferase (ALT/SGPT) 16 U/L (16-63) Alkaline Phosphatase 129 U/L (46-116) Lactate Dehydrogenase 260 U/L (85-227) Total Protein 5.7 g/dL (6.4-8.2) Albumin 2.2 g/dL (3.4-5.0) Albumin/Globulin Ratio 0.6 (1.0-1.7) Thyroid Stimulating Hormone (TSH) 10.042 uIU/mL (0.358-3.74) ASSESSMENT/PLAN ASSESSMENT/PLAN 1. Asymptomatic Bradyarrhythmia: episodes of HR 30-40s and presently in the 60s. No Vtach per records but noted with PVCs which is likely bradycardia mediated. 2. Known persistent with present Slow AFIB: addl info above. Noted with episodes of 2-3 sec pause with noted use of lopressor and clonidine and present hypothyroidism 3. Prior syncope: also associated with previous heavy alcoholism 4. Recent vertebral compression fractures with notable anemia and recent epidural hematoma 5. Chronic diastolic CHF: compensated 6. Spinal mass with possible malignancy/MM: path pending 7. Anemia with possible hemolysis: Hgb 7.8 8. CAD: total x7 stents with last PCI 2002. No cardiac symptoms. Stable 9. HTN: controlled 10. DM2/HLP 11. CKD3 12. Hypothyroidism: New? TSH 10s per PCP Recommendations 1. Stop lopressor and clonidine for now. Will allow 48 your washout period and will reevaluate need. No pacemaker indicated at this time 2. Continue with secondary prevention. Not an anticoagulation candidate. ASA for stroke prevention 3. Replace Mg. Increase norvasc. Hydralazine IV PRN. Problems: JUNE RODRIGUES MD 02/07/17 1229: CARDIAC CONSULT ALLERGIES ALLERGIES: Coded Allergies: azathioprine (Verified Allergy, Intermediate, n/v, 01/24/17) furosemide (Verified Allergy, Intermediate, "i dont know" , 01/15/17) infliximab (Verified Allergy, Intermediate, rash, 01/15/17) ASSESSMENT/PLAN ASSESSMENT/PLAN Patient seen and examined. Agree with HEALTH THERAPIST's assessment and plan. Telemetry showed atrial fibrillation with episodes of slow VR and aberrantly conducted beats. No episodes of VT noted. Chronic diastolic heart failure well compensated. CAD status clinically stable. Agree with holding beta blockers. Patient poor candidate for long-term anticoagulation. Thank you for your consultation. Problems: ADRIANNA RICE APRN Feb 07, 2017 11:24 JUNE RODRIGUES MD Feb 07, 2017 12:29
[2017-02-07] MEDS ORDERED: MAGNESIUM SULFATE 2GM 50 ML IV ONE (11:30)
--- NOTE | 2017-02-07 11:54 | PDOC ---
PROGRESS NOTES Subjective Subjective HPI - f/u of anemia ROS - has back pain Objective Objective Vital Signs Date Time Temp Pulse Resp B/P (MAP) Pulse Ox O2 Delivery O2 Flow Rate FiO2 02/07/17 11:20 97.9 71 18 134/68 (90) 98 Room Air 97.9 02/07/17 09:13 2.0 Intake and Output 02/07/17 07:00 Intake Total 535 ml Output Total 550 ml Balance -15 ml Intake Oral 535 ml Output Urine Total 550 ml Stool Total 0 ml Physical Exam Heart: Normal S1, Normal S2 General: Alert, Oriented X3 Lungs: Clear to auscultation Neuro: Normal speech Psych/Mental Status: Mental status NL Assessment Assessment Problems Medical Problems: (1) Hyperbilirubinemia Status: Acute IMPRESSION AND PLAN: 1. Anemia with mild elevation in retic, LDH, bili and decreased haptoglobin is suggestive of a mild hemolytic process. Mayte test is negative. Hb now at 7.8. Considering the chronicity of anemia, s/p BM bx 02/06/17 to r/o primary bone marrow disorders. Retic normal at 1.3 on 02/07/17 and improved bili 1.4. Hence no need for steroids. f/u with me in 2-3 weeks to review bone marrow results. 2. Bone lesion due to fracture. He also has multiple other lesions in the spine. Thought to be benign. Now s/p L1 to L4 fusion laminectomy L4, Bx L3 and removal of L4 hematoma on 01/24/2017. Path negative for malignancy. Bone scan does not reveal uptake. Myeloma labs normal. Bone survey 01/18/17: Sclerotic foci in the cervical spine. These are likely benign in view of the lack of abnormal uptake on the current bone scan. Distracted Chance type fracture of the L3 vertebral body, better demonstrated on previous CT images. CT chest, abdomen and pelvis did not reveal a malignancy. I d/w IR, he feels that this may just be an acute fracture. MRI reviewed. There is autofusion of L1-L2 and L3-L5 with a distracted fracture extending through the anterior, middle and posterior columns of the L3 vertebrae as well as the posterior elements at the L3 vertebral level compatible with a Chance fracture. There is disruption of the anterior and posterior longitudinal ligaments as well as the posterior ligamentous complex. There is an epidural hematoma resulting in severe spinal canal stenosis and likely cauda equina syndrome. PSA normal. 3. Left renal lesion, u/s ultrasound of the kidney does not reveal malignancy. Comment Review of Relevant I have reviewed the following items bernadine (where applicable) has been applied. Labs Laboratory Tests Test 02/05/17 16:46 02/05/17 21:36 02/06/17 04:00 02/06/17 07:32 Glucose (Fingerstick) 113 mg/dL (70-99) 109 mg/dL (70-99) 105 mg/dL (70-99) White Blood Count 7.4 x10^3/uL (4.0-11.0) Red Blood Count 2.36 x10^6/uL (4.30-5.70) Hemoglobin 7.6 g/dL (13.0-17.5) Hematocrit 23.5 % (39.0-53.0) Mean Corpuscular Volume 99 fL (79-100) Mean Corpuscular Hemoglobin 32 pg (25-35) Mean Corpuscular Hemoglobin Concent 32 g/dL (31-37) Red Cell Distribution Width 19.0 % (11.5-14.5) Platelet Count 222 x10^3/uL (140-400) Neutrophils (%) (Auto) 70 % (31-73) Lymphocytes (%) (Auto) 15 % (24-48) Monocytes (%) (Auto) 8 % (0-9) Eosinophils (%) (Auto) 6 % (0-3) Basophils (%) (Auto) 1 % (0-3) Neutrophils # (Auto) 5.2 x10^3uL (1.8-7.7) Lymphocytes # (Auto) 1.1 x10^3/uL (1.0-4.8) Monocytes # (Auto) 0.6 x10^3/uL (0.0-1.1) Eosinophils # (Auto) 0.4 x10^3/uL (0.0-0.7) Basophils # (Auto) 0.1 x10^3/uL (0.0-0.2) Reticulocyte Count (auto) 1.4 % (0.5-2.5) Sodium Level 138 mmol/L (136-145) Potassium Level 3.7 mmol/L (3.5-5.1) Chloride Level 106 mmol/L (98-107) Carbon Dioxide Level 24 mmol/L (21-32) Anion Gap 8 (6-14) Blood Urea Nitrogen 29 mg/dL (8-26) Creatinine 1.5 mg/dL (0.7-1.3) Estimated GFR (Cockcroft-Gault) 46.1 BUN/Creatinine Ratio 19 (6-20) Glucose Level 95 mg/dL (70-99) Calcium Level 8.3 mg/dL (8.5-10.1) Total Bilirubin 1.5 mg/dL (0.2-1.0) Aspartate Amino Transf (AST/SGOT) 21 U/L (15-37) Alanine Aminotransferase (ALT/SGPT) 17 U/L (16-63) Alkaline Phosphatase 115 U/L (46-116) Lactate Dehydrogenase 262 U/L (85-227) Total Protein 5.5 g/dL (6.4-8.2) Albumin 2.3 g/dL (3.4-5.0) Albumin/Globulin Ratio 0.7 (1.0-1.7) Test 02/06/17 12:34 02/06/17 16:33 02/06/17 20:41 02/07/17 04:25 Glucose (Fingerstick) 104 mg/dL (70-99) 110 mg/dL (70-99) 92 mg/dL (70-99) White Blood Count 5.7 x10^3/uL (4.0-11.0) Red Blood Count 2.44 x10^6/uL (4.30-5.70) Hemoglobin 7.8 g/dL (13.0-17.5) Hematocrit 24.4 % (39.0-53.0) Mean Corpuscular Volume 100 fL (79-100) Mean Corpuscular Hemoglobin 32 pg (25-35) Mean Corpuscular Hemoglobin Concent 32 g/dL (31-37) Red Cell Distribution Width 18.9 % (11.5-14.5) Platelet Count 221 x10^3/uL (140-400) Neutrophils (%) (Auto) 62 % (31-73) Lymphocytes (%) (Auto) 21 % (24-48) Monocytes (%) (Auto) 8 % (0-9) Eosinophils (%) (Auto) 8 % (0-3) Basophils (%) (Auto) 2 % (0-3) Neutrophils # (Auto) 3.5 x10^3uL (1.8-7.7) Lymphocytes # (Auto) 1.2 x10^3/uL (1.0-4.8) Monocytes # (Auto) 0.5 x10^3/uL (0.0-1.1) Eosinophils # (Auto) 0.4 x10^3/uL (0.0-0.7) Basophils # (Auto) 0.1 x10^3/uL (0.0-0.2) Reticulocyte Count (auto) 1.3 % (0.5-2.5) Sodium Level 142 mmol/L (136-145) Potassium Level 4.8 mmol/L (3.5-5.1) Chloride Level 109 mmol/L (98-107) Carbon Dioxide Level 27 mmol/L (21-32) Anion Gap 6 (6-14) Blood Urea Nitrogen 25 mg/dL (8-26) Creatinine 1.4 mg/dL (0.7-1.3) Estimated GFR (Cockcroft-Gault) 50.0 BUN/Creatinine Ratio 18 (6-20) Glucose Level 101 mg/dL (70-99) Calcium Level 8.5 mg/dL (8.5-10.1) Magnesium Level 1.7 mg/dL (1.8-2.4) Total Bilirubin 1.4 mg/dL (0.2-1.0) Aspartate Amino Transf (AST/SGOT) 19 U/L (15-37) Alanine Aminotransferase (ALT/SGPT) 16 U/L (16-63) Alkaline Phosphatase 129 U/L (46-116) Lactate Dehydrogenase 260 U/L (85-227) Total Protein 5.7 g/dL (6.4-8.2) Albumin 2.2 g/dL (3.4-5.0) Albumin/Globulin Ratio 0.6 (1.0-1.7) Thyroid Stimulating Hormone (TSH) 10.042 uIU/mL (0.358-3.74) Laboratory Tests Test 02/06/17 12:34 02/06/17 16:33 02/06/17 20:41 02/07/17 04:25 Glucose (Fingerstick) 104 mg/dL (70-99) 110 mg/dL (70-99) 92 mg/dL (70-99) White Blood Count 5.7 x10^3/uL (4.0-11.0) Red Blood Count 2.44 x10^6/uL (4.30-5.70) Hemoglobin 7.8 g/dL (13.0-17.5) Hematocrit 24.4 % (39.0-53.0) Mean Corpuscular Volume 100 fL (79-100) Mean Corpuscular Hemoglobin 32 pg (25-35) Mean Corpuscular Hemoglobin Concent 32 g/dL (31-37) Red Cell Distribution Width 18.9 % (11.5-14.5) Platelet Count 221 x10^3/uL (140-400) Neutrophils (%) (Auto) 62 % (31-73) Lymphocytes (%) (Auto) 21 % (24-48) Monocytes (%) (Auto) 8 % (0-9) Eosinophils (%) (Auto) 8 % (0-3) Basophils (%) (Auto) 2 % (0-3) Neutrophils # (Auto) 3.5 x10^3uL (1.8-7.7) Lymphocytes # (Auto) 1.2 x10^3/uL (1.0-4.8) Monocytes # (Auto) 0.5 x10^3/uL (0.0-1.1) Eosinophils # (Auto) 0.4 x10^3/uL (0.0-0.7) Basophils # (Auto) 0.1 x10^3/uL (0.0-0.2) Reticulocyte Count (auto) 1.3 % (0.5-2.5) Sodium Level 142 mmol/L (136-145) Potassium Level 4.8 mmol/L (3.5-5.1) Chloride Level 109 mmol/L (98-107) Carbon Dioxide Level 27 mmol/L (21-32) Anion Gap 6 (6-14) Blood Urea Nitrogen 25 mg/dL (8-26) Creatinine 1.4 mg/dL (0.7-1.3) Estimated GFR (Cockcroft-Gault) 50.0 BUN/Creatinine Ratio 18 (6-20) Glucose Level 101 mg/dL (70-99) Calcium Level 8.5 mg/dL (8.5-10.1) Magnesium Level 1.7 mg/dL (1.8-2.4) Total Bilirubin 1.4 mg/dL (0.2-1.0) Aspartate Amino Transf (AST/SGOT) 19 U/L (15-37) Alanine Aminotransferase (ALT/SGPT) 16 U/L (16-63) Alkaline Phosphatase 129 U/L (46-116) Lactate Dehydrogenase 260 U/L (85-227) Total Protein 5.7 g/dL (6.4-8.2) Albumin 2.2 g/dL (3.4-5.0) Albumin/Globulin Ratio 0.6 (1.0-1.7) Thyroid Stimulating Hormone (TSH) 10.042 uIU/mL (0.358-3.74) Medications Current Medications Morphine Sulfate 2 mg PRN Q15MIN PRN IV/SQ PAIN GREATER THAN 3/10 Last administered on 02/04/17 13:44; Start 02/04/17 at 13:15; Stop 02/04/17 at 15 :05; Status DC Ondansetron HCl (Zofran) 4 mg 1X ONCE IV Last administered on 02/04/17 13:26 ; Start 02/04/17 at 13:15; Stop 02/04/17 at 13:16; Status DC Ondansetron HCl (Zofran) 4 mg PRN Q8HRS PRN IV NAUSEA/VOMITING; Start at 15:00; Stop 02/05/17 at 14:59; Status DC Morphine Sulfate 2 mg PRN Q2HR PRN IV PAIN Last administered on 02/04/17 17: 49; Start 02/04/17 at 15:00; Stop 02/05/17 at 14:59; Status DC Amlodipine Besylate (Norvasc) 5 mg DAILY PO Last administered on 02/05/17 08: 32; Start 02/05/17 at 09:00; Stop 02/07/17 at 09:14; Status DC Aspirin (Ecotrin) 81 mg [id number] PO Last administered on 02/07/17 09:11; Start 02/05/17 at 08:00 Atorvastatin Calcium (Lipitor) 40 mg QHS PO Last administered on 02/06/17 21: 36; Start 02/04/17 at 21:00 Vitamin D (Vitamin D3) 2,000 unit DAILY PO Last administered on 02/07/17 09: 12; Start 02/05/17 at 09:00 Clonidine HCl (Catapres) 0.1 mg BID PO Last administered on 02/06/17 21:37; Start 02/04/17 at 21:00; Stop 02/07/17 at 09:14; Status DC Diclofenac Sodium (Voltaren) 1 jose a QID TP Last administered on 02/07/17 09:31 ; Start 02/04/17 at 21:00 Folic Acid (Folic Acid) 1 mg DAILY PO Last administered on 02/07/17 09:12; Start 02/05/17 at 09:00 Acetaminophen/ Hydrocodone Bitart (Lortab 10/325) 1 tab PRN Q6HRS PRN PO MODERATE PAIN Last administered on 02/07/17 09:13; Start 02/04/17 at 19:30 Lidocaine (Lidoderm) 1 patch DAILY TP Last administered on 02/07/17 09:14; Start 02/05/17 at 09:00 Loperamide HCl (Imodium) 2 mg PRN QID PRN PO DIARRHEA; Start 02/04/17 at 19:30 ; Stop 02/05/17 at 13:29; Status DC Metformin HCl (Glucophage) 1,000 mg BIDWMEALS PO Last administered on 09:13; Start 02/05/17 at 08:00 Metoprolol Succinate (Toprol Xl) 25 mg BID PO Last administered on 02/06/17 21:36; Start 02/04/17 at 21:00; Stop 02/07/17 at 09:14; Status DC Oxycodone HCl (OxyCONTIN) 30 mg Q12HR PO Last administered on 02/07/17 09:13 ; Start 02/04/17 at 21:00 Senna/Docusate Sodium (Senna Plus) 2 tab DAILY PO Last administered on 09:13; Start 02/05/17 at 09:00 Gabapentin (Neurontin) 600 mg TID PO Last administered on 02/07/17 09:12; Start 02/04/17 at 21:00 Cholestyramine Resin (Questran Light) 4 gm BID PO ; Start 02/04/17 at 21:15; Stop 02/05/17 at 01:39; Status DC Loperamide HCl (Imodium) 4 mg PRN Q15MIN PRN PO DIARRHEA; Start 02/04/17 at 21 :15 Cholestyramine Resin (Questran Light) 4 gm [id number] PO Last administered on 06:43; Start 02/05/17 at 06:00 Lidocaine/Sodium Bicarbonate (Buffered Lidocaine 1%) 20 ml 1X ONCE IJ Last administered on 02/06/17 11:39; Start 02/06/17 at 11:15; Stop 02/06/17 at 11 :18; Status DC Midazolam HCl (Versed) 2 mg 1X ONCE IV Last administered on 02/06/17 11:40; Start 02/06/17 at 11:15; Stop 02/06/17 at 11:18; Status DC Fentanyl Citrate (Fentanyl 2ml Vial) 100 mcg 1X ONCE IV Last administered on 02/06/17 11:41; Start 02/06/17 at 11:15; Stop 02/06/17 at 11:18; Status DC Amlodipine Besylate (Norvasc) 10 mg DAILY PO Last administered on 02/07/17 09 :26; Start 02/07/17 at 10:00 Magnesium Sulfate/ Dextrose 50 ml @ 25 mls/hr 1X ONCE IV ; Start 02/07/17 at 11:30; Stop 02/07/17 at 13:29 Hydralazine HCl (Apresoline Inj) 10 mg PRN Q4HRS PRN IVP ELEVATED BP, SEE COMMENTS; Start 02/07/17 at 11:15 Active Scripts Active Metoprolol Succinate ( Xl ) (Metoprolol Succinate) 25 Mg Tab.er.24h 25 Mg PO BID 30 Days Hydrocodone-Apap 10-325 (Hydrocodone Bit/Acetaminophen) 1 Each Tablet 1 Tab PO PRN Q6HRS PRN Senna-Time S Tablet (Sennosides/Docusate Sodium) 1 Each Tablet 2 Tab PO DAILY 10 Days Oxycontin (Oxycodone HCl) 15 Mg Tab.er.12h 30 Mg PO Q12HR Aspirin Ec (Aspirin) 81 Mg Tablet. 81 Mg PO DAILYWBKFT 30 Days Amlodipine Besylate 5 Mg Tablet 5 Mg PO DAILY 30 Days Reported Loperamide (Loperamide Hcl) 2 Mg Capsule 2 Mg PO PRN QID PRN Voltaren (Diclofenac Sodium) 100 Gm Gel..gram. 1 Gm TP QID Lidocaine 1 Each Adh..patch 1 Each TP DAILY Vitamin D3 (Cholecalciferol (Vitamin D3)) 1,000 Unit Tablet 2,000 Unit PO Humira (Adalimumab) 40 Mg/0.8 Ml Pen.ij.kit 1 Syr SQ Q2WKS Folbic Rf Tablet (B12/Levomefolate Calcium/B-6) 1 Each Tablet 1 Each PO Omeprazole 40 Mg Capsule.dr 1 Cap PO DAILY Cholestyramine Packet (Cholestyramine (With Sugar)) 4 Gm Powd.pack 4 Gm PO Gabapentin 600 Mg Tablet 600 Mg PO TID Folic Acid 1 Mg Tablet 1 Tab PO DAILY Clonidine Hcl 0.1 Mg Tablet 0.1 Mg PO BID Metformin Hcl 1,000 Mg Tablet 1,000 Mg PO BIDWMEALS Atorvastatin Calcium 40 Mg Tablet 1 Tab PO DAILY Vitals/I & O Vital Sign - Last 24 Hours 02/06/17 02/06/17 02/06/17 02/06/17 15:00 15:02 19:15 19:30 Temp 98.4 97.9 98.4 97.9 Pulse 80 61 Resp 18 18 B/P (MAP) 127/71 (89) 130/77 (94) Pulse Ox 96 97 O2 Delivery Room Air Room Air Room Air Room Air 02/06/17 02/06/17 02/06/17 02/06/17 21:35 21:35 21:36 21:37 Pulse 61 61 Resp 16 16 B/P (MAP) 130/77 130/77 O2 Delivery Room Air Room Air 02/06/17 02/06/17 02/07/17 02/07/17 22:35 23:00 01:35 03:00 Temp 97.7 97.8 97.7 97.8 Pulse 96 64 Resp 16 18 16 18 B/P (MAP) 123/63 (83) 114/48 (70) Pulse Ox 93 98 O2 Delivery BiPAP/CPAP BiPAP/CPAP Room Air O2 Flow Rate 2.0 2.0 02/07/17 02/07/17 02/07/17 02/07/17 07:00 09:13 09:13 09:26 Temp 98.5 98.5 Pulse 63 63 Resp 18 B/P (MAP) 137/70 (92) 137/70 Pulse Ox 99 99 99 O2 Delivery Room Air Room Air Room Air O2 Flow Rate 2.0 02/07/17 02/07/17 10:24 11:20 Temp 97.9 97.9 Pulse 71 Resp 18 B/P (MAP) 134/68 (90) Pulse Ox 99 98 O2 Delivery Room Air Room Air Intake and Output 02/06/17 02/06/17 02/07/17 15:00 23:00 07:00 Intake Total 310 ml 225 ml Output Total 350 ml 200 ml Balance -40 ml 25 ml PINEDA FIELDS MD Feb 07, 2017 11:54
--- NOTE | 2017-02-07 13:14 | PDOC ---
Provider Note Provider Note patient seen and examined ricky removed,lumbar incision healing well lumbar spine films ordered SOULEYMANE PAULSON CHAIR INSPECTOR Feb 07, 2017 13:14
[2017-02-07 15:00] VITALS: BP 95/56
[2017-02-07] MEDS: LEVOTHYROXINE 25 MCG TABLET. PO SCH (15:17)
--- NOTE | 2017-02-07 15:48 | PDOC ---
PROGRESS NOTES Chief Complaint Chief Complaint (1) Hyperbilirubinemia Status: Acute History of Present Illness History of Present Illness Pt experiencing 3 second pauses, HR 30's Adjusting Negative Chronotropic Agents Pt has Hypothyroidism TSH 10.4 Ordered Synthroid 25 mcg QD Followed by Dr. Gareth Nettles/Oncology Pt undergoing BM Bx yesterday, awaiting results HH continue to decline with current labs Hgb 7.8 Hct 24.4 Vitals Vitals Vital Signs Date Time Temp Pulse Resp B/P (MAP) Pulse Ox O2 Delivery O2 Flow Rate FiO2 02/07/17 13:00 98 Room Air 02/07/17 11:20 97.9 71 18 134/68 (90) 97.9 02/07/17 09:13 2.0 Physical Exam General: Cooperative, mild distress Lungs: Clear, Other (No wheezes or rales) Extremities: No clubbing, No cyanosis, No edema, Other (2+ bilateral LE pitting edema) Skin: No breakdown, No significant lesion Labs LABS Laboratory Tests Test 02/06/17 16:33 02/06/17 20:41 02/07/17 04:25 Glucose (Fingerstick) 110 mg/dL (70-99) 92 mg/dL (70-99) White Blood Count 5.7 x10^3/uL (4.0-11.0) Red Blood Count 2.44 x10^6/uL (4.30-5.70) Hemoglobin 7.8 g/dL (13.0-17.5) Hematocrit 24.4 % (39.0-53.0) Mean Corpuscular Volume 100 fL (79-100) Mean Corpuscular Hemoglobin 32 pg (25-35) Mean Corpuscular Hemoglobin Concent 32 g/dL (31-37) Red Cell Distribution Width 18.9 % (11.5-14.5) Platelet Count 221 x10^3/uL (140-400) Neutrophils (%) (Auto) 62 % (31-73) Lymphocytes (%) (Auto) 21 % (24-48) Monocytes (%) (Auto) 8 % (0-9) Eosinophils (%) (Auto) 8 % (0-3) Basophils (%) (Auto) 2 % (0-3) Neutrophils # (Auto) 3.5 x10^3uL (1.8-7.7) Lymphocytes # (Auto) 1.2 x10^3/uL (1.0-4.8) Monocytes # (Auto) 0.5 x10^3/uL (0.0-1.1) Eosinophils # (Auto) 0.4 x10^3/uL (0.0-0.7) Basophils # (Auto) 0.1 x10^3/uL (0.0-0.2) Reticulocyte Count (auto) 1.3 % (0.5-2.5) Sodium Level 142 mmol/L (136-145) Potassium Level 4.8 mmol/L (3.5-5.1) Chloride Level 109 mmol/L (98-107) Carbon Dioxide Level 27 mmol/L (21-32) Anion Gap 6 (6-14) Blood Urea Nitrogen 25 mg/dL (8-26) Creatinine 1.4 mg/dL (0.7-1.3) Estimated GFR (Cockcroft-Gault) 50.0 BUN/Creatinine Ratio 18 (6-20) Glucose Level 101 mg/dL (70-99) Calcium Level 8.5 mg/dL (8.5-10.1) Magnesium Level 1.7 mg/dL (1.8-2.4) Total Bilirubin 1.4 mg/dL (0.2-1.0) Aspartate Amino Transf (AST/SGOT) 19 U/L (15-37) Alanine Aminotransferase (ALT/SGPT) 16 U/L (16-63) Alkaline Phosphatase 129 U/L (46-116) Lactate Dehydrogenase 260 U/L (85-227) Total Protein 5.7 g/dL (6.4-8.2) Albumin 2.2 g/dL (3.4-5.0) Albumin/Globulin Ratio 0.6 (1.0-1.7) Thyroid Stimulating Hormone (TSH) 10.042 uIU/mL (0.358-3.74) Review of Systems Review of Systems General: Denies Hunger, Fever, Chills Pulm: Denies SOB, Hemoptysis Assessment and Plan Assessmemt and Plan Problems Medical Problems: (1) Hyperbilirubinemia Status: Acute Plan: Adjusting Negative Chronotropic Agents(30 second, pauses with HR 30's) Start Synthroid 25 mcg PO QD Continue Cardiac Monitoring Continue Monitoring Thyroid function Continue Home Meds Continue PT/OT Recheck Labs Problems: Comment Review of Relevant I have reviewed the following items bernadine (where applicable) has been applied. Labs Laboratory Tests Test 02/05/17 16:46 02/05/17 21:36 02/06/17 04:00 02/06/17 07:32 Glucose (Fingerstick) 113 mg/dL (70-99) 109 mg/dL (70-99) 105 mg/dL (70-99) White Blood Count 7.4 x10^3/uL (4.0-11.0) Red Blood Count 2.36 x10^6/uL (4.30-5.70) Hemoglobin 7.6 g/dL (13.0-17.5) Hematocrit 23.5 % (39.0-53.0) Mean Corpuscular Volume 99 fL (79-100) Mean Corpuscular Hemoglobin 32 pg (25-35) Mean Corpuscular Hemoglobin Concent 32 g/dL (31-37) Red Cell Distribution Width 19.0 % (11.5-14.5) Platelet Count 222 x10^3/uL (140-400) Neutrophils (%) (Auto) 70 % (31-73) Lymphocytes (%) (Auto) 15 % (24-48) Monocytes (%) (Auto) 8 % (0-9) Eosinophils (%) (Auto) 6 % (0-3) Basophils (%) (Auto) 1 % (0-3) Neutrophils # (Auto) 5.2 x10^3uL (1.8-7.7) Lymphocytes # (Auto) 1.1 x10^3/uL (1.0-4.8) Monocytes # (Auto) 0.6 x10^3/uL (0.0-1.1) Eosinophils # (Auto) 0.4 x10^3/uL (0.0-0.7) Basophils # (Auto) 0.1 x10^3/uL (0.0-0.2) Reticulocyte Count (auto) 1.4 % (0.5-2.5) Sodium Level 138 mmol/L (136-145) Potassium Level 3.7 mmol/L (3.5-5.1) Chloride Level 106 mmol/L (98-107) Carbon Dioxide Level 24 mmol/L (21-32) Anion Gap 8 (6-14) Blood Urea Nitrogen 29 mg/dL (8-26) Creatinine 1.5 mg/dL (0.7-1.3) Estimated GFR (Cockcroft-Gault) 46.1 BUN/Creatinine Ratio 19 (6-20) Glucose Level 95 mg/dL (70-99) Calcium Level 8.3 mg/dL (8.5-10.1) Total Bilirubin 1.5 mg/dL (0.2-1.0) Aspartate Amino Transf (AST/SGOT) 21 U/L (15-37) Alanine Aminotransferase (ALT/SGPT) 17 U/L (16-63) Alkaline Phosphatase 115 U/L (46-116) Lactate Dehydrogenase 262 U/L (85-227) Total Protein 5.5 g/dL (6.4-8.2) Albumin 2.3 g/dL (3.4-5.0) Albumin/Globulin Ratio 0.7 (1.0-1.7) Test 02/06/17 12:34 02/06/17 16:33 02/06/17 20:41 02/07/17 04:25 Glucose (Fingerstick) 104 mg/dL (70-99) 110 mg/dL (70-99) 92 mg/dL (70-99) White Blood Count 5.7 x10^3/uL (4.0-11.0) Red Blood Count 2.44 x10^6/uL (4.30-5.70) Hemoglobin 7.8 g/dL (13.0-17.5) Hematocrit 24.4 % (39.0-53.0) Mean Corpuscular Volume 100 fL (79-100) Mean Corpuscular Hemoglobin 32 pg (25-35) Mean Corpuscular Hemoglobin Concent 32 g/dL (31-37) Red Cell Distribution Width 18.9 % (11.5-14.5) Platelet Count 221 x10^3/uL (140-400) Neutrophils (%) (Auto) 62 % (31-73) Lymphocytes (%) (Auto) 21 % (24-48) Monocytes (%) (Auto) 8 % (0-9) Eosinophils (%) (Auto) 8 % (0-3) Basophils (%) (Auto) 2 % (0-3) Neutrophils # (Auto) 3.5 x10^3uL (1.8-7.7) Lymphocytes # (Auto) 1.2 x10^3/uL (1.0-4.8) Monocytes # (Auto) 0.5 x10^3/uL (0.0-1.1) Eosinophils # (Auto) 0.4 x10^3/uL (0.0-0.7) Basophils # (Auto) 0.1 x10^3/uL (0.0-0.2) Reticulocyte Count (auto) 1.3 % (0.5-2.5) Sodium Level 142 mmol/L (136-145) Potassium Level 4.8 mmol/L (3.5-5.1) Chloride Level 109 mmol/L (98-107) Carbon Dioxide Level 27 mmol/L (21-32) Anion Gap 6 (6-14) Blood Urea Nitrogen 25 mg/dL (8-26) Creatinine 1.4 mg/dL (0.7-1.3) Estimated GFR (Cockcroft-Gault) 50.0 BUN/Creatinine Ratio 18 (6-20) Glucose Level 101 mg/dL (70-99) Calcium Level 8.5 mg/dL (8.5-10.1) Magnesium Level 1.7 mg/dL (1.8-2.4) Total Bilirubin 1.4 mg/dL (0.2-1.0) Aspartate Amino Transf (AST/SGOT) 19 U/L (15-37) Alanine Aminotransferase (ALT/SGPT) 16 U/L (16-63) Alkaline Phosphatase 129 U/L (46-116) Lactate Dehydrogenase 260 U/L (85-227) Total Protein 5.7 g/dL (6.4-8.2) Albumin 2.2 g/dL (3.4-5.0) Albumin/Globulin Ratio 0.6 (1.0-1.7) Thyroid Stimulating Hormone (TSH) 10.042 uIU/mL (0.358-3.74) Laboratory Tests Test 02/06/17 16:33 02/06/17 20:41 02/07/17 04:25 Glucose (Fingerstick) 110 mg/dL (70-99) 92 mg/dL (70-99) White Blood Count 5.7 x10^3/uL (4.0-11.0) Red Blood Count 2.44 x10^6/uL (4.30-5.70) Hemoglobin 7.8 g/dL (13.0-17.5) Hematocrit 24.4 % (39.0-53.0) Mean Corpuscular Volume 100 fL (79-100) Mean Corpuscular Hemoglobin 32 pg (25-35) Mean Corpuscular Hemoglobin Concent 32 g/dL (31-37) Red Cell Distribution Width 18.9 % (11.5-14.5) Platelet Count 221 x10^3/uL (140-400) Neutrophils (%) (Auto) 62 % (31-73) Lymphocytes (%) (Auto) 21 % (24-48) Monocytes (%) (Auto) 8 % (0-9) Eosinophils (%) (Auto) 8 % (0-3) Basophils (%) (Auto) 2 % (0-3) Neutrophils # (Auto) 3.5 x10^3uL (1.8-7.7) Lymphocytes # (Auto) 1.2 x10^3/uL (1.0-4.8) Monocytes # (Auto) 0.5 x10^3/uL (0.0-1.1) Eosinophils # (Auto) 0.4 x10^3/uL (0.0-0.7) Basophils # (Auto) 0.1 x10^3/uL (0.0-0.2) Reticulocyte Count (auto) 1.3 % (0.5-2.5) Sodium Level 142 mmol/L (136-145) Potassium Level 4.8 mmol/L (3.5-5.1) Chloride Level 109 mmol/L (98-107) Carbon Dioxide Level 27 mmol/L (21-32) Anion Gap 6 (6-14) Blood Urea Nitrogen 25 mg/dL (8-26) Creatinine 1.4 mg/dL (0.7-1.3) Estimated GFR (Cockcroft-Gault) 50.0 BUN/Creatinine Ratio 18 (6-20) Glucose Level 101 mg/dL (70-99) Calcium Level 8.5 mg/dL (8.5-10.1) Magnesium Level 1.7 mg/dL (1.8-2.4) Total Bilirubin 1.4 mg/dL (0.2-1.0) Aspartate Amino Transf (AST/SGOT) 19 U/L (15-37) Alanine Aminotransferase (ALT/SGPT) 16 U/L (16-63) Alkaline Phosphatase 129 U/L (46-116) Lactate Dehydrogenase 260 U/L (85-227) Total Protein 5.7 g/dL (6.4-8.2) Albumin 2.2 g/dL (3.4-5.0) Albumin/Globulin Ratio 0.6 (1.0-1.7) Thyroid Stimulating Hormone (TSH) 10.042 uIU/mL (0.358-3.74) Medications Current Medications Morphine Sulfate 2 mg PRN Q15MIN PRN IV/SQ PAIN GREATER THAN 3/10 Last administered on 02/04/17 13:44; Start 02/04/17 at 13:15; Stop 02/04/17 at 15 :05; Status DC Ondansetron HCl (Zofran) 4 mg 1X ONCE IV Last administered on 02/04/17 13:26 ; Start 02/04/17 at 13:15; Stop 02/04/17 at 13:16; Status DC Ondansetron HCl (Zofran) 4 mg PRN Q8HRS PRN IV NAUSEA/VOMITING; Start at 15:00; Stop 02/05/17 at 14:59; Status DC Morphine Sulfate 2 mg PRN Q2HR PRN IV PAIN Last administered on 02/04/17 17: 49; Start 02/04/17 at 15:00; Stop 02/05/17 at 14:59; Status DC Amlodipine Besylate (Norvasc) 5 mg DAILY PO Last administered on 02/05/17 08: 32; Start 02/05/17 at 09:00; Stop 02/07/17 at 09:14; Status DC Aspirin (Ecotrin) 81 mg DAILYWBKFT PO Last administered on 02/07/17 09:11; Start 02/05/17 at 08:00 Atorvastatin Calcium (Lipitor) 40 mg QHS PO Last administered on 02/06/17 21: 36; Start 02/04/17 at 21:00 Vitamin D (Vitamin D3) 2,000 unit DAILY PO Last administered on 02/07/17 09: 12; Start 02/05/17 at 09:00 Clonidine HCl (Catapres) 0.1 mg BID PO Last administered on 02/06/17 21:37; Start 02/04/17 at 21:00; Stop 02/07/17 at 09:14; Status DC Diclofenac Sodium (Voltaren) 1 jose a QID TP Last administered on 02/07/17 13:41 ; Start 02/04/17 at 21:00 Folic Acid (Folic Acid) 1 mg DAILY PO Last administered on 02/07/17 09:12; Start 02/05/17 at 09:00 Acetaminophen/ Hydrocodone Bitart (Lortab 10/325) 1 tab PRN Q6HRS PRN PO MODERATE PAIN Last administered on 02/07/17 09:13; Start 02/04/17 at 19:30 Lidocaine (Lidoderm) 1 patch DAILY TP Last administered on 02/07/17 09:14; Start 02/05/17 at 09:00 Loperamide HCl (Imodium) 2 mg PRN QID PRN PO DIARRHEA; Start 02/04/17 at 19:30 ; Stop 02/05/17 at 13:29; Status DC Metformin HCl (Glucophage) 1,000 mg BIDWMEALS PO Last administered on 09:13; Start 02/05/17 at 08:00 Metoprolol Succinate (Toprol Xl) 25 mg BID PO Last administered on 02/06/17 21:36; Start 02/04/17 at 21:00; Stop 02/07/17 at 09:14; Status DC Oxycodone HCl (OxyCONTIN) 30 mg Q12HR PO Last administered on 02/07/17 09:13 ; Start 02/04/17 at 21:00 Senna/Docusate Sodium (Senna Plus) 2 tab DAILY PO Last administered on 09:13; Start 02/05/17 at 09:00 Gabapentin (Neurontin) 600 mg TID PO Last administered on 02/07/17 13:42; Start 02/04/17 at 21:00 Cholestyramine Resin (Questran Light) 4 gm BID PO ; Start 02/04/17 at 21:15; Stop 02/05/17 at 01:39; Status DC Loperamide HCl (Imodium) 4 mg PRN Q15MIN PRN PO DIARRHEA; Start 02/04/17 at 21 :15 Cholestyramine Resin (Questran Light) 4 gm [id number] PO Last administered on 06:43; Start 02/05/17 at 06:00 Lidocaine/Sodium Bicarbonate (Buffered Lidocaine 1%) 20 ml 1X ONCE IJ Last administered on 02/06/17 11:39; Start 02/06/17 at 11:15; Stop 02/06/17 at 11 :18; Status DC Midazolam HCl (Versed) 2 mg 1X ONCE IV Last administered on 02/06/17 11:40; Start 02/06/17 at 11:15; Stop 02/06/17 at 11:18; Status DC Fentanyl Citrate (Fentanyl 2ml Vial) 100 mcg 1X ONCE IV Last administered on 02/06/17 11:41; Start 02/06/17 at 11:15; Stop 02/06/17 at 11:18; Status DC Amlodipine Besylate (Norvasc) 10 mg DAILY PO Last administered on 02/07/17 09 :26; Start 02/07/17 at 10:00 Magnesium Sulfate/ Dextrose 50 ml @ 25 mls/hr 1X ONCE IV Last administered on 02/07/17 11:55; Start 02/07/17 at 11:30; Stop 02/07/17 at 13:29; Status DC Hydralazine HCl (Apresoline Inj) 10 mg PRN Q4HRS PRN IVP ELEVATED BP, SEE COMMENTS; Start 02/07/17 at 11:15 Levothyroxine Sodium (Synthroid) 25 mcg DAILY07 PO ; Start 02/07/17 at 15:30 Active Scripts Active Metoprolol Succinate ( Xl ) (Metoprolol Succinate) 25 Mg Tab.er.24h 25 Mg PO BID 30 Days Hydrocodone-Apap 10-325 (Hydrocodone Bit/Acetaminophen) 1 Each Tablet 1 Tab PO PRN Q6HRS PRN Senna-Time S Tablet (Sennosides/Docusate Sodium) 1 Each Tablet 2 Tab PO DAILY 10 Days Oxycontin (Oxycodone HCl) 15 Mg Tab.er.12h 30 Mg PO Q12HR Aspirin Ec (Aspirin) 81 Mg Tablet. 81 Mg PO DAILYWBKFT 30 Days Amlodipine Besylate 5 Mg Tablet 5 Mg PO DAILY 30 Days Reported Loperamide (Loperamide Hcl) 2 Mg Capsule 2 Mg PO PRN QID PRN Voltaren (Diclofenac Sodium) 100 Gm Gel..gram. 1 Gm TP QID Lidocaine 1 Each Adh..patch 1 Each TP DAILY Vitamin D3 (Cholecalciferol (Vitamin D3)) 1,000 Unit Tablet 2,000 Unit PO Humira (Adalimumab) 40 Mg/0.8 Ml Pen.ij.kit 1 Syr SQ Q2WKS Folbic Rf Tablet (B12/Levomefolate Calcium/B-6) 1 Each Tablet 1 Each PO Omeprazole 40 Mg Capsule.dr 1 Cap PO DAILY Cholestyramine Packet (Cholestyramine (With Sugar)) 4 Gm Powd.pack 4 Gm PO Gabapentin 600 Mg Tablet 600 Mg PO TID Folic Acid 1 Mg Tablet 1 Tab PO DAILY Clonidine Hcl 0.1 Mg Tablet 0.1 Mg PO BID Metformin Hcl 1,000 Mg Tablet 1,000 Mg PO BIDWMEALS Atorvastatin Calcium 40 Mg Tablet 1 Tab PO DAILY Vitals/I & O Vital Sign - Last 24 Hours 02/06/17 02/06/17 02/06/17 02/06/17 19:15 19:30 21:35 21:35 Temp 97.9 97.9 Pulse 61 Resp 18 16 16 B/P (MAP) 130/77 (94) Pulse Ox 97 O2 Delivery Room Air Room Air Room Air Room Air 02/06/17 02/06/17 02/06/17 02/06/17 21:36 21:37 22:35 23:00 Temp 97.7 97.7 Pulse 61 61 96 Resp 16 18 B/P (MAP) 130/77 130/77 123/63 (83) Pulse Ox 93 O2 Delivery BiPAP/CPAP O2 Flow Rate 2.0 02/07/17 02/07/17 02/07/17 02/07/17 01:35 03:00 07:00 08:00 Temp 97.8 98.5 97.8 98.5 Pulse 64 63 Resp 16 18 18 B/P (MAP) 114/48 (70) 137/70 (92) Pulse Ox 98 99 O2 Delivery Room Air Room Air Room Air O2 Flow Rate 2.0 02/07/17 02/07/17 02/07/17 02/07/17 09:13 09:13 09:26 10:24 Pulse 63 B/P (MAP) 137/70 Pulse Ox 99 99 99 O2 Delivery Room Air Room Air Room Air O2 Flow Rate 2.0 02/07/17 02/07/17 11:20 13:00 Temp 97.9 97.9 Pulse 71 Resp 18 B/P (MAP) 134/68 (90) Pulse Ox 98 98 O2 Delivery Room Air Room Air Intake and Output 02/06/17 02/06/17 02/07/17 14:59 22:59 06:59 Intake Total 310 ml 225 ml Output Total 350 ml 200 ml Balance -40 ml 25 ml JESSICA RAMIREZ III DO Feb 07, 2017 15:48
[2017-02-07 19:00] VITALS: BP 127/58
[2017-02-07] MEDS: ATORVASTATIN CALCIUM 40 MG TABLET. PO SCH (20:57)
[2017-02-07 23:00] VITALS: BP 109/53
[2017-02-08] MEDS: HYDROcodone/APAP 10/325 1 TAB TABLET PO PRN ×3 (00:11→12:42)
[2017-02-08 03:00] VITALS: BP 97/36
[2017-02-08 05:27] LABS: BASO # 0.1 x10^3/uL (0.0-0.2); BASO % 1 % (0-3); EOS % 8 % (0-3); HEMATOCRIT 24.6 % (39.0-53.0); HEMOGLOBIN 7.8 g/dL (13.0-17.5); LYMPH # 1.2 x10^3/uL (1.0-4.8); LYMPH % 25 % (24-48); MEAN CORPUSCULAR HEMOGLOBIN 32 pg (25-35); MEAN CORPUSCULAR HGB CONC 32 g/dL (31-37); MEAN CORPUSCULAR VOLUME 100 fL (79-100); MONO % 7 % (0-9); NEUT % 59 % (31-73); PLATELET COUNT 201 x10^3/uL (140-400); RED BLOOD COUNT 2.46 x10^6/uL (4.30-5.70); RED CELL DISTRIBUTION WIDTH 18.7 % (11.5-14.5); WHITE BLOOD COUNT 4.8 x10^3/uL (4.0-11.0)
[2017-02-08] MEDS: CHOLESTYRAMINE/ASPARTAME 4 GM PACKET PO SCH ×2 (06:00→16:52)
[2017-02-08] MEDS: LEVOTHYROXINE 25 MCG TABLET. PO SCH (06:27)
[2017-02-08 07:39] VITALS: BP 106/56
[2017-02-08] MEDS: LIDOCAINE (700MG/PATCH) PATCH. TP SCH (08:35)
[2017-02-08] MEDS: SENNOSIDES/DOCUSATE 8.6/50MG TABLET. PO SCH (08:35)
[2017-02-08] MEDS: FOLIC ACID 1 MG TABLET. PO SCH (08:36)
[2017-02-08] MEDS: amLODIPine BESYLATE 10 MG TABLET PO SCH (08:36)
[2017-02-08] MEDS: CHOLECALCIFEROL (VITAMIN D3) 1,000 UNIT TABLET PO SCH (08:36)
[2017-02-08] MEDS: ASPIRIN ENTERIC COATED 81 MG TABLET.DR. PO SCH (08:37)
[2017-02-08] MEDS: GABAPENTIN 300 MG CAPSULE. PO SCH ×3 (08:37→21:27)
[2017-02-08] MEDS: oxyCODONE ER 15 MG TAB.ER.12H PO SCH ×2 (08:37→21:28)
[2017-02-08] MEDS: DICLOFENAC SODIUM 1% TOPICAL GEL 100GM TUBE. TP SCH ×4 (08:38→21:00)
--- NOTE | 2017-02-08 08:57 | RAD ---
LUMBAR SPINE 2-3V History:s/p fusion, back pain Comparison: 01/28/2017 Findings:2 views of lumbar spine are submitted. There again has been posterolateral fusion with bilateral pedicle screws at L5, L4, L2, L1 attached to intact vertical rods. There is bone demineralization. Vertebral body stature is similar, similar degree of superior height loss of L2, L3, and T12. AP alignment is similar. Impression: 1.There is posterolateral fusion hardware as stated. There is similar multilevel compression deformity. There is diffuse bone demineralization.
[2017-02-08 11:50] VITALS: BP 98/53
--- NOTE | 2017-02-08 12:17 | PDOC ---
PROGRESS NOTES Chief Complaint Chief Complaint (1) Hyperbilirubinemia Status: Acute History of Present Illness History of Present Illness Pt AAO, sitting upright, NAD, wearing Brace Trunk/spinal support Awaiting Results of Lumbar XR 02/07 Pt has Hypothyroidism TSH 10.4 Ordered Synthroid 25 mcg QD Followed by Dr. Gareth Nettles/Oncology Pt undergoing BM Bx yesterday, awaiting results HH continue to decline with current labs Hgb 7.8 Hct 24.4 Vitals Vitals Vital Signs Date Time Temp Pulse Resp B/P (MAP) Pulse Ox O2 Delivery O2 Flow Rate FiO2 02/08/17 11:50 97.5 73 18 98/53 (68) 97 Room Air 97.5 02/08/17 07:30 2.0 Physical Exam General: Alert, Oriented X3, Cooperative, No acute distress Heart: Regular rate Lungs: Clear, Other (No wheezes or rales) Extremities: No clubbing, No cyanosis, No edema Skin: No breakdown, No significant lesion Labs LABS Laboratory Tests Test 02/08/17 04:40 White Blood Count 4.8 x10^3/uL (4.0-11.0) Red Blood Count 2.46 x10^6/uL (4.30-5.70) Hemoglobin 7.8 g/dL (13.0-17.5) Hematocrit 24.6 % (39.0-53.0) Mean Corpuscular Volume 100 fL (79-100) Mean Corpuscular Hemoglobin 32 pg (25-35) Mean Corpuscular Hemoglobin Concent 32 g/dL (31-37) Red Cell Distribution Width 18.7 % (11.5-14.5) Platelet Count 201 x10^3/uL (140-400) Neutrophils (%) (Auto) 59 % (31-73) Lymphocytes (%) (Auto) 25 % (24-48) Monocytes (%) (Auto) 7 % (0-9) Eosinophils (%) (Auto) 8 % (0-3) Basophils (%) (Auto) 1 % (0-3) Neutrophils # (Auto) 2.8 x10^3uL (1.8-7.7) Lymphocytes # (Auto) 1.2 x10^3/uL (1.0-4.8) Monocytes # (Auto) 0.3 x10^3/uL (0.0-1.1) Eosinophils # (Auto) 0.4 x10^3/uL (0.0-0.7) Basophils # (Auto) 0.1 x10^3/uL (0.0-0.2) Review of Systems Review of Systems General: Denies Fatigue, Hunger Pulm: No SOB, Hemoptysis Assessment and Plan Assessmemt and Plan Problems Medical Problems: (1) Hyperbilirubinemia Status: Acute Arrhythmia Probable Hemolytic Anemia Plan: Hope to DC if agreeable with Cardiology Continue Cardiac Monitoring Continue Cardiac Diet Continue Monitoring TSH (Hypothyroidism) Continue Home Meds Continue PT/OT Recheck Labs FU Dr Servin results of BM Bx Problems: Comment Review of Relevant I have reviewed the following items bernadine (where applicable) has been applied. Labs Laboratory Tests Test 02/06/17 12:34 02/06/17 16:33 02/06/17 20:41 02/07/17 04:25 Glucose (Fingerstick) 104 mg/dL (70-99) 110 mg/dL (70-99) 92 mg/dL (70-99) White Blood Count 5.7 x10^3/uL (4.0-11.0) Red Blood Count 2.44 x10^6/uL (4.30-5.70) Hemoglobin 7.8 g/dL (13.0-17.5) Hematocrit 24.4 % (39.0-53.0) Mean Corpuscular Volume 100 fL (79-100) Mean Corpuscular Hemoglobin 32 pg (25-35) Mean Corpuscular Hemoglobin Concent 32 g/dL (31-37) Red Cell Distribution Width 18.9 % (11.5-14.5) Platelet Count 221 x10^3/uL (140-400) Neutrophils (%) (Auto) 62 % (31-73) Lymphocytes (%) (Auto) 21 % (24-48) Monocytes (%) (Auto) 8 % (0-9) Eosinophils (%) (Auto) 8 % (0-3) Basophils (%) (Auto) 2 % (0-3) Neutrophils # (Auto) 3.5 x10^3uL (1.8-7.7) Lymphocytes # (Auto) 1.2 x10^3/uL (1.0-4.8) Monocytes # (Auto) 0.5 x10^3/uL (0.0-1.1) Eosinophils # (Auto) 0.4 x10^3/uL (0.0-0.7) Basophils # (Auto) 0.1 x10^3/uL (0.0-0.2) Reticulocyte Count (auto) 1.3 % (0.5-2.5) Sodium Level 142 mmol/L (136-145) Potassium Level 4.8 mmol/L (3.5-5.1) Chloride Level 109 mmol/L (98-107) Carbon Dioxide Level 27 mmol/L (21-32) Anion Gap 6 (6-14) Blood Urea Nitrogen 25 mg/dL (8-26) Creatinine 1.4 mg/dL (0.7-1.3) Estimated GFR (Cockcroft-Gault) 50.0 BUN/Creatinine Ratio 18 (6-20) Glucose Level 101 mg/dL (70-99) Calcium Level 8.5 mg/dL (8.5-10.1) Magnesium Level 1.7 mg/dL (1.8-2.4) Total Bilirubin 1.4 mg/dL (0.2-1.0) Aspartate Amino Transf (AST/SGOT) 19 U/L (15-37) Alanine Aminotransferase (ALT/SGPT) 16 U/L (16-63) Alkaline Phosphatase 129 U/L (46-116) Lactate Dehydrogenase 260 U/L (85-227) Total Protein 5.7 g/dL (6.4-8.2) Albumin 2.2 g/dL (3.4-5.0) Albumin/Globulin Ratio 0.6 (1.0-1.7) Thyroid Stimulating Hormone (TSH) 10.042 uIU/mL (0.358-3.74) Test 02/08/17 04:40 White Blood Count 4.8 x10^3/uL (4.0-11.0) Red Blood Count 2.46 x10^6/uL (4.30-5.70) Hemoglobin 7.8 g/dL (13.0-17.5) Hematocrit 24.6 % (39.0-53.0) Mean Corpuscular Volume 100 fL (79-100) Mean Corpuscular Hemoglobin 32 pg (25-35) Mean Corpuscular Hemoglobin Concent 32 g/dL (31-37) Red Cell Distribution Width 18.7 % (11.5-14.5) Platelet Count 201 x10^3/uL (140-400) Neutrophils (%) (Auto) 59 % (31-73) Lymphocytes (%) (Auto) 25 % (24-48) Monocytes (%) (Auto) 7 % (0-9) Eosinophils (%) (Auto) 8 % (0-3) Basophils (%) (Auto) 1 % (0-3) Neutrophils # (Auto) 2.8 x10^3uL (1.8-7.7) Lymphocytes # (Auto) 1.2 x10^3/uL (1.0-4.8) Monocytes # (Auto) 0.3 x10^3/uL (0.0-1.1) Eosinophils # (Auto) 0.4 x10^3/uL (0.0-0.7) Basophils # (Auto) 0.1 x10^3/uL (0.0-0.2) Laboratory Tests Test 02/08/17 04:40 White Blood Count 4.8 x10^3/uL (4.0-11.0) Red Blood Count 2.46 x10^6/uL (4.30-5.70) Hemoglobin 7.8 g/dL (13.0-17.5) Hematocrit 24.6 % (39.0-53.0) Mean Corpuscular Volume 100 fL (79-100) Mean Corpuscular Hemoglobin 32 pg (25-35) Mean Corpuscular Hemoglobin Concent 32 g/dL (31-37) Red Cell Distribution Width 18.7 % (11.5-14.5) Platelet Count 201 x10^3/uL (140-400) Neutrophils (%) (Auto) 59 % (31-73) Lymphocytes (%) (Auto) 25 % (24-48) Monocytes (%) (Auto) 7 % (0-9) Eosinophils (%) (Auto) 8 % (0-3) Basophils (%) (Auto) 1 % (0-3) Neutrophils # (Auto) 2.8 x10^3uL (1.8-7.7) Lymphocytes # (Auto) 1.2 x10^3/uL (1.0-4.8) Monocytes # (Auto) 0.3 x10^3/uL (0.0-1.1) Eosinophils # (Auto) 0.4 x10^3/uL (0.0-0.7) Basophils # (Auto) 0.1 x10^3/uL (0.0-0.2) Medications Current Medications Morphine Sulfate 2 mg PRN Q15MIN PRN IV/SQ PAIN GREATER THAN 3/10 Last administered on 02/04/17 13:44; Start 02/04/17 at 13:15; Stop 02/04/17 at 15 :05; Status DC Ondansetron HCl (Zofran) 4 mg 1X ONCE IV Last administered on 02/04/17 13:26 ; Start 02/04/17 at 13:15; Stop 02/04/17 at 13:16; Status DC Ondansetron HCl (Zofran) 4 mg PRN Q8HRS PRN IV NAUSEA/VOMITING; Start at 15:00; Stop 02/05/17 at 14:59; Status DC Morphine Sulfate 2 mg PRN Q2HR PRN IV PAIN Last administered on 02/04/17 17: 49; Start 02/04/17 at 15:00; Stop 02/05/17 at 14:59; Status DC Amlodipine Besylate (Norvasc) 5 mg DAILY PO Last administered on 02/05/17 08: 32; Start 02/05/17 at 09:00; Stop 02/07/17 at 09:14; Status DC Aspirin (Ecotrin) 81 mg DAILYWBKFT PO Last administered on 02/08/17 08:37; Start 02/05/17 at 08:00 Atorvastatin Calcium (Lipitor) 40 mg QHS PO Last administered on 02/07/17 20: 57; Start 02/04/17 at 21:00 Vitamin D (Vitamin D3) 2,000 unit DAILY PO Last administered on 02/08/17 08: 36; Start 02/05/17 at 09:00 Clonidine HCl (Catapres) 0.1 mg BID PO Last administered on 02/06/17 21:37; Start 02/04/17 at 21:00; Stop 02/07/17 at 09:14; Status DC Diclofenac Sodium (Voltaren) 1 jose a QID TP Last administered on 02/08/17 08:38 ; Start 02/04/17 at 21:00 Folic Acid (Folic Acid) 1 mg DAILY PO Last administered on 02/08/17 08:36; Start 02/05/17 at 09:00 Acetaminophen/ Hydrocodone Bitart (Lortab 10/325) 1 tab PRN Q6HRS PRN PO MODERATE PAIN Last administered on 02/08/17 06:30; Start 02/04/17 at 19:30 Lidocaine (Lidoderm) 1 patch DAILY TP Last administered on 02/08/17 08:35; Start 02/05/17 at 09:00 Loperamide HCl (Imodium) 2 mg PRN QID PRN PO DIARRHEA; Start 02/04/17 at 19:30 ; Stop 02/05/17 at 13:29; Status DC Metformin HCl (Glucophage) 1,000 mg BIDWMEALS PO Last administered on 08:36; Start 02/05/17 at 08:00 Metoprolol Succinate (Toprol Xl) 25 mg BID PO Last administered on 02/06/17 21:36; Start 02/04/17 at 21:00; Stop 02/07/17 at 09:14; Status DC Oxycodone HCl (OxyCONTIN) 30 mg Q12HR PO Last administered on 02/08/17 08:37 ; Start 02/04/17 at 21:00 Senna/Docusate Sodium (Senna Plus) 2 tab DAILY PO Last administered on 08:35; Start 02/05/17 at 09:00 Gabapentin (Neurontin) 600 mg TID PO Last administered on 02/08/17 08:37; Start 02/04/17 at 21:00 Cholestyramine Resin (Questran Light) 4 gm BID PO ; Start 02/04/17 at 21:15; Stop 02/05/17 at 01:39; Status DC Loperamide HCl (Imodium) 4 mg PRN Q15MIN PRN PO DIARRHEA; Start 02/04/17 at 21 :15 Cholestyramine Resin (Questran Light) 4 gm [id number] PO Last administered on 06:00; Start 02/05/17 at 06:00 Lidocaine/Sodium Bicarbonate (Buffered Lidocaine 1%) 20 ml 1X ONCE IJ Last administered on 02/06/17 11:39; Start 02/06/17 at 11:15; Stop 02/06/17 at 11 :18; Status DC Midazolam HCl (Versed) 2 mg 1X ONCE IV Last administered on 02/06/17 11:40; Start 02/06/17 at 11:15; Stop 02/06/17 at 11:18; Status DC Fentanyl Citrate (Fentanyl 2ml Vial) 100 mcg 1X ONCE IV Last administered on 02/06/17 11:41; Start 02/06/17 at 11:15; Stop 02/06/17 at 11:18; Status DC Amlodipine Besylate (Norvasc) 10 mg DAILY PO Last administered on 02/08/17 08 :36; Start 02/07/17 at 10:00 Magnesium Sulfate/ Dextrose 50 ml @ 25 mls/hr 1X ONCE IV Last administered on 02/07/17 11:55; Start 02/07/17 at 11:30; Stop 02/07/17 at 13:29; Status DC Hydralazine HCl (Apresoline Inj) 10 mg PRN Q4HRS PRN IVP ELEVATED BP, SEE COMMENTS; Start 02/07/17 at 11:15 Levothyroxine Sodium (Synthroid) 25 mcg DAILY07 PO Last administered on 06:27; Start 02/07/17 at 15:30 Active Scripts Active Metoprolol Succinate ( Xl ) (Metoprolol Succinate) 25 Mg Tab.er.24h 25 Mg PO BID 30 Days Hydrocodone-Apap 10-325 (Hydrocodone Bit/Acetaminophen) 1 Each Tablet 1 Tab PO PRN Q6HRS PRN Senna-Time S Tablet (Sennosides/Docusate Sodium) 1 Each Tablet 2 Tab PO DAILY 10 Days Oxycontin (Oxycodone HCl) 15 Mg Tab.er.12h 30 Mg PO Q12HR Aspirin Ec (Aspirin) 81 Mg Tablet.dr 81 Mg PO DAILYWBKFT 30 Days Amlodipine Besylate 5 Mg Tablet 5 Mg PO DAILY 30 Days Reported Loperamide (Loperamide Hcl) 2 Mg Capsule 2 Mg PO PRN QID PRN Voltaren (Diclofenac Sodium) 100 Gm Gel..gram. 1 Gm TP QID Lidocaine 1 Each Adh..patch 1 Each TP DAILY Vitamin D3 (Cholecalciferol (Vitamin D3)) 1,000 Unit Tablet 2,000 Unit PO Humira (Adalimumab) 40 Mg/0.8 Ml Pen.ij.kit 1 Syr SQ Q2WKS Folbic Rf Tablet (B12/Levomefolate Calcium/B-6) 1 Each Tablet 1 Each PO Omeprazole 40 Mg Capsule. 1 Cap PO DAILY Cholestyramine Packet (Cholestyramine (With Sugar)) 4 Gm Powd.pack 4 Gm PO Gabapentin 600 Mg Tablet 600 Mg PO TID Folic Acid 1 Mg Tablet 1 Tab PO DAILY Clonidine Hcl 0.1 Mg Tablet 0.1 Mg PO BID Metformin Hcl 1,000 Mg Tablet 1,000 Mg PO BIDWMEALS Atorvastatin Calcium 40 Mg Tablet 1 Tab PO DAILY Vitals/I & O Vital Sign - Last 24 Hours 02/07/17 02/07/17 02/07/17 02/07/17 13:00 15:00 18:08 19:00 Temp 98.3 97.9 98.3 97.9 Pulse 73 51 Resp 18 18 B/P (MAP) 95/56 (69) 127/58 (81) Pulse Ox 98 97 97 94 O2 Delivery Room Air Room Air Room Air 02/07/17 02/07/17 02/07/17 02/08/17 19:20 20:57 23:00 00:11 Temp 97.7 97.7 Pulse 68 Resp 18 18 18 B/P (MAP) 109/53 (71) Pulse Ox 99 O2 Delivery Room Air Room Air Room Air Room Air 02/08/17 02/08/17 02/08/17 02/08/17 00:57 00:57 03:00 06:30 Temp 97.9 97.9 Pulse 50 Resp 18 18 18 18 B/P (MAP) 97/36 (56) Pulse Ox 98 O2 Delivery Room Air Room Air Room Air 02/08/17 02/08/17 02/08/17 02/08/17 07:30 07:39 08:00 08:36 Temp 98.0 98.0 Pulse 64 64 Resp 18 B/P (MAP) 106/56 (73) 106/56 Pulse Ox 94 94 O2 Delivery Room Air Room Air Room Air O2 Flow Rate 2.0 02/08/17 02/08/17 08:37 11:50 Temp 97.5 97.5 Pulse 73 Resp 18 B/P (MAP) 98/53 (68) Pulse Ox 94 97 O2 Delivery Room Air Room Air Intake and Output 11/22/17 11/22/17 11/23/17 15:00 23:00 07:00 Intake Total 260 ml 120 ml 200 ml Output Total 375 ml 50 ml Balance 260 ml -255 ml 150 ml JESSICA RAMIREZ III DO Feb 08, 2017 12:17
[2017-02-08 15:00] VITALS: BP 123/73
[2017-02-08 19:15] VITALS: BP 122/66
[2017-02-08] MEDS: ATORVASTATIN CALCIUM 40 MG TABLET. PO SCH (21:28)
[2017-02-08 23:06] VITALS: BP 100/60
[2017-02-09 03:13] VITALS: BP 116/66
[2017-02-09] MEDS: CHOLESTYRAMINE/ASPARTAME 4 GM PACKET PO SCH ×2 (06:13→17:17)
[2017-02-09] MEDS: LEVOTHYROXINE 25 MCG TABLET. PO SCH (06:15)
[2017-02-09 06:18] LABS: BASO # 0.1 x10^3/uL (0.0-0.2); BASO % 1 % (0-3); EOS % 9 % (0-3); HEMOGLOBIN 8.3 g/dL (13.0-17.5); LYMPH # 0.9 x10^3/uL (1.0-4.8); LYMPH % 19 % (24-48); MEAN CORPUSCULAR HEMOGLOBIN 33 pg (25-35); MEAN CORPUSCULAR HGB CONC 33 g/dL (31-37); MEAN CORPUSCULAR VOLUME 99 fL (79-100); MONO % 6 % (0-9); NEUT % 65 % (31-73); PLATELET COUNT 216 x10^3/uL (140-400); RED BLOOD COUNT 2.54 x10^6/uL (4.30-5.70); RED CELL DISTRIBUTION WIDTH 18.1 % (11.5-14.5); WHITE BLOOD COUNT 4.9 x10^3/uL (4.0-11.0)
[2017-02-09 06:53] LABS: ALBUMIN 2.4 g/dL (3.4-5.0); ALBUMIN/GLOBULIN RATIO 0.7 (1.0-1.7); CALCIUM 8.6 mg/dL (8.5-10.1); CREATININE 1.2 mg/dL (0.7-1.3); GFR 59.7; POTASSIUM 3.6 mmol/L (3.5-5.1); TOTAL BILIRUBIN 1.3 mg/dL (0.2-1.0)
[2017-02-09 07:00] VITALS: BP 116/54
[2017-02-09] MEDS: GABAPENTIN 300 MG CAPSULE. PO SCH ×3 (08:29→20:07)
[2017-02-09] MEDS: DICLOFENAC SODIUM 1% TOPICAL GEL 100GM TUBE. TP SCH ×4 (08:29→20:08)
[2017-02-09] MEDS: FOLIC ACID 1 MG TABLET. PO SCH (08:29)
[2017-02-09] MEDS: LIDOCAINE (700MG/PATCH) PATCH. TP SCH (08:29)
[2017-02-09] MEDS: ASPIRIN ENTERIC COATED 81 MG TABLET.DR. PO SCH (08:29)
[2017-02-09] MEDS: amLODIPine BESYLATE 10 MG TABLET PO SCH (08:30)
[2017-02-09] MEDS: CHOLECALCIFEROL (VITAMIN D3) 1,000 UNIT TABLET PO SCH (08:30)
[2017-02-09] MEDS: oxyCODONE ER 15 MG TAB.ER.12H PO SCH ×2 (08:30→20:08)
[2017-02-09] MEDS: SENNOSIDES/DOCUSATE 8.6/50MG TABLET. PO SCH (08:31)
[2017-02-09 11:14] VITALS: BP 121/53
--- NOTE | 2017-02-09 11:26 | PDOC ---
PROGRESS NOTES Chief Complaint Chief Complaint (1) Hyperbilirubinemia Status: Acute History of Present Illness History of Present Illness Pt AAO, lying down with son at bedside DW Son, reviewed Telemetry No pauses Mild Distress dt back and Rt hip pain Results of Lumbar XR 02/07, Diffuse Bone Demineralization Followed by Dr. Gareth Nettles/Oncology Awaiting results of BM Bx HH upward trend Hgb 8.3 HCT 25.0 Vitals Vitals Vital Signs Date Time Temp Pulse Resp B/P (MAP) Pulse Ox O2 Delivery O2 Flow Rate FiO2 02/09/17 08:30 67 116/54 02/09/17 08:30 Room Air 02/09/17 07:00 97.7 18 98 97.7 02/08/17 12:41 2.0 Physical Exam General: Alert, Oriented X3, Cooperative, mild distress Heart: Regular rate, No murmurs Lungs: Clear, Other (No wheezes or rales) Abdomen: Normal bowel sounds, No tenderness Extremities: No clubbing, No cyanosis, No edema Skin: No breakdown, No significant lesion Labs LABS Laboratory Tests Test 02/09/17 05:45 02/09/17 08:13 02/09/17 10:59 White Blood Count 4.9 x10^3/uL (4.0-11.0) Red Blood Count 2.54 x10^6/uL (4.30-5.70) Hemoglobin 8.3 g/dL (13.0-17.5) Hematocrit 25.0 % (39.0-53.0) Mean Corpuscular Volume 99 fL (79-100) Mean Corpuscular Hemoglobin 33 pg (25-35) Mean Corpuscular Hemoglobin Concent 33 g/dL (31-37) Red Cell Distribution Width 18.1 % (11.5-14.5) Platelet Count 216 x10^3/uL (140-400) Neutrophils (%) (Auto) 65 % (31-73) Lymphocytes (%) (Auto) 19 % (24-48) Monocytes (%) (Auto) 6 % (0-9) Eosinophils (%) (Auto) 9 % (0-3) Basophils (%) (Auto) 1 % (0-3) Neutrophils # (Auto) 3.2 x10^3uL (1.8-7.7) Lymphocytes # (Auto) 0.9 x10^3/uL (1.0-4.8) Monocytes # (Auto) 0.3 x10^3/uL (0.0-1.1) Eosinophils # (Auto) 0.4 x10^3/uL (0.0-0.7) Basophils # (Auto) 0.1 x10^3/uL (0.0-0.2) Sodium Level 140 mmol/L (136-145) Potassium Level 3.6 mmol/L (3.5-5.1) Chloride Level 107 mmol/L (98-107) Carbon Dioxide Level 25 mmol/L (21-32) Anion Gap 8 (6-14) Blood Urea Nitrogen 21 mg/dL (8-26) Creatinine 1.2 mg/dL (0.7-1.3) Estimated GFR (Cockcroft-Gault) 59.7 BUN/Creatinine Ratio 18 (6-20) Glucose Level 99 mg/dL (70-99) Calcium Level 8.6 mg/dL (8.5-10.1) Total Bilirubin 1.3 mg/dL (0.2-1.0) Aspartate Amino Transf (AST/SGOT) 19 U/L (15-37) Alanine Aminotransferase (ALT/SGPT) 14 U/L (16-63) Alkaline Phosphatase 145 U/L (46-116) Total Protein 6.0 g/dL (6.4-8.2) Albumin 2.4 g/dL (3.4-5.0) Albumin/Globulin Ratio 0.7 (1.0-1.7) Glucose (Fingerstick) 117 mg/dL (70-99) 109 mg/dL (70-99) Review of Systems Review of Systems General: Admits Pain Rt hip, Denies Nausea Lungs: Denies SOB, Dyspnea Assessment and Plan Assessmemt and Plan Problems Medical Problems: (1) Hyperbilirubinemia Status: Acute Hemolytic Anemia Chronic Back Pain Probable Hypothyroidism Plan: Hope to DC if agreeable with Cardiology Continue CM Continue Monitor Potassium (K 3.6) Recheck labs Continue Home Meds Continue Cardiac Diet Continue PT/OT Problems: Comment Review of Relevant I have reviewed the following items bernadine (where applicable) has been applied. Labs Laboratory Tests Test 02/08/17 04:40 02/09/17 05:45 02/09/17 08:13 02/09/17 10:59 White Blood Count 4.8 x10^3/uL (4.0-11.0) 4.9 x10^3/uL (4.0-11.0) Red Blood Count 2.46 x10^6/uL (4.30-5.70) 2.54 x10^6/uL (4.30-5.70) Hemoglobin 7.8 g/dL (13.0-17.5) 8.3 g/dL (13.0-17.5) Hematocrit 24.6 % (39.0-53.0) 25.0 % (39.0-53.0) Mean Corpuscular Volume 100 fL (79-100) 99 fL (79-100) Mean Corpuscular Hemoglobin 32 pg (25-35) 33 pg (25-35) Mean Corpuscular Hemoglobin Concent 32 g/dL (31-37) 33 g/dL (31-37) Red Cell Distribution Width 18.7 % (11.5-14.5) 18.1 % (11.5-14.5) Platelet Count 201 x10^3/uL (140-400) 216 x10^3/uL (140-400) Neutrophils (%) (Auto) 59 % (31-73) 65 % (31-73) Lymphocytes (%) (Auto) 25 % (24-48) 19 % (24-48) Monocytes (%) (Auto) 7 % (0-9) 6 % (0-9) Eosinophils (%) (Auto) 8 % (0-3) 9 % (0-3) Basophils (%) (Auto) 1 % (0-3) 1 % (0-3) Neutrophils # (Auto) 2.8 x10^3uL (1.8-7.7) 3.2 x10^3uL (1.8-7.7) Lymphocytes # (Auto) 1.2 x10^3/uL (1.0-4.8) 0.9 x10^3/uL (1.0-4.8) Monocytes # (Auto) 0.3 x10^3/uL (0.0-1.1) 0.3 x10^3/uL (0.0-1.1) Eosinophils # (Auto) 0.4 x10^3/uL (0.0-0.7) 0.4 x10^3/uL (0.0-0.7) Basophils # (Auto) 0.1 x10^3/uL (0.0-0.2) 0.1 x10^3/uL (0.0-0.2) Sodium Level 140 mmol/L (136-145) Potassium Level 3.6 mmol/L (3.5-5.1) Chloride Level 107 mmol/L (98-107) Carbon Dioxide Level 25 mmol/L (21-32) Anion Gap 8 (6-14) Blood Urea Nitrogen 21 mg/dL (8-26) Creatinine 1.2 mg/dL (0.7-1.3) Estimated GFR (Cockcroft-Gault) 59.7 BUN/Creatinine Ratio 18 (6-20) Glucose Level 99 mg/dL (70-99) Calcium Level 8.6 mg/dL (8.5-10.1) Total Bilirubin 1.3 mg/dL (0.2-1.0) Aspartate Amino Transf (AST/SGOT) 19 U/L (15-37) Alanine Aminotransferase (ALT/SGPT) 14 U/L (16-63) Alkaline Phosphatase 145 U/L (46-116) Total Protein 6.0 g/dL (6.4-8.2) Albumin 2.4 g/dL (3.4-5.0) Albumin/Globulin Ratio 0.7 (1.0-1.7) Glucose (Fingerstick) 117 mg/dL (70-99) 109 mg/dL (70-99) Laboratory Tests Test 02/09/17 05:45 02/09/17 08:13 02/09/17 10:59 White Blood Count 4.9 x10^3/uL (4.0-11.0) Red Blood Count 2.54 x10^6/uL (4.30-5.70) Hemoglobin 8.3 g/dL (13.0-17.5) Hematocrit 25.0 % (39.0-53.0) Mean Corpuscular Volume 99 fL (79-100) Mean Corpuscular Hemoglobin 33 pg (25-35) Mean Corpuscular Hemoglobin Concent 33 g/dL (31-37) Red Cell Distribution Width 18.1 % (11.5-14.5) Platelet Count 216 x10^3/uL (140-400) Neutrophils (%) (Auto) 65 % (31-73) Lymphocytes (%) (Auto) 19 % (24-48) Monocytes (%) (Auto) 6 % (0-9) Eosinophils (%) (Auto) 9 % (0-3) Basophils (%) (Auto) 1 % (0-3) Neutrophils # (Auto) 3.2 x10^3uL (1.8-7.7) Lymphocytes # (Auto) 0.9 x10^3/uL (1.0-4.8) Monocytes # (Auto) 0.3 x10^3/uL (0.0-1.1) Eosinophils # (Auto) 0.4 x10^3/uL (0.0-0.7) Basophils # (Auto) 0.1 x10^3/uL (0.0-0.2) Sodium Level 140 mmol/L (136-145) Potassium Level 3.6 mmol/L (3.5-5.1) Chloride Level 107 mmol/L (98-107) Carbon Dioxide Level 25 mmol/L (21-32) Anion Gap 8 (6-14) Blood Urea Nitrogen 21 mg/dL (8-26) Creatinine 1.2 mg/dL (0.7-1.3) Estimated GFR (Cockcroft-Gault) 59.7 BUN/Creatinine Ratio 18 (6-20) Glucose Level 99 mg/dL (70-99) Calcium Level 8.6 mg/dL (8.5-10.1) Total Bilirubin 1.3 mg/dL (0.2-1.0) Aspartate Amino Transf (AST/SGOT) 19 U/L (15-37) Alanine Aminotransferase (ALT/SGPT) 14 U/L (16-63) Alkaline Phosphatase 145 U/L (46-116) Total Protein 6.0 g/dL (6.4-8.2) Albumin 2.4 g/dL (3.4-5.0) Albumin/Globulin Ratio 0.7 (1.0-1.7) Glucose (Fingerstick) 117 mg/dL (70-99) 109 mg/dL (70-99) Medications Current Medications Morphine Sulfate 2 mg PRN Q15MIN PRN IV/SQ PAIN GREATER THAN 3/10 Last administered on 02/04/17 13:44; Start 02/04/17 at 13:15; Stop 02/04/17 at 15 :05; Status DC Ondansetron HCl (Zofran) 4 mg 1X ONCE IV Last administered on 02/04/17 13:26 ; Start 02/04/17 at 13:15; Stop 02/04/17 at 13:16; Status DC Ondansetron HCl (Zofran) 4 mg PRN Q8HRS PRN IV NAUSEA/VOMITING; Start at 15:00; Stop 02/05/17 at 14:59; Status DC Morphine Sulfate 2 mg PRN Q2HR PRN IV PAIN Last administered on 02/04/17 17: 49; Start 02/04/17 at 15:00; Stop 02/05/17 at 14:59; Status DC Amlodipine Besylate (Norvasc) 5 mg DAILY PO Last administered on 02/05/17 08: 32; Start 02/05/17 at 09:00; Stop 02/07/17 at 09:14; Status DC Aspirin (Ecotrin) 81 mg DAILYWBKFT PO Last administered on 02/09/17 08:29; Start 02/05/17 at 08:00 Atorvastatin Calcium (Lipitor) 40 mg QHS PO Last administered on 02/08/17 21: 28; Start 02/04/17 at 21:00 Vitamin D (Vitamin D3) 2,000 unit DAILY PO Last administered on 02/09/17 08: 30; Start 02/05/17 at 09:00 Clonidine HCl (Catapres) 0.1 mg BID PO Last administered on 02/06/17 21:37; Start 02/04/17 at 21:00; Stop 02/07/17 at 09:14; Status DC Diclofenac Sodium (Voltaren) 1 jose a QID TP Last administered on 02/09/17 08:29 ; Start 02/04/17 at 21:00 Folic Acid (Folic Acid) 1 mg DAILY PO Last administered on 02/09/17 08:29; Start 02/05/17 at 09:00 Acetaminophen/ Hydrocodone Bitart (Lortab 10/325) 1 tab PRN Q6HRS PRN PO MODERATE PAIN Last administered on 02/08/17 12:42; Start 02/04/17 at 19:30 Lidocaine (Lidoderm) 1 patch DAILY TP Last administered on 02/09/17 08:29; Start 02/05/17 at 09:00 Loperamide HCl (Imodium) 2 mg PRN QID PRN PO DIARRHEA; Start 02/04/17 at 19:30 ; Stop 02/05/17 at 13:29; Status DC Metformin HCl (Glucophage) 1,000 mg BIDWMEALS PO Last administered on 08:30; Start 02/05/17 at 08:00 Metoprolol Succinate (Toprol Xl) 25 mg BID PO Last administered on 02/06/17 21:36; Start 02/04/17 at 21:00; Stop 02/07/17 at 09:14; Status DC Oxycodone HCl (OxyCONTIN) 30 mg Q12HR PO Last administered on 02/09/17 08:30 ; Start 02/04/17 at 21:00 Senna/Docusate Sodium (Senna Plus) 2 tab DAILY PO Last administered on 08:31; Start 02/05/17 at 09:00 Gabapentin (Neurontin) 600 mg TID PO Last administered on 02/09/17 08:29; Start 02/04/17 at 21:00 Cholestyramine Resin (Questran Light) 4 gm BID PO ; Start 02/04/17 at 21:15; Stop 02/05/17 at 01:39; Status DC Loperamide HCl (Imodium) 4 mg PRN Q15MIN PRN PO DIARRHEA; Start 02/04/17 at 21 :15 Cholestyramine Resin (Questran Light) 4 gm [id number] PO Last administered on 06:13; Start 02/05/17 at 06:00 Lidocaine/Sodium Bicarbonate (Buffered Lidocaine 1%) 20 ml 1X ONCE IJ Last administered on 02/06/17 11:39; Start 02/06/17 at 11:15; Stop 02/06/17 at 11 :18; Status DC Midazolam HCl (Versed) 2 mg 1X ONCE IV Last administered on 02/06/17 11:40; Start 02/06/17 at 11:15; Stop 02/06/17 at 11:18; Status DC Fentanyl Citrate (Fentanyl 2ml Vial) 100 mcg 1X ONCE IV Last administered on 02/06/17 11:41; Start 02/06/17 at 11:15; Stop 02/06/17 at 11:18; Status DC Amlodipine Besylate (Norvasc) 10 mg DAILY PO Last administered on 02/09/17 08 :30; Start 02/07/17 at 10:00 Magnesium Sulfate/ Dextrose 50 ml @ 25 mls/hr 1X ONCE IV Last administered on 02/07/17 11:55; Start 02/07/17 at 11:30; Stop 02/07/17 at 13:29; Status DC Hydralazine HCl (Apresoline Inj) 10 mg PRN Q4HRS PRN IVP ELEVATED BP, SEE COMMENTS; Start 02/07/17 at 11:15 Levothyroxine Sodium (Synthroid) 25 mcg DAILY07 PO Last administered on 06:15; Start 02/07/17 at 15:30 Active Scripts Active Metoprolol Succinate ( Xl ) (Metoprolol Succinate) 25 Mg Tab.er.24h 25 Mg PO BID 30 Days Hydrocodone-Apap 10-325 (Hydrocodone Bit/Acetaminophen) 1 Each Tablet 1 Tab PO PRN Q6HRS PRN Senna-Time S Tablet (Sennosides/Docusate Sodium) 1 Each Tablet 2 Tab PO DAILY 10 Days Oxycontin (Oxycodone HCl) 15 Mg Tab.er.12h 30 Mg PO Q12HR Aspirin Ec (Aspirin) 81 Mg Tablet. 81 Mg PO DAILYWBKFT 30 Days Amlodipine Besylate 5 Mg Tablet 5 Mg PO DAILY 30 Days Reported Loperamide (Loperamide Hcl) 2 Mg Capsule 2 Mg PO PRN QID PRN Voltaren (Diclofenac Sodium) 100 Gm Gel..gram. 1 Gm TP QID Lidocaine 1 Each Adh..patch 1 Each TP DAILY Vitamin D3 (Cholecalciferol (Vitamin D3)) 1,000 Unit Tablet 2,000 Unit PO Humira (Adalimumab) 40 Mg/0.8 Ml Pen.ij.kit 1 Syr SQ Q2WKS Folbic Rf Tablet (B12/Levomefolate Calcium/B-6) 1 Each Tablet 1 Each PO Omeprazole 40 Mg Capsule. 1 Cap PO DAILY Cholestyramine Packet (Cholestyramine (With Sugar)) 4 Gm Powd.pack 4 Gm PO Gabapentin 600 Mg Tablet 600 Mg PO TID Folic Acid 1 Mg Tablet 1 Tab PO DAILY Clonidine Hcl 0.1 Mg Tablet 0.1 Mg PO BID Metformin Hcl 1,000 Mg Tablet 1,000 Mg PO BIDWMEALS Atorvastatin Calcium 40 Mg Tablet 1 Tab PO DAILY Vitals/I & O Vital Sign - Last 24 Hours 02/08/17 02/08/17 02/08/17 02/08/17 11:50 12:41 12:42 13:48 Temp 97.5 97.5 Pulse 73 Resp 18 B/P (MAP) 98/53 (68) Pulse Ox 97 97 97 97 O2 Delivery Room Air Room Air Room Air Room Air O2 Flow Rate 2.0 02/08/17 02/08/17 02/08/17 02/08/17 15:00 19:15 20:00 21:28 Temp 97.6 98.2 97.6 98.2 Pulse 66 65 Resp 18 18 20 B/P (MAP) 123/73 (90) 122/66 (84) Pulse Ox 98 94 94 O2 Delivery Room Air Room Air Room Air Room Air 02/08/17 02/09/17 02/09/17 02/09/17 23:06 01:28 03:13 07:00 Temp 98.6 98.8 97.7 98.6 98.8 97.7 Pulse 65 61 62 Resp 18 20 18 18 B/P (MAP) 100/60 (73) 116/66 (83) 116/54 (74) Pulse Ox 96 95 98 O2 Delivery Room Air Room Air Room Air 02/09/17 02/09/17 02/09/17 07:20 08:30 08:30 Pulse 67 B/P (MAP) 116/54 O2 Delivery Room Air Room Air Intake and Output 02/08/17 02/08/17 02/09/17 15:00 23:00 07:00 Intake Total 1100 ml 500 ml Output Total 1100 ml 600 ml Balance 0 ml -100 ml JESSICA RAMIREZ III DO Feb 09, 2017 11:26
[2017-02-09] MEDS ORDERED: HUMIRA 40 MG/0.8 ML SQ SCH (12:00)
[2017-02-09 15:00] VITALS: BP 126/51
[2017-02-09] MEDS: HYDROcodone/APAP 10/325 1 TAB TABLET PO PRN (17:19)
[2017-02-09 19:00] VITALS: BP 160/70
[2017-02-09] MEDS: ATORVASTATIN CALCIUM 40 MG TABLET. PO SCH (20:07)
[2017-02-09 23:00] VITALS: BP 100/54
[2017-02-10 03:00] VITALS: BP 94/50
[2017-02-10 04:48] LABS: BASO # 0.1 x10^3/uL (0.0-0.2); BASO % 2 % (0-3); EOS % 10 % (0-3); HEMATOCRIT 25.3 % (39.0-53.0); HEMOGLOBIN 8.3 g/dL (13.0-17.5); LYMPH # 1.1 x10^3/uL (1.0-4.8); LYMPH % 22 % (24-48); MEAN CORPUSCULAR HEMOGLOBIN 32 pg (25-35); MEAN CORPUSCULAR HGB CONC 33 g/dL (31-37); MEAN CORPUSCULAR VOLUME 100 fL (79-100); MONO % 7 % (0-9); NEUT % 59 % (31-73); PLATELET COUNT 202 x10^3/uL (140-400); RED BLOOD COUNT 2.55 x10^6/uL (4.30-5.70); RED CELL DISTRIBUTION WIDTH 17.8 % (11.5-14.5); WHITE BLOOD COUNT 4.9 x10^3/uL (4.0-11.0)
[2017-02-10 05:08] LABS: ALBUMIN 2.3 g/dL (3.4-5.0); ALBUMIN/GLOBULIN RATIO 0.7 (1.0-1.7); CREATININE 1.3 mg/dL (0.7-1.3); GFR 54.4; POTASSIUM 3.8 mmol/L (3.5-5.1); TOTAL BILIRUBIN 1.1 mg/dL (0.2-1.0); TOTAL PROTEIN 5.5 g/dL (6.4-8.2)
[2017-02-10] MEDS: CHOLESTYRAMINE/ASPARTAME 4 GM PACKET PO SCH ×2 (06:00→17:25)
[2017-02-10 07:00] VITALS: BP 123/58
[2017-02-10] MEDS: LIDOCAINE (700MG/PATCH) PATCH. TP SCH (08:35)
[2017-02-10] MEDS: CHOLECALCIFEROL (VITAMIN D3) 1,000 UNIT TABLET PO SCH (08:36)
[2017-02-10] MEDS: GABAPENTIN 300 MG CAPSULE. PO SCH ×3 (08:36→20:12)
[2017-02-10] MEDS: LEVOTHYROXINE 25 MCG TABLET. PO SCH (08:36)
[2017-02-10] MEDS: oxyCODONE ER 15 MG TAB.ER.12H PO SCH ×2 (08:36→20:09)
[2017-02-10] MEDS: SENNOSIDES/DOCUSATE 8.6/50MG TABLET. PO SCH (08:37)
[2017-02-10] MEDS: DICLOFENAC SODIUM 1% TOPICAL GEL 100GM TUBE. TP SCH ×4 (08:37→20:12)
[2017-02-10] MEDS: ASPIRIN ENTERIC COATED 81 MG TABLET.DR. PO SCH (08:37)
[2017-02-10] MEDS: amLODIPine BESYLATE 10 MG TABLET PO SCH (08:37)
[2017-02-10] MEDS: FOLIC ACID 1 MG TABLET. PO SCH (08:37)
[2017-02-10 11:00] VITALS: BP 131/56
--- NOTE | 2017-02-10 12:23 | PDOC ---
PROGRESS NOTES Chief Complaint Chief Complaint (1) Hyperbilirubinemia Status: Acute History of Present Illness History of Present Illness Pt AAO, lying down, NAD Pt wants to go Probable DC SNU today if agreeable with Cardiology Followed by Dr. Gareth Nettles/Oncology Awaiting results of BM Bx HH upward trend Hgb 8.3 HCT 25.3 Vitals Vitals Vital Signs Date Time Temp Pulse Resp B/P (MAP) Pulse Ox O2 Delivery O2 Flow Rate FiO2 02/10/17 11:00 97.7 71 18 131/56 (81) 98 Room Air 97.7 Physical Exam General: Alert, Oriented X3, Cooperative, No acute distress Heart: Regular rate, Normal S1, No murmurs Lungs: Clear, Other (No wheezes or rales) Abdomen: Normal bowel sounds, No tenderness Extremities: No clubbing, No cyanosis, No edema Skin: No breakdown, No significant lesion Labs LABS Laboratory Tests Test 02/09/17 16:18 02/09/17 21:44 02/10/17 03:40 02/10/17 07:25 Glucose (Fingerstick) 105 mg/dL (70-99) 105 mg/dL (70-99) 102 mg/dL (70-99) White Blood Count 4.9 x10^3/uL (4.0-11.0) Red Blood Count 2.55 x10^6/uL (4.30-5.70) Hemoglobin 8.3 g/dL (13.0-17.5) Hematocrit 25.3 % (39.0-53.0) Mean Corpuscular Volume 100 fL (79-100) Mean Corpuscular Hemoglobin 32 pg (25-35) Mean Corpuscular Hemoglobin Concent 33 g/dL (31-37) Red Cell Distribution Width 17.8 % (11.5-14.5) Platelet Count 202 x10^3/uL (140-400) Neutrophils (%) (Auto) 59 % (31-73) Lymphocytes (%) (Auto) 22 % (24-48) Monocytes (%) (Auto) 7 % (0-9) Eosinophils (%) (Auto) 10 % (0-3) Basophils (%) (Auto) 2 % (0-3) Neutrophils # (Auto) 2.9 x10^3uL (1.8-7.7) Lymphocytes # (Auto) 1.1 x10^3/uL (1.0-4.8) Monocytes # (Auto) 0.3 x10^3/uL (0.0-1.1) Eosinophils # (Auto) 0.5 x10^3/uL (0.0-0.7) Basophils # (Auto) 0.1 x10^3/uL (0.0-0.2) Sodium Level 142 mmol/L (136-145) Potassium Level 3.8 mmol/L (3.5-5.1) Chloride Level 110 mmol/L (98-107) Carbon Dioxide Level 26 mmol/L (21-32) Anion Gap 6 (6-14) Blood Urea Nitrogen 18 mg/dL (8-26) Creatinine 1.3 mg/dL (0.7-1.3) Estimated GFR (Cockcroft-Gault) 54.4 BUN/Creatinine Ratio 14 (6-20) Glucose Level 97 mg/dL (70-99) Calcium Level 8.0 mg/dL (8.5-10.1) Total Bilirubin 1.1 mg/dL (0.2-1.0) Aspartate Amino Transf (AST/SGOT) 17 U/L (15-37) Alanine Aminotransferase (ALT/SGPT) 13 U/L (16-63) Alkaline Phosphatase 135 U/L (46-116) Total Protein 5.5 g/dL (6.4-8.2) Albumin 2.3 g/dL (3.4-5.0) Albumin/Globulin Ratio 0.7 (1.0-1.7) Test 02/10/17 10:52 Glucose (Fingerstick) 107 mg/dL (70-99) Review of Systems Review of Systems General: No Hunger, Fatigue Pulm: No SOB, Dyspnea Assessment and Plan Assessmemt and Plan Assessment: Hyperbilirubinemia Probable Mild Hemolytic Anemia Chronic Back Pain CAD HTN ALESIA Plan: Probable DC SNU today if agreeable with Cardiology Continue Cardiac Monitoring Continue Cardiac Diet Continue Home Meds Continue PT/OT Recheck Labs Problems: Comment Review of Relevant I have reviewed the following items bernadine (where applicable) has been applied. Labs Laboratory Tests Test 02/09/17 05:45 02/09/17 08:13 02/09/17 10:59 02/09/17 16:18 White Blood Count 4.9 x10^3/uL (4.0-11.0) Red Blood Count 2.54 x10^6/uL (4.30-5.70) Hemoglobin 8.3 g/dL (13.0-17.5) Hematocrit 25.0 % (39.0-53.0) Mean Corpuscular Volume 99 fL (79-100) Mean Corpuscular Hemoglobin 33 pg (25-35) Mean Corpuscular Hemoglobin Concent 33 g/dL (31-37) Red Cell Distribution Width 18.1 % (11.5-14.5) Platelet Count 216 x10^3/uL (140-400) Neutrophils (%) (Auto) 65 % (31-73) Lymphocytes (%) (Auto) 19 % (24-48) Monocytes (%) (Auto) 6 % (0-9) Eosinophils (%) (Auto) 9 % (0-3) Basophils (%) (Auto) 1 % (0-3) Neutrophils # (Auto) 3.2 x10^3uL (1.8-7.7) Lymphocytes # (Auto) 0.9 x10^3/uL (1.0-4.8) Monocytes # (Auto) 0.3 x10^3/uL (0.0-1.1) Eosinophils # (Auto) 0.4 x10^3/uL (0.0-0.7) Basophils # (Auto) 0.1 x10^3/uL (0.0-0.2) Sodium Level 140 mmol/L (136-145) Potassium Level 3.6 mmol/L (3.5-5.1) Chloride Level 107 mmol/L (98-107) Carbon Dioxide Level 25 mmol/L (21-32) Anion Gap 8 (6-14) Blood Urea Nitrogen 21 mg/dL (8-26) Creatinine 1.2 mg/dL (0.7-1.3) Estimated GFR (Cockcroft-Gault) 59.7 BUN/Creatinine Ratio 18 (6-20) Glucose Level 99 mg/dL (70-99) Calcium Level 8.6 mg/dL (8.5-10.1) Total Bilirubin 1.3 mg/dL (0.2-1.0) Aspartate Amino Transf (AST/SGOT) 19 U/L (15-37) Alanine Aminotransferase (ALT/SGPT) 14 U/L (16-63) Alkaline Phosphatase 145 U/L (46-116) Total Protein 6.0 g/dL (6.4-8.2) Albumin 2.4 g/dL (3.4-5.0) Albumin/Globulin Ratio 0.7 (1.0-1.7) Glucose (Fingerstick) 117 mg/dL (70-99) 109 mg/dL (70-99) 105 mg/dL (70-99) Test 02/09/17 21:44 02/10/17 03:40 02/10/17 07:25 02/10/17 10:52 Glucose (Fingerstick) 105 mg/dL (70-99) 102 mg/dL (70-99) 107 mg/dL (70-99) White Blood Count 4.9 x10^3/uL (4.0-11.0) Red Blood Count 2.55 x10^6/uL (4.30-5.70) Hemoglobin 8.3 g/dL (13.0-17.5) Hematocrit 25.3 % (39.0-53.0) Mean Corpuscular Volume 100 fL (79-100) Mean Corpuscular Hemoglobin 32 pg (25-35) Mean Corpuscular Hemoglobin Concent 33 g/dL (31-37) Red Cell Distribution Width 17.8 % (11.5-14.5) Platelet Count 202 x10^3/uL (140-400) Neutrophils (%) (Auto) 59 % (31-73) Lymphocytes (%) (Auto) 22 % (24-48) Monocytes (%) (Auto) 7 % (0-9) Eosinophils (%) (Auto) 10 % (0-3) Basophils (%) (Auto) 2 % (0-3) Neutrophils # (Auto) 2.9 x10^3uL (1.8-7.7) Lymphocytes # (Auto) 1.1 x10^3/uL (1.0-4.8) Monocytes # (Auto) 0.3 x10^3/uL (0.0-1.1) Eosinophils # (Auto) 0.5 x10^3/uL (0.0-0.7) Basophils # (Auto) 0.1 x10^3/uL (0.0-0.2) Sodium Level 142 mmol/L (136-145) Potassium Level 3.8 mmol/L (3.5-5.1) Chloride Level 110 mmol/L (98-107) Carbon Dioxide Level 26 mmol/L (21-32) Anion Gap 6 (6-14) Blood Urea Nitrogen 18 mg/dL (8-26) Creatinine 1.3 mg/dL (0.7-1.3) Estimated GFR (Cockcroft-Gault) 54.4 BUN/Creatinine Ratio 14 (6-20) Glucose Level 97 mg/dL (70-99) Calcium Level 8.0 mg/dL (8.5-10.1) Total Bilirubin 1.1 mg/dL (0.2-1.0) Aspartate Amino Transf (AST/SGOT) 17 U/L (15-37) Alanine Aminotransferase (ALT/SGPT) 13 U/L (16-63) Alkaline Phosphatase 135 U/L (46-116) Total Protein 5.5 g/dL (6.4-8.2) Albumin 2.3 g/dL (3.4-5.0) Albumin/Globulin Ratio 0.7 (1.0-1.7) Laboratory Tests Test 02/09/17 16:18 02/09/17 21:44 02/10/17 03:40 02/10/17 07:25 Glucose (Fingerstick) 105 mg/dL (70-99) 105 mg/dL (70-99) 102 mg/dL (70-99) White Blood Count 4.9 x10^3/uL (4.0-11.0) Red Blood Count 2.55 x10^6/uL (4.30-5.70) Hemoglobin 8.3 g/dL (13.0-17.5) Hematocrit 25.3 % (39.0-53.0) Mean Corpuscular Volume 100 fL (79-100) Mean Corpuscular Hemoglobin 32 pg (25-35) Mean Corpuscular Hemoglobin Concent 33 g/dL (31-37) Red Cell Distribution Width 17.8 % (11.5-14.5) Platelet Count 202 x10^3/uL (140-400) Neutrophils (%) (Auto) 59 % (31-73) Lymphocytes (%) (Auto) 22 % (24-48) Monocytes (%) (Auto) 7 % (0-9) Eosinophils (%) (Auto) 10 % (0-3) Basophils (%) (Auto) 2 % (0-3) Neutrophils # (Auto) 2.9 x10^3uL (1.8-7.7) Lymphocytes # (Auto) 1.1 x10^3/uL (1.0-4.8) Monocytes # (Auto) 0.3 x10^3/uL (0.0-1.1) Eosinophils # (Auto) 0.5 x10^3/uL (0.0-0.7) Basophils # (Auto) 0.1 x10^3/uL (0.0-0.2) Sodium Level 142 mmol/L (136-145) Potassium Level 3.8 mmol/L (3.5-5.1) Chloride Level 110 mmol/L (98-107) Carbon Dioxide Level 26 mmol/L (21-32) Anion Gap 6 (6-14) Blood Urea Nitrogen 18 mg/dL (8-26) Creatinine 1.3 mg/dL (0.7-1.3) Estimated GFR (Cockcroft-Gault) 54.4 BUN/Creatinine Ratio 14 (6-20) Glucose Level 97 mg/dL (70-99) Calcium Level 8.0 mg/dL (8.5-10.1) Total Bilirubin 1.1 mg/dL (0.2-1.0) Aspartate Amino Transf (AST/SGOT) 17 U/L (15-37) Alanine Aminotransferase (ALT/SGPT) 13 U/L (16-63) Alkaline Phosphatase 135 U/L (46-116) Total Protein 5.5 g/dL (6.4-8.2) Albumin 2.3 g/dL (3.4-5.0) Albumin/Globulin Ratio 0.7 (1.0-1.7) Test 02/10/17 10:52 Glucose (Fingerstick) 107 mg/dL (70-99) Medications Current Medications Morphine Sulfate 2 mg PRN Q15MIN PRN IV/SQ PAIN GREATER THAN 3/10 Last administered on 02/04/17t 13:44; Start 02/04/17 at 13:15; Stop 02/04/17 at 15 :05; Status DC Ondansetron HCl (Zofran) 4 mg 1X ONCE IV Last administered on 02/04/17 13:26 ; Start 02/04/17 at 13:15; Stop 02/04/17 at 13:16; Status DC Ondansetron HCl (Zofran) 4 mg PRN Q8HRS PRN IV NAUSEA/VOMITING; Start at 15:00; Stop 02/05/17 at 14:59; Status DC Morphine Sulfate 2 mg PRN Q2HR PRN IV PAIN Last administered on 02/04/17 17: 49; Start 02/04/17 at 15:00; Stop 02/05/17 at 14:59; Status DC Amlodipine Besylate (Norvasc) 5 mg DAILY PO Last administered on 02/05/17 08: 32; Start 02/05/17 at 09:00; Stop 02/07/17 at 09:14; Status DC Aspirin (Ecotrin) 81 mg [id number] PO Last administered on 02/10/17 08:37; Start 02/05/17 at 08:00 Atorvastatin Calcium (Lipitor) 40 mg QHS PO Last administered on 02/09/17 20: 07; Start 02/04/17 at 21:00 Vitamin D (Vitamin D3) 2,000 unit DAILY PO Last administered on 02/10/17 08: 36; Start 02/05/17 at 09:00 Clonidine HCl (Catapres) 0.1 mg BID PO Last administered on 02/06/17 21:37; Start 02/04/17 at 21:00; Stop 02/07/17 at 09:14; Status DC Diclofenac Sodium (Voltaren) 1 jose a QID TP Last administered on 02/10/17 08:37 ; Start 02/04/17 at 21:00 Folic Acid (Folic Acid) 1 mg DAILY PO Last administered on 02/10/17 08:37; Start 02/05/17 at 09:00 Acetaminophen/ Hydrocodone Bitart (Lortab 10/325) 1 tab PRN Q6HRS PRN PO MODERATE PAIN Last administered on 02/09/17 17:19; Start 02/04/17 at 19:30 Lidocaine (Lidoderm) 1 patch DAILY TP Last administered on 02/10/17 08:35; Start 02/05/17 at 09:00 Loperamide HCl (Imodium) 2 mg PRN QID PRN PO DIARRHEA; Start 02/04/17 at 19:30 ; Stop 02/05/17 at 13:29; Status DC Metformin HCl (Glucophage) 1,000 mg BIDWMEALS PO Last administered on 08:36; Start 02/05/17 at 08:00 Metoprolol Succinate (Toprol Xl) 25 mg BID PO Last administered on 02/06/17 21:36; Start 02/04/17 at 21:00; Stop 02/07/17 at 09:14; Status DC Oxycodone HCl (OxyCONTIN) 30 mg Q12HR PO Last administered on 02/10/17 08:36 ; Start 02/04/17 at 21:00 Senna/Docusate Sodium (Senna Plus) 2 tab DAILY PO Last administered on 08:37; Start 02/05/17 at 09:00 Gabapentin (Neurontin) 600 mg TID PO Last administered on 02/10/17 08:36; Start 02/04/17 at 21:00 Cholestyramine Resin (Questran Light) 4 gm BID PO ; Start 02/04/17 at 21:15; Stop 02/05/17 at 01:39; Status DC Loperamide HCl (Imodium) 4 mg PRN Q15MIN PRN PO DIARRHEA; Start 02/04/17 at 21 :15 Cholestyramine Resin (Questran Light) 4 gm [id number] PO Last administered on 06:13; Start 02/05/17 at 06:00 Lidocaine/Sodium Bicarbonate (Buffered Lidocaine 1%) 20 ml 1X ONCE IJ Last administered on 02/06/17 11:39; Start 02/06/17 at 11:15; Stop 02/06/17 at 11 :18; Status DC Midazolam HCl (Versed) 2 mg 1X ONCE IV Last administered on 02/06/17 11:40; Start 02/06/17 at 11:15; Stop 02/06/17 at 11:18; Status DC Fentanyl Citrate (Fentanyl 2ml Vial) 100 mcg 1X ONCE IV Last administered on 02/06/17 11:41; Start 02/06/17 at 11:15; Stop 02/06/17 at 11:18; Status DC Amlodipine Besylate (Norvasc) 10 mg DAILY PO Last administered on 02/10/17 08 :37; Start 02/07/17 at 10:00 Magnesium Sulfate/ Dextrose 50 ml @ 25 mls/hr 1X ONCE IV Last administered on 02/07/17 11:55; Start 02/07/17 at 11:30; Stop 02/07/17 at 13:29; Status DC Hydralazine HCl (Apresoline Inj) 10 mg PRN Q4HRS PRN IVP ELEVATED BP, SEE COMMENTS; Start 02/07/17 at 11:15 Levothyroxine Sodium (Synthroid) 25 mcg DAILY07 PO Last administered on 08:36; Start 02/07/17 at 15:30 Non-Formulary Medication 1 ea Q2WKS SQ Last administered on 02/09/17 13:11; Start 02/09/17 at 12:00 Active Scripts Active Metoprolol Succinate ( Xl ) (Metoprolol Succinate) 25 Mg Tab.er.24h 25 Mg PO BID 30 Days Hydrocodone-Apap 10-325 (Hydrocodone Bit/Acetaminophen) 1 Each Tablet 1 Tab PO PRN Q6HRS PRN Senna-Time S Tablet (Sennosides/Docusate Sodium) 1 Each Tablet 2 Tab PO DAILY 10 Days Oxycontin (Oxycodone HCl) 15 Mg Tab.er.12h 30 Mg PO Q12HR Aspirin Ec (Aspirin) 81 Mg Tablet. 81 Mg PO DAILYWBKFT 30 Days Amlodipine Besylate 5 Mg Tablet 5 Mg PO DAILY 30 Days Reported Loperamide (Loperamide Hcl) 2 Mg Capsule 2 Mg PO PRN QID PRN Voltaren (Diclofenac Sodium) 100 Gm Gel..gram. 1 Gm TP QID Lidocaine 1 Each Adh..patch 1 Each TP DAILY Vitamin D3 (Cholecalciferol (Vitamin D3)) 1,000 Unit Tablet 2,000 Unit PO Humira (Adalimumab) 40 Mg/0.8 Ml Pen.ij.kit 1 Syr SQ Q2WKS Folbic Rf Tablet (B12/Levomefolate Calcium/B-6) 1 Each Tablet 1 Each PO Omeprazole 40 Mg Capsule. 1 Cap PO DAILY Cholestyramine Packet (Cholestyramine (With Sugar)) 4 Gm Powd.pack 4 Gm PO Gabapentin 600 Mg Tablet 600 Mg PO TID Folic Acid 1 Mg Tablet 1 Tab PO DAILY Clonidine Hcl 0.1 Mg Tablet 0.1 Mg PO BID Metformin Hcl 1,000 Mg Tablet 1,000 Mg PO BIDWMEALS Atorvastatin Calcium 40 Mg Tablet 1 Tab PO DAILY Vitals/I & O Vital Sign - Last 24 Hours 02/09/17 02/09/17 02/09/17 02/09/17 15:00 17:19 18:44 19:00 Temp 97.5 97.6 97.5 97.6 Pulse 84 Resp 18 18 B/P (MAP) 126/51 (76) 160/70 (100) Pulse Ox 94 O2 Delivery Room Air Room Air Room Air Room Air 02/09/17 02/09/17 02/09/17 02/10/17 20:00 20:08 23:00 00:08 Temp 98.4 98.4 Pulse 63 Resp 20 18 18 B/P (MAP) 100/54 (69) Pulse Ox 94 98 98 O2 Delivery Room Air Room Air Room Air Room Air 02/10/17 02/10/17 02/10/17 02/10/17 03:00 07:00 08:00 08:36 Temp 98.7 98.4 98.7 98.4 Pulse 67 Resp 18 18 B/P (MAP) 94/50 (65) 123/58 (79) Pulse Ox 99 93 93 O2 Delivery Room Air Room Air Room Air Room Air 02/10/17 02/10/17 08:37 11:00 Temp 97.7 97.7 Pulse 67 71 Resp 18 B/P (MAP) 123/58 131/56 (81) Pulse Ox 98 O2 Delivery Room Air Intake and Output 02/09/17 02/09/17 02/10/17 15:00 23:00 07:00 Intake Total 200 ml 300 ml Output Total 100 ml 200 ml Balance 100 ml 100 ml JESSICA RAMIREZ III DO Feb 10, 2017 12:23
[2017-02-10] MEDS: HYDROcodone/APAP 10/325 1 TAB TABLET PO PRN (14:26)
[2017-02-10 15:00] VITALS: BP 124/46
[2017-02-10 19:00] VITALS: BP 131/73
[2017-02-10] MEDS: ATORVASTATIN CALCIUM 40 MG TABLET. PO SCH (20:12)
[2017-02-10 23:00] VITALS: BP 121/61
[2017-02-11 03:00] VITALS: BP 110/60
[2017-02-11 06:06] LABS: BASO # 0.1 x10^3/uL (0.0-0.2); BASO % 2 % (0-3); EOS % 11 % (0-3); HEMATOCRIT 25.8 % (39.0-53.0); HEMOGLOBIN 8.4 g/dL (13.0-17.5); LYMPH # 0.9 x10^3/uL (1.0-4.8); LYMPH % 23 % (24-48); MEAN CORPUSCULAR HEMOGLOBIN 32 pg (25-35); MEAN CORPUSCULAR HGB CONC 32 g/dL (31-37); MEAN CORPUSCULAR VOLUME 100 fL (79-100); MONO % 7 % (0-9); NEUT % 57 % (31-73); PLATELET COUNT 181 x10^3/uL (140-400); RED BLOOD COUNT 2.59 x10^6/uL (4.30-5.70); RED CELL DISTRIBUTION WIDTH 18.2 % (11.5-14.5); WHITE BLOOD COUNT 4.1 x10^3/uL (4.0-11.0)
[2017-02-11] MEDS: CHOLESTYRAMINE/ASPARTAME 4 GM PACKET PO SCH ×2 (06:17→19:53)
[2017-02-11] MEDS: LEVOTHYROXINE 25 MCG TABLET. PO SCH (06:17)
[2017-02-11 06:20] LABS: ALBUMIN 2.3 g/dL (3.4-5.0); ALBUMIN/GLOBULIN RATIO 0.7 (1.0-1.7); CALCIUM 8.3 mg/dL (8.5-10.1); CREATININE 1.2 mg/dL (0.7-1.3); GFR 59.7; POTASSIUM 4.5 mmol/L (3.5-5.1); TOTAL BILIRUBIN 1.3 mg/dL (0.2-1.0); TOTAL PROTEIN 5.6 g/dL (6.4-8.2)
[2017-02-11 07:00] VITALS: BP 134/60
[2017-02-11] MEDS: LIDOCAINE (700MG/PATCH) PATCH. TP SCH (08:56)
[2017-02-11] MEDS: FOLIC ACID 1 MG TABLET. PO SCH (08:57)
[2017-02-11] MEDS: SENNOSIDES/DOCUSATE 8.6/50MG TABLET. PO SCH (08:57)
[2017-02-11] MEDS: ASPIRIN ENTERIC COATED 81 MG TABLET.DR. PO SCH (08:57)
[2017-02-11] MEDS: amLODIPine BESYLATE 10 MG TABLET PO SCH (08:57)
[2017-02-11] MEDS: CHOLECALCIFEROL (VITAMIN D3) 1,000 UNIT TABLET PO SCH (08:58)
[2017-02-11] MEDS: oxyCODONE ER 15 MG TAB.ER.12H PO SCH ×2 (08:58→21:03)
[2017-02-11] MEDS: GABAPENTIN 300 MG CAPSULE. PO SCH ×3 (08:58→21:03)
[2017-02-11] MEDS: DICLOFENAC SODIUM 1% TOPICAL GEL 100GM TUBE. TP SCH ×4 (08:59→21:03)
[2017-02-11 11:00] VITALS: BP 142/65
[2017-02-11] MEDS: HYDROcodone/APAP 10/325 1 TAB TABLET PO PRN (13:48)
--- NOTE | 2017-02-11 14:15 | PDOC ---
PROGRESS NOTES Chief Complaint Chief Complaint CAD Diabetes-Type II High Cholesterol Heart Disease Crohns Sleep apnea History of Present Illness History of Present Illness Pt was seen at the bedside. He reports sleeping off and on last night, has a good appetite, had a bowel movement today, and a bladder movement today, and would like to go home. 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 General: Alert, Cooperative, No acute distress Heart: Other (Irregularly irregular with systolic murmur) Lungs: Clear, Other (No wheezes or rales) Extremities: No clubbing, No cyanosis, Other (+1 edema) Labs LABS Laboratory Tests Test 02/11/17 05:35 White Blood Count 4.1 x10^3/uL (4.0-11.0) Red Blood Count 2.59 x10^6/uL (4.30-5.70) Hemoglobin 8.4 g/dL (13.0-17.5) Hematocrit 25.8 % (39.0-53.0) Mean Corpuscular Volume 100 fL (79-100) Mean Corpuscular Hemoglobin 32 pg (25-35) Mean Corpuscular Hemoglobin Concent 32 g/dL (31-37) Red Cell Distribution Width 18.2 % (11.5-14.5) Platelet Count 181 x10^3/uL (140-400) Neutrophils (%) (Auto) 57 % (31-73) Lymphocytes (%) (Auto) 23 % (24-48) Monocytes (%) (Auto) 7 % (0-9) Eosinophils (%) (Auto) 11 % (0-3) Basophils (%) (Auto) 2 % (0-3) Neutrophils # (Auto) 2.3 x10^3uL (1.8-7.7) Lymphocytes # (Auto) 0.9 x10^3/uL (1.0-4.8) Monocytes # (Auto) 0.3 x10^3/uL (0.0-1.1) Eosinophils # (Auto) 0.4 x10^3/uL (0.0-0.7) Basophils # (Auto) 0.1 x10^3/uL (0.0-0.2) Sodium Level 142 mmol/L (136-145) Potassium Level 4.5 mmol/L (3.5-5.1) Chloride Level 109 mmol/L (98-107) Carbon Dioxide Level 27 mmol/L (21-32) Anion Gap 6 (6-14) Blood Urea Nitrogen 16 mg/dL (8-26) Creatinine 1.2 mg/dL (0.7-1.3) Estimated GFR (Cockcroft-Gault) 59.7 BUN/Creatinine Ratio 13 (6-20) Glucose Level 92 mg/dL (70-99) Calcium Level 8.3 mg/dL (8.5-10.1) Total Bilirubin 1.3 mg/dL (0.2-1.0) Aspartate Amino Transf (AST/SGOT) 17 U/L (15-37) Alanine Aminotransferase (ALT/SGPT) 13 U/L (16-63) Alkaline Phosphatase 144 U/L (46-116) Total Protein 5.6 g/dL (6.4-8.2) Albumin 2.3 g/dL (3.4-5.0) Albumin/Globulin Ratio 0.7 (1.0-1.7) Review of Systems Review of Systems Denies chest pain, shortness of air, nausea, vomiting, diarrhea, constipation Assessment and Plan Assessmemt and Plan Problems Medical Problems: (1) Hyperbilirubinemia Status: Acute ASSESSMENT: CAD Diabetes-Type II High Cholesterol Heart Disease Crohns Sleep apnea PLAN: Probable discharge in AM to SNU Continue current medications Continue to monitor labs Appreciate input from subspecialists PT/OT Problems: Comment Review of Relevant I have reviewed the following items bernadine (where applicable) has been applied. Labs Laboratory Tests Test 02/09/17 16:18 02/09/17 21:44 02/10/17 03:40 02/10/17 07:25 Glucose (Fingerstick) 105 mg/dL (70-99) 105 mg/dL (70-99) 102 mg/dL (70-99) White Blood Count 4.9 x10^3/uL (4.0-11.0) Red Blood Count 2.55 x10^6/uL (4.30-5.70) Hemoglobin 8.3 g/dL (13.0-17.5) Hematocrit 25.3 % (39.0-53.0) Mean Corpuscular Volume 100 fL (79-100) Mean Corpuscular Hemoglobin 32 pg (25-35) Mean Corpuscular Hemoglobin Concent 33 g/dL (31-37) Red Cell Distribution Width 17.8 % (11.5-14.5) Platelet Count 202 x10^3/uL (140-400) Neutrophils (%) (Auto) 59 % (31-73) Lymphocytes (%) (Auto) 22 % (24-48) Monocytes (%) (Auto) 7 % (0-9) Eosinophils (%) (Auto) 10 % (0-3) Basophils (%) (Auto) 2 % (0-3) Neutrophils # (Auto) 2.9 x10^3uL (1.8-7.7) Lymphocytes # (Auto) 1.1 x10^3/uL (1.0-4.8) Monocytes # (Auto) 0.3 x10^3/uL (0.0-1.1) Eosinophils # (Auto) 0.5 x10^3/uL (0.0-0.7) Basophils # (Auto) 0.1 x10^3/uL (0.0-0.2) Sodium Level 142 mmol/L (136-145) Potassium Level 3.8 mmol/L (3.5-5.1) Chloride Level 110 mmol/L (98-107) Carbon Dioxide Level 26 mmol/L (21-32) Anion Gap 6 (6-14) Blood Urea Nitrogen 18 mg/dL (8-26) Creatinine 1.3 mg/dL (0.7-1.3) Estimated GFR (Cockcroft-Gault) 54.4 BUN/Creatinine Ratio 14 (6-20) Glucose Level 97 mg/dL (70-99) Calcium Level 8.0 mg/dL (8.5-10.1) Total Bilirubin 1.1 mg/dL (0.2-1.0) Aspartate Amino Transf (AST/SGOT) 17 U/L (15-37) Alanine Aminotransferase (ALT/SGPT) 13 U/L (16-63) Alkaline Phosphatase 135 U/L (46-116) Total Protein 5.5 g/dL (6.4-8.2) Albumin 2.3 g/dL (3.4-5.0) Albumin/Globulin Ratio 0.7 (1.0-1.7) Test 02/10/17 10:52 02/11/17 05:35 Glucose (Fingerstick) 107 mg/dL (70-99) White Blood Count 4.1 x10^3/uL (4.0-11.0) Red Blood Count 2.59 x10^6/uL (4.30-5.70) Hemoglobin 8.4 g/dL (13.0-17.5) Hematocrit 25.8 % (39.0-53.0) Mean Corpuscular Volume 100 fL (79-100) Mean Corpuscular Hemoglobin 32 pg (25-35) Mean Corpuscular Hemoglobin Concent 32 g/dL (31-37) Red Cell Distribution Width 18.2 % (11.5-14.5) Platelet Count 181 x10^3/uL (140-400) Neutrophils (%) (Auto) 57 % (31-73) Lymphocytes (%) (Auto) 23 % (24-48) Monocytes (%) (Auto) 7 % (0-9) Eosinophils (%) (Auto) 11 % (0-3) Basophils (%) (Auto) 2 % (0-3) Neutrophils # (Auto) 2.3 x10^3uL (1.8-7.7) Lymphocytes # (Auto) 0.9 x10^3/uL (1.0-4.8) Monocytes # (Auto) 0.3 x10^3/uL (0.0-1.1) Eosinophils # (Auto) 0.4 x10^3/uL (0.0-0.7) Basophils # (Auto) 0.1 x10^3/uL (0.0-0.2) Sodium Level 142 mmol/L (136-145) Potassium Level 4.5 mmol/L (3.5-5.1) Chloride Level 109 mmol/L (98-107) Carbon Dioxide Level 27 mmol/L (21-32) Anion Gap 6 (6-14) Blood Urea Nitrogen 16 mg/dL (8-26) Creatinine 1.2 mg/dL (0.7-1.3) Estimated GFR (Cockcroft-Gault) 59.7 BUN/Creatinine Ratio 13 (6-20) Glucose Level 92 mg/dL (70-99) Calcium Level 8.3 mg/dL (8.5-10.1) Total Bilirubin 1.3 mg/dL (0.2-1.0) Aspartate Amino Transf (AST/SGOT) 17 U/L (15-37) Alanine Aminotransferase (ALT/SGPT) 13 U/L (16-63) Alkaline Phosphatase 144 U/L (46-116) Total Protein 5.6 g/dL (6.4-8.2) Albumin 2.3 g/dL (3.4-5.0) Albumin/Globulin Ratio 0.7 (1.0-1.7) Laboratory Tests Test 02/11/17 05:35 White Blood Count 4.1 x10^3/uL (4.0-11.0) Red Blood Count 2.59 x10^6/uL (4.30-5.70) Hemoglobin 8.4 g/dL (13.0-17.5) Hematocrit 25.8 % (39.0-53.0) Mean Corpuscular Volume 100 fL (79-100) Mean Corpuscular Hemoglobin 32 pg (25-35) Mean Corpuscular Hemoglobin Concent 32 g/dL (31-37) Red Cell Distribution Width 18.2 % (11.5-14.5) Platelet Count 181 x10^3/uL (140-400) Neutrophils (%) (Auto) 57 % (31-73) Lymphocytes (%) (Auto) 23 % (24-48) Monocytes (%) (Auto) 7 % (0-9) Eosinophils (%) (Auto) 11 % (0-3) Basophils (%) (Auto) 2 % (0-3) Neutrophils # (Auto) 2.3 x10^3uL (1.8-7.7) Lymphocytes # (Auto) 0.9 x10^3/uL (1.0-4.8) Monocytes # (Auto) 0.3 x10^3/uL (0.0-1.1) Eosinophils # (Auto) 0.4 x10^3/uL (0.0-0.7) Basophils # (Auto) 0.1 x10^3/uL (0.0-0.2) Sodium Level 142 mmol/L (136-145) Potassium Level 4.5 mmol/L (3.5-5.1) Chloride Level 109 mmol/L (98-107) Carbon Dioxide Level 27 mmol/L (21-32) Anion Gap 6 (6-14) Blood Urea Nitrogen 16 mg/dL (8-26) Creatinine 1.2 mg/dL (0.7-1.3) Estimated GFR (Cockcroft-Gault) 59.7 BUN/Creatinine Ratio 13 (6-20) Glucose Level 92 mg/dL (70-99) Calcium Level 8.3 mg/dL (8.5-10.1) Total Bilirubin 1.3 mg/dL (0.2-1.0) Aspartate Amino Transf (AST/SGOT) 17 U/L (15-37) Alanine Aminotransferase (ALT/SGPT) 13 U/L (16-63) Alkaline Phosphatase 144 U/L (46-116) Total Protein 5.6 g/dL (6.4-8.2) Albumin 2.3 g/dL (3.4-5.0) Albumin/Globulin Ratio 0.7 (1.0-1.7) Medications Current Medications Morphine Sulfate 2 mg PRN Q15MIN PRN IV/SQ PAIN GREATER THAN 3/10 Last administered on 02/04/17 13:44; Start 02/04/17 at 13:15; Stop 02/04/17 at 15 :05; Status DC Ondansetron HCl (Zofran) 4 mg 1X ONCE IV Last administered on 02/04/17 13:26 ; Start 02/04/17 at 13:15; Stop 02/04/17 at 13:16; Status DC Ondansetron HCl (Zofran) 4 mg PRN Q8HRS PRN IV NAUSEA/VOMITING; Start at 15:00; Stop 02/05/17 at 14:59; Status DC Morphine Sulfate 2 mg PRN Q2HR PRN IV PAIN Last administered on 02/04/17 17: 49; Start 02/04/17 at 15:00; Stop 02/05/17 at 14:59; Status DC Amlodipine Besylate (Norvasc) 5 mg DAILY PO Last administered on 02/05/17 08: 32; Start 02/05/17 at 09:00; Stop 02/07/17 at 09:14; Status DC Aspirin (Ecotrin) 81 mg [id number] PO Last administered on 02/11/17 08:57; Start 02/05/17 at 08:00 Atorvastatin Calcium (Lipitor) 40 mg QHS PO Last administered on 02/10/17 20: 12; Start 02/04/17 at 21:00 Vitamin D (Vitamin D3) 2,000 unit DAILY PO Last administered on 02/11/17 08: 58; Start 02/05/17 at 09:00 Clonidine HCl (Catapres) 0.1 mg BID PO Last administered on 02/06/17 21:37; Start 02/04/17 at 21:00; Stop 02/07/17 at 09:14; Status DC Diclofenac Sodium (Voltaren) 1 jose a QID TP Last administered on 02/11/17 13:49 ; Start 02/04/17 at 21:00 Folic Acid (Folic Acid) 1 mg DAILY PO Last administered on 02/11/17 08:57; Start 02/05/17 at 09:00 Acetaminophen/ Hydrocodone Bitart (Lortab 10/325) 1 tab PRN Q6HRS PRN PO MODERATE PAIN Last administered on 02/11/17 13:48; Start 02/04/17 at 19:30 Lidocaine (Lidoderm) 1 patch DAILY TP Last administered on 02/11/17 08:56; Start 02/05/17 at 09:00 Loperamide HCl (Imodium) 2 mg PRN QID PRN PO DIARRHEA; Start 02/04/17 at 19:30 ; Stop 02/05/17 at 13:29; Status DC Metformin HCl (Glucophage) 1,000 mg BIDWMEALS PO Last administered on 08:58; Start 02/05/17 at 08:00 Metoprolol Succinate (Toprol Xl) 25 mg BID PO Last administered on 02/06/17 21:36; Start 02/04/17 at 21:00; Stop 02/07/17 at 09:14; Status DC Oxycodone HCl (OxyCONTIN) 30 mg Q12HR PO Last administered on 02/11/17 08:58 ; Start 02/04/17 at 21:00 Senna/Docusate Sodium (Senna Plus) 2 tab DAILY PO Last administered on 08:57; Start 02/05/17 at 09:00 Gabapentin (Neurontin) 600 mg TID PO Last administered on 02/11/17 13:48; Start 02/04/17 at 21:00 Cholestyramine Resin (Questran Light) 4 gm BID PO ; Start 02/04/17 at 21:15; Stop 02/05/17 at 01:39; Status DC Loperamide HCl (Imodium) 4 mg PRN Q15MIN PRN PO DIARRHEA; Start 02/04/17 at 21 :15 Cholestyramine Resin (Questran Light) 4 gm [id number] PO Last administered on 06:17; Start 02/05/17 at 06:00 Lidocaine/Sodium Bicarbonate (Buffered Lidocaine 1%) 20 ml 1X ONCE IJ Last administered on 02/06/17 11:39; Start 02/06/17 at 11:15; Stop 02/06/17 at 11 :18; Status DC Midazolam HCl (Versed) 2 mg 1X ONCE IV Last administered on 02/06/17 11:40; Start 02/06/17 at 11:15; Stop 02/06/17 at 11:18; Status DC Fentanyl Citrate (Fentanyl 2ml Vial) 100 mcg 1X ONCE IV Last administered on 02/06/17 11:41; Start 02/06/17 at 11:15; Stop 02/06/17 at 11:18; Status DC Amlodipine Besylate (Norvasc) 10 mg DAILY PO Last administered on 02/11/17 08 :57; Start 02/07/17 at 10:00 Magnesium Sulfate/ Dextrose 50 ml @ 25 mls/hr 1X ONCE IV Last administered on 02/07/17 11:55; Start 02/07/17 at 11:30; Stop 02/07/17 at 13:29; Status DC Hydralazine HCl (Apresoline Inj) 10 mg PRN Q4HRS PRN IVP ELEVATED BP, SEE COMMENTS; Start 02/07/17 at 11:15 Levothyroxine Sodium (Synthroid) 25 mcg DAILY07 PO Last administered on 06:17; Start 02/07/17 at 15:30 Non-Formulary Medication 1 ea Q2WKS SQ Last administered on 02/09/17t 13:11; Start 02/09/17 at 12:00 Active Scripts Active Metoprolol Succinate ( Xl ) (Metoprolol Succinate) 25 Mg Tab.er.24h 25 Mg PO BID 30 Days Hydrocodone-Apap 10-325 (Hydrocodone Bit/Acetaminophen) 1 Each Tablet 1 Tab PO PRN Q6HRS PRN Senna-Time S Tablet (Sennosides/Docusate Sodium) 1 Each Tablet 2 Tab PO DAILY 10 Days Oxycontin (Oxycodone HCl) 15 Mg Tab.er.12h 30 Mg PO Q12HR Aspirin Ec (Aspirin) 81 Mg Tablet. 81 Mg PO DAILYWBKFT 30 Days Amlodipine Besylate 5 Mg Tablet 5 Mg PO DAILY 30 Days Reported Loperamide (Loperamide Hcl) 2 Mg Capsule 2 Mg PO PRN QID PRN Voltaren (Diclofenac Sodium) 100 Gm Gel..gram. 1 Gm TP QID Lidocaine 1 Each Adh..patch 1 Each TP DAILY Vitamin D3 (Cholecalciferol (Vitamin D3)) 1,000 Unit Tablet 2,000 Unit PO Humira (Adalimumab) 40 Mg/0.8 Ml Pen.ij.kit 1 Syr SQ Q2WKS Folbic Rf Tablet (B12/Levomefolate Calcium/B-6) 1 Each Tablet 1 Each PO Omeprazole 40 Mg Capsule. 1 Cap PO DAILY Cholestyramine Packet (Cholestyramine (With Sugar)) 4 Gm Powd.pack 4 Gm PO Gabapentin 600 Mg Tablet 600 Mg PO TID Folic Acid 1 Mg Tablet 1 Tab PO DAILY Clonidine Hcl 0.1 Mg Tablet 0.1 Mg PO BID Metformin Hcl 1,000 Mg Tablet 1,000 Mg PO BIDWMEALS Atorvastatin Calcium 40 Mg Tablet 1 Tab PO DAILY Vitals/I & O Vital Sign - Last 24 Hours 02/10/17 02/10/17 02/10/17 02/10/17 14:26 15:00 15:25 19:00 Temp 97.9 97.4 97.9 97.4 Pulse 55 57 Resp 18 18 B/P (MAP) 124/46 (72) 131/73 (92) Pulse Ox 98 95 95 95 O2 Delivery Room Air Room Air Room Air Room Air O2 Flow Rate 2.0 02/10/17 02/10/17 02/10/1717 20:00 20:09 23:00 00:09 Temp 98.8 98.8 Pulse 68 Resp 22 18 20 B/P (MAP) 121/61 (81) Pulse Ox 95 98 O2 Delivery Room Air Room Air Room Air O2 Flow Rate 2.0 02/11/17 02/11/17 02/11/17 02/11/17 03:00 07:00 08:00 08:57 Temp 98.4 97.9 98.4 97.9 Pulse 62 70 70 Resp 18 16 B/P (MAP) 110/60 (77) 134/60 (84) 134/60 Pulse Ox 96 93 O2 Delivery Room Air Room Air Room Air O2 Flow Rate 10.0 02/11/17 02/11/17 02/11/17 02/11/17 08:58 11:00 12:58 13:48 Temp 98.1 98.1 Pulse 67 Resp 18 B/P (MAP) 142/65 (90) Pulse Ox 93 93 93 93 O2 Delivery Room Air Room Air Room Air Room Air O2 Flow Rate 10.0 10.0 10.0 Intake and Output 02/10/17 02/10/17 02/11/17 15:00 23:00 07:00 Intake Total 900 ml 2700 ml Output Total 385 ml Balance 515 ml 2700 ml JESSICA RAMIREZ III DO Feb 11, 2017 14:15
[2017-02-11 15:00] VITALS: BP 125/60
[2017-02-11 19:00] VITALS: BP 12/65
[2017-02-11] MEDS: ATORVASTATIN CALCIUM 40 MG TABLET. PO SCH (21:03)
[2017-02-11 23:00] VITALS: BP 114/58
[2017-02-12 03:00] VITALS: BP 117/54
[2017-02-12 05:05] LABS: BASO # 0.1 x10^3/uL (0.0-0.2); BASO % 1 % (0-3); EOS % 11 % (0-3); HEMATOCRIT 25.7 % (39.0-53.0); HEMOGLOBIN 8.2 g/dL (13.0-17.5); LYMPH # 0.9 x10^3/uL (1.0-4.8); LYMPH % 21 % (24-48); MEAN CORPUSCULAR HEMOGLOBIN 32 pg (25-35); MEAN CORPUSCULAR HGB CONC 32 g/dL (31-37); MEAN CORPUSCULAR VOLUME 100 fL (79-100); MONO % 7 % (0-9); NEUT % 60 % (31-73); PLATELET COUNT 177 x10^3/uL (140-400); RED BLOOD COUNT 2.58 x10^6/uL (4.30-5.70); RED CELL DISTRIBUTION WIDTH 18.2 % (11.5-14.5); WHITE BLOOD COUNT 4.4 x10^3/uL (4.0-11.0)
[2017-02-12] MEDS: LEVOTHYROXINE 25 MCG TABLET. PO SCH (05:45)
[2017-02-12] MEDS: CHOLESTYRAMINE/ASPARTAME 4 GM PACKET PO SCH (05:45)
[2017-02-12 05:56] LABS: ALBUMIN 2.2 g/dL (3.4-5.0); ALBUMIN/GLOBULIN RATIO 0.7 (1.0-1.7); CALCIUM 8.2 mg/dL (8.5-10.1); CREATININE 1.2 mg/dL (0.7-1.3); GFR 59.7; POTASSIUM 3.9 mmol/L (3.5-5.1); TOTAL BILIRUBIN 1.1 mg/dL (0.2-1.0); TOTAL PROTEIN 5.5 g/dL (6.4-8.2)
[2017-02-12 07:00] VITALS: BP 139/61
[2017-02-12] MEDS: CHOLECALCIFEROL (VITAMIN D3) 1,000 UNIT TABLET PO SCH (08:27)
[2017-02-12] MEDS: FOLIC ACID 1 MG TABLET. PO SCH (08:28)
[2017-02-12] MEDS: GABAPENTIN 300 MG CAPSULE. PO SCH (08:28)
[2017-02-12] MEDS: amLODIPine BESYLATE 10 MG TABLET PO SCH (08:28)
[2017-02-12] MEDS: oxyCODONE ER 15 MG TAB.ER.12H PO SCH (08:28)
[2017-02-12] MEDS: ASPIRIN ENTERIC COATED 81 MG TABLET.DR. PO SCH (08:28)
[2017-02-12] MEDS: HYDROcodone/APAP 10/325 1 TAB TABLET PO PRN (08:28)
[2017-02-12] MEDS: SENNOSIDES/DOCUSATE 8.6/50MG TABLET. PO SCH (08:29)
[2017-02-12] MEDS: LIDOCAINE (700MG/PATCH) PATCH. TP SCH (08:29)
[2017-02-12] MEDS: DICLOFENAC SODIUM 1% TOPICAL GEL 100GM TUBE. TP SCH ×2 (08:29→13:00)
--- NOTE | 2017-02-12 09:05 | PDOC ---
PROGRESS NOTES Subjective Subjective HPI - Anemia with mild elevation in retic, LDH, bili and decreased haptoglobin ros - has back pain Objective Objective Vital Signs Date Time Temp Pulse Resp B/P (MAP) Pulse Ox O2 Delivery O2 Flow Rate FiO2 02/12/17 08:28 60 139/61 02/12/17 08:28 Room Air 02/12/17 07:00 97.9 18 95 97.9 02/11/17 14:51 10.0 Intake and Output 02/12/17 07:00 Intake Total 1640 ml Output Total 825 ml Balance 815 ml Intake Oral 1640 ml Output Urine Total 825 ml # Bowel Movements 1 Physical Exam Heart: Normal S1, Normal S2 General: Alert, Oriented X3 Lungs: Clear to auscultation Neuro: Normal speech Psych/Mental Status: Mental status NL Assessment Assessment Problems Medical Problems: (1) Hyperbilirubinemia Status: Acute IMPRESSION AND PLAN: 1. Anemia with mild elevation in retic, LDH, bili and decreased haptoglobin is suggestive of a mild hemolytic process. Mayte test is negative. Hb now at 8.2. Considering the chronicity of anemia, s/p BM bx 02/06/17 to r/o primary bone marrow disorders. Retic normal at 1.3 on 02/07/17 and improved bili 1.1. Hence no need for steroids. f/u with me in 2-3 weeks to review bone marrow results. 2. Bone lesion due to fracture. He also has multiple other lesions in the spine. Thought to be benign. Now s/p L1 to L4 fusion laminectomy L4, Bx L3 and removal of L4 hematoma on 01/24/2017. Path negative for malignancy. Bone scan does not reveal uptake. Myeloma labs normal. Bone survey 01/18/17: Sclerotic foci in the cervical spine. These are likely benign in view of the lack of abnormal uptake on the current bone scan. Distracted Chance type fracture of the L3 vertebral body, better demonstrated on previous CT images. CT chest, abdomen and pelvis did not reveal a malignancy. I d/w IR, he feels that this may just be an acute fracture. MRI reviewed. There is autofusion of L1-L2 and L3-L5 with a distracted fracture extending through the anterior, middle and posterior columns of the L3 vertebrae as well as the posterior elements at the L3 vertebral level compatible with a Chance fracture. There is disruption of the anterior and posterior longitudinal ligaments as well as the posterior ligamentous complex. There is an epidural hematoma resulting in severe spinal canal stenosis and likely cauda equina syndrome. PSA normal. 3. Left renal lesion, u/s ultrasound of the kidney does not reveal malignancy. Comment Review of Relevant I have reviewed the following items bernadine (where applicable) has been applied. Labs Laboratory Tests Test 02/10/17 10:52 02/11/17 05:35 02/12/17 04:15 Glucose (Fingerstick) 107 mg/dL (70-99) White Blood Count 4.1 x10^3/uL (4.0-11.0) 4.4 x10^3/uL (4.0-11.0) Red Blood Count 2.59 x10^6/uL (4.30-5.70) 2.58 x10^6/uL (4.30-5.70) Hemoglobin 8.4 g/dL (13.0-17.5) 8.2 g/dL (13.0-17.5) Hematocrit 25.8 % (39.0-53.0) 25.7 % (39.0-53.0) Mean Corpuscular Volume 100 fL (79-100) 100 fL (79-100) Mean Corpuscular Hemoglobin 32 pg (25-35) 32 pg (25-35) Mean Corpuscular Hemoglobin Concent 32 g/dL (31-37) 32 g/dL (31-37) Red Cell Distribution Width 18.2 % (11.5-14.5) 18.2 % (11.5-14.5) Platelet Count 181 x10^3/uL (140-400) 177 x10^3/uL (140-400) Neutrophils (%) (Auto) 57 % (31-73) 60 % (31-73) Lymphocytes (%) (Auto) 23 % (24-48) 21 % (24-48) Monocytes (%) (Auto) 7 % (0-9) 7 % (0-9) Eosinophils (%) (Auto) 11 % (0-3) 11 % (0-3) Basophils (%) (Auto) 2 % (0-3) 1 % (0-3) Neutrophils # (Auto) 2.3 x10^3uL (1.8-7.7) 2.6 x10^3uL (1.8-7.7) Lymphocytes # (Auto) 0.9 x10^3/uL (1.0-4.8) 0.9 x10^3/uL (1.0-4.8) Monocytes # (Auto) 0.3 x10^3/uL (0.0-1.1) 0.3 x10^3/uL (0.0-1.1) Eosinophils # (Auto) 0.4 x10^3/uL (0.0-0.7) 0.5 x10^3/uL (0.0-0.7) Basophils # (Auto) 0.1 x10^3/uL (0.0-0.2) 0.1 x10^3/uL (0.0-0.2) Sodium Level 142 mmol/L (136-145) 142 mmol/L (136-145) Potassium Level 4.5 mmol/L (3.5-5.1) 3.9 mmol/L (3.5-5.1) Chloride Level 109 mmol/L (98-107) 109 mmol/L (98-107) Carbon Dioxide Level 27 mmol/L (21-32) 21 mmol/L (21-32) Anion Gap 6 (6-14) 12 (6-14) Blood Urea Nitrogen 16 mg/dL (8-26) 15 mg/dL (8-26) Creatinine 1.2 mg/dL (0.7-1.3) 1.2 mg/dL (0.7-1.3) Estimated GFR (Cockcroft-Gault) 59.7 59.7 BUN/Creatinine Ratio 13 (6-20) 13 (6-20) Glucose Level 92 mg/dL (70-99) 91 mg/dL (70-99) Calcium Level 8.3 mg/dL (8.5-10.1) 8.2 mg/dL (8.5-10.1) Total Bilirubin 1.3 mg/dL (0.2-1.0) 1.1 mg/dL (0.2-1.0) Aspartate Amino Transf (AST/SGOT) 17 U/L (15-37) 17 U/L (15-37) Alanine Aminotransferase (ALT/SGPT) 13 U/L (16-63) 12 U/L (16-63) Alkaline Phosphatase 144 U/L (46-116) 142 U/L (46-116) Total Protein 5.6 g/dL (6.4-8.2) 5.5 g/dL (6.4-8.2) Albumin 2.3 g/dL (3.4-5.0) 2.2 g/dL (3.4-5.0) Albumin/Globulin Ratio 0.7 (1.0-1.7) 0.7 (1.0-1.7) Laboratory Tests Test 02/12/17 04:15 White Blood Count 4.4 x10^3/uL (4.0-11.0) Red Blood Count 2.58 x10^6/uL (4.30-5.70) Hemoglobin 8.2 g/dL (13.0-17.5) Hematocrit 25.7 % (39.0-53.0) Mean Corpuscular Volume 100 fL (79-100) Mean Corpuscular Hemoglobin 32 pg (25-35) Mean Corpuscular Hemoglobin Concent 32 g/dL (31-37) Red Cell Distribution Width 18.2 % (11.5-14.5) Platelet Count 177 x10^3/uL (140-400) Neutrophils (%) (Auto) 60 % (31-73) Lymphocytes (%) (Auto) 21 % (24-48) Monocytes (%) (Auto) 7 % (0-9) Eosinophils (%) (Auto) 11 % (0-3) Basophils (%) (Auto) 1 % (0-3) Neutrophils # (Auto) 2.6 x10^3uL (1.8-7.7) Lymphocytes # (Auto) 0.9 x10^3/uL (1.0-4.8) Monocytes # (Auto) 0.3 x10^3/uL (0.0-1.1) Eosinophils # (Auto) 0.5 x10^3/uL (0.0-0.7) Basophils # (Auto) 0.1 x10^3/uL (0.0-0.2) Sodium Level 142 mmol/L (136-145) Potassium Level 3.9 mmol/L (3.5-5.1) Chloride Level 109 mmol/L (98-107) Carbon Dioxide Level 21 mmol/L (21-32) Anion Gap 12 (6-14) Blood Urea Nitrogen 15 mg/dL (8-26) Creatinine 1.2 mg/dL (0.7-1.3) Estimated GFR (Cockcroft-Gault) 59.7 BUN/Creatinine Ratio 13 (6-20) Glucose Level 91 mg/dL (70-99) Calcium Level 8.2 mg/dL (8.5-10.1) Total Bilirubin 1.1 mg/dL (0.2-1.0) Aspartate Amino Transf (AST/SGOT) 17 U/L (15-37) Alanine Aminotransferase (ALT/SGPT) 12 U/L (16-63) Alkaline Phosphatase 142 U/L (46-116) Total Protein 5.5 g/dL (6.4-8.2) Albumin 2.2 g/dL (3.4-5.0) Albumin/Globulin Ratio 0.7 (1.0-1.7) Medications Current Medications Morphine Sulfate 2 mg PRN Q15MIN PRN IV/SQ PAIN GREATER THAN 3/10 Last administered on 02/04/17 13:44; Start 02/04/17 at 13:15; Stop 02/04/17 at 15 :05; Status DC Ondansetron HCl (Zofran) 4 mg 1X ONCE IV Last administered on 02/04/17 13:26 ; Start 02/04/17 at 13:15; Stop 02/04/17 at 13:16; Status DC Ondansetron HCl (Zofran) 4 mg PRN Q8HRS PRN IV NAUSEA/VOMITING; Start at 15:00; Stop 02/05/17 at 14:59; Status DC Morphine Sulfate 2 mg PRN Q2HR PRN IV PAIN Last administered on 02/04/17 17: 49; Start 02/04/17 at 15:00; Stop 02/05/17 at 14:59; Status DC Amlodipine Besylate (Norvasc) 5 mg DAILY PO Last administered on 02/05/17 08: 32; Start 02/05/17 at 09:00; Stop 02/07/17 at 09:14; Status DC Aspirin (Ecotrin) 81 mg DAILYWBKFT PO Last administered on 02/12/17 08:28; Start 02/05/17 at 08:00 Atorvastatin Calcium (Lipitor) 40 mg QHS PO Last administered on 02/11/17 21: 03; Start 02/04/17 at 21:00 Vitamin D (Vitamin D3) 2,000 unit DAILY PO Last administered on 02/12/17 08: 27; Start 02/05/17 at 09:00 Clonidine HCl (Catapres) 0.1 mg BID PO Last administered on 02/06/17 21:37; Start 02/04/17 at 21:00; Stop 02/07/17 at 09:14; Status DC Diclofenac Sodium (Voltaren) 1 jose a QID TP Last administered on 02/12/17 08:29 ; Start 02/04/17 at 21:00 Folic Acid (Folic Acid) 1 mg DAILY PO Last administered on 02/12/17 08:28; Start 02/05/17 at 09:00 Acetaminophen/ Hydrocodone Bitart (Lortab 10/325) 1 tab PRN Q6HRS PRN PO MODERATE PAIN Last administered on 02/12/17 08:28; Start 02/04/17 at 19:30 Lidocaine (Lidoderm) 1 patch DAILY TP Last administered on 02/12/17 08:29; Start 02/05/17 at 09:00 Loperamide HCl (Imodium) 2 mg PRN QID PRN PO DIARRHEA; Start 02/04/17 at 19:30 ; Stop 02/05/17 at 13:29; Status DC Metformin HCl (Glucophage) 1,000 mg BIDWMEALS PO Last administered on 08:28; Start 02/05/17 at 08:00 Metoprolol Succinate (Toprol Xl) 25 mg BID PO Last administered on 02/06/17 21:36; Start 02/04/17 at 21:00; Stop 02/07/17 at 09:14; Status DC Oxycodone HCl (OxyCONTIN) 30 mg Q12HR PO Last administered on 02/12/17 08:28 ; Start 02/04/17 at 21:00 Senna/Docusate Sodium (Senna Plus) 2 tab DAILY PO Last administered on 08:57; Start 02/05/17 at 09:00 Gabapentin (Neurontin) 600 mg TID PO Last administered on 02/12/17 08:28; Start 02/04/17 at 21:00 Cholestyramine Resin (Questran Light) 4 gm BID PO ; Start 02/04/17 at 21:15; Stop 02/05/17 at 01:39; Status DC Loperamide HCl (Imodium) 4 mg PRN Q15MIN PRN PO DIARRHEA; Start 02/04/17 at 21 :15 Cholestyramine Resin (Questran Light) 4 gm [id number] PO Last administered on 05:45; Start 02/05/17 at 06:00 Lidocaine/Sodium Bicarbonate (Buffered Lidocaine 1%) 20 ml 1X ONCE IJ Last administered on 02/06/17 11:39; Start 02/06/17 at 11:15; Stop 02/06/17 at 11 :18; Status DC Midazolam HCl (Versed) 2 mg 1X ONCE IV Last administered on 02/06/17 11:40; Start 02/06/17 at 11:15; Stop 02/06/17 at 11:18; Status DC Fentanyl Citrate (Fentanyl 2ml Vial) 100 mcg 1X ONCE IV Last administered on 02/06/17 11:41; Start 02/06/17 at 11:15; Stop 02/06/17 at 11:18; Status DC Amlodipine Besylate (Norvasc) 10 mg DAILY PO Last administered on 02/12/17 08 :28; Start 02/07/17 at 10:00 Magnesium Sulfate/ Dextrose 50 ml @ 25 mls/hr 1X ONCE IV Last administered on 02/07/17 11:55; Start 02/07/17 at 11:30; Stop 02/07/17 at 13:29; Status DC Hydralazine HCl (Apresoline Inj) 10 mg PRN Q4HRS PRN IVP ELEVATED BP, SEE COMMENTS; Start 02/07/17 at 11:15 Levothyroxine Sodium (Synthroid) 25 mcg DAILY07 PO Last administered on 05:45; Start 02/07/17 at 15:30 Non-Formulary Medication 1 ea Q2WKS SQ Last administered on 02/09/17 13:11; Start 02/09/17 at 12:00 Active Scripts Active Metoprolol Succinate ( Xl ) (Metoprolol Succinate) 25 Mg Tab.er.24h 25 Mg PO BID 30 Days Hydrocodone-Apap 10-325 (Hydrocodone Bit/Acetaminophen) 1 Each Tablet 1 Tab PO PRN Q6HRS PRN Senna-Time S Tablet (Sennosides/Docusate Sodium) 1 Each Tablet 2 Tab PO DAILY 10 Days Oxycontin (Oxycodone HCl) 15 Mg Tab.er.12h 30 Mg PO Q12HR Aspirin Ec (Aspirin) 81 Mg Tablet. 81 Mg PO DAILYWBKFT 30 Days Amlodipine Besylate 5 Mg Tablet 5 Mg PO DAILY 30 Days Reported Loperamide (Loperamide Hcl) 2 Mg Capsule 2 Mg PO PRN QID PRN Voltaren (Diclofenac Sodium) 100 Gm Gel..gram. 1 Gm TP QID Lidocaine 1 Each Adh..patch 1 Each TP DAILY Vitamin D3 (Cholecalciferol (Vitamin D3)) 1,000 Unit Tablet 2,000 Unit PO Humira (Adalimumab) 40 Mg/0.8 Ml Pen.ij.kit 1 Syr SQ Q2WKS Folbic Rf Tablet (B12/Levomefolate Calcium/B-6) 1 Each Tablet 1 Each PO Omeprazole 40 Mg Capsule. 1 Cap PO DAILY Cholestyramine Packet (Cholestyramine (With Sugar)) 4 Gm Powd.pack 4 Gm PO Gabapentin 600 Mg Tablet 600 Mg PO TID Folic Acid 1 Mg Tablet 1 Tab PO DAILY Clonidine Hcl 0.1 Mg Tablet 0.1 Mg PO BID Metformin Hcl 1,000 Mg Tablet 1,000 Mg PO BIDWMEALS Atorvastatin Calcium 40 Mg Tablet 1 Tab PO DAILY Vitals/I & O Vital Sign - Last 24 Hours 02/11/17 02/11/17 02/11/17 02/11/17 11:00 12:58 13:48 14:51 Temp 98.1 98.1 Pulse 67 Resp 18 B/P (MAP) 142/65 (90) Pulse Ox 93 93 93 93 O2 Delivery Room Air Room Air Room Air O2 Flow Rate 10.0 10.0 10.0 02/11/17 02/11/17 02/11/17 02/11/17 15:00 19:00 20:00 21:03 Temp 97.7 97.4 97.7 97.4 Pulse 66 61 Resp 18 18 20 B/P (MAP) 125/60 (81) 12/65 (48) Pulse Ox 94 93 O2 Delivery Room Air Room Air Room Air Room Air 02/11/17 02/12/17 02/12/17 02/12/17 23:00 01:03 03:00 07:00 Temp 98.5 98.3 97.9 98.5 98.3 97.9 Pulse 56 60 60 Resp 18 18 18 18 B/P (MAP) 114/58 (76) 117/54 (75) 139/61 (87) Pulse Ox 99 97 95 O2 Delivery BiPAP/CPAP Room Air Room Air Room Air 02/12/17 02/12/17 02/12/17 08:28 08:28 08:28 Pulse 60 B/P (MAP) 139/61 O2 Delivery Room Air Room Air Intake and Output 02/11/17 02/11/17 02/12/17 15:00 23:00 07:00 Intake Total 220 ml 520 ml 900 ml Output Total 625 ml 200 ml Balance 220 ml -105 ml 700 ml PINEDA FIELDS MD Feb 12, 2017 09:05
[2017-02-12 11:40] VITALS: BP 133/69
--- NOTE | 2017-02-12 12:25 | PDOC ---
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5-14.5) Platelet Count 177 x10^3/uL (140-400) Neutrophils (%) (Auto) 60 % (31-73) Lymphocytes (%) (Auto) 21 % (24-48) Monocytes (%) (Auto) 7 % (0-9) Eosinophils (%) (Auto) 11 % (0-3) Basophils (%) (Auto) 1 % (0-3) Neutrophils # (Auto) 2.6 x10^3uL (1.8-7.7) Lymphocytes # (Auto) 0.9 x10^3/uL (1.0-4.8) Monocytes # (Auto) 0.3 x10^3/uL (0.0-1.1) Eosinophils # (Auto) 0.5 x10^3/uL (0.0-0.7) Basophils # (Auto) 0.1 x10^3/uL (0.0-0.2) Sodium Level 142 mmol/L (136-145) Potassium Level 3.9 mmol/L (3.5-5.1) Chloride Level 109 mmol/L (98-107) Carbon Dioxide Level 21 mmol/L (21-32) Anion Gap 12 (6-14) Blood Urea Nitrogen 15 mg/dL (8-26) Creatinine 1.2 mg/dL (0.7-1.3) Estimated GFR (Cockcroft-Gault) 59.7 BUN/Creatinine Ratio 13 (6-20) Glucose Level 91 mg/dL (70-99) Calcium Level 8.2 mg/dL (8.5-10.1) Total Bilirubin 1.1 mg/dL (0.2-1.0) Aspartate Amino Transf (AST/SGOT) 17 U/L (15-37) Alanine Aminotransferase (ALT/SGPT) 12 U/L (16-63) Alkaline Phosphatase 142 U/L (46-116) Total Protein 5.5 g/dL (6.4-8.2) Albumin 2.2 g/dL (3.4-5.0) Albumin/Globulin Ratio 0.7 (1.0-1.7) Review of Systems Review of Systems General: No Fever, Hunger, Fatigue CV: No Chest Pain, Palpitations Assessment and Plan Assessmemt and Plan Assessment: Hyperbilirubinemia CAD Diabetes-Type II High Cholesterol Heart Disease Crohns Sleep apnea Chronic Back Pain Plan: Continue Cardiac Monitoring Continue Monitoring HH (Anemia) Continue Cardiac Diet Continue Home Meds Continue PT/OT Recheck Labs Awaiting BM Bx results- Heme/Onc DC- SNU probable today Problems: Comment Review of Relevant I have reviewed the following items bernadine (where applicable) has been applied. Labs Laboratory Tests Test 02/11/17 05:35 02/12/17 04:15 White Blood Count 4.1 x10^3/uL (4.0-11.0) 4.4 x10^3/uL (4.0-11.0) Red Blood Count 2.59 x10^6/uL (4.30-5.70) 2.58 x10^6/uL (4.30-5.70) Hemoglobin 8.4 g/dL (13.0-17.5) 8.2 g/dL (13.0-17.5) Hematocrit 25.8 % (39.0-53.0) 25.7 % (39.0-53.0) Mean Corpuscular Volume 100 fL (79-100) 100 fL (79-100) Mean Corpuscular Hemoglobin 32 pg (25-35) 32 pg (25-35) Mean Corpuscular Hemoglobin Concent 32 g/dL (31-37) 32 g/dL (31-37) Red Cell Distribution Width 18.2 % (11.5-14.5) 18.2 % (11.5-14.5) Platelet Count 181 x10^3/uL (140-400) 177 x10^3/uL (140-400) Neutrophils (%) (Auto) 57 % (31-73) 60 % (31-73) Lymphocytes (%) (Auto) 23 % (24-48) 21 % (24-48) Monocytes (%) (Auto) 7 % (0-9) 7 % (0-9) Eosinophils (%) (Auto) 11 % (0-3) 11 % (0-3) Basophils (%) (Auto) 2 % (0-3) 1 % (0-3) Neutrophils # (Auto) 2.3 x10^3uL (1.8-7.7) 2.6 x10^3uL (1.8-7.7) Lymphocytes # (Auto) 0.9 x10^3/uL (1.0-4.8) 0.9 x10^3/uL (1.0-4.8) Monocytes # (Auto) 0.3 x10^3/uL (0.0-1.1) 0.3 x10^3/uL (0.0-1.1) Eosinophils # (Auto) 0.4 x10^3/uL (0.0-0.7) 0.5 x10^3/uL (0.0-0.7) Basophils # (Auto) 0.1 x10^3/uL (0.0-0.2) 0.1 x10^3/uL (0.0-0.2) Sodium Level 142 mmol/L (136-145) 142 mmol/L (136-145) Potassium Level 4.5 mmol/L (3.5-5.1) 3.9 mmol/L (3.5-5.1) Chloride Level 109 mmol/L (98-107) 109 mmol/L (98-107) Carbon Dioxide Level 27 mmol/L (21-32) 21 mmol/L (21-32) Anion Gap 6 (6-14) 12 (6-14) Blood Urea Nitrogen 16 mg/dL (8-26) 15 mg/dL (8-26) Creatinine 1.2 mg/dL (0.7-1.3) 1.2 mg/dL (0.7-1.3) Estimated GFR (Cockcroft-Gault) 59.7 59.7 BUN/Creatinine Ratio 13 (6-20) 13 (6-20) Glucose Level 92 mg/dL (70-99) 91 mg/dL (70-99) Calcium Level 8.3 mg/dL (8.5-10.1) 8.2 mg/dL (8.5-10.1) Total Bilirubin 1.3 mg/dL (0.2-1.0) 1.1 mg/dL (0.2-1.0) Aspartate Amino Transf (AST/SGOT) 17 U/L (15-37) 17 U/L (15-37) Alanine Aminotransferase (ALT/SGPT) 13 U/L (16-63) 12 U/L (16-63) Alkaline Phosphatase 144 U/L (46-116) 142 U/L (46-116) Total Protein 5.6 g/dL (6.4-8.2) 5.5 g/dL (6.4-8.2) Albumin 2.3 g/dL (3.4-5.0) 2.2 g/dL (3.4-5.0) Albumin/Globulin Ratio 0.7 (1.0-1.7) 0.7 (1.0-1.7) Laboratory Tests Test 02/12/17 04:15 White Blood Count 4.4 x10^3/uL (4.0-11.0) Red Blood Count 2.58 x10^6/uL (4.30-5.70) Hemoglobin 8.2 g/dL (13.0-17.5) Hematocrit 25.7 % (39.0-53.0) Mean Corpuscular Volume 100 fL (79-100) Mean Corpuscular Hemoglobin 32 pg (25-35) Mean Corpuscular Hemoglobin Concent 32 g/dL (31-37) Red Cell Distribution Width 18.2 % (11.5-14.5) Platelet Count 177 x10^3/uL (140-400) Neutrophils (%) (Auto) 60 % (31-73) Lymphocytes (%) (Auto) 21 % (24-48) Monocytes (%) (Auto) 7 % (0-9) Eosinophils (%) (Auto) 11 % (0-3) Basophils (%) (Auto) 1 % (0-3) Neutrophils # (Auto) 2.6 x10^3uL (1.8-7.7) Lymphocytes # (Auto) 0.9 x10^3/uL (1.0-4.8) Monocytes # (Auto) 0.3 x10^3/uL (0.0-1.1) Eosinophils # (Auto) 0.5 x10^3/uL (0.0-0.7) Basophils # (Auto) 0.1 x10^3/uL (0.0-0.2) Sodium Level 142 mmol/L (136-145) Potassium Level 3.9 mmol/L (3.5-5.1) Chloride Level 109 mmol/L (98-107) Carbon Dioxide Level 21 mmol/L (21-32) Anion Gap 12 (6-14) Blood Urea Nitrogen 15 mg/dL (8-26) Creatinine 1.2 mg/dL (0.7-1.3) Estimated GFR (Cockcroft-Gault) 59.7 BUN/Creatinine Ratio 13 (6-20) Glucose Level 91 mg/dL (70-99) Calcium Level 8.2 mg/dL (8.5-10.1) Total Bilirubin 1.1 mg/dL (0.2-1.0) Aspartate Amino Transf (AST/SGOT) 17 U/L (15-37) Alanine Aminotransferase (ALT/SGPT) 12 U/L (16-63) Alkaline Phosphatase 142 U/L (46-116) Total Protein 5.5 g/dL (6.4-8.2) Albumin 2.2 g/dL (3.4-5.0) Albumin/Globulin Ratio 0.7 (1.0-1.7) Medications Current Medications Morphine Sulfate 2 mg PRN Q15MIN PRN IV/SQ PAIN GREATER THAN 3/10 Last administered on 02/04/17 13:44; Start 02/04/17 at 13:15; Stop 02/04/17 at 15 :05; Status DC Ondansetron HCl (Zofran) 4 mg 1X ONCE IV Last administered on 02/04/17 13:26 ; Start 02/04/17 at 13:15; Stop 02/04/17 at 13:16; Status DC Ondansetron HCl (Zofran) 4 mg PRN Q8HRS PRN IV NAUSEA/VOMITING; Start at 15:00; Stop 02/05/17 at 14:59; Status DC Morphine Sulfate 2 mg PRN Q2HR PRN IV PAIN Last administered on 02/04/17 17: 49; Start 02/04/17 at 15:00; Stop 02/05/17 at 14:59; Status DC Amlodipine Besylate (Norvasc) 5 mg DAILY PO Last administered on 02/05/17 08: 32; Start 02/05/17 at 09:00; Stop 02/07/17 at 09:14; Status DC Aspirin (Ecotrin) 81 mg DAILYWBKFT PO Last administered on 02/12/17 08:28; Start 02/05/17 at 08:00 Atorvastatin Calcium (Lipitor) 40 mg QHS PO Last administered on 02/11/17 21: 03; Start 02/04/17 at 21:00 Vitamin D (Vitamin D3) 2,000 unit DAILY PO Last administered on 02/12/17 08: 27; Start 02/05/17 at 09:00 Clonidine HCl (Catapres) 0.1 mg BID PO Last administered on 02/06/17 21:37; Start 02/04/17 at 21:00; Stop 02/07/17 at 09:14; Status DC Diclofenac Sodium (Voltaren) 1 jose a QID TP Last administered on 02/12/17 08:29 ; Start 02/04/17 at 21:00 Folic Acid (Folic Acid) 1 mg DAILY PO Last administered on 02/12/17 08:28; Start 02/05/17 at 09:00 Acetaminophen/ Hydrocodone Bitart (Lortab 10/325) 1 tab PRN Q6HRS PRN PO MODERATE PAIN Last administered on 02/12/17 08:28; Start 02/04/17 at 19:30 Lidocaine (Lidoderm) 1 patch DAILY TP Last administered on 02/12/17 08:29; Start 02/05/17 at 09:00 Loperamide HCl (Imodium) 2 mg PRN QID PRN PO DIARRHEA; Start 02/04/17 at 19:30 ; Stop 02/05/17 at 13:29; Status DC Metformin HCl (Glucophage) 1,000 mg BIDWMEALS PO Last administered on 08:28; Start 02/05/17 at 08:00 Metoprolol Succinate (Toprol Xl) 25 mg BID PO Last administered on 02/06/17 21:36; Start 02/04/17 at 21:00; Stop 02/07/17 at 09:14; Status DC Oxycodone HCl (OxyCONTIN) 30 mg Q12HR PO Last administered on 02/12/17 08:28 ; Start 02/04/17 at 21:00 Senna/Docusate Sodium (Senna Plus) 2 tab DAILY PO Last administered on 08:57; Start 02/05/17 at 09:00 Gabapentin (Neurontin) 600 mg TID PO Last administered on 02/12/17 08:28; Start 02/04/17 at 21:00 Cholestyramine Resin (Questran Light) 4 gm BID PO ; Start 02/04/17 at 21:15; Stop 02/05/17 at 01:39; Status DC Loperamide HCl (Imodium) 4 mg PRN Q15MIN PRN PO DIARRHEA; Start 02/04/17 at 21 :15 Cholestyramine Resin (Questran Light) 4 gm BID66 PO Last administered on 05:45; Start 02/05/17 at 06:00 Lidocaine/Sodium Bicarbonate (Buffered Lidocaine 1%) 20 ml 1X ONCE IJ Last administered on 02/06/17 11:39; Start 02/06/17 at 11:15; Stop 02/06/17 at 11 :18; Status DC Midazolam HCl (Versed) 2 mg 1X ONCE IV Last administered on 02/06/17 11:40; Start 02/06/17 at 11:15; Stop 02/06/17 at 11:18; Status DC Fentanyl Citrate (Fentanyl 2ml Vial) 100 mcg 1X ONCE IV Last administered on 02/06/17 11:41; Start 02/06/17 at 11:15; Stop 02/06/17 at 11:18; Status DC Amlodipine Besylate (Norvasc) 10 mg DAILY PO Last administered on 02/12/17 08 :28; Start 02/07/17 at 10:00 Magnesium Sulfate/ Dextrose 50 ml @ 25 mls/hr 1X ONCE IV Last administered on 02/07/17 11:55; Start 02/07/17 at 11:30; Stop 02/07/17 at 13:29; Status DC Hydralazine HCl (Apresoline Inj) 10 mg PRN Q4HRS PRN IVP ELEVATED BP, SEE COMMENTS; Start 02/07/17 at 11:15 Levothyroxine Sodium (Synthroid) 25 mcg DAILY07 PO Last administered on 05:45; Start 02/07/17 at 15:30 Non-Formulary Medication 1 ea Q2WKS SQ Last administered on 02/09/17 13:11; Start 02/09/17 at 12:00 Lidocaine/Sodium Bicarbonate (Buffered Lidocaine 1%) 20 ml STK-MED ONCE IJ ; Start 02/06/17 at 11:06; Stop 02/12/17 at 10:39; Status DC Fentanyl Citrate (Fentanyl 2ml Vial) 100 mcg STK-MED ONCE .ROUTE ; Start at 11:10; Stop 02/12/17 at 10:39; Status DC Midazolam HCl (Versed) 2 mg STK-MED ONCE .ROUTE ; Start 02/06/17 at 11:10; Stop 02/12/17 at 10:39; Status DC Active Scripts Active Metoprolol Succinate ( Xl ) (Metoprolol Succinate) 25 Mg Tab.er.24h 25 Mg PO BID 30 Days Hydrocodone-Apap 10-325 (Hydrocodone Bit/Acetaminophen) 1 Each Tablet 1 Tab PO PRN Q6HRS PRN Senna-Time S Tablet (Sennosides/Docusate Sodium) 1 Each Tablet 2 Tab PO DAILY 10 Days Oxycontin (Oxycodone HCl) 15 Mg Tab.er.12h 30 Mg PO Q12HR Aspirin Ec (Aspirin) 81 Mg Tablet. 81 Mg PO DAILYWBKFT 30 Days Amlodipine Besylate 5 Mg Tablet 5 Mg PO DAILY 30 Days Reported Loperamide (Loperamide Hcl) 2 Mg Capsule 2 Mg PO PRN QID PRN Voltaren (Diclofenac Sodium) 100 Gm Gel..gram. 1 Gm TP QID Lidocaine 1 Each Adh..patch 1 Each TP DAILY Vitamin D3 (Cholecalciferol (Vitamin D3)) 1,000 Unit Tablet 2,000 Unit PO Humira (Adalimumab) 40 Mg/0.8 Ml Pen.ij.kit 1 Syr SQ Q2WKS Folbic Rf Tablet (B12/Levomefolate Calcium/B-6) 1 Each Tablet 1 Each PO Omeprazole 40 Mg Capsule. 1 Cap PO DAILY Cholestyramine Packet (Cholestyramine (With Sugar)) 4 Gm Powd.pack 4 Gm PO Gabapentin 600 Mg Tablet 600 Mg PO TID Folic Acid 1 Mg Tablet 1 Tab PO DAILY Clonidine Hcl 0.1 Mg Tablet 0.1 Mg PO BID Metformin Hcl 1,000 Mg Tablet 1,000 Mg PO BIDWMEALS Atorvastatin Calcium 40 Mg Tablet 1 Tab PO DAILY Vitals/I & O Vital Sign - Last 24 Hours 02/11/17 02/11/17 02/11/17 02/11/17 12:58 13:48 14:51 15:00 Temp 97.7 97.7 Pulse 66 Resp 18 B/P (MAP) 125/60 (81) Pulse Ox 93 93 93 94 O2 Delivery Room Air Room Air O2 Flow Rate 10.0 10.0 10.0 02/11/17 02/11/17 02/11/17 02/11/17 19:00 20:00 21:03 23:00 Temp 97.4 98.5 97.4 98.5 Pulse 61 56 Resp 18 20 18 B/P (MAP) 12/65 (48) 114/58 (76) Pulse Ox 93 99 O2 Delivery Room Air Room Air Room Air BiPAP/CPAP 02/12/17 02/12/17 02/12/17 02/12/17 01:03 03:00 07:00 07:25 Temp 98.3 97.9 98.3 97.9 Pulse 60 60 Resp 18 18 18 B/P (MAP) 117/54 (75) 139/61 (87) Pulse Ox 97 95 O2 Delivery Room Air Room Air Room Air Room Air 02/12/17 02/12/17 02/12/17 02/12/17 08:28 08:28 08:28 09:52 Pulse 60 B/P (MAP) 139/61 O2 Delivery Room Air Room Air Room Air 02/12/17 02/12/17 10:04 11:40 Temp 97.7 97.7 Pulse 67 Resp 18 B/P (MAP) 133/69 (90) Pulse Ox 93 O2 Delivery Room Air Room Air Intake and Output 02/11/17 02/11/17 02/12/17 15:00 23:00 07:00 Intake Total 220 ml 520 ml 900 ml Output Total 625 ml 200 ml Balance 220 ml -105 ml 700 ml JESSICA RAMIREZ III DO Feb 12, 2017 12:25
--- NOTE | 2017-02-16 10:45 | DS ---
DATE OF DISCHARGE: 02/12/2017 ADMISSION DIAGNOSES: Recent back surgery, jaundice. DISCHARGE DIAGNOSES: Resolving jaundice, recent back surgery. HOSPITAL COURSE: The patient is a pleasant 71-year-old male who presented with some jaundice and he had a recent surgery on his back. Basically, we admitted the patient. We consulted Heme/Onc and Neurosurgery. No more surgery was required. His jaundice promptly resolved. We did do a bone marrow biopsy. We are awaiting the results of that, but basically he is doing well. We plan to discharge. DISPOSITION: USP. ACTIVITY: As tolerated. DIET: Low sodium. MEDICATIONS: Please see MRAD. TOTAL TIME ON DISCHARGE: 33 minutes. JESSICA RAMIREZ DO DR: SANTIAGO/meagan JOB#: [id number] / [id number]
--- NOTE | 2017-02-20 09:49 | PATHOLOGY ---
PATHOLOGY REPORT * * * * * * * * FINAL DIAGNOSIS: Peripheral smear: - Normocytic normochromic anemia, moderate, with mild anisopoikilocytosis. Bone marrow, aspirate smears, clot section, and core biopsy: - Mildly hypercellular marrow showing trilineage hematopoiesis, erythroid hyperplasia, no significant dyspoiesis, and markedly decreased iron stores. COMMENT: The peripheral smear shows a moderate normocytic normochromic anemia, status post transfusion, with mild anisopoikilocytosis. The bone marrow overall appears mildly hypercellular and shows trilineage hematopoiesis, erythroid hyperplasia, no significant dyspoiesis,and markedly decreased iron stores. The etiology of the anemia is not readily apparent from the peripheral blood and bone marrow examination. I cannot absolutely rule out an early MDS, although the marrow findings do not meet the morphologic criteria for MDS and cytogenetic studies are normal. Correlate clinically. (JPM:mgr; 02/19/2017) Special Stains Performed: Iron stain (B1, aspirate smear) REPORT ELECTRONICALLY SIGNED BY: Jesse Gonzalez M.D. DATE/TIME: 02/20/2017 09:49 * * * * * * * * MICROSCOPIC DESCRIPTION: Laboratory Data: The CBC results are dated 02/06/17. The WBC count is 7.4 K/CMM, and the automated WBC differential reveals 70% neutrophils, 15% lymphs, 8% monos, 6% eos, and 1% baso. The RBC count is 2.36 M/CMM, hemoglobin 7.6 G/DL, hematocrit 23.5%, MCV 99 FL, MCH 32 PG, MCHC 32 G/DL, and the RDW is 19.0%. The platelet count is 222 K/CMM. The reticulocyte count is 1.4% (corrected for anemia). The total protein is 5.5 G/DL, albumin 2.3 G/DL, and globulin 3.2 G/DL. The creatinine is 1.5 MG/DL. The total bilirubin is 1.5 MG/DL. The pro-BNP is 3,157 PG/ML. The LDH is 262 U/L. The serum ferritin is 238 NG/ML, serum iron 46 UG/DL, TIBC 349 UG/DL, and iron saturation 13%. The haptoglobin is < 10 MG/DL. The GRANT is negative. Peripheral Smear: The peripheral smear is reviewed. The WBC count is normal. The WBC differential reveals a predominance of segmented neutrophils, with smaller populations of lymphocytes, monocytes, and eosinophils noted. There is no significant neutrophilic left shift. There are no circulating blasts. There is no leukoerythroblastic reaction. Red blood cells predominantly appear normochromic. There is mild polychromasia. Red blood cells show mild anisocytosis and range from normocytic to mildly macrocytic. Red blood cells show mild poikilocytosis with a few ovalocytes, teardrop red blood cells, and spiculated red blood cells and occasional red blood cell fragments noted. Platelets appear normal in number and morphology. Aspirate Smears: Three Anderson's-stained and one iron-stained aspirate smears are examined. The smears contain multiple cellular and fatty marrow particles. Erythroid maturation predominantly appears normoblastic. There are no megaloblastic or overt dysplastic changes. Granulopoiesis qualitatively appears normal. There is no significant left shift or dysplastic changes. There is no increase of blasts. Megakaryocytes appear adequate in number and are of variable ploidy. There are scattered admixed plasma cells. The plasma cells have a relatively mature appearance and comprise less than 3% of nucleated marrow cells. There is no apparent increase of lymphocytes. There are no cells foreign to the marrow. The iron-stained aspirate smear shows markedly decreased iron stores. No ringed sideroblasts are identified. Bone Marrow Biopsy and Clot Sections: Sections of the bone marrow biopsy reveal several segments of blood clot and bone marrow showing focal aspiration artifact and hemorrhage. Preserved areas of the bone marrow range between 20-30% and 60-70% cellular. The clot section contains multiple marrow particles of similar cellularity. There is an erythroid hyperplasia. Colonies of erythroid precursors are readily identified distributed throughout the marrow particles. There are admixed granulocytic precursors present in varying stages of maturation. There are no clusters of blasts. There are focally admixed eosinophils. Megakaryocytes appear adequate in number and are of variable ploidy. There are scattered admixed plasma cells with no apparent increase of plasma cells noted. There are no abnormal lymphoid aggregates, granulomas, or cells foreign to the marrow. The iron stain of the clot section shows nearly absent stainable iron. No ringed sideroblasts are identified. Special Studies: Bone marrow submitted for flow cytometry has a viability of 98.8%. Granulocytes comprise 78.8% of total cells and show phenotypic evidence of maturation. Monocytes comprise 5.5% of total cells and show phenotypic evidence of maturation. CD45 dim, CD34 positive cells comprise 1.1% of total cells. Plasma cells comprise 0.3% of total cells and show unremarkable surface marker expression. Lymphocytes comprise 11.8% of total cells. T-cells comprise 76% of lymphoid cells and show a CD4/CD8 ratio of about 2.0. NK-cells comprise 11% of lymphoid cells. Mature B-cells comprise 8% of lymphoid cells and are polyclonal with a kappa:lambda ratio of 1.1. Bone marrow submitted for cytogenetic analysis shows a normal male karyotype in all cells analyzed. GROSS PATHOLOGY: A. Received in formalin labeled "Jesse Lee," are several fragmented needle cores of haney bone, ranging from 0.4 to 0.8 cm in length and 0.2 cm in diameter. The specimen is submitted entirely in cassette A1, following decalcification. B. Received in formalin labeled "Jesse Lee," is blood coagulum, measuring 2.8 x 2.5 x 0.4 cm in aggregate dimensions. The specimen is submitted entirely in cassette B1. (JPM; 02/06/17) INITIAL CPT CODE(S): 96337, 43194, 72860(2), 66337, 47896(2) Professional services [place] [facility] [place] [address] Technical services performed by [facility] at [address] [place] [address], [facility] [address], [place] [address]. SPECIMEN(S) RECEIVED: A.Bone marrow, biopsy B.Bone marrow, clot and/or particle prep C.Bone marrow, aspirate smears D.Peripheral smear CLINICAL HISTORY: Anemia, evaluate MDS PATIENT: JESSE LEE /AGE: 9 1945 (Age: 71) PATIENT #: [id number] ALT CASE #: SPECIMEN COLLECTION DATE: 02/06/2017 SPECIMEN RECEIVED DATE: 02/06/2017 [facility] - [address] [place] [address] - PHONE: [phone] * * * END OF REPORT * * *
== END 2017-02-12 13:30 | DRG 682 ==
LOC: ER 12:27 → 4 NORTH 14:00
PROVIDERS: ADMIT Internal Medicine Hematology & Oncology; ATTEND Internal Medicine Hematology & Oncology
PROC: 07DR3ZX Extraction of Iliac Bone Marrow, Percutaneous Approach, Diagnostic (ICD-10-PCS; principal; 2017-02-06)
DX: N17.0 Acute kidney failure with tubular necrosis (principal); E43 Unspecified severe protein-calorie malnutrition; E11.22 Type 2 diabetes mellitus with diabetic chronic kidney disease; D58.9 Hereditary hemolytic anemia, unspecified; I48.1 Persistent atrial fibrillation; I13.0 Hypertensive heart and chronic kidney disease with heart failure and stage 1 through stage 4 chronic kidney disease, or unspecified chronic kidney disease; I50.32 Chronic diastolic (congestive) heart failure; K50.90 Crohn's disease, unspecified, without complications; E03.9 Hypothyroidism, unspecified; E78.00 Pure hypercholesterolemia, unspecified; E78.5 Hyperlipidemia, unspecified; G47.33 Obstructive sleep apnea (adult) (pediatric); G89.29 Other chronic pain; I25.10 Atherosclerotic heart disease of native coronary artery without angina pectoris; N18.3 Chronic kidney disease, stage 3 (moderate); N40.0 Benign prostatic hyperplasia without lower urinary tract symptoms; Z82.49 Family history of ischemic heart disease and other diseases of the circulatory system; F10.20 Alcohol dependence, uncomplicated; M19.90 Unspecified osteoarthritis, unspecified site; Z90.49 Acquired absence of other specified parts of digestive tract; Z88.8 Allergy status to other drugs, medicaments and biological substances; E80.6 Other disorders of bilirubin metabolism; M89.9 Disorder of bone, unspecified
CPT/HCPCS: 36415; 38221; 72100; 73502; 77012; 80048; 80053; 80076; 81001; 82553; 82728; 82962; 83010; 83540; 83550; 83615; 83690; 83735; 83880; 84443; 84466; 84484; 85025; 85045; 85610; 86880; 87641; 88184; 88185; 88237; 88305; 88311; 88313; 93005; 96374; 96375; 99152; 99153; G0364; J2250; J2270; J2405; J3010; J7060; 97110; 97116; 97530; 97535; 99285-25

== ENCOUNTER → 2017-04-23 | Outpatient (CLI) | payer MEDICARE | END | disposition home or self-care (01) | LOC: KCIC 10:10 | DX: M48.56XA Collapsed vertebra, not elsewhere classified, lumbar region, initial encounter for fracture (principal); Z98.890 Other specified postprocedural states | CPT/HCPCS: 72100 ==

== ENCOUNTER 2017-07-10 13:17 | Inpatient (IN) | payer MEDICARE ==
[2017-07-10 14:30] LABS: ADD MAN DIFF? NO
[2017-07-10 14:33] LABS: BASO % 1 % (0-3); EOS # 0.2 x10^3/uL (0.0-0.7); EOS % 3 % (0-3); HEMATOCRIT 34.4 % (39.0-53.0); HEMOGLOBIN 11.4 g/dL (13.0-17.5); LYMPH # 1.4 x10^3/uL (1.0-4.8); LYMPH % 28 % (24-48); MEAN CORPUSCULAR HEMOGLOBIN 30 pg (25-35); MEAN CORPUSCULAR HGB CONC 33 g/dL (31-37); MEAN CORPUSCULAR VOLUME 92 fL (79-100); MONO # 0.3 x10^3/uL (0.0-1.1); MONO % 6 % (0-9); NEUT % 62 % (31-73); PLATELET COUNT 166 x10^3/uL (140-400); RED BLOOD COUNT 3.74 x10^6/uL (4.30-5.70); RED CELL DISTRIBUTION WIDTH 16.1 % (11.5-14.5); WHITE BLOOD COUNT 4.9 x10^3/uL (4.0-11.0)
[2017-07-10 14:45] LABS: ANION GAP 11 (6-14); BLOOD UREA NITROGEN 18 mg/dL (8-26); BUN/CREATININE RATIO 13 (6-20); CALCIUM 9.1 mg/dL (8.5-10.1); CARBON DIOXIDE 23 mmol/L (21-32); CHLORIDE 103 mmol/L (98-107); CREATININE 1.4 mg/dL (0.7-1.3); GLUCOSE 102 mg/dL (70-99); POTASSIUM 4.7 mmol/L (3.5-5.1); SODIUM 137 mmol/L (136-145)
[2017-07-10 14:51] LABS: ALBUMIN 3.7 g/dL (3.4-5.0); ALBUMIN/GLOBULIN RATIO 0.9 (1.0-1.7); ALK PHOS 75 U/L (46-116); ALT (SGPT) 13 U/L (16-63); AST (SGOT) 14 U/L (15-37); TOTAL BILIRUBIN 1.6 mg/dL (0.2-1.0); TOTAL PROTEIN 7.9 g/dL (6.4-8.2)
[2017-07-10 14:53] LABS: TROPONINI < 0.017 ng/mL (0.000-0.055)
[2017-07-10 16:10] LABS: BILIRUBIN,URINE NEGATIVE (NEG); CLARITY,URINE CLEAR; COLOR,URINE YELLOW; GLUCOSE,URINE NEGATIVE (NEG); NITRITE,URINE NEGATIVE (NEG); PH,URINE 5.5; PROTEIN,URINE NEGATIVE (NEG-TRACE); UROBILINOGEN,URINE 0.2 mg/dL (0.2 mg/dL)
[2017-07-10 16:29] LABS: BACTERIA,URINE 0 /HPF (0-FEW); HYALINE CASTS, URINE FEW /HPF; RBC,URINE 0 /HPF (0-2); SQUAMOUS EPITHELIAL CELL,UR FEW /LPF; WBC,URINE 0 /HPF (0-4)
[2017-07-10] MEDS: IOHEXOL 300 MG/ML 100ML VIAL. IV (17:15)
[2017-07-10] MEDS ORDERED: CONTRAST GIVEN MC (17:30)
[2017-07-10] MEDS ORDERED: ONDANSETRON PF 4 MG/2 ML VIAL. IV (18:45)
[2017-07-10 18:55] LABS: INR 1.3 (0.8-1.1); PARTIAL THROMBOPLASTIN TIME 44 SEC (24-38); PROTHROMBIN TIME PATIENT 15.6 SEC (11.7-14.0)
[2017-07-11] MEDS: MORPHINE SULFATE 4 MG/ML DISP.SYRIN. IV ×3 (08:58→11:40)
[2017-07-11] MEDS ORDERED: LIDOCAINE WITH 8.4% SOD BICARB 3 ML DISP.SYRIN. (10:49)
[2017-07-11] MEDS: LIDOCAINE WITH 8.4% SOD BICARB 3 ML DISP.SYRIN. INJ (11:24)
[2017-07-11 13:05] LABS: BF CLARITY HAZY; BF COLOR YELLOW; BF RBC COUNT 2550 /cmm; BF SOURCE PLEURAL; BF WBC COUNT 953 /cmm
[2017-07-11 13:06] LABS: BF MON % 89 %; BF OTHER % 6 %; BF PMN % 5 %; PH,BODY FLUID 7.55
[2017-07-11] MEDS: FERROUS SULFATE 325 MG TABLET. PO (19:00)
[2017-07-11] MEDS ORDERED: ONDANSETRON PF 4 MG/2 ML VIAL. IV (19:30)
[2017-07-11] MEDS ORDERED: PIP/TAZO PER PHARMACY MC (19:30)
[2017-07-11] MEDS ORDERED: DOCUSATE SODIUM 100 MG CAPSULE. PO (19:30)
[2017-07-11] MEDS ORDERED: hydrALAZINE 20 MG/ML VIAL. IVP (19:30)
[2017-07-11] MEDS ORDERED: ACETAMINOPHEN 325 MG TABLET. PO (19:30)
[2017-07-11] MEDS ORDERED: DEXTROSE 50% 25 GM / 50ML DISP.SYRIN. IV (19:30)
[2017-07-11] MEDS ORDERED: MORPHINE SULFATE 2 MG/ML DISP.SYRIN. IV (19:30)
[2017-07-11] MEDS: ASPIRIN 325 MG TABLET PO (20:51)
[2017-07-11] MEDS: PIPERACILLIN/TAZOBACTAM 3.375 GM in IV NORMAL SALINE 50ML 50 ML IV (20:51)
[2017-07-11] MEDS: GABAPENTIN 400 MG CAPSULE. PO (20:51)
[2017-07-11] MEDS: HYDROcodone/APAP 7.5/325MG 1 TAB TABLET PO (20:52)
[2017-07-11] MEDS: ATORVASTATIN CALCIUM 40 MG TABLET. PO (20:52)
[2017-07-12] MEDS: PIPERACILLIN/TAZOBACTAM 3.375 GM in IV NORMAL SALINE 50ML 50 ML IV ×4 (01:59→18:21)
[2017-07-12] MEDS: HYDROcodone/APAP 7.5/325MG 1 TAB TABLET PO ×2 (03:40→09:55)
[2017-07-12 04:37] LABS: ADD MAN DIFF? NO
[2017-07-12 04:47] LABS: BASO % 1 % (0-3); EOS # 0.1 x10^3/uL (0.0-0.7); EOS % 4 % (0-3); HEMATOCRIT 29.3 % (39.0-53.0); HEMOGLOBIN 9.7 g/dL (13.0-17.5); LYMPH # 1.2 x10^3/uL (1.0-4.8); LYMPH % 37 % (24-48); MEAN CORPUSCULAR HEMOGLOBIN 30 pg (25-35); MEAN CORPUSCULAR HGB CONC 33 g/dL (31-37); MEAN CORPUSCULAR VOLUME 92 fL (79-100); MONO # 0.3 x10^3/uL (0.0-1.1); MONO % 9 % (0-9); NEUT # 1.6 x10^3uL (1.8-7.7); NEUT % 49 % (31-73); PLATELET COUNT 126 x10^3/uL (140-400); RED CELL DISTRIBUTION WIDTH 15.7 % (11.5-14.5); WHITE BLOOD COUNT 3.3 x10^3/uL (4.0-11.0)
[2017-07-12 04:53] LABS: ANION GAP 8 (6-14); BLOOD UREA NITROGEN 13 mg/dL (8-26); CALCIUM 8.7 mg/dL (8.5-10.1); CARBON DIOXIDE 27 mmol/L (21-32); CHLORIDE 103 mmol/L (98-107); CREATININE 1.4 mg/dL (0.7-1.3); GLUCOSE 98 mg/dL (70-99); SODIUM 138 mmol/L (136-145)
[2017-07-12 06:58] LABS: PROCALCITONIN < 0.10 ng/mL (0.00-0.10)
[2017-07-12] MEDS: INSULIN LISPRO 300 UNITS/3 ML INSULN.PEN. SQ ×3 (08:00→17:00)
[2017-07-12] MEDS: GABAPENTIN 400 MG CAPSULE. PO ×2 (08:01→20:39)
[2017-07-12] MEDS: FOLIC ACID 1 MG TABLET. PO (08:02)
[2017-07-12] MEDS: PANTOPRAZOLE 40 MG TABLET.DR. PO (08:02)
[2017-07-12] MEDS: FERROUS SULFATE 325 MG TABLET. PO ×2 (08:02→17:10)
[2017-07-12] MEDS: CHOLECALCIFEROL (VITAMIN D3) 1,000 UNIT TABLET PO (08:02)
[2017-07-12] MEDS: METOPROLOL SUCC 24HR ER 100 MG TAB.ER.24H. PO (08:03)
[2017-07-12 08:09] LABS: POC GLUCOSE 94 mg/dL (70-99)
[2017-07-12] MEDS: traMADol 50 MG TABLET PO (08:20)
[2017-07-12 10:55] LABS: POC GLUCOSE 110 mg/dL (70-99)
[2017-07-12 15:35] LABS: BODY FLUID LDH 64 IU/L (.)
[2017-07-12 15:35] LABS: BODY FLUID GLUCOSE 98 mg/dL (.)
[2017-07-12 16:57] LABS: POC GLUCOSE 98 mg/dL (70-99)
[2017-07-12] MEDS: ASPIRIN 325 MG TABLET PO (20:39)
[2017-07-12] MEDS: ATORVASTATIN CALCIUM 40 MG TABLET. PO (20:39)
[2017-07-12] MEDS: LACTOBACILLUS RHAMNOSUS GG 1 CAPSULE. PO (20:39)
[2017-07-12 20:57] LABS: POC GLUCOSE 93 mg/dL (70-99)
[2017-07-13] MEDS: PIPERACILLIN/TAZOBACTAM 3.375 GM in IV NORMAL SALINE 50ML 50 ML IV ×2 (00:19→05:54)
[2017-07-13 04:19] LABS: ADD MAN DIFF? NO
[2017-07-13 04:29] LABS: BASO # 0.1 x10^3/uL (0.0-0.2); BASO % 1 % (0-3); EOS # 0.2 x10^3/uL (0.0-0.7); EOS % 5 % (0-3); HEMATOCRIT 30.1 % (39.0-53.0); HEMOGLOBIN 10.1 g/dL (13.0-17.5); LYMPH # 1.2 x10^3/uL (1.0-4.8); LYMPH % 32 % (24-48); MEAN CORPUSCULAR HEMOGLOBIN 31 pg (25-35); MEAN CORPUSCULAR HGB CONC 34 g/dL (31-37); MEAN CORPUSCULAR VOLUME 91 fL (79-100); MONO # 0.4 x10^3/uL (0.0-1.1); MONO % 10 % (0-9); NEUT % 52 % (31-73); PLATELET COUNT 144 x10^3/uL (140-400); RED CELL DISTRIBUTION WIDTH 16.4 % (11.5-14.5); WHITE BLOOD COUNT 3.9 x10^3/uL (4.0-11.0)
[2017-07-13 04:40] LABS: ANION GAP 5 (6-14); BLOOD UREA NITROGEN 13 mg/dL (8-26); CALCIUM 8.6 mg/dL (8.5-10.1); CARBON DIOXIDE 29 mmol/L (21-32); CHLORIDE 104 mmol/L (98-107); CREATININE 1.5 mg/dL (0.7-1.3); GFR 46.1; GLUCOSE 99 mg/dL (70-99); POTASSIUM 3.9 mmol/L (3.5-5.1); SODIUM 138 mmol/L (136-145)
[2017-07-13 07:35] LABS: POC GLUCOSE 85 mg/dL (70-99)
[2017-07-13] MEDS: INSULIN LISPRO 300 UNITS/3 ML INSULN.PEN. SQ (08:00)
[2017-07-13] MEDS: LACTOBACILLUS RHAMNOSUS GG 1 CAPSULE. PO (08:47)
[2017-07-13] MEDS: GABAPENTIN 400 MG CAPSULE. PO (08:47)
[2017-07-13] MEDS: CHOLECALCIFEROL (VITAMIN D3) 1,000 UNIT TABLET PO (08:47)
[2017-07-13] MEDS: PANTOPRAZOLE 40 MG TABLET.DR. PO (08:48)
[2017-07-13] MEDS: FOLIC ACID 1 MG TABLET. PO (08:48)
[2017-07-13] MEDS: METOPROLOL SUCC 24HR ER 100 MG TAB.ER.24H. PO (08:48)
[2017-07-13] MEDS: FERROUS SULFATE 325 MG TABLET. PO (08:49)
[2017-07-13] MEDS: HYDROcodone/APAP 7.5/325MG 1 TAB TABLET PO (10:02)
[2017-07-25] MEDS ORDERED: NON FORMULARY ITEM (Adalimumab (Humira) 1 SYR) SQ (09:00)
[2017-08-10] MEDS ORDERED: CYANOCOBALAMIN (VITAMIN B-12) 1,000 MCG/ML VIAL IM (09:00)
== END 2017-07-13 11:00 | disposition home or self-care (01) | DRG 186 ==
LOC: ER 13:17 → 5 SOUTH 18:22
PROC: 0W993ZZ Drainage of Right Pleural Cavity, Percutaneous Approach (ICD-10-PCS; principal; 2017-07-11)
DX: J90 Pleural effusion, not elsewhere classified (principal); J18.9 Pneumonia, unspecified organism; D61.818 Other pancytopenia; K50.90 Crohn's disease, unspecified, without complications; E66.01 Morbid (severe) obesity due to excess calories; E11.9 Type 2 diabetes mellitus without complications; E78.00 Pure hypercholesterolemia, unspecified; E78.5 Hyperlipidemia, unspecified; F17.290 Nicotine dependence, other tobacco product, uncomplicated; G47.33 Obstructive sleep apnea (adult) (pediatric); I10 Essential (primary) hypertension; I25.10 Atherosclerotic heart disease of native coronary artery without angina pectoris; N40.0 Benign prostatic hyperplasia without lower urinary tract symptoms; Z82.49 Family history of ischemic heart disease and other diseases of the circulatory system; Z85.828 Personal history of other malignant neoplasm of skin; Z90.49 Acquired absence of other specified parts of digestive tract; Z95.5 Presence of coronary angioplasty implant and graft; M19.90 Unspecified osteoarthritis, unspecified site; Z88.8 Allergy status to other drugs, medicaments and biological substances
CPT/HCPCS: 32555; 36415; 71045; 71046; 71275; 80048; 80053; 81001; 82945; 82962; 83615; 83986; 84145; 84157; 84484; 85025; 85610; 85730; 87071; 87075; 87205; 89050; 93005; 99285; 99285-25; J1815; J2270; J2543

== ENCOUNTER → 2018-02-19 | Outpatient (CLI) | payer MEDICARE ==
[2017-12-26 08:27] VITALS: BP 156/65
[~2018-02-19] MED LIST changes: -AMLO5TAB2 PO; +AMLO5TAB7 PO; +APIX5TAB PO; +CLOP75TA PO; +CYAN10002 IJ; +DICL100G18 TP; +FERR325T14 PO; +GABA-689 PO; +HYDR-2765 PO; -HYDR-2766 PO; +HYDR-2769 PO; +LEVO750T31 PO; +LIDO700A39 TP; +LISI-334 PO; +LOPE2CAP PO; -METF-620 PO; +METF10007 PO; +METF500T16 PO; +METO100T7 PO; +METO50TA6 PO; -OXYC15TA60 PO; +OXYC15TA61 PO; +SPIR25TA PO; +TORS20TA PO
--- NOTE | 2018-02-19 15:46 | KCIC ---
3 view lumbar spine 02/19/2018 CLINICAL INDICATION: Status post spinal fusion, follow-up. COMPARISON: Lumbar radiograph 04/23/2017, 02/07/2017. FINDINGS: Postsurgical changes of L4 laminectomy and posterior spinal fixation L1-L5 with bilateral vertical rods and pedicle screws L1, L2, L4-L5. There is increased lucency surrounding the distal aspect of the right L1 pedicular screw with significant interval increase in retraction. There is mild retraction of the right L2 pedicle screw. No significant change in moderate to severe L3 compression deformity with anterior displacement of the fracture fragments, however increase in the sclerosis throughout the vertebra and posterior elements. Stable mild anterior compression deformities at T11 and T12. Multilevel lumbar spondylosis similar to prior examination. Diffuse bony demineralization. Calcified atheromatous plaque of the abdominal aorta. IMPRESSION: 1. Continued retraction of the right L1 and L2 pedicular screws with significant lucency adjacent to the right L1 screw concerning for loosening, which may be aseptic or infectious related. 2. Persistent moderate L3 compression deformity with increase in the degree of sclerosis. 3. Multilevel lumbar spondylosis. 4. Osteopenia. Electronically signed by: Isidro Tomlin MD (02/19/2018 3:42 PM) [id number]
== END | disposition home or self-care (01) ==
LOC: KCIC 10:01
PROVIDERS: ATTEND Neurological Surgery
DX: M47.896 Other spondylosis, lumbar region (principal); M85.88 Other specified disorders of bone density and structure, other site; G95.29 Other cord compression; M43.8X6 Other specified deforming dorsopathies, lumbar region; I13.0 Hypertensive heart and chronic kidney disease with heart failure and stage 1 through stage 4 chronic kidney disease, or unspecified chronic kidney disease; I50.33 Acute on chronic diastolic (congestive) heart failure; E11.22 Type 2 diabetes mellitus with diabetic chronic kidney disease; N18.3 Chronic kidney disease, stage 3 (moderate); I25.10 Atherosclerotic heart disease of native coronary artery without angina pectoris; Z79.899 Other long term (current) drug therapy; Z98.1 Arthrodesis status
CPT/HCPCS: 72100

== ENCOUNTER → 2018-03-25 | Outpatient (CLI) | payer MEDICARE ==
[2017-12-26 08:27] VITALS: BP 156/65
--- NOTE | 2018-03-25 11:19 | RAD ---
MR#: [id number] Date of Study: 03/25/2018 Ordering Physician: JUNE RODRIGUES, Referring Physician: JUNE RODRIGUES, Tech: HETAL Blanco, RDMS, RTR APPROVED REPORT Patient Location: OUT-PATIENT Laterality:Bilateral Indications AFIB, HTN, HX OF TOTAL LEFT ICA OCCULSION PER PATIENT Doppler Spectral Velocity Analysis Right Left pCCA 120/24 cm/spCCA 75/9 cm/s mCCA 80/18 cm/smCCA 87/11 cm/s dCCA 74/21 cm/sdCCA 75/8 cm/s ECA 165/ cm/sECA 163/ cm/s pICA 113/33 cm/spICA 0/0 cm/s Alessandra 92/26 cm/smICA 0/0 cm/s dICA 67/23 cm/sdICA 0/0 cm/s ICA/CCA 0.94ICA/CCA 0.00 Findings On the right grayscale images of the common carotid and carotid bulbs reveal moderate obstructive eh que of approximately 50%. By velocity criteria there is overall 0 to less than 50% stenosis. The inte rnal carotid artery on the right side does not have any significant obstructive disease. The vertebra l velocity is antegrade. The left internal carotid artery is occluded. No focal high-grade stenosis is identified in the left common carotid artery. The bilateral external carotid arteries demonstrate elevated velocities but no focal obstruction is s een. The left vertebral artery velocities also antegrade. Critical Notification Critical Value: No <Conclusion> 1. 100% left internal carotid artery occlusion. 2. Antegrade vertebral velocities bilaterally. Signed by : Prem Leon, Electronically Approved : 03/25/2018 11:16:53
== END | disposition home or self-care (01) ==
LOC: ECHO 07:46
PROVIDERS: ATTEND Internal Medicine Cardiovascular Disease
DX: I65.23 Occlusion and stenosis of bilateral carotid arteries (principal); I48.2 Chronic atrial fibrillation; I10 Essential (primary) hypertension
CPT/HCPCS: 93880

== ENCOUNTER 2018-10-10 10:07 | Inpatient (IN) | payer MEDICARE, OTHER ==
[~2018-10-10] VITALS: Ht 177.8 cm; Wt 103.0 kg
[~2018-10-10 10:07] MED LIST changes: +AMLO5TAB10 PO; -AMLO5TAB7 PO; -GABA600T2 PO; +GABA600T7 PO; +LIDO700A21 TP; -LIDO700A39 TP
--- NOTE | 2018-10-10 10:21 | PHYS DOC ---
Past Medical History Past Medical History: CAD, Diabetes-Type II, High Cholesterol, Heart Disease, Pneumonia, Other Additional Past Medical Histor: Crohns,sleep apnea,PLEURAL EFFUSIONS Past Surgical History: Angioplasty, Appendectomy, Cholecystectomy Additional Past Surgical Histo: bowel resection,LAMINECTOMY,thoracentesis Alcohol Use: Rarely Drug Use: None Adult General Chief Complaint Chief Complaint: CHEST PAIN HPI HPI Patient is a 72 year old male presented ER today for evaluation of substernal chest pain that radiated to his left jaw about 1 hour ago. Patient said he had previous heart attack, and the pain today similar to his previous heart attack. He said he had an episode like this yesterday but it went away. Patient did not seek medical attention again. Patient has history of diabetic, hypertension, coronary artery disease. Patient is on ELiquis. Patient denied any fever or cough. Review of Systems Review of Systems Constitutional: Denies fever or chills [] Eyes: Denies change in visual acuity, redness, or eye pain [] HENT: Denies nasal congestion or sore throat [] Respiratory: Denies cough or shortness of breath [] Cardiovascular: No additional information not addressed in HPI [] GI: Denies abdominal pain, nausea, vomiting, bloody stools or diarrhea [] : Denies dysuria or hematuria [] Musculoskeletal: Denies back pain or joint pain [] Integument: Denies rash or skin lesions [] Neurologic: Denies headache, focal weakness or sensory changes [] Endocrine: Denies polyuria or polydipsia [] All other systems were reviewed and found to be within normal limits, except as documented in this note. Current Medications Current Medications Current Medications Medications (Trade) Dose Ordered Sig/Jose Start Time Stop Time Status Last Admin Dose Admin Aspirin (Charmaine Aspirin) 325 mg 1X ONCE 10/10/18 10:30 10/10/18 10:31 DC 10/10/18 10:30 325 MG Nitroglycerin (Nitrostat) 0.4 mg PRN Q5MIN PRN 10/10/18 10:30 10/10/18 10:32 0.4 MG Allergies Allergies Allergies Coded Allergies Type Severity Reaction Last Updated Verified amlodipine Allergy Intermediate Swelling 07/10/17 Yes azathioprine Allergy Intermediate n/v 01/24/17 Yes furosemide Allergy Intermediate "i dont know" 01/15/17 Yes infliximab Allergy Intermediate rash 01/15/17 Yes Physical Exam Physical Exam Constitutional: Well developed, well nourished, IN acute distress DUE TO PAIN, non-toxic appearance. [] HENT: Normocephalic, atraumatic, bilateral external ears normal, oropharynx moist, no oral exudates, nose normal. [] Eyes: PERRLA, EOMI, conjunctiva normal, no discharge. [] Neck: Normal range of motion, no tenderness, supple, no stridor. [] Cardiovascular:Heart rate regular rhythm, no murmur [] Lungs & Thorax: Bilateral breath sounds clear to auscultation [] Abdomen: Bowel sounds normal, soft, no tenderness, no masses, no pulsatile masses. [] Skin: Pale and diaphoresis. Back: No tenderness, no CVA tenderness. [] Extremities: No tenderness, no cyanosis, no clubbing, ROM intact, no edema. [] Neurologic: Alert and oriented X 3, normal motor function, normal sensory function, no focal deficits noted. [] Psychologic: Affect normal, judgement normal, mood normal. [] Current Patient Data Vital Signs Vital Signs Date Time Temp Pulse Resp B/P (MAP) Pulse Ox O2 Delivery O2 Flow Rate FiO2 10/10/18 10:32 71 148/67 10/10/18 10:20 98.9 16 99 Room Air 98.9 Lab Values Laboratory Tests Test 10/10/18 10:43 White Blood Count 3.3 x10^3/uL (4.0-11.0) L Red Blood Count 3.08 x10^6/uL (4.30-5.70) L Hemoglobin 10.4 g/dL (13.0-17.5) L Hematocrit 31.8 % (39.0-53.0) L Mean Corpuscular Volume 103 fL (79-100) H Mean Corpuscular Hemoglobin 34 pg (25-35) Mean Corpuscular Hemoglobin Concent 33 g/dL (31-37) Red Cell Distribution Width 15.0 % (11.5-14.5) H Platelet Count 144 x10^3/uL (140-400) Neutrophils (%) (Auto) 63 % (31-73) Lymphocytes (%) (Auto) 25 % (24-48) Monocytes (%) (Auto) 5 % (0-9) Eosinophils (%) (Auto) 6 % (0-3) H Basophils (%) (Auto) 1 % (0-3) Neutrophils # (Auto) 2.1 x10^3/uL (1.8-7.7) Lymphocytes # (Auto) 0.8 x10^3/uL (1.0-4.8) L Monocytes # (Auto) 0.2 x10^3/uL (0.0-1.1) Eosinophils # (Auto) 0.2 x10^3/uL (0.0-0.7) Basophils # (Auto) 0.0 x10^3/uL (0.0-0.2) Prothrombin Time 18.5 SEC (11.7-14.0) H Prothrombin Time INR 1.6 (0.8-1.1) H PTT 43 SEC (24-38) H Sodium Level 138 mmol/L (136-145) Potassium Level 5.2 mmol/L (3.5-5.1) H Chloride Level 106 mmol/L (98-107) Carbon Dioxide Level 17 mmol/L (21-32) L Anion Gap 15 (6-14) H Blood Urea Nitrogen 35 mg/dL (8-26) H Creatinine 2.2 mg/dL (0.7-1.3) H Estimated GFR (Cockcroft-Gault) 29.6 BUN/Creatinine Ratio 16 (6-20) Glucose Level 89 mg/dL (70-99) Calcium Level 8.9 mg/dL (8.5-10.1) Magnesium Level 1.7 mg/dL (1.8-2.4) L Total Bilirubin 0.6 mg/dL (0.2-1.0) Aspartate Amino Transferase (AST) 27 U/L (15-37) Alanine Aminotransferase (ALT) 37 U/L (16-63) Alkaline Phosphatase 110 U/L (46-116) Creatine Kinase 56 U/L (39-308) Creatine Kinase MB (Mass) 3.1 ng/mL (0.0-3.6) Creatine Kinase MB Relative Index % (0-4) Troponin I Quantitative < 0.017 ng/mL (0.000-0.055) RB-Jwi-[id number]-Type Natriuretic Peptide 3247 pg/mL (0-124) H Total Protein 7.9 g/dL (6.4-8.2) Albumin 3.9 g/dL (3.4-5.0) Albumin/Globulin Ratio 1.0 (1.0-1.7) Triglycerides Level 53 mg/dL (0-150) Cholesterol Level 130 mg/dL (0-200) LDL Cholesterol, Calculated 23 mg/dL (0-100) VLDL Cholesterol, Calculated 11 mg/dL (0-40) Non-HDL Cholesterol Calculated 34 mg/dL (0-129) HDL Cholesterol 96 mg/dL (40-60) H Cholesterol/HDL Ratio 1.4 Lipase 74 U/L (73-393) Laboratory Tests 10/10/18 10:43 Laboratory Tests 10/10/18 10:43 EKG EKG EKG was done, rate of 87 BPM, ATRIAL FIB, NO STEMI Radiology/Procedures Radiology/Procedures [facility] [address] [place] [address] IMAGING REPORT Signed PATIENT: JESSE MCGEE ACCOUNT: [id number] : 1945 LOCATION: ER AGE: 72 SEX: M EXAM STATUS: REG ER ORD. PHYSICIAN: MADELYN SHINE DO REASON: chest pain PROCEDURE: PORTABLE CHEST 1V EXAM: CHEST 1 VIEW History: Chest pain COMPARISON: 12/22/2017 TECHNIQUE: Single portable radiograph of the chest FINDINGS: Mild cardiomegaly. Mild prominent bilateral interstitial lung markings likely chronic interstitial changes similar to prior exam. The costophrenic sulci are clear and well demarcated. IMPRESSION: No radiographic evidence of an acute cardiopulmonary process. Electronically signed by: Aime Carolina MD (10/10/2018 10:33 AM) [facility] DICTATED and SIGNED BY: AIME CAROLINA MD DATE: 10/10/18 1033 Course & Med Decision Making Course & Med Decision Making Pertinent Labs and Imaging studies reviewed. (See chart for details) [] Dragon Disclaimer Dragon Disclaimer This electronic medical record was generated, in whole or in part, using a voice recognition dictation system. Departure Departure Impression: Primary Impression: Chest pain Additional Impression: Renal failure Disposition: 09 ADMITTED INPATIENT Admitting Physician: HIMS Condition: STABLE Referrals: JINNY ARTIS MD (PCP) Problem Qualifiers MADELYN SHINE DO Oct 10, 2018 10:21
[2018-10-10] MEDS ORDERED: NITROGLYCERIN SUBLINGUAL 0.4 MG BOTTLE OF 25. SL PRN (10:30)
[2018-10-10] MEDS ORDERED: ASPIRIN 325 MG TABLET PO ONE (10:30)
--- NOTE | 2018-10-10 10:36 | RAD ---
EXAM: CHEST 1 VIEW History: Chest pain COMPARISON: 12/22/2017 TECHNIQUE: Single portable radiograph of the chest FINDINGS: Mild cardiomegaly. Mild prominent bilateral interstitial lung markings likely chronic interstitial changes similar to prior exam. The costophrenic sulci are clear and well demarcated. IMPRESSION: No radiographic evidence of an acute cardiopulmonary process. Electronically signed by: Aime Carolina MD (10/10/2018 10:33 AM) [place] [id number]
--- NOTE | 2018-10-10 10:59 | PDOC1 ---
History and Physical Date of Admission Date of Admission DATE: 10/10/18 TIME: 10:53 Identification/Chief Complaint Chief Complaint Chest pain Source Source: Chart review, Patient History of Present Illness History of Present Illness Mr Lee is a 72 year old male [employer] [place] w/ PMHx diabetes type 2, hypertension, CAD, atrial fibrillation, pleural effusion with thoracentesis in July 2017, Crohns, sleep apnea who presented ER today for evaluation of substernal chest pain that radiated to his left jaw about 1 hour prior to ED arrival. He notes the pain today is similar to his previous heart attack. He benson d he had an episode like this yesterday but it went away. He is on imuran for Crohns, he is also taking eliquis for afib. EKG - Afib. Initial troponin negative. Cr 2.2. Potassium 5.2 Past Medical History Cardiovascular: CAD, HTN, Hyperlipidemia Pulmonary: Pneumonia, Other CENTRAL NERVOUS SYSTEM: Other GI: Inflam bowel disease Heme/Onc: Cancer Psych: No pertinent hx Musculoskeletal: Osteoarthritis Rheumatologic: No pertinent hx Infectious disease: No pertinent hx Renal/: Benign prostatic enlarg. Endocrine: Diabetes Past Surgical History Past Surgical History: Appendectomy, Cholecystectomy, Colon Resection, Other Family History Family History: Coronary Artery Disease Social History ALCOHOL: other Drugs: None Current Problem List Problem List Problems Medical Problems: (1) Chest pain Status: Acute Current Medications Current Medications Current Medications Aspirin (Charmaine Aspirin) 325 mg 1X ONCE PO Last administered on 10/10/18at 10:30; Start 10/10/18 at 10:30; Stop 10/10/18 at 10:31; Status DC Nitroglycerin (Nitrostat) 0.4 mg PRN Q5MIN PRN SL CHEST PAIN Last administered on 10/10/18at 10:32; Start 10/10/18 at 10:30 Active Scripts Active Reported Lisinopril 20 Mg Tablet 1 Tab PO DAILY Eliquis (Apixaban) 5 Mg Tablet 5 Mg PO BID Clopidogrel (Clopidogrel Bisulfate) 75 Mg Tablet 1 Tab PO DAILY Metformin Hcl 500 Mg Tablet 500 Mg PO BIDWMEALS Ferrous Sulfate 325 Mg Tablet 1 Tab PO BID Cyanocobalamin Injection (Cyanocobalamin (Vitamin B-12)) 1,000 Mcg/1 Ml Vial 1,000 Mcg IJ QMONTH Aspirin 325 Mg Tablet 1 Tab PO HS Hydrocodone-Apap 7.5-325 (Hydrocodone Bit/Acetaminophen) 1 Each Tablet 1 Tab PO PRN Q6HRS PRN Gabapentin 400 Mg Capsule 1,200 Mg PO BID Vitamin D3 (Cholecalciferol (Vitamin D3)) 1,000 Unit Tablet 2,000 Unit PO Humira (Adalimumab) 40 Mg/0.8 Ml Pen.ij.kit 1 Syr SQ Q2WKS Omeprazole 40 Mg Capsule.dr 1 Cap PO DAILY Cholestyramine Packet (Cholestyramine (With Sugar)) 4 Gm Powd.pack 4 Gm PO Folic Acid 1 Mg Tablet 1 Tab PO DAILY Atorvastatin Calcium 40 Mg Tablet 1 Tab PO HS Allergies Allergies: Coded Allergies: amlodipine (Verified Allergy, Intermediate, Swelling, 07/10/17) azathioprine (Verified Allergy, Intermediate, n/v, 01/24/17) furosemide (Verified Allergy, Intermediate, "i dont know" , 01/15/17) infliximab (Verified Allergy, Intermediate, rash, 01/15/17) ROS General: YES: Fatigue, Malaise; No: Chills, Night Sweats, Appetite, Other PSYCHOLOGICAL ROS: No: Anxiety, Behavioral Disorder, Concentration difficultie, Decreased libido, Depression, Disorientation, Hallucinations, Hostility, Irritablity, Memory difficulties, Mood Swings, Obsessive thoughts, Physical abuse, Sexual abuse, Sleep disturbances, Suicidal ideation, Other Eyes: No Blurry vision, No Decreased vision, No Double vision, No Dry eyes, No Excessive tearing, No Eye Pain, No Itchy Eyes, No Loss of vision, No Photopho ari, No Scotomata, No Uses contacts, No Uses glasses, No Other HEENT: No: Heacaches, Visual Changes, Hearing change, Nasal congestion, Nasal discharge, Oral lesions, Sinus pain, Sore Throat, Epistaxis, Sneezing, Snoring, Tinnitus, Vertigo, Vocal changes, Other ALLERGY AND IMMUNOLOGY: No: Hives, Insect Bite Sensitivity, Itchy/Watery Eyes, Nasal Congestion, Post Nasal Drip, Seasonal Allergies, Other Hematological and Lymphatic: No: Bleeding Problems, Blood Clots, Blood Transfusions, Brusing, Night Sweats, Pallor, Swollen Lymph Nodes, Other ENDOCRINE: No: Breast Changes, Galactorrhea, Hair Pattern Changes, Hot Flashes, Malaise/lethargy, Mood Swings, Palpitations, Polydipsia/polyuria, Skin Changes, Temperature Intolerance, Unexpected Weight Changes, Other Breast: No New/Changing Breast Lumps, No Nipple changes, No Nipple discharge, No Other Respiratory: YES: Shortness of breath; No: Cough, Hemoptysis, Orthopnea, Pleuritic Pain, SOB with excertion, Sputum Changes, Stridor, Tachypnea, Wheezing, Other Cardiovascular: yes Chest Pain; No Palpitations, No Orthopnea, No Paroxysmal Noc. Dyspnea, No Edema, No Lt Headedness, No Other Gastrointestinal: No Nausea, No Vomiting, No Abdominal Pain, No Diarrhea, No Constipation, No Melena, No Hematochezia, No Other Genitourinary: No Dysuria, No Frequency, No Incontinence, No Hematuria, No Retention, No Discharge, No Urgency, No Pain, No Flank Pain, No Other, No , No , No , No , No , No , No Musculoskeletal: No Gait Disturbance, No Joint Pain, No Joint Stiffness, No Joint Swelling, No Muscle Pain, No Muscular Weakness, No Pain In:, No Swelling In:, No Other Neurological: No Behavorial Changes, No Bowel/Bladder ControlChng, No Confusion, No Dizziness, No Gait Disturbance, No Headaches, No 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 moist/pink Lungs: Clear to auscultation, Normal air movement Heart: S1S2, no gallops, no murmurs, irregularly irregular Abdomen: Normal bowel sounds, Soft, No tenderness, No hepatosplenomegaly, No ma sses Rectal Exam: not examined Extremities: No clubbing, No cyanosis, No edema, Normal pulses, No tenderness/swelling Skin: No rashes, No breakdown, No significant lesion Neuro: Normal gait, Normal speech, Strength at 5/5 X4 ext, Normal tone, Sensation intact, Cranial nerves 3-12 NL, Reflexes 2+ Psych/Mental Status: Mental status NL, Mood NL Vitals Vitals Vital Signs Date Time Temp Pulse Resp B/P (MAP) Pulse Ox O2 Delivery O2 Flow Rate FiO2 10/10/18 10:32 71 148/67 10/10/18 10:20 98.9 16 99 Room Air 98.9 Images Images CXR - No radiographic evidence of an acute cardiopulmonary process. VTE Prophylaxis Ordered VTE Prophylaxis Devices: Yes VTE Pharmacological Prophylaxi: Yes Assessment/Plan Assessment/Plan A/P: Chest pain - high risk ACS. ASA, BB, consulted cardiology. He has had multiple prior stents Atrial fibrillation - on eliquis Diabetes type 2 - basal bolus plus regimen in house. Hold metformin permanently based on renal function Hypertension - Cont meds CAD - s/p MELODY in 2018 and prior as well Pleural effusion with thoracentesis in July 2017 - CXR clear today Crohns - stable on imuran Sleep apnea - stable PAD - carotid disease known ANDREINA on CKD - likely vasomotor nephropathy 2/2 poor PO intake. Baseline Cr 1.5, now 2.2 Anemia - likely from chronic disease, will cont iron and B12 Leukopenia - will monitor as he is immunosuppressed for crohns Hypomagnesemia - replace 1g Hyperkalemia - will hydrate FEN - ADA cardiac diet PPX - on eliquis, will hold tonight FULL CODE Inpatient for ACS, likely 2 midnights. AZUCENA VENTURA MD Oct 10, 2018 10:59
[2018-10-10] MEDS ORDERED: ONDANSETRON PF 4 MG/2 ML VIAL. IV PRN (11:00)
[2018-10-10 11:01] LABS: BASO % 1 % (0-3); EOS # 0.2 x10^3/uL (0.0-0.7); EOS % 6 % (0-3); HEMATOCRIT 31.8 % (39.0-53.0); HEMOGLOBIN 10.4 g/dL (13.0-17.5); LYMPH # 0.8 x10^3/uL (1.0-4.8); LYMPH % 25 % (24-48); MEAN CORPUSCULAR HEMOGLOBIN 34 pg (25-35); MEAN CORPUSCULAR HGB CONC 33 g/dL (31-37); MEAN CORPUSCULAR VOLUME 103 fL (79-100); MONO # 0.2 x10^3/uL (0.0-1.1); MONO % 5 % (0-9); NEUT # 2.1 x10^3/uL (1.8-7.7); NEUT % 63 % (31-73); PLATELET COUNT 144 x10^3/uL (140-400); RED BLOOD COUNT 3.08 x10^6/uL (4.30-5.70); WHITE BLOOD COUNT 3.3 x10^3/uL (4.0-11.0)
[2018-10-10 11:05] LABS: PROTHROMBIN TIME PATIENT 18.5 SEC (11.7-14.0)
--- NOTE | 2018-10-10 11:06 | EKG ---
[facility] [address] [place] [address] Test Date: 2018-10-10 Test Time: 10:11:06 Pat Name: JESSE MCGEE Department: Room: Gender: M Technical Communicator: : 1945 Requested By: MADELYN SHINE Order Number: [id number] Reading MD: Measurements Intervals [place] Rate: 87 P: HI: QRS: -35 QRSD: 96 T: 84 QT: 344 QTc: 414 Interpretive Statements IRREGULAR RHYTHM, NO P-WAVE FOUND ABNORMAL LEFT AXIS DEVIATION R-S TRANSITION ZONE IN V LEADS DISPLACED TO THE RIGHT LEFT ANTERIOR FASCICULAR BLOCK T ABNORMALITY IN HIGH LATERAL LEADS ABNORMAL ECG RI6.01 No previous ECG available for comparison
[2018-10-10 11:16] LABS: CALCIUM 8.9 mg/dL (8.5-10.1); CREATININE 2.2 mg/dL (0.7-1.3); GFR 29.6; POTASSIUM 5.2 mmol/L (3.5-5.1)
[2018-10-10 11:19] LABS: CHOLESTEROL/HDL RATIO 1.4
[2018-10-10 11:31] LABS: ALBUMIN 3.9 g/dL (3.4-5.0); MAGNESIUM 1.7 mg/dL (1.8-2.4); TOTAL BILIRUBIN 0.6 mg/dL (0.2-1.0); TOTAL PROTEIN 7.9 g/dL (6.4-8.2)
[2018-10-10 11:40] LABS: CREATINE KINASE 56 U/L (39-308)
[2018-10-10 12:20] VITALS: BP 144/68
[2018-10-10] MEDS ORDERED: IV NORMAL SALINE 1000ML BAG 1,000 ML IV ONE (13:00)
--- NOTE | 2018-10-10 13:02 | PDOC2 ---
CARDIAC CONSULT DATE OF CONSULT Date of Consult DATE: 10/10/18 TIME: 12:38 REASON FOR CONSULT Reason for Consult: Chest pain REFERRING PHYSICIAN Referring Physician: Carlyle SOURCE Source: Chart review, Patient HISTORY OF PRESENT ILLNESS HISTORY OF PRESENT ILLNESS This is a pleasant 72 yo male admitted for complains of chest pain. Reports no falls or any injury. Last week he was trimming trees while on the groun no lad tommy use and started having chest pain after at least 20 minutes of activity with SOA. No further discomfort till yesterday. He was at a naturalization ceremony at [place] and was walking a short distance when he started having mid chest tightness that was similar when he had his heartattack. Positive for nausea and left arm discomfort. He was GORE and his symptoms lasted about 30-45 minutes. He did not go to ED yesterday since his pain subsided and he did not want to miss the ceremony of his daughter in law. He was dizzy, felt palpitations at that time. Also he has renal insufficiency and yet to be seen by a clay artist to which he was referred and was recently taken off metformin. PAST MEDICAL HISTORY Past Medical History Cardiovascular: CAD, HTN, Hyperlipidemia, AFIB Pulmonary: Pneumonia, Other CENTRAL NERVOUS SYSTEM: Other GI: Chrons Heme/Onc: Cancer Psych: No pertinent hx Musculoskeletal: Osteoarthritis Rheumatologic: No pertinent hx Infectious disease: No pertinent hx Renal/: Benign prostatic enlarg, CKD Endocrine: Diabetes PAST SURGICAL HISTORY Past Surgical History Multiple PCIs, Appendectomy, Cholecystectomy, Colon Resection FAMILY HISTORY Family History: Coronary Artery Disease SOCIAL HISTORY Smoke: No ALCOHOL: none Drugs: None Lives: with Family CURRENT MEDICATIONS CURRENT MEDICATIONS Current Medications Medications (Trade) Dose Ordered Sig/Jose Route PRN Reason Start Time Stop Time Status Last Admin Dose Admin Aspirin (Charmaine Aspirin) 325 mg 1X ONCE PO 10/10/18 10:30 10/10/18 10:31 DC 10/10/18 10:30 Nitroglycerin (Nitrostat) 0.4 mg PRN Q5MIN PRN SL CHEST PAIN 10/10/18 10:30 10/10/18 10:32 ALLERGIES ALLERGIES: Coded Allergies: amlodipine (Verified Allergy, Intermediate, Swelling, 07/10/17) azathioprine (Verified Allergy, Intermediate, n/v, 01/24/17) furosemide (Verified Allergy, Intermediate, "i dont know" , 01/15/17) infliximab (Verified Allergy, Intermediate, rash, 01/15/17) ROS Review of System 14 point ROS evaluated with pertinent positives noted per HPI PHYSICAL EXAM General: Alert, Oriented X3, Cooperative, No acute distress HEENT: Atraumatic, Mucous membr. moist/pink Lungs: Clear to auscultation, Normal air movement Heart: Normal S1, Normal S2, Other (S4/; AFIB; 5/6 systolic murmur loudest to LESLIE border) Abdomen: Soft, No tenderness, Other (ventral hernia) Extremities: No cyanosis, Other (Trace LE edema) Skin: No breakdown, No significant lesion Neuro: Normal speech, Sensation intact Psych/Mental Status: Mental status NL, Mood NL MUSCULOSKELETAL: Osteoarthritic changes both hands VITALS/I&O VITALS/I&O: Vital Signs Date Time Temp Pulse Resp B/P (MAP) Pulse Ox O2 Delivery O2 Flow Rate FiO2 10/10/18 11:13 64 15 136/63 (87) 96 Room Air 10/10/18 10:20 98.9 98.9 LABS Lab: Laboratory Tests Test 10/10/18 10:43 White Blood Count 3.3 x10^3/uL (4.0-11.0) L Red Blood Count 3.08 x10^6/uL (4.30-5.70) L Hemoglobin 10.4 g/dL (13.0-17.5) L Hematocrit 31.8 % (39.0-53.0) L Mean Corpuscular Volume 103 fL (79-100) H Mean Corpuscular Hemoglobin 34 pg (25-35) Mean Corpuscular Hemoglobin Concent 33 g/dL (31-37) Red Cell Distribution Width 15.0 % (11.5-14.5) H Platelet Count 144 x10^3/uL (140-400) Neutrophils (%) (Auto) 63 % (31-73) Lymphocytes (%) (Auto) 25 % (24-48) Monocytes (%) (Auto) 5 % (0-9) Eosinophils (%) (Auto) 6 % (0-3) H Basophils (%) (Auto) 1 % (0-3) Neutrophils # (Auto) 2.1 x10^3/uL (1.8-7.7) Lymphocytes # (Auto) 0.8 x10^3/uL (1.0-4.8) L Monocytes # (Auto) 0.2 x10^3/uL (0.0-1.1) Eosinophils # (Auto) 0.2 x10^3/uL (0.0-0.7) Basophils # (Auto) 0.0 x10^3/uL (0.0-0.2) Prothrombin Time 18.5 SEC (11.7-14.0) H Prothrombin Time INR 1.6 (0.8-1.1) H PTT 43 SEC (24-38) H Sodium Level 138 mmol/L (136-145) Potassium Level 5.2 mmol/L (3.5-5.1) H Chloride Level 106 mmol/L (98-107) Carbon Dioxide Level 17 mmol/L (21-32) L Anion Gap 15 (6-14) H Blood Urea Nitrogen 35 mg/dL (8-26) H Creatinine 2.2 mg/dL (0.7-1.3) H Estimated GFR (Cockcroft-Gault) 29.6 BUN/Creatinine Ratio 16 (6-20) Glucose Level 89 mg/dL (70-99) Calcium Level 8.9 mg/dL (8.5-10.1) Magnesium Level 1.7 mg/dL (1.8-2.4) L Total Bilirubin 0.6 mg/dL (0.2-1.0) Aspartate Amino Transferase (AST) 27 U/L (15-37) Alanine Aminotransferase (ALT) 37 U/L (16-63) Alkaline Phosphatase 110 U/L (46-116) Creatine Kinase 56 U/L (39-308) Creatine Kinase MB (Mass) 3.1 ng/mL (0.0-3.6) Creatine Kinase MB Relative Index % (0-4) Troponin I Quantitative < 0.017 ng/mL (0.000-0.055) JJ-Bfg-Q-Type Natriuretic Peptide 3247 pg/mL (0-124) H Total Protein 7.9 g/dL (6.4-8.2) Albumin 3.9 g/dL (3.4-5.0) Albumin/Globulin Ratio 1.0 (1.0-1.7) Triglycerides Level 53 mg/dL (0-150) Cholesterol Level 130 mg/dL (0-200) LDL Cholesterol, Calculated 23 mg/dL (0-100) VLDL Cholesterol, Calculated 11 mg/dL (0-40) Non-HDL Cholesterol Calculated 34 mg/dL (0-129) HDL Cholesterol 96 mg/dL (40-60) H Cholesterol/HDL Ratio 1.4 Lipase 74 U/L (73-393) Laboratory Tests 10/10/18 10:43 Laboratory Tests 10/10/18 10:43 ECHOCARDIOGRAM ECHOCARDIOGRAM <Conclusion> The left ventricle is normal size. The left ventricular systolic function is normal and the ejection fraction is within normal range. The Ejection Fraction is 60-65%. There is mild concentric left ventricular hypertrophy. The aortic valve is moderate to severely thickened. Dopple and Color Flow reveal a peak gradient of 33.7 mmHg, a mean gradient of 21.2 mmHg and an PAO of 1.18. Aortic valve has moderate to moderately severe stenosis. Doppler and Color Flow revealed no significant aortic regurgitation. Doppler and Color-flow revealed trace to mild mitral regurgitation. Doppler and Color Flow revealed mild tricuspid regurgitation The PA pressure was estimated at 48 mmHg. DATE: 12/24/17 1203 HEART CATH HEART CATH Conclusion 1. 90% calcified stenosis involving the ostial and proximal segments of the codominant left circumflex artery. The previously placed stents in the first and second obtuse marginal branches of left circumflex artery and the proximal and the mid to distal segments of the left anterior descending artery were patent. 2. Successful complex PCI/drug eluting stents placement to the left circumflex artery. Successful PTCA to the obtuse marginal branch. Recommendations 1. Aspirin 81 mg daily (patient on eliquis for atrial fibrillation) 2. Plavix 75 mg daily for preferably one year 3. Cardiovascular risk factor modification DATE: 12/25/17 1111 ASSESSMENT/PLAN ASSESSMENT/PLAN 1. Unstable angina: trops nml. possibly evolving EKG. Will repeat. 2. CAD s/p multiple past PCIs 3. Permanent AFIB: rate controlled 4. Moderate 5. HTN: controlled 6. DM2/HLP: recently taken off metformin 7. Crohn's Disease; chronic immunosuppression with Imuran 8. ANDREINA on CKD3: new finding as an outpt. unknown baseline, takes torsemide at home 9. Colestipol use: compliant with taking it 1 hour after other meds. Recommendations 1. Secondary prevention measures including DAPT with ASA 81mg and Plavix 2. Hold eliquis for possible LHC tomorrow pending TTE and trop trend, renal status. Last dose this AM 3. TTE, lipids, trops, repeat EKG, UA, TSH, renal sono 4. Consult nephrology. 5. No ACEI/ARB. Start IVF 6. Apparently not on BB due to bradycardia episode in the past. ADRIANNA RICE APRN Oct 10, 2018 13:02
--- NOTE | 2018-10-10 13:20 | CARD ---
MR#: [id number] Date of Study: 10/10/2018 Ordering Physician: ADRIANNA RICE, Referring Physician: AZUCENA VENTURA, Tech: Jacquelyn Deleon [facility] APPROVED REPORT EXAM: Two-dimensional and M-mode echocardiogram with Doppler and color Doppler. Other Information Quality : Good Rhythm : Atrial Fibrillation INDICATION Chest Pain 2D DIMENSIONS RVDd3.0 (2.9-3.5cm)Left Atrium(2D)4.9 (1.6-4.0cm) IVSd1.2 (0.7-1.1cm)Aortic Root(2D)3.2 (2.0-3.7cm) LVDd4.9 (3.9-5.9cm)LVOT Diameter2.3 (1.8-2.4cm) PWd1.2 (0.7-1.1cm)LVDs2.9 (2.5-4.0cm) FS (%) 30.0 %SV79.8 ml LVEF(%)60.0 (>50%) Aortic Valve AoV Peak Latrell.328.4cm/sAoV VTI61.1cm AO Peak GR.43.1mmHgLVOT Peak Latrell.95.1cm/s AO Mean GR.20mmHgAVA (VMAX)1.16cm2 PAO (VTI)1.40cm2 Mitral Valve MV E Optxojgb055.6cm/sMV DECEL HOCR591wl MV A Wxxuybze81.0cm/sE/A Ratio2.6 Tricuspid Valve TR P. Auqmczyp645yx/sRAP [id number] TR Peak Gr.29luRhVDAF250vhGm LEFT VENTRICLE The left ventricle is normal size. There is mild concentric left ventricular hypertrophy. The left ve ntricular systolic function is low normal. The Ejection Fraction is estimated at 50%. There is mild a pical hypokinesis. RIGHT VENTRICLE The right ventricle is normal size. The right ventricular systolic function is normal. ATRIA The left atrium is mildly dilated. The right atrium size is normal. The interatrial septum is intact with no evidence for an atrial septal defect or patent foramen ovale as noted on 2-D or Doppler imagi ng. AORTIC VALVE The aortic valve is severely calcified and displays decreased opening. Doppler and Color Flow reveale d no significant aortic regurgitation. Calculated aortic valve area is 1.4 cm2 with maximum pressure gradient of 44 mmHg and mean pressure gradient of 18 mmHg. Doppler and color-flow analysis and imagin g revealed moderate aortic stenosis. MITRAL VALVE The mitral valve is calcified but opens well. There is no evidence of mitral valve prolapse. There is no mitral valve stenosis. Doppler and Color-flow revealed trace to mild mitral regurgitation. TRICUSPID VALVE The tricuspid valve is normal in structure and function. Doppler and Color Flow revealed moderate to severe tricuspid regurgitation The PA pressure was estimated at >60 mmHg. There is no tricuspid valve stenosis. PULMONIC VALVE The pulmonary valve is normal in structure and function. Doppler and Color Flow revealed mild pulmoni c valvular regurgitation. There is no pulmonic valvular stenosis. GREAT VESSELS The aortic root is normal in size. The ascending aorta is normal in size. The IVC is dilated and silvestre apses <50% with inspiration. PERICARDIAL EFFUSION There is no evidence of significant pericardial effusion. Critical Notification Critical Value: No <Conclusion> The left ventricle is normal size. The left ventricular systolic function is low normal. The Ejection Fraction is estimated at 50%. There is mild apical hypokinesis. There is mild concentric left ventricular hypertrophy. Calculated aortic valve area is 1.4 cm2 with maximum pressure gradient of 44 mmHg and mean pressure g radient of 18 mmHg. Doppler and color-flow analysis and imaging revealed moderate aortic stenosis. Doppler and Color Flow revealed no significant aortic regurgitation. Doppler and Color-flow revealed trace to mild mitral regurgitation. Doppler and Color Flow revealed moderate to severe tricuspid regurgitation The PA pressure was estimated at >60 mmHg. Signed by : Cornell Balderas MD Electronically Approved : 10/10/2018 13:20:14
--- NOTE | 2018-10-10 13:43 | EKG ---
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
[2018-10-10 15:00] VITALS: BP 111/52
--- NOTE | 2018-10-10 15:07 | RAD ---
Examination: Ultrasound kidneys HISTORY: History of acute renal insufficiency COMPARISON: None available FINDINGS: The right kidney measures 9.3 x 4.8 x 4.9 cm. The left kidney measures 10.0 x 4.8 x 5.1 cm. There is a 4.1 cm exophytic cystic structure identified in the left kidney probably a cyst. The urinary bladder is mildly distended. Examination limited due to bowel gas. IMPRESSION: 1. 4.1 cm cyst left kidney. Electronically signed by: Aime Carolina MD (10/10/2018 3:04 PM) [place] [id number]
[2018-10-10] MEDS ORDERED: DEXTROSE 50% 25 GM / 50ML DISP.SYRIN. IV PRN (15:45)
[2018-10-10] MEDS: INSULIN LISPRO 300 UNITS/3 ML INSULN.PEN. SQ SCH (17:00)
[2018-10-10] MEDS: IV NORMAL SALINE 1000ML BAG 1,000 ML IV SCH (17:19)
[2018-10-10 19:37] VITALS: BP 125/59
[2018-10-10] MEDS ORDERED: LOPERAMIDE 2 MG CAPSULE PO PRN (20:15)
[2018-10-10 21:39] LABS: BILIRUBIN,URINE NEGATIVE (NEG); CLARITY,URINE CLEAR; COLOR,URINE YELLOW; NITRITE,URINE NEGATIVE (NEG); PH,URINE 5.5; PROTEIN,URINE NEGATIVE (NEG-TRACE); UROBILINOGEN,URINE 0.2 mg/dL (0.2 mg/dL)
[2018-10-10 21:52] LABS: BACTERIA,URINE 0 /HPF (0-FEW); RBC,URINE OCC /HPF (0-2); SQUAMOUS EPITHELIAL CELL,UR FEW /LPF; WBC,URINE OCC /HPF (0-4)
[2018-10-10] MEDS: ATORVASTATIN CALCIUM 40 MG TABLET. PO SCH (21:54)
[2018-10-10] MEDS: FERROUS SULFATE 325 MG TABLET. PO SCH (21:54)
[2018-10-10] MEDS: ASPIRIN 325 MG TABLET PO SCH (21:54)
[2018-10-10] MEDS: INSULIN GLARGINE 300 UNITS/3 ML INSULN.PEN. SQ SCH (21:56)
[2018-10-10 22:38] VITALS: BP 104/51
[2018-10-10] MEDS: COLESTIPOL HCL 1 GM TABLET PO SCH (23:09)
[2018-10-11] MEDS: IV NORMAL SALINE 1000ML BAG 1,000 ML IV SCH ×3 (01:45→20:54)
[2018-10-11 03:58] VITALS: BP 98/50
[2018-10-11 05:33] LABS: CALCIUM 8.2 mg/dL (8.5-10.1); CREATININE 1.9 mg/dL (0.7-1.3); MAGNESIUM 1.5 mg/dL (1.8-2.4); POTASSIUM 5.1 mmol/L (3.5-5.1)
[2018-10-11 07:00] VITALS: BP 127/66
[2018-10-11] MEDS ORDERED: MAGNESIUM SULFATE 2GM 50 ML IV ONE (08:00)
[2018-10-11] MEDS: INSULIN LISPRO 300 UNITS/3 ML INSULN.PEN. SQ SCH ×3 (08:00→17:00)
[2018-10-11] MEDS ORDERED: HEPARIN for IV BOLUS 10,000 UNIT/10 ML VIAL. IV PRN (09:15)
[2018-10-11] MEDS ORDERED: HEPARIN 25,000UTS/500ML PREMIX 500 ML IV PRN (09:30)
[2018-10-11] MEDS: CLOPIDOGREL BISULFATE 75 MG TABLET PO SCH (09:57)
[2018-10-11] MEDS: FERROUS SULFATE 325 MG TABLET. PO SCH ×2 (09:57→20:54)
[2018-10-11] MEDS: PANTOPRAZOLE 40 MG TABLET.DR. PO SCH (09:57)
[2018-10-11] MEDS: CHOLECALCIFEROL (VITAMIN D3) 1,000 UNIT TABLET PO SCH (09:57)
[2018-10-11] MEDS: FOLIC ACID 1 MG TABLET. PO SCH (09:58)
--- NOTE | 2018-10-11 10:50 | PDOC ---
CARDIO Progress Notes Date and Time Date of Service 10/11/2018 Time of Evaluation 1020 Subjective Subjective: No Chest Pain, No shortness of breath, No Palpitations Vitals Vitals Vital Signs Date Time Temp Pulse Resp B/P (MAP) Pulse Ox O2 Delivery O2 Flow Rate FiO2 10/11/18 07:00 97.7 54 18 127/66 (86) 98 Room Air 97.7 10/11/18 03:58 2.0 Weight Weight [ ] Input and Output Intake and Output Intake and Output 10/11/18 07:00 Intake Total 400 ml Output Total 0 ml Balance 400 ml Intake Oral 400 ml Output Urine Total 0 ml Laboratory Labs Laboratory Tests Test 10/10/18 13:00 10/10/18 17:34 10/10/18 17:50 10/10/18 20:38 Troponin I Quantitative 0.334 ng/mL (0.000-0.055) Glucose (Fingerstick) 102 mg/dL (70-99) 108 mg/dL (70-99) Urine Collection Type Unknown Urine Color Yellow Urine Clarity Clear Urine pH 5.5 Urine Specific [place] 1.020 Urine Protein Negative mg/dL (NEG-TRACE) Urine Glucose (UA) Negative mg/dL (NEG) Urine Ketones (Stick) Negative mg/dL (NEG) Urine Blood Negative (NEG) Urine Nitrite Negative (NEG) Urine Bilirubin Negative (NEG) Urine Urobilinogen Dipstick 0.2 mg/dL (0.2 mg/dL) Urine Leukocyte Esterase Negative (NEG) Urine RBC Occ /HPF (0-2) Urine WBC Occ /HPF (0-4) Urine Squamous Epithelial Cells Few /LPF Urine Bacteria 0 /HPF (0-FEW) Urine Mucus Slight /LPF Test 10/11/18 04:30 10/11/18 07:58 Sodium Level 138 mmol/L (136-145) Potassium Level 5.1 mmol/L (3.5-5.1) Chloride Level 107 mmol/L (98-107) Carbon Dioxide Level 18 mmol/L (21-32) Anion Gap 13 (6-14) Blood Urea Nitrogen 34 mg/dL (8-26) Creatinine 1.9 mg/dL (0.7-1.3) Estimated GFR (Cockcroft-Gault) 35.0 Glucose Level 103 mg/dL (70-99) Calcium Level 8.2 mg/dL (8.5-10.1) Magnesium Level 1.5 mg/dL (1.8-2.4) Troponin I Quantitative 1.073 ng/mL (0.000-0.055) Glucose (Fingerstick) 93 mg/dL (70-99) Physical Exam HEENT: Neck Supple W Full Motion Chest: Symmetric LUNGS: Clear to Auscultation Heart: S1S2, murmurs (5/6 systolic murmur to LLS border), irregularly irregular (AFIB) Abdomen: Soft N/T Extremities: No Calf Tenderness Neurology: alert, oriented, follow commands Assessment Assessment 1. NSTEMI: peaked trop at 1. CP free 2. CAD s/p multiple past PCIs 3. Permanent AFIB: rate controlled 4. Moderate : EF 50% with mild apical hypokinesis 5. HTN: controlled 6. DM2/HLP: recently taken off metformin 7. Crohn's Disease; chronic immunosuppression with Imuran 8. ANDREINA on CKD3: improving 9. Colestipol use: compliant with taking it 1 hour after other meds. 10. Valvular insufficiency: mild MR and mod to severe TR 11. Asymptomatic bradycardia: 40-50s Recommendations 1. Secondary prevention measures including DAPT with ASA 81mg and Plavix 2. Hold eliquis. Discussed with nephrology and given that pt is CP free will continue renal optimization over the weekend then plan for LHC on Sunday 3. No ACEI/ARB. IVF per renal. 4. No AV peter blocking agents. 5. Heparin drip. 6. Though compliant with colestipol time ingestion will likely need alternative to diminish any possibility med binding. ADRIANNA RICE SCHEDULE CLERK Oct 11, 2018 10:50
[2018-10-11 11:00] VITALS: BP 92/49
--- NOTE | 2018-10-11 11:29 | PDOC ---
[facility] PROGRESS NOTE Chief Complaint Chief Complaint Probable AMI Chest pain w/ elevated troponin Old hx of coronary disease (9 prior stents) Acute renal failure History of Present Illness History of Present Illness 10-11-18 Pt. seen and examined Chart reviewed ESTEFANY RN Vitals/I&O Vitals/I&O: Vital Signs Date Time Temp Pulse Resp B/P (MAP) Pulse Ox O2 Delivery O2 Flow Rate FiO2 10/11/18 11:00 97.9 59 18 92/49 (63) 99 Room Air 97.9 10/11/18 03:58 2.0 I & O 10/10/18 10/10/18 10/11/18 14:59 22:59 06:59 Intake Total 400 ml Output Total 0 ml Balance 400 ml Physical Exam General: Alert, Oriented X3, Cooperative, No acute distress Heart: Normal S1, Normal S2, Other (S4/; AFIB; 5/6 systolic murmur loudest to LESLIE border) Lungs: Clear, Other Abdomen: Normal bowel sounds, Soft, No tenderness, No hepatosplenomegaly, No masses Extremities: No clubbing, No cyanosis, No edema, Normal pulses, No tenderness/swelling Skin: No rashes, No breakdown, No significant lesion Labs Labs: Laboratory Tests Test 10/10/18 13:00 10/10/18 17:34 10/10/18 17:50 10/10/18 20:38 Troponin I Quantitative 0.334 ng/mL (0.000-0.055) Glucose (Fingerstick) 102 mg/dL (70-99) 108 mg/dL (70-99) Urine Collection Type Unknown Urine Color Yellow Urine Clarity Clear Urine pH 5.5 Urine Specific [place] 1.020 Urine Protein Negative mg/dL (NEG-TRACE) Urine Glucose (UA) Negative mg/dL (NEG) Urine Ketones (Stick) Negative mg/dL (NEG) Urine Blood Negative (NEG) Urine Nitrite Negative (NEG) Urine Bilirubin Negative (NEG) Urine Urobilinogen Dipstick 0.2 mg/dL (0.2 mg/dL) Urine Leukocyte Esterase Negative (NEG) Urine RBC Occ /HPF (0-2) Urine WBC Occ /HPF (0-4) Urine Squamous Epithelial Cells Few /LPF Urine Bacteria 0 /HPF (0-FEW) Urine Mucus Slight /LPF Test 10/11/18 04:30 10/11/18 07:58 Sodium Level 138 mmol/L (136-145) Potassium Level 5.1 mmol/L (3.5-5.1) Chloride Level 107 mmol/L (98-107) Carbon Dioxide Level 18 mmol/L (21-32) Anion Gap 13 (6-14) Blood Urea Nitrogen 34 mg/dL (8-26) Creatinine 1.9 mg/dL (0.7-1.3) Estimated GFR (Cockcroft-Gault) 35.0 Glucose Level 103 mg/dL (70-99) Calcium Level 8.2 mg/dL (8.5-10.1) Magnesium Level 1.5 mg/dL (1.8-2.4) Troponin I Quantitative 1.073 ng/mL (0.000-0.055) Glucose (Fingerstick) 93 mg/dL (70-99) Review of Systems Review of Systems: No headache No fever/chills Assessment and Plan Assessmemt and Plan Problems Medical Problems: (1) Chest pain Status: Acute (2) Renal failure Status: Acute Assessment: Probable AMI Chest pain w/ elevated troponin Old hx of coronary disease (9 prior stents) Acute renal failure Plan: Administer heparin drip Administer Mg IV fluids Recheck labs Await cardiac cath Home meds DVT prophylaxis Comment Review of Relevant I have reviewed the following items bernadine (where applicable) has been applied. Medications: Current Medications Medications (Trade) Dose Ordered Sig/Jose Route PRN Reason Start Time Stop Time Status Last Admin Dose Admin Aspirin (Charmaine Aspirin) 325 mg HS PO 10/10/18 21:00 10/10/18 21:54 Atorvastatin Calcium (Lipitor) 40 mg HS PO 10/10/18 21:00 10/10/18 21:54 Vitamin D (Vitamin D3) 2,000 unit DAILY PO 10/11/18 09:00 10/11/18 09:57 Clopidogrel Bisulfate (Plavix) 75 mg DAILY PO 10/11/18 09:00 10/11/18 09:57 Ferrous Sulfate (Feosol) 325 mg BID PO 10/10/18 21:00 10/11/18 09:57 Folic Acid (Folic Acid) 1 mg DAILY PO 10/11/18 09:00 10/11/18 09:58 Pantoprazole Sodium (Protonix) 40 mg DAILYAC PO 10/11/18 07:30 10/11/18 09:57 Insulin Glargine (Lantus) 4 units QHS SQ 10/10/18 21:00 10/10/18 21:56 Sodium Chloride 1,000 ml @ 100 mls/hr Q10H IV 10/10/18 15:45 10/11/18 10:23 Colestipol HCl (Colestid) 5 gm HS PO 10/10/18 21:00 10/10/18 23:09 Loperamide HCl (Imodium) 2 mg PRN Q15MIN PRN PO DIARRHEA 10/10/18 20:15 10/10/18 23:08 Magnesium Sulfate 50 ml @ 25 mls/hr 1X ONCE IV 10/11/18 08:00 10/11/18 09:59 DC 10/11/18 09:52 Heparin Sodium/ Dextrose 500 ml @ 20 mls/hr CONT PRN IV SEE I/O RECORD 10/11/18 09:30 10/11/18 11:22 Heparin Sodium (Porcine) (Heparin Sodium) 2,550 unit PRN Q6HRS PRN IV FOR UFH LEVEL LESS THAN 0.2 10/11/18 09:15 10/11/18 10:11 JESSICA RAMIREZ III DO Oct 11, 2018 11:29
--- NOTE | 2018-10-11 12:15 | PDOC2 ---
CONSULT Date of Consult Date of Consult DATE: 10/11/18 TIME: 12:11 Reason for Consult Reason for Consult: ANDREINA Referring Physician Referring Physician: LORENZO Identification/Chief Complaint Chief Complaint CHEST PAIN Source Source: Chart review, Patient History of Present Illness Reason for Visit: "This is a pleasant 72 yo male admitted for complains of chest pain. Reports no falls or any injury. Last week he was trimming trees while on the groun no ladder use and started having chest pain after at least 20 minutes of activity with SOA. No further discomfort till yesterday. He was at a naturalization ceremony at [place] and was walking a short distance when he started having mid chest tightness that was similar when he had his heartattack. Positive for nausea and left arm discomfort. He was GORE and his symptoms lasted about 30-45 minutes. He did not go to ED yesterday since his pain subsided and he did not want to miss the ceremony of his daughter in law. He was dizzy, felt palpitations at that time. Also he has renal insufficiency and yet to be seen by a virtual reality specialist to which he was referred and was recently taken off metformin." HE IS NOTED TO HAVE CKD STAGE 3 DUE TO DM II AND HTN WITH A BASELINE CR OF 1.5. NO HX. NO PROBLEMS EMPTYING HIS BLADDER Past Medical History Cardiovascular: CAD, HTN, Hyperlipidemia Pulmonary: Pneumonia, Other CENTRAL NERVOUS SYSTEM: Other GI: Inflam bowel disease Heme/Onc: Cancer Psych: No pertinent hx Musculoskeletal: Osteoarthritis Rheumatologic: No pertinent hx Infectious disease: No pertinent hx Renal/: Benign prostatic enlarg. Endocrine: Diabetes Past Surgical History Past Surgical History: Appendectomy, Cholecystectomy, Colon Resection, Other Family History Family History: Coronary Artery Disease Social History No ALCOHOL: none Drugs: None Lives: with Family Current Problem List Problem List Problems Medical Problems: (1) Chest pain Status: Acute (2) Renal failure Status: Acute Current Medications Current Medications Current Medications Aspirin (Charmaine Aspirin) 325 mg 1X ONCE PO Last administered on 10/10/18at 10:30; Start 10/10/18 at 10:30; Stop 10/10/18 at 10:31; Status DC Nitroglycerin (Nitrostat) 0.4 mg PRN Q5MIN PRN SL CHEST PAIN Last administered on 10/10/18at 10:32; Start 10/10/18 at 10:30 Ondansetron HCl (Zofran) 4 mg PRN Q8HRS PRN IV NAUSEA/VOMITING; Start 10/10/18 at 11:00; Stop 10/11/18 at 10:59; Status DC Sodium Chloride 1,000 ml @ 100 mls/hr 1X ONCE IV ; Start 10/10/18 at 13:00; Stop 10/10/18 at 22:59; Status DC Aspirin (Charmaine Aspirin) 325 mg HS PO Last administered on 10/10/18 21:54; Start 10/10/18 at 21:00 Atorvastatin Calcium (Lipitor) 40 mg HS PO Last administered on 10/10/18 21:54; Start 10/10/18 at 21:00 Vitamin D (Vitamin D3) 2,000 unit DAILY PO Last administered on 10/11/18 09:57; Start 10/11/18 at 09:00 Clopidogrel Bisulfate (Plavix) 75 mg DAILY PO Last administered on 10/11/18 09:57; Start 10/11/18 at 09:00 Ferrous Sulfate (Feosol) 325 mg BID PO Last administered on 10/11/18 09:57; Start 10/10/18 at 21:00 Folic Acid (Folic Acid) 1 mg DAILY PO Last administered on 10/11/18 09:58; Start 10/11/18 at 09:00 Acetaminophen/ Hydrocodone Bitart (Lortab 7.5/325) 1 tab PRN Q6HRS PRN PO PAIN; Start 10/10/18 at 15:45 Pantoprazole Sodium (Protonix) 40 mg DAILYAC PO Last administered on 10/11/18 09:57; Start 10/11/18 at 07:30 Insulin Glargine (Lantus) 4 units QHS SQ Last administered on 10/10/18 21:56; Start 10/10/18 at 21:00 Insulin Human Lispro (HumaLOG) 0-5 UNITS TIDWMEALS SQ ; Start 10/10/18 at 17:00 Dextrose (Dextrose 50%-Water Syringe) 12.5 gm PRN Q15MIN PRN IV SEE COMMENTS; Start 10/10/18 at 15:45 Sodium Chloride 1,000 ml @ 100 mls/hr Q10H IV Last administered on 10/11/18at 10:23; Start 10/10/18 at 15:45 Colestipol HCl (Colestid) 5 gm HS PO Last administered on 10/10/18at 23:09; Start 10/10/18 at 21:00 Loperamide HCl (Imodium) 2 mg PRN Q15MIN PRN PO DIARRHEA Last administered on 10/10/18at 23:08; Start 10/10/18 at 20:15 Magnesium Sulfate 50 ml @ 25 mls/hr 1X ONCE IV Last administered on 10/11/18at 09:52; Start 10/11/18 at 08:00; Stop 10/11/18 at 09:59; Status DC Heparin Sodium/ Dextrose 500 ml @ 20 mls/hr CONT PRN IV SEE I/O RECORD Last administered on 10/11/18at 11:22; Start 10/11/18 at 09:30 Heparin Sodium (Porcine) (Heparin Sodium) 2,550 unit PRN Q6HRS PRN IV FOR UFH LEVEL LESS THAN 0.2 Last administered on 10/11/18at 10:11; Start 10/11/18 at 09:15 Active Scripts Active Reported Lisinopril 20 Mg Tablet 1 Tab PO DAILY Eliquis (Apixaban) 5 Mg Tablet 5 Mg PO BID Clopidogrel (Clopidogrel Bisulfate) 75 Mg Tablet 1 Tab PO DAILY Metformin Hcl 500 Mg Tablet 500 Mg PO BIDWMEALS Ferrous Sulfate 325 Mg Tablet 1 Tab PO BID Cyanocobalamin Injection (Cyanocobalamin (Vitamin B-12)) 1,000 Mcg/1 Ml Vial 1,000 Mcg IJ QMONTH Aspirin 325 Mg Tablet 1 Tab PO HS Hydrocodone-Apap 7.5-325 (Hydrocodone Bit/Acetaminophen) 1 Each Tablet 1 Tab PO PRN Q6HRS PRN Gabapentin (Gabapentin) 400 Mg Capsule 1,200 Mg PO BID Vitamin D3 (Cholecalciferol (Vitamin D3)) 1,000 Unit Tablet 2,000 Unit PO Humira (Adalimumab) 40 Mg/0.8 Ml Pen.ij.kit 1 Syr SQ Q2WKS Omeprazole 40 Mg Capsule.dr 1 Cap PO DAILY Cholestyramine Packet (Cholestyramine (With Sugar)) 4 Gm Powd.pack 4 Gm PO Folic Acid 1 Mg Tablet 1 Tab PO DAILY Atorvastatin Calcium 40 Mg Tablet 1 Tab PO HS Allergies Allergies: Coded Allergies: amlodipine (Verified Allergy, Intermediate, Swelling, 07/10/17) azathioprine (Verified Allergy, Intermediate, n/v, 01/24/17) furosemide (Verified Allergy, Intermediate, "i dont know" , 01/15/17) infliximab (Verified Allergy, Intermediate, rash, 01/15/17) ROS Review of System IN HPI, OTHERWISE NEG Physical Exam General: Alert, Oriented X3, Cooperative, No acute distress HEENT: Atraumatic, PERRLA, EOMI, Mucous membr. moist/pink Lungs: Clear to auscultation Heart: Regular rate Abdomen: Normal bowel sounds, Soft Extremities: No clubbing, No cyanosis Skin: No breakdown Neuro: Normal speech, Sensation intact Psych/Mental Status: Mental status NL, Mood NL MUSCULOSKELETAL: No joint tenderness, No deformity Vitals VITALS Vital Signs Date Time Temp Pulse Resp B/P (MAP) Pulse Ox O2 Delivery O2 Flow Rate FiO2 10/11/18 11:00 97.9 59 18 92/49 (63) 99 Room Air 97.9 10/11/18 03:58 2.0 Labs Labs Laboratory Tests Test 10/10/18 10:43 10/10/18 13:00 10/10/18 17:34 10/10/18 17:50 White Blood Count 3.3 x10^3/uL (4.0-11.0) Red Blood Count 3.08 x10^6/uL (4.30-5.70) Hemoglobin 10.4 g/dL (13.0-17.5) Hematocrit 31.8 % (39.0-53.0) Mean Corpuscular Volume 103 fL (79-100) Mean Corpuscular Hemoglobin 34 pg (25-35) Mean Corpuscular Hemoglobin Concent 33 g/dL (31-37) Red Cell Distribution Width 15.0 % (11.5-14.5) Platelet Count 144 x10^3/uL (140-400) Neutrophils (%) (Auto) 63 % (31-73) Lymphocytes (%) (Auto) 25 % (24-48) Monocytes (%) (Auto) 5 % (0-9) Eosinophils (%) (Auto) 6 % (0-3) Basophils (%) (Auto) 1 % (0-3) Neutrophils # (Auto) 2.1 x10^3/uL (1.8-7.7) Lymphocytes # (Auto) 0.8 x10^3/uL (1.0-4.8) Monocytes # (Auto) 0.2 x10^3/uL (0.0-1.1) Eosinophils # (Auto) 0.2 x10^3/uL (0.0-0.7) Basophils # (Auto) 0.0 x10^3/uL (0.0-0.2) Prothrombin Time 18.5 SEC (11.7-14.0) Prothromb Time International Ratio 1.6 (0.8-1.1) Activated Partial Thromboplast Time 43 SEC (24-38) Sodium Level 138 mmol/L (136-145) Potassium Level 5.2 mmol/L (3.5-5.1) Chloride Level 106 mmol/L (98-107) Carbon Dioxide Level 17 mmol/L (21-32) Anion Gap 15 (6-14) Blood Urea Nitrogen 35 mg/dL (8-26) Creatinine 2.2 mg/dL (0.7-1.3) Estimated GFR (Cockcroft-Gault) 29.6 BUN/Creatinine Ratio 16 (6-20) Glucose Level 89 mg/dL (70-99) Calcium Level 8.9 mg/dL (8.5-10.1) Magnesium Level 1.7 mg/dL (1.8-2.4) Total Bilirubin 0.6 mg/dL (0.2-1.0) Aspartate Amino Transf (AST/SGOT) 27 U/L (15-37) Alanine Aminotransferase (ALT/SGPT) 37 U/L (16-63) Alkaline Phosphatase 110 U/L (46-116) Creatine Kinase 56 U/L (39-308) Creatine Kinase MB (Mass) 3.1 ng/mL (0.0-3.6) Creatine Kinase MB Relative Index % (0-4) Troponin I Quantitative < 0.017 ng/mL (0.000-0.055) 0.334 ng/mL (0.000-0.055) YK-Peu-K-Type Natriuretic Peptide 3247 pg/mL (0-124) Total Protein 7.9 g/dL (6.4-8.2) Albumin 3.9 g/dL (3.4-5.0) Albumin/Globulin Ratio 1.0 (1.0-1.7) Triglycerides Level 53 mg/dL (0-150) Cholesterol Level 130 mg/dL (0-200) LDL Cholesterol, Calculated 23 mg/dL (0-100) VLDL Cholesterol, Calculated 11 mg/dL (0-40) Non-HDL Cholesterol Calculated 34 mg/dL (0-129) HDL Cholesterol 96 mg/dL (40-60) Cholesterol/HDL Ratio 1.4 Lipase 74 U/L (73-393) Thyroid Stimulating Hormone (TSH) 2.954 uIU/mL (0.358-3.74) Glucose (Fingerstick) 102 mg/dL (70-99) Urine Collection Type Unknown Urine Color Yellow Urine Clarity Clear Urine pH 5.5 Urine Specific [place] 1.020 Urine Protein Negative mg/dL (NEG-TRACE) Urine Glucose (UA) Negative mg/dL (NEG) Urine Ketones (Stick) Negative mg/dL (NEG) Urine Blood Negative (NEG) Urine Nitrite Negative (NEG) Urine Bilirubin Negative (NEG) Urine Urobilinogen Dipstick 0.2 mg/dL (0.2 mg/dL) Urine Leukocyte Esterase Negative (NEG) Urine RBC Occ /HPF (0-2) Urine WBC Occ /HPF (0-4) Urine Squamous Epithelial Cells Few /LPF Urine Bacteria 0 /HPF (0-FEW) Urine Mucus Slight /LPF Test 10/10/18 20:38 10/11/18 04:30 10/11/18 07:58 Glucose (Fingerstick) 108 mg/dL (70-99) 93 mg/dL (70-99) Sodium Level 138 mmol/L (136-145) Potassium Level 5.1 mmol/L (3.5-5.1) Chloride Level 107 mmol/L (98-107) Carbon Dioxide Level 18 mmol/L (21-32) Anion Gap 13 (6-14) Blood Urea Nitrogen 34 mg/dL (8-26) Creatinine 1.9 mg/dL (0.7-1.3) Estimated GFR (Cockcroft-Gault) 35.0 Glucose Level 103 mg/dL (70-99) Calcium Level 8.2 mg/dL (8.5-10.1) Magnesium Level 1.5 mg/dL (1.8-2.4) Troponin I Quantitative 1.073 ng/mL (0.000-0.055) Laboratory Tests Test 10/10/18 13:00 10/10/18 17:34 10/10/18 17:50 10/10/18 20:38 Troponin I Quantitative 0.334 ng/mL (0.000-0.055) Glucose (Fingerstick) 102 mg/dL (70-99) 108 mg/dL (70-99) Urine Collection Type Unknown Urine Color Yellow Urine Clarity Clear Urine pH 5.5 Urine Specific [place] 1.020 Urine Protein Negative mg/dL (NEG-TRACE) Urine Glucose (UA) Negative mg/dL (NEG) Urine Ketones (Stick) Negative mg/dL (NEG) Urine Blood Negative (NEG) Urine Nitrite Negative (NEG) Urine Bilirubin Negative (NEG) Urine Urobilinogen Dipstick 0.2 mg/dL (0.2 mg/dL) Urine Leukocyte Esterase Negative (NEG) Urine RBC Occ /HPF (0-2) Urine WBC Occ /HPF (0-4) Urine Squamous Epithelial Cells Few /LPF Urine Bacteria 0 /HPF (0-FEW) Urine Mucus Slight /LPF Test 10/11/18 04:30 10/11/18 07:58 Sodium Level 138 mmol/L (136-145) Potassium Level 5.1 mmol/L (3.5-5.1) Chloride Level 107 mmol/L (98-107) Carbon Dioxide Level 18 mmol/L (21-32) Anion Gap 13 (6-14) Blood Urea Nitrogen 34 mg/dL (8-26) Creatinine 1.9 mg/dL (0.7-1.3) Estimated GFR (Cockcroft-Gault) 35.0 Glucose Level 103 mg/dL (70-99) Calcium Level 8.2 mg/dL (8.5-10.1) Magnesium Level 1.5 mg/dL (1.8-2.4) Troponin I Quantitative 1.073 ng/mL (0.000-0.055) Glucose (Fingerstick) 93 mg/dL (70-99) Assessment/Plan Assessment/Plan IMP CHEST PAIN CAD WITH AFIB DM II HTN CKD STAGE 3 WITH CR OF 1.5 AT BASELINE MILD ANDREINA WITH CR OF ABOUT 2.0 HYPERKALEMIA HYPOMAGNESEMIA PLAN HYDRATE POSTPONE CATH TILL CR AT BASELINE REPLACE MAG D/W CARDIOLOGY WILL FOLLOW ROME FERNANDEZ MD Oct 11, 2018 12:15
[2018-10-11 15:00] VITALS: BP 110/55
--- NOTE | 2018-10-11 15:05 | NUR ---
SS following for discharge planning. SS reviewed pt chart. Pt is from home with spouse and is currently on room air. No discharge needs noted at this time. SS will continue to follow for discharge planning.
[2018-10-11 19:00] VITALS: BP 119/59
[2018-10-11] MEDS: ATORVASTATIN CALCIUM 40 MG TABLET. PO SCH (20:54)
[2018-10-11] MEDS: COLESTIPOL HCL 1 GM TABLET PO SCH (20:55)
[2018-10-11] MEDS: ASPIRIN 325 MG TABLET PO SCH (20:55)
[2018-10-11] MEDS: INSULIN GLARGINE 300 UNITS/3 ML INSULN.PEN. SQ SCH (21:01)
[2018-10-11 23:05] VITALS: BP 120/56
[2018-10-12 03:08] VITALS: BP 101/50
[2018-10-12 07:00] VITALS: BP 109/56
[2018-10-12] MEDS: IV NORMAL SALINE 1000ML BAG 1,000 ML IV SCH ×2 (07:45→17:45)
[2018-10-12] MEDS: INSULIN LISPRO 300 UNITS/3 ML INSULN.PEN. SQ SCH ×3 (08:00→17:00)
[2018-10-12] MEDS: FERROUS SULFATE 325 MG TABLET. PO SCH ×2 (08:29→22:06)
[2018-10-12] MEDS: CHOLECALCIFEROL (VITAMIN D3) 1,000 UNIT TABLET PO SCH (08:29)
[2018-10-12] MEDS: PANTOPRAZOLE 40 MG TABLET.DR. PO SCH (08:30)
[2018-10-12] MEDS: FOLIC ACID 1 MG TABLET. PO SCH (08:31)
[2018-10-12 08:42] LABS: BASO % 1 % (0-3); EOS # 0.1 x10^3/uL (0.0-0.7); EOS % 4 % (0-3); HEMATOCRIT 26.7 % (39.0-53.0); HEMOGLOBIN 8.7 g/dL (13.0-17.5); LYMPH # 0.8 x10^3/uL (1.0-4.8); LYMPH % 24 % (24-48); MEAN CORPUSCULAR HEMOGLOBIN 33 pg (25-35); MEAN CORPUSCULAR HGB CONC 33 g/dL (31-37); MEAN CORPUSCULAR VOLUME 103 fL (79-100); MONO # 0.3 x10^3/uL (0.0-1.1); MONO % 8 % (0-9); NEUT % 62 % (31-73); PLATELET COUNT 128 x10^3/uL (140-400); RED CELL DISTRIBUTION WIDTH 14.7 % (11.5-14.5); WHITE BLOOD COUNT 3.3 x10^3/uL (4.0-11.0)
[2018-10-12 08:54] LABS: CALCIUM 8.1 mg/dL (8.5-10.1); CREATININE 1.9 mg/dL (0.7-1.3); POTASSIUM 5.2 mmol/L (3.5-5.1)
[2018-10-12] MEDS: CLOPIDOGREL BISULFATE 75 MG TABLET PO SCH (09:00)
[2018-10-12 11:00] VITALS: BP 136/62
--- NOTE | 2018-10-12 11:53 | PDOC ---
[facility] [facility] PROGRESS NOTE Chief Complaint Chief Complaint Probable AMI Chest pain w/ elevated troponin Old hx of coronary disease (9 prior stents) Acute renal failure History of Present Illness History of Present Illness 10-12-18 Pt. seen and examined Chart reviewed ESTEFANY RN Vitals/I&O Vitals/I&O: Vital Signs Date Time Temp Pulse Resp B/P (MAP) Pulse Ox O2 Delivery O2 Flow Rate FiO2 10/12/18 11:00 98.2 62 16 136/62 (86) 100 Room Air 98.2 I & O 10/11/18 10/11/18 10/12/18 15:00 23:00 07:00 Intake Total 200 ml 200 ml 770 ml Output Total 400 ml 400 ml Balance 200 ml -200 ml 370 ml Physical Exam General: Alert, Oriented X3, Cooperative, No acute distress Heart: Regular rate, Normal S1, Normal S2 Lungs: Clear, Other Abdomen: Normal bowel sounds, Soft Extremities: No clubbing, No cyanosis Skin: No rashes, No breakdown Labs Labs: Laboratory Tests Test 10/11/18 12:20 10/11/18 17:17 10/11/18 17:38 10/11/18 20:25 Glucose (Fingerstick) 152 mg/dL (70-99) 112 mg/dL (70-99) 121 mg/dL (70-99) Heparin Anti-Xa Act, Unfractionated > 1.10 IU/mL (0.30-0.70) Test 10/12/18 01:00 10/12/18 08:30 Heparin Anti-Xa Act, Unfractionated 1.05 IU/mL (0.30-0.70) 0.94 IU/mL (0.30-0.70) White Blood Count 3.3 x10^3/uL (4.0-11.0) Red Blood Count 2.60 x10^6/uL (4.30-5.70) Hemoglobin 8.7 g/dL (13.0-17.5) Hematocrit 26.7 % (39.0-53.0) Mean Corpuscular Volume 103 fL (79-100) Mean Corpuscular Hemoglobin 33 pg (25-35) Mean Corpuscular Hemoglobin Concent 33 g/dL (31-37) Red Cell Distribution Width 14.7 % (11.5-14.5) Platelet Count 128 x10^3/uL (140-400) Neutrophils (%) (Auto) 62 % (31-73) Lymphocytes (%) (Auto) 24 % (24-48) Monocytes (%) (Auto) 8 % (0-9) Eosinophils (%) (Auto) 4 % (0-3) Basophils (%) (Auto) 1 % (0-3) Neutrophils # (Auto) 2.0 x10^3/uL (1.8-7.7) Lymphocytes # (Auto) 0.8 x10^3/uL (1.0-4.8) Monocytes # (Auto) 0.3 x10^3/uL (0.0-1.1) Eosinophils # (Auto) 0.1 x10^3/uL (0.0-0.7) Basophils # (Auto) 0.0 x10^3/uL (0.0-0.2) Sodium Level 141 mmol/L (136-145) Potassium Level 5.2 mmol/L (3.5-5.1) Chloride Level 109 mmol/L (98-107) Carbon Dioxide Level 21 mmol/L (21-32) Anion Gap 11 (6-14) Blood Urea Nitrogen 25 mg/dL (8-26) Creatinine 1.9 mg/dL (0.7-1.3) Estimated GFR (Cockcroft-Gault) 35.0 Glucose Level 119 mg/dL (70-99) Calcium Level 8.1 mg/dL (8.5-10.1) Magnesium Level 1.7 mg/dL (1.8-2.4) Troponin I Quantitative 0.379 ng/mL (0.000-0.055) Review of Systems Review of Systems: No headache No SOB Assessment and Plan Assessmemt and Plan Problems Medical Problems: (1) Chest pain Status: Acute (2) Renal failure Status: Acute Assessment: Probable AMI Chest pain w/ elevated troponin Old hx of coronary disease (9 prior stents) Acute renal failure Plan: Heparin drip IV fluids Trend Cr (currently holding steady at 1.9) Cardiac monitoring Awaiting cardiac cath (scheduled for 10/14) PT/OT Home meds Comment Review of Relevant I have reviewed the following items bernadine (where applicable) has been applied. JESSICA RAMIREZ III DO Oct 12, 2018 11:53
--- NOTE | 2018-10-12 13:18 | PDOC ---
SUBJECTIVE ROS No complaints OBJECTIVE Vital Signs Vital Signs Date Time Temp Pulse Resp B/P (MAP) Pulse Ox O2 Delivery O2 Flow Rate FiO2 10/12/18 11:00 98.2 62 16 136/62 (86) 100 Room Air 98.2 I & 0 Intake and Output 10/12/18 07:00 Intake Total 1170 ml Output Total 800 ml Balance 370 ml Intake Oral 400 ml IV Total 770 ml Output Urine Total 800 ml # Voids 1 # Bowel Movements 1 PHYSICAL EXAM Physical Exam General: Alert, Oriented X3, Cooperative, No acute distress HEENT: Atraumatic, PERRLA, EOMI, Mucous membr. moist/pink Lungs: Clear to auscultation Heart: Regular rate Abdomen: Normal bowel sounds, Soft Extremities: No clubbing, No cyanosis Skin: No breakdown Neuro: Normal speech, Sensation intact Psych/Mental Status: Mental status NL, Mood NL MUSCULOSKELETAL: No joint tenderness, No deformity DIAGNOSIS/ASSESSMENT Assessment & Plan CHEST PAIN/ NSTEMI CAD WITH AFIB DM II HTN CKD STAGE 3 WITH CR OF 1.5 AT BASELINE MILD ANDREINA WITH CR OF ABOUT 2.0->1.9 x 2 days - ? New baseline HYPERKALEMIA- High Normal PLAN Cath planned for Sunday - IV Hydration Risk of CHRISTINA , Pt aware , would like to proceed COMMENT/RELEVANT DATA Meds Current Medications Medications (Trade) Dose Ordered Sig/Jose Start Time Stop Time Status Last Admin Dose Admin Acetaminophen/ Hydrocodone Bitart (Lortab 7.5/325) 1 tab PRN Q6HRS PRN 10/10/18 15:45 Aspirin (Charmaine Aspirin) 325 mg HS 10/10/18 21:00 10/11/18 20:55 325 MG Atorvastatin Calcium (Lipitor) 40 mg HS 10/10/18 21:00 10/11/18 20:54 40 MG Clopidogrel Bisulfate (Plavix) 75 mg DAILY 10/11/18 09:00 10/11/18 09:57 75 MG Colestipol HCl (Colestid) 5 gm HS 10/10/18 21:00 10/11/18 20:55 5 GM Dextrose (Dextrose 50%-Water Syringe) 12.5 gm PRN Q15MIN PRN 10/10/18 15:45 Ferrous Sulfate (Feosol) 325 mg BID 10/10/18 21:00 10/12/18 08:29 325 MG Folic Acid (Folic Acid) 1 mg DAILY 10/11/18 09:00 10/11/18 09:58 1 MG Heparin Sodium (Porcine) (Heparin Sodium) 2,550 unit PRN Q6HRS PRN 10/11/18 09:15 10/11/18 10:11 2,550 UNIT Heparin Sodium/ Dextrose 500 ml @ 20 mls/hr CONT PRN 10/11/18 09:30 10/11/18 11:22 20 MLS/HR Insulin Glargine (Lantus) 4 units QHS 10/10/18 21:00 10/11/18 21:01 4 UNITS Insulin Human Lispro (HumaLOG) 0-5 UNITS TIDWMEALS 10/10/18 17:00 Loperamide HCl (Imodium) 2 mg PRN Q15MIN PRN 10/10/18 20:15 10/10/18 23:08 2 MG Magnesium Sulfate 50 ml @ 25 mls/hr 1X ONCE 10/11/18 08:00 10/11/18 09:59 DC 10/11/18 09:52 25 MLS/HR Nitroglycerin (Nitrostat) 0.4 mg PRN Q5MIN PRN 10/10/18 10:30 10/10/18 10:32 0.4 MG Ondansetron HCl (Zofran) 4 mg PRN Q8HRS PRN 10/10/18 11:00 10/11/18 10:59 DC Pantoprazole Sodium (Protonix) 40 mg DAILYAC 10/11/18 07:30 10/12/18 08:30 40 MG Sodium Chloride 1,000 ml @ 100 mls/hr Q10H 10/10/18 15:45 10/12/18 07:45 100 MLS/HR Vitamin D (Vitamin D3) 2,000 unit DAILY 10/11/18 09:00 10/12/18 08:29 2,000 UNIT Lab Laboratory Tests Test 10/11/18 17:17 10/11/18 17:38 10/11/18 20:25 10/12/18 01:00 Glucose (Fingerstick) 112 mg/dL (70-99) 121 mg/dL (70-99) Heparin Anti-Xa Act, Unfractionated > 1.10 IU/mL (0.30-0.70) 1.05 IU/mL (0.30-0.70) Test 10/12/18 07:22 10/12/18 08:30 10/12/18 11:46 Glucose (Fingerstick) 120 mg/dL (70-99) 111 mg/dL (70-99) White Blood Count 3.3 x10^3/uL (4.0-11.0) Red Blood Count 2.60 x10^6/uL (4.30-5.70) Hemoglobin 8.7 g/dL (13.0-17.5) Hematocrit 26.7 % (39.0-53.0) Mean Corpuscular Volume 103 fL (79-100) Mean Corpuscular Hemoglobin 33 pg (25-35) Mean Corpuscular Hemoglobin Concent 33 g/dL (31-37) Red Cell Distribution Width 14.7 % (11.5-14.5) Platelet Count 128 x10^3/uL (140-400) Neutrophils (%) (Auto) 62 % (31-73) Lymphocytes (%) (Auto) 24 % (24-48) Monocytes (%) (Auto) 8 % (0-9) Eosinophils (%) (Auto) 4 % (0-3) Basophils (%) (Auto) 1 % (0-3) Neutrophils # (Auto) 2.0 x10^3/uL (1.8-7.7) Lymphocytes # (Auto) 0.8 x10^3/uL (1.0-4.8) Monocytes # (Auto) 0.3 x10^3/uL (0.0-1.1) Eosinophils # (Auto) 0.1 x10^3/uL (0.0-0.7) Basophils # (Auto) 0.0 x10^3/uL (0.0-0.2) Heparin Anti-Xa Act, Unfractionated 0.94 IU/mL (0.30-0.70) Sodium Level 141 mmol/L (136-145) Potassium Level 5.2 mmol/L (3.5-5.1) Chloride Level 109 mmol/L (98-107) Carbon Dioxide Level 21 mmol/L (21-32) Anion Gap 11 (6-14) Blood Urea Nitrogen 25 mg/dL (8-26) Creatinine 1.9 mg/dL (0.7-1.3) Estimated GFR (Cockcroft-Gault) 35.0 Glucose Level 119 mg/dL (70-99) Calcium Level 8.1 mg/dL (8.5-10.1) Magnesium Level 1.7 mg/dL (1.8-2.4) Troponin I Quantitative 0.379 ng/mL (0.000-0.055) Results All relevant outside records, renal labs, imaging studies, telemetry/EKG's were reviewed. MIMI LUX MD Oct 12, 2018 13:18
--- NOTE | 2018-10-12 13:56 | PDOC ---
CARDIOLOGY PROGRESS NOTE SUBJECTIVE: No acute events. no chest pain. No dyspnea OBJECTIVE: Vital Signs/I&O: Vital Signs Date Time Temp Pulse Resp B/P (MAP) Pulse Ox O2 Delivery O2 Flow Rate FiO2 10/12/18 11:00 98.2 62 16 136/62 (86) 100 Room Air 98.2 I & O 10/11/18 10/11/18 10/12/18 14:59 22:59 06:59 Intake Total 200 ml 200 ml 770 ml Output Total 400 ml 400 ml Balance 200 ml -200 ml 370 ml Objective: GEN.: No apparent distress. Alert and oriented. HEENT: Head is normocephalic, atraumatic NECK: Supple. LUNGS: Clear to auscultation. HEART: RRR, S1, S2 present. Peripheral pulses intact ABDOMEN: Soft, nontender. Positive bowel sounds. EXTREMITIES: Without any cyanosis. NEUROLOGIC: Normal speech, normal tone PSYCHIATRIC: Normal affect, normal mood. SKIN: No ulcerations CURRENT MEDICATIONS: Hep gtt Plavix ASA Atorvastatin DIAGNOSTIC TESTING: Trop peak at 1 No events on telemetry Hgb 8.7 Cr 1.9 ASSESSMENT: 1. NSTEMI 2. CAD 3. Valvular disease. 4. HTN 5. CKD 6. Severe pulmonary HTN 7. Permanent atrial fibrillation PLAN: 1. Will monitor for any further anemia. 2. Continue plavix for now. Decrease asa to 81 mg daily 3. Patient has significant comorbidities, elevated troponin may not be related to coronary disease and rather due to severe pulmonary HTN. 4. Will likely do a right and left heart cath on sunday depending cr. 5. Cautious fluid resuscitation 6. Will stop hep gtt. Thanks CARLINE EARL MD Oct 12, 2018 13:56
[2018-10-12 15:00] VITALS: BP 95/50
[2018-10-12 19:00] VITALS: BP 121/67
[2018-10-12] MEDS: ASPIRIN CHEWABLE 81 MG TABLET. PO SCH (22:06)
[2018-10-12] MEDS: ATORVASTATIN CALCIUM 40 MG TABLET. PO SCH (22:06)
[2018-10-12] MEDS: COLESTIPOL HCL 1 GM TABLET PO SCH (22:07)
[2018-10-12] MEDS: INSULIN GLARGINE 300 UNITS/3 ML INSULN.PEN. SQ SCH (22:13)
[2018-10-12 22:45] VITALS: BP 126/53
[2018-10-13 03:00] VITALS: BP 110/44
[2018-10-13] MEDS: IV NORMAL SALINE 1000ML BAG 1,000 ML IV SCH ×3 (03:45→23:45)
[2018-10-13 05:21] LABS: BASO % 1 % (0-3); EOS # 0.2 x10^3/uL (0.0-0.7); EOS % 6 % (0-3); HEMATOCRIT 25.2 % (39.0-53.0); HEMOGLOBIN 8.3 g/dL (13.0-17.5); LYMPH # 0.9 x10^3/uL (1.0-4.8); LYMPH % 27 % (24-48); MEAN CORPUSCULAR HEMOGLOBIN 33 pg (25-35); MEAN CORPUSCULAR HGB CONC 33 g/dL (31-37); MEAN CORPUSCULAR VOLUME 102 fL (79-100); MONO # 0.3 x10^3/uL (0.0-1.1); MONO % 9 % (0-9); NEUT # 1.8 x10^3/uL (1.8-7.7); NEUT % 56 % (31-73); PLATELET COUNT 119 x10^3/uL (140-400); RED BLOOD COUNT 2.47 x10^6/uL (4.30-5.70); WHITE BLOOD COUNT 3.2 x10^3/uL (4.0-11.0)
[2018-10-13 05:50] LABS: CALCIUM 8.3 mg/dL (8.5-10.1); CREATININE 1.9 mg/dL (0.7-1.3)
[2018-10-13 07:00] VITALS: BP 137/66
[2018-10-13] MEDS: INSULIN LISPRO 300 UNITS/3 ML INSULN.PEN. SQ SCH ×3 (07:50→17:00)
[2018-10-13] MEDS: PANTOPRAZOLE 40 MG TABLET.DR. PO SCH (07:53)
[2018-10-13] MEDS: FOLIC ACID 1 MG TABLET. PO SCH (07:53)
[2018-10-13] MEDS: FERROUS SULFATE 325 MG TABLET. PO SCH ×2 (07:53→21:45)
[2018-10-13] MEDS: CLOPIDOGREL BISULFATE 75 MG TABLET PO SCH (07:53)
[2018-10-13] MEDS: CHOLECALCIFEROL (VITAMIN D3) 1,000 UNIT TABLET PO SCH (07:53)
[2018-10-13 11:00] VITALS: BP 143/84
--- NOTE | 2018-10-13 11:50 | PDOC ---
CARDIOLOGY PROGRESS NOTE SUBJECTIVE: He had exertional dyspnea with mild chest pain. No other issues. Eating well. OBJECTIVE: Vital Signs/I&O: Vital Signs Date Time Temp Pulse Resp B/P (MAP) Pulse Ox O2 Delivery O2 Flow Rate FiO2 10/13/18 11:00 98.5 75 16 143/84 (103) 97 Room Air 98.5 I & O 10/12/18 10/12/18 10/13/18 15:00 23:00 07:00 Output Total 602 ml 1 ml 502 ml Balance -602 ml -1 ml -502 ml Objective: GEN.: No apparent distress. Alert and oriented. HEENT: Head is normocephalic, atraumatic NECK: Supple. LUNGS: Clear to auscultation. HEART: RRR, S1, S2 present. Peripheral pulses intact. 3/6 systolic murmur ABDOMEN: Soft, nontender. Positive bowel sounds. EXTREMITIES: Without any cyanosis. NEUROLOGIC: Normal speech, normal tone PSYCHIATRIC: Normal affect, normal mood. SKIN: No ulcerations CURRENT MEDICATIONS: asa, plavix, statin DIAGNOSTIC TESTING: hgb 8.3, cr 1.9 ASSESSMENT: 1. NSTEMI 2. Severe pulmonary HTN 3. CKD 4. Iron def anemia PLAN: 1. Plan for R/LHC in a.m. with Dr. Fink. r/b/a discussed fully and patient understands and wishes to proceed. 2. Continue present meds. Thanks. CARLINE EARL MD Oct 13, 2018 11:50
--- NOTE | 2018-10-13 13:14 | PDOC ---
SUBJECTIVE ROS No complaints OBJECTIVE Vital Signs Vital Signs Date Time Temp Pulse Resp B/P (MAP) Pulse Ox O2 Delivery O2 Flow Rate FiO2 10/13/18 11:00 98.5 75 16 143/84 (103) 97 Room Air 98.5 I & 0 Intake and Output 10/13/18 06:59 Output Total 605 ml Balance -605 ml Output Urine Total 605 ml PHYSICAL EXAM Physical Exam General: Alert, Oriented X3, Cooperative, No acute distress HEENT: Atraumatic, PERRLA, EOMI, Mucous membr. moist/pink Lungs: Clear to auscultation Heart: Regular rate Abdomen: Normal bowel sounds, Soft Extremities: No clubbing, No cyanosis Skin: No breakdown Neuro: Normal speech, Sensation intact Psych/Mental Status: Mental status NL, Mood NL MUSCULOSKELETAL: No joint tenderness, No deformity DIAGNOSIS/ASSESSMENT Assessment & Plan CHEST PAIN/ NSTEMI CAD WITH AFIB DM II HTN CKD STAGE 3 WITH CR OF 1.5 AT BASELINE MILD ANDREINA WITH CR OF ABOUT 2.0->1.9 x 2 days - ? New baseline HYPERKALEMIA- High Normal PLAN Cath planned for Sunday - IV Hydration Risk of CHRISTINA , Pt aware , would like to proceed COMMENT/RELEVANT DATA Meds Current Medications Medications (Trade) Dose Ordered Sig/Jose Start Time Stop Time Status Last Admin Dose Admin Acetaminophen/ Hydrocodone Bitart (Lortab 7.5/325) 1 tab PRN Q6HRS PRN 10/10/18 15:45 Aspirin (Charmaine Aspirin) 325 mg HS 10/10/18 21:00 10/12/18 13:43 DC 10/11/18 20:55 325 MG Aspirin (Children'S Aspirin) 81 mg QHS 10/12/18 21:00 10/12/18 22:06 81 MG Atorvastatin Calcium (Lipitor) 40 mg HS 10/10/18 21:00 10/12/18 22:06 40 MG Clopidogrel Bisulfate (Plavix) 75 mg DAILY 10/11/18 09:00 10/13/18 07:53 75 MG Colestipol HCl (Colestid) 5 gm HS 10/10/18 21:00 10/12/18 22:07 5 GM Dextrose (Dextrose 50%-Water Syringe) 12.5 gm PRN Q15MIN PRN 10/10/18 15:45 Ferrous Sulfate (Feosol) 325 mg BID 10/10/18 21:00 10/13/18 07:53 325 MG Folic Acid (Folic Acid) 1 mg DAILY 10/11/18 09:00 10/13/18 07:53 1 MG Heparin Sodium (Porcine) (Heparin Sodium) 2,550 unit PRN Q6HRS PRN 10/11/18 09:15 10/12/18 17:42 DC 10/11/18 10:11 2,550 UNIT Heparin Sodium/ Dextrose 500 ml @ 20 mls/hr CONT PRN 10/11/18 09:30 10/12/18 17:40 DC 10/11/18 11:22 20 MLS/HR Insulin Glargine (Lantus) 4 units QHS 10/10/18 21:00 10/12/18 22:13 4 UNITS Insulin Human Lispro (HumaLOG) 0-5 UNITS TIDWMEALS 10/10/18 17:00 Loperamide HCl (Imodium) 2 mg PRN Q15MIN PRN 10/10/18 20:15 10/10/18 23:08 2 MG Magnesium Sulfate 50 ml @ 25 mls/hr 1X ONCE 10/11/18 08:00 10/11/18 09:59 DC 10/11/18 09:52 25 MLS/HR Nitroglycerin (Nitrostat) 0.4 mg PRN Q5MIN PRN 10/10/18 10:30 10/10/18 10:32 0.4 MG Ondansetron HCl (Zofran) 4 mg PRN Q8HRS PRN 10/10/18 11:00 10/11/18 10:59 DC Pantoprazole Sodium (Protonix) 40 mg DAILYAC 10/11/18 07:30 10/13/18 07:53 40 MG Sodium Chloride 1,000 ml @ 100 mls/hr Q10H 10/10/18 15:45 10/13/18 03:45 100 MLS/HR Vitamin D (Vitamin D3) 2,000 unit DAILY 10/11/18 09:00 10/13/18 07:53 2,000 UNIT Lab Laboratory Tests Test 10/12/18 13:40 10/12/18 16:49 10/12/18 20:47 10/13/18 04:12 Heparin Anti-Xa Act, Unfractionated 0.65 IU/mL (0.30-0.70) Glucose (Fingerstick) 105 mg/dL (70-99) 131 mg/dL (70-99) White Blood Count 3.2 x10^3/uL (4.0-11.0) Red Blood Count 2.47 x10^6/uL (4.30-5.70) Hemoglobin 8.3 g/dL (13.0-17.5) Hematocrit 25.2 % (39.0-53.0) Mean Corpuscular Volume 102 fL (79-100) Mean Corpuscular Hemoglobin 33 pg (25-35) Mean Corpuscular Hemoglobin Concent 33 g/dL (31-37) Red Cell Distribution Width 15.0 % (11.5-14.5) Platelet Count 119 x10^3/uL (140-400) Neutrophils (%) (Auto) 56 % (31-73) Lymphocytes (%) (Auto) 27 % (24-48) Monocytes (%) (Auto) 9 % (0-9) Eosinophils (%) (Auto) 6 % (0-3) Basophils (%) (Auto) 1 % (0-3) Neutrophils # (Auto) 1.8 x10^3/uL (1.8-7.7) Lymphocytes # (Auto) 0.9 x10^3/uL (1.0-4.8) Monocytes # (Auto) 0.3 x10^3/uL (0.0-1.1) Eosinophils # (Auto) 0.2 x10^3/uL (0.0-0.7) Basophils # (Auto) 0.0 x10^3/uL (0.0-0.2) Sodium Level 139 mmol/L (136-145) Potassium Level 5.0 mmol/L (3.5-5.1) Chloride Level 108 mmol/L (98-107) Carbon Dioxide Level 21 mmol/L (21-32) Anion Gap 10 (6-14) Blood Urea Nitrogen 22 mg/dL (8-26) Creatinine 1.9 mg/dL (0.7-1.3) Estimated GFR (Cockcroft-Gault) 35.0 Glucose Level 112 mg/dL (70-99) Calcium Level 8.3 mg/dL (8.5-10.1) Test 10/13/18 07:41 10/13/18 11:51 Glucose (Fingerstick) 103 mg/dL (70-99) 115 mg/dL (70-99) Results All relevant outside records, renal labs, imaging studies, telemetry/EKG's were reviewed. MIMI LUX MD Oct 13, 2018 13:14
--- NOTE | 2018-10-13 14:29 | PDOC ---
[facility] [facility] PROGRESS NOTE Chief Complaint Chief Complaint Acute SOB Probable AMI Chest pain w/ elevated troponin Old hx of coronary disease (9 prior stents) Acute renal failure History of Present Illness History of Present Illness 10-13-18 Pt. seen and examined Chart reviewed DW RN Vitals/I&O Vitals/I&O: Vital Signs Date Time Temp Pulse Resp B/P (MAP) Pulse Ox O2 Delivery O2 Flow Rate FiO2 10/13/18 11:00 98.5 75 16 143/84 (103) 97 Room Air 98.5 I & O 10/12/18 10/12/18 10/13/18 15:00 23:00 07:00 Output Total 602 ml 1 ml 502 ml Balance -602 ml -1 ml -502 ml Physical Exam General: Alert, Oriented X3, Cooperative, No acute distress Heart: Regular rate, Normal S1, Normal S2, Other (mitral systolic ejection murmur) Lungs: Clear, Other Abdomen: Normal bowel sounds, Soft Extremities: No clubbing, No cyanosis Skin: No rashes, No breakdown Labs Labs: Laboratory Tests Test 10/12/18 16:49 10/12/18 20:47 10/13/18 04:12 10/13/18 07:41 Glucose (Fingerstick) 105 mg/dL (70-99) 131 mg/dL (70-99) 103 mg/dL (70-99) White Blood Count 3.2 x10^3/uL (4.0-11.0) Red Blood Count 2.47 x10^6/uL (4.30-5.70) Hemoglobin 8.3 g/dL (13.0-17.5) Hematocrit 25.2 % (39.0-53.0) Mean Corpuscular Volume 102 fL (79-100) Mean Corpuscular Hemoglobin 33 pg (25-35) Mean Corpuscular Hemoglobin Concent 33 g/dL (31-37) Red Cell Distribution Width 15.0 % (11.5-14.5) Platelet Count 119 x10^3/uL (140-400) Neutrophils (%) (Auto) 56 % (31-73) Lymphocytes (%) (Auto) 27 % (24-48) Monocytes (%) (Auto) 9 % (0-9) Eosinophils (%) (Auto) 6 % (0-3) Basophils (%) (Auto) 1 % (0-3) Neutrophils # (Auto) 1.8 x10^3/uL (1.8-7.7) Lymphocytes # (Auto) 0.9 x10^3/uL (1.0-4.8) Monocytes # (Auto) 0.3 x10^3/uL (0.0-1.1) Eosinophils # (Auto) 0.2 x10^3/uL (0.0-0.7) Basophils # (Auto) 0.0 x10^3/uL (0.0-0.2) Sodium Level 139 mmol/L (136-145) Potassium Level 5.0 mmol/L (3.5-5.1) Chloride Level 108 mmol/L (98-107) Carbon Dioxide Level 21 mmol/L (21-32) Anion Gap 10 (6-14) Blood Urea Nitrogen 22 mg/dL (8-26) Creatinine 1.9 mg/dL (0.7-1.3) Estimated GFR (Cockcroft-Gault) 35.0 Glucose Level 112 mg/dL (70-99) Calcium Level 8.3 mg/dL (8.5-10.1) Test 10/13/18 11:51 Glucose (Fingerstick) 115 mg/dL (70-99) Review of Systems Review of Systems: No headache No fever/chills Assessment and Plan Assessmemt and Plan Problems Medical Problems: (1) Chest pain Status: Acute (2) Renal failure Status: Acute Assessment: Acute SOB Probable AMI Chest pain w/ elevated troponin Old hx of coronary disease (9 prior stents) Acute renal failure Plan: Heparin drip Decrease IV fluids (100cc/hr to 60 cc/hr) Trend Cr (holding steady at 1.9) Cardiac monitoring Awaiting cardiac cath (scheduled for 10/14) PT/OT Home meds Comment Review of Relevant I have reviewed the following items bernadine (where applicable) has been applied. Medications: Current Medications Medications (Trade) Dose Ordered Sig/Jose Route PRN Reason Start Time Stop Time Status Last Admin Dose Admin Aspirin (Children'S Aspirin) 81 mg QHS PO 10/12/18 21:00 10/12/18 22:06 JESSICA RAMIREZ III DO Oct 13, 2018 14:29
[2018-10-13 15:00] VITALS: BP 139/71
[2018-10-13 19:35] VITALS: BP 128/62
[2018-10-13] MEDS: ASPIRIN CHEWABLE 81 MG TABLET. PO SCH (21:45)
[2018-10-13] MEDS: ATORVASTATIN CALCIUM 40 MG TABLET. PO SCH (21:45)
[2018-10-13] MEDS: COLESTIPOL HCL 1 GM TABLET PO SCH (21:46)
[2018-10-13] MEDS: INSULIN GLARGINE 300 UNITS/3 ML INSULN.PEN. SQ SCH (21:51)
[2018-10-13 23:10] VITALS: BP 136/75
[2018-10-14] VITALS (14 sets, daily range): BP systolic 131–170; BP diastolic 67–90
[2018-10-14] MEDS: PANTOPRAZOLE 40 MG TABLET.DR. PO SCH (07:30)
[2018-10-14 07:35] LABS: BASO % 1 % (0-3); EOS # 0.3 x10^3/uL (0.0-0.7); EOS % 8 % (0-3); HEMATOCRIT 26.9 % (39.0-53.0); HEMOGLOBIN 8.8 g/dL (13.0-17.5); LYMPH # 0.8 x10^3/uL (1.0-4.8); LYMPH % 19 % (24-48); MEAN CORPUSCULAR HEMOGLOBIN 34 pg (25-35); MEAN CORPUSCULAR HGB CONC 33 g/dL (31-37); MEAN CORPUSCULAR VOLUME 103 fL (79-100); MONO # 0.3 x10^3/uL (0.0-1.1); MONO % 8 % (0-9); NEUT # 2.6 x10^3/uL (1.8-7.7); NEUT % 65 % (31-73); PLATELET COUNT 135 x10^3/uL (140-400); RED BLOOD COUNT 2.62 x10^6/uL (4.30-5.70); RED CELL DISTRIBUTION WIDTH 15.5 % (11.5-14.5)
[2018-10-14 07:54] LABS: CALCIUM 8.6 mg/dL (8.5-10.1); POTASSIUM 4.6 mmol/L (3.5-5.1)
[2018-10-14] MEDS ORDERED: IOHEXOL 300 MG/ML 100ML VIAL. ONE (08:00)
[2018-10-14] MEDS: INSULIN LISPRO 300 UNITS/3 ML INSULN.PEN. SQ SCH ×3 (08:00→17:00)
[2018-10-14] MEDS ORDERED: LIDOCAINE 1% Multi-Dose 20 ML VIAL. ONE (08:00)
[2018-10-14] MEDS ORDERED: IODIXANOL 320 MG/ML 100 ML VIAL. ONE (08:04)
[2018-10-14] MEDS: CLOPIDOGREL BISULFATE 75 MG TABLET PO SCH (08:30)
[2018-10-14] MEDS: CHOLECALCIFEROL (VITAMIN D3) 1,000 UNIT TABLET PO SCH (09:00)
[2018-10-14] MEDS: FOLIC ACID 1 MG TABLET. PO SCH (09:00)
[2018-10-14] MEDS: FERROUS SULFATE 325 MG TABLET. PO SCH ×2 (09:00→20:03)
[2018-10-14] MEDS ORDERED: fentaNYL PF VIAL 100 MCG/2 ML VIAL ONE (09:24)
[2018-10-14] MEDS ORDERED: MIDAZOLAM HCL/PF 2 MG/2 ML VIAL. ONE ×2 (09:24→09:56)
[2018-10-14] MEDS ORDERED: IODIXANOL 320 MG/ML 100 ML VIAL. IART ONE (10:15)
[2018-10-14] MEDS ORDERED: HEPARIN for IV BOLUS 10,000 UNIT/10 ML VIAL. IART ONE (10:15)
[2018-10-14] MEDS ORDERED: fentaNYL PF VIAL 100 MCG/2 ML VIAL IV ONE (10:15)
[2018-10-14] MEDS ORDERED: MIDAZOLAM HCL/PF 2 MG/2 ML VIAL. IV ONE (10:15)
[2018-10-14] MEDS ORDERED: HEPARIN for IV BOLUS 10,000 UNIT/10 ML VIAL. ONE (10:20)
--- NOTE | 2018-10-14 10:24 | PDOC ---
SUBJECTIVE ROS S/P cardiac cath this am, No complaints OBJECTIVE Vital Signs Vital Signs Date Time Temp Pulse Resp B/P (MAP) Pulse Ox O2 Delivery O2 Flow Rate FiO2 10/14/18 07:00 98.5 68 16 147/67 (93) 100 Room Air 98.5 I & 0 Intake and Output 10/14/18 07:00 Intake Total 1460 ml Output Total 400 ml Balance 1060 ml Intake Oral 680 ml IV Total 780 ml Output Urine Total 400 ml PHYSICAL EXAM Physical Exam General: Alert, Oriented X3, Cooperative, No acute distress HEENT: Atraumatic, PERRLA, EOMI, Mucous membr. moist/pink Lungs: Clear to auscultation Heart: Regular rate Abdomen: Normal bowel sounds, Soft Extremities: No clubbing, No cyanosis Skin: No breakdown Neuro: Normal speech, Sensation intact Psych/Mental Status: Mental status NL, Mood NL MUSCULOSKELETAL: No joint tenderness, No deformity DIAGNOSIS/ASSESSMENT Assessment & Plan ANDREINA - Creat 1.9-2.1 since presentation ? New baseline , Good UOP Continue IVF, Monitor renal function, I/O Supportive care CKD Stage 3 Cr 1.5 @ baseline NSTEMI - s/p cath this am Optimization of medical therapy, intervention on the first obtuse marginal branch if he continues to have symptoms- per cardiology CAD with Afib DM II- Per primary HTN- Cardiology managing Hyperkalemia - Normal K today COMMENT/RELEVANT DATA Meds Current Medications Medications (Trade) Dose Ordered Sig/Jose Start Time Stop Time Status Last Admin Dose Admin Acetaminophen/ Hydrocodone Bitart (Lortab 7.5/325) 1 tab PRN Q6HRS PRN 10/10/18 15:45 Aspirin (Charmaine Aspirin) 325 mg HS 10/10/18 21:00 10/12/18 13:43 DC 10/11/18 20:55 325 MG Aspirin (Children'S Aspirin) 81 mg QHS 10/12/18 21:00 10/13/18 21:45 81 MG Atorvastatin Calcium (Lipitor) 40 mg HS 10/10/18 21:00 10/13/18 21:45 40 MG Clopidogrel Bisulfate (Plavix) 75 mg DAILY 10/11/18 09:00 10/14/18 08:30 75 MG Colestipol HCl (Colestid) 5 gm HS 10/10/18 21:00 10/13/18 21:46 5 GM Dextrose (Dextrose 50%-Water Syringe) 12.5 gm PRN Q15MIN PRN 10/10/18 15:45 Fentanyl Citrate (Fentanyl 2ml Vial) 100 mcg 1X ONCE 10/14/18 10:15 10/14/18 10:16 UNV Ferrous Sulfate (Feosol) 325 mg BID 10/10/18 21:00 10/13/18 21:45 325 MG Folic Acid (Folic Acid) 1 mg DAILY 10/11/18 09:00 10/13/18 07:53 1 MG Heparin Sodium (Porcine) (Heparin Sodium) 2,500 unit 1X ONCE 10/14/18 10:15 10/14/18 10:16 UNV Heparin Sodium/ Dextrose 500 ml @ 20 mls/hr CONT PRN 10/11/18 09:30 10/12/18 17:40 DC 10/11/18 11:22 20 MLS/HR Heparin Sodium/ Sodium Chloride (HEPARIN for ARTERIAL LINE FLUSH) 1,000 unit 1X ONCE 10/14/18 10:15 10/14/18 10:16 UNV Insulin Glargine (Lantus) 4 units QHS 10/10/18 21:00 10/13/18 21:51 4 UNITS Insulin Human Lispro (HumaLOG) 0-5 UNITS TIDWMEALS 10/10/18 17:00 Iodixanol (Visipaque 320) 100 ml 1X ONCE 10/14/18 10:15 10/14/18 10:16 UNV Iohexol (Omnipaque 300 Mg/ml) 100 ml STK-MED ONCE 10/14/18 08:00 10/14/18 08:01 DC Lidocaine HCl (Lidocaine 1% 20ml Vial) 20 ml STK-MED ONCE 10/14/18 08:00 10/14/18 08:01 DC Loperamide HCl (Imodium) 2 mg PRN Q15MIN PRN 10/10/18 20:15 10/10/18 23:08 2 MG Magnesium Sulfate 50 ml @ 25 mls/hr 1X ONCE 10/11/18 08:00 10/11/18 09:59 DC 10/11/18 09:52 25 MLS/HR Midazolam HCl (Versed) 4 mg 1X ONCE 10/14/18 10:15 10/14/18 10:16 UNV Nitroglycerin (Nitrostat) 0.4 mg PRN Q5MIN PRN 10/10/18 10:30 10/10/18 10:32 0.4 MG Ondansetron HCl (Zofran) 4 mg PRN Q8HRS PRN 10/10/18 11:00 10/11/18 10:59 DC Pantoprazole Sodium (Protonix) 40 mg DAILYAC 10/11/18 07:30 10/13/18 07:53 40 MG Sodium Chloride 1,000 ml @ 100 mls/hr Q10H 10/10/18 15:45 10/13/18 17:58 100 MLS/HR Vitamin D (Vitamin D3) 2,000 unit DAILY 10/11/18 09:00 10/13/18 07:53 2,000 UNIT Lab Laboratory Tests Test 10/13/18 11:51 10/13/18 17:13 10/13/18 20:59 10/14/18 06:10 Glucose (Fingerstick) 115 mg/dL (70-99) 102 mg/dL (70-99) 119 mg/dL (70-99) White Blood Count 4.0 x10^3/uL (4.0-11.0) Red Blood Count 2.62 x10^6/uL (4.30-5.70) Hemoglobin 8.8 g/dL (13.0-17.5) Hematocrit 26.9 % (39.0-53.0) Mean Corpuscular Volume 103 fL (79-100) Mean Corpuscular Hemoglobin 34 pg (25-35) Mean Corpuscular Hemoglobin Concent 33 g/dL (31-37) Red Cell Distribution Width 15.5 % (11.5-14.5) Platelet Count 135 x10^3/uL (140-400) Neutrophils (%) (Auto) 65 % (31-73) Lymphocytes (%) (Auto) 19 % (24-48) Monocytes (%) (Auto) 8 % (0-9) Eosinophils (%) (Auto) 8 % (0-3) Basophils (%) (Auto) 1 % (0-3) Neutrophils # (Auto) 2.6 x10^3/uL (1.8-7.7) Lymphocytes # (Auto) 0.8 x10^3/uL (1.0-4.8) Monocytes # (Auto) 0.3 x10^3/uL (0.0-1.1) Eosinophils # (Auto) 0.3 x10^3/uL (0.0-0.7) Basophils # (Auto) 0.0 x10^3/uL (0.0-0.2) Sodium Level 142 mmol/L (136-145) Potassium Level 4.6 mmol/L (3.5-5.1) Chloride Level 109 mmol/L (98-107) Carbon Dioxide Level 21 mmol/L (21-32) Anion Gap 12 (6-14) Blood Urea Nitrogen 19 mg/dL (8-26) Creatinine 2.0 mg/dL (0.7-1.3) Estimated GFR (Cockcroft-Gault) 33.0 Glucose Level 104 mg/dL (70-99) Calcium Level 8.6 mg/dL (8.5-10.1) Test 10/14/18 07:42 Glucose (Fingerstick) 94 mg/dL (70-99) Results All relevant outside records, renal labs, imaging studies, telemetry/EKG's were reviewed. MIMI LUX MD Oct 14, 2018 10:24
[2018-10-14] MEDS ORDERED: HEPARIN for IV BOLUS 10,000 UNIT/10 ML VIAL. IV ONE (10:30)
--- NOTE | 2018-10-14 11:05 | PDOC ---
MODERATE SEDATION ASSESSMENT RISKS/ALTERNATIVES Risks/Alternatives Risks and alternatives of this type of sedation and procedure discussed with: RISK/ALTERNATIVES: Patient H & P ON CHART H & P H & P on chart and reviewed for co-morbid conditions and appropriate labs. H&P ON CHART: Yes STATUS PREG STATUS ASSESSED: N/A MEDS/ALLERGIES REVIEWED Meds/Allergies Reviewed Medications and Allergies including time and route of recently administered narcotics and sedatives. MEDS/ALLERGIES REVIEWED: Yes ASA RATING ASA RATING: III AIRWAY ASSESSMENT Airway Assessment Airway patency, oral function limitations, presence of caps, crowns, dentures, partials, and ability to extend neck assessed. AIRWAY ASSESSMENT: Yes MALLAMPATI SCORE MALLAMPATI SCORE: II PRE-SEDATION ASSESSMENT PRE-SEDATION ASSESSMENT: Yes JUNE RODRIGUES MD Oct 14, 2018 11:05
[2018-10-14] MEDS ORDERED: 0.9 % SODIUM CHLORIDE 10 ML DISP.SYRIN. IV PRN (11:15)
[2018-10-14] MEDS ORDERED: NITROGLYCERIN SUBLINGUAL 0.4 MG BOTTLE OF 25. SL PRN (11:15)
--- NOTE | 2018-10-14 11:41 | CARD ---
MR#: [id number] Date of Study: 10/14/2018 Ordering Physician: CARLINE EARL, Referring Physician: AZUCENA VENTURA, Tech: Kimberly Joaquin APPROVED REPORT Technologist: Kimberly Joaquin Nurse: vIet Fu Procedure(s) performed: 1. Right and left heart catheterization, selective coronary angiography 2. Instant wave free ratio (IFR) measurement to left main coronary artery stenosis fluoro time: 10.3 mins dose: 104 gy/cm2 contrast: 113 ml sedation: 69 min INDICATION The indication(s) include : non-STEMI . [facility] Clinical Frailty Scale [facility] Clinical Frailty Scale: Managing Well Heart Failure Heart Failure: Yes If Yes, Newly Diagnosed: No If Yes, HF Type: Diastolic If Yes, NYHA Class: Class III PROCEDURE NARRATIVE After explaining the risks, benefits and alternative options, informed consent was obtained from lisa ent. Patient was brought to the [facility] Medicare Compliance Auditor and his right groin was prepped and draped in the usu al fashion. 20 mL of 2% lidocaine was infiltrated into the skin and subcutaneous tissues for local an esthesia. Arterial and venous accesses were obtained in the right common femoral artery and vein resp ectively and 6 and 8 Mexican sheaths inserted. A 7.5 Mexican [place]-Crispin catheter was then advanced under fluoroscopy guidance and intracardiac pressures, oxygen saturations and cardiac output by thermodilu tion method measured. Subsequently, 6 Mexican JL4 and 6 Mexican JR4 catheters were used to perform lucrecia ctive angiography of the left and right coronary arteries. Left ventriculography was not performed du e to elevated creatinine level. Since patient was found to have angiographically borderline significa nt stenosis involving left main coronary artery, a decision was made to perform physiologic assessmen t using Instant Wavefree ratio measurement (IFR). The lesion in the left main coronary artery was the n crossed with [place] verrata PressureWire and IFR measurement was made. This was physiologically no t significant at 0.95. Patient tolerated the procedure well. Hemostasis in the right groin was achiev ed using Angio-Seal and manual compression. There were no immediate complications. FINDINGS A. RIGHT HEART CATHETERIZATION 1. Intracardiac pressures: Mean right atrial pressure 18 mmHg, right ventricular pressure 80/9 mmHg , primary artery pressure 76/33 mmHg with mean PA pressure 47 mmHg and pulmonary capillary wedge pres sure 24 mmHg. This is consistent with elevated left-sided filling pressures and moderate pulmonary hy pertension. 2. Oxygen saturations: Right atrium 55.7%, coronary artery 52.6% and femoral arterial sheath 97%. N o evidence of intracardiac shunt. 3. Cardiac output by thermodilution method 5.35 L/m. B. LEFT HEART CATHETERIZATION 1. The left main coronary artery arose from the left sinus of Valsalva, gave rise to the left anteri or descending and left circumflex arteries and showed 40% distal segment stenosis. This was physiolog ically not significant based on IFR measurement of 0.95. 2. The left anterior descending artery showed patent stents in the proximal segment and also the mid to distal segment. 3. The left circumflex artery was a codominant vessel that showed patent stent in the proximal segme nt. The first obtuse marginal branch which is a medium caliber vessel showed 90% in-stent restenosis in the proximal segment. The second obtuse marginal branch which is a good caliber vessel showed 40% in-stent restenosis in the proximal to midsegment. 4. The right coronary artery was a codominant vessel arising from the right sinus of Valsalva that s howed 40% stenosis in the midsegment. Conclusion 1. 40% stenosis involving left main coronary artery, physiologically not significant based on IFR me asurement of 0.95. Also seen were 90% in-stent restenosis involving a medium caliber first obtuse mar ginal branch and 40% in-stent restenosis involving the second obtuse marginal branch. The previously placed stents in the left anterior descending artery were patent. 2. Elevated left-sided filling pressures as evidenced by elevated primary capillary wedge pressure 2 4 mm Hg. Moderate pulmonary hypertension with mean PA pressure 47 mmHg. 3. No evidence of intracardiac shunt. Recommendations Optimization of medical therapy. We will consider intervention on the first obtuse marginal branch if he continues to have symptoms. Signed by : Mohinder Fink, Electronically Approved : 10/14/2018 11:41:04
[2018-10-14] MEDS: HYDROcodone/APAP 7.5/325MG 1 TAB TABLET PO PRN ×2 (14:03→20:02)
[2018-10-14] MEDS: IV NORMAL SALINE 1000ML BAG 1,000 ML IV SCH ×2 (14:03→20:03)
--- NOTE | 2018-10-14 15:58 | NUR ---
SS following up with discharge planning. Pt is currently on room air. PT recommending home with assistance. Nurse navigator met with pt to discuss home healthcare. Pt agreeable to [facility], ;fax [phone], at discharge. SS will continue to follow for discharge planning.
[2018-10-14] MEDS: COLESTIPOL HCL 1 GM TABLET PO SCH (20:01)
[2018-10-14] MEDS: ATORVASTATIN CALCIUM 40 MG TABLET. PO SCH (20:02)
--- NOTE | 2018-10-14 20:13 | NUR ---
REMOVED FEMSTOP FROM RIGHT GROIN. DRIP OF BLOOD APPEARED WHEN REMOVED. PT VERY SENSITIVE IN GROIN AND BACK, GAVE LORTAB. PLACED TRANSPARENT DRESSIN ON R GROIN AND ICE PACK. WILL CONTINUE TO MONITOR. AND NOTIFY CARDIOLOGY. FEMSTOP WAS NOT FILLED WITH AIR JUST LIGHT PRESSURE OF PLACING IT. LCRN
[2018-10-14] MEDS: ASPIRIN CHEWABLE 81 MG TABLET. PO SCH (21:00)
--- NOTE | 2018-10-14 21:40 | NUR ---
SPOKE WITH RAVI ABOUT THE TRICKLE IN RIGHT GROIN, STARTED POST FEMSTOP REMOVED. PER ORDERS GAVE 4MG IV MORPHINE AND HELD PRESSURE FOR 15 MIN. TRANSPARENT HAS BLOOD UNDER IT PRE HOLDING PRESSURE, NO NEW BLOOD. PT IS CALM LCRN
[2018-10-14] MEDS ORDERED: MORPHINE SULFATE 4 MG/ML VIAL. IV ONE (21:45)
[2018-10-14] MEDS: INSULIN GLARGINE 300 UNITS/3 ML INSULN.PEN. SQ SCH (22:13)
[2018-10-15 03:30] VITALS: BP 135/67
[2018-10-15 04:08] LABS: BASO # 0.1 x10^3/uL (0.0-0.2); BASO % 1 % (0-3); EOS # 0.3 x10^3/uL (0.0-0.7); EOS % 7 % (0-3); HEMATOCRIT 24.9 % (39.0-53.0); HEMOGLOBIN 8.3 g/dL (13.0-17.5); LYMPH # 0.9 x10^3/uL (1.0-4.8); LYMPH % 19 % (24-48); MEAN CORPUSCULAR HEMOGLOBIN 34 pg (25-35); MEAN CORPUSCULAR HGB CONC 33 g/dL (31-37); MEAN CORPUSCULAR VOLUME 102 fL (79-100); MONO # 0.4 x10^3/uL (0.0-1.1); MONO % 10 % (0-9); NEUT # 2.8 x10^3/uL (1.8-7.7); NEUT % 63 % (31-73); PLATELET COUNT 135 x10^3/uL (140-400); RED BLOOD COUNT 2.43 x10^6/uL (4.30-5.70); RED CELL DISTRIBUTION WIDTH 15.4 % (11.5-14.5); WHITE BLOOD COUNT 4.5 x10^3/uL (4.0-11.0)
[2018-10-15 04:30] LABS: CALCIUM 8.3 mg/dL (8.5-10.1); CREATININE 1.9 mg/dL (0.7-1.3); POTASSIUM 4.9 mmol/L (3.5-5.1)
[2018-10-15] MEDS: IV NORMAL SALINE 1000ML BAG 1,000 ML IV SCH ×2 (05:45→15:45)
[2018-10-15 07:00] VITALS: BP 148/70
[2018-10-15] MEDS: INSULIN LISPRO 300 UNITS/3 ML INSULN.PEN. SQ SCH ×2 (08:00→12:00)
[2018-10-15] MEDS: PANTOPRAZOLE 40 MG TABLET.DR. PO SCH (08:30)
[2018-10-15] MEDS: FOLIC ACID 1 MG TABLET. PO SCH ×2 (08:30→08:32)
[2018-10-15] MEDS: FERROUS SULFATE 325 MG TABLET. PO SCH (08:30)
[2018-10-15] MEDS: CLOPIDOGREL BISULFATE 75 MG TABLET PO SCH (08:30)
[2018-10-15] MEDS: CHOLECALCIFEROL (VITAMIN D3) 1,000 UNIT TABLET PO SCH (08:31)
--- NOTE | 2018-10-15 09:44 | PDOC ---
[facility] [facility] PROGRESS NOTE Chief Complaint Chief Complaint Post-op day 1 Cardiac Cath (no new stent placement) Acute SOB Probable AMI Chest pain w/ elevated troponin Old hx of coronary disease (9 prior stents) Acute renal failure History of Present Illness History of Present Illness 10-15-18 Pt seen and examined Pt appears SOB DW pt regarding care DW RN regarding care Reviewed chart Vitals/I&O Vitals/I&O: Vital Signs Date Time Temp Pulse Resp B/P (MAP) Pulse Ox O2 Delivery O2 Flow Rate FiO2 10/15/18 07:00 98.3 69 16 148/70 (96) 100 Room Air 98.3 10/15/18 03:30 2.0 I & O 10/14/18 10/14/18 10/15/18 15:00 23:00 07:00 Intake Total 1200 ml Output Total 225 ml 575 ml Balance -225 ml 625 ml Physical Exam Physical Exam: Pt has a clean dry wound in the R groin (from cardiac cath through R femoral vein) General: Alert, Oriented X3, Cooperative, No acute distress Heart: Regular rate, Normal S1, Normal S2, Other (mitral systolic ejection murmur) Lungs: Clear, Other Abdomen: Normal bowel sounds, Soft Extremities: No clubbing, No cyanosis Skin: No rashes, No breakdown Labs Labs: Laboratory Tests Test 10/14/18 12:00 10/14/18 17:05 10/14/18 20:47 10/15/18 03:40 Glucose (Fingerstick) 95 mg/dL (70-99) 88 mg/dL (70-99) 152 mg/dL (70-99) White Blood Count 4.5 x10^3/uL (4.0-11.0) Red Blood Count 2.43 x10^6/uL (4.30-5.70) Hemoglobin 8.3 g/dL (13.0-17.5) Hematocrit 24.9 % (39.0-53.0) Mean Corpuscular Volume 102 fL (79-100) Mean Corpuscular Hemoglobin 34 pg (25-35) Mean Corpuscular Hemoglobin Concent 33 g/dL (31-37) Red Cell Distribution Width 15.4 % (11.5-14.5) Platelet Count 135 x10^3/uL (140-400) Neutrophils (%) (Auto) 63 % (31-73) Lymphocytes (%) (Auto) 19 % (24-48) Monocytes (%) (Auto) 10 % (0-9) Eosinophils (%) (Auto) 7 % (0-3) Basophils (%) (Auto) 1 % (0-3) Neutrophils # (Auto) 2.8 x10^3/uL (1.8-7.7) Lymphocytes # (Auto) 0.9 x10^3/uL (1.0-4.8) Monocytes # (Auto) 0.4 x10^3/uL (0.0-1.1) Eosinophils # (Auto) 0.3 x10^3/uL (0.0-0.7) Basophils # (Auto) 0.1 x10^3/uL (0.0-0.2) Sodium Level 139 mmol/L (136-145) Potassium Level 4.9 mmol/L (3.5-5.1) Chloride Level 109 mmol/L (98-107) Carbon Dioxide Level 20 mmol/L (21-32) Anion Gap 10 (6-14) Blood Urea Nitrogen 18 mg/dL (8-26) Creatinine 1.9 mg/dL (0.7-1.3) Estimated GFR (Cockcroft-Gault) 35.0 Glucose Level 94 mg/dL (70-99) Calcium Level 8.3 mg/dL (8.5-10.1) Test 10/15/18 07:26 Glucose (Fingerstick) 101 mg/dL (70-99) Review of Systems Review of Systems: Pt admits to SOB Pt has no c/o headache Pt has no c/o CP Assessment and Plan Assessmemt and Plan Problems Medical Problems: (1) Chest pain Status: Acute (2) Renal failure Status: Acute Assessment Post-op day 1 Cardiac Cath (no new stent placement) Acute SOB Probable AMI Chest pain w/ elevated troponin Old hx of coronary disease (9 prior stents) Acute renal failure 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 Medications: Current Medications Medications (Trade) Dose Ordered Sig/Jose Route PRN Reason Start Time Stop Time Status Last Admin Dose Admin Midazolam HCl (Versed) 4 mg 1X ONCE IV 10/14/18 10:15 10/14/18 10:19 DC 10/14/18 10:15 Fentanyl Citrate (Fentanyl 2ml Vial) 100 mcg 1X ONCE IV 10/14/18 10:15 10/14/18 10:19 DC 10/14/18 10:15 Iodixanol (Visipaque 320) 100 ml 1X ONCE IART 10/14/18 10:15 10/14/18 10:19 DC 10/14/18 10:15 Heparin Sodium/ Sodium Chloride (HEPARIN for ARTERIAL LINE FLUSH) 1,000 unit 1X ONCE IART 10/14/18 10:15 10/14/18 10:19 DC 10/14/18 10:15 Heparin Sodium (Porcine) (Heparin Sodium) 5,000 unit 1X ONCE IV 10/14/18 10:30 10/14/18 10:31 DC 10/14/18 10:30 Morphine Sulfate (Morphine Sulfate) 4 mg 1X ONCE IV 10/14/18 21:45 10/14/18 21:46 DC 10/14/18 21:44 JESSICA RAMIREZ III DO Oct 15, 2018 09:44
--- NOTE | 2018-10-15 09:48 | PDOC ---
SUBJECTIVE ROS S/P cardiac cath 10/14 , No complaints OBJECTIVE Vital Signs Vital Signs Date Time Temp Pulse Resp B/P (MAP) Pulse Ox O2 Delivery O2 Flow Rate FiO2 10/15/18 08:00 Nasal Cannula 2.0 10/15/18 07:00 98.3 69 16 148/70 (96) 100 98.3 I & 0 Intake and Output 10/15/18 06:59 Intake Total 1200 ml Output Total 800 ml Balance 400 ml Intake Oral 200 ml IV Total 1000 ml Output Urine Total 800 ml PHYSICAL EXAM Physical Exam General: Alert, Oriented X3, Cooperative, No acute distress HEENT: Atraumatic, PERRLA, EOMI, Mucous membr. moist/pink Lungs: Clear to auscultation Heart: Regular rate Abdomen: Normal bowel sounds, Soft Extremities: No clubbing, No cyanosis Skin: No breakdown Neuro: Grossly Normal DIAGNOSIS/ASSESSMENT Assessment & Plan ANDREINA - Creat 1.9-2.1 since presentation ? New baseline , Good UOP Stable renal function , BMP in 1 week with PCP Follows with Dr. Lopez - Had appt scheduled for Sunday last week - he was in patient Dw Pt and to call Office to make fu appt CKD Stage 3 Cr 1.5 @ baseline NSTEMI - s/p cath this am Optimization of medical therapy, intervention on the first obtuse marginal branch if he continues to have symptoms- per cardiology CAD with Afib DM II- Per primary HTN- Cardiology managing Hyperkalemia - Normal K today COMMENT/RELEVANT DATA Meds Current Medications Medications (Trade) Dose Ordered Sig/Jose Start Time Stop Time Status Last Admin Dose Admin Acetaminophen/ Hydrocodone Bitart (Lortab 7.5/325) 1 tab PRN Q6HRS PRN 10/10/18 15:45 10/14/18 20:02 1 TAB Aspirin (Charmaine Aspirin) 325 mg HS 10/10/18 21:00 10/12/18 13:43 DC 10/11/18 20:55 325 MG Aspirin (Children'S Aspirin) 81 mg QHS 10/12/18 21:00 10/13/18 21:45 81 MG Atorvastatin Calcium (Lipitor) 40 mg HS 10/10/18 21:00 10/14/18 20:02 40 MG Clopidogrel Bisulfate (Plavix) 75 mg DAILY 10/11/18 09:00 10/15/18 08:30 75 MG Colestipol HCl (Colestid) 5 gm HS 10/10/18 21:00 10/14/18 20:01 5 GM Dextrose (Dextrose 50%-Water Syringe) 12.5 gm PRN Q15MIN PRN 10/10/18 15:45 Fentanyl Citrate (Fentanyl 2ml Vial) 100 mcg 1X ONCE 10/14/18 10:15 10/14/18 10:19 DC 10/14/18 10:15 100 MCG Ferrous Sulfate (Feosol) 325 mg BID 10/10/18 21:00 10/15/18 08:30 325 MG Folic Acid (Folic Acid) 1 mg DAILY 10/11/18 09:00 10/13/18 07:53 1 MG Heparin Sodium (Porcine) (Heparin Sodium) 5,000 unit 1X ONCE 10/14/18 10:30 10/14/18 10:31 DC 10/14/18 10:30 5,000 UNIT Heparin Sodium/ Dextrose 500 ml @ 20 mls/hr CONT PRN 10/11/18 09:30 10/12/18 17:40 DC 10/11/18 11:22 20 MLS/HR Heparin Sodium/ Sodium Chloride (HEPARIN for ARTERIAL LINE FLUSH) 1,000 unit 1X ONCE 10/14/18 10:15 10/14/18 10:19 DC 10/14/18 10:15 1,000 UNIT Insulin Glargine (Lantus) 4 units QHS 10/10/18 21:00 10/14/18 22:13 4 UNITS Insulin Human Lispro (HumaLOG) 0-5 UNITS TIDWMEALS 10/10/18 17:00 Iodixanol (Visipaque 320) 100 ml 1X ONCE 10/14/18 10:15 10/14/18 10:19 DC 10/14/18 10:15 113 ML Iohexol (Omnipaque 300 Mg/ml) 100 ml STK-MED ONCE 10/14/18 08:00 10/14/18 08:01 DC Lidocaine HCl (Lidocaine 1% 20ml Vial) 20 ml STK-MED ONCE 10/14/18 08:00 10/14/18 08:01 DC Loperamide HCl (Imodium) 2 mg PRN Q15MIN PRN 10/10/18 20:15 10/10/18 23:08 2 MG Magnesium Sulfate 50 ml @ 25 mls/hr 1X ONCE 10/11/18 08:00 10/11/18 09:59 DC 10/11/18 09:52 25 MLS/HR Midazolam HCl (Versed) 4 mg 1X ONCE 10/14/18 10:15 10/14/18 10:19 DC 10/14/18 10:15 4 MG Morphine Sulfate (Morphine Sulfate) 4 mg 1X ONCE 10/14/18 21:45 10/14/18 21:46 DC 10/14/18 21:44 4 MG Nitroglycerin (Nitrostat) 0.4 mg PRN Q5MIN PRN 10/14/18 11:15 Ondansetron HCl (Zofran) 4 mg PRN Q8HRS PRN 10/10/18 11:00 10/11/18 10:59 DC Pantoprazole Sodium (Protonix) 40 mg DAILYAC 10/11/18 07:30 10/15/18 08:30 40 MG Sodium Chloride (Normal Saline Flush) 3 ml QSHIFT PRN 10/14/18 11:15 Vitamin D (Vitamin D3) 2,000 unit DAILY 10/11/18 09:00 10/15/18 08:31 2,000 UNIT Lab Laboratory Tests Test 10/14/18 12:00 10/14/18 17:05 10/14/18 20:47 10/15/18 03:40 Glucose (Fingerstick) 95 mg/dL (70-99) 88 mg/dL (70-99) 152 mg/dL (70-99) White Blood Count 4.5 x10^3/uL (4.0-11.0) Red Blood Count 2.43 x10^6/uL (4.30-5.70) Hemoglobin 8.3 g/dL (13.0-17.5) Hematocrit 24.9 % (39.0-53.0) Mean Corpuscular Volume 102 fL (79-100) Mean Corpuscular Hemoglobin 34 pg (25-35) Mean Corpuscular Hemoglobin Concent 33 g/dL (31-37) Red Cell Distribution Width 15.4 % (11.5-14.5) Platelet Count 135 x10^3/uL (140-400) Neutrophils (%) (Auto) 63 % (31-73) Lymphocytes (%) (Auto) 19 % (24-48) Monocytes (%) (Auto) 10 % (0-9) Eosinophils (%) (Auto) 7 % (0-3) Basophils (%) (Auto) 1 % (0-3) Neutrophils # (Auto) 2.8 x10^3/uL (1.8-7.7) Lymphocytes # (Auto) 0.9 x10^3/uL (1.0-4.8) Monocytes # (Auto) 0.4 x10^3/uL (0.0-1.1) Eosinophils # (Auto) 0.3 x10^3/uL (0.0-0.7) Basophils # (Auto) 0.1 x10^3/uL (0.0-0.2) Sodium Level 139 mmol/L (136-145) Potassium Level 4.9 mmol/L (3.5-5.1) Chloride Level 109 mmol/L (98-107) Carbon Dioxide Level 20 mmol/L (21-32) Anion Gap 10 (6-14) Blood Urea Nitrogen 18 mg/dL (8-26) Creatinine 1.9 mg/dL (0.7-1.3) Estimated GFR (Cockcroft-Gault) 35.0 Glucose Level 94 mg/dL (70-99) Calcium Level 8.3 mg/dL (8.5-10.1) Test 10/15/18 07:26 Glucose (Fingerstick) 101 mg/dL (70-99) Results All relevant outside records, renal labs, imaging studies, telemetry/EKG's were reviewed. MIMI LUX MD Oct 15, 2018 09:48
[2018-10-15 11:00] VITALS: BP 125/68
--- NOTE | 2018-10-15 12:13 | SNU/HH DC ---
DISCHARGE WITH HOME HEALTH DISCHARGE INFORMATION: Final Diagnosis: Problems Medical Problems: (1) Chest pain Status: Acute (2) Renal failure Status: Acute Condition on Discharge: Stable CODE STATUS: Code Status: Full HOME HEALTH: Face to Face: I certify this patient is under my care and that I, or a nurse practitioner or physician's program services assistant working with me, had a face to face encounter that meets the physician face to face encounter requirements with this patient on []. Medical Complications: CHF Jail For: Assess & Educate Safety RN For Eval/Treatment: Yes Physical Therapy For: Evalulation/Treatment Occupational Therapy For: Evaluation/Treatment Home Health Aide For: Self-care ELECTRICAL PROSPECTING ENGINEER For: Community Resources Pt Meets Homebound Status: Poor coordination w/ amb. POST DISCHARGE ORDERS: Activity Instructions for Disc: Activity as tolerated Weight Bearing Status after Di: As tolerated DIET AFTER DISCHARGE: Cardiac Wound/Incision Care: Reinforce dressing PRN CHECKS AFTER DISCHARGE: Checks after discharge: Check blood press - daily, Weigh Yourself Daily CERTIFICATION STATEMENT: Certification Statement: Certification Statement: Based on the above finding, I certify that this patient is confined to the home and needs intermittent retirement care, physical therapy and/or speech therapy, or continues to need occupational therapy.~ This patient is under my care, and I have initiated the establishment of the plan of care.~ This patient will be followed by myself or a community physician who will periodically review the plan of care. Home Meds Reported Medications Lisinopril (LISINOPRIL) 20 Mg Tablet, 1 TAB PO DAILY, #30 TAB 5 Refills 12/26/17 Clopidogrel Bisulfate (CLOPIDOGREL) 75 Mg Tablet, 1 TAB PO DAILY, #90 TAB 1 Refill 12/26/17 Metformin Hcl (METFORMIN HCL) 500 Mg Tablet, 500 MG PO BIDWMEALS for ANTI- DIABETIC, TAB 0 Refills 12/22/17 Ferrous Sulfate (FERROUS SULFATE) 325 Mg Tablet, 1 TAB PO BID, #60 TAB 3 Refills 07/11/17 Cyanocobalamin (Vitamin B-12) (CYANOCOBALAMIN INJECTION) 1,000 Mcg/1 Ml Vial, 1000 MCG IJ QMONTH, EACH 07/11/17 Aspirin (ASPIRIN) 325 Mg Tablet, 1 TAB PO HS, #90 TAB 3 Refills 07/11/17 Hydrocodone Bit/Acetaminophen (HYDROCODONE-APAP 7.5-325 ) 1 Each Tablet, 1 TAB PO PRN Q6HRS PRN for PAIN, TAB 0 Refills 07/11/17 Gabapentin (GABAPENTIN ) 400 Mg Capsule, 1200 MG PO BID, CAP 07/11/17 Cholecalciferol (Vitamin D3) (VITAMIN D3) 1,000 Unit Tablet, 2000 UNIT PO, TAB 01/15/17 Adalimumab (HUMIRA) 40 Mg/0.8 Ml Pen.ij.kit, 1 SYR SQ Q2WKS, #6 SYR 3 Refills 01/15/17 Omeprazole (OMEPRAZOLE) 40 Mg Capsule.dr, 1 CAP PO DAILY, #30 CAP 3 Refills 01/15/17 Cholestyramine (With Sugar) (CHOLESTYRAMINE PACKET) 4 Gm Powd.pack, 4 GM PO, PKT 01/15/17 Folic Acid (FOLIC ACID) 1 Mg Tablet, 1 TAB PO DAILY, #90 TAB 1 Refill 01/15/17 Atorvastatin Calcium (ATORVASTATIN CALCIUM) 40 Mg Tablet, 1 TAB PO HS, #30 TAB 5 Refills 01/15/17 Discontinued Reported Medications Apixaban (ELIQUIS) 5 Mg Tablet, 5 MG PO BID, TAB 12/26/17 JESSICA RAMIREZ III DO Oct 15, 2018 12:13
--- NOTE | 2018-10-15 13:00 | NUR ---
SS following up with discharge planning. Discharge orders and clinical phoned and faxed to [facility], ; fax [phone]. Pt's RN notified.
[2018-10-15 15:00] VITALS: BP 146/76
[2018-10-15] MEDS ORDERED: APIX5TAB PO (15:50)
[2018-10-15] MEDS ORDERED: ISOS20TA2 PO (15:51)
[2018-10-15] MEDS ORDERED: ASPI-630 PO (16:09)
--- NOTE | 2018-10-15 16:13 | PDOC ---
ADRIANNA RICE SALES AND CATERING COORDINATOR 10/15/18 1613: CARDIO Progress Notes Date and Time Date of Service 10/15/2018 Time of Evaluation 1530 Subjective Subjective: No shortness of breath, No Palpitations, Other (mild chest tightness with exertion easily relieved with rest. ) Vitals Vitals Vital Signs Date Time Temp Pulse Resp B/P (MAP) Pulse Ox O2 Delivery O2 Flow Rate FiO2 10/15/18 15:00 99.2 80 16 146/76 (99) 98 Room Air 99.2 10/15/18 08:00 2.0 Weight Weight [ ] Input and Output Intake and Output Intake and Output 10/15/18 06:59 Intake Total 1200 ml Output Total 800 ml Balance 400 ml Intake Oral 200 ml IV Total 1000 ml Output Urine Total 800 ml Laboratory Labs Laboratory Tests Test 10/14/18 17:05 10/14/18 20:47 10/15/18 03:40 10/15/18 07:26 Glucose (Fingerstick) 88 mg/dL (70-99) 152 mg/dL (70-99) 101 mg/dL (70-99) White Blood Count 4.5 x10^3/uL (4.0-11.0) Red Blood Count 2.43 x10^6/uL (4.30-5.70) Hemoglobin 8.3 g/dL (13.0-17.5) Hematocrit 24.9 % (39.0-53.0) Mean Corpuscular Volume 102 fL (79-100) Mean Corpuscular Hemoglobin 34 pg (25-35) Mean Corpuscular Hemoglobin Concent 33 g/dL (31-37) Red Cell Distribution Width 15.4 % (11.5-14.5) Platelet Count 135 x10^3/uL (140-400) Neutrophils (%) (Auto) 63 % (31-73) Lymphocytes (%) (Auto) 19 % (24-48) Monocytes (%) (Auto) 10 % (0-9) Eosinophils (%) (Auto) 7 % (0-3) Basophils (%) (Auto) 1 % (0-3) Neutrophils # (Auto) 2.8 x10^3/uL (1.8-7.7) Lymphocytes # (Auto) 0.9 x10^3/uL (1.0-4.8) Monocytes # (Auto) 0.4 x10^3/uL (0.0-1.1) Eosinophils # (Auto) 0.3 x10^3/uL (0.0-0.7) Basophils # (Auto) 0.1 x10^3/uL (0.0-0.2) Sodium Level 139 mmol/L (136-145) Potassium Level 4.9 mmol/L (3.5-5.1) Chloride Level 109 mmol/L (98-107) Carbon Dioxide Level 20 mmol/L (21-32) Anion Gap 10 (6-14) Blood Urea Nitrogen 18 mg/dL (8-26) Creatinine 1.9 mg/dL (0.7-1.3) Estimated GFR (Cockcroft-Gault) 35.0 Glucose Level 94 mg/dL (70-99) Calcium Level 8.3 mg/dL (8.5-10.1) Test 10/15/18 11:55 Glucose (Fingerstick) 114 mg/dL (70-99) Physical Exam HEENT: Neck Supple W Full Motion Chest: Symmetric LUNGS: Clear to Auscultation Heart: S1S2, murmurs (5/6 systolic murmur to LLS border), irregularly irregular (AFIB) Abdomen: Soft N/T Extremities: No Calf Tenderness Neurology: alert, oriented, follow commands Assessment Assessment 1. NSTEMI: peaked trop at 1. possible vasopasm component in addition. see cath report, no intervention 2. CAD s/p multiple past PCIs 3. Permanent AFIB: rate controlled 4. Moderate : EF 50% with mild apical hypokinesis 5. HTN: controlled 6. DM2/HLP 7. Crohn's Disease; chronic immunosuppression with Imuran 8. CKD3: improving 9. Valvular insufficiency: mild MR and mod to severe TR 10. Asymptomatic bradycardia: 40-50s Recommendations 1. Secondary prevention measures including with ASA 81mg and Plavix 2. Restart eliquis for stroke prevention 3. Low dose ACEI/ARB when ok with renal 4. No AV peter blocking agents. 5. Will optimize antianginal regimen. Add imdur and will consider renexa as an outpt. 6. Though compliant with colestipol time ingestion will likely need alternative to diminish any possibility med binding. JUNE RODRIGUES MD 10/15/18 1701: CARDIO Progress Notes Assessment Assessment Patient seen and examined. Agree with SUBJECT SCIENTIFIC RESEARCH's assessment and plan Cardiac catheterization yesterday did not show any lesions needing intervention Plan for optimizing antianginal therapy and consider PCI to OM if he continues to be symptomatic Permanent atrial fibrillation rate controlled Decrease aspirin dose to 81 mg daily and add Imdur 60 mg daily Follow-up with our office in 2-4 weeks ADRIANNA RICE APRN Oct 15, 2018 16:13 JUNE RODRIGUES MD Oct 15, 2018 17:01
[2018-10-15] MEDS ORDERED: APIXABAN 5 MG TABLET. PO SCH (17:00)
--- NOTE | 2018-10-15 17:08 | NUR ---
Discharge Note: JESSE MCGEE Discharge instructions and discharge home medications reviewed with Patient and a copy given. All questions have been answered and understanding verbalized. Prescription called into [facility] pharmacy for Imdur 60 mg PO daily. The following instructions and handouts were given: post cardiac cath instructions
--- NOTE | 2018-10-16 12:13 | DS ---
DATE OF DISCHARGE: 10/15/2018 ADMISSION DIAGNOSIS: Chest pain. DISCHARGE DIAGNOSIS: Resolving chest pain (I suspect he has chronic angina. He does have 9 previous stents. He did not require a new stent at this time, although he did go to director of labor and delivery). HOSPITAL COURSE: The patient is a pleasant 72-year-old male, who presented with chest pain. He has 9 previous stents. He was admitted. We consulted Cardiology. He did go to the director of labor and delivery, but no new stents were placed. He was doing well yesterday. We discharged to home. DISPOSITION: Home. ACTIVITY: As tolerated. DIET: Cardiac. MEDICATIONS: Please see the MRAD. TOTAL TIME: 32 minutes. JESSICA RAMIREZ DO DR: SANTIAGO/meagan JOB#: [id number] / [id number]
== END 2018-10-15 17:09 | disposition home health service (06) | DRG 280 ==
LOC: ER 10:07 → 2 SOUTH 10:55
PROVIDERS: ADMIT Internal Medicine; ATTEND Internal Medicine
PROC: 4A023N8 Measurement of Cardiac Sampling and Pressure, Bilateral, Percutaneous Approach (ICD-10-PCS; principal; 2018-10-14)
PROC: B2111ZZ Fluoroscopy of Multiple Coronary Arteries using Low Osmolar Contrast (ICD-10-PCS; 2018-10-14)
PROC: 4A033BC Measurement of Arterial Pressure, Coronary, Percutaneous Approach (ICD-10-PCS; 2018-10-14)
DX: T82.855A Stenosis of coronary artery stent, initial encounter (principal); I21.4 Non-ST elevation (NSTEMI) myocardial infarction; N17.0 Acute kidney failure with tubular necrosis; K50.90 Crohn's disease, unspecified, without complications; I25.110 Atherosclerotic heart disease of native coronary artery with unstable angina pectoris; E78.00 Pure hypercholesterolemia, unspecified; E11.22 Type 2 diabetes mellitus with diabetic chronic kidney disease; E11.51 Type 2 diabetes mellitus with diabetic peripheral angiopathy without gangrene; N18.3 Chronic kidney disease, stage 3 (moderate); I12.9 Hypertensive chronic kidney disease with stage 1 through stage 4 chronic kidney disease, or unspecified chronic kidney disease; I48.2 Chronic atrial fibrillation; G47.30 Sleep apnea, unspecified; M19.90 Unspecified osteoarthritis, unspecified site; E87.5 Hyperkalemia; I27.20 Pulmonary hypertension, unspecified; D50.9 Iron deficiency anemia, unspecified; E83.42 Hypomagnesemia; D72.819 Decreased white blood cell count, unspecified; I08.3 Combined rheumatic disorders of mitral, aortic and tricuspid valves; R00.1 Bradycardia, unspecified; E78.5 Hyperlipidemia, unspecified; D63.8 Anemia in other chronic diseases classified elsewhere; Y83.8 Other surgical procedures as the cause of abnormal reaction of the patient, or of later complication, without mention of misadventure at the time of the procedure; Y92.89 Other specified places as the place of occurrence of the external cause; Z79.01 Long term (current) use of anticoagulants; Z88.6 Allergy status to analgesic agent; Z88.8 Allergy status to other drugs, medicaments and biological substances; Z82.49 Family history of ischemic heart disease and other diseases of the circulatory system; Z90.49 Acquired absence of other specified parts of digestive tract; Z95.5 Presence of coronary angioplasty implant and graft
CPT/HCPCS: 93456; 93571; G0269; 36415; 71045; 76770; 80048; 80053; 80061; 81001; 82550; 82553; 82962; 83690; 83735; 83880; 84443; 84484; 85025; 85520; 85610; 85730; 93005; 93306; 99152; 99153; C1760; C1769; C1773; C1892; J1644; J1815; J2250; J2270; J3010; J3475; J7030; Q9967; 99285-25; C1771

== ENCOUNTER → 2019-03-25 | Outpatient (CLI) | payer MEDICARE, OTHER ==
[2019-02-08 19:00] VITALS: BP 124/82
[~2019-03-25] MED LIST changes: +ALBU2.5V8 NEB; +ASPI-630 PO; +COLE1TAB2 PO; -HYDR1TAB14 PO; +HYDR1TAB15 PO; +ISOS20TA2 PO; +LOPE-101 PO; -LOPE2CAP88 PO; +OMEP40CA45 PO; -OMEP40CA5 PO; +SODI650T PO; +TORS20TA2 PO; +WARF2.5T71 PO
[2019-03-25 12:42] LABS: BASO # 0.1 x10^3/uL (0.0-0.2); BASO % 1 % (0-3); EOS # 0.3 x10^3/uL (0.0-0.7); EOS % 6 % (0-3); HEMATOCRIT 31.8 % (39.0-53.0); HEMOGLOBIN 10.3 g/dL (13.0-17.5); LYMPH # 0.7 x10^3/uL (1.0-4.8); LYMPH % 14 % (24-48); MEAN CORPUSCULAR HEMOGLOBIN 30 pg (25-35); MEAN CORPUSCULAR HGB CONC 33 g/dL (31-37); MEAN CORPUSCULAR VOLUME 93 fL (79-100); MONO # 0.5 x10^3/uL (0.0-1.1); MONO % 9 % (0-9); NEUT # 3.6 x10^3/uL (1.8-7.7); NEUT % 71 % (31-73); PLATELET COUNT 206 x10^3/uL (140-400); RED BLOOD COUNT 3.41 x10^6/uL (4.30-5.70); WHITE BLOOD COUNT 5.2 x10^3/uL (4.0-11.0)
[2019-03-25 12:52] LABS: PROTHROMBIN TIME PATIENT 22.8 SEC (11.7-14.0)
--- NOTE | 2019-03-25 16:58 | RAD ---
EXAM: Chest, 2 views. HISTORY: Pleural effusion. COMPARISON: 02/08/2019 FINDINGS: 2 views of the chest are obtained. There is a moderate left pleural effusion with left lower lobe and lingular infiltrate or atelectasis. There is enlargement of the cardiac silhouette. There are median sternotomy wires and there is an aortic valve prosthesis. There is lumbar fusion instrumentation and there are degenerative changes throughout the spine. IMPRESSION: 1. Moderate left pleural effusion with lingular and left lower lobe atelectasis or infiltrate. 2. Cardiomegaly. Electronically signed by: Teri Sepulveda MD (03/25/2019 4:55 PM) [place] [id number]
== END | disposition home or self-care (01) ==
LOC: RAD 12:17
PROVIDERS: ATTEND Internal Medicine Pulmonary Disease
DX: J90 Pleural effusion, not elsewhere classified (principal); I51.7 Cardiomegaly
CPT/HCPCS: 36415; 71046; 85025; 85610

== ENCOUNTER 2019-03-28 09:58 | Outpatient (CLI) | payer MEDICARE, OTHER ==
[2019-03-28] VITALS (10 sets, daily range): BP systolic 115–169; BP diastolic 51–101
[~2019-03-28] VITALS: Ht 177.8 cm; Wt 104.3 kg
[~2019-03-28 09:58] MED LIST changes: -TORS20TA2 PO; -WARF2.5T71 PO
[2019-03-28 10:32] LABS: BASO # 0.1 x10^3/uL (0.0-0.2); BASO % 2 % (0-3); EOS # 0.4 x10^3/uL (0.0-0.7); EOS % 8 % (0-3); HEMATOCRIT 32.5 % (39.0-53.0); HEMOGLOBIN 10.3 g/dL (13.0-17.5); LYMPH # 0.6 x10^3/uL (1.0-4.8); LYMPH % 13 % (24-48); MEAN CORPUSCULAR HEMOGLOBIN 30 pg (25-35); MEAN CORPUSCULAR HGB CONC 32 g/dL (31-37); MEAN CORPUSCULAR VOLUME 94 fL (79-100); MONO # 0.4 x10^3/uL (0.0-1.1); MONO % 9 % (0-9); NEUT # 3.2 x10^3/uL (1.8-7.7); NEUT % 69 % (31-73); PLATELET COUNT 186 x10^3/uL (140-400); RED BLOOD COUNT 3.44 x10^6/uL (4.30-5.70); RED CELL DISTRIBUTION WIDTH 15.3 % (11.5-14.5); WHITE BLOOD COUNT 4.6 x10^3/uL (4.0-11.0)
[2019-03-28] MEDS ORDERED: WARF2.5T71 PO (10:34)
[2019-03-28] MEDS ORDERED: GABA600T7 PO (10:34)
[2019-03-28] MEDS ORDERED: LISI-334 PO (10:34)
[2019-03-28] MEDS ORDERED: ADAL40PE SQ (10:34)
[2019-03-28] MEDS ORDERED: TORS20TA2 PO (10:37)
[2019-03-28 10:42] LABS: PROTHROMBIN TIME PATIENT 20.8 SEC (11.7-14.0)
--- NOTE | 2019-03-28 12:30 | NUR ---
Discharge Note: JESSE MCGEE Discharge instructions and discharge home medications reviewed with Patient and a copy given. All questions have been answered and understanding verbalized. Patient ate lunch without any difficulties. The following instructions and handouts were given: Thoracentesis. Discontinued lines and drains: No IV for this visit. Patient discharged to home with via private vehicle.
--- NOTE | 2019-03-28 13:48 | RAD ---
Single view of the chest. 03/28/2019 12:30 PM Indication: Postthoracentesis Comparison: Chest radiographs March 25, 2019 Findings: Minimal residual left pleural fluid and basilar atelectasis persists. No pneumothorax is seen. Right lung remains clear. Postoperative changes following coronary bypass surgery, and aortic valve replacement noted. No acute osseous changes are seen. Impression: Minimal residual left pleural effusion and basilar atelectasis. Electronically signed by: Rashel Mccoy MD (03/28/2019 1:45 PM) [id number]
--- NOTE | 2019-03-28 16:12 | RAD ---
Ultrasound-guided right-sided thoracentesis 03/28/2019 2:08 PM Indication: Left Pleural Effusion Procedure: Informed consent was obtained. A timeout procedure was performed. Sonographic evaluation of the left chest was performed demonstrating large left pleural effusion. The left posterior chest was prepped and draped in sterile fashion. 1% lidocaine without epinephrine was administered for local anesthesia. Real-time ultrasonographic guidance was used in passing a 5 [place] [employer]aw[employer] catheter into the left pleural space. 1.7 L of Serosanguineous pleural fluid was removed. Samples of fluid were sent to the lab for further evaluation per ordering physician request. The catheter was removed and pressure held to achieve hemostasis. A sterile dressing was applied. No immediate complications were identified. The patient tolerated the procedure well. Impression: Ultrasound-guided left-sided thoracentesis
== END 2019-03-28 13:30 | disposition home or self-care (01) ==
LOC: INTRAD 09:58
PROVIDERS: ATTEND Internal Medicine Pulmonary Disease
DX: J90 Pleural effusion, not elsewhere classified (principal)
CPT/HCPCS: 32555; 36415; 71045; 85025; 85610

== ENCOUNTER → 2019-04-02 | Outpatient (CLI) | payer MEDICARE, OTHER ==
[2019-03-28 13:05] VITALS: BP 149/60
[~2019-04-02] MED LIST changes: +TORS20TA2 PO; +WARF2.5T71 PO
--- NOTE | 2019-04-02 16:21 | KCIC ---
Chest, PA and Lateral: Technique: PA and lateral views of the chest were obtained. History: Pleural effusion. Comparison: 03/28/2019. Findings: Low lung volumes accentuates heart size and pulmonary vascularity. Small left lower lobe lung airspace opacity/infiltrate or effusion identified. Moderate degenerative changes thoracic spine. Prosthetic heart valve identified. IMPRESSION: 1. Small left lower lobe lung airspace opacity/infiltrate or effusion identified. Electronically signed by: Aime Carolina MD (04/02/2019 4:18 PM) [id number]
== END | disposition home or self-care (01) ==
LOC: KCIC 13:22
PROVIDERS: ATTEND Internal Medicine Pulmonary Disease
DX: J90 Pleural effusion, not elsewhere classified (principal); Z95.2 Presence of prosthetic heart valve
CPT/HCPCS: 71046

== ENCOUNTER → 2019-04-07 | Outpatient (CLI) | payer MEDICARE, OTHER ==
[~2019-04-07] MED LIST changes: +FERRIC CARBOXYMALTOSE 750 MG in IV NORMAL SALINE 250ML 250 ML IV ONE
[2019-04-07 13:08] VITALS: BP 174/78
== END | disposition home or self-care (01) ==
LOC: OPS 12:47
PROVIDERS: ATTEND Internal Medicine Nephrology
DX: N18.3 Chronic kidney disease, stage 3 (moderate) (principal); D63.1 Anemia in chronic kidney disease; D50.9 Iron deficiency anemia, unspecified; J90 Pleural effusion, not elsewhere classified
CPT/HCPCS: 96365; J1439; J7050; J7030

== ENCOUNTER 2019-04-09 13:02 | Emergency (ER) | payer MEDICARE, OTHER ==
[~2019-04-09] VITALS: Ht 177.8 cm; Wt 107.0 kg
[~2019-04-09 13:02] MED LIST changes: -FERRIC CARBOXYMALTOSE 750 MG in IV NORMAL SALINE 250ML 250 ML IV ONE
--- NOTE | 2019-04-09 13:50 | PHYS DOC ---
Past Medical History Past Medical History: A-Fib, CAD, Diabetes-Type II, High Cholesterol, Heart Disease, Pneumonia, Other Additional Past Medical Histor: Crohns,sleep apnea,PLEURAL EFFUSIONS Past Surgical History: Angioplasty, Appendectomy, Cholecystectomy Additional Past Surgical Histo: bowel resection,LAMINECTOMY,thoracentesis Additional Information: Never smoked. Chews. Alcohol Use: Rarely Drug Use: None Adult General Chief Complaint Chief Complaint: SHORTNESS OF BREATH HPI HPI A 73-year-old male presents with shortness of breath that has worsened over the last week. Patient has a history of pleural effusions with multiple thoracentesis as needed. The most recent was 2 weeks ago. Patient denies fever, congestion, chest pain but reports shortness of breath and cough with mucus production. Patient also reports an increased swelling, erythema, tenderness in his bilateral lower extremities. He reports the shortness of breath. Similar to past pleural effusions. He received a chest x-ray today by his PCP and was sent here. His most recent surgery was in January a triple bypass with a valve replacement. Review of Systems Review of Systems Constitutional: Denies fever or chills Eyes: Denies redness or eye pain HENT: Denies nasal congestion or sore throat Respiratory: Port a productive cough with shortness of breath but denies congestion and sore throat. Cardiovascular: Denies chest pain or palpitations GI: Denies abdominal pain, nausea, or vomiting : Denies dysuria or hematuria Musculoskeletal: Denies back pain or joint pain Integument: Denies rash or skin lesions or reports bilateral erythema, swelling, tenderness of his lower extremities. Neurologic: Denies headache, focal weakness or sensory changes Complete systems were reviewed and found to be within normal limits, except as documented in this note. Allergies Allergies Allergies Coded Allergies Type Severity Reaction Last Updated Verified furosemide Allergy Severe Swelling 04/07/19 Yes amlodipine Allergy Intermediate Swelling 04/07/19 Yes azathioprine Allergy Intermediate n/v 04/07/19 Yes infliximab Allergy Intermediate rash 04/07/19 Yes Physical Exam Physical Exam Constitutional: Well developed, well nourished, no acute distress, non-toxic appearance HENT: Normocephalic, atraumatic, oropharynx moist Eyes: PERRL, EOMI, conjunctiva normal, no discharge Neck: Normal range of motion, no tenderness, supple Cardiovascular: 3/6 systolic murmur best heard in the left second intercostal space. Regular rate Lungs & Thorax: Bilateral breath sounds clear to auscultation, no wheezing, decreased breath sounds in the lower lobes Abdomen: Soft, no tenderness, distended abdomen Skin: . Warm, dry, and bruising over the left forearm. Back: No tenderness, no CVA tenderness Extremities: Swelling, erythema, tenderness to palpation of the bilateral lower extremities with a 2+ pitting edema Neurologic: Alert and oriented X 3, normal motor function, normal sensory function, no focal deficits noted Psychologic: Affect normal, judgement normal, mood normal Current Patient Data Vital Signs Vital Signs Date Time Temp Pulse Resp B/P (MAP) Pulse Ox O2 Delivery O2 Flow Rate FiO2 04/09/19 15:15 80 18 170/83 (112) 94 Room Air 04/09/19 13:58 98.8 98.8 Lab Values Laboratory Tests Test 04/09/19 14:18 White Blood Count 4.9 x10^3/uL (4.0-11.0) Red Blood Count 3.34 x10^6/uL (4.30-5.70) L Hemoglobin 9.9 g/dL (13.0-17.5) L Hematocrit 30.8 % (39.0-53.0) L Mean Corpuscular Volume 92 fL (79-100) Mean Corpuscular Hemoglobin 30 pg (25-35) Mean Corpuscular Hemoglobin Concent 32 g/dL (31-37) Red Cell Distribution Width 14.7 % (11.5-14.5) H Platelet Count 176 x10^3/uL (140-400) Neutrophils (%) (Auto) 70 % (31-73) Lymphocytes (%) (Auto) 11 % (24-48) L Monocytes (%) (Auto) 9 % (0-9) Eosinophils (%) (Auto) 8 % (0-3) H Basophils (%) (Auto) 1 % (0-3) Neutrophils # (Auto) 3.4 x10^3/uL (1.8-7.7) Lymphocytes # (Auto) 0.5 x10^3/uL (1.0-4.8) L Monocytes # (Auto) 0.5 x10^3/uL (0.0-1.1) Eosinophils # (Auto) 0.4 x10^3/uL (0.0-0.7) Basophils # (Auto) 0.1 x10^3/uL (0.0-0.2) Prothrombin Time 29.0 SEC (11.7-14.0) H Prothrombin Time INR 2.8 (0.8-1.1) H Activated Partial Thromboplast Time 55 SEC (24-38) H Sodium Level 141 mmol/L (136-145) Potassium Level 4.4 mmol/L (3.5-5.1) Chloride Level 104 mmol/L (98-107) Carbon Dioxide Level 32 mmol/L (21-32) Anion Gap 5 (6-14) L Blood Urea Nitrogen 29 mg/dL (8-26) H Creatinine 2.5 mg/dL (0.7-1.3) H Estimated GFR (Cockcroft-Gault) 25.4 BUN/Creatinine Ratio 12 (6-20) Glucose Level 100 mg/dL (70-99) H Lactic Acid Level 1.1 mmol/L (0.4-2.0) Calcium Level 8.8 mg/dL (8.5-10.1) Magnesium Level 1.8 mg/dL (1.8-2.4) Total Bilirubin 0.8 mg/dL (0.2-1.0) Aspartate Amino Transferase (AST) 15 U/L (15-37) Alanine Aminotransferase (ALT) 9 U/L (16-63) L Alkaline Phosphatase 102 U/L (46-116) Creatine Kinase 48 U/L (39-308) Creatine Kinase MB (Mass) 1.4 ng/mL (0.0-3.6) Creatine Kinase MB Relative Index % (0-4) Troponin I Quantitative < 0.017 ng/mL (0.000-0.055) HC-Ovg-E-Type Natriuretic Peptide 4705 pg/mL (0-124) H Total Protein 7.6 g/dL (6.4-8.2) Albumin 3.3 g/dL (3.4-5.0) L Albumin/Globulin Ratio 0.8 (1.0-1.7) L Laboratory Tests 04/09/19 14:18 Laboratory Tests 04/09/19 14:18 EKG EKG [EKG at 1407 shows an irregularly irregular heart rate consistent with A. fib.. Heart rate of 69 bpm. Low voltage. Radiology/Procedures Radiology/Procedures PROCEDURE: CHEST PA & LATERAL CHEST PA LATERAL History: Shortness of breath Comparison: April 02, 2019 Findings: Small to moderate left pleural effusion with adjacent opacity. Increased compared to prior [place] posteriorly on lateral view. Prior median sternotomy. Enlarged cardiac silhouette, unchanged. No pneumothorax. Postop changes upper lumbar spine. Impression: 1. Increased small to moderate left pleural effusion. 2. Increased patchy left basilar opacity, may represent atelectasis or consolidation Electronically signed by: Jimi See DO (04/09/2019 3:41 PM) [email or web address] Course & Med Decision Making Course & Med Decision Making Pertinent Labs and Imaging studies reviewed. (See chart for details) Patient presents with shortness of breath that has worsened over the last week. He has a history of multiple pleural effusions that required thoracentesis. He denies any fever, chest pain, and hemoptysis. Chest x-ray shows a moderate left pleural effusion with a possibility of atelectasis or infiltrate. Patient was instructed to set up outpatient thoracentesis for symptomatic relief. In the ER he is saturating in the high 90s on room air. He shows no signs of respiratory distress, tachypnea, or discomfort. EKG and troponins were negative for cardiac pathology. White blood cell count and other infectious markers were within normal limits making pneumonia unlikely. Dr. Powell (pulmonology) was consulted and suggested scheduling outpatient thoracentesis after being off Coumadin for least 3 days. Patient was also instructed to follow-up with his thoracic surgeon for more long-term solutions. Patient stable for discharge with outpatient follow-up with PCP. Discussed findings and plan with patient and family, who acknowledge understanding and agreement. Dragon Disclaimer Dragon Disclaimer This electronic medical record was generated, in whole or in part, using a voice recognition dictation system. Departure Departure Impression: Primary Impression: SOB (shortness of breath) Additional Impression: Pleural effusion Disposition: 01 HOME, SELF-CARE Condition: STABLE Referrals: JINNY ARTIS MD (PCP) ALEXANDER POWELL MD Patient Instructions: Pleural Effusion, Shortness of Breath, [id number] Additional Instructions: Dr. Powell's office will set you up for a thoracentesis. They will call you tomorrow for date and time. Hold your Coumadin until that time. Problem Qualifiers JHONATAN BRAVO 22, 2020 13:50
--- NOTE | 2019-04-09 14:28 | EKG ---
[facility] [address] [place] [address] Test Date: 2019-04-09 Test Time: 14:07:04 Pat Name: JESSE MCGEE Department: Room: Gender: M Lining Vamper: : 1945 Requested By: JHONATAN BRAVO Order Number: [id number] Reading MD: Measurements Intervals [place] Rate: 69 P: [place]: QRS: 0 QRSD: 94 T: 124 QT: 428 QTc: 460 Interpretive Statements IRREGULAR RHYTHM, NO P-WAVE FOUND LEFTWARD AXIS T ABNORMALITY IN HIGH LATERAL LEADS ABNORMAL ECG RI6.01 No previous ECG available for comparison
[2019-04-09 14:31] LABS: BASO # 0.1 x10^3/uL (0.0-0.2); BASO % 1 % (0-3); EOS # 0.4 x10^3/uL (0.0-0.7); EOS % 8 % (0-3); HEMATOCRIT 30.8 % (39.0-53.0); HEMOGLOBIN 9.9 g/dL (13.0-17.5); LYMPH # 0.5 x10^3/uL (1.0-4.8); LYMPH % 11 % (24-48); MEAN CORPUSCULAR HEMOGLOBIN 30 pg (25-35); MEAN CORPUSCULAR HGB CONC 32 g/dL (31-37); MEAN CORPUSCULAR VOLUME 92 fL (79-100); MONO # 0.5 x10^3/uL (0.0-1.1); MONO % 9 % (0-9); NEUT # 3.4 x10^3/uL (1.8-7.7); NEUT % 70 % (31-73); PLATELET COUNT 176 x10^3/uL (140-400); RED BLOOD COUNT 3.34 x10^6/uL (4.30-5.70); RED CELL DISTRIBUTION WIDTH 14.7 % (11.5-14.5); WHITE BLOOD COUNT 4.9 x10^3/uL (4.0-11.0)
[2019-04-09 14:40] LABS: CALCIUM 8.8 mg/dL (8.5-10.1); CREATININE 2.5 mg/dL (0.7-1.3); GFR 25.4; POTASSIUM 4.4 mmol/L (3.5-5.1)
[2019-04-09 14:46] LABS: ALBUMIN 3.3 g/dL (3.4-5.0); ALBUMIN/GLOBULIN RATIO 0.8 (1.0-1.7); MAGNESIUM 1.8 mg/dL (1.8-2.4); TOTAL BILIRUBIN 0.8 mg/dL (0.2-1.0); TOTAL PROTEIN 7.6 g/dL (6.4-8.2)
[2019-04-09 14:54] LABS: CREATINE KINASE 48 U/L (39-308)
--- NOTE | 2019-04-09 15:44 | RAD ---
CHEST PA LATERAL History: Shortness of breath Comparison: April 02, 2019 Findings: Small to moderate left pleural effusion with adjacent opacity. Increased compared to prior [place] posteriorly on lateral view. Prior median sternotomy. Enlarged cardiac silhouette, unchanged. No pneumothorax. Postop changes upper lumbar spine. Impression: 1. Increased small to moderate left pleural effusion. 2. Increased patchy left basilar opacity, may represent atelectasis or consolidation Electronically signed by: Jimi See DO (04/09/2019 3:41 PM) [id number]
[2019-04-09 17:00] VITALS: BP 158/81
== END 2019-04-09 17:27 | disposition home or self-care (01) ==
LOC: ER 13:02
DX: S50.12XA Contusion of left forearm, initial encounter (principal); J90 Pleural effusion, not elsewhere classified; R06.02 Shortness of breath; R60.0 Localized edema; R05 Cough; M79.604 Pain in right leg; M79.605 Pain in left leg; I48.91 Unspecified atrial fibrillation; E11.9 Type 2 diabetes mellitus without complications; E78.00 Pure hypercholesterolemia, unspecified; I25.10 Atherosclerotic heart disease of native coronary artery without angina pectoris; K50.90 Crohn's disease, unspecified, without complications; Z95.5 Presence of coronary angioplasty implant and graft; F17.220 Nicotine dependence, chewing tobacco, uncomplicated; Z88.8 Allergy status to other drugs, medicaments and biological substances; X58.XXXA Exposure to other specified factors, initial encounter; Y93.89 Activity, other specified; Y92.89 Other specified places as the place of occurrence of the external cause; Y99.8 Other external cause status
CPT/HCPCS: 36415; 71046; 80053; 82553; 83605; 83735; 83880; 84484; 85025; 85610; 85730; 93005; 99285-25

== ENCOUNTER 2019-04-14 09:54 | Outpatient (CLI) | payer MEDICARE ==
[2019-04-14] VITALS (9 sets, daily range): BP systolic 121–156; BP diastolic 60–82
[~2019-04-14] VITALS: Ht 177.8 cm; Wt 104.3 kg
[2019-04-14 10:23] LABS: BASO # 0.1 x10^3/uL (0.0-0.2); BASO % 2 % (0-3); EOS # 0.5 x10^3/uL (0.0-0.7); EOS % 11 % (0-3); HEMATOCRIT 32.1 % (39.0-53.0); HEMOGLOBIN 10.4 g/dL (13.0-17.5); LYMPH # 0.7 x10^3/uL (1.0-4.8); LYMPH % 13 % (24-48); MEAN CORPUSCULAR HEMOGLOBIN 30 pg (25-35); MEAN CORPUSCULAR HGB CONC 32 g/dL (31-37); MEAN CORPUSCULAR VOLUME 93 fL (79-100); MONO # 0.4 x10^3/uL (0.0-1.1); MONO % 8 % (0-9); NEUT # 3.5 x10^3/uL (1.8-7.7); NEUT % 67 % (31-73); PLATELET COUNT 177 x10^3/uL (140-400); RED BLOOD COUNT 3.46 x10^6/uL (4.30-5.70); RED CELL DISTRIBUTION WIDTH 15.2 % (11.5-14.5); WHITE BLOOD COUNT 5.2 x10^3/uL (4.0-11.0)
[2019-04-14 10:39] LABS: PROTHROMBIN TIME PATIENT 17.1 SEC (11.7-14.0)
--- NOTE | 2019-04-14 13:39 | RAD ---
Ultrasound-guided left-sided thoracentesis 03/28/2019 2:08 PM Indication: Left PLEURAL EFFUSION Procedure: Informed consent was obtained. A timeout procedure was performed. Sonographic evaluation of the left chest was performed demonstrating large left pleural effusion. The left posterior chest was prepped and draped in sterile fashion. 1% lidocaine without epinephrine was administered for local anesthesia. Real-time ultrasonographic guidance was used in passing a 5 [employer] catheter into the left pleural space. 1.8 L of serous pleural fluid was removed. The catheter was removed and pressure held to achieve hemostasis. A sterile dressing was applied. No immediate complications were identified. The patient tolerated the procedure well. Impression: Ultrasound-guided left-sided thoracentesis
--- NOTE | 2019-04-14 13:49 | NUR ---
Discharge Note: JESSE MCGEE Discharge instructions and discharge home medications reviewed with Patient and a copy given. All questions have been answered and understanding verbalized. The following instructions and handouts were given: Thoracentesis. Discontinued lines and drains: No IV for this visit. Patient discharged to home with via ambulation to private vehicle.
--- NOTE | 2019-04-14 14:20 | RAD ---
EXAM: CHEST ONE VIEW. HISTORY: Status post thoracentesis, pleural effusion. COMPARISON: 04/09/2019. FINDINGS: A frontal view of the chest is obtained. There are changes of coronary artery bypass grafting. The left pleural effusion is now small. There is no appreciable pneumothorax. There is residual atelectasis in the left base. The inspiration is small. The heart is mildly enlarged. IMPRESSION: 1. Small residual left pleural effusion. No pneumothorax. Electronically signed by: Paul Pop MD (04/14/2019 2:17 PM) [facility]
== END 2019-04-14 13:40 | disposition home or self-care (01) ==
LOC: INTRAD 09:54
PROVIDERS: ATTEND Internal Medicine Critical Care Medicine
DX: J90 Pleural effusion, not elsewhere classified (principal); Z88.8 Allergy status to other drugs, medicaments and biological substances; Z88.1 Allergy status to other antibiotic agents
CPT/HCPCS: 32555; 36415; 71045; 85025; 85610

== ENCOUNTER 2019-06-27 15:17 | Emergency (ER) | payer MEDICARE ==
[~2019-06-27] VITALS: Ht 175.3 cm; Wt 106.8 kg
[2019-06-27 15:37] VITALS: BP 187/84
[2019-06-27] MEDS ORDERED: GELATIN SPONGE SIZE 12-7MM SPONGE. TP ONE (15:45)
[2019-06-27] MEDS ORDERED: GELATIN SPONGE SIZE 12-7MM SPONGE. ONE (15:53)
[2019-06-27] MEDS ORDERED: AMOX1TAB61 PO (15:53)
--- NOTE | 2019-06-27 15:54 | PHYS DOC ---
Past Medical History Past Medical History: A-Fib, Anemia, CAD, CVA, Diabetes-Type II, High Cho lesterol, Heart Disease, Hypertension, Pneumonia, Other Additional Past Medical Histor: Crohns,sleep apnea,PLEURAL EFFUSIONS, aortic stenosis, CKD Past Surgical History: Angioplasty, Appendectomy, Cholecystectomy Additional Past Surgical Histo: bowel resection,LAMINECTOMY,thoracentesis, AVR, cardiac stents Smoking Status: Former Smoker Alcohol Use: Rarely Drug Use: None General Adult EDM: Chief Complaint: LOWER EXT PAIN HPI: HPI: Patient is a 73 year old male who presents to the ED today complaining of bleeding to the left fields, patient states yesterday he got scratched by his dog and he is on Coumadin and has been bleeding from the laceration site since then. Review of Systems: Review of Systems: Constitutional: Denies fever or chills. [] Musculoskeletal: Denies back pain or joint pain. [] Integument: Dog scratches on the left fields, bleeding from the laceration site Neurologic: Denies headache, focal weakness or sensory changes. [] Lymphatic: Denies swollen glands. [] Psychiatric: Denies depression or anxiety. [] Heart Score: Risk Factors: Risk Factors: DM, Current or recent (<one month) smoker, HTN, HLP, family history of CAD, obesity. Risk Scores: Score 0 - 3: 2.5% MACE over next 6 weeks - Discharge Home Score 4 - 6: 20.3% MACE over next 6 weeks - Admit for Clinical Observation Score 7 - 10: 72.7% MACE over next 6 weeks - Early Invasive Strategies Allergies: Allergies: Allergies Coded Allergies Type Severity Reaction Last Updated Verified furosemide Allergy Severe Swelling 04/07/19 Yes amlodipine Allergy Intermediate Swelling 04/07/19 Yes azathioprine Allergy Intermediate n/v 04/07/19 Yes infliximab Allergy Intermediate rash 04/07/19 Yes Physical Exam: PE: Constitutional: Well developed, well nourished, no acute distress, non-toxic appearance. [] Skin: Left distal fields with 2 lacerations sites. One is a tiny puncture wound approximately 0.3 x 0.3 cm with trace amount of blood. The abdomen is horizontal laceration approximately 4 cm long not actively bleeding. Neurovascular exam is intact. Back: No tenderness, no CVA tenderness. [] Extremities: No tenderness, no cyanosis, no clubbing, ROM intact, no edema. [] Neurologic: Alert and oriented X 3, normal motor function, normal sensory function, no focal deficits noted. [] Psychologic: Affect normal, judgement normal, mood normal. [] Current Patient Data: Vital Signs: Vital Signs Date Time Temp Pulse Resp B/P (MAP) Pulse Ox O2 Delivery O2 Flow Rate FiO2 06/27/19 15:37 98.1 84 18 187/84 (118) 97 Room Air 98.1 EKG: EKG: [] Radiology/Procedures: Radiology/Procedures: [] Course & Med Decision Making: Course & Med Decision Making Pertinent Labs and Imaging studies reviewed. (See chart for details) This is a 73-year-old male patient presenting to the ED today with bleeding wound to the left fields that occurred after his own dog scratched him yesterday. Patient is on Coumadin and reports bleeding from the areas since it happened. On physical exam there is trace amount of bleeding on 1 of the wounds. Gelfoam was used to the affected area. Discharged home. Provided prescription for Augmentin. Follow-up with his own doctor in 1 week. Tetanus up to date Dragon Disclaimer: Dragon Disclaimer: This electronic medical record was generated, in whole or in part, using a voice recognition dictation system. Departure Departure Impression: Primary Impression: Dog scratch Disposition: 01 HOME, SELF-CARE Condition: STABLE Referrals: JINNY ARTIS MD (PCP) follow up in 1 week Patient Instructions: Animal Bite, [id number] Additional Instructions: Please leave the dressing on for 24 hours. Please keep the areas clean and dry. Please complete your antibiotics. Please follow up with your doctor in 1-2 weeks Monitor the areas for any signs of infection including increased redness, warmth, yellow drainage from the areas on return to the ED if they occur. Scripts Amoxicillin/Potassium Clav (AUGMENTIN 875-125 TABLET) 1 Each Tablet 1 TAB PO BID for 10 Days, #20 TAB 0 Refills Prov: SATHISH CEBALLOS APRN 06/27/19 SATHISH CEBALLOS APRN Jun 27, 2019 15:54
== END 2019-06-27 16:06 | disposition home or self-care (01) ==
LOC: ER 15:17
DX: S81.812A Laceration without foreign body, left lower leg, initial encounter (principal); E11.22 Type 2 diabetes mellitus with diabetic chronic kidney disease; I13.10 Hypertensive heart and chronic kidney disease without heart failure, with stage 1 through stage 4 chronic kidney disease, or unspecified chronic kidney disease; N18.9 Chronic kidney disease, unspecified; I48.91 Unspecified atrial fibrillation; E78.00 Pure hypercholesterolemia, unspecified; I25.10 Atherosclerotic heart disease of native coronary artery without angina pectoris; Z86.73 Personal history of transient ischemic attack (TIA), and cerebral infarction without residual deficits; Z87.891 Personal history of nicotine dependence; Z95.5 Presence of coronary angioplasty implant and graft; Z79.01 Long term (current) use of anticoagulants; Z88.8 Allergy status to other drugs, medicaments and biological substances; W54.8XXA Other contact with dog, initial encounter; Y93.89 Activity, other specified; Y92.89 Other specified places as the place of occurrence of the external cause; Y99.8 Other external cause status
CPT/HCPCS: 99283

== ENCOUNTER 2020-03-22 10:18 | Inpatient (IN) | payer MEDICARE, OTHER ==
[~2020-03-22] VITALS: Ht 177.8 cm; Wt 111.8 kg
[~2020-03-22 10:18] MED LIST changes: +AMLO-186 PO; -AMLO5TAB10 PO; +AMOX1TAB61 PO; -ASPI-612 PO; +ASPI-886 PO; -DICL100G18 TP; +DICL100G54 TP
[2020-03-22 10:58] LABS: BASO # 0.1 x10^3/uL (0.0-0.2); BASO % 3 % (0-3); EOS # 0.4 x10^3/uL (0.0-0.7); EOS % 12 % (0-3); HEMATOCRIT 28.1 % (39.0-53.0); HEMOGLOBIN 9.1 g/dL (13.0-17.5); LYMPH # 0.3 x10^3/uL (1.0-4.8); LYMPH % 10 % (24-48); MEAN CORPUSCULAR HEMOGLOBIN 30 pg (25-35); MEAN CORPUSCULAR HGB CONC 33 g/dL (31-37); MEAN CORPUSCULAR VOLUME 92 fL (79-100); MONO # 0.4 x10^3/uL (0.0-1.1); MONO % 11 % (0-9); NEUT # 2.3 x10^3/uL (1.8-7.7); NEUT % 65 % (31-73); PLATELET COUNT 133 x10^3/uL (140-400); RED BLOOD COUNT 3.07 x10^6/uL (4.30-5.70); RED CELL DISTRIBUTION WIDTH 16.1 % (11.5-14.5); WHITE BLOOD COUNT 3.6 x10^3/uL (4.0-11.0)
[2020-03-22 11:04] LABS: CALCIUM 8.7 mg/dL (8.5-10.1); CREATININE 3.6 mg/dL (0.7-1.3); GFR 16.7; POTASSIUM 3.9 mmol/L (3.5-5.1)
--- NOTE | 2020-03-22 11:08 | PHYS DOC ---
Past Medical History Past Medical History: A-Fib, Anemia, CAD, CVA, Diabetes-Type II, High Cholesterol, Heart Disease, Hypertension, Pneumonia, Other Additional Past Medical Histor: Crohns,sleep apnea,PLEURAL EFFUSIONS,aortic stenosis,CKD Past Surgical History: Angioplasty, Appendectomy, Cholecystectomy, Coronary Bypass Surgery, Other Additional Past Surgical Histo: bowel resection,LAMINECTOMY,thoracentesis, AVR, cardiac stents Smoking Status: Former Smoker Alcohol Use: Rarely Drug Use: None General Adult EDM: Chief Complaint: SHORTNESS OF BREATH HPI: HPI: Patient is a 74 year old male who presented to ER for evaluation of trouble breathing patient in the last week. Patient stated that he GAINED 10 lbs in a week. Patient has history of CHF, HE IS ON WATER PILL AT HOME. Patient denies any cough or fever, no chest pain, no abdominal pain, no nausea vomiting.. The symptoms are worse with any type of exertional activities. Patient said since his open heart surgery last January, he has have episodic cramping pain on left side of his chest. Review of Systems: Review of Systems: Constitutional: Denies fever or chills. [] Eyes: Denies change in visual acuity. [] HENT: Denies nasal congestion or sore throat. [] Respiratory: positive for shortness of air, no cough. Cardiovascular: Denies chest pain or edema. [] GI: Denies abdominal pain, nausea, vomiting, bloody stools or diarrhea. [] : Denies dysuria. [] Musculoskeletal: Denies back pain or joint pain. [] Integument: Denies rash. [] Neurologic: Denies headache, focal weakness or sensory changes. [] Endocrine: Denies polyuria or polydipsia. [] Lymphatic: Denies swollen glands. [] Psychiatric: Denies depression or anxiety. [] Heart Score: Risk Factors: Risk Factors: DM, Current or recent (<one month) smoker, HTN, HLP, family history of CAD, obesity. Risk Scores: Score 0 - 3: 2.5% MACE over next 6 weeks - Discharge Home Score 4 - 6: 20.3% MACE over next 6 weeks - Admit for Clinical Observation Score 7 - 10: 72.7% MACE over next 6 weeks - Early Invasive Strategies Allergies: Allergies: Allergies Coded Allergies Type Severity Reaction Last Updated Verified furosemide Allergy Severe Swelling 04/07/19 Yes amlodipine Allergy Intermediate Swelling 04/07/19 Yes azathioprine Allergy Intermediate n/v 04/07/19 Yes infliximab Allergy Intermediate rash 04/07/19 Yes Physical Exam: PE: Constitutional: Well developed, well nourished, no acute distress, non-toxic appearance. [] HENT: Normocephalic, atraumatic, bilateral external ears normal, oropharynx moist, no oral exudates, nose normal. [] Eyes: PERRLA, EOMI, conjunctiva normal, no discharge. [] Neck: Normal range of motion, no tenderness, supple, no stridor. [] Cardiovascular:Heart rate regular rhythm, no murmur [] Lungs & Thorax: DECREASED AIR MOVEMENT IN ALL LUNG RUBI. Abdomen: Bowel sounds normal, soft, no tenderness, no masses, no pulsatile masses. [] Skin: Warm, dry, no erythema, no rash. [] Back: No tenderness, no CVA tenderness. [] Extremities: No tenderness, no cyanosis, no clubbing, ROM intact, PITTING EDEMA 4 PLUS. Neurologic: Alert and oriented X 3, normal motor function, normal sensory function, no focal deficits noted. [] Psychologic: Affect normal, judgement normal, mood normal. [] Current Patient Data: Labs: Laboratory Tests Test 03/22/20 10:44 White Blood Count 3.6 x10^3/uL (4.0-11.0) L Red Blood Count 3.07 x10^6/uL (4.30-5.70) L Hemoglobin 9.1 g/dL (13.0-17.5) L Hematocrit 28.1 % (39.0-53.0) L Mean Corpuscular Volume 92 fL (79-100) Mean Corpuscular Hemoglobin 30 pg (25-35) Mean Corpuscular Hemoglobin Concent 33 g/dL (31-37) Red Cell Distribution Width 16.1 % (11.5-14.5) H Platelet Count 133 x10^3/uL (140-400) L Neutrophils (%) (Auto) 65 % (31-73) Lymphocytes (%) (Auto) 10 % (24-48) L Monocytes (%) (Auto) 11 % (0-9) H Eosinophils (%) (Auto) 12 % (0-3) H Basophils (%) (Auto) 3 % (0-3) Neutrophils # (Auto) 2.3 x10^3/uL (1.8-7.7) Lymphocytes # (Auto) 0.3 x10^3/uL (1.0-4.8) L Monocytes # (Auto) 0.4 x10^3/uL (0.0-1.1) Eosinophils # (Auto) 0.4 x10^3/uL (0.0-0.7) Basophils # (Auto) 0.1 x10^3/uL (0.0-0.2) Platelet Estimate Pending Laboratory Tests 03/22/20 10:44 Vital Signs: Vital Signs Date Time Temp Pulse Resp B/P (MAP) Pulse Ox O2 Delivery O2 Flow Rate FiO2 03/22/20 10:23 98.0 65 20 150/68 (95) 99 Nasal Cannula 3.0 98.0 EKG: EKG: EKG was done 1031, heart rate of 66 bpm, A. fib, no STEMI. Radiology/Procedures: Radiology/Procedures: [][facility] [address] [place] [address] IMAGING REPORT Signed PATIENT: JESSE MCGEE RACCOUNT: [id number] : 1945 LOCATION: ER AGE: 74 SEX: M EXAM STATUS: REG ER ORD. PHYSICIAN: MADELYN SHINE DO REASON: SOA,PT STATES TROUBLE BREATHING AND RETAINING FLUID. PROCEDURE: PORTABLE CHEST 1V EXAM: Chest, single view. HISTORY: Difficulty breathing. COMPARISON: 04/14/2019 FINDINGS: A frontal view of the chest is obtained. There is increased left lower lobe and lingular opacity likely due to partially consolidated infiltrate. There is a small left pleural effusion. There is a stable cardiac silhouette and evidence of prior CABG. There is no pneumothorax. IMPRESSION: Suspected partially consolidated lingular and left lower lobe infiltrate with small pleural effusion. Electronically signed by: Teri Velasquez MD (03/22/2020 11:07 AM) [id number] DICTATED and SIGNED BY: TERI VELASQUEZ MD DATE: 03/22/20 [id number] Course & Med Decision Making: Course & Med Decision Making Pertinent Labs and Imaging studies reviewed. (See chart for details) Patient is a 74-year-old male who was found to have CHF exacerbation, he also had infiltration of the left-sided lung system with community-acquired pneumonia. Patient be admitted to hospital for further evaluation and treatment. Patient was tested for COVID-19, test result pending at this time, his renal renal function is elevated insistent with acute on chronic renal failure. Discussed with Dr. Ventura who will admit the patient. Dragon Disclaimer: Dragon Disclaimer: This electronic medical record was generated, in whole or in part, using a voice recognition dictation system. Departure Departure Impression: Primary Impression: CHF exacerbation Additional Impressions: Acute on chronic renal failure Person under investigation for COVID-19 Pneumonia Disposition: ADMITTED INPT THIS HOSP Admitting Physician: MILO (DR. VENTURA) Condition: STABLE ( ) Referrals: JINNY ARTIS MD (PCP) MADELYN SHINE DO Mar 22, 2020 11:08
[2020-03-22 11:10] LABS: ALBUMIN 3.4 g/dL (3.4-5.0); ALBUMIN/GLOBULIN RATIO 0.7 (1.0-1.7); MAGNESIUM 2.1 mg/dL (1.8-2.4); TOTAL BILIRUBIN 1.1 mg/dL (0.2-1.0)
--- NOTE | 2020-03-22 11:10 | RAD ---
EXAM: Chest, single view. HISTORY: Difficulty breathing. COMPARISON: 04/14/2019 FINDINGS: A frontal view of the chest is obtained. There is increased left lower lobe and lingular op acity likely due to partially consolidated infiltrate. There is a small left pleural effusion. There is a stable cardiac silhouette and evidence of prior CABG. There is no pneumothorax. IMPRESSION: Suspected partially consolidated lingular and left lower lobe infiltrate with small pleur al effusion. Electronically signed by: Teri Sepulveda MD (03/22/2020 11:07 AM) [id number]
[2020-03-22 11:41] LABS: PROTHROMBIN TIME PATIENT 22.9 SEC (11.7-14.0)
--- NOTE | 2020-03-22 12:23 | PDOC1 ---
History and Physical Date of Admission Date of Admission DATE: 03/22/20 TIME: 12:23 Identification/Chief Complaint Chief Complaint Shortness of breath Source Source: Chart review, Patient History of Present Illness History of Present Illness Mr Lee is a 74yo M [employer] with PMHx A-Fib, Anemia, CAD s/p CABG 2018, Crohns disease, Diabetes-Type II, High Cholesterol, Heart Disease, Hypertension, recurrent right pleural effusions, aortic stenosis, CKD, ALESIA who presented to ER for evaluation of trouble breathing in the last week. Patient stated that he GAINED 10 lbs in a week. Patient has history of CHF, he was on torsemide 20 mg daily increased a few months ago to twice daily and then to 40 mg twice daily but has noticed decreased urine output recently. Patient denies any cough or fever, no chest pain, no abdominal pain, no nausea vomiting.. The symptoms are worse with any type of exertional activities. Patient said since his open heart surgery January 2019, he has have episodic cramping pain on left side of his chest. EKG was done 1031, heart rate of 66 bpm, A. fib, no STEMI. Chest radiograph with suspected partially consolidated lingular and left lower lobe infiltrate with small pleural effusion. Labs with WBC 3.6, Hb 9.1, platelets 133, INR 2.1, albumin 3.4, lactate 1.8, BNP 10,275, troponin 0, BUN 66, CR 3.6 Admitted for further care. Past Medical History Cardiovascular: CAD, HTN, Hyperlipidemia Pulmonary: Pneumonia, Other CENTRAL NERVOUS SYSTEM: Other GI: Inflam bowel disease Heme/Onc: Cancer Psych: No pertinent hx Musculoskeletal: Osteoarthritis Rheumatologic: No pertinent hx Infectious disease: No pertinent hx Renal/: Benign prostatic enlarg. Endocrine: Diabetes Past Surgical History Past Surgical History: Appendectomy, Cholecystectomy, Colon Resection, Other Family History Family History: Coronary Artery Disease, High Cholestrol, Hypertension Social History Smoke: No ALCOHOL: other Drugs: None Current Problem List Problem List Problems Medical Problems: (1) Acute on chronic renal failure Status: Acute (2) CHF exacerbation Status: Acute (3) Person under investigation for COVID-19 Status: Acute Current Medications Current Medications Active Scripts Active Augmentin 875-125 Tablet (Amoxicillin/Potassium Clav) 1 Each Tablet 1 Tab PO BID 10 Days Proair Hfa (Albuterol Sulfate) 8.5 Gm Hfa.aer.ad 2.5 Mg NEB PRN Q4HRS PRN Reported Torsemide 20 Mg Tablet 1 Tab PO BID Warfarin Sodium 2.5 Mg Tablet 2.5 Mg PO DAILY Lisinopril 20 Mg Tablet 1 Tab PO DAILY Colestipol Hcl 1 Gm Tablet 5 Gm PO DAILY Ferrous Sulfate 325 Mg Tablet 324 Mg PO BID Sodium Bicarbonate 650 Mg Tablet 10 Gr PO BID Aspirin 81 Mg Tab.chew 1 Tab PO DAILY Clopidogrel (Clopidogrel Bisulfate) 75 Mg Tablet 1 Tab PO DAILY Cyanocobalamin Injection (Cyanocobalamin (Vitamin B-12)) 1,000 Mcg/1 Ml Vial 1,000 Mcg IJ QMONTH Hydrocodone-Apap 7.5-325 (Hydrocodone Bit/Acetaminophen) 1 Each Tablet 1 Tab PO PRN Q6HRS PRN Gabapentin (Gabapentin) 400 Mg Capsule 1,200 Mg PO BID Vitamin D3 (Cholecalciferol (Vitamin D3)) 1,000 Unit Tablet 2,000 Unit PO Humira (Adalimumab) 40 Mg/0.8 Ml Pen.ij.kit 1 Syr SQ Q2WKS Omeprazole 40 Mg Capsule.dr 1 Cap PO DAILY Atorvastatin Calcium 40 Mg Tablet 1 Tab PO HS Allergies Allergies: Coded Allergies: furosemide (Verified Allergy, Severe, Swelling, 04/07/19) amlodipine (Verified Allergy, Intermediate, Swelling, 04/07/19) azathioprine (Verified Allergy, Intermediate, n/v, 04/07/19) infliximab (Verified Allergy, Intermediate, rash, 04/07/19) ROS General: YES: Fatigue, Malaise; No: Chills, Night Sweats, Appetite, Other PSYCHOLOGICAL ROS: No: Anxiety, Behavioral Disorder, Concentration difficultie, Decreased libido, Depression, Disorientation, Hallucinations, Hostility, Irritablity, Memory difficulties, Mood Swings, Obsessive thoughts, Physical abuse, Sexual abuse, Sleep disturbances, Suicidal ideation, Other Eyes: No Blurry vision, No Decreased vision, No Double vision, No Dry eyes, No Excessive tearing, No Eye Pain, No Itchy Eyes, No Loss of vision, No Photophobia, No Scotomata, No Uses contacts, No Uses glasses, No Other HEENT: No: Heacaches, Visual Changes, Hearing change, Nasal congestion, Nasal discharge, Oral lesions, Sinus pain, Sore Throat, Epistaxis, Sneezing, Snoring, Tinnitus, Vertigo, Vocal changes, Other ALLERGY AND IMMUNOLOGY: No: Hives, Insect Bite Sensitivity, Itchy/Watery Eyes, Nasal Congestion, Post Nasal Drip, Seasonal Allergies, Other Hematological and Lymphatic: No: Bleeding Problems, Blood Clots, Blood Transfusions, Brusing, Night Sweats, Pallor, Swollen Lymph Nodes, Other ENDOCRINE: No: Breast Changes, Galactorrhea, Hair Pattern Changes, Hot Flashes, Malaise/lethargy, Mood Swings, Palpitations, Polydipsia/polyuria, Skin Changes, Temperature Intolerance, Unexpected Weight Changes, Other Breast: No New/Changing Breast Lumps, No Nipple changes, No Nipple discharge, No Other Respiratory: YES: Cough, Shortness of breath, SOB with excertion; No: Hemoptysis, Orthopnea, Pleuritic Pain, Sputum Changes, Stridor, Tachypnea, Wheezing, Other Cardiovascular: yes Edema; No Chest Pain, No Palpitations, No Orthopnea, No Paroxysmal Noc. Dyspnea, No Lt Headedness, No Other Gastrointestinal: No Nausea, No Vomiting, No Abdominal Pain, No Diarrhea, No Constipation, No Melena, No Hematochezia, No Other Genitourinary: No Dysuria, No Frequency, No Incontinence, No Hematuria, No Retention, No Discharge, No Urgency, No Pain, No Flank Pain, No Other, No , No , No , No , No , No , No Musculoskeletal: No Gait Disturbance, No Joint Pain, No Joint Stiffness, No Joint Swelling, No Muscle Pain, No Muscular Weakness, No Pain In:, No Swelling In:, No Other Neurological: No Behavorial Changes, No Bowel/Bladder ControlChng, No Confusion, No Dizziness, No Gait Disturbance, No Headaches, No Impaired Coord/balance, No Memory Loss, No Numbness/Tingling, No Seizures, No Speech Problems, No Tremors, No Visual Changes, No Weakness, No Other Skin: No Dry Skin, No Eczema, No Hair Changes, No Lumps, No Mole Changes, No Mottling, No Nail Changes, No Pruritus, No Rash, No Skin Lesion Changes, No Other, No Acne Physical Exam General: Alert, Oriented X3, Cooperative, moderate distress HEENT: Atraumatic, PERRLA, EOMI, Mucous membr. moist/pink Lungs: Other (Bibasilar crackles) Heart: irregularly irregular Abdomen: Normal bowel sounds, Soft, No tenderness, No hepatosplenomegaly, No masses Extremities: Other (3+ edema) Skin: Other (Venous stasis dermatitis) Neuro: Normal speech, Strength at 5/5 X4 ext, Normal tone, Sensation intact, Cranial nerves 3-12 NL, Reflexes 2+ Vitals Vitals Vital Signs Date Time Temp Pulse Resp B/P (MAP) Pulse Ox O2 Delivery O2 Flow Rate FiO2 03/22/20 10:23 98.0 65 20 150/68 (95) 99 Nasal Cannula 3.0 98.0 Labs Labs Laboratory Tests Test 03/22/20 10:44 White Blood Count 3.6 x10^3/uL (4.0-11.0) Red Blood Count 3.07 x10^6/uL (4.30-5.70) Hemoglobin 9.1 g/dL (13.0-17.5) Hematocrit 28.1 % (39.0-53.0) Mean Corpuscular Volume 92 fL (79-100) Mean Corpuscular Hemoglobin 30 pg (25-35) Mean Corpuscular Hemoglobin Concent 33 g/dL (31-37) Red Cell Distribution Width 16.1 % (11.5-14.5) Platelet Count 133 x10^3/uL (140-400) Neutrophils (%) (Auto) 65 % (31-73) Lymphocytes (%) (Auto) 10 % (24-48) Monocytes (%) (Auto) 11 % (0-9) Eosinophils (%) (Auto) 12 % (0-3) Basophils (%) (Auto) 3 % (0-3) Neutrophils # (Auto) 2.3 x10^3/uL (1.8-7.7) Lymphocytes # (Auto) 0.3 x10^3/uL (1.0-4.8) Monocytes # (Auto) 0.4 x10^3/uL (0.0-1.1) Eosinophils # (Auto) 0.4 x10^3/uL (0.0-0.7) Basophils # (Auto) 0.1 x10^3/uL (0.0-0.2) Prothrombin Time 22.9 SEC (11.7-14.0) Prothromb Time International Ratio 2.1 (0.8-1.1) Sodium Level 140 mmol/L (136-145) Potassium Level 3.9 mmol/L (3.5-5.1) Chloride Level 101 mmol/L (98-107) Carbon Dioxide Level 26 mmol/L (21-32) Anion Gap 13 (6-14) Blood Urea Nitrogen 66 mg/dL (8-26) Creatinine 3.6 mg/dL (0.7-1.3) Estimated GFR (Cockcroft-Gault) 16.7 BUN/Creatinine Ratio 18 (6-20) Glucose Level 102 mg/dL (70-99) Lactic Acid Level 1.8 mmol/L (0.4-2.0) Calcium Level 8.7 mg/dL (8.5-10.1) Magnesium Level 2.1 mg/dL (1.8-2.4) Total Bilirubin 1.1 mg/dL (0.2-1.0) Aspartate Amino Transf (AST/SGOT) 13 U/L (15-37) Alanine Aminotransferase (ALT/SGPT) 14 U/L (16-63) Alkaline Phosphatase 112 U/L (46-116) Troponin I Quantitative < 0.017 ng/mL (0.000-0.055) OM-Hlp-K-Type Natriuretic Peptide 42235 pg/mL (0-124) Total Protein 8.0 g/dL (6.4-8.2) Albumin 3.4 g/dL (3.4-5.0) Albumin/Globulin Ratio 0.7 (1.0-1.7) Laboratory Tests Test 03/22/20 10:44 White Blood Count 3.6 x10^3/uL (4.0-11.0) Red Blood Count 3.07 x10^6/uL (4.30-5.70) Hemoglobin 9.1 g/dL (13.0-17.5) Hematocrit 28.1 % (39.0-53.0) Mean Corpuscular Volume 92 fL (79-100) Mean Corpuscular Hemoglobin 30 pg (25-35) Mean Corpuscular Hemoglobin Concent 33 g/dL (31-37) Red Cell Distribution Width 16.1 % (11.5-14.5) Platelet Count 133 x10^3/uL (140-400) Neutrophils (%) (Auto) 65 % (31-73) Lymphocytes (%) (Auto) 10 % (24-48) Monocytes (%) (Auto) 11 % (0-9) Eosinophils (%) (Auto) 12 % (0-3) Basophils (%) (Auto) 3 % (0-3) Neutrophils # (Auto) 2.3 x10^3/uL (1.8-7.7) Lymphocytes # (Auto) 0.3 x10^3/uL (1.0-4.8) Monocytes # (Auto) 0.4 x10^3/uL (0.0-1.1) Eosinophils # (Auto) 0.4 x10^3/uL (0.0-0.7) Basophils # (Auto) 0.1 x10^3/uL (0.0-0.2) Prothrombin Time 22.9 SEC (11.7-14.0) Prothromb Time International Ratio 2.1 (0.8-1.1) Sodium Level 140 mmol/L (136-145) Potassium Level 3.9 mmol/L (3.5-5.1) Chloride Level 101 mmol/L (98-107) Carbon Dioxide Level 26 mmol/L (21-32) Anion Gap 13 (6-14) Blood Urea Nitrogen 66 mg/dL (8-26) Creatinine 3.6 mg/dL (0.7-1.3) Estimated GFR (Cockcroft-Gault) 16.7 BUN/Creatinine Ratio 18 (6-20) Glucose Level 102 mg/dL (70-99) Lactic Acid Level 1.8 mmol/L (0.4-2.0) Calcium Level 8.7 mg/dL (8.5-10.1) Magnesium Level 2.1 mg/dL (1.8-2.4) Total Bilirubin 1.1 mg/dL (0.2-1.0) Aspartate Amino Transf (AST/SGOT) 13 U/L (15-37) Alanine Aminotransferase (ALT/SGPT) 14 U/L (16-63) Alkaline Phosphatase 112 U/L (46-116) Troponin I Quantitative < 0.017 ng/mL (0.000-0.055) JZ-Gbo-M-Type Natriuretic Peptide 35960 pg/mL (0-124) Total Protein 8.0 g/dL (6.4-8.2) Albumin 3.4 g/dL (3.4-5.0) Albumin/Globulin Ratio 0.7 (1.0-1.7) VTE Prophylaxis Ordered VTE Prophylaxis Devices: Yes VTE Pharmacological Prophylaxi: Yes Assessment/Plan Assessment/Plan A/P: Acute respiratory failure with hypoxia - likely CHF related, will diurese. Check COVID 19 Acute diastolic CHF - diurese. Consult cardiology and nephrology. Cannot tolerate BB due to bradycardia Abnormal CXR - will check procalcitonin, not clear if pneumonia is present Leukopenia - will monitor, check COVID 19 Anemia - likely of chronic disease, previously did require iron infusions ANDREINA on CKD - likely vasomotor nephropathy from cardiorenal syndrome. Will consult nephrology. He sees [facility]ro at [facility] CAD s/p CABG in 2019 - cont ASA, statin Permanent Afib - cannot tolerate BB due to symptomatic bradycardia, on eliquis HTN - monitor, prn hydralazine HLD - cont statin DM2 - sliding scale Aortic stenosis - s/p porcine AVR Valvular insufficiency: mild MR and mod to severe TR PAD - prior left ICA noted occluded FEN - cardiac diet, 1L fluid restriction PPX - Eliquis FULL CODE Dispo - inpatient CVC Justifications for Admission Other Justification AZUCENA VENTURA MD Mar 22, 2020 12:23
[2020-03-22] MEDS ORDERED: cefTRIAXone IV Push 1 GM VIAL. IVP ONE (12:30)
[2020-03-22 12:39] LABS: % EOS 10 % (0-5); % LYMPHS 8 % (24-48); % MONOS 8 % (0-10); % SEGS 74 % (35-66); PLT ESTIMATE DECREASED (ADEQUATE)
[2020-03-22] MEDS ORDERED: ALBUTEROL SULFATE 2.5 MG/3 ML NEBU. NEB PRN (17:00)
[2020-03-22] MEDS: BUMETANIDE 2.5 MG/10 ML VIAL. IV SCH (17:22)
[2020-03-22] MEDS ORDERED: WARFARIN 2.5 MG TABLET. PO SCH (18:00)
[2020-03-22] MEDS ORDERED: ONDANSETRON PF 4 MG/2 ML VIAL. IV PRN (19:15)
[2020-03-22] MEDS ORDERED: ACETAMINOPHEN 325 MG TABLET. PO PRN (19:15)
[2020-03-22] MEDS ORDERED: GABA300C18 PO (20:07)
[2020-03-22] MEDS ORDERED: APIX5TAB PO (20:07)
[2020-03-22] MEDS: ATORVASTATIN CALCIUM 40 MG TABLET. PO SCH (22:40)
[2020-03-22] MEDS: APIXABAN 5 MG TABLET. PO SCH (22:40)
[2020-03-22 23:00] VITALS: BP 98/60
[2020-03-22 23:56] VITALS: BP 103/60
[2020-03-23 03:00] VITALS: BP 126/75
[2020-03-23 07:00] VITALS: BP 120/71
[2020-03-23] MEDS: PANTOPRAZOLE 40 MG TABLET.DR. PO SCH (08:39)
[2020-03-23] MEDS: ASPIRIN CHEWABLE 81 MG TABLET. PO SCH (08:39)
[2020-03-23] MEDS: CHOLECALCIFEROL (VITAMIN D3) 1,000 UNIT TABLET PO SCH (08:39)
[2020-03-23] MEDS: APIXABAN 5 MG TABLET. PO SCH ×2 (08:39→20:47)
[2020-03-23] MEDS: BUMETANIDE 2.5 MG/10 ML VIAL. IV SCH ×2 (09:28→13:37)
[2020-03-23 11:00] VITALS: BP 128/69
--- NOTE | 2020-03-23 11:15 | PDOC2 ---
NEDRA LOPEZ SAFETY GROOVING MACHINE OPERATOR 03/23/20 1115: CARDIAC CONSULT DATE OF CONSULT Date of Consult DATE: 03/23/20 TIME: 10:59 REASON FOR CONSULT Reason for Consult: Acute CHF REFERRING PHYSICIAN Referring Physician: Dr. Betancourt SOURCE Source: Chart review, Patient HISTORY OF PRESENT ILLNESS HISTORY OF PRESENT ILLNESS This is a 74 yo male who presented secondary to progressive shortness of breath for the last month. Worse over the last week. Has had a 10# weight gain. Feels like the "Jasmin Man". Has a history of CAD s/p CABG and CHF. Reports compliance with diuretic therapy. Denies any chest pain, palpitations, dizziness, diaphoresis, or nausea/vomiting. No recent fevers, illness. Follows with [place] [facility]. PAST MEDICAL HISTORY Past Medical History Cardiovascular: CAD, CHF HTN, Hyperlipidemia, AFIB Pulmonary: Pneumonia, Other CENTRAL NERVOUS SYSTEM: Other GI: Chrons Heme/Onc: Cancer Psych: No pertinent hx Musculoskeletal: Osteoarthritis Rheumatologic: No pertinent hx Infectious disease: No pertinent hx Renal/: Benign prostatic enlarg, CKD Endocrine: Diabetes PAST SURGICAL HISTORY Past Surgical History Multiple PCIs, Appendectomy, Cholecystectomy, Colon Resection, CABG, Bioprosthet ic AVR FAMILY HISTORY Family History: Heart Disease, Hypertension SOCIAL HISTORY Social History Smoke: No ALCOHOL: none Drugs: None Lives: with Family CURRENT MEDICATIONS CURRENT MEDICATIONS Current Medications Medications (Trade) Dose Ordered Sig/Jose Route PRN Reason Start Time Stop Time Status Last Admin Dose Admin Ceftriaxone Sodium (Rocephin) 1 gm 1X ONCE IVP 03/22/20 12:30 03/22/20 12:31 DC 03/22/20 12:32 Bumetanide (Bumex) 2.5 mg BID92 IV 03/22/20 17:00 03/23/20 09:28 Aspirin (Aspirin Chewable) 81 mg DAILY PO 03/23/20 09:00 03/23/20 08:39 Atorvastatin Calcium (Lipitor) 40 mg HS PO 03/22/20 21:00 03/22/20 22:40 Vitamin D (Vitamin D3) 2,000 unit DAILY PO 03/23/20 09:00 03/23/20 08:39 Pantoprazole Sodium (Protonix) 40 mg DAILYAC PO 03/23/20 07:30 03/23/20 08:39 Apixaban (Eliquis) 5 mg BID PO 03/22/20 21:00 03/23/20 08:39 ALLERGIES ALLERGIES: Coded Allergies: furosemide (Verified Allergy, Severe, Swelling, 04/07/19) amlodipine (Verified Allergy, Intermediate, Swelling, 04/07/19) azathioprine (Verified Allergy, Intermediate, n/v, 04/07/19) infliximab (Verified Allergy, Intermediate, rash, 04/07/19) ROS Review of System 14 point ROS conducted with pertinent positives noted above in HPI PHYSICAL EXAM PHYSICAL EXAM General: Alert, Oriented X3, Cooperative, No acute distress HEENT: Atraumatic, Mucous membr. moist/pink Lungs: bibasilar crackles, expiratory wheezes Heart: IRRR; AFIB), (2/6 systolic murmur to LLS border) Abdomen: Soft, No tenderness Extremities: No cyanosis, 2+ bilateral LE edema Skin: No breakdown, No significant lesion Neuro: Normal speech, Sensation intact Psych/Mental Status: Mental status NL, Mood NL MUSCULOSKELETAL: Osteoarthritic changes both hands VITALS/I&O VITALS/I&O: Vital Signs Date Time Temp Pulse Resp B/P (MAP) Pulse Ox O2 Delivery O2 Flow Rate FiO2 03/23/20 07:00 97.0 58 16 120/71 (87) 99 Nasal Cannula 3.0 97.0 I & O 03/22/20 03/22/20 03/23/20 15:00 23:00 07:00 Intake Total 640 ml Output Total 1600 ml Balance -960 ml ECHOCARDIOGRAM ECHOCARDIOGRAM <Conclusion> The left ventricle is normal size. The left ventricular systolic function is low normal. The Ejection Fraction is estimated at 50%. There is mild apical hypokinesis. There is mild concentric left ventricular hypertrophy. Calculated aortic valve area is 1.4 cm2 with maximum pressure gradient of 44 mmHg and mean pressure gradient of 18 mmHg. Doppler and color-flow analysis and imaging revealed moderate aortic stenosis. Doppler and Color Flow revealed no significant aortic regurgitation. Doppler and Color-flow revealed trace to mild mitral regurgitation. Doppler and Color Flow revealed moderate to severe tricuspid regurgitation The PA pressure was estimated at >60 mmHg. DATE: 10/10/18 1320 HEART CATH HEART CATH CORONARY ANGIOGRAPHY: LM is a moderate to large caliber vessel with a distal 80% stenosis. LAD is a moderate caliber vessel with an ostial 50% stenosis, patent proximal and mid stents. Ramus is a moderate caliber vessel with an ostial 50% stenosis. LCx is a moderate caliber non-dominant vessel with a proximal 70% stenosis. OM1 is a moderate caliber vessel with a patent proximal stent with mild diffuse 30% ISR. RCA is a moderate caliber dominant vessel with mild diffuse irregularities of up to 50%. Dual PDA system likely with a small caliber PDA without any significant disease. There is also a probable prominent RV marginal or second PDA without significant disease supply the inferior portion. INTRA-AORTIC BALLOON PUMP PLACEMENT: Due to significant coronary disease (LM involvement), class 4 heart failure and elevated LVEDP of 35 mm hg, a decision was made to place an IABP. RCFA arterial access was obtained via the modified seldinger technique and a 6Fr sheath was placed. This sheath was then upsized to a 7.5 Fr sheath. Next, a 50 cc IABP pump was placed with the tip at the level of the left subclavian artery. 1:1 counterpulsation was started without complicationsl CLOSURE: At case completion the right radial sheath was removed and a Terumo radial band was applied with 13 ml of air. COMPLICATIONS: The patient tolerated the procedure well and there were no immediate complications. Conclusion 1. Acute on chronic diastolic HF. LVEDP 35 mm Hg 2. Severe three vessel coronary disease with LM involvement. 3. Respiratory failure requiring non-invasive ventilation with bipap therapy 4. Successful placement of a 7.5 Fr/50 cc IABP for above. Recommendations 1. Due to LM disease involving proximal LAD/LCx plan for transfer to tertiary facility for CABG evaluation. DATE: 02/07/19 1605 ASSESSMENT/PLAN ASSESSMENT/PLAN 1. Acute respiratory failure secondary to CHF 2. Acute on chronic diastolic CHF; Echo 2019 with LVEF 50% 3. ANDREINA on CKD 4. CAD s/p PCI/multiple stents and CABG in 2019. Follows with [place] [facility]ology, Dr. Jimenez 5. Permanent AFIB: rate controlled. Not on BB due to bradycardia. On Eliquis 6. Hypertension; controlled 7. Hyperlipidemia; statin 8. Diabetes, II 9. Crohn's Disease; chronic immunosuppression with Humira 10. s/p bioprosthetic AVR 11. Hx of asymptomatic bradycardia 12. Leukopenia 13. Anemia 14. PUI; COVID pending Recommendations Diuresis with close monitoring of renal function. Consider Lasix gtt pending repeat Cr level Resume secondary prevention measures No ACEI/ARB with ANDREINA No AV peter blocking agents. [facility] if [facility] negative to assess LV systolic function, need for inotropic support JUNE RODRIGUES MD 03/23/20 9486: CARDIAC CONSULT ASSESSMENT/PLAN ASSESSMENT/PLAN Patient seen and examined. Agree with PROJECT SPECIALIST's assessment and plan. Continue diuresis for ac on chr diastolic HF CAD s/p CABG, bioprosthetic AVR clinically stable Perm AF rate controlled - continue eliquis for stroke prophylaxis 2D echo 2018 showed EF 50% - will repeat it if covid negative Thank you for your consultation NEDRA LOPEZ APRN Mar 23, 2020 11:15 JUNE RODRIGUES MD Mar 23, 2020 18:56
--- NOTE | 2020-03-23 11:46 | EKG ---
[facility] [address] [place] [address] Test Date: 2020-03-22 Test Time: 10:31:02 Pat Name: JESSE MCGEE Department: Room: [facility] Gender: M Bird Tender: : 1945 Requested By: MADELYN SHINE Order Number: [id number] Reading MD: Mohinder Fink Measurements Intervals Dougherty Rate: 66 P: HI: QRS: -3 QRSD: 92 T: -24 QT: 428 QTc: 451 Interpretive Statements ATRIAL FIBRILLATION NON-SPECIFIC ST/T CHANGES Electronically Signed On 03-23-2020 13:34:48 CARDIO TECH by Mohinder Fink
--- NOTE | 2020-03-23 12:01 | PDOC ---
[employer] PROGRESS NOTE Date of Service DOS: DATE: 03/23/20 TIME: 12:01 Chief Complaint Chief Complaint A/P: Acute respiratory failure with hypoxia - likely CHF related, will diurese. Check COVID 19 Acute diastolic CHF - diurese. Consult cardiology and nephrology. Cannot tolerate BB due to bradycardia Abnormal CXR - will check procalcitonin, not clear if pneumonia is present Leukopenia - will monitor, check COVID 19 Anemia - likely of chronic disease, previously did require iron infusions ANDREINA on CKD - likely vasomotor nephropathy from cardiorenal syndrome. Will consult nephrology. He sees nephro at the [facility] CAD s/p CABG in 2019 - cont ASA, statin Permanent Afib - cannot tolerate BB due to symptomatic bradycardia, on eliquis HTN - monitor, prn hydralazine HLD - cont statin DM2 - sliding scale Aortic stenosis - s/p porcine AVR Valvular insufficiency: mild MR and mod to severe TR PAD - prior left ICA noted occluded FEN - cardiac diet, 1L fluid restriction PPX - Eliquis FULL CODE Dispo - inpatient CVC History of Present Illness History of Present Illness Mr Lee is a 74yo M [employer] with PMHx A-Fib, Anemia, CAD s/p CABG 2019, Crohns disease, Diabetes-Type II, High Cholesterol, Heart Disease, Hypertension, recurrent right pleural effusions, aortic stenosis, CKD, ALESIA who presented to ER for evaluation of trouble breathing in the last week. Patient stated that he GAINED 10 lbs in a week. Patient has history of CHF, he was on torsemide 20 mg daily increased a few months ago to twice daily and then to 40 mg twice daily but has noticed decreased urine output recently. Patient denies any cough or fever, no chest pain, no abdominal pain, no nausea vomiting.. The symptoms are worse with any type of exertional activities. Patient said since his open heart surgery January 2019, he has have episodic cramping pain on left side of his chest. EKG was done 1031, heart rate of 66 bpm, A. fib, no STEMI. Chest radiograph with suspected partially consolidated lingular and left lower lobe infiltrate with small pleural effusion. Labs with WBC 3.6, Hb 9.1, platelets 133, INR 2.1, albumin 3.4, lactate 1.8, BNP 10,275, troponin 0, BUN 66, CR 3.6 Admitted for further care. Carlos inserted for strict I/O. Has 1800cc UOP. Not feeling significantly improved. Afebrile. Still on O2. Labs pending. Plan: CT chest to assess pleural effusion Vitals/I&O Vitals/I&O: Vital Signs Date Time Temp Pulse Resp B/P (MAP) Pulse Ox O2 Delivery O2 Flow Rate FiO2 03/23/20 07:00 97.0 58 16 120/71 (87) 99 Nasal Cannula 3.0 97.0 I & O 03/22/20 03/22/20 03/23/20 15:00 23:00 07:00 Intake Total 640 ml Output Total 1600 ml Balance -960 ml Physical Exam General: Alert, Oriented X3, Cooperative, moderate distress Lungs: Clear, Other Abdomen: Normal bowel sounds, Soft, No tenderness, No hepatosplenomegaly, No masses Extremities: Other (3+ edema) Skin: Other (Venous stasis dermatitis) Assessment and Plan Assessmemt and Plan Problems Medical Problems: (1) Acute on chronic renal failure Status: Acute (2) CHF exacerbation Status: Acute (3) Person under investigation for COVID-19 Status: Acute (4) Pneumonia Status: Acute Comment Review of Relevant I have reviewed the following items bernadine (where applicable) has been applied. Medications: Current Medications Medications (Trade) Dose Ordered Sig/Jose Route PRN Reason Start Time Stop Time Status Last Admin Dose Admin Ceftriaxone Sodium (Rocephin) 1 gm 1X ONCE IVP 03/22/20 12:30 03/22/20 12:31 DC 03/22/20 12:32 Bumetanide (Bumex) 2.5 mg BID92 IV 03/22/20 17:00 03/23/20 09:28 Aspirin (Aspirin Chewable) 81 mg DAILY PO 03/23/20 09:00 03/23/20 08:39 Atorvastatin Calcium (Lipitor) 40 mg HS PO 03/22/20 21:00 03/22/20 22:40 Vitamin D (Vitamin D3) 2,000 unit DAILY PO 03/23/20 09:00 03/23/20 08:39 Pantoprazole Sodium (Protonix) 40 mg DAILYAC PO 03/23/20 07:30 03/23/20 08:39 Apixaban (Eliquis) 5 mg BID PO 03/22/20 21:00 03/23/20 08:39 Justifications for Admission Other Justification AZUCENA VENTURA MD Mar 23, 2020 12:01
--- NOTE | 2020-03-23 12:16 | PDOC2 ---
CONSULT Date of Consult Date of Consult DATE: 03/23/20 TIME: 12:13 Reason for Consult Reason for Consult: ANDREINA on CKD Source Source: Chart review, Patient History of Present Illness Reason for Visit: Mr Lee is a 74yo M [employer] with PMHx A-Fib, Anemia, CAD s/p CABG 2018, Crohns disease, Diabetes-Type II, High Cholesterol, Heart Disease, Hypertension, recurrent right pleural effusions, aortic stenosis, CKD, ALESIA who presented to ER for evaluation of trouble breathing in the last week. Patient stated that he GAINED 10 lbs in a week. Patient has history of CHF, he was on torsemide 20 mg daily increased a few months ago to twice daily and then to 40 mg twice daily but has noticed decreased urine output recently. Patient denies any cough or fever, no chest pain, no abdominal pain, no nausea vomiting.. The symptoms are worse with any type of exertional activities. Patient said since his open heart surgery January 2019, he has have episodic cramping pain on left side of his chest He is followed by Dr. Lopez in Nephrology and was seen by [facility] [facility] [facility] in Mar /apr 2019, . Baseline Creat has been upto2.8 with eGFR Chest radiograph with suspected partially consolidated lingular and left lower lobe infiltrate with small pleural effusion. Past Medical History Cardiovascular: CAD, HTN, Hyperlipidemia Pulmonary: Pneumonia, Other CENTRAL NERVOUS SYSTEM: Other GI: Inflam bowel disease Heme/Onc: Cancer Psych: No pertinent hx Musculoskeletal: Osteoarthritis Rheumatologic: No pertinent hx Infectious disease: No pertinent hx Renal/: Benign prostatic enlarg. Endocrine: Diabetes Past Surgical History Past Surgical History: Appendectomy, Cholecystectomy, Colon Resection, Other Family History Family History: Heart Disease, Hypertension Social History No ALCOHOL: other Drugs: None Lives: with Family Current Problem List Problem List Problems Medical Problems: (1) Acute on chronic renal failure Status: Acute (2) CHF exacerbation Status: Acute (3) Person under investigation for COVID-19 Status: Acute (4) Pneumonia Status: Acute Current Medications Current Medications Current Medications Ceftriaxone Sodium (Rocephin) 1 gm 1X ONCE IVP Last administered on 03/22/20at 12:32; Start 03/22/20 at 12:30; Stop 03/22/20 at 12:31; Status DC Bumetanide (Bumex) 2.5 mg BID92 IV Last administered on 03/23/20at 09:28; Start 03/22/20 at 17:00 Albuterol Sulfate (Ventolin Neb Soln) 2.5 mg PRN Q4HRS PRN NEB SHORTNESS OF BREATH; Start 03/22/20 at 17:00 Aspirin (Aspirin Chewable) 81 mg DAILY PO Last administered on 03/23/20at 08:39; Start 03/23/20 at 09:00 Atorvastatin Calcium (Lipitor) 40 mg HS PO Last administered on 03/22/20at 22:40; Start 03/22/20 at 21:00 Vitamin D (Vitamin D3) 2,000 unit DAILY PO Last administered on 03/23/20at 08:39; Start 03/23/20 at 09:00 Acetaminophen/ Hydrocodone Bitart (Lortab 7.5/325) 1 tab PRN Q6HRS PRN PO MODERATE TO SEVERE PAIN; Start 03/22/20 at 17:00 Warfarin Sodium (Coumadin) 2.5 mg DAILY16 PO ; Start 03/22/20 at 18:00; Stop 03/22/20 at 19:09; Status DC Pantoprazole Sodium (Protonix) 40 mg DAILYAC PO Last administered on 03/23/20at 08:39; Start 03/23/20 at 07:30 Ondansetron HCl (Zofran) 4 mg PRN Q4HRS PRN IV NAUSEA/VOMITING; Start 03/22/20 at 19:15 Acetaminophen (Tylenol) 650 mg PRN Q4HRS PRN PO TEMP OVER 100.4F OR MILD PAIN; Start 03/22/20 at 19:15 Apixaban (Eliquis) 5 mg BID PO Last administered on 03/23/20at 08:39; Start 03/22/20 at 21:00 Active Scripts Active Proair Hfa (Albuterol Sulfate) 8.5 Gm Hfa.aer.ad 2.5 Mg NEB PRN Q4HRS PRN Reported Eliquis (Apixaban) 5 Mg Tablet 5 Mg PO BID Gabapentin 300 Mg Capsule 300 Mg PO BID Torsemide 20 Mg Tablet 1 Tab PO BID Ferrous Sulfate 325 Mg Tablet 324 Mg PO BID Aspirin 81 Mg Tab.chew 1 Tab PO DAILY Cyanocobalamin Injection (Cyanocobalamin (Vitamin B-12)) 1,000 Mcg/1 Ml Vial 1,000 Mcg IJ QMONTH Hydrocodone-Apap 7.5-325 (Hydrocodone Bit/Acetaminophen) 1 Each Tablet 1 Tab PO PRN Q6HRS PRN Vitamin D3 (Cholecalciferol (Vitamin D3)) 1,000 Unit Tablet 2,000 Unit PO DAILY Humira (Adalimumab) 40 Mg/0.8 Ml Pen.ij.kit 1 Syr SQ Q2WKS Omeprazole 40 Mg Capsule.dr 1 Cap PO DAILY Atorvastatin Calcium 40 Mg Tablet 1 Tab PO HS Allergies Allergies: Coded Allergies: furosemide (Verified Allergy, Severe, Swelling, 04/07/19) amlodipine (Verified Allergy, Intermediate, Swelling, 04/07/19) azathioprine (Verified Allergy, Intermediate, n/v, 04/07/19) infliximab (Verified Allergy, Intermediate, rash, 04/07/19) ROS Review of System A s per HPI , rest of the ROS is negative Physical Exam Physical Exam General: No acute distress HEENT: Atraumatic, Mucous membr. moist/pink Neck Supple Lungs: bibasilar crackles, expiratory wheezes,non labored Heart: IRRR; AFIB), (2/6 systolic murmur to LLS border) Abdomen: Soft, No tenderness Extremities: No cyanosis, 2+ bilateral LE edema Skin: No Rash Neuro: Grossly normal Psych/Mental Status: Mental status NL, Mood NL No Carlos Vital Signs Vital Signs Date Time Temp Pulse Resp B/P (MAP) Pulse Ox O2 Delivery O2 Flow Rate FiO2 03/23/20 07:00 97.0 58 16 120/71 (87) 99 Nasal Cannula 3.0 97.0 Assessment & Plan ANDREINA -Cardiorenal Lasix gtt, close monitoring of renal function, strict I/O CKD stage 3B/4- Most recent Cr in July 18. , follows with Dr. Lopez Acute respiratory failure secondary to CHF Acute on chronic diastolic CHF; Echo 2018 with LVEF 50% CAD s/p PCI/multiple stents and CABG in 2019. Follows with [place] [facility]ology, Dr. Jimenez Permanent AFIB: rate controlled. Not on BB due to bradycardia. On Eliquis Hypertension; controlled Diabetes, II Crohn's Disease; chronic immunosuppression with Humira s/p bioprosthetic AVR Hx of asymptomatic bradycardia Leukopenia Anemia- follows with Dr. Servin as OP PUI; COVID pending Labs Labs Laboratory Tests Test 1/4/21 10:44 White Blood Count 3.6 x10^3/uL (4.0-11.0) Red Blood Count 3.07 x10^6/uL (4.30-5.70) Hemoglobin 9.1 g/dL (13.0-17.5) Hematocrit 28.1 % (39.0-53.0) Mean Corpuscular Volume 92 fL (79-100) Mean Corpuscular Hemoglobin 30 pg (25-35) Mean Corpuscular Hemoglobin Concent 33 g/dL (31-37) Red Cell Distribution Width 16.1 % (11.5-14.5) Platelet Count 133 x10^3/uL (140-400) Neutrophils (%) (Auto) 65 % (31-73) Lymphocytes (%) (Auto) 10 % (24-48) Monocytes (%) (Auto) 11 % (0-9) Eosinophils (%) (Auto) 12 % (0-3) Basophils (%) (Auto) 3 % (0-3) Neutrophils # (Auto) 2.3 x10^3/uL (1.8-7.7) Lymphocytes # (Auto) 0.3 x10^3/uL (1.0-4.8) Monocytes # (Auto) 0.4 x10^3/uL (0.0-1.1) Eosinophils # (Auto) 0.4 x10^3/uL (0.0-0.7) Basophils # (Auto) 0.1 x10^3/uL (0.0-0.2) Segmented Neutrophils % 74 % (35-66) Lymphocytes % 8 % (24-48) Monocytes % 8 % (0-10) Eosinophils % 10 % (0-5) Platelet Estimate Decreased (ADEQUATE) Prothrombin Time 22.9 SEC (11.7-14.0) Prothromb Time International Ratio 2.1 (0.8-1.1) Sodium Level 140 mmol/L (136-145) Potassium Level 3.9 mmol/L (3.5-5.1) Chloride Level 101 mmol/L (98-107) Carbon Dioxide Level 26 mmol/L (21-32) Anion Gap 13 (6-14) Blood Urea Nitrogen 66 mg/dL (8-26) Creatinine 3.6 mg/dL (0.7-1.3) Estimated GFR (Cockcroft-Gault) 16.7 BUN/Creatinine Ratio 18 (6-20) Glucose Level 102 mg/dL (70-99) Lactic Acid Level 1.8 mmol/L (0.4-2.0) Calcium Level 8.7 mg/dL (8.5-10.1) Magnesium Level 2.1 mg/dL (1.8-2.4) Total Bilirubin 1.1 mg/dL (0.2-1.0) Aspartate Amino Transf (AST/SGOT) 13 U/L (15-37) Alanine Aminotransferase (ALT/SGPT) 14 U/L (16-63) Alkaline Phosphatase 112 U/L (46-116) Troponin I Quantitative < 0.017 ng/mL (0.000-0.055) YW-Xde-E-Type Natriuretic Peptide 91989 pg/mL (0-124) Total Protein 8.0 g/dL (6.4-8.2) Albumin 3.4 g/dL (3.4-5.0) Albumin/Globulin Ratio 0.7 (1.0-1.7) Procalcitonin < 0.10 ng/mL (0.00-0.10) Review All relevant outside records, renal labs, imaging studies, telemetry/EKG's were reviewed. Images Images Chest, single view. HISTORY: Difficulty breathing. COMPARISON: 04/14/2019 FINDINGS: A frontal view of the chest is obtained. There is increased left lower lobe and lingular opacity likely due to partially consolidated infiltrate. There is a small left pleural effusion. There is a stable cardiac silhouette and evidence of prior CABG. There is no pneumothorax. IMPRESSION: Suspected partially consolidated lingular and left lower lobe infiltrate with small pleural effusion. MIMI LUX MD Mar 23, 2020 12:16
[2020-03-23 14:12] LABS: BASO # 0.1 x10^3/uL (0.0-0.2); BASO % 2 % (0-3); EOS # 0.5 x10^3/uL (0.0-0.7); EOS % 12 % (0-3); HEMATOCRIT 28.6 % (39.0-53.0); HEMOGLOBIN 9.3 g/dL (13.0-17.5); LYMPH # 0.3 x10^3/uL (1.0-4.8); LYMPH % 7 % (24-48); MEAN CORPUSCULAR HEMOGLOBIN 30 pg (25-35); MEAN CORPUSCULAR HGB CONC 33 g/dL (31-37); MEAN CORPUSCULAR VOLUME 93 fL (79-100); MONO # 0.4 x10^3/uL (0.0-1.1); MONO % 10 % (0-9); NEUT # 2.7 x10^3/uL (1.8-7.7); NEUT % 69 % (31-73); PLATELET COUNT 134 x10^3/uL (140-400); RED BLOOD COUNT 3.09 x10^6/uL (4.30-5.70); RED CELL DISTRIBUTION WIDTH 15.9 % (11.5-14.5)
[2020-03-23 14:22] LABS: GFR 20.6; POTASSIUM 3.9 mmol/L (3.5-5.1); PROTHROMBIN TIME PATIENT 22.1 SEC (11.7-14.0)
[2020-03-23 15:00] VITALS: BP 140/73
--- NOTE | 2020-03-23 17:19 | NUR ---
SW following for discharge planning. Spoke with RN and reviewed chart. Pt on 3 02, COVID pending, renal diet. Discharge plan is home, self-care.
--- NOTE | 2020-03-23 17:30 | NUR ---
Wound Care Wound Type/Assessment: Pt has a Swanson I Diabetic ulcer on his L distal great toe. Wound bed is red, non-granulated, appears clean and superficial, periwound is minimally callused, no redness or fluctuance noted, palpable pedal pulse, foot warm and dry. Treatment Recommendations/Plan: Clean with saline, apply Xeroform gauze, cover with a telfa/bandaid, change every other day. Education provided: to pt re: daily foot checks and always wearing his diabetic footwear when ambulating, pt v/u. Offloading surface/device: Diabetic shoes, pt states he has. Recommended Referrals/Tests: n/a Discharge Recommendations for dressings: see treatment plan above.
[2020-03-23 19:00] VITALS: BP 128/68
[2020-03-23] MEDS: ATORVASTATIN CALCIUM 40 MG TABLET. PO SCH (20:47)
[2020-03-23 23:56] VITALS: BP 102/52
[2020-03-24] MEDS: HYDROcodone/APAP 7.5/325MG 1 TAB TABLET PO PRN (02:35)
[2020-03-24 03:33] VITALS: BP 107/70
[2020-03-24] MEDS: PANTOPRAZOLE 40 MG TABLET.DR. PO SCH (05:30)
[2020-03-24 07:00] VITALS: BP 119/76
[2020-03-24] MEDS: APIXABAN 5 MG TABLET. PO SCH (08:25)
[2020-03-24] MEDS: CHOLECALCIFEROL (VITAMIN D3) 1,000 UNIT TABLET PO SCH (08:25)
[2020-03-24] MEDS: BUMETANIDE 2.5 MG/10 ML VIAL. IV SCH ×2 (08:25→13:57)
[2020-03-24] MEDS: ASPIRIN CHEWABLE 81 MG TABLET. PO SCH (08:25)
--- NOTE | 2020-03-24 08:35 | RAD ---
EXAM: Chest CT without intravenous contrast. HISTORY: Pleural effusion. Hypoxia. TECHNIQUE: Computed tomographic images of the chest were obtained without contrast. Multiplanar refor matting was performed. *One or more of the following individualized dose reduction techniques were utilized for this examina tion: 1. Automated exposure control. 2. Adjustment of the mA and/or kV according to patient size. 3. Use of iterative reconstruction technique. COMPARISON: 12/22/2017. FINDINGS: There is a moderate posterior layering right pleural effusion. There is a moderate left ple ural effusion which appears to be partially loculated along the medial and lateral inferior thorax an d within the left pleural fissure. There is cardiomegaly. There is evidence of median sternotomy, cor onary artery bypass and aortic valve replacement. There is aortic atherosclerosis. The aorta is guru l in caliber. There are enlarged mediastinal and hilar lymph nodes. For reference purposes, there is a right paratr acheal lymph node measuring 1.7 cm. There is a single bilobed hypodense lesion or 2 adjacent hypodens e lesions lesions within the left anterior cardiophrenic angle measuring 6.2 cm in conglomerate. Ther e are prominent lymph nodes within the right anterior cardiophrenic angle. There are prominent retroc rural and distal esophageal lymph nodes. There is no pneumothorax. There is multifocal groundglass infiltrate scattered throughout both lungs. There is superimposed bilateral basilar compressive atelectasis. No suspicious pulmonary nodule is s een. There is no acute finding involving the upper abdomen. There is gynecomastia. There is body wall edema. There is degenerative change throughout the visualized spine. There is partial visualization of lumbar fusion instrumentation. There are mild chronic appearing compression deformities at the low er thoracic vertebral levels. There is bone demineralization. IMPRESSION: 1. Moderate layering right pleural effusion and moderate partially loculated left pleural effusion wi th bilateral basilar compressive atelectasis. 2. Patchy groundglass infiltrate throughout both lungs. 3. Mediastinal, paraesophageal and cardiophrenic angle lymphadenopathy. This is slightly increased co mpared to the prior study, favoring a reactive etiology rather than underlying neoplasm. There is a b ilobed hypodense lesion or 2 adjacent lesions within the left cardiophrenic angle which is also likel y due to lymphadenopathy given the absence of a cystic lesion in this location on the prior study. 4. Cardiomegaly and postoperative mediastinal changes described above. 5. Body wall edema. Electronically signed by: Teri Sepulveda MD (03/24/2020 8:33 AM) [id number]
[2020-03-24 10:23] LABS: BASO # 0.1 x10^3/uL (0.0-0.2); BASO % 2 % (0-3); EOS # 0.5 x10^3/uL (0.0-0.7); EOS % 12 % (0-3); HEMATOCRIT 27.1 % (39.0-53.0); HEMOGLOBIN 8.6 g/dL (13.0-17.5); LYMPH # 0.3 x10^3/uL (1.0-4.8); LYMPH % 7 % (24-48); MEAN CORPUSCULAR HEMOGLOBIN 30 pg (25-35); MEAN CORPUSCULAR HGB CONC 32 g/dL (31-37); MEAN CORPUSCULAR VOLUME 93 fL (79-100); MONO # 0.5 x10^3/uL (0.0-1.1); MONO % 11 % (0-9); NEUT # 2.9 x10^3/uL (1.8-7.7); NEUT % 68 % (31-73); PLATELET COUNT 128 x10^3/uL (140-400); RED BLOOD COUNT 2.92 x10^6/uL (4.30-5.70); WHITE BLOOD COUNT 4.2 x10^3/uL (4.0-11.0)
[2020-03-24 10:37] LABS: CALCIUM 8.9 mg/dL (8.5-10.1); CREATININE 3.1 mg/dL (0.7-1.3); GFR 19.8
[2020-03-24 10:38] LABS: POTASSIUM 3.4 mmol/L (3.5-5.1)
[2020-03-24 11:00] VITALS: BP 113/69
--- NOTE | 2020-03-24 11:18 | PDOC ---
[facility] [employer] [employer] 03/24/20 1118: CARDIO Progress Notes Date and Time Date of Service 03/24/19 Time of Evaluation 1115 Subjective Subjective: No Chest Pain, No Palpitations, Other (SOA better, but persists ) Vitals Vitals Vital Signs Date Time Temp Pulse Resp B/P (MAP) Pulse Ox O2 Delivery O2 Flow Rate FiO2 03/24/20 07:00 96.5 63 18 119/76 (90) 100 Nasal Cannula 3.0 96.5 Weight Weight [ ] Input and Output Intake and Output Intake and Output 03/24/20 07:00 Intake Total 800 ml Output Total 2750 ml Balance -1950 ml Intake Oral 800 ml Output Urine Total 2750 ml Laboratory Labs Laboratory Tests Test 03/23/20 13:36 03/24/20 10:01 White Blood Count 4.0 x10^3/uL (4.0-11.0) 4.2 x10^3/uL (4.0-11.0) Red Blood Count 3.09 x10^6/uL (4.30-5.70) 2.92 x10^6/uL (4.30-5.70) Hemoglobin 9.3 g/dL (13.0-17.5) 8.6 g/dL (13.0-17.5) Hematocrit 28.6 % (39.0-53.0) 27.1 % (39.0-53.0) Mean Corpuscular Volume 93 fL (79-100) 93 fL (79-100) Mean Corpuscular Hemoglobin 30 pg (25-35) 30 pg (25-35) Mean Corpuscular Hemoglobin Concent 33 g/dL (31-37) 32 g/dL (31-37) Red Cell Distribution Width 15.9 % (11.5-14.5) 16.0 % (11.5-14.5) Platelet Count 134 x10^3/uL (140-400) 128 x10^3/uL (140-400) Neutrophils (%) (Auto) 69 % (31-73) 68 % (31-73) Lymphocytes (%) (Auto) 7 % (24-48) 7 % (24-48) Monocytes (%) (Auto) 10 % (0-9) 11 % (0-9) Eosinophils (%) (Auto) 12 % (0-3) 12 % (0-3) Basophils (%) (Auto) 2 % (0-3) 2 % (0-3) Neutrophils # (Auto) 2.7 x10^3/uL (1.8-7.7) 2.9 x10^3/uL (1.8-7.7) Lymphocytes # (Auto) 0.3 x10^3/uL (1.0-4.8) 0.3 x10^3/uL (1.0-4.8) Monocytes # (Auto) 0.4 x10^3/uL (0.0-1.1) 0.5 x10^3/uL (0.0-1.1) Eosinophils # (Auto) 0.5 x10^3/uL (0.0-0.7) 0.5 x10^3/uL (0.0-0.7) Basophils # (Auto) 0.1 x10^3/uL (0.0-0.2) 0.1 x10^3/uL (0.0-0.2) Prothrombin Time 22.1 SEC (11.7-14.0) 22.0 SEC (11.7-14.0) Prothromb Time International Ratio 2.0 (0.8-1.1) 2.0 (0.8-1.1) Sodium Level 136 mmol/L (136-145) 139 mmol/L (136-145) Potassium Level 3.9 mmol/L (3.5-5.1) 3.4 mmol/L (3.5-5.1) Chloride Level 99 mmol/L (98-107) 101 mmol/L (98-107) Carbon Dioxide Level 31 mmol/L (21-32) 33 mmol/L (21-32) Anion Gap 6 (6-14) 5 (6-14) Blood Urea Nitrogen 57 mg/dL (8-26) 52 mg/dL (8-26) Creatinine 3.0 mg/dL (0.7-1.3) 3.1 mg/dL (0.7-1.3) Estimated GFR (Cockcroft-Gault) 20.6 19.8 Glucose Level 125 mg/dL (70-99) 114 mg/dL (70-99) Calcium Level 9.0 mg/dL (8.5-10.1) 8.9 mg/dL (8.5-10.1) Microbiology Micro Microbiology 03/22/20 Blood Culture - Preliminary, Resulted NO GROWTH AFTER 1 DAY Physical Exam Chest: Symmetric LUNGS: Other (bibasilar crackles ) Heart: irregularly irregular (AFIB, rate controlled ) Abdomen: Soft N/T Extremities: Other (2+ bilateral LE edema ) Neurology: alert, oriented, follow commands Assessment Assessment 1. Acute respiratory failure secondary to CHF, bilateral pleural effusion 2. Acute on chronic diastolic CHF; Echo 2019 with LVEF 50% 3. ANDREINA on CKD 4. CAD s/p PCI/multiple stents and CABG in 2019. Follows with [place] cardiology, Dr. Jimenez 5. Permanent AFIB: rate controlled. Not on BB due to bradycardia. On Eliquis 6. Hypertension; controlled 7. Hyperlipidemia; statin 8. Diabetes, II 9. Crohn's Disease; chronic immunosuppression with Humira 10. s/p bioprosthetic AVR 11. Hx of asymptomatic bradycardia 12. Leukopenia 13. Anemia 14. PUI; COVID PCR negative Recommendations Diuresis with close monitoring of renal function. Secondary prevention measures Okay to hold Eliquis for possible thoracentesis No ACEI/ARB with ANDREINA Avoid AV peter blocking agents. Obtain cardiac records from the [place] Echo to assess LV systolic function Justicifation of Admission Dx: Justifications for Admission: Justification of Admission Dx: Yes Comments: Acute on chronic CHF Pleural effusion JUNE RODRIGUES MD 03/24/20 1648: CARDIO Progress Notes Assessment Assessment Patient seen and examined. Agree with DERMATOLOGIST's assessment and plan. Continue diuresis for ac on chr diastolic HF CAD s/p CABG, bioprosthetic AVR clinically stable Perm AF rate controlled -okay to hold Eliquis for thoracentesis if needed Covid negative. Check 2D echo to assess LV systolic function and evaluate bioprosthetic AVR function. NEDRA LOPEZ APRN Mar 24, 2020 11:18 JUNE RODRIGUES MD Mar 24, 2020 16:48
--- NOTE | 2020-03-24 11:36 | PDOC ---
[facility] PROGRESS NOTE Date of Service DOS: DATE: 03/24/20 TIME: 11:16 Chief Complaint Chief Complaint A/P: Acute respiratory failure with hypoxia - likely CHF related, will diurese. Check COVID 19 Acute diastolic CHF - diurese. Consult cardiology and nephrology. Cannot tolerate BB due to bradycardia Abnormal CXR - will check procalcitonin, not clear if pneumonia is present Leukopenia - will monitor, check COVID 19 Anemia - likely of chronic disease, previously did require iron infusions ANDREINA on CKD - likely vasomotor nephropathy from cardiorenal syndrome. Will consult nephrology. He sees nephro at the [facility] CAD s/p CABG in 2019 - cont ASA, statin Permanent Afib - cannot tolerate BB due to symptomatic bradycardia, on eliquis HTN - monitor, prn hydralazine HLD - cont statin DM2 - sliding scale Aortic stenosis - s/p porcine AVR Valvular insufficiency: mild MR and mod to severe TR PAD - prior left ICA noted occluded Bilateral pleural effusions - left partially loculated. Consult IR and pulm FEN - cardiac diet, 1L fluid restriction PPX - Eliquis FULL CODE Dispo - inpatient CVC History of Present Illness History of Present Illness Mr Lee is a 74yo M [employer] with PMHx A-Fib, Anemia, CAD s/p CABG 2019, Crohns disease, Diabetes-Type II, High Cholesterol, Heart Disease, H ypertension, recurrent right pleural effusions, aortic stenosis, CKD, ALESIA who presented to ER for evaluation of trouble breathing in the last week. Patient stated that he GAINED 10 lbs in a week. Patient has history of CHF, he was on torsemide 20 mg daily increased a few months ago to twice daily and then to 40 mg twice daily but has noticed decreased urine output recently. Patient denies any cough or fever, no chest pain, no abdominal pain, no nausea vomiting.. The symptoms are worse with any type of exertional activities. Patient said since his open heart surgery January 2019, he has have episodic cramping pain on left side of his chest. EKG was done 1031, heart rate of 66 bpm, A. fib, no STEMI. Chest radiograph with suspected partially consolidated lingular and left lower lobe infiltrate with small pleural effusion. Labs with WBC 3.6, Hb 9.1, platelets 133, INR 2.1, albumin 3.4, lactate 1.8, BNP 10,275, troponin 0, BUN 66, CR 3.6 Admitted for further care. 03/23: Carlos inserted for strict I/O. Has 1800cc UOP. Not feeling significantly improved. Afebrile. Still on O2. Labs stable Febrile. Covid negative. CT chest with layering right pleural effusion partially loculated left pleural effusion and groundglass infiltrate throughout lungs. Plan: Consult Pulm for pleural effusions, will hold eliquis in anticipation of possible IR drain, likely bilaterally Vitals/I&O Vitals/I&O: Vital Signs Date Time Temp Pulse Resp B/P (MAP) Pulse Ox O2 Delivery O2 Flow Rate FiO2 03/24/20 07:00 96.5 63 18 119/76 (90) 100 Nasal Cannula 3.0 96.5 I & O 03/23/20 03/23/20 03/24/20 15:00 23:00 07:00 Intake Total 400 ml 200 ml 200 ml Output Total 2100 ml 650 ml Balance 400 ml -1900 ml -450 ml Physical Exam General: Alert, Oriented X3, Cooperative, moderate distress Lungs: Clear, Other Abdomen: Normal bowel sounds, Soft, No tenderness, No hepatosplenomegaly, No masses Extremities: Other (3+ edema) Skin: Other (Venous stasis dermatitis) Labs Labs: Laboratory Tests Test 03/23/20 13:36 03/24/20 10:01 White Blood Count 4.0 x10^3/uL (4.0-11.0) 4.2 x10^3/uL (4.0-11.0) Red Blood Count 3.09 x10^6/uL (4.30-5.70) 2.92 x10^6/uL (4.30-5.70) Hemoglobin 9.3 g/dL (13.0-17.5) 8.6 g/dL (13.0-17.5) Hematocrit 28.6 % (39.0-53.0) 27.1 % (39.0-53.0) Mean Corpuscular Volume 93 fL (79-100) 93 fL (79-100) Mean Corpuscular Hemoglobin 30 pg (25-35) 30 pg (25-35) Mean Corpuscular Hemoglobin Concent 33 g/dL (31-37) 32 g/dL (31-37) Red Cell Distribution Width 15.9 % (11.5-14.5) 16.0 % (11.5-14.5) Platelet Count 134 x10^3/uL (140-400) 128 x10^3/uL (140-400) Neutrophils (%) (Auto) 69 % (31-73) 68 % (31-73) Lymphocytes (%) (Auto) 7 % (24-48) 7 % (24-48) Monocytes (%) (Auto) 10 % (0-9) 11 % (0-9) Eosinophils (%) (Auto) 12 % (0-3) 12 % (0-3) Basophils (%) (Auto) 2 % (0-3) 2 % (0-3) Neutrophils # (Auto) 2.7 x10^3/uL (1.8-7.7) 2.9 x10^3/uL (1.8-7.7) Lymphocytes # (Auto) 0.3 x10^3/uL (1.0-4.8) 0.3 x10^3/uL (1.0-4.8) Monocytes # (Auto) 0.4 x10^3/uL (0.0-1.1) 0.5 x10^3/uL (0.0-1.1) Eosinophils # (Auto) 0.5 x10^3/uL (0.0-0.7) 0.5 x10^3/uL (0.0-0.7) Basophils # (Auto) 0.1 x10^3/uL (0.0-0.2) 0.1 x10^3/uL (0.0-0.2) Prothrombin Time 22.1 SEC (11.7-14.0) 22.0 SEC (11.7-14.0) Prothromb Time International Ratio 2.0 (0.8-1.1) 2.0 (0.8-1.1) Sodium Level 136 mmol/L (136-145) 139 mmol/L (136-145) Potassium Level 3.9 mmol/L (3.5-5.1) 3.4 mmol/L (3.5-5.1) Chloride Level 99 mmol/L (98-107) 101 mmol/L (98-107) Carbon Dioxide Level 31 mmol/L (21-32) 33 mmol/L (21-32) Anion Gap 6 (6-14) 5 (6-14) Blood Urea Nitrogen 57 mg/dL (8-26) 52 mg/dL (8-26) Creatinine 3.0 mg/dL (0.7-1.3) 3.1 mg/dL (0.7-1.3) Estimated GFR (Cockcroft-Gault) 20.6 19.8 Glucose Level 125 mg/dL (70-99) 114 mg/dL (70-99) Calcium Level 9.0 mg/dL (8.5-10.1) 8.9 mg/dL (8.5-10.1) Assessment and Plan Assessmemt and Plan Problems Medical Problems: (1) Acute on chronic renal failure Status: Acute (2) CHF exacerbation Status: Acute (3) Person under investigation for COVID-19 Status: Acute (4) Pneumonia Status: Acute Comment Review of Relevant I have reviewed the following items bernadine (where applicable) has been applied. Justifications for Admission Other Justification AZUCENA VENTURA MD Mar 24, 2020 11:35
[2020-03-24] MEDS ORDERED: traZODone 50 MG TABLET. PO PRN (11:45)
--- NOTE | 2020-03-24 13:14 | PDOC ---
DATE OF SERVICE DATE: 03/24/20 TIME: 13:13 SUBJECTIVE ROS States SOB better, he is asking to move to non covid floor as he wants to see his family OBJECTIVE Vital Signs Vital Signs Date Time Temp Pulse Resp B/P (MAP) Pulse Ox O2 Delivery O2 Flow Rate FiO2 03/24/20 11:00 96.2 70 18 113/69 (84) 100 Nasal Cannula 3.0 96.2 I & 0 Intake and Output 03/24/20 07:00 Intake Total 800 ml Output Total 2750 ml Balance -1950 ml Intake Oral 800 ml Output Urine Total 2750 ml PHYSICAL EXAM Physical Exam General: No acute distress HEENT: Atraumatic, Mucous membr. moist/pink Neck Supple Lungs: bibasilar crackles, expiratory wheezes,non labored Heart: IRRR; AFIB), (2/6 systolic murmur to LLS border) Abdomen: Soft, No tenderness Extremities: No cyanosis, 2+ bilateral LE edema Skin: No Rash Neuro: Grossly normal Psych/Mental Status: Mental status NL, Mood NL Carlos + DIAGNOSIS/ASSESSMENT Assessment & Plan ANDREINA -Cardiorenal , stable renal function Continue Lasix gtt, close monitoring of renal function, strict I/O CKD stage 3B/4- Most recent Cr in 04.24 , follows with Dr. Lopez Acute respiratory failure secondary to CHF- cardiology following Moderate layering right pleural effusion and moderate partially loculated left pleural effusion with bilateral basilar compressive atelectasis- recommendations per Pulm Patchy groundglass infiltrate throughout both lungs. Mediastinal, paraesophageal and cardiophrenic angle lymphadenopathy. This is slightly increased compared to the prior study, favoring a reactive etiology rather than underlying neoplasm. There is a bilobed hypodense lesion or 2 adjacent lesions within the left cardiophrenic angle which is also likely due to lymphadenopathy given the absence of a cystic lesion in this location on the prior study. Acute on chronic diastolic CHF; Echo 2018 with LVEF 50% CAD s/p PCI/multiple stents and CABG in 2019. Follows with [place] [facility], Dr. Jimenez Permanent AFIB: rate controlled. Not on BB due to bradycardia. On Eliquis Hypertension; controlled Diabetes, II Crohn's Disease; chronic immunosuppression with Humira s/p bioprosthetic AVR Hx of asymptomatic bradycardia Leukopenia Anemia- follows with Dr. Servin as OP PUI; COVID negative COMMENT/RELEVANT DATA Meds Current Medications Medications (Trade) Dose Ordered Sig/Jose Start Time Stop Time Status Last Admin Dose Admin Acetaminophen (Tylenol) 650 mg PRN Q4HRS PRN 03/22/20 19:15 Acetaminophen/ Hydrocodone Bitart (Lortab 7.5/325) 1 tab PRN Q6HRS PRN 03/22/20 17:00 03/24/20 02:35 1 TAB Albuterol Sulfate (Ventolin Neb Soln) 2.5 mg PRN Q4HRS PRN 03/22/20 17:00 Apixaban (Eliquis) 5 mg BID 03/22/20 21:00 03/24/20 11:19 DC 03/24/20 08:25 5 MG Aspirin (Aspirin Chewable) 81 mg DAILY 03/23/20 09:00 03/24/20 08:25 81 MG Atorvastatin Calcium (Lipitor) 40 mg HS 03/22/20 21:00 03/23/20 20:47 40 MG Bumetanide (Bumex) 2.5 mg BID92 03/22/20 17:00 03/24/20 08:25 2.5 MG Ceftriaxone Sodium (Rocephin) 1 gm 1X ONCE 03/22/20 12:30 03/22/20 12:31 DC 03/22/20 12:32 1 GM Olanzapine (ZyPREXA ZYDIS) 5 mg PRN BID PRN 03/24/20 11:45 Ondansetron HCl (Zofran) 4 mg PRN Q4HRS PRN 03/22/20 19:15 Pantoprazole Sodium (Protonix) 40 mg DAILYAC 03/23/20 07:30 03/24/20 05:30 40 MG Psyllium Hydrophilic Mucilloid (Metamucil Fiber Packet) 1 pkt QHS 03/24/20 21:00 Trazodone HCl (Desyrel) 50 mg PRN QHS PRN 03/24/20 11:45 Vitamin D (Vitamin D3) 2,000 unit DAILY 03/23/20 09:00 03/24/20 08:25 2,000 UNIT Warfarin Sodium (Coumadin) 2.5 mg DAILY16 03/22/20 18:00 03/22/20 19:09 DC Lab Laboratory Tests Test 03/23/20 13:36 03/24/20 10:01 White Blood Count 4.0 x10^3/uL (4.0-11.0) 4.2 x10^3/uL (4.0-11.0) Red Blood Count 3.09 x10^6/uL (4.30-5.70) 2.92 x10^6/uL (4.30-5.70) Hemoglobin 9.3 g/dL (13.0-17.5) 8.6 g/dL (13.0-17.5) Hematocrit 28.6 % (39.0-53.0) 27.1 % (39.0-53.0) Mean Corpuscular Volume 93 fL (79-100) 93 fL (79-100) Mean Corpuscular Hemoglobin 30 pg (25-35) 30 pg (25-35) Mean Corpuscular Hemoglobin Concent 33 g/dL (31-37) 32 g/dL (31-37) Red Cell Distribution Width 15.9 % (11.5-14.5) 16.0 % (11.5-14.5) Platelet Count 134 x10^3/uL (140-400) 128 x10^3/uL (140-400) Neutrophils (%) (Auto) 69 % (31-73) 68 % (31-73) Lymphocytes (%) (Auto) 7 % (24-48) 7 % (24-48) Monocytes (%) (Auto) 10 % (0-9) 11 % (0-9) Eosinophils (%) (Auto) 12 % (0-3) 12 % (0-3) Basophils (%) (Auto) 2 % (0-3) 2 % (0-3) Neutrophils # (Auto) 2.7 x10^3/uL (1.8-7.7) 2.9 x10^3/uL (1.8-7.7) Lymphocytes # (Auto) 0.3 x10^3/uL (1.0-4.8) 0.3 x10^3/uL (1.0-4.8) Monocytes # (Auto) 0.4 x10^3/uL (0.0-1.1) 0.5 x10^3/uL (0.0-1.1) Eosinophils # (Auto) 0.5 x10^3/uL (0.0-0.7) 0.5 x10^3/uL (0.0-0.7) Basophils # (Auto) 0.1 x10^3/uL (0.0-0.2) 0.1 x10^3/uL (0.0-0.2) Prothrombin Time 22.1 SEC (11.7-14.0) 22.0 SEC (11.7-14.0) Prothromb Time International Ratio 2.0 (0.8-1.1) 2.0 (0.8-1.1) Sodium Level 136 mmol/L (136-145) 139 mmol/L (136-145) Potassium Level 3.9 mmol/L (3.5-5.1) 3.4 mmol/L (3.5-5.1) Chloride Level 99 mmol/L (98-107) 101 mmol/L (98-107) Carbon Dioxide Level 31 mmol/L (21-32) 33 mmol/L (21-32) Anion Gap 6 (6-14) 5 (6-14) Blood Urea Nitrogen 57 mg/dL (8-26) 52 mg/dL (8-26) Creatinine 3.0 mg/dL (0.7-1.3) 3.1 mg/dL (0.7-1.3) Estimated GFR (Cockcroft-Gault) 20.6 19.8 Glucose Level 125 mg/dL (70-99) 114 mg/dL (70-99) Calcium Level 9.0 mg/dL (8.5-10.1) 8.9 mg/dL (8.5-10.1) Results All relevant outside records, renal labs, imaging studies, telemetry/EKG's were reviewed. Justicifation of Admission Dx: Justifications for Admission: Justification of Admission Dx: N/A MIMI LUX MD Mar 24, 2020 13:14
[2020-03-24 15:00] VITALS: BP 130/74
--- NOTE | 2020-03-24 16:46 | NUR ---
SW following for discharge planning. Spoke with RN and reviewed chart. Pt COVID result came back negative. Pt has home 02. Discharge plan remains home, self-care. Pt to transfer to . No further needs from this SW.
[2020-03-24 19:00] VITALS: BP 129/67
[2020-03-24] MEDS: PSYLLIUM HUSK (SUGAR FREE) 1 PKT PACKET PO SCH ×2 (21:00→21:59)
[2020-03-24] MEDS: ATORVASTATIN CALCIUM 40 MG TABLET. PO SCH (21:59)
[2020-03-24 23:00] VITALS: BP 97/52
[2020-03-25] VITALS (7 sets, daily range): BP systolic 101–158; BP diastolic 62–83
[2020-03-25] MEDS: PANTOPRAZOLE 40 MG TABLET.DR. PO SCH (08:10)
[2020-03-25] MEDS: CHOLECALCIFEROL (VITAMIN D3) 1,000 UNIT TABLET PO SCH (08:10)
[2020-03-25] MEDS: ASPIRIN CHEWABLE 81 MG TABLET. PO SCH (08:10)
[2020-03-25] MEDS: BUMETANIDE 2.5 MG/10 ML VIAL. IV SCH (08:11)
[2020-03-25] MEDS: HYDROcodone/APAP 7.5/325MG 1 TAB TABLET PO PRN ×2 (08:20→21:35)
--- NOTE | 2020-03-25 10:53 | PDOC ---
NEDRA LOPEZ [facility] 03/25/20 1053: CARDIO Progress Notes Date and Time Date of Service 03/25/19 Time of Evaluation 1050 Subjective Subjective: No Chest Pain, No Palpitations, Other (SOA better, but persists ) Vitals Vitals Vital Signs Date Time Temp Pulse Resp B/P (MAP) Pulse Ox O2 Delivery O2 Flow Rate FiO2 03/25/20 10:45 96.7 64 20 131/67 (88) 99 Nasal Cannula 3.0 96.7 Weight Weight [ ] Input and Output Intake and Output Intake and Output 03/25/20 07:00 Intake Total 400 ml Output Total 2200 ml Balance -1800 ml Intake Oral 400 ml Output Urine Total 2200 ml # Voids 1 # Bowel Movements 1 Microbiology Micro Microbiology 03/22/20 Blood Culture - Preliminary, Resulted NO GROWTH AFTER 2 DAYS Physical Exam HEENT: Neck Supple W Full Motion Chest: Symmetric LUNGS: Other (bibasilar crackles ) Heart: irregularly irregular (AFIB, rate controlled ) Abdomen: Soft N/T Extremities: Other (1-2+ bilateral LE edema ) Neurology: alert, oriented, follow commands Assessment Assessment 1. Acute respiratory failure secondary to CHF, bilateral pleural effusion. Thoracentesis today 2. Acute on chronic diastolic CHF; Echo 2019 with LVEF 50% 3. ANDREINA on CKD; Cr down to 2.5 4. CAD s/p PCI/multiple stents and CABG in 2019. Follows with [place] cardiology, Dr. Jimenez 5. Permanent AFIB: rate controlled. Not on BB due to bradycardia. On Eliquis 6. Hypertension; controlled 7. Hyperlipidemia; statin 8. Diabetes, II 9. Crohn's Disease; chronic immunosuppression with Humira 10. s/p bioprosthetic AVR 11. Hx of asymptomatic bradycardia 12. Leukopenia 13. Anemia 14. PUI; COVID PCR negative Recommendations Ongoing diuresis with monitoring of renal function. Secondary prevention measures Resume Eliquis for post thoracentesis No ACEI/ARB with ANDREINA Avoid AV peter blocking agents. Echo today to assess LV systolic function, evaluate AVR Justicifation of Admission Dx: Justifications for Admission: Justification of Admission Dx: N/A JUNE RODRIGUES MD 03/25/20 1653: CARDIO Progress Notes Assessment Assessment Patient seen and examined. Agree with C[facility] SPECIALIST's assessment and plan. Acute on chronic diastolic heart failure better compensated Thoracentesis being planned today CAD s/p CABG, bioprosthetic AVR clinically stable Perm AF rate controlled -resume Eliquis after thoracentesis Covid negative. Check 2D echo to assess LV systolic function and evaluate bioprosthetic AVR function. NEDRA LOPEZ APRN Mar 25, 2020 10:53 JUNE RODRIGUES MD Mar 25, 2020 16:53
--- NOTE | 2020-03-25 11:36 | PDOC ---
[employer] PROGRESS NOTE Date of Service DOS: DATE: 03/25/20 TIME: 11:35 Chief Complaint Chief Complaint A/P: Acute respiratory failure with hypoxia - likely CHF related, will diurese. Check COVID 19 Acute diastolic CHF - diurese. Consult cardiology and nephrology. Cannot tolerate BB due to bradycardia Abnormal CXR - will check procalcitonin, not clear if pneumonia is present Leukopenia - will monitor, check COVID 19 Anemia - likely of chronic disease, previously did require iron infusions ANDREINA on CKD - likely vasomotor nephropathy from cardiorenal syndrome. Will consult nephrology. He sees nephro at the [facility] CAD s/p CABG in 2019 - cont ASA, statin Permanent Afib - cannot tolerate BB due to symptomatic bradycardia, on eliquis HTN - monitor, prn hydralazine HLD - cont statin DM2 - sliding scale Aortic stenosis - s/p porcine AVR Valvular insufficiency: mild MR and mod to severe TR PAD - prior left ICA noted occluded Bilateral pleural effusions - left partially loculated. Consult IR and pulm FEN - cardiac diet, 1L fluid restriction PPX - Eliquis FULL CODE Dispo - inpatient [facility] History of Present Illness History of Present Illness Mr Lee is a 74yo M [employer] with PMHx A-Fib, Anemia, CAD s/p CABG 2019, Crohns disease, Diabetes-Type II, High Cholesterol, Heart Disease, H ypertension, recurrent right pleural effusions, aortic stenosis, CKD, ALESIA who presented to ER for evaluation of trouble breathing in the last week. Patient stated that he GAINED 10 lbs in a week. Patient has history of CHF, he was on torsemide 20 mg daily increased a few months ago to twice daily and then to 40 mg twice daily but has noticed decreased urine output recently. Patient denies any cough or fever, no chest pain, no abdominal pain, no nausea vomiting.. The symptoms are worse with any type of exertional activities. Patient said since his open heart surgery January 2019, he has have episodic cramping pain on left side of his chest. EKG was done 1031, heart rate of 66 bpm, A. fib, no STEMI. Chest radiograph with suspected partially consolidated lingular and left lower lobe infiltrate with small pleural effusion. Labs with WBC 3.6, Hb 9.1, platelets 133, INR 2.1, albumin 3.4, lactate 1.8, BNP 10,275, troponin 0, BUN 66, CR 3.6 Admitted for further care. 03/23: Carlos inserted for strict I/O. Has 1800cc UOP. Not feeling significantly improved. Afebrile. Still on O2. Labs stable 03/24: Afebrile. Covid negative. CT chest with layering right pleural effusion partially loculated left pleural effusion and groundglass infiltrate throughout lungs. Afebrile. Still requiring O2. Swelling improved. Urine output red tinged due to Carlos trauma. He is anxious about discharge. Did not sleep last night. Plan: IR drain, likely bilaterally Vitals/I&O Vitals/I&O: Vital Signs Date Time Temp Pulse Resp B/P (MAP) Pulse Ox O2 Delivery O2 Flow Rate FiO2 03/25/20 10:45 96.7 64 20 131/67 (88) 99 Nasal Cannula 3.0 96.7 I & O 03/24/20 03/24/20 03/25/20 15:00 23:00 07:00 Intake Total 300 ml 100 ml Output Total 1350 ml 850 ml Balance 300 ml -1250 ml -850 ml Physical Exam General: Alert, Oriented X3, Cooperative, moderate distress Lungs: Clear, Other Abdomen: Normal bowel sounds, Soft, No tenderness, No hepatosplenomegaly, No masses Extremities: Other (3+ edema) Skin: Other (Venous stasis dermatitis) Assessment and Plan Assessmemt and Plan Problems Medical Problems: (1) Acute on chronic renal failure Status: Acute (2) CHF exacerbation Status: Acute (3) Person under investigation for COVID-19 Status: Acute (4) Pneumonia Status: Acute Comment Review of Relevant I have reviewed the following items bernadine (where applicable) has been applied. Medications: Current Medications Medications (Trade) Dose Ordered Sig/Jose Route PRN Reason Start Time Stop Time Status Last Admin Dose Admin Trazodone HCl (Desyrel) 50 mg PRN QHS PRN PO INSOMNIA 03/24/20 11:45 03/24/20 22:22 Olanzapine (ZyPREXA ZYDIS) 5 mg PRN BID PRN PO ANXIETY / AGITATION 03/24/20 11:45 03/25/20 10:49 Justifications for Admission Other Justification AZUCENA VENTURA MD Mar 25, 2020 11:36
[2020-03-25 11:41] LABS: PROTHROMBIN TIME PATIENT 19.7 SEC (11.7-14.0)
[2020-03-25 11:49] LABS: CALCIUM 8.9 mg/dL (8.5-10.1); CREATININE 2.5 mg/dL (0.7-1.3); GFR 25.4; POTASSIUM 3.7 mmol/L (3.5-5.1)
--- NOTE | 2020-03-25 12:12 | PDOC ---
DATE OF SERVICE DATE: 03/25/20 TIME: 12:12 SUBJECTIVE ROS Stable OBJECTIVE Vital Signs Vital Signs Date Time Temp Pulse Resp B/P (MAP) Pulse Ox O2 Delivery O2 Flow Rate FiO2 03/25/20 10:45 96.7 64 20 131/67 (88) 99 Nasal Cannula 3.0 96.7 I & 0 Intake and Output 03/25/20 07:00 Intake Total 400 ml Output Total 2200 ml Balance -1800 ml Intake Oral 400 ml Output Urine Total 2200 ml # Voids 1 # Bowel Movements 1 PHYSICAL EXAM Physical Exam General: No acute distress HEENT: Atraumatic, Mucous membr. moist/pink Neck Supple Lungs: bibasilar crackles, expiratory wheezes,non labored Heart: IRRR; AFIB), (2/6 systolic murmur to LLS border) Abdomen: Soft, No tenderness Extremities: No cyanosis, 2+ bilateral LE edema Skin: No Rash Neuro: Grossly normal Psych/Mental Status: Mental status NL, Mood NL Carlos + DIAGNOSIS/ASSESSMENT Assessment & Plan ANDREINA -Cardiorenal ,improving renal function Continue Lasix gtt, close monitoring of renal function, strict I/O CKD stage 3B/4- Most recent Cr in 04.24 , follows with Dr. Lopez Acute respiratory failure secondary to CHF- cardiology following Moderate layering right pleural effusion and moderate partially loculated left pleural effusion with bilateral basilar compressive atelectasis-scheduled for thoracentesis today Patchy groundglass infiltrate throughout both lungs. Mediastinal, paraesophageal and cardiophrenic angle lymphadenopathy. This is slightly increased compared to the prior study, favoring a reactive etiology rather than underlying neoplasm. There is a bilobed hypodense lesion or 2 adjacent lesions within the left cardiophrenic angle which is also likely due to lymphadenopathy given the absence of a cystic lesion in this location on the prior study. Acute on chronic diastolic CHF; Echo 2018 with LVEF 50% CAD s/p PCI/multiple stents and CABG in 2019. Follows with [place] cardiology, Dr. Jimenez Permanent AFIB: rate controlled. Not on BB due to bradycardia. On Eliquis Hypertension; controlled Diabetes, II Crohn's Disease; chronic immunosuppression with Humira s/p bioprosthetic AVR Hx of asymptomatic bradycardia Leukopenia Anemia- follows with Dr. Servin as OP PUI; COVID negative COMMENT/RELEVANT DATA Meds Current Medications Medications (Trade) Dose Ordered Sig/Jose Start Time Stop Time Status Last Admin Dose Admin Acetaminophen (Tylenol) 650 mg PRN Q4HRS PRN 03/22/20 19:15 Acetaminophen/ Hydrocodone Bitart (Lortab 7.5/325) 1 tab PRN Q6HRS PRN 03/22/20 17:00 03/25/20 08:20 1 TAB Albuterol Sulfate (Ventolin Neb Soln) 2.5 mg PRN Q4HRS PRN 03/22/20 17:00 Apixaban (Eliquis) 5 mg BID 03/22/20 21:00 03/24/20 11:19 DC 03/24/20 08:25 5 MG Aspirin (Aspirin Chewable) 81 mg DAILY 03/23/20 09:00 03/25/20 08:10 81 MG Atorvastatin Calcium (Lipitor) 40 mg HS 03/22/20 21:00 03/24/20 21:59 40 MG Bumetanide (Bumex) 2.5 mg BID92 03/22/20 17:00 03/25/20 11:35 DC 03/25/20 08:11 2.5 MG Ceftriaxone Sodium (Rocephin) 1 gm 1X ONCE 03/22/20 12:30 03/22/20 12:31 DC 03/22/20 12:32 1 GM Olanzapine (ZyPREXA ZYDIS) 5 mg PRN BID PRN 03/24/20 11:45 03/25/20 10:49 5 MG Ondansetron HCl (Zofran) 4 mg PRN Q4HRS PRN 03/22/20 19:15 Pantoprazole Sodium (Protonix) 40 mg DAILYAC 03/23/20 07:30 03/25/20 08:10 40 MG Psyllium Hydrophilic Mucilloid (Metamucil Fiber Packet) 1 pkt QHS 03/24/20 21:00 Trazodone HCl (Desyrel) 50 mg PRN QHS PRN 03/24/20 11:45 03/24/20 22:22 50 MG Vitamin D (Vitamin D3) 2,000 unit DAILY 03/23/20 09:00 03/25/20 08:10 2,000 UNIT Warfarin Sodium (Coumadin) 2.5 mg DAILY16 03/22/20 18:00 03/22/20 19:09 DC Lab Laboratory Tests Test 03/25/20 11:05 Prothrombin Time 19.7 SEC (11.7-14.0) Prothromb Time International Ratio 1.7 (0.8-1.1) Sodium Level 140 mmol/L (136-145) Potassium Level 3.7 mmol/L (3.5-5.1) Chloride Level 100 mmol/L (98-107) Carbon Dioxide Level 34 mmol/L (21-32) Anion Gap 6 (6-14) Blood Urea Nitrogen 47 mg/dL (8-26) Creatinine 2.5 mg/dL (0.7-1.3) Estimated GFR (Cockcroft-Gault) 25.4 Glucose Level 113 mg/dL (70-99) Calcium Level 8.9 mg/dL (8.5-10.1) Results All relevant outside records, renal labs, imaging studies, telemetry/EKG's were reviewed. Justicifation of Admission Dx: Justifications for Admission: Justification of Admission Dx: N/A MIMI LUX MD Mar 25, 2020 12:12
[2020-03-25] MEDS ORDERED: LIDOCAINE WITH 8.4% SOD BICARB 3 ML DISP.SYRIN. INJ ONE (14:00)
[2020-03-25 16:44] LABS: BF CLARITY TURBID; BF COLOR RED; BF MON % 80 %; BF PMN % 15 %; BF RBC COUNT 102378 /cmm (Not Established); BF SOURCE PLEURAL; BF WBC COUNT 449 /cmm (Not Established)
[2020-03-25 16:45] LABS: BF OTHER % 5 %; PH,BODY FLUID 7.24
--- NOTE | 2020-03-25 17:23 | NUR ---
SW following for discharge planning. Spoke with RN and reviewed chart. Pt remains on 6S and did not transfer so this SW following. Discharge plan remains home, self-care with home 02. SW following.
--- NOTE | 2020-03-25 17:24 | CARD ---
MR#: [id number] Date of Study: 03/25/2020 Ordering Physician: NEDRA LOPEZ, Referring Physician: NEDRA LOPEZ, Tech: Jacquelyn Deleon [facility] APPROVED REPORT EXAM: Two-dimensional and M-mode echocardiogram with Doppler and color Doppler. Other Information Quality : Fair INDICATION Congestive Heart Failure Surgery/Intervention Status/Post Aortic Valve Replacement: Date: 01/2020 2D DIMENSIONS RVDd4.0 (2.9-3.5cm)Left Atrium(2D)4.4 (1.6-4.0cm) IVSd1.0 (0.7-1.1cm)Aortic Root(2D)2.8 (2.0-3.7cm) LVDd4.4 (3.9-5.9cm)LVOT Diameter2.2 (1.8-2.4cm) PWd1.0 (0.7-1.1cm)LVDs2.8 (2.5-4.0cm) FS (%) 35.4 %SV57.0 ml LVEF(%)60.0 (>50%) Aortic Valve AoV Peak Latrell.218.0cm/sAoV VTI45.7cm AO Peak GR.19.0mmHgLVOT Peak Latrell.181.3cm/s AO Mean GR.11mmHgAVA (VMAX)3.16cm2 PAO (VTI)3.00cm2 Tricuspid Valve TR P. [id number] [id number] TR Peak Gr.[id number] LEFT VENTRICLE The left ventricle is normal size. There is normal left ventricular wall thickness. The left ventricu lar systolic function is normal and the ejection fraction is within normal range. The Ejection Fracti on is 55-60%. Septal motion consistent with conduction abnormality. RIGHT VENTRICLE The right ventricle is mildly dilated. Systolic function is mildly reduced. ATRIA The left atrium is mildly dilated. The right atrium is mildly dilated. The interatrial septum is inta ct with no evidence for an atrial septal defect or patent foramen ovale as noted on 2-D or Doppler im aging. AORTIC VALVE Doppler and Color Flow revealed no significant aortic regurgitation. There is no significant aortic v alvular stenosis. The prosthetic aortic valve appears well seated. MITRAL VALVE The mitral valve is calcified but opens well. There is no evidence of mitral valve prolapse. There is no mitral valve stenosis. Doppler and Color-flow revealed trace to mild mitral regurgitation. TRICUSPID VALVE The tricuspid valve is normal in structure and function. Doppler and Color Flow revealed moderate tri cuspid regurgitation. The PA pressure was estimated at 65 mmHg. There is no tricuspid valve stenosis. PULMONIC VALVE The pulmonic valve is not well visualized. Doppler and Color Flow revealed mild pulmonic valvular reg urgitation. There is no pulmonic valvular stenosis. GREAT VESSELS The aortic root is normal in size. The ascending aorta is not well seen. The IVC was not visualized. PERICARDIAL EFFUSION There is no evidence of significant pericardial effusion. Critical Notification Critical Value: No <Conclusion> The left ventricle is normal size. The left ventricular systolic function is normal and the ejection fraction is within normal range. The Ejection Fraction is 55-60%. The prosthetic aortic valve appears well seated. Doppler and Color Flow revealed no significant aortic regurgitation. There is no significant aortic valvular stenosis. Doppler and Color-flow revealed trace to mild mitral regurgitation. Doppler and Color Flow revealed moderate tricuspid regurgitation. The PA pressure was estimated at 65 mmHg. Signed by : Cornell Balderas MD Electronically Approved : 03/25/2020 17:23:53
[2020-03-25] MEDS: PSYLLIUM HUSK (SUGAR FREE) 1 PKT PACKET PO SCH (21:00)
[2020-03-25] MEDS: ATORVASTATIN CALCIUM 40 MG TABLET. PO SCH (21:34)
[2020-03-26 03:00] VITALS: BP 125/67
[2020-03-26 05:12] LABS: CALCIUM 8.4 mg/dL (8.5-10.1); CREATININE 2.3 mg/dL (0.7-1.3); GFR 27.9; POTASSIUM 3.3 mmol/L (3.5-5.1)
[2020-03-26 07:00] VITALS: BP 116/70
--- NOTE | 2020-03-26 08:21 | RAD ---
Ultrasound-guided left-sided thoracentesis 03/26/2020 6:17 AM Indication: bilateral pleural effusions, thoracentesis Procedure: Informed consent was obtained. A timeout procedure was performed. Sonographic evaluation of the left chest was performed demonstrating moderate pleural effusion. The left posterior chest was prepped and draped in sterile fashion. 1% lidocaine without epinephrine was administered for local anesthesia. Real-time ultrasonographic guidance was used in passing a 5 Lao Joyrideeh catheter into the left pleural space. 0.8 L of serosanguineous pleural fluid was removed. Samples of fluid were sent to the lab for further evaluation per ordering physician request. The catheter was removed and pressure held to achieve hemostasis. A sterile dressing was applied. No immediate complications were identified. The patient tolerated the procedure well. Impression: Left sided ultrasound-guided thoracentesis
[2020-03-26 08:24] VITALS: BP 116/70
--- NOTE | 2020-03-26 08:59 | CONS ---
DATE OF CONSULTATION: 03/26/2020 PULMONARY CONSULTATION ATTENDING PHYSICIAN: Shaw Betancourt MD. REASON FOR CONSULTATION: Pleural effusion. HISTORY OF PRESENT ILLNESS: The patient is a 74-year-old male who has multiple comorbid conditions including history of atrial fibrillation, anemia, CAD, status post CABG in 2019, type 2 diabetes, dyslipidemia and hypertension. He had a history of pleural effusion, requiring multiple thoracenteses. The last ones from 03/2019, twice at [facility]. He also had a PleurX catheter at [facility] on the right side. He was brought into the hospital with a complaint of shortness of breath. He had no cough, no fever, no chills, no chest pains. His CT chest was reviewed. The patient had a partially loculated pleural effusion on the left side. He has a small to moderate pleural effusion on the right side. There is some mediastinal, paraesophageal and cardiophrenic angle adenopathy. I have been asked to see him for further evaluation. The patient required thoracentesis again yesterday and fluid was removed, less than a liter. He feels better. PAST MEDICAL HISTORY: Significant for coronary artery disease, status post CABG, history of hypertension, hyperlipidemia, history of atrial fibrillation, anemia, Crohn's disease, type 2 diabetes, dyslipidemia, hypertension, obstructive sleep apnea, pleural effusion, requiring thoracentesis multiple times bilaterally, history of aortic stenosis and CKD. PAST SURGICAL HISTORY: As above. ALLERGIES: All reviewed as listed in the MRAD, including LASIX. MEDICATIONS: Reviewed as listed in the MRAD. REVIEW OF SYSTEMS: Ten-point system was obtained. Pertinent positives discussed in my present illness, otherwise noncontributory. All systems that were negative were reviewed as well. SOCIAL HISTORY: Remote history of tobacco use. PHYSICAL EXAMINATION: VITAL SIGNS: Reviewed. Pulse ox is 97% on 3 liters. He is afebrile. NECK: Supple. LUNGS: With diminished breath sounds. CARDIOVASCULAR: With a regular rate. ABDOMEN: Soft. EXTREMITIES: With no pitting edema. LABORATORY DATA: Reviewed. PCR was negative for coronavirus. BUN 45, creatinine 2.3. INR 1.7. White cell count 4.2, hemoglobin 8.6 and platelets 128. IMPRESSION: 1. Acute on chronic hypoxic respiratory failure, secondary to recurrent pleural effusions. 2. Bilateral pleural effusions. The patient has required multiple thoracenteses for recurrent pleural effusion bilaterally, likely transudative. He had a right sided PleurX catheter with removal at [facility]. He had a previous cardiac catheterization and had multivessel coronary artery disease including left main disease and severe increase in left ventricular end-diastolic pressure of 35. He was subsequently referred to [facility] and had bypass done over there in January of last year. Etiology of recurrent effusion is likely transudative. He feels symptomatically better after thoracentesis. 3. Minimal tobacco history. 4. History of atrial fibrillation, on chronic anticoagulation. 5. Status post CABG. 6. Sleep Apnea, on home CPAP. RECOMMENDATIONS: 1. Monitor clinically for any reaccumulation of fluid. The left side fluid is partially loculated and would not benefit from thoracentesis unless it is infected. At present, no clinical signs of infection. 2. If fluid keeps reoccurring on the right side, he may need a PleurX catheter. Last time, it was done at [facility]. 3. Wean oxygen down. 4. Home CPAP at bedtime with oxygen 2.5 liters. We will follow along with you. ALEXANDER MI MD DR: TRUNG/meagan JOB#: [id number] / [id number] JENNY
[2020-03-26] MEDS ORDERED: TORSEMIDE 20 MG TABLET. PO SCH (09:00)
--- NOTE | 2020-03-26 09:53 | PDOC ---
DATE OF SERVICE DATE: 03/26/20 TIME: 09:52 SUBJECTIVE ROS Stable , s/p Thoracentesis on 03/25 OBJECTIVE Vital Signs Vital Signs Date Time Temp Pulse Resp B/P (MAP) Pulse Ox O2 Delivery O2 Flow Rate FiO2 03/26/20 07:00 95.9 63 18 116/70 (85) 100 Nasal Cannula 3.0 95.9 I & 0 Intake and Output 03/26/20 07:00 Intake Total 820 ml Output Total 3150 ml Balance -2330 ml Intake Oral 820 ml Output Urine Total 2400 ml Chest Tube Drainage Total 750 ml # Voids 1 # Bowel Movements 1 PHYSICAL EXAM Physical Exam General: No acute distress HEENT: Atraumatic, Mucous membr. moist/pink Neck Supple Lungs: bibasilar crackles, expiratory wheezes,non labored Heart: IRRR; AFIB), (2/6 systolic murmur to LLS border) Abdomen: Soft, No tenderness Extremities: No cyanosis, 2+ bilateral LE edema Skin: No Rash Neuro: Grossly normal Psych/Mental Status: Mental status NL, Mood NL Carlos + DIAGNOSIS/ASSESSMENT Assessment & Plan ANDREINA -Cardiorenal ,improving renal function Did not receive lasix gtt as allergic to Lasix, Good response to IV Bumex, switched to Torsemide Supportive care , Voiding trial prior to discharge . CKD stage 3B/4- Most recent Cr in 04.24 ,Established with Dr. Lopez Acute respiratory failure secondary to CHF- cardiology following Moderate layering right pleural effusion and moderate partially loculated left pleural effusion with bilateral basilar compressive atelectasis- s/p thoracentesis 03/25 - 0.8 lts drained Patchy groundglass infiltrate throughout both lungs. Mediastinal, paraesophageal and cardiophrenic angle lymphadenopathy. This is slightly increased compared to the prior study, favoring a reactive etiology rather than underlying neoplasm. There is a bilobed hypodense lesion or 2 adjacent lesions within the left cardiophrenic angle which is also likely due to lymphadenopathy given the absence of a cystic lesion in this location on the prior study. Acute on chronic diastolic CHF; Echo 2018 with LVEF 50% CAD s/p PCI/multiple stents and CABG in 2019. Follows with [place] cardiology, Dr. Jimenez Permanent AFIB: rate controlled. Not on BB due to bradycardia. On Eliquis Hypertension; controlled Diabetes, II Crohn's Disease; chronic immunosuppression with Humira s/p bioprosthetic AVR Hx of asymptomatic bradycardia Leukopenia Anemia- follows with Dr. Servin as OP PUI; COVID negative COMMENT/RELEVANT DATA Meds Current Medications Medications (Trade) Dose Ordered Sig/Jose Start Time Stop Time Status Last Admin Dose Admin Acetaminophen (Tylenol) 650 mg PRN Q4HRS PRN 03/22/20 19:15 Acetaminophen/ Hydrocodone Bitart (Lortab 7.5/325) 1 tab PRN Q6HRS PRN 03/22/20 17:00 03/25/20 21:35 1 TAB Albuterol Sulfate (Ventolin Neb Soln) 2.5 mg PRN Q4HRS PRN 03/22/20 17:00 Apixaban (Eliquis) 5 mg BID 03/22/20 21:00 03/24/20 11:19 DC 03/24/20 08:25 5 MG Aspirin (Aspirin Chewable) 81 mg DAILY 03/23/20 09:00 03/25/20 08:10 81 MG Atorvastatin Calcium (Lipitor) 40 mg HS 03/22/20 21:00 03/25/20 21:34 40 MG Bumetanide (Bumex) 2.5 mg BID92 03/22/20 17:00 03/25/20 11:35 DC 03/25/20 08:11 2.5 MG Ceftriaxone Sodium (Rocephin) 1 gm 1X ONCE 03/22/20 12:30 03/22/20 12:31 DC 03/22/20 12:32 1 GM Lidocaine HCl (Buffered Lidocaine 1%) 3 ml 1X ONCE 03/25/20 14:00 03/25/20 14:01 DC 03/25/20 14:00 5 ML Olanzapine (ZyPREXA ZYDIS) 5 mg PRN BID PRN 03/24/20 11:45 03/25/20 21:34 5 MG Ondansetron HCl (Zofran) 4 mg PRN Q4HRS PRN 03/22/20 19:15 Pantoprazole Sodium (Protonix) 40 mg DAILYAC 03/23/20 07:30 03/25/20 08:10 40 MG Psyllium Hydrophilic Mucilloid (Metamucil Fiber Packet) 1 pkt QHS 03/24/20 21:00 Torsemide (Demadex) 20 mg DAILY 03/26/20 09:00 Trazodone HCl (Desyrel) 50 mg PRN QHS PRN 03/24/20 11:45 03/24/20 22:22 50 MG Vitamin D (Vitamin D3) 2,000 unit DAILY 03/23/20 09:00 03/25/20 08:10 2,000 UNIT Warfarin Sodium (Coumadin) 2.5 mg DAILY16 03/22/20 18:00 03/22/20 19:09 DC Lab Laboratory Tests Test 03/25/20 11:05 03/25/20 13:39 03/26/20 04:30 Prothrombin Time 19.7 SEC (11.7-14.0) Prothromb Time International Ratio 1.7 (0.8-1.1) Sodium Level 140 mmol/L (136-145) 139 mmol/L (136-145) Potassium Level 3.7 mmol/L (3.5-5.1) 3.3 mmol/L (3.5-5.1) Chloride Level 100 mmol/L (98-107) 100 mmol/L (98-107) Carbon Dioxide Level 34 mmol/L (21-32) 32 mmol/L (21-32) Anion Gap 6 (6-14) 7 (6-14) Blood Urea Nitrogen 47 mg/dL (8-26) 45 mg/dL (8-26) Creatinine 2.5 mg/dL (0.7-1.3) 2.3 mg/dL (0.7-1.3) Estimated GFR (Cockcroft-Gault) 25.4 27.9 Glucose Level 113 mg/dL (70-99) 99 mg/dL (70-99) Calcium Level 8.9 mg/dL (8.5-10.1) 8.4 mg/dL (8.5-10.1) Albumin 3.2 g/dL (3.4-5.0) Body Fluid Source Pleural Body Fluid Color Red Body Fluid Clarity Turbid Body Fluid pH 7.24 Body Fluid Nucleated Cells 449 /cmm (Not Established) Body Fluid Mononuclear WBCs (%) 80 % Body Fluid Polymorphonuclear Cells 15 % Body Fluid Total RBCs Counted 993731 /cmm (Not Body Fluid Other Cells (%) 5 % Results All relevant outside records, renal labs, imaging studies, telemetry/EKG's were reviewed. Justicifation of Admission Dx: Justifications for Admission: Justification of Admission Dx: N/A MIMI LUX MD Mar 26, 2020 09:53
[2020-03-26] MEDS: CHOLECALCIFEROL (VITAMIN D3) 1,000 UNIT TABLET PO SCH (10:15)
[2020-03-26] MEDS: ASPIRIN CHEWABLE 81 MG TABLET. PO SCH (10:15)
[2020-03-26] MEDS: PANTOPRAZOLE 40 MG TABLET.DR. PO SCH (10:15)
[2020-03-26 11:00] VITALS: BP 118/64
--- NOTE | 2020-03-26 11:12 | PDOC ---
[employer] PROGRESS NOTE Date of Service DOS: DATE: 03/26/20 TIME: 11:12 Chief Complaint Chief Complaint A/P: Acute respiratory failure with hypoxia - likely CHF related, will diurese. Check COVID 19 Acute diastolic CHF - diurese. Consult cardiology and nephrology. Cannot tolerate BB due to bradycardia Abnormal CXR - will check procalcitonin, not clear if pneumonia is present Leukopenia - will monitor, check COVID 19 Anemia - likely of chronic disease, previously did require iron infusions ANDREINA on CKD - likely vasomotor nephropathy from cardiorenal syndrome. Will consult nephrology. He sees nephro at the [facility] CAD s/p CABG in 2019 - cont ASA, statin Permanent Afib - cannot tolerate BB due to symptomatic bradycardia, on eliquis HTN - monitor, prn hydralazine HLD - cont statin DM2 - sliding scale Aortic stenosis - s/p porcine AVR Valvular insufficiency: mild MR and mod to severe TR PAD - prior left ICA noted occluded Bilateral pleural effusions - left partially loculated. Consult IR and pulm FEN - cardiac diet, 1L fluid restriction PPX - Eliquis FULL CODE Dispo - inpatient [facility] History of Present Illness History of Present Illness Mr Lee is a 74yo M [employer] with PMHx A-Fib, Anemia, CAD s/p CABG 2019, Crohns disease, Diabetes-Type II, High Cholesterol, Heart Disease, H ypertension, recurrent right pleural effusions, aortic stenosis, CKD, ALESIA who presented to ER for evaluation of trouble breathing in the last week. Patient stated that he GAINED 10 lbs in a week. Patient has history of CHF, he was on torsemide 20 mg daily increased a few months ago to twice daily and then to 40 mg twice daily but has noticed decreased urine output recently. Patient denies any cough or fever, no chest pain, no abdominal pain, no nausea vomiting.. The symptoms are worse with any type of exertional activities. Patient said since his open heart surgery January 2019, he has have episodic cramping pain on left side of his chest. EKG was done 1031, heart rate of 66 bpm, A. fib, no STEMI. Chest radiograph with suspected partially consolidated lingular and left lower lobe infiltrate with small pleural effusion. Labs with WBC 3.6, Hb 9.1, platelets 133, INR 2.1, albumin 3.4, lactate 1.8, BNP 10,275, troponin 0, BUN 66, CR 3.6 Admitted for further care. 03/23: Carlos inserted for strict I/O. Has 1800cc UOP. Not feeling significantly improved. Afebrile. Still on O2. Labs stable 03/24: Afebrile. Covid negative. CT chest with layering right pleural effusion partially loculated left pleural effusion and groundglass infiltrate throughout lungs. 03/25: Afebrile. Still requiring O2. Swelling improved. Urine output red tinged due to Carlos trauma. He is anxious about discharge. Did not sleep last night. Status post 750 cc drained from right pleural space with improvement in his respiratory status. CT lumbar showed him requiring 3 L nasal cannula at rest and on exertion. He does note he has home O2 to bleed into his CPAP device but has not needed it during the day previously. Advised that he will go back on his torsemide twice daily and has outpatient follow-up with cardiology and at the [facility]. COVID 19 negative. Renal function stable. Consults: Cardiology. Pulmonology, Nephrology Plan: D/c home with home health Vitals/I&O Vitals/I&O: Vital Signs Date Time Temp Pulse Resp B/P (MAP) Pulse Ox O2 Delivery O2 Flow Rate FiO2 03/26/20 08:30 Nasal Cannula 3.0 03/26/20 07:00 95.9 63 18 116/70 (85) 100 95.9 I & O 03/25/20 03/25/20 03/26/20 15:00 23:00 07:00 Intake Total 320 ml 200 ml 300 ml Output Total 1600 ml 900 ml 650 ml Balance -1280 ml -700 ml -350 ml Physical Exam General: Alert, Oriented X3, Cooperative, moderate distress Lungs: Clear, Other Abdomen: Normal bowel sounds, Soft, No tenderness, No hepatosplenomegaly, No masses Extremities: Other (3+ edema) Skin: Other (Venous stasis dermatitis) Labs Labs: Laboratory Tests Test 03/25/20 13:39 03/26/20 04:30 Body Fluid Source Pleural Body Fluid Color Red Body Fluid Clarity Turbid Body Fluid pH 7.24 Body Fluid Nucleated Cells 449 /cmm (Not Established) Body Fluid Mononuclear WBCs (%) 80 % Body Fluid Polymorphonuclear Cells 15 % Body Fluid Total RBCs Counted 040488 /cmm (Not Body Fluid Other Cells (%) 5 % Sodium Level 139 mmol/L (136-145) Potassium Level 3.3 mmol/L (3.5-5.1) Chloride Level 100 mmol/L (98-107) Carbon Dioxide Level 32 mmol/L (21-32) Anion Gap 7 (6-14) Blood Urea Nitrogen 45 mg/dL (8-26) Creatinine 2.3 mg/dL (0.7-1.3) Estimated GFR (Cockcroft-Gault) 27.9 Glucose Level 99 mg/dL (70-99) Calcium Level 8.4 mg/dL (8.5-10.1) Assessment and Plan Assessmemt and Plan Problems Medical Problems: (1) Acute on chronic renal failure Status: Acute (2) CHF exacerbation Status: Acute (3) Person under investigation for COVID-19 Status: Acute (4) Pneumonia Status: Acute Comment Review of Relevant I have reviewed the following items bernadine (where applicable) has been applied. Medications: Current Medications Medications (Trade) Dose Ordered Sig/Jose Route PRN Reason Start Time Stop Time Status Last Admin Dose Admin Lidocaine HCl (Buffered Lidocaine 1%) 3 ml 1X ONCE INJ 03/25/20 14:00 03/25/20 14:01 DC 03/25/20 14:00 Torsemide (Demadex) 20 mg DAILY PO 03/26/20 09:00 03/26/20 10:15 Justifications for Admission Other Justification AZUCENA VENTURA MD Mar 26, 2020 11:12
[2020-03-26] MEDS ORDERED: POTASSIUM BICARB 20 MEQ EFFERVESCENT TABLET. PO ONE (11:15)
[2020-03-26] MEDS ORDERED: APIXABAN 5 MG TABLET. PO SCH (12:15)
--- NOTE | 2020-03-26 13:02 | SNU/HH DC ---
DISCHARGE WITH HOME HEALTH DISCHARGE INFORMATION: Discharge Date: Mar 26, 2020 Final Diagnosis: Problems Medical Problems: (1) Acute on chronic renal failure Status: Acute (2) CHF exacerbation Status: Acute (3) Person under investigation for COVID-19 Status: Acute (4) Pneumonia Status: Acute Condition on Discharge: Stable CODE STATUS: Code Status: Full HOME HEALTH: Face to Face: I certify this patient is under my care and that I, or a nurse practitioner or physician's addictions counselor assistant working with me, had a face to face encounter that meets the physician face to face encounter requirements with this patient on 03/26/20. Medical Complications: CHF Longterm For: Assess Cardiopulm Status, Assess & Educate Safety, Assess/Skilled Observatio, Medication Management RN For Eval/Treatment: Yes Physical Therapy For: Evalulation/Treatment Occupational Therapy For: Evaluation/Treatment Pt Meets Homebound Status: Unsteady balance w/ amb,, Limited distance walking POST DISCHARGE ORDERS: Activity Instructions for Disc: Activity as tolerated Weight Bearing Status after Di: As tolerated DIET AFTER DISCHARGE: Cardiac Wound/Incision Care: Keep wound/cast CDI CHECKS AFTER DISCHARGE: Checks after discharge: Check blood press - daily, Weigh Yourself Daily FOLLOW-UP: PCP to follow Home Health: [facility] TREATMENT/EQUIPMENT ORDERS: Discharge Respiratory Equipmen: Oxygen, CPAP CERTIFICATION STATEMENT: Certification Statement: Certification Statement: Based on the above finding, I certify that this patient is confined to the home and needs intermittent halfway care, physical therapy and/or speech therapy, or continues to need occupational therapy.~ This patient is under my care, and I have initiated the establishment of the plan of care.~ This patient will be followed by myself or a community physician who will periodically review the plan of care. Home Meds Active Scripts Albuterol Sulfate (Proair Hfa) 8.5 Gm Hfa.aer.ad, 2.5 MG NEB PRN Q4HRS PRN for SHORTNESS OF BREATH, #1 INHALER Prov:CALVIN PARKER MD 02/07/19 Reported Medications Apixaban (ELIQUIS) 5 Mg Tablet, 5 MG PO BID for blood thinner, s/p CABG, Hx AF, TAB 03/22/20 Gabapentin (GABAPENTIN) 300 Mg Capsule, 300 MG PO BID for NEUROGENIC PAIN, CAP 03/22/20 Torsemide (TORSEMIDE) 20 Mg Tablet, 1 TAB PO BID for diuretic, #90 TAB 1 Refill 03/28/19 Ferrous Sulfate (FERROUS SULFATE) 325 Mg Tablet, 324 MG PO BID for anemia, TAB 02/04/19 Aspirin (ASPIRIN) 81 Mg Tab.chew, 1 TAB PO DAILY for afib, #30 TAB 3 Refills 10/15/18 Cyanocobalamin (Vitamin B-12) (CYANOCOBALAMIN INJECTION) 1,000 Mcg/1 Ml Vial, 1000 MCG IJ QMONTH, EACH 07/11/17 Hydrocodone Bit/Acetaminophen (HYDROCODONE-APAP 7.5-325 ) 1 Each Tablet, 1 TAB PO PRN Q6HRS PRN for PAIN, TAB 0 Refills 07/11/17 Cholecalciferol (Vitamin D3) (VITAMIN D3) 1,000 Unit Tablet, 2000 UNIT PO DAILY for vitamin, TAB 01/15/17 Adalimumab (HUMIRA) 40 Mg/0.8 Ml Pen.ij.kit, 1 SYR SQ Q2WKS, #6 SYR 3 Refills 01/15/17 Omeprazole (OMEPRAZOLE) 40 Mg Capsule.dr, 1 CAP PO DAILY, #30 CAP 3 Refills 01/15/17 Atorvastatin Calcium (ATORVASTATIN CALCIUM) 40 Mg Tablet, 1 TAB PO HS, #30 TAB 5 Refills 01/15/17 Discontinued Reported Medications Warfarin Sodium (WARFARIN SODIUM) 2.5 Mg Tablet, 2.5 MG PO DAILY for blood thinner, TAB 03/28/19 Lisinopril (LISINOPRIL) 20 Mg Tablet, 1 TAB PO DAILY for blood pressure, #30 TAB 5 Refills 03/28/19 Colestipol Hcl (COLESTIPOL HCL) 1 Gm Tablet, 5 GM PO DAILY for cholesterol, TAB 02/04/19 Sodium Bicarbonate (SODIUM BICARBONATE) 650 Mg Tablet, 10 GR PO BID for COPD, TAB 02/04/19 Clopidogrel Bisulfate (CLOPIDOGREL) 75 Mg Tablet, 1 TAB PO DAILY, #90 TAB 1 Refill 12/26/17 Gabapentin (GABAPENTIN ) 400 Mg Capsule, 1200 MG PO BID, CAP 07/11/17 AZUCENA VENTURA MD Mar 26, 2020 13:02
[2020-03-26 15:00] VITALS: BP 120/70
--- NOTE | 2020-03-26 15:02 | PDOC3 ---
Discharge Summary Visit Information Date of Admission: Mar 22, 2020 Date of Discharge: Mar 26, 2020 Admitting Diagnosis: Acute CHF exacerbation Final Diagnosis Problems Medical Problems: (1) Acute on chronic renal failure Status: Acute (2) CHF exacerbation Status: Acute (3) Person under investigation for COVID-19 Status: Acute (4) Pneumonia Status: Acute Brief Hospital Course Allergies Allergies Coded Allergies Type Severity Reaction Last Updated Verified furosemide Allergy Severe Swelling 04/07/19 Yes amlodipine Allergy Intermediate Swelling 04/07/19 Yes azathioprine Allergy Intermediate n/v 04/07/19 Yes infliximab Allergy Intermediate rash 04/07/19 Yes Vital Signs Vital Signs Date Time Temp Pulse Resp B/P (MAP) Pulse Ox O2 Delivery O2 Flow Rate FiO2 03/26/20 11:00 96.3 62 18 118/64 (82) 99 Nasal Cannula 3.0 96.3 Lab Results Laboratory Tests Test 03/25/20 11:05 03/25/20 13:39 03/26/20 04:30 Prothrombin Time 19.7 SEC (11.7-14.0) Prothromb Time International Ratio 1.7 (0.8-1.1) Sodium Level 140 mmol/L (136-145) 139 mmol/L (136-145) Potassium Level 3.7 mmol/L (3.5-5.1) 3.3 mmol/L (3.5-5.1) Chloride Level 100 mmol/L (98-107) 100 mmol/L (98-107) Carbon Dioxide Level 34 mmol/L (21-32) 32 mmol/L (21-32) Anion Gap 6 (6-14) 7 (6-14) Blood Urea Nitrogen 47 mg/dL (8-26) 45 mg/dL (8-26) Creatinine 2.5 mg/dL (0.7-1.3) 2.3 mg/dL (0.7-1.3) Estimated GFR (Cockcroft-Gault) 25.4 27.9 Glucose Level 113 mg/dL (70-99) 99 mg/dL (70-99) Calcium Level 8.9 mg/dL (8.5-10.1) 8.4 mg/dL (8.5-10.1) Albumin 3.2 g/dL (3.4-5.0) Body Fluid Source Pleural Body Fluid Color Red Body Fluid Clarity Turbid Body Fluid pH 7.24 Body Fluid Nucleated Cells 449 /cmm (Not Established) Body Fluid Mononuclear WBCs (%) 80 % Body Fluid Polymorphonuclear Cells 15 % Body Fluid Total RBCs Counted 987370 /cmm (Not Body Fluid Other Cells (%) 5 % Magnesium Level 1.9 mg/dL (1.8-2.4) Laboratory Tests Test 03/26/20 04:30 Sodium Level 139 mmol/L (136-145) Potassium Level 3.3 mmol/L (3.5-5.1) Chloride Level 100 mmol/L (98-107) Carbon Dioxide Level 32 mmol/L (21-32) Anion Gap 7 (6-14) Blood Urea Nitrogen 45 mg/dL (8-26) Creatinine 2.3 mg/dL (0.7-1.3) Estimated GFR (Cockcroft-Gault) 27.9 Glucose Level 99 mg/dL (70-99) Calcium Level 8.4 mg/dL (8.5-10.1) Magnesium Level 1.9 mg/dL (1.8-2.4) Brief Hospital Course Mr Lee is a 74yo M [employer] with PMHx A-Fib, Anemia, CAD s/p CABG 2018, Crohns disease, Diabetes-Type II, High Cholesterol, Heart Disease, Hypertension, recurrent right pleural effusions, aortic stenosis, CKD, ALESIA who presented to ER for evaluation of trouble breathing in the last week. Patient stated that he GAINED 10 lbs in a week. Patient has history of CHF, he was on torsemide 20 mg daily increased a few months ago to twice daily and then to 40 mg twice daily but has noticed decreased urine output recently. Patient denies any cough or fever, no chest pain, no abdominal pain, no nausea vomiting.. The symptoms are worse with any type of exertional activities. Patient said since his open heart surgery January 2019, he has have episodic cramping pain on left side of his chest. EKG was done 1031, heart rate of 66 bpm, A. fib, no STEMI. Chest radiograph with suspected partially consolidated lingular and left lower lobe infiltrate with small pleural effusion. Labs with WBC 3.6, Hb 9.1, platelets 133, INR 2.1, albumin 3.4, lactate 1.8, BNP 10,275, troponin 0, BUN 66, CR 3.6 Admitted for further care. 03/23: Carlos inserted for strict I/O. Has 1800cc UOP. Not feeling significantly improved. Afebrile. Still on O2. Labs stable 03/24: Afebrile. Covid negative. CT chest with layering right pleural effusion partially loculated left pleural effusion and groundglass infiltrate throughout lungs. 03/25: Afebrile. Still requiring O2. Swelling improved. Urine output red tinged due to Carlos trauma. He is anxious about discharge. Did not sleep last night. Status post 750 cc drained from right pleural space with improvement in his respiratory status. CT lumbar showed him requiring 3 L nasal cannula at rest and on exertion. He does note he has home O2 to bleed into his CPAP device but has not needed it during the day previously. Advised that he will go back on his torsemide twice daily and has outpatient follow-up with cardiology and at the [facility]. COVID 19 negative. Renal function stable. He did have echocardiogram: The left ventricle is normal size. The left ventricular systolic function is normal and the ejection fraction is within normal range. The Ejection Fraction is 55-60%. The prosthetic aortic valve appears well seated. Doppler and Color Flow revealed no significant aortic regurgitation. There is no significant aortic valvular stenosis. Doppler and Color-flow revealed trace to mild mitral regurgitation. Doppler and Color Flow revealed moderate tricuspid regurgitation. The PA pressure was estimated at 65 mmHg. Consults: Cardiology. Pulmonology, Nephrology Problem list Acute respiratory failure with hypoxia - likely CHF related, will diurese. Negative covid Acute diastolic CHF - diurese. Consult cardiology and nephrology. Cannot tolerat e BB due to bradycardia Abnormal CXR - will check procalcitonin, not clear if pneumonia is present Leukopenia - will monitor, check COVID 19 Anemia - likely of chronic disease, previously did require iron infusions ANDREINA on CKD - likely vasomotor nephropathy from cardiorenal syndrome. Will consult nephrology. He sees nephro at the [facility] CAD s/p CABG in 2019 - cont ASA, statin Permanent Afib - cannot tolerate BB due to symptomatic bradycardia, on eliquis HTN - monitor, prn hydralazine HLD - cont statin DM2 - sliding scale Aortic stenosis - s/p porcine AVR Valvular insufficiency: mild MR and mod to severe TR PAD - prior left ICA noted occluded Bilateral pleural effusions - left partially loculated. Consult IR and pulm Pulm HTN - likely CHF related Cor pulmonale - requiring O2 due to Pulm HTN 2/2 CHF Plan: D/c home with home health Discharge Information Condition at Discharge: Improved Follow Up: Weeks (1) Disposition/Orders: D/C to Home w/ HH Scheduled Adalimumab (Humira) 40 Mg/0.8 Ml Pen.ij.kit, 1 SYR SQ Q2WKS, #6 Ref 3 (Reported) Entered as Reported by: WILL OLIVEIRA on 01/15/172121 Last Action: Reviewed on 03/22/202006 by FOREST MACHUCA Apixaban (Eliquis) 5 Mg Tablet, 5 MG PO BID for blood thinner, s/p CABG, Hx AF, (Reported) Entered as Reported by: FOREST MACHUCA on 03/22/202006 Last Action: New Order on 03/22/202006 by FOREST MACHUCA Aspirin (Aspirin) 81 Mg Tab.chew, 1 TAB PO DAILY for afib, #30 Ref 3 (Reported) Entered as Reported by: NEDRA KIM on 10/15/18 1609 Last Action: Reviewed on 03/22/202006 by FOREST MACHUCA Atorvastatin Calcium (Atorvastatin Calcium) 40 Mg Tablet, 1 TAB PO HS, #30 Ref 5 (Reported) Entered as Reported by: WILL OLIVEIRA on 01/15/172118 Last Action: Reviewed on 03/22/202006 by FOREST MACHUCA Cholecalciferol (Vitamin D3) (Vitamin D3) 1,000 Unit Tablet, 2,000 UNIT PO DAILY for vitamin, (Reported) Entered as Reported by: WILL OLIVEIRA on 01/15/172123 Last Action: Edited on 03/22/202006 by FOREST MACHUCA Cyanocobalamin (Vitamin B-12) (Cyanocobalamin Injection) 1,000 Mcg/1 Ml Vial, 1,000 MCG IJ QMONTH, (Reported) Entered as Reported by: TAYLOR HAMMER on 07/11/17 0032 Last Action: Reviewed on 03/22/202006 by FOREST MACHUCA Ferrous Sulfate (Ferrous Sulfate) 325 Mg Tablet, 324 MG PO BID for anemia, (Reported) Entered as Reported by: PAOLA KELLY RN on 02/04/19 1712 Last Action: Reviewed on 03/22/202006 by FOREST MACHUCA Gabapentin (Gabapentin) 300 Mg Capsule, 300 MG PO BID for NEUROGENIC PAIN, (Reported) Entered as Reported by: FOREST MACHUCA on 03/22/202006 Last Action: New Order on 03/22/202006 by FOREST MACHUCA Omeprazole (Omeprazole) 40 Mg Capsule.dr, 1 CAP PO DAILY, #30 Ref 3 (Reported) Entered as Reported by: WILL OLIVEIRA on 01/15/172121 Last Action: Reviewed on 03/22/202006 by FOREST MACHUCA Torsemide (Torsemide) 20 Mg Tablet, 1 TAB PO BID for diuretic, #90 Ref 1 (Reported) Entered as Reported by: Amara Connor on 03/28/19 1037 Last Action: Reviewed on 03/22/202006 by FOREST MACHUCA Scheduled PRN Albuterol Sulfate (Proair Hfa) 8.5 Gm Hfa.aer.ad, 2.5 MG NEB PRN Q4HRS PRN for SHORTNESS OF BREATH, #1 Prescribed by: CALVIN PARKER on 02/07/19 0855 Last Action: Continued on 03/22/201718 by AZUCENA VENTURA MD Hydrocodone Bit/Acetaminophen (Hydrocodone-Apap 7.5-325 ) 1 Each Tablet, 1 TAB PO PRN Q6HRS PRN for PAIN, Ref 0 (Reported) Entered as Reported by: TAYLOR HAMMER on 07/11/17 0032 Last Action: Reviewed on 03/22/202006 by FOREST MACHUCA Discontinued Medications Clopidogrel Bisulfate (Clopidogrel) 75 Mg Tablet, 1 TAB PO DAILY, #90 Ref 1 (Reported) Entered as Reported by: NEDRA KIM on 12/26/17 1029 Last Action: Discontinued on 03/22/202006 by FOREST MACHUCA Colestipol Hcl (Colestipol Hcl) 1 Gm Tablet, 5 GM PO DAILY for cholesterol, (Reported) Entered as Reported by: PAOLA KELLY RN on 02/04/19 1712 Last Action: Discontinued on 03/22/202006 by FOREST MACHUCA Gabapentin (Gabapentin ) 400 Mg Capsule, 1,200 MG PO BID, (Reported) Entered as Reported by: TAYLOR HAMMER on 07/11/17 0032 Last Action: Discontinued on 03/22/202006 by FOREST MACHUCA Lisinopril (Lisinopril) 20 Mg Tablet, 1 TAB PO DAILY for blood pressure, #30 Ref 5 (Reported) Entered as Reported by: Amara Connor on 03/28/19 1034 Last Action: Discontinued on 03/22/202006 by FOREST MACHUCA Sodium Bicarbonate (Sodium Bicarbonate) 650 Mg Tablet, 10 GR PO BID for COPD, (Reported) Entered as Reported by: PAOLA KELLY RN on 02/04/19 1712 Last Action: Discontinued on 03/22/202006 by FOREST MACHUCA Warfarin Sodium (Warfarin Sodium) 2.5 Mg Tablet, 2.5 MG PO DAILY for blood thinner, (Reported) Entered as Reported by: Amara Connor on 03/28/19 1034 Last Action: Discontinued on 03/22/202006 by FOREST MACHUCA Justicifation of Admission Dx: Justifications for Admission: Justification of Admission Dx: N/A AZUCENA VENTURA MD Mar 26, 2020 15:02
--- NOTE | 2020-03-26 15:10 | PDOC ---
ADRIANNA RICE CONTROL OPERATOR 03/26/20 1510: CARDIO Progress Notes Date and Time Date of Service 03/26/2020 Time of Evaluation 1220 Subjective Subjective: No Chest Pain, No shortness of breath, No Palpitations Vitals Vitals Vital Signs Date Time Temp Pulse Resp B/P (MAP) Pulse Ox O2 Delivery O2 Flow Rate FiO2 03/26/20 11:00 96.3 62 18 118/64 (82) 99 Nasal Cannula 3.0 96.3 Weight Weight [ ] Input and Output Intake and Output Intake and Output 03/26/20 07:00 Intake Total 820 ml Output Total 3150 ml Balance -2330 ml Intake Oral 820 ml Output Urine Total 2400 ml Chest Tube Drainage Total 750 ml # Voids 1 # Bowel Movements 1 Laboratory Labs Laboratory Tests Test 03/26/20 04:30 Sodium Level 139 mmol/L (136-145) Potassium Level 3.3 mmol/L (3.5-5.1) Chloride Level 100 mmol/L (98-107) Carbon Dioxide Level 32 mmol/L (21-32) Anion Gap 7 (6-14) Blood Urea Nitrogen 45 mg/dL (8-26) Creatinine 2.3 mg/dL (0.7-1.3) Estimated GFR (Cockcroft-Gault) 27.9 Glucose Level 99 mg/dL (70-99) Calcium Level 8.4 mg/dL (8.5-10.1) Magnesium Level 1.9 mg/dL (1.8-2.4) Microbiology Micro Microbiology 03/25/20 Gram Stain - Final, Resulted 03/25/20 Aerobic and Anaerobic Culture - Preliminary, Resulted 03/22/20 Blood Culture - Preliminary, Resulted NO GROWTH AFTER 4 DAYS Physical Exam HEENT: Neck Supple W Full Motion Chest: Symmetric LUNGS: Other (bibasilar crackles ) Heart: irregularly irregular (AFIB, rate controlled ) Abdomen: Soft N/T Extremities: Other (1-2+ bilateral LE edema ) Neurology: alert, oriented, follow commands Assessment Assessment 1. Acute respiratory failure secondary to CHF, bilateral pleural effusion. post Thoracentesis 2. Acute on chronic diastolic CHF; EF nml and AVR well seated. better compensated 3. ANDREINA on CKD; Cr down to 2.3 4. CAD s/p PCI/multiple stents and CABG in 2019. Follows with [facility] cardiology, Dr. Jimenez 5. Permanent AFIB: rate controlled. Not on BB due to bradycardia. On Eliquis 6. Hypertension; controlled 7. Hyperlipidemia; statin 8. Diabetes, II 9. Crohn's Disease; chronic immunosuppression with Humira 10. s/p bioprosthetic AVR 11. Hx of asymptomatic bradycardia 12. Leukopenia 13. Anemia 14. PUI; COVID PCR negative Recommendations 1. Continue torsemide 2. Secondary prevention measures 3. Resume Eliquis for post thoracentesis 4. No ACEI/ARB for now 5. Avoid AV peter blocking agents. due to hx of bradycardia 6. If not on home O2 consider 6 min walk. 7. May DC today follow up with [facility] cardiology as he is already scheduled this apr. Justicifation of Admission Dx: Justifications for Admission: Justification of Admission Dx: N/A JUNE RODRIGUES MD 03/26/20 1557: CARDIO Progress Notes Assessment Assessment Patient seen and examined. Agree with WHEEL AND PINION INSPECTOR's assessment and plan. Acute on chronic diastolic heart failure better compensated CAD s/p CABG, bioprosthetic AVR clinically stable Perm AF rate controlled -continue Eliquis for stroke prophylaxis. 2D echo showed normal LV systolic function and normally functioning bio prosthetic AVR. Okay for DC from cardiac standpoint ADRIANNA RICE APRN Mar 26, 2020 15:10 JUNE RODRIGUES MD Mar 26, 2020 15:57
--- NOTE | 2020-03-26 15:35 | NUR ---
Discharge instructions given to pt regarding follow up appointments. Education given over edema, SOA, oxygen, and wound care. Supplies given to pt. Pt verbalizes understanding.
--- NOTE | 2020-03-26 17:11 | NUR ---
SW following for discharge planning. SW spoke with RN and reviewed chart. Pt to discharge home today, 03/26 self-care. Spoke with who will provide transportation home. Pt's confirmed pt has home 02. No further SW needs at this time.
--- NOTE | 2020-03-30 15:07 | PATHOLOGY ---
Note [facility] Accession Number: [id number] TESTS RESULT FLAG UNITS REF RANGE LAB Clinician Provided Cytology Information No. of containers..01 Other (Miscellaneous) Source: RT PLEURAL FLUID DIAGNOSIS: RT PLEURAL FLUID NEGATIVE FOR MALIGNANT CELLS. REACTIVE MESOTHELIAL CELLS ARE PRESENT. RED BLOOD CELLS ARE PRESENT. THIS INTERPRETATION INCLUDES EVALUATION OF A CELL BLOCK. Signed out by: 02 Gino Gonzalez MD, Pathologist NPI- [id number] Performed by: Zoe Silva, Bilingual Speech Language Pathologist ([facility]) Gross description: 35ML, RED, 1 TP 1 CB /LCS 03/26/2020 1356 Local FLAG LEGEND: L-Low Normal,H-High Normal,LL-Alert Low,HH-Alert High <-Panic Low,>-Panic High,A-Abnormal,AA-Critical Abnormal Performed at: [facility] [place] [address] MD, 02 [facility] [facility] [address] [place] [address] Gino Gonzalez MD, Performed at: [address], [place], [place] [id number] [address] MD Phone: [phone]
== END 2020-03-26 16:00 | disposition home health service (06) | DRG 291 ==
LOC: ER 10:18 → ED HOLD 12:22 → 6 SOUTH 20:38
PROVIDERS: ADMIT Internal Medicine; ATTEND Internal Medicine
PROC: 0W9B3ZZ Drainage of Left Pleural Cavity, Percutaneous Approach (ICD-10-PCS; principal; 2020-03-26)
DX: I13.0 Hypertensive heart and chronic kidney disease with heart failure and stage 1 through stage 4 chronic kidney disease, or unspecified chronic kidney disease (principal); N17.0 Acute kidney failure with tubular necrosis; I50.33 Acute on chronic diastolic (congestive) heart failure; J18.9 Pneumonia, unspecified organism; J96.21 Acute and chronic respiratory failure with hypoxia; D84.821 Immunodeficiency due to drugs; K50.90 Crohn's disease, unspecified, without complications; I48.21 Permanent atrial fibrillation; I48.0 Paroxysmal atrial fibrillation; N18.9 Chronic kidney disease, unspecified; D64.9 Anemia, unspecified; E11.22 Type 2 diabetes mellitus with diabetic chronic kidney disease; E78.00 Pure hypercholesterolemia, unspecified; E78.5 Hyperlipidemia, unspecified; G47.33 Obstructive sleep apnea (adult) (pediatric); I07.1 Rheumatic tricuspid insufficiency; I25.10 Atherosclerotic heart disease of native coronary artery without angina pectoris; I27.29 Other secondary pulmonary hypertension; I27.81 Cor pulmonale (chronic); I35.0 Nonrheumatic aortic (valve) stenosis; Z79.01 Long term (current) use of anticoagulants; Z79.899 Other long term (current) drug therapy; Z82.49 Family history of ischemic heart disease and other diseases of the circulatory system; Z86.73 Personal history of transient ischemic attack (TIA), and cerebral infarction without residual deficits; Z87.891 Personal history of nicotine dependence; Z95.1 Presence of aortocoronary bypass graft; Z95.3 Presence of xenogenic heart valve; Z95.5 Presence of coronary angioplasty implant and graft; M19.90 Unspecified osteoarthritis, unspecified site; Z88.8 Allergy status to other drugs, medicaments and biological substances; Z90.49 Acquired absence of other specified parts of digestive tract; Z20.822 Contact with and (suspected) exposure to COVID-19
CPT/HCPCS: 32555; 36415; 51702; 71045; 71250; 80048; 80053; 82040; 82945; 83605; 83615; 83735; 83880; 83986; 84145; 84157; 84484; 85007; 85025; 85610; 87040; 87071; 87075; 89050; 93005; 93306; 94618; 96374; 96375; 99285; A4314; C1892; J0696; J3490; U0003; G0378

== ENCOUNTER 2020-10-03 07:12 | Inpatient (IN) | payer MEDICARE, OTHER ==
[2020-10-03] VITALS (13 sets, daily range): BP systolic 71–99; BP diastolic 42–58
[~2020-10-03] VITALS: Ht 177.8 cm; Wt 100.6 kg
[~2020-10-03 07:12] MED LIST changes: +GABA300C18 PO; -ISOS20TA2 PO; +ISOS20TA6 PO; -LISI-334 PO; +LISI20TA18 PO; -OMEP40CA45 PO; +OMEP40CA7 PO
[2020-10-03] MEDS ORDERED: IV NORMAL SALINE 1000ML BAG 1,000 ML IV ONE (07:30)
[2020-10-03] MEDS ORDERED: PIPERACILLIN/TAZOBACTAM 4.5 GM in IV NORMAL SALINE 100ML 100 ML IV ONE (07:45)
--- NOTE | 2020-10-03 07:48 | PHYS DOC ---
Past Medical History Past Medical History: A-Fib, Anemia, CAD, CVA, Diabetes-Type II, High Cho lesterol, Heart Disease, Hypertension, Pneumonia, Other Additional Past Medical Histor: Crohns,sleep apnea,PLEURAL EFFUSIONS,aortic stenosis,CKD Past Surgical History: Angioplasty, Appendectomy, Cholecystectomy, Coronary Bypass Surgery, Other Additional Past Surgical Histo: bowel resection,LAMINECTOMY,thoracentesis, AVR, cardiac stents Smoking Status: Former Smoker Alcohol Use: Rarely Drug Use: None General Adult EDM: Chief Complaint: WEAKNESS/GENERALIZED HPI: HPI: Patient is a 74 year old male who presents to the ER via EMS with generalized weakness. The patient has a history of Afib, CHF, CKD, and currently receives dialysis- //Sun. Reports last went to dialysis yesterday. The patient reports that he started feeling fatigued and weak during dialysis yesterday. He also reports that his BP was in the 80/40 range yesterday. This morning the patient felt too weak to walk which is what brought him to the ER. He reports right lower extremity erythema, bilateral lower extremity edema, abdominal edema, and diarrhea. The patient denies chest pain or SOB. Denies known exposure to COVID-19. Denies known sick contacts. Review of Systems: Review of Systems: Constitutional: Reports fatigue; Denies fever or chills Eyes: Denies redness or eye pain HENT: Denies nasal congestion or sore throat Respiratory: Denies cough or shortness of breath Cardiovascular: Reports peripheral edema; Denies chest pain or palpitations GI: Denies abdominal pain, nausea, or vomiting : Denies dysuria or hematuria Musculoskeletal: Denies back pain; reports bilateral LE edema Integument: Reports RLE redness and pain Neurologic: Denies headache, focal weakness or sensory changes Complete systems were reviewed and found to be within normal limits, except as documented in this note. Heart Score: C/O Chest Pain: No HEART Score for Chest Pain: HEART Score for Chest Pain Response (Comments) Value History Slighlty/Non-Suspicious [address] Depression 2 Age > 65 2 Risk Factors >3 Risk Factors or Hx CAD 2 Troponin >3 x Normal Limit 2 Total 8 Risk Factors: Risk Factors: DM, Current or recent (<one month) smoker, HTN, HLP, family history of CAD, obesity. Risk Scores: Score 0 - 3: 2.5% MACE over next 6 weeks - Discharge Home Score 4 - 6: 20.3% MACE over next 6 weeks - Admit for Clinical Observation Score 7 - 10: 72.7% MACE over next 6 weeks - Early Invasive Strategies Current Medications: Current Medications Medications (Trade) Dose Ordered Sig/Jose Start Time Stop Time Status Last Admin Dose Admin Piperacillin Sod/ Tazobactam Sod 4.5 gm/Sodium Chloride 100 ml @ 200 mls/hr 1X ONCE 10/03/20 07:45 10/03/20 08:14 Sodium Chloride 1,000 ml @ 1,000 mls/hr 1X ONCE 10/03/20 07:30 10/03/20 08:29 Allergies: Allergies: Allergies Coded Allergies Type Severity Reaction Last Updated Verified furosemide Allergy Severe Swelling 04/07/19 Yes amlodipine Allergy Intermediate Swelling 04/07/19 Yes azathioprine Allergy Intermediate n/v 04/07/19 Yes infliximab Allergy Intermediate rash 04/07/19 Yes Physical Exam: PE: Constitutional: Elderly, fatigued, and alert HENT: Normocephalic, atraumatic Eyes: PERRL, EOMI, conjunctiva normal, no discharge Neck: Normal range of motion, no tenderness, supple Lungs & Thorax: Diffuse wheezes ascultated, no respiratory distress, equal chest rise and fall Abdomen: Distended and edematous, no tenderness Skin: Cool, right lower extremity erythema Back: No tenderness, no CVA tenderness Extremities: Significant peripheral edema in both LE, No tenderness, ROM intact Neurologic: Alert and oriented X 3, normal motor function, normal sensory function, no focal deficits noted Psychologic: Affect normal, judgment normal EKG: EK10/03/20 @ 0720 atrial fibrillation, 66 bpm, QRS 98 ms, QT/QTc 402/423 ms, some T wave inversion, possible ST segment depression in leads V2-V5. Radiology/Procedures: Radiology/Procedures: PROCEDURE: CT HEAD AND CERVICAL SPINE WO and CXR AP ADDENDUM ADDENDUM #1 Addendum: Single view of the chest findings: Poor historian effort. Mild cardiomegaly. Central vascular congestion. Previous median sternotomy. There is a left right-sided dialysis-type catheter. No focal infiltrates, effusion or pneumothorax is seen. Bones are normal. Electronically signed by: Luisa Frausto MD (10/03/2020 9:40 AM) [id number] ORIGINAL REPORT Exam performed: CT scan of the head and cervical spine without contrast. Date of Service:10/03/2020 Comparison:None available . Clinical History: Fall, neck pain Technique: Helical acquisitions are obtained from the foramen magnum to the vertex and through the cervical spine without IV contrast. Sagittal and coronal reformatted images are obtained and reviewed. CT head findings: Prominence of cortical sulci and ventricular system is noted consistent with age-related atrophy Normal velazquez-white differentiation is maintained. There is no extra axial fluid collection, intraparenchymal hemorrhage or mass lesion. The visualized portions of the orbits, paranasal sinuses and the mastoid air cells appear clear. The calvarium is intact. Impression: 1. No acute intracranial process detected. End impression CT cervical spine findings: There is scoliosis of the cervical spine. Normal sagittal alignment is preserved. Craniocervical and C1-2 articular relation appears preserved. The vertebral body heights are maintained. There is narrowing of several intravertebral disc spaces with osteophytic spurring. There is no marco or retrolisthesis. There is no perching of facets No prevertebral soft tissue swelling is identified. There are no fractures. No definite lymphadenopathy or masses are seen within the neck. The visualized thyroid and salivary glands appears preserved. Impression: Spondylotic changes and multilevel disc degenerative changes involving the cervical spine. No acute abnormality seen . PQRS Compliance Statement: One or more of the following individualized dose reduction techniques were utilized for this examination: 1. Automated exposure control 2. Adjustment of the mA and/or kV according to patient size 3. Use of iterative reconstruction technique Electronically signed by: Luisa Frausto MD (10/03/2020 8:39 AM) [id number] PROCEDURE: VENOUS LOWER EXTREMITY RIGHT STUDY: US DPLX VENOUS EXTREMITY LOWER RT INDICATION: Right lower extremity swelling and erythema. DVT. TECHNIQUE: Color-flow and pulsed wave duplex ultrasound with compression of venous structures of the right lower extremity. COMPARISON: None recently. FINDINGS: Duplex ultrasound with compression of the deep venous structures of the right lower extremity from the common femoral vein through the popliteal vein is negative for DVT. The posterior tibial and peroneal veins are segmentally visualized and patent where seen. Normal venous waveforms and augmentation are noted throughout. Diffusely edematous and thickened subcutaneous tissues. Hypoechoic, avascular fluid collection at the popliteal fossa measuring 4.9 x 1.3 x 3.3 cm. IMPRESSION: 1. No deep venous thrombosis throughout the right lower extremity. 2. Diffusely edematous and thickened subcutaneous tissues. Differentiation between bland edema and cellulitis would be better made clinically. 3. Avascular fluid collection within the popliteal fossa most typical of a Mccauley's cyst. Electronically signed by: ADELFO MCRAE MD (10/03/2020 9:36 AM) [id number] Course & Med Decision Making: Course & Med Decision Making Pertinent Labs and Imaging studies reviewed. (See chart for details) Patient is a 74 year old male who presented complaining of generalized weakness. The patient has a history of CHF, Afib, ESRD, and CAD. He is currently receiving dialysis. EKG was obtained and showed atrial fibrillation, 66 bpm, QRS 98 ms, QT/QTc 402/423 ms, some T wave inversion, possible ST segment depression in leads V2-V5. Troponin was significantly elevated at 3.634. Patient denies chest pain. A consult was made with Dr. Carlson (cardiology) who recommend holding Eliquis and starting a heparin bolus/drip at this time. Planning diagnostic cath during admission stay. In agreement with consultation recommendations. Aspirin was administered. Head/Cervical spine CT scan showed no acute intracranial abnormalities, spondylotic changes and multilevel disc degenerative changes involving the cervical spine, and no acute abnormality seen. Other labs posted to chart. Venous doppler negative for acute DVT to RLE. Concern for cellulitis. Emipric antibiotic initiated. Hypotension noted but stable. Concern for giving IVF hydration as patient appears to be third spacing. Patient requiring admission for further evaluation and treatment. Discussed with Dr. Christy (hospitalist) who is in agreement with admission. Discussed findings and plan with patient and family, who acknowledge understanding and agreement. Roro Disclaimer: Roro Disclaimer: This electronic medical record was generated, in whole or in part, using a voice recognition dictation system. Departure Departure Impression: Primary Impression: NSTEMI (non-ST elevated myocardial infarction) Additional Impressions: Cellulitis of right lower extremity End-stage renal disease on hemodialysis Hypotension Qualified Codes: I95.9 - Hypotension, unspecified Disposition: 09 ADMITTED INPATIENT ( ) Admitting Physician: MILO ([place]) Condition: GUARDED Referrals: JINNY ARTIS MD (PCP) Critical Care Time Critical care time was 30minutes which includes time at bedside, spent in discussion of patient's care with specialists and/or family members, with in terpretation of laboratory and/or radiological studies and is exclusive of procedures. JHONATAN BRAVO DO Oct 03, 2020 07:48
[2020-10-03 07:49] LABS: BASO % 0 % (0-3); EOS % 0 % (0-3); HEMATOCRIT 28.6 % (39.0-53.0); HEMOGLOBIN 9.1 g/dL (13.0-17.5); LYMPH # 0.3 x10^3/uL (1.0-4.8); LYMPH % 2 % (24-48); MEAN CORPUSCULAR HEMOGLOBIN 31 pg (25-35); MEAN CORPUSCULAR HGB CONC 32 g/dL (31-37); MEAN CORPUSCULAR VOLUME 96 fL (79-100); MONO # 1.1 x10^3/uL (0.0-1.1); MONO % 7 % (0-9); NEUT # 15.5 x10^3/uL (1.8-7.7); NEUT % 91 % (31-73); PLATELET COUNT 171 x10^3/uL (140-400); RED BLOOD COUNT 2.99 x10^6/uL (4.30-5.70); RED CELL DISTRIBUTION WIDTH 16.8 % (11.5-14.5); WHITE BLOOD COUNT 16.9 x10^3/uL (4.0-11.0)
[2020-10-03 08:04] LABS: CALCIUM 8.6 mg/dL (8.5-10.1); GFR 11.4; POTASSIUM 3.6 mmol/L (3.5-5.1)
[2020-10-03 08:17] LABS: ALBUMIN 2.9 g/dL (3.4-5.0); ALBUMIN/GLOBULIN RATIO 0.6 (1.0-1.7); CREATINE KINASE 665 U/L (39-308); MAGNESIUM 1.7 mg/dL (1.8-2.4); TOTAL PROTEIN 7.7 g/dL (6.4-8.2)
[2020-10-03] MEDS ORDERED: HEPARIN for IV BOLUS 10,000 UNIT/10 ML VIAL. IV PRN ×3 (08:30→17:00)
[2020-10-03] MEDS ORDERED: HEPARIN for IV BOLUS 10,000 UNIT/10 ML VIAL. IV ONE (08:30)
[2020-10-03] MEDS ORDERED: HEPARIN 25,000UTS/250ML PREMIX 250 ML IV PRN (08:30)
--- NOTE | 2020-10-03 08:41 | RAD ---
Exam performed: CT scan of the head and cervical spine without contrast. Date of Service:10/03/2020 Comparison:None available . Clinical History: Fall, neck pain Technique: Helical acquisitions are obtained from the foramen magnum to the vertex and through the ce rvical spine without IV contrast. Sagittal and coronal reformatted images are obtained and reviewed . CT head findings: Prominence of cortical sulci and ventricular system is noted consistent with age-related atrophy Norm al velazquez-white differentiation is maintained. There is no extra axial fluid collection, intraparenchy mal hemorrhage or mass lesion. The visualized portions of the orbits, paranasal sinuses and the mast oid air cells appear clear. The calvarium is intact. Impression: 1. No acute intracranial process detected. End impression CT cervical spine findings: There is scoliosis of the cervical spine. Normal sagittal alignment is preserved. Craniocervical and C1-2 articular relation appears preserved. The vertebral body heights are maintained. There is narrow ing of several intravertebral disc spaces with osteophytic spurring. There is no marco or retrolist hesis. There is no perching of facets No prevertebral soft tissue swelling is identified. There are n o fractures. No definite lymphadenopathy or masses are seen within the neck. The visualized thyroid and salivary glands appears preserved. Impression: Spondylotic changes and multilevel disc degenerative changes involving the cervical spine. No acute abnormality seen . PQRS Compliance Statement: One or more of the following individualized dose reduction techniques were utilized for this examinat ion: 1. Automated exposure control 2. Adjustment of the mA and/or kV according to patient size 3. Use of iterative reconstruction technique Electronically signed by: Luisa Frausto MD (10/03/2020 8:39 AM) [id number]
[2020-10-03 09:05] LABS: PROTHROMBIN TIME PATIENT 24.9 SEC (11.7-14.0)
[2020-10-03 09:20] LABS: % BANDS 6 % (0-9); % MONOS 6 % (0-10); % SEGS 88 % (35-66)
[2020-10-03 09:21] LABS: ANISOCYTOSIS PRESENT; PLT ESTIMATE ADEQUATE (ADEQUATE)
--- NOTE | 2020-10-03 09:38 | RAD ---
STUDY: US DPLX VENOUS EXTREMITY LOWER RT INDICATION: Right lower extremity swelling and erythema. DVT. TECHNIQUE: Color-flow and pulsed wave duplex ultrasound with compression of venous structures of the right lower extremity. COMPARISON: None recently. FINDINGS: Duplex ultrasound with compression of the deep venous structures of the right lower extremity from th e common femoral vein through the popliteal vein is negative for DVT. The posterior tibial and peroneal veins are segmentally visualized and patent where seen. Normal veno us waveforms and augmentation are noted throughout. Diffusely edematous and thickened subcutaneous tissues. Hypoechoic, avascular fluid collection at the popliteal fossa measuring 4.9 x 1.3 x 3.3 cm. IMPRESSION: 1. No deep venous thrombosis throughout the right lower extremity. 2. Diffusely edematous and thickened subcutaneous tissues. Differentiation between bland edema and ce llulitis would be better made clinically. 3. Avascular fluid collection within the popliteal fossa most typical of a Mccauley's cyst. Electronically signed by: ADELFO MCRAE MD (10/03/2020 9:36 AM) [id number]
[2020-10-03] MEDS ORDERED: ASPIRIN ENTERIC COATED 325 MG TABLET.DR. PO ONE (09:45)
[2020-10-03] MEDS ORDERED: ONDANSETRON PF 4 MG/2 ML VIAL. IV PRN (09:45)
[2020-10-03] MEDS ORDERED: DEXTROSE 50% 25 GM / 50ML DISP.SYRIN. IV PRN ×2 (10:45→13:00)
[2020-10-03] MEDS ORDERED: INSULIN LISPRO 300 UNITS/3 ML VIAL. SQ SCH (12:00)
[2020-10-03] MEDS ORDERED: HYDROcodone/APAP 7.5/325MG 1 TAB TABLET PO PRN (12:45)
[2020-10-03] MEDS ORDERED: ONDANSETRON PF 4 MG/2 ML VIAL. IVP PRN (13:00)
[2020-10-03] MEDS ORDERED: DOCUSATE SODIUM 100 MG CAPSULE. PO PRN (13:00)
[2020-10-03] MEDS ORDERED: PROCHLORPERAZINE 10 MG/2 ML VIAL. IV PRN (13:00)
[2020-10-03] MEDS ORDERED: SENNOSIDES 8.6 MG TABLET PO PRN (13:00)
[2020-10-03] MEDS ORDERED: MORPHINE SULFATE 2 MG/ML INJ. IV PRN (13:00)
[2020-10-03] MEDS ORDERED: MORPHINE SULFATE 2 MG/ML INJ. IVP PRN (13:00)
[2020-10-03] MEDS ORDERED: ACETAMINOPHEN 325 MG TABLET. PO PRN (13:00)
--- NOTE | 2020-10-03 13:01 | PDOC1 ---
History and Physical Date of Service: DOS: DATE: 10/03/20 TIME: 12:31 Chief Complaint: Chief Complain: Generalized weakness History of Present Illness: HPI: 74 year old male who presents to the ER via EMS with generalized weakness. The patient has a history of Afib, CHF, CKD, and currently receives dialysis. The patient reports that he started feeling fatigued and weak yesterday. He also reports that his BP was in the 80/40 range yesterday. This morning the patient felt too weak to walk which is what brought him to the ER. He reports right lower extremity erythema, bilateral lower extremity edema, abdominal edema, and diarrhea. The patient denies any pain or SOB at this time. Past Medical/Surgical History: PMH/PSH: Past Medical History: A-Fib, Anemia, CAD, CVA, Diabetes-Type II, High Cholesterol, Heart Disease, Hypertension, Pneumonia, Crohns,sleep apnea,PLEURAL EFFUSIONS,aortic stenosis,CKD Past Surgical History: Angioplasty, Appendectomy, Cholecystectomy, Coronary Bypass Surgery, bowel resection,LAMINECTOMY,thoracentesis, AVR, cardiac stents Allergies: Allergies: Coded Allergies: furosemide (Verified Allergy, Severe, Swelling, 04/07/19) amlodipine (Verified Allergy, Intermediate, Swelling, 04/07/19) azathioprine (Verified Allergy, Intermediate, n/v, 04/07/19) infliximab (Verified Allergy, Intermediate, rash, 04/07/19) Family History: Family History: Reviewed with no relevant findings Social History: Social History: Smoking Status: Former Smoker Alcohol Use: Rarely Drug Use: None Current Medications: Current Medications Current Medications Sodium Chloride 1,000 ml @ 1,000 mls/hr 1X ONCE IV ; Start 10/03/20 at 07:30; Stop 10/03/20 at 07:56; Status DC Piperacillin Sod/ Tazobactam Sod 4.5 gm/Sodium Chloride 100 ml @ 200 mls/hr 1X ONCE IV Last administered on 10/03/20at 08:47; Start 10/03/20 at 07:45; Stop 10/03/20 at 08:14; Status DC Heparin Sodium (Porcine) (Heparin Sodium) 4,000 unit 1X ONCE IV Last administered on 10/03/20at 08:58; Start 10/03/20 at 08:30; Stop 10/03/20 at 08:31; Status DC Heparin Sodium/ Dextrose 250 ml @ 0 mls/hr CONT PRN IV PER PROTOCOL Last administered on 10/03/20at 09:00; Start 10/03/20 at 08:30 Heparin Sodium (Porcine) (Heparin Sodium) 2,650 unit PRN Q6HRS PRN IV FOR UFH LEVEL LESS THAN 0.2; Start 10/03/20 at 08:30 Ondansetron HCl (Zofran) 4 mg PRN Q8HRS PRN IV NAUSEA/VOMITING; Start 10/03/20 at 09:45; Stop 10/04/20 at 09:44 Aspirin (Ecotrin) 325 mg 1X ONCE PO Last administered on 10/03/20at 12:18; Start 10/03/20 at 09:45; Stop 10/03/20 at 09:49; Status DC Insulin Human Lispro (HumaLOG) 0-5 UNITS TIDWMEALS SQ ; Start 10/03/20 at 12:00 Dextrose (Dextrose 50%-Water Syringe) 12.5 gm PRN Q15MIN PRN IV SEE COMMENTS; Start 10/03/20 at 10:45 Active Scripts Active Proair Hfa (Albuterol Sulfate) 8.5 Gm Hfa.aer.ad 2.5 Mg NEB PRN Q4HRS PRN Reported Eliquis (Apixaban) 5 Mg Tablet 5 Mg PO BID Gabapentin 300 Mg Capsule 300 Mg PO BID Torsemide 20 Mg Tablet 1 Tab PO BID Ferrous Sulfate 325 Mg Tablet 324 Mg PO BID Aspirin 81 Mg Tab.chew 1 Tab PO DAILY Cyanocobalamin Injection (Cyanocobalamin (Vitamin B-12)) 1,000 Mcg/1 Ml Vial 1,000 Mcg IJ QMONTH Hydrocodone-Apap 7.5-325 (Hydrocodone Bit/Acetaminophen) 1 Each Tablet 1 Tab PO PRN Q6HRS PRN Vitamin D3 (Cholecalciferol (Vitamin D3)) 1,000 Unit Tablet 2,000 Unit PO DAILY Humira (Adalimumab) 40 Mg/0.8 Ml Pen.ij.kit 1 Syr SQ Q2WKS Omeprazole 40 Mg Capsule.dr 1 Cap PO DAILY Atorvastatin Calcium 40 Mg Tablet 1 Tab PO HS ROS: Review of Systems Review of System REVIEW OF SYSTEMS: GENERAL: Denies weakness SKIN: No bruising, hair changes or rashes. EYES: No blurred, double or loss of vision. NOSE AND THROAT: No history of nosebleeds, hoarseness or sore throat. HEART: No history of palpitations, chest pain or shortness of breath on exertion. LUNGS: Denies cough, hemoptysis, wheezing or shortness of breath. GASTROINTESTINAL: Denies changes in appetite, nausea, vomiting, diarrhea or constipation. GENITOURINARY: No history of frequency, urgency, hesitancy or nocturia. NEUROLOGIC: Denies history of numbness, tingling, or tremor. PSYCHIATRIC: No history of panic, anxiety or depression. ENDOCRINE: No history of heat or cold intolerance, polyuria or polydipsia. EXTREMITIES: Denies joint pain, pain on walking or stiffness. Physical Exam: Vital Signs: Vital Signs Date Time Temp Pulse Resp B/P (MAP) Pulse Ox O2 Delivery O2 Flow Rate FiO2 10/03/20 09:51 58 19 87/53 (64) 97 Nasal Cannula 2.0 10/03/20 07:12 98.8 98.8 Physcial Exam: GEN: No apparent distress. Alert and oriented HEENT: Normal cephalic, atraumatic, external auditory canals are patent EYES: Extraocular muscles are intact, pupil are equally round and reactive to light and accommodation MUSCULOSKELETAL: Well developed , well nourished, good range of motion ENDOCRINE: No thyromegaly was palpated LYMPHATICS: No cervical chain or axillary nodes were noted HEMATOPOIETIC: No bruising NECK: Supple, no JVD, no thyromegaly was noted LUNGS: Clear to auscultation in all lung bean without rhonchi or wheezing HEART: RRR, S!, S2 present. Peripheral pulses intact, no obvious murmurs noted ABDOMEN: Soft, nontender. Positive bowel sounds, no organomegaly, normal bowel sounds EXTREMITIES: Without clubbing, cyanosis, or edema. Pedal pulses intact. N egative Homans sign NEUROLOGIC: Normal speech and tone. A&O x 3, moves all extremities, no obvious focal deficits PSYCHIATRIC: Normal affect, normal mood. Stable SKIN: No ulcerations or rashes, good skin turgor, no jaundice VASCULAR: Good capillary refill, neurovascular bundle appears to be intact Labs: Labs: Laboratory Tests Test 10/03/20 07:35 10/03/20 08:38 White Blood Count 16.9 x10^3/uL (4.0-11.0) Red Blood Count 2.99 x10^6/uL (4.30-5.70) Hemoglobin 9.1 g/dL (13.0-17.5) Hematocrit 28.6 % (39.0-53.0) Mean Corpuscular Volume 96 fL (79-100) Mean Corpuscular Hemoglobin 31 pg (25-35) Mean Corpuscular Hemoglobin Concent 32 g/dL (31-37) Red Cell Distribution Width 16.8 % (11.5-14.5) Platelet Count 171 x10^3/uL (140-400) Neutrophils (%) (Auto) 91 % (31-73) Lymphocytes (%) (Auto) 2 % (24-48) Monocytes (%) (Auto) 7 % (0-9) Eosinophils (%) (Auto) 0 % (0-3) Basophils (%) (Auto) 0 % (0-3) Neutrophils # (Auto) 15.5 x10^3/uL (1.8-7.7) Lymphocytes # (Auto) 0.3 x10^3/uL (1.0-4.8) Monocytes # (Auto) 1.1 x10^3/uL (0.0-1.1) Eosinophils # (Auto) 0.0 x10^3/uL (0.0-0.7) Basophils # (Auto) 0.0 x10^3/uL (0.0-0.2) Segmented Neutrophils % 88 % (35-66) Band Neutrophils % 6 % (0-9) Monocytes % 6 % (0-10) Platelet Estimate Adequate (ADEQUATE) Anisocytosis Present Sodium Level 138 mmol/L (136-145) Potassium Level 3.6 mmol/L (3.5-5.1) Chloride Level 101 mmol/L (98-107) Carbon Dioxide Level 28 mmol/L (21-32) Anion Gap 9 (6-14) Blood Urea Nitrogen 34 mg/dL (8-26) Creatinine 5.0 mg/dL (0.7-1.3) Estimated GFR (Cockcroft-Gault) 11.4 BUN/Creatinine Ratio 7 (6-20) Glucose Level 95 mg/dL (70-99) Lactic Acid Level 1.7 mmol/L (0.4-2.0) Calcium Level 8.6 mg/dL (8.5-10.1) Magnesium Level 1.7 mg/dL (1.8-2.4) Total Bilirubin 1.0 mg/dL (0.2-1.0) Aspartate Amino Transf (AST/SGOT) 50 U/L (15-37) Alanine Aminotransferase (ALT/SGPT) 20 U/L (16-63) Alkaline Phosphatase 126 U/L (46-116) Creatine Kinase 665 U/L (39-308) Creatine Kinase MB (Mass) 13.7 ng/mL (0.0-3.6) Creatine Kinase MB Relative Index 2.1 % (0-4) Troponin I Quantitative 3.634 ng/mL (0.000-0.055) AE-Rbi-U-Type Natriuretic Peptide > 99900 pg/mL (0-124) Total Protein 7.7 g/dL (6.4-8.2) Albumin 2.9 g/dL (3.4-5.0) Albumin/Globulin Ratio 0.6 (1.0-1.7) Prothrombin Time 24.9 SEC (11.7-14.0) Prothromb Time International Ratio 2.3 (0.8-1.1) Activated Partial Thromboplast Time 57 SEC (24-38) Laboratory Tests Test 10/03/20 07:35 10/03/20 08:38 White Blood Count 16.9 x10^3/uL (4.0-11.0) Red Blood Count 2.99 x10^6/uL (4.30-5.70) Hemoglobin 9.1 g/dL (13.0-17.5) Hematocrit 28.6 % (39.0-53.0) Mean Corpuscular Volume 96 fL (79-100) Mean Corpuscular Hemoglobin 31 pg (25-35) Mean Corpuscular Hemoglobin Concent 32 g/dL (31-37) Red Cell Distribution Width 16.8 % (11.5-14.5) Platelet Count 171 x10^3/uL (140-400) Neutrophils (%) (Auto) 91 % (31-73) Lymphocytes (%) (Auto) 2 % (24-48) Monocytes (%) (Auto) 7 % (0-9) Eosinophils (%) (Auto) 0 % (0-3) Basophils (%) (Auto) 0 % (0-3) Neutrophils # (Auto) 15.5 x10^3/uL (1.8-7.7) Lymphocytes # (Auto) 0.3 x10^3/uL (1.0-4.8) Monocytes # (Auto) 1.1 x10^3/uL (0.0-1.1) Eosinophils # (Auto) 0.0 x10^3/uL (0.0-0.7) Basophils # (Auto) 0.0 x10^3/uL (0.0-0.2) Segmented Neutrophils % 88 % (35-66) Band Neutrophils % 6 % (0-9) Monocytes % 6 % (0-10) Platelet Estimate Adequate (ADEQUATE) Anisocytosis Present Sodium Level 138 mmol/L (136-145) Potassium Level 3.6 mmol/L (3.5-5.1) Chloride Level 101 mmol/L (98-107) Carbon Dioxide Level 28 mmol/L (21-32) Anion Gap 9 (6-14) Blood Urea Nitrogen 34 mg/dL (8-26) Creatinine 5.0 mg/dL (0.7-1.3) Estimated GFR (Cockcroft-Gault) 11.4 BUN/Creatinine Ratio 7 (6-20) Glucose Level 95 mg/dL (70-99) Lactic Acid Level 1.7 mmol/L (0.4-2.0) Calcium Level 8.6 mg/dL (8.5-10.1) Magnesium Level 1.7 mg/dL (1.8-2.4) Total Bilirubin 1.0 mg/dL (0.2-1.0) Aspartate Amino Transf (AST/SGOT) 50 U/L (15-37) Alanine Aminotransferase (ALT/SGPT) 20 U/L (16-63) Alkaline Phosphatase 126 U/L (46-116) Creatine Kinase 665 U/L (39-308) Creatine Kinase MB (Mass) 13.7 ng/mL (0.0-3.6) Creatine Kinase MB Relative Index 2.1 % (0-4) Troponin I Quantitative 3.634 ng/mL (0.000-0.055) LU-Aqk-D-Type Natriuretic Peptide > 10731 pg/mL (0-124) Total Protein 7.7 g/dL (6.4-8.2) Albumin 2.9 g/dL (3.4-5.0) Albumin/Globulin Ratio 0.6 (1.0-1.7) Prothrombin Time 24.9 SEC (11.7-14.0) Prothromb Time International Ratio 2.3 (0.8-1.1) Activated Partial Thromboplast Time 57 SEC (24-38) Images: Images PROCEDURE: CT HEAD AND CERVICAL SPINE WO ADDENDUM ADDENDUM #1 Addendum: Single view of the chest findings: Poor historian effort. Mild cardiomegaly. Central vascular congestion. Previous median sternotomy. There is a left right-sided dialysis-type catheter. No focal infiltrates, effusion or pneumothorax is seen. Bones are normal. Electronically signed by: Luisa Frausto MD (10/03/2020 9:40 AM) [id number] ORIGINAL REPORT Exam performed: CT scan of the head and cervical spine without contrast. Date of Service:10/03/2020 Comparison:None available . Clinical History: Fall, neck pain Technique: Helical acquisitions are obtained from the foramen magnum to the vertex and through the cervical spine without IV contrast. Sagittal and coronal reformatted images are obtained and reviewed. CT head findings: Prominence of cortical sulci and ventricular system is noted consistent with age-related atrophy Normal velazquez-white differentiation is maintained. There is no extra axial fluid collection, intraparenchymal hemorrhage or mass lesion. The visualized portions of the orbits, paranasal sinuses and the mastoid air cells appear clear. The calvarium is intact. Impression: 1. No acute intracranial process detected. End impression CT cervical spine findings: There is scoliosis of the cervical spine. Normal sagittal alignment is preserved. Craniocervical and C1-2 articular relation appears preserved. The vertebral body heights are maintained. There is narrowing of several intravertebral disc spaces with osteophytic spurring. There is no marco or retrolisthesis. There is no perching of facets No prevertebral soft tissue swelling is identified. There are no fractures. No definite lymphadenopathy or masses are seen within the neck. The visualized thyroid and salivary glands appears preserved. Impression: Spondylotic changes and multilevel disc degenerative changes involving the cervical spine. No acute abnormality seen . PQRS Compliance Statement: One or more of the following individualized dose reduction techniques were utilized for this examination: 1. Automated exposure control 2. Adjustment of the mA and/or kV according to patient size 3. Use of iterative reconstruction technique Electronically signed by: Luisa Frausto MD (10/03/2020 8:39 AM) [id number] DICTATED AND SIGNED BY: LUISA FRAUSTO MD DATE: 10/03/20 0939 CC: VELVET BAZAN MD; ROME FERNANDEZ MD; JINNY ARTIS MD; JHONATAN BRAVO DO ~ Exam performed: CT scan of the head and cervical spine without contrast. Date of Service:10/03/2020 Comparison:None available . Clinical History: Fall, neck pain Technique: Helical acquisitions are obtained from the foramen magnum to the vertex and through the cervical spine without IV contrast. Sagittal and coronal reformatted images are obtained and reviewed. CT head findings: Prominence of cortical sulci and ventricular system is noted consistent with age-related atrophy Normal velazquez-white differentiation is maintained. There is no extra axial fluid collection, intraparenchymal hemorrhage or mass lesion. The visualized portions of the orbits, paranasal sinuses and the mastoid air cells appear clear. The calvarium is intact. Impression: 1. No acute intracranial process detected. End impression CT cervical spine findings: There is scoliosis of the cervical spine. Normal sagittal alignment is preserved. Craniocervical and C1-2 articular relation appears preserved. The vertebral body heights are maintained. There is narrowing of several intravertebral disc spaces with osteophytic spurring. There is no marco or retrolisthesis. There is no perching of facets No prevertebral soft tissue swelling is identified. There are no fractures. No definite lymphadenopathy or masses are seen within the neck. The visualized thyroid and salivary glands appears preserved. Impression: Spondylotic changes and multilevel disc degenerative changes involving the cervical spine. No acute abnormality seen . PROCEDURE: VENOUS LOWER EXTREMITY RIGHT IMPRESSION: 1. No deep venous thrombosis throughout the right lower extremity. 2. Diffusely edematous and thickened subcutaneous tissues. Differentiation between bland edema and cellulitis would be better made clinically. 3. Avascular fluid collection within the popliteal fossa most typical of a Mccauley's cyst. Assessment/Plan Assessment/Plan Sepsis Hemodynamic instability Right lower extremity cellulitis Acute volume overload Elevated troponins, likely type II demand ischemia, possible NSTEMI Anasarca Acute electrolyte derangement due to ESRD Right buttock ulcers concerning for pressure ulcers Concern for caregiver burden ESRD TTS Atrial fibrillation on Eliquis History of diabetes mellitus type 2 Dyslipidemia Hypertension CABG ALESIA Anemia due to ESRD Obesity class I Admit to telemetry with hospitalist to manage Cardiology consult for non-STEMI Nephrology consult for hemodialysis We will likely start p.o. vasopressor midodrine in the meantime if there is no response, will likely need to start vasopressor or remove more fluid Continue empiric IV antibiotics Pending blood cultures Strict I's and O's Avoid nephrotoxic agents Heparin drip for DVT prophylaxis Protonix GI prophylaxis ADA diet Full code Discussed with RN and SW Disposition patient management as above Surrogate decision maker is A total of 50 minutes of critical care time was spent in reviewing chart, labs, and images. Discussed with RN and SW. In addition to my E/M visit, advance care planning done with A total time of 20 minutes was spent from 1120 to 1140 face to face in discussion with the patient and family regarding their goals of care, CODE STATUS. Justifications for Admission Other Justification FLASH BORGES MD Oct 03, 2020 13:01
[2020-10-03] MEDS ORDERED: VANCOMYCIN 1.5 GM in IV NORMAL SALINE 500ML BAG 500 ML IV ONE (13:15)
[2020-10-03] MEDS ORDERED: MIDODRINE 5 MG TABLET PO SCH (13:30)
[2020-10-03] MEDS ORDERED: METHOCARBAMOL 750 MG TABLET PO PRN (13:45)
[2020-10-03] MEDS: VANCOMYCIN PER PHARMACY MC PRN (16:48)
--- NOTE | 2020-10-03 16:49 | NUR ---
Pharmacy Vancomycin Dosing Note S:Consulted to monitor and dose vancomycin started 10/03/20. O:JESSE MCGEE is a 74 year old M with cellulitis, sepsis. Height: 5 feet, 10 inches Weight: 100.8 kg Dosing Weight: Other Antibiotics: ZOSYN 2.25G IV Q8HRS LABS: Last BUN: 34 Last Creatinine: 5 Creatinine Clearance: ESRD on HD TTS Last WBC: 16.9 Tmax (past 24 hours): 98.8 Microbiology: BLOOD CX IN PROCESS A: Patient requires vancomycin for sepsis/cellulitis. Goal trough 15-20 mcg/ml. He is ESRD with HD on //Sun schedule. Order the following: P: 1. Initiate Vancomycin 1500 mg IV x 1 dose 2. Follow up pre-HD random level on 10/05/20 at 0600 3. Pharmacy will continue to monitor, follow and adjust therapy as needed. ANNA APODACA [facility] [place], 10/03/20 [id number]
[2020-10-03] MEDS: INSULIN LISPRO 300 UNITS/3 ML VIAL. SQ SCH (17:00)
[2020-10-03] MEDS: PIPERACILLIN/TAZOBACTAM 2.25 GM in IV NORMAL SALINE 50ML 50 ML IV SCH ×2 (17:03→21:55)
--- NOTE | 2020-10-03 17:23 | PDOC2 ---
CONSULT Date of Consult Date of Consult DATE: 10/03/20 TIME: 17:15 Reason for Consult Reason for Consult: Mildly elevated troponin, history of bypass surgery, septic shock. Referring Physician Referring Physician: Dr. Christy Identification/Chief Complaint Chief Complaint Increasing weakness. Source Source: Chart review, Patient History of Present Illness Reason for Visit: The patient is a 74-year-old male with an extensive medical history who presented with a chief complaint of increasing generalized weakness. This is been present for at least 3 to 5 days. He denied chest pain. His history is significant for end-stage renal disease on hemodialysis, bypass surgery in 2018, atrial fibrillation, and a previous CVA. He had an echocardiogram on 03/25/2020 that showed an ejection fraction of 55 to 60% with moderate tricuspid regurgitation and an elevated PAP. Lab today is significant for potassium of 3.6, creatinine of 5.0 and a troponin of 3.6. His EKG shows atrial fibrillation but no ST elevation. He has mild ST depression in the anterior leads. Past Medical History Cardiovascular: AFIB, CAD, HTN, Hyperlipidemia Pulmonary: Pneumonia, Other CENTRAL NERVOUS SYSTEM: Other GI: Inflam bowel disease Heme/Onc: Cancer Psych: No pertinent hx Musculoskeletal: Osteoarthritis Rheumatologic: No pertinent hx Infectious disease: No pertinent hx Renal/: Chronic renal failure, Benign prostatic enlarg. Endocrine: Diabetes Past Surgical History Past Surgical History: Appendectomy, Cholecystectomy, CABG, Colon Resection, Other (Laminectomy) Family History Family History: Heart Disease, Hypertension Social History Quit ALCOHOL: other Drugs: None Lives: with Family Current Problem List Problem List Problems Medical Problems: (1) Cellulitis of right lower extremity Status: Acute (2) End-stage renal disease on hemodialysis Status: Acute (3) Hypotension Status: Acute Current Medications Current Medications Current Medications Sodium Chloride 1,000 ml @ 1,000 mls/hr 1X ONCE IV ; Start 10/03/20 at 07:30; Stop 10/03/20 at 07:56; Status DC Piperacillin Sod/ Tazobactam Sod 4.5 gm/Sodium Chloride 100 ml @ 200 mls/hr 1X ONCE IV Last administered on 10/03/20at 08:47; Start 10/03/20 at 07:45; Stop 10/03/20 at 08:14; Status DC Heparin Sodium (Porcine) (Heparin Sodium) 4,000 unit 1X ONCE IV Last administered on 10/03/20at 08:58; Start 10/03/20 at 08:30; Stop 10/03/20 at 08:31; Status DC Heparin Sodium/ Dextrose 250 ml @ 0 mls/hr CONT PRN IV PER PROTOCOL Last administered on 10/03/20at 09:00; Start 10/03/20 at 08:30; Stop 10/03/20 at 16:59; Status DC Heparin Sodium (Porcine) (Heparin Sodium) 2,650 unit PRN Q6HRS PRN IV FOR UFH LEVEL LESS THAN 0.2; Start 10/03/20 at 08:30; Stop 10/03/20 at 16:59; Status DC Ondansetron HCl (Zofran) 4 mg PRN Q8HRS PRN IV NAUSEA/VOMITING; Start 10/03/20 at 09:45; Stop 10/04/20 at 09:44 Aspirin (Ecotrin) 325 mg 1X ONCE PO Last administered on 10/03/20at 12:18; Start 10/03/20 at 09:45; Stop 10/03/20 at 09:49; Status DC Insulin Human Lispro (HumaLOG) 0-5 UNITS TIDWMEALS SQ ; Start 10/03/20 at 12:00; Stop 10/03/20 at 13:04; Status DC Dextrose (Dextrose 50%-Water Syringe) 12.5 gm PRN Q15MIN PRN IV SEE COMMENTS; Start 10/03/20 at 10:45; Stop 10/03/20 at 13:04; Status DC Atorvastatin Calcium (Lipitor) 40 mg HS PO ; Start 10/03/20 at 21:00 Vitamin D (Vitamin D3) 2,000 unit DAILY PO ; Start 10/04/20 at 09:00 Gabapentin (Neurontin) 300 mg BID PO ; Start 10/03/20 at 21:00 Acetaminophen/ Hydrocodone Bitart (Lortab 7.5/325) 1 tab PRN Q6HRS PRN PO PAIN Last administered on 10/03/20at 14:36; Start 10/03/20 at 12:45 Pantoprazole Sodium (Protonix) 40 mg DAILYAC PO ; Start 10/04/20 at 07:30 Sennosides (Senna) 17.2 mg PRN BID PRN PO CONSTIPATION; Start 10/03/20 at 13:00 Docusate Sodium (Colace) 100 mg PRN DAILY PRN PO HARD STOOLS; Start 10/03/20 at 13:00 Ondansetron HCl (Zofran) 4 mg PRN Q6HRS PRN IVP NAUSEA/VOMITING; Start 10/03/20 at 13:00 Insulin Human Lispro (HumaLOG) 0-7 UNITS TIDWMEALS SQ ; Start 10/03/20 at 17:00 Dextrose (Dextrose 50%-Water Syringe) 12.5 gm PRN Q15MIN PRN IV SEE COMMENTS; Start 10/03/20 at 13:00 Acetaminophen (Tylenol) 650 mg PRN Q4HRS PRN PO TEMP OVER 100.4F OR MILD PAIN; Start 10/03/20 at 13:00 Vancomycin HCl (Vanco Per Pharmacy) 1 each PRN DAILY PRN MC SEE COMMENTS Last administered on 10/03/20at 16:48; Start 10/03/20 at 13:00 Piperacillin Sod/ Tazobactam Sod 3.375 gm/Sodium Chloride 50 ml @ 100 mls/hr Q6HRS IV ; Start 10/03/20 at 18:00; Stop 10/03/20 at 13:07; Status DC Morphine Sulfate (Morphine Sulfate) 1 mg PRN Q1HR PRN IV PAIN; Start 10/03/20 at 13:00 Morphine Sulfate (Morphine Sulfate) 2 mg PRN Q2HR PRN IVP SEVERE PAIN 7-10; Start 10/03/20 at 13:00; Stop 10/04/20 at 12:59 Prochlorperazine Edisylate (Compazine) 10 mg PRN Q6HRS PRN IV NAUSEA/VOMITING, 2ND CHOICE; Start 10/03/20 at 13:00 Midodrine (Proamatine) 5 mg [id number] PO Last administered on 10/03/20at 13:26; Start 10/03/20 at 13:30; Stop 10/03/20 at 13:47; Status DC Piperacillin Sod/ Tazobactam Sod 2.25 gm/Sodium Chloride 50 ml @ 100 mls/hr Q8HRS IV Last administered on 10/03/20at 17:03; Start 10/03/20 at 14:00 Vancomycin HCl 1.5 gm/Sodium Chloride 500 ml @ 250 mls/hr 1X ONCE IV Last administered on 10/03/20at 14:04; Start 10/03/20 at 13:15; Stop 10/03/20 at 15:14; Status DC Dopamine HCl/ Dextrose 250 ml @ 19.688 mls/ hr CONT PRN IV SEE I/O RECORD Last administered on 10/03/20at 14:03; Start 10/03/20 at 13:45 Methocarbamol (Robaxin) 1,500 mg PRN Q6HRS PRN PO BACK PAIN; Start 10/03/20 at 13:45 Vancomycin HCl (Vancomycin Random Level) 1 each 1X ONCE MC ; Start 10/05/20 at 06:00; Stop 10/05/20 at 06:01 Heparin Sodium/ Dextrose 250 ml @ 0 mls/hr CONT PRN IV PER PROTOCOL; Start 10/03/20 at 17:00 Heparin Sodium (Porcine) (Heparin Sodium) 25 UNITS / KG PRN Q6HRS PRN IV FOR PTT < 40; Start 10/03/20 at 17:00; Stop 10/03/20 at 17:00; Status DC Heparin Sodium (Porcine) (Heparin Sodium) 2,500 unit PRN Q6HRS PRN IV FOR PTT < 40; Start 10/03/20 at 17:00 Active Scripts Active Proair Hfa (Albuterol Sulfate) 8.5 Gm Hfa.aer.ad 2.5 Mg NEB PRN Q4HRS PRN Reported Eliquis (Apixaban) 5 Mg Tablet 5 Mg PO BID Gabapentin 300 Mg Capsule 300 Mg PO BID Torsemide 20 Mg Tablet 1 Tab PO BID Ferrous Sulfate 325 Mg Tablet 324 Mg PO BID Aspirin 81 Mg Tab.chew 1 Tab PO DAILY Cyanocobalamin Injection (Cyanocobalamin (Vitamin B-12)) 1,000 Mcg/1 Ml Vial 1,000 Mcg IJ QMONTH Hydrocodone-Apap 7.5-325 (Hydrocodone Bit/Acetaminophen) 1 Each Tablet 1 Tab PO PRN Q6HRS PRN Vitamin D3 (Cholecalciferol (Vitamin D3)) 1,000 Unit Tablet 2,000 Unit PO DAILY Humira (Adalimumab) 40 Mg/0.8 Ml Pen.ij.kit 1 Syr SQ Q2WKS Omeprazole 40 Mg Capsule.dr 1 Cap PO DAILY Atorvastatin Calcium 40 Mg Tablet 1 Tab PO HS Allergies Allergies: Coded Allergies: furosemide (Verified Allergy, Severe, Swelling, 04/07/19) amlodipine (Verified Allergy, Intermediate, Swelling, 04/07/19) azathioprine (Verified Allergy, Intermediate, n/v, 04/07/19) infliximab (Verified Allergy, Intermediate, rash, 04/07/19) ROS General: YES: Fatigue, Malaise Respiratory: YES: SOB with excertion Physical Exam General: mild distress Lungs: Other (Mildly decreased breath sounds) Heart: Other (Irregularly irregular rhythm) Abdomen: Normal bowel sounds Vitals VITALS Vital Signs Date Time Temp Pulse Resp B/P (MAP) Pulse Ox O2 Delivery O2 Flow Rate FiO2 10/03/20 15:30 70 17 108/52 (70) 89 Nasal Cannula 2.0 10/03/20 07:12 98.8 98.8 Labs Labs Laboratory Tests Test 10/03/20 07:35 10/03/20 08:38 10/03/20 12:26 10/03/20 15:10 White Blood Count 16.9 x10^3/uL (4.0-11.0) Red Blood Count 2.99 x10^6/uL (4.30-5.70) Hemoglobin 9.1 g/dL (13.0-17.5) Hematocrit 28.6 % (39.0-53.0) Mean Corpuscular Volume 96 fL (79-100) Mean Corpuscular Hemoglobin 31 pg (25-35) Mean Corpuscular Hemoglobin Concent 32 g/dL (31-37) Red Cell Distribution Width 16.8 % (11.5-14.5) Platelet Count 171 x10^3/uL (140-400) Neutrophils (%) (Auto) 91 % (31-73) Lymphocytes (%) (Auto) 2 % (24-48) Monocytes (%) (Auto) 7 % (0-9) Eosinophils (%) (Auto) 0 % (0-3) Basophils (%) (Auto) 0 % (0-3) Neutrophils # (Auto) 15.5 x10^3/uL (1.8-7.7) Lymphocytes # (Auto) 0.3 x10^3/uL (1.0-4.8) Monocytes # (Auto) 1.1 x10^3/uL (0.0-1.1) Eosinophils # (Auto) 0.0 x10^3/uL (0.0-0.7) Basophils # (Auto) 0.0 x10^3/uL (0.0-0.2) Segmented Neutrophils % 88 % (35-66) Band Neutrophils % 6 % (0-9) Monocytes % 6 % (0-10) Platelet Estimate Adequate (ADEQUATE) Anisocytosis Present Sodium Level 138 mmol/L (136-145) Potassium Level 3.6 mmol/L (3.5-5.1) Chloride Level 101 mmol/L (98-107) Carbon Dioxide Level 28 mmol/L (21-32) Anion Gap 9 (6-14) Blood Urea Nitrogen 34 mg/dL (8-26) Creatinine 5.0 mg/dL (0.7-1.3) Estimated GFR (Cockcroft-Gault) 11.4 BUN/Creatinine Ratio 7 (6-20) Glucose Level 95 mg/dL (70-99) Lactic Acid Level 1.7 mmol/L (0.4-2.0) Calcium Level 8.6 mg/dL (8.5-10.1) Magnesium Level 1.7 mg/dL (1.8-2.4) Total Bilirubin 1.0 mg/dL (0.2-1.0) Aspartate Amino Transf (AST/SGOT) 50 U/L (15-37) Alanine Aminotransferase (ALT/SGPT) 20 U/L (16-63) Alkaline Phosphatase 126 U/L (46-116) Creatine Kinase 665 U/L (39-308) Creatine Kinase MB (Mass) 13.7 ng/mL (0.0-3.6) Creatine Kinase MB Relative Index 2.1 % (0-4) Troponin I Quantitative 3.634 ng/mL (0.000-0.055) 5.104 ng/mL (0.000-0.055) 5.426 ng/mL (0.000-0.055) OJ-Vmp-A-Type Natriuretic Peptide > 98970 pg/mL (0-124) Total Protein 7.7 g/dL (6.4-8.2) Albumin 2.9 g/dL (3.4-5.0) Albumin/Globulin Ratio 0.6 (1.0-1.7) Prothrombin Time 24.9 SEC (11.7-14.0) Prothromb Time International Ratio 2.3 (0.8-1.1) Activated Partial Thromboplast Time 57 SEC (24-38) Heparin Anti-Xa Act, Unfractionated > 1.10 IU/mL (0.30-0.70) Laboratory Tests Test 10/03/20 07:35 10/03/20 08:38 10/03/20 12:26 10/03/20 15:10 White Blood Count 16.9 x10^3/uL (4.0-11.0) Red Blood Count 2.99 x10^6/uL (4.30-5.70) Hemoglobin 9.1 g/dL (13.0-17.5) Hematocrit 28.6 % (39.0-53.0) Mean Corpuscular Volume 96 fL (79-100) Mean Corpuscular Hemoglobin 31 pg (25-35) Mean Corpuscular Hemoglobin Concent 32 g/dL (31-37) Red Cell Distribution Width 16.8 % (11.5-14.5) Platelet Count 171 x10^3/uL (140-400) Neutrophils (%) (Auto) 91 % (31-73) Lymphocytes (%) (Auto) 2 % (24-48) Monocytes (%) (Auto) 7 % (0-9) Eosinophils (%) (Auto) 0 % (0-3) Basophils (%) (Auto) 0 % (0-3) Neutrophils # (Auto) 15.5 x10^3/uL (1.8-7.7) Lymphocytes # (Auto) 0.3 x10^3/uL (1.0-4.8) Monocytes # (Auto) 1.1 x10^3/uL (0.0-1.1) Eosinophils # (Auto) 0.0 x10^3/uL (0.0-0.7) Basophils # (Auto) 0.0 x10^3/uL (0.0-0.2) Segmented Neutrophils % 88 % (35-66) Band Neutrophils % 6 % (0-9) Monocytes % 6 % (0-10) Platelet Estimate Adequate (ADEQUATE) Anisocytosis Present Sodium Level 138 mmol/L (136-145) Potassium Level 3.6 mmol/L (3.5-5.1) Chloride Level 101 mmol/L (98-107) Carbon Dioxide Level 28 mmol/L (21-32) Anion Gap 9 (6-14) Blood Urea Nitrogen 34 mg/dL (8-26) Creatinine 5.0 mg/dL (0.7-1.3) Estimated GFR (Cockcroft-Gault) 11.4 BUN/Creatinine Ratio 7 (6-20) Glucose Level 95 mg/dL (70-99) Lactic Acid Level 1.7 mmol/L (0.4-2.0) Calcium Level 8.6 mg/dL (8.5-10.1) Magnesium Level 1.7 mg/dL (1.8-2.4) Total Bilirubin 1.0 mg/dL (0.2-1.0) Aspartate Amino Transf (AST/SGOT) 50 U/L (15-37) Alanine Aminotransferase (ALT/SGPT) 20 U/L (16-63) Alkaline Phosphatase 126 U/L (46-116) Creatine Kinase 665 U/L (39-308) Creatine Kinase MB (Mass) 13.7 ng/mL (0.0-3.6) Creatine Kinase MB Relative Index 2.1 % (0-4) Troponin I Quantitative 3.634 ng/mL (0.000-0.055) 5.104 ng/mL (0.000-0.055) 5.426 ng/mL (0.000-0.055) JH-Lyy-H-Type Natriuretic Peptide > 45827 pg/mL (0-124) Total Protein 7.7 g/dL (6.4-8.2) Albumin 2.9 g/dL (3.4-5.0) Albumin/Globulin Ratio 0.6 (1.0-1.7) Prothrombin Time 24.9 SEC (11.7-14.0) Prothromb Time International Ratio 2.3 (0.8-1.1) Activated Partial Thromboplast Time 57 SEC (24-38) Heparin Anti-Xa Act, Unfractionated > 1.10 IU/mL (0.30-0.70) Images Images Chest x-ray shows no acute processes. CT head scan showed no acute processes. Right lower extremity ultrasound shows no DVT. Assessment/Plan Assessment/Plan 1. Sepsis. Patient has been started on antibiotics and pressors. He will be transferred to the intensive care unit. We will adjust pressors as needed. 2. Elevated troponin at 3.6. History of bypass surgery in 2019. No ST elevation on EKG. Will trend troponin. Possibly demand ischemia secondary to his sepsis and hypotension. We will check an echocardiogram for LV function and to evaluate pulmonary artery pressures. 3. Atrial fibrillation. Rate is under reasonable control. Continue present treatment. 4. Hyperlipidemia. Will check lab and continue medications. 5. History of a CVA. 6. End-stage renal disease on hemodialysis. Renal consult is pending. VELVET BAZAN MD Oct 03, 2020 17:23
[2020-10-03] MEDS ORDERED: PIPERACILLIN/TAZOBACTAM 3.375 GM in IV NORMAL SALINE 50ML 50 ML IV SCH (18:00)
[2020-10-03] MEDS: GABAPENTIN 300 MG CAPSULE. PO SCH (21:10)
[2020-10-03] MEDS: ATORVASTATIN CALCIUM 40 MG TABLET. PO SCH (21:10)
--- NOTE | 2020-10-03 22:23 | EKG ---
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
[2020-10-04] VITALS (25 sets, daily range): BP systolic 84–132; BP diastolic 33–65
[2020-10-04] MEDS: PIPERACILLIN/TAZOBACTAM 2.25 GM in IV NORMAL SALINE 50ML 50 ML IV SCH ×3 (05:49→21:17)
[2020-10-04 07:23] LABS: BASO % 0 % (0-3); EOS # 0.4 x10^3/uL (0.0-0.7); EOS % 3 % (0-3); HEMATOCRIT 31.1 % (39.0-53.0); HEMOGLOBIN 9.9 g/dL (13.0-17.5); LYMPH # 0.4 x10^3/uL (1.0-4.8); LYMPH % 3 % (24-48); MEAN CORPUSCULAR HEMOGLOBIN 31 pg (25-35); MEAN CORPUSCULAR HGB CONC 32 g/dL (31-37); MEAN CORPUSCULAR VOLUME 97 fL (79-100); MONO % 8 % (0-9); NEUT # 10.6 x10^3/uL (1.8-7.7); NEUT % 85 % (31-73); PLATELET COUNT 184 x10^3/uL (140-400); RED BLOOD COUNT 3.22 x10^6/uL (4.30-5.70); RED CELL DISTRIBUTION WIDTH 16.8 % (11.5-14.5); WHITE BLOOD COUNT 12.4 x10^3/uL (4.0-11.0)
[2020-10-04 07:53] LABS: CALCIUM 8.4 mg/dL (8.5-10.1); GFR 9.2; MAGNESIUM 1.9 mg/dL (1.8-2.4); PHOSPHORUS 5.1 mg/dL (2.6-4.7); POTASSIUM 3.7 mmol/L (3.5-5.1)
[2020-10-04] MEDS: INSULIN LISPRO 300 UNITS/3 ML VIAL. SQ SCH ×3 (08:00→17:00)
[2020-10-04] MEDS: VANCOMYCIN PER PHARMACY MC PRN (08:12)
[2020-10-04] MEDS ORDERED: diphenhydrAMINE 50 MG/ML VIAL IV PRN ×2 (08:15)
[2020-10-04] MEDS ORDERED: IV NORMAL SALINE 1000ML BAG 1,000 ML IV PRN ×2 (08:15)
[2020-10-04] MEDS ORDERED: DIALYSIS PATIENT. MC PRN (08:15)
--- NOTE | 2020-10-04 08:45 | PDOC ---
[employer] PROGRESS NOTE Date of Service DOS: DATE: 10/04/20 TIME: 08:41 Chief Complaint Chief Complaint Sepsis Hemodynamic instability Right lower extremity cellulitis Acute volume overload Elevated troponins, likely type II demand ischemia, possible NSTEMI Anasarca Acute electrolyte derangement due to ESRD Right buttock ulcers concerning for pressure ulcers Concern for caregiver burden ESRD TTS Atrial fibrillation on Eliquis History of diabetes mellitus type 2 Dyslipidemia Hypertension CABG ALESIA Anemia due to ESRD Obesity class I Admit to telemetry with hospitalist to manage Cardiology consult for non-STEMI Nephrology consult for hemodialysis We will likely start p.o. vasopressor midodrine in the meantime if there is no response, will likely need to start vasopressor or remove more fluid Continue empiric IV antibiotics Pending blood cultures Strict I's and O's Avoid nephrotoxic agents Heparin drip for DVT prophylaxis Protonix GI prophylaxis ADA diet Full code Discussed with RN and SW Disposition patient management as above Surrogate decision maker is History of Present Illness History of Present Illness 74 year old male who presents to the ER via EMS with generalized weakness. The patient has a history of Afib, CHF, CKD, and currently receives dialysis. The patient reports that he started feeling fatigued and weak yesterday. He also reports that his BP was in the 80/40 range yesterday. This morning the patient felt too weak to walk which is what brought him to the ER. He reports right lower extremity erythema, bilateral lower extremity edema, abdominal edema, and diarrhea. The patient denies any pain or SOB at this time. 10/04/2020: Patient seen in ICU, afebrile. Currently breathing on 3 L nasal cannula and requiring vasopressors. Has no complaints today. Admits to some chronic diarrhea secondary to his history of Crohn's disease. Continue treatment cellulitis with Zosyn and vancomycin. Denies any sick contacts at home. Critical care time 30 minutes spent reviewing charts, reviewing labs, reviewing imaging, discussion with RN. Vitals/I&O Vitals/I&O: Vital Signs Date Time Temp Pulse Resp B/P (MAP) Pulse Ox O2 Delivery O2 Flow Rate FiO2 10/04/20 06:00 64 15 85/58 (67) 97 Nasal Cannula 3.0 10/04/20 04:00 97.6 97.6 I & O 10/03/20 10/03/20 10/04/20 15:00 23:00 07:00 Intake Total 50 ml 671 ml Output Total 0 ml 0 ml Balance 50 ml 671 ml Physical Exam General: Alert, Cooperative, No acute distress Heart: Regular rate, Other (Irregularly irregular rhythm) Lungs: Clear Abdomen: Normal bowel sounds Extremities: No clubbing, No cyanosis Skin: Other (Bilateral lower extremity erythema, right greater than left.) Labs Labs: Laboratory Tests Test 10/03/20 12:26 10/03/20 15:10 10/03/20 17:52 10/04/20 00:38 Troponin I Quantitative 5.104 ng/mL (0.000-0.055) 5.426 ng/mL (0.000-0.055) Activated Partial Thromboplast Time 136 SEC (24-38) 83 SEC (24-38) Heparin Anti-Xa Act, Unfractionated > 1.10 IU/mL (0.30-0.70) Glucose (Fingerstick) 97 mg/dL (70-99) Test 10/04/20 07:05 White Blood Count 12.4 x10^3/uL (4.0-11.0) Red Blood Count 3.22 x10^6/uL (4.30-5.70) Hemoglobin 9.9 g/dL (13.0-17.5) Hematocrit 31.1 % (39.0-53.0) Mean Corpuscular Volume 97 fL (79-100) Mean Corpuscular Hemoglobin 31 pg (25-35) Mean Corpuscular Hemoglobin Concent 32 g/dL (31-37) Red Cell Distribution Width 16.8 % (11.5-14.5) Platelet Count 184 x10^3/uL (140-400) Neutrophils (%) (Auto) 85 % (31-73) Lymphocytes (%) (Auto) 3 % (24-48) Monocytes (%) (Auto) 8 % (0-9) Eosinophils (%) (Auto) 3 % (0-3) Basophils (%) (Auto) 0 % (0-3) Neutrophils # (Auto) 10.6 x10^3/uL (1.8-7.7) Lymphocytes # (Auto) 0.4 x10^3/uL (1.0-4.8) Monocytes # (Auto) 1.0 x10^3/uL (0.0-1.1) Eosinophils # (Auto) 0.4 x10^3/uL (0.0-0.7) Basophils # (Auto) 0.0 x10^3/uL (0.0-0.2) Activated Partial Thromboplast Time 70 SEC (24-38) Sodium Level 134 mmol/L (136-145) Potassium Level 3.7 mmol/L (3.5-5.1) Chloride Level 97 mmol/L (98-107) Carbon Dioxide Level 28 mmol/L (21-32) Anion Gap 9 (6-14) Blood Urea Nitrogen 46 mg/dL (8-26) Creatinine 6.0 mg/dL (0.7-1.3) Estimated GFR (Cockcroft-Gault) 9.2 Glucose Level 107 mg/dL (70-99) Calcium Level 8.4 mg/dL (8.5-10.1) Phosphorus Level 5.1 mg/dL (2.6-4.7) Magnesium Level 1.9 mg/dL (1.8-2.4) Assessment and Plan Assessmemt and Plan Problems Medical Problems: (1) Cellulitis of right lower extremity Status: Acute (2) End-stage renal disease on hemodialysis Status: Acute (3) Hypotension Status: Acute Comment Review of Relevant I have reviewed the following items bernadine (where applicable) has been applied. Medications: Current Medications Medications (Trade) Dose Ordered Sig/Jose Route PRN Reason Start Time Stop Time Status Last Admin Dose Admin Aspirin (Ecotrin) 325 mg 1X ONCE PO 10/03/20 09:45 10/03/20 09:49 DC 10/03/20 12:18 Atorvastatin Calcium (Lipitor) 40 mg HS PO 10/03/20 21:00 10/03/20 21:10 Gabapentin (Neurontin) 300 mg BID PO 10/03/20 21:00 10/03/20 21:10 Acetaminophen/ Hydrocodone Bitart (Lortab 7.5/325) 1 tab PRN Q6HRS PRN PO MODERATE-SEVERE PAIN 10/03/20 12:45 10/03/20 14:36 Vancomycin HCl (Vanco Per Pharmacy) 1 each PRN DAILY PRN MC SEE COMMENTS 10/03/20 13:00 10/04/20 08:12 Midodrine (Proamatine) 5 mg [id number] PO 10/03/20 13:30 10/03/20 13:47 DC 10/03/20 13:26 Piperacillin Sod/ Tazobactam Sod 2.25 gm/Sodium Chloride 50 ml @ 100 mls/hr Q8HRS IV 10/03/20 14:00 10/04/20 05:49 Vancomycin HCl 1.5 gm/Sodium Chloride 500 ml @ 250 mls/hr 1X ONCE IV 10/03/20 13:15 10/03/20 15:14 DC 10/03/20 14:04 Dopamine HCl/ Dextrose 250 ml @ 19.688 mls/ hr CONT PRN IV SEE I/O RECORD 10/03/20 13:45 10/04/20 00:43 Justifications for Admission Other Justification Sepsis, right lower extremity cellulitis SANDY COOLEY MD Oct 04, 2020 08:45
--- NOTE | 2020-10-04 09:05 | PDOC2 ---
CONSULT Date of Consult Date of Consult DATE: 10/04/20 TIME: 09:05 Reason for Consult Reason for Consult: ESRD Identification/Chief Complaint Chief Complaint Shortness of breath at presentation Source Source: Chart review, Patient History of Present Illness Reason for Visit: 74 year old CM who presents to the ER via EMS with generalized weakness. The patient has a history of Afib, CHF, CKD, ESRD on HD. He reports that he started feeling fatigued and weak on Sunday. He also reports that his BP was in the 80/40 range . Yesterday he felt too weak to walk and came to the ER. He reports right lower extremity erythema, bilateral lower extremity edema, abdominal distension and diarrhea. The patient denies any pain or SOB at this time. Denies any CP , No N/V. No F/C . He reports that he is unable to get fluid off at HD unit due to low BP He is on Chronic O2 - uses 2 lts prn during day and 3 lts at night. He has Dx of ALESIA but has not been using CPAP recently "it bugs me" Past Medical History Cardiovascular: AFIB, CAD, HTN, Hyperlipidemia Pulmonary: Pneumonia, Other CENTRAL NERVOUS SYSTEM: Other GI: Inflam bowel disease Heme/Onc: Cancer Psych: No pertinent hx Musculoskeletal: Osteoarthritis Rheumatologic: No pertinent hx Infectious disease: No pertinent hx Renal/: Chronic renal failure, Benign prostatic enlarg. Endocrine: Diabetes Past Surgical History Past Surgical History: Appendectomy, Cholecystectomy, CABG, Colon Resection, Other (Laminectomy) Family History Family History: Heart Disease, Hypertension Social History Quit ALCOHOL: other Drugs: None Lives: with Family Current Problem List Problem List Problems Medical Problems: (1) Cellulitis of right lower extremity Status: Acute (2) End-stage renal disease on hemodialysis Status: Acute (3) Hypotension Status: Acute Current Medications Current Medications Current Medications Sodium Chloride 1,000 ml @ 1,000 mls/hr 1X ONCE IV ; Start 10/03/20 at 07:30; Stop 10/03/20 at 07:56; Status DC Piperacillin Sod/ Tazobactam Sod 4.5 gm/Sodium Chloride 100 ml @ 200 mls/hr 1X ONCE IV Last administered on 10/03/20at 08:47; Start 10/03/20 at 07:45; Stop 10/03/20 at 08:14; Status DC Heparin Sodium (Porcine) (Heparin Sodium) 4,000 unit 1X ONCE IV Last administered on 10/03/20at 08:58; Start 10/03/20 at 08:30; Stop 10/03/20 at 08:31; Status DC Heparin Sodium/ Dextrose 250 ml @ 0 mls/hr CONT PRN IV PER PROTOCOL Last administered on 10/03/20at 09:00; Start 10/03/20 at 08:30; Stop 10/03/20 at 16:59; Status DC Heparin Sodium (Porcine) (Heparin Sodium) 2,650 unit PRN Q6HRS PRN IV FOR UFH LEVEL LESS THAN 0.2; Start 10/03/20 at 08:30; Stop 10/03/20 at 16:59; Status DC Ondansetron HCl (Zofran) 4 mg PRN Q8HRS PRN IV NAUSEA/VOMITING; Start 10/03/20 at 09:45; Stop 10/04/20 at 09:44; Status Cancel Aspirin (Ecotrin) 325 mg 1X ONCE PO Last administered on 10/03/20at 12:18; Start 10/03/20 at 09:45; Stop 10/03/20 at 09:49; Status DC Insulin Human Lispro (HumaLOG) 0-5 UNITS TIDWMEALS SQ ; Start 10/03/20 at 12:00; Stop 10/03/20 at 13:04; Status DC Dextrose (Dextrose 50%-Water Syringe) 12.5 gm PRN Q15MIN PRN IV SEE COMMENTS; Start 10/03/20 at 10:45; Stop 10/03/20 at 13:04; Status DC Atorvastatin Calcium (Lipitor) 40 mg HS PO Last administered on 10/03/20at 21:10; Start 10/03/20 at 21:00 Vitamin D (Vitamin D3) 2,000 unit DAILY PO ; Start 10/04/20 at 09:00 Gabapentin (Neurontin) 300 mg BID PO Last administered on 10/03/20at 21:10; Start 10/03/20 at 21:00 Acetaminophen/ Hydrocodone Bitart (Lortab 7.5/325) 1 tab PRN Q6HRS PRN PO MODERATE-SEVERE PAIN Last administered on 10/03/20at 14:36; Start 10/03/20 at 12:45 Pantoprazole Sodium (Protonix) 40 mg DAILYAC PO ; Start 10/04/20 at 07:30 Sennosides (Senna) 17.2 mg PRN BID PRN PO CONSTIPATION; Start 10/03/20 at 13:00 Docusate Sodium (Colace) 100 mg PRN DAILY PRN PO HARD STOOLS; Start 10/03/20 at 13:00 Ondansetron HCl (Zofran) 4 mg PRN Q6HRS PRN IVP NAUSEA/VOMITING; Start 10/03/20 at 13:00 Insulin Human Lispro (HumaLOG) 0-7 UNITS TIDWMEALS SQ ; Start 10/03/20 at 17:00 Dextrose (Dextrose 50%-Water Syringe) 12.5 gm PRN Q15MIN PRN IV SEE COMMENTS; Start 10/03/20 at 13:00 Acetaminophen (Tylenol) 650 mg PRN Q4HRS PRN PO TEMP OVER 100.4F OR MILD PAIN; Start 10/03/20 at 13:00 Vancomycin HCl (Vanco Per Pharmacy) 1 each PRN DAILY PRN MC SEE COMMENTS Last administered on 10/04/20at 08:12; Start 10/03/20 at 13:00 Piperacillin Sod/ Tazobactam Sod 3.375 gm/Sodium Chloride 50 ml @ 100 mls/hr Q6HRS IV ; Start 10/03/20 at 18:00; Stop 10/03/20 at 13:07; Status DC Morphine Sulfate (Morphine Sulfate) 1 mg PRN Q1HR PRN IV PAIN; Start 10/03/20 at 13:00 Morphine Sulfate (Morphine Sulfate) 2 mg PRN Q2HR PRN IVP SEVERE PAIN 7-10; Start 10/03/20 at 13:00; Stop 10/04/20 at 12:59 Prochlorperazine Edisylate (Compazine) 10 mg PRN Q6HRS PRN IV NAUSEA/VOMITING, 2ND CHOICE; Start 10/03/20 at 13:00 Midodrine (Proamatine) 5 mg [id number] PO Last administered on 10/03/20at 13:26; S tart 10/03/20 at 13:30; Stop 10/03/20 at 13:47; Status DC Piperacillin Sod/ Tazobactam Sod 2.25 gm/Sodium Chloride 50 ml @ 100 mls/hr Q8HRS IV Last administered on 10/04/20at 05:49; Start 10/03/20 at 14:00 Vancomycin HCl 1.5 gm/Sodium Chloride 500 ml @ 250 mls/hr 1X ONCE IV Last administered on 10/03/20at 14:04; Start 10/03/20 at 13:15; Stop 10/03/20 at 15:14; Status DC Dopamine HCl/ Dextrose 250 ml @ 19.688 mls/ hr CONT PRN IV SEE I/O RECORD Last administered on 10/04/20at 00:43; Start 10/03/20 at 13:45 Methocarbamol (Robaxin) 1,500 mg PRN Q6HRS PRN PO BACK PAIN; Start 10/03/20 at 13:45 Vancomycin HCl (Vancomycin Random Level) 1 each 1X ONCE MC ; Start 10/05/20 at 06:00; Stop 10/05/20 at 06:01 Heparin Sodium/ Dextrose 250 ml @ 0 mls/hr CONT PRN IV PER PROTOCOL; Start 10/03/20 at 17:00 Heparin Sodium (Porcine) (Heparin Sodium) 25 UNITS / KG PRN Q6HRS PRN IV FOR PTT < 40; Start 10/03/20 at 17:00; Stop 10/03/20 at 17:00; Status DC Heparin Sodium (Porcine) (Heparin Sodium) 2,500 unit PRN Q6HRS PRN IV FOR PTT < 40; Start 10/03/20 at 17:00 Sodium Chloride 1,000 ml @ 1,000 mls/hr Q1H PRN IV hypotension; Start 10/04/20 at 08:15; Stop 10/04/20 at 14:14 Diphenhydramine HCl (Benadryl) 25 mg 1X PRN PRN IV ITCHING; Start 10/04/20 at 08:15; Stop 10/05/20 at 08:14 Diphenhydramine HCl (Benadryl) 25 mg 1X PRN PRN IV ITCHING; Start 10/04/20 at 08:15; Stop 10/05/20 at 08:14 Sodium Chloride 1,000 ml @ 400 mls/hr Q2H30M PRN IV PATENCY; Start 10/04/20 at 08:15; Stop 10/04/20 at 20:14 Info (PHARMACY MONITORING -- do not chart) 1 each PRN DAILY PRN MC SEE COMMENTS; Start 10/04/20 at 08:15 Active Scripts Active Proair Hfa (Albuterol Sulfate) 8.5 Gm Hfa.aer.ad 2.5 Mg NEB PRN Q4HRS PRN Reported Eliquis (Apixaban) 5 Mg Tablet 5 Mg PO BID Gabapentin 300 Mg Capsule 300 Mg PO BID Torsemide 20 Mg Tablet 1 Tab PO BID Ferrous Sulfate 325 Mg Tablet 324 Mg PO BID Aspirin 81 Mg Tab.chew 1 Tab PO DAILY Cyanocobalamin Injection (Cyanocobalamin (Vitamin B-12)) 1,000 Mcg/1 Ml Vial 1,000 Mcg IJ QMONTH Hydrocodone-Apap 7.5-325 (Hydrocodone Bit/Acetaminophen) 1 Each Tablet 1 Tab PO PRN Q6HRS PRN Vitamin D3 (Cholecalciferol (Vitamin D3)) 1,000 Unit Tablet 2,000 Unit PO DAILY Humira (Adalimumab) 40 Mg/0.8 Ml Pen.ij.kit 1 Syr SQ Q2WKS Omeprazole 40 Mg Capsule.dr 1 Cap PO DAILY Atorvastatin Calcium 40 Mg Tablet 1 Tab PO HS Allergies Allergies: Coded Allergies: furosemide (Verified Allergy, Severe, Swelling, 04/07/19) amlodipine (Verified Allergy, Intermediate, Swelling, 04/07/19) azathioprine (Verified Allergy, Intermediate, n/v, 04/07/19) infliximab (Verified Allergy, Intermediate, rash, 04/07/19) ROS Review of System As per HPI, rest of the ROS is negative Physical Exam Physical Exam General NAD HEEN OM moist, On O2 by NC Neck supple Lungs decreased at bases, non labored CV S1S2 Abd- Distended , NT , BS + Ext LE edema Bilat ++ Neuro Grossly Normal Derm No Rash No de la paz, No CVA or SP tenderness Psych Cooperative Vital Signs Vital Signs Date Time Temp Pulse Resp B/P (MAP) Pulse Ox O2 Delivery O2 Flow Rate FiO2 10/04/20 06:00 64 15 85/58 (67) 97 Nasal Cannula 3.0 10/04/20 04:00 97.6 97.6 Assessment & Plan ESRD - on HD TTS under Dr. Lopez at [facility] , No missed treatment Dialysis today for Vol Overload ; Low BP, Currently on Dopamine , Seen during treatment , tolerating well UF 1-2 lts as tolerated ,Albumin and pressors prn Right lower extremity cellulitis- management per primary Anasarca Cardiac/ HypoAlbuminemia/ Hemodynamic instability - Cxr - Central vascular congestion. Abdominal distension- Recommend US abdomen, dw nursing Right buttock ulcers concerning for pressure ulcers Atrial fibrillation on Eliquis History of diabetes mellitus type 2 Hx of Hypertension currently Low BP Hx of CABG ALESIA- stopped using CPAP recently ,On Home O2 Anemia ALICE as indicated Labs Labs Laboratory Tests Test 10/03/20 07:35 10/03/20 08:38 10/03/20 12:26 10/03/20 15:10 White Blood Count 16.9 x10^3/uL (4.0-11.0) Red Blood Count 2.99 x10^6/uL (4.30-5.70) Hemoglobin 9.1 g/dL (13.0-17.5) Hematocrit 28.6 % (39.0-53.0) Mean Corpuscular Volume 96 fL (79-100) Mean Corpuscular Hemoglobin 31 pg (25-35) Mean Corpuscular Hemoglobin Concent 32 g/dL (31-37) Red Cell Distribution Width 16.8 % (11.5-14.5) Platelet Count 171 x10^3/uL (140-400) Neutrophils (%) (Auto) 91 % (31-73) Lymphocytes (%) (Auto) 2 % (24-48) Monocytes (%) (Auto) 7 % (0-9) Eosinophils (%) (Auto) 0 % (0-3) Basophils (%) (Auto) 0 % (0-3) Neutrophils # (Auto) 15.5 x10^3/uL (1.8-7.7) Lymphocytes # (Auto) 0.3 x10^3/uL (1.0-4.8) Monocytes # (Auto) 1.1 x10^3/uL (0.0-1.1) Eosinophils # (Auto) 0.0 x10^3/uL (0.0-0.7) Basophils # (Auto) 0.0 x10^3/uL (0.0-0.2) Segmented Neutrophils % 88 % (35-66) Band Neutrophils % 6 % (0-9) Monocytes % 6 % (0-10) Platelet Estimate Adequate (ADEQUATE) Anisocytosis Present Sodium Level 138 mmol/L (136-145) Potassium Level 3.6 mmol/L (3.5-5.1) Chloride Level 101 mmol/L (98-107) Carbon Dioxide Level 28 mmol/L (21-32) Anion Gap 9 (6-14) Blood Urea Nitrogen 34 mg/dL (8-26) Creatinine 5.0 mg/dL (0.7-1.3) Estimated GFR (Cockcroft-Gault) 11.4 BUN/Creatinine Ratio 7 (6-20) Glucose Level 95 mg/dL (70-99) Lactic Acid Level 1.7 mmol/L (0.4-2.0) Calcium Level 8.6 mg/dL (8.5-10.1) Magnesium Level 1.7 mg/dL (1.8-2.4) Total Bilirubin 1.0 mg/dL (0.2-1.0) Aspartate Amino Transf (AST/SGOT) 50 U/L (15-37) Alanine Aminotransferase (ALT/SGPT) 20 U/L (16-63) Alkaline Phosphatase 126 U/L (46-116) Creatine Kinase 665 U/L (39-308) Creatine Kinase MB (Mass) 13.7 ng/mL (0.0-3.6) Creatine Kinase MB Relative Index 2.1 % (0-4) Troponin I Quantitative 3.634 ng/mL (0.000-0.055) 5.104 ng/mL (0.000-0.055) 5.426 ng/mL (0.000-0.055) YZ-Qqx-E-Type Natriuretic Peptide > 88795 pg/mL (0-124) Total Protein 7.7 g/dL (6.4-8.2) Albumin 2.9 g/dL (3.4-5.0) Albumin/Globulin Ratio 0.6 (1.0-1.7) Prothrombin Time 24.9 SEC (11.7-14.0) Prothromb Time International Ratio 2.3 (0.8-1.1) Activated Partial Thromboplast Time 57 SEC (24-38) 136 SEC (24-38) Heparin Anti-Xa Act, Unfractionated > 1.10 IU/mL (0.30-0.70) Test 10/03/20 17:52 10/04/20 00:38 10/04/20 07:05 Glucose (Fingerstick) 97 mg/dL (70-99) Activated Partial Thromboplast Time 83 SEC (24-38) 70 SEC (24-38) White Blood Count 12.4 x10^3/uL (4.0-11.0) Red Blood Count 3.22 x10^6/uL (4.30-5.70) Hemoglobin 9.9 g/dL (13.0-17.5) Hematocrit 31.1 % (39.0-53.0) Mean Corpuscular Volume 97 fL (79-100) Mean Corpuscular Hemoglobin 31 pg (25-35) Mean Corpuscular Hemoglobin Concent 32 g/dL (31-37) Red Cell Distribution Width 16.8 % (11.5-14.5) Platelet Count 184 x10^3/uL (140-400) Neutrophils (%) (Auto) 85 % (31-73) Lymphocytes (%) (Auto) 3 % (24-48) Monocytes (%) (Auto) 8 % (0-9) Eosinophils (%) (Auto) 3 % (0-3) Basophils (%) (Auto) 0 % (0-3) Neutrophils # (Auto) 10.6 x10^3/uL (1.8-7.7) Lymphocytes # (Auto) 0.4 x10^3/uL (1.0-4.8) Monocytes # (Auto) 1.0 x10^3/uL (0.0-1.1) Eosinophils # (Auto) 0.4 x10^3/uL (0.0-0.7) Basophils # (Auto) 0.0 x10^3/uL (0.0-0.2) Sodium Level 134 mmol/L (136-145) Potassium Level 3.7 mmol/L (3.5-5.1) Chloride Level 97 mmol/L (98-107) Carbon Dioxide Level 28 mmol/L (21-32) Anion Gap 9 (6-14) Blood Urea Nitrogen 46 mg/dL (8-26) Creatinine 6.0 mg/dL (0.7-1.3) Estimated GFR (Cockcroft-Gault) 9.2 Glucose Level 107 mg/dL (70-99) Calcium Level 8.4 mg/dL (8.5-10.1) Phosphorus Level 5.1 mg/dL (2.6-4.7) Magnesium Level 1.9 mg/dL (1.8-2.4) Laboratory Tests Test 10/03/20 12:26 10/03/20 15:10 10/03/20 17:52 10/04/20 00:38 Troponin I Quantitative 5.104 ng/mL (0.000-0.055) 5.426 ng/mL (0.000-0.055) Activated Partial Thromboplast Time 136 SEC (24-38) 83 SEC (24-38) Heparin Anti-Xa Act, Unfractionated > 1.10 IU/mL (0.30-0.70) Glucose (Fingerstick) 97 mg/dL (70-99) Test 10/04/20 07:05 White Blood Count 12.4 x10^3/uL (4.0-11.0) Red Blood Count 3.22 x10^6/uL (4.30-5.70) Hemoglobin 9.9 g/dL (13.0-17.5) Hematocrit 31.1 % (39.0-53.0) Mean Corpuscular Volume 97 fL (79-100) Mean Corpuscular Hemoglobin 31 pg (25-35) Mean Corpuscular Hemoglobin Concent 32 g/dL (31-37) Red Cell Distribution Width 16.8 % (11.5-14.5) Platelet Count 184 x10^3/uL (140-400) Neutrophils (%) (Auto) 85 % (31-73) Lymphocytes (%) (Auto) 3 % (24-48) Monocytes (%) (Auto) 8 % (0-9) Eosinophils (%) (Auto) 3 % (0-3) Basophils (%) (Auto) 0 % (0-3) Neutrophils # (Auto) 10.6 x10^3/uL (1.8-7.7) Lymphocytes # (Auto) 0.4 x10^3/uL (1.0-4.8) Monocytes # (Auto) 1.0 x10^3/uL (0.0-1.1) Eosinophils # (Auto) 0.4 x10^3/uL (0.0-0.7) Basophils # (Auto) 0.0 x10^3/uL (0.0-0.2) Activated Partial Thromboplast Time 70 SEC (24-38) Sodium Level 134 mmol/L (136-145) Potassium Level 3.7 mmol/L (3.5-5.1) Chloride Level 97 mmol/L (98-107) Carbon Dioxide Level 28 mmol/L (21-32) Anion Gap 9 (6-14) Blood Urea Nitrogen 46 mg/dL (8-26) Creatinine 6.0 mg/dL (0.7-1.3) Estimated GFR (Cockcroft-Gault) 9.2 Glucose Level 107 mg/dL (70-99) Calcium Level 8.4 mg/dL (8.5-10.1) Phosphorus Level 5.1 mg/dL (2.6-4.7) Magnesium Level 1.9 mg/dL (1.8-2.4) Review All relevant outside records, renal labs, imaging studies, telemetry/EKG's were reviewed. Images Images CT cervical spine findings: There is scoliosis of the cervical spine. Normal sagittal alignment is preserved. Craniocervical and C1-2 articular relation appears preserved. The vertebral body heights are maintained. There is narrowing of several intravertebral disc spaces with osteophytic spurring. There is no marco or retrolisthesis. There is no perching of facets No prevertebral soft tissue swelling is identified. There are no fractures. No definite lymphadenopathy or masses are seen within the neck. The visualized thyroid and salivary glands appears preserved. Impression: Spondylotic changes and multilevel disc degenerative changes involving the cervical spine. No acute abnormality seen . MIMI ULX MD Oct 04, 2020 09:05
[2020-10-04] MEDS: GABAPENTIN 300 MG CAPSULE. PO SCH ×2 (09:42→21:10)
[2020-10-04] MEDS: PANTOPRAZOLE 40 MG TABLET.DR. PO SCH (09:42)
[2020-10-04] MEDS: CHOLECALCIFEROL (VITAMIN D3) 1,000 UNIT TABLET PO SCH (09:43)
[2020-10-04] MEDS ORDERED: ALBUMIN HUMAN 25% 200 ML IV ONE (10:00)
--- NOTE | 2020-10-04 10:37 | NUR ---
SS following for discharge planning. SS reviewed pt chart and discussed with pt RN. Pt is from home with spouse and is currently requiring oxygen at three liters nasal canula. Pt has home oxygen at 2-3 liters PRN. Pt on IV Zosyn and Heparin Drip. Pt on Dopamine. PT/OT ordered. ESRD. Pt has outpatient hemodialysis at [facility], ; fax [phone], Sunday, , and Sunday second shift. SS will continue to follow for discharge planning.
--- NOTE | 2020-10-04 15:41 | RAD ---
EXAM: ULTRASOUND ABDOMEN COMPLETE CLINICAL HISTORY: Abdominal distention COMPARISON: None available. TECHNIQUE: Ultrasound of the abdomen was performed. FINDINGS: The pancreas, aorta, IVC are not well-visualized due to bowel gas. The liver length measures 16.9 cm. The common bile duct measures 6 mm in transverse dimension. The gallbladder is not identified likely cholecystectomy changes. The right kidney measures 9.3 x 4.2 x 4.8 cm. The left kidney measures 9.9 x 6.1 x 5.8 cm. The spleen appears somewhat irregular measuring 13.6 cm. Moderate ascites. Partially visualized right pleural effusion. IMPRESSION: 1. Moderate ascites. 2. Splenomegaly. 3. Partially visualized right pleural effusion. Electronically signed by: Aime Carolina MD (10/04/2020 3:39 PM) [id number]
[2020-10-04] MEDS: HEPARIN 25,000UTS/250ML PREMIX 250 ML IV PRN (15:56)
--- NOTE | 2020-10-04 17:38 | CARD ---
MR#: [id number] Date of Study: 10/04/2020 Ordering Physician: CORNELL BALDERAS, Referring Physician: CORNELL BALDERAS, Tech: Andrez Palomares [facility] APPROVED REPORT EXAM: Two-dimensional and M-mode echocardiogram with Doppler and color Doppler. Other Information Quality : AverageHR: 61bpm Rhythm : NSR INDICATION Hypertension/HCVD Surgery/Intervention Status/Post Aortic Valve Replacement: Bioprosthetic CABG: RISK FACTORS Hypertension 2D DIMENSIONS Left Atrium(2D)5.1 (1.6-4.0cm)IVSd1.2 (0.7-1.1cm) Aortic Root(2D)2.6 (2.0-3.7cm)LVDd4.4 (3.9-5.9cm) LVOT Diameter1.9 (1.8-2.4cm)PWd1.2 (0.7-1.1cm) LVDs2.9 (2.5-4.0cm)FS (%) 34.2 % SV54.8 mlLVEF(%)63.4 (>50%) Aortic Valve AoV Peak Latrell.255.2cm/sAoV VTI54.5cm AO Peak GR.26.1mmHgLVOT Peak Latrell.105.1cm/s AO Mean GR.16mmHgAVA (VMAX)1.13cm2 Mitral Valve MV E Ugmgnfwg881.4cm/sMV E Peak Gr.9mmHg MV DECEL [id number] A Mvfjsdkg52.6cm/s MV E Mean Gr.3mmHgE/A Ratio6.6 Pulmonary Valve PV Peak Elscvrro89.7cm/s Tricuspid Valve TR P. Umgrwoti900ix/sTR Peak Gr.42mmHg LEFT VENTRICLE The left ventricle is normal size. There is mild concentric left ventricular hypertrophy. The left ve ntricular systolic function is low normal with an estimated ejection fraction of 50%. There is septal hypokinesis No left ventricle thrombus noted on this study. There is no ventricular septal defect vi sualized. There is no left ventricular aneurysm. There is no mass noted in the left ventricle. RIGHT VENTRICLE The right ventricle is mildly dilated. There is normal right ventricular wall thickness. Systolic fun ction is mildly reduced. ATRIA The left atrium is moderately dilated. The right atrium is moderately dilated. The interatrial septum is intact with no evidence for an atrial septal defect or patent foramen ovale as noted on 2-D or Do ppler imaging. AORTIC VALVE The aortic valve opens well. Doppler and Color Flow revealed no significant aortic regurgitation. The re is no significant aortic valvular stenosis. There is no aortic valvular vegetation. MITRAL VALVE Mitral annular calcification is mild. There is no evidence of mitral valve prolapse. There is no mitr al valve stenosis. Doppler and Color-flow revealed mild mitral regurgitation. TRICUSPID VALVE The tricuspid valve is normal in structure and function. Doppler and Color Flow revealed mild to mode rate tricuspid regurgitation. There is no tricuspid valve prolapse or vegetation. There is no tricusp id valve stenosis. PULMONIC VALVE The pulmonary valve is normal in structure and function. Trivial pulmonic regurgitation There is no p ulmonic valvular stenosis. GREAT VESSELS The aortic root is normal in size. The ascending aorta is normal in size. The pulmonary artery is nor mal. IVC is dilated with blunted inspiratory response PERICARDIAL EFFUSION Pleural effusion noted. There is no evidence of significant pericardial effusion. Critical Notification Critical Value: No <Conclusion> The left ventricle is normal size. The left ventricular systolic function is low normal with an estimated ejection fraction of 50%. There is mild septal hypokinesis There is mild concentric left ventricular hypertrophy. Doppler and Color Flow revealed no significant aortic regurgitation. There is no significant aortic valvular stenosis. Doppler and Color-flow revealed mild mitral regurgitation. Doppler and Color Flow revealed mild to moderate tricuspid regurgitation. Signed by : Cornell Balderas MD Electronically Approved : 10/04/2020 17:37:48
--- NOTE | 2020-10-04 19:06 | PDOC ---
PROGRESS NOTES Date of Service DATE: 10/04/20 TIME: 19:03 Subjective Subjective Patient seen and examined Objective Objective Vital Signs Date Time Temp Pulse Resp B/P (MAP) Pulse Ox O2 Delivery O2 Flow Rate FiO2 10/04/20 18:00 70 21 116/59 (78) 96 Nasal Cannula 3.0 10/04/20 16:00 97.6 97.6 Intake and Output 10/04/20 07:00 Intake Total 721 ml Output Total 0 ml Balance 721 ml IV Total 721 ml Output Urine Total 0 ml Physical Exam Abdomen: Normal bowel sounds Heart: Other (Irregular rhythm) General: mild distress Lungs: Other (Mildly decreased breath sounds) Assessment Assessment Problems Medical Problems: (1) Cellulitis of right lower extremity Status: Acute (2) End-stage renal disease on hemodialysis Status: Acute (3) Hypotension Status: Acute 1. Sepsis. The patient is being continued on antibiotics and pressors. He is more alert today. We will continue present treatment. 2. Elevated troponin with a peak of 5.4. History of bypass surgery in 2019. No ST elevation on EKG. echo with ejection fraction of 50% with mild mitral ve getation and mild to moderate tricuspid regurgitation. We will continue present treatments. Most consistent with demand ischemia in this setting. 3. Atrial fibrillation. Rate is under reasonable control. Continue present treatment. 4. Hyperlipidemia. Continue medications. 5. History of a CVA. 6. End-stage renal disease on hemodialysis. Followed by renal. Comment Review of Relevant I have reviewed the following items bernadine (where applicable) has been applied. Labs Laboratory Tests Test 10/03/20 07:35 10/03/20 08:38 10/03/20 12:26 10/03/20 15:10 White Blood Count 16.9 x10^3/uL (4.0-11.0) Red Blood Count 2.99 x10^6/uL (4.30-5.70) Hemoglobin 9.1 g/dL (13.0-17.5) Hematocrit 28.6 % (39.0-53.0) Mean Corpuscular Volume 96 fL (79-100) Mean Corpuscular Hemoglobin 31 pg (25-35) Mean Corpuscular Hemoglobin Concent 32 g/dL (31-37) Red Cell Distribution Width 16.8 % (11.5-14.5) Platelet Count 171 x10^3/uL (140-400) Neutrophils (%) (Auto) 91 % (31-73) Lymphocytes (%) (Auto) 2 % (24-48) Monocytes (%) (Auto) 7 % (0-9) Eosinophils (%) (Auto) 0 % (0-3) Basophils (%) (Auto) 0 % (0-3) Neutrophils # (Auto) 15.5 x10^3/uL (1.8-7.7) Lymphocytes # (Auto) 0.3 x10^3/uL (1.0-4.8) Monocytes # (Auto) 1.1 x10^3/uL (0.0-1.1) Eosinophils # (Auto) 0.0 x10^3/uL (0.0-0.7) Basophils # (Auto) 0.0 x10^3/uL (0.0-0.2) Segmented Neutrophils % 88 % (35-66) Band Neutrophils % 6 % (0-9) Monocytes % 6 % (0-10) Platelet Estimate Adequate (ADEQUATE) Anisocytosis Present Sodium Level 138 mmol/L (136-145) Potassium Level 3.6 mmol/L (3.5-5.1) Chloride Level 101 mmol/L (98-107) Carbon Dioxide Level 28 mmol/L (21-32) Anion Gap 9 (6-14) Blood Urea Nitrogen 34 mg/dL (8-26) Creatinine 5.0 mg/dL (0.7-1.3) Estimated GFR (Cockcroft-Gault) 11.4 BUN/Creatinine Ratio 7 (6-20) Glucose Level 95 mg/dL (70-99) Lactic Acid Level 1.7 mmol/L (0.4-2.0) Calcium Level 8.6 mg/dL (8.5-10.1) Magnesium Level 1.7 mg/dL (1.8-2.4) Total Bilirubin 1.0 mg/dL (0.2-1.0) Aspartate Amino Transf (AST/SGOT) 50 U/L (15-37) Alanine Aminotransferase (ALT/SGPT) 20 U/L (16-63) Alkaline Phosphatase 126 U/L (46-116) Creatine Kinase 665 U/L (39-308) Creatine Kinase MB (Mass) 13.7 ng/mL (0.0-3.6) Creatine Kinase MB Relative Index 2.1 % (0-4) Troponin I Quantitative 3.634 ng/mL (0.000-0.055) 5.104 ng/mL (0.000-0.055) 5.426 ng/mL (0.000-0.055) NF-[id number]-[id number]-Type Natriuretic Peptide > 33828 pg/mL (0-124) Total Protein 7.7 g/dL (6.4-8.2) Albumin 2.9 g/dL (3.4-5.0) Albumin/Globulin Ratio 0.6 (1.0-1.7) Prothrombin Time 24.9 SEC (11.7-14.0) Prothromb Time International Ratio 2.3 (0.8-1.1) Activated Partial Thromboplast Time 57 SEC (24-38) 136 SEC (24-38) Heparin Anti-Xa Act, Unfractionated > 1.10 IU/mL (0.30-0.70) Test 10/03/20 17:52 10/04/20 00:38 10/04/20 07:05 10/04/20 12:47 Glucose (Fingerstick) 97 mg/dL (70-99) 95 mg/dL (70-99) Activated Partial Thromboplast Time 83 SEC (24-38) 70 SEC (24-38) White Blood Count 12.4 x10^3/uL (4.0-11.0) Red Blood Count 3.22 x10^6/uL (4.30-5.70) Hemoglobin 9.9 g/dL (13.0-17.5) Hematocrit 31.1 % (39.0-53.0) Mean Corpuscular Volume 97 fL (79-100) Mean Corpuscular Hemoglobin 31 pg (25-35) Mean Corpuscular Hemoglobin Concent 32 g/dL (31-37) Red Cell Distribution Width 16.8 % (11.5-14.5) Platelet Count 184 x10^3/uL (140-400) Neutrophils (%) (Auto) 85 % (31-73) Lymphocytes (%) (Auto) 3 % (24-48) Monocytes (%) (Auto) 8 % (0-9) Eosinophils (%) (Auto) 3 % (0-3) Basophils (%) (Auto) 0 % (0-3) Neutrophils # (Auto) 10.6 x10^3/uL (1.8-7.7) Lymphocytes # (Auto) 0.4 x10^3/uL (1.0-4.8) Monocytes # (Auto) 1.0 x10^3/uL (0.0-1.1) Eosinophils # (Auto) 0.4 x10^3/uL (0.0-0.7) Basophils # (Auto) 0.0 x10^3/uL (0.0-0.2) Sodium Level 134 mmol/L (136-145) Potassium Level 3.7 mmol/L (3.5-5.1) Chloride Level 97 mmol/L (98-107) Carbon Dioxide Level 28 mmol/L (21-32) Anion Gap 9 (6-14) Blood Urea Nitrogen 46 mg/dL (8-26) Creatinine 6.0 mg/dL (0.7-1.3) Estimated GFR (Cockcroft-Gault) 9.2 Glucose Level 107 mg/dL (70-99) Calcium Level 8.4 mg/dL (8.5-10.1) Phosphorus Level 5.1 mg/dL (2.6-4.7) Magnesium Level 1.9 mg/dL (1.8-2.4) Test 10/04/20 14:20 10/04/20 17:28 Activated Partial Thromboplast Time 66 SEC (24-38) Glucose (Fingerstick) 117 mg/dL (70-99) Laboratory Tests Test 10/04/20 00:38 10/04/20 07:05 10/04/20 12:47 10/04/20 14:20 Activated Partial Thromboplast Time 83 SEC (24-38) 70 SEC (24-38) 66 SEC (24-38) White Blood Count 12.4 x10^3/uL (4.0-11.0) Red Blood Count 3.22 x10^6/uL (4.30-5.70) Hemoglobin 9.9 g/dL (13.0-17.5) Hematocrit 31.1 % (39.0-53.0) Mean Corpuscular Volume 97 fL (79-100) Mean Corpuscular Hemoglobin 31 pg (25-35) Mean Corpuscular Hemoglobin Concent 32 g/dL (31-37) Red Cell Distribution Width 16.8 % (11.5-14.5) Platelet Count 184 x10^3/uL (140-400) Neutrophils (%) (Auto) 85 % (31-73) Lymphocytes (%) (Auto) 3 % (24-48) Monocytes (%) (Auto) 8 % (0-9) Eosinophils (%) (Auto) 3 % (0-3) Basophils (%) (Auto) 0 % (0-3) Neutrophils # (Auto) 10.6 x10^3/uL (1.8-7.7) Lymphocytes # (Auto) 0.4 x10^3/uL (1.0-4.8) Monocytes # (Auto) 1.0 x10^3/uL (0.0-1.1) Eosinophils # (Auto) 0.4 x10^3/uL (0.0-0.7) Basophils # (Auto) 0.0 x10^3/uL (0.0-0.2) Sodium Level 134 mmol/L (136-145) Potassium Level 3.7 mmol/L (3.5-5.1) Chloride Level 97 mmol/L (98-107) Carbon Dioxide Level 28 mmol/L (21-32) Anion Gap 9 (6-14) Blood Urea Nitrogen 46 mg/dL (8-26) Creatinine 6.0 mg/dL (0.7-1.3) Estimated GFR (Cockcroft-Gault) 9.2 Glucose Level 107 mg/dL (70-99) Calcium Level 8.4 mg/dL (8.5-10.1) Phosphorus Level 5.1 mg/dL (2.6-4.7) Magnesium Level 1.9 mg/dL (1.8-2.4) Glucose (Fingerstick) 95 mg/dL (70-99) Test 10/04/20 17:28 Glucose (Fingerstick) 117 mg/dL (70-99) Microbiology 10/03/20 Blood Culture - Preliminary, Resulted NO GROWTH AFTER 1 DAY Medications Current Medications Sodium Chloride 1,000 ml @ 1,000 mls/hr 1X ONCE IV ; Start 10/03/20 at 07:30; Stop 10/03/20 at 07:56; Status DC Piperacillin Sod/ Tazobactam Sod 4.5 gm/Sodium Chloride 100 ml @ 200 mls/hr 1X ONCE IV Last administered on 10/03/20at 08:47; Start 10/03/20 at 07:45; Stop 10/03/20 at 08:14; Status DC Heparin Sodium (Porcine) (Heparin Sodium) 4,000 unit 1X ONCE IV Last administered on 10/03/20at 08:58; Start 10/03/20 at 08:30; Stop 10/03/20 at 08:31; Status DC Heparin Sodium/ Dextrose 250 ml @ 0 mls/hr CONT PRN IV PER PROTOCOL Last administered on 10/03/20at 09:00; Start 10/03/20 at 08:30; Stop 10/03/20 at 16:59; Status DC Heparin Sodium (Porcine) (Heparin Sodium) 2,650 unit PRN Q6HRS PRN IV FOR UFH LEVEL LESS THAN 0.2; Start 10/03/20 at 08:30; Stop 10/03/20 at 16:59; Status DC Ondansetron HCl (Zofran) 4 mg PRN Q8HRS PRN IV NAUSEA/VOMITING; Start 10/03/20 at 09:45; Stop 10/04/20 at 09:44; Status Cancel Aspirin (Ecotrin) 325 mg 1X ONCE PO Last administered on 10/03/20at 12:18; Start 10/03/20 at 09:45; Stop 10/03/20 at 09:49; Status DC Insulin Human Lispro (HumaLOG) 0-5 UNITS TIDWMEALS SQ ; Start 10/03/20 at 12:00; Stop 10/03/20 at 13:04; Status DC Dextrose (Dextrose 50%-Water Syringe) 12.5 gm PRN Q15MIN PRN IV SEE COMMENTS; Start 10/03/20 at 10:45; Stop 10/03/20 at 13:04; Status DC Atorvastatin Calcium (Lipitor) 40 mg HS PO Last administered on 10/03/20at 21:10; Start 10/03/20 at 21:00 Vitamin D (Vitamin D3) 2,000 unit DAILY PO Last administered on 10/04/20at 09:43; Start 10/04/20 at 09:00 Gabapentin (Neurontin) 300 mg BID PO Last administered on 10/04/20at 09:42; Start 10/03/20 at 21:00 Acetaminophen/ Hydrocodone Bitart (Lortab 7.5/325) 1 tab PRN Q6HRS PRN PO MODERATE-SEVERE PAIN Last administered on 10/03/20at 14:36; Start 10/03/20 at 12:45 Pantoprazole Sodium (Protonix) 40 mg DAILYAC PO Last administered on 10/04/20at 09:42; Start 10/04/20 at 07:30 Sennosides (Senna) 17.2 mg PRN BID PRN PO CONSTIPATION; Start 10/03/20 at 13:00 Docusate Sodium (Colace) 100 mg PRN DAILY PRN PO HARD STOOLS; Start 10/03/20 at 13:00 Ondansetron HCl (Zofran) 4 mg PRN Q6HRS PRN IVP NAUSEA/VOMITING; Start 10/03/20 at 13:00 Insulin Human Lispro (HumaLOG) 0-7 UNITS TIDWMEALS SQ ; Start 10/03/20 at 17:00 Dextrose (Dextrose 50%-Water Syringe) 12.5 gm PRN Q15MIN PRN IV SEE COMMENTS; Start 10/03/20 at 13:00 Acetaminophen (Tylenol) 650 mg PRN Q4HRS PRN PO TEMP OVER 100.4F OR MILD PAIN; Start 10/03/20 at 13:00 Vancomycin HCl (Vanco Per Pharmacy) 1 each PRN DAILY PRN MC SEE COMMENTS Last administered on 10/04/20at 08:12; Start 10/03/20 at 13:00 Piperacillin Sod/ Tazobactam Sod 3.375 gm/Sodium Chloride 50 ml @ 100 mls/hr Q6HRS IV ; Start 10/03/20 at 18:00; Stop 10/03/20 at 13:07; Status DC Morphine Sulfate (Morphine Sulfate) 1 mg PRN Q1HR PRN IV PAIN; Start 10/03/20 at 13:00 Morphine Sulfate (Morphine Sulfate) 2 mg PRN Q2HR PRN IVP SEVERE PAIN 7-10; Start 10/03/20 at 13:00; Stop 10/04/20 at 12:59; Status DC Prochlorperazine Edisylate (Compazine) 10 mg PRN Q6HRS PRN IV NAUSEA/VOMITING, 2ND CHOICE; Start 10/03/20 at 13:00 Midodrine (Proamatine) 5 mg [id number] PO Last administered on 10/03/20at 13:26; Start 10/03/20 at 13:30; Stop 10/03/20 at 13:47; Status DC Piperacillin Sod/ Tazobactam Sod 2.25 gm/Sodium Chloride 50 ml @ 100 mls/hr Q8HRS IV Last administered on 10/04/20at 13:53; Start 10/03/20 at 14:00 Vancomycin HCl 1.5 gm/Sodium Chloride 500 ml @ 250 mls/hr 1X ONCE IV Last administered on 10/03/20at 14:04; Start 10/03/20 at 13:15; Stop 10/03/20 at 15:14; Status DC Dopamine HCl/ Dextrose 250 ml @ 19.688 mls/ hr CONT PRN IV SEE I/O RECORD Last administered on 10/04/20at 10:58; Start 10/03/20 at 13:45 Methocarbamol (Robaxin) 1,500 mg PRN Q6HRS PRN PO BACK PAIN; Start 10/03/20 at 13:45 Vancomycin HCl (Vancomycin Random Level) 1 each 1X ONCE MC ; Start 10/05/20 at 06:00; Stop 10/05/20 at 06:01 Heparin Sodium/ Dextrose 250 ml @ 0 mls/hr CONT PRN IV PER PROTOCOL Last administered on 10/04/20at 15:56; Start 10/03/20 at 17:00 Heparin Sodium (Porcine) (Heparin Sodium) 25 UNITS / KG PRN Q6HRS PRN IV FOR PTT < 40; Start 10/03/20 at 17:00; Stop 10/03/20 at 17:00; Status DC Heparin Sodium (Porcine) (Heparin Sodium) 2,500 unit PRN Q6HRS PRN IV FOR PTT < 40; Start 10/03/20 at 17:00 Sodium Chloride 1,000 ml @ 1,000 mls/hr Q1H PRN IV hypotension; Start 10/04/20 at 08:15; Stop 10/04/20 at 14:14; Status DC Diphenhydramine HCl (Benadryl) 25 mg 1X PRN PRN IV ITCHING; Start 10/04/20 at 08:15; Stop 10/05/20 at 08:14 Diphenhydramine HCl (Benadryl) 25 mg 1X PRN PRN IV ITCHING; Start 10/04/20 at 08:15; Stop 10/05/20 at 08:14 Sodium Chloride 1,000 ml @ 400 mls/hr Q2H30M PRN IV PATENCY; Start 10/04/20 at 08:15; Stop 10/04/20 at 20:14 Info (PHARMACY MONITORING -- do not chart) 1 each PRN DAILY PRN MC SEE COMMENTS; Start 10/04/20 at 08:15 Albumin Human 200 ml @ 200 mls/hr 1X ONCE IV Last administered on 10/04/20at 09:56; Start 10/04/20 at 10:00; Stop 10/04/20 at 10:59; Status DC Darbepoetin Dariel (ARANESP for DIALYSIS PTS) 60 mcg Mo SQ ; Start 10/05/20 at 21:00 Active Scripts Active Proair Hfa (Albuterol Sulfate) 8.5 Gm Hfa.aer.ad 2.5 Mg NEB PRN Q4HRS PRN Reported Eliquis (Apixaban) 5 Mg Tablet 5 Mg PO BID Gabapentin 300 Mg Capsule 300 Mg PO BID Torsemide 20 Mg Tablet 1 Tab PO BID Ferrous Sulfate 325 Mg Tablet 324 Mg PO BID Aspirin 81 Mg Tab.chew 1 Tab PO DAILY Cyanocobalamin Injection (Cyanocobalamin (Vitamin B-12)) 1,000 Mcg/1 Ml Vial 1,000 Mcg IJ QMONTH Hydrocodone-Apap 7.5-325 (Hydrocodone Bit/Acetaminophen) 1 Each Tablet 1 Tab PO PRN Q6HRS PRN Vitamin D3 (Cholecalciferol (Vitamin D3)) 1,000 Unit Tablet 2,000 Unit PO DAILY Humira (Adalimumab) 40 Mg/0.8 Ml Pen.ij.kit 1 Syr SQ Q2WKS Omeprazole 40 Mg Capsule.dr 1 Cap PO DAILY Atorvastatin Calcium 40 Mg Tablet 1 Tab PO HS Vitals/I & O Vital Sign - Last 24 Hours 10/03/20 10/03/20 10/03/20 10/03/20 20:00 20:00 20:15 21:00 Temp 98.0 98.0 Pulse 63 59 61 Resp 14 19 12 B/P (MAP) 84/44 (57) 99/42 (61) 91/56 (68) Pulse Ox 96 96 97 O2 Delivery Nasal Cannula Nasal Cannula Nasal Cannula Nasal Cannula O2 Flow Rate 3.0 3.0 3.0 3.0 10/03/20 10/03/20 10/03/20 10/03/20 22:00 22:15 22:30 23:00 Pulse 68 57 67 63 Resp 10 10 10 10 B/P (MAP) 97/52 (67) 71/48 (56) 88/51 (63) 84/55 (65) Pulse Ox 97 96 96 97 O2 Delivery Nasal Cannula Nasal Cannula Nasal Cannula Nasal Cannula O2 Flow Rate 3.0 3.0 3.0 3.0 10/04/20 10/04/20 10/04/20 10/04/20 00:00 00:00 01:00 02:00 Temp 97.9 97.9 Pulse 67 66 65 Resp 11 11 11 B/P (MAP) 96/40 (58) 95/51 (66) 100/54 (69) Pulse Ox 96 97 95 O2 Delivery Nasal Cannula Nasal Cannula Nasal Cannula Nasal Cannula O2 Flow Rate 3.0 3.0 3.0 3.0 10/04/20 10/04/20 10/04/20 10/04/20 03:00 04:00 04:00 05:00 Temp 97.6 97.6 Pulse 69 68 66 Resp 11 10 17 B/P (MAP) 94/52 (66) 94/53 (67) 103/55 (71) Pulse Ox 96 93 96 O2 Delivery Nasal Cannula Nasal Cannula Nasal Cannula Nasal Cannula O2 Flow Rate 3.0 3.0 3.0 3.0 10/04/20 10/04/20 10/04/20 10/04/20 05:45 06:00 07:00 08:00 Temp 97.7 97.7 Pulse 75 64 64 66 Resp 21 15 15 17 B/P (MAP) 106/63 (77) 85/58 (67) 86/48 (61) 84/57 (66) Pulse Ox 98 97 96 95 O2 Delivery Nasal Cannula Nasal Cannula Nasal Cannula Nasal Cannula O2 Flow Rate 3.0 3.0 3.0 3.0 10/04/20 10/04/20 10/04/20 10/04/20 08:00 09:00 10:00 11:00 Pulse 64 64 68 Resp 18 17 16 B/P (MAP) 85/33 (50) 95/56 (69) 106/53 (70) Pulse Ox 95 98 97 O2 Delivery Nasal Cannula Nasal Cannula Nasal Cannula Nasal Cannula O2 Flow Rate 3.0 3.0 3.0 3.0 10/04/20 10/04/20 10/04/20 10/04/20 12:00 12:00 13:00 14:00 Temp 97.5 97.5 Pulse 66 65 66 Resp 14 14 16 B/P (MAP) 120/53 (75) 132/65 (87) 117/59 (78) Pulse Ox 100 97 96 O2 Delivery Nasal Cannula Nasal Cannula Nasal Cannula Nasal Cannula O2 Flow Rate 3.0 3.0 3.0 3.0 10/04/20 10/04/20 10/04/20 10/04/20 15:00 16:00 16:00 17:00 Temp 97.6 97.6 Pulse 64 64 64 Resp 18 16 16 B/P (MAP) 124/60 (81) 116/58 (77) 112/59 (76) Pulse Ox 96 95 97 O2 Delivery Nasal Cannula Nasal Cannula Nasal Cannula Nasal Cannula O2 Flow Rate 3.0 3.0 3.0 3.0 10/04/20 18:00 Pulse 70 Resp 21 B/P (MAP) 116/59 (78) Pulse Ox 96 O2 Delivery Nasal Cannula O2 Flow Rate 3.0 Intake and Output 10/03/20 10/03/20 10/04/20 15:00 23:00 07:00 Intake Total 50 ml 671 ml Output Total 0 ml 0 ml Balance 50 ml 671 ml Justifications for Admission Other Justification Sepsis, right lower extremity cellulitis VELVET BAZAN MD Oct 04, 2020 19:06
[2020-10-04] MEDS: ATORVASTATIN CALCIUM 40 MG TABLET. PO SCH (21:10)
[2020-10-05] VITALS (24 sets, daily range): BP systolic 79–116; BP diastolic 38–75
[2020-10-05] MEDS: PIPERACILLIN/TAZOBACTAM 2.25 GM in IV NORMAL SALINE 50ML 50 ML IV SCH ×3 (05:36→22:22)
[2020-10-05] MEDS ORDERED: VANCOMYCIN RANDOM LEVEL. MC ONE (06:00)
[2020-10-05 07:48] LABS: BASO # 0.1 x10^3/uL (0.0-0.2); BASO % 1 % (0-3); EOS # 0.5 x10^3/uL (0.0-0.7); EOS % 8 % (0-3); HEMATOCRIT 29.3 % (39.0-53.0); HEMOGLOBIN 9.4 g/dL (13.0-17.5); LYMPH # 0.3 x10^3/uL (1.0-4.8); LYMPH % 5 % (24-48); MEAN CORPUSCULAR HEMOGLOBIN 31 pg (25-35); MEAN CORPUSCULAR HGB CONC 32 g/dL (31-37); MEAN CORPUSCULAR VOLUME 97 fL (79-100); MONO # 0.6 x10^3/uL (0.0-1.1); MONO % 9 % (0-9); NEUT # 5.1 x10^3/uL (1.8-7.7); NEUT % 77 % (31-73); PLATELET COUNT 162 x10^3/uL (140-400); RED BLOOD COUNT 3.02 x10^6/uL (4.30-5.70); RED CELL DISTRIBUTION WIDTH 16.6 % (11.5-14.5); WHITE BLOOD COUNT 6.7 x10^3/uL (4.0-11.0)
[2020-10-05] MEDS: INSULIN LISPRO 300 UNITS/3 ML VIAL. SQ SCH ×3 (08:00→17:00)
[2020-10-05 08:16] LABS: CALCIUM 8.2 mg/dL (8.5-10.1); GFR 11.4; POTASSIUM 3.6 mmol/L (3.5-5.1)
--- NOTE | 2020-10-05 08:27 | PDOC ---
[facility] PROGRESS NOTE Date of Service DOS: DATE: 10/05/20 TIME: 08:24 Chief Complaint Chief Complaint Sepsis Hemodynamic instability Right lower extremity cellulitis Acute volume overload Elevated troponins, likely type II demand ischemia, possible NSTEMI Anasarca Acute electrolyte derangement due to ESRD Right buttock ulcers concerning for pressure ulcers Concern for caregiver burden ESRD TTS Atrial fibrillation on Eliquis History of diabetes mellitus type 2 Dyslipidemia Hypertension CABG ALESIA Anemia due to ESRD Obesity class I Admit to telemetry with hospitalist to manage Cardiology consult for non-STEMI Nephrology consult for hemodialysis We will likely start p.o. vasopressor midodrine in the meantime if there is no response, will likely need to start vasopressor or remove more fluid Continue empiric IV antibiotics Pending blood cultures Strict I's and O's Avoid nephrotoxic agents Heparin drip for DVT prophylaxis Protonix GI prophylaxis ADA diet Full code Discussed with RN and SW Disposition patient management as above Surrogate decision maker is History of Present Illness History of Present Illness 74 year old male who presents to the ER via EMS with generalized weakness. The patient has a history of Afib, CHF, CKD, and currently receives dialysis. The patient reports that he started feeling fatigued and weak yesterday. He also reports that his BP was in the 80/40 range yesterday. This morning the patient felt too weak to walk which is what brought him to the ER. He reports right lower extremity erythema, bilateral lower extremity edema, abdominal edema, and diarrhea. The patient denies any pain or SOB at this time. 10/05/2020: Patient seen in ICU, remains on vasopressors. Afebrile, breathing 3 L nasal cannula. Per cardiology, elevated troponins likely due to demand ischemia in this clinical setting. We will continue current treatment, Zosyn and vancomycin. Continue supportive care. Spoke with patient's by phone and addressed her concerns. Critical care time 30 minutes spent reviewing charts, reviewing labs, reviewing imaging, discussion with RN. 10/04/2020: Patient seen in ICU, afebrile. Currently breathing on 3 L nasal cannula and requiring vasopressors. Has no complaints today. Admits to some chronic diarrhea secondary to his history of Crohn's disease. Continue treatment cellulitis with Zosyn and vancomycin. Denies any sick contacts at home. Critical care time 30 minutes spent reviewing charts, reviewing labs, reviewing imaging, discussion with RN. Vitals/I&O Vitals/I&O: Vital Signs Date Time Temp Pulse Resp B/P (MAP) Pulse Ox O2 Delivery O2 Flow Rate FiO2 10/05/20 06:00 58 11 87/46 (60) 99 Nasal Cannula 3.0 10/05/20 04:00 98.1 98.1 I & O 10/04/20 10/04/20 10/05/20 15:00 23:00 07:00 Intake Total 300 ml 832 ml 762 ml Output Total 0 ml 0 ml 0 ml Balance 300 ml 832 ml 762 ml Physical Exam General: Alert, Oriented X3, Cooperative, No acute distress, mild distress Heart: Other (Irregular rhythm) Lungs: Clear Abdomen: Normal bowel sounds Extremities: No clubbing, No cyanosis Skin: Other (Bilateral lower extremity erythema, right greater than left.) Labs Labs: Laboratory Tests Test 10/04/20 12:47 10/04/20 14:20 10/04/20 17:28 10/04/20 18:10 Glucose (Fingerstick) 95 mg/dL (70-99) 117 mg/dL (70-99) Activated Partial Thromboplast Time 66 SEC (24-38) 58 SEC (24-38) Test 10/05/20 00:20 10/05/20 07:30 Activated Partial Thromboplast Time 67 SEC (24-38) 70 SEC (24-38) White Blood Count 6.7 x10^3/uL (4.0-11.0) Red Blood Count 3.02 x10^6/uL (4.30-5.70) Hemoglobin 9.4 g/dL (13.0-17.5) Hematocrit 29.3 % (39.0-53.0) Mean Corpuscular Volume 97 fL (79-100) Mean Corpuscular Hemoglobin 31 pg (25-35) Mean Corpuscular Hemoglobin Concent 32 g/dL (31-37) Red Cell Distribution Width 16.6 % (11.5-14.5) Platelet Count 162 x10^3/uL (140-400) Neutrophils (%) (Auto) 77 % (31-73) Lymphocytes (%) (Auto) 5 % (24-48) Monocytes (%) (Auto) 9 % (0-9) Eosinophils (%) (Auto) 8 % (0-3) Basophils (%) (Auto) 1 % (0-3) Neutrophils # (Auto) 5.1 x10^3/uL (1.8-7.7) Lymphocytes # (Auto) 0.3 x10^3/uL (1.0-4.8) Monocytes # (Auto) 0.6 x10^3/uL (0.0-1.1) Eosinophils # (Auto) 0.5 x10^3/uL (0.0-0.7) Basophils # (Auto) 0.1 x10^3/uL (0.0-0.2) Sodium Level 136 mmol/L (136-145) Potassium Level 3.6 mmol/L (3.5-5.1) Chloride Level 100 mmol/L (98-107) Carbon Dioxide Level 31 mmol/L (21-32) Anion Gap 5 (6-14) Blood Urea Nitrogen 42 mg/dL (8-26) Creatinine 5.0 mg/dL (0.7-1.3) Estimated GFR (Cockcroft-Gault) 11.4 Glucose Level 97 mg/dL (70-99) Calcium Level 8.2 mg/dL (8.5-10.1) Assessment and Plan Assessmemt and Plan Problems Medical Problems: (1) Cellulitis of right lower extremity Status: Acute (2) End-stage renal disease on hemodialysis Status: Acute (3) Hypotension Status: Acute Comment Review of Relevant I have reviewed the following items bernadine (where applicable) has been applied. Medications: Current Medications Medications (Trade) Dose Ordered Sig/Jose Route PRN Reason Start Time Stop Time Status Last Admin Dose Admin Vitamin D (Vitamin D3) 2,000 unit DAILY PO 10/04/20 09:00 10/04/20 09:43 Albumin Human 200 ml @ 200 mls/hr 1X ONCE IV 10/04/20 10:00 10/04/20 10:59 DC 10/04/20 09:56 Justifications for Admission Other Justification Sepsis, right lower extremity cellulitis SANDY COOLEY MD Oct 05, 2020 08:27
[2020-10-05] MEDS ORDERED: DIALYSIS PATIENT. MC PRN ×2 (08:30)
[2020-10-05] MEDS ORDERED: ALBUMIN HUMAN 25% 200 ML IV PRN (08:30)
[2020-10-05] MEDS ORDERED: IV NORMAL SALINE 1000ML BAG 1,000 ML IV PRN ×2 (08:30)
[2020-10-05] MEDS: PANTOPRAZOLE 40 MG TABLET.DR. PO SCH (08:40)
[2020-10-05] MEDS: CHOLECALCIFEROL (VITAMIN D3) 1,000 UNIT TABLET PO SCH (08:40)
[2020-10-05] MEDS: GABAPENTIN 300 MG CAPSULE. PO SCH ×2 (08:40→21:08)
[2020-10-05] MEDS: VANCOMYCIN PER PHARMACY MC PRN (08:54)
--- NOTE | 2020-10-05 09:27 | PDOC ---
DATE OF SERVICE DATE: 10/05/20 TIME: 09:26 SUBJECTIVE ROS Stable OBJECTIVE Vital Signs Vital Signs Date Time Temp Pulse Resp B/P (MAP) Pulse Ox O2 Delivery O2 Flow Rate FiO2 10/05/20 09:00 59 14 101/45 (63) 100 Nasal Cannula 3.0 10/05/20 08:00 97.5 97.5 I & 0 Intake and Output 10/05/20 07:00 Intake Total 1894 ml Output Total 0 ml Balance 1894 ml Intake Oral 690 ml IV Total 1204 ml Output Urine Total 0 ml PHYSICAL EXAM Physical Exam General NAD HEEN OM moist, On O2 by NC Neck supple Lungs decreased at bases, non labored CV S1S2 Abd- Distended , NT , BS + Ext LE edema Bilat ++ Neuro Grossly Normal Derm No Rash No de la paz, No CVA or SP tenderness Psych Cooperative Vital Signs DIAGNOSIS/ASSESSMENT Assessment & Plan ESRD - on HD TTS under Dr. Lopez at [facility], Dialysis today, discussed treatment plan with Penny Right lower extremity cellulitis- management per primary Anasarca Cardiac/ HypoAlbuminemia/ Hemodynamic instability - Cxr - Central vascular congestion. Abdominal distension-US abdomen- Moderate ascites. Probably Paracentesis - defer to Primary Right pleural effusion Right buttock ulcers concerning for pressure ulcers Atrial fibrillation on Eliquis History of diabetes mellitus type 2 Hx of Hypertension currently Low BP Hx of CABG ALESIA- stopped using CPAP recently ,On Home O2 Anemia ALICE as indicated COMMENT/RELEVANT DATA Meds Current Medications Medications (Trade) Dose Ordered Sig/Jose Start Time Stop Time Status Last Admin Dose Admin Acetaminophen (Tylenol) 650 mg PRN Q4HRS PRN 10/03/20 13:00 Acetaminophen/ Hydrocodone Bitart (Lortab 7.5/325) 1 tab PRN Q6HRS PRN 10/03/20 12:45 10/03/20 14:36 1 TAB Albumin Human 200 ml @ 200 mls/hr 1X PRN PRN 10/05/20 08:30 10/05/20 14:29 Aspirin (Ecotrin) 325 mg 1X ONCE 10/03/20 09:45 10/03/20 09:49 DC 10/03/20 12:18 325 MG Atorvastatin Calcium (Lipitor) 40 mg HS 10/03/20 21:00 10/04/20 21:10 40 MG Darbepoetin Dariel (ARANESP for DIALYSIS PTS) 60 mcg Mo 10/05/20 21:00 Dextrose (Dextrose 50%-Water Syringe) 12.5 gm PRN Q15MIN PRN 10/03/20 13:00 Diphenhydramine HCl (Benadryl) 25 mg 1X PRN PRN 10/04/20 08:15 10/05/20 08:14 DC Docusate Sodium (Colace) 100 mg PRN DAILY PRN 10/03/20 13:00 Dopamine HCl/ Dextrose 250 ml @ 19.688 mls/ hr CONT PRN 10/03/20 13:45 10/04/20 21:11 19.688 MLS/HR Gabapentin (Neurontin) 300 mg BID 10/03/20 21:00 10/05/20 08:40 300 MG Heparin Sodium (Porcine) (Heparin Sodium) 2,500 unit PRN Q6HRS PRN 10/03/20 17:00 Heparin Sodium/ Dextrose 250 ml @ 0 mls/hr CONT PRN 10/03/20 17:00 10/04/20 15:56 8 MLS/HR Info (PHARMACY MONITORING -- do not chart) 1 each PRN DAILY PRN 10/05/20 08:30 Insulin Human Lispro (HumaLOG) 0-7 UNITS TIDWMEALS 10/03/20 17:00 Methocarbamol (Robaxin) 1,500 mg PRN Q6HRS PRN 10/03/20 13:45 Midodrine (Proamatine) 5 mg QWW079 10/03/20 13:30 10/03/20 13:47 DC 10/03/20 13:26 5 MG Morphine Sulfate (Morphine Sulfate) 2 mg PRN Q2HR PRN 10/03/20 13:00 10/04/20 12:59 DC Ondansetron HCl (Zofran) 4 mg PRN Q6HRS PRN 10/03/20 13:00 Pantoprazole Sodium (Protonix) 40 mg DAILYAC 10/04/20 07:30 10/05/20 08:40 40 MG Piperacillin Sod/ Tazobactam Sod 2.25 gm/Sodium Chloride 50 ml @ 100 mls/hr Q8HRS 10/03/20 14:00 10/05/20 05:36 100 MLS/HR Piperacillin Sod/ Tazobactam Sod 3.375 gm/Sodium Chloride 50 ml @ 100 mls/hr Q6HRS 10/03/20 18:00 10/03/20 13:07 DC Piperacillin Sod/ Tazobactam Sod 4.5 gm/Sodium Chloride 100 ml @ 200 mls/hr 1X ONCE 10/03/20 07:45 10/03/20 08:14 DC 10/03/20 08:47 200 MLS/HR Prochlorperazine Edisylate (Compazine) 10 mg PRN Q6HRS PRN 10/03/20 13:00 Sennosides (Senna) 17.2 mg PRN BID PRN 10/03/20 13:00 Sodium Chloride 1,000 ml @ 400 mls/hr Q2H30M PRN 10/05/20 08:30 10/05/20 20:29 Vancomycin HCl (Vanco Per Pharmacy) 1 each PRN DAILY PRN 10/03/20 13:00 10/05/20 08:54 1 EACH Vancomycin HCl (Vancomycin Random Level) 1 each 1X ONCE 10/05/20 06:00 10/05/20 06:01 DC 10/05/20 06:00 1 EACH Vancomycin HCl 1.5 gm/Sodium Chloride 500 ml @ 250 mls/hr 1X ONCE 10/03/20 13:15 10/03/20 15:14 DC 10/03/20 14:04 250 MLS/HR Vancomycin HCl 500 mg/Sodium Chloride 100 ml @ 100 mls/hr QTUTHSA 10/05/20 16:00 Vitamin D (Vitamin D3) 2,000 unit DAILY 10/04/20 09:00 10/05/20 08:40 2,000 UNIT Lab Laboratory Tests Test 10/04/20 12:47 10/04/20 14:20 10/04/20 17:28 10/04/20 18:10 Glucose (Fingerstick) 95 mg/dL (70-99) 117 mg/dL (70-99) Activated Partial Thromboplast Time 66 SEC (24-38) 58 SEC (24-38) Test 10/05/20 00:20 10/05/20 07:30 Activated Partial Thromboplast Time 67 SEC (24-38) 70 SEC (24-38) White Blood Count 6.7 x10^3/uL (4.0-11.0) Red Blood Count 3.02 x10^6/uL (4.30-5.70) Hemoglobin 9.4 g/dL (13.0-17.5) Hematocrit 29.3 % (39.0-53.0) Mean Corpuscular Volume 97 fL (79-100) Mean Corpuscular Hemoglobin 31 pg (25-35) Mean Corpuscular Hemoglobin Concent 32 g/dL (31-37) Red Cell Distribution Width 16.6 % (11.5-14.5) Platelet Count 162 x10^3/uL (140-400) Neutrophils (%) (Auto) 77 % (31-73) Lymphocytes (%) (Auto) 5 % (24-48) Monocytes (%) (Auto) 9 % (0-9) Eosinophils (%) (Auto) 8 % (0-3) Basophils (%) (Auto) 1 % (0-3) Neutrophils # (Auto) 5.1 x10^3/uL (1.8-7.7) Lymphocytes # (Auto) 0.3 x10^3/uL (1.0-4.8) Monocytes # (Auto) 0.6 x10^3/uL (0.0-1.1) Eosinophils # (Auto) 0.5 x10^3/uL (0.0-0.7) Basophils # (Auto) 0.1 x10^3/uL (0.0-0.2) Sodium Level 136 mmol/L (136-145) Potassium Level 3.6 mmol/L (3.5-5.1) Chloride Level 100 mmol/L (98-107) Carbon Dioxide Level 31 mmol/L (21-32) Anion Gap 5 (6-14) Blood Urea Nitrogen 42 mg/dL (8-26) Creatinine 5.0 mg/dL (0.7-1.3) Estimated GFR (Cockcroft-Gault) 11.4 Glucose Level 97 mg/dL (70-99) Calcium Level 8.2 mg/dL (8.5-10.1) Random Vancomycin Level 8.3 mcg/mL Results All relevant outside records, renal labs, imaging studies, telemetry/EKG's were reviewed. Justicifation of Admission Dx: Justifications for Admission: Justification of Admission Dx: N/A MIMI LUX MD Oct 05, 2020 09:27
--- NOTE | 2020-10-05 16:23 | NUR ---
SS following up with discharge planning. SS reviewed pt chart and discussed with pt RN. Pt is currently requiring oxygen at three liters nasal canula. Pt has home oxygen. Pt on IV Zosyn. Hemodialysis today. PT/OT ordered. PT recommended shelter unit. SS met with pt to discuss discharge planning and shelter unit. Pt declining shelter unit at this time stating that he will return to home and [facility]. SS will continue to follow for discharge planning.
--- NOTE | 2020-10-05 16:47 | PDOC2 ---
GI CONSULT Date of Service: DATE: 10/05/20 TIME: 16:24 Reason For Consult: new diagnosis of cirrhosis with ascites HPI: HPI: 74 y/o male admitted 10/03. [place] weak, slid off a chair at home. The day before, had chills after dialysis. Possible staph bacteremia, also elevated troponin - demand ischemia likely per cardiology, remains on Heparin. Also some hypotension. US done for abdominal distention which is not a new issue per pt or at least not a drastic change. US showed moderate ascites, splenomegaly, and right pleural effusion. Not much description of liver, CBD 6mm. We are asked to see due to concern for cirrhosis w/ new ascites. Normal plt, bili, and ALT. AST 50, Alk Phos 126. INR 2.3, A/G ration 0.6. H/o CAD, AVR, and A Fib on Eliquis and ASA at home. H/o heavy alcohol use - less for 2-3 years. Hep A in 07/2017 (B & C negative then). Additional h/o DM and ESRD on HD (Started in 06/2020). Denies dysphagia, n/v, abd pain, diarrhea, constipation, hematochezia, melena, or change in appetite. Weight fluctuates w/ HD. H/o GERD on omeprazole. H/o Crohn's on Humira (last dose 09/29) w/ good response - past use of Remicade and Imuran not tolerated. S/p small and large bowel resections in 2002 @ [facility]. Last EGD ~5 years ago or so. Colonoscopy in 09/[address] Fisher - per past encounter this showed normal random colon biopsies and adenomatous polyp. S/p cholecystectomy. H/o anemia - took PO iron replacement in the past, now gets Venofer at dialysis. Past bone marrow biopsy w/o primary bone marrow disorder. Had EUS @ [facility] in [address] w/ adenopathy and enlarged lymph node just superior to pancreatic head and the celiac axis region - per past encounter he reported normal results. Diverticulosis noted on past imaging. PMH: PMH: CHF, CAD, HTN, HLD, A Fib, CVA, ALESIA, DM, CKD on HD, BPH, OA, Crohn's, SBO, GERD lumbar fracture/biopsy/fusion, bone marrow biopsy (negative for primary disorder), SB/right colon resection (appendectomy), cholecystectomy, thoracentesis, angioplasty, CABG, AVR FH: Family History: Other (alcoholic cirrhosis) Social History: Smoke: Quit (cigars) ALCOHOL: other (heavy in the past - less now) Drugs: None ROS: GEN: +chills HEENT: Denies blurred vision, sore throat CV: Denies chest pain RESP: Denies shortness of air, cough GI: Per HPI : Denies hematuria, dysuria ENDO: +fluctuating weight NEURO: Denies confusion, dizziness MSK: +weakness SKIN: Denies jaundice, pruritus Vitals: Vitals: Vital Signs Date Time Temp Pulse Resp B/P (MAP) Pulse Ox O2 Delivery O2 Flow Rate FiO2 10/05/20 14:00 56 18 86/52 (63) 100 Nasal Cannula 3.0 10/05/20 12:00 97.6 97.6 Labs: Labs: Laboratory Tests Test 10/04/20 17:28 10/04/20 18:10 10/05/20 00:20 10/05/20 07:30 Glucose (Fingerstick) 117 mg/dL (70-99) Activated Partial Thromboplast Time 58 SEC (24-38) 67 SEC (24-38) 70 SEC (24-38) White Blood Count 6.7 x10^3/uL (4.0-11.0) Red Blood Count 3.02 x10^6/uL (4.30-5.70) Hemoglobin 9.4 g/dL (13.0-17.5) Hematocrit 29.3 % (39.0-53.0) Mean Corpuscular Volume 97 fL (79-100) Mean Corpuscular Hemoglobin 31 pg (25-35) Mean Corpuscular Hemoglobin Concent 32 g/dL (31-37) Red Cell Distribution Width 16.6 % (11.5-14.5) Platelet Count 162 x10^3/uL (140-400) Neutrophils (%) (Auto) 77 % (31-73) Lymphocytes (%) (Auto) 5 % (24-48) Monocytes (%) (Auto) 9 % (0-9) Eosinophils (%) (Auto) 8 % (0-3) Basophils (%) (Auto) 1 % (0-3) Neutrophils # (Auto) 5.1 x10^3/uL (1.8-7.7) Lymphocytes # (Auto) 0.3 x10^3/uL (1.0-4.8) Monocytes # (Auto) 0.6 x10^3/uL (0.0-1.1) Eosinophils # (Auto) 0.5 x10^3/uL (0.0-0.7) Basophils # (Auto) 0.1 x10^3/uL (0.0-0.2) Sodium Level 136 mmol/L (136-145) Potassium Level 3.6 mmol/L (3.5-5.1) Chloride Level 100 mmol/L (98-107) Carbon Dioxide Level 31 mmol/L (21-32) Anion Gap 5 (6-14) Blood Urea Nitrogen 42 mg/dL (8-26) Creatinine 5.0 mg/dL (0.7-1.3) Estimated GFR (Cockcroft-Gault) 11.4 Glucose Level 97 mg/dL (70-99) Calcium Level 8.2 mg/dL (8.5-10.1) Random Vancomycin Level 8.3 mcg/mL Test 10/05/20 14:05 Activated Partial Thromboplast Time 85 SEC (24-38) BLOOD CULTURE Final GRAM POSITIVE COCCI IN CLUSTERS, SUGGESTIVE OF STAPH, Allergies: Coded Allergies: furosemide (Verified Allergy, Severe, Swelling, 04/07/19) amlodipine (Verified Allergy, Intermediate, Swelling, 04/07/19) azathioprine (Verified Allergy, Intermediate, n/v, 04/07/19) infliximab (Verified Allergy, Intermediate, rash, 04/07/19) Medications: Current Medications Medications (Trade) Dose Ordered Sig/Jose Route PRN Reason Start Time Stop Time Status Last Admin Dose Admin Vancomycin HCl (Vancomycin Random Level) 1 each 1X ONCE MC 10/05/20 06:00 10/05/20 06:01 DC 10/05/20 06:00 Albumin Human 200 ml @ 200 mls/hr 1X PRN PRN IV Hypotension 10/05/20 08:30 10/05/20 14:29 DC 10/05/20 14:22 Imaging: Imaging: Abd US FINDINGS: The pancreas, aorta, IVC are not well-visualized due to bowel gas. The liver length measures 16.9 cm. The common bile duct measures 6 mm in transverse dimension. The gallbladder is not identified likely cholecystectomy changes. The right kidney measures 9.3 x 4.2 x 4.8 cm. The left kidney measures 9.9 x 6.1 x 5.8 cm. The spleen appears somewhat irregular measuring 13.6 cm. Moderate ascites. Partially visualized right pleural effusion. IMPRESSION: 1. Moderate ascites. 2. Splenomegaly. 3. Partially visualized right pleural effusion. LE US IMPRESSION: 1. No deep venous thrombosis throughout the right lower extremity. 2. Diffusely edematous and thickened subcutaneous tissues. Differentiation between bland edema and cellulitis would be better made clinically. 3. Avascular fluid collection within the popliteal fossa most typical of a Mccauley's cyst. Head/C-spine CT Impression: 1. No acute intracranial process detected. Impression: Spondylotic changes and multilevel disc degenerative changes involving the cervical spine. No acute abnormality seen . CXR Mild cardiomegaly. Central vascular congestion. Previous median sternotomy. There is a left right-sided dialysis-type catheter. No focal infiltrates, effusion or pneumothorax is seen. Bones are normal. Echo <Conclusion> The left ventricle is normal size. The left ventricular systolic function is low normal with an estimated ejection fraction of 50%. There is mild septal hypokinesis There is mild concentric left ventricular hypertrophy. Doppler and Color Flow revealed no significant aortic regurgitation. There is no significant aortic valvular stenosis. Doppler and Color-flow revealed mild mitral regurgitation. Doppler and Color Flow revealed mild to moderate tricuspid regurgitation. PE: GEN: NAD - dialyzing HEENT: Atraumatic, PERRL LUNGS: diminished, NC 3L HEART: RR ABD: distended, non-tender EXTREMITY: chronic BLE edema SKIN: BLE erythema NEURO/PSYCH: A & O 3, friendly - asks me several times to tell Dr. Fisher he likes him A/P: A/P: Weakness ?GPC bacteremia, elevated troponin CAD, s/p AVR, A Fib, ESRD on HD Abdominal distention/ascites, splenomegaly, right pleural effusion H/o anemia w/ past bone marrow biopsy - stable, gets Venofer at outpt HD GERD on PPI Crohn's on Humira, s/p bowel resection CRC screen - last in 2018 S/p cholecystectomy H/o alcohol overuse - less now -- D/w Dr. Fisher - check Doppler to eval portal vein, also AFP. Consider paracentesis/fluid studies as able. Continue PPI. KAYLI GILL Oct 05, 2020 16:47
[2020-10-05] MEDS: VANCOMYCIN 500 MG in IV NORMAL SALINE 100ML 100 ML IV SCH (18:17)
[2020-10-05] MEDS: HEPARIN 25,000UTS/250ML PREMIX 250 ML IV PRN (20:20)
--- NOTE | 2020-10-05 20:32 | RAD ---
Ultrasound the abdomen limited. HISTORY: New ascites Ultrasound was used to evaluate the liver. Liver is within normal limits in size. A focal liver lesio n is not identified. There is a hepatopedal flow in the main portal vein as well as left and right po rtal veins. Portal vein measures 1.5 cm in diameter. Velocity in the mid portal vein was 50 cm/s. The re is a right pleural effusion. There is no significant ascites about the liver at the time of the ex am imaging of other areas abdomen was not obtained. IMPRESSION: 1. No focal liver lesion noted. 2. Normal hepatopedal flow in the main, right and left portal veins. 3. Right pleural effusion. Electronically signed by: Tiago Foss MD (10/05/2020 8:29 PM) [facility]
[2020-10-05] MEDS ORDERED: DARBEPOETIN ALFA 60 MCG/0.3 ML DISP.SYRIN. SQ SCH (21:00)
[2020-10-05] MEDS: ATORVASTATIN CALCIUM 40 MG TABLET. PO SCH (21:08)
[2020-10-06] VITALS (20 sets, daily range): BP systolic 90–119; BP diastolic 48–84
[2020-10-06] MEDS: PIPERACILLIN/TAZOBACTAM 2.25 GM in IV NORMAL SALINE 50ML 50 ML IV SCH ×3 (05:11→21:03)
[2020-10-06 05:30] LABS: RED BLOOD COUNT 3.19 x10^6/uL (4.30-5.70); RED CELL DISTRIBUTION WIDTH 16.3 % (11.5-14.5); WHITE BLOOD COUNT 5.5 x10^3/uL (4.0-11.0)
[2020-10-06 05:59] LABS: ALBUMIN/GLOBULIN RATIO 0.6 (1.0-1.7); CALCIUM 8.5 mg/dL (8.5-10.1); CREATININE 4.2 mg/dL (0.7-1.3); GFR 13.9; TOTAL BILIRUBIN 0.8 mg/dL (0.2-1.0); TOTAL PROTEIN 8.4 g/dL (6.4-8.2)
[2020-10-06] MEDS: INSULIN LISPRO 300 UNITS/3 ML VIAL. SQ SCH ×3 (07:52→17:00)
[2020-10-06] MEDS: GABAPENTIN 300 MG CAPSULE. PO SCH ×2 (07:56→21:07)
[2020-10-06] MEDS: PANTOPRAZOLE 40 MG TABLET.DR. PO SCH (07:56)
[2020-10-06] MEDS: CHOLECALCIFEROL (VITAMIN D3) 1,000 UNIT TABLET PO SCH (07:56)
--- NOTE | 2020-10-06 09:04 | CONS ---
DATE OF CONSULTATION: 10/06/2020 REFERRING PHYSICIAN: Dr. Nowak. REASON FOR CONSULTATION: Bacteremia. HISTORY OF PRESENT ILLNESS: A 74-year-old male with history of AFib, CHF, CAD, CKD, on dialysis through right chest wall dialysis catheter Sunday, and Sunday, presented to the ER with generalized weakness. He had been feeling the same since last Sunday. His weakness did not improve. He also had worsening of both lower extremities edema, abdominal edema. He had diarrhea and also had right lower extremity erythema. He denies any fevers. He was found to have leukocytosis at 16.9 with BNP of greater than 35,000. Troponin was 3.634. Lactate of 1.7. He had blood cultures done from 10/03, 03/22 bottles is positive for gram-positive cocci in clusters. The patient was started on vancomycin. ID consultation is requested for antibiotic management. The patient is admitted to ICU. Today, he says he feels a little better, still feels weak. Denies any fevers, chills, headache, nausea, vomiting, or abdominal pain. PAST MEDICAL HISTORY: CAD, CKD, on dialysis, CHF, atrial fibrillation, diabetes mellitus 2, hyperlipidemia, Crohn's disease and sleep apnea, on home O2. Pleural effusion, aortic stenosis. PAST SURGICAL HISTORY: Angioplasty, appendectomy, cholecystectomy, coronary artery bypass graft, bowel resection, laminectomy, thoracocentesis, AVR, cardiac stents. ALLERGIES: FUROSEMIDE, INFLIXIMAB, AMLODIPINE, AZATHIOPRINE. FAMILY HISTORY: As per HPI. SOCIAL HISTORY: Former smoker. Alcohol, social. No drugs. Lives at home with family. CURRENT MEDICATIONS: Darbepoetin, vancomycin, vitamin D, pantoprazole, gabapentin, atorvastatin, heparin, insulin, Zosyn, methocarbamol, dopamine, prochlorperazine, morphine, acetaminophen, sennoside, hydrocodone. PHYSICAL EXAMINATION: VITAL SIGNS: Temperature 97.8, pulse 61, respiratory rate 18, blood pressure 99/58, oxygen saturation 96% on 3 liters O2 by nasal cannula. GENERAL: Alert, oriented x 3, pleasant male, lying in bed comfortably, in no acute distress. HEENT: Normocephalic, atraumatic. Anicteric. NECK: Supple. LUNGS: Decreased breath sounds at the bases. HDC catheter, right chest wall looks clean. HEART: Irregularly irregular, distant heart sounds. ABDOMEN: Mildly distended. Bowel sounds present, nontender, nondistended. EXTREMITIES: Bilateral lower extremity edema. No cyanosis. Mild right lower extremity redness present. DERMATOLOGIC: Multiple skin breakdown, superficial bruises. No warmth. No generalized rash. NEUROLOGIC: Alert, oriented x 3. Grossly nonfocal. Has generalized weakness. PSYCHIATRIC: Calm, cooperative. LABORATORY DATA: WBC 5.5, it was 16.9, hemoglobin 10.0, hematocrit 31, platelets 158. Sodium 136, potassium 4.0, chloride 99, bicarbonate 27, BUN 33, creatinine 4.2, glucose 102, lactate was 1.7, albumin 3.2. Micro; blood culture 10/03/2020, / bottles positive for GPC. ID and JANA pending at this time. IMAGING: Abdominal ultrasound noted. Lower extremity ultrasound noted. Head and cervical CT spine noted. Chest x-ray noted. IMPRESSION: 1. Sepsis. 2. Leukocytosis. 3. Sepsis etiology appears multifactorial 4. Gram-positive bacteremia. 1 out of 4 bottles present on admission 5. Congestive heart failure. 6. Atrial fibrillation. 7. End-stage renal disease, on hemodialysis. 8. Cirrhosis with ascites. 9. Diabetes mellitus. 10. Pressure ulcer. 11. Obstructive sleep apnea, on home O2. 12. Anemia. 13. Elevated troponin, demand ischemia. 14. Anasarca. RECOMMENDATIONS: 1. Continue Zosyn and vancomycin. 2. Follow up GPC in blood cultures. 3. Repeat blood cultures. 4. May need HD catheter removal depending on ID of GPC. 5. Continue supportive care. 6. Continue local wound care. Discussed with nursing staff. CCT time spent 35 minutes. Thank you for allowing me to participate in this patient's care. If you have any questions, do not hesitate to contact me. Discussed with nursing staff. PHILLIP/SHASHI ROMERO: Betsy TID: [id number] JENNY
--- NOTE | 2020-10-06 09:42 | PDOC ---
DATE OF SERVICE DATE: 10/06/20 TIME: 09:40 SUBJECTIVE ROS Stable, states feeling better OBJECTIVE Vital Signs Vital Signs Date Time Temp Pulse Resp B/P (MAP) Pulse Ox O2 Delivery O2 Flow Rate FiO2 10/06/20 09:00 60 19 98/56 (70) 97 Nasal Cannula 3.0 10/06/20 07:29 97.8 97.8 I & 0 Intake and Output 10/06/20 07:00 Intake Total 1436 ml Output Total 0 ml Balance 1436 ml Intake Oral 690 ml IV Total 309 ml Blood Product IV Normal Saline Flush 437 ml Output Urine Total 0 ml PHYSICAL EXAM Physical Exam General NAD HEEN OM moist, On O2 by NC Neck supple Lungs decreased at bases, non labored CV S1S2 Abd- Distended , NT , BS + Ext LE edema Bilat ++ Neuro Grossly Normal Derm No Rash No de la paz, No CVA or SP tenderness Psych Cooperative DIAGNOSIS/ASSESSMENT Assessment & Plan ESRD - on HD TTS under Dr. Lopez at [facility], currently no emergent indication for HD today Right lower extremity cellulitis- management per primary Anasarca Cardiac/ HypoAlbuminemia/ Hemodynamic instability - Cxr - Central vascular congestion. Abdominal distension-US abdomen- Moderate ascites. GI consulted Right pleural effusion Right buttock ulcers concerning for pressure ulcers Atrial fibrillation on Eliquis History of diabetes mellitus type 2 Hx of Hypertension currently Low BP Hx of CABG ALESIA- stopped using CPAP recently ,On Home O2 Anemia continue ALICE COMMENT/RELEVANT DATA Meds Current Medications Medications (Trade) Dose Ordered Sig/Jose Start Time Stop Time Status Last Admin Dose Admin Acetaminophen (Tylenol) 650 mg PRN Q4HRS PRN 10/03/20 13:00 Acetaminophen/ Hydrocodone Bitart (Lortab 7.5/325) 1 tab PRN Q6HRS PRN 10/03/20 12:45 10/03/20 14:36 1 TAB Albumin Human 200 ml @ 200 mls/hr 1X PRN PRN 10/05/20 08:30 10/05/20 14:29 DC 10/05/20 14:22 200 MLS/HR Aspirin (Ecotrin) 325 mg 1X ONCE 10/03/20 09:45 10/03/20 09:49 DC 10/03/20 12:18 325 MG Atorvastatin Calcium (Lipitor) 40 mg HS 10/03/20 21:00 10/05/20 21:08 40 MG Darbepoetin Dariel (ARANESP for DIALYSIS PTS) 60 mcg Mo 10/05/20 21:00 10/05/20 21:09 60 MCG Dextrose (Dextrose 50%-Water Syringe) 12.5 gm PRN Q15MIN PRN 10/03/20 13:00 Diphenhydramine HCl (Benadryl) 25 mg 1X PRN PRN 10/04/20 08:15 10/05/20 08:14 DC Docusate Sodium (Colace) 100 mg PRN DAILY PRN 10/03/20 13:00 Dopamine HCl/ Dextrose 250 ml @ 19.688 mls/ hr CONT PRN 10/03/20 13:45 10/06/20 01:27 19.688 MLS/HR Gabapentin (Neurontin) 300 mg BID 10/03/20 21:00 10/06/20 07:56 300 MG Heparin Sodium (Porcine) (Heparin Sodium) 2,500 unit PRN Q6HRS PRN 10/03/20 17:00 Heparin Sodium/ Dextrose 250 ml @ 0 mls/hr CONT PRN 10/03/20 17:00 10/05/20 20:20 11 MLS/HR Info (PHARMACY MONITORING -- do not chart) 1 each PRN DAILY PRN 10/05/20 08:30 Insulin Human Lispro (HumaLOG) 0-7 UNITS TIDWMEALS 10/03/20 17:00 Methocarbamol (Robaxin) 1,500 mg PRN Q6HRS PRN 10/03/20 13:45 Midodrine (Proamatine) 5 mg [id number] 10/03/20 13:30 10/03/20 13:47 DC 10/03/20 13:26 5 MG Morphine Sulfate (Morphine Sulfate) 2 mg PRN Q2HR PRN 10/03/20 13:00 10/04/20 12:59 DC Ondansetron HCl (Zofran) 4 mg PRN Q6HRS PRN 10/03/20 13:00 Pantoprazole Sodium (Protonix) 40 mg DAILYAC 10/04/20 07:30 10/06/20 07:56 40 MG Piperacillin Sod/ Tazobactam Sod 2.25 gm/Sodium Chloride 50 ml @ 100 mls/hr Q8HRS 10/03/20 14:00 10/06/20 05:11 100 MLS/HR Piperacillin Sod/ Tazobactam Sod 3.375 gm/Sodium Chloride 50 ml @ 100 mls/hr Q6HRS 10/03/20 18:00 10/03/20 13:07 DC Piperacillin Sod/ Tazobactam Sod 4.5 gm/Sodium Chloride 100 ml @ 200 mls/hr 1X ONCE 10/03/20 07:45 10/03/20 08:14 DC 10/03/20 08:47 200 MLS/HR Prochlorperazine Edisylate (Compazine) 10 mg PRN Q6HRS PRN 10/03/20 13:00 Sennosides (Senna) 17.2 mg PRN BID PRN 10/03/20 13:00 Sodium Chloride 1,000 ml @ 400 mls/hr Q2H30M PRN 10/05/20 08:30 10/05/20 20:29 DC Vancomycin HCl (Vanco Per Pharmacy) 1 each PRN DAILY PRN 10/03/20 13:00 10/05/20 08:54 1 EACH Vancomycin HCl (Vancomycin Random Level) 1 each 1X ONCE 10/05/20 06:00 10/05/20 06:01 DC 10/05/20 06:00 1 EACH Vancomycin HCl 1.5 gm/Sodium Chloride 500 ml @ 250 mls/hr 1X ONCE 10/03/20 13:15 10/03/20 15:14 DC 10/03/20 14:04 250 MLS/HR Vancomycin HCl 500 mg/Sodium Chloride 100 ml @ 100 mls/hr QTUTHSA 10/05/20 16:00 10/05/20 18:17 100 MLS/HR Vitamin D (Vitamin D3) 2,000 unit DAILY 10/04/20 09:00 10/06/20 07:56 2,000 UNIT Lab Laboratory Tests Test 10/05/20 14:05 10/05/20 18:11 10/05/20 20:00 10/06/20 05:15 Activated Partial Thromboplast Time 85 SEC (24-38) 85 SEC (24-38) 65 SEC (24-38) Glucose (Fingerstick) 91 mg/dL (70-99) White Blood Count 5.5 x10^3/uL (4.0-11.0) Red Blood Count 3.19 x10^6/uL (4.30-5.70) Hemoglobin 10.0 g/dL (13.0-17.5) Hematocrit 31.0 % (39.0-53.0) Mean Corpuscular Volume 97 fL (79-100) Mean Corpuscular Hemoglobin 31 pg (25-35) Mean Corpuscular Hemoglobin Concent 32 g/dL (31-37) Red Cell Distribution Width 16.3 % (11.5-14.5) Platelet Count 158 x10^3/uL (140-400) Sodium Level 136 mmol/L (136-145) Potassium Level 4.0 mmol/L (3.5-5.1) Chloride Level 99 mmol/L (98-107) Carbon Dioxide Level 27 mmol/L (21-32) Anion Gap 10 (6-14) Blood Urea Nitrogen 33 mg/dL (8-26) Creatinine 4.2 mg/dL (0.7-1.3) Estimated GFR (Cockcroft-Gault) 13.9 BUN/Creatinine Ratio 8 (6-20) Glucose Level 111 mg/dL (70-99) Calcium Level 8.5 mg/dL (8.5-10.1) Total Bilirubin 0.8 mg/dL (0.2-1.0) Aspartate Amino Transf (AST/SGOT) 37 U/L (15-37) Alanine Aminotransferase (ALT/SGPT) 24 U/L (16-63) Alkaline Phosphatase 115 U/L (46-116) C-Reactive Protein, Quantitative 60.4 mg/L (0-3.3) Total Protein 8.4 g/dL (6.4-8.2) Albumin 3.0 g/dL (3.4-5.0) Albumin/Globulin Ratio 0.6 (1.0-1.7) Test 10/06/20 07:33 Glucose (Fingerstick) 102 mg/dL (70-99) Results All relevant outside records, renal labs, imaging studies, telemetry/EKG's were reviewed. Justicifation of Admission Dx: Justifications for Admission: Justification of Admission Dx: N/A MIMI LUX MD Oct 06, 2020 09:42
--- NOTE | 2020-10-06 10:36 | PDOC ---
Date of Service: DATE: 10/06/20 TIME: 10:26 Objective: Objective: No GI concerns per nurse, remains on Heparin. D/w Dr. Fisher - pt reports past paracentesis (though wonder if recalling thoracentesis?) D/w possible diuretic use w/ Dr. Nowak - pt w/ ?past allergy to Lasix - unclear - also has used Torsemide. Vital Signs: Vital Signs Date Time Temp Pulse Resp B/P (MAP) Pulse Ox O2 Delivery O2 Flow Rate FiO2 10/06/20 10:08 98.5 56 20 91/51 (64) 96 Nasal Cannula 3.0 98.5 Labs: Laboratory Tests Test 10/05/20 14:05 10/05/20 18:11 10/05/20 20:00 10/06/20 05:15 Activated Partial Thromboplast Time 85 SEC 85 SEC 65 SEC Glucose (Fingerstick) 91 mg/dL White Blood Count 5.5 x10^3/uL Red Blood Count 3.19 x10^6/uL Hemoglobin 10.0 g/dL Hematocrit 31.0 % Mean Corpuscular Volume 97 fL Mean Corpuscular Hemoglobin 31 pg Mean Corpuscular Hemoglobin Concent 32 g/dL Red Cell Distribution Width 16.3 % Platelet Count 158 x10^3/uL Sodium Level 136 mmol/L Potassium Level 4.0 mmol/L Chloride Level 99 mmol/L Carbon Dioxide Level 27 mmol/L Anion Gap 10 Blood Urea Nitrogen 33 mg/dL Creatinine 4.2 mg/dL Estimated GFR (Cockcroft-Gault) 13.9 BUN/Creatinine Ratio 8 Glucose Level 111 mg/dL Calcium Level 8.5 mg/dL Total Bilirubin 0.8 mg/dL Aspartate Amino Transf (AST/SGOT) 37 U/L Alanine Aminotransferase (ALT/SGPT) 24 U/L Alkaline Phosphatase 115 U/L C-Reactive Protein, Quantitative 60.4 mg/L Total Protein 8.4 g/dL Albumin 3.0 g/dL Albumin/Globulin Ratio 0.6 Test 10/06/20 07:33 Glucose (Fingerstick) 102 mg/dL BLOOD CULTURE Preliminary NO GROWTH AFTER 3 DAYS Imaging: Abd Doppler IMPRESSION: 1. No focal liver lesion noted. 2. Normal hepatopedal flow in the main, right and left portal veins. 3. Right pleural effusion. PE: GEN: NAD LUNGS: NC 3L HEART: RRR ABD: stable distention NEURO/PSYCH: sleeping soundly, did not awaken A/P: ?GPC bacteremia Elevated troponin/demand ischemia CAD, s/p AVR, A Fib, ESRD on HD Anasarca/ascites, splenomegaly, right pleural effusion - h/o alcohol overuse - Doppler okay as above (interestingly "there is no significant ascites about the liver at the time of the exam"), AFP pending Chronic anemia, GERD, Crohn's -- US noted ascites, Doppler does not. ?check CT - will d/w Dr. Fisher. Justicifation of Admission Dx: Justifications for Admission: Justification of Admission Dx: N/A KAYLI GILL Oct 06, 2020 10:36
[2020-10-06] MEDS: VANCOMYCIN PER PHARMACY MC PRN (11:29)
[2020-10-06] MEDS ORDERED: ANTI-COAG MONITOR BY PHARMACY. MC PRN (11:45)
[2020-10-06] MEDS: HEPARIN 25,000UTS/250ML PREMIX 250 ML IV PRN (14:47)
--- NOTE | 2020-10-06 16:36 | NUR ---
SS following up with discharge planning. SS reviewed pt chart and discussed with pt RN. Pt is currently requiring oxygen at three liters nasal canula. Pt has home oxygen. Pt on IV Zosyn. Pt on Dopamine and Heparin. PT/OT ordered. PT recommended fci unit. Pt declining fci unit at this time and is considering home healthcare. SS will continue to follow for discharge planning.
--- NOTE | 2020-10-06 17:33 | PDOC ---
[employer] PROGRESS NOTE Date of Service DOS: DATE: 10/06/20 TIME: 17:23 Chief Complaint Chief Complaint Sepsis Hemodynamic instability Right lower extremity cellulitis Acute volume overload Elevated troponins, likely type II demand ischemia, possible NSTEMI Anasarca Acute electrolyte derangement due to ESRD Right buttock ulcers concerning for pressure ulcers Concern for caregiver burden ESRD TTS Atrial fibrillation on Eliquis History of diabetes mellitus type 2 Dyslipidemia Hypertension CABG ALESIA Anemia due to ESRD Obesity class I Admit to telemetry with hospitalist to manage Cardiology consult for non-STEMI Nephrology consult for hemodialysis We will likely start p.o. vasopressor midodrine in the meantime if there is no response, will likely need to start vasopressor or remove more fluid Continue empiric IV antibiotics Pending blood cultures Strict I's and O's Avoid nephrotoxic agents Heparin drip for DVT prophylaxis Protonix GI prophylaxis ADA diet Full code Discussed with RN and SW Disposition patient management as above Surrogate decision maker is History of Present Illness History of Present Illness 74 year old male who presents to the ER via EMS with generalized weakness. The patient has a history of Afib, CHF, CKD, and currently receives dialysis. The patient reports that he started feeling fatigued and weak yesterday. He also reports that his BP was in the 80/40 range yesterday. This morning the patient felt too weak to walk which is what brought him to the ER. He reports right lower extremity erythema, bilateral lower extremity edema, abdominal edema, and diarrhea. The patient denies any pain or SOB at this time. 10/06/2020: Patient seen in ICU sitting upright in chair. States he feels well, currently breathing on 3 L nasal cannula. Discussed with Gastroenterology PA, further work-up pending to rule in or rule out cirrhosis. Limited abdominal Doppler showed no focal liver lesion, normal hepatopedal flow in the main, right and left portal veins. Patient had positive cultures with gram-positive cocci in 1 of 4 bottles; ID was consulted. Patient does note some improvement in his erythema, now below the right knee. We will continue Zosyn and vancomycin for now. He remains on dopamine infusion. 30 minutes critical care time spent reviewing charts, reviewing labs, reviewing imaging, discussion with GI, and discussion with RN. 10/05/2020: Patient seen in ICU, remains on vasopressors. Afebrile, breathing 3 L nasal cannula. Per cardiology, elevated troponins likely due to demand ischemia in this clinical setting. We will continue current treatment, Zosyn and vancomycin. Continue supportive care. Spoke with patient's by phone and addressed her concerns. Critical care time 30 minutes spent reviewing charts, reviewing labs, reviewing imaging, discussion with RN. 10/04/2020: Patient seen in ICU, afebrile. Currently breathing on 3 L nasal cannula and requiring vasopressors. Has no complaints today. Admits to some chronic diarrhea secondary to his history of Crohn's disease. Continue treatment cellulitis with Zosyn and vancomycin. Denies any sick contacts at home. Critical care time 30 minutes spent reviewing charts, reviewing labs, reviewing imaging, discussion with RN. Vitals/I&O Vitals/I&O: Vital Signs Date Time Temp Pulse Resp B/P (MAP) Pulse Ox O2 Delivery O2 Flow Rate FiO2 10/06/20 16:05 Nasal Cannula 3.0 10/06/20 16:05 97.7 55 16 95/50 (65) 96 97.7 I & O 10/05/20 10/05/20 10/06/20 15:00 23:00 07:00 Intake Total 300 ml 459 ml 677 ml Output Total 0 ml 0 ml Balance 300 ml 459 ml 677 ml Physical Exam General: Alert, Oriented X3, Cooperative, No acute distress Heart: Other (Irregular rhythm) Lungs: Clear Abdomen: Normal bowel sounds Extremities: No clubbing, No cyanosis Skin: Other (Bilateral lower extremity erythema, right greater than left.) Labs Labs: Laboratory Tests Test 10/05/20 18:11 10/05/20 20:00 10/06/20 05:15 10/06/20 07:33 Glucose (Fingerstick) 91 mg/dL (70-99) 102 mg/dL (70-99) Activated Partial Thromboplast Time 85 SEC (24-38) 65 SEC (24-38) White Blood Count 5.5 x10^3/uL (4.0-11.0) Red Blood Count 3.19 x10^6/uL (4.30-5.70) Hemoglobin 10.0 g/dL (13.0-17.5) Hematocrit 31.0 % (39.0-53.0) Mean Corpuscular Volume 97 fL (79-100) Mean Corpuscular Hemoglobin 31 pg (25-35) Mean Corpuscular Hemoglobin Concent 32 g/dL (31-37) Red Cell Distribution Width 16.3 % (11.5-14.5) Platelet Count 158 x10^3/uL (140-400) Sodium Level 136 mmol/L (136-145) Potassium Level 4.0 mmol/L (3.5-5.1) Chloride Level 99 mmol/L (98-107) Carbon Dioxide Level 27 mmol/L (21-32) Anion Gap 10 (6-14) Blood Urea Nitrogen 33 mg/dL (8-26) Creatinine 4.2 mg/dL (0.7-1.3) Estimated GFR (Cockcroft-Gault) 13.9 BUN/Creatinine Ratio 8 (6-20) Glucose Level 111 mg/dL (70-99) Calcium Level 8.5 mg/dL (8.5-10.1) Total Bilirubin 0.8 mg/dL (0.2-1.0) Aspartate Amino Transf (AST/SGOT) 37 U/L (15-37) Alanine Aminotransferase (ALT/SGPT) 24 U/L (16-63) Alkaline Phosphatase 115 U/L (46-116) C-Reactive Protein, Quantitative 60.4 mg/L (0-3.3) Total Protein 8.4 g/dL (6.4-8.2) Albumin 3.0 g/dL (3.4-5.0) Albumin/Globulin Ratio 0.6 (1.0-1.7) Test 10/06/20 11:56 10/06/20 12:30 10/06/20 16:30 Glucose (Fingerstick) 94 mg/dL (70-99) 122 mg/dL (70-99) Activated Partial Thromboplast Time 81 SEC (24-38) Assessment and Plan Assessmemt and Plan Problems Medical Problems: (1) Cellulitis of right lower extremity Status: Acute (2) End-stage renal disease on hemodialysis Status: Acute (3) Hypotension Status: Acute Comment Review of Relevant I have reviewed the following items bernadine (where applicable) has been applied. Medications: Current Medications Medications (Trade) Dose Ordered Sig/Jose Route PRN Reason Start Time Stop Time Status Last Admin Dose Admin Darbepoetin Dariel (ARANESP for DIALYSIS PTS) 60 mcg Mo SQ 10/05/20 21:00 10/05/20 21:09 Info (Anti-Coagulation Monitoring By Pharmacy) 1 each PRN DAILY PRN MC PER PROTOCOL 10/06/20 11:45 10/06/20 11:41 Justifications for Admission Other Justification Sepsis, right lower extremity cellulitis SANDY COOLEY MD Oct 06, 2020 17:33
--- NOTE | 2020-10-06 18:13 | PDOC ---
PROGRESS NOTES Date of Service DATE: 10/06/20 TIME: 18:11 Subjective Subjective Patient seen and examined Objective Objective Vital Signs Date Time Temp Pulse Resp B/P (MAP) Pulse Ox O2 Delivery O2 Flow Rate FiO2 10/06/20 17:14 68 23 93/50 (64) 97 Nasal Cannula 3.0 10/06/20 16:05 97.7 97.7 Intake and Output 10/06/20 07:00 Intake Total 1436 ml Output Total 0 ml Balance 1436 ml Intake Oral 690 ml IV Total 309 ml Blood Product IV Normal Saline Flush 437 ml Output Urine Total 0 ml Physical Exam Abdomen: Normal bowel sounds Heart: Other (Irregular rhythm) General: mild distress Lungs: Other (Mildly decreased breath sounds) Assessment Assessment Problems Medical Problems: (1) Cellulitis of right lower extremity Status: Acute (2) End-stage renal disease on hemodialysis Status: Acute (3) Hypotension Status: Acute 1. Sepsis. The patient is being continued on antibiotics and pressors. He continues to be more alert. We will continue present treatment. 2. Elevated troponin with a peak of 5.4. History of bypass surgery in 2019. No ST elevation on EKG. Echo with ejection fraction of 50% with mild mitral vegetation and mild to moderate tricuspid regurgitation. We will continue present treatments. Most consistent with demand ischemia in this setting. 3. Atrial fibrillation. Rate is under reasonable control. Continue present treatment. 4. Hyperlipidemia. Continue medications. 5. History of a CVA. 6. End-stage renal disease on hemodialysis. Followed by renal. Comment Review of Relevant I have reviewed the following items bernadine (where applicable) has been applied. Labs Laboratory Tests Test 10/05/20 00:20 10/05/20 07:30 10/05/20 14:05 10/05/20 18:11 Activated Partial Thromboplast Time 67 SEC (24-38) 70 SEC (24-38) 85 SEC (24-38) White Blood Count 6.7 x10^3/uL (4.0-11.0) Red Blood Count 3.02 x10^6/uL (4.30-5.70) Hemoglobin 9.4 g/dL (13.0-17.5) Hematocrit 29.3 % (39.0-53.0) Mean Corpuscular Volume 97 fL (79-100) Mean Corpuscular Hemoglobin 31 pg (25-35) Mean Corpuscular Hemoglobin Concent 32 g/dL (31-37) Red Cell Distribution Width 16.6 % (11.5-14.5) Platelet Count 162 x10^3/uL (140-400) Neutrophils (%) (Auto) 77 % (31-73) Lymphocytes (%) (Auto) 5 % (24-48) Monocytes (%) (Auto) 9 % (0-9) Eosinophils (%) (Auto) 8 % (0-3) Basophils (%) (Auto) 1 % (0-3) Neutrophils # (Auto) 5.1 x10^3/uL (1.8-7.7) Lymphocytes # (Auto) 0.3 x10^3/uL (1.0-4.8) Monocytes # (Auto) 0.6 x10^3/uL (0.0-1.1) Eosinophils # (Auto) 0.5 x10^3/uL (0.0-0.7) Basophils # (Auto) 0.1 x10^3/uL (0.0-0.2) Sodium Level 136 mmol/L (136-145) Potassium Level 3.6 mmol/L (3.5-5.1) Chloride Level 100 mmol/L (98-107) Carbon Dioxide Level 31 mmol/L (21-32) Anion Gap 5 (6-14) Blood Urea Nitrogen 42 mg/dL (8-26) Creatinine 5.0 mg/dL (0.7-1.3) Estimated GFR (Cockcroft-Gault) 11.4 Glucose Level 97 mg/dL (70-99) Calcium Level 8.2 mg/dL (8.5-10.1) Random Vancomycin Level 8.3 mcg/mL Glucose (Fingerstick) 91 mg/dL (70-99) Test 10/05/20 20:00 10/06/20 05:15 10/06/20 07:33 10/06/20 11:56 Activated Partial Thromboplast Time 85 SEC (24-38) 65 SEC (24-38) White Blood Count 5.5 x10^3/uL (4.0-11.0) Red Blood Count 3.19 x10^6/uL (4.30-5.70) Hemoglobin 10.0 g/dL (13.0-17.5) Hematocrit 31.0 % (39.0-53.0) Mean Corpuscular Volume 97 fL (79-100) Mean Corpuscular Hemoglobin 31 pg (25-35) Mean Corpuscular Hemoglobin Concent 32 g/dL (31-37) Red Cell Distribution Width 16.3 % (11.5-14.5) Platelet Count 158 x10^3/uL (140-400) Sodium Level 136 mmol/L (136-145) Potassium Level 4.0 mmol/L (3.5-5.1) Chloride Level 99 mmol/L (98-107) Carbon Dioxide Level 27 mmol/L (21-32) Anion Gap 10 (6-14) Blood Urea Nitrogen 33 mg/dL (8-26) Creatinine 4.2 mg/dL (0.7-1.3) Estimated GFR (Cockcroft-Gault) 13.9 BUN/Creatinine Ratio 8 (6-20) Glucose Level 111 mg/dL (70-99) Calcium Level 8.5 mg/dL (8.5-10.1) Total Bilirubin 0.8 mg/dL (0.2-1.0) Aspartate Amino Transf (AST/SGOT) 37 U/L (15-37) Alanine Aminotransferase (ALT/SGPT) 24 U/L (16-63) Alkaline Phosphatase 115 U/L (46-116) C-Reactive Protein, Quantitative 60.4 mg/L (0-3.3) Total Protein 8.4 g/dL (6.4-8.2) Albumin 3.0 g/dL (3.4-5.0) Albumin/Globulin Ratio 0.6 (1.0-1.7) Glucose (Fingerstick) 102 mg/dL (70-99) 94 mg/dL (70-99) Test 10/06/20 12:30 10/06/20 16:30 Activated Partial Thromboplast Time 81 SEC (24-38) Glucose (Fingerstick) 122 mg/dL (70-99) Laboratory Tests Test 10/05/20 20:00 10/06/20 05:15 10/06/20 07:33 10/06/20 11:56 Activated Partial Thromboplast Time 85 SEC (24-38) 65 SEC (24-38) White Blood Count 5.5 x10^3/uL (4.0-11.0) Red Blood Count 3.19 x10^6/uL (4.30-5.70) Hemoglobin 10.0 g/dL (13.0-17.5) Hematocrit 31.0 % (39.0-53.0) Mean Corpuscular Volume 97 fL (79-100) Mean Corpuscular Hemoglobin 31 pg (25-35) Mean Corpuscular Hemoglobin Concent 32 g/dL (31-37) Red Cell Distribution Width 16.3 % (11.5-14.5) Platelet Count 158 x10^3/uL (140-400) Sodium Level 136 mmol/L (136-145) Potassium Level 4.0 mmol/L (3.5-5.1) Chloride Level 99 mmol/L (98-107) Carbon Dioxide Level 27 mmol/L (21-32) Anion Gap 10 (6-14) Blood Urea Nitrogen 33 mg/dL (8-26) Creatinine 4.2 mg/dL (0.7-1.3) Estimated GFR (Cockcroft-Gault) 13.9 BUN/Creatinine Ratio 8 (6-20) Glucose Level 111 mg/dL (70-99) Calcium Level 8.5 mg/dL (8.5-10.1) Total Bilirubin 0.8 mg/dL (0.2-1.0) Aspartate Amino Transf (AST/SGOT) 37 U/L (15-37) Alanine Aminotransferase (ALT/SGPT) 24 U/L (16-63) Alkaline Phosphatase 115 U/L (46-116) C-Reactive Protein, Quantitative 60.4 mg/L (0-3.3) Total Protein 8.4 g/dL (6.4-8.2) Albumin 3.0 g/dL (3.4-5.0) Albumin/Globulin Ratio 0.6 (1.0-1.7) Glucose (Fingerstick) 102 mg/dL (70-99) 94 mg/dL (70-99) Test 10/06/20 12:30 10/06/20 16:30 Activated Partial Thromboplast Time 81 SEC (24-38) Glucose (Fingerstick) 122 mg/dL (70-99) Microbiology 10/03/20 Blood Culture - Preliminary, Resulted NO GROWTH AFTER 3 DAYS Medications Current Medications Sodium Chloride 1,000 ml @ 1,000 mls/hr 1X ONCE IV ; Start 10/03/20 at 07:30; Stop 10/03/20 at 07:56; Status DC Piperacillin Sod/ Tazobactam Sod 4.5 gm/Sodium Chloride 100 ml @ 200 mls/hr 1X ONCE IV Last administered on 10/03/20at 08:47; Start 10/03/20 at 07:45; Stop 10/03/20 at 08:14; Status DC Heparin Sodium (Porcine) (Heparin Sodium) 4,000 unit 1X ONCE IV Last administered on 10/03/20at 08:58; Start 10/03/20 at 08:30; Stop 10/03/20 at 08:31; Status DC Heparin Sodium/ Dextrose 250 ml @ 0 mls/hr CONT PRN IV PER PROTOCOL Last administered on 10/03/20at 09:00; Start 10/03/20 at 08:30; Stop 10/03/20 at 16:59; Status DC Heparin Sodium (Porcine) (Heparin Sodium) 2,650 unit PRN Q6HRS PRN IV FOR UFH LEVEL LESS THAN 0.2; Start 10/03/20 at 08:30; Stop 10/03/20 at 16:59; Status DC Ondansetron HCl (Zofran) 4 mg PRN Q8HRS PRN IV NAUSEA/VOMITING; Start 10/03/20 at 09:45; Stop 10/04/20 at 09:44; Status Cancel Aspirin (Ecotrin) 325 mg 1X ONCE PO Last administered on 10/03/20at 12:18; Start 10/03/20 at 09:45; Stop 10/03/20 at 09:49; Status DC Insulin Human Lispro (HumaLOG) 0-5 UNITS TIDWMEALS SQ ; Start 10/03/20 at 12:00; Stop 10/03/20 at 13:04; Status DC Dextrose (Dextrose 50%-Water Syringe) 12.5 gm PRN Q15MIN PRN IV SEE COMMENTS; Start 10/03/20 at 10:45; Stop 10/03/20 at 13:04; Status DC Atorvastatin Calcium (Lipitor) 40 mg HS PO Last administered on 10/05/20at 21:08; Start 10/03/20 at 21:00 Vitamin D (Vitamin D3) 2,000 unit DAILY PO Last administered on 10/06/20at 07:5 6; Start 10/04/20 at 09:00 Gabapentin (Neurontin) 300 mg BID PO Last administered on 10/06/20at 07:56; Start 10/03/20 at 21:00 Acetaminophen/ Hydrocodone Bitart (Lortab 7.5/325) 1 tab PRN Q6HRS PRN PO MODERATE-SEVERE PAIN Last administered on 10/03/20at 14:36; Start 10/03/20 at 12:45 Pantoprazole Sodium (Protonix) 40 mg DAILYAC PO Last administered on 10/06/20at 07:56; Start 10/04/20 at 07:30 Sennosides (Senna) 17.2 mg PRN BID PRN PO CONSTIPATION; Start 10/03/20 at 13:00 Docusate Sodium (Colace) 100 mg PRN DAILY PRN PO HARD STOOLS; Start 10/03/20 at 13:00 Ondansetron HCl (Zofran) 4 mg PRN Q6HRS PRN IVP NAUSEA/VOMITING; Start 10/03/20 at 13:00 Insulin Human Lispro (HumaLOG) 0-7 UNITS TIDWMEALS SQ ; Start 10/03/20 at 17:00 Dextrose (Dextrose 50%-Water Syringe) 12.5 gm PRN Q15MIN PRN IV SEE COMMENTS; Start 10/03/20 at 13:00 Acetaminophen (Tylenol) 650 mg PRN Q4HRS PRN PO TEMP OVER 100.4F OR MILD PAIN; Start 10/03/20 at 13:00 Vancomycin HCl (Vanco Per Pharmacy) 1 each PRN DAILY PRN MC SEE COMMENTS Last administered on 10/06/20at 11:29; Start 10/03/20 at 13:00 Piperacillin Sod/ Tazobactam Sod 3.375 gm/Sodium Chloride 50 ml @ 100 mls/hr Q6HRS IV ; Start 10/03/20 at 18:00; Stop 10/03/20 at 13:07; Status DC Morphine Sulfate (Morphine Sulfate) 1 mg PRN Q1HR PRN IV PAIN; Start 10/03/20 at 13:00 Morphine Sulfate (Morphine Sulfate) 2 mg PRN Q2HR PRN IVP SEVERE PAIN 7-10; Start 10/03/20 at 13:00; Stop 10/04/20 at 12:59; Status DC Prochlorperazine Edisylate (Compazine) 10 mg PRN Q6HRS PRN IV NAUSEA/VOMITING, 2ND CHOICE; Start 10/03/20 at 13:00 Midodrine (Proamatine) 5 mg [id number] PO Last administered on 10/03/20at 13:26; Start 10/03/20 at 13:30; Stop 10/03/20 at 13:47; Status DC Piperacillin Sod/ Tazobactam Sod 2.25 gm/Sodium Chloride 50 ml @ 100 mls/hr Q8HRS IV Last administered on 10/06/20at 13:45; Start 10/03/20 at 14:00 Vancomycin HCl 1.5 gm/Sodium Chloride 500 ml @ 250 mls/hr 1X ONCE IV Last administered on 10/03/20at 14:04; Start 10/03/20 at 13:15; Stop 10/03/20 at 15:14; Status DC Dopamine HCl/ Dextrose 250 ml @ 19.688 mls/ hr CONT PRN IV SEE I/O RECORD Last administered on 10/06/20at 15:07; Start 10/03/20 at 13:45 Methocarbamol (Robaxin) 1,500 mg PRN Q6HRS PRN PO BACK PAIN; Start 10/03/20 at 13:45 Vancomycin HCl (Vancomycin Random Level) 1 each 1X ONCE MC Last administered on 10/05/20at 06:00; Start 10/05/20 at 06:00; Stop 10/05/20 at 06:01; Status DC Heparin Sodium/ Dextrose 250 ml @ 0 mls/hr CONT PRN IV PER PROTOCOL Last administered on 10/06/20at 14:47; Start 10/03/20 at 17:00 Heparin Sodium (Porcine) (Heparin Sodium) 25 UNITS / KG PRN Q6HRS PRN IV FOR PTT < 40; Start 10/03/20 at 17:00; Stop 10/03/20 at 17:00; Status DC Heparin Sodium (Porcine) (Heparin Sodium) 2,500 unit PRN Q6HRS PRN IV FOR PTT < 40; Start 10/03/20 at 17:00 Sodium Chloride 1,000 ml @ 1,000 mls/hr Q1H PRN IV hypotension; Start 10/04/20 at 08:15; Stop 10/04/20 at 14:14; Status DC Diphenhydramine HCl (Benadryl) 25 mg 1X PRN PRN IV ITCHING; Start 10/04/20 at 08:15; Stop 10/05/20 at 08:14; Status DC Diphenhydramine HCl (Benadryl) 25 mg 1X PRN PRN IV ITCHING; Start 10/04/20 at 08:15; Stop 10/05/20 at 08:14; Status DC Sodium Chloride 1,000 ml @ 400 mls/hr Q2H30M PRN IV PATENCY; Start 10/04/20 at 08:15; Stop 10/04/20 at 20:14; Status DC Info (PHARMACY MONITORING -- do not chart) 1 each PRN DAILY PRN MC SEE COMMENTS; Start 10/04/20 at 08:15; Status Cancel Albumin Human 200 ml @ 200 mls/hr 1X ONCE IV Last administered on 10/04/20at 09:56; Start 10/04/20 at 10:00; Stop 10/04/20 at 10:59; Status DC Darbepoetin Dariel (ARANESP for DIALYSIS PTS) 60 mcg Mo SQ Last administered on 10/05/20at 21:09; Start 10/05/20 at 21:00 Sodium Chloride 1,000 ml @ 1,000 mls/hr Q1H PRN IV hypotension; Start 10/05/20 at 08:30; Stop 10/05/20 at 14:29; Status DC Albumin Human 200 ml @ 200 mls/hr 1X PRN PRN IV Hypotension Last administered on 10/05/20at 14:22; Start 10/05/20 at 08:30; Stop 10/05/20 at 14:29; Status DC Sodium Chloride 1,000 ml @ 400 mls/hr Q2H30M PRN IV PATENCY; Start 10/05/20 at 08:30; Stop 10/05/20 at 20:29; Status DC Info (PHARMACY MONITORING -- do not chart) 1 each PRN DAILY PRN MC SEE COMMENTS; Start 10/05/20 at 08:30; Status UNV Info (PHARMACY MONITORING -- do not chart) 1 each PRN DAILY PRN MC SEE COMMENTS; Start 10/05/20 at 08:30 Vancomycin HCl 500 mg/Sodium Chloride 100 ml @ 100 mls/hr QTUTHSA IV Last administered on 10/05/20at 18:17; Start 10/05/20 at 16:00 Lactobacillus Rhamnosus (Culturelle) 1 cap BID PO ; Start 10/06/20 at 21:00 Info (Anti-Coagulation Monitoring By Pharmacy) 1 each PRN DAILY PRN MC PER PROTOCOL Last administered on 10/06/20at 11:41; Start 10/06/20 at 11:45 Active Scripts Active Proair Hfa (Albuterol Sulfate) 8.5 Gm Hfa.aer.ad 2.5 Mg NEB PRN Q4HRS PRN Reported Eliquis (Apixaban) 5 Mg Tablet 5 Mg PO BID Gabapentin 300 Mg Capsule 300 Mg PO BID Torsemide 20 Mg Tablet 1 Tab PO BID Ferrous Sulfate 325 Mg Tablet 324 Mg PO BID Aspirin 81 Mg Tab.chew 1 Tab PO DAILY Cyanocobalamin Injection (Cyanocobalamin (Vitamin B-12)) 1,000 Mcg/1 Ml Vial 1,000 Mcg IJ QMONTH Hydrocodone-Apap 7.5-325 (Hydrocodone Bit/Acetaminophen) 1 Each Tablet 1 Tab PO PRN Q6HRS PRN Vitamin D3 (Cholecalciferol (Vitamin D3)) 1,000 Unit Tablet 2,000 Unit PO DAILY Humira (Adalimumab) 40 Mg/0.8 Ml Pen.ij.kit 1 Syr SQ Q2WKS Omeprazole 40 Mg Capsule. 1 Cap PO DAILY Atorvastatin Calcium 40 Mg Tablet 1 Tab PO HS Vitals/I & O Vital Sign - Last 24 Hours 10/05/20 10/05/20 10/05/20 10/05/20 19:00 20:00 20:00 21:00 Temp 97.5 97.6 97.5 97.6 Pulse 52 52 64 Resp 19 20 13 B/P (MAP) 84/44 (57) 94/54 (67) 114/75 (88) Pulse Ox 100 97 97 O2 Delivery Nasal Cannula Nasal Cannula Nasal Cannula vapotherm O2 Flow Rate 3.0 3.0 2.0 3.0 10/05/20 10/05/20 10/06/20 10/06/20 22:14 23:08 00:00 00:03 Temp 97.6 97.6 Pulse 56 54 60 Resp 14 18 16 B/P (MAP) 94/45 (61) 79/51 (60) 90/48 (62) Pulse Ox 97 96 97 O2 Delivery Nasal Cannula Nasal Cannula Nasal Cannula Nasal Cannula O2 Flow Rate 3.0 3.0 2.0 3.0 10/06/20 10/06/20 10/06/20 10/06/20 01:00 02:14 03:00 04:13 Pulse 68 69 70 Resp 20 16 12 B/P (MAP) 107/59 (75) 119/70 (86) 117/61 (79) Pulse Ox 93 94 95 O2 Delivery Nasal Cannula Nasal Cannula Nasal Cannula Nasal Cannula O2 Flow Rate 3.0 3.0 3.0 2.0 10/06/20 10/06/20 10/06/20 10/06/20 04:16 05:09 05:58 07:25 Temp 97.8 97.8 Pulse 65 65 65 Resp 18 16 20 B/P (MAP) 104/51 (68) 108/53 (71) 113/65 (81) Pulse Ox 97 98 96 O2 Delivery Nasal Cannula Nasal Cannula Nasal Cannula Nasal Cannula O2 Flow Rate 3.0 3.0 3.0 3.0 10/06/20 10/06/20 10/06/20 10/06/20 07:29 08:00 09:00 10:08 Temp 97.8 98.5 97.8 98.5 Pulse 61 62 60 56 Resp 18 15 19 20 B/P (MAP) 99/58 (72) 105/56 (72) 98/56 (70) 91/51 (64) Pulse Ox 96 97 97 96 O2 Delivery Nasal Cannula Nasal Cannula Nasal Cannula Nasal Cannula O2 Flow Rate 3.0 3.0 3.0 3.0 10/06/20 10/06/20 10/06/20 10/06/20 11:05 12:06 12:07 13:02 Temp 97.7 97.7 Pulse 56 63 57 Resp 15 17 23 B/P (MAP) 102/58 (73) 102/57 (72) 100/51 (67) Pulse Ox 98 99 98 O2 Delivery Nasal Cannula Nasal Cannula Nasal Cannula Nasal Cannula O2 Flow Rate 3.0 3.0 3.0 3.0 10/06/20 10/06/20 10/06/20 10/06/20 14:00 15:05 16:05 16:05 Temp 97.7 97.7 Pulse 62 68 55 Resp 15 19 16 B/P (MAP) 102/53 (69) 101/53 (69) 95/50 (65) Pulse Ox 97 96 96 O2 Delivery Nasal Cannula Nasal Cannula Nasal Cannula Nasal Cannula O2 Flow Rate 3.0 3.0 3.0 3.0 10/06/20 17:14 Pulse 68 Resp 23 B/P (MAP) 93/50 (64) Pulse Ox 97 O2 Delivery Nasal Cannula O2 Flow Rate 3.0 Intake and Output 10/05/20 10/05/20 10/06/20 15:00 23:00 07:00 Intake Total 300 ml 459 ml 677 ml Output Total 0 ml 0 ml Balance 300 ml 459 ml 677 ml Justifications for Admission Other Justification Sepsis, right lower extremity cellulitis VELVET BAZAN MD Oct 06, 2020 18:13
[2020-10-06] MEDS: LACTOBACILLUS RHAMNOSUS GG 1 CAPSULE. PO SCH (21:07)
[2020-10-06] MEDS: ATORVASTATIN CALCIUM 40 MG TABLET. PO SCH (21:07)
[2020-10-07] VITALS (7 sets, daily range): BP systolic 83–122; BP diastolic 40–67
[2020-10-07] MEDS: PIPERACILLIN/TAZOBACTAM 2.25 GM in IV NORMAL SALINE 50ML 50 ML IV SCH ×3 (05:50→21:27)
[2020-10-07] MEDS ORDERED: ALBUMIN HUMAN 25% 200 ML IV PRN (07:45)
[2020-10-07] MEDS ORDERED: DIALYSIS PATIENT. MC PRN ×2 (07:45)
[2020-10-07] MEDS ORDERED: IV NORMAL SALINE 1000ML BAG 1,000 ML IV PRN ×2 (07:45)
[2020-10-07] MEDS: INSULIN LISPRO 300 UNITS/3 ML VIAL. SQ SCH ×3 (08:00→17:00)
--- NOTE | 2020-10-07 08:42 | PDOC ---
Infectious Disease Note Subjective: Subjective pt says feels a little better tx out of icu yesterday Vital Signs: Vital Signs Vital Signs Date Time Temp Pulse Resp B/P (MAP) Pulse Ox O2 Delivery O2 Flow Rate FiO2 10/07/20 03:40 97.7 55 22 112/67 (82) 98 Nasal Cannula 3.0 97.7 Physical Exam: PHYSICAL EXAM GENERAL: Alert, oriented x 3, pleasant male, lying in bed comfortably, in no acute distress. HEENT: Normocephalic, atraumatic. Anicteric. NECK: Supple. LUNGS: Decreased breath sounds at the bases. HDC catheter, right chest wall looks clean. HEART: Irregularly irregular, distant heart sounds. ABDOMEN: Mildly distended. Bowel sounds present, nontender, nondistended. EXTREMITIES: Bilateral lower extremity edema. Anasarca no cyanosis. Mild right lower extremity redness present. DERMATOLOGIC: Multiple skin breakdown, superficial bruises. No warmth. No generalized rash. Sacral decubItus not infected NEUROLOGIC: Alert, oriented x 3. Grossly nonfocal. Has generalized weakness. PSYCHIATRIC: Calm, cooperative. Medications: Inpatient Meds: Medications reviewed. Labs: Lab Laboratory Tests Test 10/06/20 11:56 10/06/20 12:30 10/06/20 16:30 10/06/20 19:00 Glucose (Fingerstick) 94 mg/dL (70-99) 122 mg/dL (70-99) Activated Partial Thromboplast Time 81 SEC (24-38) 83 SEC (24-38) Test 10/06/20 21:24 10/07/20 05:00 10/07/20 07:34 Glucose (Fingerstick) 106 mg/dL (70-99) 99 mg/dL (70-99) Activated Partial Thromboplast Time 57 SEC (24-38) Objective: Assessment: 1. Sepsis. 2. Leukocytosis. 3. Hypotension. 4. Gram-positive bacteremia. 5. Bilateral lower extremity swelling with right lower extremity cellulitis 6. Atrial fibrillation.Congestive heart failure. 7. End-stage renal disease, on hemodialysis. 8. Cirrhosis. 9. Diabetes mellitus. 10. Pressure ulcer. 11. Obstructive sleep apnea, on home O2. 12. Anemia. 13. Elevated troponin, demand ischemia. 14. Anasarca. Plan: Plan of Care 1. Continue Zosyn and vancomycin. Renal dosing 2. Follow up GPC in blood cultures. Still pending 3. Follow-up repeat blood cultures. 4. May need HD catheter removal depending on ID of GPC. 5. Continue supportive care. 6. Continue local wound care. Offload ROBERT HARTMANN MD Oct 07, 2020 08:42
--- NOTE | 2020-10-07 09:23 | PDOC ---
DATE OF SERVICE DATE: 10/07/20 TIME: 09:19 SUBJECTIVE ROS Stable, transferred out of ICU No new concerns , breathing stable OBJECTIVE Vital Signs Vital Signs Date Time Temp Pulse Resp B/P (MAP) Pulse Ox O2 Delivery O2 Flow Rate FiO2 10/07/20 07:00 97.9 59 22 113/51 (71) 97 Nasal Cannula 3.0 97.9 I & 0 Intake and Output 10/07/20 07:00 Intake Total 1305 ml Balance 1305 ml Intake Oral 720 ml IV Total 585 ml # Bowel Movements 1 PHYSICAL EXAM Physical Exam General NAD HEEN OM moist, On O2 by NC Neck supple Lungs decreased at bases, non labored CV S1S2 Abd- Distended , NT , BS + Ext LE edema Bilat ++ Neuro Grossly Normal Derm No Rash No de la paz, No CVA or SP tenderness Psych Cooperative DIAGNOSIS/ASSESSMENT Assessment & Plan ESRD - on HD TTS under Dr. Lopez at [facility], seen during treatment , tolerating well. Continue as ordered, Tyler Francis Right lower extremity cellulitis- management per primary Anasarca Cardiac/ HypoAlbuminemia/ Hemodynamic instability - Cxr - Central vascular congestion. Abdominal distension-US abdomen- Moderate ascites. GI consulted Right pleural effusion Right buttock ulcers concerning for pressure ulcers Atrial fibrillation on Eliquis History of diabetes mellitus type 2 Hx of Hypertension currently Low BP Hx of CABG ALESIA- stopped using CPAP recently ,On Home O2 Anemia continue ALICE COMMENT/RELEVANT DATA Meds Current Medications Medications (Trade) Dose Ordered Sig/Jose Start Time Stop Time Status Last Admin Dose Admin Acetaminophen (Tylenol) 650 mg PRN Q4HRS PRN 10/03/20 13:00 Acetaminophen/ Hydrocodone Bitart (Lortab 7.5/325) 1 tab PRN Q6HRS PRN 10/03/20 12:45 10/03/20 14:36 1 TAB Albumin Human 200 ml @ 200 mls/hr 1X PRN PRN 10/07/20 07:45 10/07/20 13:44 Aspirin (Ecotrin) 325 mg 1X ONCE 10/03/20 09:45 10/03/20 09:49 DC 10/03/20 12:18 325 MG Atorvastatin Calcium (Lipitor) 40 mg HS 10/03/20 21:00 10/06/20 21:07 40 MG Darbepoetin Dariel (ARANESP for DIALYSIS PTS) 60 mcg Mo 10/05/20 21:00 10/05/20 21:09 60 MCG Dextrose (Dextrose 50%-Water Syringe) 12.5 gm PRN Q15MIN PRN 10/03/20 13:00 Diphenhydramine HCl (Benadryl) 25 mg 1X PRN PRN 10/04/20 08:15 10/05/20 08:14 DC Docusate Sodium (Colace) 100 mg PRN DAILY PRN 10/03/20 13:00 Dopamine HCl/ Dextrose 250 ml @ 19.688 mls/ hr CONT PRN 10/03/20 13:45 10/07/20 04:08 19.688 MLS/HR Gabapentin (Neurontin) 300 mg BID 10/03/20 21:00 10/06/20 21:07 300 MG Heparin Sodium (Porcine) (Heparin Sodium) 2,500 unit PRN Q6HRS PRN 10/03/20 17:00 Heparin Sodium/ Dextrose 250 ml @ 0 mls/hr CONT PRN 10/03/20 17:00 10/06/20 14:47 12 MLS/HR Info (Anti-Coagulation Monitoring By Pharmacy) 1 each PRN DAILY PRN 10/06/20 11:45 10/06/20 11:41 1 EACH Info (PHARMACY MONITORING -- do not chart) 1 each PRN DAILY PRN 10/07/20 07:45 Insulin Human Lispro (HumaLOG) 0-7 UNITS TIDWMEALS 10/03/20 17:00 Lactobacillus Rhamnosus (Culturelle) 1 cap BID 10/06/20 21:00 10/06/20 21:07 1 CAP Methocarbamol (Robaxin) 1,500 mg PRN Q6HRS PRN 10/03/20 13:45 Midodrine (Proamatine) 5 mg [id number] 10/03/20 13:30 10/03/20 13:47 DC 10/03/20 13:26 5 MG Morphine Sulfate (Morphine Sulfate) 2 mg PRN Q2HR PRN 10/03/20 13:00 10/04/20 12:59 DC Ondansetron HCl (Zofran) 4 mg PRN Q6HRS PRN 10/03/20 13:00 Pantoprazole Sodium (Protonix) 40 mg DAILYAC 10/04/20 07:30 10/06/20 07:56 40 MG Piperacillin Sod/ Tazobactam Sod 2.25 gm/Sodium Chloride 50 ml @ 100 mls/hr Q8HRS 10/03/20 14:00 10/07/20 05:50 100 MLS/HR Piperacillin Sod/ Tazobactam Sod 3.375 gm/Sodium Chloride 50 ml @ 100 mls/hr Q6HRS 10/03/20 18:00 10/03/20 13:07 DC Piperacillin Sod/ Tazobactam Sod 4.5 gm/Sodium Chloride 100 ml @ 200 mls/hr 1X ONCE 10/03/20 07:45 10/03/20 08:14 DC 10/03/20 08:47 200 MLS/HR Prochlorperazine Edisylate (Compazine) 10 mg PRN Q6HRS PRN 10/03/20 13:00 Sennosides (Senna) 17.2 mg PRN BID PRN 10/03/20 13:00 Sodium Chloride 1,000 ml @ 400 mls/hr Q2H30M PRN 10/07/20 07:45 10/07/20 19:44 Vancomycin HCl (Vanco Per Pharmacy) 1 each PRN DAILY PRN 10/03/20 13:00 10/06/20 11:29 1 EACH Vancomycin HCl (Vancomycin Random Level) 1 each 1X ONCE 10/05/20 06:00 10/05/20 06:01 DC 10/05/20 06:00 1 EACH Vancomycin HCl 1.5 gm/Sodium Chloride 500 ml @ 250 mls/hr 1X ONCE 10/03/20 13:15 10/03/20 15:14 DC 10/03/20 14:04 250 MLS/HR Vancomycin HCl 500 mg/Sodium Chloride 100 ml @ 100 mls/hr QTUTHSA 10/05/20 16:00 10/05/20 18:17 100 MLS/HR Vitamin D (Vitamin D3) 2,000 unit DAILY 10/04/20 09:00 10/06/20 07:56 2,000 UNIT Lab Laboratory Tests Test 10/06/20 11:56 10/06/20 12:30 10/06/20 16:30 10/06/20 19:00 Glucose (Fingerstick) 94 mg/dL (70-99) 122 mg/dL (70-99) Activated Partial Thromboplast Time 81 SEC (24-38) 83 SEC (24-38) Test 10/06/20 21:24 10/07/20 05:00 10/07/20 07:34 Glucose (Fingerstick) 106 mg/dL (70-99) 99 mg/dL (70-99) Activated Partial Thromboplast Time 57 SEC (24-38) Results All relevant outside records, renal labs, imaging studies, telemetry/EKG's were reviewed. Justicifation of Admission Dx: Justifications for Admission: Justification of Admission Dx: N/A MIMI LUX MD Oct 07, 2020 09:23
--- NOTE | 2020-10-07 10:33 | PDOC ---
Date of Service: DATE: 10/07/20 TIME: 10:20 Subjective: Subjective: Feels fine, abdomen feels the same. Objective: Objective: Reviewed meds - ?remains on Heparin Vital Signs: Vital Signs Date Time Temp Pulse Resp B/P (MAP) Pulse Ox O2 Delivery O2 Flow Rate FiO2 10/07/20 07:00 97.9 59 22 113/51 (71) 97 Nasal Cannula 3.0 97.9 Labs: Laboratory Tests Test 10/06/20 11:56 10/06/20 12:30 10/06/20 16:30 10/06/20 19:00 Glucose (Fingerstick) 94 mg/dL 122 mg/dL Activated Partial Thromboplast Time 81 SEC 83 SEC Test 10/06/20 21:24 10/07/20 05:00 10/07/20 07:34 Glucose (Fingerstick) 106 mg/dL 99 mg/dL Activated Partial Thromboplast Time 57 SEC BLOOD CULTURE Preliminary NO GROWTH AFTER 4 DAYS Imaging: Echocardiogram 10/04 Other Information Quality : Average HR: 61bpm Rhythm : NSR INDICATION Hypertension/HCVD Surgery/Intervention Status/Post Aortic Valve Replacement: Bioprosthetic CABG RISK FACTORS Hypertension 2D DIMENSIONS Left Atrium(2D) 5.1 (1.6-4.0cm) IVSd 1.2 (0.7-1.1cm) Aortic Root(2D) 2.6 (2.0-3.7cm) LVDd 4.4 (3.9-5.9cm) LVOT Diameter 1.9 (1.8-2.4cm) PWd 1.2 (0.7-1.1cm) LVDs 2.9 (2.5-4.0cm) FS (%) 34.2 % SV 54.8 ml LVEF(%) 63.4 (>50%) Aortic Valve AoV Peak Latrell. 255.2cm/s AoV VTI 54.5cm AO Peak GR. 26.1mmHg LVOT Peak Latrell. 105.1cm/s AO Mean GR. 16mmHg PAO (VMAX) 1.13cm2 Mitral Valve MV E Velocity 148.4cm/s MV E Peak Gr. 9mmHg MV DECEL TIME 153ms MV A Velocity 22.6cm/s MV E Mean Gr. 3mmHg E/A Ratio 6.6 Pulmonary Valve PV Peak Velocity 82.7cm/s Tricuspid Valve TR P. Velocity 325cm/s TR Peak Gr. 42mmHg LEFT VENTRICLE The left ventricle is normal size. There is mild concentric left ventricular hypertrophy. The left ventricular systolic function is low normal with an estimated ejection fraction of 50%. There is septal hypokinesis No left ventri luis thrombus noted on this study. There is no ventricular septal defect visualized. There is no left ventricular aneurysm. There is no mass noted in the left ventricle. RIGHT VENTRICLE The right ventricle is mildly dilated. There is normal right ventricular wall thickness. Systolic function is mildly reduced. ATRIA The left atrium is moderately dilated. The right atrium is moderately dilated. The interatrial septum is intact with no evidence for an atrial septal defect or patent foramen ovale as noted on 2-D or Doppler imaging. AORTIC VALVE The aortic valve opens well. Doppler and Color Flow revealed no significant aortic regurgitation. There is no significant aortic valvular stenosis. There is no aortic valvular vegetation. MITRAL VALVE Mitral annular calcification is mild. There is no evidence of mitral valve prolapse. There is no mitral valve stenosis. Doppler and Color-flow revealed mild mitral regurgitation. TRICUSPID VALVE The tricuspid valve is normal in structure and function. Doppler and Color Flow revealed mild to moderate tricuspid regurgitation. There is no tricuspid valve prolapse or vegetation. There is no tricuspid valve stenosis. PULMONIC VALVE The pulmonary valve is normal in structure and function. Trivial pulmonic regurgitation There is no pulmonic valvular stenosis. GREAT VESSELS The aortic root is normal in size. The ascending aorta is normal in size. The pulmonary artery is normal. IVC is dilated with blunted inspiratory response PERICARDIAL EFFUSION Pleural effusion noted. There is no evidence of significant pericardial effusion. <Conclusion> The left ventricle is normal size. The left ventricular systolic function is low normal with an estimated ejection fraction of 50%. There is mild septal hypokinesis There is mild concentric left ventricular hypertrophy. Doppler and Color Flow revealed no significant aortic regurgitation. There is no significant aortic valvular stenosis. Doppler and Color-flow revealed mild mitral regurgitation. Doppler and Color Flow revealed mild to moderate tricuspid regurgitation. PE: GEN: dialyzing LUNGS: breathing seems a bit more labored today, has NC 3L HEART: irregular ABD: distended - worse today? NEURO/PSYCH: A & O 3, pleasant A/P: ?GPC bacteremia - on atbx CAD, A Fib, ESRD on HD, s/p AVR Anasarca/?ascites, splenomegaly, right pleural effusion - h/o alcohol overuse Chronic anemia (stable - receives Venofer at outpt HD), GERD (on PPI), Crohn's (last Humira 09/29) -- AFP normal, echo as above. D/w Dr. Nowak - check CT re: ascites. Justicifation of Admission Dx: Justifications for Admission: Justification of Admission Dx: N/A KAYLI GILL Oct 07, 2020 10:33
--- NOTE | 2020-10-07 12:18 | PDOC ---
[facility] PROGRESS NOTE Date of Service DOS: DATE: 10/07/20 TIME: 12:11 Chief Complaint Chief Complaint Sepsis Hemodynamic instability Right lower extremity cellulitis Acute volume overload Elevated troponins, likely type II demand ischemia, possible NSTEMI Anasarca Acute electrolyte derangement due to ESRD Right buttock ulcers concerning for pressure ulcers Concern for caregiver burden ESRD TTS Atrial fibrillation on Eliquis History of diabetes mellitus type 2 Dyslipidemia Hypertension CABG ALESIA Anemia due to ESRD Obesity class I Admit to telemetry with hospitalist to manage Cardiology consult for non-STEMI Nephrology consult for hemodialysis We will likely start p.o. vasopressor midodrine in the meantime if there is no response, will likely need to start vasopressor or remove more fluid Continue empiric IV antibiotics Pending blood cultures Strict I's and O's Avoid nephrotoxic agents Heparin drip for DVT prophylaxis Protonix GI prophylaxis ADA diet Full code Discussed with RN and SW Disposition patient management as above Surrogate decision maker is History of Present Illness History of Present Illness 74 year old male who presents to the ER via EMS with generalized weakness. The patient has a history of Afib, CHF, CKD, and currently receives dialysis. The patient reports that he started feeling fatigued and weak yesterday. He also reports that his BP was in the 80/40 range yesterday. This morning the patient felt too weak to walk which is what brought him to the ER. He reports right lower extremity erythema, bilateral lower extremity edema, abdominal edema, and diarrhea. The patient denies any pain or SOB at this time. 10/07/2020: Patient moved out of ICU to medical floors. In ICU, evaluation. No significant improvement in her cellulitis. Still on dopamine infusion; continue to wean. Discussed with GI, will obtain CT abdomen/pelvis for definitive impression about ascites. Discussed with Dr. Ruff, unsure how much urine patient makes at baseline, and if adding diuretics will be beneficial for any noted ascites. Continue treatment of cellulitis and staph bacteremia, per ID. 30 minutes critical care spent reviewing charts, reviewing labs, reviewing imaging, and discussion with consultants. 10/06/2020: Patient seen in ICU sitting upright in chair. States he feels well, currently breathing on 3 L nasal cannula. Discussed with Gastroenterology PA, further work-up pending to rule in or rule out cirrhosis. Limited abdominal Doppler showed no focal liver lesion, normal hepatopedal flow in the main, right and left portal veins. Patient had positive cultures with gram-positive cocci in 1 of 4 bottles; ID was consulted. Patient does note some improvement in his erythema, now below the right knee. We will continue Zosyn and vancomycin for now. He remains on dopamine infusion. 30 minutes critical care time spent reviewing charts, reviewing labs, reviewing imaging, discussion with GI, and discussion with RN. 10/05/2020: Patient seen in ICU, remains on vasopressors. Afebrile, breathing 3 L nasal cannula. Per cardiology, elevated troponins likely due to demand ischemia in this clinical setting. We will continue current treatment, Zosyn and vancomycin. Continue supportive care. Spoke with patient's by phone and addressed her concerns. Critical care time 30 minutes spent reviewing charts, reviewing labs, reviewing imaging, discussion with RN. 10/04/2020: Patient seen in ICU, afebrile. Currently breathing on 3 L nasal cannula and requiring vasopressors. Has no complaints today. Admits to some chronic diarrhea secondary to his history of Crohn's disease. Continue treatment cellulitis with Zosyn and vancomycin. Denies any sick contacts at [facility]. Critical care time 30 minutes spent reviewing charts, reviewing labs, reviewing imaging, discussion with RN. Vitals/I&O Vitals/I&O: Vital Signs Date Time Temp Pulse Resp B/P (MAP) Pulse Ox O2 Delivery O2 Flow Rate FiO2 10/07/20 08:00 Nasal Cannula 3.0 10/07/20 07:00 97.9 59 22 113/51 (71) 97 97.9 I & O 10/06/20 10/06/20 10/07/20 15:00 23:00 07:00 Intake Total 300 ml 285 ml 720 ml Balance 300 ml 285 ml 720 ml Physical Exam Physical Exam: GENERAL: Alert, oriented x 3, pleasant male, lying in bed comfortably, in no acute distress. HEENT: Normocephalic, atraumatic. Anicteric. NECK: Supple. LUNGS: Decreased breath sounds at the bases. HDC catheter, right chest wall looks clean. HEART: Irregularly irregular, distant heart sounds. ABDOMEN: Mildly distended. Bowel sounds present, nontender, nondistended. EXTREMITIES: Bilateral lower extremity edema. Anasarca no cyanosis. Mild right lower extremity redness present. DERMATOLOGIC: Multiple skin breakdown, superficial bruises. No warmth. No generalized rash. Sacral decubItus not infected NEUROLOGIC: Alert, oriented x 3. Grossly nonfocal. Has generalized weakness. PSYCHIATRIC: Calm, cooperative. General: mild distress Heart: Other (Irregular rhythm) Lungs: Clear Abdomen: Normal bowel sounds Extremities: No clubbing, No cyanosis Skin: Other (Bilateral lower extremity erythema, right greater than left.) Labs Labs: Laboratory Tests Test 10/06/20 12:30 10/06/20 16:30 10/06/20 19:00 10/06/20 21:24 Activated Partial Thromboplast Time 81 SEC (24-38) 83 SEC (24-38) Glucose (Fingerstick) 122 mg/dL (70-99) 106 mg/dL (70-99) Test 10/07/20 05:00 10/07/20 07:34 Activated Partial Thromboplast Time 57 SEC (24-38) Glucose (Fingerstick) 99 mg/dL (70-99) Assessment and Plan Assessmemt and Plan Problems Medical Problems: (1) Cellulitis of right lower extremity Status: Acute (2) End-stage renal disease on hemodialysis Status: Acute (3) Hypotension Status: Acute Comment Review of Relevant I have reviewed the following items bernadine (where applicable) has been applied. Medications: Current Medications Medications (Trade) Dose Ordered Sig/Jose Route PRN Reason Start Time Stop Time Status Last Admin Dose Admin Lactobacillus Rhamnosus (Culturelle) 1 cap BID PO 10/06/20 21:00 10/06/20 21:07 Justifications for Admission Other Justification Sepsis, right lower extremity cellulitis SANDY COOLEY MD Oct 07, 2020 12:18
--- NOTE | 2020-10-07 12:43 | PDOC ---
NEDRA LOPEZ SHEAR GRINDER OPERATOR 10/07/20 1243: CARDIO Progress Notes Date and Time Date of Service 10/07/20 Time of Evaluation 1230 Subjective Subjective: No Chest Pain, No shortness of breath, No Palpitations Vitals Vitals Vital Signs Date Time Temp Pulse Resp B/P (MAP) Pulse Ox O2 Delivery O2 Flow Rate FiO2 10/07/20 08:00 Nasal Cannula 3.0 10/07/20 07:00 97.9 59 22 113/51 (71) 97 97.9 Weight Weight [ ] Input and Output Intake and Output Intake and Output 10/07/20 07:00 Intake Total 1305 ml Balance 1305 ml Intake Oral 720 ml IV Total 585 ml # Bowel Movements 1 Laboratory Labs Laboratory Tests Test 10/06/20 12:30 10/06/20 16:30 10/06/20 19:00 10/06/20 21:24 Activated Partial Thromboplast Time 81 SEC (24-38) 83 SEC (24-38) Glucose (Fingerstick) 122 mg/dL (70-99) 106 mg/dL (70-99) Test 10/07/20 05:00 10/07/20 07:34 Activated Partial Thromboplast Time 57 SEC (24-38) Glucose (Fingerstick) 99 mg/dL (70-99) Microbiology Micro Microbiology 10/03/20 Blood Culture - Preliminary, Resulted NO GROWTH AFTER 4 DAYS Physical Exam HEENT: Neck Supple W Full Motion Chest: Symmetric LUNGS: Other (diminished bases) Heart: irregularly irregular (AFIB- rate controlled ) Abdomen: Other (soft) Extremities: Other (anasarca) Neurology: alert, oriented, follow commands Other Exams Sacral decubitus Assessment Assessment 1. Leukocytosis, sepsis, bacteremia. BC with GPC 1/4 2. NSTEMI; troponin highest 5.4. Echo with ejection fraction of 50% with mild mitral vegetation and mild to moderate tricuspid regurgitation. Possibly type II, demand ischemia. On heparin gtt. 3. CAD s/p CABG 2018. Follows with [place] cardiology, Dr. Jimenez 4. Acute on chronic diastolic CHF; Echo 2019 with LVEF 50% 5. Permanent AFIB: rate controlled. Not on BB due to bradycardia. On Eliquis 6. Hx of asymptomatic bradycardia 6. Hyperlipidemia; statin 7. Diabetes, II 8. H/o hypertension; presently low-end on Dopamine gtt 9. History of a CVA 10. ESRD on HD 11. Crohn's Disease; chronic immunosuppression with Humira 12. s/p bioprosthetic AVR 13. Anemia Recommendations Discontinue heparin gtt Add midodrine Titrate off Dopamine gtt as able Fluid offloading via HD Secondary prevention as able Continue statin. Add ASA No AV peter blocking agents. No ACEi/ARB with hypotension Obtain cardiac records from the [place] Will need further ischemic evaluation Supportive Justicifation of Admission Dx: Justifications for Admission: Justification of Admission Dx: N/A VELVET BAZAN MD 10/07/20 1732: CARDIO Progress Notes Assessment Assessment Patient seen and evaluated. I agree with our nurse practitioners assessment and plan. Leukocytosis, sepsis, bacteremia. BC with GPC 1/4 NSTEMI; troponin highest 5.4. Echo with ejection fraction of 50% with mild mitral vegetation and mild to moderate tricuspid regurgitation. Possibly type II, demand ischemia. Will discontinue heparin. CAD s/p CABG 2019. Follows with [place] cardiology, Dr. Jimenez Acute on chronic diastolic CHF; Echo 2019 with LVEF 50% Permanent AFIB: rate controlled. Not on BB due to bradycardia. On Eliquis Hyperlipidemia; statin H/o hypertension; presently low-end on Dopamine gtt. add midodrine ESRD on HD Crohn's Disease; chronic immunosuppression with Humira s/p bioprosthetic AVR NEDRA LOPEZ APRN Oct 07, 2020 12:43 VELVET BAZAN MD Oct 07, 2020 17:32
--- NOTE | 2020-10-07 13:39 | NUR ---
SS following up with discharge planning. SS reviewed pt chart and discussed with pt RN. Pt is currently requiring oxygen at three liters nasal canula. Pt has home oxygen. Pt on IV Zosyn. Dopamine and Heparin discontinued. PT/OT ordered. PT recommended shelter unit. Pt declining shelter unit at this time and is agreeable to home healthcare with no preference of company. SS will continue to follow for discharge planning.
[2020-10-07] MEDS: CHOLECALCIFEROL (VITAMIN D3) 1,000 UNIT TABLET PO SCH (13:44)
[2020-10-07] MEDS: LACTOBACILLUS RHAMNOSUS GG 1 CAPSULE. PO SCH ×2 (13:44→21:27)
[2020-10-07] MEDS: PANTOPRAZOLE 40 MG TABLET.DR. PO SCH (13:44)
[2020-10-07] MEDS: GABAPENTIN 300 MG CAPSULE. PO SCH ×2 (13:45→21:27)
[2020-10-07] MEDS: VANCOMYCIN PER PHARMACY MC PRN (13:55)
[2020-10-07] MEDS: MIDODRINE 5 MG TABLET PO SCH ×2 (15:02→17:43)
--- NOTE | 2020-10-07 17:31 | RAD ---
Exam: CT abdomen/pelvis without intravenous contrast Indication: Ascites versus anasarca Comparison: CT abdomen pelvis 07/24/2017 Technique: Helical CT imaging performed of the abdomen and pelvis without the use of intravenous cont rast. Sagittal and coronal reformats were obtained. One or more of the following individualized dose reduction techniques were utilized for this examinat ion: 1. Automated exposure control 2. Adjustment of the mA and/or kV according to patient size 3. Use of iterative reconstruction technique. Findings: Inherently limited evaluation without intravenous contrast. Lower chest: There are small bilateral pleural effusions, increased in size. The effusion on the left is partially loculated in appearance. There are mild confluent opacities in the lung bases, likely a telectasis. Heart is normal in size. There are changes of median sternotomy. Liver: Unremarkable noncontrast appearance of the liver. Gallbladder/Biliary Tree: There are cholecystectomy clips. No biliary duct dilatation. Pancreas: Mild pancreatic atrophy. Spleen: The spleen is mildly enlarged measuring 16 cm in length. Adrenal Glands: Normal. Kidneys/Ureters/Bladder: Kidneys are mildly atrophic. No hydronephrosis or nephrolithiasis. There is a 3.5 cm exophytic cyst at the mid left kidney, unchanged in size. There is increased in density whic h is likely due to artifact. Ureters are normal. The bladder is decompressed. Reproductive Organs: Prostate gland is unremarkable. Stomach, small bowel, and colon: Stomach is normal. There is no small bowel obstruction. There are dobson rgical changes of the right hemicolon. Vasculature: Abdominal aorta is normal in caliber. There is moderate calcified aortoiliac atheroscler osis. Lymph Nodes: No lymphadenopathy. Peritoneum and retroperitoneum: Large amount of free fluid in the abdomen. No free air. Bones: The bones are diffusely demineralized. There are changes of posterior fusion at L1-L5 spanning a L3 burst fracture. Hardware is unchanged in appearance. There is severe degenerative disc disease. There are old compression fractures at T9, T11, and T12. There is a new fracture of the S5 segment o f the sacrum, likely old but new from 2018. Miscellaneous: Moderate anasarca. Impression: 1. Large volume ascites. 2. Mildly splenomegaly. 3. Anasarca. 4. Increased, small pleural effusions. The small left pleural effusion appears partially loculated. 5. Osteopenia. Multiple old thoracic compression fractures. Probable old fracture of the sacrum, new from 2018. Electronically signed by: Sherrie Leo MD (10/07/2020 5:29 PM) [id number]
[2020-10-07] MEDS: ASPIRIN ENTERIC COATED 81 MG TABLET.DR. PO SCH (17:42)
[2020-10-07] MEDS: VANCOMYCIN 500 MG in IV NORMAL SALINE 100ML 100 ML IV SCH (17:46)
[2020-10-07] MEDS ORDERED: MIDAZOLAM HCL/PF 2 MG/2 ML VIAL. ONE (21:16)
[2020-10-07] MEDS ORDERED: KETAMINE HCL IN NACL, ISO-OSM 50 MG/5 ML SYRINGE ONE (21:17)
[2020-10-07] MEDS ORDERED: fentaNYL PF VIAL 250 MCG/5 ML VIAL ONE (21:17)
[2020-10-07] MEDS: ATORVASTATIN CALCIUM 40 MG TABLET. PO SCH (21:27)
[2020-10-07] MEDS ORDERED: LIDOCAINE 2% PF 5 ML VIAL. ONE (23:32)
[2020-10-07] MEDS ORDERED: PROPOFOL 10 MG/ML (20ML) VIAL. IV ONE (23:32)
[2020-10-08] VITALS (12 sets, daily range): BP systolic 94–116; BP diastolic 39–55
[2020-10-08] MEDS: PANTOPRAZOLE 40 MG TABLET.DR. PO SCH (06:01)
[2020-10-08] MEDS: PIPERACILLIN/TAZOBACTAM 2.25 GM in IV NORMAL SALINE 50ML 50 ML IV SCH ×3 (06:01→22:32)
[2020-10-08] MEDS: MIDODRINE 5 MG TABLET PO SCH ×3 (06:02→17:33)
[2020-10-08] MEDS: INSULIN LISPRO 300 UNITS/3 ML VIAL. SQ SCH ×2 (08:00→12:00)
[2020-10-08 08:05] LABS: HEMATOCRIT 28.9 % (39.0-53.0); HEMOGLOBIN 9.2 g/dL (13.0-17.5); RED BLOOD COUNT 2.99 x10^6/uL (4.30-5.70); RED CELL DISTRIBUTION WIDTH 16.2 % (11.5-14.5); WHITE BLOOD COUNT 4.3 x10^3/uL (4.0-11.0)
[2020-10-08] MEDS: CHOLECALCIFEROL (VITAMIN D3) 1,000 UNIT TABLET PO SCH (08:26)
[2020-10-08] MEDS: ASPIRIN ENTERIC COATED 81 MG TABLET.DR. PO SCH (08:26)
[2020-10-08] MEDS: GABAPENTIN 300 MG CAPSULE. PO SCH ×2 (08:26→20:13)
[2020-10-08] MEDS: LACTOBACILLUS RHAMNOSUS GG 1 CAPSULE. PO SCH ×2 (08:26→20:13)
--- NOTE | 2020-10-08 08:28 | PDOC ---
Infectious Disease Note Subjective: Subjective pt says feels better Vital Signs: Vital Signs Vital Signs Date Time Temp Pulse Resp B/P (MAP) Pulse Ox O2 Delivery O2 Flow Rate FiO2 10/08/20 07:40 Nasal Cannula 3.0 10/08/20 07:00 97.7 53 18 108/53 (71) 99 97.7 Physical Exam: PHYSICAL EXAM GENERAL: Alert, oriented x 3, pleasant male, lying in bed comfortably, in no acute distress. HEENT: Normocephalic, atraumatic. Anicteric. Dry eschar upper lip NECK: Supple. LUNGS: Decreased breath sounds at the bases. HDC catheter, right chest wall looks clean. HEART: Irregularly irregular, distant heart sounds. ABDOMEN: Mildly distended. Bowel sounds present, nontender, nondistended. EXTREMITIES: Bilateral lower extremity edema. Anasarca no cyanosis. Mild right lower extremity redness present. DERMATOLOGIC: Multiple skin breakdown, superficial bruises. No warmth. No generalized rash. Sacral decubItus not infected NEUROLOGIC: Alert, oriented x 3. Grossly nonfocal. Has generalized weakness. PSYCHIATRIC: Calm, cooperative. Medications: Inpatient Meds: Medications reviewed. Labs: Lab Laboratory Tests Test 10/07/20 12:25 10/07/20 13:32 10/07/20 17:03 10/07/20 20:35 Activated Partial Thromboplast Time 128 SEC (24-38) Glucose (Fingerstick) 94 mg/dL (70-99) 83 mg/dL (70-99) 109 mg/dL (70-99) Test 10/08/20 07:15 10/08/20 07:22 White Blood Count 4.3 x10^3/uL (4.0-11.0) Red Blood Count 2.99 x10^6/uL (4.30-5.70) Hemoglobin 9.2 g/dL (13.0-17.5) Hematocrit 28.9 % (39.0-53.0) Mean Corpuscular Volume 97 fL (79-100) Mean Corpuscular Hemoglobin 31 pg (25-35) Mean Corpuscular Hemoglobin Concent 32 g/dL (31-37) Red Cell Distribution Width 16.2 % (11.5-14.5) Platelet Count 153 x10^3/uL (140-400) Glucose (Fingerstick) 83 mg/dL (70-99) Objective: Assessment: 1. Sepsis. 2. Leukocytosis. 3. Hypotension. 4. Gram-positive bacteremia. 5. Bilateral lower extremity swelling with right lower extremity cellulitis 6. Atrial fibrillation.Congestive heart failure. 7. End-stage renal disease, on hemodialysis. 8. Cirrhosis. 9. Diabetes mellitus. 10. Pressure ulcer. 11. Obstructive sleep apnea, on home O2. 12. Anemia. 13. Elevated troponin, demand ischemia. 14. Anasarca. Plan: Plan of Care 1. Continue Zosyn and vancomycin. Renal dosing 2. Follow up GPC in blood cultures. ID is still pending 3. Follow-up repeat blood cultures. 4. May need HD catheter removal depending on ID of GPC. 5. Continue supportive care. 6. Continue local wound care. Offload ROBERT HARTMANN MD Oct 08, 2020 08:28
--- NOTE | 2020-10-08 09:34 | PDOC ---
Date of Service: DATE: 10/08/20 TIME: 09:29 Subjective: Subjective: Abdomen is uncomfortable. Tolerating diet. Breathing okay. Objective: Objective: D/w Dr. Nowak and nurse Rashad - no longer on Heparin drip. Vital Signs: Vital Signs Date Time Temp Pulse Resp B/P (MAP) Pulse Ox O2 Delivery O2 Flow Rate FiO2 10/08/20 07:40 Nasal Cannula 3.0 10/08/20 07:00 97.7 53 18 108/53 (71) 99 97.7 Labs: Laboratory Tests Test 10/07/20 12:25 10/07/20 13:32 10/07/20 17:03 10/07/20 20:35 Activated Partial Thromboplast Time 128 SEC Glucose (Fingerstick) 94 mg/dL 83 mg/dL 109 mg/dL Test 10/08/20 07:15 10/08/20 07:22 White Blood Count 4.3 x10^3/uL Red Blood Count 2.99 x10^6/uL Hemoglobin 9.2 g/dL Hematocrit 28.9 % Mean Corpuscular Volume 97 fL Mean Corpuscular Hemoglobin 31 pg Mean Corpuscular Hemoglobin Concent 32 g/dL Red Cell Distribution Width 16.2 % Platelet Count 153 x10^3/uL Glucose (Fingerstick) 83 mg/dL BLOOD CULTURE Final NO GROWTH AFTER 5 DAYS Imaging: CT A/P 10/07 Impression: 1. Large volume ascites. 2. Mildly splenomegaly. 3. Anasarca. 4. Increased, small pleural effusions. The small left pleural effusion appears partially loculated. 5. Osteopenia. Multiple old thoracic compression fractures. Probable old fracture of the sacrum, new from 2018. PE: GEN: NAD LUNGS: breathing seems mildly labored HEART: RRR ABD: distended/tight NEURO/PSYCH: A & O 3, pleasant per usual A/P: ?GPC bacteremia - on atbx CAD, A Fib, ESRD on HD, s/p AVR Suspected cirrhosis w/ nasarca/ascites, splenomegaly, and h/o alcohol overuse Chronic anemia (on ASA, receives Venofer at outpt HD), GERD (on PPI), Crohn's (last Humira 09/29/20) -- Recheck INR and will request paracentesis w/ fluid studies. Justicifation of Admission Dx: Justifications for Admission: Justification of Admission Dx: N/A KAYLI GILL Oct 08, 2020 09:34
--- NOTE | 2020-10-08 10:09 | PDOC ---
DATE OF SERVICE DATE: 10/08/20 TIME: 10:08 SUBJECTIVE ROS No new concerns , breathing stable OBJECTIVE Vital Signs Vital Signs Date Time Temp Pulse Resp B/P (MAP) Pulse Ox O2 Delivery O2 Flow Rate FiO2 10/08/20 07:40 Nasal Cannula 3.0 10/08/20 07:00 97.7 53 18 108/53 (71) 99 97.7 I & 0 Intake and Output 10/08/20 07:00 Intake Total 500 ml Balance 500 ml Intake Oral 500 ml # Voids 1 # Bowel Movements 4 PHYSICAL EXAM Physical Exam General NAD HEEN OM moist, On O2 by NC Neck supple Lungs decreased at bases, non labored CV S1S2 Abd- Distended , NT , BS + Ext LE edema Bilat ++ Neuro Grossly Normal Derm No Rash No de la paz, No CVA or SP tenderness Psych Cooperative DIAGNOSIS/ASSESSMENT Assessment & Plan ESRD - on HD TTS under Dr. Lopez at [facility], seen during treatment , tolerating well. Currently no indication for HD today Right lower extremity cellulitis- management per primary Anasarca Cardiac/ HypoAlbuminemia/ Hemodynamic instability - Cxr - Central vascular congestion. Abdominal distension-US abdomen- Moderate ascites on US; Large Vol ascites reported on CT . Defer to primary Right pleural effusion Right buttock ulcers concerning for pressure ulcers Atrial fibrillation on Eliquis History of diabetes mellitus type 2 Hx of Hypertension currently Low BP Hx of CABG ALESIA- stopped using CPAP recently ,On Home O2 Anemia continue ALICE COMMENT/RELEVANT DATA Meds Current Medications Medications (Trade) Dose Ordered Sig/Jose Start Time Stop Time Status Last Admin Dose Admin Acetaminophen (Tylenol) 650 mg PRN Q4HRS PRN 10/03/20 13:00 Acetaminophen/ Hydrocodone Bitart (Lortab 7.5/325) 1 tab PRN Q6HRS PRN 10/03/20 12:45 10/03/20 14:36 1 TAB Albumin Human 200 ml @ 200 mls/hr 1X PRN PRN 10/07/20 07:45 10/07/20 13:44 DC Aspirin (Ecotrin) 81 mg [id number] 10/07/20 17:00 10/08/20 08:26 81 MG Atorvastatin Calcium (Lipitor) 40 mg HS 10/03/20 21:00 10/07/20 21:27 40 MG Darbepoetin Dariel (ARANESP for DIALYSIS PTS) 60 mcg Mo 7/20/21 21:00 10/05/20 21:09 60 MCG Dextrose (Dextrose 50%-Water Syringe) 12.5 gm PRN Q15MIN PRN 10/03/20 13:00 Diphenhydramine HCl (Benadryl) 25 mg 1X PRN PRN 10/04/20 08:15 10/05/20 08:14 DC Docusate Sodium (Colace) 100 mg PRN DAILY PRN 10/03/20 13:00 Dopamine HCl/ Dextrose 250 ml @ 19.688 mls/ hr CONT PRN 10/03/20 13:45 10/07/20 12:24 DC 10/07/20 04:08 19.688 MLS/HR Fentanyl Citrate (Fentanyl 5ml Vial) 250 mcg STK-MED ONCE 10/07/20 21:17 10/07/20 21:17 DC Gabapentin (Neurontin) 300 mg BID 10/03/20 21:00 10/08/20 08:26 300 MG Heparin Sodium (Porcine) (Heparin Sodium) 2,500 unit PRN Q6HRS PRN 10/03/20 17:00 10/07/20 12:24 DC Heparin Sodium/ Dextrose 250 ml @ 0 mls/hr CONT PRN 10/03/20 17:00 10/07/20 12:24 DC 10/06/20 14:47 12 MLS/HR Info (Anti-Coagulation Monitoring By Pharmacy) 1 each PRN DAILY PRN 10/06/20 11:45 10/06/20 11:41 1 EACH Info (PHARMACY MONITORING -- do not chart) 1 each PRN DAILY PRN 10/07/20 07:45 Insulin Human Lispro (HumaLOG) 0-7 UNITS TIDWMEALS 10/03/20 17:00 Ketamine HCl (Ketamine) 50 mg STK-MED ONCE 10/07/20 21:17 10/07/20 21:17 DC Lactobacillus Rhamnosus (Culturelle) 1 cap BID 10/06/20 21:00 10/08/20 08:26 1 CAP Lidocaine HCl (Lidocaine Pf 2% Vial) 5 ml STK-MED ONCE 10/07/20 23:32 10/07/20 23:32 DC Methocarbamol (Robaxin) 1,500 mg PRN Q6HRS PRN 10/03/20 13:45 Midazolam HCl (Versed) 2 mg STK-MED ONCE 10/07/20 21:16 10/07/20 21:17 DC Midodrine (Proamatine) 5 mg [id number] 10/07/20 13:00 10/08/20 06:02 5 MG Morphine Sulfate (Morphine Sulfate) 2 mg PRN Q2HR PRN 10/03/20 13:00 10/04/20 12:59 DC Ondansetron HCl (Zofran) 4 mg PRN Q6HRS PRN 10/03/20 13:00 Pantoprazole Sodium (Protonix) 40 mg DAILYAC 10/04/20 07:30 10/08/20 06:01 40 MG Piperacillin Sod/ Tazobactam Sod 2.25 gm/Sodium Chloride 50 ml @ 100 mls/hr Q8HRS 10/03/20 14:00 10/08/20 06:01 100 MLS/HR Piperacillin Sod/ Tazobactam Sod 3.375 gm/Sodium Chloride 50 ml @ 100 mls/hr Q6HRS 10/03/20 18:00 10/03/20 13:07 DC Piperacillin Sod/ Tazobactam Sod 4.5 gm/Sodium Chloride 100 ml @ 200 mls/hr 1X ONCE 10/03/20 07:45 10/03/20 08:14 DC 10/03/20 08:47 200 MLS/HR Prochlorperazine Edisylate (Compazine) 10 mg PRN Q6HRS PRN 10/03/20 13:00 Propofol (Diprivan) 200 mg STK-MED ONCE 10/07/20 23:32 10/07/20 23:32 DC Sennosides (Senna) 17.2 mg PRN BID PRN 10/03/20 13:00 Sodium Chloride 1,000 ml @ 400 mls/hr Q2H30M PRN 10/07/20 07:45 10/07/20 19:44 DC Vancomycin HCl (Vanco Per Pharmacy) 1 each PRN DAILY PRN 10/03/20 13:00 10/07/20 13:55 1 EACH Vancomycin HCl (Vancomycin Random Level) 1 each 1X ONCE 10/05/20 06:00 10/05/20 06:01 DC 10/05/20 06:00 1 EACH Vancomycin HCl 1.5 gm/Sodium Chloride 500 ml @ 250 mls/hr 1X ONCE 10/03/20 13:15 10/03/20 15:14 DC 10/03/20 14:04 250 MLS/HR Vancomycin HCl 500 mg/Sodium Chloride 100 ml @ 100 mls/hr QTUTHSA 10/05/20 16:00 10/07/20 17:46 100 MLS/HR Vitamin D (Vitamin D3) 2,000 unit DAILY 10/04/20 09:00 10/08/20 08:26 2,000 UNIT Lab Laboratory Tests Test 10/07/20 12:25 10/07/20 13:32 10/07/20 17:03 10/07/20 20:35 Activated Partial Thromboplast Time 128 SEC (24-38) Glucose (Fingerstick) 94 mg/dL (70-99) 83 mg/dL (70-99) 109 mg/dL (70-99) Test 10/08/20 07:15 10/08/20 07:22 White Blood Count 4.3 x10^3/uL (4.0-11.0) Red Blood Count 2.99 x10^6/uL (4.30-5.70) Hemoglobin 9.2 g/dL (13.0-17.5) Hematocrit 28.9 % (39.0-53.0) Mean Corpuscular Volume 97 fL (79-100) Mean Corpuscular Hemoglobin 31 pg (25-35) Mean Corpuscular Hemoglobin Concent 32 g/dL (31-37) Red Cell Distribution Width 16.2 % (11.5-14.5) Platelet Count 153 x10^3/uL (140-400) Glucose (Fingerstick) 83 mg/dL (70-99) Results All relevant outside records, renal labs, imaging studies, telemetry/EKG's were reviewed. Justicifation of Admission Dx: Justifications for Admission: Justification of Admission Dx: N/A MIMI LUX MD Oct 08, 2020 10:09
--- NOTE | 2020-10-08 10:12 | PDOC ---
CARDIO Progress Notes Date and Time Date of Service 10/08/2020 Time of Evaluation 0950 Subjective Subjective: No Chest Pain, No shortness of breath, No Palpitations Vitals Vitals Vital Signs Date Time Temp Pulse Resp B/P (MAP) Pulse Ox O2 Delivery O2 Flow Rate FiO2 10/08/20 07:40 Nasal Cannula 3.0 10/08/20 07:00 97.7 53 18 108/53 (71) 99 97.7 Weight Weight [ ] Input and Output Intake and Output Intake and Output 10/08/20 07:00 Intake Total 500 ml Balance 500 ml Intake Oral 500 ml # Voids 1 # Bowel Movements 4 Laboratory Labs Laboratory Tests Test 10/07/20 12:25 10/07/20 13:32 10/07/20 17:03 10/07/20 20:35 Activated Partial Thromboplast Time 128 SEC (24-38) Glucose (Fingerstick) 94 mg/dL (70-99) 83 mg/dL (70-99) 109 mg/dL (70-99) Test 10/08/20 07:15 10/08/20 07:22 White Blood Count 4.3 x10^3/uL (4.0-11.0) Red Blood Count 2.99 x10^6/uL (4.30-5.70) Hemoglobin 9.2 g/dL (13.0-17.5) Hematocrit 28.9 % (39.0-53.0) Mean Corpuscular Volume 97 fL (79-100) Mean Corpuscular Hemoglobin 31 pg (25-35) Mean Corpuscular Hemoglobin Concent 32 g/dL (31-37) Red Cell Distribution Width 16.2 % (11.5-14.5) Platelet Count 153 x10^3/uL (140-400) Glucose (Fingerstick) 83 mg/dL (70-99) Microbiology Micro Microbiology 10/03/20 Blood Culture - Final, Complete NO GROWTH AFTER 5 DAYS Physical Exam HEENT: Neck Supple W Full Motion Chest: Symmetric LUNGS: Other (diminished upper lung bean) Heart: irregularly irregular (AFIB- rate controlled ) Abdomen: Other (soft) Extremities: Other (anasarca) Neurology: alert, oriented, follow commands Assessment Assessment 1. Leukocytosis, sepsis, bacteremia. BC with GPC 1/4 2. NSTEMI; troponin highest 5.4. Echo with ejection fraction of 50% with mild mitral vegetation and mild to moderate tricuspid regurgitation. Possibly type II, demand ischemia. On heparin gtt. 3. CAD s/p CABG 2019. Follows with ID cardiology, Dr. Jimenez 4. Acute on chronic diastolic CHF; Echo 2019 with LVEF 50%, 5. Permanent AFIB: rate controlled. Not on BB due to bradycardia. 6. Hx of asymptomatic bradycardia: no pauses lowest rate at upper 30s otherwise mean at 50s 6. Hyperlipidemia; statin 7. Diabetes, II 8. H/o hypertension 9. History of a CVA 10. ESRD on HD 11. Crohn's Disease; chronic immunosuppression with Humira 12. s/p bioprosthetic AVR 13. Anemia: Hgb 9.2 14. Ascites: awaiting paracentesis today Recommendations continue midodrine Fluid offloading via HD Secondary prevention as able Continue statin. ASA. Eliquis on hold. Will check INR No AV peter blocking agents. No ACEi/ARB with hypotension Will need further ischemic evaluation. He follow with the ID. He will also need MCOT to further note any issues with tachy lita syndrome Justicifation of Admission Dx: Justifications for Admission: Justification of Admission Dx: N/A ADRIANNA RICE UTILITY MECHANIC Oct 08, 2020 10:12
--- NOTE | 2020-10-08 12:08 | PDOC ---
[employer] PROGRESS NOTE Date of Service DOS: DATE: 10/08/20 TIME: 12:03 Chief Complaint Chief Complaint Sepsis Hemodynamic instability Right lower extremity cellulitis Acute volume overload Elevated troponins, likely type II demand ischemia, possible NSTEMI Anasarca Acute electrolyte derangement due to ESRD Right buttock ulcers concerning for pressure ulcers Concern for caregiver burden ESRD TTS Atrial fibrillation on Eliquis History of diabetes mellitus type 2 Dyslipidemia Hypertension CABG ALESIA Anemia due to ESRD Obesity class I Large volume ascites Admit to telemetry with hospitalist to manage Cardiology consult for non-STEMI Nephrology consult for hemodialysis We will likely start p.o. vasopressor midodrine in the meantime if there is no response, will likely need to start vasopressor or remove more fluid Continue empiric IV antibiotics Pending blood cultures Strict I's and O's Avoid nephrotoxic agents Heparin drip for DVT prophylaxis Protonix GI prophylaxis ADA diet Full code Discussed with RN and SW Disposition patient management as above Surrogate decision maker is History of Present Illness History of Present Illness 74 year old male who presents to the ER via EMS with generalized weakness. The patient has a history of Afib, CHF, CKD, and currently receives dialysis. The patient reports that he started feeling fatigued and weak yesterday. He also reports that his BP was in the 80/40 range yesterday. This morning the patient felt too weak to walk which is what brought him to the ER. He reports right lower extremity erythema, bilateral lower extremity edema, abdominal edema, and diarrhea. The patient denies any pain or SOB at this time. 10/08/2020: Off dopamine and heparin infusion. States cellulitis feels improved. CT abdomen/pelvis showing large volume ascites, mild splenomegaly, anasarca. Discussed with GI, plan for paracentesis with abdominal fluid studies. We will continue managing fluid offloading by HD. Avoid AV peter blockers, and ACEI/ARB. During further work-up per GI, patient may be able to discharge tomorrow or the next day. Discussed with RN. 10/07/2020: Patient moved out of ICU to medical floors. In ICU, evaluation. No significant improvement in her cellulitis. Still on dopamine infusion; continue to wean. Discussed with GI, will obtain CT abdomen/pelvis for definitive impression about ascites. Discussed with Dr. Ruff, unsure how much urine patient makes at baseline, and if adding diuretics will be beneficial for any noted ascites. Continue treatment of cellulitis and staph bacteremia, per ID. 30 minutes critical care spent reviewing charts, reviewing labs, reviewing imaging, and discussion with consultants. 10/06/2020: Patient seen in ICU sitting upright in chair. States he feels well, currently breathing on 3 L nasal cannula. Discussed with Gastroenterology PA, further work-up pending to rule in or rule out cirrhosis. Limited abdominal Doppler showed no focal liver lesion, normal hepatopedal flow in the main, right and left portal veins. Patient had positive cultures with gram-positive cocci in 1 of 4 bottles; ID was consulted. Patient does note some improvement in his erythema, now below the right knee. We will continue Zosyn and vancomycin for now. He remains on dopamine infusion. 30 minutes critical care time spent reviewing charts, reviewing labs, reviewing imaging, discussion with GI, and discussion with RN. 10/05/2020: Patient seen in ICU, remains on vasopressors. Afebrile, breathing 3 L nasal cannula. Per cardiology, elevated troponins likely due to demand ischemia in this clinical setting. We will continue current treatment, Zosyn and vancomycin. Continue supportive care. Spoke with patient's by phone and addressed her concerns. Critical care time 30 minutes spent reviewing charts, reviewing labs, reviewing imaging, discussion with RN. 10/04/2020: Patient seen in ICU, afebrile. Currently breathing on 3 L nasal cannula and requiring vasopressors. Has no complaints today. Admits to some chronic diarrhea secondary to his history of Crohn's disease. Continue treatmen t cellulitis with Zosyn and vancomycin. Denies any sick contacts at home. Critical care time 30 minutes spent reviewing charts, reviewing labs, reviewing imaging, discussion with RN. Vitals/I&O Vitals/I&O: Vital Signs Date Time Temp Pulse Resp B/P (MAP) Pulse Ox O2 Delivery O2 Flow Rate FiO2 10/08/20 07:40 Nasal Cannula 3.0 10/08/20 07:00 97.7 53 18 108/53 (71) 99 97.7 I & O 10/07/20 10/07/20 10/08/20 15:00 23:00 07:00 Intake Total 250 ml 200 ml 50 ml Balance 250 ml 200 ml 50 ml Physical Exam Physical Exam: GENERAL: Alert, oriented x 3, pleasant male, lying in bed comfortably, in no acute distress. HEENT: Normocephalic, atraumatic. Anicteric. Dry eschar upper lip NECK: Supple. LUNGS: Decreased breath sounds at the bases. HDC catheter, right chest wall looks clean. HEART: Irregularly irregular, distant heart sounds. ABDOMEN: Mildly distended. Bowel sounds present, nontender, nondistended. EXTREMITIES: Bilateral lower extremity edema. Anasarca no cyanosis. Mild right lower extremity redness present. DERMATOLOGIC: Multiple skin breakdown, superficial bruises. No warmth. No generalized rash. Sacral decubItus not infected NEUROLOGIC: Alert, oriented x 3. Grossly nonfocal. Has generalized weakness. PSYCHIATRIC: Calm, cooperative. General: No acute distress Heart: Other (Irregular rhythm) Lungs: Clear Abdomen: Normal bowel sounds Extremities: No clubbing, No cyanosis Skin: Other (Bilateral lower extremity erythema, right greater than left.) Labs Labs: Laboratory Tests Test 10/07/20 12:25 10/07/20 13:32 10/07/20 17:03 10/07/20 20:35 Activated Partial Thromboplast Time 128 SEC (24-38) Glucose (Fingerstick) 94 mg/dL (70-99) 83 mg/dL (70-99) 109 mg/dL (70-99) Test 10/08/20 07:15 10/08/20 07:22 10/08/20 10:40 White Blood Count 4.3 x10^3/uL (4.0-11.0) Red Blood Count 2.99 x10^6/uL (4.30-5.70) Hemoglobin 9.2 g/dL (13.0-17.5) Hematocrit 28.9 % (39.0-53.0) Mean Corpuscular Volume 97 fL (79-100) Mean Corpuscular Hemoglobin 31 pg (25-35) Mean Corpuscular Hemoglobin Concent 32 g/dL (31-37) Red Cell Distribution Width 16.2 % (11.5-14.5) Platelet Count 153 x10^3/uL (140-400) Glucose (Fingerstick) 83 mg/dL (70-99) Prothrombin Time 16.0 SEC (11.7-14.0) Prothromb Time International Ratio 1.3 (0.8-1.1) Assessment and Plan Assessmemt and Plan Problems Medical Problems: (1) Cellulitis of right lower extremity Status: Acute (2) End-stage renal disease on hemodialysis Status: Acute (3) Hypotension Status: Acute Comment Review of Relevant I have reviewed the following items bernadine (where applicable) has been applied. Medications: Current Medications Medications (Trade) Dose Ordered Sig/Jose Route PRN Reason Start Time Stop Time Status Last Admin Dose Admin Midodrine (Proamatine) 5 mg [id number] PO 10/07/20 13:00 10/08/20 06:02 Aspirin (Ecotrin) 81 mg DAILYWBKFT PO 10/07/20 17:00 10/08/20 08:26 Justifications for Admission Other Justification Sepsis, right lower extremity cellulitis SANYD COOLEY MD Oct 08, 2020 12:08
--- NOTE | 2020-10-08 13:10 | NUR ---
Assumed care of patient from SALUD Solorzano. Patient currently off unit for procedure.
--- NOTE | 2020-10-08 13:46 | NUR ---
SS following up with discharge planning. SS reviewed pt chart and discussed with pt RN. Pt is currently requiring oxygen at three liters nasal canula. Pt has home oxygen. Pt on IV Vancomycin and IV Zosyn. Pt having Paracentesis today. PT/OT recommended retirement unit. Pt currently declining retirement unit at this time but is agreeable to home healthcare with no preference of company. Referral sent to [facility], ; fax [phone]. Pt accepted on services with [facility]. SS will continue to follow for discharge planning.
[2020-10-08] MEDS ORDERED: ALBUMIN HUMAN 25% 200 ML IV ONE (13:48)
[2020-10-08] MEDS ORDERED: ALBUMIN HUMAN 25% 100 ML IV ONE ×2 (14:15)
--- NOTE | 2020-10-08 14:30 | NUR ---
Patient returned to unit from procedure. No complaints of pain or SOB at this time. Patient has a bandaide CDI at the right lower abdomen s/p paracentesis. VS were checked and stable.
[2020-10-08 16:46] LABS: BF COLOR RED; BF SOURCE ASCITES
[2020-10-08 16:47] LABS: BF CLARITY TURBID; BF MON % 85 %; BF PMN % 15 %; BF RBC COUNT 138236 /cmm (Not Established); BF WBC COUNT 271 /cmm (Not Established)
--- NOTE | 2020-10-08 18:55 | RAD ---
Procedure: US GUIDED PARACENTESIS Clinical Indication: Ascites Anesthesia: Local anesthesia only. Continuous cardiopulmonary monitoring was performed by independent qualified nursing personnel. Complications: None Consent: The procedure was explained in its entirety to the patient or the patients designated repre sentative by a member of the treatment team, including a discussion of the risks, benefits and common ly accepted alternatives to the procedure, as well as the expected consequences of no therapy whatsoe jaguar. Discussion of the risks included, but was not limited to, those that are most frequent and those that are rare but possibly severe or life-threatening, as well as the possibility of unforeseen comp lications. All questions were answered and informed consent was obtained. Sterility: All elements of maximal sterile barrier technique including the use of a cap, mask, steril e gown, sterile gloves, appropriate hand hygiene, and 2% chlorhexidine for cutaneous antisepsis (or a cceptable alternative antiseptic per current guidelines) were followed for this procedure. Patient was placed in the supine position. Limited ultrasound scanning over the abdomen to localize l argest pocket of ascites was performed. Overlying skin was marked with ultrasound and then sterilely prepped and draped. Local anesthesia with 1% lidocaine. A 5 Fr Yueh catheter was then entered into the ascites and 7.2 L of dark red-brown fluid was were obtained utilizing negative suction. Samples were sent for lab analysis. There were no immediate complications. Sterile dressing was placed. Impression: Right mid abdominal ultrasound-guided paracentesis, 7.2 L of dark red-brown fluid was removed. Electronically signed by: Chao Neal (10/08/2020 6:52 PM) [id number]
[2020-10-08] MEDS: ATORVASTATIN CALCIUM 40 MG TABLET. PO SCH (20:13)
[2020-10-09 03:24] VITALS: BP 95/45
[2020-10-09 04:27] LABS: HEMATOCRIT 28.7 % (39.0-53.0); HEMOGLOBIN 9.1 g/dL (13.0-17.5); RED BLOOD COUNT 2.98 x10^6/uL (4.30-5.70); RED CELL DISTRIBUTION WIDTH 16.4 % (11.5-14.5); WHITE BLOOD COUNT 4.5 x10^3/uL (4.0-11.0)
[2020-10-09 05:19] LABS: ALBUMIN 2.8 g/dL (3.4-5.0); ALBUMIN/GLOBULIN RATIO 0.6 (1.0-1.7); CALCIUM 8.5 mg/dL (8.5-10.1); CREATININE 6.1 mg/dL (0.7-1.3); GFR 9.1; POTASSIUM 3.9 mmol/L (3.5-5.1); TOTAL BILIRUBIN 0.5 mg/dL (0.2-1.0); TOTAL PROTEIN 7.4 g/dL (6.4-8.2)
[2020-10-09] MEDS: PIPERACILLIN/TAZOBACTAM 2.25 GM in IV NORMAL SALINE 50ML 50 ML IV SCH (06:01)
[2020-10-09] MEDS: MIDODRINE 5 MG TABLET PO SCH ×3 (06:06→17:38)
[2020-10-09] MEDS: PANTOPRAZOLE 40 MG TABLET.DR. PO SCH (06:06)
[2020-10-09 07:00] VITALS: BP 94/38
--- NOTE | 2020-10-09 08:30 | PDOC ---
Infectious Disease Note Subjective: Subjective pt says feels better since paracentesis yesterday eager for dc home today Vital Signs: Vital Signs Vital Signs Date Time Temp Pulse Resp B/P (MAP) Pulse Ox O2 Delivery O2 Flow Rate FiO2 10/09/20 07:00 97.5 52 18 94/38 (56) 98 Nasal Cannula 3.0 97.5 Physical Exam: PHYSICAL EXAM GENERAL: Alert, oriented x 3, pleasant male, lying in bed comfortably, in no acute distress. HEENT: Normocephalic, atraumatic. Anicteric. Dry eschar upper lip NECK: Supple. LUNGS: Decreased breath sounds at the bases. HDC catheter, right chest wall looks clean. HEART: Irregularly irregular, distant heart sounds. ABDOMEN: Bowel sounds present, nontender, nondistended. EXTREMITIES: Bilateral lower extremity edema. Improved no cyanosis. Mild right lower extremity redness present. DERMATOLOGIC: Multiple skin breakdown, superficial bruises. No warmth. No generalized rash. Sacral decubItus not infected NEUROLOGIC: Alert, oriented x 3. Grossly nonfocal. PSYCHIATRIC: Calm, cooperative. Medications: Inpatient Meds: Medications reviewed. Labs: Lab Laboratory Tests Test 10/08/20 10:40 10/08/20 12:18 10/08/20 13:30 10/08/20 16:45 Prothrombin Time 16.0 SEC (11.7-14.0) Prothromb Time International Ratio 1.3 (0.8-1.1) Glucose (Fingerstick) 86 mg/dL (70-99) 103 mg/dL (70-99) Body Fluid Source Ascites Body Fluid Color Red Body Fluid Clarity Turbid Body Fluid Nucleated Cells 271 /cmm (Not Established) Body Fluid Mononuclear WBCs (%) 85 % Body Fluid Polymorphonuclear Cells 15 % Body Fluid Total RBCs Counted [id number] /cmm (Not Test 10/09/20 04:00 White Blood Count 4.5 x10^3/uL (4.0-11.0) Red Blood Count 2.98 x10^6/uL (4.30-5.70) Hemoglobin 9.1 g/dL (13.0-17.5) Hematocrit 28.7 % (39.0-53.0) Mean Corpuscular Volume 96 fL (79-100) Mean Corpuscular Hemoglobin 30 pg (25-35) Mean Corpuscular Hemoglobin Concent 32 g/dL (31-37) Red Cell Distribution Width 16.4 % (11.5-14.5) Platelet Count 145 x10^3/uL (140-400) Sodium Level 138 mmol/L (136-145) Potassium Level 3.9 mmol/L (3.5-5.1) Chloride Level 100 mmol/L (98-107) Carbon Dioxide Level 27 mmol/L (21-32) Anion Gap 11 (6-14) Blood Urea Nitrogen 46 mg/dL (8-26) Creatinine 6.1 mg/dL (0.7-1.3) Estimated GFR (Cockcroft-Gault) 9.1 BUN/Creatinine Ratio 8 (6-20) Glucose Level 122 mg/dL (70-99) Calcium Level 8.5 mg/dL (8.5-10.1) Total Bilirubin 0.5 mg/dL (0.2-1.0) Aspartate Amino Transf (AST/SGOT) 18 U/L (15-37) Alanine Aminotransferase (ALT/SGPT) 14 U/L (16-63) Alkaline Phosphatase 101 U/L (46-116) Total Protein 7.4 g/dL (6.4-8.2) Albumin 2.8 g/dL (3.4-5.0) Albumin/Globulin Ratio 0.6 (1.0-1.7) Objective: Assessment: 1. Sepsis. 2. Leukocytosis. 3. Hypotension. 4. Peptostreptococcus bacteremia.1/4 bottles 5. Bilateral lower extremity swelling with right lower extremity cellulitis 6. Atrial fibrillation.Congestive heart failure. 7. End-stage renal disease, on hemodialysis. 8. Cirrhosis. Status post paracentesis 9. Diabetes mellitus. 10. Pressure ulcer. 11. Obstructive sleep apnea, on home O2. 12. Anemia. 13. Elevated troponin, demand ischemia. 14. Anasarca. Plan: Plan of Care DC Zosyn and vancomycin Augmentin for 10 days Patient can be discharged home from ID standpoint Discussed with ROBERT ANAYA MD Oct 09, 2020 08:30
[2020-10-09] MEDS: GABAPENTIN 300 MG CAPSULE. PO SCH (08:42)
[2020-10-09] MEDS: LACTOBACILLUS RHAMNOSUS GG 1 CAPSULE. PO SCH (08:42)
[2020-10-09] MEDS: CHOLECALCIFEROL (VITAMIN D3) 1,000 UNIT TABLET PO SCH (08:42)
[2020-10-09] MEDS: ASPIRIN ENTERIC COATED 81 MG TABLET.DR. PO SCH (08:42)
[2020-10-09 11:00] VITALS: BP 102/42
[2020-10-09] MEDS ORDERED: 0.9 % SODIUM CHLORIDE 10 ML DISP.SYRIN. IV PRN ×2 (11:45)
[2020-10-09] MEDS ORDERED: IV NORMAL SALINE 1000ML BAG 1,000 ML IV PRN ×2 (11:45)
[2020-10-09] MEDS ORDERED: ALBUMIN HUMAN 25% 200 ML IV PRN (11:45)
[2020-10-09] MEDS ORDERED: DIALYSIS PATIENT. MC PRN ×2 (11:45)
[2020-10-09] MEDS ORDERED: AMOXICILLIN/K CLAV 500/125MG TABLET. PO SCH (12:00)
--- NOTE | 2020-10-09 12:26 | PDOC ---
[employer] PROGRESS NOTE Date of Service DOS: DATE: 10/09/20 TIME: 12:23 Chief Complaint Chief Complaint Sepsis Hemodynamic instability Right lower extremity cellulitis Acute volume overload Elevated troponins, likely type II demand ischemia, possible NSTEMI Anasarca Acute electrolyte derangement due to ESRD Right buttock ulcers concerning for pressure ulcers Concern for caregiver burden ESRD TTS Atrial fibrillation on Eliquis History of diabetes mellitus type 2 Dyslipidemia Hypertension CABG ALESIA Anemia due to ESRD Obesity class I Large volume ascites Admit to telemetry with hospitalist to manage Cardiology consult for non-STEMI Nephrology consult for hemodialysis We will likely start p.o. vasopressor midodrine in the meantime if there is no response, will likely need to start vasopressor or remove more fluid Continue empiric IV antibiotics Pending blood cultures Strict I's and O's Avoid nephrotoxic agents Heparin drip for DVT prophylaxis Protonix GI prophylaxis ADA diet Full code Discussed with RN and SW Disposition patient management as above Surrogate decision maker is History of Present Illness History of Present Illness 74 year old male who presents to the ER via EMS with generalized weakness. The patient has a history of Afib, CHF, CKD, and currently receives dialysis. The patient reports that he started feeling fatigued and weak yesterday. He also reports that his BP was in the 80/40 range yesterday. This morning the patient felt too weak to walk which is what brought him to the ER. He reports right lower extremity erythema, bilateral lower extremity edema, abdominal edema, and diarrhea. The patient denies any pain or SOB at this time. 10/09/2020: Patient feeling well, no complaints today. Had ultrasound-guided paracentesis with 7.2 L of dark red-brown fluid was removed. He may discharge on Augmentin 500 mg twice daily x10 days 7, and follow-up with GI as outpatient. Greater than 30 minutes spent managing the discharge of of this patient. 10/08/2020: Off dopamine and heparin infusion. States cellulitis feels improved. CT abdomen/pelvis showing large volume ascites, mild splenomegaly, anasarca. Discussed with GI, plan for paracentesis with abdominal fluid studies. We will continue managing fluid offloading by HD. Avoid AV peter blockers, and ACEI/ARB. During further work-up per GI, patient may be able to discharge tomorrow or the next day. Discussed with RN. 10/07/2020: Patient moved out of ICU to medical floors. In ICU, evaluation. No significant improvement in her cellulitis. Still on dopamine infusion; continue to wean. Discussed with GI, will obtain CT abdomen/pelvis for definitive impression about ascites. Discussed with Dr. Ruff, unsure how much urine patient makes at baseline, and if adding diuretics will be beneficial for any noted ascites. Continue treatment of cellulitis and staph bacteremia, per ID. 30 minutes critical care spent reviewing charts, reviewing labs, reviewing imaging, and discussion with consultants. 10/06/2020: Patient seen in ICU sitting upright in chair. States he feels well, currently breathing on 3 L nasal cannula. Discussed with Gastroenterology PA, further work-up pending to rule in or rule out cirrhosis. Limited abdominal Doppler showed no focal liver lesion, normal hepatopedal flow in the main, right and left portal veins. Patient had positive cultures with gram-positive cocci in 1 of 4 bottles; ID was consulted. Patient does note some improvement in his erythema, now below the right knee. We will continue Zosyn and vancomycin for now. He remains on dopamine infusion. 30 minutes critical care time spent reviewing charts, reviewing labs, reviewing imaging, discussion with GI, and discussion with RN. 10/05/2020: Patient seen in ICU, remains on vasopressors. Afebrile, breathing 3 L nasal cannula. Per cardiology, elevated troponins likely due to demand ischemia in this clinical setting. We will continue current treatment, Zosyn and vancomycin. Continue supportive care. Spoke with patient's by phone and addressed her concerns. Critical care time 30 minutes spent reviewing charts, reviewing labs, reviewing imaging, discussion with RN. 10/04/2020: Patient seen in ICU, afebrile. Currently breathing on 3 L nasal cannula and requiring vasopressors. Has no complaints today. Admits to some chronic diarrhea secondary to his history of Crohn's disease. Continue treatment cellulitis with Zosyn and vancomycin. Denies any sick contacts at [facility]. Critical care time 30 minutes spent reviewing charts, reviewing labs, reviewing imaging, discussion with RN. Vitals/I&O Vitals/I&O: Vital Signs Date Time Temp Pulse Resp B/P (MAP) Pulse Ox O2 Delivery O2 Flow Rate FiO2 10/09/20 11:00 97.3 47 18 102/42 (62) 100 Nasal Cannula 3.0 97.3 I & O 10/08/20 10/08/20 10/09/20 15:00 23:00 07:00 Intake Total 510 ml 360 ml 340 ml Output Total 7200 ml Balance -6690 ml 360 ml 340 ml Physical Exam Physical Exam: GENERAL: Alert, oriented x 3, pleasant male, lying in bed comfortably, in no acute distress. HEENT: Normocephalic, atraumatic. Anicteric. Dry eschar upper lip NECK: Supple. LUNGS: Decreased breath sounds at the bases. HDC catheter, right chest wall looks clean. HEART: Irregularly irregular, distant heart sounds. ABDOMEN: Bowel sounds present, nontender, nondistended. EXTREMITIES: Bilateral lower extremity edema. Improved no cyanosis. Mild right lower extremity redness present. DERMATOLOGIC: Multiple skin breakdown, superficial bruises. No warmth. No generalized rash. Sacral decubItus not infected NEUROLOGIC: Alert, oriented x 3. Grossly nonfocal. PSYCHIATRIC: Calm, cooperative. General: No acute distress Heart: Other (Irregular rhythm) Lungs: Clear Abdomen: Normal bowel sounds Extremities: No clubbing, No cyanosis Skin: Other (Bilateral lower extremity erythema, right greater than left.) Labs Labs: Laboratory Tests Test 10/08/20 13:30 10/08/20 16:45 10/09/20 04:00 Body Fluid Source Ascites Body Fluid Color Red Body Fluid Clarity Turbid Body Fluid Nucleated Cells 271 /cmm (Not Established) Body Fluid Mononuclear WBCs (%) 85 % Body Fluid Polymorphonuclear Cells 15 % Body Fluid Total RBCs Counted 122203 /cmm (Not Glucose (Fingerstick) 103 mg/dL (70-99) White Blood Count 4.5 x10^3/uL (4.0-11.0) Red Blood Count 2.98 x10^6/uL (4.30-5.70) Hemoglobin 9.1 g/dL (13.0-17.5) Hematocrit 28.7 % (39.0-53.0) Mean Corpuscular Volume 96 fL (79-100) Mean Corpuscular Hemoglobin 30 pg (25-35) Mean Corpuscular Hemoglobin Concent 32 g/dL (31-37) Red Cell Distribution Width 16.4 % (11.5-14.5) Platelet Count 145 x10^3/uL (140-400) Sodium Level 138 mmol/L (136-145) Potassium Level 3.9 mmol/L (3.5-5.1) Chloride Level 100 mmol/L (98-107) Carbon Dioxide Level 27 mmol/L (21-32) Anion Gap 11 (6-14) Blood Urea Nitrogen 46 mg/dL (8-26) Creatinine 6.1 mg/dL (0.7-1.3) Estimated GFR (Cockcroft-Gault) 9.1 BUN/Creatinine Ratio 8 (6-20) Glucose Level 122 mg/dL (70-99) Calcium Level 8.5 mg/dL (8.5-10.1) Total Bilirubin 0.5 mg/dL (0.2-1.0) Aspartate Amino Transf (AST/SGOT) 18 U/L (15-37) Alanine Aminotransferase (ALT/SGPT) 14 U/L (16-63) Alkaline Phosphatase 101 U/L (46-116) Total Protein 7.4 g/dL (6.4-8.2) Albumin 2.8 g/dL (3.4-5.0) Albumin/Globulin Ratio 0.6 (1.0-1.7) Assessment and Plan Assessmemt and Plan Problems Medical Problems: (1) Cellulitis of right lower extremity Status: Acute (2) End-stage renal disease on hemodialysis Status: Acute (3) Hypotension Status: Acute Comment Review of Relevant I have reviewed the following items bernadine (where applicable) has been applied. Medications: Current Medications Medications (Trade) Dose Ordered Sig/Jose Route PRN Reason Start Time Stop Time Status Last Admin Dose Admin Albumin Human 100 ml @ 100 mls/hr 1X ONCE IV 10/08/20 14:15 10/08/20 15:14 DC 10/08/20 13:55 Albumin Human 100 ml @ 100 mls/hr 1X ONCE IV 10/08/20 14:15 10/08/20 15:14 DC 10/08/20 14:23 Justifications for Admission Other Justification Sepsis, right lower extremity cellulitis SANDY COOLEY MD Oct 09, 2020 12:26
--- NOTE | 2020-10-09 14:21 | PDOC ---
Dialysis Progress Note Date of Service: DATE: 10/09/20 TIME: 14:19 Dialysis Note Dialysis Note Seen on Hemodialysis, tolerating treatment Ok so far Vitals on Hemodialysis: 95/46 60 General Appearance: Awake: Alert Oriented x 3 Neck: No JVD or JVP Chest: CTA Elia Heart: S1 S2 Abdomen - Soft NT min distended Extremities - No Edema ESRD: Dialysis as below F 180 NR 3.5 Hrs 4 K 2.5 Ca 140 Na 35 HC03 Qb 350 + Qd 500+ Heparin 0 Units Uf 1 Kgs or to dry weight as tolerated Transfuse 25 g of 25% albumin to maintain Hemodynamic stability in light of recent paracentesis Treatment plan reviewed and discussed with assembly line machine operator Vitals Vital Signs Vital Signs Date Time Temp Pulse Resp B/P (MAP) Pulse Ox O2 Delivery O2 Flow Rate FiO2 10/09/20 13:03 56 104/50 10/09/20 11:00 97.3 18 100 Nasal Cannula 3.0 97.3 Labs Last Labs Laboratory Tests Test 10/07/20 17:03 10/07/20 20:35 10/08/20 07:15 10/08/20 07:22 Glucose (Fingerstick) 83 mg/dL (70-99) 109 mg/dL (70-99) 83 mg/dL (70-99) White Blood Count 4.3 x10^3/uL (4.0-11.0) Red Blood Count 2.99 x10^6/uL (4.30-5.70) Hemoglobin 9.2 g/dL (13.0-17.5) Hematocrit 28.9 % (39.0-53.0) Mean Corpuscular Volume 97 fL (79-100) Mean Corpuscular Hemoglobin 31 pg (25-35) Mean Corpuscular Hemoglobin Concent 32 g/dL (31-37) Red Cell Distribution Width 16.2 % (11.5-14.5) Platelet Count 153 x10^3/uL (140-400) Test 10/08/20 10:40 10/08/20 12:18 10/08/20 13:30 10/08/20 16:45 Prothrombin Time 16.0 SEC (11.7-14.0) Prothromb Time International Ratio 1.3 (0.8-1.1) Glucose (Fingerstick) 86 mg/dL (70-99) 103 mg/dL (70-99) Body Fluid Source Ascites Body Fluid Color Red Body Fluid Clarity Turbid Body Fluid Nucleated Cells 271 /cmm (Not Established) Body Fluid Mononuclear WBCs (%) 85 % Body Fluid Polymorphonuclear Cells 15 % Body Fluid Total RBCs Counted 721541 /cmm (Not Test 10/09/20 04:00 White Blood Count 4.5 x10^3/uL (4.0-11.0) Red Blood Count 2.98 x10^6/uL (4.30-5.70) Hemoglobin 9.1 g/dL (13.0-17.5) Hematocrit 28.7 % (39.0-53.0) Mean Corpuscular Volume 96 fL (79-100) Mean Corpuscular Hemoglobin 30 pg (25-35) Mean Corpuscular Hemoglobin Concent 32 g/dL (31-37) Red Cell Distribution Width 16.4 % (11.5-14.5) Platelet Count 145 x10^3/uL (140-400) Sodium Level 138 mmol/L (136-145) Potassium Level 3.9 mmol/L (3.5-5.1) Chloride Level 100 mmol/L (98-107) Carbon Dioxide Level 27 mmol/L (21-32) Anion Gap 11 (6-14) Blood Urea Nitrogen 46 mg/dL (8-26) Creatinine 6.1 mg/dL (0.7-1.3) Estimated GFR (Cockcroft-Gault) 9.1 BUN/Creatinine Ratio 8 (6-20) Glucose Level 122 mg/dL (70-99) Calcium Level 8.5 mg/dL (8.5-10.1) Total Bilirubin 0.5 mg/dL (0.2-1.0) Aspartate Amino Transf (AST/SGOT) 18 U/L (15-37) Alanine Aminotransferase (ALT/SGPT) 14 U/L (16-63) Alkaline Phosphatase 101 U/L (46-116) Total Protein 7.4 g/dL (6.4-8.2) Albumin 2.8 g/dL (3.4-5.0) Albumin/Globulin Ratio 0.6 (1.0-1.7) Laboratory Tests Test 10/08/20 16:45 10/09/20 04:00 Glucose (Fingerstick) 103 mg/dL (70-99) White Blood Count 4.5 x10^3/uL (4.0-11.0) Red Blood Count 2.98 x10^6/uL (4.30-5.70) Hemoglobin 9.1 g/dL (13.0-17.5) Hematocrit 28.7 % (39.0-53.0) Mean Corpuscular Volume 96 fL (79-100) Mean Corpuscular Hemoglobin 30 pg (25-35) Mean Corpuscular Hemoglobin Concent 32 g/dL (31-37) Red Cell Distribution Width 16.4 % (11.5-14.5) Platelet Count 145 x10^3/uL (140-400) Sodium Level 138 mmol/L (136-145) Potassium Level 3.9 mmol/L (3.5-5.1) Chloride Level 100 mmol/L (98-107) Carbon Dioxide Level 27 mmol/L (21-32) Anion Gap 11 (6-14) Blood Urea Nitrogen 46 mg/dL (8-26) Creatinine 6.1 mg/dL (0.7-1.3) Estimated GFR (Cockcroft-Gault) 9.1 BUN/Creatinine Ratio 8 (6-20) Glucose Level 122 mg/dL (70-99) Calcium Level 8.5 mg/dL (8.5-10.1) Total Bilirubin 0.5 mg/dL (0.2-1.0) Aspartate Amino Transf (AST/SGOT) 18 U/L (15-37) Alanine Aminotransferase (ALT/SGPT) 14 U/L (16-63) Alkaline Phosphatase 101 U/L (46-116) Total Protein 7.4 g/dL (6.4-8.2) Albumin 2.8 g/dL (3.4-5.0) Albumin/Globulin Ratio 0.6 (1.0-1.7) Assessment Assessment Problems Medical Problems: (1) Cellulitis of right lower extremity Status: Acute (2) End-stage renal disease on hemodialysis Status: Acute (3) Hypotension Status: Acute Plan Plan of Care Problems Medical Problems: (1) Cellulitis of right lower extremity Status: Acute (2) End-stage renal disease on hemodialysis Status: Acute (3) Hypotension Status: Acute SERVANDO HARTMANN MD Oct 09, 2020 14:21
--- NOTE | 2020-10-09 14:37 | PDOC3 ---
Discharge Summary Visit Information Date of Admission: Oct 03, 2020 Date of Discharge: Oct 09, 2020 Final Diagnosis Problems Medical Problems: (1) Cellulitis of right lower extremity Status: Acute (2) End-stage renal disease on hemodialysis Status: Acute (3) Hypotension Status: Acute Brief Hospital Course Allergies Allergies Coded Allergies Type Severity Reaction Last Updated Verified furosemide Allergy Severe Swelling 04/07/19 Yes amlodipine Allergy Intermediate Swelling 04/07/19 Yes infliximab Allergy Intermediate rash 04/07/19 Yes azathioprine Adverse Reaction Intermediate n/v 10/07/20 Yes Vital Signs Vital Signs Date Time Temp Pulse Resp B/P (MAP) Pulse Ox O2 Delivery O2 Flow Rate FiO2 10/09/20 13:03 56 104/50 10/09/20 11:00 97.3 18 100 Nasal Cannula 3.0 97.3 Lab Results Laboratory Tests Test 10/07/20 17:03 10/07/20 20:35 10/08/20 07:15 10/08/20 07:22 Glucose (Fingerstick) 83 mg/dL (70-99) 109 mg/dL (70-99) 83 mg/dL (70-99) White Blood Count 4.3 x10^3/uL (4.0-11.0) Red Blood Count 2.99 x10^6/uL (4.30-5.70) Hemoglobin 9.2 g/dL (13.0-17.5) Hematocrit 28.9 % (39.0-53.0) Mean Corpuscular Volume 97 fL (79-100) Mean Corpuscular Hemoglobin 31 pg (25-35) Mean Corpuscular Hemoglobin Concent 32 g/dL (31-37) Red Cell Distribution Width 16.2 % (11.5-14.5) Platelet Count 153 x10^3/uL (140-400) Test 10/08/20 10:40 10/08/20 12:18 10/08/20 13:30 10/08/20 16:45 Prothrombin Time 16.0 SEC (11.7-14.0) Prothromb Time International Ratio 1.3 (0.8-1.1) Glucose (Fingerstick) 86 mg/dL (70-99) 103 mg/dL (70-99) Body Fluid Source Ascites Body Fluid Color Red Body Fluid Clarity Turbid Body Fluid Nucleated Cells 271 /cmm (Not Established) Body Fluid Mononuclear WBCs (%) 85 % Body Fluid Polymorphonuclear Cells 15 % Body Fluid Total RBCs Counted 191740 /cmm (Not Test 10/09/20 04:00 White Blood Count 4.5 x10^3/uL (4.0-11.0) Red Blood Count 2.98 x10^6/uL (4.30-5.70) Hemoglobin 9.1 g/dL (13.0-17.5) Hematocrit 28.7 % (39.0-53.0) Mean Corpuscular Volume 96 fL (79-100) Mean Corpuscular Hemoglobin 30 pg (25-35) Mean Corpuscular Hemoglobin Concent 32 g/dL (31-37) Red Cell Distribution Width 16.4 % (11.5-14.5) Platelet Count 145 x10^3/uL (140-400) Sodium Level 138 mmol/L (136-145) Potassium Level 3.9 mmol/L (3.5-5.1) Chloride Level 100 mmol/L (98-107) Carbon Dioxide Level 27 mmol/L (21-32) Anion Gap 11 (6-14) Blood Urea Nitrogen 46 mg/dL (8-26) Creatinine 6.1 mg/dL (0.7-1.3) Estimated GFR (Cockcroft-Gault) 9.1 BUN/Creatinine Ratio 8 (6-20) Glucose Level 122 mg/dL (70-99) Calcium Level 8.5 mg/dL (8.5-10.1) Total Bilirubin 0.5 mg/dL (0.2-1.0) Aspartate Amino Transf (AST/SGOT) 18 U/L (15-37) Alanine Aminotransferase (ALT/SGPT) 14 U/L (16-63) Alkaline Phosphatase 101 U/L (46-116) Total Protein 7.4 g/dL (6.4-8.2) Albumin 2.8 g/dL (3.4-5.0) Albumin/Globulin Ratio 0.6 (1.0-1.7) Laboratory Tests Test 10/08/20 16:45 10/09/20 04:00 Glucose (Fingerstick) 103 mg/dL (70-99) White Blood Count 4.5 x10^3/uL (4.0-11.0) Red Blood Count 2.98 x10^6/uL (4.30-5.70) Hemoglobin 9.1 g/dL (13.0-17.5) Hematocrit 28.7 % (39.0-53.0) Mean Corpuscular Volume 96 fL (79-100) Mean Corpuscular Hemoglobin 30 pg (25-35) Mean Corpuscular Hemoglobin Concent 32 g/dL (31-37) Red Cell Distribution Width 16.4 % (11.5-14.5) Platelet Count 145 x10^3/uL (140-400) Sodium Level 138 mmol/L (136-145) Potassium Level 3.9 mmol/L (3.5-5.1) Chloride Level 100 mmol/L (98-107) Carbon Dioxide Level 27 mmol/L (21-32) Anion Gap 11 (6-14) Blood Urea Nitrogen 46 mg/dL (8-26) Creatinine 6.1 mg/dL (0.7-1.3) Estimated GFR (Cockcroft-Gault) 9.1 BUN/Creatinine Ratio 8 (6-20) Glucose Level 122 mg/dL (70-99) Calcium Level 8.5 mg/dL (8.5-10.1) Total Bilirubin 0.5 mg/dL (0.2-1.0) Aspartate Amino Transf (AST/SGOT) 18 U/L (15-37) Alanine Aminotransferase (ALT/SGPT) 14 U/L (16-63) Alkaline Phosphatase 101 U/L (46-116) Total Protein 7.4 g/dL (6.4-8.2) Albumin 2.8 g/dL (3.4-5.0) Albumin/Globulin Ratio 0.6 (1.0-1.7) Brief Hospital Course Mr. Lee is a 74 old male who presented with sepsis, right lower extremity cellulitis, acute volume overload, abdominal ascites concerning for cirrhosis, atrial fibrillation, ESRD on HD. Suggestions placed to cardiology, nephrology, ID, and GI. He was treated with Zosyn and vancomycin with improvement in his cellulitis. Continue his regular hemodialysis regimen. Had echocardiogram that showed normal left ventricular size and function, with ejection fraction 50%. CT abdomen/pelvis was obtained that showed large volume ascites, anasarca, mild splenomegaly. He had paracentesis with abdominal fluid studies. Per cardiology, he was recommended to continue midodrine, secondary prevention with statin, aspirin. Avoid AV peter blocking agents, avoid ACEi/ARB, and to follow-up at [facility] for outpatient skin evaluation. He was stable to discharge home on Augmentin 500 mg twice daily x10 days. Discharge Information Condition at Discharge: Improved Follow Up: Weeks Disposition/Orders: D/C to Home Scheduled Adalimumab (Humira) 40 Mg/0.8 Ml Pen.ij.kit, 1 SYR SQ Q2WKS, #6 Ref 3 (Reported) Entered as Reported by: WILL OLIVEIRA on 01/15/172121 Apixaban (Eliquis) 5 Mg Tablet, 5 MG PO BID for blood thinner, s/p CABG, Hx AF, (Reported) Entered as Reported by: FOREST MACHUCA on 03/22/202006 Aspirin (Aspirin) 81 Mg Tab.chew, 1 TAB PO DAILY for afib, #30 Ref 3 (Reported) Entered as Reported by: NEDRA KIM on 10/15/18 1609 Atorvastatin Calcium (Atorvastatin Calcium) 40 Mg Tablet, 1 TAB PO HS, #30 Ref 5 (Reported) Entered as Reported by: IWLL OLIVEIRA on 01/15/172118 Last Action: Continued on 10/03/20 1249 by FLASH BORGES MD Cholecalciferol (Vitamin D3) (Vitamin D3) 1,000 Unit Tablet, 2,000 UNIT PO DAILY for vitamin, (Reported) Entered as Reported by: WILL OLIVEIRA on 01/15/172123 Last Action: Continued on 10/03/20 1249 by FLASH BORGES MD Cyanocobalamin (Vitamin B-12) (Cyanocobalamin Injection) 1,000 Mcg/1 Ml Vial, 1,000 MCG IJ QMONTH, (Reported) Entered as Reported by: TAYLOR HAMMER on 07/11/17 0032 Ferrous Sulfate (Ferrous Sulfate) 325 Mg Tablet, 324 MG PO BID for anemia, (Reported) Entered as Reported by: PAOLA KELLY RN on 02/04/19 171 Gabapentin (Gabapentin) 300 Mg Capsule, 300 MG PO BID for NEUROGENIC PAIN, (Reported) Entered as Reported by: FOREST MACHUCA on 03/22/202006 Last Action: Continued on 10/03/20 1249 by FLASH BORGES MD Omeprazole (Omeprazole) 40 Mg Capsule.dr, 1 CAP PO DAILY, #30 Ref 3 (Reported) Entered as Reported by: WILL OLIVEIRA on 01/15/172121 Last Action: Converted on 10/03/20 1249 by FLASH BORGES MD Torsemide (Torsemide) 20 Mg Tablet, 1 TAB PO BID for diuretic, #90 Ref 1 (Reported) Entered as Reported by: Amara Connor on 03/28/19 1037 Scheduled PRN Albuterol Sulfate (Proair Hfa) 8.5 Gm Hfa.aer.ad, 2.5 MG NEB PRN Q4HRS PRN for SHORTNESS OF BREATH, #1 Prescribed by: CALVIN PARKER on 02/07/19 0855 Hydrocodone Bit/Acetaminophen (Hydrocodone-Apap 7.5-325 ) 1 Each Tablet, 1 TAB PO PRN Q6HRS PRN for PAIN, Ref 0 (Reported) Entered as Reported by: TAYLOR HAMMER on 07/11/17 0032 Last Action: Continued on 10/03/20 1249 by FLASH BORGES MD Justicifation of Admission Dx: Justifications for Admission: Justification of Admission Dx: N/A SANDY COOLEY MD Oct 09, 2020 14:36
[2020-10-09] MEDS ORDERED: MIDO5TAB4 PO (14:49)
[2020-10-09] MEDS ORDERED: AMOX1TAB10 PO (14:49)
[2020-10-09 17:38] VITALS: BP 99/50
--- NOTE | 2020-10-11 11:17 | PDOC ---
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 Loen. 75 mcg fentanyl, 50 mg Ketamine, and 100mg Propofol titrated during the procedure. Pt taken to ICU post procedure. !75 mcg Fentanyl wasted with Dr Cisneros at end of procedure. Justifications for Admission Other Justification Sepsis, right lower extremity cellulitis DIEGO SMITH CRNA Oct 11, 2020 11:17
== END 2020-10-09 18:10 | disposition home or self-care (01) | DRG 871 ==
LOC: ER 07:12 → ED HOLD 09:30 → 1 WEST ICU 16:35 → 2 NORTH 10-06 18:17
PROVIDERS: ADMIT Internal Medicine; ATTEND Internal Medicine
PROC: 5A1D70Z Performance of Urinary Filtration, Intermittent, Less than 6 Hours Per Day (ICD-10-PCS; 2020-10-04)
PROC: 5A1D70Z Performance of Urinary Filtration, Intermittent, Less than 6 Hours Per Day (ICD-10-PCS; 2020-10-05)
PROC: 5A1D70Z Performance of Urinary Filtration, Intermittent, Less than 6 Hours Per Day (ICD-10-PCS; 2020-10-07)
PROC: 0W9G3ZZ Drainage of Peritoneal Cavity, Percutaneous Approach (ICD-10-PCS; 2020-10-08)
PROC: 5A1D70Z Performance of Urinary Filtration, Intermittent, Less than 6 Hours Per Day (ICD-10-PCS; principal; 2020-10-09)
DX: A41.2 Sepsis due to unspecified staphylococcus (principal); N18.6 End stage renal disease; I21.4 Non-ST elevation (NSTEMI) myocardial infarction; I50.33 Acute on chronic diastolic (congestive) heart failure; D68.9 Coagulation defect, unspecified; D84.821 Immunodeficiency due to drugs; I13.2 Hypertensive heart and chronic kidney disease with heart failure and with stage 5 chronic kidney disease, or end stage renal disease; I48.21 Permanent atrial fibrillation; K50.90 Crohn's disease, unspecified, without complications; L03.115 Cellulitis of right lower limb; R18.8 Other ascites; B96.89 Other specified bacterial agents as the cause of diseases classified elsewhere; D63.1 Anemia in chronic kidney disease; E11.22 Type 2 diabetes mellitus with diabetic chronic kidney disease; E66.9 Obesity, unspecified; E78.00 Pure hypercholesterolemia, unspecified; E78.5 Hyperlipidemia, unspecified; G47.33 Obstructive sleep apnea (adult) (pediatric); I07.1 Rheumatic tricuspid insufficiency; I25.10 Atherosclerotic heart disease of native coronary artery without angina pectoris; I25.2 Old myocardial infarction; I35.0 Nonrheumatic aortic (valve) stenosis; K21.9 Gastro-esophageal reflux disease without esophagitis; K57.90 Diverticulosis of intestine, part unspecified, without perforation or abscess without bleeding; K74.60 Unspecified cirrhosis of liver; L89.90 Pressure ulcer of unspecified site, unspecified stage; L98.419 Non-pressure chronic ulcer of buttock with unspecified severity; M41.9 Scoliosis, unspecified; M47.812 Spondylosis without myelopathy or radiculopathy, cervical region; M71.20 Synovial cyst of popliteal space [Baker], unspecified knee; M85.80 Other specified disorders of bone density and structure, unspecified site; N40.0 Benign prostatic hyperplasia without lower urinary tract symptoms; Z79.899 Other long term (current) drug therapy; Z82.49 Family history of ischemic heart disease and other diseases of the circulatory system; Z86.73 Personal history of transient ischemic attack (TIA), and cerebral infarction without residual deficits; Z87.891 Personal history of nicotine dependence; Z90.49 Acquired absence of other specified parts of digestive tract; Z95.1 Presence of aortocoronary bypass graft; Z95.3 Presence of xenogenic heart valve; Z95.5 Presence of coronary angioplasty implant and graft; Z99.2 Dependence on renal dialysis; M19.90 Unspecified osteoarthritis, unspecified site; I95.9 Hypotension, unspecified; Z88.8 Allergy status to other drugs, medicaments and biological substances; E88.09 Other disorders of plasma-protein metabolism, not elsewhere classified; I37.1 Nonrheumatic pulmonary valve insufficiency
CPT/HCPCS: 36415; 49083; 70450; 71045; 72125; 74176; 76700; 80048; 80053; 80202; 82105; 82150; 82553; 82945; 82962; 83605; 83615; 83735; 83880; 84100; 84157; 84484; 85007; 85025; 85027; 85520; 85610; 85730; 86140; 87040; 87071; 87075; 87076; 87205; 89050; 93005; 93306; 93971; 93976; 96365; 96366; 96368; 96375; 96376; J0882; J1265; J1644; J1815; J2250; J2543; J2704; J3010; J3370; J7040; P9046; 97110-GP; 97116-GP; 97530-GO; 97530-GP; 99291-25; G0378